=== PATIENT | female | born 1960 | race Caucasian/White ===

== ENCOUNTER 2016-09-28 15:50 | Inpatient (IN) | payer MEDICARE, OTHER ==
[2016-09-28] MEDS ORDERED: HYDROmorphone 1 MG/ML 1 ML SYRINGE IVP STA (16:22)
[2016-09-28] MEDS ORDERED: SODIUM CHLORIDE 0.9% 1,000 ML IV STA ×2 (16:22→17:25)
[2016-09-28] MEDS ORDERED: ONDANSETRON 4 MG/2 ML VIAL IVP STA (16:22)
--- NOTE | 2016-09-28 16:40 | ED ---
General Adult HPI - General Chief complaint: Dizziness Stated complaint: Chest Pain Time Seen by Provider: 09/28/16 16:00 Source: patient Mode of arrival: wheelchair Limitations: no limitations - History of Present Illness Initial comments: The patient is a 56-year-old female who presents to ED with a chief complaint of abdominal pain. Patient states that the pain is located in the epigastric area and right upper quadrant. Patient states the pain has been present over the course the past 3-4 days. She describes the pain as achy in nature. Patient notes that she's also been feeling more weak over the course of the past month. The patient states that she has had worsening dyspnea with exertion over this time. The patient states that she has an occasional fluttering sensation in her chest as well. She denies any overt chest pain. Patient does have an extensive medical history including several blood clots. Patient has an IVC filter in place. Patient is currently taking Coumadin. Patient has a history of stent placement in the left iliac with multiple revisions. Patient has a history of stent 4 placed within the heart. Patient denies any fevers or chills. She does state that it's been more difficult for her to eat. She states that she has nausea every time that she eats. She's had several episodes of vomiting as well. Patient denies any diarrhea. Patient denies any alcohol use. Patient was hospitalized last year with similar symptoms. Noted to have low potassium and magnesium at that point in time. - Related Data Home Medications Medication Instructions Recorded Confirmed Gabapentin 800 mg PO BID 12/14/13 09/28/16 Insulin Glargine [Lantus] 70 unit SQ QAM 12/14/13 09/28/16 Nitroglycerin Sl Tabs [Nitrostat] 0.4 mg SUBLINGUAL Q5M PRN 12/14/13 09/28/16 DULoxetine HCL [Cymbalta] 30 mg PO QAM 07/15/14 09/28/16 Metoprolol Tartrate [Lopressor] 12.5 mg PO DAILY 07/15/14 09/28/16 Furosemide 20 mg PO QAM 05/02/15 09/28/16 Hydrocodone/Acetaminophen 1 tab PO Q6H PRN 05/02/15 09/28/16 [Hydrocodon-Acetaminophn 10-325] Isosorbide Mononitrate ER [Imdur] 30 mg PO QAM 05/02/15 09/28/16 Ergocalciferol [Vitamin D2 50,000 unit PO [id number] 08/26/15 09/28/16 (DRISDOL)] Insulin Lispro [humaLOG Kwikpen] 18 unit SQ AC-TID 08/26/15 09/28/16 metFORMIN HCL 1,000 mg PO BID 08/26/15 09/28/16 Lisinopril [Zestril] 2.5 mg PO QAM 09/13/15 09/28/16 Aspirin EC [Ecotrin Low Dose] 81 mg PO DAILY 12/23/15 09/28/16 Rosuvastatin [Crestor] 10 mg PO HS 12/23/15 09/28/16 Warfarin [Coumadin] 2.5 mg PO TUFR 12/23/15 09/28/16 Warfarin [Coumadin] 7.5 mg PO SUMOWETHSA 12/23/15 09/28/16 Clopidogrel [Plavix] 75 mg PO DAILY 09/28/16 09/28/16 Potassium Chloride ER [K-Dur 20] 20 meq PO BID 09/28/16 09/28/16 traMADol HCL [Ultram] 100 mg PO Q8H PRN 09/28/16 09/28/16 Allergies Allergy/AdvReac Type Severity Reaction Status Date / Time No Known Allergies Allergy Verified 09/28/16 16:59 Review of Systems ROS Statement: Those systems with pertinent positive or pertinent negative responses have been documented in the HPI. ROS Other: All systems not noted in ROS Statement are negative. Constitutional: Reports: weakness. Denies: fever, chills Eyes: Denies: eye pain, eye discharge, vision change ENT: Denies: ear pain, throat pain, dental pain Respiratory: Denies: cough, dyspnea, wheezes Cardiovascular: Reports: palpitations, dyspnea on exertion. Denies: chest pain , syncope, paroxysmal nocturnal dyspnea Endocrine: Reports: fatigue Gastrointestinal: Reports: abdominal pain, nausea, vomiting. Denies: diarrhea, constipation, hematemesis, melena Genitourinary: Denies: urgency, dysuria, frequency, hematuria Musculoskeletal: Denies: back pain Skin: Denies: rash, lesions Neurological: Reports: weakness, paresthesias (throughout all extremities). Denies: headache Psychiatric: Denies: anxiety Past Medical History Past Medical History: Coronary Artery Disease (CAD), Chest Pain / Angina, COPD, Diabetes Mellitus, Deep Vein Thrombosis (DVT), GERD/Reflux, Hyperlipidemia, Hypertension, Myocardial Infarction (AR), Osteoarthritis (OA), Pulmonary Embolus (PE) Additional Past Medical History / Comment(s): Stomach pain.Mutiple DVT, mesentaric thrombosis x2,hx GENITAL WARTS, neuropathy,pad,chronic pain syndrome, ddd lumbar region w/radiculopathy, fell jun 2015 tore rt rotator cuff, pancreatitis,recent uti, non alcoholic fatty liver, poly neuropathy Last Myocardial Infarction Date:: 2010 History of Any Multi-Drug Resistant Organisms: None Reported Past Surgical History: Adenoidectomy, Section, Heart Catheterization, Heart Catheterization With Stent, Orthopedic Surgery, Tubal Ligation Additional Past Surgical History / Comment(s): 11 Stents in left leg, fistula left thigh, full mouth teeth extraction, TRAPEASE VENA CAVA FILTER, carpel tunnel, heart stents x3 rca and lad, tumor removal from uterus. Genital warts removed. Past Anesthesia/Blood Transfusion Reactions: No Reported Reaction Date of Last Stent Placement:: 2015 Past Psychological History: Depression Additional Psychological History / Comment(s): Depression r/t health issues. Smoking Status: Current every day smoker Past Alcohol Use History: None Reported Additional Past Alcohol Use History / Comment(s): STARTED SMOKING AT AGE 23. smoked 1/2-1 ppd, quit Apr 2016. Past Drug Use History: None Reported - Past Family History Mother Family Medical History: Cancer, Congestive Heart Failure (CHF), Diabetes Mellitus, Myocardial Infarction (AR) Father Family Medical History: Myocardial Infarction (AR) Sister(s) Family Medical History: Myocardial Infarction (AR) Son(s) Family Medical History: Deep Vein Thrombosis (DVT), Pulmonary Embolus General Exam Limitations: no limitations General appearance: alert, in no apparent distress Head exam: Present: atraumatic, normocephalic Eye exam: Present: normal appearance, PERRL, EOMI. Absent: scleral icterus, conjunctival injection Pupils: Present: normal accommodation ENT exam: Present: normal exam, mucous membranes dry Neck exam: Present: normal inspection Respiratory exam: Present: normal lung sounds bilaterally, chest wall tenderness (left upper chest). Absent: respiratory distress, wheezes, rales, rhonchi, stridor Cardiovascular Exam: Present: regular rate, normal rhythm. Absent: bradycardia , tachycardia GI/Abdominal exam: Present: soft, tenderness (tenderness in the epigastric region and RUQ). Absent: guarding, rebound Extremities exam: Present: normal inspection, full ROM Neurological exam: Present: alert, oriented X3 Psychiatric exam: Present: normal affect Skin exam: Present: warm, dry, intact Course Vital Signs 09/28/16 09/28/16 15:52 18:14 Temperature 97.8 F 98.4 F Pulse Rate 87 75 Respiratory 18 20 Rate Blood Pressure 125/78 119/70 O2 Sat by Pulse 99 96 Oximetry EKG Findings - EKG Comments: EKG Findings:: EKG demonstrates sinus R with a rate of 76. There are no concerning ST T changes the ID and QRS intervals are within normal limits. - EKG Results: EKG: interpreted by GRACE Medical Decision Making - Medical Decision Making Patient is a 56-year-old female who presents to the ED with a chief complaint of fatigue. Patient also complaining of abdominal pain. Pain is located in the epigastric region as well as the right upper quadrant. Patient cites nausea and vomiting associated with her pain. Patient denies any fevers or chills. Patient does have gallbladder. No history of cholecystitis. Patient has no swelling of her lower extremities. Patient does take Lasix on a regular basis. Consider possible electrolyte abnormalities. We'll check a TSH as well. Patient noting fluttering sensation in left upper chest that present for 3 days. We'll check troponin 1. Check BMP given the patient seems to be having worsening dyspnea with exertion. Patient does have history of blood clots with IVC filter. She is on Coumadin. We'll check PT/INR. Chest x-ray. Start patient on IV fluids. The patient with Dilaudid and Zofran for pain and nausea control. Check lactic acid given the patient has a history of mesenteric ischemia. 5:45 PM Patient noted to have elevated blood glucose. Will check Venous Blood Gas to ensure that patient is not in DKA. Patient noted to have elevated LFTs and Lipase. Concern for possible cholecystitis or gallstone pancreatitis. Bolus patient with IVF at 500cc/hr. Keep patient NPO. A/W Ultrasound. 6:27 PM Updated patient of findings. Ultrasound demonstrates no evidence of gallbladder wall thickening. Suspect that patient is suffering from gallstone pancreatitis. Patient notes that she did not take any of her insulin today. Will dose with Regular Insulin 10 units. 6:[address] Rosenberg, who accepts admission of patient. She requests that the patient be placed on Levaquin and Flagyl. She has requested that Dr. Maldonado be placed on consult from General Surgery. - Lab Data Result diagrams: 09/28/16 16:40 09/28/16 16:40 Lab Results 09/28/16 09/28/16 09/28/16 Range/Units 16:40 16:40 16:40 WBC 10.5 (3.8-10.6) k/uL RBC 5.26 (3.80-5.40) m/uL Hgb 15.2 (11.4-16.0) gm/dL Hct 45.3 (34.0-46.0) % MCV 86.0 (80.0-100.0) fL MCH 28.9 (25.0-35.0) pg MCHC 33.6 (31.0-37.0) g/dL RDW 13.9 (11.5-15.5) % Plt Count 179 (150-450) k/uL Neutrophils % 69 % Lymphocytes % 24 % Monocytes % 4 % Eosinophils % 1 % Basophils % 1 % Neutrophils # 7.2 (1.3-7.7) k/uL Lymphocytes # 2.6 (1.0-4.8) k/uL Monocytes # 0.4 (0-1.0) k/uL Eosinophils # 0.1 (0-0.7) k/uL Basophils # 0.1 (0-0.2) k/uL PT (9.0-12.0) sec INR (<1.1) Sodium 126 L (137-145) mmol/L Potassium 4.2 (3.5-5.1) mmol/L Chloride 87 L (98-107) mmol/L Carbon Dioxide 23 (22-30) mmol/L Anion Gap 16 mmol/L BUN 7 (7-17) mg/dL Creatinine 0.88 (0.52-1.04) mg/dL Est GFR (MDRD) Af Amer >60 (>60 ml/min/1.73 sqM) Est GFR (MDRD) Non-Af >60 (>60 ml/min/1.73 sqM) Glucose 609 H* (74-99) mg/dL Calcium 9.2 (8.4-10.2) mg/dL Magnesium 1.4 L (1.6-2.3) mg/dL Total Bilirubin 0.9 (0.2-1.3) mg/dL AST 51 H (14-36) U/L ALT 65 H (9-52) U/L Alkaline Phosphatase 69 (38-126) U/L Troponin I (0.000-0.034) ng/mL NT-Pro-B Natriuret Pep 145 pg/mL Total Protein 6.9 (6.3-8.2) g/dL Albumin 4.0 (3.5-5.0) g/dL Lipase 1117 H (23-300) U/L TSH 2.130 (0.465-4.680) mIU/L Urine Color Urine Appearance (Clear) Urine pH (5.0-8.0) Ur Specific Register (1.001-1.035) Urine Protein (Negative) Urine Glucose (UA) (Negative) Urine Ketones (Negative) Urine Blood (Negative) Urine Nitrate (Negative) Urine Bilirubin (Negative) Urine Urobilinogen (<2.0) mg/dL Ur Leukocyte Esterase (Negative) 09/28/16 09/28/16 09/28/16 Range/Units 16:40 16:40 17:30 WBC (3.8-10.6) k/uL RBC (3.80-5.40) m/uL Hgb (11.4-16.0) gm/dL Hct (34.0-46.0) % MCV (80.0-100.0) fL MCH (25.0-35.0) pg MCHC (31.0-37.0) g/dL RDW (11.5-15.5) % Plt Count (150-450) k/uL Neutrophils % % Lymphocytes % % Monocytes % % Eosinophils % % Basophils % % Neutrophils # (1.3-7.7) k/uL Lymphocytes # (1.0-4.8) k/uL Monocytes # (0-1.0) k/uL Eosinophils # (0-0.7) k/uL Basophils # (0-0.2) k/uL PT 42.0 H (9.0-12.0) sec INR 4.3 (<1.1) Sodium (137-145) mmol/L Potassium (3.5-5.1) mmol/L Chloride (98-107) mmol/L Carbon Dioxide (22-30) mmol/L Anion Gap mmol/L BUN (7-17) mg/dL Creatinine (0.52-1.04) mg/dL Est GFR (MDRD) Af Amer (>60 ml/min/1.73 sqM) Est GFR (MDRD) Non-Af (>60 ml/min/1.73 sqM) Glucose (74-99) mg/dL Calcium (8.4-10.2) mg/dL Magnesium (1.6-2.3) mg/dL Total Bilirubin (0.2-1.3) mg/dL AST (14-36) U/L ALT (9-52) U/L Alkaline Phosphatase (38-126) U/L Troponin I <0.012 (0.000-0.034) ng/mL NT-Pro-B Natriuret Pep pg/mL Total Protein (6.3-8.2) g/dL Albumin (3.5-5.0) g/dL Lipase (23-300) U/L TSH (0.465-4.680) mIU/L Urine Color Light Yellow Urine Appearance Clear (Clear) Urine pH 5.0 (5.0-8.0) Ur Specific Register 1.016 (1.001-1.035) Urine Protein Negative (Negative) Urine Glucose (UA) 4+ H (Negative) Urine Ketones Negative (Negative) Urine Blood Negative (Negative) Urine Nitrate Negative (Negative) Urine Bilirubin Negative (Negative) Urine Urobilinogen <2.0 (<2.0) mg/dL Ur Leukocyte Esterase Negative (Negative) Disposition Clinical Impression: Gallstone pancreatitis, Hypomagnesemia, Hyperglycemia Disposition: ADMITTED IP TO THIS [facility] Condition: Good Time of Disposition: 18:38 Decision to Admit Reason: Admit from EC Decision Date: 09/28/16 Decision Time: 18:38
[2016-09-28 16:58] LABS: Basophils # (A) 0.1 k/uL (0-0.2); Basophils % (A) 1 %; CH 29.7; CHCM 34.7; Eosinophils # (A) 0.1 k/uL (0-0.7); Eosinophils % (A) 1 %; HCT 45.3 % (34.0-46.0); HDW 2.85; HGB 15.2 gm/dL (11.4-16.0); Luc # (Auto) 0.11; Luc % (Auto) 1; Lymphocytes # (A) 2.6 k/uL (1.0-4.8); Lymphocytes % (A) 24 %; MCH 28.9 pg (25.0-35.0); MCHC 33.6 g/dL (31.0-37.0); Mean Platelet Volume 8.6; Monocytes # (A) 0.4 k/uL (0-1.0); Monocytes % (A) 4 %; Neutrophils # (A) 7.2 k/uL (1.3-7.7); Neutrophils % (A) 69 %; RBC 5.26 m/uL (3.80-5.40); RDW 13.9 % (11.5-15.5); WBC 10.5 k/uL (3.8-10.6); WBC (Perox) 10.13
[2016-09-28 17:04] LABS: INR 4.3 (<1.1)
--- NOTE | 2016-09-28 17:04 | XR ---
EXAMINATION TYPE: XR chest 2V DATE OF EXAM: 09/28/2016 5:00 PM COMPARISON: 12/23/2015 HISTORY: Short of breath and chest pain TECHNIQUE: Frontal and lateral views of the chest are obtained. FINDINGS: Heart is normal. Lungs are clear. There is no pleural effusion. There are no hilar masses. There are chest leads. Thoracic aorta is atheromatous. IMPRESSION: No active cardiopulmonary disease. No change.
[2016-09-28 17:07] LABS: ALT 65 U/L (9-52); AST 51 U/L (14-36); Alkaline Phosphatase 69 U/L (38-126); Anion Gap 16 mmol/L; Blood Urea Nitrogen 7 mg/dL (7-17); Calcium 9.2 mg/dL (8.4-10.2); Carbon Dioxide 23 mmol/L (22-30); Chloride 87 mmol/L (98-107); Magnesium 1.4 mg/dL (1.6-2.3); Non-African American GFR(MDRD) >60 (>60 ml/min/1.73 sqM); Potassium 4.2 mmol/L (3.5-5.1); Sodium 126 mmol/L (137-145); Total Bilirubin 0.9 mg/dL (0.2-1.3); Total Protein 6.9 g/dL (6.3-8.2)
[2016-09-28 17:12] LABS: Glucose 609 mg/dL (74-99)
[2016-09-28 17:58] LABS: Appearance,Urine Clear (Clear); Bilirubin,Urine Negative (Negative); Glucose,Urine (UA) 4+ (Negative); Ketones,Urine Negative (Negative); Leukocyte Esterase,Urine Negative (Negative); Nitrite,Urine Negative (Negative); Protein,Urine Negative (Negative); Specific Gravity,Urine 1.016 (1.001-1.035); UA Billing (MACRO vs. MICRO) CHEM; Urobilinogen,Urine <2.0 mg/dL (<2.0)
--- NOTE | 2016-09-28 18:10 | US ---
EXAMINATION TYPE: US gallbladder DATE OF EXAM: 09/28/2016 5:50 PM COMPARISON: US in PACS CLINICAL HISTORY: Pain. ABD Pain EXAM MEASUREMENTS: Liver Length: 19.3 cm Gallbladder Wall: 0.2 cm CBD: 0.4 cm Right Kidney: 11.3 x 4.3 x 4.0 cm TECHNOLOGIST IMPRESSION: Pancreas: wnl, tail obscured by overlying bowel gas Liver: Enlarged, heterogeneous Gallbladder: wnl Evidence for sonographic Gaines's sign: No CBD: wnl Right Kidney: wnl IMPRESSION: No gallstones or dilated ducts. No focal liver defect.
[2016-09-28] MEDS ORDERED: INSULIN REGULAR 100 UNIT/ML VIAL IV ONE (18:28)
[2016-09-28 18:31] LABS: VBG PH 7.38 (7.31-7.41)
[2016-09-28] MEDS ORDERED: LEVOFLOXACIN 750MG-D5W PMX 750 MG in DEXTROSE/WATER 1 150ML.BAG IVPB STA (18:34)
[2016-09-28] MEDS ORDERED: metroNIDAZOLE-NS PMX 500 MG in SALINE 1 100ML.BAG IVPB STA (18:34)
[2016-09-28] MEDS ORDERED: ONDANSETRON 4 MG/2 ML VIAL IVP PRN (18:39)
[2016-09-28] MEDS ORDERED: NALOXONE 0.4 MG/ML 1 ML VIAL IV PRN (18:39)
[2016-09-28 20:05] LABS: Glucose,Whole Blood 378 mg/dL (75-99)
[2016-09-28] MEDS: metFORMIN 500 MG TAB PO SCH (20:27)
[2016-09-28] MEDS: GABAPENTIN 400 MG CAP PO SCH (20:28)
[2016-09-28] MEDS: POTASSIUM CHLORIDE ER 20 MEQ TAB.ER PO SCH (20:28)
[2016-09-28] MEDS: INSULIN LISPRO (humaLOG) 300 UNIT/3 ML VIAL SQ SCH (20:28)
[2016-09-28] MEDS: HYDROmorphone 1 MG/ML 1 ML SYRINGE IV PRN (20:59)
[2016-09-28] MEDS: SODIUM CHLORIDE 0.9% 1,000 ML IV SCH (20:59)
[2016-09-28] MEDS ORDERED: ATORVASTATIN 20 MG TAB PO SCH (21:00)
[2016-09-28 22:24] LABS: Glucose,Whole Blood 288 mg/dL (75-99)
[2016-09-28 23:43] VITALS: BMI 31.1
[2016-09-29] MEDS: SODIUM CHLORIDE 0.9% 1,000 ML IV SCH ×4 (00:20→20:43)
[2016-09-29] MEDS: HYDROmorphone 1 MG/ML 1 ML SYRINGE IV PRN ×2 (04:28→14:52)
[2016-09-29 05:50] LABS: Basophils # (A) 0.1 k/uL (0-0.2); Basophils % (A) 1 %; CH 29.6; CHCM 35.2; Eosinophils # (A) 0.2 k/uL (0-0.7); Eosinophils % (A) 2 %; HCT 37.5 % (34.0-46.0); HDW 2.86; HGB 13.1 gm/dL (11.4-16.0); Luc # (Auto) 0.07; Luc % (Auto) 1; Lymphocytes # (A) 1.8 k/uL (1.0-4.8); Lymphocytes % (A) 24 %; MCH 29.5 pg (25.0-35.0); MCHC 34.9 g/dL (31.0-37.0); MCV 84.3 fL (80.0-100.0); Mean Platelet Volume 9.1; Monocytes # (A) 0.3 k/uL (0-1.0); Monocytes % (A) 4 %; Neutrophils # (A) 5.2 k/uL (1.3-7.7); Neutrophils % (A) 68 %; RBC 4.45 m/uL (3.80-5.40); RDW 13.9 % (11.5-15.5); WBC 7.6 k/uL (3.8-10.6); WBC (Perox) 7.83
[2016-09-29 06:02] LABS: INR 3.8 (<1.1); Prothrombin Time 37.3 sec (9.0-12.0)
[2016-09-29 06:28] LABS: ALT 58 U/L (9-52); AST 37 U/L (14-36); Alkaline Phosphatase 52 U/L (38-126); Anion Gap 8 mmol/L; Blood Urea Nitrogen 6 mg/dL (7-17); Calcium 8.4 mg/dL (8.4-10.2); Carbon Dioxide 26 mmol/L (22-30); Chloride 100 mmol/L (98-107); Glucose 282 mg/dL (74-99); Magnesium 1.3 mg/dL (1.6-2.3); Non-African American GFR(MDRD) >60 (>60 ml/min/1.73 sqM); Potassium 4.4 mmol/L (3.5-5.1); Sodium 134 mmol/L (137-145); Total Bilirubin 0.9 mg/dL (0.2-1.3); Total Protein 5.7 g/dL (6.3-8.2)
[2016-09-29 07:56] LABS: Glucose,Whole Blood 291 mg/dL (75-99)
[2016-09-29] MEDS: INSULIN LISPRO (humaLOG) 300 UNIT/3 ML VIAL SQ SCH ×7 (08:14→20:42)
[2016-09-29] MEDS: metFORMIN 500 MG TAB PO SCH ×2 (08:16→17:43)
[2016-09-29] MEDS ORDERED: CLOPIDOGREL 75 MG TAB PO SCH (09:00)
[2016-09-29] MEDS: POTASSIUM CHLORIDE ER 20 MEQ TAB.ER PO SCH ×2 (09:19→20:00)
[2016-09-29] MEDS: GABAPENTIN 400 MG CAP PO SCH ×2 (09:19→20:00)
[2016-09-29] MEDS: ASPIRIN 81 MG CHEW PO SCH (09:19)
[2016-09-29] MEDS: FUROSEMIDE 20 MG TAB PO SCH (09:20)
[2016-09-29] MEDS ORDERED: RX INFO: IV CONTRAST WAS GIVEN 1 EACH MISC MISCELLANE PRN (09:28)
--- NOTE | 2016-09-29 09:40 | P.GSCN ---
History of Present Illness Consult date: 09/29/16 Reason for Consult: Pancreatitis History of present illness: Patient hospitalized with complaints of upper abdominal pain. Pain radiates to the mid back. Slightly worse in the right upper quadrant and left. She is found have elevated pancreatic and liver enzymes. She is a history of diabetes and clotting disorder. She is on Coumadin. INR was elevated. She had an ultrasound which did not show any gallstones however. She has been having nausea and vomiting over the last week or so. Appetite is diminished. Denies any change in the color of her skin urine or stool. She describes some unintentional weight loss over the last year or so. Questionable history of pancreatitis previously. Was never told she had gallstones. She does have a history of mesenteric thrombosis reportedly. Review of Systems The patient denies any acute changes in his vision or hearing, no dysphagia or odynophagia, no chest pain or shortness of breath, no dysuria or hematuria, no headache, no runny nose, no rectal bleeding or melena Past Medical History Past Medical History: Coronary Artery Disease (CAD), Chest Pain / Angina, COPD, Diabetes Mellitus, Deep Vein Thrombosis (DVT), GERD/Reflux, Hyperlipidemia, Hypertension, Myocardial Infarction (OR), Osteoarthritis (OA), Pulmonary Embolus (PE) Additional Past Medical History / Comment(s): Stomach pain.Mutiple DVT, mesentaric thrombosis x2,hx GENITAL WARTS, neuropathy,pad,chronic pain syndrome, ddd lumbar region w/radiculopathy, fell jun 2015 tore rt rotator cuff, pancreatitis, uti, non alcoholic fatty liver, poly neuropathy Last Myocardial Infarction Date:: 2010 History of Any Multi-Drug Resistant Organisms: None Reported Past Surgical History: Adenoidectomy, Section, Heart Catheterization, Heart Catheterization With Stent, Orthopedic Surgery, Tubal Ligation Additional Past Surgical History / Comment(s): 11 Stents in left leg, fistula left thigh, full mouth teeth extraction, TRAPEASE VENA CAVA FILTER, carpel tunnel, heart stents x4 rca and lad, tumor removal from uterus. Genital warts removed. Past Anesthesia/Blood Transfusion Reactions: No Reported Reaction Date of Last Stent Placement:: May 2016 Past Psychological History: Depression Additional Psychological History / Comment(s): Depression r/t health issues. Smoking Status: Current every day smoker Past Alcohol Use History: None Reported Additional Past Alcohol Use History / Comment(s): STARTED SMOKING AT AGE 23. smoked 1/2-1 ppd Past Drug Use History: None Reported - Past Family History Mother Family Medical History: Cancer, Congestive Heart Failure (CHF), Diabetes Mellitus, Myocardial Infarction (OR) Father Family Medical History: Myocardial Infarction (OR) Sister(s) Family Medical History: Myocardial Infarction (OR) Son(s) Family Medical History: Deep Vein Thrombosis (DVT), Pulmonary Embolus Medications and Allergies Home Medications Medication Instructions Recorded Confirmed Type Gabapentin 800 mg PO BID 12/14/13 09/28/16 History Insulin Glargine [Lantus] 70 unit SQ QAM 12/14/13 09/28/16 History Nitroglycerin Sl Tabs [Nitrostat] 0.4 mg SUBLINGUAL Q5M PRN 12/14/13 09/28/16 History DULoxetine HCL [Cymbalta] 30 mg PO QAM 07/15/14 09/28/16 History Metoprolol Tartrate [Lopressor] 12.5 mg PO BID 07/15/14 09/29/16 History Furosemide 20 mg PO QAM 05/02/15 09/28/16 History Hydrocodone/Acetaminophen 1 tab PO Q6H PRN 05/02/15 09/28/16 History [Hydrocodon-Acetaminophn 10-325] Isosorbide Mononitrate ER [Imdur] 30 mg PO QAM 05/02/15 09/28/16 History Ergocalciferol [Vitamin D2 50,000 unit PO [id number] 08/26/15 09/28/16 History (MELANIE)] Insulin Lispro [humaLOG Kwikpen] 18 unit SQ AC-TID 08/26/15 09/28/16 History metFORMIN HCL 1,000 mg PO BID 08/26/15 09/28/16 History Lisinopril [Zestril] 2.5 mg PO QAM 09/13/15 09/28/16 History Aspirin EC [Ecotrin Low Dose] 81 mg PO DAILY 12/23/15 09/28/16 History Rosuvastatin [Crestor] 10 mg PO HS 12/23/15 09/28/16 History Warfarin [Coumadin] 2.5 mg PO TUFR 12/23/15 09/28/16 History Warfarin [Coumadin] 7.5 mg PO SUMOWETHSA 12/23/15 09/28/16 History Potassium Chloride ER [K-Dur 20] 20 meq PO BID 09/28/16 09/28/16 History traMADol HCL [Ultram] 100 mg PO Q8H PRN 09/28/16 09/28/16 History Allergies Allergy/AdvReac Type Severity Reaction Status Date / Time No Known Allergies Allergy Verified 09/28/16 16:59 Surgical - Exam Vital Signs Temp Pulse Resp BP Pulse Ox 97.8 F 87 18 125/78 99 09/28/16 15:52 09/28/16 15:52 09/28/16 15:52 09/28/16 15:52 09/28/16 15:52 Physical exam: General: [Well-developed, well-nourished] HEENT: Normocephalic, sclerae nonicteric Abdomen: Mild epigastric tenderness, no rebound or guarding Extremities: No edema Neuro: Alert and oriented Results - Labs 09/29/16 05:35 09/29/16 05:35 Abnormal Lab Results - Last 24 Hours (Table) 09/28/16 09/28/16 09/29/16 Range/Units 19:59 22:00 05:35 Plt Count 114 L (150-450) k/uL PT (9.0-12.0) sec Sodium (137-145) mmol/L BUN (7-17) mg/dL Glucose (74-99) mg/dL POC Glucose (mg/dL) 378 H 288 H (75-99) mg/dL Magnesium (1.6-2.3) mg/dL AST (14-36) U/L ALT (9-52) U/L Total Protein (6.3-8.2) g/dL Albumin (3.5-5.0) g/dL 09/29/16 09/29/16 09/29/16 Range/Units 05:35 05:35 07:52 Plt Count (150-450) k/uL PT 37.3 H (9.0-12.0) sec Sodium 134 L (137-145) mmol/L BUN 6 L (7-17) mg/dL Glucose 282 H (74-99) mg/dL POC Glucose (mg/dL) 291 H (75-99) mg/dL Magnesium 1.3 L (1.6-2.3) mg/dL AST 37 H (14-36) U/L ALT 58 H (9-52) U/L Total Protein 5.7 L (6.3-8.2) g/dL Albumin 3.0 L (3.5-5.0) g/dL Diabetes panel 09/29/16 Range/Units 05:35 Sodium 134 L (137-145) mmol/L Potassium 4.4 (3.5-5.1) mmol/L Chloride 100 (98-107) mmol/L Carbon Dioxide 26 (22-30) mmol/L BUN 6 L (7-17) mg/dL Creatinine 0.80 (0.52-1.04) mg/dL Glucose 282 H (74-99) mg/dL Calcium 8.4 (8.4-10.2) mg/dL AST 37 H (14-36) U/L ALT 58 H (9-52) U/L Alkaline Phosphatase 52 (38-126) U/L Total Protein 5.7 L (6.3-8.2) g/dL Albumin 3.0 L (3.5-5.0) g/dL Calcium panel 09/29/16 Range/Units 05:35 Calcium 8.4 (8.4-10.2) mg/dL Albumin 3.0 L (3.5-5.0) g/dL Pituitary panel 09/29/16 Range/Units 05:35 Sodium 134 L (137-145) mmol/L Potassium 4.4 (3.5-5.1) mmol/L Chloride 100 (98-107) mmol/L Carbon Dioxide 26 (22-30) mmol/L BUN 6 L (7-17) mg/dL Creatinine 0.80 (0.52-1.04) mg/dL Glucose 282 H (74-99) mg/dL Calcium 8.4 (8.4-10.2) mg/dL Adrenal panel 09/29/16 Range/Units 05:35 Sodium 134 L (137-145) mmol/L Potassium 4.4 (3.5-5.1) mmol/L Chloride 100 (98-107) mmol/L Carbon Dioxide 26 (22-30) mmol/L BUN 6 L (7-17) mg/dL Creatinine 0.80 (0.52-1.04) mg/dL Glucose 282 H (74-99) mg/dL Calcium 8.4 (8.4-10.2) mg/dL Total Bilirubin 0.9 (0.2-1.3) mg/dL AST 37 H (14-36) U/L ALT 58 H (9-52) U/L Alkaline Phosphatase 52 (38-126) U/L Total Protein 5.7 L (6.3-8.2) g/dL Albumin 3.0 L (3.5-5.0) g/dL Assessment and Plan (1) Pancreatitis Narrative/Plan: Patient admitted with pancreatitis. Etiology unclear at this time. We'll check CAT scan abdomen and pelvis to better evaluate the pancreatic bed biliary tree and the mesenteric vasculature. Status: Acute
[2016-09-29 10:25] LABS: Amylase 49 U/L (30-110)
[2016-09-29] MEDS: METOPROLOL TARTRATE 12.5 MG TAB PO SCH (10:28)
[2016-09-29] MEDS: LISINOPRIL 2.5 MG TAB PO SCH (10:28)
[2016-09-29] MEDS: ISOSORBIDE MONONITRATE ER 30 MG TAB.ER.24H PO SCH (10:28)
[2016-09-29] MEDS: INSULIN GLARGINE 100 UNIT/ML 10 ML VIAL SQ SCH (10:39)
[2016-09-29] MEDS: IOHEXOL 350 MG/ML 25 ML BOTTLE (ORAL USE) PO PRN ×2 (10:40→11:23)
[2016-09-29 12:15] LABS: Glucose,Whole Blood 258 mg/dL (75-99)
--- NOTE | 2016-09-29 14:16 | CT ---
EXAMINATION TYPE: CT abdomen pelvis w con DATE OF EXAM: 09/29/2016 11:48 AM COMPARISON: 09/08/2014 HISTORY: 56-year-old female with RUQ pain, pancreatitis, weight loss TECHNIQUE: Contiguous axial scanning of the abdomen and pelvis following administration of 100 ml Omn ipaque 300 IV contrast. Delayed images through the kidneys and coronal/sagittal reconstructions perf ormed. CT DLP: 1391.0 mGycm Automated exposure control for dose reduction was used. FINDINGS: Heart is normal size without pericardial effusion. Mild dependent atelectasis at the lung bases witho ut pleural effusion. Liver is upper limits of normal in size at 18.4 cm with low-attenuation suggesting fatty infiltration . Portal venous system is patent. No biliary ductal dilatation. Gallbladder, left adrenal gland, spleen, and pancreas appear within normal limits. Tiny 2 mm nonobstructive calculus lateral right kidney. Subcentimeter hypodensity posterior lower juan a e right kidney and lateral upper pole left kidney are unchanged suggestive of cysts. Symmetric excret ion of contrast by both kidneys. No dilated small bowel, free fluid, or free air. No mesenteric or retroperitoneal lymphadenopathy. Normal appendix. Oral contrast has progressed to the splenic flexure. There is scattered mild to mode rate stool. Mild circumferential wall thickening of the mid sigmoid colon, axial image 79 may relate to incomplet e distention. No pericolonic inflammatory change. Redemonstrated suprarenal IVC filter as well as an infrarenal IVC filter with IVC stent and long left and short right iliac vein stents as noted previously. Prominent varices are again noted along the a nterior lower abdominal wall and pelvis. Again, patency of these venous structures is not assessed on this exam. Mild to moderate atherosclerotic calcifications within the abdominal aorta and iliac arteries. Bladder is urine distended. Uterus and ovaries are visualized. No abnormal fluid collection in the pe lvis or pelvic lymphadenopathy. Bones: Degenerative changes of the hips and lower lumbar spine. No osseous destructive process. IMPRESSION: 1. MILD CIRCUMFERENTIAL WALL THICKENING OF THE MID SIGMOID COLON COULD RELATE TO UNDERDISTENTION OR N ONSPECIFIC COLITIS. CLINICALLY CORRELATE. 2. REDEMONSTRATED HEPATIC STEATOSIS. 3. NONOBSTRUCTIVE 2 MM RIGHT RENAL CALCULUS. 4. SUPRARENAL AND INFRARENAL IVC FILTERS WITH IVC AND ILIAC VEIN STENTS. VENOUS PATENCY IS NOT ASSESS ED ON THE CURRENT EXAM. SIMILAR PROMINENT ANTERIOR PELVIC AND LOWER ABDOMINAL WALL VARICES.
[2016-09-29] MEDS ORDERED: NITROGLYCERIN SL TABS 0.4 MG TAB SUBLINGUAL PRN (16:08)
[2016-09-29] MEDS ORDERED: traMADol 50 MG TAB PO PRN (16:08)
[2016-09-29] MEDS ORDERED: Magnesium Replacement Protocol 1 EACH MISC MISCELLANE PRN (16:09)
[2016-09-29] MEDS: MAGNESIUM SULFATE-D5W PMX 1 GM in DEXTROSE/WATER 1 100ML.BAG IVPB SCH ×3 (16:56→19:40)
[2016-09-29 16:58] LABS: Creatine Kinase MB 0.3 ng/mL (0.0-2.4)
[2016-09-29 17:27] LABS: Glucose,Whole Blood 117 mg/dL (75-99)
[2016-09-29] MEDS: HYDROcodone/APAP 10-325MG 1 EACH TAB PO PRN (20:03)
--- NOTE | 2016-09-29 20:42 | P.HPIM ---
History of Present Illness H&P Date: 09/29/16 Chief Complaint: Abdominal pain chest pain This Is a pleasant 56-year-old old lady patient of Dr. Balderas, she has underlying history of CAD, with cardiac stent in May 2016, hypertension and COPD diabetes mellitus type 2, previous multiple DVT and PE requiring chronic anticoagulation admitted to the emergency room secondary to abdominal pain with increasing right upper quadrant and generalized periumbilical pain, this associated by nausea chest discomfort radiating to the left arm. Patient's pain was persisted requiring ER emergency room evaluation for which she was found to have an elevated lipase level and elevated AST ALT. Alkaline phosphatase was normal ultrasound of the abdomen was performed Past Medical History Past Medical History: Coronary Artery Disease (CAD), Chest Pain / Angina, COPD, Diabetes Mellitus, Deep Vein Thrombosis (DVT), GERD/Reflux, Hyperlipidemia, Hypertension, Myocardial Infarction (NE), Osteoarthritis (OA), Pulmonary Embolus (PE) Additional Past Medical History / Comment(s): Stomach pain.Mutiple DVT, mesentaric thrombosis x2,hx GENITAL WARTS, neuropathy,pad,chronic pain syndrome, ddd lumbar region w/radiculopathy, fell jun 2015 tore rt rotator cuff, pancreatitis, uti, non alcoholic fatty liver, poly neuropathy Last Myocardial Infarction Date:: 2010 History of Any Multi-Drug Resistant Organisms: None Reported Past Surgical History: Adenoidectomy, Section, Heart Catheterization, Heart Catheterization With Stent, Orthopedic Surgery, Tubal Ligation Additional Past Surgical History / Comment(s): 11 Stents in left leg, fistula left thigh, full mouth teeth extraction, TRAPEASE VENA CAVA FILTER, carpel tunnel, heart stents x4 rca and lad, tumor removal from uterus. Genital warts removed. Past Anesthesia/Blood Transfusion Reactions: No Reported Reaction Date of Last Stent Placement:: May 2016 Past Psychological History: Depression Additional Psychological History / Comment(s): Depression r/t health issues. Smoking Status: Current every day smoker Past Alcohol Use History: None Reported Additional Past Alcohol Use History / Comment(s): STARTED SMOKING AT AGE 23. smoked 1/2-1 ppd Past Drug Use History: None Reported - Past Family History Mother Family Medical History: Cancer, Congestive Heart Failure (CHF), Diabetes Mellitus, Myocardial Infarction (NE) Father Family Medical History: Myocardial Infarction (NE) Sister(s) Family Medical History: Myocardial Infarction (NE) Son(s) Family Medical History: Deep Vein Thrombosis (DVT), Pulmonary Embolus Medications and Allergies Home Medications Medication Instructions Recorded Confirmed Type Gabapentin 800 mg PO BID 12/14/13 09/28/16 History Insulin Glargine [Lantus] 70 unit SQ QAM 12/14/13 09/28/16 History Nitroglycerin Sl Tabs [Nitrostat] 0.4 mg SUBLINGUAL Q5M PRN 12/14/13 09/28/16 History DULoxetine HCL [Cymbalta] 30 mg PO QAM 07/15/14 09/28/16 History Metoprolol Tartrate [Lopressor] 12.5 mg PO BID 07/15/14 09/29/16 History Furosemide 20 mg PO QAM 05/02/15 09/28/16 History Hydrocodone/Acetaminophen 1 tab PO Q6H PRN 05/02/15 09/28/16 History [Hydrocodon-Acetaminophn 10-325] Isosorbide Mononitrate ER [Imdur] 30 mg PO QAM 05/02/15 09/28/16 History Ergocalciferol [Vitamin D2 50,000 unit PO [id number] 08/26/15 09/28/16 History (DRISDOL)] Insulin Lispro [humaLOG Kwikpen] 18 unit SQ AC-TID 08/26/15 09/28/16 History metFORMIN HCL 1,000 mg PO BID 08/26/15 09/28/16 History Lisinopril [Zestril] 2.5 mg PO QAM 09/13/15 09/28/16 History Aspirin EC [Ecotrin Low Dose] 81 mg PO DAILY 12/23/15 09/28/16 History Rosuvastatin [Crestor] 10 mg PO HS 12/23/15 09/28/16 History Warfarin [Coumadin] 2.5 mg PO TUFR 12/23/15 09/28/16 History Warfarin [Coumadin] 7.5 mg PO SUMOWETHSA 12/23/15 09/28/16 History Potassium Chloride ER [K-Dur 20] 20 meq PO BID 09/28/16 09/28/16 History traMADol HCL [Ultram] 100 mg PO Q8H PRN 09/28/16 09/28/16 History Allergies Allergy/AdvReac Type Severity Reaction Status Date / Time No Known Allergies Allergy Verified 09/28/16 16:59 Physical Exam Vitals: Vital Signs Temp Pulse Resp BP BP Pulse Ox 09/29/16 16:00 19 09/29/16 15:00 98.4 F 69 19 103/62 97 09/29/16 09:45 110/64 09/29/16 08:00 20 09/29/16 07:00 97.4 F L 69 20 94/52 94/47 94 L 09/29/16 00:00 82 09/28/16 23:40 97.7 F 82 20 106/71 98 Intake and Output 09/29/16 09/29/16 09/29/16 06:59 14:59 22:59 Intake Total 0 Balance 0 Intake: Oral 0 Other: Voiding Method Toilet Toilet Toilet # Voids 1 3 Weight 90.265 kg Results CBC & Chem 7: 09/29/16 05:35 09/29/16 05:35 Labs: Abnormal Lab Results - Last 24 Hours (Table) 09/28/16 09/29/16 09/29/16 Range/Units 22:00 05:35 05:35 Plt Count 114 L (150-450) k/uL PT 37.3 H (9.0-12.0) sec Sodium (137-145) mmol/L BUN (7-17) mg/dL Glucose (74-99) mg/dL POC Glucose (mg/dL) 288 H (75-99) mg/dL Magnesium (1.6-2.3) mg/dL AST (14-36) U/L ALT (9-52) U/L Total Protein (6.3-8.2) g/dL Albumin (3.5-5.0) g/dL Lipase (23-300) U/L 09/29/16 09/29/16 09/29/16 Range/Units 05:35 05:35 07:52 Plt Count (150-450) k/uL PT (9.0-12.0) sec Sodium 134 L (137-145) mmol/L BUN 6 L (7-17) mg/dL Glucose 282 H (74-99) mg/dL POC Glucose (mg/dL) 291 H (75-99) mg/dL Magnesium 1.3 L (1.6-2.3) mg/dL AST 37 H (14-36) U/L ALT 58 H (9-52) U/L Total Protein 5.7 L (6.3-8.2) g/dL Albumin 3.0 L (3.5-5.0) g/dL Lipase 652 H (23-300) U/L 09/29/16 09/29/16 Range/Units 12:01 17:10 Plt Count (150-450) k/uL PT (9.0-12.0) sec Sodium (137-145) mmol/L BUN (7-17) mg/dL Glucose (74-99) mg/dL POC Glucose (mg/dL) 258 H 117 H (75-99) mg/dL Magnesium (1.6-2.3) mg/dL AST (14-36) U/L ALT (9-52) U/L Total Protein (6.3-8.2) g/dL Albumin (3.5-5.0) g/dL Lipase (23-300) U/L Thrombosis Risk Factor Assmnt - Choose All That Apply Any of the Below Risk Factors Present?: Yes Each Factor Represents 1 point: Abnormal pulmonary function (COPD), Age 41-60 years, Obesity (BMI >25), Varicose veins Other Risk Factors: Yes Each Risk Factor Represents 3 Points: Family history of DVT/PE, History of DVT/ PE Other congenital or acquired thrombophilia - If yes, enter type in comment: ( unk) Thrombosis Risk Factor Assessment Total Risk Factor Score: 10 Thrombosis Risk Factor Assessment Level: High Risk Assessment and Plan Plan: 1 severe abdominal pain epigastric and right upper quadrant Secondary to acute pancreatitis, gastritis . Patient lipase and amylase will be repeated tomorrow continue hydration and pain management and general surgery consultation with Dr. Avitia. Ultrasound of the gallbladder was performed showing a gallbladder wall of 0.2 cm, common bile duct within normal limits negative for Gaines's sign, no kidney stones noted no focal liver defect noted. Patient was seen by Dr. Avitia general surgery patient currently is nothing by mouth lipase is currently trending down clear liquid diet was started. Lipase was held in view of the elevated lipase CAT scan of the abdomen and pelvis was ordered by Dr. Maldonado showing liver that is upper limit of normal 18.4 cm with fatty infiltration, no biliary duct dilatation, bladder appears within normal limits, there is 2 mm nonobstructive calculus lateral kidneys and kidney cyst. There is also anterior and pelvic lower abdominal wall devices noted IVC filters and iliac stents noted there is also mild circumferential wall thickening of the mid sigmoid colon could be related to under distention or nonspecific colitis. Patient does not have any diarrhea at this point in note lower quadrant abdominal pain 2 chest pain with radiation of the left arm occurring on a resting position it doesn't sound ischemic in nature however she does have underlying history of CAD with cardiac stents, cardiology was requested with echocardiogram and cardiac troponins EKGs 3 diabetes mellitus type 2 with hyperglycemia: without any sign of DKA patient currently is on Lantus 70 units every morning which is maintained and patient's pre-meal insulin NovoLog is currently on hold while on clear liquid diet continue NovoLog coverage 4 advance ischemic cardiomyopathy and atherosclerotic heart disease: Patient seen cardiology on regular basis. Continue patient on current medication with metoprolol furosemide nitro isosorbide and the Crestor. 5 hypertension: Remain on metoprolol and isosorbide. 6 chronic DVT and PEs: Patient is on warfarin which is currently on hold PT/INR be done daily. There is no current evidence for hemorrhagic transformation we would restart Coumadin prior to discharge, Lovenox for DVT prophylaxis 7 COPD: A Chin is on albuterol ipratropium nebulizer up to 4 times a day. 8 hyperlipidemia: Patient remain on Crestor 20 mg daily. 9 severe gastritis: Patient will be on omeprazole 20 mg daily. 10 severe PAD: Patient seen Dr. Mancilla had an angioplasty of the left leg circulation is slightly but better no sign of infection or gangrene currently. 11 chronic neuropathy: Remain on gabapentin 800 mg twice a day. 12 DVT prophylaxis: Patient is on warfarin PT/INR be done daily. This would be bridged with Lovenox while Coumadin is on hold CODE STATUS: Full code. Expectation from this admission: Patient be in the hospital for more than 2 nights.
[2016-09-29 20:52] LABS: Glucose,Whole Blood 258 mg/dL (75-99)
[2016-09-29] MEDS: ENOXAPARIN 40 MG/0.4 ML SYRINGE SQ SCH (21:06)
[2016-09-29] MEDS: PANTOPRAZOLE 40 MG/10 ML VIAL IVP SCH (21:06)
[2016-09-29 22:38] LABS: Creatine Kinase MB 0.3 ng/mL (0.0-2.4)
[2016-09-30] MEDS: HYDROmorphone 1 MG/ML 1 ML SYRINGE IV PRN ×2 (03:22→22:18)
[2016-09-30 04:32] LABS: Basophils % (A) 1 %; CH 29.7; CHCM 34.7; Eosinophils # (A) 0.1 k/uL (0-0.7); Eosinophils % (A) 2 %; HCT 37.3 % (34.0-46.0); HDW 2.81; HGB 12.5 gm/dL (11.4-16.0); Luc # (Auto) 0.08; Luc % (Auto) 1; Lymphocytes # (A) 2.3 k/uL (1.0-4.8); Lymphocytes % (A) 40 %; MCH 28.8 pg (25.0-35.0); MCHC 33.5 g/dL (31.0-37.0); Mean Platelet Volume 8.3; Monocytes # (A) 0.2 k/uL (0-1.0); Monocytes % (A) 3 %; Neutrophils % (A) 52 %; RBC 4.34 m/uL (3.80-5.40); RDW 14.2 % (11.5-15.5); WBC 5.8 k/uL (3.8-10.6); WBC (Perox) 5.83
[2016-09-30 04:48] LABS: ALT 58 U/L (9-52); AST 67 U/L (14-36); Alkaline Phosphatase 47 U/L (38-126); Amylase <30 U/L (30-110); Anion Gap 5 mmol/L; Blood Urea Nitrogen 4 mg/dL (7-17); Calcium 8.4 mg/dL (8.4-10.2); Carbon Dioxide 27 mmol/L (22-30); Chloride 107 mmol/L (98-107); Cholesterol 103 mg/dL (<200); Glucose 137 mg/dL (74-99); HDL Cholesterol 27 mg/dL (40-60); Magnesium 2.2 mg/dL (1.6-2.3); Non-African American GFR(MDRD) >60 (>60 ml/min/1.73 sqM); Potassium 3.9 mmol/L (3.5-5.1); Sodium 139 mmol/L (137-145); Total Protein 5.5 g/dL (6.3-8.2); Triglycerides 302 mg/dL (<150)
[2016-09-30] MEDS: SODIUM CHLORIDE 0.9% 1,000 ML IV SCH ×3 (05:21→20:54)
[2016-09-30 07:22] LABS: Glucose,Whole Blood 147 mg/dL (75-99)
[2016-09-30] MEDS: INSULIN GLARGINE 100 UNIT/ML 10 ML VIAL SQ SCH (08:22)
[2016-09-30] MEDS: ENOXAPARIN 40 MG/0.4 ML SYRINGE SQ SCH (08:23)
[2016-09-30] MEDS: PANTOPRAZOLE 40 MG/10 ML VIAL IVP SCH (08:23)
[2016-09-30] MEDS: metFORMIN 500 MG TAB PO SCH ×2 (08:23→17:39)
[2016-09-30] MEDS: ISOSORBIDE MONONITRATE ER 30 MG TAB.ER.24H PO SCH (08:24)
[2016-09-30] MEDS: ASPIRIN 81 MG CHEW PO SCH (08:24)
[2016-09-30] MEDS: DULoxetine HCL 30 MG CAPSULE.DR PO SCH (08:24)
[2016-09-30] MEDS: GABAPENTIN 400 MG CAP PO SCH ×2 (08:24→22:12)
[2016-09-30] MEDS: FUROSEMIDE 20 MG TAB PO SCH (08:24)
[2016-09-30] MEDS: METOPROLOL TARTRATE 12.5 MG TAB PO SCH (08:24)
[2016-09-30] MEDS: LISINOPRIL 2.5 MG TAB PO SCH (08:24)
[2016-09-30] MEDS: POTASSIUM CHLORIDE ER 20 MEQ TAB.ER PO SCH ×2 (08:24→22:11)
[2016-09-30] MEDS: INSULIN LISPRO (humaLOG) 300 UNIT/3 ML VIAL SQ SCH ×5 (08:25→22:12)
--- NOTE | 2016-09-30 10:33 | P.PN ---
Subjective Principal diagnosis: Pancreatitis Patient doing well today. Pain is improved. Tolerating her clear liquid diet. Lipase down with 326. CT shows no definite abnormalities. Objective - Vital Signs Vital signs: Vital Signs Temp 99.1 F 09/30/16 07:00 Pulse 60 09/30/16 07:00 Resp 21 09/30/16 08:00 BP 112/67 09/30/16 07:00 Pulse Ox 97 09/30/16 07:00 Intake & Output 09/29/16 09/30/16 09/30/16 18:59 06:59 18:59 Intake Total 1040 Balance 1040 Intake: Oral 1040 Other: Voiding Method Toilet Toilet Toilet # Voids 3 1 - Exam Abdomen: Soft, nontender, nondistended - Labs CBC & Chem 7: 09/30/16 04:08 09/30/16 04:08 Labs: Abnormal Lab Results - Last 24 Hours (Table) 09/29/16 09/29/16 09/29/16 Range/Units 12:01 17:10 20:38 Plt Count (150-450) k/uL BUN (7-17) mg/dL Glucose (74-99) mg/dL POC Glucose (mg/dL) 258 H 117 H 258 H (75-99) mg/dL AST (14-36) U/L ALT (9-52) U/L Total Protein (6.3-8.2) g/dL Albumin (3.5-5.0) g/dL Triglycerides (<150) mg/dL HDL Cholesterol (40-60) mg/dL Amylase (30-110) U/L Lipase (23-300) U/L 09/30/16 09/30/16 09/30/16 Range/Units 04:08 04:08 07:14 Plt Count 122 L (150-450) k/uL BUN 4 L (7-17) mg/dL Glucose 137 H (74-99) mg/dL POC Glucose (mg/dL) 147 H (75-99) mg/dL AST 67 H (14-36) U/L ALT 58 H (9-52) U/L Total Protein 5.5 L (6.3-8.2) g/dL Albumin 2.9 L (3.5-5.0) g/dL Triglycerides 302 H (<150) mg/dL HDL Cholesterol 27 L (40-60) mg/dL Amylase <30 L (30-110) U/L Lipase 326 H (23-300) U/L Assessment and Plan (1) Pancreatitis Narrative/Plan: No biliary etiology for the patient's pancreatitis. Continue advancing diet slowly. Agree with holding Lipitor as this may have been the source of pancreatitis. Status: Acute
[2016-09-30] MEDS ORDERED: INSULIN LISPRO (humaLOG) 300 UNIT/3 ML VIAL SQ SCH (12:19)
[2016-09-30 12:27] LABS: Glucose,Whole Blood 273 mg/dL (75-99)
--- NOTE | 2016-09-30 13:51 | CONS ---
DATE OF CONSULTATION: Mr. Ybarra is a 56-year-old female who presented with nausea, abdominal discomfort and was diagnosed with pancreatitis. Cardiology consultation was requested because of her cardiac history and symptoms of chest discomfort. Patient has been followed on a regular basis by Dr. Bill, has underwent a prior percutaneous revascularizations and some in town and some out of town, most recently in May 2015, when she received stent to the LAD. She had a repeat cardiac catheterization in August 2015 revealed no evidence of progression of disease in her stented vessels. She has also history of PAD, prior percutaneous revascularizations, history of deep venous thrombosis and IVC placement. She has been complaining of nausea, abdominal pain and presented with findings consistent with pancreatitis. She has been complaining of some tingling in the arm and occasional fluttering in the chest since that time. She has mild chronic dyspnea on exertion. No peripheral edema. No clear syncope. She has some palpitation. She has no PND or orthopnea. Her coronary risk factors are remarkable for hypertension, hyperlipidemia, diabetes and chronic tobacco use. Her medications at home include: 1. Coumadin. 2. Metoprolol tartrate 12.5 mg twice a day. 3. Crestor 10 mg daily. 4. Lisinopril 2.5 mg daily. 5. Isosorbide mononitrate 30 mg daily. 6. Insulin. 7. Gabapentin. 8. Furosemide 20 mg daily. 9. Aspirin 81 mg a day. REVIEW OF SYSTEMS: RESPIRATORY SYSTEM: She had dyspnea on exertion. She has cough, chronic tobacco use. GI system: She had the nausea and the abdominal pain as noted. system: No dysuria or hematuria. Nervous system: No history of stroke or seizure. Past medical history is remarkable for DVT, pulmonary embolism and coronary artery disease. PHYSICAL EXAMINATION: She is a 56-year-old female, alert, oriented, in no apparent distress. Blood pressure 112/60 with a heart in the 60s. HEAD: Normocephalic. EYES: Sclerae anicteric. NECK: Good upstroke. No bruit. No jugular venous distention. LUNGS: Clear to auscultation. HEART: Regular rate rhythm. S1, S2, no S3, no rub. ABDOMEN: Soft, mild tenderness. Positive bowel sounds. No organomegaly. EXTREMITIES: No edema. Lab data on presentation her Lipase was 1117, down to 326 today. Her amylase is his less than 30. Her ALT on presentation was 65. It is down to 58 and her AST is a 67. Her total bilirubin is 1.0, BUN and creatinine 40 and 0.7, hemoglobin of 12.5. White blood count is 5.8. Her troponin on presentation less than 0.012 with NT-proBNP of 145. Her INR was 4.3. Her EKG revealed a sinus mechanism, normal axis and intervals, no acute changes. IMPRESSION: 1. Acute pancreatitis, improving could be related to her statin, no evidence of cholelithiasis. 2. History of coronary artery disease. 3. Chest pain appears to be atypical for ischemic heart disease. 4. Hypertension. 5. Hyperlipidemia. 6. Diabetes mellitus. 7. History of peripheral vascular disease. 8. History of deep venous thrombosis and a prior pulmonary embolism with an IVC filter. IMPRESSION: From the cardiac standpoint, I will continue on the present therapy. There is no evidence for active cardiac disease. Patient needs to be anticoagulated. We will follow her prothrombin time as an outpatient. She will follow up with Dr. Bill to see if any further cardiac work-up will be needed. Thank you for this consult. We will follow with you.
[2016-09-30] MEDS: HYDROcodone/APAP 10-325MG 1 EACH TAB PO PRN (14:54)
--- NOTE | 2016-09-30 15:36 | P.PN ---
Subjective Principal diagnosis: Acute pancreatitis This Is a pleasant 56-year-old old lady patient of Dr. Balderas, she has underlying history of CAD, with cardiac stent in May 2016, hypertension and COPD diabetes mellitus type 2, previous multiple DVT and PE requiring chronic anticoagulation admitted to the emergency room secondary to abdominal pain with increasing right upper quadrant and generalized periumbilical pain, this associated by nausea chest discomfort radiating to the left arm. Patient's pain was persisted requiring ER emergency room evaluation for which she was found to have an elevated lipase level and elevated AST ALT. Alkaline phosphatase was normal ultrasound of the abdomen was performed 09/30, her lipase has come down to 326, triglyceride is 302, ALT and AST slightly elevated, alkaline phosphatase normal, CAT scan of the abdomen and pelvis failed to reveal any gallbladder pathology or pancreatic abnormality including pancreatic hemorrhagic transformation, we'll going to restart Coumadin today and advance her diet slowly. Full liquids for dinner, low-fat diet low-carb in the morning. Objective - Vital Signs Vital signs: Vital Signs Temp 99.1 F 09/30/16 07:00 Pulse 60 09/30/16 07:00 Resp 21 09/30/16 08:00 BP 112/67 09/30/16 07:00 Pulse Ox 97 09/30/16 07:00 Intake & Output 09/29/16 09/30/16 09/30/16 18:59 06:59 18:59 Intake Total 1040 Balance 1040 Intake: Oral 1040 Other: Voiding Method Toilet Toilet Toilet # Voids 3 1 - Constitutional General appearance: Present: cooperative, no acute distress, obese - EENT Eyes: Present: anicteric sclerae, EOMI, PERRLA, dentition normal, normal appearance ENT: Present: hearing grossly normal, NA/AT, normal oropharynx - Neck Neck: Present: normal ROM. Absent: lymphadenopathy, other, rigidity, stridor, thyromegaly Thyroid: bilateral: normal size - Respiratory Respiratory: bilateral: CTA, negative: diminished, dullness, rales, rhonchi - Cardiovascular Rhythm: regular Heart sounds: normal: S1, S2 Abnormal Heart Sounds: Absent: systolic murmur, diastolic murmur, rub, S3 Gallop , S4 Gallop, click, other - Gastrointestinal General gastrointestinal: Present: normal bowel sounds, soft - Integumentary Integumentary: Present: normal, normal turgor - Neurologic Neurologic: Present: CNII-XII intact - Musculoskeletal Musculoskeletal: Present: gait normal, strength equal bilaterally - Psychiatric Psychiatric: Present: A&O x's 3, appropriate affect, intact judgment & insight - Labs CBC & Chem 7: 09/30/16 04:08 09/30/16 04:08 Labs: Abnormal Lab Results - Last 24 Hours (Table) 09/29/16 09/29/16 09/30/16 Range/Units 17:10 20:38 04:08 Plt Count 122 L (150-450) k/uL BUN (7-17) mg/dL Glucose (74-99) mg/dL POC Glucose (mg/dL) 117 H 258 H (75-99) mg/dL AST (14-36) U/L ALT (9-52) U/L Total Protein (6.3-8.2) g/dL Albumin (3.5-5.0) g/dL Triglycerides (<150) mg/dL HDL Cholesterol (40-60) mg/dL Amylase (30-110) U/L Lipase (23-300) U/L 09/30/16 09/30/16 09/30/16 Range/Units 04:08 07:14 12:11 Plt Count (150-450) k/uL BUN 4 L (7-17) mg/dL Glucose 137 H (74-99) mg/dL POC Glucose (mg/dL) 147 H 273 H (75-99) mg/dL AST 67 H (14-36) U/L ALT 58 H (9-52) U/L Total Protein 5.5 L (6.3-8.2) g/dL Albumin 2.9 L (3.5-5.0) g/dL Triglycerides 302 H (<150) mg/dL HDL Cholesterol 27 L (40-60) mg/dL Amylase <30 L (30-110) U/L Lipase 326 H (23-300) U/L Assessment and Plan Plan: 1 severe abdominal pain epigastric and right upper quadrant Secondary to acute pancreatitis, gastritis . Patient lipase and amylase will be repeated tomorrow continue hydration and pain management and general surgery consultation with Dr. Avitia. Ultrasound of the gallbladder was performed showing a gallbladder wall of 0.2 cm, common bile duct within normal limits negative for Gaines's sign, no kidney stones noted no focal liver defect noted. Patient was seen by Dr. Avitia general surgery patient currently is nothing by mouth lipase is currently trending down clear liquid diet was started. Lipitor was held in view of the elevated lipase. HIDA scan with CCK was held in view of the current pancreatitis this could be electively done should right upper quadrant symptoms recur in the future. This was discussed with Dr. Maldonado CAT scan of the abdomen and pelvis was ordered by Dr. Maldonado showing liver that is upper limit of normal 18.4 cm with fatty infiltration, no biliary duct dilatation, bladder appears within normal limits, there is 2 mm nonobstructive calculus lateral kidneys and kidney cyst. There is also anterior and pelvic lower abdominal wall devices noted IVC filters and iliac stents noted there is also mild circumferential wall thickening of the mid sigmoid colon could be related to under distention or nonspecific colitis. Patient does not have any diarrhea at this point in note lower quadrant abdominal pain 2 chest pain with radiation of the left arm occurring on a resting position it doesn't sound ischemic in nature however she does have underlying history of CAD with cardiac stents, cardiology was requested with echocardiogram and cardiac troponins EKGs 3 diabetes mellitus type 2 with hyperglycemia: without any sign of DKA patient currently is on Lantus 70 units every morning which is maintained and patient's pre-meal insulin NovoLog is currently on would be readjusted based on her requirements 75% of NovoLog from her usual 18 units 3 times a day 4 advance ischemic cardiomyopathy and atherosclerotic heart disease: Patient seen cardiology on regular basis. Continue patient on current medication with metoprolol furosemide nitro isosorbide and the Crestor. 5 hypertension: Remain on metoprolol and isosorbide. 6 chronic DVT and PEs: Patient is on warfarin which is currently on hold PT/INR be done daily. There is no current evidence for hemorrhagic transformation we would restart Coumadin prior to discharge, Lovenox for DVT prophylaxis 7 COPD: A Chin is on albuterol ipratropium nebulizer up to 4 times a day. 8 hyperlipidemia: Patient remain on Crestor 20 mg daily. 9 severe gastritis: Patient will be on omeprazole 20 mg daily. 10 severe PAD: Patient seen Dr. Mancilla had an angioplasty of the left leg circulation is slightly but better no sign of infection or gangrene currently. 11 chronic neuropathy: Remain on gabapentin 800 mg twice a day. 12 DVT prophylaxis: Patient is on warfarin PT/INR be done daily. This would be bridged with Lovenox while Coumadin is on hold CODE STATUS: Full code. Expectation from this admission: Patient be in the hospital for more than 2 nights.
[2016-09-30 17:23] LABS: Glucose,Whole Blood 214 mg/dL (75-99)
[2016-09-30 18:08] LABS: INR 1.8 (<1.1); Prothrombin Time 17.4 sec (9.0-12.0)
[2016-09-30] MEDS ORDERED: WARFARIN 7.5 MG TAB PO SCH (19:00)
[2016-09-30 22:21] LABS: Glucose,Whole Blood 125 mg/dL (75-99)
[2016-10-01] MEDS: SODIUM CHLORIDE 0.9% 1,000 ML IV SCH ×3 (00:39→13:07)
[2016-10-01] MEDS: HYDROcodone/APAP 10-325MG 1 EACH TAB PO PRN ×2 (03:34→11:50)
[2016-10-01 07:33] LABS: Glucose,Whole Blood 254 mg/dL (75-99)
[2016-10-01 07:49] VITALS: BP 129/67; PULSE 55; RESP 18; TEMP 97.1
[2016-10-01] MEDS: metFORMIN 500 MG TAB PO SCH (07:59)
[2016-10-01] MEDS: INSULIN GLARGINE 100 UNIT/ML 10 ML VIAL SQ SCH (08:05)
[2016-10-01] MEDS: INSULIN LISPRO (humaLOG) 300 UNIT/3 ML VIAL SQ SCH ×4 (08:06→13:08)
[2016-10-01] MEDS: PANTOPRAZOLE 40 MG/10 ML VIAL IVP SCH (08:07)
[2016-10-01] MEDS: ENOXAPARIN 40 MG/0.4 ML SYRINGE SQ SCH (08:07)
[2016-10-01] MEDS: DULoxetine HCL 30 MG CAPSULE.DR PO SCH (08:10)
[2016-10-01] MEDS: LISINOPRIL 2.5 MG TAB PO SCH (08:10)
[2016-10-01] MEDS: GABAPENTIN 400 MG CAP PO SCH (08:10)
[2016-10-01] MEDS: ASPIRIN 81 MG CHEW PO SCH (08:10)
[2016-10-01] MEDS: METOPROLOL TARTRATE 12.5 MG TAB PO SCH (08:10)
[2016-10-01] MEDS: ISOSORBIDE MONONITRATE ER 30 MG TAB.ER.24H PO SCH (08:10)
[2016-10-01] MEDS: POTASSIUM CHLORIDE ER 20 MEQ TAB.ER PO SCH (08:13)
[2016-10-01] MEDS: FUROSEMIDE 20 MG TAB PO SCH (08:28)
[2016-10-01 09:07] LABS: Basophils % (A) 0 %; CH 29.6; CHCM 33.6; Eosinophils # (A) 0.1 k/uL (0-0.7); Eosinophils % (A) 3 %; HCT 37.8 % (34.0-46.0); HDW 2.79; HGB 12.8 gm/dL (11.4-16.0); Luc # (Auto) 0.07; Luc % (Auto) 1; Lymphocytes # (A) 1.8 k/uL (1.0-4.8); Lymphocytes % (A) 34 %; MCH 29.9 pg (25.0-35.0); MCHC 33.8 g/dL (31.0-37.0); MCV 88.5 fL (80.0-100.0); Mean Platelet Volume 9.1; Monocytes # (A) 0.3 k/uL (0-1.0); Monocytes % (A) 6 %; Neutrophils # (A) 2.9 k/uL (1.3-7.7); Neutrophils % (A) 56 %; RBC 4.27 m/uL (3.80-5.40); RDW 14.4 % (11.5-15.5); WBC 5.1 k/uL (3.8-10.6); WBC (Perox) 5.38
[2016-10-01 09:18] LABS: INR 1.6 (<1.1); Prothrombin Time 15.6 sec (9.0-12.0)
[2016-10-01 09:29] LABS: ALT 61 U/L (9-52); AST 77 U/L (14-36); Alkaline Phosphatase 55 U/L (38-126); Amylase <30 U/L (30-110); Anion Gap 8 mmol/L; Blood Urea Nitrogen 4 mg/dL (7-17); Calcium 8.9 mg/dL (8.4-10.2); Carbon Dioxide 24 mmol/L (22-30); Chloride 105 mmol/L (98-107); Glucose 234 mg/dL (74-99); Non-African American GFR(MDRD) >60 (>60 ml/min/1.73 sqM); Potassium 4.8 mmol/L (3.5-5.1); Sodium 137 mmol/L (137-145); Total Bilirubin 0.9 mg/dL (0.2-1.3); Total Protein 5.8 g/dL (6.3-8.2)
--- NOTE | 2016-10-01 11:21 | ECHOF ---
Referral Reason:chest pain MEASUREMENTS -------- HEIGHT: 170.2 cm WEIGHT: 90.3 kg BP: 107/68 RVIDd: 2.9 cm (< 3.3) IVSd: 1.2 cm (0.6 - 1.1) LVIDd: 4.4 cm (3.9 - 5.3) LVPWd: 1.0 cm (0.6 - 1.1) IVSs: 1.9 cm LVIDs: 3.0 cm LVPWs: 2.1 cm LA Diam: 3.4 cm (2.7 - 3.8) LAESV Index (A-L): 24.22 ml/m Ao Diam: 3.5 cm (2.0 - 3.7) AV Cusp: 2.0 cm (1.5 - 2.6) LA Diam: 3.0 cm (2.7 - 3.8) MV EXCURSION: 13.189 mm (> 18.000) MV EF SLOPE: 60 mm/s (70 - 150) EPSS: 1.3 cm MV E Jesus: 0.49 m/s MV DecT: 295 ms MV A Jesus: 0.74 m/s MV E/A Ratio: 0.67 FINDINGS -------- Sinus rhythm. This was a technically good study. There is borderline concentric left ventricular hypertrophy. Overall left ventricular systolic function is low-normal with, an EF between 50 - 55 %. The right ventricle is normal in size. Normal LA size by volume 22+/-6 ml/m2. The right atrium is normal in size. The aortic valve is trileaflet and appears structurally normal. The mitral valve leaflets are mildly thickened. Mild mitral annular calcification present. There is trace mitral regurgitation. Trace tricuspid regurgitation present. Pulmonic valve appears structurally normal. The aortic root size is normal. Normal inferior vena cava with normal inspiratory collapse consistent with estimated right atrial pressure of 5 mmHg. Echo free space may represent effusion or a pericardial fat pad. CONCLUSIONS -------- 1. Sinus rhythm. 2. Mild mitral annular calcification present. 3. There is trace mitral regurgitation. 4. Trace tricuspid regurgitation present. 5. Pulmonic valve appears structurally normal. 6. The aortic root size is normal. 7. Echo free space may represent effusion or a pericardial fat pad. 8. This was a technically good study. 9. There is borderline concentric left ventricular hypertrophy. 10. Overall left ventricular systolic function is low-normal with, an EF between 50 - 55 %. 11. The right ventricle is normal in size. 12. Normal LA size by volume 22+/-6 ml/m2. 13. The right atrium is normal in size. 14. The aortic valve is trileaflet and appears structurally normal. 15. The mitral valve leaflets are mildly thickened. DIRECTOR BEHAVIORAL HEALTH: Inna Solomon RDCS
[2016-10-01 12:21] LABS: Glucose,Whole Blood 308 mg/dL (75-99)
--- NOTE | 2016-10-01 13:29 | P.PN ---
Subjective Principal diagnosis: Pancreatitis Patient doing well today. Denies pain. Lipase is now normalized. Tolerating diet. Objective - Vital Signs Vital signs: Vital Signs Temp 97.1 F L 10/01/16 07:00 Pulse 55 L 10/01/16 11:54 Resp 18 10/01/16 11:54 BP 129/67 10/01/16 07:00 Pulse Ox 99 10/01/16 07:00 Intake & Output 09/30/16 10/01/16 10/01/16 18:59 06:59 18:59 Intake Total 500 100 Balance 500 100 Weight 90.265 kg Intake: Oral 500 100 Other: Voiding Method Toilet Toilet Toilet # Voids 4 1 - Exam Abdomen: Soft, nontender, nondistended - Labs CBC & Chem 7: 10/01/16 08:11 10/01/16 08:11 Labs: Abnormal Lab Results - Last 24 Hours (Table) 09/30/16 09/30/16 09/30/16 Range/Units 17:21 17:25 22:10 Plt Count (150-450) k/uL PT 17.4 H (9.0-12.0) sec BUN (7-17) mg/dL Glucose (74-99) mg/dL POC Glucose (mg/dL) 214 H 125 H (75-99) mg/dL AST (14-36) U/L ALT (9-52) U/L Total Protein (6.3-8.2) g/dL Albumin (3.5-5.0) g/dL Amylase (30-110) U/L 10/01/16 10/01/16 10/01/16 Range/Units 07:04 08:11 08:11 Plt Count 112 L (150-450) k/uL PT (9.0-12.0) sec BUN 4 L (7-17) mg/dL Glucose 234 H (74-99) mg/dL POC Glucose (mg/dL) 254 H (75-99) mg/dL AST 77 H (14-36) U/L ALT 61 H (9-52) U/L Total Protein 5.8 L (6.3-8.2) g/dL Albumin 3.1 L (3.5-5.0) g/dL Amylase <30 L (30-110) U/L 10/01/16 10/01/16 Range/Units 08:11 12:19 Plt Count (150-450) k/uL PT 15.6 H (9.0-12.0) sec BUN (7-17) mg/dL Glucose (74-99) mg/dL POC Glucose (mg/dL) 308 H (75-99) mg/dL AST (14-36) U/L ALT (9-52) U/L Total Protein (6.3-8.2) g/dL Albumin (3.5-5.0) g/dL Amylase (30-110) U/L Assessment and Plan (1) Pancreatitis Narrative/Plan: Continue low-fat diet. Stable for discharge from my standpoint. Status: Acute
--- NOTE | 2016-10-01 20:58 | PN ---
This patient is admitted with abdominal pain and patient is being treated for acute pancreatitis. She is feeling better. Denies any nausea or vomiting. Patient is afebrile. Blood pressure is 129/67 mmHg. First and second heart sounds are normal. Lungs are clear to auscultation and percussion. Patient's echocardiogram was normal. Exact etiology of this patient's acute pancreatitis is unclear. I doubt it is secondary to any statin. Patient's liver enzymes as well as amylase and lipase are coming down. May consider doing M.R.C.P. to rule out any evidence of a retained stone.
[2016-10-02] MEDS ORDERED: PANTOPRAZOLE 40 MG TABLET PO SCH (07:30)
--- NOTE | 2016-10-02 14:50 | P.DS ---
Providers Date of admission: 09/28/16 18:44 Expected date of discharge: 10/01/16 Attending physician: Torrie Rosenberg Consults: 09/29/16 15:53 Consult Physician Routine Consulting Provider: Breanna Bacon Consult Reason/Comments: chest pain, cad Do you want consulting provider notified?: Yes Primary care physician: [facility] Course: This Is a pleasant 56-year-old old lady patient of Dr. Balderas, she has underlying history of CAD, with cardiac stent in May 2016, hypertension and COPD diabetes mellitus type 2, previous multiple DVT and PE requiring chronic anticoagulation admitted to the emergency room secondary to abdominal pain with increasing right upper quadrant and generalized periumbilical pain, this associated by nausea chest discomfort radiating to the left arm. Patient's pain was persisted requiring ER emergency room evaluation for which she was found to have an elevated lipase level and elevated AST ALT. Alkaline phosphatase was normal ultrasound of the abdomen was performed 09/30, her lipase has come down to 326, triglyceride is 302, ALT and AST slightly elevated, alkaline phosphatase normal, CAT scan of the abdomen and pelvis failed to reveal any gallbladder pathology or pancreatic abnormality including pancreatic hemorrhagic transformation, we'll going to restart Coumadin today and advance her diet slowly. Full liquids for dinner, low-fat diet low-carb in the morning. 10/01: Patient is scheduled for discharge home today. Humalog adjusted to 18 units before each meal. She is tolerating her diet without nausea or vomiting. Lipase is normal. She denies any abdominal pain. Patient will be discharged home today in stable condition. Discharge diagnoses: 1 severe abdominal pain epigastric and right upper quadrant Secondary to acute pancreatitis, gastritis 2 chest pain with radiation of the left arm occurring on a resting position it doesn't sound ischemic in nature 3 diabetes mellitus type 2 with hyperglycemia 4 advance ischemic cardiomyopathy and atherosclerotic heart disease 5 hypertension 6 chronic DVT and PEs 7 COPD 8 hyperlipidemia 9 severe gastritis 10 severe PAD 11 chronic neuropathy Impression and plan of care have been directed as dictated by the signing physician. Kerri Kevin nurse practitioner acting as scribe for signing physician. Patient Condition at Discharge: Good Plan - Discharge Summary New Discharge Prescriptions: Pantoprazole [Protonix] 40 mg PO MICHAEL-BRKFST #30 tablet. Discharge Medication List Gabapentin 800 mg PO BID 12/14/13 [History] Insulin Glargine [Lantus] 70 unit SQ QAM 12/14/13 [History] Nitroglycerin Sl Tabs [Nitrostat] 0.4 mg SUBLINGUAL Q5M PRN 12/14/13 [History] DULoxetine HCL [Cymbalta] 30 mg PO QAM 07/15/14 [History] Metoprolol Tartrate [Lopressor] 12.5 mg PO BID 07/15/14 [History] Furosemide 20 mg PO QAM 05/02/15 [History] Hydrocodone/Acetaminophen [Hydrocodon-Acetaminophn 10-325] 1 tab PO Q6H PRN [History] Isosorbide Mononitrate ER [Imdur] 30 mg PO QAM 05/02/15 [History] Ergocalciferol [Vitamin D2 (DRISDOL)] 50,000 unit PO [id number] 08/26/15 [History] Insulin Lispro [humaLOG Kwikpen] 18 unit SQ AC-TID 08/26/15 [History] metFORMIN HCL 1,000 mg PO BID 08/26/15 [History] Lisinopril [Zestril] 2.5 mg PO QAM 09/13/15 [History] Aspirin EC [Ecotrin Low Dose] 81 mg PO DAILY 12/23/15 [History] Warfarin [Coumadin] 2.5 mg PO TUFR 12/23/15 [History] Warfarin [Coumadin] 7.5 mg PO SUMOWETHSA 12/23/15 [History] Potassium Chloride ER [K-Dur 20] 20 meq PO BID 09/28/16 [History] traMADol HCL [Ultram] 100 mg PO Q8H PRN 09/28/16 [History] Pantoprazole [Protonix] 40 mg PO AC-BRKFST #30 tablet. 10/01/16 [Rx] Rosuvastatin [Crestor] 10 mg PO HS #0 10/01/16 [Rx] Follow up Appointment(s)/Referral(s): Ramirez Balderas MD [Primary Care Provider] - 10/08/16 1:30 pm (Yola DOMÍNGUEZ) Patient Instructions/Handouts: How to Stop Smoking (DC), Pancreatitis (DC), Type 2 Diabetes in Adults (DC), Basic Carbohydrate Counting (DC) Discharge Disposition: HOME SELF-CARE
[2016-10-02] MEDS ORDERED: WARFARIN 2.5 MG TAB PO SCH (18:00)
[2016-10-13] MEDS ORDERED: ERGOCALCIFEROL 50,000 UNIT CAP PO SCH (09:00)
== END 2016-10-01 15:30 | disposition home or self-care (01) | DRG 440 ==
LOC: EC 15:50 → 4MS4W 18:44
PROVIDERS: ADMIT Family Medicine; ATTEND Family Medicine
DX: K85.90 Acute pancreatitis without necrosis or infection, unspecified (principal); E11.40 Type 2 diabetes mellitus with diabetic neuropathy, unspecified; E11.51 Type 2 diabetes mellitus with diabetic peripheral angiopathy without gangrene; K29.00 Acute gastritis without bleeding; E11.65 Type 2 diabetes mellitus with hyperglycemia; K76.0 Fatty (change of) liver, not elsewhere classified; I10 Essential (primary) hypertension; E78.5 Hyperlipidemia, unspecified; E83.42 Hypomagnesemia; F17.200 Nicotine dependence, unspecified, uncomplicated; F32.9 Major depressive disorder, single episode, unspecified; G89.4 Chronic pain syndrome; I25.10 Atherosclerotic heart disease of native coronary artery without angina pectoris; I25.2 Old myocardial infarction; I25.5 Ischemic cardiomyopathy; J44.9 Chronic obstructive pulmonary disease, unspecified; K21.9 Gastro-esophageal reflux disease without esophagitis; N28.1 Cyst of kidney, acquired; M19.90 Unspecified osteoarthritis, unspecified site; M51.16 Intervertebral disc disorders with radiculopathy, lumbar region; R07.9 Chest pain, unspecified; E66.9 Obesity, unspecified; R06.00 Dyspnea, unspecified; Z68.31 Body mass index [BMI] 31.0-31.9, adult; Z79.01 Long term (current) use of anticoagulants; Z79.82 Long term (current) use of aspirin; Z79.02 Long term (current) use of antithrombotics/antiplatelets; Z79.4 Long term (current) use of insulin; Z79.899 Other long term (current) drug therapy; Z95.5 Presence of coronary angioplasty implant and graft; Z82.49 Family history of ischemic heart disease and other diseases of the circulatory system
CPT/HCPCS: 36415; 71020; 74177; 76705; 80053; 80061; 81003; 82150; 82550; 82553; 82803; 83605; 83690; 83735; 83880; 84443; 84484; 85025; 85610; 93005; 93306; 96361; 96365; 96375; 99285

== ENCOUNTER 2016-11-15 16:52 | Inpatient (IN) | payer MEDICARE, OTHER ==
[2016-11-15] MEDS ORDERED: SODIUM CHLORIDE 0.9% 1,000 ML IV STA (17:17)
[2016-11-15 17:55] LABS: Basophils # (A) 0.1 k/uL (0-0.2); Basophils % (A) 1 %; CH 29.7; CHCM 35.2; Eosinophils # (A) 0.2 k/uL (0-0.7); Eosinophils % (A) 1 %; HCT 45.9 % (34.0-46.0); HDW 3.44; Luc # (Auto) 0.16; Luc % (Auto) 1; Lymphocytes # (A) 2.8 k/uL (1.0-4.8); Lymphocytes % (A) 21 %; MCH 29.6 pg (25.0-35.0); MCHC 34.8 g/dL (31.0-37.0); MCV 84.9 fL (80.0-100.0); Mean Platelet Volume 7.9; Monocytes # (A) 0.6 k/uL (0-1.0); Monocytes % (A) 4 %; Neutrophils # (A) 9.9 k/uL (1.3-7.7); Neutrophils % (A) 72 %; Poikilocytosis Slight; RDW 14.2 % (11.5-15.5); WBC 13.7 k/uL (3.8-10.6); WBC (Perox) 13.64
[2016-11-15 18:08] LABS: INR 4.1 (<1.1); Partial Thromboplastin Time 40.6 sec (22.0-30.0); Prothrombin Time 40.3 sec (9.0-12.0)
--- NOTE | 2016-11-15 18:08 | CT ---
EXAMINATION TYPE: CT brain wo con DATE OF EXAM: 11/15/2016 6:01 PM COMPARISON: 08/28/2015 HISTORY: Patient complains of generalized weakness, syncopeal episode, and headache. CT DLP: 796 mGycm Automated exposure control for dose reduction was used. FINDINGS: The ventricles of normal size. There is no mass effect nor midline shift. There is no sign of intracr anial hemorrhage. There is a 1 cm hypodense area in the anterior cerebral falx. Calvarium is intact. 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 No acute abnorma lity.
[2016-11-15 18:09] LABS: ALT 41 U/L (9-52); AST 64 U/L (14-36); Alkaline Phosphatase 80 U/L (38-126); Anion Gap 16 mmol/L; Blood Urea Nitrogen 8 mg/dL (7-17); Calcium 10.2 mg/dL (8.4-10.2); Carbon Dioxide 30 mmol/L (22-30); Chloride 87 mmol/L (98-107); Glucose 367 mg/dL (74-99); Magnesium 1.5 mg/dL (1.6-2.3); Non-African American GFR(MDRD) >60 (>60 ml/min/1.73 sqM); Potassium 3.3 mmol/L (3.5-5.1); Sodium 133 mmol/L (137-145); Total Bilirubin 1.2 mg/dL (0.2-1.3); Total Protein 7.8 g/dL (6.3-8.2)
--- NOTE | 2016-11-15 18:09 | XR ---
EXAMINATION TYPE: XR chest 2V DATE OF EXAM: 11/15/2016 6:03 PM COMPARISON: 09/28/2016 HISTORY: Weakness and dizziness TECHNIQUE: Frontal and lateral views of the chest are obtained. FINDINGS: There is no heart failure nor confluent pneumonic infiltrate. Heart size is normal. There are chest leads. There is no sign of pleural effusion. Bony thorax is intact. IMPRESSION: No active cardiopulmonary disease. No change.
--- NOTE | 2016-11-15 18:13 | ED ---
Recheck HPI - General Chief Complaint: Recheck/Abnormal Lab/Rx Stated Complaint: Hyperglycemia Time Seen by Provider: 11/15/16 17:00 Source: patient, EMS, RN notes reviewed Mode of arrival: EMS Limitations: no limitations - History of Present Illness Initial Comments: This is a 56-year-old female who is brought in for evaluation for slurred speech some confusion. It was purely increased today. Additionally her blood sugar was 519 and later on recheck was 483. She complains of a left-sided headache she also states she feels weak and like she will fall if she stood up she complains of left-sided headache this severe no focal weakness is reported at this time. No recent fevers chills sweats no dysuria or polyuria. MD Complaint: other - Related Data Home Medications Medication Instructions Recorded Confirmed Gabapentin 800 mg PO BID 12/14/13 11/15/16 Insulin Glargine [Lantus] 70 unit SQ QAM 12/14/13 11/15/16 Nitroglycerin Sl Tabs [Nitrostat] 0.4 mg SUBLINGUAL Q5M PRN 12/14/13 11/15/16 DULoxetine HCL [Cymbalta] 30 mg PO QAM 07/15/14 11/15/16 Metoprolol Tartrate [Lopressor] 12.5 mg PO BID 07/15/14 11/15/16 Furosemide 20 mg PO QAM 05/02/15 11/15/16 Hydrocodone/Acetaminophen 1 tab PO Q6H PRN 05/02/15 11/15/16 [Hydrocodon-Acetaminophn 10-325] Isosorbide Mononitrate ER [Imdur] 30 mg PO QAM 05/02/15 11/15/16 Ergocalciferol [Vitamin D2 50,000 unit PO [id number] 08/26/15 11/15/16 (DRISDOL)] Insulin Lispro [humaLOG Kwikpen] See Protocol SQ AC-TID 08/26/15 11/15/16 metFORMIN HCL 1,000 mg PO BID 08/26/15 11/15/16 Lisinopril [Zestril] 2.5 mg PO QAM 09/13/15 11/15/16 Aspirin EC [Ecotrin Low Dose] 81 mg PO DAILY 12/23/15 11/15/16 Warfarin [Coumadin] 2.5 mg PO TUFR 12/23/15 11/15/16 Warfarin [Coumadin] 7.5 mg PO SUMOWETHSA 12/23/15 11/15/16 Potassium Chloride ER [K-Dur 20] 20 meq PO BID 09/28/16 11/15/16 traMADol HCL [Ultram] 50 mg PO Q8H PRN 09/28/16 11/15/16 Previous Rx's Medication Instructions Recorded Pantoprazole [Protonix] 40 mg PO AC-BRKFST #30 tablet. 10/01/16 Rosuvastatin [Crestor] 10 mg PO HS #0 10/01/16 Allergies Allergy/AdvReac Type Severity Reaction Status Date / Time No Known Allergies Allergy Verified 11/15/16 17:49 Review of Systems ROS Statement: Those systems with pertinent positive or pertinent negative responses have been documented in the HPI. ROS Other: All systems not noted in ROS Statement are negative. Past Medical History Past Medical History: Coronary Artery Disease (CAD), Chest Pain / Angina, COPD, Diabetes Mellitus, Deep Vein Thrombosis (DVT), GERD/Reflux, Hyperlipidemia, Hypertension, Myocardial Infarction (SD), Osteoarthritis (OA), Pulmonary Embolus (PE) Additional Past Medical History / Comment(s): Stomach pain.Mutiple DVT, mesentaric thrombosis x2,hx GENITAL WARTS, neuropathy,pad,chronic pain syndrome, ddd lumbar region w/radiculopathy, fell jun 2015 tore rt rotator cuff, pancreatitis, uti, non alcoholic fatty liver, poly neuropathy. Last Myocardial Infarction Date:: 2010 History of Any Multi-Drug Resistant Organisms: None Reported Past Surgical History: Adenoidectomy, Section, Heart Catheterization, Heart Catheterization With Stent, Orthopedic Surgery, Tubal Ligation Additional Past Surgical History / Comment(s): 11 Stents in left leg, fistula left thigh, full mouth teeth extraction, TRAPEASE VENA CAVA FILTER, carpel tunnel, heart stents x4 rca and lad, tumor removal from uterus. Genital warts removed. Past Anesthesia/Blood Transfusion Reactions: No Reported Reaction Date of Last Stent Placement:: May 2016 Past Psychological History: Depression Additional Psychological History / Comment(s): Depression r/t health issues. Smoking Status: Current every day smoker Past Alcohol Use History: None Reported Additional Past Alcohol Use History / Comment(s): STARTED SMOKING AT AGE 23. smoked 1/2-1 ppd Past Drug Use History: None Reported - Past Family History Mother Family Medical History: Cancer, Congestive Heart Failure (CHF), Diabetes Mellitus, Myocardial Infarction (SD) Father Family Medical History: Myocardial Infarction (SD) Sister(s) Family Medical History: Myocardial Infarction (SD) Son(s) Family Medical History: Deep Vein Thrombosis (DVT), Pulmonary Embolus General Exam - General Exam Comments Initial Comments: This is a well-developed well-nourished awake alert somewhat lethargic female Limitations: no limitations General appearance: alert, in no apparent distress Head exam: Present: atraumatic, normocephalic, normal inspection Eye exam: Present: normal appearance, PERRL, EOMI. Absent: scleral icterus, conjunctival injection, periorbital swelling ENT exam: Present: mucous membranes dry Neck exam: Present: normal inspection. Absent: tenderness, meningismus, lymphadenopathy Respiratory exam: Present: normal lung sounds bilaterally. Absent: respiratory distress, wheezes, rales, rhonchi, stridor Cardiovascular Exam: Present: regular rate, normal rhythm, normal heart sounds. Absent: systolic murmur, diastolic murmur, rubs, gallop, clicks GI/Abdominal exam: Present: soft, normal bowel sounds. Absent: distended, tenderness, guarding, rebound, rigid Extremities exam: Present: normal inspection, full ROM, normal capillary refill. Absent: tenderness, pedal edema, joint swelling, calf tenderness Back exam: Present: normal inspection Neurological exam: Present: alert, oriented X3, CN II-XII intact Psychiatric exam: Present: normal affect, normal mood Skin exam: Present: warm, dry, intact, normal color. Absent: rash Course Vital Signs 11/15/16 11/15/16 11/15/16 16:55 18:00 19:00 Temperature 98 F Pulse Rate 90 84 79 Respiratory 16 20 18 Rate Blood Pressure 153/84 140/86 96/56 O2 Sat by Pulse 98 99 96 Oximetry Medical Decision Making - Medical Decision Making I did discuss findings with the patient multiple family members also Dr. Rosenberg. Patient be admitted for evaluation of a TIA also hyperglycemia and loculate imbalance. - Lab Data Result diagrams: 11/15/16 17:10 11/15/16 17:10 Lab Results 11/15/16 11/15/16 11/15/16 Range/Units 17:10 17:10 17:10 WBC 13.7 H (3.8-10.6) k/uL RBC 5.40 (3.80-5.40) m/uL Hgb 16.0 D (11.4-16.0) gm/dL Hct 45.9 (34.0-46.0) % MCV 84.9 (80.0-100.0) fL MCH 29.6 (25.0-35.0) pg MCHC 34.8 (31.0-37.0) g/dL RDW 14.2 (11.5-15.5) % Plt Count 258 D (150-450) k/uL Neutrophils % 72 % Lymphocytes % 21 % Monocytes % 4 % Eosinophils % 1 % Basophils % 1 % Neutrophils # 9.9 H (1.3-7.7) k/uL Lymphocytes # 2.8 (1.0-4.8) k/uL Monocytes # 0.6 (0-1.0) k/uL Eosinophils # 0.2 (0-0.7) k/uL Basophils # 0.1 (0-0.2) k/uL Poikilocytosis Slight PT (9.0-12.0) sec INR (<1.1) APTT (22.0-30.0) sec Sodium 133 L (137-145) mmol/L Potassium 3.3 L (3.5-5.1) mmol/L Chloride 87 L (98-107) mmol/L Carbon Dioxide 30 (22-30) mmol/L Anion Gap 16 mmol/L BUN 8 (7-17) mg/dL Creatinine 0.74 (0.52-1.04) mg/dL Est GFR (MDRD) Af Amer >60 (>60 ml/min/1.73 sqM) Est GFR (MDRD) Non-Af >60 (>60 ml/min/1.73 sqM) Glucose 367 H (74-99) mg/dL POC Glucose (mg/dL) (75-99) mg/dL POC Glu Environmental [employer] Professor ID Estimated Ave Glu mg/dL mg/dL Hemoglobin A1c (4.2-6.1) % Calcium 10.2 (8.4-10.2) mg/dL Magnesium 1.5 L (1.6-2.3) mg/dL Total Bilirubin 1.2 (0.2-1.3) mg/dL AST 64 H (14-36) U/L ALT 41 (9-52) U/L Alkaline Phosphatase 80 (38-126) U/L Total Creatine Kinase 34 (30-135) U/L CK-MB (CK-2) 0.4 (0.0-2.4) ng/mL CK-MB (CK-2) Rel Index 1.2 Troponin I <0.012 (0.000-0.034) ng/mL Total Protein 7.8 (6.3-8.2) g/dL Albumin 4.3 (3.5-5.0) g/dL Acetone, Qual Negative (Negative) Influenza Type A RNA (Not Detectd) Influenza Type B (PCR) (Not Detectd) 11/15/16 11/15/16 11/15/16 Range/Units 17:10 17:10 17:10 WBC (3.8-10.6) k/uL RBC (3.80-5.40) m/uL Hgb (11.4-16.0) gm/dL Hct (34.0-46.0) % MCV (80.0-100.0) fL MCH (25.0-35.0) pg MCHC (31.0-37.0) g/dL RDW (11.5-15.5) % Plt Count (150-450) k/uL Neutrophils % % Lymphocytes % % Monocytes % % Eosinophils % % Basophils % % Neutrophils # (1.3-7.7) k/uL Lymphocytes # (1.0-4.8) k/uL Monocytes # (0-1.0) k/uL Eosinophils # (0-0.7) k/uL Basophils # (0-0.2) k/uL Poikilocytosis PT 40.3 H (9.0-12.0) sec INR 4.1 (<1.1) APTT 40.6 H (22.0-30.0) sec Sodium (137-145) mmol/L Potassium (3.5-5.1) mmol/L Chloride (98-107) mmol/L Carbon Dioxide (22-30) mmol/L Anion Gap mmol/L BUN (7-17) mg/dL Creatinine (0.52-1.04) mg/dL Est GFR (MDRD) Af Amer (>60 ml/min/1.73 sqM) Est GFR (MDRD) Non-Af (>60 ml/min/1.73 sqM) Glucose (74-99) mg/dL POC Glucose (mg/dL) (75-99) mg/dL POC Glu Environmental Conservation Professor ID Estimated Ave Glu mg/dL 283 mg/dL Hemoglobin A1c 11.5 H (4.2-6.1) % Calcium (8.4-10.2) mg/dL Magnesium (1.6-2.3) mg/dL Total Bilirubin (0.2-1.3) mg/dL AST (14-36) U/L ALT (9-52) U/L Alkaline Phosphatase (38-126) U/L Total Creatine Kinase (30-135) U/L CK-MB (CK-2) (0.0-2.4) ng/mL CK-MB (CK-2) Rel Index Troponin I (0.000-0.034) ng/mL Total Protein (6.3-8.2) g/dL Albumin (3.5-5.0) g/dL Acetone, Qual (Negative) Influenza Type A RNA Not Detected (Not Detectd) Influenza Type B (PCR) Not Detected (Not Detectd) 11/15/16 Range/Units 19:02 WBC (3.8-10.6) k/uL RBC (3.80-5.40) m/uL Hgb (11.4-16.0) gm/dL Hct (34.0-46.0) % MCV (80.0-100.0) fL MCH (25.0-35.0) pg MCHC (31.0-37.0) g/dL RDW (11.5-15.5) % Plt Count (150-450) k/uL Neutrophils % % Lymphocytes % % Monocytes % % Eosinophils % % Basophils % % Neutrophils # (1.3-7.7) k/uL Lymphocytes # (1.0-4.8) k/uL Monocytes # (0-1.0) k/uL Eosinophils # (0-0.7) k/uL Basophils # (0-0.2) k/uL Poikilocytosis PT (9.0-12.0) sec INR (<1.1) APTT (22.0-30.0) sec Sodium (137-145) mmol/L Potassium (3.5-5.1) mmol/L Chloride (98-107) mmol/L Carbon Dioxide (22-30) mmol/L Anion Gap mmol/L BUN (7-17) mg/dL Creatinine (0.52-1.04) mg/dL Est GFR (MDRD) Af Amer (>60 ml/min/1.73 sqM) Est GFR (MDRD) Non-Af (>60 ml/min/1.73 sqM) Glucose (74-99) mg/dL POC Glucose (mg/dL) 269 H (75-99) mg/dL POC Glu Environmental Conservation Professor ID Nan Wallace Estimated [address] Glu mg/dL mg/dL Hemoglobin A1c (4.2-6.1) % Calcium (8.4-10.2) mg/dL Magnesium (1.6-2.3) mg/dL Total Bilirubin (0.2-1.3) mg/dL AST (14-36) U/L ALT (9-52) U/L Alkaline Phosphatase (38-126) U/L Total Creatine Kinase (30-135) U/L CK-MB (CK-2) (0.0-2.4) ng/mL CK-MB (CK-2) Rel Index Troponin I (0.000-0.034) ng/mL Total Protein (6.3-8.2) g/dL Albumin (3.5-5.0) g/dL Acetone, Qual (Negative) Influenza Type A RNA (Not Detectd) Influenza Type B (PCR) (Not Detectd) - EKG Data -: EKG Interpreted by Me (Sinus rhythm a rate of 87 MN interval 144 QRS of 90 daily since QTC of 374/) EKG shows normal: sinus rhythm - Radiology Data Radiology results: report reviewed (Did review the imaging and reports no acute findings patient does demonstrate a lipoma which is been seen before previous CAT scans.), image reviewed Disposition Clinical Impression: TIA (transient ischemic attack), Hyperglycemia, Hypomagnesemia syndrome, Hypokalemia Disposition: ADMITTED IP TO THIS HOSP Condition: Stable
[2016-11-15 18:16] LABS: Creatine Kinase 34 U/L (30-135)
[2016-11-15 18:28] LABS: Creatine Kinase MB 0.4 ng/mL (0.0-2.4); Troponin I <0.012 ng/mL (0.000-0.034)
[2016-11-15 18:37] LABS: Hemoglobin A1C 11.5 % (4.2-6.1)
[2016-11-15] MEDS ORDERED: ACETAMINOPHEN TAB 325 MG TAB PO STA (18:52)
[2016-11-15] MEDS ORDERED: HYDROcodone/APAP 10-325MG 1 EACH TAB PO ONE (18:54)
[2016-11-15 19:05] LABS: Glucose,Whole Blood 269 mg/dL (75-99)
[2016-11-15] MEDS ORDERED: traMADol 50 MG TAB PO PRN (19:34)
[2016-11-15] MEDS ORDERED: NITROGLYCERIN SL TABS 0.4 MG TAB SUBLINGUAL PRN (19:34)
[2016-11-15 19:49] LABS: Glucose,Whole Blood 422 mg/dL (75-99)
[2016-11-15] MEDS ORDERED: POTASSIUM CHLORIDE ER 20 MEQ TAB.ER PO STA (20:06)
[2016-11-15 20:59] LABS: Glucose,Whole Blood 252 mg/dL (75-99)
[2016-11-15] MEDS ORDERED: POTASSIUM CHLORIDE ER 20 MEQ TAB.ER PO SCH (21:00)
[2016-11-15] MEDS ORDERED: POTASSIUM CHLORIDE 20 MEQ, LIDOCAINE 2% INJ 20 MG in SODIUM CHLORIDE 0.9% 100 ML IVPB SCH (21:00)
[2016-11-15] MEDS: MAGNESIUM SULFATE-D5W PMX 1 GM in DEXTROSE/WATER 1 100ML.BAG IVPB SCH (22:02)
[2016-11-15 22:13] VITALS: BMI 30.4
[2016-11-15] MEDS: INSULIN LISPRO (humaLOG) 300 UNIT/3 ML VIAL SQ SCH (22:45)
[2016-11-15] MEDS: GABAPENTIN 400 MG CAP PO SCH (22:45)
[2016-11-15] MEDS: ATORVASTATIN 20 MG TAB PO SCH (22:45)
[2016-11-15] MEDS: METOPROLOL TARTRATE 12.5 MG TAB PO SCH (22:46)
[2016-11-15] MEDS: metFORMIN 500 MG TAB PO SCH (22:46)
[2016-11-15 22:49] LABS: Appearance,Urine Cloudy (Clear); Bilirubin,Urine Negative (Negative); Glucose,Urine (UA) 4+ (Negative); Ketones,Urine Negative (Negative); Leukocyte Esterase,Urine Moderate (Negative); Mucus,Urine Rare /hpf; Nitrite,Urine Negative (Negative); PH, Urine 5.5 (5.0-8.0); Particle Count 6053; Protein,Urine Negative (Negative); RBC,Urine 10 /hpf (0-5); Specific Gravity,Urine 1.008 (1.001-1.035); Squamous Epithelial Cell,Urine 4 /hpf (0-4); UA Billing (MACRO vs. MICRO) MICRO; Urobilinogen,Urine <2.0 mg/dL (<2.0); WBC,Urine 4 /hpf (0-5)
[2016-11-16] MEDS ORDERED: HYDROcodone/APAP 10-325MG 1 EACH TAB ONE (00:30)
[2016-11-16] MEDS ORDERED: traMADol 50 MG TAB ONE (00:30)
[2016-11-16 06:28] LABS: Glucose,Whole Blood 164 mg/dL (75-99)
[2016-11-16 06:40] LABS: Basophils # (A) 0.1 k/uL (0-0.2); Basophils % (A) 1 %; CHCM 35.4; Eosinophils # (A) 0.2 k/uL (0-0.7); Eosinophils % (A) 2 %; HCT 39.3 % (34.0-46.0); HDW 3.43; HGB 13.6 gm/dL (11.4-16.0); Luc # (Auto) 0.13; Luc % (Auto) 1; Lymphocytes # (A) 3.1 k/uL (1.0-4.8); Lymphocytes % (A) 30 %; MCH 29.4 pg (25.0-35.0); MCHC 34.5 g/dL (31.0-37.0); MCV 85.3 fL (80.0-100.0); Mean Platelet Volume 7.5; Monocytes # (A) 0.4 k/uL (0-1.0); Monocytes % (A) 4 %; Neutrophils # (A) 6.3 k/uL (1.3-7.7); Neutrophils % (A) 62 %; Poikilocytosis Slight; RBC 4.61 m/uL (3.80-5.40); RDW 14.4 % (11.5-15.5); WBC 10.3 k/uL (3.8-10.6); WBC (Perox) 10.91
[2016-11-16] MEDS: MAGNESIUM SULFATE-D5W PMX 1 GM in DEXTROSE/WATER 1 100ML.BAG IVPB SCH (06:49)
[2016-11-16] MEDS: SODIUM CHLORIDE 0.9% 1,000 ML IV SCH ×3 (06:50→18:09)
[2016-11-16] MEDS: INSULIN LISPRO (humaLOG) 300 UNIT/3 ML VIAL SQ SCH ×4 (06:52→20:42)
[2016-11-16] MEDS: metFORMIN 500 MG TAB PO SCH (06:52)
[2016-11-16] MEDS: PANTOPRAZOLE 40 MG TABLET PO SCH (06:52)
[2016-11-16 07:23] LABS: Anion Gap 12 mmol/L; Blood Urea Nitrogen 8 mg/dL (7-17); Calcium 8.9 mg/dL (8.4-10.2); Carbon Dioxide 29 mmol/L (22-30); Chloride 95 mmol/L (98-107); Glucose 175 mg/dL (74-99); Magnesium 1.9 mg/dL (1.6-2.3); Non-African American GFR(MDRD) >60 (>60 ml/min/1.73 sqM); Potassium 3.2 mmol/L (3.5-5.1); Sodium 136 mmol/L (137-145)
[2016-11-16 08:37] LABS: INR 4.2 (<1.1); Prothrombin Time 40.9 sec (9.0-12.0)
[2016-11-16] MEDS: DULoxetine HCL 30 MG CAPSULE.DR PO SCH (08:53)
[2016-11-16] MEDS: ASPIRIN 81 MG CHEW PO SCH (08:59)
[2016-11-16] MEDS: FUROSEMIDE 20 MG TAB PO SCH (08:59)
[2016-11-16] MEDS: GABAPENTIN 400 MG CAP PO SCH ×2 (08:59→20:42)
[2016-11-16] MEDS: POTASSIUM CHLORIDE ER 20 MEQ TAB.ER PO SCH ×2 (09:01→20:42)
[2016-11-16] MEDS: LISINOPRIL 2.5 MG TAB PO SCH (09:02)
[2016-11-16] MEDS: ISOSORBIDE MONONITRATE ER 30 MG TAB.ER.24H PO SCH (09:02)
[2016-11-16] MEDS: METOPROLOL TARTRATE 12.5 MG TAB PO SCH ×2 (09:03→20:42)
[2016-11-16] MEDS ORDERED: POTASSIUM CHLORIDE ER 20 MEQ TAB.ER PO STA (09:06)
[2016-11-16] MEDS: HYDROcodone/APAP 10-325MG 1 EACH TAB PO PRN ×2 (09:26→20:41)
[2016-11-16] MEDS: INSULIN GLARGINE 100 UNIT/ML 10 ML VIAL SQ SCH (09:27)
[2016-11-16 12:13] LABS: Glucose,Whole Blood 166 mg/dL (75-99)
--- NOTE | 2016-11-16 14:37 | P.HPIM ---
History of Present Illness H&P Date: 11/16/16 Chief Complaint: Slurred speech blood sugar over 500 This a 56-year-old pleasant ladypatient of Dr. Balderas, she has underlying history of CAD, with cardiac stent in May 2016, hypertension and COPD diabetes mellitus type 2, previous multiple DVT and PE requiring chronic anticoagulation admitted to the emergency room secondary to slurred speech with occurred one week prior to admission, patient had a syncopal weakness for approximately one week and decided to show up in the emergency room secondary to impaired balance and gait patient was bouncing off the campbell grasping towards ambulate. Patient denies any aspiration she does have expressive aphasia, patient denies any recent foreign travel or trauma, no fever, patient denies any previous strokes in the past. 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 She was admitted with evaluation to neurology secondary to persistent left weakness with dysarthria suspicious of CVA with symptoms were present a week prior to admission Review of Systems Constitutional: Reports as per HPI, Denies anorexia, Denies chills, Denies chronic headaches, Denies chronic pain, Denies daytime sleepiness, Denies fatigue, Denies fever, Denies lethargy, Denies malaise, Denies night sweats, Denies poor appetite, Denies sweats, Denies weakness, Denies weight gain, Denies weight loss Ears, nose, mouth and throat: Reports as per HPI, Denies ant. neck pain, Denies bleeding gums, Denies dental pain, Denies dysphagia, Denies epistaxis, Denies headache, Denies hoarseness, Denies mouth pain, Denies nasal congestion, Denies nasal discharge, Denies neck fullness/pressure, Denies neck lump, Denies nose pain, Denies odynophagia, Denies post-nasal drip, Denies sinus pain, Denies sinus pressure, Denies swelling in mouth, Denies swelling in throat, Denies sore throat, Denies vertigo, Denies voice changes Cardiovascular: Reports as per HPI, Denies chest pain, Denies claudication, Denies decreased exercise tolerance, Denies dyspnea on exertion, Denies edema, Denies high blood pressure, Denies irregular heart beat, Denies leg edema, Denies lightheadedness, Denies orthopnea, Denies palpitations, Denies paroxysmal nocturnal dyspnea, Denies phlebitis, Denies rapid heart beat, Denies shortness of breath, Denies syncope Respiratory: Reports as per HPI, Denies congestion, Denies cough, Denies cough with sputum, Denies dyspnea, Denies excessive sputum, Denies hemoptysis, Denies home oxygen, Denies pain, Denies pain on inspiration, Denies pleurisy, Denies respiratory infections, Denies sleep apnea, Denies snoring, Denies wheezing Gastrointestinal: Reports as per HPI, Reports abdominal pain, Reports early satiety Genitourinary: Reports as per HPI, Denies abnormal vaginal bleeding, Denies decreased libido, Denies difficulty conceiving, Denies difficulty voiding, Denies dysmenorrhea, Denies dyspareunia, Denies dysuria, Denies flank pain, Denies genital sores, Denies hematuria, Denies hot flashes, Denies incomplete emptying, Denies kidney stones, Denies menorrhagia, Denies mixed incontinence, Denies nocturia, Denies pelvic pain, Denies post void dribbling, Denies , Denies prolapse symptoms, Denies stress incontinence, Denies urge incontinence , Denies urgency, Denies urinary frequency, Denies vaginal discharge, Denies vaginal dryness, Denies vaginal itching, Denies vaginal odor Menstruation: Reports as per HPI, Denies amenorrhea, Denies amenorrhea on BC, Denies currently menstrual, Denies cycle < 21 days, Denies cycle > 35 days, Denies cycle variable, Denies menses 1-7 days, Denies menses 8 or > days, Denies menses variable, Denies period heavy, Denies period light, Denies period normal, Denies period spotting, Denies post hysterectomy, Denies postmenopausal , Denies premenarcheal Musculoskeletal: Reports as per HPI, Denies arm numbness/tingling, Denies atrophy, Denies fractures, Denies frequent falls, Denies gait dysfunction, Denies hot joints, Denies leg numbness/tingling, Denies limitation of motion, Denies loss of height, Denies low back pain, Denies morning stiffness, Denies muscle cramps, Denies muscle weakness, Denies myalgias, Denies neck pain, Denies neck stiffness, Denies prior amputations, Denies redness of joints, Denies shooting arm pain, Denies shooting leg pain Integumentary: Reports as per HPI, Denies acne, Denies boils, Denies brittle nails, Denies change in hair/nails, Denies color changes, Denies darkening of skin, Denies depigmentation, Denies dryness, Denies foot/leg ulcers, Denies growths, Denies hirsutism, Denies lesions, Denies onychomycosis, Denies pruritus , Denies rash, Denies sores, Denies striae, Denies unusual bruising, Denies wounds Neurological: Reports as per HPI, Reports balance difficulties, Reports change in speech, Reports gait dysfunction, Reports lack of coordination, Denies aphasia, Denies ataxia, Denies burning pain, Denies change in mentation, Denies change in smell/taste, Denies confusion, Denies convulsions, Denies double vision, Denies head injury, Denies headaches, Denies hearing difficulties, Denies loss of vision, Denies memory loss, Denies migraines, Denies motor disturbance, Denies numbness, Denies paralysis, Denies paresthesias, Denies seizures, Denies sensory deficit, Denies spasticity, Denies syncope, Denies tic , Denies tingling, Denies transient paralysis, Denies tremors, Denies vertigo, Denies weakness, Denies visual changes Psychiatric: Reports as per HPI, Denies anhedonia, Denies anxiety, Denies anxiety attacks, Denies change in appetite, Denies change in libido, Denies change in sleep habits, Denies confusion, Denies depression, Denies difficulty concentrating, Denies disorientation, Denies hallucinations, Denies hopelessness , Denies hypersomnia, Denies insomnia, Denies irritability, Denies memory loss, Denies mood swings, Denies paranoia, Denies sadness/tearfulness, Denies sleep disturbances, Denies suicidal ideation Endocrine: Reports as per HPI, Reports polydipsia, Reports polyphagia, Reports polyuria, Denies cold intolerance, Denies deepening of the voice, Denies excessive sweating, Denies excessive thirst, Denies fatigue, Denies flushing, Denies heat intolerance, Denies high blood sugars, Denies increase in ring/shoe/ hat size, Denies low blood sugars, Denies nocturia, Denies palpitations, Denies proptosis, Denies recent glucocorticoid use, Denies thyroid mass, Denies weight change Hematologic/Lymphatic: Reports as per HPI, Denies easy bleeding, Denies easy bruising, Denies lymphadenopathy, Denies lymphedema, Denies thrombophilia Allergic/Immunologic: Reports as per HPI, Denies allergic rhinitis, Denies anaphylaxis, Denies angioedema, Denies gluten intolerance, Denies persistent infections, Denies seasonal allergies, Denies urticaria, Denies wheezing Past Medical History Past Medical History: Coronary Artery Disease (CAD), Chest Pain / Angina, COPD, Diabetes Mellitus, Deep Vein Thrombosis (DVT), GERD/Reflux, Hyperlipidemia, Hypertension, Myocardial Infarction (NV), Osteoarthritis (OA), Pulmonary Embolus (PE) Additional Past Medical History / Comment(s): Stomach pain.Mutiple DVT, mesentaric thrombosis x2,hx GENITAL WARTS, neuropathy,pad,chronic pain syndrome, ddd lumbar region w/radiculopathy, fell jun 2015 tore rt rotator cuff, pancreatitis, uti, non alcoholic fatty liver, poly neuropathy. Last Myocardial Infarction Date:: 2010 History of Any Multi-Drug Resistant Organisms: None Reported Past Surgical History: Adenoidectomy, Section, Heart Catheterization, Heart Catheterization With Stent, Orthopedic Surgery, Tubal Ligation Additional Past Surgical History / Comment(s): 11 Stents in left leg, fistula left thigh, full mouth teeth extraction, TRAPEASE VENA CAVA FILTER, carpel tunnel, heart stents x4 rca and lad, tumor removal from uterus. Genital warts removed. Past Anesthesia/Blood Transfusion Reactions: No Reported Reaction Date of Last Stent Placement:: May 2016 Past Psychological History: Depression Additional Psychological History / Comment(s): Depression r/t health issues. Smoking Status: Former smoker Past Alcohol Use History: None Reported Additional Past Alcohol Use History / Comment(s): STARTED SMOKING AT AGE 23. smoked 1/2-1 ppd Past Drug Use History: None Reported - Past Family History Mother Family Medical History: Cancer, Congestive Heart Failure (CHF), Diabetes Mellitus, Myocardial Infarction (NV) Father Family Medical History: Myocardial Infarction (NV) Sister(s) Family Medical History: Myocardial Infarction (NV) Son(s) Family Medical History: Deep Vein Thrombosis (DVT), Pulmonary Embolus Medications and Allergies Home Medications Medication Instructions Recorded Confirmed Type Gabapentin 800 mg PO BID 12/14/13 11/15/16 History Insulin Glargine [Lantus] 70 unit SQ QAM 12/14/13 11/15/16 History Nitroglycerin Sl Tabs [Nitrostat] 0.4 mg SUBLINGUAL Q5M PRN 12/14/13 11/15/16 History DULoxetine HCL [Cymbalta] 30 mg PO QAM 07/15/14 11/15/16 History Metoprolol Tartrate [Lopressor] 12.5 mg PO BID 07/15/14 11/15/16 History Furosemide 20 mg PO QAM 05/02/15 11/15/16 History Hydrocodone/Acetaminophen 1 tab PO Q6H PRN 05/02/15 11/15/16 History [Hydrocodon-Acetaminophn 10-325] Isosorbide Mononitrate ER [Imdur] 30 mg PO QAM 05/02/15 11/15/16 History Ergocalciferol [Vitamin D2 50,000 unit PO [id number] 08/26/15 11/15/16 History (MELANIE)] Insulin Lispro [humaLOG Kwikpen] See Protocol SQ AC-TID 08/26/15 11/15/16 History metFORMIN HCL 1,000 mg PO BID 08/26/15 11/15/16 History Lisinopril [Zestril] 2.5 mg PO QAM 09/13/15 11/15/16 History Aspirin EC [Ecotrin Low Dose] 81 mg PO DAILY 12/23/15 11/15/16 History Warfarin [Coumadin] 2.5 mg PO TUFR 12/23/15 11/15/16 History Warfarin [Coumadin] 7.5 mg PO SUMOWETHSA 12/23/15 11/15/16 History Potassium Chloride ER [K-Dur 20] 20 meq PO BID 09/28/16 11/15/16 History traMADol HCL [Ultram] 50 mg PO Q8H PRN 09/28/16 11/15/16 History Allergies Allergy/AdvReac Type Severity Reaction Status Date / Time No Known Allergies Allergy Verified 11/15/16 17:49 Physical Exam Vitals: Vital Signs Temp Pulse Pulse Pulse Resp BP BP 11/16/16 12:00 97.3 F L 73 18 126/79 11/16/16 09:16 11/16/16 08:00 97.5 F L 64 18 11/16/16 03:45 98.8 F 84 18 104/70 11/16/16 00:00 97.2 F L 73 18 96/50 11/15/16 20:40 96.9 F L 93 18 100/72 11/15/16 20:10 83 18 113/65 Pulse Ox 11/16/16 12:00 98 11/16/16 09:16 98 11/16/16 08:00 98 11/16/16 03:45 97 11/16/16 00:00 97 11/15/16 20:40 96 11/15/16 20:10 98 Intake and Output 11/15/16 11/16/16 11/16/16 22:59 06:59 14:59 Intake Total 200 Output Total 400 Balance -200 Intake: IV 200 Magnesium Sulfate-D5w Pmx 100 1 gm In Dextrose/Water 1 100ml.bag @ 100 mls/hr IVPB Q1H AGNES Rx#: [id number] Sodium Chloride 0.9% 1, 100 000 ml @ 100 mls/hr IV . Q10H AGNES Rx#:[id number] Output: Urine 400 Other: Voiding Method Toilet # Voids 2 Weight 88.2 kg 88.2 kg 88.2 kg Patient Weight 11/17/16 06:59 Weight 88.2 kg - Constitutional General appearance: cooperative, no acute distress - EENT Eyes: anicteric sclerae, PERRLA, dentition normal, normal appearance ENT: NA/AT, normal oropharynx - Neck Neck: no lymphadenopathy, normal ROM, no other, no rigidity, no stridor, no thyromegaly - Respiratory Respiratory: bilateral: CTA, negative: diminished, dullness, rales - Cardiovascular Rhythm: regular Heart sounds: normal: S1, S2 - Gastrointestinal General gastrointestinal: soft - Integumentary Integumentary: normal, normal turgor - Neurologic Neurologic: CNII-XII intact (Dysarthric), focal deficits - Musculoskeletal Musculoskeletal: left sided weakness - Psychiatric Psychiatric: A&O x's 3, appropriate affect, intact judgment & insight Results CBC & Chem 7: 11/16/16 05:49 11/16/16 05:49 Labs: Abnormal Lab Results - Last 24 Hours (Table) 11/15/16 11/15/16 11/16/16 Range/Units 20:58 22:22 05:49 PT (9.0-12.0) sec Sodium 136 L (137-145) mmol/L Potassium 3.2 L (3.5-5.1) mmol/L Chloride 95 L (98-107) mmol/L Glucose 175 H (74-99) mg/dL POC Glucose (mg/dL) 252 H (75-99) mg/dL Urine Appearance Cloudy H (Clear) Urine Glucose (UA) 4+ H (Negative) Ur Leukocyte Esterase Moderate H (Negative) Urine RBC 10 H (0-5) /hpf Urine Mucus Rare H (None) /hpf Urine Yeast (Budding) Rare H (None) /hpf 11/16/16 11/16/16 11/16/16 Range/Units 05:49 06:27 11:55 PT 40.9 H (9.0-12.0) sec Sodium (137-145) mmol/L Potassium (3.5-5.1) mmol/L Chloride (98-107) mmol/L Glucose (74-99) mg/dL POC Glucose (mg/dL) 164 H 166 H (75-99) mg/dL Urine Appearance (Clear) Urine Glucose (UA) (Negative) Ur Leukocyte Esterase (Negative) Urine RBC (0-5) /hpf Urine Mucus (None) /hpf Urine Yeast (Budding) (None) /hpf Laboratory Results WBC 10.3 k/uL (3.8-10.6) 11/16/16 05:49 RBC 4.61 m/uL (3.80-5.40) 11/16/16 05:49 Hgb 13.6 gm/dL (11.4-16.0) 11/16/16 05:49 Hct 39.3 % (34.0-46.0) 11/16/16 05:49 MCV 85.3 fL (80.0-100.0) 11/16/16 05:49 MCH 29.4 pg (25.0-35.0) 11/16/16 05:49 MCHC 34.5 g/dL (31.0-37.0) 11/16/16 05:49 RDW 14.4 % (11.5-15.5) 11/16/16 05:49 Plt Count 172 k/uL (150-450) 11/16/16 05:49 Neutrophils % 62 % 11/16/16 05:49 Lymphocytes % 30 % 11/16/16 05:49 Monocytes % 4 % 11/16/16 05:49 Eosinophils % 2 % 11/16/16 05:49 Basophils % 1 % 11/16/16 05:49 Neutrophils # 6.3 k/uL (1.3-7.7) 11/16/16 05:49 Lymphocytes # 3.1 k/uL (1.0-4.8) 11/16/16 05:49 Monocytes # 0.4 k/uL (0-1.0) 11/16/16 05:49 Eosinophils # 0.2 k/uL (0-0.7) 11/16/16 05:49 Basophils # 0.1 k/uL (0-0.2) 11/16/16 05:49 Poikilocytosis Slight 11/16/16 05:49 PT 40.9 sec (9.0-12.0) H 11/16/16 05:49 INR 4.2 (<1.1) 11/16/16 05:49 APTT 40.6 sec (22.0-30.0) H 11/15/16 17:10 Sodium 136 mmol/L (137-145) L 11/16/16 05:49 Potassium 3.2 mmol/L (3.5-5.1) L 11/16/16 05:49 Chloride 95 mmol/L (98-107) L 11/16/16 05:49 Carbon Dioxide 29 mmol/L (22-30) 11/16/16 05:49 Anion Gap 12 mmol/L 11/16/16 05:49 BUN 8 mg/dL (7-17) 11/16/16 05:49 Creatinine 0.74 mg/dL (0.52-1.04) 11/16/16 05:49 Est GFR (MDRD) Af Amer >60 (>60 ml/min/1.73 sqM) 11/16/16 05:49 Est GFR (MDRD) Non-Af >60 (>60 ml/min/1.73 sqM) 11/16/16 05:49 Glucose 175 mg/dL (74-99) H 11/16/16 05:49 POC Glucose (mg/dL) 166 mg/dL (75-99) H 11/16/16 11:55 POC Glu [employer] Professor Whitney Perez 11/16/16 11:[address] Glu mg/dL 283 mg/dL 11/15/16 17:10 Hemoglobin A1c 11.5 % (4.2-6.1) H 11/15/16 17:10 Calcium 8.9 mg/dL (8.4-10.2) 11/16/16 05:49 Magnesium 1.9 mg/dL (1.6-2.3) 11/16/16 05:49 Total Bilirubin 1.2 mg/dL (0.2-1.3) 11/15/16 17:10 AST 64 U/L (14-36) H 11/15/16 17:10 ALT 41 U/L (9-52) 11/15/16 17:10 Alkaline Phosphatase 80 U/L (38-126) 11/15/16 17:10 Total Creatine Kinase 34 U/L (30-135) 11/15/16 17:10 CK-MB (CK-2) 0.4 ng/mL (0.0-2.4) 11/15/16 17:10 CK-MB (CK-2) Rel Index 1.2 11/15/16 17:10 Troponin I <0.012 ng/mL (0.000-0.034) 11/15/16 17:10 Total Protein 7.8 g/dL (6.3-8.2) 11/15/16 17:10 Albumin 4.3 g/dL (3.5-5.0) 11/15/16 17:10 Lipase 139 U/L (23-300) 11/16/16 05:49 Urine Color Light Yellow 11/15/16 22:22 Urine Appearance Cloudy (Clear) H 11/15/16 22:22 Urine pH 5.5 (5.0-8.0) 11/15/16 22:22 Ur Specific [place] 1.008 (1.001-1.035) 11/15/16 22:22 Urine Protein Negative (Negative) 11/15/16 22:22 Urine Glucose (UA) 4+ (Negative) H 11/15/16 22:22 Urine Ketones Negative (Negative) 11/15/16 22:22 Urine Blood Negative (Negative) 11/15/16 22:22 Urine Nitrite Negative (Negative) 11/15/16 22:22 Urine Bilirubin Negative (Negative) 11/15/16 22:22 Urine Urobilinogen <2.0 mg/dL (<2.0) 11/15/16 22:22 Ur Leukocyte Esterase Moderate (Negative) H 11/15/16 22:22 Urine RBC 10 /hpf (0-5) H 11/15/16 22:22 Urine WBC 4 /hpf (0-5) 11/15/16 22:22 Ur Squamous Epith Cells 4 /hpf (0-4) 11/15/16 22:22 Urine Mucus Rare /hpf (None) H 11/15/16 22:22 Urine Yeast (Budding) Rare /hpf (None) H 11/15/16 22:22 Acetone, Qual Negative (Negative) 11/15/16 17:10 Influenza Type A RNA Not Detected (Not Detectd) 11/15/16 17:10 Influenza Type B (PCR) Not Detected (Not Detectd) 11/15/16 17:10 Thrombosis Risk Factor Assmnt - Choose All That Apply Any of the Below Risk Factors Present?: Yes Each Factor Represents 1 point: Age 41-60 years, Obesity (BMI >25) Other Risk Factors: Yes Each Risk Factor Represents 3 Points: History of DVT/PE Thrombosis Risk Factor Assessment Total Risk Factor Score: 5 Thrombosis Risk Factor Assessment Level: High Risk Assessment and Plan Plan: 1. 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 Patient will be seen by speech as well as physical therapy and occasional therapy 2. Slightly up at therapeutic INR patient is on chronic anticoagulation secondary to multiple DVTs and PEs in the past, Coumadin will be readjusted daily INRs 3 diabetes mellitus type 2 with hypoosmolar non-ketosis hyperglycemia: without any sign of DKA patient currently is on Lantus 70 units every morning which is maintained and patient's pre-meal insulin NovoLog patient has been very noncompliant with diet and was taking at least 3 cans of sugared soda per day hemoglobin A1c of 11 sugars were more appropriate controlled in the hospital while the patient has been abstaining from soda, 4. Recurrent abdominal pain suspect gastroparesis prior history of pancreatitis the past lipase obtained today was normal at 139, this was fully investigated in the past during her last admission in September 2016 patient needs compliance on her dietary requirements 5 advance ischemic cardiomyopathy and atherosclerotic heart disease: Patient seen cardiology on regular basis. Continue patient on current medication with metoprolol furosemide nitro isosorbide and the Crestor. 6 hypertension: Remain on metoprolol and isosorbide. Zestril 7 chronic DVT and PEs: Patient is on warfarin which is currently on hold PT/INR be done daily. There is no current evidence for hemorrhagic transformation we would restart Coumadin prior to discharge, Lovenox for DVT prophylaxis 7 COPD: is on albuterol ipratropium nebulizer up to 4 times a day. 8 hyperlipidemia: Patient remain on Crestor 20 mg daily. 9 severe gastritis: Patient will be on omeprazole 20 mg daily. 10 severe PAD: Patient seen Dr. Bill had an angioplasty of the left leg circulation is slightly but better no sign of infection or gangrene currently. 11 chronic neuropathy: Remain on gabapentin 800 mg twice a day. 12 DVT prophylaxis: Patient is on warfarin PT/INR be done daily. This would be bridged with Lovenox while Coumadin is on hold CODE STATUS: Full code. Expectation from this admission: Patient be in the hospital for more than 2 nights.
--- NOTE | 2016-11-16 17:01 | P.CNNES ---
History of Present Illness Consult date: 11/16/16 Requesting physician: Torrie Rosenberg Reason for Consult: TIA History of Present Illness: Patient is a pleasant 56-year-old female who is being evaluated today for 2016 per the request of Dr. Rosenberg for TIA. Patient has extensive history of coronary artery disease, with cardiac stents, hypertension, COPD, diabetes mellitus, and previous multiple DVTs and PEs requiring chronic anticoagulation. Patient was found to have slurred speech and fall at home. Patient was brought to [facility] emergency room for further evaluation. Labs on admission were to WBCs 13.7, RBCs 5.4, hemoglobin 16.0. Patient on Coumadin and INR is 4.1 on admission. Electrolyte imbalance with sodium 133, potassium 3.3, chloride 87, and carbon dioxide 30. Magnesium was low at 1.5. Patient also had blood glucose of 422 with hemoglobin A1c of 11.5. At the time of my evaluation, patient's sitting comfortably at the bedside and appears to be in no acute distress. Review of Systems REVIEW OF SYSTEMS: Otherwise unremarkable and noncontributory. Past Medical History Past Medical History: Coronary Artery Disease (CAD), Chest Pain / Angina, COPD, Diabetes Mellitus, Deep Vein Thrombosis (DVT), GERD/Reflux, Hyperlipidemia, Hypertension, Myocardial Infarction ([place]), Osteoarthritis (OA), Pulmonary Embolus (PE) Additional Past Medical History / Comment(s): Stomach pain.Mutiple DVT, mesentaric thrombosis x2,hx GENITAL WARTS, neuropathy,pad,chronic pain syndrome, ddd lumbar region w/radiculopathy, fell jun 2015 tore rt rotator cuff, pancreatitis, uti, non alcoholic fatty liver, poly neuropathy. Last Myocardial Infarction Date:: 2010 History of Any Multi-Drug Resistant Organisms: None Reported Past Surgical History: Adenoidectomy, Section, Heart Catheterization, Heart Catheterization With Stent, Orthopedic Surgery, Tubal Ligation Additional Past Surgical History / Comment(s): 11 Stents in left leg, fistula left thigh, full mouth teeth extraction, TRAPEASE VENA CAVA FILTER, carpel tunnel, heart stents x4 rca and lad, tumor removal from uterus. Genital warts removed. Past Anesthesia/Blood Transfusion Reactions: No Reported Reaction Date of Last Stent Placement:: May 2016 Past Psychological History: Depression Additional Psychological History / Comment(s): Depression r/t health issues. Smoking Status: Former smoker Past Alcohol Use History: None Reported Additional Past Alcohol Use History / Comment(s): STARTED SMOKING AT AGE 23. smoked 1/2-1 ppd Past Drug Use History: None Reported - Past Family History Mother Family Medical History: Cancer, Congestive Heart Failure (CHF), Diabetes Mellitus, Myocardial Infarction ([place]) Father Family Medical History: Myocardial Infarction ([place]) Sister(s) Family Medical History: Myocardial Infarction ([place]) Son(s) Family Medical History: Deep Vein Thrombosis (DVT), Pulmonary Embolus Medications and Allergies Home Medications Medication Instructions Recorded Confirmed Type Gabapentin 800 mg PO BID 12/14/13 11/15/16 History Insulin Glargine [Lantus] 70 unit SQ QAM 12/14/13 11/15/16 History Nitroglycerin Sl Tabs [Nitrostat] 0.4 mg SUBLINGUAL Q5M PRN 12/14/13 11/15/16 History DULoxetine HCL [Cymbalta] 30 mg PO QAM 07/15/14 11/15/16 History Metoprolol Tartrate [Lopressor] 12.5 mg PO BID 07/15/14 11/15/16 History Furosemide 20 mg PO QAM 05/02/15 11/15/16 History Hydrocodone/Acetaminophen 1 tab PO Q6H PRN 05/02/15 11/15/16 History [Hydrocodon-Acetaminophn 10-325] Isosorbide Mononitrate ER [Imdur] 30 mg PO QAM 05/02/15 11/15/16 History Ergocalciferol [Vitamin D2 50,000 unit PO [id number] 08/26/15 11/15/16 History (MELANIE)] Insulin Lispro [humaLOG Kwikpen] See Protocol SQ AC-TID 08/26/15 11/15/16 History metFORMIN HCL 1,000 mg PO BID 08/26/15 11/15/16 History Lisinopril [Zestril] 2.5 mg PO QAM 09/13/15 11/15/16 History Aspirin EC [Ecotrin Low Dose] 81 mg PO DAILY 12/23/15 11/15/16 History Warfarin [Coumadin] 2.5 mg PO TUFR 12/23/15 11/15/16 History Warfarin [Coumadin] 7.5 mg PO SUMOWETHSA 12/23/15 11/15/16 History Potassium Chloride ER [K-Dur 20] 20 meq PO BID 09/28/16 11/15/16 History traMADol HCL [Ultram] 50 mg PO Q8H PRN 09/28/16 11/15/16 History Allergies Allergy/AdvReac Type Severity Reaction Status Date / Time No Known Allergies Allergy Verified 11/15/16 17:49 Physical Examination - Vital Signs Vital Signs: Vital Signs Temp Pulse Pulse Pulse Resp BP BP 11/16/16 12:00 97.3 F L 73 18 126/79 11/16/16 09:16 11/16/16 08:00 97.5 F L 64 18 11/16/16 03:45 98.8 F 84 18 104/70 11/16/16 00:00 97.2 F L 73 18 96/50 11/15/16 20:40 96.9 F L 93 18 100/72 11/15/16 20:10 83 18 113/65 Pulse Ox 11/16/16 12:00 98 11/16/16 09:16 98 11/16/16 08:00 98 11/16/16 03:45 97 11/16/16 00:00 97 11/15/16 20:40 96 11/15/16 20:10 98 Intake and Output 11/16/16 11/16/16 11/16/16 06:59 14:59 22:59 Other: Voiding Method Toilet Toilet # Voids 2 Weight 88.2 kg 88.2 kg Patient Weight 11/17/16 06:59 Weight 88.2 kg PHYSICAL EXAM: GENERAL APPEARANCE: Patient is a well-developed, female who appears to be in no acute distress. HEENT: Normocephalic, atraumatic, no facial asymmetry is seen. Neck is supple with no masses felt. CARDIOVASCULAR: Regular rate and rhythm. ABDOMEN: Nontender, nondistended. EXTREMITIES: Show no edema or clubbing. NEUROLOGICAL EXAM: Patient is awake, alert, and oriented 3. Speech and language are normal. Strength is full in all 4 extremities. Sensory exam to light touch is normal in all 4 extremities. No facial asymmetry is seen on cranial nerve testing. No tremors or seizure-like activity noted. Results - Laboratory Findings CBC and BMP: 11/16/16 05:49 04/14/17 05:49 Abnormal Lab Findings: Abnormal Labs 11/15/16 11/15/16 11/16/16 20:58 22:22 05:49 PT Sodium 136 L Potassium 3.2 L Chloride 95 L Glucose 175 H POC Glucose (mg/dL) 252 H Urine Appearance Cloudy H Urine Glucose (UA) 4+ H Ur Leukocyte Esterase Moderate H Urine RBC 10 H Urine Mucus Rare H Urine Yeast (Budding) Rare H 11/16/16 11/16/16 11/16/16 05:49 06:27 11:55 PT 40.9 H Sodium Potassium Chloride Glucose POC Glucose (mg/dL) 164 H 166 H Urine Appearance Urine Glucose (UA) Ur Leukocyte Esterase Urine RBC Urine Mucus Urine Yeast (Budding) Assessment and Plan Plan: Impression: 1. TIA, with transient episode of slurred speech with left-sided hemiparesis 2. Coagulopathy, with supratherapeutic INR of 4.1. 3. History of coronary artery disease with history of stent placement 4. History of DVT, PE 5. Uncontrolled diabetes mellitus Recommendations: It does appear the patient had transient ischemic attack with transient episode of slurred speech and left-sided hemiparesis. CT of the brain showed no acute abnormality. 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 Patient's symptoms have since resolved. I do recommend continuing current anticoagulation. I recommend patient be counseled on further control of diabetes mellitus. I will order carotid Dopplers. I will order an EEG, fasting lipid panel, and serum homocystine level. Continue neurological checks. I recommend physical therapy, occupational therapy, and speech therapy to evaluate and treat. Being that symptoms have resolved, she most likely had a transient ischemic attack even with her supratherapeutic INR. I do not feel there is need for an MRI at this time. I will continue to follow with you. Further recommendations to follow. Thank you for allowing me to participate in the care of your patient. Feel free to call with any questions or concerns. I performed an examination of the patient and discussed the management with the MATTRESS SPRING ENCASER. I have reviewed the MATTRESS SPRING ENCASER notes and agree with the findings and plan of care.
[2016-11-16 17:22] LABS: Glucose,Whole Blood 138 mg/dL (75-99)
[2016-11-16 18:00] LABS: Cholesterol 102 mg/dL (<200); HDL Cholesterol 26 mg/dL (40-60); Triglycerides 367 mg/dL (<150)
[2016-11-16] MEDS ORDERED: WARFARIN 2.5 MG TAB PO SCH (18:00)
[2016-11-16 20:31] LABS: Glucose,Whole Blood 170 mg/dL (75-99)
[2016-11-16] MEDS: ATORVASTATIN 20 MG TAB PO SCH (20:42)
--- NOTE | 2016-11-16 21:56 | US ---
EXAMINATION TYPE: US carotid duplex BILAT DATE OF EXAM: 11/16/2016 8:47 PM COMPARISON: NONE CLINICAL HISTORY: TIA. Weakness, slurred speech EXAM MEASUREMENTS: RIGHT: Peak Systolic Velocity (PSV) cm/sec ----- Right CCA: 61.0 ----- Right ICA: 71.3 ----- Right ECA: 78.8 ICA/CCA ratio: 1.2 RIGHT: End Diastole cm/sec ----- Right CCA: 16.5 ----- Right ICA: 27.4 ----- Right ECA: 11.5 LEFT: Peak Systolic Velocity (PSV) cm/sec ----- Left CCA: 80.5 ----- Left ICA: 109.7 ----- Left ECA: 106.4 ICA/CCA ratio: 1.4 LEFT: End Diastole cm/sec ----- Left CCA: 23.7 ----- Left ICA: 33.8 ----- Left ECA: 16.0 VERTEBRALS (direction of flow): Right Vertebral: Antegrade Left Vertebral: Antegrade Mild plaque noted bilateral bifurcations. No increased velocities. No evidence of significant stenosi s. IMPRESSION: There is antegrade flow in the vertebral arteries. The images and measurements suggest 1 0-20% stenosis in both internal carotid arteries. Criteria for Assigning % of Stenosis / Diameter reduction (Estimation based on the indirect measurements of the internal carotid artery velocities (ICA PSV). 1. Normal (no stenosis)=ICA PSV < 125 cm/s: ratio < 2.0: ICA EDV<40 cm/s. 2. Less than 50% stenosis=ICA PSV < 125 cm/s: ratio < 2.0: ICA EDV<40 cm/s. 3. 50 to 69% stenosis=ICA PSV of 125 to 230 cm/s: ration 2.0 ? 4.0: ICA EDV 40-100 cm/s. 4. Greater than 70% stenosis to near occlusion= ICA PSV > 230 cm/s: ratio > 4.0: ICA EDV > 100 cm/s. 5. Near occlusion= ICA PSV velocities may be low or undetectable: variable ratio and ICA EDV. 6. Total occlusion=unable to detect flow.
[2016-11-17] MEDS: SODIUM CHLORIDE 0.9% 1,000 ML IV SCH (03:00)
[2016-11-17 03:01] LABS: Glucose,Whole Blood 211 mg/dL (75-99)
[2016-11-17] MEDS: HYDROcodone/APAP 10-325MG 1 EACH TAB PO PRN ×2 (03:28→09:29)
[2016-11-17 05:21] VITALS: TEMP 97.4
[2016-11-17 06:15] LABS: Glucose,Whole Blood 203 mg/dL (75-99)
[2016-11-17] MEDS: INSULIN LISPRO (humaLOG) 300 UNIT/3 ML VIAL SQ SCH ×2 (06:37→12:26)
[2016-11-17] MEDS: PANTOPRAZOLE 40 MG TABLET PO SCH (06:37)
[2016-11-17 06:46] LABS: CH 29.8; CHCM 33.8; HCT 37.1 % (34.0-46.0); HDW 3.23; HGB 12.2 gm/dL (11.4-16.0); MCH 29.2 pg (25.0-35.0); MCHC 32.9 g/dL (31.0-37.0); MCV 88.8 fL (80.0-100.0); Mean Platelet Volume 8.2; RBC 4.18 m/uL (3.80-5.40); RDW 14.8 % (11.5-15.5); WBC 6.1 k/uL (3.8-10.6)
[2016-11-17 06:49] LABS: INR 2.6 (<1.1); Prothrombin Time 25.1 sec (9.0-12.0)
[2016-11-17 07:00] LABS: ALT 44 U/L (9-52); AST 71 U/L (14-36); Alkaline Phosphatase 54 U/L (38-126); Anion Gap 9 mmol/L; Blood Urea Nitrogen 7 mg/dL (7-17); Calcium 8.8 mg/dL (8.4-10.2); Carbon Dioxide 28 mmol/L (22-30); Chloride 103 mmol/L (98-107); Glucose 205 mg/dL (74-99); Non-African American GFR(MDRD) >60 (>60 ml/min/1.73 sqM); Potassium 3.7 mmol/L (3.5-5.1); Sodium 140 mmol/L (137-145); Total Protein 5.7 g/dL (6.3-8.2)
[2016-11-17] MEDS: ASPIRIN 81 MG CHEW PO SCH (09:18)
[2016-11-17] MEDS: FUROSEMIDE 20 MG TAB PO SCH (09:18)
[2016-11-17] MEDS: POTASSIUM CHLORIDE ER 20 MEQ TAB.ER PO SCH (09:18)
[2016-11-17] MEDS: METOPROLOL TARTRATE 12.5 MG TAB PO SCH (09:18)
[2016-11-17] MEDS: LISINOPRIL 2.5 MG TAB PO SCH (09:18)
[2016-11-17] MEDS: GABAPENTIN 400 MG CAP PO SCH (09:18)
[2016-11-17 11:32] VITALS: RESP 16
[2016-11-17 11:44] VITALS: BP 120/81; PULSE 83
[2016-11-17] MEDS: DULoxetine HCL 30 MG CAPSULE.DR PO SCH (11:44)
[2016-11-17] MEDS: ISOSORBIDE MONONITRATE ER 30 MG TAB.ER.24H PO SCH (11:45)
[2016-11-17 11:50] LABS: Glucose,Whole Blood 294 mg/dL (75-99)
[2016-11-17] MEDS: INSULIN GLARGINE 100 UNIT/ML 10 ML VIAL SQ SCH (12:25)
--- NOTE | 2016-11-17 13:45 | XR ---
Left knee HISTORY: Trauma and pain 3 views of the left knee Comparison previous exam dated 08 September 2014 Bone mineralization, joint spaces and alignment are stable. Marginal spurring is present especially i n the medial compartment. Probable enthesophyte at the origin of the patellar tendon is stable. There is soft tissue swelling. Possible joint effusion. There are vascular calcifications suspected. Joint space loss and spurring present especially at the patellofemoral joint. IMPRESSION: No fracture or dislocation is evident.
--- NOTE | 2016-11-17 13:57 | P.PN ---
Subjective Principal diagnosis: Patient is a pleasant 56-year-old female who is being followed by the neurology service for TIA. Patient had episode of slurred speech and global weakness in the home setting. Patient was brought to [facility] for further evaluation. Symptoms have since resolved. At the time of my evaluation, patient is up at the bedside and appears to be in no acute distress. Objective - Vital Signs Vital signs: Vital Signs Temp 97.4 F L 11/17/16 04:00 Pulse 83 11/17/16 11:43 Resp 16 11/17/16 11:43 BP 120/81 11/17/16 11:43 Pulse Ox 97 11/17/16 11:43 Intake & Output 11/16/16 11/17/16 11/17/16 18:59 06:59 18:59 Intake Total 1000 800 540 Output Total 750 800 Balance 250 0 540 Weight 88.2 kg 89.3 kg Intake: IV 1000 800 Sodium Chloride 0.9% 1, 1000 800 000 ml @ 100 mls/hr IV . Q10H AGNES Rx#:[id number] Oral 540 Output: Urine 750 800 Other: Voiding Method Toilet Toilet # Voids 2 2 - Exam PHYSICAL EXAM: GENERAL APPEARANCE: Patient is a well-developed, female who appears to be in no acute distress. HEENT: Normocephalic, atraumatic, no facial asymmetry is seen. Neck is supple with no masses felt. CARDIOVASCULAR: Regular rate and rhythm. ABDOMEN: Nontender, nondistended. EXTREMITIES: Show no edema or clubbing. NEUROLOGICAL EXAM: Patient is awake, alert, and oriented 3. Speech and language are normal. Strength is full in all 4 extremities. No sensory deficit to light touch in all 4 extremities. No facial asymmetry is seen on cranial nerve testing. No tremors or seizure-like activity is noted. - Labs CBC & Chem 7: 11/17/16 06:06 11/17/16 06:06 Labs: Abnormal Lab Results - Last 24 Hours (Table) 11/16/16 11/16/16 11/16/16 Range/Units 05:49 16:50 20:30 Plt Count (150-450) k/uL PT (9.0-12.0) sec Glucose (74-99) mg/dL POC Glucose (mg/dL) 138 H 170 H (75-99) mg/dL AST (14-36) U/L Total Protein (6.3-8.2) g/dL Albumin (3.5-5.0) g/dL Triglycerides 367 H (<150) mg/dL HDL Cholesterol 26 L (40-60) mg/dL 11/17/16 11/17/16 11/17/16 Range/Units 03:00 06:06 06:06 Plt Count 133 L (150-450) k/uL PT 25.1 H (9.0-12.0) sec Glucose (74-99) mg/dL POC Glucose (mg/dL) 211 H (75-99) mg/dL AST (14-36) U/L Total Protein (6.3-8.2) g/dL Albumin (3.5-5.0) g/dL Triglycerides (<150) mg/dL HDL Cholesterol (40-60) mg/dL 11/17/16 11/17/16 11/17/16 Range/Units 06:06 06:14 11:46 Plt Count (150-450) k/uL PT (9.0-12.0) sec Glucose 205 H (74-99) mg/dL POC Glucose (mg/dL) 203 H 294 H (75-99) mg/dL AST 71 H (14-36) U/L Total Protein 5.7 L (6.3-8.2) g/dL Albumin 2.9 L (3.5-5.0) g/dL Triglycerides (<150) mg/dL HDL Cholesterol (40-60) mg/dL Assessment and Plan Plan: Impression: 1. TIA, with transient episode of slurred speech with left-sided hemiparesis 2. Coagulopathy, with supratherapeutic INR of 4.1. 3. History of coronary artery disease with history of stent placement 4. History of DVT, PE 5. Uncontrolled diabetes mellitus Recommendations: It does appear the patient had transient ischemic attack with transient episode of slurred speech and left-sided hemiparesis. CT of the brain showed no acute abnormality. 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 Patient's symptoms have since resolved. I do recommend continuing current anticoagulation. I recommend patient be counseled on further control of diabetes mellitus. Carotid Dopplers showed no significant stenosis. EEG was done and results are pending. Her fasting lipid panel was abnormal with high triglyceride to 367 and low HDL of 26. I do recommend correcting her lipid panel with medication and education on diet therapy. Her serum homocystine level is pending. Continue neurological checks. Being that symptoms have resolved, she most likely had a transient ischemic attack even with her supratherapeutic INR. I do not feel there is need for an MRI at this time. Patient is stable from neurology standpoint for discharge. I performed an examination of the patient and discussed the management with the CYLINDER LOADER. I have reviewed the CYLINDER LOADER notes and agree with the findings and plan of care.
[2016-11-17] MEDS ORDERED: WARFARIN 7.5 MG TAB PO SCH ×2 (18:00)
--- NOTE | 2016-11-20 08:18 | EEG ---
DATE OF SERVICE: 11/17/2016 REASON FOR TESTING: Transient ischemic attack and altered mental status. AGE: 56Y DESCRIPTION OF THE PROCEDURE: This EEG was performed using a 21-channel digital electroencephalograph, following the international 10 - 20 system. DESCRIPTION OF THE RECORDING: From the beginning of the tracing, and with the patient's eyes closed, the background rhythm was mostly consisting of 9 Hz alpha frequency in the posterior occipital leads. No obvious asymmetry is seen. Photic stimulation was performed with a minimal driving response seen. No pathological waves were elicited. Hyperventilation was not performed. The patient remains awake throughout the tracing. No epileptiform discharges were seen. Occasional movement and muscle artifacts are seen. Her EKG lead showed a regular rate and rhythm. INTERPRETATION: This awake EEG can be considered within normal limits. There was no asymmetry seen. No epileptiform discharges were noticed. The absence of epileptiform discharges does not rule out the diagnosis of epilepsy, therefore, clinical correlation is recommended.
[2016-11-20] MEDS ORDERED: WARFARIN 2.5 MG TAB PO SCH (18:00)
[2016-11-25] MEDS ORDERED: ERGOCALCIFEROL 50,000 UNIT CAP PO SCH (09:00)
--- NOTE | 2016-11-28 14:51 | P.DS ---
Providers Date of admission: 11/15/16 19:28 Expected date of discharge: 11/17/16 Attending physician: Torrie Rosenberg Primary care physician: Ramirez Balderas [facility] Hospital Course: This a 56-year-old pleasant ladypatient of Dr. Balderas, she has underlying history of CAD, with cardiac stent in May 2016, hypertension and COPD diabetes mellitus type 2, previous multiple DVT and PE requiring chronic anticoagulation admitted to the emergency room secondary to slurred speech with occurred one week prior to admission, patient had a syncopal weakness for approximately one week and decided to show up in the emergency room secondary to impaired balance and gait patient was bouncing off the campbell grasping towards ambulate. Patient denies any aspiration she does have expressive aphasia, patient denies any recent foreign travel or trauma, no fever, patient denies any previous strokes in the past. 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 She was admitted with evaluation to neurology secondary to persistent left weakness with dysarthria suspicious of CVA with symptoms were present a week prior to admission 11/17: Credit ultrasound showed no hemodynamically significant stenosis. EEG was within normal limits. Patient underwent a left knee x-ray that showed no fracture or dislocation. Patient was seen and followed by neurology for TIA with resolution of symptoms. Recommendations were to continue current anticoagulation. At the time of discharge, INR 2.6. Triglycerides 367, cholesterol 102, LDL 3, HDL 26. Homocysteine 16.71. Discharge diagnoses: 1. TIA 2. Slightly supratherapeutic INR patient is on chronic anticoagulation secondary to multiple DVTs and PEs in the past 3 diabetes mellitus type 2 with hypoosmolar non-ketosis hyperglycemia, hemoglobin A1c of 11 4. Recurrent abdominal pain suspect gastroparesis 5 advance ischemic cardiomyopathy and atherosclerotic heart disease 6 hypertension 7 chronic DVT and PEs 7 COPD without exacerbation 8 hyperlipidemia 9 severe gastritis 10 severe PAD 11 chronic neuropathy Impression and plan of care have been directed as dictated by the signing physician. Kerri Kevin nurse practitioner acting as scribe for signing physician. Patient Condition at Discharge: Good Plan - Discharge Summary Discharge Medication List Gabapentin 800 mg PO BID 12/14/13 [History] Insulin Glargine [Lantus] 70 unit SQ QAM 12/14/13 [History] Nitroglycerin Sl Tabs [Nitrostat] 0.4 mg SUBLINGUAL Q5M PRN 12/14/13 [History] DULoxetine HCL [Cymbalta] 30 mg PO QAM 07/15/14 [History] Metoprolol Tartrate [Lopressor] 12.5 mg PO BID 07/15/14 [History] Furosemide 20 mg PO QAM 05/02/15 [History] Hydrocodone/Acetaminophen [Hydrocodon-Acetaminophn 10-325] 1 tab PO Q6H PRN [History] Isosorbide Mononitrate ER [Imdur] 30 mg PO QAM 05/02/15 [History] Ergocalciferol [Vitamin D2 (DRISDOL)] 50,000 unit PO [id number] 08/26/15 [History] Insulin Lispro [humaLOG Kwikpen] See Protocol SQ AC-TID 08/26/15 [History] metFORMIN HCL 1,000 mg PO BID 08/26/15 [History] Lisinopril [Zestril] 2.5 mg PO QAM 09/13/15 [History] Aspirin EC [Ecotrin Low Dose] 81 mg PO DAILY 12/23/15 [History] Warfarin [Coumadin] 2.5 mg PO TUFR 12/23/15 [History] Warfarin [Coumadin] 7.5 mg PO SUMOWETHSA 12/23/15 [History] Potassium Chloride ER [K-Dur 20] 20 meq PO BID 09/28/16 [History] traMADol HCL [Ultram] 50 mg PO Q8H PRN 09/28/16 [History] Pantoprazole [Protonix] 40 mg PO [id number] #30 tablet. 10/01/16 [Rx] Rosuvastatin [Crestor] 10 mg PO HS #0 10/01/16 [Rx] Follow up Appointment(s)/Referral(s): Ramirez Balderas MD [Primary Care Provider] - 1-2 days [facility], [NON-STAFF] - Discharge Disposition: HOME WITH HOME HEALTH SERVICES
== END 2016-11-17 14:41 | disposition home health service (06) | DRG 69 ==
LOC: EC 16:52 → 6SEL 19:28 → UNDODISIN 11-16 10:49
PROVIDERS: ADMIT Family Medicine; ATTEND Family Medicine
DX: G45.9 Transient cerebral ischemic attack, unspecified (principal); E11.40 Type 2 diabetes mellitus with diabetic neuropathy, unspecified; E11.51 Type 2 diabetes mellitus with diabetic peripheral angiopathy without gangrene; E11.65 Type 2 diabetes mellitus with hyperglycemia; E83.42 Hypomagnesemia; M51.16 Intervertebral disc disorders with radiculopathy, lumbar region; G89.4 Chronic pain syndrome; I10 Essential (primary) hypertension; I25.10 Atherosclerotic heart disease of native coronary artery without angina pectoris; J44.9 Chronic obstructive pulmonary disease, unspecified; E78.5 Hyperlipidemia, unspecified; I25.2 Old myocardial infarction; K21.9 Gastro-esophageal reflux disease without esophagitis; M19.91 Primary osteoarthritis, unspecified site; F32.9 Major depressive disorder, single episode, unspecified; I25.5 Ischemic cardiomyopathy; K29.70 Gastritis, unspecified, without bleeding; E87.6 Hypokalemia; D17.9 Benign lipomatous neoplasm, unspecified; K76.0 Fatty (change of) liver, not elsewhere classified; R79.1 Abnormal coagulation profile; T45.515A Adverse effect of anticoagulants, initial encounter; Z91.11 Patient's noncompliance with dietary regimen; Z95.5 Presence of coronary angioplasty implant and graft; Z86.718 Personal history of other venous thrombosis and embolism; Z86.711 Personal history of pulmonary embolism; Z87.891 Personal history of nicotine dependence; Z79.01 Long term (current) use of anticoagulants; Z79.4 Long term (current) use of insulin; Z79.82 Long term (current) use of aspirin; Z79.899 Other long term (current) drug therapy; Z79.84 Long term (current) use of oral hypoglycemic drugs; W19.XXXA Unspecified fall, initial encounter; Y92.009 Unspecified place in unspecified non-institutional (private) residence as the place of occurrence of the external cause
CPT/HCPCS: 36415; 70450; 71020; 80048; 80053; 80061; 81001; 82009; 82550; 82553; 83036; 83090; 83690; 83735; 84484; 85025; 85027; 85610; 85730; 87502; 93005; 93880; 94760; 95819; 96360; 99285

== ENCOUNTER 2016-11-30 05:53 | Day surgery (SDC) | payer MEDICARE, OTHER ==
[2016-11-29 11:45] VITALS: BMI 31.3
[2016-11-30 06:21] VITALS: RESP 18
[2016-11-30] MEDS ORDERED: SODIUM CHLORIDE 0.9% 250 ML IV ONE (06:36)
[2016-11-30 06:52] LABS: Glucose,Whole Blood 205 mg/dL (75-99)
[2016-11-30 06:53] LABS: INR 1.8 (<1.1); Prothrombin Time 17.8 sec (9.0-12.0)
[2016-11-30] MEDS ORDERED: BENZOCAINE SPRAY 100 APPLIC/CAN MUCOUS MEM ONE ×4 (06:53→07:10)
[2016-11-30] MEDS ORDERED: fentaNYL (PF) 50 MCG/ML 2 ML AMP ONE (06:56)
[2016-11-30] MEDS ORDERED: MIDAZOLAM 2 MG/2 ML VIAL ONE (06:57)
[2016-11-30] MEDS: MIDAZOLAM 2 MG/2 ML VIAL IVP ONE ×2 (07:09→07:25)
[2016-11-30] MEDS: fentaNYL (PF) 50 MCG/ML 2 ML AMP IV ONE ×2 (07:09→07:24)
[2016-11-30] MEDS ORDERED: MIDAZOLAM 2 MG/2 ML VIAL IVP ONE (07:17)
[2016-11-30] MEDS ORDERED: INSULIN LISPRO (humaLOG) 300 UNIT/3 ML VIAL SQ SCH (07:30)
[2016-11-30 07:52] VITALS: TEMP 98
[2016-11-30 10:06] VITALS: BP 110/73; PULSE 62
--- NOTE | 2016-11-30 11:22 | ECHOT ---
DATE OF SERVICE: Performing physician: Deyvi Bill M.D. accounting system expert. PROCEDURE PERFORMED: Transesophageal echocardiogram. INDICATION: This is a pleasant 56-year-old female patient who suffered from a stroke recently. The transesophageal echocardiogram is to rule out any cardiac source of embolization including patent gandara ovale PFO. Sedation: Conscious sedation was performed using a total of 4 mg of Versed and 75 micrograms of fentanyl of fentanyl in divided doses. COMPLICATIONS: None. PROCEDURE DESCRIPTION: After obtaining an informed consent, explaining the procedure, benefits, risks, complications and alternatives, the patient was brought to the transesophageal echocardiogram suite. A pulse oximetry and heart rate monitors were attached to the patient prior to the procedure. The patient's throat was sprayed using lidocaine locally. Following that, the patient was turned into left lateral position. A bite guard was placed and the patient was then sedated with the above doses of Versed and fentanyl in divided doses. Following that, the transesophageal echocardiogram probe was advanced through the bite guard into the mid esophagus where 2-D echocardiogram images as well as color Doppler images of various cardiac structures were obtained. We evaluated the interatrial septum using 2-D echocardiogram, color Doppler, and contrast study. The procedure was completed. There were no complications. FINDINGS: The left ventricular dimension and systolic function appeared to be within normal limits with an ejection fraction of 55% and normal wall motion. The right ventricle is of normal size and function. The left atrium and right atrium are moderately dilated. The left atrial appendage appeared to be free from any thrombus. The interatrial septum appeared to be intact without any evidence of shunt. The aortic valve is trileaflet valve and seems to be thickened and calcified without stenosis or regurgitation. The mitral valve seems to be also mildly thickened with mild MR. Normal tricuspid valve and pulmonic valve were seen. CONCLUSION: 1. There is no cardiac source of embolization seen. 2. Normal left atrial appendage without any evidence of thrombus. 3. Intact intra-atrial septum without any evidence of shunt. 4. Overall normal intracardiac valves. 5. Normal left ventricular dimension and systolic function. 6. Moderate biatrial enlargement. 7. Normal aortic root dimension. 8. No evidence of pericardial effusion.
== END 2016-11-30 09:45 | disposition home or self-care (01) ==
LOC: CATHCVL 05:53
PROVIDERS: ATTEND Internal Medicine Interventional Cardiology
DX: Z86.73 Personal history of transient ischemic attack (TIA), and cerebral infarction without residual deficits (principal); I25.10 Atherosclerotic heart disease of native coronary artery without angina pectoris; I51.7 Cardiomegaly; F17.210 Nicotine dependence, cigarettes, uncomplicated; I10 Essential (primary) hypertension; E78.5 Hyperlipidemia, unspecified; I82.4Y9 Acute embolism and thrombosis of unspecified deep veins of unspecified proximal lower extremity; Z95.5 Presence of coronary angioplasty implant and graft; E11.9 Type 2 diabetes mellitus without complications; I73.9 Peripheral vascular disease, unspecified; I42.9 Cardiomyopathy, unspecified; Z82.49 Family history of ischemic heart disease and other diseases of the circulatory system; Z79.01 Long term (current) use of anticoagulants; Z79.84 Long term (current) use of oral hypoglycemic drugs; Z79.82 Long term (current) use of aspirin; Z79.4 Long term (current) use of insulin; Z79.891 Long term (current) use of opiate analgesic; Z79.899 Other long term (current) drug therapy
CPT/HCPCS: 93312; 93320; 93325; 85610; J2250; J3010

== ENCOUNTER 2017-01-18 16:23 | Emergency (ER) | payer MEDICARE, OTHER ==
[2017-01-18 16:29] VITALS: TEMP 99.1
[2017-01-18] MEDS ORDERED: SODIUM CHLORIDE 0.9% 1,000 ML IV STA ×2 (17:13→17:30)
[2017-01-18] MEDS ORDERED: MECLIZINE 12.5 MG TAB PO STA (17:14)
[2017-01-18] MEDS ORDERED: METOCLOPRAMIDE 5 MG/ML 2 ML VIAL IVP STA (17:14)
--- NOTE | 2017-01-18 17:18 | ED ---
General Adult HPI - General Chief complaint: Weakness Stated complaint: Weakness Time Seen by Provider: 01/18/17 16:59 Source: patient, RN notes reviewed Mode of arrival: wheelchair Limitations: no limitations - History of Present Illness Initial comments: Patient is a pleasant 56-year-old male presenting to the emergency department with lightheadedness and off balance. Symptoms have been present intermittently since beginning of the year. Symptoms worsened in November and patient was diagnosed with TIA. Patient states symptoms have worsened over the past 10 days. Patient is scheduled to see a neurologist however has not seen one yet. Patient states symptoms are positional and worse with upright position. Patient at times does have a spinning sensation. Patient more feels near syncopal and lightheaded. Symptoms improved with lying down. - Related Data Home Medications Medication Instructions Recorded Confirmed Gabapentin 800 mg PO BID 12/14/13 01/18/17 Nitroglycerin Sl Tabs [Nitrostat] 0.4 mg SUBLINGUAL Q5M PRN 12/14/13 01/18/17 DULoxetine HCL [Cymbalta] 30 mg PO QAM 07/15/14 01/18/17 Furosemide 20 mg PO QAM 05/02/15 01/18/17 Hydrocodone/Acetaminophen 1 tab PO Q6H PRN 05/02/15 01/18/17 [Hydrocodon-Acetaminophn 10-325] Ergocalciferol [Vitamin D2 50,000 unit PO [id number] 08/26/15 01/18/17 (DRISDOL)] Insulin Lispro [humaLOG Kwikpen] 18 unit SQ AC-TID 08/26/15 01/18/17 metFORMIN HCL 1,000 mg PO BID 08/26/15 01/18/17 Lisinopril [Zestril] 2.5 mg PO HS 09/13/15 01/18/17 Aspirin EC [Ecotrin Low Dose] 81 mg PO DAILY 12/23/15 01/18/17 Warfarin [Coumadin] 2.5 mg PO TUFR 12/23/15 01/18/17 Warfarin [Coumadin] 7.5 mg PO SUMOWETHSA 12/23/15 01/18/17 traMADol HCL [Ultram] 50 mg PO Q8H PRN 09/28/16 01/18/17 Insulin Glargine,Hum.rec.anlog 70 unit SQ DAILY@1200 01/18/17 01/18/17 [Lantus Solostar] Metoprolol Tartrate [Lopressor] 12.5 mg PO HS 01/18/17 01/18/17 Potassium Chloride ER [K-Dur 10] 10 meq PO BID 01/18/17 01/18/17 Previous Rx's Medication Instructions Recorded Rosuvastatin [Crestor] 10 mg PO HS #0 10/01/16 Allergies Allergy/AdvReac Type Severity Reaction Status Date / Time No Known Allergies Allergy Verified 01/18/17 16:29 Review of Systems ROS Statement: Those systems with pertinent positive or pertinent negative responses have been documented in the HPI. ROS Other: All systems not noted in ROS Statement are negative. Constitutional: Denies: fever Eyes: Denies: eye pain ENT: Denies: ear pain Respiratory: Denies: cough Cardiovascular: Denies: chest pain Endocrine: Reports: fatigue Gastrointestinal: Denies: abdominal pain Genitourinary: Denies: urgency Skin: Denies: rash Neurological: Reports: headache (Mild left-sided headache), vertigo. Denies: weakness Past Medical History Past Medical History: Coronary Artery Disease (CAD), Chest Pain / Angina, COPD, CVA/TIA, Diabetes Mellitus, Deep Vein Thrombosis (DVT), GERD/Reflux, Hyperlipidemia, Hypertension, Myocardial Infarction ([place]), Osteoarthritis (OA), Pulmonary Embolus ([place]) Additional Past Medical History / Comment(s): states "b/p and heart rate running low",CVA on 11-16-16-Increased fatigue,SOB with activity,Loss of appetitie,pain in stomach after eating.Mutiple DVT,mesentaric thrombosis x2,hx GENITAL WARTS, neuropathy,pad,chronic pain syndrome,ddd lumbar region w/ radiculopathy, fell jun 2015 tore rt rotator cuff, pancreatitis, uti, non alcoholic fatty liver, poly neuropathy. Last Myocardial Infarction Date:: 2010 History of Any Multi-Drug Resistant Organisms: None Reported Past Surgical History: Section, Heart Catheterization, Heart Catheterization With Stent, Orthopedic Surgery, Tonsillectomy, Tubal Ligation Additional Past Surgical History / Comment(s): 11 Stents in left leg, fistula left thigh, full mouth teeth extraction, TRAPEASE VENA CAVA FILTER, carpel tunnel, heart stents x4 rca and lad, tumor removal from uterus. Genital warts removed. Past Anesthesia/Blood Transfusion Reactions: No Reported Reaction Date of Last Stent Placement:: May 2016 Past Psychological History: Depression Smoking Status: Former smoker Past Alcohol Use History: None Reported Past Drug Use History: None Reported - Past Family History Mother Family Medical History: Cancer, Congestive Heart Failure (CHF), Diabetes Mellitus, Myocardial Infarction ([place]) Father Family Medical History: Myocardial Infarction ([place]) Sister(s) Family Medical History: Myocardial Infarction ([place]) Son(s) Family Medical History: Deep Vein Thrombosis (DVT), Pulmonary Embolus General Exam Limitations: no limitations General appearance: alert, in no apparent distress Head exam: Present: atraumatic Eye exam: Present: normal appearance, PERRL, EOMI. Absent: nystagmus ENT exam: Present: normal oropharynx Neck exam: Present: normal inspection Respiratory exam: Present: normal lung sounds bilaterally Cardiovascular Exam: Present: regular rate, normal rhythm GI/Abdominal exam: Present: soft. Absent: tenderness Extremities exam: Present: normal inspection Neurological exam: Present: alert, oriented X3, CN II-XII intact. 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 SC 174. QRS 88. QT 384. QTC 469. Normal axis. Normal QRS. Normal ST-T. Medical Decision Making - Medical Decision Making Patient reexamined and improved with fluid bolus. Case was discussed in detail with Dr. Short. He does recommend discharge since patient did have recent workup for this. Nursing staff advised to get patient up and evaluate prior to discharge. - Lab Data Result diagrams: 01/18/17 17:00 01/18/17 17:00 Lab Results 01/18/17 01/18/17 01/18/17 Range/Units 17:00 17:00 17:00 WBC 14.2 H (3.8-10.6) k/uL RBC 4.95 (3.80-5.40) m/uL Hgb 14.5 (11.4-16.0) gm/dL Hct 40.6 (34.0-46.0) % MCV 82.0 D (80.0-100.0) fL MCH 29.3 (25.0-35.0) pg MCHC 35.8 (31.0-37.0) g/dL RDW 13.6 (11.5-15.5) % Plt Count 220 (150-450) k/uL Neutrophils % 70 % Lymphocytes % 23 % Monocytes % 4 % Eosinophils % 1 % Basophils % 0 % Neutrophils # 9.9 H (1.3-7.7) k/uL Lymphocytes # 3.3 (1.0-4.8) k/uL Monocytes # 0.6 (0-1.0) k/uL Eosinophils # 0.2 (0-0.7) k/uL Basophils # 0.1 (0-0.2) k/uL PT (9.0-12.0) sec INR (<1.1) APTT (22.0-30.0) sec Sodium 135 L (137-145) mmol/L Potassium 2.9 L* (3.5-5.1) mmol/L Chloride 91 L (98-107) mmol/L Carbon Dioxide 28 (22-30) mmol/L Anion Gap 16 mmol/L BUN 11 (7-17) mg/dL Creatinine 1.03 (0.52-1.04) mg/dL Est GFR (MDRD) Af Amer >60 (>60 ml/min/1.73 sqM) Est GFR (MDRD) Non-Af 56 (>60 ml/min/1.73 sqM) Glucose 181 H (74-99) mg/dL POC Glucose (mg/dL) (75-99) mg/dL POC Glu Slasher Tender ID Calcium 9.2 (8.4-10.2) mg/dL Phosphorus 2.9 (2.5-4.5) mg/dL Magnesium 1.2 L (1.6-2.3) mg/dL Total Bilirubin 0.8 (0.2-1.3) mg/dL AST 42 H (14-36) U/L ALT 50 (9-52) U/L Alkaline Phosphatase 69 (38-126) U/L Total Creatine Kinase 34 (30-135) U/L CK-MB (CK-2) 0.4 (0.0-2.4) ng/mL CK-MB (CK-2) Rel Index 1.2 Troponin I <0.012 (0.000-0.034) ng/mL Total Protein 7.0 (6.3-8.2) g/dL Albumin 3.9 (3.5-5.0) g/dL TSH 1.370 (0.465-4.680) mIU/L 01/18/17 01/18/17 Range/Units 17:00 17:27 WBC (3.8-10.6) k/uL RBC (3.80-5.40) m/uL Hgb (11.4-16.0) gm/dL Hct (34.0-46.0) % MCV (80.0-100.0) fL MCH (25.0-35.0) pg MCHC (31.0-37.0) g/dL RDW (11.5-15.5) % Plt Count (150-450) k/uL Neutrophils % % Lymphocytes % % Monocytes % % Eosinophils % % Basophils % % Neutrophils # (1.3-7.7) k/uL Lymphocytes # (1.0-4.8) k/uL Monocytes # (0-1.0) k/uL Eosinophils # (0-0.7) k/uL Basophils # (0-0.2) k/uL PT 46.6 H (9.0-12.0) sec INR 4.7 (<1.1) APTT 37.4 H (22.0-30.0) sec Sodium (137-145) mmol/L Potassium (3.5-5.1) mmol/L Chloride (98-107) mmol/L Carbon Dioxide (22-30) mmol/L Anion Gap mmol/L BUN (7-17) mg/dL Creatinine (0.52-1.04) mg/dL Est GFR (MDRD) Af Amer (>60 ml/min/1.73 sqM) Est GFR (MDRD) Non-Af (>60 ml/min/1.73 sqM) Glucose (74-99) mg/dL POC Glucose (mg/dL) 161 H (75-99) mg/dL POC Glu Slasher Tender ID Danyell Shabazz Calcium (8.4-10.2) mg/dL Phosphorus (2.5-4.5) mg/dL Magnesium (1.6-2.3) mg/dL Total Bilirubin (0.2-1.3) mg/dL AST (14-36) U/L ALT (9-52) U/L Alkaline Phosphatase (38-126) U/L Total Creatine Kinase (30-135) U/L CK-MB (CK-2) (0.0-2.4) ng/mL CK-MB (CK-2) Rel Index Troponin I (0.000-0.034) ng/mL Total Protein (6.3-8.2) g/dL Albumin (3.5-5.0) g/dL TSH (0.465-4.680) mIU/L - Radiology Data Radiology results: report reviewed (Computed tomography scan of the brain shows no acute process.), image reviewed (Chest x-ray shows no acute process) Disposition Clinical Impression: Orthostatic hypotension Disposition: HOME SELF-CARE Condition: Stable Instructions: Hypotension (ED) Additional Instructions: Please follow-up Saturday with Dr. Balderas. Return for weakness or confusion, speech problems, increased dizziness, worsening symptoms or other concerns. Referrals: Ramirez Balderas MD [Primary Care Provider] - 1-2 days Time of Disposition: 19:07
[2017-01-18 17:26] VITALS: RESP 18
[2017-01-18 17:28] LABS: Glucose,Whole Blood 161 mg/dL (75-99)
[2017-01-18 17:36] LABS: Basophils # (A) 0.1 k/uL (0-0.2); Basophils % (A) 0 %; CH 29.9; CHCM 36.6; Eosinophils # (A) 0.2 k/uL (0-0.7); Eosinophils % (A) 1 %; HCT 40.6 % (34.0-46.0); HDW 3.25; HGB 14.5 gm/dL (11.4-16.0); Luc # (Auto) 0.16; Luc % (Auto) 1; Lymphocytes # (A) 3.3 k/uL (1.0-4.8); Lymphocytes % (A) 23 %; MCH 29.3 pg (25.0-35.0); MCHC 35.8 g/dL (31.0-37.0); Mean Platelet Volume 7.9; Monocytes # (A) 0.6 k/uL (0-1.0); Monocytes % (A) 4 %; Neutrophils # (A) 9.9 k/uL (1.3-7.7); Neutrophils % (A) 70 %; RBC 4.95 m/uL (3.80-5.40); RDW 13.6 % (11.5-15.5); WBC 14.2 k/uL (3.8-10.6); WBC (Perox) 13.65
[2017-01-18 17:40] LABS: INR 4.7 (<1.1); Partial Thromboplastin Time 37.4 sec (22.0-30.0); Prothrombin Time 46.6 sec (9.0-12.0)
[2017-01-18 17:48] LABS: ALT 50 U/L (9-52); AST 42 U/L (14-36); Alkaline Phosphatase 69 U/L (38-126); Anion Gap 16 mmol/L; Blood Urea Nitrogen 11 mg/dL (7-17); Calcium 9.2 mg/dL (8.4-10.2); Carbon Dioxide 28 mmol/L (22-30); Chloride 91 mmol/L (98-107); Glucose 181 mg/dL (74-99); Magnesium 1.2 mg/dL (1.6-2.3); Non-African American GFR(MDRD) 56 (>60 ml/min/1.73 sqM); Phosphorous 2.9 mg/dL (2.5-4.5); Sodium 135 mmol/L (137-145); Total Bilirubin 0.8 mg/dL (0.2-1.3)
[2017-01-18 17:53] LABS: Creatine Kinase 34 U/L (30-135); Potassium 2.9 mmol/L (3.5-5.1)
[2017-01-18] MEDS ORDERED: POTASSIUM CHLORIDE ER 20 MEQ TAB.ER PO STA (17:58)
[2017-01-18] MEDS ORDERED: POTASSIUM CHLORIDE 10 MEQ, LIDOCAINE 2% INJ 10 MG in SODIUM CHLORIDE 0.9% 100 ML IVPB ONE (18:00)
--- NOTE | 2017-01-18 18:04 | CT ---
EXAMINATION TYPE: CT brain wo con DATE OF EXAM: 01/18/2017 COMPARISON: 11/15/2016 INDICATION: Weakness, hx of stroke. Vertigo DLP: 1097 mGycm, Automated exposure control for dose reduction was used. CONTRAST: None CT of the brain is performed utilizing 3 mm thick sections through the posterior fossa and 3 mm thick sections through the remaining calvarium. Study is performed within 24 hours of arrival to the hosp ital. There is hypodensity within the midline anterior falx region which was present previously. Find ings can be compatible with lipoma. No abnormal hyperdensity is present to suggest an acute intracranial hemorrhage. No mass lesion is evident. No acute infarcts are evident. Ventricles and sulci are appropriate for the patient age. Paranasal sinuses and mastoid air cells within the [id number] are clear. IMPRESSIONS: 1. No acute intracranial process.
[2017-01-18 18:06] LABS: Creatine Kinase MB 0.4 ng/mL (0.0-2.4); Troponin I <0.012 ng/mL (0.000-0.034)
--- NOTE | 2017-01-18 18:18 | XR ---
EXAMINATION TYPE: XR chest 2V DATE OF EXAM: 01/18/2017 COMPARISON: 11/15/2016 INDICATION: Weakness recent CVA TECHNIQUE: Frontal and lateral views of the chest are obtained. FINDINGS: The heart size is normal. The pulmonary vasculature is normal. The lungs are clear. IMPRESSION: 1. No acute pulmonary process.
[2017-01-18 20:54] VITALS: BP 112/64; PULSE 78
== END 2017-01-18 21:06 | disposition home or self-care (01) ==
LOC: EC 16:23
DX: I95.1 Orthostatic hypotension (principal); R42 Dizziness and giddiness; I25.10 Atherosclerotic heart disease of native coronary artery without angina pectoris; J44.9 Chronic obstructive pulmonary disease, unspecified; K21.9 Gastro-esophageal reflux disease without esophagitis; E78.5 Hyperlipidemia, unspecified; I10 Essential (primary) hypertension; I25.2 Old myocardial infarction; M19.90 Unspecified osteoarthritis, unspecified site; F32.9 Major depressive disorder, single episode, unspecified; E11.40 Type 2 diabetes mellitus with diabetic neuropathy, unspecified; Z87.891 Personal history of nicotine dependence; Z79.4 Long term (current) use of insulin; Z79.01 Long term (current) use of anticoagulants; Z79.82 Long term (current) use of aspirin; Z79.899 Other long term (current) drug therapy; Z86.711 Personal history of pulmonary embolism; Z86.718 Personal history of other venous thrombosis and embolism; Z86.73 Personal history of transient ischemic attack (TIA), and cerebral infarction without residual deficits; Z95.5 Presence of coronary angioplasty implant and graft
CPT/HCPCS: 99285; 96374; 96361 ×4; 36415; 93005; 80053; 82550; 82553; 83735; 84100; 84443; 84484; 85025; 85610; 85730; 71020; 70450; J2001; J2765; J3480

== ENCOUNTER 2017-02-27 18:25 | Observation (INO) | payer MEDICARE, OTHER ==
[2017-02-27] MEDS ORDERED: SODIUM CHLORIDE 0.9% 1,000 ML IV STA (18:49)
[2017-02-27] MEDS ORDERED: SODIUM CHLORIDE 0.9% 500 ML IV STA (18:49)
[2017-02-27 19:07] LABS: Basophils # (A) 0.1 k/uL (0-0.2); Basophils % (A) 1 %; CH 29.7; CHCM 34.8; Eosinophils # (A) 0.2 k/uL (0-0.7); Eosinophils % (A) 2 %; HCT 44.7 % (34.0-46.0); HGB 15.3 gm/dL (11.4-16.0); Luc # (Auto) 0.13; Luc % (Auto) 1; Lymphocytes # (A) 2.9 k/uL (1.0-4.8); Lymphocytes % (A) 24 %; MCH 29.4 pg (25.0-35.0); MCHC 34.3 g/dL (31.0-37.0); MCV 85.7 fL (80.0-100.0); Mean Platelet Volume 8.1; Monocytes # (A) 0.4 k/uL (0-1.0); Monocytes % (A) 4 %; Neutrophils # (A) 8.1 k/uL (1.3-7.7); Neutrophils % (A) 69 %; RBC 5.21 m/uL (3.80-5.40); RDW 15.5 % (11.5-15.5); WBC 11.7 k/uL (3.8-10.6); WBC (Perox) 11.76
[2017-02-27 19:12] LABS: Partial Thromboplastin Time 42.4 sec (22.0-30.0)
[2017-02-27 19:16] LABS: ALT 63 U/L (9-52); AST 53 U/L (14-36); Alkaline Phosphatase 67 U/L (38-126); Anion Gap 14 mmol/L; Blood Urea Nitrogen 7 mg/dL (7-17); Calcium 10.7 mg/dL (8.4-10.2); Carbon Dioxide 25 mmol/L (22-30); Chloride 95 mmol/L (98-107); Glucose 242 mg/dL (74-99); Non-African American GFR(MDRD) >60 (>60 ml/min/1.73 sqM); Potassium 4.1 mmol/L (3.5-5.1); Sodium 134 mmol/L (137-145); Total Bilirubin 0.7 mg/dL (0.2-1.3); Total Protein 7.2 g/dL (6.3-8.2)
[2017-02-27 19:21] LABS: Creatine Kinase 31 U/L (30-135)
--- NOTE | 2017-02-27 19:25 | CT ---
EXAMINATION TYPE: CT brain wo con DATE OF EXAM: 02/27/2017 COMPARISON: 01/18/2017 HISTORY: Patient complains of syncopeal episode with fall today. CT DLP: 822.[address] of the brain was performed. The ventricles, basal cisterns and sulci overlying the cerebral convexities demonstrate mild enlargem ent. There is no evidence for intracranial hemorrhage or sulcal effacement. Anterior interhemispheric lip suha. This is unchanged from prior study and measures approximately 8 mm. There is decreased attenuation about the periventricular white matter and deep white matter of both c erebral hemispheres, compatible with chronic small vessel ischemia. Differential diagnosis does inclu de demyelination. No mass effects are seen.No midline shift. Osseous calvarium is intact. If symptoms persist consider MRI. IMPRESSION: 1. Age related atrophic and chronic small vessel ischemic change without acute intracranial process s een at this time.
--- NOTE | 2017-02-27 19:26 | XR ---
EXAMINATION TYPE: XR chest 2V DATE OF EXAM: 02/27/2017 COMPARISON: 01/18/2017 HISTORY: Shortness of breath TECHNIQUE: Frontal and lateral views of the chest are obtained. FINDINGS: Scattered senescent parenchymal changes noted. Hyperinflation compatible with COPD. No evidence for infiltrate. No evidence for atelectasis. Heart size is stable. Mediastinal structures are stable and grossly unremarkable. No evidence for hilar prominence. Degenerative changes dorsal spine. IMPRESSION: 1. No evidence for acute pulmonary disease.
[2017-02-27 19:29] LABS: INR 5.9 (<1.2)
[2017-02-27 19:34] LABS: Creatine Kinase MB 0.4 ng/mL (0.0-2.4); Troponin I <0.012 ng/mL (0.000-0.034)
--- NOTE | 2017-02-27 20:04 | ED ---
Syncope HPI - General Chief Complaint: Syncope Stated Complaint: syncope Time Seen by Provider: 02/27/17 18:30 Source: patient, EMS Mode of arrival: EMS Limitations: no limitations - History of Present Illness Initial Comments: 26 years old lady passed out today complaining about the headache and left- sided jaw pain nausea and vomiting and now she threw up today 3 times and also complaining about palpitations. She denies shortness of breath does no pleuritic pain does no head injury from the fall today denies any neck pain. Does complaining about headache and no neck pain has some palpitation no chest pain as such but she is a diabetic history of heart disease as well as DVTs in the past and no abdominal pain no frequency urgency dysuria no neuro deficits at this point - Related Data Home Medications Medication Instructions Recorded Confirmed Gabapentin 800 mg PO BID 12/14/13 02/27/17 Nitroglycerin Sl Tabs [Nitrostat] 0.4 mg SUBLINGUAL Q5M PRN 12/14/13 02/27/17 DULoxetine HCL [Cymbalta] 30 mg PO QAM 07/15/14 02/27/17 Furosemide 20 mg PO QAM 05/02/15 02/27/17 Hydrocodone/Acetaminophen 1 tab PO Q8H PRN 05/02/15 02/27/17 [Hydrocodon-Acetaminophn 10-325] Ergocalciferol [Vitamin D2 50,000 unit PO [id number] 08/26/15 02/27/17 (DRISDOL)] Insulin Lispro [humaLOG Kwikpen] 18 unit SQ AC-TID 08/26/15 02/27/17 metFORMIN HCL 1,000 mg PO BID 08/26/15 02/27/17 Lisinopril [Zestril] 2.5 mg PO DAILY 09/13/15 02/27/17 Aspirin EC [Ecotrin Low Dose] 81 mg PO DAILY 12/23/15 02/27/17 Warfarin [Coumadin] 2.5 mg PO TUFR 12/23/15 02/27/17 Warfarin [Coumadin] 7.5 mg PO SUMOWETHSA 12/23/15 02/27/17 traMADol HCL [Ultram] 50 mg PO Q8H PRN 09/28/16 02/27/17 Insulin Glargine,Hum.rec.anlog 70 unit SQ DAILY@1500 01/18/17 02/27/17 [Lantus Solostar] Potassium Chloride ER [K-Dur 10] 10 meq PO BID 01/18/17 02/27/17 Metoclopramide [Reglan] 10 mg PO ACHS PRN 02/27/17 02/27/17 Metoprolol Tartrate [Lopressor] 12.5 mg PO DAILY 02/27/17 02/27/17 Previous Rx's Medication Instructions Recorded Rosuvastatin [Crestor] 10 mg PO HS #0 10/01/16 Allergies Allergy/AdvReac Type Severity Reaction Status Date / Time No Known Allergies Allergy Verified 02/27/17 19:53 Review of Systems ROS Statement: Those systems with pertinent positive or pertinent negative responses have been documented in the HPI. ROS Other: All systems not noted in ROS Statement are negative. Past Medical History Past Medical History: Coronary Artery Disease (CAD), Chest Pain / Angina, COPD, CVA/TIA, Diabetes Mellitus, Deep Vein Thrombosis (DVT), GERD/Reflux, Hyperlipidemia, Hypertension, [place]ocardial Infarction ([place]), Osteoarthritis ([place]), Pulmonary Embolus ([place]) Additional Past Medical History / Comment(s): states "b/p and heart rate running low",CVA on 11-16-16-Increased fatigue,SOB with activity,Loss of appetitie,pain in stomach after eating.Mutiple DVT,mesentaric thrombosis x2,hx GENITAL WARTS, neuropathy,pad,chronic pain syndrome,ddd lumbar region w/ radiculopathy, fell jun 2015 tore rt rotator cuff, pancreatitis, uti, non alcoholic fatty liver, poly neuropathy. Last Myocardial Infarction Date:: 2010 History of Any Multi-Drug Resistant Organisms: None Reported Past Surgical History: Section, Heart Catheterization, Heart Catheterization With Stent, Orthopedic Surgery, Tonsillectomy, Tubal Ligation Additional Past Surgical History / Comment(s): 11 Stents in left leg, fistula left thigh, full mouth teeth extraction, TRAPEASE VENA CAVA FILTER, carpel tunnel, heart stents x4 rca and lad, tumor removal from uterus. Genital warts removed. Past Anesthesia/Blood Transfusion Reactions: No Reported Reaction Date of Last Stent Placement:: May 2016 Past Psychological History: Depression Smoking Status: Former smoker Past Alcohol Use History: None Reported Past Drug Use History: None Reported - Past Family History Mother Family Medical History: Cancer, Congestive Heart Failure (CHF), Diabetes Mellitus, [place]ocardial Infarction ([place]) Father Family Medical History: [place]ocardial Infarction ([place]) Sister(s) Family Medical History: Myocardial Infarction ([place]) Son(s) Family Medical History: Deep Vein Thrombosis (DVT), Pulmonary Embolus General Exam - General Exam Comments Initial Comments: General: The patient is awake and alert, in no distress, and does not appear acutely ill. Skin: Skin is warm and dry and no rashes or lesions are noted. Eye: Pupils are equal, round and reactive to light, extra-ocular movements are intact; there is normal conjunctiva bilaterally. Ears, nose, mouth and throat: There are moist mucous membranes and no oral lesions. Neck: The neck is supple, there is no tenderness or JVD. Cardiovascular: There is a regular rate and rhythm. No murmur, rub or gallop is appreciated. Respiratory: To auscultation bilateral, no wheezing no rhonchi no distress respiratory love noticed Gastrointestinal: Soft, non-distended, non-tender abdomen without masses or organomegaly noted. There is no rebound or guarding present. Bowel sounds are unremarkable. Rectal exam is negative for bright red blood or tarry point Back: There is no tenderness to palpation in the midline. There is no obvious deformity. Musculoskeletal: Normal ROM, no tenderness, There is no pedal edema. There is no calf tenderness or swelling. No cords were appreciated. Neurological: CN II-XII intact, Cranial nerves III through XII are intact. There are no obvious motor or sensory deficits. Coordination appears grossly intact. Speech is normal. Psychiatric: Cooperative, appropriate mood & affect, normal judgment. Limitations: no limitations Course Vital Signs 02/27/17 02/27/17 02/27/17 18:49 20:00 20:28 Temperature 97.4 F L Pulse Rate 79 72 Pulse Rate [ Sitting] Pulse Rate [ Standing] Pulse Rate [ 64 Supine] Respiratory 16 16 Rate Blood Pressure 114/70 96/64 Blood Pressure [Sitting] Blood Pressure [Standing] Blood Pressure 98/63 [Supine] O2 Sat by Pulse 98 97 Oximetry 02/27/17 02/27/17 20:32 21:08 Temperature Pulse Rate 64 Pulse Rate [ 70 Sitting] Pulse Rate [ 90 Standing] Pulse Rate [ 64 Supine] Respiratory 16 Rate Blood Pressure 95/54 Blood Pressure 102/74 [Sitting] Blood Pressure 95/54 [Standing] Blood Pressure 98/63 [Supine] O2 Sat by Pulse 97 Oximetry - Reevaluation(s) Reevaluation #1: 02/27/17 21:27 She was reassessed 3 times, INR is 5.9 and blood pressure still on the lower side considering history of diabetes considering considering his history of heart disease and get him for observation under Dr. Kulkarni's service cooperative cardiogram return tomorrow with the cardiology consult EKG Findings - EKG Comments: EKG Findings:: EKG is sinus rhythm with a ventricular rate of 72 GA interval is 150 QRS duration is 88 QT/QTc is 396/433 review of this EKG shows multiple supraventricular complexes apart from that do not see any ST elevation or ST depression Medical Decision Making - Lab Data Result diagrams: 02/27/17 18:30 02/27/17 18:30 Lab Results 02/27/17 02/27/17 02/27/17 Range/Units 18:30 18:30 18:30 WBC 11.7 H (3.8-10.6) k/uL RBC 5.21 (3.80-5.40) m/uL Hgb 15.3 (11.4-16.0) gm/dL Hct 44.7 (34.0-46.0) % MCV 85.7 (80.0-100.0) fL MCH 29.4 (25.0-35.0) pg MCHC 34.3 (31.0-37.0) g/dL RDW 15.5 (11.5-15.5) % Plt Count 232 (150-450) k/uL Neutrophils % 69 % Lymphocytes % 24 % Monocytes % 4 % Eosinophils % 2 % Basophils % 1 % Neutrophils # 8.1 H (1.3-7.7) k/uL Lymphocytes # 2.9 (1.0-4.8) k/uL Monocytes # 0.4 (0-1.0) k/uL Eosinophils # 0.2 (0-0.7) k/uL Basophils # 0.1 (0-0.2) k/uL PT (9.0-12.0) sec INR (<1.2) APTT (22.0-30.0) sec Sodium 134 L (137-145) mmol/L Potassium 4.1 (3.5-5.1) mmol/L Chloride 95 L (98-107) mmol/L Carbon Dioxide 25 (22-30) mmol/L Anion Gap 14 mmol/L BUN 7 (7-17) mg/dL Creatinine 0.81 (0.52-1.04) mg/dL Est GFR (MDRD) Af Amer >60 (>60 ml/min/1.73 sqM) Est GFR (MDRD) Non-Af >60 (>60 ml/min/1.73 sqM) Glucose 242 H (74-99) mg/dL Calcium 10.7 H (8.4-10.2) mg/dL Total Bilirubin 0.7 (0.2-1.3) mg/dL AST 53 H (14-36) U/L ALT 63 H (9-52) U/L Alkaline Phosphatase 67 (38-126) U/L Total Creatine Kinase 31 (30-135) U/L CK-MB (CK-2) 0.4 (0.0-2.4) ng/mL CK-MB (CK-2) Rel Index 1.3 Troponin I <0.012 (0.000-0.034) ng/mL Total Protein 7.2 (6.3-8.2) g/dL Albumin 4.2 (3.5-5.0) g/dL Stool Occult Blood (Negative) 02/27/17 02/27/17 Range/Units 18:30 20:20 WBC (3.8-10.6) k/uL RBC (3.80-5.40) m/uL Hgb (11.4-16.0) gm/dL Hct (34.0-46.0) % MCV (80.0-100.0) fL MCH (25.0-35.0) pg MCHC (31.0-37.0) g/dL RDW (11.5-15.5) % Plt Count (150-450) k/uL Neutrophils % % Lymphocytes % % Monocytes % % Eosinophils % % Basophils % % Neutrophils # (1.3-7.7) k/uL Lymphocytes # (1.0-4.8) k/uL Monocytes # (0-1.0) k/uL Eosinophils # (0-0.7) k/uL Basophils # (0-0.2) k/uL PT 60.0 H (9.0-12.0) sec INR 5.9 H* (<1.2) APTT 42.4 H (22.0-30.0) sec Sodium (137-145) mmol/L Potassium (3.5-5.1) mmol/L Chloride (98-107) mmol/L Carbon Dioxide (22-30) mmol/L Anion Gap mmol/L BUN (7-17) mg/dL Creatinine (0.52-1.04) mg/dL Est GFR (MDRD) Af Amer (>60 ml/min/1.73 sqM) Est GFR (MDRD) Non-Af (>60 ml/min/1.73 sqM) Glucose (74-99) mg/dL Calcium (8.4-10.2) mg/dL Total Bilirubin (0.2-1.3) mg/dL AST (14-36) U/L ALT (9-52) U/L Alkaline Phosphatase (38-126) U/L Total Creatine Kinase (30-135) U/L CK-MB (CK-2) (0.0-2.4) ng/mL CK-MB (CK-2) Rel Index Troponin I (0.000-0.034) ng/mL Total Protein (6.3-8.2) g/dL Albumin (3.5-5.0) g/dL Stool Occult Blood Negative (Negative) Disposition Clinical Impression: Syncope, Coumadin toxicity, Chest pain Clinical Impression: (Ruled Out): GI bleed Disposition: ADMITTED IP TO THIS [facility] Condition: Good Referrals: Ramirez Balderas MD [Primary Care Provider] - 1-2 days
[2017-02-27] MEDS ORDERED: NITROGLYCERIN SL TABS 0.4 MG TAB SUBLINGUAL PRN (21:28)
[2017-02-27] MEDS ORDERED: METOCLOPRAMIDE 10 MG TAB PO PRN (21:32)
--- NOTE | 2017-02-27 21:35 | XR ---
EXAMINATION TYPE: XR sacrum coccyx DATE OF EXAM: 02/27/2017 CLINICAL HISTORY: pain TECHNIQUE: Three views of the sacrum and coccyx are submitted. COMPARISON: None Sacral alae appear symmetric. Lateral projection demonstrates angulation of the S5 segment and I eben ot exclude fracture. Remainder of the sacrum and coccyx are intact. Degenerative changes L5-S1. Aorto iliac stent partially imaged. Sacroiliac joints are within normal limits. IMPRESSION: Lateral projection demonstrates angulation of the S5 segment and I cannot exclude fractur e.
[2017-02-27] MEDS: MORPHINE SULFATE 2 MG/ML SYRINGE IVP PRN (23:22)
[2017-02-27] MEDS: SODIUM CHLORIDE 0.9% 1,000 ML IV SCH (23:22)
[2017-02-28 01:56] LABS: Creatine Kinase 26 U/L (30-135)
[2017-02-28 02:07] LABS: Creatine Kinase MB 0.6 ng/mL (0.0-2.4); Troponin I <0.012 ng/mL (0.000-0.034)
[2017-02-28 06:54] LABS: Glucose,Whole Blood 146 mg/dL (75-99)
[2017-02-28 07:29] LABS: INR 4.4 (<1.2); Prothrombin Time 43.6 sec (9.0-12.0)
[2017-02-28 07:39] LABS: Cholesterol 110 mg/dL (<200); HDL Cholesterol 30 mg/dL (40-60)
[2017-02-28 07:55] LABS: Creatine Kinase 27 U/L (30-135)
[2017-02-28 08:08] LABS: Creatine Kinase MB 0.5 ng/mL (0.0-2.4); Troponin I <0.012 ng/mL (0.000-0.034)
[2017-02-28] MEDS: HYDROcodone/APAP 10-325MG 1 EACH TAB PO PRN ×2 (08:31→17:43)
[2017-02-28] MEDS ORDERED: NON-FORMULARY DRUG (Aspirin Ec 81 MG) PO SCH (09:00)
--- NOTE | 2017-02-28 09:01 | P.CRDCN ---
History of Present Illness Consult date: 02/28/17 History of present illness: This is a 56-year-old female with history of ischemic heart disease and previous stent placement being followed by Dr. Mancilla regularly. Patient had a last stent placement in May 2015 which was done to the LAD. Patient had a cardiac catheterization in 2016 because of chest pains and was not noted to have any significant progression of the disease. He patient had an admission in September of this year with abdominal pain and symptoms of pancreatitis. Subsequently patient was admitted with this symptom of TIA and slurred speech. Patient had a INGRID examination which was negative for any Cardec source of emboli. Yesterday patient was having abdominal discomfort and severe nausea and vomiting. Following that patient was standing in the kitchen trying to mow some dishes from cupboard to the [place] in the kitchen. Additionally, she felt as if going to pass out on Mrs. his head down. She turned to get to a chair, but apparently fell to the ground. When paramedics came and patient apparently was little incoherent. Patient also mentions having some tightness in the chest. Patient has been feeling well since admission here. Her nausea has cleared. Her cardiac enzymes are negative. Patient has a high INR, probably related to Coumadin. She doesn't appear to be in acute distress at this time. Most probably her symptoms are related to postural hypotension related to nausea and vomiting or vasovagal in nature. An echocardiogram was already done. We'll check her blood pressure for any postural changes. If she remains stable she could be discharged home. Outpatient monitoring could be considered . Review of Systems As per the chart Past Medical History Past Medical History: Coronary Artery Disease (CAD), Chest Pain / Angina, COPD, CVA/TIA, Diabetes Mellitus, Deep Vein Thrombosis (DVT), GERD/Reflux, Hyperlipidemia, Hypertension, Myocardial Infarction (NV), Osteoarthritis (OA), Pulmonary Embolus (PE) Additional Past Medical History / Comment(s): states "b/p and heart rate running low",CVA on 11-16-16-Increased fatigue,SOB with activity,Loss of appetitie,pain in stomach after eating.Mutiple DVT,mesentaric thrombosis x2,hx GENITAL WARTS, neuropathy,pad,chronic pain syndrome,ddd lumbar region w/ radiculopathy, fell jun 2015 tore rt rotator cuff, pancreatitis, uti, non alcoholic fatty liver, poly neuropathy. Last Myocardial Infarction Date:: 2010 History of Any Multi-Drug Resistant Organisms: None Reported Past Surgical History: Section, Heart Catheterization, Heart Catheterization With Stent, Orthopedic Surgery, Tonsillectomy, Tubal Ligation Additional Past Surgical History / Comment(s): 11 Stents in left leg, fistula left thigh, full mouth teeth extraction, TRAPEASE VENA CAVA FILTER, carpel tunnel, heart stents x4 rca and lad, tumor removal from uterus. Genital warts removed. Past Anesthesia/Blood Transfusion Reactions: No Reported Reaction Date of Last Stent Placement:: May 2016 Past Psychological History: Depression Additional Psychological History / Comment(s): Depression r/t health issues. Smoking Status: Current some day smoker Past Alcohol Use History: None Reported Additional Past Alcohol Use History / Comment(s): STARTED SMOKING AT AGE 23. smoked 1/2-1 ppd,no smoking since November Past Drug Use History: None Reported - Past Family History Mother Family Medical History: Cancer, Congestive Heart Failure (CHF), Diabetes Mellitus, Myocardial Infarction (NV) Additional Family Medical History / Comment(s): Ovarian CA Father Family Medical History: Myocardial Infarction (NV) Sister(s) Family Medical History: Myocardial Infarction (NV) Son(s) Family Medical History: Deep Vein Thrombosis (DVT), Pulmonary Embolus Medications and Allergies Home Medications Medication Instructions Recorded Confirmed Type Gabapentin 800 mg PO BID 12/14/13 02/27/17 History Nitroglycerin Sl Tabs [Nitrostat] 0.4 mg SUBLINGUAL Q5M PRN 12/14/13 02/27/17 History DULoxetine HCL [Cymbalta] 30 mg PO QAM 07/15/14 02/27/17 History Furosemide 20 mg PO QAM 05/02/15 02/27/17 History Hydrocodone/Acetaminophen 1 tab PO Q8H PRN 05/02/15 02/27/17 History [Hydrocodon-Acetaminophn 10-325] Ergocalciferol [Vitamin D2 50,000 unit PO [id number] 08/26/15 02/27/17 History (DRISDOL)] Insulin Lispro [humaLOG Kwikpen] 18 unit SQ AC-TID 08/26/15 02/27/17 History metFORMIN HCL 1,000 mg PO BID 08/26/15 02/27/17 History Lisinopril [Zestril] 2.5 mg PO DAILY 09/13/15 02/27/17 History Aspirin EC [Ecotrin Low Dose] 81 mg PO DAILY 12/23/15 02/27/17 History Warfarin [Coumadin] 2.5 mg PO TUFR 12/23/15 02/27/17 History Warfarin [Coumadin] 7.5 mg PO SUMOWETHSA 12/23/15 02/27/17 History traMADol HCL [Ultram] 50 mg PO Q8H PRN 09/28/16 02/27/17 History Insulin Glargine,Hum.rec.anlog 70 unit SQ DAILY@1500 01/18/17 02/27/17 History [Lantus Solostar] Potassium Chloride ER [K-Dur 10] 10 meq PO BID 01/18/17 02/27/17 History Metoclopramide [Reglan] 10 mg PO ACHS PRN 02/27/17 02/27/17 History Metoprolol Tartrate [Lopressor] 12.5 mg PO DAILY 02/27/17 02/27/17 History Allergies Allergy/AdvReac Type Severity Reaction Status Date / Time No Known Allergies Allergy Verified 02/27/17 22:53 Physical Exam Vitals: Vital Signs Temp Pulse Pulse Pulse Pulse Pulse Resp 02/28/17 07:57 98.6 F 62 18 02/28/17 04:00 97.9 F 70 18 02/28/17 03:50 18 02/28/17 00:00 98.1 F 64 18 02/27/17 23:39 20 02/27/17 21:55 60 20 02/27/17 21:08 64 16 02/27/17 20:32 70 90 64 02/27/17 20:28 64 02/27/17 20:00 72 16 02/27/17 18:49 97.4 F L 79 16 BP BP BP BP BP Pulse Ox 02/28/17 07:57 100/54 95 02/28/17 04:00 108/66 100 02/28/17 03:50 02/28/17 00:00 108/68 100 02/27/17 23:39 02/27/17 21:55 103/69 98 02/27/17 21:08 95/54 97 02/27/17 20:32 102/74 95/54 98/63 02/27/17 20:28 98/63 02/27/17 20:00 96/64 97 02/27/17 18:49 114/70 98 Intake and Output 02/27/17 02/28/17 02/28/17 22:59 06:59 14:59 Other: # Voids 1 Weight 89.8 kg 83 kg GENERAL EXAM: Patient is alert and oriented and doesn't appear to be in any acute distress HEENT: Normocephalic. Normal reaction of pupils, equal size, normal range of extraocular motion. No erythema or exudates in the throat. NECK: No masses, no nuchal rigidity. CHEST: No chest wall deformity. LUNGS: Equal air entry with no crackles or wheeze. HEART: S1 and S2 normal with no audible mumurs or gallops. Regular rhythm, femorals equal on both sides.. ABDOMEN: No hepatosplenomegaly, normal bowel sounds, no guarding or rigidity. SKIN: No rashes CENTRAL NERVOUS SYSTEM: No focal deficits. EXTREMITIES: No cyanosis, clubbing or edema. Results 02/27/17 18:30 02/27/17 18:30 Cardiac Enzymes 02/27/17 02/27/17 02/28/17 Range/Units 18:30 18:30 00:22 AST 53 H (14-36) U/L CK-MB (CK-2) 0.4 0.6 (0.0-2.4) ng/mL Troponin I <0.012 <0.012 (0.000-0.034) ng/mL 02/28/17 Range/Units 06:46 AST (14-36) U/L CK-MB (CK-2) 0.5 (0.0-2.4) ng/mL Troponin I <0.012 (0.000-0.034) ng/mL Coagulation 02/27/17 02/28/17 Range/Units 18:30 06:46 PT 60.0 H 43.6 H (9.0-12.0) sec APTT 42.4 H (22.0-30.0) sec Lipids 02/28/17 Range/Units 06:46 Triglycerides 258 H (<150) mg/dL Cholesterol 110 (<200) mg/dL HDL Cholesterol 30 L (40-60) mg/dL CBC 02/27/17 Range/Units 18:30 WBC 11.7 H (3.8-10.6) k/uL RBC 5.21 (3.80-5.40) m/uL Hgb 15.3 (11.4-16.0) gm/dL Hct 44.7 (34.0-46.0) % Plt Count 232 (150-450) k/uL Comprehensive Metabolic Panel 02/27/17 Range/Units 18:30 Sodium 134 L (137-145) mmol/L Potassium 4.1 (3.5-5.1) mmol/L Chloride 95 L (98-107) mmol/L Carbon Dioxide 25 (22-30) mmol/L BUN 7 (7-17) mg/dL Creatinine 0.81 (0.52-1.04) mg/dL Glucose 242 H (74-99) mg/dL Calcium 10.7 H (8.4-10.2) mg/dL AST 53 H (14-36) U/L ALT 63 H (9-52) U/L Alkaline Phosphatase 67 (38-126) U/L Total Protein 7.2 (6.3-8.2) g/dL Albumin 4.2 (3.5-5.0) g/dL Current Medications Generic Name Dose Route Start Last Admin Trade Name Freq PRN Reason Stop Dose Admin Hydrocodone Bitart/Acetaminophen 1 each 02/27/17 21:32 02/28/17 08:31 [place]ford 10 PO 1 each Q8H PRN Administration Pain Aspirin 325 mg 02/28/17 09:00 Aspirin PO DAILY [facility] Atorvastatin Calcium 20 mg 02/28/17 21:00 Lipitor PO HS [facility] Duloxetine HCl 30 mg 02/28/17 09:00 Cymbalta PO QAM [facility] Ergocalciferol 50,000 unit 03/13/17 12:00 Vitamin D2 PO [id number] AGNES Gabapentin 800 mg 02/28/17 09:00 Neurontin PO BID AGNES Sodium Chloride 1,000 mls @ 100 mls/hr 02/27/17 21:30 02/27/17 23:22 Saline 0.9% IV 100 mls/hr .Q10H AGNES Administration Insulin Glargine 70 unit 02/28/17 15:00 Lantus SQ DAILY@1500 [facility] Insulin Human Lispro 18 unit 02/28/17 07:30 Humalog SQ AC-TID AGNES Metformin HCl 1,000 mg 02/28/17 07:30 Glucophage PO BID-W/MEALS AGNES Metoclopramide HCl 10 mg 02/27/17 21:32 Reglan PO ACHS PRN Nausea Metoprolol Tartrate 12.5 mg 02/28/17 09:00 Lopressor PO DAILY AGNES Morphine Sulfate 2 mg 02/27/17 21:28 02/27/17 23:22 Morphine Sulfate (Inj) IVP 2 mg Q5M PRN Administration Chest Pain Nitroglycerin 0.4 mg 02/27/17 21:28 Nitrostat SUBLINGUAL Q5M PRN Chest Pain Potassium Chloride 10 meq 02/28/17 09:00 K-Dur 10 PO BID AGNES Intake and Output 02/27/17 02/28/17 02/28/17 22:59 06:59 14:59 Other: # Voids 1 Weight 89.8 kg 83 kg 02/27/17 18:30 02/27/17 18:30 EKG Interpretations (text) Normal sinus rhythm Assessment and Plan (1) Coumadin toxicity Status: Acute (2) HTN (hypertension) Status: Acute (3) History of DVT (deep vein thrombosis) Status: Acute (4) Hyperlipemia Status: Acute (5) Pancreatitis Status: Acute (6) TIA (transient ischemic attack) Status: Acute (7) Type 2 diabetes mellitus with right diabetic foot infection Status: Acute Plan: This patient is demented with a syncopal episodes. It appears to be vasovagal or postural hypotension related. Rule out cardiac arrhythmias. We'll check her blood pressure for any postural changes. Cardiac enzymes are negative. If the echo Cardigan was negative, patient could be discharged home. Follow-up with Dr. Mancilla as an outpatient. Outpatient cardiac monitoring may be considered
[2017-02-28] MEDS: SODIUM CHLORIDE 0.9% 1,000 ML IV SCH ×2 (10:38→20:50)
[2017-02-28] MEDS: metFORMIN 500 MG TAB PO SCH ×2 (10:38→17:43)
[2017-02-28] MEDS: INSULIN LISPRO (humaLOG) 300 UNIT/3 ML VIAL SQ SCH ×3 (10:38→17:40)
[2017-02-28] MEDS: GABAPENTIN 400 MG CAP PO SCH ×2 (10:39→20:58)
[2017-02-28] MEDS: ASPIRIN 325 MG TAB PO SCH (10:39)
[2017-02-28] MEDS: DULoxetine HCL 30 MG CAPSULE.DR PO SCH (10:39)
[2017-02-28] MEDS: POTASSIUM CHLORIDE ER 10 MEQ TAB.ER.PRT PO SCH ×2 (10:40→20:58)
[2017-02-28] MEDS: METOPROLOL TARTRATE 12.5 MG TAB PO SCH (10:40)
[2017-02-28 11:16] LABS: Hemoglobin A1C 12.6 % (4.2-6.1)
--- NOTE | 2017-02-28 11:32 | ECHOF ---
Referral Reason:Rule out wall motion abnormality MEASUREMENTS -------- HEIGHT: 170.2 cm WEIGHT: 73.5 kg BP: 108/66 RVIDd: 3.3 cm (< 3.3) IVSd: 1.1 cm (0.6 - 1.1) LVIDd: 4.5 cm (3.9 - 5.3) LVPWd: 0.9 cm (0.6 - 1.1) IVSs: 1.4 cm LVIDs: 3.2 cm LVPWs: 1.3 cm LA Diam: 3.0 cm (2.7 - 3.8) LAESV Index (A-L): 24.34 ml/m Ao Diam: 3.6 cm (2.0 - 3.7) AV Cusp: 2.4 cm (1.5 - 2.6) LA Diam: 3.7 cm (2.7 - 3.8) MV EXCURSION: 20.824 mm (> 18.000) MV EF SLOPE: 77 mm/s (70 - 150) EPSS: 0.7 cm MV E Jesus: 0.57 m/s MV DecT: 207 ms MV A Jesus: 0.68 m/s MV E/A Ratio: 0.84 FINDINGS -------- Sinus rhythm. This was a technically adequate study. LV size, wall thickness and systolic function are normal, with an EF greater than 55%. The right ventricle is normal in size. Normal LA size by volume 22+/-6 ml/m2. The right atrial size is normal. The aortic valve is trileaflet, and appears structurally normal. No aortic stenosis or regurgitation. Mild mitral regurgitation is present. Mild tricuspid regurgitation present. Right ventricular systolic pressure is normal at < 35 mmHg. There is no evidence of pulmonary hypertension. Trace/mild (physiologic) pulmonic regurgitation. The aortic root size is normal. There is no pericardial effusion. CONCLUSIONS -------- 1. LV size, wall thickness and systolic function are normal, with an EF greater than 55%. 2. Mild mitral regurgitation is present. 3. Right ventricular systolic pressure is normal at < 35 mmHg. 4. There is no evidence of pulmonary hypertension. 5. Trace/mild (physiologic) pulmonic regurgitation. 6. There is no pericardial effusion. MANIFOLD BUILDER: Ling Madrid RDCS
[2017-02-28 12:14] LABS: Glucose,Whole Blood 330 mg/dL (75-99)
[2017-02-28 13:27] VITALS: BMI 28.6
--- NOTE | 2017-02-28 14:30 | P.HPIM ---
History of Present Illness H&P Date: 02/28/17 Chief Complaint: lightheadedness this will serve both an H&P and discharge summary This a 56-year-old pleasant lady, patient of Dr. Balderas, she has underlying history of CAD, with cardiac stent in May 2016,24/05 ICA, followed by 2 other stents 1 in the LAD in 2011 the other one in the obtuse marginal branch in 2011 as well hypertension and COPD diabetes mellitus type 2, previous multiple DVT and PE requiring chronic anticoagulation followed by Dr. Bill, Needed to the hospital secondary to lightheadedness and syncope. Patient apparently was in the kitchen trying to carry dishes which she felt was very heavy, and thereafter felt lightheadedness and passed out momentarily. This is for a few seconds without any post ictal activity, patient was there after responded appropriately and without any post ictal episodes, this has been going on since November 2016, there is no hypoglycemic events at home, blood sugars are ranging between 227-388 pre-meals, her hemoglobin A1c is around 11,. .douching to the right thoracic area has a bruise, sacrum, this has been x- rayed which failed to reveal any fracture, patient declined any additional imaging on the thoracic bruise that she has,she and was hydrated when seen in the emergency room and was subsequently admitted to observation floor with consults to cardiology. INR was elevated on admission, initial brain CT failed to reveal any bleed, patient does not have any neurologic deficits or headache during her stay her last admission was in November 2016 secondary to TIA like episode,with slurred speech. 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 Review of Systems Constitutional: Reports as per HPI, Denies anorexia, Denies chills, Denies chronic headaches, Denies chronic pain, Denies daytime sleepiness, Denies fatigue, Denies fever, Denies lethargy, Denies malaise, Denies night sweats, Denies poor appetite, Denies sweats, Denies weakness, Denies weight gain, Denies weight loss Ears, nose, mouth and throat: Reports as per HPI, Denies ant. neck pain, Denies bleeding gums, Denies dental pain, Denies dysphagia, Denies epistaxis, Denies headache, Denies hoarseness, Denies mouth pain, Denies nasal congestion, Denies nasal discharge, Denies neck fullness/pressure, Denies neck lump, Denies nose pain, Denies odynophagia, Denies post-nasal drip, Denies sinus pain, Denies sinus pressure, Denies swelling in mouth, Denies swelling in throat, Denies sore throat, Denies vertigo, Denies voice changes Cardiovascular: Reports as per HPI, Denies chest pain, Denies claudication, Denies decreased exercise tolerance, Denies dyspnea on exertion, Denies edema, Denies high blood pressure, Denies irregular heart beat, Denies leg edema, Denies lightheadedness, Denies orthopnea, Denies palpitations, Denies paroxysmal nocturnal dyspnea, Denies phlebitis, Denies rapid heart beat, Denies shortness of breath, Denies syncope Respiratory: Reports as per HPI, Denies congestion, Denies cough, Denies cough with sputum, Denies dyspnea, Denies excessive sputum, Denies hemoptysis, Denies home oxygen, Denies pain, Denies pain on inspiration, Denies pleurisy, Denies respiratory infections, Denies sleep apnea, Denies snoring, Denies wheezing Gastrointestinal: Reports as per HPI, Denies abdominal pain, Denies belching, Denies bloating, Denies BRBPR, Denies change in bowel habits, Denies coffee ground emesis, Denies constipation, Denies diarrhea, Denies dyspepsia, Denies early satiety, Denies excessive gas, Denies heartburn, Denies hematemesis, Denies hematochezia, Denies indigestion, Denies jaundice, Denies lactose intolerance, Denies loss of appetite, Denies melena, Denies nausea, Denies vomiting Genitourinary: Reports as per HPI, Denies abnormal vaginal bleeding, Denies decreased libido, Denies difficulty conceiving, Denies difficulty voiding, Denies dysmenorrhea, Denies dyspareunia, Denies dysuria, Denies flank pain, Denies genital sores, Denies hematuria, Denies hot flashes, Denies incomplete emptying, Denies kidney stones, Denies menorrhagia, Denies mixed incontinence, Denies nocturia, Denies pelvic pain, Denies post void dribbling, Denies , Denies prolapse symptoms, Denies stress incontinence, Denies urge incontinence , Denies urgency, Denies urinary frequency, Denies vaginal discharge, Denies vaginal dryness, Denies vaginal itching, Denies vaginal odor Menstruation: Reports as per HPI, Denies amenorrhea, Denies amenorrhea on BC, Denies currently menstrual, Denies cycle < 21 days, Denies cycle > 35 days, Denies cycle variable, Denies menses 1-7 days, Denies menses 8 or > days, Denies menses variable, Denies period heavy, Denies period light, Denies period normal, Denies period spotting, Denies post hysterectomy, Denies postmenopausal , Denies premenarcheal Musculoskeletal: Reports as per HPI Integumentary: Reports as per HPI, Denies acne, Denies boils, Denies brittle nails, Denies change in hair/nails, Denies color changes, Denies darkening of skin, Denies depigmentation, Denies dryness, Denies foot/leg ulcers, Denies growths, Denies hirsutism, Denies lesions, Denies onychomycosis, Denies pruritus , Denies rash, Denies sores, Denies striae, Denies unusual bruising, Denies wounds Neurological: Reports as per HPI, Denies aphasia, Denies ataxia, Denies balance difficulties, Denies burning pain, Denies change in mentation, Denies change in smell/taste, Denies change in speech, Denies confusion, Denies convulsions, Denies double vision, Denies gait dysfunction, Denies head injury, Denies headaches, Denies hearing difficulties, Denies lack of coordination, Denies loss of vision, Denies memory loss, Denies migraines, Denies motor disturbance, Denies numbness, Denies paralysis, Denies paresthesias, Denies seizures, Denies sensory deficit, Denies spasticity, Denies tic, Denies tingling, Denies transient paralysis, Denies tremors, Denies vertigo, Denies weakness, Denies visual changes Psychiatric: Reports as per HPI, Denies anhedonia, Denies anxiety, Denies anxiety attacks, Denies change in appetite, Denies change in libido, Denies change in sleep habits, Denies confusion, Denies depression, Denies difficulty concentrating, Denies disorientation, Denies hallucinations, Denies hopelessness , Denies hypersomnia, Denies insomnia, Denies irritability, Denies memory loss, Denies mood swings, Denies paranoia, Denies sadness/tearfulness, Denies sleep disturbances, Denies suicidal ideation Endocrine: Reports as per HPI, Denies cold intolerance, Denies deepening of the voice, Denies excessive sweating, Denies excessive thirst, Denies fatigue, Denies flushing, Denies heat intolerance, Denies high blood sugars, Denies increase in ring/shoe/hat size, Denies low blood sugars, Denies nocturia, Denies palpitations, Denies polydipsia, Denies polyphagia, Denies polyuria, Denies proptosis, Denies recent glucocorticoid use, Denies thyroid mass, Denies weight change Hematologic/Lymphatic: Reports as per HPI, Denies easy bleeding, Denies easy bruising, Denies lymphadenopathy, Denies lymphedema, Denies thrombophilia Allergic/Immunologic: Reports as per HPI, Denies allergic rhinitis, Denies anaphylaxis, Denies angioedema, Denies gluten intolerance, Denies persistent infections, Denies seasonal allergies, Denies urticaria, Denies wheezing Past Medical History Past Medical History: Coronary Artery Disease (CAD), Chest Pain / Angina, COPD, CVA/TIA, Diabetes Mellitus, Deep Vein Thrombosis (DVT), GERD/Reflux, Hyperlipidemia, Hypertension, Myocardial Infarction (AR), Osteoarthritis (OA), Pulmonary Embolus (PE) Additional Past Medical History / Comment(s): states "b/p and heart rate running low",CVA on 11-16-16-Increased fatigue,SOB with activity,Loss of appetitie,pain in stomach after eating.Mutiple DVT,mesentaric thrombosis x2,hx GENITAL WARTS, neuropathy,pad,chronic pain syndrome,ddd lumbar region w/ radiculopathy, fell jun 2015 tore rt rotator cuff, pancreatitis, uti, non alcoholic fatty liver, poly neuropathy. Last Myocardial Infarction Date:: 2010 History of Any Multi-Drug Resistant Organisms: None Reported Past Surgical History: Section, Heart Catheterization, Heart Catheterization With Stent, Orthopedic Surgery, Tonsillectomy, Tubal Ligation Additional Past Surgical History / Comment(s): 11 Stents in left leg, fistula left thigh, full mouth teeth extraction, TRAPEASE VENA CAVA FILTER, carpel tunnel, heart stents x4 rca and lad, tumor removal from uterus. Genital warts removed. Past Anesthesia/Blood Transfusion Reactions: No Reported Reaction Date of Last Stent Placement:: May 2016 Past Psychological History: Depression Additional Psychological History / Comment(s): Depression r/t health issues. Smoking Status: Current some day smoker Past Alcohol Use History: None Reported Additional Past Alcohol Use History / Comment(s): STARTED SMOKING AT AGE 23. smoked 1/2-1 ppd,no smoking since November Past Drug Use History: None Reported - Past Family History Mother Family Medical History: Cancer, Congestive Heart Failure (CHF), Diabetes Mellitus, Myocardial Infarction (AR) Additional Family Medical History / Comment(s): Ovarian CA Father Family Medical History: Myocardial Infarction (AR) Sister(s) Family Medical History: Myocardial Infarction (AR) Son(s) Family Medical History: Deep Vein Thrombosis (DVT), Pulmonary Embolus Medications and Allergies Home Medications Medication Instructions Recorded Confirmed Type Gabapentin 800 mg PO BID 12/14/13 02/27/17 History Nitroglycerin Sl Tabs [Nitrostat] 0.4 mg SUBLINGUAL Q5M PRN 12/14/13 02/27/17 History DULoxetine HCL [Cymbalta] 30 mg PO QAM 07/15/14 02/27/17 History Hydrocodone/Acetaminophen 1 tab PO Q8H PRN 05/02/15 02/27/17 History [Hydrocodon-Acetaminophn 10-325] Ergocalciferol [Vitamin D2 50,000 unit PO [id number] 08/26/15 02/27/17 History (DRISDOL)] Insulin Lispro [humaLOG Kwikpen] 18 unit SQ AC-TID 08/26/15 02/27/17 History metFORMIN HCL 1,000 mg PO BID 08/26/15 02/27/17 History Aspirin EC [Ecotrin Low Dose] 81 mg PO DAILY 12/23/15 02/27/17 History Warfarin [Coumadin] 7.5 mg PO SUMOWETHSA 12/23/15 02/27/17 History traMADol HCL [Ultram] 50 mg PO Q8H PRN 09/28/16 02/27/17 History Insulin Glargine,Hum.rec.anlog 70 unit SQ DAILY@1500 01/18/17 02/27/17 History [Lantus Solostar] Metoclopramide [Reglan] 10 mg PO ACHS PRN 02/27/17 02/27/17 History Metoprolol Tartrate [Lopressor] 12.5 mg PO DAILY 02/27/17 02/27/17 History Allergies Allergy/AdvReac Type Severity Reaction Status Date / Time No Known Allergies Allergy Verified 02/27/17 22:53 Physical Exam Vitals: Vital Signs Temp Pulse Pulse Pulse Pulse Pulse Resp 02/28/17 12:00 97.5 F L 61 18 02/28/17 07:57 98.6 F 62 18 02/28/17 04:00 97.9 F 70 18 02/28/17 03:50 18 02/28/17 00:00 98.1 F 64 18 02/27/17 23:39 20 02/27/17 21:55 60 20 02/27/17 21:08 64 16 02/27/17 20:32 70 90 64 02/27/17 20:28 64 02/27/17 20:00 72 16 02/27/17 18:49 97.4 F L 79 16 BP BP BP BP BP Pulse Ox 02/28/17 12:00 109/64 100 02/28/17 07:57 100/54 95 02/28/17 04:00 108/66 100 02/28/17 03:50 02/28/17 00:00 108/68 100 02/27/17 23:39 02/27/17 21:55 103/69 98 02/27/17 21:08 95/54 97 02/27/17 20:32 102/74 95/54 98/63 02/27/17 20:28 98/63 02/27/17 20:00 96/64 97 02/27/17 18:49 114/70 98 Intake and Output 02/27/17 02/28/17 02/28/17 22:59 06:59 14:59 Other: # Voids 1 Weight 89.8 kg 83 kg - Constitutional General appearance: cooperative, no acute distress - EENT Eyes: anicteric sclerae, EOMI, PERRLA, dentition normal, normal appearance ENT: hearing grossly normal, NA/AT, normal oropharynx - Neck Neck: normal ROM - Respiratory Respiratory: bilateral: CTA, negative: diminished, dullness, rales, rhonchi, wheezing - Cardiovascular Rhythm: regular Heart sounds: normal: S1, S2 Abnormal Heart Sounds: no systolic murmur, no diastolic murmur, no rub, no S3 Gallop, no S4 Gallop, no click, no other - Gastrointestinal General gastrointestinal: normal bowel sounds, soft - Integumentary Integumentary: decreased turgor, normal - Neurologic Neurologic: CNII-XII intact, focal deficits (none) - Musculoskeletal Musculoskeletal: gait normal, strength equal bilaterally - Psychiatric Psychiatric: A&O x's 3, appropriate affect, intact judgment & insight Results CBC & Chem 7: 02/27/17 18:30 02/27/17 18:30 Labs: Abnormal Lab Results - Last 24 Hours (Table) 02/27/17 02/27/17 02/27/17 Range/Units 18:30 18:30 18:30 WBC 11.7 H (3.8-10.6) k/uL Neutrophils # 8.1 H (1.3-7.7) k/uL PT 60.0 H (9.0-12.0) sec INR 5.9 H* (<1.2) APTT 42.4 H (22.0-30.0) sec Sodium 134 L (137-145) mmol/L Chloride 95 L (98-107) mmol/L Glucose 242 H (74-99) mg/dL POC Glucose (mg/dL) (75-99) mg/dL Hemoglobin A1c (4.2-6.1) % Calcium 10.7 H (8.4-10.2) mg/dL AST 53 H (14-36) U/L ALT 63 H (9-52) U/L Total Creatine Kinase (30-135) U/L Triglycerides (<150) mg/dL HDL Cholesterol (40-60) mg/dL 02/28/17 02/28/17 02/28/17 Range/Units 00:22 06:46 06:46 WBC (3.8-10.6) k/uL Neutrophils # (1.3-7.7) k/uL PT (9.0-12.0) sec INR (<1.2) APTT (22.0-30.0) sec Sodium (137-145) mmol/L Chloride (98-107) mmol/L Glucose (74-99) mg/dL POC Glucose (mg/dL) (75-99) mg/dL Hemoglobin A1c (4.2-6.1) % Calcium (8.4-10.2) mg/dL AST (14-36) U/L ALT (9-52) U/L Total Creatine Kinase 26 L 27 L (30-135) U/L Triglycerides 258 H (<150) mg/dL HDL Cholesterol 30 L (40-60) mg/dL 02/28/17 02/28/17 02/28/17 Range/Units 06:46 06:46 06:52 WBC (3.8-10.6) k/uL Neutrophils # (1.3-7.7) k/uL PT 43.6 H (9.0-12.0) sec INR 4.4 H (<1.2) APTT (22.0-30.0) sec Sodium (137-145) mmol/L Chloride (98-107) mmol/L Glucose (74-99) mg/dL POC Glucose (mg/dL) 146 H (75-99) mg/dL Hemoglobin A1c 12.6 H (4.2-6.1) % Calcium (8.4-10.2) mg/dL AST (14-36) U/L ALT (9-52) U/L Total Creatine Kinase (30-135) U/L Triglycerides (<150) mg/dL HDL Cholesterol (40-60) mg/dL 02/28/17 Range/Units 12:11 WBC (3.8-10.6) k/uL Neutrophils # (1.3-7.7) k/uL PT (9.0-12.0) sec INR (<1.2) APTT (22.0-30.0) sec Sodium (137-145) mmol/L Chloride (98-107) mmol/L Glucose (74-99) mg/dL POC Glucose (mg/dL) 330 H (75-99) mg/dL Hemoglobin A1c (4.2-6.1) % Calcium (8.4-10.2) mg/dL AST (14-36) U/L ALT (9-52) U/L Total Creatine Kinase (30-135) U/L Triglycerides (<150) mg/dL HDL Cholesterol (40-60) mg/dL Laboratory Results WBC 11.7 k/uL (3.8-10.6) H 02/27/17 18:30 RBC 5.21 m/uL (3.80-5.40) 02/27/17 18:30 Hgb 15.3 gm/dL (11.4-16.0) 02/27/17 18:30 Hct 44.7 % (34.0-46.0) 02/27/17 18:30 MCV 85.7 fL (80.0-100.0) 02/27/17 18:30 MCH 29.4 pg (25.0-35.0) 02/27/17 18:30 MCHC 34.3 g/dL (31.0-37.0) 02/27/17 18:30 RDW 15.5 % (11.5-15.5) 02/27/17 18:30 Plt Count 232 k/uL (150-450) 02/27/17 18:30 Neutrophils % 69 % 02/27/17 18:30 Lymphocytes % 24 % 02/27/17 18:30 Monocytes % 4 % 02/27/17 18:30 Eosinophils % 2 % 02/27/17 18:30 Basophils % 1 % 02/27/17 18:30 Neutrophils # 8.1 k/uL (1.3-7.7) H 02/27/17 18:30 Lymphocytes # 2.9 k/uL (1.0-4.8) 02/27/17 18:30 Monocytes # 0.4 k/uL (0-1.0) 02/27/17 18:30 Eosinophils # 0.2 k/uL (0-0.7) 02/27/17 18:30 Basophils # 0.1 k/uL (0-0.2) 02/27/17 18:30 PT 43.6 sec (9.0-12.0) H 02/28/17 06:46 INR 4.4 (<1.2) H 02/28/17 06:46 APTT 42.4 sec (22.0-30.0) H 02/27/17 18:30 Sodium 134 mmol/L (137-145) L 02/27/17 18:30 Potassium 4.1 mmol/L (3.5-5.1) 02/27/17 18:30 Chloride 95 mmol/L (98-107) L 02/27/17 18:30 Carbon Dioxide 25 mmol/L (22-30) 02/27/17 18:30 Anion Gap 14 mmol/L 02/27/17 18:30 BUN 7 mg/dL (7-17) 02/27/17 18:30 Creatinine 0.81 mg/dL (0.52-1.04) 02/27/17 18:30 Est GFR (MDRD) Af Amer >60 (>60 ml/min/1.73 sqM) 02/27/17 18:30 Est GFR (MDRD) Non-Af >60 (>60 ml/min/1.73 sqM) 02/27/17 18:30 Glucose 242 mg/dL (74-99) H 02/27/17 18:30 POC Glucose (mg/dL) 330 mg/dL (75-99) H 02/28/17 12:11 POC Glu Cushion Sewer ID [place] 02/28/17 12:[address] Glu mg/dL 315 mg/dL 02/28/17 06:46 Hemoglobin A1c 12.6 % (4.2-6.1) H 02/28/17 06:46 Calcium 10.7 mg/dL (8.4-10.2) H 02/27/17 18:30 Total Bilirubin 0.7 mg/dL (0.2-1.3) 02/27/17 18:30 AST 53 U/L (14-36) H 02/27/17 18:30 ALT 63 U/L (9-52) H 02/27/17 18:30 Alkaline Phosphatase 67 U/L (38-126) 02/27/17 18:30 Total Creatine Kinase 27 U/L (30-135) L 02/28/17 06:46 CK-MB (CK-2) 0.5 ng/mL (0.0-2.4) 02/28/17 06:46 CK-MB (CK-2) Rel Index 1.9 02/28/17 06:46 Troponin I <0.012 ng/mL (0.000-0.034) 02/28/17 06:46 Total Protein 7.2 g/dL (6.3-8.2) 02/27/17 18:30 Albumin 4.2 g/dL (3.5-5.0) 02/27/17 18:30 Triglycerides 258 mg/dL (<150) H 02/28/17 06:46 Cholesterol 110 mg/dL (<200) 02/28/17 06:46 LDL Cholesterol, Calc 28 mg/dL (0-99) 02/28/17 06:46 HDL Cholesterol 30 mg/dL (40-60) L 02/28/17 06:46 Stool Occult Blood Negative (Negative) 02/27/17 20:20 Thrombosis Risk Factor Assmnt - Choose All That Apply Each Factor Represents 1 point: Age 41-60 years Each Risk Factor Represents 3 Points: Family history of DVT/PE, History of DVT/ PE Thrombosis Risk Factor Assessment Total Risk Factor Score: 7 Thrombosis Risk Factor Assessment Level: High Risk Assessment and Plan Plan: 1. lightheadedness, recurrent with near syncopal events, hypotension noted on initial evaluation requiring IV hydration, orthostasis was obtained, with marginally acceptable numbers, her Lasix was held and discontinued, consults were made with cardiology with an updated echocardiogram that was performed, lisinopril also was held during this admission and Coumadin was held during this admission 2. Contusion on the thoracic posterior region, with small hematoma measuring approximately 4 cm x 4 cm, patient declined any rib x-rays performed on this, his original x-rays failed to reveal any fractures, 3. Contusion sacrum, [id number] sshows lateral projection ambulation off S5 segment cannot exclude fracture, remainder of the sacrum and coccyx are intactcomputed tomography scan of the lumbar spine will be done with consultation to orthopedic if needed 4. supratherapeutic INR patient is on chronic anticoagulation secondary to multiple DVTs and PEs in the past, held coumadine Coumadin will be readjusted daily INRs 5diabetes mellitus type 2 with hypoosmolar non-ketosis hyperglycemia: without any sign of DKA patient currently is on Lantus 70 units every morning which is maintained and patient's pre-meal insulin NovoLog patient has been very noncompliant with diet and was taking at least 3 cans of sugared soda per day hemoglobin A1c of 11 sugars were more appropriate controlled in the hospital while the patient has been abstaining from soda, 6. Recurrent abdominal pain suspect gastroparesis prior history of pancreatitis the past lipase obtained today was normal at 139, this was fully investigated in the past during her last admission in September 2016 patient needs compliance on her dietary requirements 7 advance ischemic cardiomyopathy and atherosclerotic heart disease: Patient seen cardiology on regular basis. Continue patient on current medication with metoprolol furosemide nitro isosorbide and the Crestor. 8 hypertension: Remain on metoprolol and isosorbide. Zestril 9 chronic DVT and PEs: Patient is on warfarin which is currently on hold PT/INR be done daily. There is no current evidence for hemorrhagic transformation we would restart Coumadin prior to discharge, Lovenox for DVT prophylaxis 10COPD: is on albuterol ipratropium nebulizer up to 4 times a day. 11 hyperlipidemia: Patient remain on Crestor 20 mg daily. 12 severe gastritis: Patient will be on omeprazole 20 mg daily. 13 severe PAD: Patient seen Dr. Bill had an angioplasty of the left leg circulation is slightly but better no sign of infection or gangrene currently. 14 chronic neuropathy: Remain on gabapentin 800 mg twice a day. 15 DVT prophylaxis: Patient is on warfarin PT/INR be done daily. This would be bridged with Lovenox while Coumadin is on hold CODE STATUS: Full code. Expectation from this admission: Patient be in the hospital for more than 2 nights.
[2017-02-28] MEDS ORDERED: INSULIN GLARGINE 100 UNIT/ML 10 ML VIAL SQ SCH (15:00)
--- NOTE | 2017-02-28 15:34 | CT ---
EXAMINATION TYPE: CT sacrum wo con DATE OF EXAM: 02/28/2017 COMPARISON: NONE HISTORY: Fall yesterday. Bruising to tailbone region. CT DLP: 796.00 mGycm Automated exposure control for dose reduction was used. Unenhanced CT of the sacrum was performed in the axial coronal and sagittal planes with bone and soft tissue window settings submitted. FINDINGS: There is an angulated fracture involving the S5 segment with angulation slightly less than 90 degrees . No additional fractures are identified. No significant presacral hematoma. No underlying osseous le ro. The remainder of the sacrum is intact. Sacral alae are symmetric. Visualized iliac structures a nd acetabular structures are intact. No evidence for pelvic mass. Degenerative changes lower lumbar s pine. IMPRESSION: ANGULATED S5 FRACTURE.
[2017-02-28 17:13] LABS: Glucose,Whole Blood 143 mg/dL (75-99)
[2017-02-28 20:00] VITALS: RESP 16
[2017-02-28 20:49] LABS: Glucose,Whole Blood 88 mg/dL (75-99)
[2017-02-28] MEDS ORDERED: ATORVASTATIN 20 MG TAB PO SCH (21:00)
[2017-02-28] MEDS: MORPHINE SULFATE 2 MG/ML SYRINGE IVP PRN (23:35)
[2017-02-28] MEDS ORDERED: MELATONIN 3 MG TABLET PO ONE (23:45)
[2017-03-01 03:26] VITALS: TEMP 98.7
[2017-03-01] MEDS: SODIUM CHLORIDE 0.9% 1,000 ML IV SCH (04:37)
[2017-03-01 06:59] LABS: Glucose,Whole Blood 145 mg/dL (75-99)
[2017-03-01 07:54] VITALS: PULSE 57
[2017-03-01] MEDS: POTASSIUM CHLORIDE ER 10 MEQ TAB.ER.PRT PO SCH (08:47)
[2017-03-01] MEDS: ASPIRIN 325 MG TAB PO SCH (08:48)
[2017-03-01] MEDS: METOPROLOL TARTRATE 12.5 MG TAB PO SCH (08:48)
[2017-03-01] MEDS: metFORMIN 500 MG TAB PO SCH (08:48)
[2017-03-01] MEDS: GABAPENTIN 400 MG CAP PO SCH (08:48)
[2017-03-01] MEDS: DULoxetine HCL 30 MG CAPSULE.DR PO SCH (08:48)
[2017-03-01] MEDS: INSULIN LISPRO (humaLOG) 300 UNIT/3 ML VIAL SQ SCH ×2 (08:50→12:24)
--- NOTE | 2017-03-01 10:50 | P.PN ---
Subjective This a 56-year-old pleasant lady, patient of Dr. Balderas, she has underlying history of CAD, with cardiac stent in May 2016,24/05 ICA, followed by 2 other stents 1 in the LAD in 2011 the other one in the obtuse marginal branch in 2011 as well hypertension and COPD diabetes mellitus type 2, previous multiple DVT and PE requiring chronic anticoagulation followed by Dr. Bill, Needed to the hospital secondary to lightheadedness and syncope. Patient apparently was in the kitchen trying to carry dishes which she felt was very heavy, and thereafter felt lightheadedness and passed out momentarily. This is for a few seconds without any post ictal activity, patient was there after responded appropriately and without any post ictal episodes, this has been going on since November 2016, there is no hypoglycemic events at home, blood sugars are ranging between 227-388 pre-meals, her hemoglobin A1c is around 11,. .douching to the right thoracic area has a bruise, sacrum, this has been x- rayed which failed to reveal any fracture, patient declined any additional imaging on the thoracic bruise that she has,she and was hydrated when seen in the emergency room and was subsequently admitted to observation floor with consults to cardiology. INR was elevated on admission, initial brain CT failed to reveal any bleed, patient does not have any neurologic deficits or headache during her stay her last admission was in November 2016 secondary to TIA like episode,with slurred speech. 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 03/01: The patient was seen and evaluated today. Today the patient denies any dizziness or any further syncopal episodes. Cardiology was consulted, they feel her syncope may be related to vasovagal or postural hypotension related. Cardiac enzymes continue to be negative. Echocardiogram reveals ejection fraction 55%, mild mitral regurgitation, no evidence of pulmonary hypertension. CT of the sacrum did show an angulated S5 fracture. Objective - Vital Signs Vital signs: Vital Signs Temp 98.7 F 03/01/17 07:53 Pulse 57 L 03/01/17 07:53 Resp 16 03/01/17 07:53 BP 134/64 03/01/17 07:53 Pulse Ox 99 03/01/17 09:12 Intake & Output 02/28/17 03/01/17 03/01/17 18:59 06:59 18:59 Intake Total 620 Balance 620 Weight 83 kg Intake: Oral 620 Other: # Voids 1 - Exam - Constitutional General appearance: cooperative, no acute distress - EENT Eyes: anicteric sclerae, EOMI, PERRLA, dentition normal, normal appearance ENT: hearing grossly normal, NA/AT, normal oropharynx - Neck Neck: normal ROM - Respiratory Respiratory: bilateral: CTA, negative: diminished, dullness, rales, rhonchi, wheezing - Cardiovascular Rhythm: regular Heart sounds: normal: S1, S2 Abnormal Heart Sounds: no systolic murmur, no diastolic murmur, no rub, no S3 Gallop, no S4 Gallop, no click, no other - Gastrointestinal General gastrointestinal: normal bowel sounds, soft - Integumentary Integumentary: decreased turgor, normal - Neurologic Neurologic: CNII-XII intact, focal deficits (none) - Musculoskeletal Musculoskeletal: gait normal, strength equal bilaterally - Psychiatric Psychiatric: A&O x's 3, appropriate affect, intact judgment & insight - Labs CBC & Chem 7: 02/27/17 18:30 02/27/17 18:30 Labs: Abnormal Lab Results - Last 24 Hours (Table) 02/28/17 02/28/17 02/28/17 Range/Units 06:46 12:11 17:10 POC Glucose (mg/dL) 330 H 143 H (75-99) mg/dL Hemoglobin A1c 12.6 H (4.2-6.1) % 03/01/17 Range/Units 06:57 POC Glucose (mg/dL) 145 H (75-99) mg/dL Hemoglobin A1c (4.2-6.1) % Assessment and Plan Plan: 1. lightheadedness, recurrent with near syncopal events, hypotension noted on initial evaluation requiring IV hydration, orthostasis was obtained, with marginally acceptable numbers, her Lasix was held and discontinued, consults were made with cardiology with an updated echocardiogram that was performed, lisinopril also was held during this admission and Coumadin was held during this admission 2. Contusion on the thoracic posterior region, with small hematoma measuring approximately 4 cm x 4 cm, patient declined any rib x-rays performed on this, his original x-rays failed to reveal any fractures, 3. Contusion sacrum, x-rayL5-S1 shows lateral projection ambulation off S5 segment, CT of the sacrum showed angulated S5 fracture 4. supratherapeutic INR patient is on chronic anticoagulation secondary to multiple DVTs and PEs in the past, held coumadine Coumadin will be readjusted daily INRs 5. diabetes mellitus type 2 with hypoosmolar non-ketosis hyperglycemia: without any sign of DKA patient currently is on Lantus 70 units every morning which is maintained and patient's pre-meal insulin NovoLog patient has been very noncompliant with diet and was taking at least 3 cans of sugared soda per day hemoglobin A1c of 11 sugars were more appropriate controlled in the hospital while the patient has been abstaining from soda 6. Recurrent abdominal pain suspect gastroparesis prior history of pancreatitis the past lipase obtained today was normal at 139, this was fully investigated in the past during her last admission in September 2016 patient needs compliance on her dietary requirements 7. advance ischemic cardiomyopathy and atherosclerotic heart disease: Patient seen cardiology on regular basis. Continue patient on current medication with metoprolol furosemide nitro isosorbide and the Crestor. 8. hypertension: Remain on metoprolol and isosorbide. Zestril 9. chronic DVT and PEs: Patient is on warfarin which is currently on hold PT/ INR be done daily. There is no current evidence for hemorrhagic transformation we would restart Coumadin prior to discharge, Lovenox for DVT prophylaxis 10. COPD: is on albuterol ipratropium nebulizer up to 4 times a day. 11. hyperlipidemia: Patient remain on Crestor 20 mg daily. 12. severe gastritis: Patient will be on omeprazole 20 mg daily. 13. severe PAD: Patient seen Dr. Bill had an angioplasty of the left leg circulation is slightly but better no sign of infection or gangrene currently. 14. chronic neuropathy: Remain on gabapentin 800 mg twice a day. 15. DVT prophylaxis: Patient is on warfarin PT/INR be done daily. This would be bridged with Lovenox while Coumadin is on hold CODE STATUS: Full code. The above impression and plan of care have been discussed and directed by signing physician. Yola Cassidy nurse practitioner acting as scribe for signing physician.
[2017-03-01 12:30] LABS: Glucose,Whole Blood 146 mg/dL (75-99)
[2017-03-01] MEDS: HYDROcodone/APAP 10-325MG 1 EACH TAB PO PRN (12:37)
[2017-03-01 12:39] VITALS: BP 112/68
--- NOTE | 2017-03-01 17:03 | P.DS ---
Providers Date of admission: 02/27/17 21:28 Attending physician: Torrie Rosenberg Consults: 02/27/17 21:28 Consult Physician Urgent Consulting Provider: Alicia Epperson Consult Reason/Comments: Chest pain Do you want consulting provider notified?: Yes Primary care physician: Ramirez Balderas [facility] Course: This a 56-year-old pleasant lady, patient of Dr. Balderas, she has underlying history of CAD, with cardiac stent in May 2016,24/05 ICA, followed by 2 other stents 1 in the LAD in 2011 the other one in the obtuse marginal branch in 2011 as well hypertension and COPD diabetes mellitus type 2, previous multiple DVT and PE requiring chronic anticoagulation followed by Dr. Bill, Needed to the hospital secondary to lightheadedness and syncope. Patient apparently was in the kitchen trying to carry dishes which she felt was very heavy, and thereafter felt lightheadedness and passed out momentarily. This is for a few seconds without any post ictal activity, patient was there after responded appropriately and without any post ictal episodes, this has been going on since November 2016, there is no hypoglycemic events at home, blood sugars are ranging between 227-388 pre-meals, her hemoglobin A1c is around 11,. .douching to the right thoracic area has a bruise, sacrum, this has been x- rayed which failed to reveal any fracture, patient declined any additional imaging on the thoracic bruise that she has,she and was hydrated when seen in the emergency room and was subsequently admitted to observation floor with consults to cardiology. INR was elevated on admission, initial brain CT failed to reveal any bleed, patient does not have any neurologic deficits or headache during her stay her last admission was in November 2016 secondary to TIA like episode,with slurred speech. 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 03/01 her discharge was withheld secondary to findings on her initial lumbosacral x-ray, she had to undergo CAT scan of the sacrum was performed secondary to the angulated L S5 appearance, it showed S5 angulated fracture without any pelvic hematoma, , patient's pain is controlled at this time INR is 4, no lightheadedness to that no dizziness, blood pressures in the 130s, diuretics has been held Final diagnosis 1. lightheadedness, recurrent with near syncopal events, hypotension noted on initial evaluation requiring IV hydration, orthostasis was obtained, with marginally acceptable numbers, her Lasix was held and discontinued, consults were made with cardiology with an updated echocardiogram that was performed, lisinopril also was held during this admission and Coumadin was held during this admission improved with hydration diuretics has been discontinued 2. Contusion on the thoracic posterior region, with small hematoma 1 cm x 1 cm with a bruise measuring approximately 4 cm x 4 cm, patient declined any rib x- rays performed on this, his original x-rays failed to reveal any fractures, 3. Contusion sacrum, x-rayL5-S1 sshows lateral projection angulation of S5 segment consistent with acute angulated S5 fracture without any pelvic hematoma based on CAT scan cannot exclude fracture, remainder of the sacrum and coccyx are intactcomputed tomography scan of the lumbar spine will be done with no consultation needed orthopedic 4. supratherapeutic INR patient is on chronic anticoagulation secondary to multiple DVTs and PEs in the past, held coumadine Coumadin will be readjusted daily INRs 5diabetes mellitus type 2 with hypoosmolar non-ketosis hyperglycemia: without any sign of DKA patient currently is on Lantus 70 units every morning which is maintained and patient's pre-meal insulin NovoLog patient has been very noncompliant with diet and was taking at least 3 cans of sugared soda per day hemoglobin A1c of 11 sugars were more appropriate controlled in the hospital while the patient has been abstaining from soda, 6. Recurrent abdominal pain suspect gastroparesis prior history of pancreatitis the past lipase obtained today was normal at 139, this was fully investigated in the past during her last admission in September 2016 patient needs compliance on her dietary requirements 7 advance ischemic cardiomyopathy and atherosclerotic heart disease: Patient seen cardiology on regular basis. Continue patient on current medication with metoprolol furosemide nitro isosorbide and the Crestor. 8 hypertension: Remain on metoprolol and isosorbide. Zestril 9 chronic DVT and PEs: Patient is on warfarin which is currently on hold PT/INR be done daily. There is no current evidence for hemorrhagic transformation we would restart Coumadin prior to discharge, Lovenox for DVT prophylaxis 10COPD: is on albuterol ipratropium nebulizer up to 4 times a day. 11 hyperlipidemia: Patient remain on Crestor 20 mg daily. 12 severe gastritis: Patient will be on omeprazole 20 mg daily. 13 severe PAD: Patient seen Dr. Bill had an angioplasty of the left leg circulation is slightly but better no sign of infection or gangrene currently. 14 chronic neuropathy: Remain on gabapentin 800 mg twice a day. 15 DVT prophylaxis: Patient is on warfarin PT/INR be done daily. This would be bridged with Lovenox while Coumadin is on hold CODE STATUS: Full code. Discharge Medication List Gabapentin 800 mg PO BID 12/14/13 [History] Nitroglycerin Sl Tabs [Nitrostat] 0.4 mg SUBLINGUAL Q5M PRN 12/14/13 [History] DULoxetine HCL [Cymbalta] 30 mg PO QAM 07/15/14 [History] Hydrocodone/Acetaminophen [Hydrocodon-Acetaminophn 10-325] 1 tab PO Q8H PRN [History] Ergocalciferol [Vitamin D2 (DRISDOL)] 50,000 unit PO [id number] 08/26/15 [History] Insulin Lispro [humaLOG Kwikpen] 18 unit SQ AC-TID 08/26/15 [History] metFORMIN HCL 1,000 mg PO BID 08/26/15 [History] Aspirin EC [Ecotrin Low Dose] 81 mg PO DAILY 12/23/15 [History] Warfarin [Coumadin] 7.5 mg PO SUMOWETHSA 12/23/15 [History] traMADol HCL [Ultram] 50 mg PO Q8H PRN 09/28/16 [History] Rosuvastatin [Crestor] 10 mg PO HS #0 10/01/16 [Rx] Insulin Glargine,Hum.rec.anlog [Lantus Solostar] 70 unit SQ DAILY@1500 01/18/17 [History] Metoclopramide [Reglan] 10 mg PO ACHS PRN 02/27/17 [History] Metoprolol Tartrate [Lopressor] 12.5 mg PO DAILY 02/27/17 [History] Lisinopril [Zestril] 2.5 mg PO HS #0 02/28/17 [Rx] Warfarin [Coumadin] 2.5 mg PO TUFR #0 02/28/17 [Rx] Patient Condition at Discharge: Good Plan - Discharge Summary New Discharge Prescriptions: Continue Nitroglycerin Sl Tabs [Nitrostat] 0.4 mg SUBLINGUAL Q5M PRN PRN Reason: Chest Pain Gabapentin 800 mg PO BID DULoxetine HCL [Cymbalta] 30 mg PO QAM Hydrocodone/Acetaminophen [Hydrocodon-Acetaminophn 10-325] 1 tab PO Q8H PRN PRN Reason: Pain Ergocalciferol [Vitamin D2 (DRISDOL)] 50,000 unit PO [id number] metFORMIN HCL 1,000 mg PO BID Insulin Lispro [humaLOG Kwikpen] 18 unit SQ AC-TID Warfarin [Coumadin] 7.5 mg PO SUMOWETHSA Aspirin EC [Ecotrin Low Dose] 81 mg PO DAILY traMADol HCL [Ultram] 50 mg PO Q8H PRN PRN Reason: Pain Rosuvastatin [Crestor] 10 mg PO HS #0 Insulin Glargine,Hum.rec.anlog [Lantus Solostar] 70 unit SQ DAILY@1500 Metoprolol Tartrate [Lopressor] 12.5 mg PO DAILY Metoclopramide [Reglan] 10 mg PO ACHS PRN PRN Reason: Nausea Warfarin [Coumadin] 2.5 mg PO TUFR #0 Changed Lisinopril [Zestril] 2.5 mg PO HS #0 Discontinued Furosemide 20 mg PO QAM Potassium Chloride ER [K-Dur 10] 10 meq PO BID Discharge Medication List Gabapentin 800 mg PO BID 12/14/13 [History] Nitroglycerin Sl Tabs [Nitrostat] 0.4 mg SUBLINGUAL Q5M PRN 12/14/13 [History] DULoxetine HCL [Cymbalta] 30 mg PO QAM 07/15/14 [History] Hydrocodone/Acetaminophen [Hydrocodon-Acetaminophn 10-325] 1 tab PO Q8H PRN [History] Ergocalciferol [Vitamin D2 (DRISDOL)] 50,000 unit PO [id number] 08/26/15 [History] Insulin Lispro [humaLOG Kwikpen] 18 unit SQ AC-TID 08/26/15 [History] metFORMIN HCL 1,000 mg PO BID 08/26/15 [History] Aspirin EC [Ecotrin Low Dose] 81 mg PO DAILY 12/23/15 [History] Warfarin [Coumadin] 7.5 mg PO SUMOWETHSA 12/23/15 [History] traMADol HCL [Ultram] 50 mg PO Q8H PRN 09/28/16 [History] Rosuvastatin [Crestor] 10 mg PO HS #0 10/01/16 [Rx] Insulin Glargine,Hum.rec.anlog [Lantus Solostar] 70 unit SQ DAILY@1500 01/18/17 [History] Metoclopramide [Reglan] 10 mg PO ACHS PRN 02/27/17 [History] Metoprolol Tartrate [Lopressor] 12.5 mg PO DAILY 02/27/17 [History] Lisinopril [Zestril] 2.5 mg PO HS #0 02/28/17 [Rx] Warfarin [Coumadin] 2.5 mg PO TUFR #0 02/28/17 [Rx] Follow up Appointment(s)/Referral(s): Deyvi Bill MD [STAFF PHYSICIAN] - 1 Week Ramirez Balderas MD [Primary Care Provider] - 1-2 days Ambulatory/Diagnostic Orders: Basic Metabolic Panel [LAB.AMB] Location: Determined By Patient Complete Blood Count w/diff [LAB.AMB] Location: Determined By Patient Urinalysis [LAB.AMB] Location: Determined By Patient Patient Instructions/Handouts: Syncope (DC) Discharge Disposition: HOME SELF-CARE
[2017-03-13] MEDS ORDERED: ERGOCALCIFEROL 50,000 UNIT CAP PO SCH (12:00)
== END 2017-03-01 13:21 | disposition home or self-care (01) ==
LOC: EC 18:25 → 3OBS 21:28
PROVIDERS: ADMIT Family Medicine; ATTEND Family Medicine
DX: R42 Dizziness and giddiness (principal); R55 Syncope and collapse; I95.9 Hypotension, unspecified; S30.0XXA Contusion of lower back and pelvis, initial encounter; R79.1 Abnormal coagulation profile; Z86.718 Personal history of other venous thrombosis and embolism; E11.9 Type 2 diabetes mellitus without complications; R10.9 Unspecified abdominal pain; I25.5 Ischemic cardiomyopathy; J44.9 Chronic obstructive pulmonary disease, unspecified; K21.9 Gastro-esophageal reflux disease without esophagitis; I25.10 Atherosclerotic heart disease of native coronary artery without angina pectoris; G89.4 Chronic pain syndrome; I25.2 Old myocardial infarction; M51.36 Other intervertebral disc degeneration, lumbar region; F32.9 Major depressive disorder, single episode, unspecified; E11.42 Type 2 diabetes mellitus with diabetic polyneuropathy; G62.9 Polyneuropathy, unspecified; E11.65 Type 2 diabetes mellitus with hyperglycemia; E11.628 Type 2 diabetes mellitus with other skin complications; L08.9 Local infection of the skin and subcutaneous tissue, unspecified; E78.5 Hyperlipidemia, unspecified; I10 Essential (primary) hypertension; T45.515A Adverse effect of anticoagulants, initial encounter; I73.9 Peripheral vascular disease, unspecified; K29.70 Gastritis, unspecified, without bleeding; T45.511A Poisoning by anticoagulants, accidental (unintentional), initial encounter; Z79.899 Other long term (current) drug therapy; Z79.4 Long term (current) use of insulin; Z79.84 Long term (current) use of oral hypoglycemic drugs; Z79.82 Long term (current) use of aspirin; Z79.01 Long term (current) use of anticoagulants; Z86.73 Personal history of transient ischemic attack (TIA), and cerebral infarction without residual deficits; Z86.711 Personal history of pulmonary embolism; Z95.5 Presence of coronary angioplasty implant and graft; Z87.891 Personal history of nicotine dependence; Z91.11 Patient's noncompliance with dietary regimen; W19.XXXA Unspecified fall, initial encounter; Z80.41 Family history of malignant neoplasm of ovary; Z82.49 Family history of ischemic heart disease and other diseases of the circulatory system
CPT/HCPCS: 99285; 96361 ×6; 96374; 96376; 36415; 94760; 93005; 93306; 80061; 80053; 83036; 82550 ×2; 82553 ×2; 84484 ×2; 85025; 85610 ×2; 85730; 82272; 71020; 72220; 70450; 72192; G0378 ×3; J2270 ×2

== ENCOUNTER 2017-03-31 14:38 | Inpatient (IN) | payer MEDICARE, OTHER ==
--- NOTE | 2017-03-31 15:25 | ED ---
General Adult HPI - General Chief complaint: Recheck/Abnormal Lab/Rx Stated complaint: toe problems Source: patient, RN notes reviewed, old records reviewed Mode of arrival: ambulatory Limitations: no limitations - History of Present Illness Initial comments: If complaint and history of present illness is a 56-year-old female with long history of diabetic foot ulcers. The patient reports for the past 5 days been taking antibiotics that was provided by her infectious disease doctor after she had IV therapy for an infected abscess on her right great toe. She reports that the infection return this last week or so. She is now developing some redness and cellulitis on the dorsal surface of her right foot. The callus is breaking down it is foul-smelling. - Related Data Home Medications Medication Instructions Recorded Confirmed Gabapentin 800 mg PO BID 12/14/13 03/31/17 Nitroglycerin Sl Tabs [Nitrostat] 0.4 mg SUBLINGUAL Q5M PRN 12/14/13 03/31/17 DULoxetine HCL [Cymbalta] 30 mg PO QAM 07/15/14 03/31/17 Hydrocodone/Acetaminophen 1 tab PO Q8H PRN 05/02/15 03/31/17 [Hydrocodon-Acetaminophn 10-325] Ergocalciferol [Vitamin D2 50,000 unit PO [id number] 08/26/15 03/31/17 (DRISDOL)] Insulin Lispro [humaLOG Kwikpen] 14 - 18 unit SQ AC-TID 08/26/15 03/31/17 metFORMIN HCL 1,000 mg PO BID 08/26/15 03/31/17 Aspirin EC [Ecotrin Low Dose] 81 mg PO DAILY 12/23/15 03/31/17 Warfarin [Coumadin] 7.5 mg PO SUMOWETHSA 12/23/15 03/31/17 traMADol HCL [Ultram] 50 mg PO Q8H PRN 09/28/16 03/31/17 Insulin Glargine,Hum.rec.anlog 70 unit SQ DAILY@1500 01/18/17 03/31/17 [Lantus Solostar] Furosemide [Lasix] 20 mg PO Q48H 03/31/17 03/31/17 Pantoprazole Sodium [Protonix] 40 mg PO DAILY 03/31/17 03/31/17 Potassium Chloride [K-Tab ER] 10 meq PO BID 03/31/17 03/31/17 Previous Rx's Medication Instructions Recorded Rosuvastatin [Crestor] 10 mg PO HS #0 10/01/16 Warfarin [Coumadin] 2.5 mg PO TUFR #0 02/28/17 Allergies Allergy/AdvReac Type Severity Reaction Status Date / Time No Known Allergies Allergy Verified 03/31/17 15:18 Review of Systems ROS Statement: Those systems with pertinent positive or pertinent negative responses have been documented in the HPI. Review of systems. Patient denies any visual acuity changes but she does states she's been feeling somewhat chills. No chest pain shows breath GI/ problems this time. All systems are reviewed. Past medical problems significant for previous MT, COPD and still smokes occasionally. TIA, insulin-dependent diabetes mellitus, multiple DVTs and she is on Coumadin for emboli from her legs or lungs. GERD, hyperlipidemia, hypertension, osteoarthritis. The patient's surgeries include a , for cardiac stents, 11 stents in her left leg. Tonsillectomy 2 ligation. Family history noncontributory. No known ALLERGIES. As noted above she still smokes occasionally strongly encouraged to stop. ROS Other: All systems not noted in ROS Statement are negative. Past Medical History Past Medical History: Coronary Artery Disease (CAD), Chest Pain / Angina, COPD, CVA/TIA, Diabetes Mellitus, Deep Vein Thrombosis (DVT), GERD/Reflux, Hyperlipidemia, Hypertension, Myocardial Infarction ([place]), Osteoarthritis (OA), Pulmonary Embolus (PE) Additional Past Medical History / Comment(s): states "b/p and heart rate running low",CVA on 11-16-16-Increased fatigue,SOB with activity,Loss of appetitie,pain in stomach after eating.Mutiple DVT,mesentaric thrombosis x2,hx GENITAL WARTS, neuropathy,pad,chronic pain syndrome,ddd lumbar region w/ radiculopathy, fell jun 2015 tore rt rotator cuff, pancreatitis, uti, non alcoholic fatty liver, poly neuropathy. Last Myocardial Infarction Date:: 2010 History of Any Multi-Drug Resistant Organisms: None Reported Past Surgical History: Section, Heart Catheterization, Heart Catheterization With Stent, Orthopedic Surgery, Tonsillectomy, Tubal Ligation Additional Past Surgical History / Comment(s): 11 Stents in left leg, fistula left thigh, full mouth teeth extraction, TRAPEASE VENA CAVA FILTER, carpel tunnel, heart stents x4 rca and lad, tumor removal from uterus. Genital warts removed. Past Anesthesia/Blood Transfusion Reactions: No Reported Reaction Date of Last Stent Placement:: May 2016 Past Psychological History: Depression Smoking Status: Current some day smoker Past Alcohol Use History: None Reported Past Drug Use History: None Reported - Past Family History Mother Family Medical History: Cancer, Congestive Heart Failure (CHF), Diabetes Mellitus, Myocardial Infarction ([place]) Additional Family Medical History / Comment(s): Ovarian CA Father Family Medical History: Myocardial Infarction ([place]) Sister(s) Family Medical History: Myocardial Infarction ([place]) Son(s) Family Medical History: Deep Vein Thrombosis (DVT), Pulmonary Embolus General Exam - General Exam Comments Initial Comments: General: The patient is awake and alert, complains of pain to her right great toe. There is the same toe that was infected last year for which she received IV antibiotics. She also complains some chills. Temp 98.6 pulse 83 respiratory rate 18 pulse ox 98% room air blood pressure 140/72 Eye: Pupils are equal, round and reactive to light, extra-ocular movements are intact ; there is normal conjunctiva bilaterally. No signs of icterus. Ears, nose, mouth and throat: There are moist mucous membranes and no oral lesions. Neck: The neck is supple, there is no tenderness no anterior cervical lymphadenopathy. Cardiovascular: There is a regular rate and rhythm. No murmur, rub or gallop is appreciated. Respiratory: Lungs are clear to auscultation, respirations are non-labored, breath sounds are equal. No wheezes, stridor, rales, or rhonchi. Gastrointestinal: Soft, non-distended, non-tender abdomen without masses or organomegaly noted. There is no rebound or guarding present. No CVA tenderness. Bowel sounds are unremarkable. Back: There is no tenderness to palpation in the midline. There is no obvious deformity. No rashes noted. Musculoskeletal: Normal full range of motion of upper and lower extremities. Patient does have necrotic foul-smelling callus on the [place] of her right great toe. Culture taken of the area. She also has developing redness with warmth and tenderness over the dorsal surface of that same foot. Neurovascular status appears to be intact. Neurological: No focal or lateralizing findings Skin: Developing cellulitis dorsal surface right foot Limitations: no limitations Course Vital Signs 03/31/17 03/31/17 14:44 15:49 Temperature 98.6 F Pulse Rate 83 79 Respiratory 18 18 Rate Blood Pressure 148/72 127/65 O2 Sat by Pulse 98 94 L Oximetry Medical Decision Making - Medical Decision Making X-ray of the foot was done and will be reviewed by the radiologist. Soft tissue irregularity noted at the base of the right great toe. Bone appears to be intact. Labs show white count 12.8 hemoglobin 12.9 hematocrit of 36.9 Case is discussed with Dr. Balderas. He recommends vancomycin with consultation from Dr. Vu. - Lab Data Result diagrams: 03/31/17 15:36 03/31/17 15:36 Lab Results 03/31/17 03/31/17 Range/Units 15:36 15:36 WBC 12.8 H (3.8-10.6) k/uL RBC 4.28 (3.80-5.40) m/uL Hgb 12.9 (11.4-16.0) gm/dL Hct 36.9 (34.0-46.0) % MCV 86.3 (80.0-100.0) fL MCH 30.1 (25.0-35.0) pg MCHC 34.8 (31.0-37.0) g/dL RDW 14.8 (11.5-15.5) % Plt Count 228 (150-450) k/uL Neutrophils % 74 % Lymphocytes % 18 % Monocytes % 5 % Eosinophils % 2 % Basophils % 1 % Neutrophils # 9.4 H (1.3-7.7) k/uL Lymphocytes # 2.3 (1.0-4.8) k/uL Monocytes # 0.6 (0-1.0) k/uL Eosinophils # 0.3 (0-0.7) k/uL Basophils # 0.1 (0-0.2) k/uL Sodium 139 (137-145) mmol/L Potassium 4.1 (3.5-5.1) mmol/L Chloride 101 (98-107) mmol/L Carbon Dioxide 25 (22-30) mmol/L Anion Gap 13 mmol/L BUN 7 (7-17) mg/dL Creatinine 0.80 (0.52-1.04) mg/dL Est GFR (MDRD) Af Amer >60 (>60 ml/min/1.73 sqM) Est GFR (MDRD) Non-Af >60 (>60 ml/min/1.73 sqM) Glucose 225 H (74-99) mg/dL Calcium 9.6 (8.4-10.2) mg/dL Total Bilirubin 0.7 (0.2-1.3) mg/dL AST 29 (14-36) U/L ALT 37 (9-52) U/L Alkaline Phosphatase 71 (38-126) U/L Total Protein 6.9 (6.3-8.2) g/dL Albumin 3.9 (3.5-5.0) g/dL Disposition Clinical Impression: Right foot infection, Cellulitis of right foot due to methicillin-resistant Staphylococcus aureus Disposition: ADMITTED IP TO THIS HOSP Condition: Serious Referrals: Ramirez Balderas MD [Primary Care Provider] - 1-2 days
[2017-03-31] MEDS ORDERED: HYDROmorphone 1 MG/ML 1 ML SYRINGE IVP STA (15:37)
[2017-03-31] MEDS: SODIUM CHLORIDE 0.9% 1,000 ML IV SCH ×2 (15:44→17:44)
[2017-03-31 15:45] LABS: Basophils # (A) 0.1 k/uL (0-0.2); Basophils % (A) 1 %; CHCM 33.8; Eosinophils # (A) 0.3 k/uL (0-0.7); Eosinophils % (A) 2 %; HCT 36.9 % (34.0-46.0); HDW 3.04; HGB 12.9 gm/dL (11.4-16.0); Luc # (Auto) 0.13; Luc % (Auto) 1; Lymphocytes # (A) 2.3 k/uL (1.0-4.8); Lymphocytes % (A) 18 %; MCH 30.1 pg (25.0-35.0); MCHC 34.8 g/dL (31.0-37.0); MCV 86.3 fL (80.0-100.0); Mean Platelet Volume 8.5; Monocytes # (A) 0.6 k/uL (0-1.0); Monocytes % (A) 5 %; Neutrophils # (A) 9.4 k/uL (1.3-7.7); Neutrophils % (A) 74 %; RBC 4.28 m/uL (3.80-5.40); RDW 14.8 % (11.5-15.5); WBC 12.8 k/uL (3.8-10.6); WBC (Perox) 13.09
--- NOTE | 2017-03-31 15:53 | XR ---
EXAMINATION TYPE: XR foot complete RT DATE OF EXAM: 03/31/2017 CLINICAL HISTORY: Infection of the medial aspect of the right great toe. TECHNIQUE: Frontal, lateral, and oblique images of the right foot are obtained. COMPARISON: None FINDINGS: There is no acute fracture/dislocation evident in the right foot. Subcutaneous emphysema i s seen of the plantar and medial aspect of the right great toe at the interphalangeal joint. This jorge luis roximates the joint space. Although no discrete periosteal reaction or cortical erosions are evident at this time early osteomyelitis is not excluded. Diffuse soft tissue swelling is also seen circumfer entially of the great toe and generally of the foot. IMPRESSION: Subcutaneous emphysema at the plantar and medial aspect of the interphalangeal joint of t he first digit without discrete cortical erosion or periosteal reaction, however this approximates th e joint space and early osteomyelitis is not excluded.
[2017-03-31 15:55] LABS: ALT 37 U/L (9-52); AST 29 U/L (14-36); Alkaline Phosphatase 71 U/L (38-126); Anion Gap 13 mmol/L; Blood Urea Nitrogen 7 mg/dL (7-17); Calcium 9.6 mg/dL (8.4-10.2); Carbon Dioxide 25 mmol/L (22-30); Chloride 101 mmol/L (98-107); Glucose 225 mg/dL (74-99); Non-African American GFR(MDRD) >60 (>60 ml/min/1.73 sqM); Potassium 4.1 mmol/L (3.5-5.1); Sodium 139 mmol/L (137-145); Total Bilirubin 0.7 mg/dL (0.2-1.3); Total Protein 6.9 g/dL (6.3-8.2)
[2017-03-31] MEDS ORDERED: IV VANCOMYCIN PER PHARMACY 1 EACH MISC MISCELLANE PRN (15:57)
[2017-03-31] MEDS ORDERED: NALOXONE 0.4 MG/ML 1 ML VIAL IV PRN (16:00)
[2017-03-31] MEDS ORDERED: ACETAMINOPHEN TAB 325 MG TAB PO PRN (16:00)
[2017-03-31] MEDS ORDERED: VANCOMYCIN 1,500 MG in SODIUM CHLORIDE 0.9% 250 ML IVPB ONE (16:30)
[2017-03-31 16:44] LABS: INR 3.3 (<1.2); Prothrombin Time 31.8 sec (9.0-12.0)
[2017-03-31 17:24] LABS: Glucose,Whole Blood 169 mg/dL (75-99)
[2017-03-31] MEDS ORDERED: NON-FORMULARY DRUG (Insulin Lispro [Humalog Kwikpen] 0 UNIT) SQ SCH (17:30)
[2017-03-31] MEDS ORDERED: traMADol 50 MG TAB PO PRN (18:28)
[2017-03-31] MEDS: WARFARIN 7.5 MG TAB PO SCH (18:47)
[2017-03-31] MEDS: INSULIN LISPRO (humaLOG) 300 UNIT/3 ML VIAL SQ SCH ×2 (18:48→20:49)
[2017-03-31] MEDS: HYDROcodone/APAP 10-325MG 1 EACH TAB PO PRN (18:53)
[2017-03-31 20:15] LABS: Hemoglobin A1C 10.3 % (4.2-6.1)
[2017-03-31 20:34] VITALS: BMI 30.8
[2017-03-31 20:42] LABS: Glucose,Whole Blood 154 mg/dL (75-99)
[2017-03-31] MEDS: metFORMIN 500 MG TAB PO SCH (20:48)
[2017-03-31] MEDS: GABAPENTIN 400 MG CAP PO SCH (20:48)
[2017-03-31] MEDS: POTASSIUM CHLORIDE ER 10 MEQ TAB.ER.PRT PO SCH (20:48)
[2017-03-31] MEDS ORDERED: ATORVASTATIN 20 MG TAB PO SCH (21:00)
[2017-03-31] MEDS: HYDROmorphone 1 MG/ML 1 ML SYRINGE IV PRN (22:53)
[2017-03-31] MEDS: NICOTINE 14MG/24HR PATCH TRANSDERM SCH (23:00)
[2017-04-01] MEDS: VANCOMYCIN 1,500 MG in SODIUM CHLORIDE 0.9% 250 ML IVPB SCH ×2 (06:13→20:49)
[2017-04-01] MEDS: HYDROmorphone 1 MG/ML 1 ML SYRINGE IV PRN ×3 (06:17→18:04)
[2017-04-01 07:24] LABS: Glucose,Whole Blood 134 mg/dL (75-99)
[2017-04-01] MEDS: FUROSEMIDE 20 MG TAB PO SCH (08:16)
[2017-04-01] MEDS: INSULIN LISPRO (humaLOG) 300 UNIT/3 ML VIAL SQ SCH ×7 (08:16→21:09)
[2017-04-01] MEDS: PANTOPRAZOLE 40 MG TABLET PO SCH (08:16)
[2017-04-01] MEDS: POTASSIUM CHLORIDE ER 10 MEQ TAB.ER.PRT PO SCH ×2 (08:16→20:49)
[2017-04-01] MEDS: GABAPENTIN 400 MG CAP PO SCH ×2 (08:16→20:49)
[2017-04-01] MEDS: NICOTINE 14MG/24HR PATCH TRANSDERM SCH (08:16)
[2017-04-01] MEDS: DULoxetine HCL 30 MG CAPSULE.DR PO SCH (08:16)
[2017-04-01] MEDS: metFORMIN 500 MG TAB PO SCH ×2 (08:16→20:49)
[2017-04-01] MEDS: ASPIRIN 81 MG CHEW PO SCH (08:17)
[2017-04-01 09:04] LABS: INR 3.1 (<1.2); Prothrombin Time 30.4 sec (9.0-12.0)
[2017-04-01 09:21] LABS: Basophils % (A) 0 %; CH 29.2; CHCM 33.2; Eosinophils # (A) 0.3 k/uL (0-0.7); Eosinophils % (A) 3 %; HCT 34.6 % (34.0-46.0); HDW 3.03; HGB 11.7 gm/dL (11.4-16.0); Luc % (Auto) 1; Lymphocytes # (A) 2.7 k/uL (1.0-4.8); Lymphocytes % (A) 30 %; MCH 29.8 pg (25.0-35.0); MCHC 33.7 g/dL (31.0-37.0); MCV 88.4 fL (80.0-100.0); Mean Platelet Volume 7.1; Monocytes # (A) 0.4 k/uL (0-1.0); Monocytes % (A) 5 %; Neutrophils # (A) 5.4 k/uL (1.3-7.7); Neutrophils % (A) 61 %; RBC 3.91 m/uL (3.80-5.40); RDW 15.1 % (11.5-15.5); WBC 8.9 k/uL (3.8-10.6); WBC (Perox) 9.22
[2017-04-01 09:34] LABS: ALT 34 U/L (9-52); AST 27 U/L (14-36); Alkaline Phosphatase 59 U/L (38-126); Anion Gap 10 mmol/L; Blood Urea Nitrogen 8 mg/dL (7-17); Calcium 9.3 mg/dL (8.4-10.2); Carbon Dioxide 25 mmol/L (22-30); Chloride 103 mmol/L (98-107); Glucose 154 mg/dL (74-99); Non-African American GFR(MDRD) >60 (>60 ml/min/1.73 sqM); Potassium 4.4 mmol/L (3.5-5.1); Sodium 138 mmol/L (137-145); Total Bilirubin 0.4 mg/dL (0.2-1.3); Total Protein 5.7 g/dL (6.3-8.2)
[2017-04-01 11:12] LABS: Erythrocyte Sedimentation Rate 40 mm/hr (0-20)
[2017-04-01] MEDS: SODIUM CHLORIDE 0.9% 1,000 ML IV SCH ×2 (11:23)
[2017-04-01 11:43] LABS: Glucose,Whole Blood 116 mg/dL (75-99)
[2017-04-01] MEDS: ONDANSETRON 4 MG/2 ML VIAL IVP PRN (13:04)
[2017-04-01] MEDS: COLLAGENASE 250 UNIT/GM OINTMENT 30 GM TUBE TOPICAL SCH (14:24)
[2017-04-01] MEDS: INSULIN GLARGINE 100 UNIT/ML 10 ML VIAL SQ SCH (14:33)
[2017-04-01] MEDS: HYDROcodone/APAP 10-325MG 1 EACH TAB PO PRN (14:53)
--- NOTE | 2017-04-01 14:59 | P.GSCN ---
History of Present Illness History of present illness: 56-year-old diabetic female patient is known to me from the past she came to the emergency room right big toe infected callus plantar aspect he has been started on IV antibiotic she had a callus formation noted in the past which was healed by IV antibiotic under care of Dr. Vu patient had a culture done which are pending Past history patient had history of 4 chronic DVT in the past she had a multiple vascular intervention done for a venous occlusive disease in [place] examination neck is supple no bruit appreciated Chest clear auscultation abdomen soft Vascular examination femorals are palpable bilateral dorsal pedis is palpable patient has infected callus right foot plantar aspect Plan is we'll use Santyl cream for the wound IV antibiotic I will discuss with Dr. Vu we will treat with the [place] and IV antibiotic and if she needs a deep debridement we will do the I have discussed with her because of nature of wound seems to be pretty deep on the plantar aspect if this does not heal by is debridement she will need needing a toe amputation follow with you thank very much Past Medical History Past Medical History: Coronary Artery Disease (CAD), Chest Pain / Angina, COPD, CVA/TIA, Diabetes Mellitus, Deep Vein Thrombosis (DVT), GERD/Reflux, Hyperlipidemia, Hypertension, Myocardial Infarction ([place]), Osteoarthritis (OA), Pulmonary Embolus (PE) Additional Past Medical History / Comment(s): states "b/p and heart rate running low",CVA on 11-16-16-Increased fatigue,SOB with activity,Loss of appetitie,pain in stomach after eating.Mutiple DVT,mesentaric thrombosis x2,hx GENITAL WARTS, neuropathy,pad,chronic pain syndrome,ddd lumbar region w/ radiculopathy, fell jun 2015 tore rt rotator cuff, pancreatitis, uti, non alcoholic fatty liver, poly neuropathy. Last Myocardial Infarction Date:: 2010 History of Any Multi-Drug Resistant Organisms: None Reported Past Surgical History: Section, Heart Catheterization, Heart Catheterization With Stent, Orthopedic Surgery, Tonsillectomy, Tubal Ligation Additional Past Surgical History / Comment(s): 11 Stents in left leg, fistula left thigh, full mouth teeth extraction, TRAPEASE VENA CAVA FILTER, carpel tunnel, heart stents x4 rca and lad, tumor removal from uterus. Genital warts removed, INGRID. Past Anesthesia/Blood Transfusion Reactions: No Reported Reaction Date of Last Stent Placement:: May 2016 Past Psychological History: Depression Additional Psychological History / Comment(s): Depression r/t health issues. Smoking Status: Current some day smoker Past Alcohol Use History: None Reported Additional Past Alcohol Use History / Comment(s): STARTED SMOKING AT AGE 23. smoked 1/2-1 ppd, still smoking, level depends on what pt. is doing Past Drug Use History: None Reported - Past Family History Mother Family Medical History: Cancer, Congestive Heart Failure (CHF), Diabetes Mellitus, Myocardial Infarction ([place]) Additional Family Medical History / Comment(s): Ovarian CA. Mother at age 69. Father Family Medical History: Coronary Artery Disease (CAD), Myocardial Infarction ([place] ) Additional Family Medical History / Comment(s): Father at age 70. Sister(s) Family Medical History: Myocardial Infarction ([place]) Additional Family Medical History / Comment(s): Patient has one sister with myocardial infarction at age 55. Son(s) Family Medical History: Deep Vein Thrombosis (DVT), Pulmonary Embolus Additional Family Medical History / Comment(s): Patient has 2 sons and one has history of DVT and pulmonary embolism. Patient does not have any daughters. Patient does not have any brothers. Medications and Allergies Home Medications Medication Instructions Recorded Confirmed Type Gabapentin 800 mg PO BID 12/14/13 03/31/17 History Nitroglycerin Sl Tabs [Nitrostat] 0.4 mg SUBLINGUAL Q5M PRN 12/14/13 03/31/17 History DULoxetine HCL [Cymbalta] 30 mg PO QAM 07/15/14 03/31/17 History Hydrocodone/Acetaminophen 1 tab PO Q8H PRN 05/02/15 03/31/17 History [Hydrocodon-Acetaminophn 10-325] Ergocalciferol [Vitamin D2 50,000 unit PO [id number] 08/26/15 03/31/17 History (DRISDOL)] Insulin Lispro [humaLOG Kwikpen] 14 - 18 unit SQ AC-TID 08/26/15 03/31/17 History metFORMIN HCL 1,000 mg PO BID 08/26/15 03/31/17 History Aspirin EC [Ecotrin Low Dose] 81 mg PO DAILY 12/23/15 03/31/17 History Warfarin [Coumadin] 7.5 mg PO SUMOWETHSA 12/23/15 03/31/17 History traMADol HCL [Ultram] 50 mg PO Q8H PRN 09/28/16 03/31/17 History Insulin Glargine,Hum.rec.anlog 70 unit SQ DAILY@1500 01/18/17 03/31/17 History [Lantus Solostar] Furosemide [Lasix] 20 mg PO Q48H 03/31/17 03/31/17 History Pantoprazole Sodium [Protonix] 40 mg PO DAILY 03/31/17 03/31/17 History Potassium Chloride [K-Tab ER] 10 meq PO BID 03/31/17 03/31/17 History Allergies Allergy/AdvReac Type Severity Reaction Status Date / Time No Known Allergies Allergy Verified 03/31/17 15:18 Surgical - Exam Vital Signs Temp Pulse Resp BP Pulse Ox 98.6 F 83 18 148/72 98 03/31/17 14:44 03/31/17 14:44 03/31/17 14:44 03/31/17 14:44 03/31/17 14:44 Results - Labs 04/01/17 08:23 04/01/17 08:23 Abnormal Lab Results - Last 24 Hours (Table) 03/31/17 03/31/17 03/31/17 Range/Units 15:30 15:36 15:36 WBC 12.8 H (3.8-10.6) k/uL Neutrophils # 9.4 H (1.3-7.7) k/uL ESR (0-20) mm/hr PT 31.8 H (9.0-12.0) sec INR 3.3 H (<1.2) Glucose 225 H (74-99) mg/dL POC Glucose (mg/dL) (75-99) mg/dL Hemoglobin A1c (4.2-6.1) % Total Protein (6.3-8.2) g/dL Albumin (3.5-5.0) g/dL 03/31/17 03/31/17 03/31/17 Range/Units 15:36 17:20 20:41 WBC (3.8-10.6) k/uL Neutrophils # (1.3-7.7) k/uL ESR (0-20) mm/hr PT (9.0-12.0) sec INR (<1.2) Glucose (74-99) mg/dL POC Glucose (mg/dL) 169 H 154 H (75-99) mg/dL Hemoglobin A1c 10.3 H (4.2-6.1) % Total Protein (6.3-8.2) g/dL Albumin (3.5-5.0) g/dL 04/01/17 04/01/17 04/01/17 Range/Units 07:05 08:23 08:23 WBC (3.8-10.6) k/uL Neutrophils # (1.3-7.7) k/uL ESR 40 H (0-20) mm/hr PT 30.4 H (9.0-12.0) sec INR 3.1 H (<1.2) Glucose (74-99) mg/dL POC Glucose (mg/dL) 134 H (75-99) mg/dL Hemoglobin A1c (4.2-6.1) % Total Protein (6.3-8.2) g/dL Albumin (3.5-5.0) g/dL 04/01/17 04/01/17 Range/Units 08:23 11:40 WBC (3.8-10.6) k/uL Neutrophils # (1.3-7.7) k/uL ESR (0-20) mm/hr PT (9.0-12.0) sec INR (<1.2) Glucose 154 H (74-99) mg/dL POC Glucose (mg/dL) 116 H (75-99) mg/dL Hemoglobin A1c (4.2-6.1) % Total Protein 5.7 L (6.3-8.2) g/dL Albumin 3.2 L (3.5-5.0) g/dL Microbiology - Last 24 Hours (Table) 03/31/17 15:36 Gram Stain - Preliminary Foot - Right Wound Culture - Preliminary Diabetes panel 03/31/17 03/31/17 04/01/17 Range/Units 15:36 15:36 08:23 Sodium 139 138 (137-145) mmol/L Potassium 4.1 4.4 (3.5-5.1) mmol/L Chloride 101 103 (98-107) mmol/L Carbon Dioxide 25 25 (22-30) mmol/L BUN 7 8 (7-17) mg/dL Creatinine 0.80 0.82 (0.52-1.04) mg/dL Glucose 225 H 154 H (74-99) mg/dL Hemoglobin A1c 10.3 H (4.2-6.1) % Calcium 9.6 9.3 (8.4-10.2) mg/dL AST 29 27 (14-36) U/L ALT 37 34 (9-52) U/L Alkaline Phosphatase 71 59 (38-126) U/L Total Protein 6.9 5.7 L (6.3-8.2) g/dL Albumin 3.9 3.2 L (3.5-5.0) g/dL Calcium panel 03/31/17 04/01/17 Range/Units 15:36 08:23 Calcium 9.6 9.3 (8.4-10.2) mg/dL Albumin 3.9 3.2 L (3.5-5.0) g/dL Pituitary panel 03/31/17 04/01/17 Range/Units 15:36 08:23 Sodium 139 138 (137-145) mmol/L Potassium 4.1 4.4 (3.5-5.1) mmol/L Chloride 101 103 (98-107) mmol/L Carbon Dioxide 25 25 (22-30) mmol/L BUN 7 8 (7-17) mg/dL Creatinine 0.80 0.82 (0.52-1.04) mg/dL Glucose 225 H 154 H (74-99) mg/dL Calcium 9.6 9.3 (8.4-10.2) mg/dL Adrenal panel 03/31/17 04/01/17 Range/Units 15:36 08:23 Sodium 139 138 (137-145) mmol/L Potassium 4.1 4.4 (3.5-5.1) mmol/L Chloride 101 103 (98-107) mmol/L Carbon Dioxide 25 25 (22-30) mmol/L BUN 7 8 (7-17) mg/dL Creatinine 0.80 0.82 (0.52-1.04) mg/dL Glucose 225 H 154 H (74-99) mg/dL Calcium 9.6 9.3 (8.4-10.2) mg/dL Total Bilirubin 0.7 0.4 (0.2-1.3) mg/dL AST 29 27 (14-36) U/L ALT 37 34 (9-52) U/L Alkaline Phosphatase 71 59 (38-126) U/L Total Protein 6.9 5.7 L (6.3-8.2) g/dL Albumin 3.9 3.2 L (3.5-5.0) g/dL
--- NOTE | 2017-04-01 15:48 | P.HPIM ---
History of Present Illness H&P Date: 04/01/17 Chief Complaint: Diabetic foot ulcer This is a 56-year-old female patient of Dr. Balderas with history of CAD , with cardiac stent in May 2016,24/05 ICA, followed by 2 other stents 1 in the LAD in 2011 the other one in the obtuse marginal branch in 2011 as well hypertension and COPD diabetes mellitus type 2, previous multiple DVT and PE requiring chronic anticoagulation followed by Dr. Bill, patient was recently hospitalized at [facility] in 02/28/2017 after she developed to have a significant lightheadedness while she was walking in the kitchen suddenly passed out and she ended up having neuro workup that was negative including ultrasound of the carotid echocardiogram and EEG along with a computed tomography scan of the brain that showed benign meningioma probably, patient stated that she had another episode of syncope about November 2016 at that time, patient was feeling better after she was seen and cardiology and she was taken off her metoprolol and lisinopril and the patient developed to have a significant callus to the right big toe at the bottom of it and stated that about a year ago she was seen Dr. Vu from the wound care center when she was treated with IV antibiotic for 6 weeks, patient stated that she hasn't seen him since June and she has been doing fine up until recently when she developed to have a significant scab falling off the callus of the right toe and 48 hours developed to have a significant tenderness and swelling to the right big toe along with the darkness at the base of the callus patient ended up coming to the ER at [facility] since she was given an appointment to see Dr. Vu and the wound healing Center on 04/09/2017, patient was found to have significant gas under the skin with periosteal reaction suggestive of early osteomyelitis she was started on IV antibiotic in the forms of vancomycin and Zosyn infectious disease consultation and vascular surgery consultation was obtained. Review of Systems Constitutional: Reports chronic pain, Denies anorexia, Denies chronic headaches , Denies lethargy, Denies malaise, Denies weakness, Denies weight gain, Denies weight loss Eyes: denies blurred vision, denies bulging eye, denies decreased vision Ears: deny: decreased hearing, ear discharge Ears, nose, mouth and throat: Denies dysphagia, Denies neck lump, Denies swelling in throat, Denies sore throat Breasts: absent: change in shape Cardiovascular: Reports dyspnea on exertion, Reports high blood pressure, Reports shortness of breath, Denies chest pain, Denies claudication, Denies edema, Denies phlebitis, Denies rapid heart beat, Denies syncope Respiratory: Denies congestion, Denies cough, Denies cough with sputum, Denies home oxygen, Denies sleep apnea, Denies snoring, Denies wheezing Gastrointestinal: Denies abdominal pain, Denies bloating, Denies BRBPR, Denies change in bowel habits, Denies early satiety, Denies excessive gas, Denies loss of appetite, Denies melena, Denies nausea, Denies vomiting Genitourinary: Denies dysuria, Denies urgency Menstruation: Reports postmenopausal Musculoskeletal: Denies myalgias Musculoskeletal: right: foot pain, foot swelling, absent: ankle pain, ankle stiffness, ankle swelling, elbow pain, elbow stiffness, elbow swelling, foot stiffness, hand pain, hand stiffness, hand swelling, hip pain, hip stiffness, hip swelling, knee pain, knee stiffness, knee swelling, shoulder pain, shoulder stiffness, shoulder swelling, wrist pain, wrist stiffness, wrist swelling Integumentary: Reports sores (patient has significant ulcer to the right big toe at the base of the callus along with significant osteomyelitis of the right big toe.), Denies pruritus, Denies rash Neurological: Denies numbness, Denies weakness Psychiatric: Denies anxiety, Denies depression Endocrine: Denies fatigue, Denies weight change Past Medical History Past Medical History: Coronary Artery Disease (CAD), Chest Pain / Angina, COPD, CVA/TIA, Diabetes Mellitus, Deep Vein Thrombosis (DVT), GERD/Reflux, Hyperlipidemia, Hypertension, Myocardial Infarction (DE), Osteoarthritis (OA), Pulmonary Embolus (PE) Additional Past Medical History / Comment(s): states "b/p and heart rate running low",CVA on 11-16-16-Increased fatigue,SOB with activity,Loss of appetitie,pain in stomach after eating.Mutiple DVT,mesentaric thrombosis x2,hx GENITAL WARTS, neuropathy,pad,chronic pain syndrome,ddd lumbar region w/ radiculopathy, fell jun 2015 tore rt rotator cuff, pancreatitis, uti, non alcoholic fatty liver, poly neuropathy. Last Myocardial Infarction Date:: 2010 History of Any Multi-Drug Resistant Organisms: None Reported Past Surgical History: Section, Heart Catheterization, Heart Catheterization With Stent, Orthopedic Surgery, Tonsillectomy, Tubal Ligation Additional Past Surgical History / Comment(s): 11 Stents in left leg, fistula left thigh, full mouth teeth extraction, TRAPEASE VENA CAVA FILTER, carpel tunnel, heart stents x4 rca and lad, tumor removal from uterus. Genital warts removed, INGRID. Past Anesthesia/Blood Transfusion Reactions: No Reported Reaction Date of Last Stent Placement:: May 2016 Past Psychological History: Depression Additional Psychological History / Comment(s): Depression r/t health issues. Smoking Status: Current some day smoker Past Alcohol Use History: None Reported Additional Past Alcohol Use History / Comment(s): STARTED SMOKING AT AGE 23. smoked 1/2-1 ppd, still smoking, level depends on what pt. is doing Past Drug Use History: None Reported - Past Family History Mother Family Medical History: Cancer, Congestive Heart Failure (CHF), Diabetes Mellitus, Myocardial Infarction (DE) Additional Family Medical History / Comment(s): Ovarian CA. Mother at age 69. Father Family Medical History: Coronary Artery Disease (CAD), Myocardial Infarction (DE ) Additional Family Medical History / Comment(s): Father at age 70. Sister(s) Family Medical History: Myocardial Infarction (DE) Additional Family Medical History / Comment(s): Patient has one sister with myocardial infarction at age 55. Son(s) Family Medical History: Deep Vein Thrombosis (DVT), Pulmonary Embolus Additional Family Medical History / Comment(s): Patient has 2 sons and one has history of DVT and pulmonary embolism. Patient does not have any daughters. Patient does not have any brothers. Medications and Allergies Home Medications Medication Instructions Recorded Confirmed Type Gabapentin 800 mg PO BID 12/14/13 03/31/17 History Nitroglycerin Sl Tabs [Nitrostat] 0.4 mg SUBLINGUAL Q5M PRN 12/14/13 03/31/17 History DULoxetine HCL [Cymbalta] 30 mg PO QAM 07/15/14 03/31/17 History Hydrocodone/Acetaminophen 1 tab PO Q8H PRN 05/02/15 03/31/17 History [Hydrocodon-Acetaminophn 10-325] Ergocalciferol [Vitamin D2 50,000 unit PO [id number] 08/26/15 03/31/17 History (DRISDOL)] Insulin Lispro [humaLOG Kwikpen] 14 - 18 unit SQ AC-TID 08/26/15 03/31/17 History metFORMIN HCL 1,000 mg PO BID 08/26/15 03/31/17 History Aspirin EC [Ecotrin Low Dose] 81 mg PO DAILY 12/23/15 03/31/17 History Warfarin [Coumadin] 7.5 mg PO SUMOWETHSA 12/23/15 03/31/17 History traMADol HCL [Ultram] 50 mg PO Q8H PRN 09/28/16 03/31/17 History Insulin Glargine,Hum.rec.anlog 70 unit SQ DAILY@1500 01/18/17 03/31/17 History [Lantus Solostar] Furosemide [Lasix] 20 mg PO Q48H 03/31/17 03/31/17 History Pantoprazole Sodium [Protonix] 40 mg PO DAILY 03/31/17 03/31/17 History Potassium Chloride [K-Tab ER] 10 meq PO BID 03/31/17 03/31/17 History Allergies Allergy/AdvReac Type Severity Reaction Status Date / Time No Known Allergies Allergy Verified 03/31/17 15:18 Physical Exam Vitals: Vital Signs Temp Pulse Pulse Pulse Resp BP BP 04/01/17 07:00 98.3 F 70 16 113/70 03/31/17 23:00 98.4 F 70 14 106/50 03/31/17 17:30 18 03/31/17 16:51 97.6 F 81 18 128/84 03/31/17 15:49 79 18 127/65 03/31/17 14:44 98.6 F 83 18 148/72 Pulse Ox 04/01/17 07:00 94 L 03/31/17 23:00 98 03/31/17 17:30 03/31/17 16:51 96 03/31/17 15:49 94 L 03/31/17 14:44 98 Intake and Output 03/31/17 04/01/17 04/01/17 22:59 06:59 14:59 Other: Voiding Method Toilet Toilet # Voids 2 2 2 Weight 89.358 kg 89.358 kg Patient Weight 04/02/17 06:59 Weight 89.358 kg - Constitutional General appearance: average body habitus, mild distress - EENT Eyes: disc margins sharp, EOMI, PERRLA, no ptosis, no scleral icterus, normal appearance ENT: hearing grossly normal, NA/AT, normal oropharynx, no thrush, no tonsillar exudates, no tonsillar swelling Ears: bilateral: normal - Neck Neck: no lymphadenopathy, normal ROM, no rigidity, no stridor, no thyromegaly Carotids: bilateral: upstroke normal Thyroid: bilateral: normal size - Respiratory Respiratory: bilateral: diminished, negative: dullness, rales, rhonchi, wheezing , prolonged expiration - Cardiovascular Rhythm: regular Heart sounds: normal: S1, S2 Abnormal Heart Sounds: systolic murmur, no rub, no S3 Gallop, no S4 Gallop, no click - Gastrointestinal General gastrointestinal: normal bowel sounds, soft, no splenomegaly, no tenderness, no umbilical hernia, no ventral hernia - Integumentary Integumentary: ulcer (right big toe ulcer with significant soft tissue infection and possible osteomyelitis) - Neurologic Neurologic: CNII-XII intact - Musculoskeletal Musculoskeletal: strength equal bilaterally - Psychiatric Psychiatric: A&O x's 3, appropriate affect, intact judgment & insight Results CBC & Chem 7: 04/01/17 08:23 04/01/17 08:23 Labs: Abnormal Lab Results - Last 24 Hours (Table) 03/31/17 03/31/17 03/31/17 Range/Units 15:30 15:36 15:36 WBC 12.8 H (3.8-10.6) k/uL Neutrophils # 9.4 H (1.3-7.7) k/uL ESR (0-20) mm/hr PT 31.8 H (9.0-12.0) sec INR 3.3 H (<1.2) Glucose 225 H (74-99) mg/dL POC Glucose (mg/dL) (75-99) mg/dL Hemoglobin A1c (4.2-6.1) % Total Protein (6.3-8.2) g/dL Albumin (3.5-5.0) g/dL 03/31/17 03/31/17 03/31/17 Range/Units 15:36 17:20 20:41 WBC (3.8-10.6) k/uL Neutrophils # (1.3-7.7) k/uL ESR (0-20) mm/hr PT (9.0-12.0) sec INR (<1.2) Glucose (74-99) mg/dL POC Glucose (mg/dL) 169 H 154 H (75-99) mg/dL Hemoglobin A1c 10.3 H (4.2-6.1) % Total Protein (6.3-8.2) g/dL Albumin (3.5-5.0) g/dL 04/01/17 04/01/17 04/01/17 Range/Units 07:05 08:23 08:23 WBC (3.8-10.6) k/uL Neutrophils # (1.3-7.7) k/uL ESR 40 H (0-20) mm/hr PT 30.4 H (9.0-12.0) sec INR 3.1 H (<1.2) Glucose (74-99) mg/dL POC Glucose (mg/dL) 134 H (75-99) mg/dL Hemoglobin A1c (4.2-6.1) % Total Protein (6.3-8.2) g/dL Albumin (3.5-5.0) g/dL 04/01/17 04/01/17 Range/Units 08:23 11:40 WBC (3.8-10.6) k/uL Neutrophils # (1.3-7.7) k/uL ESR (0-20) mm/hr PT (9.0-12.0) sec INR (<1.2) Glucose 154 H (74-99) mg/dL POC Glucose (mg/dL) 116 H (75-99) mg/dL Hemoglobin A1c (4.2-6.1) % Total Protein 5.7 L (6.3-8.2) g/dL Albumin 3.2 L (3.5-5.0) g/dL Microbiology - Last 24 Hours (Table) 03/31/17 15:36 Gram Stain - Preliminary Foot - Right Wound Culture - Preliminary Thrombosis Risk Factor Assmnt - DVT/VTE Prophylaxis DVT/VTE Prophylaxis: Pharmacologic Prophylaxis ordered - Choose All That Apply Any of the Below Risk Factors Present?: Yes Each Factor Represents 1 point: Age 41-60 years, Obesity (BMI >25), Swollen legs (current) Each Risk Factor Represents 3 Points: History of DVT/PE Other congenital or acquired thrombophilia - If yes, enter type in comment: No Thrombosis Risk Factor Assessment Total Risk Factor Score: 6 Thrombosis Risk Factor Assessment Level: High Risk Assessment and Plan Plan: Assessment and plan: 1. Right great toe ulcer with significant cellulitis and early osteomyelitis. Vascular surgery consult infectious disease consult IV anabiotic vancomycin as well as Zosyn, blood culture, wound culture, aerobic and anaerobic, keep the leg elevated, apply Santyl to the bottom of the foot ever with a BD and wrap with Kerlix. Day. 2. Neurocardiogenic syncope. Patient was taken off lisinopril as well as metoprolol, monitor the patient very closely for syncopal episode. 3. Diabetes mellitus type 2. Continue patient on Lantus 70 units at bedtime along with a sliding scale insulin, continue became before each meal and at bedtime. 4. Coronary artery disease status post multiple PCI with ischemic cardiomyopathy . Patient seen cardiology on regular basis. Continue patient on Lipitor 20 mg orally once every day as well as nitroglycerin as needed along with aspirin 81 mg orally once every day. 5. Hypertension and hypertensive cardiovascular disease. Patient was recently taken off her beta nisa as well as lisinopril because of the orthostatic hypotension. 6. chronic DVT and PEs. Continue patient on Coumadin keep her INR. 2-3. 7. Chronic tobacco use and dependence with COPD. Stable at this point in time. Patient will be offered nicotine patch. She was advised about smoking cessation and increased risk of CAD, CVA, and malignancy along with foot amputation. 8. Hyperlipidemia. Continue patient on Lipitor 20 mg orally once every day. 9. Gastritis. Continue patient on Protonix 40 mg orally once every day. 10. Severe PAD under the care of Dr. Villarreal and Dr. Bill, patient underwent PTBA in the past by Dr. Villarreal at [facility]. 11. Diabetic polyneuropathy. Continue gabapentin 800 mg orally twice every day. 12. DVT prophylaxis. Continue Coumadin keep an INR between 2-3. 13. GI prophylaxis. Continue Protonix 40 mg orally once every day. 14. Admitted to inpatient. Estimate length of stay 2 midnights.
[2017-04-01] MEDS: PIPERACILLIN-TAZOBACTAM 3.375 GM in DEXTROSE/WATER 1 50ML.BAG IVPB SCH (15:52)
--- NOTE | 2017-04-01 16:08 | P.CONS ---
History of Present Illness - Reason for Consult Consult date: 04/01/17 Right toe infection - History of Present Illness This is a 56-year-old female patient well-known to ID service as she has been a patient in the wound healing center for diabetic foot ulceration on the right great toe and underwent treatment with IV antibiotics. She was discharged from the wound healing Center in June 2016. Patient states she developed this second callus to the right great toe and this fell off 1 week ago but she has had increasing redness swelling and pain to the area. She tried to set up an appointment with the wound healing center which is made for April 09. Yesterday she was getting out of the shower and area looked much worse with increased swelling going up into her foot. She also developed a blackened area in the medial and around the plantar and dorsal surface of the toe with a foul odor. She does have an appointment on April [address] Villarreal in [place] for an angiogram and he has performed her stents in the past. Dr. Noel is on consult as well. Review of Systems All systems: negative Constitutional: Denies chills, Denies fever Eyes: denies blurred vision, denies pain Ears, nose, mouth and throat: Denies headache, Denies sore throat Cardiovascular: Denies chest pain, Denies shortness of breath Respiratory: Denies cough Gastrointestinal: Denies abdominal pain, Denies diarrhea, Denies nausea, Denies vomiting Genitourinary: Denies dysuria, Denies hematuria Musculoskeletal: Denies myalgias Integumentary: Reports color changes, Reports darkening of skin, Reports wounds , Denies pruritus, Denies rash Neurological: Denies numbness, Denies weakness Psychiatric: Denies anxiety, Denies depression Endocrine: Denies fatigue, Denies weight change Past Medical History Past Medical History: Coronary Artery Disease (CAD), Chest Pain / Angina, COPD, CVA/TIA, Diabetes Mellitus, Deep Vein Thrombosis (DVT), GERD/Reflux, Hyperlipidemia, Hypertension, Myocardial Infarction (MS), Osteoarthritis (OA), Pulmonary Embolus (PE) Additional Past Medical History / Comment(s): states "b/p and heart rate running low",CVA on 11-16-16-Increased fatigue,SOB with activity,Loss of appetitie,pain in stomach after eating.Mutiple DVT,mesentaric thrombosis x2,hx GENITAL WARTS, neuropathy,pad,chronic pain syndrome,ddd lumbar region w/ radiculopathy, fell jun 2015 tore rt rotator cuff, pancreatitis, uti, non alcoholic fatty liver, poly neuropathy. Last Myocardial Infarction Date:: 2010 History of Any Multi-Drug Resistant Organisms: None Reported Past Surgical History: Section, Heart Catheterization, Heart Catheterization With Stent, Orthopedic Surgery, Tonsillectomy, Tubal Ligation Additional Past Surgical History / Comment(s): 11 Stents in left leg, fistula left thigh, full mouth teeth extraction, TRAPEASE VENA CAVA FILTER, carpel tunnel, heart stents x4 rca and lad, tumor removal from uterus. Genital warts removed, INGRID. Past Anesthesia/Blood Transfusion Reactions: No Reported Reaction Date of Last Stent Placement:: May 2016 Past Psychological History: Depression Additional Psychological History / Comment(s): Depression r/t health issues. Smoking Status: Current some day smoker Past Alcohol Use History: None Reported Additional Past Alcohol Use History / Comment(s): STARTED SMOKING AT AGE 23. smoked 1/2-1 ppd, still smoking, level depends on what pt. is doing Past Drug Use History: None Reported - Past Family History Mother Family Medical History: Cancer, Congestive Heart Failure (CHF), Diabetes Mellitus, Myocardial Infarction (MS) Additional Family Medical History / Comment(s): Ovarian CA. Mother at age 69. Father Family Medical History: Coronary Artery Disease (CAD), Myocardial Infarction (MS ) Additional Family Medical History / Comment(s): Father at age 70. Sister(s) Family Medical History: Myocardial Infarction (MS) Additional Family Medical History / Comment(s): Patient has one sister with myocardial infarction at age 55. Son(s) Family Medical History: Deep Vein Thrombosis (DVT), Pulmonary Embolus Additional Family Medical History / Comment(s): Patient has 2 sons and one has history of DVT and pulmonary embolism. Patient does not have any daughters. Patient does not have any brothers. Medications and Allergies Home Medications Medication Instructions Recorded Confirmed Type Gabapentin 800 mg PO BID 12/14/13 03/31/17 History Nitroglycerin Sl Tabs [Nitrostat] 0.4 mg SUBLINGUAL Q5M PRN 12/14/13 03/31/17 History DULoxetine HCL [Cymbalta] 30 mg PO QAM 07/15/14 03/31/17 History Hydrocodone/Acetaminophen 1 tab PO Q8H PRN 05/02/15 03/31/17 History [Hydrocodon-Acetaminophn 10-325] Ergocalciferol [Vitamin D2 50,000 unit PO [id number] 08/26/15 03/31/17 History (DRISDOL)] Insulin Lispro [humaLOG Kwikpen] 14 - 18 unit SQ AC-TID 08/26/15 03/31/17 History metFORMIN HCL 1,000 mg PO BID 08/26/15 03/31/17 History Aspirin EC [Ecotrin Low Dose] 81 mg PO DAILY 12/23/15 03/31/17 History Warfarin [Coumadin] 7.5 mg PO SUMOWETHSA 12/23/15 03/31/17 History traMADol HCL [Ultram] 50 mg PO Q8H PRN 09/28/16 03/31/17 History Insulin Glargine,Hum.rec.anlog 70 unit SQ DAILY@1500 01/18/17 03/31/17 History [Lantus Solostar] Furosemide [Lasix] 20 mg PO Q48H 03/31/17 03/31/17 History Pantoprazole Sodium [Protonix] 40 mg PO DAILY 03/31/17 03/31/17 History Potassium Chloride [K-Tab ER] 10 meq PO BID 03/31/17 03/31/17 History Allergies Allergy/AdvReac Type Severity Reaction Status Date / Time No Known Allergies Allergy Verified 03/31/17 15:18 Physical Exam Vitals: Vital Signs Temp Pulse Pulse Pulse Resp BP BP 04/01/17 15:00 98.7 F 83 16 107/65 04/01/17 07:00 98.3 F 70 16 113/70 03/31/17 23:00 98.4 F 70 14 106/50 03/31/17 17:30 18 03/31/17 16:51 97.6 F 81 18 128/84 Pulse Ox 04/01/17 15:00 97 04/01/17 07:00 94 L 03/31/17 23:00 98 03/31/17 17:30 03/31/17 16:51 96 Intake and Output 04/01/17 04/01/17 04/01/17 06:59 14:59 22:59 Intake Total 1800 Balance 1800 Intake: Oral 1800 Other: Voiding Method Toilet # Voids 2 3 Weight 89.358 kg Patient Weight 04/02/17 06:59 Weight 89.358 kg Gen: This is a 56-year-old female. She is sitting up in bed and appears to be in no acute distress. Patient did become tearful during evaluation with concern for losing her toe. HEENT: Head is atraumatic, normocephalic. Pupils equal, round. Sclerae is anicteric. Oral mucous membranes are moist. Dentures are in place. No thrush or lesions noted. NECK: Supple. No JVD. No lymphadenopathy. No thyromegaly. LUNGS: Clear to auscultation. No wheezes or rhonchi. No intercostal retractions. HEART: Regular rate and rhythm. No murmur. ABDOMEN: Soft. Bowel sounds are present. No masses. Epigastric, left upper and left lower quadrant tenderness. EXTREMITIES: Trace pedal edema left with brawny skin changes. Diabetic ulcer to the right great toe. Scant amount of drainage drainage. Black colored noted around the base of the toe. NEUROLOGICAL: Patient is awake, alert and oriented x3. Cranial nerves 2 through 12 are grossly intact. Results Results: Laboratory Results WBC 8.9 k/uL (3.8-10.6) 04/01/17 08:23 RBC 3.91 m/uL (3.80-5.40) 04/01/17 08:23 Hgb 11.7 gm/dL (11.4-16.0) 04/01/17 08:23 Hct 34.6 % (34.0-46.0) 04/01/17 08:23 MCV 88.4 fL (80.0-100.0) 04/01/17 08:23 MCH 29.8 pg (25.0-35.0) 04/01/17 08:23 MCHC 33.7 g/dL (31.0-37.0) 04/01/17 08:23 RDW 15.1 % (11.5-15.5) 04/01/17 08:23 Plt Count 229 k/uL (150-450) 04/01/17 08:23 Neutrophils % 61 % 04/01/17 08:23 Lymphocytes % 30 % 04/01/17 08:23 Monocytes % 5 % 04/01/17 08:23 Eosinophils % 3 % 04/01/17 08:23 Basophils % 0 % 04/01/17 08:23 Neutrophils # 5.4 k/uL (1.3-7.7) 04/01/17 08:23 Lymphocytes # 2.7 k/uL (1.0-4.8) 04/01/17 08:23 Monocytes # 0.4 k/uL (0-1.0) 04/01/17 08:23 Eosinophils # 0.3 k/uL (0-0.7) 04/01/17 08:23 Basophils # 0.0 k/uL (0-0.2) 04/01/17 08:23 ESR 40 mm/hr (0-20) H 04/01/17 08:23 PT 30.4 sec (9.0-12.0) H 04/01/17 08:23 INR 3.1 (<1.2) H 04/01/17 08:23 Sodium 138 mmol/L (137-145) 04/01/17 08:23 Potassium 4.4 mmol/L (3.5-5.1) 04/01/17 08:23 Chloride 103 mmol/L (98-107) 04/01/17 08:23 Carbon Dioxide 25 mmol/L (22-30) 04/01/17 08:23 Anion Gap 10 mmol/L 04/01/17 08:23 BUN 8 mg/dL (7-17) 04/01/17 08:23 Creatinine 0.82 mg/dL (0.52-1.04) 04/01/17 08:23 Est GFR (MDRD) Af Amer >60 (>60 ml/min/1.73 sqM) 04/01/17 08:23 Est GFR (MDRD) Non-Af >60 (>60 ml/min/1.73 sqM) 04/01/17 08:23 Glucose 154 mg/dL (74-99) H 04/01/17 08:23 POC Glucose (mg/dL) 116 mg/dL (75-99) H 04/01/17 11:40 POC Glu Commercial Representative ID Mariola Berger 04/01/17 11:[address] Glu mg/dL 249 mg/dL 03/31/17 15:36 Hemoglobin A1c 10.3 % (4.2-6.1) H 03/31/17 15:36 Calcium 9.3 mg/dL (8.4-10.2) 04/01/17 08:23 Total Bilirubin 0.4 mg/dL (0.2-1.3) 04/01/17 08:23 AST 27 U/L (14-36) 04/01/17 08:23 ALT 34 U/L (9-52) 04/01/17 08:23 Alkaline Phosphatase 59 U/L (38-126) 04/01/17 08:23 Total Protein 5.7 g/dL (6.3-8.2) L 04/01/17 08:23 Albumin 3.2 g/dL (3.5-5.0) L 04/01/17 08:23 CBC & Chem 7: 04/01/17 08:23 04/01/17 08:23 Labs: Abnormal Lab Results - Last 24 Hours (Table) 03/31/17 03/31/17 03/31/17 Range/Units 15:30 15:36 15:36 ESR (0-20) mm/hr PT 31.8 H (9.0-12.0) sec INR 3.3 H (<1.2) Glucose 225 H (74-99) mg/dL POC Glucose (mg/dL) (75-99) mg/dL Hemoglobin A1c 10.3 H (4.2-6.1) % Total Protein (6.3-8.2) g/dL Albumin (3.5-5.0) g/dL 03/31/17 03/31/17 04/01/17 Range/Units 17:20 20:41 07:05 ESR (0-20) mm/hr PT (9.0-12.0) sec INR (<1.2) Glucose (74-99) mg/dL POC Glucose (mg/dL) 169 H 154 H 134 H (75-99) mg/dL Hemoglobin A1c (4.2-6.1) % Total Protein (6.3-8.2) g/dL Albumin (3.5-5.0) g/dL 04/01/17 04/01/17 04/01/17 Range/Units 08:23 08:23 08:23 ESR 40 H (0-20) mm/hr PT 30.4 H (9.0-12.0) sec INR 3.1 H (<1.2) Glucose 154 H (74-99) mg/dL POC Glucose (mg/dL) (75-99) mg/dL Hemoglobin A1c (4.2-6.1) % Total Protein 5.7 L (6.3-8.2) g/dL Albumin 3.2 L (3.5-5.0) g/dL 04/01/17 Range/Units 11:40 ESR (0-20) mm/hr PT (9.0-12.0) sec INR (<1.2) Glucose (74-99) mg/dL POC Glucose (mg/dL) 116 H (75-99) mg/dL Hemoglobin A1c (4.2-6.1) % Total Protein (6.3-8.2) g/dL Albumin (3.5-5.0) g/dL Microbiology - Last 24 Hours (Table) 03/31/17 15:36 Gram Stain - Preliminary Foot - Right Wound Culture - Preliminary Assessment and Plan Plan: This is a 56-year-old female who presented to the hospital with a diabetic and peripheral vascular ulcer to the right great toe. She is currently on IV antibiotics in the form of vancomycin and Zosyn. She is followed by Dr. Noel from vascular surgery. Wound culture is in progress. Blood cultures status received. Further recommendations as patient progresses. The above dictated assessment and findings were discussed with Dr. Vu. The impression and plan of care have been directed as dictated. Kerri Kevin nurse practitioner acting as scribe for Dr. Vu.
[2017-04-01 16:58] LABS: Glucose,Whole Blood 109 mg/dL (75-99)
[2017-04-01] MEDS: WARFARIN 7.5 MG TAB PO SCH (18:00)
--- NOTE | 2017-04-01 20:43 | P.CON ---
Consult Note - . Consult date: 04/01/17 Assessment/Plan:: This is a 56-year-old female patient well-known to ID service as she has been a patient in the wound healing center for diabetic foot ulceration on the right great toe and underwent treatment with IV antibiotics. She was discharged from the wound healing Center in June 2016. Patient states she developed this second callus to the right great toe and this fell off 1 week ago but she has had increasing redness swelling and pain to the area. She tried to set up an appointment with the wound healing center which is made for April 09. Yesterday she was getting out of the shower and area looked much worse with increased swelling going up into her foot. She also developed a blackened area in the medial and around the plantar and dorsal surface of the toe with a foul odor. She does have an appointment on April [address] Villarreal in [place] for an angiogram and he has performed her stents in the past. She has severe venous disease to the left lower extremity and has had multiple interventions if [facility]. She has been seen locally also by Dr. Noel. Please see the consult note is dictated by nurse practitioner Kerri Tavarezlaura. Exam reveals evidence of the significant infection to the plantar surface of the right great toe with some foul odor. The patient has been seen by vascular surgery and there are plans for debridement of the toe, the patient does not want amputation at this point in time. The plan will be for a debridement, antibiotic therapy and wound care and if needed amputation will then be considered. She has tearful and depressed about how she feels overall. She has not felt well in a long time and the possibility of amputation has are extremely upset. With her history of staphylococcal infection in the past vancomycin is being utilized him with a diabetic foot infection Zosyn is being utilizable cultures are in process. Local wound care was started with Santyl as per the vascular surgeon. At this time elevation at rest. Optimizing of her blood sugars as required for improvement of her status. She has been working to try to improve her blood sugars as of late but still has an A1c of 10.3 which markedly increases her risk for infections. She is aware of her need to improve her blood sugars is been trying to work with that as of late. However glucose control for the last few days may not be enough to salvage the toe. Will need ongoing aggressive outpatient glucose control, and will need network architect manager evaluation for shoes and inserts. I agree with evaluation, assessment and plan as dictated by nurse practitioner Mrs. Kerri Kevin.
[2017-04-01 21:07] LABS: Glucose,Whole Blood 60 mg/dL (75-99)
[2017-04-01 21:36] LABS: Glucose,Whole Blood 84 mg/dL (75-99)
[2017-04-02] MEDS: HYDROmorphone 1 MG/ML 1 ML SYRINGE IV PRN ×3 (00:57→16:00)
[2017-04-02] MEDS: VANCOMYCIN 1,500 MG in SODIUM CHLORIDE 0.9% 250 ML IVPB SCH ×2 (06:33→20:48)
[2017-04-02 07:35] LABS: Glucose,Whole Blood 112 mg/dL (75-99)
[2017-04-02] MEDS: INSULIN LISPRO (humaLOG) 300 UNIT/3 ML VIAL SQ SCH ×7 (08:26→21:06)
[2017-04-02 08:48] LABS: INR 1.9 (<1.2); Prothrombin Time 18.6 sec (9.0-12.0)
[2017-04-02 08:50] LABS: Anion Gap 8 mmol/L; Blood Urea Nitrogen 10 mg/dL (7-17); Calcium 9.6 mg/dL (8.4-10.2); Carbon Dioxide 27 mmol/L (22-30); Chloride 105 mmol/L (98-107); Glucose 116 mg/dL (74-99); Non-African American GFR(MDRD) >60 (>60 ml/min/1.73 sqM); Potassium 4.9 mmol/L (3.5-5.1); Sodium 140 mmol/L (137-145)
[2017-04-02] MEDS: PANTOPRAZOLE 40 MG TABLET PO SCH (09:01)
[2017-04-02] MEDS: SODIUM CHLORIDE 0.9% 1,000 ML IV SCH ×2 (09:01→09:02)
[2017-04-02] MEDS: ASPIRIN 81 MG CHEW PO SCH (09:02)
[2017-04-02] MEDS: PIPERACILLIN-TAZOBACTAM 3.375 GM in DEXTROSE/WATER 1 50ML.BAG IVPB SCH ×3 (09:02→16:38)
[2017-04-02] MEDS: DULoxetine HCL 30 MG CAPSULE.DR PO SCH (09:03)
[2017-04-02] MEDS: GABAPENTIN 400 MG CAP PO SCH ×2 (09:03→20:37)
[2017-04-02] MEDS: COLLAGENASE 250 UNIT/GM OINTMENT 30 GM TUBE TOPICAL SCH (09:03)
[2017-04-02] MEDS: metFORMIN 500 MG TAB PO SCH ×2 (09:04→23:51)
[2017-04-02] MEDS: POTASSIUM CHLORIDE ER 10 MEQ TAB.ER.PRT PO SCH ×2 (09:04→20:37)
[2017-04-02] MEDS: NICOTINE 14MG/24HR PATCH TRANSDERM SCH (09:10)
--- NOTE | 2017-04-02 11:26 | P.PN ---
Subjective This is a 56-year-old female patient of Dr. Balderas with history of CAD , with cardiac stent in May 2016,24/05 ICA, followed by 2 other stents 1 in the LAD in 2011 the other one in the obtuse marginal branch in 2011 as well hypertension and COPD diabetes mellitus type 2, previous multiple DVT and PE requiring chronic anticoagulation followed by Dr. Bill, patient was recently hospitalized at [facility] in 02/28/2017 after she developed to have a significant lightheadedness while she was walking in the kitchen suddenly passed out and she ended up having neuro workup that was negative including ultrasound of the carotid echocardiogram and EEG along with a computed tomography scan of the brain that showed benign meningioma probably, patient stated that she had another episode of syncope about November 2016 at that time, patient was feeling better after she was seen and cardiology and she was taken off her metoprolol and lisinopril and the patient developed to have a significant callus to the right big toe at the bottom of it and stated that about a year ago she was seen Dr. Vu from the wound care center when she was treated with IV antibiotic for 6 weeks, patient stated that she hasn't seen him since June and she has been doing fine up until recently when she developed to have a significant scab falling off the callus of the right toe and 48 hours developed to have a significant tenderness and swelling to the right big toe along with the darkness at the base of the callus patient ended up coming to the ER at [facility] since she was given an appointment to see Dr. Vu and the wound healing Center on 04/09/2017, patient was found to have significant gas under the skin with periosteal reaction suggestive of early osteomyelitis she was started on IV antibiotic in the forms of vancomycin and Zosyn infectious disease consultation and vascular surgery consultation was obtained. 04/02: Patient is followed by Dr. Noel and Dr. Vu. Her hemoglobin A1c is 10.3. Here, patient has had a low reading of 60 but otherwise blood sugars are running 84-116. Dr. Noel is planning for debridement today. INR is 1.9. She remains off Coumadin. She is on IV Zosyn and vancomycin. Blood culture showing no growth at 24 hours. Wound culture is in progress. Objective - Vital Signs Vital signs: Vital Signs Temp 98.8 F 04/02/17 07:00 Pulse 71 08/29/17 07:00 Resp 16 04/02/17 07:00 BP 99/51 04/02/17 07:00 Pulse Ox 93 L 04/02/17 07:00 Intake & Output 04/01/17 04/02/17 04/02/17 18:59 06:59 18:59 Intake Total 2400 Balance 2400 Weight 89.358 kg Intake: Oral 2400 Other: # Voids 1 2 - Exam General appearance: average body habitus, mild distress - EENT Eyes: disc margins sharp, EOMI, PERRLA, no ptosis, no scleral icterus, normal appearance ENT: hearing grossly normal, NA/AT, normal oropharynx, no thrush, no tonsillar exudates, no tonsillar swelling Ears: bilateral: normal - Neck Neck: no lymphadenopathy, normal ROM, no rigidity, no stridor, no thyromegaly Carotids: bilateral: upstroke normal Thyroid: bilateral: normal size - Respiratory Respiratory: bilateral: diminished, negative: dullness, rales, rhonchi, wheezing , prolonged expiration - Cardiovascular Rhythm: regular Heart sounds: normal: S1, S2 Abnormal Heart Sounds: systolic murmur, no rub, no S3 Gallop, no S4 Gallop, no click - Gastrointestinal General gastrointestinal: normal bowel sounds, soft, no splenomegaly, no tenderness, no umbilical hernia, no ventral hernia - Integumentary Integumentary: ulcer (right big toe ulcer with significant soft tissue infection and possible osteomyelitis) - Neurologic Neurologic: CNII-XII intact - Musculoskeletal Musculoskeletal: strength equal bilaterally - Psychiatric Psychiatric: A&O x's 3, appropriate affect, intact judgment & insight - Labs CBC & Chem 7: 04/01/17 08:23 04/02/17 08:12 Labs: Abnormal Lab Results - Last 24 Hours (Table) 04/01/17 04/01/17 04/01/17 Range/Units 11:40 16:54 21:06 PT (9.0-12.0) sec INR (<1.2) Glucose (74-99) mg/dL POC Glucose (mg/dL) 116 H 109 H 60 L (75-99) mg/dL 04/02/17 04/02/17 04/02/17 Range/Units 07:31 08:12 08:12 PT 18.6 H (9.0-12.0) sec INR 1.9 H (<1.2) Glucose 116 H (74-99) mg/dL POC Glucose (mg/dL) 112 H (75-99) mg/dL Microbiology - Last 24 Hours (Table) 03/31/17 15:36 Blood Culture - Preliminary Blood No Growth after 24 hours Assessment and Plan Plan: 1. Right great toe diabetic and peripheral artery disease ulcer with significant cellulitis and early osteomyelitis. Vascular surgery consult infectious disease consult IV vancomycin as well as Zosyn, blood culture, wound culture, aerobic and anaerobic, keep the leg elevated, apply Santyl to the bottom of the foot and wrap with Kerlix. Dr. Noel is planning for debridement and patient may require amputation. 2. Neurocardiogenic syncope. Patient was taken off lisinopril as well as metoprolol, monitor the patient very closely for syncopal episode. 3. Diabetes mellitus type 2. Continue patient on Lantus 70 units at bedtime along with a sliding scale insulin, continue became before each meal and at bedtime. 4. Coronary artery disease status post multiple PCI with ischemic cardiomyopathy . Patient seen cardiology on regular basis. Continue patient on Lipitor 20 mg orally once every day as well as nitroglycerin as needed along with aspirin 81 mg orally once every day. 5. Hypertension and hypertensive cardiovascular disease. Patient was recently taken off her beta nisa as well as lisinopril because of the orthostatic hypotension. 6. chronic DVT and PEs. Continue patient on Coumadin keep her INR. 2-3. 7. Chronic tobacco use and dependence with COPD. Stable at this point in time. Patient will be offered nicotine patch. She was advised about smoking cessation and increased risk of CAD, CVA, and malignancy along with foot amputation. 8. Hyperlipidemia. Continue patient on Lipitor 20 mg orally once every day. 9. Gastritis. Continue patient on Protonix 40 mg orally once every day. 10. Severe PAD under the care of Dr. Villarreal and Dr. Bill, patient underwent PTBA in the past by Dr. Villarreal at the [facility]. 11. Diabetic polyneuropathy. Continue gabapentin 800 mg orally twice every day. 12. DVT prophylaxis. Continue Coumadin keep an INR between 2-3. 13. GI prophylaxis. Continue Protonix 40 mg orally once every day. Discharge plan: Return home Impression and plan of care have been directed as dictated by the signing physician. Kerri Kevin nurse practitioner acting as scribe for signing physician.
[2017-04-02 12:01] LABS: Glucose,Whole Blood 150 mg/dL (75-99)
[2017-04-02] MEDS ORDERED: LIDOCAINE 1% INJ 10MG/ML (20 ML MDV) SQ ONE (12:48)
[2017-04-02 15:42] LABS: Glucose,Whole Blood 139 mg/dL (75-99)
[2017-04-02] MEDS: HYDROcodone/APAP 10-325MG 1 EACH TAB PO PRN ×2 (16:00→23:49)
[2017-04-02] MEDS: INSULIN GLARGINE 100 UNIT/ML 10 ML VIAL SQ SCH (16:35)
[2017-04-02] MEDS ORDERED: VANCOMYCIN TROUGH DUE 1 EACH MISC MISCELLANE ONE (17:00)
[2017-04-02 17:38] LABS: Glucose,Whole Blood 138 mg/dL (75-99)
[2017-04-02] MEDS ORDERED: WARFARIN 2.5 MG TAB PO SCH (18:00)
[2017-04-02 20:56] LABS: Glucose,Whole Blood 71 mg/dL (75-99)
[2017-04-02 21:37] LABS: Glucose,Whole Blood 83 mg/dL (75-99)
--- NOTE | 2017-04-02 21:53 | P.PN ---
Subjective Principal diagnosis: Diabetic foot infection This is a 56-year-old female patient well-known to ID service as she has been a patient in the wound healing center for diabetic foot ulceration on the right great toe and underwent treatment with IV antibiotics. She was discharged from the wound healing Center in June 2016. Patient states she developed this second callus to the right great toe and this fell off 1 week ago but she has had increasing redness swelling and pain to the area. She tried to set up an appointment with the wound healing center which is made for April 09. Yesterday she was getting out of the shower and area looked much worse with increased swelling going up into her foot. She also developed a blackened area in the medial and around the plantar and dorsal surface of the toe with a foul odor. Antibiotic therapy was initiated. She's been seen by Dr. Noel from vascular surgery. A bedside debridement has occurred today. She is feeling somewhat better. But does have her chronic malaise and fatigue. Objective - Vital Signs Vital signs: Vital Signs Temp 98.1 F 04/02/17 15:54 Pulse 67 04/02/17 15:54 Resp 16 04/02/17 18:54 BP 99/54 04/02/17 15:54 Pulse Ox 93 L 04/02/17 07:00 Intake & Output 04/02/17 04/02/17 04/03/17 06:59 18:59 06:59 Other: Voiding Method Toilet # Voids 2 4 - Exam Gen: This is a 56-year-old female. Less anxious today. Did well with the bedside debridement HEENT: Head is atraumatic, normocephalic. Pupils equal, round. Sclerae is anicteric. Oral mucous membranes are moist. Dentures are in place. No thrush or lesions noted. NECK: Supple. No JVD. No lymphadenopathy. No thyromegaly. LUNGS: Clear to auscultation. No wheezes or rhonchi. No intercostal retractions. HEART: Regular rate and rhythm. No murmur. ABDOMEN: Soft. Bowel sounds are present. No masses. Epigastric, left upper and left lower quadrant tenderness. EXTREMITIES: Trace pedal edema left with brawny skin changes. Diabetic ulcer to the right great toe. Is now status post debridement. Some granulation tissue and be seen at the base. NEUROLOGICAL: Patient is awake, alert and oriented x3. - Labs CBC & Chem 7: 04/01/17 08:23 04/02/17 08:12 Labs: Abnormal Lab Results - Last 24 Hours (Table) 04/02/17 04/02/17 04/02/17 Range/Units 07:31 08:12 08:12 PT 18.6 H (9.0-12.0) sec INR 1.9 H (<1.2) Glucose 116 H (74-99) mg/dL POC Glucose (mg/dL) 112 H (75-99) mg/dL 04/02/17 04/02/17 04/02/17 Range/Units 11:52 15:41 16:58 PT (9.0-12.0) sec INR (<1.2) Glucose (74-99) mg/dL POC Glucose (mg/dL) 150 H 139 H 138 H (75-99) mg/dL 04/02/17 Range/Units 20:51 PT (9.0-12.0) sec INR (<1.2) Glucose (74-99) mg/dL POC Glucose (mg/dL) 71 L (75-99) mg/dL Microbiology - Last 24 Hours (Table) 03/31/17 15:36 Blood Culture - Preliminary Blood No Growth after 48 hours 03/31/17 15:36 Gram Stain - Final Foot - Right Wound Culture - Final Laboratory Results WBC 8.9 k/uL (3.8-10.6) 04/01/17 08:23 RBC 3.91 m/uL (3.80-5.40) 04/01/17 08:23 Hgb 11.7 gm/dL (11.4-16.0) 04/01/17 08:23 Hct 34.6 % (34.0-46.0) 04/01/17 08:23 MCV 88.4 fL (80.0-100.0) 04/01/17 08:23 MCH 29.8 pg (25.0-35.0) 04/01/17 08:23 MCHC 33.7 g/dL (31.0-37.0) 04/01/17 08:23 RDW 15.1 % (11.5-15.5) 04/01/17 08:23 Plt Count 229 k/uL (150-450) 04/01/17 08:23 Neutrophils % 61 % 04/01/17 08:23 Lymphocytes % 30 % 04/01/17 08:23 Monocytes % 5 % 04/01/17 08:23 Eosinophils % 3 % 04/01/17 08:23 Basophils % 0 % 04/01/17 08:23 Neutrophils # 5.4 k/uL (1.3-7.7) 04/01/17 08:23 Lymphocytes # 2.7 k/uL (1.0-4.8) 04/01/17 08:23 Monocytes # 0.4 k/uL (0-1.0) 04/01/17 08:23 Eosinophils # 0.3 k/uL (0-0.7) 04/01/17 08:23 Basophils # 0.0 k/uL (0-0.2) 04/01/17 08:23 ESR 40 mm/hr (0-20) H 04/01/17 08:23 PT 18.6 sec (9.0-12.0) H 04/02/17 08:12 INR 1.9 (<1.2) H 04/02/17 08:12 Sodium 140 mmol/L (137-145) 04/02/17 08:12 Potassium 4.9 mmol/L (3.5-5.1) 04/02/17 08:12 Chloride 105 mmol/L (98-107) 04/02/17 08:12 Carbon Dioxide 27 mmol/L (22-30) 04/02/17 08:12 Anion Gap 8 mmol/L 04/02/17 08:12 BUN 10 mg/dL (7-17) 04/02/17 08:12 Creatinine 0.94 mg/dL (0.52-1.04) 04/02/17 08:12 Est GFR (MDRD) Af Amer >60 (>60 ml/min/1.73 sqM) 04/02/17 08:12 Est GFR (MDRD) Non-Af >60 (>60 ml/min/1.73 sqM) 04/02/17 08:12 Glucose 116 mg/dL (74-99) H 04/02/17 08:12 POC Glucose (mg/dL) 83 mg/dL (75-99) 04/02/17 21:32 POC Glu Field Handyman GABRIEL Nan Fox 04/02/17 21:[address] Glu mg/dL 249 mg/dL 03/31/17 15:36 Hemoglobin A1c 10.3 % (4.2-6.1) H 03/31/17 15:36 Calcium 9.6 mg/dL (8.4-10.2) 04/02/17 08:12 Total Bilirubin 0.4 mg/dL (0.2-1.3) 04/01/17 08:23 AST 27 U/L (14-36) 04/01/17 08:23 ALT 34 U/L (9-52) 04/01/17 08:23 Alkaline Phosphatase 59 U/L (38-126) 04/01/17 08:23 Total Protein 5.7 g/dL (6.3-8.2) L 04/01/17 08:23 Albumin 3.2 g/dL (3.5-5.0) L 04/01/17 08:23 Vancomycin Trough 25.1 ug/mL 04/02/17 16:50 Microbiology 03/31/17 15:36 Blood Blood Culture - Preliminary No Growth after 48 hours 03/31/17 15:36 Foot - Right Gram Stain - Final 03/31/17 15:36 Foot - Right Wound Culture - Final Assessment and Plan (1) Diabetic ulcer of right foot associated with type 2 diabetes mellitus Narrative/Plan: The patient has been seen by vascular surgery and there are plans for debridement of the toe, the patient does not want amputation at this point in time. The plan will be for a debridement, antibiotic therapy and wound care and if needed amputation will then be considered. She has tearful and depressed about how she feels overall. She has not felt well in a long time and the possibility of amputation has are extremely upset. With her history of staphylococcal infection in the past vancomycin is being utilized him with a diabetic foot infection Zosyn is being utilizable cultures are in process. Local wound care was started with Iesha as per the vascular surgeon. At this time elevation at rest. Optimizing of her blood sugars as required for improvement of her status. She has been working to try to improve her blood sugars as of late but still has an A1c of 10.3 which markedly increases her risk for infections. She is aware of her need to improve her blood sugars is been trying to work with that as of late. However glucose control for the last few days may not be enough to salvage the toe. Will need ongoing aggressive outpatient glucose control, and will need athletic equipment custodian evaluation for shoes and inserts. Toe has been debrided today. We'll obtain a bone scan to evaluate for the possibility of a deeper infection. Deeper infection is found we'll plan outpatient intravenous antibiotic therapy with goal of total salvage in follow- up in the wound healing Center. Status: Acute
[2017-04-02] MEDS: VANCOMYCIN 1,750 MG in SODIUM CHLORIDE 0.9% 250 ML IVPB SCH (23:49)
[2017-04-03 00:04] LABS: Glucose,Whole Blood 133 mg/dL (75-99)
[2017-04-03] MEDS: PIPERACILLIN-TAZOBACTAM 3.375 GM in DEXTROSE/WATER 1 50ML.BAG IVPB SCH ×4 (02:24→23:25)
[2017-04-03] MEDS: HYDROmorphone 1 MG/ML 1 ML SYRINGE IV PRN ×3 (03:43→19:31)
[2017-04-03] MEDS: SODIUM CHLORIDE 0.9% 1,000 ML IV SCH ×3 (03:47→23:24)
[2017-04-03 07:37] LABS: Glucose,Whole Blood 169 mg/dL (75-99)
[2017-04-03 08:21] LABS: INR 1.4 (<1.2); Prothrombin Time 13.9 sec (9.0-12.0)
[2017-04-03] MEDS: PANTOPRAZOLE 40 MG TABLET PO SCH (08:33)
[2017-04-03] MEDS: INSULIN LISPRO (humaLOG) 300 UNIT/3 ML VIAL SQ SCH ×7 (08:33→20:55)
[2017-04-03] MEDS: ASPIRIN 81 MG CHEW PO SCH (08:34)
[2017-04-03] MEDS: COLLAGENASE 250 UNIT/GM OINTMENT 30 GM TUBE TOPICAL SCH (08:34)
[2017-04-03] MEDS: DULoxetine HCL 30 MG CAPSULE.DR PO SCH (08:34)
[2017-04-03] MEDS: FUROSEMIDE 20 MG TAB PO SCH (08:34)
[2017-04-03] MEDS: metFORMIN 500 MG TAB PO SCH ×2 (08:35→20:56)
[2017-04-03] MEDS: GABAPENTIN 400 MG CAP PO SCH ×2 (08:35→20:34)
[2017-04-03] MEDS: NICOTINE 14MG/24HR PATCH TRANSDERM SCH (08:36)
[2017-04-03] MEDS: POTASSIUM CHLORIDE ER 10 MEQ TAB.ER.PRT PO SCH ×2 (08:36→20:35)
[2017-04-03] MEDS: HYDROcodone/APAP 10-325MG 1 EACH TAB PO PRN ×2 (08:40→16:14)
[2017-04-03 08:41] LABS: Anion Gap 9 mmol/L; Blood Urea Nitrogen 12 mg/dL (7-17); Calcium 9.7 mg/dL (8.4-10.2); Carbon Dioxide 26 mmol/L (22-30); Chloride 104 mmol/L (98-107); Glucose 148 mg/dL (74-99); Non-African American GFR(MDRD) 52 (>60 ml/min/1.73 sqM); Potassium 5.2 mmol/L (3.5-5.1); Sodium 139 mmol/L (137-145)
--- NOTE | 2017-04-03 11:59 | NM ---
EXAMINATION TYPE: NM bone 3 phase DATE OF EXAM: 04/03/2017 COMPARISON: Radiograph dated 03/31/2017 HISTORY: Right great toe infection FINDINGS: Triple phase bone scintigraphy was performed following the injection of29.5 mCi Tc 99m MDP. Immediat e images and 3 hours post injection images acquired. There is asymmetric flow during the angiographi c phase to the right foot. Abnormal asymmetric radiotracer accumulation is seen on blood pool and del ayed images within the right foot localized to the metatarsals and first great toe but most pronounce d within the first great toe. IMPRESSION: Findings most compatible with osteomyelitis of the first great toe and hyperemic response to the visualized right lower extremity.
--- NOTE | 2017-04-03 12:49 | OP ---
OPERATIVE REPORT Date of Surgery: PREOP DIAGNOSIS: Infected callus right foot big toe plantar aspect measurement is 1 x 1-1/2 cm. PROCEDURE: Excision of the callus down to subcutaneous tissue. PROCEDURE IN DETAIL: The patient was seen in the room and the right foot was prepped and draped in a sterile manner. 1% lidocaine were infiltrated at the right big toe and using knife incision was made on the top of the infected callus where it was deepened through skin, fat and subcutaneous tissue. The infected callus was excised with a knife and then we did this and there was some debridement of subcutaneous tissue. Some bleeding was noted which was controlled and we took some tissue and sent for the deep culture. The wound was irrigated with saline and Santyl cream applied to the wound pressure dressing was applied. The patient tolerated the procedure well. MMODL / IJN: [id number] /
--- NOTE | 2017-04-03 13:17 | P.PN ---
Subjective This is a 56-year-old female patient of Dr. Balderas with history of CAD , with cardiac stent in May 2016,24/05 ICA, followed by 2 other stents 1 in the LAD in 2011 the other one in the obtuse marginal branch in 2011 as well hypertension and COPD diabetes mellitus type 2, previous multiple DVT and PE requiring chronic anticoagulation followed by Dr. Bill, patient was recently hospitalized at [facility] in 02/28/2017 after she developed to have a significant lightheadedness while she was walking in the kitchen suddenly passed out and she ended up having neuro workup that was negative including ultrasound of the carotid echocardiogram and EEG along with a computed tomography scan of the brain that showed benign meningioma probably, patient stated that she had another episode of syncope about November 2016 at that time, patient was feeling better after she was seen and cardiology and she was taken off her metoprolol and lisinopril and the patient developed to have a significant callus to the right big toe at the bottom of it and stated that about a year ago she was seen Dr. Vu from the wound care center when she was treated with IV antibiotic for 6 weeks, patient stated that she hasn't seen him since June and she has been doing fine up until recently when she developed to have a significant scab falling off the callus of the right toe and 48 hours developed to have a significant tenderness and swelling to the right big toe along with the darkness at the base of the callus patient ended up coming to the ER at [facility] since she was given an appointment to see Dr. Vu and the wound healing Center on 04/09/2017, patient was found to have significant gas under the skin with periosteal reaction suggestive of early osteomyelitis she was started on IV antibiotic in the forms of vancomycin and Zosyn infectious disease consultation and vascular surgery consultation was obtained. 04/02: Patient is followed by Dr. Noel and Dr. Vu. Her hemoglobin A1c is 10.3. Here, patient has had a low reading of 60 but otherwise blood sugars are running 84-116. Dr. Noel is planning for debridement today. INR is 1.9. She remains off Coumadin. She is on IV Zosyn and vancomycin. Blood culture showing no growth at 24 hours. Wound culture is in progress. 04/03: Patient underwent a bedside debridement yesterday with Dr. Bert. She still complains of small amount of edema in the right foot. Dr. Vu has ordered a bone scan which is in process. He is waiting results to determine if patient will need IV antibiotics. Coumadin will remain on hold until determination is made with her PICC line will be necessary.. NOTE: Patient does NOT have history of MRSA Objective - Vital Signs Vital signs: Vital Signs Temp 98.4 F 04/03/17 07:00 Pulse 70 04/03/17 07:00 Resp 16 04/03/17 07:00 BP 119/56 04/03/17 07:00 Pulse Ox 98 04/03/17 07:00 Intake & Output 04/02/17 04/03/17 04/03/17 18:59 06:59 18:59 Weight 89.358 kg Other: Voiding Method Toilet Toilet # Voids 4 2 - Exam General appearance: average body habitus, mild distress - EENT Eyes: disc margins sharp, EOMI, PERRLA, no ptosis, no scleral icterus, normal appearance ENT: hearing grossly normal, NA/AT, normal oropharynx, no thrush, no tonsillar exudates, no tonsillar swelling Ears: bilateral: normal - Neck Neck: no lymphadenopathy, normal ROM, no rigidity, no stridor, no thyromegaly Carotids: bilateral: upstroke normal Thyroid: bilateral: normal size - Respiratory Respiratory: bilateral: diminished, negative: dullness, rales, rhonchi, wheezing , prolonged expiration - Cardiovascular Rhythm: regular Heart sounds: normal: S1, S2 Abnormal Heart Sounds: systolic murmur, no rub, no S3 Gallop, no S4 Gallop, no click - Gastrointestinal General gastrointestinal: normal bowel sounds, soft, no splenomegaly, no tenderness, no umbilical hernia, no ventral hernia - Integumentary Integumentary: ulcer (right big toe ulcer with significant soft tissue infection and possible osteomyelitis) - Neurologic Neurologic: CNII-XII intact - Musculoskeletal Musculoskeletal: strength equal bilaterally - Psychiatric Psychiatric: A&O x's 3, appropriate affect, intact judgment & insight - Labs CBC & Chem 7: 04/01/17 08:23 04/03/17 07:21 Labs: Abnormal Lab Results - Last 24 Hours (Table) 04/02/17 04/02/17 04/02/17 Range/Units 15:41 16:58 20:51 PT (9.0-12.0) sec INR (<1.2) Potassium (3.5-5.1) mmol/L Creatinine (0.52-1.04) mg/dL Glucose (74-99) mg/dL POC Glucose (mg/dL) 139 H 138 H 71 L (75-99) mg/dL 04/02/17 04/03/17 04/03/17 Range/Units 23:50 07:21 07:21 PT 13.9 H (9.0-12.0) sec INR 1.4 H (<1.2) Potassium 5.2 H (3.5-5.1) mmol/L Creatinine 1.10 H (0.52-1.04) mg/dL Glucose 148 H (74-99) mg/dL POC Glucose (mg/dL) 133 H (75-99) mg/dL 04/03/17 Range/Units 07:28 PT (9.0-12.0) sec INR (<1.2) Potassium (3.5-5.1) mmol/L Creatinine (0.52-1.04) mg/dL Glucose (74-99) mg/dL POC Glucose (mg/dL) 169 H (75-99) mg/dL Microbiology - Last 24 Hours (Table) 04/02/17 16:26 Gram Stain - Preliminary Toe - Right First Tissue Culture - Preliminary 03/31/17 15:36 Blood Culture - Preliminary Blood No Growth after 48 hours 03/31/17 15:36 Gram Stain - Final Foot - Right Wound Culture - Final Assessment and Plan Plan: 1. Right great toe diabetic and peripheral artery disease ulcer with significant cellulitis and early osteomyelitis. Vascular surgery consult infectious disease consult IV vancomycin as well as Zosyn, blood culture, wound culture, aerobic and anaerobic, keep the leg elevated, apply Santyl to the bottom of the foot and wrap with Kerlix. Status post bedside debridement with Dr. Noel. Bone scan. 2. Neurocardiogenic syncope. Patient was taken off lisinopril as well as metoprolol, monitor the patient very closely for syncopal episode. 3. Diabetes mellitus type 2. Continue patient on Lantus 70 units at bedtime along with a sliding scale insulin, continue became before each meal and at bedtime. 4. Coronary artery disease status post multiple PCI with ischemic cardiomyopathy . Patient seen cardiology on regular basis. Continue patient on Lipitor 20 mg orally once every day as well as nitroglycerin as needed along with aspirin 81 mg orally once every day. 5. Hypertension and hypertensive cardiovascular disease. Patient was recently taken off her beta nisa as well as lisinopril because of the orthostatic hypotension. 6. chronic DVT and PEs. Continue patient on Coumadin keep her INR. 2-3. 7. Chronic tobacco use and dependence with COPD. Stable at this point in time. Patient will be offered nicotine patch. She was advised about smoking cessation and increased risk of CAD, CVA, and malignancy along with foot amputation. 8. Hyperlipidemia. Continue patient on Lipitor 20 mg orally once every day. 9. Gastritis. Continue patient on Protonix 40 mg orally once every day. 10. Severe PAD under the care of Dr. Villarreal and Dr. Bill, patient underwent PTBA in the past by Dr. Villarreal at the [facility]. 11. Diabetic polyneuropathy. Continue gabapentin 800 mg orally twice every day. 12. DVT prophylaxis. Continue Coumadin keep an INR between 2-3. 13. GI prophylaxis. Continue Protonix 40 mg orally once every day. Discharge plan: Return home Impression and plan of care have been directed as dictated by the signing physician. Kerri Kevin nurse practitioner acting as scribe for signing physician.
[2017-04-03 14:07] LABS: Glucose,Whole Blood 144 mg/dL (75-99)
[2017-04-03] MEDS: WARFARIN 7.5 MG TAB PO SCH (16:03)
[2017-04-03] MEDS: INSULIN GLARGINE 100 UNIT/ML 10 ML VIAL SQ SCH (16:12)
[2017-04-03 16:13] LABS: Glucose,Whole Blood 192 mg/dL (75-99)
[2017-04-03 18:14] LABS: Glucose,Whole Blood 168 mg/dL (75-99)
[2017-04-03] MEDS: VANCOMYCIN 1,750 MG in SODIUM CHLORIDE 0.9% 250 ML IVPB SCH (20:34)
[2017-04-03 21:08] LABS: Glucose,Whole Blood 121 mg/dL (75-99)
--- NOTE | 2017-04-03 23:21 | P.PN ---
Subjective Principal diagnosis: Diabetic foot infection This is a 56-year-old female patient well-known to ID service as she has been a patient in the wound healing center for diabetic foot ulceration on the right great toe and underwent treatment with IV antibiotics. She was discharged from the wound healing Center in June 2016. Patient states she developed this second callus to the right great toe and this fell off 1 week ago but she has had increasing redness swelling and pain to the area. She tried to set up an appointment with the wound healing center which is made for April 09. Yesterday she was getting out of the shower and area looked much worse with increased swelling going up into her foot. She also developed a blackened area in the medial and around the plantar and dorsal surface of the toe with a foul odor. Antibiotic therapy was initiated. She's been seen by Dr. Noel from vascular surgery. A bedside debridement has occurred . She is feeling somewhat better. But does have her chronic malaise and fatigue. Objective - Vital Signs Vital signs: Vital Signs Temp 97.7 F 04/03/17 15:00 Pulse 66 04/03/17 15:00 Resp 16 04/03/17 15:00 BP 121/69 04/03/17 15:00 Pulse Ox 97 04/03/17 15:00 Intake & Output 04/03/17 04/03/17 04/04/17 06:59 18:59 06:59 Weight 89.358 kg 89.358 kg Other: Voiding Method Toilet Toilet Toilet # Voids 2 3 # Bowel Movements 3 - Exam Gen: This is a 56-year-old female. Less anxious today. Did well with the bedside debridement HEENT: Head is atraumatic, normocephalic. Pupils equal, round. Sclerae is anicteric. Oral mucous membranes are moist. Dentures are in place. No thrush or lesions noted. NECK: Supple. No JVD. No lymphadenopathy. No thyromegaly. LUNGS: Clear to auscultation. No wheezes or rhonchi. No intercostal retractions. HEART: Regular rate and rhythm. No murmur. ABDOMEN: Soft. Bowel sounds are present. No masses. Epigastric, left upper and left lower quadrant tenderness. EXTREMITIES: Trace pedal edema left with brawny skin changes. Diabetic ulcer to the right great toe. Is now status post debridement. Some granulation tissue and be seen at the base. NEUROLOGICAL: Patient is awake, alert and oriented x3. - Labs CBC & Chem 7: 04/01/17 08:23 04/03/17 07:21 Labs: Abnormal Lab Results - Last 24 Hours (Table) 04/02/17 04/03/17 04/03/17 Range/Units 23:50 07:21 07:21 PT 13.9 H (9.0-12.0) sec INR 1.4 H (<1.2) Potassium 5.2 H (3.5-5.1) mmol/L Creatinine 1.10 H (0.52-1.04) mg/dL Glucose 148 H (74-99) mg/dL POC Glucose (mg/dL) 133 H (75-99) mg/dL 04/03/17 04/03/17 04/03/17 Range/Units 07:28 12:04 16:11 PT (9.0-12.0) sec INR (<1.2) Potassium (3.5-5.1) mmol/L Creatinine (0.52-1.04) mg/dL Glucose (74-99) mg/dL POC Glucose (mg/dL) 169 H 144 H 192 H (75-99) mg/dL 04/03/17 04/03/17 Range/Units 18:12 20:54 PT (9.0-12.0) sec INR (<1.2) Potassium (3.5-5.1) mmol/L Creatinine (0.52-1.04) mg/dL Glucose (74-99) mg/dL POC Glucose (mg/dL) 168 H 121 H (75-99) mg/dL Microbiology - Last 24 Hours (Table) 03/31/17 15:36 Blood Culture - Preliminary Blood No Growth after 72 hours 04/02/17 16:26 Gram Stain - Preliminary Toe - Right First Tissue Culture - Preliminary Laboratory Results WBC 8.9 k/uL (3.8-10.6) 04/01/17 08:23 RBC 3.91 m/uL (3.80-5.40) 04/01/17 08:23 Hgb 11.7 gm/dL (11.4-16.0) 04/01/17 08:23 Hct 34.6 % (34.0-46.0) 04/01/17 08:23 MCV 88.4 fL (80.0-100.0) 04/01/17 08:23 MCH 29.8 pg (25.0-35.0) 04/01/17 08:23 MCHC 33.7 g/dL (31.0-37.0) 04/01/17 08:23 RDW 15.1 % (11.5-15.5) 04/01/17 08:23 Plt Count 229 k/uL (150-450) 04/01/17 08:23 Neutrophils % 61 % 04/01/17 08:23 Lymphocytes % 30 % 04/01/17 08:23 Monocytes % 5 % 04/01/17 08:23 Eosinophils % 3 % 04/01/17 08:23 Basophils % 0 % 04/01/17 08:23 Neutrophils # 5.4 k/uL (1.3-7.7) 04/01/17 08:23 Lymphocytes # 2.7 k/uL (1.0-4.8) 04/01/17 08:23 Monocytes # 0.4 k/uL (0-1.0) 04/01/17 08:23 Eosinophils # 0.3 k/uL (0-0.7) 04/01/17 08:23 Basophils # 0.0 k/uL (0-0.2) 04/01/17 08:23 ESR 40 mm/hr (0-20) H 04/01/17 08:23 PT 13.9 sec (9.0-12.0) H 04/03/17 07:21 INR 1.4 (<1.2) H 04/03/17 07:21 Sodium 139 mmol/L (137-145) 04/03/17 07:21 Potassium 5.2 mmol/L (3.5-5.1) H 04/03/17 07:21 Chloride 104 mmol/L (98-107) 04/03/17 07:21 Carbon Dioxide 26 mmol/L (22-30) 04/03/17 07:21 Anion Gap 9 mmol/L 04/03/17 07:21 BUN 12 mg/dL (7-17) 04/03/17 07:21 Creatinine 1.10 mg/dL (0.52-1.04) H 04/03/17 07:21 Est GFR (MDRD) Af Amer >60 (>60 ml/min/1.73 sqM) 04/03/17 07:21 Est GFR (MDRD) Non-Af 52 (>60 ml/min/1.73 sqM) 04/03/17 07:21 Glucose 148 mg/dL (74-99) H 04/03/17 07:21 POC Glucose (mg/dL) 121 mg/dL (75-99) H 04/03/17 20:54 POC Glu Online Marketer ID Leah Ko 04/03/17 20:[address] Glu mg/dL 249 mg/dL 03/31/17 15:36 Hemoglobin A1c 10.3 % (4.2-6.1) H 03/31/17 15:36 Calcium 9.7 mg/dL (8.4-10.2) 04/03/17 07:21 Total Bilirubin 0.4 mg/dL (0.2-1.3) 04/01/17 08:23 AST 27 U/L (14-36) 04/01/17 08:23 ALT 34 U/L (9-52) 04/01/17 08:23 Alkaline Phosphatase 59 U/L (38-126) 04/01/17 08:23 Total Protein 5.7 g/dL (6.3-8.2) L 04/01/17 08:23 Albumin 3.2 g/dL (3.5-5.0) L 04/01/17 08:23 Vancomycin Trough 25.1 ug/mL 04/02/17 16:50 Microbiology 03/31/17 15:36 Blood Blood Culture - Preliminary No Growth after 72 hours 04/02/17 16:26 Toe - Right First Gram Stain - Preliminary 04/02/17 16:26 Toe - Right First Tissue Culture - Preliminary 03/31/17 15:36 Foot - Right Gram Stain - Final 03/31/17 15:36 Foot - Right Wound Culture - Final Bone scan with osteomyelitis Assessment and Plan (1) Diabetic ulcer of right foot associated with type 2 diabetes mellitus Narrative/Plan: The patient has been seen by vascular surgery and there are plans for debridement of the toe, the patient does not want amputation at this point in time. The plan will be for a debridement, antibiotic therapy and wound care and if needed amputation will then be considered. She has tearful and depressed about how she feels overall. She has not felt well in a long time and the possibility of amputation has are extremely upset. With her history of staphylococcal infection in the past vancomycin is being utilized him with a diabetic foot infection Zosyn is being utilizable cultures are in process. Local wound care was started with Iesha as per the vascular surgeon. At this time elevation at rest. Optimizing of her blood sugars as required for improvement of her status. She has been working to try to improve her blood sugars as of late but still has an A1c of 10.3 which markedly increases her risk for infections. She is aware of her need to improve her blood sugars is been trying to work with that as of late. However glucose control for the last few days may not be enough to salvage the toe. Will need ongoing aggressive outpatient glucose control, and will need keyliner evaluation for shoes and inserts. Toe has been debrided . a bone scan has been performed reveals evidence of the bony infection to the great toe. Vascular PICC line will be placed and will plan on ertapenem for diabetic foot infection. Deeper infection is found we'll plan outpatient intravenous antibiotic therapy with goal of total salvage in follow-up in the wound healing Center. Status: Acute
[2017-04-04] MEDS: SODIUM CHLORIDE 0.9% 1,000 ML IV SCH (00:04)
[2017-04-04] MEDS: HYDROcodone/APAP 10-325MG 1 EACH TAB PO PRN ×3 (01:26→15:06)
[2017-04-04] MEDS: HYDROmorphone 1 MG/ML 1 ML SYRINGE IV PRN ×2 (04:25→10:30)
[2017-04-04] MEDS: ONDANSETRON 4 MG/2 ML VIAL IVP PRN (04:34)
[2017-04-04 07:43] LABS: Glucose,Whole Blood 105 mg/dL (75-99)
[2017-04-04] MEDS: metFORMIN 500 MG TAB PO SCH (08:07)
[2017-04-04] MEDS: PANTOPRAZOLE 40 MG TABLET PO SCH (08:07)
[2017-04-04] MEDS: POTASSIUM CHLORIDE ER 10 MEQ TAB.ER.PRT PO SCH (08:07)
[2017-04-04] MEDS: DULoxetine HCL 30 MG CAPSULE.DR PO SCH (08:07)
[2017-04-04] MEDS: GABAPENTIN 400 MG CAP PO SCH (08:07)
[2017-04-04] MEDS: NICOTINE 14MG/24HR PATCH TRANSDERM SCH (08:07)
[2017-04-04] MEDS: ASPIRIN 81 MG CHEW PO SCH (08:07)
[2017-04-04] MEDS: INSULIN LISPRO (humaLOG) 300 UNIT/3 ML VIAL SQ SCH ×4 (08:08→13:25)
[2017-04-04] MEDS: VANCOMYCIN 1,750 MG in SODIUM CHLORIDE 0.9% 250 ML IVPB SCH (08:11)
[2017-04-04 08:19] LABS: CH 29.7; CHCM 33.4; HCT 37.2 % (34.0-46.0); HDW 3.02; HGB 12.1 gm/dL (11.4-16.0); MCH 29.3 pg (25.0-35.0); MCHC 32.7 g/dL (31.0-37.0); MCV 89.5 fL (80.0-100.0); Mean Platelet Volume 7.6; RBC 4.15 m/uL (3.80-5.40); RDW 15.4 % (11.5-15.5); WBC 8.1 k/uL (3.8-10.6)
[2017-04-04 08:22] VITALS: RESP 16
[2017-04-04 08:23] LABS: INR 1.2 (<1.2); Prothrombin Time 11.7 sec (9.0-12.0)
[2017-04-04] MEDS ORDERED: LIDOCAINE 2% INJ 20 MG/ML SQ ONE (08:41)
[2017-04-04 08:45] LABS: Anion Gap 10 mmol/L; Blood Urea Nitrogen 13 mg/dL (7-17); Carbon Dioxide 29 mmol/L (22-30); Chloride 102 mmol/L (98-107); Glucose 87 mg/dL (74-99); Non-African American GFR(MDRD) 55 (>60 ml/min/1.73 sqM); Potassium 4.9 mmol/L (3.5-5.1); Sodium 141 mmol/L (137-145)
--- NOTE | 2017-04-04 09:00 | IR ---
PICC LINE PLACEMENT: HISTORY: Infection requiring long-term antibiotic therapy PROCEDURE: Ultrasound and fluoroscopic guidance of PICC line placement. COMPLICATIONS: None ANESTHESIA: 1. 1% Lidocaine locally. FINDINGS/TECHNIQUE: The procedure was explained to the patient. The risks, complications, benefits and alternatives were discussed and any questions were answered. Informed consent was obtained. The patient was placed supine on the fluoroscopic table and prepped and draped in the usual sterile fash ion. Utilizing a 21 gauge needle and sonographic and fluoroscopic guidance, access in the left ceph alic vein was achieved and there is placement of a 0.018 guidewire. The vein is patent. A 4-F sheat h was placed over the guidewire. The guidewire and dilator were removed and a 4-F. PICC line was hanna bala through the sheath with the tip at the level of the SVC. The sheath was removed, the catheter wa s flushed and sutured into position. The patient was stable throughout the procedure and remained st able upon discharge from the Department of Radiology. The vein puncture was patent under ultrasound. A wall scale image was obtained to document patency of the vein punctured. All elements of the maximal barrier technique were utilized. FLUOROSCOPY TIME: 0.2 minutes. One image submitted. IMPRESSION: Successful PICC line placement under ultrasound and fluoroscopic guidance.
[2017-04-04] MEDS ORDERED: ERTAPENEM 1 GM in SODIUM CHLORIDE 0.9% 50 ML IVPB SCH (09:45)
[2017-04-04] MEDS: PIPERACILLIN-TAZOBACTAM 3.375 GM in DEXTROSE/WATER 1 50ML.BAG IVPB SCH (09:56)
[2017-04-04] MEDS: COLLAGENASE 250 UNIT/GM OINTMENT 30 GM TUBE TOPICAL SCH (11:47)
[2017-04-04 12:19] LABS: Glucose,Whole Blood 143 mg/dL (75-99)
--- NOTE | 2017-04-04 14:15 | P.DS ---
Providers Date of admission: 03/31/17 16:00 Expected date of discharge: 04/04/17 Attending physician: Ramirez Balderas Consults: 03/31/17 16:01 Consult Physician Urgent Consulting Provider: Ramirez Vu Consult Reason/Comments: Infection right foot Do you want consulting provider notified?: Yes 03/31/17 19:46 Consult Physician Urgent Consulting Provider: Efraín Noel Consult Reason/Comments: right foot diabetic ulcer Do you want consulting provider notified?: Yes Primary care physician: Ramirez Andrey [facility] Course: This is a 56-year-old female patient of Dr. Balderas with history of CAD , with cardiac stent in May 2016,24/05 ICA, followed by 2 other stents 1 in the LAD in 2011 the other one in the obtuse marginal branch in 2011 as well hypertension and COPD diabetes mellitus type 2, previous multiple DVT and PE requiring chronic anticoagulation followed by Dr. Bill, patient was recently hospitalized at [facility] in 02/28/2017 after she developed to have a significant lightheadedness while she was walking in the kitchen suddenly passed out and she ended up having neuro workup that was negative including ultrasound of the carotid echocardiogram and EEG along with a computed tomography scan of the brain that showed benign meningioma probably, patient stated that she had another episode of syncope about November 2016 at that time, patient was feeling better after she was seen and cardiology and she was taken off her metoprolol and lisinopril and the patient developed to have a significant callus to the right big toe at the bottom of it and stated that about a year ago she was seen Dr. Vu from the wound care center when she was treated with IV antibiotic for 6 weeks, patient stated that she hasn't seen him since June and she has been doing fine up until recently when she developed to have a significant scab falling off the callus of the right toe and 48 hours developed to have a significant tenderness and swelling to the right big toe along with the darkness at the base of the callus patient ended up coming to the ER at [facility] since she was given an appointment to see Dr. Vu and the wound healing Center on 04/09/2017, patient was found to have significant gas under the skin with periosteal reaction suggestive of early osteomyelitis she was started on IV antibiotic in the forms of vancomycin and Zosyn infectious disease consultation and vascular surgery consultation was obtained. 04/02: Patient is followed by Dr. Noel and Dr. Vu. Her hemoglobin A1c is 10.3. Here, patient has had a low reading of 60 but otherwise blood sugars are running 84-116. Dr. Noel is planning for debridement today. INR is 1.9. She remains off Coumadin. She is on IV Zosyn and vancomycin. Blood culture showing no growth at 24 hours. Wound culture is in progress. 04/03: Patient underwent a bedside debridement yesterday with Dr. Noel. She still complains of small amount of edema in the right foot. Dr. Vu has ordered a bone scan which is in process. He is waiting results to determine if patient will need IV antibiotics. Coumadin will remain on hold until determination is made with her PICC line will be necessary.. 04/04: INR today is 1.2. Patient underwent PICC line placement today. She will be resumed back on Coumadin. Dr. Vu recommends Ertapenem for 6 week course. Antibiotics transitioned to Ertapenem prior to discharge. Patient will be discharged home today in stable condition if all arrangements are completed. NOTE: Patient does NOT have history of MRSA Discharge diagnoses: 1. Right great toe diabetic and peripheral artery disease ulcer with significant cellulitis and osteomyelitis status post bedside debridement. 2. Neurocardiogenic syncope. 3. Diabetes mellitus type 2. 4. Coronary artery disease status post multiple PCI with ischemic cardiomyopathy. 5. Hypertension and hypertensive cardiovascular disease. 6. chronic DVT and PEs. 7. Chronic tobacco use and dependence with COPD. Stable at this point in time. 8. Hyperlipidemia. 9. Gastritis. 10. Severe PAD under the care of Dr. Villarreal and Dr. Bill, patient underwent PTBA in the past by Dr. Villarreal at the [facility]. 11. Diabetic polyneuropathy. Discharge plan: Return home, [facility], IV antibiotics with [facility] Impression and plan of care have been directed as dictated by the signing physician. Kerri Kevin nurse practitioner acting as scribe for signing physician. Patient Condition at Discharge: Good Plan - Discharge Summary New Discharge Prescriptions: New Ertapenem [INVanz] 1 gm IVPB Q24H #42 bag HYDROcodone/APAP 10-325MG [[place] 10-325] 1 each PO Q4HR PRN #100 tab PRN Reason: MODERATE Pain Nicotine 14Mg/24Hr Patch [Habitrol] 1 patch TRANSDERM DAILY #30 patch Continue Nitroglycerin Sl Tabs [Nitrostat] 0.4 mg SUBLINGUAL Q5M PRN PRN Reason: Chest Pain Gabapentin 800 mg PO BID DULoxetine HCL [Cymbalta] 30 mg PO QAM Ergocalciferol [Vitamin D2 (DRISDOL)] 50,000 unit PO [id number] metFORMIN HCL 1,000 mg PO BID Insulin Lispro [humaLOG Kwikpen] 14 - 18 unit SQ AC-TID Warfarin [Coumadin] 7.5 mg PO SUMOWETHSA Aspirin EC [Ecotrin Low Dose] 81 mg PO DAILY Rosuvastatin [Crestor] 10 mg PO HS #0 Insulin Glargine,Hum.rec.anlog [Lantus Solostar] 70 unit SQ DAILY@1500 Warfarin [Coumadin] 2.5 mg PO TUFR #0 Potassium Chloride [K-Tab ER] 10 meq PO BID Furosemide [Lasix] 20 mg PO Q48H Pantoprazole Sodium [Protonix] 40 mg PO DAILY Discontinued Hydrocodone/Acetaminophen [Hydrocodon-Acetaminophn 10-325] 1 tab PO Q8H PRN PRN Reason: Pain traMADol HCL [Ultram] 50 mg PO Q8H PRN PRN Reason: Pain Discharge Medication List Gabapentin 800 mg PO BID 12/14/13 [History] Nitroglycerin Sl Tabs [Nitrostat] 0.4 mg SUBLINGUAL Q5M PRN 12/14/13 [History] DULoxetine HCL [Cymbalta] 30 mg PO QAM 07/15/14 [History] Ergocalciferol [Vitamin D2 (DRISDOL)] 50,000 unit PO [id number] 08/26/15 [History] Insulin Lispro [humaLOG Kwikpen] 14 - 18 unit SQ AC-TID 08/26/15 [History] metFORMIN HCL 1,000 mg PO BID 08/26/15 [History] Aspirin EC [Ecotrin Low Dose] 81 mg PO DAILY 12/23/15 [History] Warfarin [Coumadin] 7.5 mg PO SUMOWETHSA 12/23/15 [History] Rosuvastatin [Crestor] 10 mg PO HS #0 10/01/16 [Rx] Insulin Glargine,Hum.rec.anlog [Lantus Solostar] 70 unit SQ DAILY@1500 01/18/17 [History] Warfarin [Coumadin] 2.5 mg PO TUFR #0 02/28/17 [Rx] Furosemide [Lasix] 20 mg PO Q48H 03/31/17 [History] Pantoprazole Sodium [Protonix] 40 mg PO DAILY 03/31/17 [History] Potassium Chloride [K-Tab ER] 10 meq PO BID 03/31/17 [History] Ertapenem [INVanz] 1 gm IVPB Q24H #42 bag 04/03/17 [Rx] HYDROcodone/APAP 10-325MG [[place] 10-325] 1 each PO Q4HR PRN #100 tab 04/04/17 [ Rx] Nicotine 14Mg/24Hr Patch [Habitrol] 1 patch TRANSDERM DAILY #30 patch 04/04/17 [ Rx] Follow up Appointment(s)/Referral(s): Ramirez Vu MD [STAFF PHYSICIAN] - 04/12/17 10:30 am (or Dr Noel in the Wound Center) Ramirez Balderas MD [Primary Care Provider] - 1 Week (office closed for lunch.) [facility], [NON-STAFF] - 1 Week Ambulatory/Diagnostic Orders: Basic Metabolic Panel [LAB.AMB] Location: Determined By Patient Complete Blood Count w/diff [LAB.AMB] Location: Determined By Patient Miscellaneous Lab Order [LAB.AMB] Location: Determined By Patient Patient Instructions/Handouts: Wound Infection (DC) Activity/Diet/Wound Care/Special Instructions: [facility] Infusion for antibiotics: [phone]. Discharge Disposition: HOME WITH HOME HEALTH SERVICES
[2017-04-04] MEDS: INSULIN GLARGINE 100 UNIT/ML 10 ML VIAL SQ SCH (15:03)
[2017-04-04 17:41] VITALS: BP 127/66; PULSE 60; TEMP 96.9
--- NOTE | 2017-04-04 18:55 | P.PN ---
Subjective Principal diagnosis: Diabetic foot infection This is a 56-year-old female patient well-known to ID service as she has been a patient in the wound healing center for diabetic foot ulceration on the right great toe and underwent treatment with IV antibiotics. She was discharged from the wound healing Center in June 2016. Patient states she developed this second callus to the right great toe and this fell off 1 week ago but she has had increasing redness swelling and pain to the area. She tried to set up an appointment with the wound healing center which is made for April 09. Yesterday she was getting out of the shower and area looked much worse with increased swelling going up into her foot. She also developed a blackened area in the medial and around the plantar and dorsal surface of the toe with a foul odor. Antibiotic therapy was initiated. She's been seen by Dr. Noel from vascular surgery. A bedside debridement has occurred . She is feeling somewhat better. But does have her chronic malaise and fatigue. Objective - Vital Signs Vital signs: Vital Signs Temp 96.9 F L 04/04/17 15:00 Pulse 60 04/04/17 15:00 Resp 16 04/04/17 15:00 BP 127/66 04/04/17 15:00 Pulse Ox 95 04/04/17 15:00 Intake & Output 04/03/17 04/04/17 04/04/17 18:59 06:59 18:59 Intake Total 600 Balance 600 Weight 89.358 kg Intake: Oral 600 Other: Voiding Method Toilet Toilet # Voids 3 1 2 # Bowel Movements 3 - Exam Gen: This is a 56-year-old female. Less anxious today. Did well with the bedside debridement HEENT: Head is atraumatic, normocephalic. Pupils equal, round. Sclerae is anicteric. Oral mucous membranes are moist. Dentures are in place. No thrush or lesions noted. NECK: Supple. No JVD. No lymphadenopathy. No thyromegaly. LUNGS: Clear to auscultation. No wheezes or rhonchi. No intercostal retractions. HEART: Regular rate and rhythm. No murmur. ABDOMEN: Soft. Bowel sounds are present. No masses. Epigastric, left upper and left lower quadrant tenderness. EXTREMITIES: Trace pedal edema left with brawny skin changes. Diabetic ulcer to the right great toe. Is now status post debridement. Some granulation tissue and be seen at the base. NEUROLOGICAL: Patient is awake, alert and oriented x3. - Labs CBC & Chem 7: 04/04/17 07:24 04/04/17 07:24 Labs: Abnormal Lab Results - Last 24 Hours (Table) 04/03/17 04/04/17 04/04/17 Range/Units 20:54 07:07 07:24 INR 1.2 H (<1.2) POC Glucose (mg/dL) 121 H 105 H (75-99) mg/dL 04/04/17 Range/Units 12:17 INR (<1.2) POC Glucose (mg/dL) 143 H (75-99) mg/dL Microbiology - Last 24 Hours (Table) 03/31/17 15:36 Blood Culture - Preliminary Blood No Growth after 96 hours Laboratory Results WBC 8.1 k/uL (3.8-10.6) 04/04/17 07:24 RBC 4.15 m/uL (3.80-5.40) 04/04/17 07:24 Hgb 12.1 gm/dL (11.4-16.0) 04/04/17 07:24 Hct 37.2 % (34.0-46.0) 04/04/17 07:24 MCV 89.5 fL (80.0-100.0) 04/04/17 07:24 MCH 29.3 pg (25.0-35.0) 04/04/17 07:24 MCHC 32.7 g/dL (31.0-37.0) 04/04/17 07:24 RDW 15.4 % (11.5-15.5) 04/04/17 07:24 Plt Count 243 k/uL (150-450) 04/04/17 07:24 Neutrophils % 61 % 04/01/17 08:23 Lymphocytes % 30 % 04/01/17 08:23 Monocytes % 5 % 04/01/17 08:23 Eosinophils % 3 % 04/01/17 08:23 Basophils % 0 % 04/01/17 08:23 Neutrophils # 5.4 k/uL (1.3-7.7) 04/01/17 08:23 Lymphocytes # 2.7 k/uL (1.0-4.8) 04/01/17 08:23 Monocytes # 0.4 k/uL (0-1.0) 04/01/17 08:23 Eosinophils # 0.3 k/uL (0-0.7) 04/01/17 08:23 Basophils # 0.0 k/uL (0-0.2) 04/01/17 08:23 ESR 40 mm/hr (0-20) H 04/01/17 08:23 PT 11.7 sec (9.0-12.0) 04/04/17 07:24 INR 1.2 (<1.2) H 04/04/17 07:24 Sodium 141 mmol/L (137-145) 04/04/17 07:24 Potassium 4.9 mmol/L (3.5-5.1) 04/04/17 07:24 Chloride 102 mmol/L (98-107) 04/04/17 07:24 Carbon Dioxide 29 mmol/L (22-30) 04/04/17 07:24 Anion Gap 10 mmol/L 04/04/17 07:24 BUN 13 mg/dL (7-17) 04/04/17 07:24 Creatinine 1.04 mg/dL (0.52-1.04) 04/04/17 07:24 Est GFR (MDRD) Af Amer >60 (>60 ml/min/1.73 sqM) 04/04/17 07:24 Est GFR (MDRD) Non-Af 55 (>60 ml/min/1.73 sqM) 04/04/17 07:24 Glucose 87 mg/dL (74-99) 04/04/17 07:24 POC Glucose (mg/dL) 143 mg/dL (75-99) H 04/04/17 12:17 POC Glu Mill Platform Supervisor GABRIEL Ale Zee 04/04/17 12:[address] Glu mg/dL 249 mg/dL 03/31/17 15:36 Hemoglobin A1c 10.3 % (4.2-6.1) H 03/31/17 15:36 Calcium 10.0 mg/dL (8.4-10.2) 04/04/17 07:24 Total Bilirubin 0.4 mg/dL (0.2-1.3) 04/01/17 08:23 AST 27 U/L (14-36) 04/01/17 08:23 ALT 34 U/L (9-52) 04/01/17 08:23 Alkaline Phosphatase 59 U/L (38-126) 04/01/17 08:23 Total Protein 5.7 g/dL (6.3-8.2) L 04/01/17 08:23 Albumin 3.2 g/dL (3.5-5.0) L 04/01/17 08:23 Vancomycin Trough 25.1 ug/mL 04/02/17 16:50 Assessment and Plan (1) Diabetic ulcer of right foot associated with type 2 diabetes mellitus Narrative/Plan: The patient has been seen by vascular surgery and there are plans for debridement of the toe, the patient does not want amputation at this point in time. The plan will be for a debridement, antibiotic therapy and wound care and if needed amputation will then be considered. She has tearful and depressed about how she feels overall. She has not felt well in a long time and the possibility of amputation has are extremely upset. With her history of staphylococcal infection in the past vancomycin is being utilized him with a diabetic foot infection Zosyn is being utilizable cultures are in process. Local wound care was started with Iesha as per the vascular surgeon. At this time elevation at rest. Optimizing of her blood sugars as required for improvement of her status. She has been working to try to improve her blood sugars as of late but still has an A1c of 10.3 which markedly increases her risk for infections. She is aware of her need to improve her blood sugars is been trying to work with that as of late. However glucose control for the last few days may not be enough to salvage the toe. Will need ongoing aggressive outpatient glucose control, and will need blood bank business manager evaluation for shoes and inserts. Toe has been debrided , bone scan has been performed reveals evidence of the bony infection to the great toe. PICC line will be placed and will plan on ertapenem for diabetic foot infection. Deeper infection is found we'll plan outpatient intravenous antibiotic therapy with goal of total salvage in follow-up in the wound healing Center. Status: Acute
[2017-04-14] MEDS ORDERED: ERGOCALCIFEROL 50,000 UNIT CAP PO SCH (09:00)
== END 2017-04-04 16:04 | disposition home or self-care (01) | DRG 264 ==
LOC: EC 14:38 → 4MS4W 16:00
PROVIDERS: ADMIT Internal Medicine Geriatric Medicine; ATTEND Internal Medicine Geriatric Medicine
PROC: 0JBQ0ZZ Excision of Right Foot Subcutaneous Tissue and Fascia, Open Approach (ICD-10-PCS; principal; 2017-04-03)
PROC: B518ZZA Fluoroscopy of Superior Vena Cava, Guidance (ICD-10-PCS; 2017-04-04)
PROC: 02HV33Z Insertion of Infusion Device into Superior Vena Cava, Percutaneous Approach (ICD-10-PCS; 2017-04-04 08:31)
PROC: B548ZZA Ultrasonography of Superior Vena Cava, Guidance (ICD-10-PCS; 2017-04-04 08:31)
DX: E11.51 Type 2 diabetes mellitus with diabetic peripheral angiopathy without gangrene (principal); E11.42 Type 2 diabetes mellitus with diabetic polyneuropathy; I11.9 Hypertensive heart disease without heart failure; M86.8X7 Other osteomyelitis, ankle and foot; L03.115 Cellulitis of right lower limb; E11.69 Type 2 diabetes mellitus with other specified complication; E11.621 Type 2 diabetes mellitus with foot ulcer; L97.511 Non-pressure chronic ulcer of other part of right foot limited to breakdown of skin; B95.62 Methicillin resistant Staphylococcus aureus infection as the cause of diseases classified elsewhere; I25.5 Ischemic cardiomyopathy; I95.1 Orthostatic hypotension; K21.9 Gastro-esophageal reflux disease without esophagitis; I25.10 Atherosclerotic heart disease of native coronary artery without angina pectoris; K29.70 Gastritis, unspecified, without bleeding; J44.9 Chronic obstructive pulmonary disease, unspecified; G89.4 Chronic pain syndrome; E78.5 Hyperlipidemia, unspecified; I25.2 Old myocardial infarction; M19.91 Primary osteoarthritis, unspecified site; F17.200 Nicotine dependence, unspecified, uncomplicated; M51.16 Intervertebral disc disorders with radiculopathy, lumbar region; K76.0 Fatty (change of) liver, not elsewhere classified; F32.9 Major depressive disorder, single episode, unspecified; Z79.4 Long term (current) use of insulin; Z79.84 Long term (current) use of oral hypoglycemic drugs; Z79.01 Long term (current) use of anticoagulants; Z79.82 Long term (current) use of aspirin; Z79.899 Other long term (current) drug therapy; Z95.5 Presence of coronary angioplasty implant and graft; Z86.718 Personal history of other venous thrombosis and embolism; Z86.711 Personal history of pulmonary embolism; Z86.73 Personal history of transient ischemic attack (TIA), and cerebral infarction without residual deficits; Z95.828 Presence of other vascular implants and grafts; Z83.3 Family history of diabetes mellitus
CPT/HCPCS: 36415; 36569; 76937; 77001; 78315; 80048; 80053; 80202; 83036; 85025; 85027; 85610; 85652; 87040; 87070; 87205; 96361; 96374; 99285

== ENCOUNTER 2017-05-06 19:00 | Emergency (ER) | payer MEDICARE, OTHER ==
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
[2017-05-06] MEDS ORDERED: HYDROmorphone 1 MG/ML 1 ML SYRINGE IM STA (20:54)
[2017-05-06] MEDS ORDERED: ONDANSETRON 4 MG/2 ML VIAL IVP STA (20:54)
[2017-05-06] MEDS ORDERED: ORPHENADRINE 30 MG/ML 2 ML VIAL IVP STA (20:54)
[2017-05-06] MEDS ORDERED: HYDROmorphone 1 MG/ML 1 ML SYRINGE IVP STA (20:54)
[2017-05-06] MEDS ORDERED: oxyCODONE-APAP 5-325MG 1 EACH TAB PO STA (21:27)
--- NOTE | 2017-05-06 21:32 | XR ---
PROCEDURE: XR Hip RT and AP Pelvis DATE AND TIME: 05/06/2017 8:11 PM REFERRING PHYSICIAN: Hamlet Armstrong CLINICAL INDICATION: PHH, Pain TECHNIQUE: 3 views COMPARISON: None FINDINGS: There is no fracture or malalignment. The soft tissues are unremarkable. IMPRESSION: NO ACUTE PROCESS.
--- NOTE | 2017-05-06 21:33 | XR ---
PROCEDURE: XR knee complete RT DATE AND TIME: 05/06/2017 8:15 PM REFERRING PHYSICIAN: Hamlet Armstrong CLINICAL INDICATION: PHH, Pain TECHNIQUE: Department protocol. COMPARISON: None FINDINGS: There is no fracture or malalignment. The soft tissues are unremarkable. IMPRESSION: NO ACUTE PROCESS.
[2017-05-06 21:36] VITALS: BP 100/61; PULSE 84; RESP 18; TEMP 98.3
== END 2017-05-06 21:43 | disposition home or self-care (01) ==
LOC: EC 19:00
DX: S80.01XA Contusion of right knee, initial encounter (principal); M25.551 Pain in right hip; I10 Essential (primary) hypertension; E11.9 Type 2 diabetes mellitus without complications; K21.9 Gastro-esophageal reflux disease without esophagitis; G62.9 Polyneuropathy, unspecified; M19.90 Unspecified osteoarthritis, unspecified site; F32.9 Major depressive disorder, single episode, unspecified; I25.2 Old myocardial infarction; F17.200 Nicotine dependence, unspecified, uncomplicated; Z79.01 Long term (current) use of anticoagulants; Z79.4 Long term (current) use of insulin; Z79.82 Long term (current) use of aspirin; Z79.899 Other long term (current) drug therapy; Z86.73 Personal history of transient ischemic attack (TIA), and cerebral infarction without residual deficits; Z86.718 Personal history of other venous thrombosis and embolism; Z86.711 Personal history of pulmonary embolism; W19.XXXA Unspecified fall, initial encounter; Y93.55 Activity, bike riding
CPT/HCPCS: 99283 ×2; 96374 ×2; 96375 ×3; 73502; 73562; J2360; J2405; J1170

== ENCOUNTER 2017-10-21 17:38 | Inpatient (IN) | payer MEDICARE, OTHER ==
[2017-10-21 18:50] LABS: Basophils # (A) 0.1 k/uL (0-0.2); Basophils % (A) 1 %; Eosinophils # (A) 0.2 k/uL (0-0.7); Eosinophils % (A) 2 %; HCT 41.3 % (34.0-46.0); HGB 14.1 gm/dL (11.4-16.0); Lymphocytes % (A) 23 %; MCHC 34.2 g/dL (31.0-37.0); MCV 81.9 fL (80.0-100.0); Mean Platelet Volume 7.8; Monocytes # (A) 0.5 k/uL (0-1.0); Monocytes % (A) 4 %; Neutrophils # (A) 8.9 k/uL (1.3-7.7); Neutrophils % (A) 69 %; Platelet Count 256 k/uL (150-450); Poikilocytosis Slight; RBC 5.04 m/uL (3.80-5.40); WBC 12.8 k/uL (3.8-10.6)
[2017-10-21] MEDS ORDERED: SODIUM CHLORIDE 0.9% 1,000 ML IV STA ×2 (19:11→20:27)
[2017-10-21 19:12] LABS: Albumin 4.1 g/dL (3.5-5.0); Calcium 10.2 mg/dL (8.4-10.2); Creatine Kinase 39 U/L (30-135); Potassium 3.7 mmol/L (3.5-5.1); Total Bilirubin 0.8 mg/dL (0.2-1.3); Total Protein 7.2 g/dL (6.3-8.2)
[2017-10-21 19:14] LABS: INR 3.6 (<1.2); Partial Thromboplastin Time 34.2 sec (22.0-30.0); Prothrombin Time 32.4 sec (9.0-12.0)
[2017-10-21] MEDS ORDERED: INSULIN REGULAR 100 UNIT/ML VIAL IV STA (19:18)
[2017-10-21] MEDS ORDERED: RX INFO: IV CONTRAST WAS GIVEN 1 EACH MISC MISCELLANE PRN (19:23)
[2017-10-21 19:24] LABS: Creatine Kinase MB 0.4 ng/mL (0.0-2.4); Troponin I <0.012 ng/mL (0.000-0.034)
--- NOTE | 2017-10-21 19:24 | ED ---
General Adult HPI - General Chief complaint: Weakness Stated complaint: Cold & Flu Time Seen by Provider: 10/21/17 18:32 Source: patient, RN notes reviewed Mode of arrival: ambulatory Limitations: no limitations - History of Present Illness Initial comments: 57-year-old comfortably appearing female presents to the emergency department for chief complaint of weakness. Patient states she has felt weak for the past 3-4 weeks. She states that when she walks she feels like she needs to sit down shortly afterwards. Patient denies having fallen or lost consciousness. Patient states she also has abdominal pain and abdominal fullness for the past few weeks. She states she has been having small stools and may be constipated. She denies nausea vomiting or diarrhea. Patient states she has also had a cough for the past week but has not felt feverish. She states the cough is productive. Patient states she is a smoker and has COPD. Patient denies any symptoms of congestion or sore throat. Patient also admits to burning and discomfort with urination. Patient denies chest pain or palpitations. Patient was admitted in August for sepsis due to a ulcer on the right foot. Patient states she still has that ulcer and it was debrided today by wound care. It is currently wrapped. - Related Data Home Medications Medication Instructions Recorded Confirmed Gabapentin 800 mg PO BID 12/14/13 10/21/17 DULoxetine HCL [Cymbalta] 30 mg PO QAM 07/15/14 10/21/17 Ergocalciferol [Vitamin D2 50,000 unit PO [id number] 08/26/15 10/21/17 (DRISDOL)] Insulin Lispro [humaLOG Kwikpen] 15 unit SQ AC-TID 08/26/15 10/21/17 metFORMIN HCL 1,000 mg PO BID 08/26/15 10/21/17 Warfarin [Coumadin] 5 mg PO SUMOWETHSA 12/23/15 10/21/17 Insulin Glargine,Hum.rec.anlog 70 unit SQ DAILY 01/18/17 10/21/17 [Lantus Solostar] Potassium Chloride [K-Tab ER] 10 meq PO BID 03/31/17 10/21/17 HYDROcodone/APAP 10-325MG [[place] 1 tab PO QID PRN 08/07/17 10/21/17 10-325] Aspirin 81 mg PO QAM 10/21/17 10/21/17 Furosemide [Lasix] 10 mg PO Q48H 10/21/17 10/21/17 Medi-Honey Gel 1 applic TOPICAL DAILY PRN 10/21/17 10/21/17 Previous Rx's Medication Instructions Recorded Rosuvastatin [Crestor] 10 mg PO HS #0 10/01/16 Warfarin [Coumadin] 2.5 mg PO TUFR #0 02/28/17 Allergies Allergy/AdvReac Type Severity Reaction Status Date / Time vancomycin Allergy Rash/Hives Verified 10/21/17 18:25 Review of Systems ROS Statement: Those systems with pertinent positive or pertinent negative responses have been documented in the HPI. ROS Other: All systems not noted in ROS Statement are negative. Past Medical History Past Medical History: Coronary Artery Disease (CAD), Chest Pain / Angina, COPD, CVA/TIA, Diabetes Mellitus, Deep Vein Thrombosis (DVT), GERD/Reflux, Hyperlipidemia, Hypertension, Myocardial Infarction (RI), Osteoarthritis (OA), Pulmonary Embolus (PE) Additional Past Medical History / Comment(s): states "b/p and heart rate running low",CVA on 11-16-16-Increased fatigue,SOB with activity,Loss of appetitie,pain in stomach after eating.Mutiple DVT,mesentaric thrombosis x2,hx GENITAL WARTS, neuropathy,pad,chronic pain syndrome,ddd lumbar region w/ radiculopathy, fell jun 2015 tore rt rotator cuff, pancreatitis, uti, non alcoholic fatty liver, poly neuropathy. Last Myocardial Infarction Date:: 2010 History of Any Multi-Drug Resistant Organisms: None Reported Past Surgical History: Section, Heart Catheterization, Heart Catheterization With Stent, Orthopedic Surgery, Tonsillectomy, Tubal Ligation Additional Past Surgical History / Comment(s): 11 Stents in left leg, fistula left thigh, full mouth teeth extraction, TRAPEASE VENA CAVA FILTER, carpel tunnel, heart stents x4 rca and lad, tumor removal from uterus. Genital warts removed, INGRID. Past Anesthesia/Blood Transfusion Reactions: No Reported Reaction Date of Last Stent Placement:: May 2016 Past Psychological History: Depression Smoking Status: Current every day smoker Past Alcohol Use History: None Reported Past Drug Use History: None Reported - Past Family History Mother Family Medical History: Cancer, Congestive Heart Failure (CHF), Diabetes Mellitus, Myocardial Infarction (RI) Additional Family Medical History / Comment(s): Ovarian CA. Mother at age 69. Father Family Medical History: Coronary Artery Disease (CAD), Myocardial Infarction (RI ) Additional Family Medical History / Comment(s): Father at age 70. Sister(s) Family Medical History: Myocardial Infarction (RI) Additional Family Medical History / Comment(s): Patient has one sister with myocardial infarction at age 55. Son(s) Family Medical History: Deep Vein Thrombosis (DVT), Pulmonary Embolus Additional Family Medical History / Comment(s): Patient has 2 sons and one has history of DVT and pulmonary embolism. Patient does not have any daughters. Patient does not have any brothers. General Exam Limitations: no limitations General appearance: alert, in no apparent distress Head exam: Present: atraumatic, normocephalic, normal inspection Eye exam: Present: normal appearance, PERRL, EOMI. Absent: scleral icterus, conjunctival injection, periorbital swelling ENT exam: Present: normal exam, mucous membranes moist, TM's normal bilaterally Neck exam: Present: normal inspection. Absent: tenderness, meningismus, lymphadenopathy Respiratory exam: Present: normal lung sounds bilaterally. Absent: respiratory distress, wheezes, rales, rhonchi, stridor Cardiovascular Exam: Present: regular rate, normal rhythm, normal heart sounds. Absent: systolic murmur, diastolic murmur, rubs, gallop, clicks GI/Abdominal exam: Present: soft, tenderness (Tenderness to the midepigastric area and left upper and lower quadrants.), normal bowel sounds. Absent: distended, guarding, rebound, rigid Extremities exam: Present: other (Venous stasis and stasis dermatitis noted in the left leg. Patient's foot is wrapped in gauze and she states it was debrided earlier today by wound care as she has an ulcer on the first digit.) Back exam: Present: normal inspection Neurological exam: Present: alert, oriented X3, CN II-XII intact Psychiatric exam: Present: normal affect, normal mood Course Vital Signs 10/21/17 10/21/17 10/21/17 17:51 20:41 21:33 Temperature 98.0 F 98.9 F Pulse Rate 102 H 103 H 106 H Respiratory 20 18 16 Rate Blood Pressure 107/70 116/74 91/65 O2 Sat by Pulse 98 96 97 Oximetry 10/21/17 23:00 Temperature 98.3 F Pulse Rate 82 Respiratory 18 Rate Blood Pressure 124/72 O2 Sat by Pulse 97 Oximetry Medical Decision Making - Medical Decision Making 57-year-old female presents to the emergency department for a chief complaint of weakness 3-4 weeks. Patient states she feels like she needs to sit down if she is walking. Patient also states she's had a cough for about a week. She is a smoker and has COPD. The cough is productive. He shouldn't denies fevers at home. Patient also states she is having abdominal pain for about 4 weeks. She states she has been only having small hard stools. Patient was admitted in August for sepsis to an ulcer on the right foot. She saw wound care today for and that was debrided. CBC showed a mildly elevated white count of 12.8 and a neutrophil count of 8.9. Lactic acid was 8.5. This was reordered and it was 6.7. Patient's blood glucose was 571. Acetone negative. Patient was administered 8 units of regular insulin. Patient's blood glucose was noted at 229 about 2 hours later. Chest x-ray was ordered due to patient having a cough for over a week. CT abdomen with contrast was ordered due to patient complaining of abdominal pain for 3-[address] with contrast shows mildly distended stomach other viscera otherwise unremarkable. An unchanged 2 cm right adrenal nodule and unchanged vascular stents are also noted. Chest x- ray shows no acute process. The lungs are clear and cardiac silhouette is not enlarged. Patient was admitted in August of this year for sepsis due to an ulcer on the foot. Patient was given a gram of Rocephin in the emergency department. She was given 2 L of fluid. Lactic was redrawn and was found to be 3.8. Patient will be admitted due to lactic acidosis and weakness, possible sepsis. She'll be given a gram of Rocephin daily. - Lab Data Result diagrams: 10/21/17 18:35 10/21/17 18:35 Lab Results 10/21/17 10/21/17 10/21/17 Range/Units 18:35 18:35 18:35 WBC 12.8 H (3.8-10.6) k/uL RBC 5.04 (3.80-5.40) m/uL Hgb 14.1 (11.4-16.0) gm/dL Hct 41.3 (34.0-46.0) % MCV 81.9 (80.0-100.0) fL MCH 28.0 (25.0-35.0) pg MCHC 34.2 (31.0-37.0) g/dL RDW 15.0 (11.5-15.5) % Plt Count 256 (150-450) k/uL Neutrophils % 69 % Lymphocytes % 23 % Monocytes % 4 % Eosinophils % 2 % Basophils % 1 % Neutrophils # 8.9 H (1.3-7.7) k/uL Lymphocytes # 3.0 (1.0-4.8) k/uL Monocytes # 0.5 (0-1.0) k/uL Eosinophils # 0.2 (0-0.7) k/uL Basophils # 0.1 (0-0.2) k/uL Poikilocytosis Slight PT (9.0-12.0) sec INR (<1.2) APTT (22.0-30.0) sec D-Dimer (<0.60) mg/L FEU Sodium 130 L (137-145) mmol/L Potassium 3.7 (3.5-5.1) mmol/L Chloride 86 L (98-107) mmol/L Carbon Dioxide 24 (22-30) mmol/L Anion Gap 20 mmol/L BUN 13 (7-17) mg/dL Creatinine 1.20 H (0.52-1.04) mg/dL Est GFR (CKD-EPI)AfAm 59 (>60 ml/min/1.73 sqM) Est GFR (CKD-EPI)NonAf 51 (>60 ml/min/1.73 sqM) Glucose 571 H* (74-99) mg/dL POC Glucose (mg/dL) (75-99) mg/dL POC Glu Manager Of Distribution ID Lactic Ac Sepsis Rflx Plasma Lactic Acid [place] (0.7-2.0) mmol/L Calcium 10.2 (8.4-10.2) mg/dL Phosphorus (2.5-4.5) mg/dL Magnesium (1.6-2.3) mg/dL Total Bilirubin 0.8 (0.2-1.3) mg/dL AST 50 H (14-36) U/L ALT 36 (9-52) U/L Alkaline Phosphatase 72 (38-126) U/L Total Creatine Kinase 39 (30-135) U/L CK-MB (CK-2) 0.4 (0.0-2.4) ng/mL CK-MB (CK-2) Rel Index 1.0 Troponin I <0.012 (0.000-0.034) ng/mL Total Protein 7.2 (6.3-8.2) g/dL Albumin 4.1 (3.5-5.0) g/dL Lipase (23-300) U/L Acetone, Qual (Negative) 10/21/17 10/21/17 10/21/17 Range/Units 18:35 18:35 18:35 WBC (3.8-10.6) k/uL RBC (3.80-5.40) m/uL Hgb (11.4-16.0) gm/dL Hct (34.0-46.0) % MCV (80.0-100.0) fL MCH (25.0-35.0) pg MCHC (31.0-37.0) g/dL RDW (11.5-15.5) % Plt Count (150-450) k/uL Neutrophils % % Lymphocytes % % Monocytes % % Eosinophils % % Basophils % % Neutrophils # (1.3-7.7) k/uL Lymphocytes # (1.0-4.8) k/uL Monocytes # (0-1.0) k/uL Eosinophils # (0-0.7) k/uL Basophils # (0-0.2) k/uL Poikilocytosis PT 32.4 H (9.0-12.0) sec INR 3.6 H (<1.2) APTT 34.2 H (22.0-30.0) sec D-Dimer 0.30 (<0.60) mg/L FEU Sodium (137-145) mmol/L Potassium (3.5-5.1) mmol/L Chloride (98-107) mmol/L Carbon Dioxide (22-30) mmol/L Anion Gap mmol/L BUN (7-17) mg/dL Creatinine (0.52-1.04) mg/dL Est GFR (CKD-EPI)AfAm (>60 ml/min/1.73 sqM) Est GFR (CKD-EPI)NonAf (>60 ml/min/1.73 sqM) Glucose (74-99) mg/dL POC Glucose (mg/dL) (75-99) mg/dL POC Glu Manager Of Distribution ID Lactic Ac Sepsis Rflx Plasma Lactic Acid [place] 8.5 H* (0.7-2.0) mmol/L Calcium (8.4-10.2) mg/dL Phosphorus (2.5-4.5) mg/dL Magnesium (1.6-2.3) mg/dL Total Bilirubin (0.2-1.3) mg/dL AST (14-36) U/L ALT (9-52) U/L Alkaline Phosphatase (38-126) U/L Total Creatine Kinase (30-135) U/L CK-MB (CK-2) (0.0-2.4) ng/mL CK-MB (CK-2) Rel Index Troponin I (0.000-0.034) ng/mL Total Protein (6.3-8.2) g/dL Albumin (3.5-5.0) g/dL Lipase (23-300) U/L Acetone, Qual (Negative) 10/21/17 10/21/17 10/21/17 Range/Units 18:35 18:35 18:35 WBC (3.8-10.6) k/uL RBC (3.80-5.40) m/uL Hgb (11.4-16.0) gm/dL Hct (34.0-46.0) % MCV (80.0-100.0) fL MCH (25.0-35.0) pg MCHC (31.0-37.0) g/dL RDW (11.5-15.5) % Plt Count (150-450) k/uL Neutrophils % % Lymphocytes % % Monocytes % % Eosinophils % % Basophils % % Neutrophils # (1.3-7.7) k/uL Lymphocytes # (1.0-4.8) k/uL Monocytes # (0-1.0) k/uL Eosinophils # (0-0.7) k/uL Basophils # (0-0.2) k/uL Poikilocytosis PT (9.0-12.0) sec INR (<1.2) APTT (22.0-30.0) sec D-Dimer (<0.60) mg/L FEU Sodium (137-145) mmol/L Potassium (3.5-5.1) mmol/L Chloride (98-107) mmol/L Carbon Dioxide (22-30) mmol/L Anion Gap mmol/L BUN (7-17) mg/dL Creatinine (0.52-1.04) mg/dL Est GFR (CKD-EPI)AfAm (>60 ml/min/1.73 sqM) Est GFR (CKD-EPI)NonAf (>60 ml/min/1.73 sqM) Glucose (74-99) mg/dL POC Glucose (mg/dL) (75-99) mg/dL POC Glu Manager Of Distribution ID Lactic Ac Sepsis Rflx Plasma Lactic Acid [place] (0.7-2.0) mmol/L Calcium (8.4-10.2) mg/dL Phosphorus 4.4 (2.5-4.5) mg/dL Magnesium 1.7 (1.6-2.3) mg/dL Total Bilirubin (0.2-1.3) mg/dL AST (14-36) U/L ALT (9-52) U/L Alkaline Phosphatase (38-126) U/L Total Creatine Kinase (30-135) U/L CK-MB (CK-2) (0.0-2.4) ng/mL CK-MB (CK-2) Rel Index Troponin I (0.000-0.034) ng/mL Total Protein (6.3-8.2) g/dL Albumin (3.5-5.0) g/dL Lipase 693 H (23-300) U/L Acetone, Qual Negative (Negative) 10/21/17 10/21/17 10/21/17 Range/Units 19:08 19:13 19:32 WBC (3.8-10.6) k/uL RBC (3.80-5.40) m/uL Hgb (11.4-16.0) gm/dL Hct (34.0-46.0) % MCV (80.0-100.0) fL MCH (25.0-35.0) pg MCHC (31.0-37.0) g/dL RDW (11.5-15.5) % Plt Count (150-450) k/uL Neutrophils % % Lymphocytes % % Monocytes % % Eosinophils % % Basophils % % Neutrophils # (1.3-7.7) k/uL Lymphocytes # (1.0-4.8) k/uL Monocytes # (0-1.0) k/uL Eosinophils # (0-0.7) k/uL Basophils # (0-0.2) k/uL Poikilocytosis PT (9.0-12.0) sec INR (<1.2) APTT (22.0-30.0) sec D-Dimer (<0.60) mg/L FEU Sodium (137-145) mmol/L Potassium (3.5-5.1) mmol/L Chloride (98-107) mmol/L Carbon Dioxide (22-30) mmol/L Anion Gap mmol/L BUN (7-17) mg/dL Creatinine (0.52-1.04) mg/dL Est GFR (CKD-EPI)AfAm (>60 ml/min/1.73 sqM) Est GFR (CKD-EPI)NonAf (>60 ml/min/1.73 sqM) Glucose (74-99) mg/dL POC Glucose (mg/dL) 477 H (75-99) mg/dL POC Glu Manager Of Distribution ID [place], Nina Lactic Ac Sepsis Rflx Y Plasma Lactic Acid M[place] 6.7 H* (0.7-2.0) mmol/L Calcium (8.4-10.2) mg/dL Phosphorus (2.5-4.5) mg/dL Magnesium (1.6-2.3) mg/dL Total Bilirubin (0.2-1.3) mg/dL AST (14-36) U/L ALT (9-52) U/L Alkaline Phosphatase (38-126) U/L Total Creatine Kinase (30-135) U/L CK-MB (CK-2) (0.0-2.4) ng/mL CK-MB (CK-2) Rel Index Troponin I (0.000-0.034) ng/mL Total Protein (6.3-8.2) g/dL Albumin (3.5-5.0) g/dL Lipase (23-300) U/L Acetone, Qual (Negative) 03/10/21/17 10/21/17 Range/Units 19:46 21:40 21:42 WBC (3.8-10.6) k/uL RBC (3.80-5.40) m/uL Hgb (11.4-16.0) gm/dL Hct (34.0-46.0) % MCV (80.0-100.0) fL MCH (25.0-35.0) pg MCHC (31.0-37.0) g/dL RDW (11.5-15.5) % Plt Count (150-450) k/uL Neutrophils % % Lymphocytes % % Monocytes % % Eosinophils % % Basophils % % Neutrophils # (1.3-7.7) k/uL Lymphocytes # (1.0-4.8) k/uL Monocytes # (0-1.0) k/uL Eosinophils # (0-0.7) k/uL Basophils # (0-0.2) k/uL Poikilocytosis PT (9.0-12.0) sec INR (<1.2) APTT (22.0-30.0) sec D-Dimer (<0.60) mg/L FEU Sodium (137-145) mmol/L Potassium (3.5-5.1) mmol/L Chloride (98-107) mmol/L Carbon Dioxide (22-30) mmol/L Anion Gap mmol/L BUN (7-17) mg/dL Creatinine (0.52-1.04) mg/dL Est GFR (CKD-EPI)AfAm (>60 ml/min/1.73 sqM) Est GFR (CKD-EPI)NonAf (>60 ml/min/1.73 sqM) Glucose (74-99) mg/dL POC Glucose (mg/dL) 229 H (75-99) mg/dL POC Glu Manager Of Distribution ID [place], Shari Lactic Ac Sepsis Rflx Y Plasma Lactic Acid [place] 3.8 H* (0.7-2.0) mmol/L Calcium (8.4-10.2) mg/dL Phosphorus (2.5-4.5) mg/dL Magnesium (1.6-2.3) mg/dL Total Bilirubin (0.2-1.3) mg/dL AST (14-36) U/L ALT (9-52) U/L Alkaline Phosphatase (38-126) U/L Total Creatine Kinase (30-135) U/L CK-MB (CK-2) (0.0-2.4) ng/mL CK-MB (CK-2) Rel Index Troponin I (0.000-0.034) ng/mL Total Protein (6.3-8.2) g/dL Albumin (3.5-5.0) g/dL Lipase (23-300) U/L Acetone, Qual (Negative) Disposition Clinical Impression: Lactic acidosis, Weakness Disposition: ADMITTED IP TO THIS HOSP Condition: Good Time of Disposition: 20:47
[2017-10-21 19:59] LABS: Glucose,Whole Blood 477 mg/dL (75-99)
[2017-10-21] MEDS ORDERED: cefTRIAXone IN SWFI 1,000 MG/10 ML SYRINGE IVP STA (20:31)
[2017-10-21] MEDS ORDERED: ONDANSETRON 4 MG/2 ML VIAL IVP PRN (20:48)
[2017-10-21] MEDS ORDERED: ACETAMINOPHEN TAB 325 MG TAB PO PRN (20:48)
[2017-10-21] MEDS ORDERED: NALOXONE 0.4 MG/ML 1 ML VIAL IV PRN (20:48)
[2017-10-21 21:00] LABS: Magnesium 1.7 mg/dL (1.6-2.3); Phosphorus 4.4 mg/dL (2.5-4.5)
--- NOTE | 2017-10-21 21:34 | XR ---
EXAMINATION: XR chest 2V DATE AND TIME: 10/21/2017 9:17 PM ORDERING PROVIDER: Rico Gutierrez CLINICAL INDICATION: Weakness TECHNIQUE: PA and lateral COMPARISON: 08/07/2017 DESCRIPTION: The lungs are clear. The pleural spaces are negative. The cardiac silhouette is not enlarged, and the mediastinal and pleural silhouettes are unremarkable. The skeletal structures are intact without focal findings. The soft tissues are unremarkable. IMPRESSION: NO ACUTE PROCESS.
--- NOTE | 2017-10-21 22:00 | CT ---
EXAMINATION TYPE: CT abdomen pelvis w con DATE OF EXAM: 10/21/2017 COMPARISON: 09/29/2016 CT HISTORY: Weakness and nausea and vomiting. CT DLP: 1269.10 mGycm. Automated exposure control for dose reduction was used. TECHNIQUE: Helical acquisition of images was performed from the lung bases through the pelvis. CONTRAST: Performed without Oral Contrast and with IV Contrast, patient injected with 80 mL of [place] que 320. FINDINGS: LUNG BASES: The visualized lung bases and pleural spaces are unremarkable. Coronary calcifications ar e noted. LIVER/GB: No significant abnormality is appreciated. PANCREAS: No significant abnormality is seen. SPLEEN: No significant abnormality is seen. ADRENALS: Unchanged 2.2 cm right adrenal nodule. Left adrenal unremarkable. KIDNEYS: No significant abnormality is seen. PERITONEAL CAVITY: No pneumoperitoneum. No peritoneal fluid. ABDOMINAL ADENOPATHY: None visualized REPRODUCTIVE ORGANS: No significant abnormality is seen URINARY BLADDER: No significant abnormality is seen. PELVIC ADENOPATHY: None visualized. OSSEOUS STRUCTURES: No significant abnormality is seen. BOWEL: Stomach is mildly distended, but the duodenum is collapsed. The small bowel and large bowel i s unremarkable. The appendix is well seen. No significant abnormality is seen. VASCULATURE: Stable appearance; the multiple stents and filters previously seen are redemonstrated, i n addition to collateral vessels in the subcutaneous anterior lower abdominal compartment. IMPRESSION: 1. NONSPECIFIC MILDLY DISTENDED STOMACH; HOLLOW VISCERA IS OTHERWISE UNREMARKABLE. 2. Unchanged 2.2 cm right adrenal nodule. 3. Unchanged vascular stents and vertebral filters.
[2017-10-21 22:01] LABS: Glucose,Whole Blood 229 mg/dL (75-99)
[2017-10-22] MEDS: HYDROcodone/APAP 10-325MG 1 EACH TAB PO SCH ×3 (00:19→08:38)
[2017-10-22] MEDS ORDERED: SODIUM CHLORIDE 0.9% 500 ML IV ONE (00:34)
[2017-10-22] MEDS: INSULIN ASPART 100 UNIT/ML 1 ML 10 ML VIAL SQ SCH ×2 (01:18→06:34)
[2017-10-22] MEDS: SODIUM CHLORIDE 0.9% 1,000 ML IV SCH ×2 (01:18→08:36)
[2017-10-22 01:20] LABS: Glucose,Whole Blood 253 mg/dL (75-99)
[2017-10-22 01:40] VITALS: BMI 31.3
[2017-10-22 04:56] LABS: Appearance,Urine Clear (Clear); Bilirubin,Urine Negative (Negative); Blood,Urine Negative (Negative); Color,Urine Light Yellow; Glucose,Urine (UA) 4+ (Negative); Ketones,Urine Negative (Negative); Leukocyte Esterase,Urine Negative (Negative); Nitrite,Urine Negative (Negative); Protein,Urine Negative (Negative); Specific Gravity,Urine 1.014 (1.001-1.035); Urobilinogen,Urine <2.0 mg/dL (<2.0)
[2017-10-22 06:20] LABS: Glucose,Whole Blood 217 mg/dL (75-99)
[2017-10-22 06:35] LABS: INR 3.7 (<1.2); Prothrombin Time 33.5 sec (9.0-12.0)
[2017-10-22 08:30] LABS: Basophils # (A) 0.1 k/uL (0-0.2); Basophils % (A) 1 %; Eosinophils # (A) 0.3 k/uL (0-0.7); Eosinophils % (A) 3 %; HCT 34.4 % (34.0-46.0); HGB 11.9 gm/dL (11.4-16.0); Lymphocytes # (A) 2.6 k/uL (1.0-4.8); Lymphocytes % (A) 30 %; MCH 28.3 pg (25.0-35.0); MCHC 34.6 g/dL (31.0-37.0); MCV 81.7 fL (80.0-100.0); Monocytes # (A) 0.4 k/uL (0-1.0); Monocytes % (A) 4 %; Neutrophils # (A) 5.3 k/uL (1.3-7.7); Neutrophils % (A) 60 %; Platelet Count 175 k/uL (150-450); RBC 4.22 m/uL (3.80-5.40); RDW 15.1 % (11.5-15.5); WBC 8.7 k/uL (3.8-10.6)
[2017-10-22 09:21] VITALS: BP 108/68; PULSE 69; RESP 18; TEMP 97
[2017-10-22] MEDS ORDERED: MEDI HONEY TOPICAL PRN (09:34)
[2017-10-22] MEDS ORDERED: HYDROcodone/APAP 10-325MG 1 EACH TAB PO PRN (09:34)
[2017-10-22] MEDS ORDERED: LINAGLIPTIN 5 MG TABLET PO SCH (09:45)
[2017-10-22] MEDS ORDERED: DULoxetine HCL 30 MG CAPSULE.DR PO SCH (09:45)
[2017-10-22] MEDS ORDERED: metFORMIN 500 MG TAB PO SCH (09:45)
[2017-10-22] MEDS ORDERED: ASPIRIN 81 MG PO SCH (09:45)
[2017-10-22] MEDS ORDERED: GABAPENTIN 400 MG CAP PO SCH (09:45)
[2017-10-22] MEDS ORDERED: INSULIN DETEMIR 100 UNIT/ML 10 ML VIAL SQ SCH (09:45)
[2017-10-22 09:58] LABS: Calcium 8.9 mg/dL (8.4-10.2); Potassium 3.6 mmol/L (3.5-5.1); Total Bilirubin 0.5 mg/dL (0.2-1.3); Total Protein 5.7 g/dL (6.3-8.2)
[2017-10-22 11:37] LABS: Amylase 42 U/L (30-110); Lipase 392 U/L (23-300)
[2017-10-22] MEDS ORDERED: PIPERACILLIN-TAZOBACTAM 3.375 GM in DEXTROSE/WATER 1 50ML.BAG IVPB SCH (12:00)
[2017-10-22] MEDS ORDERED: INSULIN ASPART 100 UNIT/ML 1 ML 10 ML VIAL SQ SCH (12:30)
[2017-10-22 15:17] LABS: Hemoglobin A1C 10.9 % (4.0-6.0)
--- NOTE | 2017-10-22 15:28 | P.HPIM ---
History of Present Illness H&P Date: 10/22/17 (This document was of both his H&P and discharge summary) This is a 56-year-old female patient of Dr. Balderas with history of CAD , with cardiac stent in May 2016,24/05 ICA, followed by 2 other stents 1 in the LAD in 2011 the other one in the obtuse marginal branch in 2011 as well hypertension and COPD diabetes mellitus type 2, previous multiple DVT and PE requiring chronic anticoagulation followed by Dr. Bill, patient was recently hospitalized at [facility] in 02/28/2017 after she developed to have a significant lightheadedness , neuro workup that was negative including ultrasound of the carotid echocardiogram and EEG along with a computed tomography scan of the brain that showed benign meningioma, seen in March 2017 for early osteomyelitis came back in August 2017 for right great toe ulcer with significant cellulitis and questionable ostiomyelitis present in this time with the increased general weakness for the past 3-4 weeks including nausea vomiting, decreased appetite, increased numbness and burning sensation in the lower extremity worsening in the night, pain in the wrist and the fingers. Patient's son at bedside stated that patient misses her diabetic medication whenever she feels sick. She was having some cough and dyspnea for the past 1 week and was inconsistently taking her diabetic medication. Patient' s blood pressure was 107/70 and admission, afebrile pulse 102, lactic acidosis on admission 8.5, repeat 6.7, acetone were negative. Blood glucose 571 status post 8 units of regular insulin. Patient received 2 L of IV fluid with improvement of lactic acid to 1.8. On evaluation patient did not have any signs of acute infection. She caught wound debridement of her great toe earlier to admission the same day with no sign of cellulitis or concern of infection. Patient is admitted for management of hyperglycemia, concern for sepsis. Repeat labs this morning suggest improvement of glucose to 250. No leukocytosis seen. On examination no sign of infection seen. Patient callus was removed earlier in the wound clinic by was sent with no drainage concerning for any infection. Patient counseled on diabetes control. Initiated on Reglan and Januvia. Patient explained the side effect of Reglan including tics , Parkinson-like symptoms and and instructed to discontinue medication if the symptoms arises. Patient will follow-up with the gang supervisor pipe lines as outpatient. Last HbA1c was 9.1 in August 2017 Review of Systems Constitutional: Denies chills, Denies fever, endorses lethargic, poor appetite Eyes: denies decreased vision, denies diplopia, denies discharge, denies pain Ears: deny: decreased hearing Ears, nose, mouth and throat: Denies dental pain, Denies headache, Denies nasal discharge, Denies nose pain Cardiovascular: Denies chest pain, Denies decreased exercise tolerance, Denies edema, Denies high blood pressure, Denies irregular heart beat, Denies palpitations, Denies paroxysmal nocturnal dyspnea, Denies rapid heart beat, Denies shortness of breath Respiratory: Denies congestion, Denies cough, Denies cough with sputum, Denies dyspnea, Denies home oxygen, Denies wheezing Gastrointestinal: Denies abdominal pain, Denies change in bowel habits, Denies coffee ground emesis, endorses early satiety, Denies excessive gas, Denies heartburn, Denies hematemesis, Denies hematochezia, endorses loss of appetite, endorses nausea, endorses vomiting Genitourinary: Denies dysuria, Denies flank pain, Denies kidney stones, Denies menorrhagia, Denies urgency, Denies urinary frequency Musculoskeletal: Denies gait dysfunction, Denies limitation of motion, Denies morning stiffness, Denies muscle cramps Integumentary: Denies rash, endorses callus formation on right lower extremity Denies brittle nails, Denies change in hair/nails, Denies darkening of skin Neurological: Denies balance difficulties, Denies change in speech, Denies double vision, Denies gait dysfunction, Denies loss of vision, Denies motor disturbance, endorses paresthesias and burning sensation bilateral lower extremity Psychiatric: Denies anxiety, Denies depression Endocrine: Denies excessive sweating, Denies excessive thirst, Denies high blood sugars, Denies palpitations Hematologic/Lymphatic: Denies easy bruising, Denies lymphadenopathy Past Medical History Past Medical History: Coronary Artery Disease (CAD), Chest Pain / Angina, COPD, CVA/TIA, Diabetes Mellitus, Deep Vein Thrombosis (DVT), GERD/Reflux, Hyperlipidemia, Hypertension, Myocardial Infarction ([place]), Osteoarthritis (OA), Pulmonary Embolus (PE) Additional Past Medical History / Comment(s): states "b/p and heart rate running low", CVA on [birth year]19[birth year]-Increased fatigue,SOB with activity,Loss of appetitie,pain in stomach after eating.Mutiple DVT,mesentaric thrombosis x2,hx GENITAL WARTS, neuropathy,pad,chronic pain syndrome,ddd lumbar region w/ radiculopathy, fell jun 2015 tore rt rotator cuff, pancreatitis, uti, non alcoholic fatty liver, poly neuropathy. Last Myocardial Infarction Date:: 2010 History of Any Multi-Drug Resistant Organisms: None Reported Past Surgical History: Section, Heart Catheterization, Heart Catheterization With Stent, Orthopedic Surgery, Tonsillectomy, Tubal Ligation Additional Past Surgical History / Comment(s): 11 Stents in left leg, fistula left thigh, full mouth teeth extraction, TRAPEASE VENA CAVA FILTER, carpel tunnel, heart stents x4 rca and lad, tumor removal from uterus. Genital warts removed, INGRID. Past Anesthesia/Blood Transfusion Reactions: No Reported Reaction Date of Last Stent Placement:: May 2016 Past Psychological History: Depression Additional Psychological History / Comment(s): Depression r/t health issues. Smoking Status: Current every day smoker Past Alcohol Use History: None Reported Additional Past Alcohol Use History / Comment(s): STARTED SMOKING AT AGE 23. smokes 1/2 ppd, still smoking, level depends on what pt is doing - pt states she is trying to quit, smoking cessation information given. Past Drug Use History: None Reported - Past Family History Mother Family Medical History: Cancer, Congestive Heart Failure (CHF), Diabetes Mellitus, Myocardial Infarction ([place]) Additional Family Medical History / Comment(s): Ovarian CA. Mother at age 69. Father Family Medical History: Coronary Artery Disease (CAD), Myocardial Infarction ([place] ) Additional Family Medical History / Comment(s): Father at age 70. Sister(s) Family Medical History: Myocardial Infarction ([place]) Additional Family Medical History / Comment(s): Patient has one sister with myocardial infarction at age 55. Son(s) Family Medical History: Deep Vein Thrombosis (DVT), Pulmonary Embolus Additional Family Medical History / Comment(s): Patient has 2 sons and one has history of DVT and pulmonary embolism. Patient does not have any daughters. Patient does not have any brothers. Medications and Allergies Home Medications Medication Instructions Recorded Confirmed Type Gabapentin 800 mg PO BID 12/14/13 10/21/17 History DULoxetine HCL [Cymbalta] 30 mg PO QAM 07/15/14 10/21/17 History Ergocalciferol [Vitamin D2 50,000 unit PO N85CDNT 08/26/15 10/21/17 History (DRISDOL)] Insulin Lispro [humaLOG Kwikpen] 15 unit SQ AC-TID 08/26/15 10/21/17 History metFORMIN HCL 1,000 mg PO BID 08/26/15 10/21/17 History Warfarin [Coumadin] 5 mg PO SUMOWETHSA 12/23/15 10/21/17 History Rosuvastatin [Crestor] 10 mg PO HS #0 10/01/16 10/21/17 Rx Insulin Glargine,Hum.rec.anlog 70 unit SQ DAILY 01/18/17 10/21/17 History [Lantus Solostar] Warfarin [Coumadin] 2.5 mg PO TUFR #0 02/28/17 10/21/17 Rx Potassium Chloride [K-Tab ER] 10 meq PO BID 03/31/17 10/21/17 History HYDROcodone/APAP 10-325MG [[place] 1 tab PO QID PRN 08/07/17 10/21/17 History 10-325] Aspirin 81 mg PO QAM 10/21/17 10/21/17 History Furosemide [Lasix] 10 mg PO Q48H 10/21/17 10/21/17 History Medi-Honey Gel 1 applic TOPICAL DAILY PRN 10/21/17 10/21/17 History Metoclopramide [Reglan] 10 mg PO TID #90 tab 10/22/17 Rx sitaGLIPtin PHOSPHATE [Januvia] 50 mg PO DAILY #30 tab 10/22/17 Rx Allergies Allergy/AdvReac Type Severity Reaction Status Date / Time vancomycin Allergy Rash/Hives Verified 10/21/17 18:25 Physical Exam Vitals: Vital Signs Temp Pulse Pulse Resp BP BP Pulse Ox 10/22/17 08:30 97.0 F L 69 18 108/68 93 L 10/22/17 04:00 97.2 F L 67 16 106/59 95 10/22/17 03:07 90 16 10/22/17 00:47 98.2 F 90 16 125/80 96 10/21/17 23:00 98.3 F 82 18 124/72 97 10/21/17 21:33 106 H 16 91/65 97 10/21/17 20:41 98.9 F 103 H 18 116/74 96 10/21/17 17:51 98.0 F 102 H 20 107/70 98 Intake and Output 10/22/17 10/22/17 10/22/17 06:59 14:59 22:59 Other: Voiding Method Toilet Toilet # Voids 2 Weight 90.7 kg - Constitutional General appearance: cooperative, no acute distress, obese - EENT Eyes: anicteric sclerae, PERRLA, normal appearance ENT: hearing grossly normal - Neck Neck: no lymphadenopathy, normal ROM, no other, no rigidity, no stridor, no thyromegaly - Respiratory Respiratory: bilateral: CTA, negative: diminished, dullness, rales, rhonchi - Cardiovascular Rhythm: regular Heart sounds: normal: S1, S2 Abnormal Heart Sounds: no systolic murmur, no diastolic murmur, no rub, no S3 Gallop, no S4 Gallop, no click, no other - Gastrointestinal General gastrointestinal: normal bowel sounds, soft - Integumentary Integumentary: Right great toe with healing ulcer, no drainage or inflammation or sign of cellulitis seen - Neurologic Neurologic: CNII-XII intact bilateral lower extremity numbness and decreased sensation - Musculoskeletal Musculoskeletal: gait normal, strength equal bilaterally - Psychiatric Psychiatric: A&O x's 3, appropriate affect Results CBC & Chem 7: 10/22/17 05:49 10/22/17 05:49 Labs: Abnormal Lab Results - Last 24 Hours (Table) 10/21/17 10/21/17 10/21/17 Range/Units 18:35 18:35 18:35 WBC 12.8 H (3.8-10.6) k/uL Neutrophils # 8.9 H (1.3-7.7) k/uL PT (9.0-12.0) sec INR (<1.2) APTT (22.0-30.0) sec Sodium 130 L (137-145) mmol/L Chloride 86 L (98-107) mmol/L Creatinine 1.20 H (0.52-1.04) mg/dL Glucose 571 H* (74-99) mg/dL POC Glucose (mg/dL) (75-99) mg/dL Plasma Lactic Acid Mynor 8.5 H* (0.7-2.0) mmol/L AST 50 H (14-36) U/L Total Protein (6.3-8.2) g/dL Albumin (3.5-5.0) g/dL Lipase (23-300) U/L Urine Glucose (UA) (Negative) 10/21/17 10/21/17 10/21/17 Range/Units 18:35 18:35 19:13 WBC (3.8-10.6) k/uL Neutrophils # (1.3-7.7) k/uL PT 32.4 H (9.0-12.0) sec INR 3.6 H (<1.2) APTT 34.2 H (22.0-30.0) sec Sodium (137-145) mmol/L Chloride (98-107) mmol/L Creatinine (0.52-1.04) mg/dL Glucose (74-99) mg/dL POC Glucose (mg/dL) (75-99) mg/dL Plasma Lactic Acid Mynor 6.7 H* (0.7-2.0) mmol/L AST (14-36) U/L Total Protein (6.3-8.2) g/dL Albumin (3.5-5.0) g/dL Lipase 693 H (23-300) U/L Urine Glucose (UA) (Negative) 10/21/17 10/21/17 10/21/17 Range/Units 19:32 21:40 21:42 WBC (3.8-10.6) k/uL Neutrophils # (1.3-7.7) k/uL PT (9.0-12.0) sec INR (<1.2) APTT (22.0-30.0) sec Sodium (137-145) mmol/L Chloride (98-107) mmol/L Creatinine (0.52-1.04) mg/dL Glucose (74-99) mg/dL POC Glucose (mg/dL) 477 H 229 H (75-99) mg/dL Plasma Lactic Acid Mynor 3.8 H* (0.7-2.0) mmol/L AST (14-36) U/L Total Protein (6.3-8.2) g/dL Albumin (3.5-5.0) g/dL Lipase (23-300) U/L Urine Glucose (UA) (Negative) 10/22/17 10/22/17 10/22/17 Range/Units 01:19 04:45 05:49 WBC (3.8-10.6) k/uL Neutrophils # (1.3-7.7) k/uL PT 33.5 H (9.0-12.0) sec INR 3.7 H (<1.2) APTT (22.0-30.0) sec Sodium (137-145) mmol/L Chloride (98-107) mmol/L Creatinine (0.52-1.04) mg/dL Glucose (74-99) mg/dL POC Glucose (mg/dL) 253 H (75-99) mg/dL Plasma Lactic Acid Mynor (0.7-2.0) mmol/L AST (14-36) U/L Total Protein (6.3-8.2) g/dL Albumin (3.5-5.0) g/dL Lipase (23-300) U/L Urine Glucose (UA) 4+ H (Negative) 10/22/17 10/22/17 10/22/17 Range/Units 05:49 05:49 06:18 WBC (3.8-10.6) k/uL Neutrophils # (1.3-7.7) k/uL PT (9.0-12.0) sec INR (<1.2) APTT (22.0-30.0) sec Sodium (137-145) mmol/L Chloride 97 L (98-107) mmol/L Creatinine (0.52-1.04) mg/dL Glucose 232 H (74-99) mg/dL POC Glucose (mg/dL) 217 H (75-99) mg/dL Plasma Lactic Acid Mynor (0.7-2.0) mmol/L AST (14-36) U/L Total Protein 5.7 L (6.3-8.2) g/dL Albumin 3.0 L (3.5-5.0) g/dL Lipase 392 H (23-300) U/L Urine Glucose (UA) (Negative) Thrombosis Risk Factor Assmnt - DVT/VTE Prophylaxis DVT/VTE Prophylaxis: Pharmacologic Prophylaxis ordered - Choose All That Apply Any of the Below Risk Factors Present?: Yes Each Factor Represents 1 point: Age 41-60 years, Medical pt on bed rest, Obesity (BMI >25) Other Risk Factors: Yes Each Risk Factor Represents 3 Points: Family history of DVT/PE, History of DVT/ PE Other congenital or acquired thrombophilia - If yes, enter type in comment: No Thrombosis Risk Factor Assessment Total Risk Factor Score: 9 Thrombosis Risk Factor Assessment Level: High Risk Assessment and Plan Plan: 1. Lactic acidosis likely secondary to hypovolemia, sepsis ruled out. No foci of infection Right great toe ulcer with no significant cellulitis - continue wound care with Dr. Song 2. Hyperglycemia secondary to noncompliance with complications from Diabetes mellitus type 2. Continue patient on Lantus 70 units at bedtime along with a sliding scale insulin, continue became before each meal and at bedtime. Januvia initiated. Last HbA1c 9.1 in August 2017. Patient given referral for gang supervisor pipe lines. Reglan initiated as patient's nausea and vomiting appears to be related to gastroparesis 3. Neurocardiogenic syncope. Patient was taken off lisinopril as well as metoprolol, monitor the patient very closely for syncopal episode. 4. Coronary artery disease status post multiple PCI with ischemic cardiomyopathy . Patient seen cardiology on regular basis. Continue patient on Lipitor 20 mg orally once every day as well as nitroglycerin as needed along with aspirin 81 mg orally once every day. 5. Hypertension and hypertensive cardiovascular disease. Patient was recently taken off her beta nisa as well as lisinopril because of the orthostatic hypotension. 6. chronic DVT and PEs. Continue patient on Coumadin keep her INR. 2-3. INR is supratherapeutic. Patient instructed to hold Coumadin tonight and get repeat INR in 2-3 days 7. Chronic tobacco use and dependence with COPD. Patient advised about smoking cessation and increased risk of CAD, CVA, and malignancy along with foot amputation. 8. Hyperlipidemia. Continue patient on Lipitor 20 mg orally once every day. 9. Gastritis. Continue patient on Protonix 40 mg orally once every day. 10. Severe PAD under the care of Dr. Villarreal and Dr. Bill, patient underwent PTBA in the past by Dr. Villarreal at the [facility]. 11. Diabetic polyneuropathy. Continue gabapentin 800 mg orally twice every day.
[2017-10-22] MEDS ORDERED: ATORVASTATIN 20 MG TAB PO SCH (21:00)
[2017-10-22] MEDS ORDERED: cefTRIAXone IN SWFI 1,000 MG/10 ML SYRINGE IVP SCH (21:00)
== END 2017-10-22 11:32 | disposition home or self-care (01) | DRG 641 ==
LOC: EC 17:38 → 6SEL 22:48
PROVIDERS: ADMIT Internal Medicine Geriatric Medicine; ATTEND Internal Medicine Geriatric Medicine
DX: E87.2 Acidosis (principal); E86.1 Hypovolemia; E11.42 Type 2 diabetes mellitus with diabetic polyneuropathy; E11.51 Type 2 diabetes mellitus with diabetic peripheral angiopathy without gangrene; E27.8 Other specified disorders of adrenal gland; E11.65 Type 2 diabetes mellitus with hyperglycemia; E78.5 Hyperlipidemia, unspecified; F17.200 Nicotine dependence, unspecified, uncomplicated; F32.9 Major depressive disorder, single episode, unspecified; G89.4 Chronic pain syndrome; I11.9 Hypertensive heart disease without heart failure; I25.10 Atherosclerotic heart disease of native coronary artery without angina pectoris; I25.2 Old myocardial infarction; I25.5 Ischemic cardiomyopathy; J44.9 Chronic obstructive pulmonary disease, unspecified; K21.9 Gastro-esophageal reflux disease without esophagitis; K29.70 Gastritis, unspecified, without bleeding; K76.0 Fatty (change of) liver, not elsewhere classified; R79.1 Abnormal coagulation profile; M19.90 Unspecified osteoarthritis, unspecified site; M51.16 Intervertebral disc disorders with radiculopathy, lumbar region; Z79.01 Long term (current) use of anticoagulants; Z79.4 Long term (current) use of insulin; Z79.82 Long term (current) use of aspirin; Z79.899 Other long term (current) drug therapy; Z88.1 Allergy status to other antibiotic agents; Z95.5 Presence of coronary angioplasty implant and graft; Z91.19 Patient's noncompliance with other medical treatment and regimen; Z86.73 Personal history of transient ischemic attack (TIA), and cerebral infarction without residual deficits; Z86.718 Personal history of other venous thrombosis and embolism; Z86.711 Personal history of pulmonary embolism; Z82.49 Family history of ischemic heart disease and other diseases of the circulatory system
CPT/HCPCS: 36415; 71046; 74177; 80053; 81003; 82009; 82150; 82550; 82553; 83036; 83605; 83690; 83735; 84100; 84484; 85025; 85379; 85610; 85730; 93005; 96361; 96374; 99285

== ENCOUNTER → 2017-11-27 | Outpatient (CLI) | payer MEDICARE, OTHER | END | disposition home or self-care (01) | LOC: LABWHC1 16:57 | PROVIDERS: ATTEND Psychiatry & Neurology Vascular Neurology | DX: R41.9 Unspecified symptoms and signs involving cognitive functions and awareness (principal) | CPT/HCPCS: 36415; 83090; 83921 ==

== ENCOUNTER 2017-12-26 16:58 | Inpatient (IN) | payer MEDICARE, OTHER ==
[2017-12-26] MEDS ORDERED: ACETAMINOPHEN TAB 500 MG TAB PO STA (17:26)
[2017-12-26] MEDS ORDERED: cefTRIAXone IN SWFI 1,000 MG/10 ML SYRINGE IVP STA (17:26)
[2017-12-26] MEDS: SODIUM CHLORIDE 0.9% 500 ML IV SCH ×4 (17:38→23:26)
[2017-12-26 17:43] LABS: Basophils % (A) 0 %; Eosinophils # (A) 0.1 k/uL (0-0.7); Eosinophils % (A) 1 %; HCT 34.7 % (34.0-46.0); Lymphocytes % (A) 8 %; MCH 28.3 pg (25.0-35.0); MCHC 34.6 g/dL (31.0-37.0); MCV 81.7 fL (80.0-100.0); Monocytes # (A) 0.5 k/uL (0-1.0); Monocytes % (A) 4 %; Neutrophils # (A) 11.5 k/uL (1.3-7.7); Neutrophils % (A) 87 %; Platelet Count 204 k/uL (150-450); RBC 4.25 m/uL (3.80-5.40); RDW 15.1 % (11.5-15.5); WBC 13.2 k/uL (3.8-10.6)
[2017-12-26 17:45] LABS: Albumin 3.5 g/dL (3.5-5.0); Calcium 8.7 mg/dL (8.4-10.2); Potassium 3.5 mmol/L (3.5-5.1); Total Bilirubin 0.7 mg/dL (0.2-1.3); Total Protein 6.1 g/dL (6.3-8.2)
[2017-12-26 17:48] LABS: INR 1.8 (<1.2); Partial Thromboplastin Time 26.5 sec (22.0-30.0); Prothrombin Time 16.8 sec (9.0-12.0)
--- NOTE | 2017-12-26 18:05 | CT ---
EXAMINATION TYPE: CT brain wo con DATE OF EXAM: 12/26/2017 COMPARISON: 02/27/2017 HISTORY: Patient unable to verbalize reason for scan. Pain. CT DLP: 889.1 mGycm Automated exposure control for dose reduction was used. FINDINGS: Ventricles and sulci appear normal. There is no mass effect nor midline shift. There is no sign of in tracranial hemorrhage. The calvarium is intact. There is noted a lipoma of the anterior cerebral falx . This measures 1 cm. IMPRESSION: NEGATIVE CT SCAN OF THE BRAIN. NO CHANGE COMPARED TO OLD EXAM.
--- NOTE | 2017-12-26 18:22 | XR ---
EXAMINATION TYPE: XR chest 2V DATE OF EXAM: 12/26/2017 COMPARISON: 10/21/2017 HISTORY: Fever TECHNIQUE: Frontal and lateral views of the chest are obtained. FINDINGS: Heart is normal. Thoracic aorta is atheromatous. Lungs are clear. There is no heart failur e. There are chest leads. IMPRESSION: No active cardiopulmonary disease. No change.
[2017-12-26 19:15] LABS: Appearance,Urine Clear (Clear); Bilirubin,Urine Negative (Negative); Blood,Urine Negative (Negative); Color,Urine Light Yellow; Glucose,Urine (UA) 1+ (Negative); Ketones,Urine Negative (Negative); Leukocyte Esterase,Urine Negative (Negative); Nitrite,Urine Negative (Negative); PH, Urine 5.5 (5.0-8.0); Protein,Urine Negative (Negative); Specific Gravity,Urine 1.007 (1.001-1.035); Urobilinogen,Urine <2.0 mg/dL (<2.0)
[2017-12-26] MEDS ORDERED: SODIUM CHLORIDE 0.9% 1,000 ML IV ONE (19:23)
[2017-12-26 19:24] LABS: Amphetamine Screen,Urine Not Detected (NotDetected); Barbiturate Screen,Urine Not Detected (NotDetected); Benzodiazepines Screen,Urine Not Detected (NotDetected); Cocaine Screen,Urine Not Detected (NotDetected); Methadone Screen, Urine Not Detected (NotDetected); Opiate Screen,Urine Detected (NotDetected); Oxycodone Screen, Urine Not Detected (NotDetected); Phencyclidine Screen,Urine Not Detected (NotDetected); Tricyclic Antidepressant,Urine Not Detected (NotDetected); Urn Cannabinoid Scrn Not Detected (NotDetected)
[2017-12-26] MEDS ORDERED: RX INFO: IV CONTRAST WAS GIVEN 1 EACH MISC MISCELLANE PRN (19:30)
--- NOTE | 2017-12-26 19:30 | ED ---
Syncope HPI - General Chief Complaint: Syncope Stated Complaint: syncope Time Seen by Provider: 12/26/17 17:05 Source: patient, EMS Mode of arrival: EMS Limitations: no limitations - History of Present Illness Initial Comments: 57 years O female comes in with a high fever and chills, shakes, confusion, fever to 4.4 pulse rate 106 and barely stay awake she has a history of for peripheral vascular disease has been seeing Dr. Cervantes and has a history of right groin fold off-and-on for last few weeks. She denies any headaches no neck stiffness no chest pain no shortness of breath mild cough area and she has a chronic wound left lower quadrant pain going on now for quite some [place] she has been investigated she had a scope stunned she had a biopsies done but to this area in the left lower quadrant continues to hurt her. Denies any symptoms of TIA or CVA - Related Data Home Medications Medication Instructions Recorded Confirmed Gabapentin 800 mg PO TID 12/14/13 12/26/17 DULoxetine HCL [Cymbalta] 30 mg PO QAM 07/15/14 12/26/17 Ergocalciferol [Vitamin D2 50,000 unit PO Q14D 08/26/15 12/26/17 (DRISDOL)] Insulin Lispro [humaLOG Kwikpen] 15 unit SQ AC-TID 08/26/15 12/26/17 metFORMIN HCL 1,000 mg PO BID 08/26/15 12/26/17 Insulin Glargine,Hum.rec.anlog 35 unit SQ HS 01/18/17 12/26/17 [Lantus Solostar] Potassium Chloride [K-Tab ER] 10 meq PO BID 03/31/17 12/26/17 HYDROcodone/APAP 10-325MG [[place] 1 tab PO QID PRN 08/07/17 12/26/17 10-325] Aspirin 81 mg PO QAM 10/21/17 12/26/17 Medi-Honey Gel 1 applic TOPICAL DAILY PRN 10/21/17 12/26/17 Moxifloxacin HCl 400 mg PO BID 11/18/17 12/26/17 B12/Levomefolate Calcium/B-6 1 tab PO DAILY 12/02/17 12/26/17 [Foltx Tablet] Furosemide [Lasix] 20 mg PO Q48H 12/26/17 12/26/17 Omeprazole [PriLOSEC] 40 mg PO DAILY 12/26/17 12/26/17 Warfarin Sodium [Coumadin] 5 mg PO SUMOWETHSA 12/26/17 12/26/17 Previous Rx's Medication Instructions Recorded Rosuvastatin [Crestor] 10 mg PO HS #0 10/01/16 Warfarin [Coumadin] 2.5 mg PO TUFR #0 02/28/17 Metoclopramide [Reglan] 10 mg PO TID #90 tab 10/22/17 sitaGLIPtin PHOSPHATE [Januvia] 50 mg PO DAILY #30 tab 10/22/17 Allergies Allergy/AdvReac Type Severity Reaction Status Date / Time vancomycin Allergy Rash/Hives Verified 12/26/17 17:20 Review of Systems ROS Statement: Those systems with pertinent positive or pertinent negative responses have been documented in the HPI. ROS Other: All systems not noted in ROS Statement are negative. Past Medical History Past Medical History: Coronary Artery Disease (CAD), Chest Pain / Angina, COPD, CVA/TIA, Diabetes Mellitus, Deep Vein Thrombosis (DVT), GERD/Reflux, Hyperlipidemia, Hypertension, Myocardial Infarction ([place]), Osteoarthritis (OA), Pulmonary Embolus ([place]) Additional Past Medical History / Comment(s): states "b/p and heart rate running low", CVA on 11-16-16-Increased fatigue,SOB with activity,Loss of appetitie,pain in stomach after eating.Mutiple DVT,mesentaric thrombosis x2,hx GENITAL WARTS, neuropathy,pad,chronic pain syndrome,ddd lumbar region w/ radiculopathy, fell jun 2015 tore rt rotator cuff, pancreatitis, uti, non alcoholic fatty liver, poly neuropathy. Last Myocardial Infarction Date:: 2010 History of Any Multi-Drug Resistant Organisms: None Reported Past Surgical History: Section, Heart Catheterization, Heart Catheterization With Stent, Orthopedic Surgery, Tonsillectomy, Tubal Ligation Additional Past Surgical History / Comment(s): 11 Stents in left leg, fistula left thigh, full mouth teeth extraction, TRAPEASE VENA CAVA FILTER, carpel tunnel, heart stents x4 rca and lad, tumor removal from uterus. Genital warts removed, INGRID. Past Anesthesia/Blood Transfusion Reactions: No Reported Reaction Date of Last Stent Placement:: May 2016 Past Psychological History: Depression, Panic Disorder Smoking Status: Current every day smoker Past Alcohol Use History: None Reported Past Drug Use History: None Reported - Past Family History Mother Family Medical History: Cancer, Congestive Heart Failure (CHF), Diabetes Mellitus, Myocardial Infarction ([place]) Additional Family Medical History / Comment(s): Ovarian CA. Mother at age 69. Father Family Medical History: Coronary Artery Disease (CAD), Myocardial Infarction ([place] ) Additional Family Medical History / Comment(s): Father at age 70. Sister(s) Family Medical History: Myocardial Infarction ([place]) Additional Family Medical History / Comment(s): Patient has one sister with myocardial infarction at age 55. Son(s) Family Medical History: Deep Vein Thrombosis (DVT), Pulmonary Embolus Additional Family Medical History / Comment(s): Patient has 2 sons and one has history of DVT and pulmonary embolism. Patient does not have any daughters. Patient does not have any brothers. General Exam - General Exam Comments Initial Comments: General: The patient is awake and alert, in no distress, and does not appear acutely ill. FALL ASLEEP WHILE TALKING TO me when she wakes up GCS is 15 Skin: Skin is warm and dry and no rashes or lesions are noted. Eye: Pupils are equal, round and reactive to light, extra-ocular movements are intact; there is normal conjunctiva bilaterally. Ears, nose, mouth and throat: There are moist mucous membranes and no oral lesions. Neck: The neck is supple, there is no tenderness or JVD. Cardiovascular: There is a regular rate and rhythm. No murmur, rub or gallop is appreciated. Respiratory: To auscultation bilateral, no wheezing no rhonchi no distress respiratory love noticed Gastrointestinal: She is tender in left lower quadrant area, though it's chronic positive bowel sounds no guarding no rebounds. Back: There is no tenderness to palpation in the midline. There is no obvious deformity. Musculoskeletal: Normal ROM, no tenderness, There is no pedal edema. There is no calf tenderness or swelling. No cords were appreciated. Neurological: CN II-XII intact, Cranial nerves III through XII are intact. There are no obvious motor or sensory deficits. Coordination appears grossly intact. Speech is normal. Psychiatric: Cooperative, appropriate mood & affect, normal judgment. Limitations: no limitations Course Vital Signs 12/26/17 12/26/17 12/26/17 17:06 18:04 18:43 Temperature 104.4 F H 102.5 F H Pulse Rate 106 H 104 H Respiratory 19 18 Rate Blood Pressure 113/73 101/68 O2 Sat by Pulse 96 97 Oximetry 12/26/17 12/26/17 19:06 19:27 Temperature 101.4 F H Pulse Rate 94 Respiratory 18 Rate Blood Pressure 104/56 O2 Sat by Pulse 98 Oximetry EKG Findings - EKG Comments: EKG Findings:: EKG is sinus tachycardia ventricular rate is 1 or 3 FL interval is 140 QRS duration is 86 QT/QTc is 26/427 review of this EKG does not reveal any ST elevation or ST depression Medical Decision Making - Lab Data Result diagrams: 12/26/17 17:13 12/26/17 17:13 Lab Results 12/26/17 12/26/17 12/26/17 Range/Units 17:13 17:13 17:13 WBC 13.2 H (3.8-10.6) k/uL RBC 4.25 (3.80-5.40) m/uL Hgb 12.0 (11.4-16.0) gm/dL Hct 34.7 (34.0-46.0) % MCV 81.7 (80.0-100.0) fL MCH 28.3 (25.0-35.0) pg MCHC 34.6 (31.0-37.0) g/dL RDW 15.1 (11.5-15.5) % Plt Count 204 (150-450) k/uL Neutrophils % 87 % Lymphocytes % 8 % Monocytes % 4 % Eosinophils % 1 % Basophils % 0 % Neutrophils # 11.5 H (1.3-7.7) k/uL Lymphocytes # 1.0 (1.0-4.8) k/uL Monocytes # 0.5 (0-1.0) k/uL Eosinophils # 0.1 (0-0.7) k/uL Basophils # 0.0 (0-0.2) k/uL PT (9.0-12.0) sec INR (<1.2) APTT (22.0-30.0) sec Sodium 134 L (137-145) mmol/L Potassium 3.5 (3.5-5.1) mmol/L Chloride 91 L (98-107) mmol/L Carbon Dioxide 30 (22-30) mmol/L Anion Gap 13 mmol/L BUN 15 (7-17) mg/dL Creatinine 0.93 (0.52-1.04) mg/dL Est GFR (CKD-EPI)AfAm 80 (>60 ml/min/1.73 sqM) Est GFR (CKD-EPI)NonAf 69 (>60 ml/min/1.73 sqM) Glucose 147 H (74-99) mg/dL Plasma Lactic Acid Mynor 2.6 H* (0.7-2.0) mmol/L Calcium 8.7 (8.4-10.2) mg/dL Total Bilirubin 0.7 (0.2-1.3) mg/dL AST 20 (14-36) U/L ALT 30 (9-52) U/L Alkaline Phosphatase 60 (38-126) U/L Troponin I (0.000-0.034) ng/mL Total Protein 6.1 L (6.3-8.2) g/dL Albumin 3.5 (3.5-5.0) g/dL Urine Opiates Screen (NotDetected) Ur Oxycodone Screen (NotDetected) Urine Methadone Screen (NotDetected) Ur Propoxyphene Screen (NotDetected) Ur Barbiturates Screen (NotDetected) U Tricyclic Antidepress (NotDetected) Ur Phencyclidine Scrn (NotDetected) Ur Amphetamines Screen (NotDetected) U Methamphetamines Scrn (NotDetected) U Benzodiazepines Scrn (NotDetected) Urine Cocaine Screen (NotDetected) U Marijuana (THC) Screen (NotDetected) 12/26/17 12/26/17 12/26/17 Range/Units 17:13 17:13 19:06 WBC (3.8-10.6) k/uL RBC (3.80-5.40) m/uL Hgb (11.4-16.0) gm/dL Hct (34.0-46.0) % MCV (80.0-100.0) fL MCH (25.0-35.0) pg MCHC (31.0-37.0) g/dL RDW (11.5-15.5) % Plt Count (150-450) k/uL Neutrophils % % Lymphocytes % % Monocytes % % Eosinophils % % Basophils % % Neutrophils # (1.3-7.7) k/uL Lymphocytes # (1.0-4.8) k/uL Monocytes # (0-1.0) k/uL Eosinophils # (0-0.7) k/uL Basophils # (0-0.2) k/uL PT 16.8 H (9.0-12.0) sec INR 1.8 H (<1.2) APTT 26.5 (22.0-30.0) sec Sodium (137-145) mmol/L Potassium (3.5-5.1) mmol/L Chloride (98-107) mmol/L Carbon Dioxide (22-30) mmol/L Anion Gap mmol/L BUN (7-17) mg/dL Creatinine (0.52-1.04) mg/dL Est GFR (CKD-EPI)AfAm (>60 ml/min/1.73 sqM) Est GFR (CKD-EPI)NonAf (>60 ml/min/1.73 sqM) Glucose (74-99) mg/dL Plasma Lactic Acid Mynor (0.7-2.0) mmol/L Calcium (8.4-10.2) mg/dL Total Bilirubin (0.2-1.3) mg/dL AST (14-36) U/L ALT (9-52) U/L Alkaline Phosphatase (38-126) U/L Troponin I <0.012 (0.000-0.034) ng/mL Total Protein (6.3-8.2) g/dL Albumin (3.5-5.0) g/dL Urine Opiates Screen Detected H (NotDetected) Ur Oxycodone Screen Not Detected (NotDetected) Urine Methadone Screen Not Detected (NotDetected) Ur Propoxyphene Screen Not Detected (NotDetected) Ur Barbiturates Screen Not Detected (NotDetected) U Tricyclic Antidepress Not Detected (NotDetected) Ur Phencyclidine Scrn Not Detected (NotDetected) Ur Amphetamines Screen Not Detected (NotDetected) U Methamphetamines Scrn Not Detected (NotDetected) U Benzodiazepines Scrn Not Detected (NotDetected) Urine Cocaine Screen Not Detected (NotDetected) U Marijuana (THC) Screen Not Detected (NotDetected) Critical Care Time Total Critical Care Time: 45 Critical Care Time: He came in with a fever of 1 4.4 pulse rate of 106 and was with a confusion, his serum multiorgan system affect consistent with the sepsis she was giving out broad-spectrum antibiotics and fluid resuscitation that helped her feel better quite don't have any source at this point chest x-ray is normal head CT is normal troponin is normal INR is 1.8 white count is 13.2 lactate is 2.6 initially I did give her Rocephin 2 g IV wound culture was done from the wound in the right groin area but considering sepsis. Apparently Zosyn and Levaquin. She be admitted to Dr. Addison's service and the Dr. Vu be consulted. After 2 L of fluids and antibiotics she is quite improved, she has a good color mentation has improved Disposition Clinical Impression: Change in mental status, Sepsis, High fever Disposition: ADMITTED IP TO THIS [facility] Condition: Good Referrals: Ramirez Balderas MD [Primary Care Provider] - 1-2 days
[2017-12-26] MEDS ORDERED: LEVOFLOXACIN 500MG-D5W PMX 500 MG in DEXTROSE/WATER 1 100ML.BAG IVPB STA (19:42)
[2017-12-26] MEDS ORDERED: NALOXONE 0.4 MG/ML 1 ML VIAL IV PRN (19:43)
[2017-12-26] MEDS ORDERED: SODIUM CHLORIDE 0.9% 2,000 ML IV ONE (19:50)
--- NOTE | 2017-12-26 20:16 | CT ---
EXAMINATION TYPE: CT abdomen pelvis w con DATE OF EXAM: 12/26/2017 COMPARISON: 10/21/2017 HISTORY: LLQ abd pain and fever. CT DLP: 1471.4 mGycm Automated exposure control for dose reduction was used. TECHNIQUE: Helical acquisition of images was performed from the lung bases through the pelvis. CONTRAST: Performed without Oral Contrast and with IV Contrast, patient injected with 100ml mL of Isovue M300. FINDINGS: There is subsegmental atelectasis at the posterior lung bases. There is no pleural effusion. Heart si ze is normal. There is no pericardial effusion. There is inferior vena cava filter noted. Liver spleen pancreas gallbladder appear normal. Bile ducts are not dilated. There is a 2 cm right low-density adrenal mass. The kidneys show satisfactory contr ast opacification. There is a 1 cm cortical cyst on the lower pole right kidney. There is 1 cm cortic al cyst on the lateral left kidney. There is no hydronephrosis. Ureters are not dilated. There is no retroperitoneal adenopathy. There is no ascites. There is apparent stent in the left iliac vein. I see no intestinal wall thickening. There are no dilated loops. There is no evidence of a bowel obst ruction. Bladder distends smoothly. There is no pelvic mass. The appendix appears normal. I see no fatimah ny destructive process. There are multiple varicose veins in the suprapubic region anteriorly that probably relate to collate ral venous flow due to obstruction of the left iliac vein stent.: IMPRESSION: RENAL CYSTS.. LOW-DENSITY RIGHT ADRENAL MASS IS UNCHANGED COMPARED TO LAST EXAM AND SUGGESTIVE OF MAYANK IGN ETIOLOGY. RIGHT KIDNEY RENAL COLLECTING SYSTEM IS INCREASED SLIGHTLY COMPARED TO OLD EXAM BUT NO STONES SEEN. I DO NOT THINK THERE IS A RENAL OBSTRUCTION. THERE IS NEW BILATERAL MILD SUBSEGMENTAL ATELECTASIS AT THE LUNG BASES. DILATED SUBCUTANEOUS VEINS ANTERIORLY IN THE LOWER ABDOMEN PROBABLY DUE TO COLLATERAL FLOW FROM OCCLU DED LEFT ILIAC VEIN STENT. THE VEINS APPEAR INCREASED IN SIZE COMPARED TO THE LAST CT SCAN OF 10/22/19 18.
[2017-12-26] MEDS ORDERED: INSULIN DETEMIR 100 UNIT/ML 10 ML VIAL SQ SCH (21:00)
[2017-12-26 21:31] LABS: Glucose,Whole Blood 132 mg/dL (75-99)
[2017-12-26] MEDS: ATORVASTATIN 20 MG TAB PO SCH (21:32)
[2017-12-26] MEDS: metFORMIN 500 MG TAB PO SCH (21:32)
[2017-12-26] MEDS: GABAPENTIN 400 MG CAP PO SCH (21:33)
[2017-12-26] MEDS: POTASSIUM CHLORIDE ER 10 MEQ TAB.ER.PRT PO SCH (21:33)
[2017-12-26] MEDS: METOCLOPRAMIDE 10 MG TAB PO SCH (21:33)
[2017-12-26] MEDS: WARFARIN 5 MG TAB PO SCH (21:34)
[2017-12-26] MEDS: SODIUM CHLORIDE 0.9% 1,000 ML IV SCH (21:35)
[2017-12-26] MEDS: HYDROcodone/APAP 10-325MG 1 EACH TAB PO PRN (21:49)
[2017-12-26] MEDS: ACETAMINOPHEN TAB 325 MG TAB PO PRN (23:00)
[2017-12-26] MEDS: PIPERACILLIN-TAZOBACTAM 3.375 GM in DEXTROSE/WATER 1 50ML.BAG IVPB SCH (23:53)
[2017-12-27] MEDS: ACETAMINOPHEN TAB 325 MG TAB PO PRN ×3 (04:56→20:47)
[2017-12-27] MEDS: SODIUM CHLORIDE 0.9% 1,000 ML IV SCH ×2 (04:57→16:04)
[2017-12-27 06:10] LABS: Glucose,Whole Blood 109 mg/dL (75-99)
[2017-12-27] MEDS ORDERED: INSULIN DETEMIR 100 UNIT/ML 10 ML VIAL SQ SCH (06:39)
[2017-12-27] MEDS: PANTOPRAZOLE 40 MG TABLET PO SCH (06:45)
[2017-12-27] MEDS: LINAGLIPTIN 5 MG TABLET PO SCH (07:37)
[2017-12-27] MEDS: LEVOFLOXACIN 500MG-D5W PMX 500 MG in DEXTROSE/WATER 1 100ML.BAG IVPB SCH (07:37)
[2017-12-27] MEDS: GABAPENTIN 400 MG CAP PO SCH ×3 (07:37→21:19)
[2017-12-27] MEDS: FUROSEMIDE 20 MG TAB PO SCH (07:38)
[2017-12-27] MEDS: DULoxetine HCL 30 MG CAPSULE.DR PO SCH (07:38)
[2017-12-27] MEDS: CYANOCOBALAMIN-FA-PYRIDOXINE 1 EACH TAB PO SCH (07:38)
[2017-12-27] MEDS: ASPIRIN 81 MG PO SCH (07:38)
[2017-12-27] MEDS: METOCLOPRAMIDE 10 MG TAB PO SCH ×3 (07:39→20:47)
[2017-12-27] MEDS: POTASSIUM CHLORIDE ER 10 MEQ TAB.ER.PRT PO SCH ×2 (07:39→20:47)
[2017-12-27] MEDS: metFORMIN 500 MG TAB PO SCH ×2 (07:39→20:47)
[2017-12-27] MEDS: PIPERACILLIN-TAZOBACTAM 3.375 GM in DEXTROSE/WATER 1 50ML.BAG IVPB SCH ×2 (08:59→16:01)
[2017-12-27 10:35] VITALS: BMI 28.8
--- NOTE | 2017-12-27 10:55 | US ---
EXAMINATION TYPE: US groin RT DATE OF EXAM: 12/27/2017 COMPARISON: NONE CLINICAL HISTORY: abscess, hx pseudoaneurysm. No recent heart catheterization. No recent groin surgeries. Patient states she has a large mass in her groin and it "popped". There is a cluster of lymph nodes noted, larges measuring 1.5cm. No fluid collection or mass identified. There is a report of a prior pseudoaneurysm which is not evident at this time. IMPRESSION: 1. Multiple lymph nodes present within the right groin region. 2. No vascular anomaly evident.
--- NOTE | 2017-12-27 11:08 | P.HPIM ---
History of Present Illness H&P Date: 12/27/17 This is a 57-year-old female patient of Dr. Balderas with history of CAD , with cardiac stent in May 2016,24/05 ICA, followed by 2 other stents 1 in the LAD in 2011 the other one in the obtuse marginal branch in 2011 as well hypertension and COPD diabetes mellitus type 2, previous multiple DVT and PE requiring chronic anticoagulation followed by Dr. Bill, patient was recently hospitalized at [facility] in 02/28/2017 after she developed to have a significant lightheadedness , neuro workup that was negative including ultrasound of the carotid echocardiogram and EEG along with a computed tomography scan of the brain that showed benign meningioma, seen in March 2017 for early osteomyelitis came back in August 2017 for right great toe ulcer with significant cellulitis and questionable ostiomyelitis present. Has been following Dr. Noel and the wound healing Center and her last appointment was on December 23 and she underwent debridement at that time. Local wound care is medih[facility] and she was to return in 3 weeks. Patient states that she had sudden onset of symptoms yesterday. She was out working in the yard and was feeling fine but all of a sudden started feeling shaky and feeling bad in general she had some confusions and chills and was very drowsy and having difficulty staying awake. Patient does have an abscess to her right groin which she states has been very large and draining on its own. Patient presented to [facility] emergency center with a temperature of 104.4, heart rate 106,, blood sugar was 147. Initial lactic acid 2.6 and repeat was 1.6. Urinalysis was clear nitrate and leukoesterase negative. INR is 1.8. Troponin 0.012. Urine drug screen was positive for opiates. CAT scan of the brain was negative. Chest x-ray showed no acute cardio pulmonary disease. CT of the abdomen and pelvis with contrast revealed renal cyst. Low-density right adrenal mass is unchanged and suggestive benign etiology. Right kidney renal collecting system is increased slightly compared to old exam. No stones do not believe there is a renal obstruction. New bilateral mild subsegmental atelectasis at the lung bases. Dilated subcutaneous veins anteriorly in the lower abdomen probably due to collateral lateral flow from occluded left iliac vein stent the veins appear increased in size compared to last CT of March 19. The right groin abscess was apparently drained in the emergency center as it was described as being quite large at that time and is now about 2 x 2 cm. Patient was given Levaquin and ceftriaxone and 2 L of IV fluid and admitted to the selective care unit where there is a consult in place with Dr. Vu for sepsis. Urine blood and wound cultures have been obtained. Review of Systems All systems: negative Constitutional: Reports fatigue, Reports lethargy, Reports malaise, Reports poor appetite, Reports weakness, Denies chills, Denies fever Eyes: denies blurred vision, denies pain Ears, nose, mouth and throat: Denies headache, Denies sore throat Cardiovascular: Denies chest pain, Denies decreased exercise tolerance, Denies dyspnea on exertion, Denies edema, Denies leg edema, Denies shortness of breath , Denies syncope Respiratory: Denies cough, Denies cough with sputum, Denies dyspnea, Denies excessive sputum, Denies hemoptysis, Denies home oxygen, Denies wheezing Gastrointestinal: Denies abdominal pain, Denies diarrhea, Denies loss of appetite, Denies nausea, Denies vomiting Genitourinary: Denies dysuria, Denies hematuria, Denies urinary frequency Musculoskeletal: Denies myalgias Integumentary: Reports wounds, Denies pruritus, Denies rash Neurological: Reports confusion, Denies numbness, Denies weakness Psychiatric: Denies anxiety, Denies depression Endocrine: Denies fatigue, Denies weight change Past Medical History Past Medical History: Coronary Artery Disease (CAD), Cancer, Chest Pain / Angina , COPD, CVA/TIA, Diabetes Mellitus, Deep Vein Thrombosis (DVT), GERD/Reflux, Hyperlipidemia, Hypertension, Myocardial Infarction (TN), Osteoarthritis (OA), Pulmonary Embolus (PE) Additional Past Medical History / Comment(s): states "b/p and heart rate running low", CVA on 11-16-16-Increased fatigue,SOB with activity,Loss of appetitie,pain in stomach after eating.Mutiple DVT,mesentaric thrombosis x2,hx GENITAL WARTS, neuropathy,pad,chronic pain syndrome,ddd lumbar region w/ radiculopathy, fell jun 2015 tore rt rotator cuff, pancreatitis, uti, non alcoholic fatty liver, skin cancer removed from neck.poly neuropathy wound rt great toe -goes to the [facility] on mondays. t toe Last Myocardial Infarction Date:: 2010 History of Any Multi-Drug Resistant Organisms: None Reported Past Surgical History: Section, Heart Catheterization, Heart Catheterization With Stent, Orthopedic Surgery, Tonsillectomy, Tubal Ligation Additional Past Surgical History / Comment(s): 11 Stents in left leg, fistula left thigh, full mouth teeth extraction, TRAPEASE VENA CAVA FILTER, carpel tunnel, heart stents x4 rca and lad, tumor removal from uterus. Genital warts removed, INGRID.skin cancer removed from neck Past Anesthesia/Blood Transfusion Reactions: No Reported Reaction Date of Last Stent Placement:: May 2016 Smoking Status: Current every day smoker Additional Past Alcohol Use History / Comment(s): Patient started smoking at age 23. She currently smokes half a pack per day and is still an active smoker. - Past Family History Mother Family Medical History: Cancer, Congestive Heart Failure (CHF), Diabetes Mellitus, Myocardial Infarction (TN) Additional Family Medical History / Comment(s): Ovarian CA. Mother at age 69. Father Family Medical History: Coronary Artery Disease (CAD), Myocardial Infarction (TN ) Additional Family Medical History / Comment(s): Father at age 70. Sister(s) Family Medical History: Myocardial Infarction (TN) Additional Family Medical History / Comment(s): Patient has one sister with myocardial infarction at age 55. Son(s) Family Medical History: Deep Vein Thrombosis (DVT), Pulmonary Embolus Additional Family Medical History / Comment(s): Patient has 2 sons and one has history of DVT and pulmonary embolism. Patient does not have any daughters. Patient does not have any brothers. Medications and Allergies Home Medications Medication Instructions Recorded Confirmed Type Gabapentin 800 mg PO BID 12/14/13 12/26/17 History DULoxetine HCL [Cymbalta] 30 mg PO QAM 07/15/14 12/26/17 History Ergocalciferol [Vitamin D2 50,000 unit PO Q14D 08/26/15 12/26/17 History (ISDOL)] Insulin Lispro [humaLOG Kwikpen] 15 unit SQ AC-TID 08/26/15 12/26/17 History metFORMIN HCL 1,000 mg PO BID 08/26/15 12/26/17 History Rosuvastatin [Crestor] 10 mg PO HS #0 10/01/16 12/26/17 Rx Insulin Glargine,Hum.rec.anlog 40 unit SQ HS 01/18/17 12/26/17 History [Lantus Solostar] Warfarin [Coumadin] 2.5 mg PO TUFR #0 02/28/17 12/26/17 Rx Potassium Chloride [K-Tab ER] 10 meq PO BID 03/31/17 12/26/17 History HYDROcodone/APAP 10-325MG [[place] 1 tab PO QID PRN 08/07/17 12/26/17 History 10-325] Aspirin 81 mg PO QAM 10/21/17 12/26/17 History Metoclopramide [Reglan] 10 mg PO TID #90 tab 10/22/17 12/26/17 Rx sitaGLIPtin PHOSPHATE [Januvia] 50 mg PO DAILY #30 tab 10/22/17 12/26/17 Rx Moxifloxacin HCl 400 mg PO BID 11/18/17 12/26/17 History B12/Levomefolate Calcium/B-6 1 tab PO DAILY 12/02/17 12/26/17 History [Foltx Tablet] Furosemide [Lasix] 10 mg PO Q48H 12/26/17 12/26/17 History Warfarin Sodium [Coumadin] 5 mg PO SUMOWETHSA 12/26/17 12/26/17 History Allergies Allergy/AdvReac Type Severity Reaction Status Date / Time vancomycin Allergy Rash/Hives Verified 12/26/17 17:20 Physical Exam Vitals: Vital Signs Temp Pulse Pulse Resp BP BP Pulse Ox 12/27/17 07:44 90 17 12/27/17 07:35 101 F H 90 17 99/55 96 12/27/17 04:00 102.8 F H 87 17 123/59 95 12/27/17 00:00 101.1 F H 82 16 99/56 95 12/26/17 20:50 98.2 F 81 18 129/61 94 L 12/26/17 20:02 100.0 F H 77 18 101/60 99 12/26/17 19:27 101.4 F H 12/26/17 19:06 94 18 104/56 98 12/26/17 18:43 102.5 F H 12/26/17 18:04 104 H 18 101/68 97 12/26/17 17:06 104.4 F H 106 H 19 113/73 96 Intake and Output 12/26/17 12/27/17 12/27/17 22:59 06:59 14:59 Intake Total 600 120 Balance 600 120 Intake: IV 600 Sodium Chloride 0.9% 1, 600 000 ml @ 100 mls/hr IV . Q10H [facility] Rx#:[id number] Oral 120 Other: Voiding Method Bedpan Bedpan # Voids 1 1 Weight 90.718 kg 83.5 kg General appearance: cooperative, no acute distress, obese - EENT Eyes: anicteric sclerae, PERRLA, normal appearance ENT: hearing grossly normal - Neck Neck: no lymphadenopathy, normal ROM, no other, no rigidity, no stridor, no thyromegaly - Respiratory Respiratory: bilateral: CTA, negative: diminished, dullness, rales, rhonchi - Cardiovascular Rhythm: regular Heart sounds: normal: S1, S2 Abnormal Heart Sounds: no systolic murmur, no diastolic murmur, no rub, no S3 Gallop, no S4 Gallop, no click, no other - Gastrointestinal General gastrointestinal: normal bowel sounds, soft - Integumentary Integumentary: Right great toe with healing ulcer, no significant drainage or erythema. There is a small abscess in the right groin. - Neurologic Neurologic: CNII-XII intact bilateral lower extremity numbness and decreased sensation - Musculoskeletal Musculoskeletal: gait normal, strength equal bilaterally - Psychiatric Psychiatric: A&O x's 3, appropriate affect Results CBC & Chem 7: 12/26/17 17:13 12/26/17 17:13 Labs: Abnormal Lab Results - Last 24 Hours (Table) 12/26/17 12/26/17 12/26/17 Range/Units 17:13 17:13 17:13 WBC 13.2 H (3.8-10.6) k/uL Neutrophils # 11.5 H (1.3-7.7) k/uL PT (9.0-12.0) sec INR (<1.2) Sodium 134 L (137-145) mmol/L Chloride 91 L (98-107) mmol/L Glucose 147 H (74-99) mg/dL POC Glucose (mg/dL) (75-99) mg/dL Plasma Lactic Acid Mynor 2.6 H* (0.7-2.0) mmol/L Total Protein 6.1 L (6.3-8.2) g/dL Urine Glucose (UA) (Negative) Urine Opiates Screen (NotDetected) 12/26/17 12/26/17 12/26/17 Range/Units 17:13 19:06 19:06 WBC (3.8-10.6) k/uL Neutrophils # (1.3-7.7) k/uL PT 16.8 H (9.0-12.0) sec INR 1.8 H (<1.2) Sodium (137-145) mmol/L Chloride (98-107) mmol/L Glucose (74-99) mg/dL POC Glucose (mg/dL) (75-99) mg/dL Plasma Lactic Acid Mynor (0.7-2.0) mmol/L Total Protein (6.3-8.2) g/dL Urine Glucose (UA) 1+ H (Negative) Urine Opiates Screen Detected H (NotDetected) 12/26/17 12/27/17 Range/Units 21:26 06:08 WBC (3.8-10.6) k/uL Neutrophils # (1.3-7.7) k/uL PT (9.0-12.0) sec INR (<1.2) Sodium (137-145) mmol/L Chloride (98-107) mmol/L Glucose (74-99) mg/dL POC Glucose (mg/dL) 132 H 109 H (75-99) mg/dL Plasma Lactic Acid Mynor (0.7-2.0) mmol/L Total Protein (6.3-8.2) g/dL Urine Glucose (UA) (Negative) Urine Opiates Screen (NotDetected) Microbiology - Last 24 Hours (Table) 12/26/17 19:20 Gram Stain - Preliminary Groin Wound Culture - Preliminary 12/26/17 19:06 Urine Culture - Preliminary Urine,Voided Thrombosis Risk Factor Assmnt - DVT/VTE Prophylaxis DVT/VTE Prophylaxis: Pharmacologic Prophylaxis ordered Assessment and Plan Plan: 1. Sepsis with lactic acidosis, metabolic encephalopathy of unclear etiology but most likely due to right groin abscess. Patient is currently on Levaquin and Zosyn. Consult with Dr. Vu. Wound culture, blood culture and urine culture are obtained. Patient is status post 2 L of IV fluid. Ultrasound of the right groin ordered 2. Diabetes mellitus type 2 with recent hemoglobin A1c of 10.9. Continue Levemir 40 units at bedtime, NovoLog 15 units with meals and scale before meals and at bedtime, try gentle for Januvia. Hemoglobin A1c rechecked. 3. Coronary artery disease status post multiple PCI with ischemic cardiomyopathy . Patient seen cardiology on regular basis. Continue patient on Crestor, aspirin 81 mg daily. orally once every day as well as nitroglycerin as needed along with aspirin 81 mg orally once every day. 4. Hypertension and hypertensive cardiovascular disease. Continue Lasix 10 mg every 48 hours. Patient has been recently taken off beta nisa due to hypotension. 5. Chronic DVT and PEs. Continue patient on Coumadin keep her INR. 2-3. INR is subtherapeutic. 6. Chronic tobacco use and dependence with COPD. smoking cessation. Nicotine patch 7. Hyperlipidemia. Continue patient on Lipitor 20 mg orally once every day. 8. Gastritis. Continue patient on Protonix 40 mg orally once every day. 9. Severe PAD under the care of Dr. Villarreal and Dr. Bill, patient underwent PTBA in the past by Dr. Villarreal at the [facility]. 10. Chronic diabetic ulcer to the right great toe. Patient follows in the wound healing Center under the care of Dr. Noel. 11. Diabetic polyneuropathy. Continue gabapentin 800 mg orally twice every day. 12. DVT prophylaxis. Coumadin 13. GI prophylaxis. Pepcid. 14. Recurrent depression. Continue Cymbalta 30 mg daily Patient will be admitted to the hospital for a minimum of 2 night stay Impression and plan of care have been directed as dictated by the signing physician. Kerri Kevin nurse practitioner acting as scribe for signing physician.
--- NOTE | 2017-12-27 11:19 | P.CONS ---
History of Present Illness - Reason for Consult Consult date: 12/27/17 Sepsis - History of Present Illness This is a 56-year-old female patient well-known to ID service as she has been a patient in the wound healing center for diabetic foot ulceration on the right great toe and underwent treatment with IV antibiotics and has been on and off for several years. She also has a vascular doctor in [place], Dr. Villarreal.Has been following Dr. Noel and the wound healing Center and her last appointment was on December 23 and she underwent debridement at that time. Local wound care is medihoney and she was to return in 3 weeks. Patient states that she had sudden onset of symptoms yesterday. She was out working in the yard and was feeling fine but all of a sudden started feeling shaky and feeling bad in general she had some confusions and chills and was very drowsy and having difficulty staying awake. Patient does have an abscess to her right groin which she states has been very large and draining on its own. Patient presented to [facility] emergency center with a temperature of 104.4, heart rate 106,, blood sugar was 147. Initial lactic acid 2.6 and repeat was 1.6. Urinalysis was clear nitrate and leukoesterase negative. INR is 1.8. Troponin 0.012. Urine drug screen was positive for opiates. CAT scan of the brain was negative. Chest x-ray showed no acute cardio pulmonary disease. CT of the abdomen and pelvis with contrast revealed renal cyst. Low-density right adrenal mass is unchanged and suggestive benign etiology. Right kidney renal collecting system is increased slightly compared to old exam. No stones do not believe there is a renal obstruction. New bilateral mild subsegmental atelectasis at the lung bases. Dilated subcutaneous veins anteriorly in the lower abdomen probably due to collateral lateral flow from occluded left iliac vein stent the veins appear increased in size compared to last CT of October 21. The right groin abscess was apparently drained in the emergency center as it was described as being quite large at that time and is now about 2 x 2 cm. Patient was given Levaquin and ceftriaxone and 2 L of IV fluid and admitted to the selective care unit. Patient is currently on IV antibiotics the form of Levaquin and Zosyn.. Urine, blood and wound cultures have been obtained. Review of Systems All systems: negative Constitutional: Reports chills, Reports fatigue, Reports fever, Reports lethargy , Reports malaise, Reports poor appetite, Reports weakness Eyes: denies blurred vision, denies pain Ears, nose, mouth and throat: Denies headache, Denies sore throat Cardiovascular: Denies chest pain, Denies decreased exercise tolerance, Denies dyspnea on exertion, Denies edema, Denies leg edema, Denies shortness of breath Respiratory: Denies cough, Denies cough with sputum, Denies dyspnea, Denies excessive sputum, Denies hemoptysis, Denies home oxygen, Denies wheezing Gastrointestinal: Denies abdominal pain, Denies diarrhea, Denies nausea, Denies vomiting Genitourinary: Denies dysuria, Denies hematuria, Denies urgency, Denies urinary frequency Musculoskeletal: Denies myalgias Integumentary: Reports wounds, Denies pruritus, Denies rash Neurological: Reports confusion, Denies numbness, Denies weakness Psychiatric: Denies anxiety, Denies depression Endocrine: Denies fatigue, Denies weight change Past Medical History Past Medical History: Coronary Artery Disease (CAD), Cancer, Chest Pain / Angina , COPD, CVA/TIA, Diabetes Mellitus, Deep Vein Thrombosis (DVT), GERD/Reflux, Hyperlipidemia, Hypertension, Myocardial Infarction (CT), Osteoarthritis (OA), Pulmonary Embolus (PE) Additional Past Medical History / Comment(s): states "b/p and heart rate running low", CVA on 11-16-16-Increased fatigue,SOB with activity,Loss of appetitie,pain in stomach after eating.Mutiple DVT,mesentaric thrombosis x2,hx GENITAL WARTS, neuropathy,pad,chronic pain syndrome,ddd lumbar region w/ radiculopathy, fell jun 2015 tore rt rotator cuff, pancreatitis, uti, non alcoholic fatty liver, skin cancer removed from neck.poly neuropathy wound rt great toe -goes to the [facility] on mondays. t toe Last Myocardial Infarction Date:: 2010 History of Any Multi-Drug Resistant Organisms: None Reported Past Surgical History: Section, Heart Catheterization, Heart Catheterization With Stent, Orthopedic Surgery, Tonsillectomy, Tubal Ligation Additional Past Surgical History / Comment(s): 11 Stents in left leg, fistula left thigh, full mouth teeth extraction, TRAPEASE VENA CAVA FILTER, carpel tunnel, heart stents x4 rca and lad, tumor removal from uterus. Genital warts removed, INGRID.skin cancer removed from neck Past Anesthesia/Blood Transfusion Reactions: No Reported Reaction Date of Last Stent Placement:: May 2016 Smoking Status: Current every day smoker Additional Past Alcohol Use History / Comment(s): Patient started smoking at age 23. She currently smokes half a pack per day and is still an active smoker. - Past Family History Mother Family Medical History: Cancer, Congestive Heart Failure (CHF), Diabetes Mellitus, Myocardial Infarction (CT) Additional Family Medical History / Comment(s): Ovarian CA. Mother at age 69. Father Family Medical History: Coronary Artery Disease (CAD), Myocardial Infarction (CT ) Additional Family Medical History / Comment(s): Father at age 70. Sister(s) Family Medical History: Myocardial Infarction (CT) Additional Family Medical History / Comment(s): Patient has one sister with myocardial infarction at age 55. Son(s) Family Medical History: Deep Vein Thrombosis (DVT), Pulmonary Embolus Additional Family Medical History / Comment(s): Patient has 2 sons and one has history of DVT and pulmonary embolism. Patient does not have any daughters. Patient does not have any brothers. Medications and Allergies Home Medications Medication Instructions Recorded Confirmed Type Gabapentin 800 mg PO BID 12/14/13 12/26/17 History DULoxetine HCL [Cymbalta] 30 mg PO QAM 07/15/14 12/26/17 History Ergocalciferol [Vitamin D2 50,000 unit PO Q14D 08/26/15 12/26/17 History (DRISDOL)] Insulin Lispro [humaLOG Kwikpen] 15 unit SQ AC-TID 08/26/15 12/26/17 History metFORMIN HCL 1,000 mg PO BID 08/26/15 12/26/17 History Rosuvastatin [Crestor] 10 mg PO HS #0 10/01/16 12/26/17 Rx Insulin Glargine,Hum.rec.anlog 40 unit SQ HS 01/18/17 12/26/17 History [Lantus Solostar] Warfarin [Coumadin] 2.5 mg PO TUFR #0 02/28/17 12/26/17 Rx Potassium Chloride [K-Tab ER] 10 meq PO BID 03/31/17 12/26/17 History HYDROcodone/APAP 10-325MG [Hollister 1 tab PO QID PRN 08/07/17 12/26/17 History 10-325] Aspirin 81 mg PO QAM 10/21/17 12/26/17 History Metoclopramide [Reglan] 10 mg PO TID #90 tab 10/22/17 12/26/17 Rx sitaGLIPtin PHOSPHATE [Januvia] 50 mg PO DAILY #30 tab 10/22/17 12/26/17 Rx Moxifloxacin HCl 400 mg PO BID 11/18/17 12/26/17 History B12/Levomefolate Calcium/B-6 1 tab PO DAILY 12/02/17 12/26/17 History [Foltx Tablet] Furosemide [Lasix] 10 mg PO Q48H 12/26/17 12/26/17 History Warfarin Sodium [Coumadin] 5 mg PO SUMOWETHSA 12/26/17 12/26/17 History Allergies Allergy/AdvReac Type Severity Reaction Status Date / Time vancomycin Allergy Rash/Hives Verified 12/26/17 17:20 Physical Exam Vitals: Vital Signs Temp Pulse Pulse Resp BP BP Pulse Ox 12/27/17 07:44 90 17 12/27/17 07:35 101 F H 90 17 99/55 96 12/27/17 04:00 102.8 F H 87 17 123/59 95 12/27/17 00:00 101.1 F H 82 16 99/56 95 12/26/17 20:50 98.2 F 81 18 129/61 94 L 12/26/17 20:02 100.0 F H 77 18 101/60 99 12/26/17 19:27 101.4 F H 12/26/17 19:06 94 18 104/56 98 12/26/17 18:43 102.5 F H 12/26/17 18:04 104 H 18 101/68 97 12/26/17 17:06 104.4 F H 106 H 19 113/73 96 Intake and Output 12/26/17 12/27/17 12/27/17 22:59 06:59 14:59 Intake Total 600 120 Balance 600 120 Intake: IV 600 Sodium Chloride 0.9% 1, 600 000 ml @ 100 mls/hr IV . Q10H AGNES Rx#:[id number] Oral 120 Other: Voiding Method Bedpan Bedpan # Voids 1 1 Weight 90.718 kg 83.5 kg Gen: This is a 57-year-old female patient sitting up in bed appears to be comfortable and in no acute distress. HEENT: Head is atraumatic, normocephalic. Pupils equal, round. Sclerae is anicteric. NECK: Supple. No JVD. No lymphadenopathy. No thyromegaly. LUNGS: Clear to auscultation. No wheezes or rhonchi. No intercostal retractions. HEART: Regular rate and rhythm. No murmur. ABDOMEN: Soft. Bowel sounds are present. No masses. No tenderness. EXTREMITIES: No pedal edema. No calf tenderness. Right groin mass updated. There is a chronic diabetic ulcer to the right great toe plantar surface with minimal drainage. No significant erythema. NEUROLOGICAL: Patient is awake, alert and oriented x3. Cranial nerves 2 through 12 are grossly intact. Results Results: Laboratory Results WBC 13.2 k/uL (3.8-10.6) H 12/26/17 17:13 RBC 4.25 m/uL (3.80-5.40) 12/26/17 17:13 Hgb 12.0 gm/dL (11.4-16.0) 12/26/17 17:13 Hct 34.7 % (34.0-46.0) 12/26/17 17:13 MCV 81.7 fL (80.0-100.0) 12/26/17 17:13 MCH 28.3 pg (25.0-35.0) 12/26/17 17:13 MCHC 34.6 g/dL (31.0-37.0) 12/26/17 17:13 RDW 15.1 % (11.5-15.5) 12/26/17 17:13 Plt Count 204 k/uL (150-450) 12/26/17 17:13 Neutrophils % 87 % 12/26/17 17:13 Lymphocytes % 8 % 12/26/17 17:13 Monocytes % 4 % 12/26/17 17:13 Eosinophils % 1 % 12/26/17 17:13 Basophils % 0 % 12/26/17 17:13 Neutrophils # 11.5 k/uL (1.3-7.7) H 12/26/17 17:13 Lymphocytes # 1.0 k/uL (1.0-4.8) 12/26/17 17:13 Monocytes # 0.5 k/uL (0-1.0) 12/26/17 17:13 Eosinophils # 0.1 k/uL (0-0.7) 12/26/17 17:13 Basophils # 0.0 k/uL (0-0.2) 12/26/17 17:13 PT 16.8 sec (9.0-12.0) H 12/26/17 17:13 INR 1.8 (<1.2) H 12/26/17 17:13 APTT 26.5 sec (22.0-30.0) 12/26/17 17:13 Sodium 134 mmol/L (137-145) L 12/26/17 17:13 Potassium 3.5 mmol/L (3.5-5.1) 12/26/17 17:13 Chloride 91 mmol/L (98-107) L 12/26/17 17:13 Carbon Dioxide 30 mmol/L (22-30) 12/26/17 17:13 Anion Gap 13 mmol/L 12/26/17 17:13 BUN 15 mg/dL (7-17) 12/26/17 17:13 Creatinine 0.93 mg/dL (0.52-1.04) 12/26/17 17:13 Est GFR (CKD-EPI)AfAm 80 (>60 ml/min/1.73 sqM) 12/26/17 17:13 Est GFR (CKD-EPI)NonAf 69 (>60 ml/min/1.73 sqM) 12/26/17 17:13 Glucose 147 mg/dL (74-99) H 12/26/17 17:13 POC Glucose (mg/dL) 109 mg/dL (75-99) H 12/27/17 06:08 POC Glu Human Resources Generalist GABRIEL Sudhir Potter 12/27/17 06:08 Lactic Ac Sepsis Rflx Y 12/26/17 18:02 Plasma Lactic Acid Mynor 1.6 mmol/L (0.7-2.0) 12/26/17 21:12 Calcium 8.7 mg/dL (8.4-10.2) 12/26/17 17:13 Total Bilirubin 0.7 mg/dL (0.2-1.3) 12/26/17 17:13 AST 20 U/L (14-36) 12/26/17 17:13 ALT 30 U/L (9-52) 12/26/17 17:13 Alkaline Phosphatase 60 U/L (38-126) 12/26/17 17:13 Troponin I <0.012 ng/mL (0.000-0.034) 12/26/17 17:13 Total Protein 6.1 g/dL (6.3-8.2) L 12/26/17 17:13 Albumin 3.5 g/dL (3.5-5.0) 12/26/17 17:13 Urine Color Light Yellow 12/26/17 19:06 Urine Appearance Clear (Clear) 12/26/17 19:06 Urine pH 5.5 (5.0-8.0) 12/26/17 19:06 Ur Specific Wendell 1.007 (1.001-1.035) 12/26/17 19:06 Urine Protein Negative (Negative) 12/26/17 19:06 Urine Glucose (UA) 1+ (Negative) H 12/26/17 19:06 Urine Ketones Negative (Negative) 12/26/17 19:06 Urine Blood Negative (Negative) 12/26/17 19:06 Urine Nitrite Negative (Negative) 12/26/17 19:06 Urine Bilirubin Negative (Negative) 12/26/17 19:06 Urine Urobilinogen <2.0 mg/dL (<2.0) 12/26/17 19:06 Ur Leukocyte Esterase Negative (Negative) 12/26/17 19:06 Urine Opiates Screen Detected (NotDetected) H 12/26/17 19:06 Ur Oxycodone Screen Not Detected (NotDetected) 12/26/17 19:06 Urine Methadone Screen Not Detected (NotDetected) 12/26/17 19:06 Ur Propoxyphene Screen Not Detected (NotDetected) 12/26/17 19:06 Ur Barbiturates Screen Not Detected (NotDetected) 12/26/17 19:06 U Tricyclic Antidepress Not Detected (NotDetected) 12/26/17 19:06 Ur Phencyclidine Scrn Not Detected (NotDetected) 12/26/17 19:06 Ur Amphetamines Screen Not Detected (NotDetected) 12/26/17 19:06 U Methamphetamines Scrn Not Detected (NotDetected) 12/26/17 19:06 U Benzodiazepines Scrn Not Detected (NotDetected) 12/26/17 19:06 Urine Cocaine Screen Not Detected (NotDetected) 12/26/17 19:06 U Marijuana (THC) Screen Not Detected (NotDetected) 12/26/17 19:06 CBC & Chem 7: 12/26/17 17:13 12/26/17 17:13 Labs: Abnormal Lab Results - Last 24 Hours (Table) 12/26/17 12/26/17 12/26/17 Range/Units 17:13 17:13 17:13 WBC 13.2 H (3.8-10.6) k/uL Neutrophils # 11.5 H (1.3-7.7) k/uL PT (9.0-12.0) sec INR (<1.2) Sodium 134 L (137-145) mmol/L Chloride 91 L (98-107) mmol/L Glucose 147 H (74-99) mg/dL POC Glucose (mg/dL) (75-99) mg/dL Plasma Lactic Acid Mynor 2.6 H* (0.7-2.0) mmol/L Total Protein 6.1 L (6.3-8.2) g/dL Urine Glucose (UA) (Negative) Urine Opiates Screen (NotDetected) 12/26/17 12/26/17 12/26/17 Range/Units 17:13 19:06 19:06 WBC (3.8-10.6) k/uL Neutrophils # (1.3-7.7) k/uL PT 16.8 H (9.0-12.0) sec INR 1.8 H (<1.2) Sodium (137-145) mmol/L Chloride (98-107) mmol/L Glucose (74-99) mg/dL POC Glucose (mg/dL) (75-99) mg/dL Plasma Lactic Acid Mynor (0.7-2.0) mmol/L Total Protein (6.3-8.2) g/dL Urine Glucose (UA) 1+ H (Negative) Urine Opiates Screen Detected H (NotDetected) 12/26/17 12/27/17 Range/Units 21:26 06:08 WBC (3.8-10.6) k/uL Neutrophils # (1.3-7.7) k/uL PT (9.0-12.0) sec INR (<1.2) Sodium (137-145) mmol/L Chloride (98-107) mmol/L Glucose (74-99) mg/dL POC Glucose (mg/dL) 132 H 109 H (75-99) mg/dL Plasma Lactic Acid Mynor (0.7-2.0) mmol/L Total Protein (6.3-8.2) g/dL Urine Glucose (UA) (Negative) Urine Opiates Screen (NotDetected) Microbiology - Last 24 Hours (Table) 12/26/17 19:20 Gram Stain - Preliminary Groin Wound Culture - Preliminary 12/26/17 19:06 Urine Culture - Preliminary Urine,Voided Assessment and Plan Plan: This is a 57-year-old female patient who presented to the hospital with signs of sepsis with lactic acidosis, metabolic encephalopathy most likely secondary to right groin abscess. Ultrasound has been ordered. Patient is currently on Levaquin and Zosyn. Local wound care will be addressed. He also has chronic diabetic ulcer to the right great toe. Local wound care will be addressed for this. Urine, blood, wound cultures in progress. Continue supportive care. Further recommendations as patient progresses. The above dictated assessment and findings were discussed with Dr. Vu. The impression and plan of care have been directed as dictated. Kerri Kevin nurse practitioner acting as scribe for Dr. Vu.
[2017-12-27] MEDS: NICOTINE 14MG/24HR PATCH TRANSDERM SCH (11:28)
[2017-12-27 11:50] LABS: Glucose,Whole Blood 102 mg/dL (75-99)
[2017-12-27] MEDS: IPRATROPIUM-ALBUTEROL 3 ML NEB INHALATION SCH ×3 (12:00→19:51)
[2017-12-27] MEDS: INSULIN ASPART 100 UNIT/ML 1 ML 10 ML VIAL SQ SCH ×5 (12:05→21:18)
--- NOTE | 2017-12-27 14:24 | P.CON ---
Consult Note - . Consult date: 12/27/17 Assessment/Plan:: This is a 56-year-old female patient well-known to ID service as she has been a patient in the wound healing center for diabetic foot ulceration on the right great toe and underwent treatment with IV antibiotics and has been on and off for several years. She also has a vascular doctor in [place], Dr. Villarreal.Has been following Dr. Noel and the wound healing Center and her last appointment was on December 23 and she underwent debridement at that time. Local wound care is medihoney and she was to return in 3 weeks. Patient states that she had sudden onset of symptoms yesterday. She was out working in the yard and was feeling fine but all of a sudden started feeling shaky and feeling bad in general she had some confusions and chills and was very drowsy and having difficulty staying awake. Patient does have an abscess to her right groin which she states has been very large and draining on its own. Patient presented to [facility] emergency center with a temperature of 104.4, heart rate 106,, blood sugar was 147. Initial lactic acid 2.6 and repeat was 1.6. Urinalysis was clear nitrate and leukoesterase negative. INR is 1.8. Troponin 0.012. Urine drug screen was positive for opiates. CAT scan of the brain was negative. Chest x-ray showed no acute cardio pulmonary disease. CT of the abdomen and pelvis with contrast revealed renal cyst. Low-density right adrenal mass is unchanged and suggestive benign etiology. Right kidney renal collecting system is increased slightly compared to old exam. No stones do not believe there is a renal obstruction. New bilateral mild subsegmental atelectasis at the lung bases. Dilated subcutaneous veins anteriorly in the lower abdomen probably due to collateral lateral flow from occluded left iliac vein stent the veins appear increased in size compared to last CT of October 21. The right groin abscess was apparently drained in the emergency center as it was described as being quite large at that time and is now about 2 x 2 cm. Patient was given Levaquin and ceftriaxone and 2 L of IV fluid and admitted to the selective care unit. Patient is currently on IV antibiotics the form of Levaquin and Zosyn.. Urine, blood and wound cultures have been obtained. Please see the consult note is dictated by nurse practitioner Mrs. Kerri Kevin. Is related as patient is a pleasant woman but has difficulties with medical compliance. She has been following the wound center for her right great toe diabetic foot ulcer. She continues to have an elevated hemoglobin A1c and utilize tobacco. She relates about a week ago she developed a significant abscess to her right groin and it was associated with fevers and chills and increasing amounts of pain eventually the abscess burst and she had spontaneous drainage. Since that time she was given a bit better until the onset of a high- grade fevers chills and rigors that brought her to hospital. Since receiving antibiotics she's feeling somewhat better. The plan for now is to follow her cultures. Ultrasound has been obtained. If Assyrian abscesses still presents would consult surgery for incision and drainage of that to facilitate her healing. Cultures will direct the course of antibiotic therapy at discharge for now receiving. Local wound care with silver alginate has been requested. I agree with evaluation, assessment and plan as dictated by nurse practitioner Kerrilaura Kevin.
[2017-12-27] MEDS: HYDROcodone/APAP 10-325MG 1 EACH TAB PO PRN (16:09)
[2017-12-27 16:31] LABS: Glucose,Whole Blood 194 mg/dL (75-99)
[2017-12-27] MEDS ORDERED: WARFARIN 2.5 MG TAB PO SCH (18:00)
[2017-12-27] MEDS: ATORVASTATIN 20 MG TAB PO SCH (20:47)
[2017-12-27 21:03] LABS: Glucose,Whole Blood 376 mg/dL (75-99)
[2017-12-27] MEDS: INSULIN DETEMIR 100 UNIT/ML 10 ML VIAL SQ SCH (21:18)
[2017-12-28] MEDS: PIPERACILLIN-TAZOBACTAM 3.375 GM in DEXTROSE/WATER 1 50ML.BAG IVPB SCH ×4 (00:21→23:07)
[2017-12-28] MEDS: HYDROcodone/APAP 10-325MG 1 EACH TAB PO PRN ×3 (04:37→23:11)
[2017-12-28] MEDS: SODIUM CHLORIDE 0.9% 1,000 ML IV SCH ×3 (04:39→20:34)
[2017-12-28 06:14] LABS: Glucose,Whole Blood 101 mg/dL (75-99)
[2017-12-28] MEDS: INSULIN ASPART 100 UNIT/ML 1 ML 10 ML VIAL SQ SCH ×7 (06:19→21:38)
[2017-12-28 06:43] LABS: HCT 32.2 % (34.0-46.0); HGB 10.6 gm/dL (11.4-16.0); MCH 27.5 pg (25.0-35.0); MCHC 32.9 g/dL (31.0-37.0); MCV 83.5 fL (80.0-100.0); Mean Platelet Volume 7.8; Platelet Count 152 k/uL (150-450); RBC 3.86 m/uL (3.80-5.40); RDW 15.4 % (11.5-15.5); WBC 7.5 k/uL (3.8-10.6)
[2017-12-28] MEDS: PANTOPRAZOLE 40 MG TABLET PO SCH (06:50)
[2017-12-28 06:56] LABS: Albumin 2.7 g/dL (3.5-5.0); Calcium 8.1 mg/dL (8.4-10.2); Potassium 3.5 mmol/L (3.5-5.1); Total Bilirubin 0.5 mg/dL (0.2-1.3); Total Protein 5.2 g/dL (6.3-8.2)
[2017-12-28] MEDS: LEVOFLOXACIN 500MG-D5W PMX 500 MG in DEXTROSE/WATER 1 100ML.BAG IVPB SCH (08:30)
[2017-12-28] MEDS: GABAPENTIN 400 MG CAP PO SCH ×3 (08:31→20:34)
[2017-12-28] MEDS: CYANOCOBALAMIN-FA-PYRIDOXINE 1 EACH TAB PO SCH (08:31)
[2017-12-28] MEDS: ASPIRIN 81 MG PO SCH (08:31)
[2017-12-28] MEDS: DULoxetine HCL 30 MG CAPSULE.DR PO SCH (08:31)
[2017-12-28] MEDS: metFORMIN 500 MG TAB PO SCH ×2 (08:32→20:34)
[2017-12-28] MEDS: POTASSIUM CHLORIDE ER 10 MEQ TAB.ER.PRT PO SCH ×2 (08:32→20:34)
[2017-12-28] MEDS: METOCLOPRAMIDE 10 MG TAB PO SCH ×3 (08:32→20:34)
[2017-12-28] MEDS: LINAGLIPTIN 5 MG TABLET PO SCH (08:32)
[2017-12-28] MEDS: NICOTINE 14MG/24HR PATCH TRANSDERM SCH (08:32)
[2017-12-28 08:33] LABS: INR 1.9 (<1.2); Prothrombin Time 17.6 sec (9.0-12.0)
[2017-12-28] MEDS: IPRATROPIUM-ALBUTEROL 3 ML NEB INHALATION SCH ×4 (08:53→20:20)
[2017-12-28] MEDS ORDERED: Potassium Replacement Protocol 1 EACH MISC MISCELLANE PRN (09:31)
--- NOTE | 2017-12-28 11:36 | P.PN ---
Subjective Progress Note Date: 12/28/17 Principal diagnosis: Sepsis, right groin abscess, right big toe diabetic foot, type 2 diabetes not controlled, advance CAD, COPD, chronic DVT and PE, PAD, hypertension This is a 57-year-old female patient of Dr. Balderas with history of CAD , with cardiac stent in May 2016,24/05 ICA, followed by 2 other stents 1 in the LAD in 2011 the other one in the obtuse marginal branch in 2011 as well hypertension and COPD diabetes mellitus type 2, previous multiple DVT and PE requiring chronic anticoagulation followed by Dr. Bill, patient was recently hospitalized at [facility] in 02/28/2017 after she developed to have a significant lightheadedness , neuro workup that was negative including ultrasound of the carotid echocardiogram and EEG along with a computed tomography scan of the brain that showed benign meningioma, seen in March 2017 for early osteomyelitis came back in August 2017 for right great toe ulcer with significant cellulitis and questionable ostiomyelitis present. Has been following Dr. Noel and the wound healing Center and her last appointment was on December 23 and she underwent debridement at that time. Local wound care is medihoney and she was to return in 3 weeks. Patient states that she had sudden onset of symptoms yesterday. She was out working in the yard and was feeling fine but all of a sudden started feeling shaky and feeling bad in general she had some confusions and chills and was very drowsy and having difficulty staying awake. Patient does have an abscess to her right groin which she states has been very large and draining on its own. Patient presented to [facility] emergency center with a temperature of 104.4, heart rate 106,, blood sugar was 147. Initial lactic acid 2.6 and repeat was 1.6. Urinalysis was clear nitrate and leukoesterase negative. INR is 1.8. Troponin 0.012. Urine drug screen was positive for opiates. CAT scan of the brain was negative. Chest x-ray showed no acute cardio pulmonary disease. CT of the abdomen and pelvis with contrast revealed renal cyst. Low-density right adrenal mass is unchanged and suggestive benign etiology. Right kidney renal collecting system is increased slightly compared to old exam. No stones do not believe there is a renal obstruction. New bilateral mild subsegmental atelectasis at the lung bases. Dilated subcutaneous veins anteriorly in the lower abdomen probably due to collateral lateral flow from occluded left iliac vein stent the veins appear increased in size compared to last CT of October 21. The right groin abscess was apparently drained in the emergency center as it was described as being quite large at that time and is now about 2 x 2 cm. Patient was given Levaquin and ceftriaxone and 2 L of IV fluid and admitted to the selective care unit where there is a consult in place with Dr. Vu for sepsis. Urine blood and wound cultures have been obtained. She is much better today not up tended not having any further fever or chills right groin abscess has been better lactic acid has improved still well hydrated awaiting for the final blood culture still awaiting to change her antibiotic depend on the culture result next 24 hours. Objective - Vital Signs Vital signs: Vital Signs Temp 97.9 F 12/28/17 08:30 Pulse 88 12/28/17 09:05 Resp 16 12/28/17 08:30 BP 112/64 12/28/17 08:30 Pulse Ox 95 12/28/17 08:54 Intake & Output 12/27/17 12/28/17 12/28/17 18:59 06:59 18:59 Intake Total 480 1900 240 Output Total 2 1 Balance 478 1899 240 Weight 83.5 kg 93.6 kg Intake: IV 1600 Sodium Chloride 0.9% 1, 1600 000 ml @ 100 mls/hr IV . Q10H [facility] Rx#:[id number] Oral 480 300 240 Output: Stool 2 1 Other: Voiding Method Bedpan Toilet # Voids 2 - Constitutional General appearance: Present: cooperative, disheveled, obese. Absent: average body habitus, mild distress, morbidly obese, no acute distress, severe distress , thin - EENT Eyes: Present: normal appearance. Absent: abnormal pupil, anicteric sclerae, disc margins sharp, edentulous, EOMI, PERRLA, fundus normal, photophobia, dentition normal, poor dentition, ptosis, scleral icterus ENT: Present: pharyngeal erythema. Absent: hard of hearing, hearing grossly normal, NA/AT, normal oropharynx, other, thrush, tonsillar exudates, tonsillar swelling Ears: bilateral: normal - Neck Neck: Present: normal ROM. Absent: lymphadenopathy, other, rigidity, stridor, thyromegaly Carotids: bilateral: upstroke normal, upstroke delayed Thyroid: bilateral: normal size - Respiratory Respiratory: bilateral: diminished, dullness, rales, rhonchi - Cardiovascular Rhythm: regular Heart sounds: normal: S1, S2 Abnormal Heart Sounds: Present: systolic murmur, S3 Gallop - Gastrointestinal Gastrointestinal Comment(s): Right groin area still have small abscess to time 2 cm with open area in the middle still having drainage. General gastrointestinal: Present: distended, soft Localized gastrointestinal: tender: RLQ - Integumentary Integumentary Comment(s): Right big toe had an ulcerated area been treated for long time still have an open area Integumentary: Present: cellulitis, normal turgor, pale, rash. Absent: calor, cyanotic, decreased turgor, flushed, jaundiced, normal, ulcer - Neurologic Neurologic: Present: CNII-XII intact - Musculoskeletal Musculoskeletal: Present: gait normal, generalized weakness, strength equal bilaterally - Psychiatric Psychiatric: Present: A&O x's 3, appropriate affect - Labs CBC & Chem 7: 12/28/17 05:47 12/28/17 05:47 Labs: Abnormal Lab Results - Last 24 Hours (Table) 12/26/17 12/27/17 12/27/17 Range/Units 17:13 11:36 16:23 Hgb (11.4-16.0) gm/dL Hct (34.0-46.0) % PT (9.0-12.0) sec INR (<1.2) POC Glucose (mg/dL) 102 H 194 H (75-99) mg/dL Hemoglobin A1c 10.0 H (4.0-6.0) % Calcium (8.4-10.2) mg/dL Magnesium (1.6-2.3) mg/dL AST (14-36) U/L Total Protein (6.3-8.2) g/dL Albumin (3.5-5.0) g/dL 12/27/17 12/28/17 12/28/17 Range/Units 21:02 05:47 05:47 Hgb 10.6 L (11.4-16.0) gm/dL Hct 32.2 L (34.0-46.0) % PT (9.0-12.0) sec INR (<1.2) POC Glucose (mg/dL) 376 H (75-99) mg/dL Hemoglobin A1c (4.0-6.0) % Calcium 8.1 L (8.4-10.2) mg/dL Magnesium (1.6-2.3) mg/dL AST 63 H (14-36) U/L Total Protein 5.2 L (6.3-8.2) g/dL Albumin 2.7 L (3.5-5.0) g/dL 12/28/17 12/28/17 12/28/17 Range/Units 05:47 06:12 08:13 Hgb (11.4-16.0) gm/dL Hct (34.0-46.0) % PT 17.6 H (9.0-12.0) sec INR 1.9 H (<1.2) POC Glucose (mg/dL) 101 H (75-99) mg/dL Hemoglobin A1c (4.0-6.0) % Calcium (8.4-10.2) mg/dL Magnesium 1.2 L (1.6-2.3) mg/dL AST (14-36) U/L Total Protein (6.3-8.2) g/dL Albumin (3.5-5.0) g/dL Microbiology - Last 24 Hours (Table) 12/26/17 19:06 Urine Culture - Final Urine,Voided 12/26/17 17:13 Blood Culture - Preliminary Blood No Growth after 24 hours 12/26/17 19:20 Gram Stain - Preliminary Groin Wound Culture - Preliminary Assessment and Plan Plan: 1. Sepsis with lactic acidosis, metabolic encephalopathy, secondary to infection has been much better after starting antibiotic and hydration patient has improved. Source of infection still the right groin and possible diabetic foot with ulcerated area in the right big toe. 2. Diabetes mellitus type 2 with recent hemoglobin A1c of 10.9. Continue Levemir 40 units at bedtime, NovoLog 15 units with meals and scale before meals and at bedtime, try gentle for Januvia. Patient still noncompliant her blood sugar quite bit high with A1c 10.9 she is seen by endocrinology.. 3. Coronary artery disease status post multiple PCI with ischemic cardiomyopathy . Patient seen cardiology on regular basis. Continue patient on Crestor, aspirin 81 mg daily. orally once every day as well as nitroglycerin as needed along with aspirin 81 mg orally once every day. 4. Hypertension and hypertensive cardiovascular disease. Continue Lasix 10 mg every 48 hours. Patient has been recently taken off beta nisa due to hypotension. 5. Chronic DVT and PEs. Continue patient on Coumadin keep her INR. 2-3. INR is subtherapeutic. 6. Chronic tobacco use and dependence with COPD. smoking cessation. Nicotine patch 7. Hyperlipidemia. Continue patient on Lipitor 20 mg orally once every day. 8. Gastritis. Continue patient on Protonix 40 mg orally once every day. 9. Severe PAD under the care of Dr. Villarreal and Dr. Bill, patient underwent PTBA in the past by Dr. Villarreal at the [facility]. 10. Chronic diabetic ulcer to the right great toe. Patient follows in the wound healing Center under the care of Dr. Noel. 11. Diabetic polyneuropathy. Continue gabapentin 800 mg orally twice every day. 12. DVT prophylaxis. Coumadin 13. GI prophylaxis. Pepcid. 14. Recurrent depression. Continue Cymbalta 30 mg daily Discharge planning: If patient is doing better tomorrow she might be able to go home.
[2017-12-28 11:43] LABS: Glucose,Whole Blood 141 mg/dL (75-99)
[2017-12-28] MEDS: POTASSIUM CHLORIDE ER 20 MEQ TAB.ER PO SCH (12:32)
[2017-12-28] MEDS ORDERED: Magnesium Replacement Protocol 1 EACH MISC MISCELLANE PRN (12:59)
[2017-12-28] MEDS: MAGNESIUM SULFATE-D5W PMX 1 GM in DEXTROSE/WATER 1 100ML.BAG IVPB SCH ×3 (14:35→16:50)
[2017-12-28] MEDS: WARFARIN 5 MG TAB PO SCH (16:51)
[2017-12-28 16:57] LABS: Glucose,Whole Blood 151 mg/dL (75-99)
[2017-12-28] MEDS: ATORVASTATIN 20 MG TAB PO SCH (20:33)
[2017-12-28 21:11] LABS: Glucose,Whole Blood 241 mg/dL (75-99)
[2017-12-28] MEDS: INSULIN DETEMIR 100 UNIT/ML 10 ML VIAL SQ SCH (21:38)
[2017-12-29] MEDS: HYDROcodone/APAP 10-325MG 1 EACH TAB PO PRN ×2 (05:29→17:06)
[2017-12-29 05:50] LABS: Basophils % (A) 0 %; Eosinophils # (A) 0.2 k/uL (0-0.7); Eosinophils % (A) 4 %; HCT 34.2 % (34.0-46.0); HGB 11.1 gm/dL (11.4-16.0); Hypochromasia Slight; Lymphocytes # (A) 1.3 k/uL (1.0-4.8); Lymphocytes % (A) 26 %; MCH 27.7 pg (25.0-35.0); MCHC 32.5 g/dL (31.0-37.0); MCV 85.3 fL (80.0-100.0); Mean Platelet Volume 8.7; Monocytes # (A) 0.2 k/uL (0-1.0); Monocytes % (A) 5 %; Neutrophils # (A) 3.2 k/uL (1.3-7.7); Neutrophils % (A) 63 %; Platelet Count 131 k/uL (150-450); RBC 4.01 m/uL (3.80-5.40); RDW 15.4 % (11.5-15.5); WBC 5.1 k/uL (3.8-10.6)
[2017-12-29 06:00] LABS: INR 1.9 (<1.2); Prothrombin Time 17.3 sec (9.0-12.0)
[2017-12-29 06:05] LABS: Calcium 8.8 mg/dL (8.4-10.2); Magnesium 1.9 mg/dL (1.6-2.3); Total Bilirubin 0.3 mg/dL (0.2-1.3); Total Protein 5.4 g/dL (6.3-8.2)
[2017-12-29 06:08] LABS: Glucose,Whole Blood 142 mg/dL (75-99)
[2017-12-29] MEDS: PANTOPRAZOLE 40 MG TABLET PO SCH (06:59)
[2017-12-29] MEDS: INSULIN ASPART 100 UNIT/ML 1 ML 10 ML VIAL SQ SCH ×7 (07:01→21:04)
[2017-12-29] MEDS: IPRATROPIUM-ALBUTEROL 3 ML NEB INHALATION SCH ×4 (07:23→19:34)
[2017-12-29] MEDS: PIPERACILLIN-TAZOBACTAM 3.375 GM in DEXTROSE/WATER 1 50ML.BAG IVPB SCH ×3 (09:33→23:35)
[2017-12-29] MEDS: ASPIRIN 81 MG PO SCH (09:33)
[2017-12-29] MEDS: FUROSEMIDE 20 MG TAB PO SCH (09:34)
[2017-12-29] MEDS: DULoxetine HCL 30 MG CAPSULE.DR PO SCH (09:34)
[2017-12-29] MEDS: GABAPENTIN 400 MG CAP PO SCH ×3 (09:34→21:06)
[2017-12-29] MEDS: CYANOCOBALAMIN-FA-PYRIDOXINE 1 EACH TAB PO SCH (09:34)
[2017-12-29] MEDS: NICOTINE 14MG/24HR PATCH TRANSDERM SCH (09:34)
[2017-12-29] MEDS: METOCLOPRAMIDE 10 MG TAB PO SCH ×3 (09:34→23:35)
[2017-12-29] MEDS: LINAGLIPTIN 5 MG TABLET PO SCH (09:35)
[2017-12-29] MEDS: SODIUM CHLORIDE 0.9% 1,000 ML IV SCH ×3 (09:35→23:34)
[2017-12-29] MEDS: metFORMIN 500 MG TAB PO SCH ×2 (09:35→20:54)
[2017-12-29] MEDS: POTASSIUM CHLORIDE ER 10 MEQ TAB.ER.PRT PO SCH ×2 (09:35→20:54)
--- NOTE | 2017-12-29 09:55 | P.PN ---
Subjective Progress Note Date: 12/29/17 Principal diagnosis: Sepsis, right groin abscess, right big toe diabetic foot, type 2 diabetes not controlled, advance CAD, COPD, chronic DVT and PE, PAD, hypertension. This is a 57-year-old female patient of Dr. Balderas with history of CAD , with cardiac stent in May 2016,24/05 ICA, followed by 2 other stents 1 in the LAD in 2011 the other one in the obtuse marginal branch in 2011 as well hypertension and COPD diabetes mellitus type 2, previous multiple DVT and PE requiring chronic anticoagulation followed by Dr. Bill, patient was recently hospitalized at [facility] in 02/28/2017 after she developed to have a significant lightheadedness , neuro workup that was negative including ultrasound of the carotid echocardiogram and EEG along with a computed tomography scan of the brain that showed benign meningioma, seen in March 2017 for early osteomyelitis came back in August 2017 for right great toe ulcer with significant cellulitis and questionable ostiomyelitis present. Has been following Dr. Noel and the wound healing Center and her last appointment was on December 23 and she underwent debridement at that time. Local wound care is medihoney and she was to return in 3 weeks. Patient states that she had sudden onset of symptoms yesterday. She was out working in the yard and was feeling fine but all of a sudden started feeling shaky and feeling bad in general she had some confusions and chills and was very drowsy and having difficulty staying awake. Patient does have an abscess to her right groin which she states has been very large and draining on its own. Patient presented to [facility] emergency center with a temperature of 104.4, heart rate 106,, blood sugar was 147. Initial lactic acid 2.6 and repeat was 1.6. Urinalysis was clear nitrate and leukoesterase negative. INR is 1.8. Troponin 0.012. Urine drug screen was positive for opiates. CAT scan of the brain was negative. Chest x-ray showed no acute cardio pulmonary disease. CT of the abdomen and pelvis with contrast revealed renal cyst. Low-density right adrenal mass is unchanged and suggestive benign etiology. Right kidney renal collecting system is increased slightly compared to old exam. No stones do not believe there is a renal obstruction. New bilateral mild subsegmental atelectasis at the lung bases. Dilated subcutaneous veins anteriorly in the lower abdomen probably due to collateral lateral flow from occluded left iliac vein stent the veins appear increased in size compared to last CT of October 21. The right groin abscess was apparently drained in the emergency center as it was described as being quite large at that time and is now about 2 x 2 cm. Patient was given Levaquin and ceftriaxone and 2 L of IV fluid and admitted to the selective care unit where there is a consult in place with Dr. Vu for sepsis. Urine blood and wound cultures have been obtained. She is much better today not up tended not having any further fever or chills right groin abscess has been better lactic acid has improved still well hydrated awaiting for the final blood culture still awaiting to change her antibiotic depend on the culture result next 24 hours. 12/29: Patient abscess in the right groin area not draining any more but still had to time 2 cm abscess we will consult general surgery for I and D [place] continue on current IV antibiotics, culture from the wound area came back positive for strep agalactia group B been well treated with antibiotics. Objective - Vital Signs Vital signs: Vital Signs Temp 97.5 F L 12/29/17 09:30 Pulse 72 12/29/17 09:30 Resp 16 12/29/17 09:30 BP 115/72 12/29/17 09:30 Pulse Ox 94 L 12/29/17 09:30 Intake & Output 12/28/17 12/29/17 12/29/17 18:59 06:59 18:59 Intake Total 1850 850 360 Balance 1850 850 360 Weight 94.3 kg Intake: IV 800 800 Sodium Chloride 0.9% 1, 800 800 000 ml @ 100 mls/hr IV . Q10H [facility] Rx#:[id number] Intake, IV Titration 450 50 Amount Levofloxacin 500Mg-D5w 100 Pmx 500 mg In Dextrose/ Water 1 100ml.bag @ 100 mls/hr IVPB Q24HR [facility] Rx# :[id number] Magnesium Sulfate-D5w Pmx 300 1 gm In Dextrose/Water 1 100ml.bag @ 100 mls/hr IVPB Q1H [facility] Rx#: [id number] Piperacillin-Tazobactam 3 50 50 .375 gm In Dextrose/Water 1 50ml.bag @ 12.5 mls/hr IVPB Q8HR [facility] Rx#: [id number] Oral 600 360 Other: Voiding Method Toilet Toilet # Voids 2 - Constitutional General appearance: Present: cooperative, disheveled, no acute distress, obese. Absent: average body habitus, mild distress, morbidly obese, severe distress, thin - EENT Eyes: Present: normal appearance. Absent: abnormal pupil, anicteric sclerae, disc margins sharp, edentulous, EOMI, PERRLA, fundus normal, photophobia, dentition normal, poor dentition, ptosis, scleral icterus ENT: Present: normal oropharynx. Absent: hard of hearing, hearing grossly normal, NA/AT, other, pharyngeal erythema, thrush, tonsillar exudates, tonsillar swelling Ears: bilateral: normal - Neck Neck: Present: normal ROM. Absent: lymphadenopathy, other, rigidity, stridor, thyromegaly Carotids: bilateral: upstroke normal Thyroid: bilateral: normal size - Respiratory Respiratory: bilateral: diminished, dullness, rales - Cardiovascular Rhythm: irregularly irregular Heart sounds: normal: S1, S2 Abnormal Heart Sounds: Present: systolic murmur, S3 Gallop - Gastrointestinal General gastrointestinal: Present: distended, normal bowel sounds, soft. Absent : absent bowel sounds, decreased bowel sounds, hepatomegaly, hyperactive bowel sounds, organomegaly, rigid, scaphoid, splenomegaly, tenderness, umbilical hernia, ventral hernia - Integumentary Integumentary Comment(s): Leg still have significant swelling with the right big toe still have an infection right groin area has an abscess measured 23 cm remain. Integumentary: Present: cellulitis, cyanotic, decreased turgor, pale, ulcer - Neurologic Neurologic: Present: CNII-XII intact - Musculoskeletal Musculoskeletal: Present: gait normal, generalized weakness, strength equal bilaterally - Psychiatric Psychiatric: Present: A&O x's 3, appropriate affect. Absent: intact judgment & insight - Labs CBC & Chem 7: 12/29/17 05:34 12/29/17 05:34 Labs: Abnormal Lab Results - Last 24 Hours (Table) 12/28/17 12/28/17 12/28/17 Range/Units 05:47 11:20 16:52 Hgb (11.4-16.0) gm/dL Plt Count (150-450) k/uL PT (9.0-12.0) sec INR (<1.2) Glucose (74-99) mg/dL POC Glucose (mg/dL) 141 H 151 H (75-99) mg/dL Magnesium 1.2 L (1.6-2.3) mg/dL AST (14-36) U/L Total Protein (6.3-8.2) g/dL Albumin (3.5-5.0) g/dL 12/28/17 12/29/17 12/29/17 Range/Units 21:08 05:34 05:34 Hgb 11.1 L (11.4-16.0) gm/dL Plt Count 131 L (150-450) k/uL PT (9.0-12.0) sec INR (<1.2) Glucose 119 H (74-99) mg/dL POC Glucose (mg/dL) 241 H (75-99) mg/dL Magnesium (1.6-2.3) mg/dL AST 57 H (14-36) U/L Total Protein 5.4 L (6.3-8.2) g/dL Albumin 3.0 L (3.5-5.0) g/dL 12/29/17 12/29/17 Range/Units 05:34 06:07 Hgb (11.4-16.0) gm/dL Plt Count (150-450) k/uL PT 17.3 H (9.0-12.0) sec INR 1.9 H (<1.2) Glucose (74-99) mg/dL POC Glucose (mg/dL) 142 H (75-99) mg/dL Magnesium (1.6-2.3) mg/dL AST (14-36) U/L Total Protein (6.3-8.2) g/dL Albumin (3.5-5.0) g/dL Microbiology - Last 24 Hours (Table) 12/26/17 19:20 Gram Stain - Final Groin Wound Culture - Final Strep agalactiae - (group b) 12/26/17 17:13 Blood Culture - Preliminary Blood No Growth after 48 hours Assessment and Plan Plan: 1. Sepsis with lactic acidosis, metabolic encephalopathy, secondary to infection has been much better after starting antibiotic and hydration patient has improved. Source of infection still the right groin and possible diabetic foot with ulcerated area in the right big toe. The right groin still have abscess 23 cm will be drained today. 2. Diabetes mellitus type 2 with recent hemoglobin A1c of 10.9. Continue Levemir 40 units at bedtime, NovoLog 15 units with meals and scale before meals and at bedtime, try gentle for Januvia. Patient still noncompliant her blood sugar quite bit high with A1c 10.9 she is seen by endocrinology.. 3. Coronary artery disease status post multiple PCI with ischemic cardiomyopathy . Patient seen cardiology on regular basis. Continue patient on Crestor, aspirin 81 mg daily. orally once every day as well as nitroglycerin as needed along with aspirin 81 mg orally once every day. 4. Hypertension and hypertensive cardiovascular disease. Continue Lasix 10 mg every 48 hours. Patient has been recently taken off beta nisa due to hypotension. 5. Chronic DVT and PEs. Continue patient on Coumadin keep her INR. 2-3. INR is subtherapeutic. 6. Chronic tobacco use and dependence with COPD. smoking cessation. Nicotine patch 7. Hyperlipidemia. Continue patient on Lipitor 20 mg orally once every day. 8. Gastritis. Continue patient on Protonix 40 mg orally once every day. 9. Severe PAD under the care of Dr. Villarreal and Dr. Bill, patient underwent PTBA in the past by Dr. Villarreal at the [facility]. 10. Chronic diabetic ulcer to the right great toe. Patient follows in the wound healing Center under the care of Dr. Noel. Continue topical care and will be going back to the wound clinic earlier this week 11. Diabetic polyneuropathy. Continue gabapentin 800 mg orally twice every day. 12. DVT prophylaxis. Coumadin 13. GI prophylaxis. Pepcid. 14. Recurrent depression. Continue Cymbalta 30 mg daily Discharge planning: If I @ D was well today with finalize antibiotic and send patient home tomorrow.
[2017-12-29 11:59] LABS: Glucose,Whole Blood 124 mg/dL (75-99)
[2017-12-29] MEDS ORDERED: LIDOCAINE 2% INJ 20 MG/ML (20 ML MDV) ONE (13:15)
--- NOTE | 2017-12-29 13:21 | P.GSCN ---
History of Present Illness Consult date: 12/29/17 History of present illness: This is a 57-year-old female who was admitted to the hospital with sepsis and treated with antibiotics and IV fluids. She has a complex past medical history as detailed in chart. She has been having this chronic right groin cellulitis and abscess. She states it has drained before it was yellow drainage.She currently states she has been experiancing some tenderness in the groin. She has not noted any drainage today. Past Medical History Past Medical History: Coronary Artery Disease (CAD), Cancer, Chest Pain / Angina , COPD, CVA/TIA, Diabetes Mellitus, Deep Vein Thrombosis (DVT), GERD/Reflux, Hyperlipidemia, Hypertension, Myocardial Infarction (SD), Osteoarthritis (OA), Pulmonary Embolus (PE) Additional Past Medical History / Comment(s): states "b/p and heart rate running low", CVA on 11-16-16-Increased fatigue,SOB with activity,Loss of appetitie,pain in stomach after eating.Mutiple DVT,mesentaric thrombosis x2,hx GENITAL WARTS, neuropathy,pad,chronic pain syndrome,ddd lumbar region w/ radiculopathy, fell jun 2015 tore rt rotator cuff, pancreatitis, uti, non alcoholic fatty liver, skin cancer removed from neck.poly neuropathy wound rt great toe -goes to the [facility] on mondays. t toe Last Myocardial Infarction Date:: 2010 History of Any Multi-Drug Resistant Organisms: None Reported Past Surgical History: Section, Heart Catheterization, Heart Catheterization With Stent, Orthopedic Surgery, Tonsillectomy, Tubal Ligation Additional Past Surgical History / Comment(s): 11 Stents in left leg, fistula left thigh, full mouth teeth extraction, TRAPEASE VENA CAVA FILTER, carpel tunnel, heart stents x4 rca and lad, tumor removal from uterus. Genital warts removed, INGRID.skin cancer removed from neck Past Anesthesia/Blood Transfusion Reactions: No Reported Reaction Date of Last Stent Placement:: May 2016 Smoking Status: Current every day smoker Additional Past Alcohol Use History / Comment(s): Patient started smoking at age 23. She currently smokes half a pack per day and is still an active smoker. - Past Family History Mother Family Medical History: Cancer, Congestive Heart Failure (CHF), Diabetes Mellitus, Myocardial Infarction (SD) Additional Family Medical History / Comment(s): Ovarian CA. Mother at age 69. Father Family Medical History: Coronary Artery Disease (CAD), Myocardial Infarction (SD ) Additional Family Medical History / Comment(s): Father at age 70. Sister(s) Family Medical History: Myocardial Infarction (SD) Additional Family Medical History / Comment(s): Patient has one sister with myocardial infarction at age 55. Son(s) Family Medical History: Deep Vein Thrombosis (DVT), Pulmonary Embolus Additional Family Medical History / Comment(s): Patient has 2 sons and one has history of DVT and pulmonary embolism. Patient does not have any daughters. Patient does not have any brothers. Medications and Allergies Home Medications Medication Instructions Recorded Confirmed Type Gabapentin 800 mg PO BID 12/14/13 12/26/17 History DULoxetine HCL [Cymbalta] 30 mg PO QAM 07/15/14 12/26/17 History Ergocalciferol [Vitamin D2 50,000 unit PO Q14D 08/26/15 12/26/17 History (DRISDOL)] Insulin Lispro [humaLOG Kwikpen] 15 unit SQ AC-TID 08/26/15 12/26/17 History metFORMIN HCL 1,000 mg PO BID 08/26/15 12/26/17 History Rosuvastatin [Crestor] 10 mg PO HS #0 10/01/16 12/26/17 Rx Insulin Glargine,Hum.rec.anlog 40 unit SQ HS 01/18/17 12/26/17 History [Lantus Solostar] Warfarin [Coumadin] 2.5 mg PO TUFR #0 02/28/17 12/26/17 Rx Potassium Chloride [K-Tab ER] 10 meq PO BID 03/31/17 12/26/17 History HYDROcodone/APAP 10-325MG [[place] 1 tab PO QID PRN 08/07/17 12/26/17 History 10-325] Aspirin 81 mg PO QAM 10/21/17 12/26/17 History Metoclopramide [Reglan] 10 mg PO TID #90 tab 10/22/17 12/26/17 Rx sitaGLIPtin PHOSPHATE [Januvia] 50 mg PO DAILY #30 tab 10/22/17 12/26/17 Rx Moxifloxacin HCl 400 mg PO BID 11/18/17 12/26/17 History B12/Levomefolate Calcium/B-6 1 tab PO DAILY 12/02/17 12/26/17 History [Foltx Tablet] Furosemide [Lasix] 10 mg PO Q48H 12/26/17 12/26/17 History Warfarin Sodium [Coumadin] 5 mg PO SUMOWETHSA 12/26/17 12/26/17 History Allergies Allergy/AdvReac Type Severity Reaction Status Date / Time vancomycin Allergy Rash/Hives Verified 12/26/17 17:20 Surgical - Exam Osteopathic Statement: *. No significant issues noted on an osteopathic structural exam other than those noted in the History and Physical/Consult. Vital Signs Temp Pulse Resp BP Pulse Ox 104.4 F H 106 H 19 113/73 96 12/26/17 17:06 12/26/17 17:06 12/26/17 17:06 12/26/17 17:06 12/26/17 17:06 - General well developed, well nourished, no distress - Eyes PERRL - ENT normal pinna, normal nares - Neck trachea midline - Respiratory normal expansion, normal respiratory effort - Abdomen Abdomen: soft, non tender - Integumentary Induration and erythema right groin. Small area of fluctuance. - Neurologic normal coordination, normal sensation - Psychiatric oriented to time, oriented to person, oriented to place Results - Labs 12/29/17 05:34 12/29/17 05:34 Abnormal Lab Results - Last 24 Hours (Table) 12/28/17 12/28/17 12/29/17 Range/Units 16:52 21:08 05:34 Hgb 11.1 L (11.4-16.0) gm/dL Plt Count 131 L (150-450) k/uL PT (9.0-12.0) sec INR (<1.2) Glucose (74-99) mg/dL POC Glucose (mg/dL) 151 H 241 H (75-99) mg/dL AST (14-36) U/L Total Protein (6.3-8.2) g/dL Albumin (3.5-5.0) g/dL 12/29/17 12/29/17 12/29/17 Range/Units 05:34 05:34 06:07 Hgb (11.4-16.0) gm/dL Plt Count (150-450) k/uL PT 17.3 H (9.0-12.0) sec INR 1.9 H (<1.2) Glucose 119 H (74-99) mg/dL POC Glucose (mg/dL) 142 H (75-99) mg/dL AST 57 H (14-36) U/L Total Protein 5.4 L (6.3-8.2) g/dL Albumin 3.0 L (3.5-5.0) g/dL 12/29/17 Range/Units 11:48 Hgb (11.4-16.0) gm/dL Plt Count (150-450) k/uL PT (9.0-12.0) sec INR (<1.2) Glucose (74-99) mg/dL POC Glucose (mg/dL) 124 H (75-99) mg/dL AST (14-36) U/L Total Protein (6.3-8.2) g/dL Albumin (3.5-5.0) g/dL Microbiology - Last 24 Hours (Table) 12/26/17 19:20 Gram Stain - Final Groin Wound Culture - Final Strep agalactiae - (group b) 12/26/17 17:13 Blood Culture - Preliminary Blood No Growth after 48 hours Diabetes panel 12/29/17 Range/Units 05:34 Sodium 143 (137-145) mmol/L Potassium 4.0 (3.5-5.1) mmol/L Chloride 104 (98-107) mmol/L Carbon Dioxide 25 (22-30) mmol/L BUN 9 (7-17) mg/dL Creatinine 1.00 (0.52-1.04) mg/dL Glucose 119 H (74-99) mg/dL Calcium 8.8 (8.4-10.2) mg/dL AST 57 H (14-36) U/L ALT 46 (9-52) U/L Alkaline Phosphatase 54 (38-126) U/L Total Protein 5.4 L (6.3-8.2) g/dL Albumin 3.0 L (3.5-5.0) g/dL Calcium panel 12/29/17 Range/Units 05:34 Calcium 8.8 (8.4-10.2) mg/dL Albumin 3.0 L (3.5-5.0) g/dL Pituitary panel 12/29/17 Range/Units 05:34 Sodium 143 (137-145) mmol/L Potassium 4.0 (3.5-5.1) mmol/L Chloride 104 (98-107) mmol/L Carbon Dioxide 25 (22-30) mmol/L BUN 9 (7-17) mg/dL Creatinine 1.00 (0.52-1.04) mg/dL Glucose 119 H (74-99) mg/dL Calcium 8.8 (8.4-10.2) mg/dL Adrenal panel 12/29/17 Range/Units 05:34 Sodium 143 (137-145) mmol/L Potassium 4.0 (3.5-5.1) mmol/L Chloride 104 (98-107) mmol/L Carbon Dioxide 25 (22-30) mmol/L BUN 9 (7-17) mg/dL Creatinine 1.00 (0.52-1.04) mg/dL Glucose 119 H (74-99) mg/dL Calcium 8.8 (8.4-10.2) mg/dL Total Bilirubin 0.3 (0.2-1.3) mg/dL AST 57 H (14-36) U/L ALT 46 (9-52) U/L Alkaline Phosphatase 54 (38-126) U/L Total Protein 5.4 L (6.3-8.2) g/dL Albumin 3.0 L (3.5-5.0) g/dL Assessment and Plan Assessment: Right groin abscess Plan: Incision and drainage of right groin abscess
--- NOTE | 2017-12-29 13:39 | P.PCN ---
Date of Procedure: 12/29/17 Preoperative Diagnosis: Right groin abscess Postoperative Diagnosis: Same Procedure(s) Performed: Incision and drainage right groin abscess 4 x 3 cm Anesthesia: local Surgeon: Zaid Maddox Estimated Blood Loss (ml): 5 Condition: stable Disposition: floor Description of Procedure: Patient remained supine position. Timeout was performed correct patient correct procedure correct site was verified. Area was prepped and draped in usual sterile fashion local anesthetic was used to anesthetize skin and subcutaneous tissues around the right groin over the area of fluctuance. Follow -up blade scalpel was used to make a 2 cm incision directly over the fluctuance small amount of purulent drainage was noted hemostat was used to break up all loculations gauze was used to pack. Patient artery procedure well no apparent complications
[2017-12-29] MEDS: LEVOFLOXACIN 500MG-D5W PMX 500 MG in DEXTROSE/WATER 1 100ML.BAG IVPB SCH (13:55)
[2017-12-29 15:47] LABS: Glucose,Whole Blood 65 mg/dL (75-99)
[2017-12-29 15:47] LABS: Glucose,Whole Blood 38 mg/dL (75-99)
[2017-12-29 16:03] LABS: Glucose,Whole Blood 68 mg/dL (75-99)
[2017-12-29 16:44] LABS: Glucose,Whole Blood 86 mg/dL (75-99)
[2017-12-29 16:44] LABS: Glucose,Whole Blood 115 mg/dL (75-99)
[2017-12-29] MEDS: WARFARIN 5 MG TAB PO SCH (17:07)
[2017-12-29] MEDS: ATORVASTATIN 20 MG TAB PO SCH (20:54)
[2017-12-29] MEDS: INSULIN DETEMIR 100 UNIT/ML 10 ML VIAL SQ SCH (20:55)
[2017-12-29 20:57] LABS: Glucose,Whole Blood 163 mg/dL (75-99)
[2017-12-30 05:57] LABS: Basophils % (A) 0 %; Eosinophils # (A) 0.4 k/uL (0-0.7); Eosinophils % (A) 6 %; HGB 12.1 gm/dL (11.4-16.0); Hypochromasia Slight; Lymphocytes # (A) 1.8 k/uL (1.0-4.8); Lymphocytes % (A) 29 %; MCH 27.9 pg (25.0-35.0); MCHC 32.7 g/dL (31.0-37.0); MCV 85.3 fL (80.0-100.0); Mean Platelet Volume 8.5; Monocytes # (A) 0.2 k/uL (0-1.0); Monocytes % (A) 4 %; Neutrophils # (A) 3.7 k/uL (1.3-7.7); Neutrophils % (A) 60 %; Platelet Count 181 k/uL (150-450); RBC 4.33 m/uL (3.80-5.40); RDW 15.4 % (11.5-15.5); WBC 6.2 k/uL (3.8-10.6)
[2017-12-30 05:58] LABS: Glucose,Whole Blood 143 mg/dL (75-99)
[2017-12-30 06:18] LABS: Albumin 3.3 g/dL (3.5-5.0); Calcium 9.5 mg/dL (8.4-10.2); Potassium 4.7 mmol/L (3.5-5.1); Total Bilirubin 0.4 mg/dL (0.2-1.3); Total Protein 6.1 g/dL (6.3-8.2)
[2017-12-30] MEDS: PANTOPRAZOLE 40 MG TABLET PO SCH (06:47)
[2017-12-30] MEDS: INSULIN ASPART 100 UNIT/ML 1 ML 10 ML VIAL SQ SCH ×2 (06:51)
[2017-12-30] MEDS: IPRATROPIUM-ALBUTEROL 3 ML NEB INHALATION SCH ×2 (07:42→10:49)
[2017-12-30] MEDS: METOCLOPRAMIDE 10 MG TAB PO SCH (08:10)
[2017-12-30] MEDS: ASPIRIN 81 MG PO SCH (08:10)
[2017-12-30] MEDS: NICOTINE 14MG/24HR PATCH TRANSDERM SCH (08:10)
[2017-12-30] MEDS: LEVOFLOXACIN 500MG-D5W PMX 500 MG in DEXTROSE/WATER 1 100ML.BAG IVPB SCH (08:10)
[2017-12-30] MEDS: POTASSIUM CHLORIDE ER 10 MEQ TAB.ER.PRT PO SCH (08:11)
[2017-12-30] MEDS: CYANOCOBALAMIN-FA-PYRIDOXINE 1 EACH TAB PO SCH (08:11)
[2017-12-30] MEDS: DULoxetine HCL 30 MG CAPSULE.DR PO SCH (08:11)
[2017-12-30] MEDS: LINAGLIPTIN 5 MG TABLET PO SCH (08:11)
[2017-12-30] MEDS: metFORMIN 500 MG TAB PO SCH (08:11)
[2017-12-30] MEDS: GABAPENTIN 400 MG CAP PO SCH (08:11)
[2017-12-30 09:42] VITALS: BP 115/67; PULSE 83; RESP 16; TEMP 97.5
[2017-12-30 10:41] LABS: INR 2.5 (<1.2); Prothrombin Time 22.3 sec (9.0-12.0)
--- NOTE | 2017-12-30 10:43 | P.DS ---
Providers Date of admission: 12/26/17 19:43 Attending physician: Ramirez Balderas Consults: 12/26/17 19:43 Consult Physician Stat Consulting Provider: Ramirez Vu Reason/Comments: Sepsis Do you want consulting provider notified?: Yes 12/29/17 08:28 Consult Physician Routine Consulting Provider: Zaid Maddox Consult Reason/Comments: R groin Abscess need I@D Do you want consulting provider notified?: Yes Primary care physician: Ramirez [facility] Course: Principal diagnosis: Sepsis, right groin abscess, right big toe diabetic foot, type 2 diabetes not controlled, advance CAD, COPD, chronic DVT and PE, PAD, hypertension. This is a 57-year-old female patient of Dr. Balderas with history of CAD , with cardiac stent in May 2016,24/05 ICA, followed by 2 other stents 1 in the LAD in 2011 the other one in the obtuse marginal branch in 2011 as well hypertension and COPD diabetes mellitus type 2, previous multiple DVT and PE requiring chronic anticoagulation followed by Dr. Bill, patient was recently hospitalized at [facility] in 02/28/2017 after she developed to have a significant lightheadedness , neuro workup that was negative including ultrasound of the carotid echocardiogram and EEG along with a computed tomography scan of the brain that showed benign meningioma, seen in March 2017 for early osteomyelitis came back in August 2017 for right great toe ulcer with significant cellulitis and questionable ostiomyelitis present. Has been following Dr. Noel and the wound healing Center and her last appointment was on December 23 and she underwent debridement at that time. Local wound care is medihoney and she was to return in 3 weeks. Patient states that she had sudden onset of symptoms yesterday. She was out working in the yard and was feeling fine but all of a sudden started feeling shaky and feeling bad in general she had some confusions and chills and was very drowsy and having difficulty staying awake. Patient does have an abscess to her right groin which she states has been very large and draining on its own. Patient presented to [facility] emergency center with a temperature of 104.4, heart rate 106,, blood sugar was 147. Initial lactic acid 2.6 and repeat was 1.6. Urinalysis was clear nitrate and leukoesterase negative. INR is 1.8. Troponin 0.012. Urine drug screen was positive for opiates. CAT scan of the brain was negative. Chest x-ray showed no acute cardio pulmonary disease. CT of the abdomen and pelvis with contrast revealed renal cyst. Low-density right adrenal mass is unchanged and suggestive benign etiology. Right kidney renal collecting system is increased slightly compared to old exam. No stones do not believe there is a renal obstruction. New bilateral mild subsegmental atelectasis at the lung bases. Dilated subcutaneous veins anteriorly in the lower abdomen probably due to collateral lateral flow from occluded left iliac vein stent the veins appear increased in size compared to last CT of October 21. The right groin abscess was apparently drained in the emergency center as it was described as being quite large at that time and is now about 2 x 2 cm. Patient was given Levaquin and ceftriaxone and 2 L of IV fluid and admitted to the selective care unit where there is a consult in place with Dr. Vu for sepsis. Urine blood and wound cultures have been obtained. She is much better today not up tended not having any further fever or chills right groin abscess has been better lactic acid has improved still well hydrated awaiting for the final blood culture still awaiting to change her antibiotic depend on the culture result next 24 hours. 12/29: Patient abscess in the right groin area not draining any more but still had to time 2 cm abscess we will consult general surgery for I and D El continue on current IV antibiotics, culture from the wound area came back positive for strep agalactia group B been well treated with antibiotics. 12/30: Patient abscess was drained with Dr. maddox and has been responding to current antibiotic well so far patient will be switched to doxycycline her infection was clear as a staph, continue topical care and continue wound care on the right big toe patient will be able to go home today to follow as an outpatient in the office and back to the wound clinic. Her mental status is completely back to normal mobility has been much better and pain is well controlled on her home meds. Assessment and Plan Plan: 1. Sepsis with lactic acidosis, metabolic encephalopathy, secondary to infection has been much better after starting antibiotic and hydration patient has improved. Source of infection still the right groin and possible diabetic foot with ulcerated area in the right big toe. The right groin still have abscess 23 cm will be drained on 12/29, still been treated for staph infection will continue patient on doxycycline for total of 10 days.. 2. Diabetes mellitus type 2 with recent hemoglobin A1c of 10.9. Continue Levemir 40 units at bedtime, NovoLog 15 units with meals and scale before meals and at bedtime, try gentle for Januvia. Patient still noncompliant her blood sugar quite bit high with A1c 10.9 she is seen by endocrinology.. 3. Coronary artery disease status post multiple PCI with ischemic cardiomyopathy . Patient seen cardiology on regular basis. Continue patient on Crestor, aspirin 81 mg daily. orally once every day as well as nitroglycerin as needed along with aspirin 81 mg orally once every day. 4. Hypertension and hypertensive cardiovascular disease. Continue Lasix 10 mg every 48 hours. Patient has been recently taken off beta nisa due to hypotension. 5. Chronic DVT and PEs. Continue patient on Coumadin keep her INR. 2-3. INR is subtherapeutic. 6. Chronic tobacco use and dependence with COPD. smoking cessation. Nicotine patch 7. Hyperlipidemia. Continue patient on Lipitor 20 mg orally once every day. 8. Gastritis. Continue patient on Protonix 40 mg orally once every day. 9. Severe PAD under the care of Dr. Villarreal and Dr. Bill, patient underwent PTBA in the past by Dr. Villarreal at the [facility]. 10. Chronic diabetic ulcer to the right great toe. Patient follows in the wound healing Center under the care of Dr. Noel. Continue topical care and will be going back to the wound clinic earlier this week 11. Diabetic polyneuropathy. Continue gabapentin 800 mg orally twice every day. Patient is very stable to be discharged home topical care in the drained abscess and continue wound care for her toe Dr. Noel. Patient Condition at Discharge: Good Plan - Discharge Summary Discharge Rx Participant: No New Discharge Prescriptions: New Doxycycline Hyclate 100 mg PO BID #30 tab Nicotine 14Mg/24Hr Patch [Habitrol] 1 patch TRANSDERM DAILY #30 patch Continue Gabapentin 800 mg PO BID DULoxetine HCL [Cymbalta] 30 mg PO QAM Ergocalciferol [Vitamin D2 (DRISDOL)] 50,000 unit PO Q14D metFORMIN HCL 1,000 mg PO BID Insulin Lispro [humaLOG Kwikpen] 15 unit SQ AC-TID Rosuvastatin [Crestor] 10 mg PO HS #0 Insulin Glargine,Hum.rec.anlog [Lantus Solostar] 40 unit SQ HS Warfarin [Coumadin] 2.5 mg PO TUFR #0 Potassium Chloride [K-Tab ER] 10 meq PO BID HYDROcodone/APAP 10-325MG [[place] 10-325] 1 tab PO QID PRN PRN Reason: Pain Aspirin 81 mg PO QAM Metoclopramide [Reglan] 10 mg PO TID #90 tab sitaGLIPtin PHOSPHATE [Januvia] 50 mg PO DAILY #30 tab B12/Levomefolate Calcium/B-6 [Foltx Tablet] 1 tab PO DAILY Warfarin Sodium [Coumadin] 5 mg PO SUMOWETHSA Furosemide [Lasix] 10 mg PO Q48H Discontinued Moxifloxacin HCl 400 mg PO BID Discharge Medication List Gabapentin 800 mg PO BID 12/14/13 [History] DULoxetine HCL [Cymbalta] 30 mg PO QAM 07/15/14 [History] Ergocalciferol [Vitamin D2 (DRISDOL)] 50,000 unit PO Q14D 08/26/15 [History] Insulin Lispro [humaLOG Kwikpen] 15 unit SQ AC-TID 08/26/15 [History] metFORMIN HCL 1,000 mg PO BID 08/26/15 [History] Rosuvastatin [Crestor] 10 mg PO HS #0 10/01/16 [Rx] Insulin Glargine,Hum.rec.anlog [Lantus Solostar] 40 unit SQ HS 01/18/17 [History ] Warfarin [Coumadin] 2.5 mg PO TUFR #0 02/28/17 [Rx] Potassium Chloride [K-Tab ER] 10 meq PO BID 03/31/17 [History] HYDROcodone/APAP 10-325MG [[place] 10-325] 1 tab PO QID PRN 08/07/17 [History] Aspirin 81 mg PO QAM 10/21/17 [History] Metoclopramide [Reglan] 10 mg PO TID #90 tab 10/22/17 [Rx] sitaGLIPtin PHOSPHATE [Januvia] 50 mg PO DAILY #30 tab 10/22/17 [Rx] B12/Levomefolate Calcium/B-6 [Foltx Tablet] 1 tab PO DAILY 12/02/17 [History] Furosemide [Lasix] 10 mg PO Q48H 12/26/17 [History] Warfarin Sodium [Coumadin] 5 mg PO SUMOWETHSA 12/26/17 [History] Doxycycline Hyclate 100 mg PO BID #30 tab 12/30/17 [Rx] Nicotine 14Mg/24Hr Patch [Habitrol] 1 patch TRANSDERM DAILY #30 patch 12/30/17 [ Rx] Follow up Appointment(s)/Referral(s): Ramirez Balderas MD [Primary Care Provider] - 1-2 days (I am unable to make an appointment at this time. Please call to make a follow up appointment.) Efraín Noel MD [STAFF PHYSICIAN] - 1 Week (I am unable to make an appointment at this time. Please call to make a follow up appointment.) Patient Instructions/Handouts: Sepsis (GEN), Group B Strep (DC)
[2017-12-30] MEDS: PIPERACILLIN-TAZOBACTAM 3.375 GM in DEXTROSE/WATER 1 50ML.BAG IVPB SCH (10:44)
[2018-01-05] MEDS ORDERED: ERGOCALCIFEROL 50,000 UNIT CAP PO SCH (09:00)
== END 2017-12-30 12:02 | disposition home or self-care (01) | DRG 871 ==
LOC: EC 16:58 → 6SEL 19:43
PROVIDERS: ADMIT Internal Medicine Geriatric Medicine; ATTEND Internal Medicine Geriatric Medicine
PROC: 0J9C0ZX Drainage of Pelvic Region Subcutaneous Tissue and Fascia, Open Approach, Diagnostic (ICD-10-PCS; principal; 2017-12-29)
DX: A41.9 Sepsis, unspecified organism (principal); G93.41 Metabolic encephalopathy; L02.214 Cutaneous abscess of groin; J98.11 Atelectasis; F33.9 Major depressive disorder, recurrent, unspecified; E87.2 Acidosis; L03.314 Cellulitis of groin; E11.42 Type 2 diabetes mellitus with diabetic polyneuropathy; E11.51 Type 2 diabetes mellitus with diabetic peripheral angiopathy without gangrene; E11.621 Type 2 diabetes mellitus with foot ulcer; I95.9 Hypotension, unspecified; L97.519 Non-pressure chronic ulcer of other part of right foot with unspecified severity; N28.1 Cyst of kidney, acquired; I11.9 Hypertensive heart disease without heart failure; K76.0 Fatty (change of) liver, not elsewhere classified; B95.8 Unspecified staphylococcus as the cause of diseases classified elsewhere; B95.1 Streptococcus, group B, as the cause of diseases classified elsewhere; E27.9 Disorder of adrenal gland, unspecified; I25.5 Ischemic cardiomyopathy; E78.5 Hyperlipidemia, unspecified; K29.70 Gastritis, unspecified, without bleeding; I25.10 Atherosclerotic heart disease of native coronary artery without angina pectoris; G89.4 Chronic pain syndrome; M51.16 Intervertebral disc disorders with radiculopathy, lumbar region; J44.9 Chronic obstructive pulmonary disease, unspecified; D32.9 Benign neoplasm of meninges, unspecified; K21.9 Gastro-esophageal reflux disease without esophagitis; I25.2 Old myocardial infarction; M19.91 Primary osteoarthritis, unspecified site; F17.210 Nicotine dependence, cigarettes, uncomplicated; Z91.19 Patient's noncompliance with other medical treatment and regimen; Z71.6 Tobacco abuse counseling; Z79.82 Long term (current) use of aspirin; Z79.4 Long term (current) use of insulin; Z79.2 Long term (current) use of antibiotics; Z79.01 Long term (current) use of anticoagulants; Z79.899 Other long term (current) drug therapy; Z86.73 Personal history of transient ischemic attack (TIA), and cerebral infarction without residual deficits; Z86.718 Personal history of other venous thrombosis and embolism; Z86.711 Personal history of pulmonary embolism; Z87.42 Personal history of other diseases of the female genital tract; Z87.440 Personal history of urinary (tract) infections; Z95.5 Presence of coronary angioplasty implant and graft; Z95.828 Presence of other vascular implants and grafts; Z85.828 Personal history of other malignant neoplasm of skin; Z98.51 Tubal ligation status; Z88.1 Allergy status to other antibiotic agents; Z82.49 Family history of ischemic heart disease and other diseases of the circulatory system; Z80.41 Family history of malignant neoplasm of ovary; Z83.3 Family history of diabetes mellitus
CPT/HCPCS: 36415; 70450; 71046; 74177; 80053; 80306; 81003; 83036; 83605; 83735; 84484; 85025; 85027; 85610; 85730; 87040; 87070; 87086; 87205; 93005; 94640; 94760; 96361; 96365; 96375; 99291

== ENCOUNTER 2018-08-27 17:31 | Observation (INO) | payer MEDICARE, OTHER ==
[2018-08-27 18:33] LABS: Anisocytosis Slight; Basophils % (A) 0 %; Eosinophils # (A) 0.3 k/uL (0-0.7); Eosinophils % (A) 3 %; HCT 41.9 % (34.0-46.0); HGB 14.1 gm/dL (11.4-16.0); Lymphocytes # (A) 1.8 k/uL (1.0-4.8); Lymphocytes % (A) 19 %; MCH 29.1 pg (25.0-35.0); MCHC 33.7 g/dL (31.0-37.0); MCV 86.2 fL (80.0-100.0); Mean Platelet Volume 7.7; Monocytes # (A) 0.3 k/uL (0-1.0); Monocytes % (A) 4 %; Neutrophils # (A) 6.8 k/uL (1.3-7.7); Neutrophils % (A) 74 %; Platelet Count 169 k/uL (150-450); RBC 4.86 m/uL (3.80-5.40); RDW 16.1 % (11.5-15.5); WBC 9.3 k/uL (3.8-10.6)
--- NOTE | 2018-08-27 18:34 | ED ---
General Adult HPI - General Chief complaint: Chest Pain Stated complaint: CHEST PAIN, HEARTBURN, RADIATING LEFT BREAST Time Seen by Provider: 08/27/18 18:09 Source: patient, family, RN notes reviewed Mode of arrival: wheelchair Limitations: no limitations - History of Present Illness Initial comments: Patient is a pleasant 58-year-old female presenting to the emergency Department with complaints of chest discomfort. Onset of symptoms was 3-4 days ago. Patient has burning in the left side of her chest. Discomfort is somewhat positional. Patient does have some associated shortness of breath. No nausea vomiting. No diaphoresis. Patient is also had abdominal distention increasing over the past 3-4 days. Patient states it feels full. Patient has had some decrease amount of bowel movements however still having some bowel movements. - Related Data Home Medications Medication Instructions Recorded Confirmed Gabapentin 800 mg PO BID 12/14/13 08/27/18 DULoxetine HCL [Cymbalta] 30 mg PO DAILY 07/15/14 08/27/18 Ergocalciferol [Vitamin D2 50,000 unit PO Q14D 08/26/15 08/27/18 (DRISDOL)] Insulin Lispro [humaLOG Kwikpen] See Protocol SQ AC-TID 08/26/15 08/27/18 metFORMIN HCL 1,000 mg PO BID 08/26/15 08/27/18 Insulin Glargine,Hum.rec.anlog 70 unit SQ HS 01/18/17 08/27/18 [Lantus Solostar] Potassium Chloride [K-Tab ER] 10 meq PO BID 03/31/17 08/27/18 HYDROcodone/APAP 10-325MG [[place] 1 tab PO QID PRN 08/07/17 08/27/18 10-325] Aspirin 81 mg PO DAILY 10/21/17 08/27/18 Furosemide [Lasix] 10 mg PO Q48H 12/26/17 08/27/18 Warfarin Sodium [Coumadin] 5 mg PO HS 12/26/17 08/27/18 Cyanocobalamin [Vitamin B-12] 500 mcg PO DAILY 08/27/18 08/27/18 Warfarin [Coumadin] 2.5 mg PO FR 08/27/18 08/27/18 Previous Rx's Medication Instructions Recorded Rosuvastatin [Crestor] 10 mg PO HS #0 10/01/16 Allergies Allergy/AdvReac Type Severity Reaction Status Date / Time vancomycin Allergy Rash/Hives/and Verified 08/27/18 18:13 vomiting diarrhea Review of Systems ROS Statement: Those systems with pertinent positive or pertinent negative responses have been documented in the HPI. ROS Other: All systems not noted in ROS Statement are negative. Constitutional: Denies: fever Eyes: Denies: eye pain ENT: Denies: ear pain Respiratory: Denies: cough Cardiovascular: Reports: as per HPI, chest pain Endocrine: Denies: fatigue Gastrointestinal: Reports: as per HPI, abdominal pain. Denies: vomiting Genitourinary: Denies: dysuria Musculoskeletal: Denies: back pain Skin: Denies: rash Neurological: Denies: weakness Past Medical History Past Medical History: Coronary Artery Disease (CAD), Cancer, Chest Pain / Angina , COPD, CVA/TIA, Diabetes Mellitus, Deep Vein Thrombosis (DVT), GERD/Reflux, Hyperlipidemia, Hypertension, Myocardial Infarction (ME), Osteoarthritis (OA), Pulmonary Embolus (PE) Additional Past Medical History / Comment(s): states "b/p and heart rate running low", CVA on 11-16-16-Increased fatigue,SOB with activity,Loss of appetitie,pain in stomach after eating.Mutiple DVT,mesentaric thrombosis x2,hx GENITAL WARTS, neuropathy,pad,chronic pain syndrome,ddd lumbar region w/ radiculopathy, fell jun 2015 tore rt rotator cuff, pancreatitis, uti, non alcoholic fatty liver, skin cancer removed from neck.poly neuropathy wound rt great toe -goes to the [facility] on mondays. t toe Last Myocardial Infarction Date:: 2010 History of Any Multi-Drug Resistant Organisms: None Reported Past Surgical History: Section, Heart Catheterization, Heart Catheterization With Stent, Orthopedic Surgery, Tonsillectomy, Tubal Ligation Additional Past Surgical History / Comment(s): 11 Stents in left leg, fistula left thigh, full mouth teeth extraction, TRAPEASE VENA CAVA FILTER, carpel tunnel, heart stents x4 rca and lad, tumor removal from uterus. Genital warts removed, INGRID.skin cancer removed from neck Past Anesthesia/Blood Transfusion Reactions: No Reported Reaction Date of Last Stent Placement:: May 2016 Past Psychological History: Depression, Panic Disorder Smoking Status: Current every day smoker Past Alcohol Use History: None Reported Past Drug Use History: None Reported - Past Family History Mother Family Medical History: Cancer, Congestive Heart Failure (CHF), Diabetes Mellitus, Myocardial Infarction (ME) Additional Family Medical History / Comment(s): Ovarian CA. Mother at age 69. Father Family Medical History: Coronary Artery Disease (CAD), Myocardial Infarction (ME ) Additional Family Medical History / Comment(s): Father at age 70. Sister(s) Family Medical History: Myocardial Infarction (ME) Additional Family Medical History / Comment(s): Patient has one sister with myocardial infarction at age 55. Son(s) Family Medical History: Deep Vein Thrombosis (DVT), Pulmonary Embolus Additional Family Medical History / Comment(s): Patient has 2 sons and one has history of DVT and pulmonary embolism. Patient does not have any daughters. Patient does not have any brothers. General Exam Limitations: no limitations General appearance: alert, in no apparent distress Head exam: Present: atraumatic Eye exam: Present: normal appearance, PERRL ENT exam: Present: normal oropharynx Neck exam: Present: normal inspection Respiratory exam: Present: normal lung sounds bilaterally. Absent: chest wall tenderness Cardiovascular Exam: Present: regular rate, normal rhythm Expanded Peripheral pulses: 2+: Radial (R), Radial (L), Dorsalis Pedis (R), Dorsalis Pedis (L) GI/Abdominal exam: Present: soft, tenderness (Mild to moderate diffuse tenderness, more so left lower quadrant), normal bowel sounds. Absent: distended, guarding, rebound, rigid, pulsatile mass Extremities exam: Present: normal inspection Neurological exam: Present: alert Psychiatric exam: Present: normal affect, normal mood Skin exam: Present: normal color Course Vital Signs 08/27/18 08/27/18 08/27/18 17:34 18:40 19:00 Temperature 98.2 F Pulse Rate 90 89 73 Respiratory 18 20 19 Rate Blood Pressure 139/85 115/79 O2 Sat by Pulse 100 95 Oximetry 08/27/18 19:30 Temperature Pulse Rate 75 Respiratory 18 Rate Blood Pressure 102/60 O2 Sat by Pulse 95 Oximetry EKG Findings - EKG Comments: EKG Findings:: Normal sinus rhythm 80. PA 148. QRS 84. QT 362. QTC 417. Left axis. Normal QRS. No acute ST change. Medical Decision Making - Medical Decision Making Patient reevaluated and states chest discomfort has improved. Patient is still having some abdominal discomfort. Case was discussed in detail with Dr. Marx, who will admit covering for Dr. Balderas. Computed tomography scan of the abdomen has been ordered. - Lab Data Result diagrams: 08/27/18 17:55 08/27/18 17:55 Lab Results 08/27/18 08/27/18 08/27/18 Range/Units 17:55 17:55 17:55 WBC 9.3 (3.8-10.6) k/uL RBC 4.86 (3.80-5.40) m/uL Hgb 14.1 (11.4-16.0) gm/dL Hct 41.9 (34.0-46.0) % MCV 86.2 (80.0-100.0) fL MCH 29.1 (25.0-35.0) pg MCHC 33.7 (31.0-37.0) g/dL RDW 16.1 H (11.5-15.5) % Plt Count 169 (150-450) k/uL Neutrophils % 74 % Lymphocytes % 19 % Monocytes % 4 % Eosinophils % 3 % Basophils % 0 % Neutrophils # 6.8 (1.3-7.7) k/uL Lymphocytes # 1.8 (1.0-4.8) k/uL Monocytes # 0.3 (0-1.0) k/uL Eosinophils # 0.3 (0-0.7) k/uL Basophils # 0.0 (0-0.2) k/uL Anisocytosis Slight PT (9.0-12.0) sec INR (<1.2) APTT (22.0-30.0) sec D-Dimer (<0.60) mg/L FEU Sodium 137 (137-145) mmol/L Potassium 5.0 (3.5-5.1) mmol/L Chloride 100 (98-107) mmol/L Carbon Dioxide 25 (22-30) mmol/L Anion Gap 12 mmol/L BUN 16 (7-17) mg/dL Creatinine 0.91 (0.52-1.04) mg/dL Est GFR (CKD-EPI)AfAm 81 (>60 ml/min/1.73 sqM) Est GFR (CKD-EPI)NonAf 70 (>60 ml/min/1.73 sqM) Glucose 397 H (74-99) mg/dL Calcium 9.5 (8.4-10.2) mg/dL Magnesium 1.2 L (1.6-2.3) mg/dL Total Bilirubin 0.9 (0.2-1.3) mg/dL AST 41 H (14-36) U/L ALT 33 (9-52) U/L Alkaline Phosphatase 51 (38-126) U/L Total Creatine Kinase 46 (30-135) U/L CK-MB (CK-2) 0.6 (0.0-2.4) ng/mL CK-MB (CK-2) Rel Index 1.3 Troponin I <0.012 (0.000-0.034) ng/mL Total Protein 6.6 (6.3-8.2) g/dL Albumin 3.6 (3.5-5.0) g/dL Amylase (30-110) U/L Lipase (23-300) U/L 08/27/18 08/27/18 08/27/18 Range/Units 17:55 17:55 17:55 WBC (3.8-10.6) k/uL RBC (3.80-5.40) m/uL Hgb (11.4-16.0) gm/dL Hct (34.0-46.0) % MCV (80.0-100.0) fL MCH (25.0-35.0) pg MCHC (31.0-37.0) g/dL RDW (11.5-15.5) % Plt Count (150-450) k/uL Neutrophils % % Lymphocytes % % Monocytes % % Eosinophils % % Basophils % % Neutrophils # (1.3-7.7) k/uL Lymphocytes # (1.0-4.8) k/uL Monocytes # (0-1.0) k/uL Eosinophils # (0-0.7) k/uL Basophils # (0-0.2) k/uL Anisocytosis PT 21.0 H (9.0-12.0) sec INR 2.1 H (<1.2) APTT 31.8 H (22.0-30.0) sec D-Dimer <0.17 (<0.60) mg/L FEU Sodium (137-145) mmol/L Potassium (3.5-5.1) mmol/L Chloride (98-107) mmol/L Carbon Dioxide (22-30) mmol/L Anion Gap mmol/L BUN (7-17) mg/dL Creatinine (0.52-1.04) mg/dL Est GFR (CKD-EPI)AfAm (>60 ml/min/1.73 sqM) Est GFR (CKD-EPI)NonAf (>60 ml/min/1.73 sqM) Glucose (74-99) mg/dL Calcium (8.4-10.2) mg/dL Magnesium (1.6-2.3) mg/dL Total Bilirubin (0.2-1.3) mg/dL AST (14-36) U/L ALT (9-52) U/L Alkaline Phosphatase (38-126) U/L Total Creatine Kinase (30-135) U/L CK-MB (CK-2) (0.0-2.4) ng/mL CK-MB (CK-2) Rel Index Troponin I (0.000-0.034) ng/mL Total Protein (6.3-8.2) g/dL Albumin (3.5-5.0) g/dL Amylase 53 (30-110) U/L Lipase 176 (23-300) U/L Disposition Clinical Impression: Chest pain, Abdominal pain Disposition: ADMITTED IP TO THIS HOSP Is patient prescribed a controlled substance at d/c from ED?: No Referrals: Ramirez Balderas MD [Primary Care Provider] - 1-2 days Decision Time: 21:07
[2018-08-27 18:38] LABS: Albumin 3.6 g/dL (3.5-5.0); Calcium 9.5 mg/dL (8.4-10.2); Magnesium 1.2 mg/dL (1.6-2.3); Total Bilirubin 0.9 mg/dL (0.2-1.3); Total Protein 6.6 g/dL (6.3-8.2)
[2018-08-27 18:40] LABS: Creatine Kinase 46 U/L (30-135); INR 2.1 (<1.2)
[2018-08-27 18:41] LABS: Partial Thromboplastin Time 31.8 sec (22.0-30.0)
[2018-08-27] MEDS ORDERED: NITROGLYCERIN SL TABS 0.4 MG TAB SUBLINGUAL STA ×3 (18:46)
[2018-08-27] MEDS ORDERED: ASPIRIN 81 MG PO STA (18:46)
[2018-08-27 18:53] LABS: Creatine Kinase MB 0.6 ng/mL (0.0-2.4); Troponin I <0.012 ng/mL (0.000-0.034)
--- NOTE | 2018-08-27 19:05 | XR ---
EXAMINATION: XR chest 2V DATE AND TIME: 08/27/2018 6:35 PM CLINICAL INDICATION: PHH; Chest Pain TECHNIQUE: Departmental protocol COMPARISON: 12/26/2017 FINDINGS: The lungs are clear. The pleural spaces are negative. The cardiac silhouette is not enlarged. The remainder of the mediastinal silhouette is unremarkable. The skeletal structures and soft tissues are negative for acute findings. IMPRESSION: NO ACUTE PROCESS.
[2018-08-27] MEDS: MAGNESIUM SULFATE-D5W PMX 1 GM in DEXTROSE/WATER 1 100ML.BAG IVPB SCH ×2 (19:09→20:16)
[2018-08-27 19:10] LABS: Amylase 53 U/L (30-110); Lipase 176 U/L (23-300)
--- NOTE | 2018-08-27 19:38 | XR ---
EXAMINATION TYPE: XR KUB 2 views DATE OF EXAM: 08/27/2018 COMPARISON: NONE HISTORY: Abdominal pain and distention TECHNIQUE: 2 upright views of FINDINGS: The visualized lung bases and pleural spaces are negative. There is no pneumoperitoneum or pneumatosis. There is no bowel obstruction. No acute skeletal or soft tissue findings. Caval filter and abdominal pelvic vascular stents noted. IMPRESSION: No acute radiographic process.
[2018-08-27] MEDS ORDERED: NITROGLYCERIN SL TABS 0.4 MG TAB SUBLINGUAL PRN (21:08)
--- NOTE | 2018-08-27 21:50 | CT ---
EXAMINATION TYPE: CT abdomen pelvis w con DATE OF EXAM: 08/27/2018 COMPARISON: 12/27/1979 HISTORY: Abdominal pain. CT DLP: 1298.8 mGycm Automated exposure control for dose reduction was used. TECHNIQUE: Helical acquisition of images was performed from the lung bases through the pelvis. CONTRAST: Performed without Oral Contrast and with IV Contrast, patient injected with 100ml mL of Iso frieda 300. FINDINGS: LUNG BASES: No acute process, but coronary calcifications are noted. LIVER/GB: No significant abnormality is appreciated. PANCREAS: No significant abnormality is seen. SPLEEN: No significant abnormality is seen. ADRENALS: Previously seen right adrenal nodule is unchanged KIDNEYS: No significant abnormality is seen. FREE AIR: No free air is visualized. No peritoneal fluid. RETROPERITONEAL ADENOPATHY: None visualized REPRODUCTIVE ORGANS: No significant abnormality is seen URINARY BLADDER: No significant abnormality is seen. PELVIC ADENOPATHY: None visualized. OSSEOUS STRUCTURES: No significant abnormality is seen. BOWEL: No significant abnormality is seen. IMPRESSION: NO ACUTE PROCESS.
[2018-08-27 22:04] LABS: Glucose,Whole Blood 213 mg/dL (75-99)
[2018-08-27] MEDS ORDERED: INSULIN DETEMIR (LEVEMIR) 100 UNIT/ML SYR SQ SCH (23:30)
[2018-08-27 23:34] LABS: Creatine Kinase MB 0.4 ng/mL (0.0-2.4); Troponin I <0.012 ng/mL (0.000-0.034)
[2018-08-27] MEDS ORDERED: ATORVASTATIN 20 MG TAB PO SCH (23:38)
[2018-08-27 23:39] LABS: Creatine Kinase 40 U/L (30-135)
[2018-08-27] MEDS ORDERED: WARFARIN 5 MG TAB PO SCH ×2 (23:39→23:45)
[2018-08-27] MEDS ORDERED: MELATONIN 5 MG TABLET PO STA (23:47)
[2018-08-28] MEDS: DULoxetine HCL 30 MG CAPSULE.DR PO SCH ×2 (00:05→12:01)
[2018-08-28] MEDS: GABAPENTIN 400 MG CAP PO SCH ×2 (00:05→12:02)
[2018-08-28] MEDS: HYDROcodone/APAP 10-325MG 1 EACH TAB PO PRN ×2 (00:06→08:21)
[2018-08-28] MEDS: POTASSIUM CHLORIDE ER 10 MEQ TAB.ER.PRT PO SCH ×2 (00:06→12:03)
[2018-08-28] MEDS: INSULIN ASPART (NovoLOG) 100 UNIT/ML VIAL SQ SCH ×3 (00:07→11:59)
[2018-08-28] MEDS: NITROGLYCERIN OINT 1 INCH/GM PACKET TOPICAL SCH ×2 (00:14→03:28)
[2018-08-28 06:33] LABS: Cholesterol 124 mg/dL (<200); HDL Cholesterol 36 mg/dL (40-60); LDL Cholesterol,Calculated 31 mg/dL (0-99); Triglycerides 285 mg/dL (<150)
[2018-08-28 06:39] LABS: Creatine Kinase 36 U/L (30-135)
[2018-08-28 06:51] LABS: Creatine Kinase MB 0.4 ng/mL (0.0-2.4); Troponin I <0.012 ng/mL (0.000-0.034)
[2018-08-28 07:54] LABS: Glucose,Whole Blood 203 mg/dL (75-99)
[2018-08-28 08:05] LABS: INR 1.9 (<1.2); Prothrombin Time 18.6 sec (9.0-12.0)
[2018-08-28] MEDS ORDERED: DOBUTamine DRIP for NUC MED 500 MG in DEXTROSE/WATER 1 250ML.BAG IV ONE (08:52)
[2018-08-28] MEDS ORDERED: POTASSIUM CHLORIDE ER 10 MEQ TAB.ER.PRT PO SCH (09:00)
[2018-08-28] MEDS ORDERED: CYANOCOBALAMIN 500 MCG TAB PO SCH (09:00)
[2018-08-28] MEDS ORDERED: ASPIRIN 81 MG PO SCH (09:00)
[2018-08-28] MEDS ORDERED: FUROSEMIDE 20 MG TAB PO SCH (09:00)
[2018-08-28] MEDS ORDERED: DULoxetine HCL 30 MG CAPSULE.DR PO SCH (09:00)
[2018-08-28] MEDS ORDERED: ASPIRIN 325 MG TAB PO SCH (09:00)
[2018-08-28] MEDS ORDERED: CAFFEINE CITRATE 60 MG/3 ML VIAL IV PRN (09:06)
[2018-08-28] MEDS ORDERED: REGADENOSON 0.4 MG/5 ML SYRINGE IV ONE (09:06)
--- NOTE | 2018-08-28 09:35 | ECHOF ---
Referral Reason: MEASUREMENTS -------- HEIGHT: 170.2 cm WEIGHT: 93.0 kg BP: 109/70 RVIDd: 3.1 cm (< 3.3) IVSd: 1.2 cm (0.6 - 1.1) LVIDd: 3.9 cm (3.9 - 5.3) LVPWd: 1.0 cm (0.6 - 1.1) IVSs: 1.7 cm LVIDs: 2.3 cm LVPWs: 1.6 cm LAESV Index (A-L): 21.90 ml/m Ao Diam: 3.1 cm (2.0 - 3.7) AV Cusp: 1.6 cm (1.5 - 2.6) LA Diam: 2.8 cm (2.7 - 3.8) MV EXCURSION: 16.659 mm (> 18.000) MV EF SLOPE: 66 mm/s (70 - 150) EPSS: 1.3 cm MV E Jesus: 0.69 m/s MV DecT: 206 ms MV A Jesus: 0.79 m/s MV E/A Ratio: 0.87 RAP: 5.00 mmHg RVSP: 10.17 mmHg FINDINGS -------- Sinus rhythm. This was a technically good study. The left ventricular size is normal. There is borderline concentric left ventricular hypertrophy. Overall left ventricular systolic function is mildly impaired with, an EF between 45 - 50 %. Apica l inferior LV wall motion is hypokinetic. The right ventricle is normal in size and function. Normal LA size by volume 22+/-6 ml/m2. The right atrium is normal in size. The aortic valve is trileaflet, and appears structurally normal. No aortic stenosis or regurgitation. There is trace mitral regurgitation. Trace tricuspid regurgitation present. The right ventricular systolic pressure, as measured by Dopp ler, is 10.17mmHg. Pulmonic valve appears structurally normal. The aortic root size is normal. Normal inferior vena cava with normal inspiratory collapse consistent with estimated right atrial pre ssure of 5 mmHg. The pericardium is normal. CONCLUSIONS -------- 1. Sinus rhythm. 2. This was a technically good study. 3. The left ventricular size is normal. 4. There is borderline concentric left ventricular hypertrophy. 5. Overall left ventricular systolic function is mildly impaired with, an EF between 45 - 50 %. 6. Apical inferior LV wall motion is hypokinetic. 7. The right ventricle is normal in size and function. 8. Normal LA size by volume 22+/-6 ml/m2. 9. The right atrium is normal in size. 10. The aortic valve is trileaflet, and appears structurally normal. No aortic stenosis or regurgitat ion. 11. There is trace mitral regurgitation. 12. Trace tricuspid regurgitation present. 13. The right ventricular systolic pressure, as measured by Doppler, is 10.17mmHg. 14. Pulmonic valve appears structurally normal. 15. The aortic root size is normal. 16. Normal inferior vena cava with normal inspiratory collapse consistent with estimated right atrial pressure of 5 mmHg. 17. The pericardium is normal. WASTE MACHINE OPERATOR: Joanna Rogel RDCS
[2018-08-28] MEDS ORDERED: PANTOPRAZOLE 40 MG TABLET PO STA (09:50)
--- NOTE | 2018-08-28 09:57 | P.CRDCN ---
History of Present Illness History of present illness: This is Dr. Oconnor dictating a consult on this patient The patient was interviewed and examined by me IMPRESSION / ASSESSMENT: Patient presented with chest discomfort and heartburn-like symptoms with known coronary artery disease and known severe peripheral vascular disease PLAN: Lexiscan Cardiolite stress test and if this is normal she may go home from a cardiac standpoint and follow with her primary care physician and bill clerk HPI Recurrent chest discomfort, recurrent heartburn and upper abdominal discomfort ROS: No fever chills or rigors, no cough, phlegm or expectoration, no nausea, vomiting or diarrhea, no hematuria, dysuria, no musculoskeletal complaints, no strokes or seizures, no skin lesions. EXAMINATION: Blood pressure 100/64 mmHg Pulse rate in the 60s Afebrile Breath sounds are clear no rhonchi no crackles Heart sounds 1 normal no murmurs or gallop or rub Breath sounds are clear Extent is warm no edema REVIEW OF LABS, ECG & MEDICAL DATA 2-D echo reveals mildly reduced LV systolic function Twelve-lead ECG shows sinus rhythm with normal ST segments Follow-up ECG does not show any new ST segment abnormalities LDL 31 on statins triglycerides 295 INR 1.9 Cardiac enzymes are normal Past Medical History Past Medical History: Coronary Artery Disease (CAD), Cancer, Chest Pain / Angina , COPD, CVA/TIA, Diabetes Mellitus, Deep Vein Thrombosis (DVT), GERD/Reflux, Hyperlipidemia, Hypertension, Myocardial Infarction (ME), Osteoarthritis (OA), Pulmonary Embolus (PE) Additional Past Medical History / Comment(s): states "b/p and heart rate running low", CVA on 11-16-16-Increased fatigue,SOB with activity,Loss of appetitie,pain in stomach after eating.Mutiple DVT,mesentaric thrombosis x2,hx GENITAL WARTS, neuropathy,pad,chronic pain syndrome,ddd lumbar region w/ radiculopathy, fell jun 2015 tore rt rotator cuff, pancreatitis, uti, non alcoholic fatty liver, skin cancer removed from neck.poly neuropathy wound rt great toe -goes to the [facility] on mondays. t toe Last Myocardial Infarction Date:: 2010 History of Any Multi-Drug Resistant Organisms: None Reported Past Surgical History: Section, Heart Catheterization, Heart Catheterization With Stent, Orthopedic Surgery, Tonsillectomy, Tubal Ligation Additional Past Surgical History / Comment(s): 11 Stents in left leg, fistula left thigh, full mouth teeth extraction, TRAPEASE VENA CAVA FILTER, carpel tunnel, heart stents x4 rca and lad, tumor removal from uterus. Genital warts removed, INGRID.skin cancer removed from neck Past Anesthesia/Blood Transfusion Reactions: No Reported Reaction Date of Last Stent Placement:: May 2016 Past Psychological History: Depression, Panic Disorder Additional Psychological History / Comment(s): Depression r/t health issues. Smoking Status: Current every day smoker Past Alcohol Use History: None Reported Past Drug Use History: None Reported - Past Family History Mother Family Medical History: Cancer, Congestive Heart Failure (CHF), Diabetes Mellitus, Myocardial Infarction (ME) Additional Family Medical History / Comment(s): Ovarian CA. Mother at age 69. Father Family Medical History: Coronary Artery Disease (CAD), Myocardial Infarction (ME ) Additional Family Medical History / Comment(s): Father at age 70. Sister(s) Family Medical History: Myocardial Infarction (ME) Additional Family Medical History / Comment(s): Patient has one sister with myocardial infarction at age 55. Son(s) Family Medical History: Deep Vein Thrombosis (DVT), Pulmonary Embolus Additional Family Medical History / Comment(s): Patient has 2 sons and one has history of DVT and pulmonary embolism. Patient does not have any daughters. Patient does not have any brothers. Medications and Allergies Home Medications Medication Instructions Recorded Confirmed Type Gabapentin 800 mg PO BID 12/14/13 08/27/18 History DULoxetine HCL [Cymbalta] 30 mg PO DAILY 07/15/14 08/27/18 History Ergocalciferol [Vitamin D2 50,000 unit PO Q14D 08/26/15 08/27/18 History (MELANIE)] Insulin Lispro [humaLOG Kwikpen] See Protocol SQ AC-TID 08/26/15 08/27/18 History Rosuvastatin [Crestor] 10 mg PO HS #0 10/01/16 08/27/18 Rx Insulin Glargine,Hum.rec.anlog 70 unit SQ HS 01/18/17 08/27/18 History [Lantus Solostar] Potassium Chloride [K-Tab ER] 10 meq PO BID 03/31/17 08/27/18 History HYDROcodone/APAP 10-325MG [[place] 1 tab PO QID PRN 08/07/17 08/27/18 History 10-325] Aspirin 81 mg PO DAILY 10/21/17 08/27/18 History Furosemide [Lasix] 10 mg PO Q48H 12/26/17 08/27/18 History Warfarin Sodium [Coumadin] 5 mg PO HS 12/26/17 08/27/18 History Cyanocobalamin [Vitamin B-12] 1,000 mcg PO DAILY 08/27/18 08/27/18 History Warfarin [Coumadin] 2.5 mg PO FR 08/27/18 08/27/18 History Pantoprazole [Protonix] 40 mg PO AC-BRKFST #30 tablet. 08/28/18 Rx metFORMIN HCL 1,000 mg PO BID #0 08/28/18 08/27/18 Rx Allergies Allergy/AdvReac Type Severity Reaction Status Date / Time vancomycin Allergy Rash/Hives/and Verified 08/27/18 21:42 vomiting diarrhea Physical Exam Vitals: Vital Signs Temp Pulse Pulse Pulse Resp BP BP 08/28/18 09:08 100/64 08/28/18 09:04 113/74 08/28/18 09:00 119/75 08/28/18 08:13 98.0 F 61 12 123/74 08/28/18 04:00 98.0 F 64 15 109/70 08/28/18 03:25 15 08/27/18 22:22 15 08/27/18 21:56 98.2 F 67 15 125/76 08/27/18 21:33 98.8 F 73 18 121/68 08/27/18 19:30 75 18 102/60 08/27/18 19:00 73 19 115/79 08/27/18 18:40 89 20 08/27/18 17:34 98.2 F 90 18 139/85 Pulse Ox 08/28/18 09:08 08/28/18 09:04 08/28/18 09:00 08/28/18 08:13 95 08/28/18 04:00 97 08/28/18 03:25 08/27/18 22:22 08/27/18 21:56 97 08/27/18 21:33 98 08/27/18 19:30 95 08/27/18 19:00 95 08/27/18 18:40 08/27/18 17:34 100 Intake and Output 08/27/18 08/28/18 08/28/18 22:59 06:59 14:59 Other: Voiding Method Toilet Toilet # Voids 1 Weight 92.986 kg Results 08/27/18 17:55 08/27/18 17:55 Cardiac Enzymes 08/27/18 08/27/18 08/27/18 Range/Units 17:55 17:55 22:45 AST 41 H (14-36) U/L CK-MB (CK-2) 0.6 0.4 (0.0-2.4) ng/mL Troponin I <0.012 <0.012 (0.000-0.034) ng/mL 08/28/18 Range/Units 05:56 AST (14-36) U/L CK-MB (CK-2) 0.4 (0.0-2.4) ng/mL Troponin I <0.012 (0.000-0.034) ng/mL Coagulation 08/27/18 08/28/18 Range/Units 17:55 05:25 PT 21.0 H 18.6 H (9.0-12.0) sec APTT 31.8 H (22.0-30.0) sec Lipids 08/28/18 Range/Units 05:56 Triglycerides 285 H (<150) mg/dL Cholesterol 124 (<200) mg/dL HDL Cholesterol 36 L (40-60) mg/dL CBC 08/27/18 Range/Units 17:55 WBC 9.3 (3.8-10.6) k/uL RBC 4.86 (3.80-5.40) m/uL Hgb 14.1 (11.4-16.0) gm/dL Hct 41.9 (34.0-46.0) % Plt Count 169 (150-450) k/uL Comprehensive Metabolic Panel 08/27/18 Range/Units 17:55 Sodium 137 (137-145) mmol/L Potassium 5.0 (3.5-5.1) mmol/L Chloride 100 (98-107) mmol/L Carbon Dioxide 25 (22-30) mmol/L BUN 16 (7-17) mg/dL Creatinine 0.91 (0.52-1.04) mg/dL Glucose 397 H (74-99) mg/dL Calcium 9.5 (8.4-10.2) mg/dL AST 41 H (14-36) U/L ALT 33 (9-52) U/L Alkaline Phosphatase 51 (38-126) U/L Total Protein 6.6 (6.3-8.2) g/dL Albumin 3.6 (3.5-5.0) g/dL Current Medications Generic Name Dose Route Start Last Admin Trade Name Freq PRN Reason Stop Dose Admin Hydrocodone Bitart/Acetaminophen 1 each 08/27/18 22:32 08/28/18 08:21 [place] 10 PO 1 each QID PRN Administration Pain Aspirin 81 mg 08/28/18 09:00 Aspirin PO DAILY [facility] Atorvastatin Calcium 20 mg 08/27/18 23:38 08/28/18 00:06 Lipitor PO 20 mg HS [facility] Administration Caffeine Citrate 60 mg 08/28/18 09:06 Cafcit Inj IV 08/28/18 23:00 ONCE PRN Patient Response Cyanocobalamin 1,000 mcg 08/28/18 09:00 Vitamin B-12 PO DAILY [facility] Duloxetine HCl 30 mg 08/27/18 23:45 08/28/18 00:05 Cymbalta PO 30 mg DAILY [facility] Administration Furosemide 10 mg 08/28/18 09:00 Lasix PO Q48H [facility] Gabapentin 800 mg 08/27/18 23:30 08/28/18 00:05 Neurontin PO 800 mg BID [facility] Administration Dobutamine HCl/Dextrose 500 mg 250 mls @ 27.89 mls/hr 08/28/18 08:52 / IV Solution IV 08/28/18 17:49 .[id number] ONE Protocol 10 MCG/KG/MIN Insulin Aspart 0 unit 08/27/18 23:42 08/28/18 00:07 Novolog SQ 3 unit ACHS [facility] Administration Protocol Insulin Detemir 70 unit 08/27/18 23:30 08/27/18 23:45 Levemir SQ Not Given HS [facility] Nitroglycerin 1 inch 08/28/18 00:00 08/28/18 03:28 Nitro-Bid Oint TOPICAL Not Given Q6HR [facility] Nitroglycerin 0.4 mg 08/27/18 21:08 Nitrostat SUBLINGUAL Q5M PRN Chest Pain Pantoprazole Sodium 40 mg 08/29/18 07:30 Protonix PO AC-BRKFST [facility] Potassium Chloride 10 meq 08/27/18 23:45 08/28/18 00:06 K-Dur 10 PO 10 meq BID [facility] Administration Sodium Chloride 10 ml 08/28/18 09:00 Saline Flush IV BID [facility] Warfarin Sodium 2.5 mg 08/29/18 18:00 Coumadin PO Fr@1800 [facility] Warfarin Sodium 5 mg 08/30/18 18:00 Coumadin PO Sa@1800 [facility] Warfarin Sodium 5 mg 08/31/18 18:00 Coumadin PO [place]@1800 [facility] Warfarin Sodium 5 mg 08/27/18 23:39 08/28/18 00:06 Coumadin PO 5 mg [id number]@1800 [facility] Administration Intake and Output 08/27/18 08/28/18 08/28/18 22:59 06:59 14:59 Other: Voiding Method Toilet Toilet # Voids 1 Weight 92.986 kg 08/27/18 17:55 08/27/18 17:55
--- NOTE | 2018-08-28 10:55 | P.STRESS ---
- Stress Test Note Stress Test Results/Findings: Exam Performed: NM stress lexiscan cardiolite Exam Date: 08/28/18 Reason for Exam: CHEST PAIN Height: 5 ft 7 in Weight: 92.986 kg Protocol: LEXISCAN Stage: NA Duration of Exercise: NA Resting Heart Rate: 62 Resting Blood Pressure: 131/77 Maximum Achieved Heart Rate: 96 Maximum Achieved Blood Pressure: 131/77 85% PMHR: NA 100% PMHR: NA METS: NA Technologist Comment: Stress Test Results/Findings: Baseline heart rate 62 beats a minute Baseline blood pressure 131/77 mmHg Twelve-lead ECG shows normal sinus rhythm and normal cardiac intervals Patient received Lexiscan infusion per protocol There was no ECG is for ischemia no arrhythmias are noted number heart rate and blood pressure response Nuclear portion will be reported separately
--- NOTE | 2018-08-28 11:11 | P.HPIM ---
History of Present Illness H&P Date: 08/28/18 Chief Complaint: chest pain HISTORY AND PHYSICAL AND DISCHARGE SUMMARY: This is a 58-year-old female patient of Dr. Balderas and Dr. Bill with history of CAD with multiple cardiac stent placement initially in 2009 to the RCA followed by 2 other stents 1 in the LAD in 2011 and 1 in the obtuse marginal branch#2, most recently cardiac stent in May 2016 to the RCA, circumflex peripheral artery disease with previous stenting done as well has amputation of the right great toe secondary to osteomyelitis, hypertension, COPD , diabetes mellitus type 2, previous multiple DVT and PE requiring chronic anticoagulation on Coumadin. Patient states that for the past 3-4 days she has had a burning in her chest like heartburn but off to the left side as well as pressure in his been taking Tums without no significant improvement. She's also complaining of tight and gripping with itchy feeling to her previous C- section surgical site. She denies having any dysuria, no diarrhea, no blood or tarry stools, no emesis. She had an EGD done at [facility] last year. Patient continues to smoke at 10 cigarettes per day for 25 years. Patient presented to [facility] emergency center with normal temperature, blood pressure 139/85, pulse ox 100%. White count is 9.3, hemoglobin 14.1, creatinine 0.91 electrolytes within normal limits, blood sugar 397. INR 2.1, d-dimer less than 0.17. Amylase and lipase within normal limits. Total bilirubin 0.9, AST 41, ALT 33 and alkaline phosphatase 51, troponin was negative. CAT scan of the abdomen and pelvis was done that was negative. Chest x-ray negative. Patient was placed on the observation unit and cardiology consult requested. Repeat troponins of been negative on 2 draws. Triglycerides 285, cholesterol 124, LDL 31, HDL 36. Echocardiogram reveals EF of 45-50% with borderline concentric left hypertrophy, trace mitral regurgitation, trace tricuspid regurgitation. Dobutamine stress test was negative for reversible ischemia. Patient discharged home in stable condition. Patient was started on Protonix. No other medication changes made. Review of Systems All systems: negative Constitutional: Denies chills, Denies fatigue, Denies fever, Denies lethargy, Denies malaise, Denies night sweats, Denies poor appetite, Denies weakness, Denies weight loss Eyes: denies blurred vision, denies pain Ears, nose, mouth and throat: Denies headache, Denies hoarseness, Denies sore throat, Denies vertigo Cardiovascular: Reports chest pain, Denies dyspnea on exertion, Denies edema, Denies leg edema, Denies lightheadedness, Denies shortness of breath, Denies syncope Respiratory: Denies cough, Denies cough with sputum, Denies dyspnea, Denies excessive sputum, Denies hemoptysis, Denies home oxygen, Denies wheezing Gastrointestinal: Reports heartburn, Denies abdominal pain, Denies diarrhea, Denies loss of appetite, Denies melena, Denies nausea, Denies vomiting Genitourinary: Denies dysuria, Denies hematuria, Denies urgency Musculoskeletal: Denies frequent falls, Denies gait dysfunction, Denies muscle weakness, Denies myalgias Integumentary: Denies pruritus, Denies rash, Denies wounds Neurological: Denies aphasia, Denies change in mentation, Denies change in speech, Denies convulsions, Denies gait dysfunction, Denies numbness, Denies seizures, Denies weakness Psychiatric: Denies anxiety, Denies depression Endocrine: Denies fatigue, Denies weight change Past Medical History Past Medical History: Coronary Artery Disease (CAD), Cancer, Chest Pain / Angina , COPD, CVA/TIA, Diabetes Mellitus, Deep Vein Thrombosis (DVT), GERD/Reflux, Hyperlipidemia, Hypertension, Myocardial Infarction (CA), Osteoarthritis (OA), Pulmonary Embolus (PE) Additional Past Medical History / Comment(s): states "b/p and heart rate running low", CVA on 11-16-16-Increased fatigue,SOB with activity,Loss of appetitie,pain in stomach after eating.Mutiple DVT,mesentaric thrombosis x2,hx GENITAL WARTS, neuropathy,pad,chronic pain syndrome,ddd lumbar region w/ radiculopathy, fell jun 2015 tore rt rotator cuff, pancreatitis, uti, non alcoholic fatty liver, skin cancer removed from neck.poly neuropathy wound rt great toe -goes to [facility] mond[facility]. t toe Last Myocardial Infarction Date:: 2010 History of Any Multi-Drug Resistant Organisms: None Reported Past Surgical History: Section, Heart Catheterization, Heart Catheterization With Stent, Orthopedic Surgery, Tonsillectomy, Tubal Ligation Additional Past Surgical History / Comment(s): 11 Stents in left leg, fistula left thigh, full mouth teeth extraction, TRAPEASE VENA CAVA FILTER, carpel tunnel, heart stents x4 rca and lad, tumor removal from uterus. Genital warts removed, INGRID.skin cancer removed from neck Past Anesthesia/Blood Transfusion Reactions: No Reported Reaction Date of Last Stent Placement:: May 2016 Past Psychological History: Depression, Panic Disorder Additional Psychological History / Comment(s): Depression r/t health issues. Smoking Status: Current every day smoker Past Alcohol Use History: None Reported Additional Past Alcohol Use History / Comment(s): Patient is a smoker of 10 cigarettes per day for 25 years. She denies any illicit drug use or alcohol use. Past Drug Use History: None Reported - Past Family History Mother Family Medical History: Cancer, Congestive Heart Failure (CHF), Diabetes Mellitus, Myocardial Infarction (CA) Additional Family Medical History / Comment(s): Ovarian CA. Mother at age 69. Father Family Medical History: Coronary Artery Disease (CAD), Myocardial Infarction (CA ) Additional Family Medical History / Comment(s): Father at age 70. Sister(s) Family Medical History: Myocardial Infarction (CA) Additional Family Medical History / Comment(s): Patient has one sister with myocardial infarction at age 55. Son(s) Family Medical History: Deep Vein Thrombosis (DVT), Pulmonary Embolus Additional Family Medical History / Comment(s): Patient has 2 sons and one has history of DVT and pulmonary embolism. Patient does not have any daughters. Patient does not have any brothers. Medications and Allergies Home Medications Medication Instructions Recorded Confirmed Type RX: Gabapentin 800 mg PO BID 12/14/13 08/27/18 History RX: DULoxetine HCL [Cymbalta] 30 mg PO DAILY 07/15/14 08/27/18 History RX: Ergocalciferol [Vitamin D2 50,000 unit PO Q14D 08/26/15 08/27/18 History (DRISDOL)] RX: Insulin Lispro [humaLOG See Protocol SQ AC-TID 08/26/15 08/27/18 History Kwikpen] RX: Rosuvastatin [Crestor] 10 mg PO HS #0 10/01/16 08/27/18 Rx RX: Insulin Glargine,Hum.rec.anlog 70 unit SQ HS 01/18/17 08/27/18 History [Lantus Solostar] RX: Potassium Chloride [K-Tab ER] 10 meq PO BID 03/31/17 08/27/18 History RX: HYDROcodone/APAP 10-325MG 1 tab PO QID PRN 08/07/17 08/27/18 History [Badger 10-325] RX: Aspirin 81 mg PO DAILY 10/21/17 08/27/18 History RX: Furosemide [Lasix] 10 mg PO Q48H 12/26/17 08/27/18 History RX: Warfarin Sodium [Coumadin] 5 mg PO HS 12/26/17 08/27/18 History RX: Cyanocobalamin [Vitamin B-12] 1,000 mcg PO DAILY 08/27/18 08/27/18 History RX: Warfarin [Coumadin] 2.5 mg PO FR 08/27/18 08/27/18 History RX: Pantoprazole [Protonix] 40 mg PO MICHAEL-JASONFSMaritza #30 tablet. 08/28/18 Rx RX: metFORMIN HCL 1,000 mg PO BID #0 08/28/18 08/27/18 Rx Allergies Allergy/AdvReac Type Severity Reaction Status Date / Time vancomycin Allergy Rash/Hives/and Verified 08/27/18 21:42 vomiting diarrhea Physical Exam Vitals: Vital Signs Temp Pulse Pulse Pulse Resp BP BP 08/28/18 09:08 100/64 08/28/18 09:04 113/74 08/28/18 09:00 119/75 08/28/18 08:13 98.0 F 61 12 123/74 08/28/18 04:00 98.0 F 64 15 109/70 08/28/18 03:25 15 08/27/18 22:22 15 08/27/18 21:56 98.2 F 67 15 125/76 08/27/18 21:33 98.8 F 73 18 121/68 08/27/18 19:30 75 18 102/60 08/27/18 19:00 73 19 115/79 08/27/18 18:40 89 20 08/27/18 17:34 98.2 F 90 18 139/85 Pulse Ox 08/28/18 09:08 08/28/18 09:04 08/28/18 09:00 08/28/18 08:13 95 08/28/18 04:00 97 08/28/18 03:25 08/27/18 22:22 08/27/18 21:56 97 08/27/18 21:33 98 08/27/18 19:30 95 08/27/18 19:00 95 08/27/18 18:40 08/27/18 17:34 100 Intake and Output 08/27/18 08/28/18 08/28/18 22:59 06:59 14:59 Other: Voiding Method Toilet Toilet # Voids 1 Weight 92.986 kg Gen: This is a 58-year-old female. She is resting in bed and appears to be comfortable and in no acute distress. HEENT: Head is atraumatic, normocephalic. Pupils equal, round. Sclerae is anicteric. NECK: Supple. No JVD. No lymphadenopathy. No thyromegaly. LUNGS: Clear to auscultation. No wheezes or rhonchi. No intercostal retractions. HEART: Regular rate and rhythm. No murmur. ABDOMEN: Soft. Bowel sounds are present. No masses. Positive epigastric tenderness. Patient has vertical scars to the abdomen but no significant abnormality, EXTREMITIES: No pedal edema. No calf tenderness. NEUROLOGICAL: Patient is awake, alert and oriented x3. Cranial nerves 2 through 12 are grossly intact. Results CBC & Chem 7: 08/27/18 17:55 08/27/18 17:55 Labs: Abnormal Lab Results - Last 24 Hours (Table) 08/27/18 08/27/18 08/27/18 Range/Units 17:55 17:55 17:55 RDW 16.1 H (11.5-15.5) % PT 21.0 H (9.0-12.0) sec INR 2.1 H (<1.2) APTT 31.8 H (22.0-30.0) sec Glucose 397 H (74-99) mg/dL POC Glucose (mg/dL) (75-99) mg/dL Magnesium 1.2 L (1.6-2.3) mg/dL AST 41 H (14-36) U/L Triglycerides (<150) mg/dL HDL Cholesterol (40-60) mg/dL 08/27/18 08/28/18 08/28/18 Range/Units 22:02 05:25 05:56 RDW (11.5-15.5) % PT 18.6 H (9.0-12.0) sec INR 1.9 H (<1.2) APTT (22.0-30.0) sec Glucose (74-99) mg/dL POC Glucose (mg/dL) 213 H (75-99) mg/dL Magnesium (1.6-2.3) mg/dL AST (14-36) U/L Triglycerides 285 H (<150) mg/dL HDL Cholesterol 36 L (40-60) mg/dL 08/28/18 Range/Units 07:53 RDW (11.5-15.5) % PT (9.0-12.0) sec INR (<1.2) APTT (22.0-30.0) sec Glucose (74-99) mg/dL POC Glucose (mg/dL) 203 H (75-99) mg/dL Magnesium (1.6-2.3) mg/dL AST (14-36) U/L Triglycerides (<150) mg/dL HDL Cholesterol (40-60) mg/dL Thrombosis Risk Factor Assmnt - Choose All That Apply Any of the Below Risk Factors Present?: Yes Each Factor Represents 1 point: Abnormal pulmonary function (COPD), Age 41-60 years, Obesity (BMI >25) Other Risk Factors: Yes Each Risk Factor Represents 3 Points: History of DVT/PE Other congenital or acquired thrombophilia - If yes, enter type in comment: No Thrombosis Risk Factor Assessment Total Risk Factor Score: 6 Thrombosis Risk Factor Assessment Level: High Risk Assessment and Plan Plan: 1. Chest pain with epigastric tenderness most likely secondary to gastritis. Patient will be started on Protonix. 2. Diabetes mellitus type 2, uncontrolled with hyperglycemia. Patient to follow-up with Dr. Klaudia Schmid. 3. Coronary artery disease status post multiple PCI with ischemic cardiomyopathy. 4. Hypertension and hypertensive cardiovascular disease. 5. Chronic DVT and PEs. 6. Chronic tobacco use and dependence with COPD. smoking cessation. 7. Hyperlipidemia. 8. Diabetic polyneuropathy. 9. Severe PAD. 10. Recurrent depression. Patient placed on the observation unit. Discharge plan: Return home Impression and plan of care have been directed as dictated by the signing physician. Kerri Kevin nurse practitioner acting as scribe for signing physician.
[2018-08-28 11:49] LABS: Glucose,Whole Blood 163 mg/dL (75-99)
[2018-08-28 11:57] VITALS: BP 122/75; PULSE 63; RESP 16; TEMP 97.8
--- NOTE | 2018-08-28 12:26 | NM ---
EXAMINATION TYPE: NM stress lexiscan cardiolite DATE OF EXAM: 08/28/2018 COMPARISON: NONE HISTORY: Chest pain TECHNIQUE: After the intravenous administration of 10.11 mCi Tc 99m Sestamibi - Cardiolite resting S PECT images acquired 45 minutes post injection. The patient received 0.4mg Lexiscan, 26.7 mCi Tc 99m Sestamibi - Stress images obtained [address] injection FINDINGS: There is diminished radiotracer accumulation within the inferior wall near the cardiac apex. Appears larger on the resting images. Small prior infarct be considered. No stress-induced ischemic changes. Polar maps appear to reflect these findings. Ejection fraction of 49% is slightly low. Normal greater than 50%. Wall motion appears normal. IMPRESSION: 1. Suggestion of small prior infarct inferior wall near cardiac apex. 2. Low ejection fraction of 49%. Normal greater than 50%. 3. No stress-induced ischemic change
[2018-08-28 14:03] LABS: Hemoglobin A1C 10.8 % (4.0-6.0)
[2018-08-28] MEDS ORDERED: WARFARIN 5 MG TAB PO SCH (18:00)
[2018-08-28] MEDS ORDERED: ATORVASTATIN 20 MG TAB PO SCH (21:00)
[2018-08-29] MEDS ORDERED: PANTOPRAZOLE 40 MG TABLET PO SCH (07:30)
[2018-08-29] MEDS ORDERED: WARFARIN 2.5 MG TAB PO SCH (18:00)
[2018-08-30] MEDS ORDERED: WARFARIN 5 MG TAB PO SCH (18:00)
[2018-08-31] MEDS ORDERED: WARFARIN 5 MG TAB PO SCH (18:00)
--- NOTE | 2018-09-01 14:27 | CDI ---
Outpatient Documentation Clarification Form Date: 09-01-18 CDS/Oyster Shucker Name: LILIAN MARIEE Phone: If you have question, contact Christelle Morales Lamp Cleaner at [phone] M-F 8:30 am to 6pm. Patient Name: IRIS CARBAJAL Admit Date: 08-27-18 Discharge Date: 08-28-18 ATTENTION: The Clinical Documentation Specialists (CDI) and [facility] Coding Staff appreciate your assistance in clarifying documentation. Please respond to the clarification below the line at the bottom and electronically sign. The CDI & [facility] Coding staff will review the response and follow-up if needed. Please note: Queries are made part of the Legal Health Record. If you have any questions, please contact the author of this message via ITS or call the Lamp Cleaner. Dr. WARD, PT HAS LOW MAGNESIUM PER LAB VALUES AND WAS GIVEN IVPB MAGNESIUM. IF APPLICABLE , PLEASE ADD DX BELOW THE LINE SPECIFYING THE PATIENT'S CONDITION. FOR EXAMPLE: -HYPOMAGNESEMIA -UNSPECIFIED - YOUR DIAGNOSIS THANK YOU FOR YOUR TIME, KIERRA KENNY __Hypomagnesemia MTDD
--- NOTE | 2018-09-05 10:58 | CDI ---
Outpatient Documentation Clarification Form Date: CDS/Video Machines Mechanic Name: Phone: If any questions, call Christelle Morales Paper Products Machine Operator at [phone] Patient Name: Account Number: Admit Date: Discharge Date: ATTENTION: The [facility] Coding Staff appreciate your assistance in clarifying documentation. Please respond to the clarification below the line at the bottom and electronically sign. The [facility] Coding staff will review the response and follow-up if needed. Please note: Queries are made part of the Legal Health Record. If you have any questions, please contact the Paper Products Machine Operator. Dear Thank you for your kind consideration. DONN
== END 2018-08-28 14:28 | disposition home or self-care (01) ==
LOC: EC 17:31 → 1SOBS 21:08
PROVIDERS: ADMIT Internal Medicine; ATTEND Internal Medicine
DX: R07.89 Other chest pain (principal); R10.13 Epigastric pain; K29.70 Gastritis, unspecified, without bleeding; R14.0 Abdominal distension (gaseous); I25.10 Atherosclerotic heart disease of native coronary artery without angina pectoris; J44.9 Chronic obstructive pulmonary disease, unspecified; K21.9 Gastro-esophageal reflux disease without esophagitis; E78.5 Hyperlipidemia, unspecified; I25.2 Old myocardial infarction; G89.4 Chronic pain syndrome; M19.90 Unspecified osteoarthritis, unspecified site; E11.42 Type 2 diabetes mellitus with diabetic polyneuropathy; F41.0 Panic disorder [episodic paroxysmal anxiety]; F17.210 Nicotine dependence, cigarettes, uncomplicated; M51.36 Other intervertebral disc degeneration, lumbar region; E11.65 Type 2 diabetes mellitus with hyperglycemia; E11.51 Type 2 diabetes mellitus with diabetic peripheral angiopathy without gangrene; I25.5 Ischemic cardiomyopathy; F33.9 Major depressive disorder, recurrent, unspecified; I11.9 Hypertensive heart disease without heart failure; E83.42 Hypomagnesemia; K76.0 Fatty (change of) liver, not elsewhere classified; Z79.899 Other long term (current) drug therapy; Z79.84 Long term (current) use of oral hypoglycemic drugs; Z79.82 Long term (current) use of aspirin; Z79.01 Long term (current) use of anticoagulants; Z79.4 Long term (current) use of insulin; Z88.1 Allergy status to other antibiotic agents; Z86.73 Personal history of transient ischemic attack (TIA), and cerebral infarction without residual deficits; Z86.718 Personal history of other venous thrombosis and embolism; Z86.711 Personal history of pulmonary embolism; Z87.440 Personal history of urinary (tract) infections; Z85.828 Personal history of other malignant neoplasm of skin; Z95.5 Presence of coronary angioplasty implant and graft; Z95.828 Presence of other vascular implants and grafts; Z80.41 Family history of malignant neoplasm of ovary; Z89.411 Acquired absence of right great toe; E66.9 Obesity, unspecified; Z68.32 Body mass index [BMI] 32.0-32.9, adult
CPT/HCPCS: 93005 ×2; 96365; 96366; 99285; 36415; 93017; 93306; 85379; 80061; 80053; 82150; 82550 ×2; 82553 ×2; 83690; 83735 ×2; 84484 ×2; 85025; 85610 ×2; 85730; 83036; 71046; 74018; 74177; 78452; G0378 ×2; A9500; J1250; J3475; J2785; Q9967

== ENCOUNTER 2018-11-12 06:20 | Day surgery (SDC) | payer MEDICARE, OTHER ==
[2018-11-11 09:02] VITALS: BMI 32.4
[~2018-11-12 06:20] MED LIST: DEXAMETHASONE SOD PHOSPHATE 10 MG/ML 1 ML VIAL IV ONE; HEPARIN SODIUM,PORCINE 5,000 UNIT/ML 1 ML VIAL SQ ONE; LACTATED RINGERS 1,000 ML IV SCH; LIDOCAINE 1% 20 ML VIAL (10MG/ML) FOR IV START INTRADERMA PRN; SCOPOLAMINE 1.5MG/72HR PATCH TRANSDERM ONE; ceFAZolin IN SWFI 2 GM/20 ML SYRINGE IVP ONE
[2018-11-12 06:53] LABS: Glucose,Whole Blood 188 mg/dL (75-99)
[2018-11-12] MEDS: ONDANSETRON 4 MG/2 ML VIAL IVP ONE ×2 (06:56→09:00)
[2018-11-12] MEDS ORDERED: MIDAZOLAM 2 MG/2 ML VIAL IV ONE (07:02)
[2018-11-12] MEDS ORDERED: ROCURONIUM BROMIDE 10 MG/ML 10 ML VIAL IV ONE (07:30)
[2018-11-12] MEDS ORDERED: fentaNYL (PF) 50 MCG/ML 2 ML AMP ONE (07:30)
[2018-11-12] MEDS ORDERED: PROPOFOL 10 MG/ML 20 ML VIAL IV ONE (07:30)
[2018-11-12] MEDS ORDERED: NEOSTIGMINE 1 MG/ML 10 ML VIAL ONE (07:30)
[2018-11-12] MEDS ORDERED: HYDROmorphone (PF) 1 MG/ML ONE (07:30)
[2018-11-12] MEDS ORDERED: MIDAZOLAM 2 MG/2 ML VIAL ONE (07:30)
[2018-11-12] MEDS ORDERED: GLYCOPYRROLATE 0.2 MG/ML 2 ML VIAL ONE (07:30)
[2018-11-12] MEDS ORDERED: LIDOCAINE 1% INJ 10MG/ML (20 ML MDV) ONE (07:30)
[2018-11-12] MEDS ORDERED: KETOROLAC 30 MG/ML 1 ML VIAL ONE (07:30)
[2018-11-12] MEDS ORDERED: SUCCINYLCHOLINE CHLORIDE 100 MG/5 ML SYR IV ONE (07:30)
[2018-11-12] MEDS ORDERED: BUPIVACAIN-EPI 0.5%-1:200,000 30 ML VIAL SQ ONE (07:57)
[2018-11-12] MEDS ORDERED: LACTATED RINGERS 1,000 ML IV ONE (08:11)
[2018-11-12 08:34] VITALS: TEMP 97.1
--- NOTE | 2018-11-12 08:35 | P.OP ---
Date of Procedure: 11/12/18 Preoperative Diagnosis: Cholecystitis Cholelithiasis Postoperative Diagnosis: Cholecystitis Cholelithiasis Liver cirrhosis Procedure(s) Performed: Laparoscopic ostectomy Laparoscopic liver biopsy Anesthesia: MACHELLE Surgeon: Ricki Ortega Estimated Blood Loss (ml): 5 Pathology: other (Gallbladder, liver biopsy) Condition: stable Disposition: PACU Description of Procedure: HaThe patient was placed on the operating table. The patient received a general endotracheal tube anesthesia. The patients abdomen was prepped and draped in the usual sterile fashion. Through an infraumbilical stab incision, the fascia of the anterior abdominal wall was grasped with a pair of Kochers and then the Veress needle was placed in the peritoneal cavity. Position of the Veress needle was confirmed with positive drop test. The abdomen was then insufflated. After adequate insufflation, the 10 mm trocar was placed in the peritoneal cavity. Following this the laparoscope was placed in the peritoneal cavity. The patient was placed in the head-up, right side up position and then a 5 mm trocar was placed in the right lateral and right subcostal position under direct visualization. A 8 mm trocar was placed in the epigastric position. The gallbladder was grasped in the fundus and infundibulum. The liver appeared to be cirrhotic. A biopsy of the liver was performed using the biopsy forcep. Randloph cautery hemostasis. The specimens of pathology. Traction on the gallbladder was placed in the lateral and the cephalad positions. The triangle of Calot was visualized.. The cystic duct was bluntly dissected until the union of the cystic duct and common bile duct was seen. The cystic duct was then divided and sealed with the Harmonic scissors. A PDS Endoloop was then placed throughout the cystic duct stump. The cystic artery divided and sealed with the Harmonic scissors. The gallbladder was then removed from the liver bed using Harmonic scissors. The gallbladder was then extracted through the epigastric port site. Operative field was checked for any bleeding spots and Harmonic scissors was used to coagulate the liver bed. The abdomen was irrigated. The trocars were removed. The skin was closed using interrupted 3-0 Vicryl suture. Dermabond dressing were applied. The patient tolerated the procedure well.
--- NOTE | 2018-11-12 08:37 | P.GSHP ---
History of Present Illness H&P Date: 11/12/18 Chief Complaint: Right upper quadrant pain This a 58-year-old female who's had complaints of right quadrant pain. Patient scheduled for laparoscopic cholestatic for chronic cholecystitis/cholelithiasis. Past Medical History Past Medical History: Coronary Artery Disease (CAD), Cancer, Chest Pain / Angina, COPD, CVA/TIA, Diabetes Mellitus, Deep Vein Thrombosis (DVT), GERD/Reflux, Hyperlipidemia, Hypertension, Myocardial Infarction (CO), Osteoarthritis (OA), Pulmonary Embolus (PE) Additional Past Medical History / Comment(s): states "b/p and heart rate running low", CVA on 11-16-16-Increased fatigue,SOB with activity,Loss of appetitie,pain in stomach after eating.Mutiple DVT,mesentaric thrombosis x2,hx GENITAL WARTS, neuropathy,pad,chronic pain syndrome,ddd lumbar region w/radiculopathy, fell jun 2015 tore rt rotator cuff, pancreatitis, uti, non alcoholic fatty liver, skin cancer removed from neck.poly neuropathy Last Myocardial Infarction Date:: 2010 History of Any Multi-Drug Resistant Organisms: None Reported Past Surgical History: Section, Heart Catheterization, Heart Catheterization With Stent, Orthopedic Surgery, Tonsillectomy, Tubal Ligation Additional Past Surgical History / Comment(s): 11 Stents in left leg, fistula left thigh, full mouth teeth extraction, TRAPEASE VENA CAVA FILTER, carpel tunnel, heart stents x4 rca and lad, tumor removal from uterus. Genital warts removed, INGRID.skin cancer removed from neck, rt great toe amputated, colonoscopy Past Anesthesia/Blood Transfusion Reactions: No Reported Reaction Date of Last Stent Placement:: May 2016 Smoking Status: Current every day smoker - Past Family History Mother Family Medical History: Cancer, Congestive Heart Failure (CHF), Diabetes Mellitus, Myocardial Infarction (CO) Additional Family Medical History / Comment(s): Ovarian CA. Mother at age 69. Father Family Medical History: Coronary Artery Disease (CAD), Myocardial Infarction (CO) Additional Family Medical History / Comment(s): Father at age 70. Sister(s) Family Medical History: Myocardial Infarction ([place]) Additional Family Medical History / Comment(s): Patient has one sister with myocardial infarction at age 55. Son(s) Family Medical History: Deep Vein Thrombosis (DVT), Pulmonary Embolus Additional Family Medical History / Comment(s): Patient has 2 sons and one has history of DVT and pulmonary embolism. Medications and Allergies Home Medications Medication Instructions Recorded Confirmed Type Gabapentin 800 mg PO TID 12/14/13 11/12/18 History DULoxetine HCL [Cymbalta] 30 mg PO DAILY 07/15/14 11/12/18 History Ergocalciferol [Vitamin D2 50,000 unit PO Q14D 08/26/15 11/12/18 History (MELANIE)] Insulin Lispro [humaLOG Kwikpen] See Protocol SQ AC-TID 08/26/15 11/12/18 History Rosuvastatin [Crestor] 10 mg PO HS #0 10/01/16 11/12/18 Rx Insulin Glargine,Hum.rec.anlog 70 unit SQ HS 01/18/17 11/12/18 History [Lantus Solostar] Potassium Chloride [K-Tab ER] 10 meq PO BID 03/31/17 11/12/18 History Aspirin 81 mg PO DAILY 10/21/17 11/12/18 History Furosemide [Lasix] 20 mg PO Q48H 12/26/17 11/12/18 History Pantoprazole [Protonix] 40 mg PO AC-BRKFST #30 tablet. 08/28/18 11/12/18 Rx metFORMIN HCL 1,000 mg PO BID #0 08/28/18 11/12/18 Rx Nitroglycerin Sl Tabs [Nitrostat] 0.4 mg SUBLINGUAL Q5M PRN 10/21/18 11/12/18 History hydrOXYzine HCL [Atarax] 10 mg PO HS 10/21/18 11/12/18 History Apixaban [Eliquis] 5 mg PO BID #60 tab 10/23/18 11/12/18 Rx Sennosides-Docusate Sodium 2 tab PO BID #120 tablet 10/23/18 11/12/18 Rx [Senokot-S] Docusate [Colace] 100 mg PO BID #20 capsule 11/12/18 Rx HYDROcodone/APAP 7.5-325MG [Conifer 1 tab PO Q6HR PRN 3 Days #10 tab 11/12/18 Rx 7.5-325] Allergies Allergy/AdvReac Type Severity Reaction Status Date / Time vancomycin Allergy Rash/Hives/and Verified 11/12/18 06:39 vomiting diarrhea Surgical - Exam Vital Signs Temp Pulse Resp BP Pulse Ox 97.9 F 80 16 120/73 100 11/12/18 06:42 11/12/18 06:42 11/12/18 06:42 11/12/18 06:42 11/12/18 06:42 - General well developed, well nourished, no distress - Eyes PERRL - ENT normal pinna - Neck no masses - Respiratory normal expansion - Cardiovascular Rhythm: regular - Abdomen Abdomen: soft Results - Labs Abnormal Lab Results - Last 24 Hours (Table) 11/12/18 Range/Units 06:52 POC Glucose (mg/dL) 188 H (75-99) mg/dL Assessment and Plan Assessment: Chronically cholecystitis. We'll perform laparoscopic cholecystectomy.
[2018-11-12] MEDS: HYDROmorphone 0.5 MG/0.5 ML SYRINGE IVP PRN ×2 (08:40→08:47)
[2018-11-12] MEDS ORDERED: diphenhydrAMINE 50 MG/ML 1 ML VIAL IVP ONE (08:43)
[2018-11-12 09:23] VITALS: RESP 16
[2018-11-12 10:30] VITALS: BP 129/64; PULSE 66
== END 2018-11-12 10:56 | disposition home or self-care (01) ==
LOC: OR 06:20
PROVIDERS: ATTEND Surgery
DX: K80.10 Calculus of gallbladder with chronic cholecystitis without obstruction (principal); K74.60 Unspecified cirrhosis of liver; K76.0 Fatty (change of) liver, not elsewhere classified; I25.119 Atherosclerotic heart disease of native coronary artery with unspecified angina pectoris; I10 Essential (primary) hypertension; E11.42 Type 2 diabetes mellitus with diabetic polyneuropathy; E78.5 Hyperlipidemia, unspecified; J44.9 Chronic obstructive pulmonary disease, unspecified; I25.2 Old myocardial infarction; F17.210 Nicotine dependence, cigarettes, uncomplicated; K21.9 Gastro-esophageal reflux disease without esophagitis; I73.9 Peripheral vascular disease, unspecified; F32.9 Major depressive disorder, single episode, unspecified; M19.90 Unspecified osteoarthritis, unspecified site; G89.4 Chronic pain syndrome; M51.16 Intervertebral disc disorders with radiculopathy, lumbar region; Z86.73 Personal history of transient ischemic attack (TIA), and cerebral infarction without residual deficits; Z86.718 Personal history of other venous thrombosis and embolism; Z86.711 Personal history of pulmonary embolism; Z95.5 Presence of coronary angioplasty implant and graft; Z85.828 Personal history of other malignant neoplasm of skin; Z95.820 Peripheral vascular angioplasty status with implants and grafts; Z79.01 Long term (current) use of anticoagulants; Z79.82 Long term (current) use of aspirin; Z79.4 Long term (current) use of insulin; Z79.899 Other long term (current) drug therapy; Z88.1 Allergy status to other antibiotic agents; Z89.411 Acquired absence of right great toe
CPT/HCPCS: 88304; 88307; 47562; 47379; J2250; J1200; J1644; J1100; J2710; J2405; J2001; J3010; J1885; J1170 ×2; J0330; J2704; J0690

== ENCOUNTER 2018-11-26 14:33 | Emergency (ER) | payer MEDICARE, OTHER ==
[2018-11-26 14:46] VITALS: TEMP 98.4
[2018-11-26] MEDS ORDERED: methylPREDNISolone SOD SUCCI 125 MG/2 ML VIAL IM ONE (15:34)
[2018-11-26] MEDS ORDERED: KETOROLAC 30 MG/ML 1 ML VIAL IM STA (15:34)
--- NOTE | 2018-11-26 15:37 | ED ---
General Adult HPI - General Chief complaint: Neck Pain/Injury Stated complaint: Neck shoulder arm pain Time Seen by Provider: 11/26/18 15:00 Source: patient, RN notes reviewed Mode of arrival: ambulatory Limitations: no limitations - History of Present Illness Initial comments: 58-year-old female with a past medical history of chronic back and leg pain presents to the emergency department for a chief complaint of neck pain. Patient states that 3 days ago she was turning her head when she suddenly felt a crunch in her cervical spine. She states that since that time she has had pain with movement of the neck. She states she has had radiating pain that starts in her neck and shoots down her left shoulder to her left arm. Patient states this is worse with movement of the arm. States that her hand starts to feel tingly.Patient has no other complaints at this time including shortness of breath, chest pain, abdominal pain, nausea or vomiting, headache, or visual changes. - Related Data Home Medications Medication Instructions Recorded Confirmed Gabapentin 800 mg PO TID 12/14/13 11/26/18 DULoxetine HCL [Cymbalta] 30 mg PO DAILY 07/15/14 11/26/18 Ergocalciferol [Vitamin D2 50,000 unit PO Q14D 08/26/15 11/26/18 (DRISDOL)] Insulin Lispro [humaLOG Kwikpen] See Protocol SQ AC-TID 08/26/15 11/26/18 Insulin Glargine,Hum.rec.anlog 70 unit SQ HS 01/18/17 11/26/18 [Lantus Solostar] Potassium Chloride [K-Tab ER] 10 meq PO BID 03/31/17 11/26/18 Aspirin 81 mg PO DAILY 10/21/17 11/26/18 Furosemide [Lasix] 20 mg PO Q48H 12/26/17 11/26/18 Nitroglycerin Sl Tabs [Nitrostat] 0.4 mg SUBLINGUAL Q5M PRN 10/21/18 11/26/18 hydrOXYzine HCL [Atarax] 10 mg PO HS 10/21/18 11/26/18 Hydrocodone/Acetaminophen [[place] 1 tab PO QID PRN 11/26/18 11/26/18 10-325] Previous Rx's Medication Instructions Recorded Rosuvastatin [Crestor] 10 mg PO HS #0 10/01/16 Pantoprazole [Protonix] 40 mg PO BRYANKFSMaritza #30 tablet. 08/28/18 metFORMIN HCL 1,000 mg PO BID #0 08/28/18 Apixaban [Eliquis] 5 mg PO BID #60 tab 10/23/18 Sennosides-Docusate Sodium 2 tab PO BID #120 tablet 10/23/18 [Senokot-S] Cyclobenzaprine [Flexeril] 10 mg PO TID #14 tab 11/26/18 predniSONE 20 mg PO DAILY #5 tab 11/26/18 Allergies Allergy/AdvReac Type Severity Reaction Status Date / Time vancomycin Allergy Rash/Hives/and Verified 11/26/18 15:06 vomiting diarrhea Review of Systems ROS Statement: Those systems with pertinent positive or pertinent negative responses have been documented in the HPI. ROS Other: All systems not noted in ROS Statement are negative. Past Medical History Past Medical History: Coronary Artery Disease (CAD), Cancer, Chest Pain / Angina, COPD, CVA/TIA, Diabetes Mellitus, Deep Vein Thrombosis (DVT), GERD/Reflux, Hyperlipidemia, Hypertension, Myocardial Infarction ([place]), Osteoarthritis (OA), Pulmonary Embolus ([place]) Additional Past Medical History / Comment(s): states "b/p and heart rate running low", CVA on 11-16-16-Increased fatigue,SOB with activity,Loss of appetitie,pain in stomach after eating.Mutiple DVT,mesentaric thrombosis x2,hx GENITAL WARTS, neuropathy,pad,chronic pain syndrome,ddd lumbar region w/radiculopathy, fell jun 2015 tore rt rotator cuff, pancreatitis, uti, non alcoholic fatty liver, skin cancer removed from neck.poly neuropathy Last Myocardial Infarction Date:: 2010 History of Any Multi-Drug Resistant Organisms: None Reported Past Surgical History: Section, Cholecystectomy, Heart Catheterization, Heart Catheterization With Stent, Orthopedic Surgery, Tonsillectomy, Tubal Ligation Additional Past Surgical History / Comment(s): 11 Stents in left leg, fistula left thigh, full mouth teeth extraction, TRAPEASE VENA CAVA FILTER, carpel tunnel, heart stents x4 rca and lad, tumor removal from uterus. Genital warts removed, INGRID.skin cancer removed from neck, rt great toe amputated, colonoscopy Past Anesthesia/Blood Transfusion Reactions: No Reported Reaction Date of Last Stent Placement:: May 2016 Past Psychological History: Depression, Panic Disorder Smoking Status: Current every day smoker Past Alcohol Use History: Occasional Past Drug Use History: None Reported - Past Family History Mother Family Medical History: Cancer, Congestive Heart Failure (CHF), Diabetes Mellitus, Myocardial Infarction ([place]) Additional Family Medical History / Comment(s): Ovarian CA. Mother at age 69. Father Family Medical History: Coronary Artery Disease (CAD), Myocardial Infarction ([place]) Additional Family Medical History / Comment(s): Father at age 70. Sister(s) Family Medical History: Myocardial Infarction ([place]) Additional Family Medical History / Comment(s): Patient has one sister with myocardial infarction at age 55. Son(s) Family Medical History: Deep Vein Thrombosis (DVT), Pulmonary Embolus Additional Family Medical History / Comment(s): Patient has 2 sons and one has history of DVT and pulmonary embolism. General Exam Limitations: no limitations General appearance: alert, in no apparent distress Head exam: Present: atraumatic, normocephalic, normal inspection Eye exam: Present: normal appearance, PERRL, EOMI. Absent: scleral icterus, conjunctival injection, periorbital swelling ENT exam: Present: normal exam, mucous membranes moist Neck exam: Present: normal inspection, tenderness (Tenderness noted of the cervical spine), full ROM. Absent: meningismus, lymphadenopathy Respiratory exam: Present: normal lung sounds bilaterally. Absent: respiratory distress, wheezes, rales, rhonchi, stridor Cardiovascular Exam: Present: regular rate, normal rhythm, normal heart sounds. Absent: systolic murmur, diastolic murmur, rubs, gallop, clicks GI/Abdominal exam: Present: soft, normal bowel sounds. Absent: distended, tenderness, guarding, rebound, rigid Extremities exam: Present: normal capillary refill (Capillary refill less than 2 seconds, radial pulse 2+ in the left upper extremity), other (Sensation intact in the left upper extremity). Absent: full ROM (patient has 90 flexion and abduction of the left arm which at that point causes shooting pain into her left hand.) Neurological exam: Present: alert, oriented X3, CN II-XII intact Psychiatric exam: Present: normal affect, normal mood Course Vital Signs 11/26/18 11/26/18 14:42 16:25 Temperature 98.4 F Pulse Rate 89 88 Respiratory 18 16 Rate Blood Pressure 105/74 122/80 O2 Sat by Pulse 97 95 Oximetry Medical Decision Making - Medical Decision Making 58-year-old female presents to the emergency department for a history of neck pain. This started 3 days ago when she turned her head and felt a crunch in her cervical spine. States that she has had radiating pain from the neck down to her arm since that time. States it is worse with movement. On exam flexion and abduction of the left shoulder exacerbates pain. Patient does have some pain with rotation to the right of the cervical spine. Neurovascular status intact in the left upper extremity. Strength 5 out of 5 in the left upper extremity and equal to the right. No loss of sensation. Cervical spine x-ray shows no acute fracture or malalignment. There is a slight reversal of the usual cervical lordosis that may relate to muscle spasm. This is his in with patient is symptoms. Patient likely extremity cervical radiculopathy. Patient given Toradol and site Medrol, feeling much better. Will follow up with orthopedics. Will return here if she has any worsening symptoms. Disposition Clinical Impression: Cervical radiculopathy Disposition: HOME SELF-CARE Instructions (If sedation given, give patient instructions): Cervical Radiculopathy (ED) Additional Instructions: Please take steroid a muscle relaxer as directed. Do not drive or operate machinery while taking muscle relaxer. Follow-up with orthopedics or primary care in 1-2 days. Return here to the emergency department if you have any worsening symptoms. Prescriptions: Cyclobenzaprine [Flexeril] 10 mg PO TID #14 tab predniSONE 20 mg PO DAILY #5 tab Is patient prescribed a controlled substance at d/c from ED?: No Referrals: Ramirez Balderas MD [Primary Care Provider] - 1-2 days Rafael Johnston DO [Doctor of Osteopathic Medicine] - 1-2 days Saúl Matt DO [Doctor of Osteopathic Medicine] - 1-2 days Time of Disposition: 16:43
--- NOTE | 2018-11-26 16:03 | XR ---
EXAMINATION TYPE: XR cervical spine comp DATE OF EXAM: 11/26/2018 TECHNIQUE: Frontal, lateral, oblique, swimmers, and open mouth view of the cervical spine are obtaine d. HISTORY: Neck pain COMPARISON: 09/08/2014 FINDINGS: There is straightening of usual cervical lordosis and slight reversal from C3 through C7. I ntervertebral disc space narrowing and anterior osteophytes are seen at C6-C7. No prevertebral soft t issue swelling. Incidentally noted left carotid atherosclerosis. The cervical spine is visualized in its entirety from C1 thru the top of T1 level, it is satisfactory in alignment without evidence of ac eklutna fracture or dislocation. The pre-vertebral soft tissue appears within normal limits. The C1-C2 articulation is within normal limits on the open mouth view. The oblique images demonstrate mild domingo ral foraminal narrowing at C6-C7 on the right and left. IMPRESSION: No acute fracture or malalignment is seen in the cervical spine. Slight reversal usual c ervical lordosis may relate to muscular sprain or spasm. Bilateral mild neural foraminal narrowing is seen at C6-C7 from uncovertebral hypertrophy and facet arthropathy.
[2018-11-26 16:26] VITALS: BP 122/80; PULSE 88; RESP 16
== END 2018-11-26 17:01 | disposition home or self-care (01) ==
LOC: EC 14:33
DX: M54.12 Radiculopathy, cervical region (principal); E11.40 Type 2 diabetes mellitus with diabetic neuropathy, unspecified; I10 Essential (primary) hypertension; I25.2 Old myocardial infarction; M19.90 Unspecified osteoarthritis, unspecified site; F32.9 Major depressive disorder, single episode, unspecified; F41.0 Panic disorder [episodic paroxysmal anxiety]; F17.200 Nicotine dependence, unspecified, uncomplicated; Z86.73 Personal history of transient ischemic attack (TIA), and cerebral infarction without residual deficits; Z85.828 Personal history of other malignant neoplasm of skin; Z95.818 Presence of other cardiac implants and grafts; Z95.5 Presence of coronary angioplasty implant and graft; Z79.4 Long term (current) use of insulin; Z79.82 Long term (current) use of aspirin; Z79.891 Long term (current) use of opiate analgesic; Z79.899 Other long term (current) drug therapy; Z88.1 Allergy status to other antibiotic agents
CPT/HCPCS: 99283; 96372 ×2; 72050; J2930; J1885

== ENCOUNTER 2018-12-16 09:50 | Emergency (ER) | payer MEDICARE, OTHER ==
[2018-12-16] MEDS ORDERED: MORPHINE SULFATE 4 MG/ML SYRINGE IV STA (10:15)
[2018-12-16] MEDS ORDERED: ONDANSETRON 4 MG/2 ML VIAL IVP STA (10:15)
[2018-12-16] MEDS ORDERED: SODIUM CHLORIDE 0.9% 1,000 ML IV STA ×2 (10:15)
--- NOTE | 2018-12-16 10:21 | ED ---
General Adult HPI - General Chief complaint: Abdominal Pain Stated complaint: Stomach pain/weakness Time Seen by Provider: 12/16/18 10:06 Source: patient, RN notes reviewed Mode of arrival: ambulatory Limitations: no limitations - History of Present Illness Initial comments: Patient's a 58-year-old female presented to the emergency room today with chief complaint abdominal pain with nausea vomiting over the last 2 weeks. Patient does admit that she's been having increased weakness. States appetites been decreased. She does admit that when she eats feels that she has to use the bathroom or she vomits. Patient does admit panel left side of the abdomen. States it's a constant pain at times getting a sharp pain. Patient denies any recent fever, chills, shortness of breath, chest pain, back pain, numbness or tingling, headaches or visual changes, or any other complaints. - Related Data Home Medications Medication Instructions Recorded Confirmed Gabapentin 800 mg PO BID 12/14/13 12/16/18 DULoxetine HCL [Cymbalta] 30 mg PO DAILY 07/15/14 12/16/18 Ergocalciferol [Vitamin D2 50,000 unit PO Q14D 08/26/15 12/16/18 (DRISDOL)] Insulin Lispro [humaLOG Kwikpen] See Protocol SQ AC-TID 08/26/15 12/16/18 Insulin Glargine,Hum.rec.anlog 70 unit SQ HS 01/18/17 12/16/18 [Lantus Solostar] Potassium Chloride [K-Tab ER] 10 meq PO BID 03/31/17 12/16/18 Aspirin 81 mg PO DAILY 10/21/17 12/16/18 Furosemide [Lasix] 20 mg PO Q48H 12/26/17 12/16/18 Nitroglycerin Sl Tabs [Nitrostat] 0.4 mg SUBLINGUAL Q5M PRN 10/21/18 12/16/18 Hydrocodone/Acetaminophen [[place] 1 tab PO QID PRN 11/26/18 12/16/18 10-325] Cyanocobalamin [Vitamin B-12] 500 mcg PO DAILY 12/16/18 12/16/18 Previous Rx's Medication Instructions Recorded Rosuvastatin [Crestor] 10 mg PO HS #0 10/01/16 Pantoprazole [Protonix] 40 mg PO AC-BRKFST #30 tablet. 08/28/18 metFORMIN HCL 1,000 mg PO BID #0 08/28/18 Apixaban [Eliquis] 5 mg PO BID #60 tab 10/23/18 Dicyclomine [Bentyl] 20 mg PO QID #20 tablet 12/16/18 Omeprazole 20 mg PO DAILY #20 capsule. 12/16/18 Ondansetron Odt [Zofran ODT] 4 mg PO Q8HR PRN #20 tab 12/16/18 Allergies Allergy/AdvReac Type Severity Reaction Status Date / Time vancomycin Allergy Rash/Hives/and Verified 12/16/18 10:18 vomiting diarrhea Review of Systems ROS Statement: Those systems with pertinent positive or pertinent negative responses have been documented in the HPI. ROS Other: All systems not noted in ROS Statement are negative. Past Medical History Past Medical History: Coronary Artery Disease (CAD), Cancer, Chest Pain / Angina, COPD, CVA/TIA, Diabetes Mellitus, Deep Vein Thrombosis (DVT), GERD/Reflux, Hyperlipidemia, Hypertension, Myocardial Infarction ([place]), Osteoarthritis ([place]), Pulmonary Embolus ([place]) Additional Past Medical History / Comment(s): states "b/p and heart rate running low", CVA on 11-16-16-Increased fatigue,SOB with activity,Loss of appetitie,pain in stomach after eating.Mutiple DVT,mesentaric thrombosis x2,hx GENITAL WARTS, neuropathy,pad,chronic pain syndrome,ddd lumbar region w/radiculopathy, fell jun 2015 tore rt rotator cuff, pancreatitis, uti, non alcoholic fatty liver, skin cancer removed from neck.poly neuropathy Last Myocardial Infarction Date:: 2010 History of Any Multi-Drug Resistant Organisms: None Reported Past Surgical History: Section, Cholecystectomy, Heart Catheterization, Heart Catheterization With Stent, Orthopedic Surgery, Tonsillectomy, Tubal Ligation Additional Past Surgical History / Comment(s): 11 Stents in left leg, fistula left thigh, full mouth teeth extraction, TRAPEASE VENA CAVA FILTER, carpel tunnel, heart stents x4 rca and lad, tumor removal from uterus. Genital warts removed, INGRID.skin cancer removed from neck, rt great toe amputated, colonoscopy Past Anesthesia/Blood Transfusion Reactions: No Reported Reaction Date of Last Stent Placement:: May 2016 Past Psychological History: Depression, Panic Disorder Smoking Status: Current every day smoker Past Alcohol Use History: Occasional Past Drug Use History: None Reported - Past Family History Mother Family Medical History: Cancer, Congestive Heart Failure (CHF), Diabetes Mellitus, Myocardial Infarction ([place]) Additional Family Medical History / Comment(s): Ovarian CA. Mother at age 69. Father Family Medical History: Coronary Artery Disease (CAD), Myocardial Infarction ([place]) Additional Family Medical History / Comment(s): Father at age 70. Sister(s) Family Medical History: Myocardial Infarction ([place]) Additional Family Medical History / Comment(s): Patient has one sister with myocardial infarction at age 55. Son(s) Family Medical History: Deep Vein Thrombosis (DVT), Pulmonary Embolus Additional Family Medical History / Comment(s): Patient has 2 sons and one has history of DVT and pulmonary embolism. General Exam - General Exam Comments Initial Comments: General: The patient is awake and alert, in no distress, and does not appear acutely ill. Eye: There is normal conjunctiva bilaterally. No signs of icterus. Ears, nose, mouth and throat: There are moist mucous membranes and no oral lesions. Neck: The neck is supple, there is no tenderness or JVD. Cardiovascular: There is a regular rate and rhythm. No murmur, rub or gallop is appreciated. Respiratory: Lungs are clear to auscultation, respirations are non-labored, breath sounds are equal. No wheezes, stridor, rales, or rhonchi. Gastrointestinal: Admits soft on palpation. Patient does have tenderness in the left upper and lower quadrants. No rebound, guarding or CVA tenderness. Musculoskeletal: Normal ROM, no tenderness. Strength 5/5. Sensation intact. Neurological: A&O x 3. CN II-XII intact, There are no obvious motor or sensory deficits. Coordination appears grossly intact. Speech is normal. Skin: Skin is warm and dry and no rashes or lesions are noted. Psychiatric: Cooperative, appropriate mood & affect, normal judgment. Limitations: no limitations Course Vital Signs 12/16/18 12/16/18 09:52 12:29 Temperature 97.9 F Pulse Rate 89 73 Respiratory 20 18 Rate Blood Pressure 121/86 112/76 O2 Sat by Pulse 99 98 Oximetry Medical Decision Making - Medical Decision Making CT the abdomen pelvis reviewed and does show scattered prominent fluid-filled small bowel symptoms are present and possible regional enteritis. No other acute inflammatory processes identified in the abdomen or pelvis. There is hepatic steatosis soft tissue nodularity of the subcutaneous fat suggesting subcutaneous injections, and stable 2.2 cm right adrenal nodule. 3. IVC filter as well as IVC/left iliac vein stent. Was stable toes complications at the lower aspect of the iliac vein stent with extensive subcutaneous collaterals along the anterior aspect of the pelvis. The patient's labs been reviewed. No elevated white count. Urinalysis does have some white cells but there are epithelial cells. Culture pending. Patient glucose mildly elevated at 286. Patient does take insulin at home. Patient will be given prescription for Zofran, Bentyl, Prilosec here in the emergency room to use for her symptoms. She is advised following up with her GI doctor she sees Dr. Julian in the past. Advised to return here to the emergency room for any other concerns. - Lab Data Result diagrams: 12/16/18 10:46 12/16/18 10:46 Lab Results 12/16/18 12/16/18 12/16/18 Range/Units 10:46 10:46 12:30 WBC 9.8 (3.8-10.6) k/uL RBC 5.13 (3.80-5.40) m/uL Hgb 14.3 (11.4-16.0) gm/dL Hct 43.7 (34.0-46.0) % MCV 85.2 (80.0-100.0) fL MCH 27.9 (25.0-35.0) pg MCHC 32.8 (31.0-37.0) g/dL RDW 15.0 (11.5-15.5) % Plt Count 166 (150-450) k/uL Neutrophils % 78 % Lymphocytes % 16 % Monocytes % 4 % Eosinophils % 2 % Basophils % 1 % Neutrophils # 7.6 (1.3-7.7) k/uL Lymphocytes # 1.5 (1.0-4.8) k/uL Monocytes # 0.3 (0-1.0) k/uL Eosinophils # 0.2 (0-0.7) k/uL Basophils # 0.1 (0-0.2) k/uL Sodium 135 L (137-145) mmol/L Potassium 4.2 (3.5-5.1) mmol/L Chloride 96 L (98-107) mmol/L Carbon Dioxide 26 (22-30) mmol/L Anion Gap 13 mmol/L BUN 10 (7-17) mg/dL Creatinine 1.03 (0.52-1.04) mg/dL Est GFR (CKD-EPI)AfAm 70 (>60 ml/min/1.73 sqM) Est GFR (CKD-EPI)NonAf 61 (>60 ml/min/1.73 sqM) Glucose 286 H (74-99) mg/dL Calcium 9.3 (8.4-10.2) mg/dL Total Bilirubin 1.1 (0.2-1.3) mg/dL AST 48 H (14-36) U/L ALT 48 (9-52) U/L Alkaline Phosphatase 80 (38-126) U/L Total Protein 6.6 (6.3-8.2) g/dL Albumin 3.7 (3.5-5.0) g/dL Amylase 37 (30-110) U/L Lipase 108 (23-300) U/L Urine Color Colorless Urine Appearance Cloudy H (Clear) Urine pH 5.0 (5.0-8.0) Ur Specific [place] 1.011 (1.001-1.035) Urine Protein Negative (Negative) Urine Glucose (UA) 1+ H (Negative) Urine Ketones Negative (Negative) Urine Blood Negative (Negative) Urine Nitrite Negative (Negative) Urine Bilirubin Negative (Negative) Urine Urobilinogen <2.0 (<2.0) mg/dL Ur Leukocyte Esterase Small H (Negative) Urine RBC 1 (0-5) /hpf Urine WBC 10 H (0-5) /hpf Ur Squamous Epith Cells 13 H (0-4) /hpf Urine Bacteria Occasional H (None) /hpf Hyaline Casts 4 H (0-2) /lpf Urine Mucus Rare H (None) /hpf Disposition Clinical Impression: Enteritis Disposition: HOME SELF-CARE Condition: Good Instructions (If sedation given, give patient instructions): Abdominal Pain (ED) Additional Instructions: Please follow-up the GI/family doctor over the next 2 days. Return here to emergency room if any symptoms increase or worsen or for concerns for Prescriptions: Dicyclomine [Bentyl] 20 mg PO QID #20 tablet Omeprazole 20 mg PO DAILY #20 capsule. Ondansetron Odt [Zofran ODT] 4 mg PO Q8HR PRN #20 tab PRN Reason: Nausea Is patient prescribed a controlled substance at d/c from ED?: No Referrals: Ramirez Balderas MD [Primary Care Provider] - 1-2 days Carlitos Velez MD [STAFF PHYSICIAN] - 1-2 days Time of Disposition: 13:11
[2018-12-16 11:08] LABS: Basophils # (A) 0.1 k/uL (0-0.2); Basophils % (A) 1 %; Eosinophils # (A) 0.2 k/uL (0-0.7); Eosinophils % (A) 2 %; HCT 43.7 % (34.0-46.0); HGB 14.3 gm/dL (11.4-16.0); Lymphocytes # (A) 1.5 k/uL (1.0-4.8); Lymphocytes % (A) 16 %; MCH 27.9 pg (25.0-35.0); MCHC 32.8 g/dL (31.0-37.0); MCV 85.2 fL (80.0-100.0); Mean Platelet Volume 8.2; Monocytes # (A) 0.3 k/uL (0-1.0); Monocytes % (A) 4 %; Neutrophils # (A) 7.6 k/uL (1.3-7.7); Neutrophils % (A) 78 %; Platelet Count 166 k/uL (150-450); RBC 5.13 m/uL (3.80-5.40); WBC 9.8 k/uL (3.8-10.6)
[2018-12-16 11:26] LABS: Albumin 3.7 g/dL (3.5-5.0); Calcium 9.3 mg/dL (8.4-10.2); Potassium 4.2 mmol/L (3.5-5.1); Total Bilirubin 1.1 mg/dL (0.2-1.3); Total Protein 6.6 g/dL (6.3-8.2)
[2018-12-16 12:32] VITALS: RESP 18
--- NOTE | 2018-12-16 12:48 | CT ---
EXAMINATION TYPE: CT abdomen pelvis w con DATE OF EXAM: 12/16/2018 COMPARISON: 10/21/2018 HISTORY: 58-year-old female with left sided abdominal pain and swelling with nausea and vomiting. TECHNIQUE: Contiguous axial scanning of the abdomen and pelvis following administration of 100 ml Iso frieda 300 IV contrast. Delayed images through the kidneys and coronal/sagittal reconstructions perform ed. CT DLP: 1123.7 mGycm Automated exposure control for dose reduction was used. FINDINGS: Heart normal size without pericardial effusion. Coronary vessel calcifications are present. Mild depe ndent atelectasis without pleural effusion. Liver mildly enlarged to 18.1 cm with diminished attenuation. No biliary ductal dilatation. Portal ve nous system is patent. Cholecystectomy clips. Focal nodular densities measuring up to 1.7 cm within the anterior subcutaneous adipose layer of the supraumbilical region suggests subcutaneous injections. Stable 2.2 cm right adrenal nodule allowing for some differences in measurement technique. A few scattered subcentimeter hypodensities in both kidneys too small for accurate CT characterizatio n, suggestive of cysts. Symmetric uptake and excretion of contrast from both kidneys. Spleen and pancreas appear within normal limits. Moderate atherosclerotic calcifications within the abdominal aorta and iliac arteries. An IVC filter is present as well as encasing IVC stents. Unchanged calcifications within the distal a spect of the left iliac stent. No dilated small bowel, free fluid, or free air. Scattered fluid-filled small bowel loops in the midabdomen. No significant stool burden. Normal appendix. No pericolonic inflammatory change. Prominent distention of the urinary bladder up to 13.0 cm. Prominent anterior pelvic collateral vessels within the subcutaneous tissues. Uterus and ovaries are visualized. No abnormal fluid collection in the pelvis or pelvic lymphadenopathy. Bones: Degenerative disc disease L5-S1 and hypertrophic facet arthropathy lower lumbar spine. IMPRESSION: 1. SOME SCATTERED PROMINENT FLUID-FILLED SMALL BOWEL LOOPS IN THE MIDABDOMEN COULD REPRESENT A REGION AL ENTERITIS. OTHERWISE, NO ACUTE INFLAMMATORY PROCESS IDENTIFIED IN THE ABDOMEN OR PELVIS TO EXPLAIN THE PATIENT'S SYMPTOMS. 2. HEPATIC STEATOSIS, SOME SOFT TISSUE NODULARITY IN THE SUBCUTANEOUS FAT SUGGESTING SUBCUTANEOUS INJ ECTIONS, AND STABLE 2.2 CM RIGHT ADRENAL NODULE. 3. IVC FILTER WELL IVC/LEFT ILIAC VEIN STENTS. STABLE CALCIFICATIONS AT THE LOWER ASPECT OF THE ILIAC VEIN STENT WITH EXTENSIVE SUBCUTANEOUS COLLATERALS ALONG THE ANTERIOR ASPECT OF THE PELVIS.
[2018-12-16 12:52] LABS: Appearance,Urine Cloudy (Clear); Bacteria,Urine Occasional /hpf; Bilirubin,Urine Negative (Negative); Blood,Urine Negative (Negative); Color,Urine Colorless; Glucose,Urine (UA) 1+ (Negative); Hyaline Casts,Urine 4 /lpf (0-2); Ketones,Urine Negative (Negative); Leukocyte Esterase,Urine Small (Negative); Mucus,Urine Rare /hpf; Nitrite,Urine Negative (Negative); Protein,Urine Negative (Negative); RBC,Urine 1 /hpf (0-5); Specific Gravity,Urine 1.011 (1.001-1.035); Squamous Epithelial Cell,Urine 13 /hpf (0-4); Urobilinogen,Urine <2.0 mg/dL (<2.0); WBC,Urine 10 /hpf (0-5)
[2018-12-16 13:47] VITALS: BP 111/71; PULSE 81; TEMP 98.8
== END 2018-12-16 13:47 | disposition home or self-care (01) ==
LOC: EC 09:50
DX: K52.9 Noninfective gastroenteritis and colitis, unspecified (principal); K76.0 Fatty (change of) liver, not elsewhere classified; E27.9 Disorder of adrenal gland, unspecified; I25.119 Atherosclerotic heart disease of native coronary artery with unspecified angina pectoris; E11.40 Type 2 diabetes mellitus with diabetic neuropathy, unspecified; I10 Essential (primary) hypertension; I25.2 Old myocardial infarction; F32.9 Major depressive disorder, single episode, unspecified; F41.0 Panic disorder [episodic paroxysmal anxiety]; F17.200 Nicotine dependence, unspecified, uncomplicated; Z79.4 Long term (current) use of insulin; Z79.82 Long term (current) use of aspirin; Z79.899 Other long term (current) drug therapy; Z88.1 Allergy status to other antibiotic agents; Z95.5 Presence of coronary angioplasty implant and graft; Z89.411 Acquired absence of right great toe; Z85.828 Personal history of other malignant neoplasm of skin; Z86.711 Personal history of pulmonary embolism; Z86.718 Personal history of other venous thrombosis and embolism; Z86.73 Personal history of transient ischemic attack (TIA), and cerebral infarction without residual deficits
CPT/HCPCS: 99284; 96374; 96375; 96361 ×3; 36415; 80053; 82150; 83690; 85025; 81001; 74177; J2270; J2405; Q9967

== ENCOUNTER 2018-12-26 08:05 | Day surgery (SDC) | payer MEDICARE, OTHER ==
[2018-12-25 11:53] VITALS: BMI 31.6
[~2018-12-26 08:05] MED LIST changes: -DEXAMETHASONE SOD PHOSPHATE 10 MG/ML 1 ML VIAL IV ONE; -HEPARIN SODIUM,PORCINE 5,000 UNIT/ML 1 ML VIAL SQ ONE; -LIDOCAINE 1% 20 ML VIAL (10MG/ML) FOR IV START INTRADERMA PRN; -SCOPOLAMINE 1.5MG/72HR PATCH TRANSDERM ONE; -ceFAZolin IN SWFI 2 GM/20 ML SYRINGE IVP ONE
[2018-12-26 08:29] VITALS: TEMP 97
[2018-12-26] MEDS ORDERED: PROPOFOL 10 MG/ML 20 ML VIAL IV ONE (08:40)
[2018-12-26] MEDS ORDERED: LIDOCAINE 1% 20 ML VIAL (10MG/ML) FOR IV START INTRADERMA ONE (08:41)
--- NOTE | 2018-12-26 08:47 | P.GSHP ---
History of Present Illness H&P Date: 12/26/18 Chief Complaint: GERD, history of colon polyps This a 58-year-old female who presents today for EGD and colonoscopy. Patient points of GERD. She is also a previous history of colon polyps. Past Medical History Past Medical History: Coronary Artery Disease (CAD), Cancer, Chest Pain / Angina, COPD, CVA/TIA, Diabetes Mellitus, Deep Vein Thrombosis (DVT), GERD/Reflux, Hyperlipidemia, Hypertension, Myocardial Infarction (DC), Osteoart hritis (OA), Pulmonary Embolus (PE) Additional Past Medical History / Comment(s): SKIN CA. 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 C/O pain in stomach. Mutiple DVT,mesentaric thrombosis x2, hx GENITAL WARTS, neuropathy, pad, chronic pain syndrome, ddd lumbar region w/radiculopathy, fell 06/2015 tore rt rotator cuff, pancreatitis, uti, non alcoholic fatty liver, poly neuropathy Last Myocardial Infarction Date:: 2010 History of Any Multi-Drug Resistant Organisms: None Reported Past Surgical History: Section, Cholecystectomy, Heart Catheterization, Heart Catheterization With Stent, Orthopedic Surgery, Tonsillectomy, Tubal Ligation Additional Past Surgical History / Comment(s): 11 Stents in left leg, fistula left thigh, full mouth teeth extraction, TRAPEASE VENA CAVA FILTER, carpel tunnel, heart stents x4 rca and lad, tumor removal from uterus. Genital warts removed, INGRID. Skin cancer removed from neck, rt great toe amputated, colonoscopy Past Anesthesia/Blood Transfusion Reactions: No Reported Reaction Date of Last Stent Placement:: May 2016 Smoking Status: Current every day smoker - Past Family History Mother Family Medical History: Cancer, Congestive Heart Failure (CHF), Diabetes Mellitus, Myocardial Infarction (DC) Additional Family Medical History / Comment(s): Ovarian CA. Mother at age 69. Father Family Medical History: Coronary Artery Disease (CAD), Myocardial Infarction (DC) Additional Family Medical History / Comment(s): Father at age 70. Sister(s) Family Medical History: Myocardial Infarction (DC) Additional Family Medical History / Comment(s): Patient has one sister with my ocardial infarction at age 55. Son(s) Family Medical History: Deep Vein Thrombosis (DVT), Pulmonary Embolus Additional Family Medical History / Comment(s): Patient has 2 sons and one has history of DVT and pulmonary embolism. Medications and Allergies Home Medications Medication Instructions Recorded Confirmed Type Gabapentin 800 mg PO TID 12/14/13 12/26/18 History Ergocalciferol [Vitamin D2 50,000 unit PO Q14D 08/26/15 12/26/18 History (DRISDOL)] Insulin Lispro [humaLOG Kwikpen] See Protocol SQ AC-TID 08/26/15 12/26/18 History Rosuvastatin [Crestor] 10 mg PO HS #0 10/01/16 12/26/18 Rx Insulin Glargine,Hum.rec.anlog 70 unit SQ AC-LUNCH 01/18/17 12/26/18 History [Lantus Solostar] Potassium Chloride [K-Tab ER] 10 meq PO BID 03/31/17 12/25/18 History Aspirin 81 mg PO DAILY 10/21/17 12/26/18 History Furosemide [Lasix] 20 mg PO Q48H 12/26/17 12/26/18 History metFORMIN HCL 1,000 mg PO BID #0 08/28/18 12/26/18 Rx Nitroglycerin Sl Tabs [Nitrostat] 0.4 mg SUBLINGUAL Q5M PRN 10/21/18 12/26/18 History Apixaban [Eliquis] 5 mg PO BID #60 tab 10/23/18 12/26/18 Rx Hydrocodone/Acetaminophen [[place] 1 tab PO QID PRN 11/26/18 12/26/18 History 10-325] Pantoprazole [Protonix] 40 mg PO AC-BRKFST PRN 12/25/18 12/26/18 History Sennosides [Senokot] 8.6 mg PO BID PRN 12/25/18 12/25/18 History Allergies Allergy/AdvReac Type Severity Reaction Status Date / Time vancomycin Allergy Rash/Hives/and Verified 12/26/18 08:24 vomiting diarrhea Surgical - Exam Vital Signs Temp Pulse Resp BP Pulse Ox 97.0 F L 85 16 138/85 99 12/26/18 08:20 12/26/18 08:20 12/26/18 08:20 12/26/18 08:20 12/26/18 08:20 - General well developed, well nourished, no distress - Eyes PERRL - ENT normal pinna - Neck no masses - Respiratory normal expansion - Cardiovascular Rhythm: regular - Abdomen Abdomen: soft, non tender Assessment and Plan Assessment: GERD, history of colonic polyps. We'll perform EGD and colonoscopy.
[2018-12-26 08:48] LABS: Glucose,Whole Blood 217 mg/dL (75-99)
--- NOTE | 2018-12-26 09:06 | P.OP ---
Date of Procedure: 12/26/18 Preoperative Diagnosis: GERD History of colon polyps Postoperative Diagnosis: Antral gastritis Small sliding hiatal hernia Minimal esophagitis Normal colon Procedure(s) Performed: On anoscopy EGD Anesthesia: MAC Surgeon: Ricki Ortega Pathology: other (Antrum, esophagus) Condition: stable Disposition: PACU Description of Procedure: The patient's placed on the endoscopy table in the lateral position. She received IV sedation. The gastroscope placed oropharynx passed in the esophagus and into the stomach. Scope then placed through the pylorus. The first and second portion of duodenum appeared normal. Scope was then brought back the antrum and this was mildly inflamed. A biopsies performed. The scope was then retroflexed and there was a small sliding hiatal hernia. The GE junction was at 38 cm. The distal esophagus appeared mildly inflamed a biopsies performed. The proximal esophagus appeared normal. Scope was withdrawn for patient. . Digital rectal examination was performed which revealed no abnormalities. . Flexible colonoscope was then placed in the patient's anus and passed throughout the entire colon. The ileocecal valve was visualized. The cecum, ascending, transverse, descending and sigmoid colon were normal. The rectum was normal as well. There were no masses, polyps or diverticula noted in the entire colon.
[2018-12-26 09:58] VITALS: BP 137/83; PULSE 69; RESP 17
== END 2018-12-26 09:57 | disposition home or self-care (01) ==
LOC: ORWHC2ENDO 08:05
PROVIDERS: ATTEND Surgery
DX: Z12.11 Encounter for screening for malignant neoplasm of colon (principal); K29.50 Unspecified chronic gastritis without bleeding; K21.0 Gastro-esophageal reflux disease with esophagitis; K44.9 Diaphragmatic hernia without obstruction or gangrene; Z86.010 Personal history of colon polyps; I25.10 Atherosclerotic heart disease of native coronary artery without angina pectoris; J44.9 Chronic obstructive pulmonary disease, unspecified; K76.0 Fatty (change of) liver, not elsewhere classified; E11.42 Type 2 diabetes mellitus with diabetic polyneuropathy; E78.5 Hyperlipidemia, unspecified; I10 Essential (primary) hypertension; M19.90 Unspecified osteoarthritis, unspecified site; I73.9 Peripheral vascular disease, unspecified; G89.4 Chronic pain syndrome; M51.16 Intervertebral disc disorders with radiculopathy, lumbar region; K08.109 Complete loss of teeth, unspecified cause, unspecified class; K85.90 Acute pancreatitis without necrosis or infection, unspecified; I25.2 Old myocardial infarction; F17.200 Nicotine dependence, unspecified, uncomplicated; Z79.01 Long term (current) use of anticoagulants; Z79.82 Long term (current) use of aspirin; Z79.4 Long term (current) use of insulin; Z79.899 Other long term (current) drug therapy; Z79.891 Long term (current) use of opiate analgesic; Z88.1 Allergy status to other antibiotic agents; Z95.5 Presence of coronary angioplasty implant and graft; Z95.820 Peripheral vascular angioplasty status with implants and grafts; Z90.49 Acquired absence of other specified parts of digestive tract; Z89.411 Acquired absence of right great toe; Z86.718 Personal history of other venous thrombosis and embolism; Z86.711 Personal history of pulmonary embolism; Z86.73 Personal history of transient ischemic attack (TIA), and cerebral infarction without residual deficits; Z85.828 Personal history of other malignant neoplasm of skin; Z87.440 Personal history of urinary (tract) infections; Z91.81 History of falling; Z98.51 Tubal ligation status
CPT/HCPCS: 88305; 43239; J2704; G0105

== ENCOUNTER 2019-01-14 19:06 | Inpatient (IN) | payer MEDICARE, OTHER ==
[2019-01-14] MEDS ORDERED: SODIUM CHLORIDE 0.9% 500 ML 500 ML IV STA (19:33)
--- NOTE | 2019-01-14 19:41 | ED ---
General Adult HPI - General Chief complaint: GI Bleed Stated complaint: Blood in stool,Rt side flank pain Time Seen by Provider: 01/14/19 19:10 Source: family, RN notes reviewed Mode of arrival: ambulatory Limitations: no limitations - History of Present Illness Initial comments: This a 58-year-old female presents emergency Department complaining of rectal bleeding. Patient states in November she had her gallbladder out and in December she had a colonoscopy and endoscopy. Patient states the last 7 days she has had bright red per rectum every time she goes on to the toilet. Patient does not have any chest pain palpitations difficulty breathing first breath per patient denies any headache patient denies numbness weakness. Patient denies any recent fevers or chills. Patient denies abdominal pain. Patient states she does have a history of hemorrhoids. But she hasn't had those in a while. Patient is on eliquis for DVTs and pulmonary embolisms. - Related Data Home Medications Medication Instructions Recorded Confirmed Gabapentin 800 mg PO TID 12/14/13 01/14/19 Ergocalciferol [Vitamin D2 50,000 unit PO Q14D 08/26/15 01/14/19 (DRISDOL)] Insulin Lispro [humaLOG Kwikpen] See Protocol SQ AC-TID 08/26/15 01/14/19 Insulin Glargine,Hum.rec.anlog 70 unit SQ AC-LUNCH 01/18/17 01/14/19 [Lantus Solostar] Potassium Chloride [K-Tab ER] 10 meq PO BID 03/31/17 01/14/19 Aspirin 81 mg PO DAILY 10/21/17 01/14/19 Furosemide [Lasix] 20 mg PO Q48H 12/26/17 01/14/19 Nitroglycerin Sl Tabs [Nitrostat] 0.4 mg SUBLINGUAL Q5M PRN 10/21/18 01/14/19 Pantoprazole [Protonix] 40 mg PO AC-BRKFST PRN 12/25/18 01/14/19 Sennosides [Senokot] 17.2 mg PO BID PRN 12/25/18 01/14/19 DULoxetine HCL [Cymbalta] 30 mg PO DAILY 01/14/19 01/14/19 Ketorolac 0.5% Ophth Soln [Acular] 1 drops LEFT EYE TID 01/14/19 01/14/19 Omeprazole [PriLOSEC] 20 mg PO DAILY 01/14/19 01/14/19 hydrOXYzine HCL 10 mg PO HS PRN 01/14/19 01/14/19 Previous Rx's Medication Instructions Recorded Rosuvastatin [Crestor] 10 mg PO HS #0 10/01/16 metFORMIN HCL 1,000 mg PO BID #0 08/28/18 Apixaban [Eliquis] 5 mg PO BID #60 tab 10/23/18 Allergies Allergy/AdvReac Type Severity Reaction Status Date / Time vancomycin Allergy Rash/Hives/and Verified 01/14/19 19:56 vomiting diarrhea Review of Systems ROS Statement: Those systems with pertinent positive or pertinent negative responses have been documented in the HPI. ROS Other: All systems not noted in ROS Statement are negative. Past Medical History Past Medical History: Coronary Artery Disease (CAD), Cancer, Chest Pain / Angina, COPD, CVA/TIA, Diabetes Mellitus, Deep Vein Thrombosis (DVT), GERD/Reflux, Hyperlipidemia, Hypertension, Myocardial Infarction (AL), Osteoarthritis (OA), Pulmonary Embolus (PE) Additional Past Medical History / Comment(s): SKIN CA. 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 C/O pain in stomach. Mutiple DVT,mesentaric thrombosis x2, hx GENITAL WARTS, neuropathy, pad, chronic pain syndrome, ddd lumbar region w/radiculopathy, fell 06/2015 tore rt rotator cuff, pancreatitis, uti, non alcoholic fatty liver, poly neuropathy Last Myocardial Infarction Date:: 2010 History of Any Multi-Drug Resistant Organisms: None Reported Past Surgical History: Section, Cholecystectomy, Heart Catheterization, Heart Catheterization With Stent, Orthopedic Surgery, Tonsillectomy, Tubal L igation Additional Past Surgical History / Comment(s): 11 Stents in left leg, fistula left thigh, full mouth teeth extraction, TRAPEASE VENA CAVA FILTER, carpel tunnel, heart stents x4 rca and lad, tumor removal from uterus. Genital warts removed, INGRID. Skin cancer removed from neck, rt great toe amputated, colonoscopy Past Anesthesia/Blood Transfusion Reactions: No Reported Reaction Date of Last Stent Placement:: May 2016 Past Psychological History: Depression, Panic Disorder Smoking Status: Current every day smoker Past Alcohol Use History: None Reported Past Drug Use History: None Reported - Past Family History Mother Family Medical History: Cancer, Congestive Heart Failure (CHF), Diabetes Mellitus, Myocardial Infarction (AL) Additional Family Medical History / Comment(s): Ovarian CA. Mother at age 69. Father Family Medical History: Coronary Artery Disease (CAD), Myocardial Infarction (AL ) Additional Family Medical History / Comment(s): Father at age 70. Sister(s) Family Medical History: Myocardial Infarction (AL) Additional Family Medical History / Comment(s): Patient has one sister with myocardial infarction at age 55. Son(s) Family Medical History: Deep Vein Thrombosis (DVT), Pulmonary Embolus Additional Family Medical History / Comment(s): Patient has 2 sons and one has history of DVT and pulmonary embolism. General Exam - General Exam Comments Initial Comments: GENERAL: Patient is well-developed and well-nourished. Patient is nontoxic and well- hydrated and is in no acute distress. ENT: Neck is soft and supple. No significant lymphadenopathy is noted. Oropharynx is clear. Moist mucous membranes. Neck has full range of motion without eliciting any pain. EYES: The sclera were anicteric and conjunctiva were pink and moist. Extraocular movements were intact and pupils were equal round and reactive to light. Eyelids were unremarkable. PULMONARY: Unlabored respirations. Good breath sounds bilaterally. No audible rales rhonchi or wheezing was noted. CARDIOVASCULAR: There is a regular rate and rhythm without any murmurs gallops or rubs. ABDOMEN: Soft and nontender with normal bowel sounds. RECTAL: There were no obvious areas of bleeding in the rectal exam I sent a Hemoccult off for analysis. SKIN: Skin is clear with no lesions or rashes and otherwise unremarkable. NEUROLOGIC: Patient is alert and oriented x3. Cranial nerves II through XII are grossly intact. Motor and sensory are also intact. Normal speech, volume and content. Symmetrical smile. MUSCULOSKELETAL: Normal extremities with adequate strength and full range of motion. 1+ edema bilaterally patient has bilateral DP pulses. LYMPHATICS: No significant lymphadenopathy is noted PSYCHIATRIC: Normal psychiatric evaluation. Limitations: no limitations Course Vital Signs 01/14/19 19:13 Temperature 98.6 F Pulse Rate 82 Respiratory 16 Rate Blood Pressure 115/75 O2 Sat by Pulse 100 Oximetry Medical Decision Making - Lab Data Result diagrams: 01/14/19 19:33 01/14/19 19:33 Lab Results 01/14/19 01/14/19 01/14/19 Range/Units 19:33 19:33 19:33 WBC 11.2 H (3.8-10.6) k/uL RBC 4.51 (3.80-5.40) m/uL Hgb 12.6 (11.4-16.0) gm/dL Hct 39.0 (34.0-46.0) % MCV 86.4 (80.0-100.0) fL MCH 27.9 (25.0-35.0) pg MCHC 32.3 (31.0-37.0) g/dL RDW 15.9 H (11.5-15.5) % Plt Count 191 (150-450) k/uL Neutrophils % 72 % Lymphocytes % 21 % Monocytes % 4 % Eosinophils % 3 % Basophils % 1 % Neutrophils # 8.1 H (1.3-7.7) k/uL Lymphocytes # 2.4 (1.0-4.8) k/uL Monocytes # 0.4 (0-1.0) k/uL Eosinophils # 0.3 (0-0.7) k/uL Basophils # 0.1 (0-0.2) k/uL Hypochromasia Slight Sodium 135 L (137-145) mmol/L Potassium 4.4 (3.5-5.1) mmol/L Chloride 100 (98-107) mmol/L Carbon Dioxide 25 (22-30) mmol/L Anion Gap 10 mmol/L BUN 9 (7-17) mg/dL Creatinine 0.84 (0.52-1.04) mg/dL Est GFR (CKD-EPI)AfAm 89 (>60 ml/min/1.73 sqM) Est GFR (CKD-EPI)NonAf 77 (>60 ml/min/1.73 sqM) Glucose 378 H (74-99) mg/dL Calcium 9.8 (8.4-10.2) mg/dL Magnesium 1.2 L (1.6-2.3) mg/dL Total Bilirubin 0.7 (0.2-1.3) mg/dL AST 31 (14-36) U/L ALT 27 (9-52) U/L Alkaline Phosphatase 70 (38-126) U/L Troponin I (0.000-0.034) ng/mL Total Protein 7.0 (6.3-8.2) g/dL Albumin 4.0 (3.5-5.0) g/dL Stool Occult Blood Positive H (Negative) 01/14/19 Range/Units 19:33 WBC (3.8-10.6) k/uL RBC (3.80-5.40) m/uL Hgb (11.4-16.0) gm/dL Hct (34.0-46.0) % MCV (80.0-100.0) fL MCH (25.0-35.0) pg MCHC (31.0-37.0) g/dL RDW (11.5-15.5) % Plt Count (150-450) k/uL Neutrophils % % Lymphocytes % % Monocytes % % Eosinophils % % Basophils % % Neutrophils # (1.3-7.7) k/uL Lymphocytes # (1.0-4.8) k/uL Monocytes # (0-1.0) k/uL Eosinophils # (0-0.7) k/uL Basophils # (0-0.2) k/uL Hypochromasia Sodium (137-145) mmol/L Potassium (3.5-5.1) mmol/L Chloride (98-107) mmol/L Carbon Dioxide (22-30) mmol/L Anion Gap mmol/L BUN (7-17) mg/dL Creatinine (0.52-1.04) mg/dL Est GFR (CKD-EPI)AfAm (>60 ml/min/1.73 sqM) Est GFR (CKD-EPI)NonAf (>60 ml/min/1.73 sqM) Glucose (74-99) mg/dL Calcium (8.4-10.2) mg/dL Magnesium (1.6-2.3) mg/dL Total Bilirubin (0.2-1.3) mg/dL AST (14-36) U/L ALT (9-52) U/L Alkaline Phosphatase (38-126) U/L Troponin I <0.012 (0.000-0.034) ng/mL Total Protein (6.3-8.2) g/dL Albumin (3.5-5.0) g/dL Stool Occult Blood (Negative) Disposition Clinical Impression: GI bleed Disposition: ADMITTED IP TO THIS HOSP Referrals: Ramirez Balderas MD [Primary Care Provider] - 1-2 days Time of Disposition: 20:28
[2019-01-14 19:50] LABS: Basophils # (A) 0.1 k/uL (0-0.2); Basophils % (A) 1 %; Eosinophils # (A) 0.3 k/uL (0-0.7); Eosinophils % (A) 3 %; HGB 12.6 gm/dL (11.4-16.0); Hypochromasia Slight; Lymphocytes # (A) 2.4 k/uL (1.0-4.8); Lymphocytes % (A) 21 %; MCH 27.9 pg (25.0-35.0); MCHC 32.3 g/dL (31.0-37.0); MCV 86.4 fL (80.0-100.0); Monocytes # (A) 0.4 k/uL (0-1.0); Monocytes % (A) 4 %; Neutrophils # (A) 8.1 k/uL (1.3-7.7); Neutrophils % (A) 72 %; Platelet Count 191 k/uL (150-450); RBC 4.51 m/uL (3.80-5.40); RDW 15.9 % (11.5-15.5); WBC 11.2 k/uL (3.8-10.6)
[2019-01-14 20:00] LABS: Calcium 9.8 mg/dL (8.4-10.2); INR 1.3 (<1.2); Magnesium 1.2 mg/dL (1.6-2.3); Partial Thromboplastin Time 28.9 sec (22.0-30.0); Potassium 4.4 mmol/L (3.5-5.1); Total Bilirubin 0.7 mg/dL (0.2-1.3)
[2019-01-14] MEDS ORDERED: SODIUM CHLORIDE 0.9% 1,000 ML IV ONE (20:28)
[2019-01-14] MEDS ORDERED: MAGNESIUM SULFATE-D5W PMX 1 GM in DEXTROSE/WATER 1 100ML.BAG IVPB ONE (20:44)
[2019-01-14] MEDS ORDERED: PANTOPRAZOLE 40 MG TABLET PO PRN (23:12)
[2019-01-14] MEDS ORDERED: NITROGLYCERIN SL TABS 0.4 MG TAB SUBLINGUAL PRN (23:12)
[2019-01-14] MEDS ORDERED: FUROSEMIDE 20 MG TAB PO SCH (23:15)
[2019-01-15] MEDS ORDERED: hydrOXYzine HCL 10 MG TAB PO PRN (01:00)
[2019-01-15 04:11] LABS: Basophils % (A) 0 %; Eosinophils # (A) 0.2 k/uL (0-0.7); Eosinophils % (A) 3 %; HCT 33.6 % (34.0-46.0); HGB 11.1 gm/dL (11.4-16.0); Lymphocytes # (A) 1.8 k/uL (1.0-4.8); Lymphocytes % (A) 23 %; MCH 28.2 pg (25.0-35.0); MCHC 32.9 g/dL (31.0-37.0); MCV 85.6 fL (80.0-100.0); Mean Platelet Volume 10.1; Monocytes # (A) 0.3 k/uL (0-1.0); Monocytes % (A) 4 %; Neutrophils # (A) 5.4 k/uL (1.3-7.7); Neutrophils % (A) 69 %; Platelet Count 127 k/uL (150-450); RBC 3.93 m/uL (3.80-5.40); WBC 7.8 k/uL (3.8-10.6)
[2019-01-15 07:08] LABS: Glucose,Whole Blood 185 mg/dL (75-99)
[2019-01-15] MEDS: metFORMIN 500 MG TAB PO SCH ×2 (08:09→22:09)
[2019-01-15] MEDS: POTASSIUM CHLORIDE ER 10 MEQ TAB.ER.PRT PO SCH ×2 (08:10→22:10)
[2019-01-15] MEDS: INSULIN ASPART (NovoLOG) 100 UNIT/ML VIAL SQ SCH ×3 (08:10→17:15)
[2019-01-15] MEDS: DULoxetine HCL 30 MG CAPSULE.DR PO SCH (08:10)
[2019-01-15] MEDS: PANTOPRAZOLE 40 MG TABLET PO SCH (08:10)
[2019-01-15] MEDS: GABAPENTIN 400 MG CAP PO SCH ×3 (08:10→22:11)
[2019-01-15] MEDS: KETOROLAC 0.5% OPHTH DROPS 5 ML BTL LEFT EYE SCH ×3 (08:21→22:09)
[2019-01-15 12:13] LABS: Glucose,Whole Blood 176 mg/dL (75-99)
[2019-01-15] MEDS: HYDROcodone/APAP 10-325MG 1 EACH TAB PO PRN ×2 (13:27→22:11)
[2019-01-15] MEDS: IOPAMIDOL-300 CONTRAST 30 ML VIAL (ORAL USE) PO PRN ×2 (14:25→15:19)
--- NOTE | 2019-01-15 15:14 | P.HPIM ---
History of Present Illness H&P Date: 01/15/19 Chief Complaint: Rectal bleeding This is a 58-year-old female patient of Dr. Balderas and Dr. Bill with history of CAD with multiple cardiac stent placement initially in 2009 to the RCA followed by 2 other stents 1 in the LAD in 2011 and 1 in the obtuse marginal branch#2, most recently cardiac stent in May 2016 to the RCA, circumflex peripheral artery disease with previous stenting done as well has amputation of the right great toe secondary to osteomyelitis, hypertension, COPD, diabetes mellitus type 2, previous multiple DVT and PE requiring chronic anticoagulation on eliquis. Patient was last hospitalized in October of this year for abdominal pain along with acute rectal bleeding. At that time she was switched from Coumadin to eliquis. It was recommended that she undergo endoscopy but patient declined. November 12, patient underwent a laparoscopic cholecystectomy and liver biopsy on November [address] Ortega. Biopsy of the gallbladder revealed chronic cholecystitis with cholelithiasis. Liver biopsy revealed nodular hepatic tissue with bridging fibrosis and large droplet fatty changes. This could represent cryptogenic cirrhosis or related to the area of biopsy. No malignancy was found. November 26 patient presented to the [facility] emergency center for neck and back pain and cervical spine x-ray showed no fracture or mal alignment. Slight reversal of the usual cervical lordosis May relate to muscle strain or spasm. Bilateral mild neural foraminal narrowing at C6/C7 from uncovertebral hypertrophy and facet arthropathy. Patient was discharged home on Flexeril and prednisone for 5 days. December 16, she then presented to the emergency room for abdominal pain nausea and vomiting for [address] weeks. CAT scan of the abdomen and pelvis with contrast revealed some scattered prominent fluid-filled small bowel loops in the mid abdomen could represent regional enteritis but otherwise no acute inflammatory process. Hepatic steatosis, soft tissue nodularity in the subcutaneous fat suggests subcutaneous injections IVC filter, left iliac vein stents. Patient was discharged home on Bentyl omeprazole and Zofran. December 26 patient underwent EGD and colonoscopy with Dr. Ortega. EGD revealed antral gastritis, small sliding hiatal hernia, minimal esophagitis. Colonoscopy was normal. Biopsies revealed mild gastritis, mild esophagitis, no H. pylori. Yesterday, patient presented to [facility] emergency center due to rectal bleeding this been going on for 7 days, bright red every time she goes on the toilet. Patient states that she is having brown stools are looser than normal but not diarrhea. The blood is bright red and she has small blood clots. Since last evening she has had 3-4 bowel movements but no blood. Her normal hemoglobin is noted to be 12-13. Patient also complains of right upper quadrant pain. No chest pain, palpitations, shortness of breath. No fever or chills. No abdominal pain. Hemoglobin 12.6, white count 11.2, platelet count 191. Blood sugar 378. Vital signs are stable, afebrile. Troponin was negative. Patient was admitted to the [facility] on hold, consult with GI. Patient has been made nothing by mouth until seen by GI. Review of Systems Constitutional: Reports weight gain, Denies anorexia, Denies chills, Denies fatigue, Denies fever, Denies lethargy, Denies weight loss Ears, nose, mouth and throat: Denies dysphagia, Denies nasal congestion, Denies nasal discharge, Denies vertigo Cardiovascular: Denies chest pain, Denies decreased exercise tolerance, Denies dyspnea on exertion, Denies edema, Denies lightheadedness, Denies palpitations, Denies syncope Respiratory: Denies cough, Denies cough with sputum, Denies dyspnea, Denies excessive sputum, Denies hemoptysis, Denies home oxygen, Denies respiratory infections Gastrointestinal: Reports as per HPI, Reports abdominal pain (Right upper quadr ant), Reports early satiety, Denies bloating, Denies loss of appetite, Denies nausea, Denies vomiting Genitourinary: Denies dysuria, Denies urgency, Denies urinary frequency Musculoskeletal: Denies frequent falls, Denies gait dysfunction, Denies muscle weakness, Denies myalgias Integumentary: Denies pruritus, Denies rash, Denies wounds Neurological: Denies aphasia, Denies change in mentation, Denies change in speech, Denies numbness, Denies seizures, Denies weakness Past Medical History Past Medical History: Coronary Artery Disease (CAD), Cancer, Chest Pain / Angina, COPD, CVA/TIA, Diabetes Mellitus, Deep Vein Thrombosis (DVT), GERD/Reflux, Hyperlipidemia, Hypertension, Myocardial Infarction ([place]), Osteoarthritis (OA), Pulmonary Embolus (PE) Additional Past Medical History / Comment(s): SKIN CA. 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 C/O pain in stomach. Mutiple DVT,mesentaric thrombosis x2, hx GENITAL WARTS, neuropathy, pad, chronic pain syndrome, ddd lumbar region w/radiculopathy, fell 06/2015 tore rt rotator cuff, pancreatitis, uti, non alcoholic fatty liver, poly neuropathy Last Myocardial Infarction Date:: 2010 History of Any Multi-Drug Resistant Organisms: None Reported Past Surgical History: Section, Cholecystectomy, Heart Catheterization, Heart Catheterization With Stent, Orthopedic Surgery, Tonsillectomy, Tubal Ligation Additional Past Surgical History / Comment(s): 11 Stents in left leg, fistula left thigh, full mouth teeth extraction, TRAPEASE VENA CAVA FILTER, carpel tunnel, heart stents x4 rca and lad, tumor removal from uterus. Genital warts removed, INGRID. Skin cancer removed from neck, rt great toe amputated, colonoscopy cva 2017 no deficits Past Anesthesia/Blood Transfusion Reactions: No Reported Reaction Date of Last Stent Placement:: May 2016 Past Psychological History: Depression, Panic Disorder Additional Psychological History / Comment(s): Depression r/t health issues. Smoking Status: Current every day smoker Past Alcohol Use History: None Reported Additional Past Alcohol Use History / Comment(s): SMOKING 1PPD since 1993.- trying to quit. Past Drug Use History: None Reported - Past Family History Mother Family Medical History: Cancer, Congestive Heart Failure (CHF), Diabetes Mellitus, Myocardial Infarction ([place]) Additional Family Medical History / Comment(s): Ovarian CA. Mother at age 69. Father Family Medical History: Coronary Artery Disease (CAD), Myocardial Infarction ([place]) Additional Family Medical History / Comment(s): Father at age 70. Sister(s) Family Medical History: Myocardial Infarction ([place]) Additional Family Medical History / Comment(s): Patient has one sister with m yocardial infarction at age 55. Son(s) Family Medical History: Deep Vein Thrombosis (DVT), Pulmonary Embolus Additional Family Medical History / Comment(s): Patient has 2 sons and one has history of DVT and pulmonary embolism. Medications and Allergies Home Medications Medication Instructions Recorded Confirmed Type Gabapentin 800 mg PO TID 12/14/13 01/14/19 History Ergocalciferol [Vitamin D2 50,000 unit PO Q14D 08/26/15 01/14/19 History (DRISDOL)] Insulin Lispro [humaLOG Kwikpen] See Protocol SQ AC-TID 08/26/15 01/14/19 History Rosuvastatin [Crestor] 10 mg PO HS #0 10/01/16 01/14/19 Rx Insulin Glargine,Hum.rec.anlog 70 unit SQ HS 01/18/17 01/14/19 History [Lantus Solostar] Potassium Chloride [K-Tab ER] 10 meq PO BID 03/31/17 01/14/19 History Aspirin 81 mg PO DAILY 10/21/17 01/14/19 History Furosemide [Lasix] 20 mg PO Q48H 12/26/17 01/14/19 History metFORMIN HCL 1,000 mg PO BID #0 08/28/18 01/14/19 Rx Nitroglycerin Sl Tabs [Nitrostat] 0.4 mg SUBLINGUAL Q5M PRN 10/21/18 01/14/19 History Apixaban [Eliquis] 5 mg PO BID #60 tab 10/23/18 01/14/19 Rx Pantoprazole [Protonix] 40 mg PO AC-BRKFST PRN 12/25/18 01/14/19 History Sennosides [Senokot] 17.2 mg PO BID PRN 12/25/18 01/14/19 History DULoxetine HCL [Cymbalta] 30 mg PO DAILY 01/14/19 01/14/19 History Ketorolac 0.5% Ophth Soln [Acular] 1 drops LEFT EYE TID 01/14/19 01/14/19 History Omeprazole [PriLOSEC] 20 mg PO DAILY 01/14/19 01/14/19 History hydrOXYzine HCL 10 mg PO HS PRN 01/14/19 01/14/19 History Allergies Allergy/AdvReac Type Severity Reaction Status Date / Time vancomycin Allergy Rash/Hives/and Verified 01/14/19 19:56 vomiting diarrhea Physical Exam Vitals: Vital Signs Temp Pulse Pulse Resp BP BP Pulse Ox 01/15/19 08:00 18 01/15/19 05:58 98.1 F 68 18 126/76 98 01/14/19 21:58 97.9 F 70 18 126/75 98 01/14/19 21:04 98.2 F 89 16 104/80 96 01/14/19 19:13 98.6 F 82 16 115/75 100 Intake and Output 01/14/19 01/15/19 01/15/19 22:59 06:59 14:59 Intake Total 1699 Balance 1699 Intake: Intake, IV Titration 1699 Amount Magnesium Sulfate-D5w Pmx 100 1 gm In Dextrose/Water 1 100ml.bag @ 100 mls/hr IVPB ONCE ONE Rx#: [id number] Sodium Chloride 0.9% 1, 600 000 ml @ 75 mls/hr IV . [id number] ONE Rx#:[id number] Sodium Chloride 0.9% 500 999 ml 500 ml @ 999 mls/hr IV .Q31M STA Rx#:[id number] Other: Voiding Method Toilet # Voids 1 1 Weight 93.894 kg Gen: This is a 58-year-old female. She is resting in bed and appears to be comfortable and in no acute distress. HEENT: Head is atraumatic, normocephalic. Pupils equal, round. Sclerae is anicteric. NECK: Supple. No JVD. No lymphadenopathy. No thyromegaly. LUNGS: Clear to auscultation. No wheezes or rhonchi. No intercostal retractions. HEART: Regular rate and rhythm. No murmur. ABDOMEN: Soft. Bowel sounds are present. No masses. Mild right upper quadrant abdominal tenderness. EXTREMITIES: No pedal edema. No calf tenderness. NEUROLOGICAL: Patient is awake, alert and oriented x3. Cranial nerves 2 through 12 are grossly intact. Results CBC & Chem 7: 01/15/19 03:52 01/14/19 19:33 Labs: Abnormal Lab Results - Last 24 Hours (Table) 01/14/19 01/14/19 01/14/19 Range/Units 19:33 19:33 19:33 WBC 11.2 H (3.8-10.6) k/uL Hgb (11.4-16.0) gm/dL Hct (34.0-46.0) % RDW 15.9 H (11.5-15.5) % Plt Count (150-450) k/uL Neutrophils # 8.1 H (1.3-7.7) k/uL PT (9.0-12.0) sec INR (<1.2) Sodium 135 L (137-145) mmol/L Glucose 378 H (74-99) mg/dL POC Glucose (mg/dL) (75-99) mg/dL Magnesium 1.2 L (1.6-2.3) mg/dL Stool Occult Blood Positive H (Negative) 01/14/19 01/15/19 01/15/19 Range/Units 19:33 03:52 07:06 WBC (3.8-10.6) k/uL Hgb 11.1 L (11.4-16.0) gm/dL Hct 33.6 L (34.0-46.0) % RDW (11.5-15.5) % Plt Count 127 L (150-450) k/uL Neutrophils # (1.3-7.7) k/uL PT 13.0 H (9.0-12.0) sec INR 1.3 H (<1.2) Sodium (137-145) mmol/L Glucose (74-99) mg/dL POC Glucose (mg/dL) 185 H (75-99) mg/dL Magnesium (1.6-2.3) mg/dL Stool Occult Blood (Negative) Thrombosis Risk Factor Assmnt - DVT/VTE Prophylaxis DVT/VTE Prophylaxis: Mechanical Prophylaxis ordered - Choose All That Apply Any of the Below Risk Factors Present?: Yes Each Factor Represents 1 point: Acute OR, Age 41-60 years, Obesity (BMI >25), Swollen legs (current) Other Risk Factors: Yes Each Risk Factor Represents 3 Points: History of DVT/PE Other congenital or acquired thrombophilia - If yes, enter type in comment: No Thrombosis Risk Factor Assessment Total Risk Factor Score: 7 Thrombosis Risk Factor Assessment Level: High Risk Assessment and Plan Plan: 1. Acute rectal bleeding. Consult with GI. Aspirin and eliquis on hold. Patient is currently nothing by mouth until seen by GI. Continue Protonix 40 mg daily. Eliquis will be resumed if okay with GI as patient has not had bleeding since last evening. We'll plan to keep aspirin on hold for 2 weeks. 2. Diabetes mellitus type 2, uncontrolled with hyperglycemia. Continue Levemir 70 units at bedtime, metformin 1000 mg twice daily, NovoLog scale before meals and at bedtime. 3. Coronary artery disease status post multiple PCI with ischemic cardiomyopathy. Continue Lasix 20 mg every 48 hours. Hold aspirin and eliquis. 4. Hypertension and hypertensive cardiovascular disease. Continue Lasix. 5. Chronic DVT and PEs. Hold. 6. Chronic tobacco use and dependence with COPD. smoking cessation. 7. Hyperlipidemia. Hold Crestor 10 mg at bedtime. 8. Diabetic polyneuropathy. Continue gabapentin 800 mg 3 times daily 9. Severe PAD. 10. Recurrent depression. Continue Cymbalta 30 mg daily. 11. GI prophylaxis. Protonix. 12. DVT prophylaxis. AMANDEEP mullins and SCDs. Patient admitted to the hospital for a minimum of 2 night stay. Discharge plan: Return home on Saturday pending GI recommendations. Impression and plan of care have been directed as dictated by the signing physician. Kerri Kevin nurse practitioner acting as scribe for signing physician.
--- NOTE | 2019-01-15 15:17 | P.CONS ---
History of Present Illness - Reason for Consult Consult date: 01/15/19 Rectal bleeding Requesting physician: Torrie Rosenberg - Chief Complaint Rectal bleeding - History of Present Illness 58-year-old female with a history of recent cholecystectomy, DVT PE maintained on ELIQUIS and aspirin presented with painless rectal bleeding that concerned he r. Patient recently underwent EGD colonoscopy 3 weeks ago with general surgery with evidence of gastritis. Colonoscopy was within normal limits. Patient had a few episodes of bright red blood per rectum. Denies constipation. No fever or chills. INR 1.3. BUN 9. Creatinine 0.8. Admission hemoglobin 12.6 presently 11.1. Previous hemoglobin on last 6 months between 11 and 13 range. Denies hematemesis or melena. CT abdomen pending. Review of Systems Constitutional: Denies fever, chills, sweats, weight gain, or loss. HEENT: Negative for migraines, blurred vision or loss, earaches, drainage, tinnitus, oral mucosal lesions, dysphagia, or odynophagia. CARDIAC: Negative for chest pain, arrhythmias, or palpitation. RESPIRATORY: Negative for shortness of breath, hemoptysis, cough, or sputum production. GI: See HPI for pertinent findings. : Negative for hematuria, urgency, frequency, polyuria, or dysuria. GYNc: Denies possibility of . Negative vaginal discharge. MUSCULOSKELETAL: Negative for muscle aches, swelling, arthritis, and arthral gias. NEUROLOGIC: Negative for stroke or TIA. ENDOCRINE: Negative for thyroid problems. SKIN: Negative for rash or itching. PSYCHIATRIC: Negative history for depression and anxiety Past Medical History Past Medical History: Coronary Artery Disease (CAD), Cancer, Chest Pain / Angina, COPD, CVA/TIA, Diabetes Mellitus, Deep Vein Thrombosis (DVT), GERD/Reflux, Hyperlipidemia, Hypertension, Myocardial Infarction ([place]), Osteoarthritis (OA), Pulmonary Embolus (PE) Additional Past Medical History / Comment(s): SKIN CA. 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 C/O pain in stomach. Mutiple DVT,mesentaric thrombosis x2, hx GENITAL WARTS, neuropathy, pad, chronic pain syndrome, ddd lumbar region w/radiculopathy, fell 06/2015 tore rt rotator cuff, pancreatitis, uti, non alcoholic fatty liver, poly neuropathy Last Myocardial Infarction Date:: 2010 History of Any Multi-Drug Resistant Organisms: None Reported Past Surgical History: Section, Cholecystectomy, Heart Catheterization, Heart Catheterization With Stent, Orthopedic Surgery, Tonsillectomy, Tubal Ligation Additional Past Surgical History / Comment(s): 11 Stents in left leg, fistula left thigh, full mouth teeth extraction, TRAPEASE VENA CAVA FILTER, carpel tunnel, heart stents x4 rca and lad, tumor removal from uterus. Genital warts removed, INGRID. Skin cancer removed from neck, rt great toe amputated, colonoscopy cva 2017 no deficits Past Anesthesia/Blood Transfusion Reactions: No Reported Reaction Date of Last Stent Placement:: May 2016 Past Psychological History: Depression, Panic Disorder Additional Psychological History / Comment(s): Depression r/t health issues. Smoking Status: Current every day smoker Past Alcohol Use History: None Reported Additional Past Alcohol Use History / Comment(s): SMOKING 1PPD since 1993.- trying to quit. Past Drug Use History: None Reported - Past Family History Mother Family Medical History: Cancer, Congestive Heart Failure (CHF), Diabetes Mellitus, Myocardial Infarction ([place]) Additional Family Medical History / Comment(s): Ovarian CA. Mother at age 69. Father Family Medical History: Coronary Artery Disease (CAD), Myocardial Infarction ([place]) Additional Family Medical History / Comment(s): Father at age 70. Sister(s) Family Medical History: Myocardial Infarction ([place]) Additional Family Medical History / Comment(s): Patient has one sister with myocardial infarction at age 55. Son(s) Family Medical History: Deep Vein Thrombosis (DVT), Pulmonary Embolus Additional Family Medical History / Comment(s): Patient has 2 sons and one has history of DVT and pulmonary embolism. Medications and Allergies Home Medications Medication Instructions Recorded Confirmed Type Gabapentin 800 mg PO TID 12/14/13 01/14/19 History Ergocalciferol [Vitamin D2 50,000 unit PO Q14D 08/26/15 01/14/19 History (DRISDOL)] Insulin Lispro [humaLOG Kwikpen] See Protocol SQ AC-TID 08/26/15 01/14/19 History Rosuvastatin [Crestor] 10 mg PO HS #0 10/01/16 01/14/19 Rx Insulin Glargine,Hum.rec.anlog 70 unit SQ HS 01/18/17 01/14/19 History [Lantus Solostar] Potassium Chloride [K-Tab ER] 10 meq PO BID 03/31/17 01/14/19 History Aspirin 81 mg PO DAILY 10/21/17 01/14/19 History Furosemide [Lasix] 20 mg PO Q48H 12/26/17 01/14/19 History metFORMIN HCL 1,000 mg PO BID #0 08/28/18 01/14/19 Rx Nitroglycerin Sl Tabs [Nitrostat] 0.4 mg SUBLINGUAL Q5M PRN 10/21/18 01/14/19 History Apixaban [Eliquis] 5 mg PO BID #60 tab 10/23/18 01/14/19 Rx Pantoprazole [Protonix] 40 mg PO AC-BRKFST PRN 12/25/18 01/14/19 History Sennosides [Senokot] 17.2 mg PO BID PRN 12/25/18 01/14/19 History DULoxetine HCL [Cymbalta] 30 mg PO DAILY 01/14/19 01/14/19 History Ketorolac 0.5% Ophth Soln [Acular] 1 drops LEFT EYE TID 01/14/19 01/14/19 History Omeprazole [PriLOSEC] 20 mg PO DAILY 01/14/19 01/14/19 History hydrOXYzine HCL 10 mg PO HS PRN 01/14/19 01/14/19 History Allergies Allergy/AdvReac Type Severity Reaction Status Date / Time vancomycin Allergy Rash/Hives/and Verified 01/14/19 19:56 vomiting diarrhea Physical Exam Vitals: Vital Signs Temp Pulse Pulse Resp BP BP Pulse Ox 01/15/19 13:38 97.6 F 60 18 134/79 97 01/15/19 08:00 18 01/15/19 05:58 98.1 F 68 18 126/76 98 01/14/19 21:58 97.9 F 70 18 126/75 98 01/14/19 21:04 98.2 F 89 16 104/80 96 01/14/19 19:13 98.6 F 82 16 115/75 100 Intake and Output 01/15/19 01/15/19 01/15/19 06:59 14:59 22:59 Intake Total 1699 Balance 1699 Intake: Intake, IV Titration 1699 Amount Magnesium Sulfate-D5w Pmx 100 1 gm In Dextrose/Water 1 100ml.bag @ 100 mls/hr IVPB ONCE ONE Rx#: [id number] Sodium Chloride 0.9% 1, 600 000 ml @ 75 mls/hr IV . [id number] ONE Rx#:[id number] Sodium Chloride 0.9% 500 999 ml 500 ml @ 999 mls/hr IV .Q31M STA Rx#:[id number] Other: Voiding Method Toilet # Voids 1 3 # Bowel Movements 0 General appearance: The patient is alert, oriented, in no acute distress. HET: Head is normocephalic and atraumatic. Pupils are equal and reactive. Oropharynx is clear without lesions. Neck: Supple without lymphadenopathy. Trachea midline. Heart: S1 S2. Regular rate and rhythm. Lungs: No crackles or wheezes are heard. Abdomen: Soft, nontender, nondistended with bowel sounds. No peritoneal signs. No palpable organomegaly or masses. Extremities: Normal skin color and turgor. No cyanosis, rash, ulceration, clubbing, or edema. Radial and pedal pulses are 2/4 bilaterally. Neurological: No focal deficits. Strength and sensation are grossly intact. Results CBC & Chem 7: 01/15/19 03:52 01/14/19 19:33 Labs: Abnormal Lab Results - Last 24 Hours (Table) 01/14/19 01/14/19 01/14/19 Range/Units 19:33 19:33 19:33 WBC 11.2 H (3.8-10.6) k/uL Hgb (11.4-16.0) gm/dL Hct (34.0-46.0) % RDW 15.9 H (11.5-15.5) % Plt Count (150-450) k/uL Neutrophils # 8.1 H (1.3-7.7) k/uL PT (9.0-12.0) sec INR (<1.2) Sodium 135 L (137-145) mmol/L Glucose 378 H (74-99) mg/dL POC Glucose (mg/dL) (75-99) mg/dL Magnesium 1.2 L (1.6-2.3) mg/dL Stool Occult Blood Positive H (Negative) 01/14/19 01/15/19 01/15/19 Range/Units 19:33 03:52 07:06 WBC (3.8-10.6) k/uL Hgb 11.1 L (11.4-16.0) gm/dL Hct 33.6 L (34.0-46.0) % RDW (11.5-15.5) % Plt Count 127 L (150-450) k/uL Neutrophils # (1.3-7.7) k/uL PT 13.0 H (9.0-12.0) sec INR 1.3 H (<1.2) Sodium (137-145) mmol/L Glucose (74-99) mg/dL POC Glucose (mg/dL) 185 H (75-99) mg/dL Magnesium (1.6-2.3) mg/dL Stool Occult Blood (Negative) 01/15/19 Range/Units 12:12 WBC (3.8-10.6) k/uL Hgb (11.4-16.0) gm/dL Hct (34.0-46.0) % RDW (11.5-15.5) % Plt Count (150-450) k/uL Neutrophils # (1.3-7.7) k/uL PT (9.0-12.0) sec INR (<1.2) Sodium (137-145) mmol/L Glucose (74-99) mg/dL POC Glucose (mg/dL) 176 H (75-99) mg/dL Magnesium (1.6-2.3) mg/dL Stool Occult Blood (Negative) CT scan - abdomen: pending Assessment and Plan Assessment: Impression: 1. Painless rectal bleeding status post recent unremarkable EGD colonoscopy. Patient receiving anticoagulation and aspirin therapy for history of DVT PE. Rectal bleeding possibly perirectal in nature possible focal area of in flammatory possible ischemic colitis exacerbated by antiplatelet medications. Hemoglobin stable 11.1. Plan: 1. CT abdomen ordered we'll review. Continue with light diet CBC monitoring. Thank you for this kind referral and the opportunity to participate in the care of your patient. This consultation was discussed with Dr. Jhaveri. The impression and plan of care have been directed as dictated.
[2019-01-15 17:14] LABS: Glucose,Whole Blood 139 mg/dL (75-99)
--- NOTE | 2019-01-15 17:21 | CT ---
EXAMINATION TYPE: CT abdomen pelvis w con DATE OF EXAM: 01/15/2019 COMPARISON: 12/16/2018 HISTORY: RUQ abdominal pain and rectal bleeding. CT DLP: 1770 mGycm Automated exposure control for dose reduction was used. TECHNIQUE: Helical acquisition of images was performed from the lung bases through the pelvis. CONTRAST: Performed with Oral Contrast and with IV Contrast, patient injected with 100ml mL of Isovue 300. FINDINGS: There is mild subsegmental atelectasis at the lung bases. Heart size is normal. There is no pericardi al effusion. Liver shows no focal defect. Bile ducts are not dilated. There is cholecystectomy. Splee n appears normal. There is no evidence of pancreatic mass. Stomach appears normal. There is 2.5 cm low-density right adrenal mass. Kidneys show satisfactory contrast opacification. The re is no hydronephrosis. There is 1 cm cortical cyst lower pole right kidney. Ureters are not dilated . Bladder distends smoothly. There is no free fluid in the pelvis. Uterus is anteverted. There is no inguinal hernia. There are multiple varicose vessels in the suprapubic region. There is inferior vena cava filter. There is stent in the left iliac vein and in the upper right iliac vein. There is exten sive vascular calcification in the abdominal aorta and its branches. Left iliac vein is probably thro mbosed. There is no ascites. There is no free air. There are spondylotic changes in the lumbar spine. I see no bony destructive process. There is no com pression fracture. Bony pelvis is intact. IMPRESSION: THERE ARE COLLATERAL VENOUS DRAINAGE OF THE LEFT FEMORAL VEIN INTO THE RIGHT FEMORAL VEIN. THERE IS S TENT IN THE LEFT ILIAC VEIN and APPARENT THROMBOSIS. NO SIGN OF ACUTE ABDOMEN AND PELVIS. NO SIGNIFIC ANT CHANGE COMPARED TO OLD EXAM. STABLE LOW-DENSITY RIGHT ADRENAL MASS CONSISTENT WITH BENIGN DISEASE .
[2019-01-15] MEDS ORDERED: ATORVASTATIN 20 MG TAB PO SCH (21:00)
[2019-01-15] MEDS ORDERED: INSULIN DETEMIR (LEVEMIR) 100 UNIT/ML SYR SQ SCH (21:00)
[2019-01-15 21:37] LABS: Glucose,Whole Blood 154 mg/dL (75-99)
[2019-01-15] MEDS: APIXABAN 5 MG TAB PO SCH (22:16)
[2019-01-15 23:07] VITALS: TEMP 97.4
[2019-01-16 07:03] LABS: Glucose,Whole Blood 59 mg/dL (75-99)
[2019-01-16] MEDS: INSULIN ASPART (NovoLOG) 100 UNIT/ML VIAL SQ SCH ×2 (07:04→11:44)
[2019-01-16 07:16] LABS: Glucose,Whole Blood 55 mg/dL (75-99)
[2019-01-16 07:21] VITALS: BP 122/69; PULSE 60; RESP 20
[2019-01-16 07:36] LABS: Glucose,Whole Blood 111 mg/dL (75-99)
[2019-01-16] MEDS: DULoxetine HCL 30 MG CAPSULE.DR PO SCH (08:40)
[2019-01-16] MEDS: POTASSIUM CHLORIDE ER 10 MEQ TAB.ER.PRT PO SCH (08:40)
[2019-01-16] MEDS: PANTOPRAZOLE 40 MG TABLET PO SCH (08:41)
[2019-01-16] MEDS: APIXABAN 5 MG TAB PO SCH (08:41)
[2019-01-16] MEDS: metFORMIN 500 MG TAB PO SCH (08:42)
[2019-01-16] MEDS: KETOROLAC 0.5% OPHTH DROPS 5 ML BTL LEFT EYE SCH (08:42)
[2019-01-16] MEDS: GABAPENTIN 400 MG CAP PO SCH (08:45)
[2019-01-16] MEDS: HYDROcodone/APAP 10-325MG 1 EACH TAB PO PRN (08:45)
[2019-01-16 11:34] LABS: Glucose,Whole Blood 116 mg/dL (75-99)
[2019-01-16 11:40] LABS: HCT 35.7 % (34.0-46.0); HGB 11.4 gm/dL (11.4-16.0); Hypochromasia Slight; MCH 28.2 pg (25.0-35.0); Mean Platelet Volume 9.4; Platelet Count 140 k/uL (150-450); RBC 4.06 m/uL (3.80-5.40); RDW 15.2 % (11.5-15.5)
--- NOTE | 2019-01-16 13:56 | P.DS ---
Providers Date of admission: 01/15/19 13:30 Expected date of discharge: 01/16/19 Attending physician: Torrie Rosenberg Consults: 01/14/19 20:28 Consult Physician Urgent Consulting Provider: Natasha Cruz Consult Reason/Comments: GI bleed Do you want consulting provider notified?: Yes Primary care physician: [facility] Course: This is a 58-year-old female patient of Dr. Balderas and Dr. Bill with history of CAD with multiple cardiac stent placement initially in 2009 to the RCA followed by 2 other stents 1 in the LAD in 2011 and 1 in the obtuse marginal branch#2, most recently cardiac stent in May 2016 to the RCA, circumflex peripheral artery disease with previous stenting done as well has amputation of the right great toe secondary to osteomyelitis, hypertension, COPD, diabetes mellitus type 2, previous multiple DVT and PE requiring chronic anticoagulation on eliquis. Patient was last hospitalized in October of this year for abdominal pain along with acute rectal bleeding. At that time she was switched from Coumadin to eliquis. It was recommended that she undergo endoscopy but patient declined. November 12, patient underwent a laparoscopic cholecystectomy and liver biopsy on November [address] Ortega. Biopsy of the gallbladder revealed chronic cholecystitis with cholelithiasis. Liver biopsy revealed nodular hepatic tissue with bridging fibrosis and large droplet fatty changes. This could represent cryptogenic cirrhosis or related to the area of biopsy. No malignancy was found. November 26 patient presented to the [facility] emergency center for neck and back pain and cervical spine x-ray showed no fracture or malalignment. Slight reversal of the usual cervical lordosis May relate to muscle strain or spasm. Bilateral mild neural foraminal narrowing at C6/C7 from uncovertebral hypertrophy and facet arthropathy. Patient was discharged home on Flexeril and prednisone for 5 days. December 16, she then presented to the emergency room for abdominal pain nausea and vomiting for [address] weeks[address] CAT scan of the abdomen and pelvis with contrast revealed some scattered prominent fluid-filled small bowel loops in the mid abdomen could represent regional enteritis but otherwise no acute inflammatory process. Hepatic steatosis, soft tissue nodularity in the subcutaneous fat suggests subcutaneous injections IVC filter, left iliac vein stents. Patient was discharged home on Bentyl omeprazole and Zofran. December 26 patient underwent EGD and colonoscopy with Dr. Ortega. EGD revealed antral gastritis, small sliding hiatal hernia, minimal esophagitis. Colonoscopy was normal. Biopsies revealed mild gastritis, mild esophagitis, no H. pylori. Yesterday, patient presented to [facility] emergency center due to rectal bleeding this been going on for 7 days, bright red every time she goes on the toilet. Patient states that she is having brown stools are looser than normal but not diarrhea. The blood is bright red and she has small blood clots. Since last evening she has had 3-4 bowel movements but no blood. Her normal hemoglobin is noted to be 12-13. Patient also complains of right upper quadrant pain. No chest pain, palpitations, shortness of breath. No fever or chills. No abdominal pain. Hemoglobin 12.6, white count 11.2, platelet count 191. Blood sugar 378. Vital signs are stable, afebrile. Troponin was negative. Patient was admitted to the [facility] floor, eliquis on hold, consult with GI. Patient has been made nothing by mouth until seen by GI. 01/16: Patient has been evaluated by GI. CAT scan of the abdomen and pelvis reveals collateral venous drainage of the left femoral vein into the right femoral vein. Stent in the left iliac vein and apparent thrombosis. No sign of acute abdomen and pelvis. No significant change compared to old exam. Stable low density right adrenal mass consistent with benign disease. Patient was started on a clear liquid dinner last night. Repeat CBC reveals hemoglobin of 11.4. Capillary blood glucose this morning before breakfast was 59 back up to 111 - 116 at lunchtime. Patient states that she had a good bowel movement this morning with no signs of blood. Patient is complaining of trace pedal edema and she has been instructed to increase frequency of her Lasix and potassium to daily for 1 week. The patient will be discharged home today in stable condition. She has been resumed on eliquis and aspirin will be on hold for 2 weeks. Discharge diagnoses: 1. Acute rectal bleeding possibly related to hemorrhoids. 2. Diabetes mellitus type 2, uncontrolled with hyperglycemia. 3. Coronary artery disease status post multiple PCI with ischemic cardiomyopathy. 4. Hypertension and hypertensive cardiovascular disease. 5. Chronic DVT and PEs. 6. Chronic tobacco use and dependence with COPD. 7. Hyperlipidemia. 8. Diabetic polyneuropathy. 9. Severe PAD. 10. Recurrent depression. Discharge plan: home Impression and plan of care have been directed as dictated by the signing physician. Kerri Kevin nurse practitioner acting as scribe for signing physician. Patient Condition at Discharge: Good Plan - Discharge Summary New Discharge Prescriptions: Continue Gabapentin 800 mg PO TID Ergocalciferol [Vitamin D2 (DRISDOL)] 50,000 unit PO Q14D Insulin Lispro [humaLOG Kwikpen] See Protocol SQ AC-TID Rosuvastatin [Crestor] 10 mg PO HS #0 Insulin Glargine,Hum.rec.anlog [Lantus Solostar] 70 unit SQ HS Potassium Chloride [K-Tab ER] 10 meq PO BID Furosemide [Lasix] 20 mg PO Q48H metFORMIN HCL 1,000 mg PO BID #0 Nitroglycerin Sl Tabs [Nitrostat] 0.4 mg SUBLINGUAL Q5M PRN PRN Reason: Chest Pain Apixaban [Eliquis] 5 mg PO BID #60 tab Pantoprazole [Protonix] 40 mg PO AC-BRKFST PRN PRN Reason: GERD Sennosides [Senokot] 17.2 mg PO BID PRN PRN Reason: Constipation Omeprazole [PriLOSEC] 20 mg PO DAILY hydrOXYzine HCL 10 mg PO HS PRN PRN Reason: Itching Ketorolac 0.5% Ophth Soln [Acular 0.5%] 1 drops LEFT EYE TID DULoxetine HCL [Cymbalta] 30 mg PO DAILY Discontinued Aspirin 81 mg PO DAILY Discharge Medication List Gabapentin 800 mg PO TID 12/14/13 [History] Ergocalciferol [Vitamin D2 (DRISDOL)] 50,000 unit PO Q14D 08/26/15 [History] Insulin Lispro [humaLOG Kwikpen] See Protocol SQ AC-TID 08/26/15 [History] Rosuvastatin [Crestor] 10 mg PO HS #0 10/01/16 [Rx] Insulin Glargine,Hum.rec.anlog [Lantus Solostar] 70 unit SQ HS 01/18/17 [History] Potassium Chloride [K-Tab ER] 10 meq PO BID 03/31/17 [History] Furosemide [Lasix] 20 mg PO Q48H 12/26/17 [History] metFORMIN HCL 1,000 mg PO BID #0 08/28/18 [Rx] Nitroglycerin Sl Tabs [Nitrostat] 0.4 mg SUBLINGUAL Q5M PRN 10/21/18 [History] Apixaban [Eliquis] 5 mg PO BID #60 tab 10/23/18 [Rx] Pantoprazole [Protonix] 40 mg PO AC-BRKFST PRN 12/25/18 [History] Sennosides [Senokot] 17.2 mg PO BID PRN 12/25/18 [History] DULoxetine HCL [Cymbalta] 30 mg PO DAILY 01/14/19 [History] Ketorolac 0.5% Ophth Soln [Acular 0.5%] 1 drops LEFT EYE TID 01/14/19 [History] Omeprazole [PriLOSEC] 20 mg PO DAILY 01/14/19 [History] hydrOXYzine HCL 10 mg PO HS PRN 01/14/19 [History] Follow up Appointment(s)/Referral(s): Ramirez Balderas MD [Primary Care Provider] - 01/23/19 9:00 am Ramiro Jhaveri MD [STAFF PHYSICIAN] - 01/27/19 3:30 pm Patient Instructions/Handouts: Gastrointestinal Bleeding (DC) Activity/Diet/Wound Care/Special Instructions: Hold aspirin 81 mg for 2 weeks. Lasix daily (vs every 48 hours) x 1 week and take extra potassium during that week. Discharge Disposition: HOME SELF-CARE
--- NOTE | 2019-01-16 14:46 | P.PN ---
Subjective Progress Note Date: 01/16/19 Principal diagnosis: Rectal bleeding 58-year-old female admitted with bright red blood per rectum after undergoing unremarkable EGD colonoscopy 3 weeks ago. No recurrence of rectal bleeding. Computed tomography scan reported no acute abdominal process. Hemoglobin stable 11.4. Discharge today. Objective - Vital Signs Vital signs: Vital Signs Temp 97.4 F L 01/16/19 06:00 Pulse 60 01/16/19 06:00 Resp 20 01/16/19 06:00 BP 122/69 01/16/19 06:00 Pulse Ox 97 01/16/19 06:00 Intake & Output 01/15/19 01/16/19 01/16/19 18:59 06:59 18:59 Intake Total 840 Balance 840 Intake: Intake, IV Titration 600 Amount Sodium Chloride 0.9% 1, 600 000 ml @ 75 mls/hr IV . [id number] ONE Rx#:[id number] Oral 240 Other: Voiding Method Toilet # Voids 3 1 # Bowel Movements 0 - Exam General appearance: The patient is alert, oriented, in no acute distress. HET: Head is normocephalic and atraumatic. Pupils are equal and reactive. Oropharynx is clear without lesions. Neck: Supple without lymphadenopathy. Trachea midline. Heart: S1 S2. Regular rate and rhythm. Lungs: No crackles or wheezes are heard. Abdomen: Soft, nontender, nondistended with bowel sounds. No peritoneal signs. No palpable organomegaly or masses. Extremities: Normal skin color and turgor. No cyanosis, rash, ulceration, clubbing, or edema. Radial and pedal pulses are 2/4 bilaterally. Neurological: No focal deficits. Strength and sensation are grossly intact. - Labs CBC & Chem 7: 01/16/19 11:21 01/14/19 19:33 Labs: Abnormal Lab Results - Last 24 Hours (Table) 01/15/19 01/15/19 01/16/19 Range/Units 17:11 21:06 06:59 Plt Count (150-450) k/uL POC Glucose (mg/dL) 139 H 154 H 59 L (75-99) mg/dL 01/16/19 01/16/19 01/16/19 Range/Units 07:15 07:34 11:21 Plt Count 140 L (150-450) k/uL POC Glucose (mg/dL) 55 L 111 H (75-99) mg/dL 01/16/19 Range/Units 11:32 Plt Count (150-450) k/uL POC Glucose (mg/dL) 116 H (75-99) mg/dL Assessment and Plan Assessment: Impression: 1. Painless rectal bleeding status post recent unremarkable EGD colonoscopy. Patient receiving anticoagulation and aspirin therapy for history of DVT PE. Rectal bleeding possibly perirectal in nature possible focal area of inflammatory possible ischemic colitis exacerbated by antiplatelet medications, rectal bleeding has resolved. Hemoglobin stable 11.4. Plan: 1. Patient has been discharged. Follow with PCP as advised. Assessment and plan a care discussed with Dr. Jhaveri
== END 2019-01-16 13:57 | disposition home or self-care (01) | DRG 394 ==
LOC: EC 19:06 → 4MS4W 20:29 → OBSVTOIN 01-15 13:30
PROVIDERS: ADMIT Family Medicine; ATTEND Family Medicine
DX: K64.9 Unspecified hemorrhoids (principal); F33.9 Major depressive disorder, recurrent, unspecified; E11.42 Type 2 diabetes mellitus with diabetic polyneuropathy; E11.51 Type 2 diabetes mellitus with diabetic peripheral angiopathy without gangrene; E11.65 Type 2 diabetes mellitus with hyperglycemia; E27.9 Disorder of adrenal gland, unspecified; E78.5 Hyperlipidemia, unspecified; Z71.6 Tobacco abuse counseling; F17.210 Nicotine dependence, cigarettes, uncomplicated; F41.0 Panic disorder [episodic paroxysmal anxiety]; G89.4 Chronic pain syndrome; I11.9 Hypertensive heart disease without heart failure; I25.10 Atherosclerotic heart disease of native coronary artery without angina pectoris; I25.2 Old myocardial infarction; I25.5 Ischemic cardiomyopathy; Z86.711 Personal history of pulmonary embolism; Z86.718 Personal history of other venous thrombosis and embolism; Z79.01 Long term (current) use of anticoagulants; J44.9 Chronic obstructive pulmonary disease, unspecified; K21.0 Gastro-esophageal reflux disease with esophagitis; K44.9 Diaphragmatic hernia without obstruction or gangrene; K76.0 Fatty (change of) liver, not elsewhere classified; Z90.49 Acquired absence of other specified parts of digestive tract; M46.90 Unspecified inflammatory spondylopathy, site unspecified; M48.02 Spinal stenosis, cervical region; Z79.4 Long term (current) use of insulin; Z79.82 Long term (current) use of aspirin; Z79.899 Other long term (current) drug therapy; Z80.41 Family history of malignant neoplasm of ovary; Z82.49 Family history of ischemic heart disease and other diseases of the circulatory system; Z83.3 Family history of diabetes mellitus; Z85.828 Personal history of other malignant neoplasm of skin; Z86.73 Personal history of transient ischemic attack (TIA), and cerebral infarction without residual deficits; Z95.5 Presence of coronary angioplasty implant and graft
CPT/HCPCS: 36415; 74177; 80053; 82272; 83735; 84484; 85025; 85027; 85610; 85730; 86850; 86900; 86901; 99285

== ENCOUNTER → 2019-02-27 | Outpatient (CLI) | payer MEDICARE, OTHER ==
--- NOTE | 2019-02-27 11:11 | US ---
EXAMINATION TYPE: US abdomen complete DATE OF EXAM: 02/27/2019 COMPARISON: NONE CLINICAL HISTORY: Acute pancreatitis w/o infection K85.90. abd pain EXAM MEASUREMENTS: Liver Length: 17.3 cm Gallbladder Wall: Surgically absent CBD: 0.4 cm Spleen: 12.6 cm Right Kidney: 9.8 x 3.8 x 4.7 cm Left Kidney: 10.0 x 4.5 x 5.4 cm *bowel gas and habitus limits exam Pancreas: Partially obscured by bowel gas and limited patient body habitus. No discrete peripancreat ic fluid collection. Liver: There is increased echogenicity of the hepatic parenchyma with diminished visualization of th e portal triads most commonly relating to hepatic steatosis and limiting evaluation for underlying he patic masses. Gallbladder: Surgically absent Evidence for sonographic Gaines's sign: no CBD: wnl Spleen: wnl Right Kidney: wnl Left Kidney: wnl Upper IVC: wnl Abd Aorta: wnl The intrahepatic portion of the IVC and proximal abdominal aorta are within normal limits. There is no evidence of cholelithiasis. Common bile duct is unremarkable. Pancreas is suboptimally visualized . The spleen is unremarkable. Kidneys are symmetric and free of hydronephrosis. No renal lesions ar e seen. IMPRESSION: 1. Limited evaluation of the pancreas in this patient with known pancreatitis. No discrete peripancre atic fluid collections are seen. 2. Sonographic findings most commonly related to hepatic steatosis. Correlate with liver function lupis ts.
== END | disposition home or self-care (01) ==
LOC: RADUSWWP 10:07
PROVIDERS: ATTEND Internal Medicine Geriatric Medicine
DX: K85.90 Acute pancreatitis without necrosis or infection, unspecified (principal)
CPT/HCPCS: 76700

== ENCOUNTER 2019-09-07 11:22 | Inpatient (IN) | payer MEDICARE, OTHER ==
[2019-09-07] MEDS ORDERED: SODIUM CHLORIDE 0.9% 1,000 ML IV ONE (12:24)
--- NOTE | 2019-09-07 12:24 | ED ---
Fall HPI <Osei Bunch - Last Filed: 09/07/19 14:22> - General Source: patient, RN notes reviewed, old records reviewed Mode of arrival: ambulatory <Nan Buck - Last Filed: 09/07/19 14:51> - General Chief Complaint: Fall Stated Complaint: fall/leg pain Time Seen by Provider: 09/07/19 12:07 - History of Present Illness Initial Comments: Patient is a 51-year-old female who presents emergency department today for evaluation for left leg. Knee and ankle pain. Patient reports that she was was having headache and feeling just generally shaky and tired fatigue. Patient reports that over the past 2 months she feels that she's been off balance lot. Patient reports that yesterday she was standing in her kitchen, felt l ightheaded, felt to the ground, hitting her head on the edge of the fridge. She reports that she is on blood thinners for extensive history of blood clots in the past. She is maintained on eliquis. (Nan Buck) - Related Data Home Medications Medication Instructions Recorded Confirmed Gabapentin 800 mg PO TID 12/14/13 01/14/19 Ergocalciferol [Vitamin D2 50,000 unit PO Q14D 08/26/15 01/14/19 (DRISDOL)] Insulin Lispro [humaLOG Kwikpen] See Protocol SQ AC-TID 08/26/15 01/14/19 Insulin Glargine,Hum.rec.anlog 70 unit SQ HS 01/18/17 01/14/19 [Lantus Solostar] Potassium Chloride [K-Tab ER] 10 meq PO BID 03/31/17 01/14/19 Furosemide [Lasix] 20 mg PO Q48H 12/26/17 01/14/19 Nitroglycerin Sl Tabs [Nitrostat] 0.4 mg SUBLINGUAL Q5M PRN 10/21/18 01/14/19 Pantoprazole [Protonix] 40 mg PO AC-BRKFST PRN 12/25/18 01/14/19 Sennosides [Senokot] 17.2 mg PO BID PRN 12/25/18 01/14/19 DULoxetine HCL [Cymbalta] 30 mg PO DAILY 06/12/19 06/12/19 Ketorolac 0.5% Ophth Soln [Acular 1 drops LEFT EYE TID 01/14/19 01/14/19 0.5%] Omeprazole [PriLOSEC] 20 mg PO DAILY 01/14/19 01/14/19 hydrOXYzine HCL 10 mg PO HS PRN 01/14/19 01/14/19 Previous Rx's Medication Instructions Recorded Rosuvastatin [Crestor] 10 mg PO HS #0 10/01/16 metFORMIN HCL 1,000 mg PO BID #0 08/28/18 Apixaban [Eliquis] 5 mg PO BID #60 tab 10/23/18 Allergies Allergy/AdvReac Type Severity Reaction Status Date / Time vancomycin Allergy Rash/Hives/and Verified 01/14/19 19:56 vomiting diarrhea Review of Systems ROS Other: All systems not noted in ROS Statement are negative. <Osei Bunch - Last Filed: 09/07/19 14:22> ROS Other: All systems not noted in ROS Statement are negative. <Nan Buck - Last Filed: 09/07/19 14:51> ROS Statement: Those systems with pertinent positive or pertinent negative responses have been documented in the HPI. Past Medical History Past Medical History: Coronary Artery Disease (CAD), Cancer, Chest Pain / Angina, COPD, CVA/TIA, Diabetes Mellitus, Deep Vein Thrombosis (DVT), GERD/Reflux, Hyperlipidemia, Hypertension, Myocardial Infarction (DE), Osteoarthritis (OA), Pulmonary Embolus (PE) Additional Past Medical History / Comment(s): SKIN CA. 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 C/O pain in stomach. Mutiple DVT,mesentaric thrombosis x2, hx GENITAL WARTS, neuropathy, pad, chronic pain syndrome, ddd lumbar region w/radiculopathy, fell 06/2015 tore rt rotator cuff, pancreatitis, uti, non alcoholic fatty liver, poly neuropathy Last Myocardial Infarction Date:: 2010 History of Any Multi-Drug Resistant Organisms: None Reported Past Surgical History: Section, Cholecystectomy, Heart Catheterization, Heart Catheterization With Stent, Orthopedic Surgery, Tonsillectomy, Tubal Ligation Additional Past Surgical History / Comment(s): 11 Stents in left leg, fistula left thigh, full mouth teeth extraction, TRAPEASE VENA CAVA FILTER, carpel tunne l, heart stents x4 rca and lad, tumor removal from uterus. Genital warts removed, INGRID. Skin cancer removed from neck, rt great toe amputated, colonoscopy cva 2017 no deficits Past Anesthesia/Blood Transfusion Reactions: No Reported Reaction Date of Last Stent Placement:: May 2016 Past Psychological History: Depression, Panic Disorder Smoking Status: Current every day smoker Past Alcohol Use History: None Reported Past Drug Use History: None Reported - Past Family History Mother Family Medical History: Cancer, Congestive Heart Failure (CHF), Diabetes Mellitus, Myocardial Infarction (DE) Additional Family Medical History / Comment(s): Ovarian CA. Mother at age 69. Father Family Medical History: Coronary Artery Disease (CAD), Myocardial Infarction (DE) Additional Family Medical History / Comment(s): Father at age 70. Sister(s) Family Medical History: Myocardial Infarction (DE) Additional Family Medical History / Comment(s): Patient has one sister with myocardial infarction at age 55. Son(s) Family Medical History: Deep Vein Thrombosis (DVT), Pulmonary Embolus Additional Family Medical History / Comment(s): Patient has 2 sons and one has history of DVT and pulmonary embolism. <Nan Buck - Last Filed: 09/07/19 14:51> General Exam Limitations: no limitations General appearance: alert, in no apparent distress Head exam: Present: atraumatic, normocephalic, normal inspection Eye exam: Present: normal appearance, PERRL, EOMI. Absent: scleral icterus, conjunctival injection, periorbital swelling ENT exam: Present: normal exam, mucous membranes moist Neck exam: Present: normal inspection. Absent: tenderness, meningismus, lymphadenopathy Respiratory exam: Present: normal lung sounds bilaterally. Absent: respiratory distress, wheezes, rales, rhonchi, stridor Cardiovascular Exam: Present: regular rate, normal rhythm, normal heart sounds. Absent: systolic murmur, diastolic murmur, rubs, gallop, clicks GI/Abdominal exam: Present: soft, normal bowel sounds. Absent: distended, tenderness, guarding, rebound, rigid Extremities exam: Present: normal inspection, full ROM, normal capillary refill. Absent: tenderness, pedal edema, joint swelling, calf tenderness Back exam: Present: normal inspection Neurological exam: Present: alert, oriented X3, CN II-XII intact Psychiatric exam: Present: normal affect, normal mood Skin exam: Present: warm <Nan Buck - Last Filed: 09/07/19 14:51> - General Exam Comments Initial Comments: 59 year old female, no distress. (HeberNan) Course <Osei Bunch - Last Filed: 09/07/19 14:22> Vital Signs 09/07/19 09/07/19 11:23 13:59 Temperature 98.6 F 97.9 F Pulse Rate 90 75 Respiratory 17 18 Rate Blood Pressure 119/79 135/77 O2 Sat by Pulse 100 97 Oximetry - Reevaluation(s) Reevaluation #1: 09/07/19 14:22 PA supervision: I proceeded [id number] evaluation the patient and her son was present patient is present with complaints of a fall yesterday she states she had a sudden feeling of weakness and fell she does not believe she lost consciousness at all but that she was in the floor for almost 30 minutes before she could work her way up. She still complains of weakness some dizziness she currently is awake alert she complains of knee pain from a fall x-rays are negative for acute findings she does have tenderness over the knees. She will be admitted with consultation by neurology I did discuss the case with Dr. Tejeda. (Julio COsei) Medical Decision Making - Lab Data Result diagrams: 09/07/19 12:22 09/07/19 12:22 <Osei Bunch - Last Filed: 09/07/19 14:22> - Lab Data Result diagrams: 09/07/19 12:22 09/07/19 12:22 - Radiology Data Radiology results: report reviewed <Nan Buck - Last Filed: 09/07/19 14:51> - Medical Decision Making 39-year-old female presents today for concern for few months of dizziness, feeling off balance. She states that last night she fell, hitting her head. She is on eliquis. Patient denies chest pain. Patient's main complaint is left knee and leg pain. She does have some swelling to the left knee. She does have range of motion noted. Pain and tenderness worse on the medial aspect of the knee. Patient had a CT of her brain and C-spine. So abnormal findings with the sudden cortical lesion, recommended concern for thrombosed cortical vein. Also some low-lying cerebral tonsils, and empty sella turcica, concern for possible increased intracranial pressure. Patient labwork was reviewed and within normal. EKG shows no acute changes. Patient does have multiple comorbidities, diabetes peripheral neuropathy, history of multiple blood clots. She is maintained on Kwame. I discussed the case with Dr. Bunch who also examined the Patient. We reviewed all the findings, concern for patient's persistent dizziness and abnormal CT findings we will add admit the Patient to Dr. Dr. Tejeda with consults to neurology. (Nan Buck) - Lab Data Lab Results 09/07/19 09/07/19 09/07/19 Range/Units 12:22 12:22 12:22 WBC 12.1 H (3.8-10.6) k/uL RBC 5.56 H (3.80-5.40) m/uL Hgb 16.4 H (11.4-16.0) gm/dL Hct 50.0 H (34.0-46.0) % MCV 89.9 (80.0-100.0) fL MCH 29.6 (25.0-35.0) pg MCHC 32.9 (31.0-37.0) g/dL RDW 14.0 (11.5-15.5) % Plt Count 224 (150-450) k/uL Neutrophils % 78 % Lymphocytes % 13 % Monocytes % 5 % Eosinophils % 1 % Basophils % 2 % Neutrophils # 9.4 H (1.3-7.7) k/uL Lymphocytes # 1.6 (1.0-4.8) k/uL Monocytes # 0.6 (0-1.0) k/uL Eosinophils # 0.2 (0-0.7) k/uL Basophils # 0.3 H (0-0.2) k/uL PT 9.8 (9.0-12.0) sec INR 0.9 (<1.2) APTT 22.8 (22.0-30.0) sec Sodium 132 L (137-145) mmol/L Potassium 4.1 (3.5-5.1) mmol/L Chloride 94 L (98-107) mmol/L Carbon Dioxide 26 (22-30) mmol/L Anion Gap 12 mmol/L BUN 13 (7-17) mg/dL Creatinine 0.89 (0.52-1.04) mg/dL Est GFR (CKD-EPI)AfAm 83 (>60 ml/min/1.73 sqM) Est GFR (CKD-EPI)NonAf 72 (>60 ml/min/1.73 sqM) Glucose 346 H (74-99) mg/dL Calcium 9.6 (8.4-10.2) mg/dL Total Bilirubin 1.1 (0.2-1.3) mg/dL AST 37 H (14-36) U/L ALT 38 H (4-34) U/L Alkaline Phosphatase 130 H (38-126) U/L Troponin I (0.000-0.034) ng/mL Total Protein 7.3 (6.3-8.2) g/dL Albumin 4.1 (3.5-5.0) g/dL 09/07/19 Range/Units 12:22 WBC (3.8-10.6) k/uL RBC (3.80-5.40) m/uL Hgb (11.4-16.0) gm/dL Hct (34.0-46.0) % MCV (80.0-100.0) fL MCH (25.0-35.0) pg MCHC (31.0-37.0) g/dL RDW (11.5-15.5) % Plt Count (150-450) k/uL Neutrophils % % Lymphocytes % % Monocytes % % Eosinophils % % Basophils % % Neutrophils # (1.3-7.7) k/uL Lymphocytes # (1.0-4.8) k/uL Monocytes # (0-1.0) k/uL Eosinophils # (0-0.7) k/uL Basophils # (0-0.2) k/uL PT (9.0-12.0) sec INR (<1.2) APTT (22.0-30.0) sec Sodium (137-145) mmol/L Potassium (3.5-5.1) mmol/L Chloride (98-107) mmol/L Carbon Dioxide (22-30) mmol/L Anion Gap mmol/L BUN (7-17) mg/dL Creatinine (0.52-1.04) mg/dL Est GFR (CKD-EPI)AfAm (>60 ml/min/1.73 sqM) Est GFR (CKD-EPI)NonAf (>60 ml/min/1.73 sqM) Glucose (74-99) mg/dL Calcium (8.4-10.2) mg/dL Total Bilirubin (0.2-1.3) mg/dL AST (14-36) U/L ALT (4-34) U/L Alkaline Phosphatase (38-126) U/L Troponin I <0.012 (0.000-0.034) ng/mL Total Protein (6.3-8.2) g/dL Albumin (3.5-5.0) g/dL 09/07/19 13:29 EKG shows normal sinus rhythm, mild voltage criteria for LVH may be normal variant. Borderline ECG. Ventricular rate of [address] interval is 146 ms. QRS duration is 88 ms. QT QTc is 362/440 ms. (Nan Buck) - Radiology Data No acute intracranial hemorrhage or mass effect. Left-sided cortical lesion is somewhat dense appearance along the peripheral margin of the superior left pa rietal lobe felt to prior exam. Recommended postcontrast exam thrombosed cortical vein. Cerebellar tonsils are slightly low-lying in position. No tonsillar breaking finding stable from prior exam. There is also partially empty sella to her scalp. These findings occasionally seen with increased intracranial pressure. Correlate with ocular exam to exclude papilledema. Cyst active minimal nonspecific white matter changes most likely a basis of remote vascular ischemia. Chest x-ray is negative for any acute cardiopulmonary process. The x-ray shows no fracture dislocation. Moderate tricompartmental arthrosis. X-ray shows no acute fracture dislocation left ankle. No acute fracture dislocation and pelvis or either hip. (Nan Buck) Disposition <Osei Bunch - Last Filed: 09/07/19 14:22> Is patient prescribed a controlled substance at d/c from ED?: No Time of Disposition: 14:50 <Nan Buck - Last Filed: 09/07/19 14:51> Clinical Impression: Fall, Knee effusion, Balance disorder, Abnormal CT of brain Disposition: ADMITTED IP TO THIS HOSP Condition: Stable Referrals: Ramirez Balderas MD [Primary Care Provider] - 1-2 days
[2019-09-07 12:49] LABS: Basophils # (A) 0.3 k/uL (0-0.2); Basophils % (A) 2 %; Eosinophils # (A) 0.2 k/uL (0-0.7); Eosinophils % (A) 1 %; HGB 16.4 gm/dL (11.4-16.0); Lymphocytes # (A) 1.6 k/uL (1.0-4.8); Lymphocytes % (A) 13 %; MCH 29.6 pg (25.0-35.0); MCHC 32.9 g/dL (31.0-37.0); MCV 89.9 fL (80.0-100.0); Mean Platelet Volume 8.6; Monocytes # (A) 0.6 k/uL (0-1.0); Monocytes % (A) 5 %; Neutrophils # (A) 9.4 k/uL (1.3-7.7); Neutrophils % (A) 78 %; Platelet Count 224 k/uL (150-450); RBC 5.56 m/uL (3.80-5.40); WBC 12.1 k/uL (3.8-10.6)
--- NOTE | 2019-09-07 13:03 | CT ---
EXAMINATION TYPE: CT brain wo con DATE OF EXAM: 09/07/2019 COMPARISON: 12/26/2017 HISTORY: Weakness, dizziness and fatigue for 2-[address] DLP: 1076.4 mGycm Automated exposure control for dose reduction was used. FINDINGS: Ventricular system is compatible with the patient's age group. There may be faint periventricular are as of low attenuation which are nonspecific but likely in the basis of remote microvascular ischemia. Fat attenuation along the anterior interhemispheric fissure is stable may represent lipoma, dermoid. No midline shift or mass effect cerebellar tonsils low-lying at the level the foramen magnum but stab le. Partially empty sella turcica noted. IMPRESSION: 1. No acute intracranial hemorrhage or mass effect. 2. Left sided cortical lesion is somewhat dense appearance along the peripheral margin of the superio r left parietal lobe relative to prior exam. Recommend post contrast exam thrombosed cortical vein. 3. Cerebellar tonsils are slightly low-lying in position at the level the foramen magnum. No tonsilla r beaking. Findings stable from prior exam. There also is a partially empty sella turcica. These find ings can occasionally be seen with increased intracranial pressure. Correlate with ocular exam to exc lude papilledema. 4. Suspect a minimal nonspecific white matter changes. Most likely on the basis of remote microvascul ar ischemia.
[2019-09-07 13:13] LABS: INR 0.9 (<1.2); Partial Thromboplastin Time 22.8 sec (22.0-30.0); Prothrombin Time 9.8 sec (9.0-12.0)
--- NOTE | 2019-09-07 13:14 | XR ---
EXAMINATION TYPE: XR chest 2V DATE OF EXAM: 09/07/2019 COMPARISON: 08/27/2018 HISTORY: Syncopal episode 24 hours ago TECHNIQUE: Frontal and lateral views of the chest are obtained. FINDINGS: There is no focal air space opacity, pleural effusion, or pneumothorax seen. The cardiac silhouette size is within normal limits. The osseous structures are intact. Minimal multilevel dege nerative change of the thoracic spine. Inferior vena cava filter is seen on the lateral view. IMPRESSION: No acute cardiopulmonary process.
[2019-09-07 13:16] LABS: Albumin 4.1 g/dL (3.5-5.0); Calcium 9.6 mg/dL (8.4-10.2); Potassium 4.1 mmol/L (3.5-5.1); Total Bilirubin 1.1 mg/dL (0.2-1.3); Total Protein 7.3 g/dL (6.3-8.2)
--- NOTE | 2019-09-07 13:16 | XR ---
EXAMINATION TYPE: XR knee complete LT DATE OF EXAM: 09/07/2019 CLINICAL HISTORY: Left knee pain after fall approximately 24 hours ago TECHNIQUE: Three views of the left knee are obtained. COMPARISON: 11/17/2016 FINDINGS: There is diffuse osseous demineralization. There is no acute fracture/dislocation evident in left knee. The tri-compartment joint spaces appear aligned with protuberant tricompartmental oste ophytes and patellofemoral compartment joint space narrowing. The overlying soft tissue appears unre markable. Calcifications are seen along the vastus medialis, likely from prior injury. These appear l inear. Few calcifications are also seen within the subcutaneous tissues medial to the proximal tibia, which could be vascular. There is a small suprapatellar joint effusion. IMPRESSION: 1. No acute fracture or dislocation in the left knee. 2. Moderate tricompartmental arthrosis.
--- NOTE | 2019-09-07 13:17 | XR ---
EXAMINATION TYPE: XR ankle complete LT DATE OF EXAM: 09/07/2019 CLINICAL HISTORY: Left ankle pain after fall TECHNIQUE: Frontal, lateral and oblique images of the left ankle are obtained. COMPARISON: None. FINDINGS: There is no acute fracture/dislocation evident in the left ankle. The ankle mortise appea rs within normal limits. The overlying soft tissue appears unremarkable. Subcutaneous calcifications are incidentally noted of the calf. Very small Achilles and plantar heel spurs are seen. IMPRESSION: There is no acute fracture or dislocation in the left ankle.
--- NOTE | 2019-09-07 13:22 | XR ---
EXAMINATION TYPE: XR Hip Bilateral and AP pelvis DATE OF EXAM: 09/07/2019 COMPARISON: NONE HISTORY: Bilateral hip pain after fall TECHNIQUE: A single AP view of the pelvis is obtained. Two views of both hips were obtained. FINDINGS: There is no acute fracture/dislocation evident in the pelvis. The hip and sacroiliac join ts appear symmetric and aligned with mild femoral acetabular arthropathy. Extensive degenerative garcia ge of the lumbosacral junction is seen. The overlying soft tissue appears unremarkable. Aortoiliac s tent graft is present with extent into the left common and external iliac arteries and proximal femor al artery. Two views of both hips show no acute fracture or dislocation. No focal lytic or sclerotic lesion see n in either proximal femur. The overlying soft tissue is unremarkable. IMPRESSION: There is no acute fracture or dislocation in the pelvis or either hip.
[2019-09-07] MEDS ORDERED: HYDROmorphone 1 MG/ML 1 ML SYRINGE IVP STA (13:54)
[2019-09-07] MEDS ORDERED: ONDANSETRON 4 MG/2 ML VIAL IVP PRN (14:52)
[2019-09-07] MEDS ORDERED: KETOROLAC 30 MG/ML 1 ML VIAL IVP PRN (14:52)
[2019-09-07] MEDS ORDERED: NALOXONE 0.4 MG/ML 1 ML VIAL IV PRN (14:52)
[2019-09-07] MEDS ORDERED: SENNOSIDES 8.6 MG TAB PO PRN (17:54)
[2019-09-07] MEDS ORDERED: NITROGLYCERIN SL TABS 0.4 MG TAB SUBLINGUAL PRN (17:54)
[2019-09-07] MEDS: MORPHINE SULFATE 4 MG/ML SYRINGE IV PRN (18:29)
[2019-09-07] MEDS: SODIUM CHLORIDE 0.9% 1,000 ML IV SCH (19:07)
[2019-09-07 20:21] LABS: Glucose,Whole Blood 324 mg/dL (75-99)
[2019-09-07] MEDS: ATORVASTATIN 20 MG TAB PO SCH (20:47)
[2019-09-07] MEDS: GABAPENTIN 400 MG CAP PO SCH (20:47)
[2019-09-07] MEDS: DULoxetine HCL 60 MG CAPSULE.DR PO SCH (20:47)
[2019-09-07] MEDS: INSULIN ASPART (NovoLOG) 100 UNIT/ML VIAL SQ SCH (20:47)
[2019-09-07] MEDS: POTASSIUM CHLORIDE ER 10 MEQ TAB.ER.PRT PO SCH (20:47)
[2019-09-07] MEDS: APIXABAN 5 MG TAB PO SCH (20:47)
[2019-09-08] MEDS: MORPHINE SULFATE 4 MG/ML SYRINGE IV PRN ×4 (00:30→20:22)
[2019-09-08 07:01] LABS: Glucose,Whole Blood 255 mg/dL (75-99)
[2019-09-08] MEDS: INSULIN ASPART (NovoLOG) 100 UNIT/ML VIAL SQ SCH ×4 (07:51→20:21)
[2019-09-08] MEDS: POTASSIUM CHLORIDE ER 10 MEQ TAB.ER.PRT PO SCH ×2 (08:26→20:21)
[2019-09-08] MEDS: DULoxetine HCL 60 MG CAPSULE.DR PO SCH ×2 (08:26→20:21)
[2019-09-08] MEDS: ASPIRIN 81 MG PO SCH (08:26)
[2019-09-08] MEDS: GABAPENTIN 400 MG CAP PO SCH ×3 (08:26→20:21)
[2019-09-08] MEDS: APIXABAN 5 MG TAB PO SCH ×2 (08:26→20:21)
[2019-09-08] MEDS: FUROSEMIDE 20 MG TAB PO SCH (08:26)
[2019-09-08] MEDS ORDERED: PANTOPRAZOLE 40 MG/10 ML VIAL IV SCH (09:00)
--- NOTE | 2019-09-08 11:02 | US ---
EXAMINATION TYPE: US venous doppler duplex LE LT DATE OF EXAM: 09/08/2019 9:35 AM COMPARISON: NONE CLINICAL HISTORY: 59-year-old female edema, trauma. SIDE PERFORMED: Left TECHNIQUE: The lower extremity deep venous system is examined utilizing real time linear array sonog jai with graded compression, doppler sonography and color-flow sonography. FINDINGS: VESSELS IMAGED: External Iliac Vein (EIV) Common Femoral Vein Deep Femoral Vein Greater Saphenous Vein * Femoral Vein Popliteal Vein Small Saphenous Vein * Proximal Calf Veins (* superficial vessels) Left Leg: Negative for DVT IMPRESSION: No evidence for DVT within the left lower extremity imaged from the groin to the upper calf.
[2019-09-08 11:40] LABS: Glucose,Whole Blood 307 mg/dL (75-99)
--- NOTE | 2019-09-08 12:46 | P.HPIM ---
History of Present Illness H&P Date: 09/08/19 Chief Complaint: Left leg pain, lightheaded This is a 59-year-old female patient of Dr. Balderas and Dr. Bill with history of CAD with multiple cardiac stents in mid RCA, mid LAD 2, obtuse marginal branch and followed by Dr. Bill closely, normal stress test in August 2018, peripheral artery disease with previous stenting done as well has amputation of the right great toe secondary to osteomyelitis, CVA with no residual deficits, hypertension, COPD, diabetes mellitus type 2, previous multiple DVT and PE requiring chronic anticoagulation on eliquis, history of GI bleed secondary to antral gastritis, esophagitis. Patient gives history of having headache and feeling shaky and fatigued. She complains of feeling off balance for the past 2 months. On Saturday, patient was in her kitchen felt lightheaded and fell to the ground and hit her head on the edge of the refrigerator. She denies having any chest pain. Patient complains of left knee and leg pain with mild swelling to the left knee. Patient states that she was on the floor for about 30 minutes. She gradually moved herself over to the dining room table chair. Her son brought her into the hospital. Patient complains of throbbing pain to the left knee with decreased range of motion and pain to the back side of the knee. She denies any weakness. She complains of a tingling sensation over her face. She complains of headache on the left side with history of migraine headaches which seem to have resolved. She denies any vision loss. She also relates that about one month ago she went to the door to answer it and she knew she was going to pass out and up on the floor. She states she has had follow-up with Dr. Bill and other routine imaging has been normal. Yesterday, patient presented to [facility] emergency center for evaluation. Vital signs were stable, afebrile, pulse ox 100%. Hemoglobin 16.4, WBC 12.1, creatinine 0.89, sodium 132, potassium 4.1, chloride 94, CO2 26, blood sugar 346. Total bilirubin 1.1, AST 37, ALT 38, alkaline phosphatase 130, INR 0.9, troponin negative. EKG was a normal sinus rhythm. CAT scan of the brain showed no acute intracranial hemorrhage or mass effect. Left-sided cortical lesion is somewhat dense appearance along the peripheral margin of the superior left parietal lobe. Recommend contrast exam. Cerebellar tonsils are slightly low-lying. Findings stable from last exam. Findings can occasionally be seen with increased intracranial pressure. Suspect nonspecific white matter changes. Most likely in the bases of remote microvascular ischemia. X-ray of the bilateral hips and pelvis showed no acute fracture or dislocation. Left knee x- ray showed no acute fracture dislocation. Left ankle x-ray showed no acute f racture or dislocation. Chest x-ray shows no acute cardiopulmonary process. Patient was admitted to the [facility] floor and consult requested with neurology and orthopedics. Review of Systems Constitutional: Reports weakness, Denies chills, Denies fever, Denies poor appetite, Denies weight loss Eyes: denies blurred vision, denies pain Ears, nose, mouth and throat: Denies headache, Denies nasal congestion, Denies nasal discharge, Denies sore throat, Denies vertigo Cardiovascular: Reports lightheadedness, Reports syncope, Denies chest pain, Denies dyspnea on exertion, Denies palpitations, Denies shortness of breath Respiratory: Denies cough, Denies cough with sputum, Denies dyspnea, Denies excessive sputum, Denies hemoptysis, Denies home oxygen, Denies respiratory infections, Denies wheezing Gastrointestinal: Denies abdominal pain, Denies diarrhea, Denies loss of appetite, Denies nausea, Denies vomiting Genitourinary: Denies dysuria, Denies hematuria, Denies urgency, Denies urinary frequency Musculoskeletal: Reports muscle weakness, Denies myalgias Musculoskeletal: left: knee pain, knee stiffness, knee swelling Integumentary: Reports wounds Neurological: Denies numbness, Denies weakness Psychiatric: Denies anxiety, Denies depression Past Medical History Past Medical History: Coronary Artery Disease (CAD), Cancer, Chest Pain / Angina, COPD, CVA/TIA, Diabetes Mellitus, Deep Vein Thrombosis (DVT), GERD/Reflux, Hyperlipidemia, Hypertension, Myocardial Infarction (NH), Osteoarthritis (OA), Pulmonary Embolus (PE) Additional Past Medical History / Comment(s): SKIN CA. 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 C/O pain in stomach. Mutiple DVT,mesentaric thrombosis x2, hx GENITAL WARTS, neuropathy, pad, chronic pain syndrome, ddd lumbar region w/radiculopathy, fell 06/2015 tore rt rotator cuff, pancreatitis, uti, non alcoholic fatty liver, poly neuropathy Last Myocardial Infarction Date:: 2010 History of Any Multi-Drug Resistant Organisms: None Reported Past Surgical History: Section, Cholecystectomy, Heart Catheterization, Heart Catheterization With Stent, Orthopedic Surgery, Tonsillectomy, Tubal Ligation Additional Past Surgical History / Comment(s): 11 Stents in left leg, fistula left thigh, full mouth teeth extraction, TRAPEASE VENA CAVA FILTER, carpel tunnel, heart stents x4 rca and lad, tumor removal from uterus. Genital warts removed, INGRID. Skin cancer removed from neck, rt great toe amputated, colonoscopy cva 2017 no deficits Past Anesthesia/Blood Transfusion Reactions: No Reported Reaction Date of Last Stent Placement:: May 2016 Past Psychological History: Depression, Panic Disorder Additional Psychological History / Comment(s): Depression r/t health issues. Smoking Status: Current every day smoker Past Alcohol Use History: None Reported Additional Past Alcohol Use History / Comment(s): SMOKING 1PPD since 1993.- trying to quit. Past Drug Use History: None Reported - Past Family History Mother Family Medical History: Cancer, Congestive Heart Failure (CHF), Diabetes Mellitus, Myocardial Infarction (NH) Additional Family Medical History / Comment(s): Ovarian CA. Mother at age 69. Father Family Medical History: Coronary Artery Disease (CAD), Myocardial Infarction (NH) Additional Family Medical History / Comment(s): Father at age 70. Sister(s) Family Medical History: Myocardial Infarction (NH) Additional Family Medical History / Comment(s): Patient has one sister with myocardial infarction at age 55. Son(s) Family Medical History: Deep Vein Thrombosis (DVT), Pulmonary Embolus Additional Family Medical History / Comment(s): Patient has 2 sons and one has history of DVT and pulmonary embolism. Medications and Allergies Home Medications Medication Instructions Recorded Confirmed Type Gabapentin 800 mg PO TID 12/14/13 09/07/19 History Ergocalciferol [Vitamin D2 50,000 unit PO Q14D 08/26/15 09/07/19 History (DRISDOL)] Insulin Lispro [humaLOG Kwikpen] See Protocol SQ AC-TID 08/26/15 09/07/19 History Rosuvastatin [Crestor] 10 mg PO HS #0 10/01/16 09/07/19 Rx Insulin Glargine,Hum.rec.anlog 70 unit SQ HS 01/18/17 09/07/19 History [Lantus Solostar] Potassium Chloride [K-Tab ER] 10 meq PO BID 03/31/17 09/07/19 History Furosemide [Lasix] 20 mg PO Q48H 12/26/17 09/07/19 History Nitroglycerin Sl Tabs [Nitrostat] 0.4 mg SUBLINGUAL Q5M PRN 10/21/18 09/07/19 History Apixaban [Eliquis] 5 mg PO BID #60 tab 10/23/18 09/07/19 Rx Sennosides [Senokot] 17.2 mg PO BID PRN 12/25/18 09/07/19 History Aspirin [[place] Aspirin EC] 81 mg PO DAILY 09/07/19 09/07/19 History DULoxetine HCL [Cymbalta] 60 mg PO BID 09/07/19 09/07/19 History Allergies Allergy/AdvReac Type Severity Reaction Status Date / Time vancomycin Allergy Rash/Hives/and Verified 09/07/19 15:08 vomiting diarrhea Physical Exam Vitals: Vital Signs Temp Pulse Pulse Resp BP BP Pulse Ox 09/08/19 07:00 98.2 F 78 16 129/80 95 09/08/19 02:17 97.8 F 76 18 102/68 93 L 09/07/19 19:55 97.7 F 81 17 111/67 93 L 09/07/19 16:57 16 09/07/19 16:28 16 09/07/19 16:15 97.5 F L 75 18 131/87 100 09/07/19 13:59 97.9 F 75 18 135/77 97 09/07/19 11:23 98.6 F 90 17 119/79 100 Intake and Output 09/07/19 09/08/19 09/08/19 22:59 06:59 14:59 Intake Total 236 Balance 236 Intake: Oral 236 Other: Voiding Method Toilet # Voids 1 2 Weight 91.308 kg Gen: This is a 59-year-old female. She is resting in bed and appears to be comfortable and in no acute distress. HEENT: Head is atraumatic, normocephalic. Pupils equal, round. Sclerae is anicteric. NECK: Supple. No JVD. No lymphadenopathy. No thyromegaly. LUNGS: Clear to auscultation. No wheezes or rhonchi. No intercostal retractions. HEART: Regular rate and rhythm. No murmur. ABDOMEN: Soft. Bowel sounds are present. No masses. No abdominal tenderness. EXTREMITIES: No pedal edema. No calf tenderness. Edema fluid to the left knee with ecchymosis. Dorsalis pedis +1 bilaterally. Decreased range of motion to the left knee. NEUROLOGICAL: Patient is awake, alert and oriented x3. Cranial nerves 2 through 12 are grossly intact. Results CBC & Chem 7: 09/07/19 12:22 09/07/19 12:22 Labs: Abnormal Lab Results - Last 24 Hours (Table) 09/07/19 09/07/19 09/07/19 Range/Units 12:22 12:22 20:19 WBC 12.1 H (3.8-10.6) k/uL RBC 5.56 H (3.80-5.40) m/uL Hgb 16.4 H (11.4-16.0) gm/dL Hct 50.0 H (34.0-46.0) % Neutrophils # 9.4 H (1.3-7.7) k/uL Basophils # 0.3 H (0-0.2) k/uL Sodium 132 L (137-145) mmol/L Chloride 94 L (98-107) mmol/L Glucose 346 H (74-99) mg/dL POC Glucose (mg/dL) 324 H (75-99) mg/dL AST 37 H (14-36) U/L ALT 38 H (4-34) U/L Alkaline Phosphatase 130 H (38-126) U/L 09/08/19 Range/Units 07:00 WBC (3.8-10.6) k/uL RBC (3.80-5.40) m/uL Hgb (11.4-16.0) gm/dL Hct (34.0-46.0) % Neutrophils # (1.3-7.7) k/uL Basophils # (0-0.2) k/uL Sodium (137-145) mmol/L Chloride (98-107) mmol/L Glucose (74-99) mg/dL POC Glucose (mg/dL) 255 H (75-99) mg/dL AST (14-36) U/L ALT (4-34) U/L Alkaline Phosphatase (38-126) U/L Thrombosis Risk Factor Assmnt - DVT/VTE Prophylaxis DVT/VTE Prophylaxis: Pharmacologic Prophylaxis ordered - Choose All That Apply Any of the Below Risk Factors Present?: Yes Each Factor Represents 1 point: Age 41-60 years, Obesity (BMI >25) Other Risk Factors: Yes Thrombosis Risk Factor Assessment Total Risk Factor Score: 2 Thrombosis Risk Factor Assessment Level: Low Risk Assessment and Plan Plan: 1. Dizziness, falls and possible syncope, headache. Cardiac monitoring added. CAT scan of the brain revealed a left-sided cortical lesion and recommended con trast study for thrombosed cortical vein. Consult with neurology. 2. Left knee pain with ecchymosis and fluid. X-ray negative for fracture or dislocation. Consult with orthopedics. Brent wrap and ice pack, physical therapy 3. Diabetes mellitus type 2, uncontrolled with hyperglycemia. Hemoglobin A1c. Continue Levemir 70 units at bedtime, NovoLog scale before meals and at bedtime. 4. Coronary artery disease status post multiple PCI with ischemic cardiomyopathy. Continue Lasix 20 mg every 48 hours, aspirin 81 mg daily. 4. Hypertension and hypertensive cardiovascular disease. Continue Lasix. 5. Chronic DVT and PEs. Continue eliquis. 6. Chronic tobacco use and dependence with COPD. smoking cessation. 7. Hyperlipidemia. Continue Crestor 10 mg at bedtime. 8. Diabetic polyneuropathy. Continue gabapentin 800 mg 3 times daily 9. Severe PAD. Continue aspirin, eliquis, Lipitor or statin 10. Recurrent depression. Continue Cymbalta 30 mg daily. 11. GI prophylaxis. Protonix. 12. DVT prophylaxis. Eliquis Patient admitted to the hospital for a minimum of 2 night stay. Discharge plan: Return home. Impression and plan of care have been directed as dictated by the signing physician. Kerri Kevin nurse practitioner acting as scribe for signing physician.
--- NOTE | 2019-09-08 12:51 | P.CNOR ---
History of Present Illness - [facility] Consult date: 09/08/19 Consult reason: joint pain History of present illness: Patient is a 59-year-old female who presented to [facility] yesterday after sustaining a fall at her house. Apparently the patient's been having issues with lightheadedness and fatigue. She states that she was walking in her kitchen when she turned and fell to the ground hitting her head on the refrigerator. Patient states that after the fall she had notable pain involving the left lower extremity. Upon arrival to the hospital, imaging and lab tests were done. Images demonstrated no acute fractures or dislocations involving the left lower extremity. She was admitted under internal medicine for further workup, our orthopedic team and neurology were both consulted. Patient was evaluated at bedside, her son was present. She is resting comfortably. She notes most of the discomfort in her left knee. She denies any right lower extremity discomfort, bilateral upper extremity discomfort. She denies any new onset cervical, thoracic or lumbar pain. Patient is a significant history involving blood clots of both the lower legs, abdomen and lungs. She's had multiple surgeries regarding the history of blood clots. Patient is also an insulin-dependent diabetic with significant diabetic neuropathy, mainly affecting the bilateral feet. She's had a history of a previous right great toe amputation. Patient does currently smoke, she admits to smoking over 20 years. Patient denies any previous orthopedic surgery involving the left lower extremity. Review of Systems Constitutional: Reports as per HPI Past Medical History Past Medical History: Coronary Artery Disease (CAD), Cancer, Chest Pain / Angina, COPD, CVA/TIA, Diabetes Mellitus, Deep Vein Thrombosis (DVT), GERD/Reflux, Hyperlipidemia, Hypertension, Myocardial Infarction (GA), Osteoarthritis (OA), Pulmonary Embolus (PE) Additional Past Medical History / Comment(s): SKIN CA. 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 C/O pain in stomach. Mutiple DVT,mesentaric thrombosis x2, hx GENITAL WARTS, neuropathy, pad, chronic pain syndrome, ddd lumbar region w/radiculopathy, fell 06/2015 tore rt rotator cuff, pancreatitis, uti, non alcoholic fatty liver, poly neuropathy Last Myocardial Infarction Date:: 2010 History of Any Multi-Drug Resistant Organisms: None Reported Past Surgical History: Section, Cholecystectomy, Heart Catheterization, Heart Catheterization With Stent, Orthopedic Surgery, Tonsillectomy, Tubal Ligation Additional Past Surgical History / Comment(s): 11 Stents in left leg, fistula left thigh, full mouth teeth extraction, TRAPEASE VENA CAVA FILTER, carpel tunnel, heart stents x4 rca and lad, tumor removal from uterus. Genital warts removed, INGRID. Skin cancer removed from neck, rt great toe amputated, colonoscopy cva 2017 no deficits Past Anesthesia/Blood Transfusion Reactions: No Reported Reaction Date of Last Stent Placement:: May 2016 Past Psychological History: Depression, Panic Disorder Additional Psychological History / Comment(s): Depression r/t health issues. Smoking Status: Current every day smoker Past Alcohol Use History: None Reported Additional Past Alcohol Use History / Comment(s): SMOKING 1PPD since 1993.- trying to quit. Past Drug Use History: None Reported - Past Family History Mother Family Medical History: Cancer, Congestive Heart Failure (CHF), Diabetes Mellitus, Myocardial Infarction (GA) Additional Family Medical History / Comment(s): Ovarian CA. Mother at age 69. Father Family Medical History: Coronary Artery Disease (CAD), Myocardial Infarction (GA) Additional Family Medical History / Comment(s): Father at age 70. Sister(s) Family Medical History: Myocardial Infarction (GA) Additional Family Medical History / Comment(s): Patient has one sister with myocardial infarction at age 55. Son(s) Family Medical History: Deep Vein Thrombosis (DVT), Pulmonary Embolus Additional Family Medical History / Comment(s): Patient has 2 sons and one has history of DVT and pulmonary embolism. Medications and Allergies Home Medications Medication Instructions Recorded Confirmed Type Gabapentin 800 mg PO TID 12/14/13 09/07/19 History Ergocalciferol [Vitamin D2 50,000 unit PO Q14D 08/26/15 09/07/19 History (DRISDOL)] Insulin Lispro [humaLOG Kwikpen] See Protocol SQ AC-TID 08/26/15 09/07/19 History Rosuvastatin [Crestor] 10 mg PO HS #0 10/01/16 09/07/19 Rx Insulin Glargine,Hum.rec.anlog 70 unit SQ HS 01/18/17 09/07/19 History [Lantus Solostar] Potassium Chloride [K-Tab ER] 10 meq PO BID 03/31/17 09/07/19 History Furosemide [Lasix] 20 mg PO Q48H 12/26/17 09/07/19 History Nitroglycerin Sl Tabs [Nitrostat] 0.4 mg SUBLINGUAL Q5M PRN 10/21/18 09/07/19 History Apixaban [Eliquis] 5 mg PO BID #60 tab 10/23/18 09/07/19 Rx Sennosides [Senokot] 17.2 mg PO BID PRN 12/25/18 09/07/19 History Aspirin [[place]te Aspirin EC] 81 mg PO DAILY 09/07/19 09/07/19 History DULoxetine HCL [Cymbalta] 60 mg PO BID 09/07/19 09/07/19 History Allergies Allergy/AdvReac Type Severity Reaction Status Date / Time vancomycin Allergy Rash/Hives/and Verified 09/07/19 15:08 vomiting diarrhea Physical Examination Left lower extremity: Chronic skin discoloration noted of the left lower extremity, mainly involving the foot and ankle There are no obvious open lesions or sores present Mild effusion present over the left knee, she's tenderness with palpation along the medial and lateral joint line. Range of motion is intact both actively and passively involving the knee Passive motion of the hip reproduces no significant discomfort Plantar flexion, dorsiflexion, EHL, FHL are intact Obvious sensory defects noted on the plantar aspect of the foot Dorsal pedis pulses 2+ Anterior posterior compartments of the left lower extremity are soft, calf is soft, no tenderness with palpation Results - Labs Labs: Abnormal Lab Results - Last 24 Hours (Table) 09/07/19 09/07/19 09/07/19 Range/Units 12:22 12:22 20:19 WBC 12.1 H (3.8-10.6) k/uL RBC 5.56 H (3.80-5.40) m/uL Hgb 16.4 H (11.4-16.0) gm/dL Hct 50.0 H (34.0-46.0) % Neutrophils # 9.4 H (1.3-7.7) k/uL Basophils # 0.3 H (0-0.2) k/uL Sodium 132 L (137-145) mmol/L Chloride 94 L (98-107) mmol/L Glucose 346 H (74-99) mg/dL POC Glucose (mg/dL) 324 H (75-99) mg/dL AST 37 H (14-36) U/L ALT 38 H (4-34) U/L Alkaline Phosphatase 130 H (38-126) U/L 09/08/19 09/08/19 Range/Units 07:00 11:39 WBC (3.8-10.6) k/uL RBC (3.80-5.40) m/uL Hgb (11.4-16.0) gm/dL Hct (34.0-46.0) % Neutrophils # (1.3-7.7) k/uL Basophils # (0-0.2) k/uL Sodium (137-145) mmol/L Chloride (98-107) mmol/L Glucose (74-99) mg/dL POC Glucose (mg/dL) 255 H 307 H (75-99) mg/dL AST (14-36) U/L ALT (4-34) U/L Alkaline Phosphatase (38-126) U/L H & H 09/07/19 Range/Units 12:22 Hgb 16.4 H (11.4-16.0) gm/dL Hct 50.0 H (34.0-46.0) % Coagulation 09/07/19 Range/Units 12:22 INR 0.9 (<1.2) Result Diagrams: 09/07/19 12:22 09/07/19 12:22 - Diagnostic results Hip x-ray: report reviewed, image reviewed Knee x-ray: report reviewed, image reviewed Ankle/Foot x-ray: report reviewed, image reviewed Assessment and Plan Plan: Imaging: Multiple x-rays were reviewed including reports, left ankle, left knee and left hip and pelvis. Images demonstrated no acute fractures or dislocations. Obvious arthritic changes noted of the left knee involving all 3 compartments. Assessment: 1. Left knee pain 2. Mild left knee effusion 3. Left knee tricompartmental osteoarthritis exacerbation 4. Status post fall 5. Multiple medical comorbidities Plan: I was able to discuss the case, including both physical exam findings and imaging studies with my attending Dr. Coffman. No orthopedic surgical int ervention recommended at this time. With regards to the effusion and arthritis, recommend icing and elevating. Recommend weight-bear as tolerated with a walker Recommend PT evaluation Other medical specialty recommendations We'll be available for any further questions regarding this patient Time with Patient: Less than 30
[2019-09-08] MEDS: SODIUM CHLORIDE 0.9% 1,000 ML IV SCH (16:29)
[2019-09-08 16:35] LABS: Glucose,Whole Blood 285 mg/dL (75-99)
[2019-09-08 20:09] LABS: Glucose,Whole Blood 303 mg/dL (75-99)
[2019-09-08 20:18] LABS: Hemoglobin A1C 13.3 % (4.0-6.0)
[2019-09-08] MEDS: ATORVASTATIN 20 MG TAB PO SCH (20:21)
[2019-09-08] MEDS: INSULIN DETEMIR (LEVEMIR) 100 UNIT/ML SYR SQ SCH (20:21)
[2019-09-09] MEDS: MORPHINE SULFATE 4 MG/ML SYRINGE IV PRN ×4 (00:37→22:31)
[2019-09-09 06:58] LABS: Glucose,Whole Blood 116 mg/dL (75-99)
[2019-09-09 07:54] LABS: HCT 43.9 % (34.0-46.0); HGB 14.1 gm/dL (11.4-16.0); MCH 28.9 pg (25.0-35.0); MCHC 32.1 g/dL (31.0-37.0); MCV 90.1 fL (80.0-100.0); Mean Platelet Volume 8.2; Platelet Count 195 k/uL (150-450); RBC 4.88 m/uL (3.80-5.40); WBC 9.1 k/uL (3.8-10.6)
[2019-09-09 08:01] LABS: Albumin 3.5 g/dL (3.5-5.0); Calcium 9.6 mg/dL (8.4-10.2); Potassium 3.9 mmol/L (3.5-5.1); Total Bilirubin 1.1 mg/dL (0.2-1.3); Total Protein 6.6 g/dL (6.3-8.2)
[2019-09-09] MEDS: INSULIN ASPART (NovoLOG) 100 UNIT/ML VIAL SQ SCH ×4 (08:28→21:29)
[2019-09-09] MEDS: ASPIRIN 81 MG PO SCH (08:28)
[2019-09-09] MEDS: PANTOPRAZOLE 40 MG TABLET PO SCH (08:28)
[2019-09-09] MEDS: DULoxetine HCL 60 MG CAPSULE.DR PO SCH ×2 (08:29→21:29)
[2019-09-09] MEDS: APIXABAN 5 MG TAB PO SCH ×2 (08:29→21:29)
[2019-09-09] MEDS: GABAPENTIN 400 MG CAP PO SCH ×3 (08:29→21:29)
[2019-09-09] MEDS: POTASSIUM CHLORIDE ER 10 MEQ TAB.ER.PRT PO SCH ×2 (08:29→21:29)
--- NOTE | 2019-09-09 08:41 | P.CNNES ---
History of Present Illness Consult date: 09/08/19 Reason for Consult: Dizziness, falls, confusion History of Present Illness: HISTORY OF PRESENT ILLNESS: Thank you for allowing me to evaluate Ms. Courtney Ybarra. Ms. Ybarra is a 59 year-old woman with PMhx of CAD, chest pain, COPD, stroke in 2017, skin cancer, DM, DVT/PE/mesenteri thrombosis, GERD, HLD, HTN, SD, osteoarthritis, pancreatitis, non-alcoholic fatty liver, peripheral neuropathy, depression, panic disorder, presented to [facility] for L leg pain. Patient reports that for the last 2 months, she's been feeling off balance and also having some headache and fatigue. Patient was standing in her kitchen, felt lightheaded, fell to the ground and hit her head against the fridge. Patient denies losing consciousness. Patient states that she's been feeling "out of it" for the last 6 months and became very tearful. Patient reporting having some headache, 4-5/10 pain, on the R side of her head that would be associated with vision change in her R eye. Patient having difficulty describing. Patient denies having any stressors. Denies SI or HI. She has been having increased fatigue for the last month. Patient kept getting tearful, saying, "I don't know what's going on." denies any recent sickness, fever, chest pain, SOB, diarrhea, one-sided weakness. Endorses some numbness of her L arm. PAST MEDICAL HISTORY: CAD, chest pain, COPD, stroke in 2017, skin cancer, DM, DVT/PE/mesenteri thrombosis, GERD, HLD, HTN, SD, osteoarthritis, pancreatitis, non-alcoholic fatty liver, peripheral neuropathy, depression, panic disorder PAST SURGICAL HISTORY: , cholecystectomy, heart cath with stent, tonsillectomy, tubal ligation, 11 stents in L leg, IVC filter, carpel tunnel surgery, tumor removal from uterus HOME MEDICATIONS: gabapentin, vitamin D, insulin, rosuvastatin, KCl, lasix, apixaban, sennosides, ASA, duloxetine ALLERGIES: Vancomycin SOCIAL HISTORY: Current everyday smoker FAMILY HISTORY: Mother with ovarian cancer, CHF, DM, SD. Father with CAD, SD. Sister with SD. Son with DVT/PE REVIEW OF SYSTEMS: The 14 systems are reviewed and no additional points are identified compared to the review of systems documented history and physical PHYSICAL EXAMINATION: VITAL SIGNS: T 98.2 HR 78 RR 16 BP 129/80 O2 sat 95% on RA GEN.: NAD, pleasant and cooperative but tearful at times HEENT: NCAT, sclera without icterus NECK: Supple SKIN AND EXTREMITIES: Warm to touch, no edema NEURO: MENTAL STATUS: Patient alert and oriented to self, place, time. Able to name the current president. Speech fluent, able to name and repeat, following all commands readily. No right and left disorientation, neglect. CRANIAL NERVES II THROUGH XII: II: Pupils are equal and reactive to light symmetrically. No afferent pupillary defect. Visual sebastian are intact. III, IV, : No ptosis. Extraocular movements full. No nystagmus. V: Facial sensation "numbness-like" from L V1-3. VII. No clear facial asymmetry. VIII: Hearing intact to finger rub bilaterally. IX, X: Symmetric palate elevation. XI: Shoulder shrug intact. XII: Tongue midline without fasciculation or atrophy. MOTOR: Normal bulk/tone. No pronator drift or tremor. Strength is 5/5 in RUE/RLE/LLE. 4+/5 in LUE. SENSORY: Decreased to light touch and numbness in LUE. Otherwise, intact in all 3 extremities. Romberg is positive REFLEXES: 2+ throughout. Toes are downgoing. COORDINATION: Finger to nose intact. No dysmetria. GAIT: Narrow-based and stable. Able to toe/heel/tandem walk DIAGNOSTIC TESTING: LABORATORY: WBC 12.1 HGb 16.4 Platelet 224 Na 132 K 4.1 Cl 94 CO2 26 BUN 13 Cr 0.89 glucose 346 AST 37 ALT 38 Alkphos 130 Troponin <0.012 IMAGING: CT Head w/o contrast 09/07/2019: No acute intraranial hemorrhage or mass effect L-sided cortical lesion is somewhat dense apperance along the peripheral margin of the superior L parietal lobe relative to prior exam. Recommend post contrast exam thrombosed cortical vein Cerebellar tonsils are slightly low-lying in position at the level of the foramen magnum. There also is a partially empty sella turcica, which can be seen with increased intracranial pressure Minimal nonspecific white matter changes. ASSESSMENT: 59 year-old woman with PMhx of CAD, chest pain, COPD, stroke in 2017, skin cancer, DM, DVT/PE/mesenteri thrombosis, GERD, HLD, HTN, SD, osteoarthritis, pancreatitis, non-alcoholic fatty liver, peripheral neuropathy, depression, panic disorder, presented to [facility] L leg pain. Exam remarkable for L facial and LUE numbness and mild LUE weakness. Patient very tearful throughout the evaluation. Patient with multiple risk factors for stroke. Will obtain MRI brain w/o contrast, and if positive, will pursue further stroke work- up and management. Patient has been on anticoagulation since 1994 for DVT/PE RECOMMENDATIONS: 1. MRI brain w/o contrast 2. Continue with Eliquis 3. Consider psychiatry consult 4. Neurology will continue to follow. Past Medical History Past Medical History: Coronary Artery Disease (CAD), Cancer, Chest Pain / Angina, COPD, CVA/TIA, Diabetes Mellitus, Deep Vein Thrombosis (DVT), GERD/Reflux, Hyperlipidemia, Hypertension, Myocardial Infarction (SD), Osteoarthritis (OA), Pulmonary Embolus (PE) Additional Past Medical History / Comment(s): SKIN CA. 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 C/O pain in stomach. Mutiple DVT,mesentaric thrombosis x2, hx GENITAL WARTS, neuropathy, pad, chronic pain syndrome, ddd lumbar region w/radiculopathy, fell 06/2015 tore rt rotator cuff, pancreatitis, uti, non alcoholic fatty liver, poly neuropathy Last Myocardial Infarction Date:: 2010 History of Any Multi-Drug Resistant Organisms: None Reported Past Surgical History: Section, Cholecystectomy, Heart Catheterization, Heart Catheterization With Stent, Orthopedic Surgery, Tonsillectomy, Tubal Ligation Additional Past Surgical History / Comment(s): 11 Stents in left leg, fistula left thigh, full mouth teeth extraction, TRAPEASE VENA CAVA FILTER, carpel tunnel, heart stents x4 rca and lad, tumor removal from uterus. Genital warts removed, INGRID. Skin cancer removed from neck, rt great toe amputated, colonoscopy cva 2017 no deficits Past Anesthesia/Blood Transfusion Reactions: No Reported Reaction Date of Last Stent Placement:: May 2016 Past Psychological History: Depression, Panic Disorder Additional Psychological History / Comment(s): Depression r/t health issues. Smoking Status: Current every day smoker Past Alcohol Use History: None Reported Additional Past Alcohol Use History / Comment(s): SMOKING 1PPD since 1993.- trying to quit. Past Drug Use History: None Reported - Past Family History Mother Family Medical History: Cancer, Congestive Heart Failure (CHF), Diabetes Mellitus, Myocardial Infarction (SD) Additional Family Medical History / Comment(s): Ovarian CA. Mother at age 69. Father Family Medical History: Coronary Artery Disease (CAD), Myocardial Infarction (SD) Additional Family Medical History / Comment(s): Father at age 70. Sister(s) Family Medical History: Myocardial Infarction (SD) Additional Family Medical History / Comment(s): Patient has one sister with myocardial infarction at age 55. Son(s) Family Medical History: Deep Vein Thrombosis (DVT), Pulmonary Embolus Additional Family Medical History / Comment(s): Patient has 2 sons and one has history of DVT and pulmonary embolism. Medications and Allergies Home Medications Medication Instructions Recorded Confirmed Type Gabapentin 800 mg PO TID 12/14/13 09/07/19 History Ergocalciferol [Vitamin D2 50,000 unit PO Q14D 08/26/15 09/07/19 History (MELANIE)] Insulin Lispro [humaLOG Kwikpen] See Protocol SQ AC-TID 08/26/15 09/07/19 History Rosuvastatin [Crestor] 10 mg PO HS #0 10/01/16 09/07/19 Rx Insulin Glargine,Hum.rec.anlog 70 unit SQ HS 01/18/17 09/07/19 History [Lantus Solostar] Potassium Chloride [K-Tab ER] 10 meq PO BID 03/31/17 09/07/19 History Furosemide [Lasix] 20 mg PO Q48H 12/26/17 09/07/19 History Nitroglycerin Sl Tabs [Nitrostat] 0.4 mg SUBLINGUAL Q5M PRN 10/21/18 09/07/19 History Apixaban [Eliquis] 5 mg PO BID #60 tab 10/23/18 09/07/19 Rx Sennosides [Senokot] 17.2 mg PO BID PRN 12/25/18 09/07/19 History Aspirin [Pax Aspirin EC] 81 mg PO DAILY 09/07/19 09/07/19 History DULoxetine HCL [Cymbalta] 60 mg PO BID 09/07/19 09/07/19 History Allergies Allergy/AdvReac Type Severity Reaction Status Date / Time vancomycin Allergy Rash/Hives/and Verified 09/07/19 15:08 vomiting diarrhea Physical Examination - Vital Signs Vital Signs: Vital Signs Temp Pulse Pulse Resp BP BP Pulse Ox 09/08/19 07:00 98.2 F 78 16 129/80 95 09/08/19 02:17 97.8 F 76 18 102/68 93 L 09/07/19 19:55 97.7 F 81 17 111/67 93 L 09/07/19 16:57 16 09/07/19 16:28 16 09/07/19 16:15 97.5 F L 75 18 131/87 100 09/07/19 13:59 97.9 F 75 18 135/77 97 Intake and Output 09/07/19 09/08/19 09/08/19 22:59 06:59 14:59 Intake Total 236 Balance 236 Intake: Oral 236 Other: Voiding Method Toilet # Voids 1 2 Weight 91.308 kg Results - Laboratory Findings CBC and BMP: 09/09/19 06:59 09/09/19 06:59 Abnormal Lab Findings: Abnormal Labs 09/07/19 09/07/19 09/07/19 12:22 12:22 20:19 WBC 12.1 H RBC 5.56 H Hgb 16.4 H Hct 50.0 H Neutrophils # 9.4 H Basophils # 0.3 H Sodium 132 L Chloride 94 L Glucose 346 H POC Glucose (mg/dL) 324 H AST 37 H ALT 38 H Alkaline Phosphatase 130 H 09/08/19 09/08/19 07:00 11:39 WBC RBC Hgb Hct Neutrophils # Basophils # Sodium Chloride Glucose POC Glucose (mg/dL) 255 H 307 H AST ALT Alkaline Phosphatase
[2019-09-09 11:49] LABS: Glucose,Whole Blood 300 mg/dL (75-99)
[2019-09-09 14:07] LABS: Glucose,Whole Blood 278 mg/dL (75-99)
[2019-09-09 14:47] VITALS: BMI 31.5
[2019-09-09 16:48] LABS: Glucose,Whole Blood 284 mg/dL (75-99)
[2019-09-09] MEDS: SODIUM CHLORIDE 0.9% 1,000 ML IV SCH (17:07)
[2019-09-09 20:39] LABS: Glucose,Whole Blood 299 mg/dL (75-99)
[2019-09-09] MEDS: ATORVASTATIN 20 MG TAB PO SCH (21:29)
[2019-09-09] MEDS: INSULIN DETEMIR (LEVEMIR) 100 UNIT/ML SYR SQ SCH (21:30)
[2019-09-10 01:16] VITALS: RESP 16
[2019-09-10 06:49] LABS: Glucose,Whole Blood 277 mg/dL (75-99)
[2019-09-10] MEDS: PANTOPRAZOLE 40 MG TABLET PO SCH (07:31)
[2019-09-10] MEDS: FUROSEMIDE 20 MG TAB PO SCH (07:31)
[2019-09-10] MEDS: POTASSIUM CHLORIDE ER 10 MEQ TAB.ER.PRT PO SCH (07:31)
[2019-09-10] MEDS: APIXABAN 5 MG TAB PO SCH (07:31)
[2019-09-10] MEDS: GABAPENTIN 400 MG CAP PO SCH (07:31)
[2019-09-10] MEDS: DULoxetine HCL 60 MG CAPSULE.DR PO SCH (07:31)
[2019-09-10] MEDS: INSULIN ASPART (NovoLOG) 100 UNIT/ML VIAL SQ SCH ×2 (07:31→12:00)
[2019-09-10] MEDS: ASPIRIN 81 MG PO SCH (07:31)
[2019-09-10 09:38] VITALS: BP 131/82; PULSE 72; TEMP 97.5
[2019-09-10 11:35] LABS: Glucose,Whole Blood 331 mg/dL (75-99)
--- NOTE | 2019-09-10 14:22 | P.PN ---
Subjective Progress Note Date: 09/09/19 This is a 59-year-old female patient of Dr. Balderas and Dr. Bill with history of CAD with multiple cardiac stents in mid RCA, mid LAD 2, obtuse marginal branch and followed by Dr. Bill closely, normal stress test in August 2018, peripheral artery disease with previous stenting done as well has a mputation of the right great toe secondary to osteomyelitis, CVA with no residual deficits, hypertension, COPD, diabetes mellitus type 2, previous multiple DVT and PE requiring chronic anticoagulation on eliquis, history of GI bleed secondary to antral gastritis, esophagitis. Patient gives history of having headache and feeling shaky and fatigued. She complains of feeling off balance for the past 2 months. On Saturday, patient was in her kitchen felt lightheaded and fell to the ground and hit her head on the edge of the refrigerator. She denies having any chest pain. Patient complains of left knee and leg pain with mild swelling to the left knee. Patient states that she was on the floor for about 30 minutes. She gradually moved herself over to the dining room table chair. Her son brought her into the hospital. Patient complains of throbbing pain to the left knee with decreased range of motion and pain to the back side of the knee. She denies any weakness. She complains of a tingling sensation over her face. She complains of headache on the left side with history of migraine headaches which seem to have resolved. She denies any vision loss. She also relates that about one month ago she went to the door to answer it and she knew she was going to pass out and up on the floor. She states she has had follow-up with Dr. Bill and other routine imaging has been normal. Yesterday, patient presented to [facility] emergency center for evaluation. Vital signs were stable, afebrile, pulse ox 100%. Hemoglobin 16.4, WBC 12.1, creatinine 0.89, sodium 132, potassium 4.1, chloride 94, CO2 26, blood sugar 346. Total bilirubin 1.1, AST 37, ALT 38, alkaline phosphatase 130, INR 0.9, troponin negative. EKG was a normal sinus rhythm. CAT scan of the brain s howed no acute intracranial hemorrhage or mass effect. Left-sided cortical lesion is somewhat dense appearance along the peripheral margin of the superior left parietal lobe. Recommend contrast exam. Cerebellar tonsils are slightly low-lying. Findings stable from last exam. Findings can occasionally be seen with increased intracranial pressure. Suspect nonspecific white matter changes. Most likely in the bases of remote microvascular ischemia. X-ray of the bilateral hips and pelvis showed no acute fracture or dislocation. Left knee x- ray showed no acute fracture dislocation. Left ankle x-ray showed no acute fracture or dislocation. Chest x-ray shows no acute cardiopulmonary process. Patient was admitted to the [facility] floor and consult requested with neurology and orthopedics. 09/09: Ultrasound of the left lower extremity was negative for DVT. Orthopedics has evaluated with plans for ice and elevation. Patient has been seen by Dr. Rascon with recommendations for brain MRI but patient states she is unable to undergo MRI are facility. Arrangements will be made to have this done as an outpatient. Recommendations to continue eliquis and a psych referral per Dr. Rascon. Patient complains of feeling tired and she didn't sleep well last night. Patient had an episode of left eye blurriness but no neurological deficits were noted. CBC within normal limits, blood sugar between 116 and 303, AST 65, ALT 61. Patient has been afebrile, heart rate 74, blood pressure 131/84, pulse ox 98% on room air. Patient was prepared for discharge home in the afternoon but then developed episode of feeling fatigued, dizzy was afraid she may pass out when she goes home. Patient's discharge was held and she will be monitored overnight. Review of Systems Constitutional: Reports weakness, Denies chills, Denies fever, Denies poor appetite, Denies weight loss Eyes: denies blurred vision, denies pain Ears, nose, mouth and throat: Denies headache, Denies nasal congestion, Denies nasal discharge, Denies sore throat, reports vertigo Cardiovascular: Reports lightheadedness, Reports syncope, Denies chest pain, Denies dyspnea on exertion, Denies palpitations, Denies shortness of breath Respiratory: Denies cough, Denies cough with sputum, Denies dyspnea, Denies excessive sputum, Denies hemoptysis, Denies home oxygen, Denies respiratory infections, Denies wheezing Gastrointestinal: Denies abdominal pain, Denies diarrhea, Denies loss of appetite, Denies nausea, Denies vomiting Genitourinary: Denies dysuria, Denies hematuria, Denies urgency, Denies urinary frequency Musculoskeletal: Reports muscle weakness, Denies myalgias Musculoskeletal: left: knee pain, knee stiffness, knee swelling Integumentary: Reports wounds Neurological: Denies numbness, Denies weakness Psychiatric: Denies anxiety, Denies depression Objective - Vital Signs Vital signs: Vital Signs Temp 98 F 09/09/19 07:00 Pulse 74 09/09/19 07:00 Resp 16 09/09/19 07:00 BP 131/84 09/09/19 07:00 Pulse Ox 98 09/09/19 07:00 Intake & Output 09/08/19 09/09/19 09/09/19 18:59 06:59 18:59 Intake Total 948 296 Balance 948 296 Intake: Intake, IV Titration 120 Amount Sodium Chloride 0.9% 1, 120 000 ml @ 20 mls/hr IV . Q24H [facility] Rx#:[id number] Oral 828 296 Other: Voiding Method Toilet # Voids 2 2 - Exam Gen: This is a 59-year-old female. She is resting in bed. HEENT: Head is atraumatic, normocephalic. Pupils equal, round. Sclerae is anicteric. NECK: Supple. No JVD. No lymphadenopathy. No thyromegaly. LUNGS: Clear to auscultation. No wheezes or rhonchi. No intercostal retractions. HEART: Regular rate and rhythm. No murmur. ABDOMEN: Soft. Bowel sounds are present. No masses. No abdominal tenderness. EXTREMITIES: No pedal edema. No calf tenderness. Edema fluid to the left knee with ecchymosis. Dorsalis pedis +1 bilaterally. Decreased range of motion to the left knee. NEUROLOGICAL: Patient is awake, alert and oriented x3. Cranial nerves 2 through 12 are grossly intact. - Labs CBC & Chem 7: 09/09/19 06:59 09/09/19 06:59 Labs: Abnormal Lab Results - Last 24 Hours (Table) 09/07/19 09/08/19 09/08/19 Range/Units 12:22 11:39 16:34 Carbon Dioxide (22-30) mmol/L Glucose (74-99) mg/dL POC Glucose (mg/dL) 307 H 285 H (75-99) mg/dL Hemoglobin A1c 13.3 H (4.0-6.0) % AST (14-36) U/L ALT (4-34) U/L 09/08/19 09/09/19 09/09/19 Range/Units 20:06 06:57 06:59 Carbon Dioxide 34 H (22-30) mmol/L Glucose 118 H (74-99) mg/dL POC Glucose (mg/dL) 303 H 116 H (75-99) mg/dL Hemoglobin A1c (4.0-6.0) % AST 65 H (14-36) U/L ALT 61 H (4-34) U/L Assessment and Plan Plan: 1. Dizziness, falls and possible syncope, headache. Cardiac monitoring added. CAT scan of the brain revealed a left-sided cortical lesion and recommended contrast study for thrombosed cortical vein. Consult with neurology appreciated. 2. Left knee pain with ecchymosis and fluid. X-ray negative for fracture or dislocation. Consult with orthopedics appreciated. Brent wrap and ice pack, physical therapy 3. Diabetes mellitus type 2, uncontrolled with hyperglycemia. Hemoglobin A1c. Continue Levemir 70 units at bedtime, NovoLog scale before meals and at bedtime. 4. Coronary artery disease status post multiple PCI with ischemic cardiomyopathy. Continue Lasix 20 mg every 48 hours, aspirin 81 mg daily. 4. Hypertension and hypertensive cardiovascular disease. Continue Lasix. 5. Chronic DVT and PEs. Continue eliquis. 6. Chronic tobacco use and dependence with COPD. smoking cessation. 7. Hyperlipidemia. Continue Crestor 10 mg at bedtime. 8. Diabetic polyneuropathy. Continue gabapentin 800 mg 3 times daily 9. Severe PAD. Continue aspirin, eliquis, Lipitor or statin 10. Recurrent depression. Continue Cymbalta 30 mg daily. 11. GI prophylaxis. Protonix. 12. DVT prophylaxis. Eliquis Discharge plan: Return home . Impression and plan of care have been directed as dictated by the signing physician. Kerri Kevin nurse practitioner acting as scribe for signing physician.
--- NOTE | 2019-09-10 14:26 | P.DS ---
Providers Date of admission: 09/07/19 14:37 Expected date of discharge: 09/10/19 Attending physician: Tramaine Tejeda Consults: 09/07/19 14:52 Consult Physician Stat Consulting Provider: Alva Rascon Consult Reason/Comments: dizziness, falls, confusion Do you want consulting provider notified?: Yes 09/08/19 09:46 Consult Physician Routine Consulting Provider: Saúl Matt Consult Reason/Comments: left knee trauma Do you want consulting provider notified?: Yes Primary care physician: [facility] Course: This is a 59-year-old female patient of Dr. Balderas and Dr. Bill with history of CAD with multiple cardiac stents in mid RCA, mid LAD 2, obtuse marginal branch and followed by Dr. Bill closely, normal stress test in August 2018, peripheral artery disease with previous stenting done as well has amputation of the right great toe secondary to osteomyelitis, CVA with no residual deficits, hypertension, COPD, diabetes mellitus type 2, previous multiple DVT and PE requiring chronic anticoagulation on eliquis, history of GI bleed secondary to antral gastritis, esophagitis. Patient gives history of having headache and feeling shaky and fatigued. She complains of feeling off balance for the past 2 months. On Saturday, patient was in her kitchen felt lightheaded and fell to the ground and hit her head on the edge of the refrigerator. She denies having any chest pain. Patient complains of left knee and leg pain with mild swelling to the left knee. Patient states that she was on the floor for about 30 minutes. She gradually moved herself over to the dining room table chair. Her son brought her into the hospital. Patient complains of throbbing pain to the left knee with decreased range of motion and pain to the back side of the knee. She denies any weakness. She complains of a tingling sensation over her face. She complains of headache on the left side with history of migraine headaches which seem to have resolved. She denies any vision loss. She also relates that about one month ago she went to the door to answer it and she knew she was going to pass out and up on the floor. She states she has had follow-up with Dr. Bill and other routine imaging has been normal. Yesterday, patient presented to [facility] emergency center for evaluation. Vital signs were stable, afebrile, pulse ox 100%. Hemoglobin 16.4, WBC 12.1, creatinine 0.89, sodium 132, potassium 4.1, chloride 94, CO2 26, blood sugar 346. Total bilirubin 1.1, AST 37, ALT 38, alkaline phosphatase 130, INR 0.9, troponin negative. EKG was a normal sinus rhythm. CAT scan of the brain showed no acute intracranial hemorrhage or mass effect. Left-sided cortical lesion is somewhat dense appearance along the peripheral margin of the superior left parietal lobe. Recommend contrast exam. Cerebellar tonsils are slightly low-lying. Findings stable from last exam. Findings can occasionally be seen with increased intracranial pressure. Suspect nonspecific white matter changes. Most likely in the bases of remote microvascular ischemia. X-ray of the bilateral hips and pelvis showed no acute fracture or dislocation. Left knee x- ray showed no acute fracture dislocation. Left ankle x-ray showed no acute fracture or dislocation. Chest x-ray shows no acute cardiopulmonary process. Patient was admitted to the [facility] floor and consult requested with neurology and orthopedics. 09/09: Ultrasound of the left lower extremity was negative for DVT. Orthopedics has evaluated with plans for ice and elevation. Patient has been seen by Dr. Rascon with recommendations for brain MRI but patient states she is unable to undergo MRI are facility. Arrangements will be made to have this done as an outpatient. Recommendations to continue eliquis and a psych referral per Dr. Rascon. Patient complains of feeling tired and she didn't sleep well last night. Patient had an episode of left eye blurriness but no neurological deficits were noted. CBC within normal limits, blood sugar between 116 and 303, AST 65, ALT 61. Patient has been afebrile, heart rate 74, blood pressure 131/84, pulse ox 98% on room air. Patient was prepared for discharge home in the afternoon but then developed episode of feeling fatigued, dizzy was afraid she may pass out when she goes home. Patient's discharge was held and she will be monitored overnight. 09/10: The patient's been afebrile, heart rate 72, blood pressure 131/82, pulse ox 96% on room air. The patient will be provided order for MRI of the brain to be done as an outpatient. Patient will be discharged home today in stable condition. Discharge diagnoses: 1. Dizziness, falls and possible syncope, headache, left facial and upper extremity numbness of unclear etiology. 2. Left knee pain with ecchymosis and fluid. 3. Diabetes mellitus type 2, uncontrolled with hyperglycemia. 4. Coronary artery disease status post multiple PCI with ischemic cardiomyopathy. 4. Hypertension and hypertensive cardiovascular disease. 5. Chronic DVT and PEs. 6. Chronic tobacco use and dependence with COPD. 7. Hyperlipidemia. 8. Diabetic polyneuropathy. 9. Severe PAD. 10. Recurrent depression. Discharge plan: Return home Impression and plan of care have been directed as dictated by the signing physician. Kerri Kevin nurse practitioner acting as scribe for signing physician. Patient Condition at Discharge: Good Plan - Discharge Summary Discharge Rx Participant: Yes New Discharge Prescriptions: Continue Gabapentin 800 mg PO TID Ergocalciferol [Vitamin D2 (DRISDOL)] 50,000 unit PO Q14D Insulin Lispro [humaLOG Kwikpen] See Protocol SQ AC-TID Rosuvastatin [Crestor] 10 mg PO HS #0 Insulin Glargine,Hum.rec.anlog [Lantus Solostar] 70 unit SQ HS Potassium Chloride [K-Tab ER] 10 meq PO BID Furosemide [Lasix] 20 mg PO Q48H Nitroglycerin Sl Tabs [Nitrostat] 0.4 mg SUBLINGUAL Q5M PRN PRN Reason: Chest Pain Apixaban [Eliquis] 5 mg PO BID #60 tab Sennosides [Senokot] 17.2 mg PO BID PRN PRN Reason: Constipation Aspirin [[place] Aspirin EC] 81 mg PO DAILY DULoxetine HCL [Cymbalta] 60 mg PO BID Discharge Medication List Gabapentin 800 mg PO TID 12/14/13 [History] Ergocalciferol [Vitamin D2 (DRISDOL)] 50,000 unit PO Q14D 08/26/15 [History] Insulin Lispro [humaLOG Kwikpen] See Protocol SQ AC-TID 08/26/15 [History] Rosuvastatin [Crestor] 10 mg PO HS #0 10/01/16 [Rx] Insulin Glargine,Hum.rec.anlog [Lantus Solostar] 70 unit SQ HS 01/18/17 [History] Potassium Chloride [K-Tab ER] 10 meq PO BID 03/31/17 [History] Furosemide [Lasix] 20 mg PO Q48H 12/26/17 [History] Nitroglycerin Sl Tabs [Nitrostat] 0.4 mg SUBLINGUAL Q5M PRN 10/21/18 [History] Apixaban [Eliquis] 5 mg PO BID #60 tab 10/23/18 [Rx] Sennosides [Senokot] 17.2 mg PO BID PRN 12/25/18 [History] Aspirin [[place] Aspirin EC] 81 mg PO DAILY 09/07/19 [History] DULoxetine HCL [Cymbalta] 60 mg PO BID 09/07/19 [History] Follow up Appointment(s)/Referral(s): Mckenzie Ballard MD [STAFF PHYSICIAN] - 3 Weeks (patient to make appointment) Ramirez Balderas MD [Primary Care Provider] - 1 Week (office will call with appointment time) Turner Coffman MD [STAFF PHYSICIAN] - As Needed Discharge Disposition: HOME SELF-CARE
[2019-09-20] MEDS ORDERED: ERGOCALCIFEROL 50,000 UNIT CAP PO SCH (09:00)
== END 2019-09-10 12:50 | disposition home or self-care (01) | DRG 312 ==
LOC: EC 11:22 → 4SSUR 14:37 → OBSVTOIN 09-10 08:08
PROVIDERS: ADMIT Internal Medicine; ATTEND Internal Medicine
DX: R55 Syncope and collapse (principal); F33.9 Major depressive disorder, recurrent, unspecified; K76.0 Fatty (change of) liver, not elsewhere classified; I11.9 Hypertensive heart disease without heart failure; E11.42 Type 2 diabetes mellitus with diabetic polyneuropathy; E11.51 Type 2 diabetes mellitus with diabetic peripheral angiopathy without gangrene; M25.572 Pain in left ankle and joints of left foot; J44.9 Chronic obstructive pulmonary disease, unspecified; I25.10 Atherosclerotic heart disease of native coronary artery without angina pectoris; E78.5 Hyperlipidemia, unspecified; E11.65 Type 2 diabetes mellitus with hyperglycemia; M19.90 Unspecified osteoarthritis, unspecified site; K21.9 Gastro-esophageal reflux disease without esophagitis; G89.4 Chronic pain syndrome; M17.12 Unilateral primary osteoarthritis, left knee; G43.909 Migraine, unspecified, not intractable, without status migrainosus; E66.9 Obesity, unspecified; I25.5 Ischemic cardiomyopathy; M51.16 Intervertebral disc disorders with radiculopathy, lumbar region; F41.0 Panic disorder [episodic paroxysmal anxiety]; F17.210 Nicotine dependence, cigarettes, uncomplicated; M25.462 Effusion, left knee; R20.0 Anesthesia of skin; G93.2 Benign intracranial hypertension; H53.8 Other visual disturbances; W18.30XA Fall on same level, unspecified, initial encounter; Y92.010 Kitchen of single-family (private) house as the place of occurrence of the external cause; I25.2 Old myocardial infarction; Z68.31 Body mass index [BMI] 31.0-31.9, adult; Z71.6 Tobacco abuse counseling; Z71.3 Dietary counseling and surveillance; Z89.411 Acquired absence of right great toe; Z79.82 Long term (current) use of aspirin; Z79.01 Long term (current) use of anticoagulants; Z79.899 Other long term (current) drug therapy; Z79.4 Long term (current) use of insulin; Z85.828 Personal history of other malignant neoplasm of skin; Z87.440 Personal history of urinary (tract) infections; Z90.49 Acquired absence of other specified parts of digestive tract; Z95.5 Presence of coronary angioplasty implant and graft; Z98.890 Other specified postprocedural states; Z98.51 Tubal ligation status; Z95.828 Presence of other vascular implants and grafts; Z91.81 History of falling; Z86.718 Personal history of other venous thrombosis and embolism; Z87.19 Personal history of other diseases of the digestive system; Z86.73 Personal history of transient ischemic attack (TIA), and cerebral infarction without residual deficits; Z86.711 Personal history of pulmonary embolism; Z88.1 Allergy status to other antibiotic agents; Z82.49 Family history of ischemic heart disease and other diseases of the circulatory system; Z83.3 Family history of diabetes mellitus; Z80.41 Family history of malignant neoplasm of ovary; Z83.2 Family history of diseases of the blood and blood-forming organs and certain disorders involving the immune mechanism
CPT/HCPCS: 36415; 70450; 71046; 73521; 80053; 83036; 84484; 85025; 85027; 85610; 85730; 93005; 96361; 96374; 99285

== ENCOUNTER 2019-09-28 19:21 | Emergency (ER) | payer MEDICARE, OTHER ==
[2019-09-28] MEDS ORDERED: ASPIRIN 81 MG PO STA (19:46)
[2019-09-28] MEDS ORDERED: ONDANSETRON 4 MG/2 ML VIAL IVP STA (19:49)
--- NOTE | 2019-09-28 19:49 | ED ---
Chest Pain HPI - General Chief Complaint: Chest Pain Stated Complaint: Weakness,Chest Pain Time Seen by Provider: 09/28/19 19:36 Source: patient, family Mode of arrival: wheelchair Limitations: no limitations - History of Present Illness Initial Comments: Patient is a 59-year-old female with complex medical history presenting to emergency Department with a chief complaint of chest pain and weakness. States about 3 days ago she developed some pain in the right side of the neck to travel to the right shoulder and the midsternal region. States it feels like a burning sensation on the right side of the chest. Does report increased dyspnea on exertion during this time. States she has been feeling weak after she has been discharged home about 18 days ago from the hospital. States she is also having some epigastric abdominal pain along with diarrhea for the last several months. States since yesterday she is also developed nausea with multiple episodes of nonbilious, nonbloody vomiting. Denies any dizziness or headaches. Denies any back pain. Denies taking medications alleviate his symptoms. - Related Data Home Medications Medication Instructions Recorded Confirmed Gabapentin 800 mg PO TID 12/14/13 09/07/19 Ergocalciferol [Vitamin D2 50,000 unit PO Q14D 08/26/15 09/07/19 (DRISDOL)] Insulin Lispro [humaLOG Kwikpen] See Protocol SQ AC-TID 08/26/15 09/07/19 Insulin Glargine,Hum.rec.anlog 70 unit SQ HS 01/18/17 09/07/19 [Lantus Solostar] Potassium Chloride [K-Tab ER] 10 meq PO BID 03/31/17 09/07/19 Furosemide [Lasix] 20 mg PO Q48H 12/26/17 09/07/19 Nitroglycerin Sl Tabs [Nitrostat] 0.4 mg SUBLINGUAL Q5M PRN 10/21/18 09/07/19 Sennosides [Senokot] 17.2 mg PO BID PRN 12/25/18 09/07/19 Aspirin [[place] Aspirin EC] 81 mg PO DAILY 09/07/19 09/07/19 DULoxetine HCL [Cymbalta] 60 mg PO BID 09/07/19 09/07/19 Previous Rx's Medication Instructions Recorded Rosuvastatin [Crestor] 10 mg PO HS #0 10/01/16 Apixaban [Eliquis] 5 mg PO BID #60 tab 10/23/18 Allergies Allergy/AdvReac Type Severity Reaction Status Date / Time vancomycin Allergy Rash/Hives/and Verified 09/28/19 19:33 vomiting diarrhea Review of Systems ROS Statement: Those systems with pertinent positive or pertinent negative responses have been documented in the HPI. ROS Other: All systems not noted in ROS Statement are negative. EKG Findings - EKG Comments: EKG Findings:: No ST changes or T-wave inversions. Ventricular rate 85, AR 164, QRS 92, QTc 452. Past Medical History Past Medical History: Coronary Artery Disease (CAD), Cancer, Chest Pain / Angina, COPD, CVA/TIA, Diabetes Mellitus, Deep Vein Thrombosis (DVT), GERD/Reflux, Hyperlipidemia, Hypertension, Myocardial Infarction ([place]), Osteoarthritis (OA), Pulmonary Embolus (PE) Additional Past Medical History / Comment(s): SKIN CA. 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 C/O pain in stomach. Mutiple DVT,mesentaric thrombosis x2, hx GENITAL WARTS, neuropathy, pad, chronic pain syndrome, ddd lumbar region w/radiculopathy, fell 06/2015 tore rt rotator cuff, pancreatitis, uti, non alcoholic fatty liver, poly neuropathy Last Myocardial Infarction Date:: 2010 History of Any Multi-Drug Resistant Organisms: None Reported Past Surgical History: Section, Cholecystectomy, Heart Catheterization, Heart Catheterization With Stent, Orthopedic Surgery, Tonsillectomy, Tubal Ligation Additional Past Surgical History / Comment(s): 11 Stents in left leg, fistula left thigh, full mouth teeth extraction, TRAPEASE VENA CAVA FILTER, carpel tunnel, heart stents x4 rca and lad, tumor removal from uterus. Genital warts removed, INGRID. Skin cancer removed from neck, rt great toe amputated, colonoscopy cva 2017 no deficits Past Anesthesia/Blood Transfusion Reactions: No Reported Reaction Date of Last Stent Placement:: May 2016 Past Psychological History: Depression, Panic Disorder Smoking Status: Current every day smoker Past Alcohol Use History: None Reported Past Drug Use History: None Reported - Past Family History Mother Family Medical History: Cancer, Congestive Heart Failure (CHF), Diabetes Mellitus, Myocardial Infarction ([place]) Additional Family Medical History / Comment(s): Ovarian CA. Mother at age 69. Father Family Medical History: Coronary Artery Disease (CAD), Myocardial Infarction ([place]) Additional Family Medical History / Comment(s): Father at age 70. Sister(s) Family Medical History: Myocardial Infarction ([place]) Additional Family Medical History / Comment(s): Patient has one sister with myocardial infarction at age 55. Son(s) Family Medical History: Deep Vein Thrombosis (DVT), Pulmonary Embolus Additional Family Medical History / Comment(s): Patient has 2 sons and one has history of DVT and pulmonary embolism. General Exam Limitations: no limitations General appearance: alert, in no apparent distress, obese Head exam: Present: atraumatic, normocephalic, normal inspection Eye exam: Present: normal appearance Pupils: Present: normal accommodation ENT exam: Present: normal exam, normal oropharynx, mucous membranes dry Neck exam: Present: normal inspection, full ROM Respiratory exam: Present: normal lung sounds bilaterally. Absent: respiratory distress, wheezes, rales Cardiovascular Exam: Present: regular rate, normal rhythm, normal heart sounds GI/Abdominal exam: Present: soft, tenderness (Epigastric abdominal tenderness). Absent: distended, guarding, rebound, rigid Extremities exam: Present: normal inspection, full ROM Back exam: Present: normal inspection, full ROM Neurological exam: Present: alert, oriented X3 Psychiatric exam: Present: normal affect, normal mood Skin exam: Present: warm, dry, intact, normal color Course Vital Signs 09/28/19 09/28/19 19:30 22:50 Temperature 98.8 F Pulse Rate 99 72 Respiratory 20 18 Rate Blood Pressure 107/78 136/84 O2 Sat by Pulse 100 96 Oximetry Chest Pain MDM - Differential Diagnosis Chest Wall Syndrome - [facility] Patient is a 51-year-old female with complex medical history presenting to emergency Department with a chief complaint of chest pain. Atypical chest pain over the last 2 days with atypical features. On exam the pain is reproducible in the right side of chest along with the neck and right shoulder. Chest x-ray is unremarkable. I suspect this is musculoskeletal pain. EKG shows normal sinus rhythm and no ST changes or T-wave inversions. She is also complaining of abdominal pain over the last 6 months. Seems to have postprandial abdominal pain. Does not have a gallbladder. Did have a few episodes of vomiting and diarrhea. Patient was given antiemetics and fluids in the ED. Patient did have elevated leukocytosis. She was given 6 units of regular insulin. CBC does show elevated white blood cells and hypochloremia which I suspect is secondary to the vomiting. Denies troponins are negative. Repeat troponins are also negative. Patient was given aspirin, IV fluids to alleviate some of the fluid loss. Patient was also given antiemetics. Patient does take [place] at home and did request one here. On reevaluation patient reports improvement in symptoms and is ready go home. Return parameters were thoroughly discussed with patient was understanding and agreeable. Case discussed with physician. Disposition Clinical Impression: Atypical chest pain, Abdominal pain, Nausea & vomiting, Hyperglycemia Disposition: HOME SELF-CARE Condition: Stable Instructions (If sedation given, give patient instructions): Abdominal Pain (ED) Additional Instructions: Follow-up with primary care. Return to emergency department if symptoms worsen. Is patient prescribed a controlled substance at d/c from ED?: No Referrals: Tramaine Tejeda MD [Primary Care Provider] - 1-2 days Time of Disposition: 00:01
--- NOTE | 2019-09-28 20:07 | XR ---
EXAMINATION TYPE: XR chest 2V DATE OF EXAM: 09/28/2019 COMPARISON: September 07, 2019 HISTORY: Syncope TECHNIQUE: FINDINGS: Heart and mediastinum are normal. Lungs are clear. Diaphragm is normal. Bony thorax appears normal. IMPRESSION: Normal chest. No change.
[2019-09-28 20:31] LABS: Basophils % (A) 0 %; Eosinophils # (A) 0.5 k/uL (0-0.7); Eosinophils % (A) 4 %; HCT 50.8 % (34.0-46.0); HGB 16.8 gm/dL (11.4-16.0); Lymphocytes % (A) 15 %; MCH 29.2 pg (25.0-35.0); MCHC 33.1 g/dL (31.0-37.0); MCV 88.2 fL (80.0-100.0); Mean Platelet Volume 8.3; Monocytes # (A) 0.5 k/uL (0-1.0); Monocytes % (A) 4 %; Neutrophils # (A) 10.5 k/uL (1.3-7.7); Neutrophils % (A) 77 %; Platelet Count 234 k/uL (150-450); RBC 5.75 m/uL (3.80-5.40); RDW 13.9 % (11.5-15.5); WBC 13.7 k/uL (3.8-10.6)
[2019-09-28 20:35] LABS: Albumin 4.5 g/dL (3.5-5.0); Calcium 10.1 mg/dL (8.4-10.2); Magnesium 1.6 mg/dL (1.6-2.3); Potassium 3.5 mmol/L (3.5-5.1); Total Bilirubin 1.3 mg/dL (0.2-1.3); Total Protein 7.9 g/dL (6.3-8.2)
[2019-09-28 20:36] LABS: INR 1.1 (<1.2); Partial Thromboplastin Time 22.4 sec (22.0-30.0); Prothrombin Time 10.9 sec (9.0-12.0)
[2019-09-28 20:41] LABS: Appearance,Urine Cloudy (Clear); Bacteria,Urine Many /hpf; Bilirubin,Urine Negative (Negative); Blood,Urine Negative (Negative); Color,Urine Yellow; Glucose,Urine (UA) 4+ (Negative); Hyaline Casts,Urine 3 /lpf (0-2); Ketones,Urine Negative (Negative); Leukocyte Esterase,Urine Negative (Negative); Mucus,Urine Occasional /hpf; Nitrite,Urine Negative (Negative); PH, Urine 5.5 (5.0-8.0); Protein,Urine Trace (Negative); RBC,Urine 2 /hpf (0-5); Specific Gravity,Urine 1.019 (1.001-1.035); Squamous Epithelial Cell,Urine 8 /hpf (0-4); WBC,Urine 5 /hpf (0-5)
[2019-09-28] MEDS ORDERED: HYDROcodone/APAP 10-325MG 1 EACH TAB PO ONE (21:16)
[2019-09-28] MEDS ORDERED: SODIUM CHLORIDE 0.9% 1,000 ML IV STA (21:16)
[2019-09-28] MEDS ORDERED: INSULIN REGULAR 100 UNIT/ML VIAL IV ONE (22:16)
[2019-09-29 00:14] LABS: Glucose,Whole Blood 254 mg/dL (75-99)
[2019-09-29 00:39] VITALS: BP 142/86; PULSE 75; RESP 17; TEMP 98.4
== END 2019-09-29 00:39 | disposition home or self-care (01) ==
LOC: EC 19:21
DX: E11.65 Type 2 diabetes mellitus with hyperglycemia (principal); R07.89 Other chest pain; M54.2 Cervicalgia; D72.829 Elevated white blood cell count, unspecified; E87.8 Other disorders of electrolyte and fluid balance, not elsewhere classified; E86.9 Volume depletion, unspecified; M25.511 Pain in right shoulder; R10.9 Unspecified abdominal pain; R19.7 Diarrhea, unspecified; I25.119 Atherosclerotic heart disease of native coronary artery with unspecified angina pectoris; I10 Essential (primary) hypertension; I25.2 Old myocardial infarction; M19.90 Unspecified osteoarthritis, unspecified site; G62.9 Polyneuropathy, unspecified; F32.9 Major depressive disorder, single episode, unspecified; F41.0 Panic disorder [episodic paroxysmal anxiety]; F17.200 Nicotine dependence, unspecified, uncomplicated; Z88.1 Allergy status to other antibiotic agents; Z79.4 Long term (current) use of insulin; Z79.82 Long term (current) use of aspirin; Z79.899 Other long term (current) drug therapy; Z86.73 Personal history of transient ischemic attack (TIA), and cerebral infarction without residual deficits; Z85.828 Personal history of other malignant neoplasm of skin; Z95.5 Presence of coronary angioplasty implant and graft; Z90.49 Acquired absence of other specified parts of digestive tract; Z98.890 Other specified postprocedural states; Z82.49 Family history of ischemic heart disease and other diseases of the circulatory system; Z83.3 Family history of diabetes mellitus
CPT/HCPCS: 36415 ×2; 93005; 80053; 82150; 83690; 83735; 84484; 85025; 85610; 85730; 81001; 71046; 99285; 96374; 96361 ×2; J2405

== ENCOUNTER 2019-10-15 06:41 | Day surgery (SDC) | payer MEDICARE, OTHER ==
[2019-10-13 14:03] VITALS: BMI 29.7
[~2019-10-15 06:41] MED LIST changes: +LIDOCAINE 1% (10MG/ML) FOR IV START INTRADERMA PRN
[2019-10-15 07:21] VITALS: TEMP 97.8
[2019-10-15 07:25] LABS: Glucose,Whole Blood 201 mg/dL (75-99)
[2019-10-15] MEDS ORDERED: PROPOFOL 10 MG/ML 20 ML VIAL IV ONE (07:48)
[2019-10-15] MEDS ORDERED: LIDOCAINE 1% INJ 10MG/ML (20 ML MDV) ONE (07:48)
--- NOTE | 2019-10-15 07:53 | P.GSHP ---
History of Present Illness H&P Date: 10/15/19 Chief Complaint: GERD, constipation This is a 51-year-old female segment of GERD. Patient is today for EGD and colonoscopy. Past Medical History Past Medical History: Coronary Artery Disease (CAD), Cancer, Chest Pain / Angina, COPD, CVA/TIA, Diabetes Mellitus, Deep Vein Thrombosis (DVT), GERD/Reflux, Hyperlipidemia, Hypertension, Myocardial Infarction ([place]), Osteoarthritis (OA), Pulmonary Embolus (PE) Additional Past Medical History / Comment(s): SKIN CA. 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 Last Myocardial Infarction Date:: 2010 History of Any Multi-Drug Resistant Organisms: None Reported Past Surgical History: Section, Cholecystectomy, Heart Catheterization, Heart Catheterization With Stent, Orthopedic Surgery, Tonsillectomy, Tubal Ligation Additional Past Surgical History / Comment(s): 11 Stents in left leg, fistula left thigh, full mouth teeth extraction, TRAPEASE VENA CAVA FILTER, carpel tunnel, heart stents x4 rca and lad, tumor removal from uterus. Genital warts removed, INGRID. Skin cancer removed from neck, rt great toe amputated, colonoscopy Past Anesthesia/Blood Transfusion Reactions: No Reported Reaction, Motion Sickness Date of Last Stent Placement:: May 2016 Past Psychological History: Anxiety, Depression Additional Psychological History / Comment(s): Depression r/t health issues. Smoking Status: Current every day smoker Past Alcohol Use History: None Reported Additional Past Alcohol Use History / Comment(s): SMOKING 1PPD since 1993. Past Drug Use History: None Reported - Past Family History Mother Family Medical History: Cancer, Congestive Heart Failure (CHF), Diabetes Mellitus, Myocardial Infarction ([place]) Additional Family Medical History / Comment(s): UTERINE CANCER Father Family Medical History: Coronary Artery Disease (CAD), Myocardial Infarction ([place]) Additional Family Medical History / Comment(s): Father at age 70. Sister(s) Family Medical History: Myocardial Infarction ([place]) Additional Family Medical History / Comment(s): Patient has one sister with myocardial infarction at age 55. Son(s) Family Medical History: Deep Vein Thrombosis (DVT), Pulmonary Embolus Additional Family Medical History / Comment(s): Patient has 2 sons and one has history of DVT and pulmonary embolism. Medications and Allergies Home Medications Medication Instructions Recorded Confirmed Type Gabapentin 800 mg PO TID 12/14/13 10/13/19 History Ergocalciferol [Vitamin D2 50,000 unit PO Q14D 08/26/15 10/13/19 History (DRISDOL)] Insulin Lispro [humaLOG Kwikpen] See Protocol SQ AC-TID PRN 08/26/15 10/13/19 H istory Rosuvastatin [Crestor] 10 mg PO HS #0 10/01/16 10/13/19 Rx Insulin Glargine,Hum.rec.anlog 50 unit SQ PC-LUNCH 01/18/17 10/13/19 History [Lantus Solostar] Potassium Chloride [K-Tab ER] 10 meq PO BID 03/31/17 10/13/19 History Furosemide [Lasix] 20 mg PO Q48H 12/26/17 10/13/19 History Nitroglycerin Sl Tabs [Nitrostat] 0.4 mg SUBLINGUAL Q5M PRN 10/21/18 10/13/19 History Apixaban [Eliquis] 5 mg PO BID #60 tab 10/23/18 10/13/19 Rx Aspirin [[place] Aspirin EC] 81 mg PO DAILY 09/07/19 10/13/19 History DULoxetine HCL [Cymbalta] 60 mg PO BID 09/07/19 10/13/19 History HYDROcodone/APAP 10-325MG [[place] 1 tab PO Q8HR PRN 10/13/19 10/13/19 History 10-325] Inhaler (Unknown Name) 1 puff INHALATION DIRECTED PRN 10/13/19 History Omeprazole (Unknown Dose) 1 tab PO DAILY PRN 10/13/19 History Semaglutide [Ozempic] 0.5 mg SQ WEEKLY 10/13/19 10/13/19 History Updraft Tx (Unknown Namer) 1 dose INHALATION DIRECTED PRN 10/13/19 History Varenicline [Chantix Starter Pack] 0.5 mg PO DIRECTED 10/13/19 10/13/19 History Zoloft (Unknown Dose) 1 tab PO DIRECTED PRN 10/13/19 History Allergies Allergy/AdvReac Type Severity Reaction Status Date / Time vancomycin Allergy Rash/Hives/and Verified 10/13/19 13:45 vomiting diarrhea Surgical - Exam Vital Signs Temp Pulse Resp BP Pulse Ox 97.8 F 92 16 124/81 97 10/15/19 07:15 10/15/19 07:15 10/15/19 07:15 10/15/19 07:15 10/15/19 07:15 - General well developed, well nourished, no distress - Eyes PERRL - ENT normal pinna - Neck no masses - Respiratory normal expansion - Cardiovascular Rhythm: regular - Abdomen Abdomen: soft, non tender Results - Labs Abnormal Lab Results - Last 24 Hours (Table) 10/15/19 Range/Units 07:16 POC Glucose (mg/dL) 201 H (75-99) mg/dL Assessment and Plan Assessment: GERD, gas patient. We'll perform EGD and colonoscopy.
--- NOTE | 2019-10-15 08:14 | P.OP ---
Date of Procedure: 10/15/19 Preoperative Diagnosis: GERD Constipation Postoperative Diagnosis: Antral gastritis Gastric ulcer near distal body of stomach Small hiatal hernia Esophagitis External hemorrhoids Transverse colon polyp Procedure(s) Performed: EGD Colonoscopy Anesthesia: MAC Surgeon: Ricki Ortega Pathology: other (Gastric ulcer, esophagitis, antral ulcer, transverse colon polyp) Condition: stable Disposition: PACU Description of Procedure: The patient's placed on the endoscopy table in the lateral position. She received IV sedation. The gastroscope placed oropharynx passed in the esophagus and stomach. Scope was placed through the pylorus. The first and second portion duodenum appeared normal. Scope was then brought back the antrum this. Mildly inflamed. A biopsies performed. Scope was withdrawn and in the distal portion of the stomach there was a gastric ulcer seen this is biopsied. Scope was unretroflexed and remainder stomach appeared normal. There was a small hiatal hernia. The GE junction was at 38 cm. The distal esophagus appeared minimally inflamed a biopsies performed. The proximal esophagus appeared normal. Scope was withdrawn from the patient.
[2019-10-15 08:19] VITALS: PULSE 88
[2019-10-15 08:35] VITALS: BP 123/70; RESP 14
[2019-10-15 08:47] LABS: Glucose,Whole Blood 211 mg/dL (75-99)
== END 2019-10-15 09:19 | disposition home or self-care (01) ==
LOC: ORWHC2ENDO 06:41
PROVIDERS: ATTEND Surgery
DX: K21.0 Gastro-esophageal reflux disease with esophagitis (principal); K29.50 Unspecified chronic gastritis without bleeding; K25.9 Gastric ulcer, unspecified as acute or chronic, without hemorrhage or perforation; K59.00 Constipation, unspecified; K44.9 Diaphragmatic hernia without obstruction or gangrene; K64.4 Residual hemorrhoidal skin tags; D12.3 Benign neoplasm of transverse colon; I25.10 Atherosclerotic heart disease of native coronary artery without angina pectoris; J44.9 Chronic obstructive pulmonary disease, unspecified; E11.42 Type 2 diabetes mellitus with diabetic polyneuropathy; E78.5 Hyperlipidemia, unspecified; I10 Essential (primary) hypertension; I25.2 Old myocardial infarction; M19.90 Unspecified osteoarthritis, unspecified site; I69.352 Hemiplegia and hemiparesis following cerebral infarction affecting left dominant side; I73.9 Peripheral vascular disease, unspecified; G89.4 Chronic pain syndrome; M51.16 Intervertebral disc disorders with radiculopathy, lumbar region; K76.0 Fatty (change of) liver, not elsewhere classified; K08.109 Complete loss of teeth, unspecified cause, unspecified class; F41.9 Anxiety disorder, unspecified; F32.9 Major depressive disorder, single episode, unspecified; F17.210 Nicotine dependence, cigarettes, uncomplicated; Z85.828 Personal history of other malignant neoplasm of skin; Z86.718 Personal history of other venous thrombosis and embolism; Z86.711 Personal history of pulmonary embolism; Z87.42 Personal history of other diseases of the female genital tract; Z87.828 Personal history of other (healed) physical injury and trauma; Z87.19 Personal history of other diseases of the digestive system; Z91.81 History of falling; Z98.890 Other specified postprocedural states; Z90.49 Acquired absence of other specified parts of digestive tract; Z95.5 Presence of coronary angioplasty implant and graft; Z90.89 Acquired absence of other organs; Z98.51 Tubal ligation status; Z95.820 Peripheral vascular angioplasty status with implants and grafts; Z95.828 Presence of other vascular implants and grafts; Z89.411 Acquired absence of right great toe; Z87.898 Personal history of other specified conditions; Z79.899 Other long term (current) drug therapy; Z79.4 Long term (current) use of insulin; Z79.01 Long term (current) use of anticoagulants; Z79.82 Long term (current) use of aspirin; Z79.891 Long term (current) use of opiate analgesic; Z88.1 Allergy status to other antibiotic agents; Z80.49 Family history of malignant neoplasm of other genital organs; Z82.49 Family history of ischemic heart disease and other diseases of the circulatory system; Z83.3 Family history of diabetes mellitus
CPT/HCPCS: 88305; 45380; 43239; J2001; J2704

== ENCOUNTER 2020-01-14 07:49 | Day surgery (SDC) | payer MEDICARE, OTHER ==
[~2020-01-14 07:49] MED LIST changes: -LIDOCAINE 1% (10MG/ML) FOR IV START INTRADERMA PRN
[2020-01-14] MEDS ORDERED: LIDOCAINE 1% (10MG/ML) FOR IV START INTRADERMA ONE (08:16)
[2020-01-14 08:21] LABS: Glucose,Whole Blood 383 mg/dL (75-99)
[2020-01-14] MEDS ORDERED: INSULIN ASPART (NovoLOG) 100 UNIT/ML VIAL SQ ONE ×2 (08:25→08:58)
[2020-01-14 08:29] VITALS: RESP 16; TEMP 97.5
[2020-01-14] MEDS ORDERED: LIDOCAINE 1% INJ 10MG/ML (20 ML MDV) ONE (08:30)
[2020-01-14] MEDS ORDERED: PROPOFOL 10 MG/ML 20 ML VIAL IV ONE (08:30)
--- NOTE | 2020-01-14 08:36 | P.GSHP ---
History of Present Illness H&P Date: 01/14/20 Chief Complaint: History of peptic ulcer disease This a 51-year-old female who has a known history of peptic ulcer disease. Patient rents today for EGD. Past Medical History Past Medical History: Coronary Artery Disease (CAD), Cancer, Chest Pain / Angina, COPD, CVA/TIA, Diabetes Mellitus, Deep Vein Thrombosis (DVT), GERD/Reflux, Hyperlipidemia, Hypertension, Myocardial Infarction ([place]), Osteoarthritis (OA), Pulmonary Embolus (PE) Additional Past Medical History / Comment(s): SKIN CA. 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, NEUROPATHY LEGS & FEET, USING WALKER, .Mutiple DVT,mesentaric thrombosis x2 & PE, PAD, chronic pain syndrome, ddd lumbar region w/radiculopathy, HISTORY OF FALL 01/07/20 , tore rt rotator cuff, pancreatitis, fatty liver., Last Myocardial Infarction Date:: 2010 History of Any Multi-Drug Resistant Organisms: None Reported Past Surgical History: Section, Cholecystectomy, Heart Catheterization, Heart Catheterization With Stent, Orthopedic Surgery, Tonsillectomy, Tubal Ligation Additional Past Surgical History / Comment(s): 11 Stents in left leg, fistula left thigh, full mouth teeth extraction, TRAPEASE VENA CAVA FILTER, carpel tunnel, heart stents x4 rca and lad, tumor removal from uterus. Genital warts removed, INGRID. Skin cancer removed from neck, rt great toe amputated, colonoscopy Past Anesthesia/Blood Transfusion Reactions: No Reported Reaction, Motion Sickness Date of Last Stent Placement:: May 2016 Smoking Status: Current every day smoker - Past Family History Mother Family Medical History: Cancer, Congestive Heart Failure (CHF), Diabetes Mellitus, Myocardial Infarction ([place]) Additional Family Medical History / Comment(s): UTERINE CANCER Father Family Medical History: Coronary Artery Disease (CAD), Myocardial Infarction ([place]) Additional Family Medical History / Comment(s): Father at age 70. Sister(s) Family Medical History: Myocardial Infarction ([place]) Additional Family Medical History / Comment(s): Patient has one sister with myocardial infarction at age 55. Son(s) Family Medical History: Deep Vein Thrombosis (DVT), Pulmonary Embolus Additional Family Medical History / Comment(s): Patient has 2 sons and one has history of DVT and pulmonary embolism. Medications and Allergies Home Medications Medication Instructions Recorded Confirmed Type Gabapentin 800 mg PO TID 12/14/13 01/14/20 History Ergocalciferol [Vitamin D2 50,000 unit PO Q14D 08/26/15 01/14/20 History (DRISDOL)] Insulin Lispro [humaLOG Kwikpen] See Protocol SQ AC-TID PRN 08/26/15 01/14/20 Hi story Rosuvastatin [Crestor] 10 mg PO HS #0 10/01/16 01/14/20 Rx Insulin Glargine,Hum.rec.anlog 50 unit SQ 1800 01/18/17 01/14/20 History [Lantus Solostar] Potassium Chloride [K-Tab ER] 10 meq PO BID 03/31/17 01/14/20 History Furosemide [Lasix] 20 mg PO Q48H 12/26/17 01/14/20 History Nitroglycerin Sl Tabs [Nitrostat] 0.4 mg SUBLINGUAL Q5M PRN 10/21/18 01/14/20 History Apixaban [Eliquis] 5 mg PO BID #60 tab 10/23/18 01/14/20 Rx Aspirin [[place] Aspirin EC] 81 mg PO DAILY 09/07/19 01/14/20 History DULoxetine HCL [Cymbalta] 60 mg PO BID 09/07/19 01/14/20 History HYDROcodone/APAP 10-325MG [[place] 1 tab PO Q8HR PRN 10/13/19 01/14/20 History 10-325] Inhaler (Unknown Name) 1 puff INHALATION DIRECTED PRN 10/13/19 01/14/20 History Semaglutide [Ozempic] 0.5 mg SQ SA 10/13/19 01/14/20 History Updraft Tx (Unknown Namer) 1 dose INHALATION DIRECTED PRN 10/13/19 01/14/20 History Zoloft (Unknown Dose) 1 tab PO DAILY PRN 10/13/19 01/14/20 History Omeprazole [PriLOSEC] 40 mg PO DAILY #90 cap 10/15/19 01/14/20 Rx Allergies Allergy/AdvReac Type Severity Reaction Status Date / Time vancomycin Allergy Rash/Hives/and Verified 01/14/20 08:02 vomiting diarrhea Surgical - Exam Vital Signs Temp Pulse Resp BP Pulse Ox 97.5 F L 91 16 144/81 99 06/11/20 08:17 01/14/20 08:17 01/14/20 08:17 01/14/20 08:17 01/14/20 08:17 - General well developed, well nourished, no distress - Eyes PERRL - ENT normal pinna - Neck no masses - Respiratory normal expansion - Cardiovascular Rhythm: regular - Abdomen Abdomen: soft, non tender Results - Labs Abnormal Lab Results - Last 24 Hours (Table) 01/14/20 Range/Units 08:14 POC Glucose (mg/dL) 383 H (75-99) mg/dL Assessment and Plan Assessment: Peptic ulcer disease. We'll perform EGD.
--- NOTE | 2020-01-14 08:41 | P.OP ---
Date of Procedure: 01/14/20 Preoperative Diagnosis: Peptic ulcer disease Postoperative Diagnosis: Antral gastritis Procedure(s) Performed: EGD Anesthesia: MAC Surgeon: Ricki Ortega Pathology: other (Antrum) Condition: stable Disposition: PACU Description of Procedure: The patient's placed on the endoscopy table in the lateral position. She received IV sedation. The gastric was placed oropharynx and passed in the esophagus and into the stomach. Scope was then placed through the pylorus. The first and second portion of the duodenum appeared normal. Scope was then brought back the antrum this. Mildly inflamed. A biopsies performed. There is no evidence of any recurrent antral ulceration. The scope was unretroflexed and remainder of the stomach appeared normal. The GE junction was at 40 cm the distal esophagus appeared normal. The proximal esophagus appeared normal. Scope withdrawn for patient.
[2020-01-14 08:54] LABS: Glucose,Whole Blood 405 mg/dL (75-99)
[2020-01-14 09:00] VITALS: BP 105/70; PULSE 74
[2020-01-14 09:16] LABS: Glucose,Whole Blood 390 mg/dL (75-99)
== END 2020-01-14 09:38 | disposition home or self-care (01) ==
LOC: ORWHC2ENDO 07:49
PROVIDERS: ATTEND Surgery
DX: K29.50 Unspecified chronic gastritis without bleeding (principal); Z87.11 Personal history of peptic ulcer disease; I25.10 Atherosclerotic heart disease of native coronary artery without angina pectoris; J44.9 Chronic obstructive pulmonary disease, unspecified; K21.9 Gastro-esophageal reflux disease without esophagitis; E78.5 Hyperlipidemia, unspecified; I10 Essential (primary) hypertension; I25.2 Old myocardial infarction; M19.90 Unspecified osteoarthritis, unspecified site; I69.354 Hemiplegia and hemiparesis following cerebral infarction affecting left non-dominant side; E11.42 Type 2 diabetes mellitus with diabetic polyneuropathy; I73.9 Peripheral vascular disease, unspecified; G89.4 Chronic pain syndrome; M51.16 Intervertebral disc disorders with radiculopathy, lumbar region; K76.0 Fatty (change of) liver, not elsewhere classified; F17.200 Nicotine dependence, unspecified, uncomplicated; Z85.828 Personal history of other malignant neoplasm of skin; Z86.718 Personal history of other venous thrombosis and embolism; Z86.711 Personal history of pulmonary embolism; Z91.81 History of falling; Z87.39 Personal history of other diseases of the musculoskeletal system and connective tissue; Z87.19 Personal history of other diseases of the digestive system; Z98.890 Other specified postprocedural states; Z90.49 Acquired absence of other specified parts of digestive tract; Z95.5 Presence of coronary angioplasty implant and graft; Z90.89 Acquired absence of other organs; Z98.51 Tubal ligation status; Z95.820 Peripheral vascular angioplasty status with implants and grafts; Z86.69 Personal history of other diseases of the nervous system and sense organs; Z86.19 Personal history of other infectious and parasitic diseases; Z89.411 Acquired absence of right great toe; Z87.898 Personal history of other specified conditions; Z79.899 Other long term (current) drug therapy; Z79.4 Long term (current) use of insulin; Z79.01 Long term (current) use of anticoagulants; Z79.82 Long term (current) use of aspirin; Z79.891 Long term (current) use of opiate analgesic; Z88.1 Allergy status to other antibiotic agents; Z97.2 Presence of dental prosthetic device (complete) (partial); Z80.49 Family history of malignant neoplasm of other genital organs; Z82.49 Family history of ischemic heart disease and other diseases of the circulatory system; Z83.3 Family history of diabetes mellitus
CPT/HCPCS: 88305; 43239; J2001; J2704

== ENCOUNTER 2020-08-29 11:33 | Observation (INO) | payer MEDICARE, OTHER ==
[2020-08-29] MEDS ORDERED: MORPHINE SULFATE 2 MG/ML SYRINGE IVP ONE (12:19)
[2020-08-29] MEDS ORDERED: SODIUM CHLORIDE 0.9% 1,000 ML IV STA ×2 (12:19→14:22)
[2020-08-29] MEDS ORDERED: ONDANSETRON 4 MG/2 ML VIAL IVP STA (12:19)
--- NOTE | 2020-08-29 13:25 | XR ---
EXAMINATION TYPE: XR chest 2V DATE OF EXAM: 08/29/2020 COMPARISON: 09/28/2019 HISTORY: 60-year-old female with dyspnea, chest pain, shortness of breath TECHNIQUE: AP and lateral views FINDINGS: The cardiomediastinal silhouette, aorta, and pulmonary vasculature are within normal limits. Lungs an d pleural spaces are clear. IMPRESSION: No acute cardiopulmonary process.
--- NOTE | 2020-08-29 13:33 | XR ---
EXAMINATION TYPE: XR knee complete 3 views LT, XR foot complete 3 views LT, XR tibia fibula LT 2 view s DATE OF EXAM: 08/29/2020 COMPARISON: None HISTORY: 60-year-old female with fall and pain FINDINGS: Knee: Tricompartmental degenerative spurring. Extensor mechanism is intact. No significant knee joint effus ion. No acute fracture, subluxation, or dislocation seen. Vascular calcifications. Tibia/fibula: Vascular calcifications within the soft tissues of the mid to distal leg. There may be some mild ante rior pretibial soft tissue swelling proximally. Osteopenia. No acute fracture. Foot: Osteopenia. Os peroneum noted. Bipartite tibial sesamoid. Mild marginal spurring present. The joint. Tiny posterior and plantar heel spurs. No acute fracture, subluxation, or dislocation seen. IMPRESSION: 1. Knee: Tricompartmental osteoporosis. No acute osseous abnormality seen. 2. Tibia/fibula and foot: Osteopenia without acute osseous abnormality seen. There may be some mild p retibial soft tissue swelling proximally in the leg.
[2020-08-29 13:39] LABS: Basophils # (A) 0.2 k/uL (0-0.2); Basophils % (A) 1 %; Eosinophils # (A) 0.3 k/uL (0-0.7); Eosinophils % (A) 2 %; HCT 46.9 % (34.0-46.0); HGB 15.8 gm/dL (11.4-16.0); Lymphocytes # (A) 2.3 k/uL (1.0-4.8); Lymphocytes % (A) 14 %; MCH 29.2 pg (25.0-35.0); MCHC 33.7 g/dL (31.0-37.0); MCV 86.7 fL (80.0-100.0); Mean Platelet Volume 7.8; Monocytes # (A) 0.8 k/uL (0-1.0); Monocytes % (A) 5 %; Neutrophils # (A) 13.5 k/uL (1.3-7.7); Neutrophils % (A) 78 %; Platelet Count 227 k/uL (150-450); RBC 5.41 m/uL (3.80-5.40); RDW 14.4 % (11.5-15.5); WBC 17.2 k/uL (3.8-10.6)
--- NOTE | 2020-08-29 13:50 | ED ---
SOB HPI - General Chief Complaint: Shortness of Breath Stated Complaint: chest pain, SOB Time Seen by Provider: 08/29/20 12:10 Source: patient Mode of arrival: wheelchair Limitations: no limitations - History of Present Illness Initial Comments: Patient is a 60-year-old female, with history of heart disease, diabetes, PEs, presenting to the emergency department with multiple complaints. She states she has been feeling short of breath over the past 3-4 days, extreme fatigue. Patient states also for the past 2 days she's been feeling a lot of pressure on her chest. She is also complaining of increase in her chronic neck pain. She does see a specialist for this. She states the next step is surgery and she does not want this at this time. She denies any headaches, no fevers. She denies any abdominal pain, no nausea or vomiting. She denies any diarrhea. No dysuria. She does complaining of some left knee and left lower leg pain after she fell about one week ago. She did not hit her head during this fall. She states she was able to walk on it but states his been hurting more and more. She has no further complaints at this time. Upon arrival to the ER, her vital signs are stable. - Related Data Home Medications Medication Instructions Recorded Confirmed Gabapentin 800 mg PO BID 12/14/13 08/29/20 Ergocalciferol [Vitamin D2 50,000 unit PO Q14D 08/26/15 08/29/20 (DRISDOL)] Insulin Lispro [humaLOG Kwikpen] See Protocol SQ AC-TID 08/26/15 08/29/20 Insulin Glargine,Hum.rec.anlog 60 unit SQ HS 01/18/17 08/29/20 [Lantus Solostar] Potassium Chloride [K-Tab ER] 10 meq PO AC-BID 03/31/17 08/29/20 Furosemide [Lasix] 20 mg PO Q48H 12/26/17 08/29/20 Aspirin [[place] Aspirin EC] 81 mg PO DAILY 09/07/19 08/29/20 HYDROcodone/APAP 10-325MG [[place] 1 tab PO Q6H PRN 10/13/19 08/29/20 10-325] Albuterol Inhaler [Ventolin Hfa 2 puff INHALATION RT-Q6H PRN 08/29/20 08/29/20 Inhaler] DULoxetine HCL [Cymbalta] 30 mg PO DAILY 08/29/20 08/29/20 Meclizine [Antivert] 12.5 mg PO DAILY 08/29/20 08/29/20 Ondansetron [Zofran ODT] 4 mg PO DAILY PRN 08/29/20 08/29/20 Semaglutide [Rybelsus] 7 mg PO DAILY 08/29/20 08/29/20 Previous Rx's Medication Instructions Recorded Rosuvastatin [Crestor] 10 mg PO HS #0 10/01/16 Apixaban [Eliquis] 5 mg PO BID #60 tab 10/23/18 Allergies Allergy/AdvReac Type Severity Reaction Status Date / Time vancomycin Allergy Rash/Hives/and Verified 08/29/20 14:04 vomiting diarrhea/Swelling Review of Systems ROS Statement: Those systems with pertinent positive or pertinent negative responses have been documented in the HPI. ROS Other: All systems not noted in ROS Statement are negative. Past Medical History Past Medical History: Coronary Artery Disease (CAD), Cancer, Chest Pain / Angina, COPD, CVA/TIA, Diabetes Mellitus, Deep Vein Thrombosis (DVT), GERD/Reflux, Hyperlipidemia, Hypertension, Myocardial Infarction (CO), Osteoarthritis (OA), Pulmonary Embolus (PE) Additional Past Medical History / Comment(s): SKIN CA. 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, NEUROPATHY LEGS & FEET, USING WALKER, .Mutiple DVT,mesentaric th rombosis x2 & PE, PAD, chronic pain syndrome, ddd lumbar region w/radiculopathy, HISTORY OF FALL 01/07/20 , tore rt rotator cuff, pancreatitis, fatty liver., Last Myocardial Infarction Date:: 2010 History of Any Multi-Drug Resistant Organisms: None Reported Past Surgical History: Section, Cholecystectomy, Heart Catheterization, Heart Catheterization With Stent, Orthopedic Surgery, Tonsillectomy, Tubal Ligation Additional Past Surgical History / Comment(s): 11 Stents in left leg, fistula left thigh, full mouth teeth extraction, TRAPEASE VENA CAVA FILTER, carpel tunnel, heart stents x4 rca and lad, tumor removal from uterus. Genital warts removed, INGRID. Skin cancer removed from neck, rt great toe amputated, colonoscopy Past Anesthesia/Blood Transfusion Reactions: No Reported Reaction, Motion Sickness Date of Last Stent Placement:: May 2016 Past Psychological History: Anxiety, Depression Smoking Status: Current every day smoker Past Alcohol Use History: None Reported Past Drug Use History: None Reported - Past Family History Mother Family Medical History: Cancer, Congestive Heart Failure (CHF), Diabetes Mellitus, Myocardial Infarction (CO) Additional Family Medical History / Comment(s): UTERINE CANCER Father Family Medical History: Coronary Artery Disease (CAD), Myocardial Infarction (CO) Additional Family Medical History / Comment(s): Father at age 70. Sister(s) Family Medical History: Myocardial Infarction (CO) Additional Family Medical History / Comment(s): Patient has one sister with myocardial infarction at age 55. Son(s) Family Medical History: Deep Vein Thrombosis (DVT), Pulmonary Embolus Additional Family Medical History / Comment(s): Patient has 2 sons and one has history of DVT and pulmonary embolism. General Exam - General Exam Comments Initial Comments: GENERAL: Patient is well-developed and well-nourished. Patient is nontoxic and in no acute distress. HEAD: Atraumatic, normocephalic. There are no hematomas. EYES: Pupils equal round and reactive to light, extraocular movements intact, sclera anicteric, conjunctiva are normal. Eyelids were unremarkable. ENT: TMs normal, nares patent, oropharynx clear without exudates. Moist mucous membranes. NECK: Normal range of motion, supple without lymphadenopathy or JVD. LUNGS: Unlabored respirations. Breath sounds clear to auscultation bilaterally and equal. No wheezes rales or rhonchi. HEART: Regular rate and rhythm without murmurs, rubs or gallops. ABDOMEN: Soft, nontender, normoactive bowel sounds. No guarding, no rebound. No masses appreciated. : Deferred MUSCULOSKELETAL: She has some mild pain with palpation of the anterior portion of the left knee, there is some bruising present, very mild swelling. She is neurovascularly intact lower extremities bilaterally. Rest of extremities with adequate strength and normal range of motion, no pitting or edema. No clubbing or cyanosis. NEUROLOGICAL: Patient is alert and oriented x 3. Motor and sensory are also intact. Cranial nerves II through XII grossly intact. Symmetrical smile. Normal speech, normal gait. PSYCH: Normal mood, normal affect. SKIN: Warm, Dry, normal turgor, no rashes or lesions noted, No signs of cellulitis. Limitations: no limitations Course Vital Signs 08/29/20 08/29/20 08/29/20 11:45 11:56 12:00 Temperature 98.7 F Pulse Rate 105 H Respiratory 18 Rate Blood Pressure 120/81 O2 Sat by Pulse 100 98 98 Oximetry 08/29/20 08/29/20 08/29/20 12:30 12:36 13:00 Temperature Pulse Rate 96 94 Respiratory 28 H 18 27 H Rate Blood Pressure 135/95 135/95 O2 Sat by Pulse 98 99 Oximetry 08/29/20 08/29/20 08/29/20 13:26 13:30 14:00 Temperature Pulse Rate 95 89 82 Respiratory 16 20 21 Rate Blood Pressure 135/97 135/95 135/95 O2 Sat by Pulse 98 100 98 Oximetry 08/29/20 08/29/20 08/29/20 14:30 15:00 15:30 Temperature Pulse Rate 81 73 77 Respiratory 21 18 12 Rate Blood Pressure 135/95 123/74 123/74 O2 Sat by Pulse 98 97 94 L Oximetry 08/29/20 16:00 Temperature Pulse Rate 96 Respiratory 16 Rate Blood Pressure 123/74 O2 Sat by Pulse Oximetry Medical Decision Making - Medical Decision Making Patient is a 60-year-old female here with multiple complaints but mostly for shortness of breath over the past 3 days as well as chest pressure that started today. Her vital signs are stable upon arrival, no fevers. She does have some tenderness with palpation of the left knee and left lower leg after a fall one week ago. X-rays of her left lower extremity are negative for any acute fractures dislocations, this is most likely just a contusion. Her EKG and chest x-ray showed no acute abnormality. Labs reveal a leukocytosis 17.2, dimer did come back slightly elevated at 0.63, CT a of the chest revealed no evidence for PEs. Labs show stable kidney function, glucose is slightly up at 239, lactic acid elevated at 3.4, troponin is negative, CRP is 18. Urine shows no evidence of infection, rapid covid is not detected. Patient received 2 L of fluids, Zofran and pain control. She's been resting comfortable in ER. I discussed this case with Dr. Tejeda who is okay with admitting a patient for cardiac rule out, serial troponins as well as leukocytosis. There is no active infection identified at this time. We will not start antibiotics as of this time. Dr. Tejeda is in agreement with this. Case discussed with Dr. Daniels. - Lab Data Result diagrams: 08/29/20 13:26 08/29/20 13:26 Lab Results 08/29/20 08/29/20 08/29/20 Range/Units 13:26 13:26 13:26 WBC 17.2 H (3.8-10.6) k/uL RBC 5.41 H (3.80-5.40) m/uL Hgb 15.8 (11.4-16.0) gm/dL Hct 46.9 H (34.0-46.0) % MCV 86.7 (80.0-100.0) fL MCH 29.2 (25.0-35.0) pg MCHC 33.7 (31.0-37.0) g/dL RDW 14.4 (11.5-15.5) % Plt Count 227 (150-450) k/uL MPV 7.8 Neutrophils % 78 % Lymphocytes % 14 % Monocytes % 5 % Eosinophils % 2 % Basophils % 1 % Neutrophils # 13.5 H (1.3-7.7) k/uL Lymphocytes # 2.3 (1.0-4.8) k/uL Monocytes # 0.8 (0-1.0) k/uL Eosinophils # 0.3 (0-0.7) k/uL Basophils # 0.2 (0-0.2) k/uL PT 10.5 (9.0-12.0) sec INR 1.0 (<1.2) APTT 22.5 (22.0-30.0) sec D-Dimer 0.63 H (<0.60) mg/L FEU Sodium (137-145) mmol/L Potassium (3.5-5.1) mmol/L Chloride (98-107) mmol/L Carbon Dioxide (22-30) mmol/L Anion Gap mmol/L BUN (7-17) mg/dL Creatinine (0.52-1.04) mg/dL Est GFR (CKD-EPI)AfAm (>60 ml/min/1.73 sqM) Est GFR (CKD-EPI)NonAf (>60 ml/min/1.73 sqM) Glucose (74-99) mg/dL Lactic Ac Sepsis Rflx Plasma Lactic Acid Mynor (0.7-2.0) mmol/L Calcium (8.4-10.2) mg/dL Total Bilirubin (0.2-1.3) mg/dL AST (14-36) U/L ALT (4-34) U/L Alkaline Phosphatase (38-126) U/L Troponin I (0.000-0.034) ng/mL C-Reactive Protein 18.9 H (<10.0) mg/L Total Protein (6.3-8.2) g/dL Albumin (3.5-5.0) g/dL Urine Color Urine Appearance (Clear) Urine pH (5.0-8.0) Ur Specific [place] (1.001-1.035) Urine Protein (Negative) Urine Glucose (UA) (Negative) Urine Ketones (Negative) Urine Blood (Negative) Urine Nitrite (Negative) Urine Bilirubin (Negative) Urine Urobilinogen (<2.0) mg/dL Ur Leukocyte Esterase (Negative) Coronavirus (PCR) (Not Detectd) 08/29/20 08/29/20 08/29/20 Range/Units 13:26 13:26 13:26 WBC (3.8-10.6) k/uL RBC (3.80-5.40) m/uL Hgb (11.4-16.0) gm/dL Hct (34.0-46.0) % MCV (80.0-100.0) fL MCH (25.0-35.0) pg MCHC (31.0-37.0) g/dL RDW (11.5-15.5) % Plt Count (150-450) k/uL MPV Neutrophils % % Lymphocytes % % Monocytes % % Eosinophils % % Basophils % % Neutrophils # (1.3-7.7) k/uL Lymphocytes # (1.0-4.8) k/uL Monocytes # (0-1.0) k/uL Eosinophils # (0-0.7) k/uL Basophils # (0-0.2) k/uL PT (9.0-12.0) sec INR (<1.2) APTT (22.0-30.0) sec D-Dimer (<0.60) mg/L FEU Sodium 134 L (137-145) mmol/L Potassium 3.4 L (3.5-5.1) mmol/L Chloride 94 L (98-107) mmol/L Carbon Dioxide 30 (22-30) mmol/L Anion Gap 10 mmol/L BUN 6 L (7-17) mg/dL Creatinine 0.92 (0.52-1.04) mg/dL Est GFR (CKD-EPI)AfAm 79 (>60 ml/min/1.73 sqM) Est GFR (CKD-EPI)NonAf 69 (>60 ml/min/1.73 sqM) Glucose 239 H (74-99) mg/dL Lactic Ac Sepsis Rflx Plasma Lactic Acid Mynor 3.4 H* (0.7-2.0) mmol/L Calcium 9.2 (8.4-10.2) mg/dL Total Bilirubin 1.2 (0.2-1.3) mg/dL AST 33 (14-36) U/L ALT 28 (4-34) U/L Alkaline Phosphatase 100 (38-126) U/L Troponin I <0.012 (0.000-0.034) ng/mL C-Reactive Protein (<10.0) mg/L Total Protein 7.4 (6.3-8.2) g/dL Albumin 3.6 (3.5-5.0) g/dL Urine Color Urine Appearance (Clear) Urine pH (5.0-8.0) Ur Specific [place] (1.001-1.035) Urine Protein (Negative) Urine Glucose (UA) (Negative) Urine Ketones (Negative) Urine Blood (Negative) Urine Nitrite (Negative) Urine Bilirubin (Negative) Urine Urobilinogen (<2.0) mg/dL Ur Leukocyte Esterase (Negative) Coronavirus (PCR) (Not Detectd) 08/29/20 08/29/20 08/29/20 Range/Units 14:07 15:00 16:08 WBC (3.8-10.6) k/uL RBC (3.80-5.40) m/uL Hgb (11.4-16.0) gm/dL Hct (34.0-46.0) % MCV (80.0-100.0) fL MCH (25.0-35.0) pg MCHC (31.0-37.0) g/dL RDW (11.5-15.5) % Plt Count (150-450) k/uL MPV Neutrophils % % Lymphocytes % % Monocytes % % Eosinophils % % Basophils % % Neutrophils # (1.3-7.7) k/uL Lymphocytes # (1.0-4.8) k/uL Monocytes # (0-1.0) k/uL Eosinophils # (0-0.7) k/uL Basophils # (0-0.2) k/uL PT (9.0-12.0) sec INR (<1.2) APTT (22.0-30.0) sec D-Dimer (<0.60) mg/L FEU Sodium (137-145) mmol/L Potassium (3.5-5.1) mmol/L Chloride (98-107) mmol/L Carbon Dioxide (22-30) mmol/L Anion Gap mmol/L BUN (7-17) mg/dL Creatinine (0.52-1.04) mg/dL Est GFR (CKD-EPI)AfAm (>60 ml/min/1.73 sqM) Est GFR (CKD-EPI)NonAf (>60 ml/min/1.73 sqM) Glucose (74-99) mg/dL Lactic Ac Sepsis Rflx Y Plasma Lactic Acid [place] (0.7-2.0) mmol/L Calcium (8.4-10.2) mg/dL Total Bilirubin (0.2-1.3) mg/dL AST (14-36) U/L ALT (4-34) U/L Alkaline Phosphatase (38-126) U/L Troponin I (0.000-0.034) ng/mL C-Reactive Protein (<10.0) mg/L Total Protein (6.3-8.2) g/dL Albumin (3.5-5.0) g/dL Urine Color Light Yellow Urine Appearance Clear (Clear) Urine pH 5.0 (5.0-8.0) Ur Specific [place] 1.004 (1.001-1.035) Urine Protein Negative (Negative) Urine Glucose (UA) 1+ H (Negative) Urine Ketones Negative (Negative) Urine Blood Negative (Negative) Urine Nitrite Negative (Negative) Urine Bilirubin Negative (Negative) Urine Urobilinogen <2.0 (<2.0) mg/dL Ur Leukocyte Esterase Negative (Negative) Coronavirus (PCR) Not Detected (Not Detectd) - EKG Data EKG Comments: Normal sinus rhythm, normal ECG, no signs of acute process. Cj rate 99, [place] interval 154, QT 352. Similar to previous on 09/28/2019. Disposition Clinical Impression: Chest pain, Dehydration, Dyspnea, Leukocytosis Disposition: ADMITTED IP TO THIS HOSP Condition: Stable Decision Date: 08/29/20 Decision Time: 16:37
[2020-08-29 14:04] LABS: D-Dimer 0.63 mg/L FEU (<0.60); Prothrombin Time 10.5 sec (9.0-12.0)
[2020-08-29 14:05] LABS: Partial Thromboplastin Time 22.5 sec (22.0-30.0)
[2020-08-29 14:09] LABS: Albumin 3.6 g/dL (3.5-5.0); Calcium 9.2 mg/dL (8.4-10.2); Potassium 3.4 mmol/L (3.5-5.1); Total Bilirubin 1.2 mg/dL (0.2-1.3); Total Protein 7.4 g/dL (6.3-8.2)
[2020-08-29 16:21] LABS: Appearance,Urine Clear (Clear); Bilirubin,Urine Negative (Negative); Blood,Urine Negative (Negative); Color,Urine Light Yellow; Glucose,Urine (UA) 1+ (Negative); Ketones,Urine Negative (Negative); Leukocyte Esterase,Urine Negative (Negative); Nitrite,Urine Negative (Negative); Protein,Urine Negative (Negative); Specific Gravity,Urine 1.004 (1.001-1.035); Urobilinogen,Urine <2.0 mg/dL (<2.0)
--- NOTE | 2020-08-29 16:26 | CT ---
EXAMINATION TYPE: CT chest angio for PE DATE OF EXAM: 08/29/2020 COMPARISON: None HISTORY: Elevated d-dimer. Chest pain. CT DLP: 476.3 mGycm CONTRAST: CT chest with contrast and 3D reconstruction with MIP imaging is performed with IV Contrast, patient injected with 100 mL of Isovue 370. Contrast-enhanced CT of the chest was performed through the course of the pulmonary arteries with carlos eduardo g and mediastinal window settings submitted. 3D reconstruction with MIP imaging was also performed. PULMONARY ARTERIES: The pulmonary arteries and their major tributaries are patent. I do not see selam dence for sizable filling defect to suggest pulmonary embolic process. LUNGS: The lungs are clear and free of infiltrate. No evidence for atelectasis. No pulmonary nodule or mass is detected. No pleural effusion. MEDIASTINUM: Thoracic aorta is of normal caliber,however, evaluation is limited given timing of the contrast bolus. If there is concern for thoracic aortic pathology consider INGRID. Correlate clinicall y . The heart is not enlarged. No evidence for mediastinal mass. No mediastinal lymph nodes greater than 1cm. HILAR STRUCTURES: No evidence for mass. No hilar lymph nodes greater than 1 cm. UPPER ABDOMEN: No significant abnormality is seen. IMPRESSION: 1. No evidence for Pulmonary embolism at this time.
[2020-08-29] MEDS ORDERED: NITROGLYCERIN SL TABS 0.4 MG TAB SUBLINGUAL PRN (16:38)
[2020-08-29] MEDS ORDERED: ACETAMINOPHEN TAB 325 MG TAB PO PRN (18:27)
[2020-08-29] MEDS: HYDROcodone/APAP 10-325MG 1 EACH TAB PO PRN ×2 (18:54→23:55)
[2020-08-29 22:49] LABS: Glucose,Whole Blood 276 mg/dL (75-99)
[2020-08-30 00:47] VITALS: RESP 16
[2020-08-30] MEDS ORDERED: ALBUTEROL HFA INHALER INHALATION PRN (01:18)
[2020-08-30] MEDS ORDERED: FUROSEMIDE 20 MG TAB PO SCH (01:30)
--- NOTE | 2020-08-30 01:47 | P.HPIM ---
History of Present Illness H&P Date: 08/29/20 Chief Complaint: chest pain This is a 60-year-old female patient of [facility] and Dr. Bill with history of CAD with multiple cardiac stents in mid RCA, mid LAD 2, obtuse marginal branch and followed by Dr. Bill closely, normal stress test in August 2018, peripheral artery disease with previous stenting done as well has amputation of the right great toe secondary to osteomyelitis, CVA with no residual deficits, hypertension, COPD, diabetes mellitus type 2, previous multiple DVT and PE requiring chronic anticoagulation on eliquis, history of GI bleed secondary to antral gastritis, esophagitis, patient fall few days ago while she was getting into her house and landed on her right knee, she stated that she has been feeling light headed and weak , tried to hung on to her X-Uisband but when he let go she fell down without obvious injuries, she has also been getting severe pain in her neck due to severe spondylosis and have tried epidural injections X 4 the last one was in 07/12/[address]Hussein Pryor and she was referred to Brian Tejeda at [facility] and was supposed to go see him but she did not make it t her appointment, patient was brought into the ER by her son today with increased chest heaviness associated with increased shortness of breath, was seen in the ER and she underwent a battery of testing reflecting her multiple complaints, had right knee X-Ray and foot X-ray that showed evidence of osteoarthritis without any fracture, CXR was negative 12-Lead EKG showed normal sinus rhythm without acute ST, T waves changes, CTA of the chest was negative for PE, patient was found to have leukocytosis without evidence of infection and she was admitted to the hospital for evaluation and treatment. Review of Systems Constitutional: Reports chronic pain, Reports fatigue, Reports weakness, Reports weight gain Eyes: denies blurred vision, denies bulging eye, denies decreased vision Ears, nose, mouth and throat: Reports vertigo, Denies dysphagia, Denies neck lump, Denies sore throat Cardiovascular: Reports chest pain, Reports decreased exercise tolerance, Reports dyspnea on exertion, Reports lightheadedness, Reports shortness of breath, Denies leg edema, Denies orthopnea, Denies phlebitis, Denies rapid heart beat, Denies syncope Respiratory: Denies congestion, Denies home oxygen, Denies sleep apnea, Denies snoring, Denies wheezing Gastrointestinal: Reports bloating, Denies abdominal pain, Denies BRBPR, Denies heartburn, Denies hematemesis, Denies loss of appetite, Denies melena, Denies nausea, Denies vomiting Genitourinary: Reports nocturia, Denies dysuria Menstruation: Reports postmenopausal Musculoskeletal: Reports frequent falls, Reports gait dysfunction, Reports low back pain, Reports neck pain, Reports neck stiffness, Reports shooting arm pain Musculoskeletal: left: foot pain, foot stiffness, hand pain, hand stiffness, hand swelling, knee pain, knee stiffness, knee swelling, bilateral: ankle pain, ankle stiffness, absent: as per HPI, elbow pain, elbow stiffness, elbow swelling, foot swelling, hip pain, hip stiffness, hip swelling, shoulder pain, shoulder stiffness, shoulder swelling, wrist pain, wrist stiffness, wrist swelling Integumentary: Denies pruritus, Denies rash Neurological: Reports gait dysfunction, Reports numbness, Reports paresthesias, Reports sensory deficit, Reports vertigo, Reports weakness Psychiatric: Reports anxiety, Reports depression, Reports insomnia, Reports sadness/tearfulness, Reports sleep disturbances, Denies suicidal ideation Endocrine: Denies fatigue, Denies weight change Past Medical History Past Medical History: Coronary Artery Disease (CAD), Cancer, Chest Pain / Karla na, COPD, CVA/TIA, Diabetes Mellitus, Deep Vein Thrombosis (DVT), GERD/Reflux, Hyperlipidemia, Hypertension, Myocardial Infarction ([place]), Osteoarthritis (OA), Pulmonary Embolus (PE) Additional Past Medical History / Comment(s): SKIN CA. 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, NEUROPATHY LEGS & FEET, USING WALKER, .Mutiple DVT,mesentaric thrombosis x2 & PE, PAD, chronic pain syndrome, ddd lumbar region w/radiculopathy, HISTORY OF FALL 01/07/20 , tore rt rotator cuff, pancreatitis, fatty liver., Last Myocardial Infarction Date:: 2010 History of Any Multi-Drug Resistant Organisms: None Reported Past Surgical History: Section, Cholecystectomy, Heart Catheterization, Heart Catheterization With Stent, Orthopedic Surgery, Tonsillectomy, Tubal Ligation Additional Past Surgical History / Comment(s): 11 Stents in left leg, fistula left thigh, full mouth teeth extraction, TRAPEASE VENA CAVA FILTER, carpel tunnel, heart stents x4 rca and lad, tumor removal from uterus. Genital warts removed, INGRID. Skin cancer removed from neck, rt great toe amputated, colonoscopy Past Anesthesia/Blood Transfusion Reactions: No Reported Reaction, Motion Sick ness Date of Last Stent Placement:: May 2016 Past Psychological History: Anxiety, Depression Additional Psychological History / Comment(s): Depression r/t health issues. Smoking Status: Current some day smoker Past Alcohol Use History: None Reported Additional Past Alcohol Use History / Comment(s): STARTED SMOKING IN 1993 SMOKES 1/2 PPD Past Drug Use History: None Reported - Past Family History Mother Family Medical History: Cancer, Congestive Heart Failure (CHF), Diabetes Mellitus, Myocardial Infarction ([place]) Additional Family Medical History / Comment(s): UTERINE CANCER Father Family Medical History: Coronary Artery Disease (CAD), Myocardial Infarction ([place]) Additional Family Medical History / Comment(s): Father at age 70. Sister(s) Family Medical History: Myocardial Infarction ([place]) Additional Family Medical History / Comment(s): Patient has one sister with myocardial infarction at age 55. Son(s) Family Medical History: Deep Vein Thrombosis (DVT), Pulmonary Embolus Additional Family Medical History / Comment(s): Patient has 2 sons and one has history of DVT and pulmonary embolism. Medications and Allergies Home Medications Medication Instructions Recorded Confirmed Type Gabapentin 800 mg PO BID 12/14/13 08/29/20 History Ergocalciferol [Vitamin D2 50,000 unit PO Q14D 08/26/15 08/29/20 History (DRISDOL)] Insulin Lispro [humaLOG Kwikpen] See Protocol SQ AC-TID 08/26/15 08/29/20 History Rosuvastatin [Crestor] 10 mg PO HS #0 10/01/16 08/29/20 Rx Insulin Glargine,Hum.rec.anlog 60 unit SQ HS 01/18/17 08/29/20 History [Lantus Solostar] Potassium Chloride [K-Tab ER] 10 meq PO AC-BID 03/31/17 08/29/20 History Furosemide [Lasix] 20 mg PO Q48H 12/26/17 08/29/20 History Apixaban [Eliquis] 5 mg PO BID #60 tab 10/23/18 08/29/20 Rx Aspirin [[place] Aspirin EC] 81 mg PO DAILY 09/07/19 08/29/20 History HYDROcodone/APAP 10-325MG [Carmichaels 1 tab PO Q6H PRN 10/13/19 08/29/20 History 10-325] Albuterol Inhaler [Ventolin Hfa 2 puff INHALATION RT-Q6H PRN 08/29/20 08/29/20 History Inhaler] DULoxetine HCL [Cymbalta] 30 mg PO DAILY 08/29/20 08/29/20 History Meclizine [Antivert] 12.5 mg PO DAILY 08/29/20 08/29/20 History Ondansetron [Zofran ODT] 4 mg PO DAILY PRN 08/29/20 08/29/20 History Semaglutide [Rybelsus] 7 mg PO DAILY 08/29/20 08/29/20 History Allergies Allergy/AdvReac Type Severity Reaction Status Date / Time vancomycin Allergy Rash/Hives/and Verified 08/29/20 14:04 vomiting diarrhea/Swelling Physical Exam Vitals: Vital Signs Temp Pulse Pulse Resp BP BP Pulse Ox 08/30/20 00:45 98.6 F 76 16 112/75 95 08/29/20 20:00 68 17 08/29/20 19:54 98.4 F 68 17 113/71 08/29/20 19:20 98.7 F 88 18 102/69 98 08/29/20 19:00 98.4 F 68 18 113/71 96 08/29/20 18:20 88 18 102/69 98 08/29/20 16:00 96 16 123/74 08/29/20 15:30 77 12 123/74 94 L 08/29/20 15:00 73 18 123/74 97 08/29/20 14:30 81 21 135/95 98 08/29/20 14:00 82 21 135/95 98 08/29/20 13:30 89 20 135/95 100 08/29/20 13:26 95 16 135/97 98 08/29/20 13:00 94 27 H 135/95 99 08/29/20 12:36 18 08/29/20 12:30 96 28 H 135/95 98 08/29/20 12:00 98 08/29/20 11:56 98 08/29/20 11:45 98.7 F 105 H 18 120/81 100 Intake and Output 08/29/20 08/29/2008/30/21 14:59 22:59 06:59 Other: Weight 96.615 kg 96.615 kg Gen: This is a 60-year-old female. She is resting in bed and appears to be comfortable and in no acute distress. HEENT: Head is atraumatic, normocephalic. Pupils equal, round.reactive to light and accommodations extra ocular muscle movements were intact Sclerae is anicteric., mucous membranes of the mouth are somewhat dry. NECK: Supple. No JVD. No lymphadenopathy. No thyromegaly. LUNGS: Clear to auscultation. No wheezes or rhonchi. No intercostal retract ions. 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 ABDOMEN: Soft. Bowel sounds are present. No masses. No abdominal tenderness, no rebound or guarding, no hepatosplenomegaly. EXTREMITIES: No pedal edema. No calf tenderness. Edema fluid to the left knee with minimal bruising. Dorsalis pedis +1 bilaterally. Decreased range of motion to the left knee, right big toe amputation. NEUROLOGICAL: Patient is awake, alert and oriented x3. Cranial nerves II-XII are grossly intact, muscle power 3/5 in left upper extremity, 4/5 in the right upper extremity, 4/5 in bilateral lower extremities, deep tendon reflexes were depressed bilaterally, there is neuropathic changes in both feet. Results CBC & Chem 7: 08/29/20 13:26 08/29/20 13:26 Labs: Abnormal Lab Results - Last 24 Hours (Table) 08/29/20 08/29/20 08/29/20 Range/Units 13:26 13:26 13:26 WBC 17.2 H (3.8-10.6) k/uL RBC 5.41 H (3.80-5.40) m/uL Hct 46.9 H (34.0-46.0) % Neutrophils # 13.5 H (1.3-7.7) k/uL D-Dimer 0.63 H (<0.60) mg/L FEU Sodium (137-145) mmol/L Potassium (3.5-5.1) mmol/L Chloride (98-107) mmol/L BUN (7-17) mg/dL Glucose (74-99) mg/dL POC Glucose (mg/dL) (75-99) mg/dL Plasma Lactic Acid Mynor (0.7-2.0) mmol/L C-Reactive Protein 18.9 H (<10.0) mg/L Urine Glucose (UA) (Negative) 08/29/20 08/29/20 08/29/20 Range/Units 13:26 13:26 16:08 WBC (3.8-10.6) k/uL RBC (3.80-5.40) m/uL Hct (34.0-46.0) % Neutrophils # (1.3-7.7) k/uL D-Dimer (<0.60) mg/L FEU Sodium 134 L (137-145) mmol/L Potassium 3.4 L (3.5-5.1) mmol/L Chloride 94 L (98-107) mmol/L BUN 6 L (7-17) mg/dL Glucose 239 H (74-99) mg/dL POC Glucose (mg/dL) (75-99) mg/dL Plasma Lactic Acid Mynor 3.4 H* (0.7-2.0) mmol/L C-Reactive Protein (<10.0) mg/L Urine Glucose (UA) 1+ H (Negative) 08/29/20 08/29/20 Range/Units 16:59 22:48 WBC (3.8-10.6) k/uL RBC (3.80-5.40) m/uL Hct (34.0-46.0) % Neutrophils # (1.3-7.7) k/uL D-Dimer (<0.60) mg/L FEU Sodium (137-145) mmol/L Potassium (3.5-5.1) mmol/L Chloride (98-107) mmol/L BUN (7-17) mg/dL Glucose (74-99) mg/dL POC Glucose (mg/dL) 276 H (75-99) mg/dL Plasma Lactic Acid Mynor 2.8 H* (0.7-2.0) mmol/L C-Reactive Protein (<10.0) mg/L Urine Glucose (UA) (Negative) Thrombosis Risk Factor Assmnt - DVT/VTE Prophylaxis DVT/VTE Prophylaxis: Pharmacologic Prophylaxis ordered - Choose All That Apply Any of the Below Risk Factors Present?: Yes Each Factor Represents 1 point: Obesity (BMI >25), Varicose veins Other Risk Factors: Yes Each Risk Factor Represents 3 Points: History of DVT/PE Other congenital or acquired thrombophilia - If yes, enter type in comment: No Thrombosis Risk Factor Assessment Total Risk Factor Score: 5 Thrombosis Risk Factor Assessment Level: High Risk Assessment and Plan Assessment: Assessment and plan: 1. Chest pain in patient with prior history of CAD post PCI. we will continue with ASA 325 mg orally daily, Crestor or Lipitor 40 mg orally daily, she was taken off her RISHI and Beta blockers due to hypotension and falls, we will chek cadiac enzymes, telemetry and cardiology consult, last stress test in 2019. 2. Left knee pain with minimal bruising X-ray negative for fracture or dislocation. we will contiue with middleton control and apply ice packs. 3. Diabetes mellitus type 2, uncontrolled with hyperglycemia. Hemoglobin A1c. Continue Levemir 70 units at bedtime, NovoLog scale before meals and at bedtime. 4. Coronary artery disease status post multiple PCI with ischemic cardiomyopathy. Continue Lasix 20 mg every 48 hours, aspirin 81 mg daily and Lipitor 40 mg orally daily. 4. Hypertension and hypertensive cardiovascular disease. Continue Lasix.was taken off BB and RISHI-I due to hypotension and increased falling. 5. Chronic DVT and PEs. Continue eliquis 5 mg orally bid for life. 6. Chronic tobacco use and dependence with COPD. smoking cessation and counseling. 7. Hyperlipidemia. Continue Lipitor 40 mg po daily. 8. Diabetic polyneuropathy. Continue gabapentin 800 mg 3 times daily . 9. Severe PAD. Continue aspirin 81 mg orally daily and Lipitor 40 mg orally daily with increased walking exercise, has been under the care of . 10. Recurrent depression. Continue Cymbalta 30 mg daily. 11. GI prophylaxis. we will continue with Protonix 40 mg orally daily, 12. DVT prophylaxis. we will continue with Eliquis 5 mg orally bid. 13. Patient admitted to the hospital for a minimum of 2 night stay. 14. Full code. 15. Discharge plan: Return home.
[2020-08-30 03:07] LABS: Cholesterol 134 mg/dL (<200); HDL Cholesterol 32 mg/dL (40-60); LDL Cholesterol,Calculated 60 mg/dL (0-99); Triglycerides 210 mg/dL (<150)
[2020-08-30 05:22] LABS: Basophils # (A) 0.1 k/uL (0-0.2); Basophils % (A) 1 %; Eosinophils # (A) 0.3 k/uL (0-0.7); Eosinophils % (A) 3 %; HCT 40.2 % (34.0-46.0); Lymphocytes # (A) 2.1 k/uL (1.0-4.8); Lymphocytes % (A) 22 %; MCH 28.6 pg (25.0-35.0); MCHC 32.3 g/dL (31.0-37.0); MCV 88.8 fL (80.0-100.0); Mean Platelet Volume 7.8; Monocytes # (A) 0.4 k/uL (0-1.0); Monocytes % (A) 4 %; Neutrophils % (A) 70 %; Platelet Count 163 k/uL (150-450); RBC 4.53 m/uL (3.80-5.40); RDW 14.6 % (11.5-15.5); WBC 9.9 k/uL (3.8-10.6)
[2020-08-30 07:06] LABS: Glucose,Whole Blood 290 mg/dL (75-99)
[2020-08-30] MEDS ORDERED: C PO SCH (07:30)
[2020-08-30] MEDS ORDERED: CAFFEINE CITRATE 60 MG/3 ML VIAL IV PRN (08:24)
[2020-08-30] MEDS ORDERED: REGADENOSON 0.4 MG/5 ML SYRINGE IV PRN (08:24)
[2020-08-30] MEDS ORDERED: AMINOPHYLLINE 500 MG/20 ML VIAL IV PRN (08:24)
[2020-08-30] MEDS: INSULIN ASPART (NovoLOG) 100 UNIT/ML VIAL SQ SCH ×2 (08:41→12:57)
[2020-08-30] MEDS ORDERED: ASPIRIN 81 MG PO SCH (09:00)
[2020-08-30] MEDS ORDERED: GABAPENTIN 400 MG CAP PO SCH (09:00)
[2020-08-30] MEDS ORDERED: DULoxetine HCL 30 MG CAPSULE.DR PO SCH (09:00)
[2020-08-30] MEDS ORDERED: ASPIRIN 325 MG TAB PO SCH (09:00)
[2020-08-30] MEDS ORDERED: Semaglutide [Rybelsus] 7 MG Tablet PO SCH (09:00)
[2020-08-30] MEDS ORDERED: APIXABAN 5 MG TAB PO SCH (09:00)
[2020-08-30 10:17] LABS: African American GFR (CKD) 71.4 (60.0-200.0); Albumin 3.1 g/dL (3.80-4.90); Albumin/Globulin Ratio 1.63 (1.60-3.17); Anion Gap 13.2 mmol/L (4.00-12.00); Calcium 8.2 mg/dL (8.7-10.3); Carbon Dioxide 28.8 mmol/L (21.6-31.8); Globulin 1.9 g/dL (1.6-3.3); Magnesium 1.2 mg/dL (1.5-2.4); Non-African American GFR(CKD) 61.6 (60.0-200.0); Potassium 3.7 mmol/L (3.5-5.5); Total Bilirubin 0.9 mg/dL (0.3-1.2)
--- NOTE | 2020-08-30 10:27 | P.CRDCN ---
History of Present Illness Consult date: 08/30/20 History of present illness: CHIEF COMPLAINT: Chest pain HISTORY OF PRESENT ILLNESS: This is a 60-year-old female with a past medical history significant for coronary artery disease with previous PCI, COPD, DVT, hyperlipidemia, hypertension, and nicotine dependence. Patient follows in the office with Dr. Blil. We have been asked to see the patient in consultation for chest pain. Patient states that she fell on Saturday in her back deck. She states the following day she began having shortness of breath and chest heavines s. She reports feeling very fatigued and weak. She states that she slept for majority of the day on Saturday which is unlike her. She denied any radiation of the pain. Denied nausea or vomiting. Denied dizziness or lightheadedness. Patient continues to report mild chest heaviness this morning. She has a constant nonproductive cough at the time of examination. Patient states that she was diagnosed with bronchitis about a month ago. She is also a smoker and reports smoking half a pack per day. Patient states her blood pressure has been running on the low side and Dr. Tejeda discontinued some of her blood pressure medications (patient's beta nisa and RISHI inhibitor were discontinued per Dr. Hawk dictation). DIAGNOSTICS: EKG reveals sinus rhythm with no signs of acute ischemia Chest xray for acute process Laboratory data: WBC 9.9. Hemoglobin 13.0. Platelet count 163. Sodium 134. Potassium 3.7. BUN 8. Creatinine 1.0. Lactic acid 1.7. Troponin negative 3. Current home cardiac medications include Crestor 10 mg daily, Lasix 20 mg every 48 hours, aspirin 81 mg daily, and Eliquis 5 mg twice a day Lexiscan completed in August 2018 was negative for reversible ischemia Echocardiogram completed in 2018 revealed ejection fraction 45-50% REVIEW OF SYSTEMS: At the time of my exam: CONSTITUTIONAL: Denies fever or chills. HEENT: Denies blurred vision, vision changes, or eye pain. Denies hemoptysis CARDIOVASCULAR: Reports mild chest pressure. Denies orthopnea, PND or palpitations RESPIRATORY: No shortness of breath. GASTROINTESTINAL: Denies abdominal pain. Denies nausea or vomiting. HEMATOLOGIC: Denies bleeding disorders. GENITOURINARY: Denies any blood in urine. SKIN: Denies pruitis. Denies rash. PHYSICAL EXAM: VITAL SIGNS: Reviewed. GENERAL: Well-developed in no acute distress. HEENT: Head is normocephalic. Pupils are equal, round. Sclerae anicteric. Mucous membranes of the mouth are moist. Neck supple. No JVD or thyromegaly LUNGS: Respirations even and unlabored. Lungs diminished bilaterally. Frequent nonproductive hacking cough noted. HEART: Regular rate and rhythm. S1 and S2 heard. ABDOMEN: Soft. Nondistended. Nontender. EXTREMITIES: Normal range of motion. No clubbing or cyanosis. Peripheral pulses intact. No lower extremity edema NEUROLOGIC: Awake and alert. Oriented x 3. ASSESSMENT: Chest pain Coronary artery disease with previous stent placement 4, last in 2014 Hypertension, recently taken off RISHI inhibitor and beta nisa secondary to hyp otension, per PCP Hyperlipidemia History of DVT/PE, on anticoagulation with Eliquis COPD Nicotine dependence, patient smokes half pack per day PLAN: Resume home cardiac medications Obtain 2-D echo to assess cardiac structure and function Obtain Lexiscan stress test to assess for reversible ischemia Further recommendations pending patient's course Nurse practitioner note has been reviewed by physician. Signing provider agrees with the documented findings, assessment, and plan of care. Past Medical History Past Medical History: Coronary Artery Disease (CAD), Cancer, Chest Pain / Angina, COPD, CVA/TIA, Diabetes Mellitus, Deep Vein Thrombosis (DVT), GERD/Reflux, Hyperlipidemia, Hypertension, Myocardial Infarction (CT), Osteoarthritis (OA), Pulmonary Embolus (PE) Additional Past Medical History / Comment(s): SKIN CA. 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, NEUROPATHY LEGS & FEET, USING WALKER, .Mutiple DVT,mesentaric thrombosis x2 & PE, PAD, chronic pain syndrome, ddd lumbar region w/radiculopathy, HISTORY OF FALL 01/07/20 , tore rt rotator cuff, pancreatitis, fatty liver., Last Myocardial Infarction Date:: 2010 History of Any Multi-Drug Resistant Organisms: None Reported Past Surgical History: Section, Cholecystectomy, Heart Catheterization, Heart Catheterization With Stent, Orthopedic Surgery, Tonsillectomy, Tubal Ligation Additional Past Surgical History / Comment(s): 11 Stents in left leg, fistula left thigh, full mouth teeth extraction, TRAPEASE VENA CAVA FILTER, carpel tunnel, heart stents x4 rca and lad, tumor removal from uterus. Genital warts removed, INGRID. Skin cancer removed from neck, rt great toe amputated, colonoscopy Past Anesthesia/Blood Transfusion Reactions: No Reported Reaction, Motion Sickness Date of Last Stent Placement:: May 2016 Past Psychological History: Anxiety, Depression Additional Psychological History / Comment(s): Depression r/t health issues. Smoking Status: Current some day smoker Past Alcohol Use History: None Reported Additional Past Alcohol Use History / Comment(s): STARTED SMOKING IN 1993 SMOKES 1/2 PPD Past Drug Use History: None Reported - Past Family History Mother Family Medical History: Cancer, Congestive Heart Failure (CHF), Diabetes Mellitus, Myocardial Infarction (CT) Additional Family Medical History / Comment(s): UTERINE CANCER Father Family Medical History: Coronary Artery Disease (CAD), Myocardial Infarction (CT) Additional Family Medical History / Comment(s): Father at age 70. Sister(s) Family Medical History: Myocardial Infarction (CT) Additional Family Medical History / Comment(s): Patient has one sister with myocardial infarction at age 55. Son(s) Family Medical History: Deep Vein Thrombosis (DVT), Pulmonary Embolus Additional Family Medical History / Comment(s): Patient has 2 sons and one has history of DVT and pulmonary embolism. Medications and Allergies Home Medications Medication Instructions Recorded Confirmed Type Gabapentin 800 mg PO BID 12/14/13 08/29/20 History Ergocalciferol [Vitamin D2 50,000 unit PO Q14D 08/26/15 08/29/20 History (DRISDOL)] Insulin Lispro [humaLOG Kwikpen] See Protocol SQ AC-TID 08/26/15 08/29/20 History Rosuvastatin [Crestor] 10 mg PO HS #0 10/01/16 08/29/20 Rx Insulin Glargine,Hum.rec.anlog 60 unit SQ HS 01/18/17 08/29/20 History [Lantus Solostar] Potassium Chloride [K-Tab ER] 10 meq PO AC-BID 03/31/17 08/29/20 History Furosemide [Lasix] 20 mg PO Q48H 12/26/17 08/29/20 History Apixaban [Eliquis] 5 mg PO BID #60 tab 10/23/18 08/29/20 Rx Aspirin [[employer] Aspirin EC] 81 mg PO DAILY 09/07/19 08/29/20 History HYDROcodone/APAP 10-325MG [[place] 1 tab PO Q6H PRN 10/13/19 08/29/20 History 10-325] Albuterol Inhaler [Ventolin Hfa 2 puff INHALATION RT-Q6H PRN 08/29/20 08/29/20 History Inhaler] DULoxetine HCL [Cymbalta] 30 mg PO DAILY 08/29/20 08/29/20 History Meclizine [Antivert] 12.5 mg PO DAILY 08/29/20 08/29/20 History Ondansetron [Zofran ODT] 4 mg PO DAILY PRN 08/29/20 08/29/20 History Semaglutide [Rybelsus] 7 mg PO DAILY 08/29/20 08/29/20 History Allergies Allergy/AdvReac Type Severity Reaction Status Date / Time vancomycin Allergy Rash/Hives/and Verified 08/29/20 14:04 vomiting diarrhea/Swelling Physical Exam Vitals: Vital Signs Temp Pulse Pulse Resp BP BP Pulse Ox 08/30/20 07:51 97.7 F 68 16 110/67 93 L 08/30/20 00:45 98.6 F 76 16 112/75 95 08/29/20 20:00 68 17 08/29/20 19:54 98.4 F 68 17 113/71 08/29/20 19:20 98.7 F 88 18 102/69 98 08/29/20 19:00 98.4 F 68 18 113/71 96 08/29/20 18:20 88 18 102/69 98 08/29/20 16:00 96 16 123/74 08/29/20 15:30 77 12 123/74 94 L 08/29/20 15:00 73 18 123/74 97 08/29/20 14:30 81 21 135/95 98 08/29/20 14:00 82 21 135/95 98 08/29/20 13:30 89 20 135/95 100 08/29/20 13:26 95 16 135/97 98 08/29/20 13:00 94 27 H 135/95 99 08/29/20 12:36 18 08/29/20 12:30 96 28 H 135/95 98 08/29/20 12:00 98 08/29/20 11:56 98 08/29/20 11:45 98.7 F 105 H 18 120/81 100 Intake and Output 08/29/20 08/30/20 08/30/20 22:59 06:59 14:59 Intake Total 300 Balance 300 Intake: Oral 300 Other: # Voids 3 Weight 96.615 kg Results 08/30/20 04:43 08/30/20 04:43 Cardiac Enzymes 08/29/20 08/29/20 08/29/20 Range/Units 13:26 13:26 16:59 AST 33 (14-36) U/L Troponin I <0.012 <0.012 (0.000-0.034) ng/mL 08/29/20 Range/Units 19:36 AST (14-36) U/L Troponin I <0.012 (0.000-0.034) ng/mL Coagulation 08/29/20 Range/Units 13:26 PT 10.5 (9.0-12.0) sec APTT 22.5 (22.0-30.0) sec Lipids 08/29/20 Range/Units 13:26 Triglycerides 210 H (<150) mg/dL Cholesterol 134 (<200) mg/dL HDL Cholesterol 32 L (40-60) mg/dL CBC 08/29/20 08/30/20 Range/Units 13:26 04:43 WBC 17.2 H 9.9 (3.8-10.6) k/uL RBC 5.41 H 4.53 (3.80-5.40) m/uL Hgb 15.8 13.0 (11.4-16.0) gm/dL Hct 46.9 H 40.2 (34.0-46.0) % Plt Count 227 163 (150-450) k/uL Comprehensive Metabolic Panel 08/29/20 Range/Units 13:26 Sodium 134 L (137-145) mmol/L Potassium 3.4 L (3.5-5.1) mmol/L Chloride 94 L (98-107) mmol/L Carbon Dioxide 30 (22-30) mmol/L BUN 6 L (7-17) mg/dL Creatinine 0.92 (0.52-1.04) mg/dL Glucose 239 H (74-99) mg/dL Calcium 9.2 (8.4-10.2) mg/dL AST 33 (14-36) U/L ALT 28 (4-34) U/L Alkaline Phosphatase 100 (38-126) U/L Total Protein 7.4 (6.3-8.2) g/dL Albumin 3.6 (3.5-5.0) g/dL Current Medications Generic Name Dose Route Start Last Admin Trade Name Freq PRN Reason Stop Dose Admin Acetaminophen 650 mg 08/29/20 18:27 Acetaminophen Tab 325 Mg Tab PO Q4HR PRN Fever and/ or Pain Hydrocodone Bitart/Acetaminophen 1 each 08/29/20 18:28 08/29/20 23:55 Hydrocodone/Apap 10-325mg 1 Each Tab PO 1 each Q6H PRN Administration Pain Albuterol Sulfate 2 puff 08/30/20 01:18 Albuterol Hfa Inhaler INHALATION RT-Q6H PRN Shortness Of Breath Aminophylline 100 mg 08/30/20 08:24 Aminophylline 500 Mg/20 Ml Vial IV 08/30/20 12:24 ONCE PRN Patient Response Apixaban 5 mg 08/30/20 09:00 08/30/20 08:38 Apixaban 5 Mg Tab PO 5 mg BID AGNES Administration Aspirin 81 mg 08/30/20 09:00 08/30/20 08:37 Aspirin 81 Mg PO 81 mg DAILY AGNES Administration Atorvastatin Calcium 20 mg 08/30/20 21:00 Atorvastatin 20 Mg Tab PO HS AGNES Caffeine Citrate 60 mg 08/30/20 08:24 Caffeine Citrate 60 Mg/3 Ml Vial IV 08/30/20 12:24 ONCE PRN Patient Response Duloxetine HCl 30 mg 08/30/20 09:00 08/30/20 08:37 Duloxetine Hcl 30 Mg Capsule.Dr PO 30 mg DAILY AGNES Administration Ergocalciferol 1,250 mcg 09/11/20 09:00 Ergocalciferol 1,250 Mcg (50,000 Iu) Capsule PO Q14D AGNES Furosemide 20 mg 08/30/20 01:30 08/30/20 03:13 Furosemide 20 Mg Tab PO 20 mg Q48H AGNES Administration Gabapentin 800 mg 08/30/20 09:00 08/30/20 08:37 Gabapentin 400 Mg Cap PO 800 mg BID AGNES Administration Insulin Aspart 0 unit 08/30/20 07:30 08/30/20 08:41 Insulin Aspart (Novolog) 100 Unit/Ml Vial SQ Not Given ACHS [facility] Protocol Insulin Detemir 70 unit 08/30/20 21:00 Insulin Detemir (Levemir) 100 Unit/Ml Syr SQ HS AGNES Nitroglycerin 0.4 mg 08/29/20 16:38 Nitroglycerin Sl Tabs 0.4 Mg Tab SUBLINGUAL Q5M PRN Chest Pain Semaglutide [ 7 mg 08/30/20 09:00 08/30/20 08:40 Rybelsus] 7 Mg PO Not Given Tablet DAILY AGNES Potassium Chloride 10 meq 08/30/20 07:30 08/30/20 08:37 C PO 10 meq AC-BID AGNES Administration Regadenoson 0.4 mg 08/30/20 08:24 Regadenoson 0.4 Mg/5 Ml Syringe IV 08/30/20 12:24 ONCE PRN Per Protocol Intake and Output 08/29/20 08/30/20 08/30/20 22:59 06:59 14:59 Intake Total 300 Balance 300 Intake: Oral 300 Other: # Voids 3 Weight 96.615 kg 08/30/20 04:43 08/29/20 13:26
--- NOTE | 2020-08-30 11:25 | NM ---
EXAMINATION TYPE: NM stress lexiscan cardiolite DATE OF EXAM: 08/30/2020 COMPARISON: NONE HISTORY: Precordial chest pain and abnormal EKG. TECHNIQUE: After the intravenous administration of 10.6 mCi Tc 99m Sestamibi - Cardiolite resting SP ECT images acquired 45 minutes post injection. The patient received 0.4mg Lexiscan, 26.9 mCi Tc 99m Sestamibi - Stress images obtained [address] injection FINDINGS: Review of stress and rest SPECT images demonstrates no distinct perfusion abnormality. Gated analysi s shows normal wall motion with an estimated left ventricular ejection fraction of 52 %. IMPRESSION: No scintigraphic evidence for reversible ischemia.
--- NOTE | 2020-08-30 11:55 | ECHOF ---
Referral Reason:LV function, chest pain MEASUREMENTS -------- HEIGHT: 170.2 cm WEIGHT: 96.6 kg BP: IVSd: 1.5 cm (0.6 - 1.1) LVIDd: 3.7 cm (3.9 - 5.3) LVPWd: 1.9 cm (0.6 - 1.1) IVSs: 1.7 cm LVIDs: 3.9 cm LVPWs: 1.4 cm LA Diam: 4.1 cm (2.7 - 3.8) Ao Diam: 3.3 cm (2.0 - 3.7) AV Cusp: 1.9 cm (1.5 - 2.6) MV EXCURSION: 14.230 mm (> 18.000) MV EF SLOPE: 58 mm/s (70 - 150) EPSS: 0.9 cm MV E Jesus: 0.40 m/s MV DecT: 302 ms MV A Jesus: 0.76 m/s MV E/A Ratio: 0.53 RAP: 5.00 mmHg RVSP: 11.16 mmHg FINDINGS -------- Sinus rhythm. This was a techncally difficult study with suboptimal views, , Definity utilized for enhancement of i mages. The left ventricular size is normal. There is moderate concentric left ventricular hypertrophy. O verall left ventricular systolic function is low-normal with, an EF between 50 - 55 %. The right ventricle is normal in size. The left atrium is mildly dilated. The right atrial size is normal. xx ml of Lumason was utilized for enhancement of images. The aortic valve is trileaflet, and appears structurally normal. No aortic stenosis or regurgitation. The mitral valve is normal. Mild mitral regurgitation is present. The tricuspid valve appears structurally normal. Mild tricuspid regurgitation present. Right vent ricular systolic pressure is normal at < 35 mmHg. The pulmonic valve was not well visualized. There is no pulmonic regurgitation present. The aortic root size is normal. Echo free space indicative of a pericardial fat pad. CONCLUSIONS -------- 1. This was a techncally difficult study with suboptimal views, , Definity utilized for enhancement o f images. 2. There is moderate concentric left ventricular hypertrophy. 3. Overall left ventricular systolic function is low-normal with, an EF between 50 - 55 %. 4. The left atrium is mildly dilated. 5. xx ml of Lumason was utilized for enhancement of images. 6. The aortic valve is trileaflet, and appears structurally normal. No aortic stenosis or regurgitati on. 7. Mild mitral regurgitation is present. 8. Mild tricuspid regurgitation present. PROCUREMENT CLERK: Ling Madrid RDCS
[2020-08-30 11:56] LABS: Glucose,Whole Blood 275 mg/dL (75-99)
[2020-08-30] MEDS: HYDROcodone/APAP 10-325MG 1 EACH TAB PO PRN (13:04)
--- NOTE | 2020-08-30 13:20 | P.DS ---
Providers Date of admission: 08/29/20 16:31 Expected date of discharge: 08/30/20 Attending physician: Tramaine Tejeda Consults: 08/29/20 16:38 Consult Physician Urgent Consulting Provider: [facility] Consult Reason/Comments: chest pain, dyspnea Do you want consulting provider notified?: Yes Primary care physician: Tramaine Tejeda Hospital Course: This is a 60-year-old female patient of [facility] and Dr. Bill with history of CAD with multiple cardiac stents in mid RCA, mid LAD 2, obtuse marginal branch and followed by Dr. Bill closely, normal stress test in August 2018, peripheral artery disease with previous stenting done as well has amputation of the right great toe secondary to osteomyelitis, CVA with no residual deficits, hypertension, COPD, diabetes mellitus type 2, previous multiple DVT and PE requiring chronic anticoagulation on eliquis, history of GI bleed secondary to antral gastritis, esophagitis, patient fall few days ago while she was getting i nto her house and landed on her right knee, she stated that she has been feeling light headed and weak , tried to hung on to her X-Uisband but when he let go she fell down without obvious injuries, she has also been getting severe pain in her neck due to severe spondylosis and have tried epidural injections X 4 the last one was in 07/12/[address]Hussein Pryor and she was referred to Brian Tejeda at [facility] and was supposed to go see him but she did not make it t her appointment, patient was brought into the ER by her son today with increased chest heaviness associated with increased shortness of breath, was seen in the ER and she underwent a battery of testing reflecting her multiple complaints, had right knee X-Ray and foot X-ray that showed evidence of osteoarthritis without any fracture, CXR was negative 12-Lead EKG showed normal sinus rhythm without acute ST, T waves changes, CTA of the chest was negative for PE, patient was found to have leukocytosis without evidence of infection and she was admitted to the hospital for evaluation and treatment. 08/30: Patient has been seen by cardiology. Troponins have been negative on 3 draws. Repeat CBC is unremarkable with a normal WBC of 9.9. Sodium 134, potassium 3.7, chloride 92, CO2 28, BUN 8 and creatinine 1. Blood sugars are in the high 200s. Triglycerides 210, cholesterol 134, LDL 60, HDL 32. She has been afebrile, heart rate 68, blood pressure 110/67, pulse ox 93-95% on room air. Echocardiogram reveals EF of 50-55%, mild mitral regurgitation, tricuspid regurgitation. Patient underwent Lexiscan Cardiolite which was negative for reversible ischemia. Patient will be discharged home today in stable condition. Discharge diagnoses: 1. Chest pain in patient with prior history of CAD post PCI. 2. Left knee pain with minimal bruising X-ray negative for fracture or dislocation. 3. Diabetes mellitus type 2, uncontrolled with hyperglycemia. 4. Coronary artery disease status post multiple PCI with ischemic cardiomyopathy. 4. Hypertension and hypertensive cardiovascular disease. 5. Chronic DVT and PEs. 6. Chronic tobacco use and dependence with COPD. 7. Hyperlipidemia. 8. Diabetic polyneuropathy. 9. Severe PAD. 10. Recurrent depression. Discharge plan: Return home. Impression and plan of care have been directed as dictated by the signing physician. Kerri Kevin nurse practitioner acting as scribe for signing physician. Patient Condition at Discharge: Good Plan - Discharge Summary Discharge Rx Participant: Yes New Discharge Prescriptions: Continue Gabapentin 800 mg PO BID Ergocalciferol [Vitamin D2 (DRISDOL)] 50,000 unit PO Q14D Insulin Lispro [humaLOG Kwikpen] See Protocol SQ AC-TID Rosuvastatin [Crestor] 10 mg PO HS #0 Insulin Glargine,Hum.rec.anlog [Lantus Solostar] 60 unit SQ HS Potassium Chloride [K-Tab ER] 10 meq PO AC-BID Furosemide [Lasix] 20 mg PO Q48H Apixaban [Eliquis] 5 mg PO BID #60 tab Aspirin [[employer] Aspirin EC] 81 mg PO DAILY HYDROcodone/APAP 10-325MG [[place] 10-325] 1 tab PO Q6H PRN PRN Reason: Pain Albuterol Inhaler [Ventolin Hfa Inhaler] 2 puff INHALATION RT-Q6H PRN PRN Reason: Shortness Of Breath DULoxetine HCL [Cymbalta] 30 mg PO DAILY Meclizine [Antivert] 12.5 mg PO DAILY Semaglutide [Rybelsus] 7 mg PO DAILY Ondansetron [Zofran ODT] 4 mg PO DAILY PRN PRN Reason: Nausea Discharge Medication List Gabapentin 800 mg PO BID 12/14/13 [History] Ergocalciferol [Vitamin D2 (DRISDOL)] 50,000 unit PO Q14D 08/26/15 [History] Insulin Lispro [humaLOG Kwikpen] See Protocol SQ AC-TID 08/26/15 [History] Rosuvastatin [Crestor] 10 mg PO HS #0 10/01/16 [Rx] Insulin Glargine,Hum.rec.anlog [Lantus Solostar] 60 unit SQ HS 01/18/17 [History] Potassium Chloride [K-Tab ER] 10 meq PO AC-BID 03/31/17 [History] Furosemide [Lasix] 20 mg PO Q48H 12/26/17 [History] Apixaban [Eliquis] 5 mg PO BID #60 tab 10/23/18 [Rx] Aspirin [[employer] Aspirin EC] 81 mg PO DAILY 09/07/19 [History] HYDROcodone/APAP 10-325MG [[place] 10-325] 1 tab PO Q6H PRN 10/13/19 [History] Albuterol Inhaler [Ventolin Hfa Inhaler] 2 puff INHALATION RT-Q6H PRN 08/29/20 [History] DULoxetine HCL [Cymbalta] 30 mg PO DAILY 08/29/20 [History] Meclizine [Antivert] 12.5 mg PO DAILY 08/29/20 [History] Ondansetron [Zofran ODT] 4 mg PO DAILY PRN 08/29/20 [History] Semaglutide [Rybelsus] 7 mg PO DAILY 08/29/20 [History] Follow up Appointment(s)/Referral(s): Tramaine Tejeda MD [Primary Care Provider] - 1 Week Deyvi Bill MD [STAFF PHYSICIAN] - 1 Week Patient Instructions/Handouts: Chest Pain (DC) Discharge Disposition: HOME SELF-CARE
[2020-08-30 13:45] VITALS: BP 115/69; PULSE 79; TEMP 98.1
--- NOTE | 2020-08-30 15:32 | EST ---
EXERCISE STRESS AGE: 60 SEX: Female HT: 5'7" WT: 213 lbs. PROTOCOL: Lexiscan Cardiolite STAGE: N/A DURATION OF EXERCISE: N/A HEART RATE REST: 72 BLOOD PRESSURE REST: 139/78 MAXIMUM HEART RATE ACHIEVED: 88 MAXIMUM BLOOD PRESSURE: 139/78 85% MPHR: 137 100% MPHR: 161 METS: N/A INDICATIONS: Chest pain CLINICAL INFORMATION: Baseline rhythm is a sinus mechanism, rate of 72, normal axis and intervals, normal electrocardiogram. Baseline blood pressure 139/78 mmHg. Patient received an injection of Lexiscan. Electrocardiograph monitoring revealed no evidence of diagnostic ischemic ST deviation. Cardiolite was injected per protocol. CONCLUSION: 1. Nondiagnostic electrocardiograph stress testing. 2. Nuclear images will be reported separately. MMODL / IJN: [id number] /
[2020-08-30] MEDS ORDERED: ATORVASTATIN 20 MG TAB PO SCH (21:00)
[2020-08-30] MEDS ORDERED: INSULIN DETEMIR (LEVEMIR) 100 UNIT/ML SYR SQ SCH (21:00)
[2020-09-11] MEDS ORDERED: ERGOCALCIFEROL 1,250 MCG (50,000 IU) CAPSULE PO SCH (09:00)
== END 2020-08-30 15:20 | disposition home or self-care (01) ==
LOC: EC 11:33 → 6NMEDSUR 16:31
PROVIDERS: ADMIT Internal Medicine; ATTEND Internal Medicine
DX: R07.89 Other chest pain (principal); R06.00 Dyspnea, unspecified; R06.02 Shortness of breath; D72.829 Elevated white blood cell count, unspecified; S80.02XA Contusion of left knee, initial encounter; E86.0 Dehydration; I25.10 Atherosclerotic heart disease of native coronary artery without angina pectoris; I11.9 Hypertensive heart disease without heart failure; J44.9 Chronic obstructive pulmonary disease, unspecified; F17.210 Nicotine dependence, cigarettes, uncomplicated; E78.5 Hyperlipidemia, unspecified; E11.42 Type 2 diabetes mellitus with diabetic polyneuropathy; I73.9 Peripheral vascular disease, unspecified; F33.9 Major depressive disorder, recurrent, unspecified; K21.9 Gastro-esophageal reflux disease without esophagitis; I25.2 Old myocardial infarction; M19.90 Unspecified osteoarthritis, unspecified site; Z20.828 Contact with and (suspected) exposure to other viral communicable diseases; Z86.718 Personal history of other venous thrombosis and embolism; Z86.711 Personal history of pulmonary embolism; G89.4 Chronic pain syndrome; M51.16 Intervertebral disc disorders with radiculopathy, lumbar region; K76.0 Fatty (change of) liver, not elsewhere classified; K08.109 Complete loss of teeth, unspecified cause, unspecified class; F41.9 Anxiety disorder, unspecified; M47.892 Other spondylosis, cervical region; M17.12 Unilateral primary osteoarthritis, left knee; M19.072 Primary osteoarthritis, left ankle and foot; I83.90 Asymptomatic varicose veins of unspecified lower extremity; E66.9 Obesity, unspecified; E11.65 Type 2 diabetes mellitus with hyperglycemia; I25.5 Ischemic cardiomyopathy; Z86.73 Personal history of transient ischemic attack (TIA), and cerebral infarction without residual deficits; Z91.81 History of falling; Z79.899 Other long term (current) drug therapy; Z79.4 Long term (current) use of insulin; Z79.82 Long term (current) use of aspirin; Z79.891 Long term (current) use of opiate analgesic; Z79.01 Long term (current) use of anticoagulants; Z88.1 Allergy status to other antibiotic agents; Z85.828 Personal history of other malignant neoplasm of skin; Z87.39 Personal history of other diseases of the musculoskeletal system and connective tissue; Z87.19 Personal history of other diseases of the digestive system; Z98.890 Other specified postprocedural states; Z90.49 Acquired absence of other specified parts of digestive tract; Z95.5 Presence of coronary angioplasty implant and graft; Z90.89 Acquired absence of other organs; Z98.51 Tubal ligation status; Z95.820 Peripheral vascular angioplasty status with implants and grafts; Z95.828 Presence of other vascular implants and grafts; Z89.411 Acquired absence of right great toe; Z87.898 Personal history of other specified conditions; Z68.33 Body mass index [BMI] 33.0-33.9, adult; Z71.6 Tobacco abuse counseling; Z87.09 Personal history of other diseases of the respiratory system; Z80.49 Family history of malignant neoplasm of other genital organs; Z82.49 Family history of ischemic heart disease and other diseases of the circulatory system; Z83.3 Family history of diabetes mellitus; W19.XXXA Unspecified fall, initial encounter; Y92.018 Other place in single-family (private) house as the place of occurrence of the external cause
CPT/HCPCS: 96361; 96374; 96375; 99285; 36415; 93005 ×2; 93017; 85379; 80061; 80053 ×2; 83605; 83735; 84484; 85025 ×2; 85610; 85730; 86140; 81003; 87635; 73590; 73562; 73630; 71046; 71275; 78452; G0378 ×2; C8929; A9500; J2405; J2270; J2785; Q9950; Q9967; 93306

== ENCOUNTER 2020-11-03 15:24 | Inpatient (IN) | payer MEDICARE, OTHER ==
[2020-11-03] MEDS ORDERED: SODIUM CHLORIDE 0.9% 1,000 ML IV STA (17:06)
[2020-11-03] MEDS ORDERED: MORPHINE SULFATE 4 MG/ML SYRINGE IV STA (17:06)
[2020-11-03] MEDS ORDERED: ONDANSETRON 4 MG/2 ML VIAL IVP STA (17:06)
[2020-11-03] MEDS ORDERED: FAMOTIDINE 20 MG/2 ML VIAL IV STA (17:09)
--- NOTE | 2020-11-03 17:10 | ED ---
General Adult HPI - General Source: patient, RN notes reviewed Mode of arrival: ambulatory Limitations: no limitations <Garrett Choe - Last Filed: 11/03/20 21:12> <Ale Silverio - Last Filed: 11/11/20 20:05> - General Chief complaint: Nausea/Vomiting/Diarrhea Stated complaint: NVD, Abd Pain Time Seen by Provider: 11/03/20 16:52 - History of Present Illness Initial comments: 60-year-old female with a comp dictated past medical history presents to the emergency room for a chief complaint of abdominal pain. Patient reports she has had left upper quadrant abdominal pain on and off for at least 6 months now. However today the pain is worse than normal which prompted her to come in. Patient also reports several episodes of vomiting daily as well as diarrhea for the past 5 or so days. States she usually gets this when she has episodes of abdominal pain. Patient states she did have an endoscopy and colonoscopy about a year ago he was told she had an ulcer. Repeat endoscopy did reveal that the ulcer had resolved. Patient denies fevers. She did have cervical spine surgery 2 weeks ago for a fusion. Patient has no other complaints at this time including shortness of breath, chest pain, headache, or visual changes. (Garrett Choe) - Related Data Home Medications Medication Instructions Recorded Confirmed Gabapentin 800 mg PO BID 12/14/13 11/03/20 Ergocalciferol [Vitamin D2 50,000 unit PO Q14D 08/26/15 11/03/20 (DRISDOL)] Insulin Lispro [humaLOG Kwikpen] See Protocol SQ AC-TID 08/26/15 11/03/20 Aspirin [Asotin Aspirin EC] 81 mg PO DAILY 09/07/19 11/03/20 HYDROcodone/APAP 10-325MG [Mims 1 tab PO Q4H PRN 10/13/19 11/03/20 10-325] DULoxetine HCL [Cymbalta] 30 mg PO DAILY 08/29/20 11/03/20 Meclizine [Antivert] 12.5 mg PO DAILY 08/29/20 11/03/20 Ondansetron [Zofran ODT] 4 mg PO DAILY PRN 08/29/20 11/03/20 Semaglutide [Rybelsus] 7 mg PO DAILY 08/29/20 11/03/20 tiZANidine HCL 2 mg PO Q8H PRN 11/03/20 11/03/20 Previous Rx's Medication Instructions Recorded Rosuvastatin [Crestor] 10 mg PO HS #0 10/01/16 Apixaban [Eliquis] 5 mg PO BID #60 tab 10/23/18 Albuterol Inhaler [Ventolin Hfa 2 puff INHALATION RT-QID PRN #1 11/09/20 Inhaler] inhaler Insulin Detemir (Levemir) [Levemir] 66 unit SQ HS syr 11/09/20 Pantoprazole Sodium [Protonix] 40 mg PO AC-BID #60 tablet. 11/09/20 Allergies Allergy/AdvReac Type Severity Reaction Status Date / Time vancomycin Allergy Rash/Hives/and Verified 11/03/20 18:21 vomiting diarrhea/Swelling Review of Systems ROS Other: All systems not noted in ROS Statement are negative. <Garrett Choe - Last Filed: 11/03/20 21:12> ROS Other: All systems not noted in ROS Statement are negative. <Ale Silverio - Last Filed: 11/11/20 20:05> ROS Statement: Those systems with pertinent positive or pertinent negative responses have been documented in the HPI. Past Medical History Past Medical History: Coronary Artery Disease (CAD), Cancer, Chest Pain / Angina, COPD, CVA/TIA, Diabetes Mellitus, Deep Vein Thrombosis (DVT), GERD/Reflux, Hyperlipidemia, Hypertension, Myocardial Infarction ([place]), Osteoarthritis (OA), Pulmonary Embolus (PE) Additional Past Medical History / Comment(s): SKIN CA. 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, NEUROPATHY LEGS & FEET, USING WALKER, .Mutiple DVT,mesentaric thrombosis x2 & PE, PAD, chronic pain syndrome, ddd lumbar region w/radiculopathy, HISTORY OF FALL 01/07/20 , tore rt rotator cuff, pancreatitis, fatty liver., Last Myocardial Infarction Date:: 2010 History of Any Multi-Drug Resistant Organisms: None Reported Past Surgical History: Section, Cholecystectomy, Heart Catheterization, Heart Catheterization With Stent, Orthopedic Surgery, Tonsillectomy, Tubal Ligation Additional Past Surgical History / Comment(s): 11 Stents in left leg, fistula left thigh, full mouth teeth extraction, TRAPEASE VENA CAVA FILTER, carpel tunnel, heart stents x4 rca and lad, tumor removal from uterus. Genital warts removed, INGRID. Skin cancer removed from neck, rt great toe amputated, colonoscopy Past Anesthesia/Blood Transfusion Reactions: No Reported Reaction, Motion Sickness Date of Last Stent Placement:: May 2016 Past Psychological History: Anxiety, Depression Smoking Status: Current some day smoker Past Alcohol Use History: None Reported Past Drug Use History: None Reported - Past Family History Mother Family Medical History: Cancer, Congestive Heart Failure (CHF), Diabetes Mellitus, Myocardial Infarction ([place]) Additional Family Medical History / Comment(s): UTERINE CANCER Father Family Medical History: Coronary Artery Disease (CAD), Myocardial Infarction ([place]) Additional Family Medical History / Comment(s): Father at age 70. Sister(s) Family Medical History: Myocardial Infarction ([place]) Additional Family Medical History / Comment(s): Patient has one sister with myocardial infarction at age 55. Son(s) Family Medical History: Deep Vein Thrombosis (DVT), Pulmonary Embolus Additional Family Medical History / Comment(s): Patient has 2 sons and one has history of DVT and pulmonary embolism. <Garrett Choe P - Last Filed: 11/03/20 21:12> General Exam Limitations: no limitations General appearance: alert, in no apparent distress Head exam: Present: atraumatic, normocephalic, normal inspection Eye exam: Present: normal appearance, PERRL, EOMI. Absent: scleral icterus, conjunctival injection, periorbital swelling ENT exam: Present: normal exam, mucous membranes moist Neck exam: Present: normal inspection. Absent: tenderness, meningismus, lymphadenopathy Respiratory exam: Present: normal lung sounds bilaterally. Absent: respiratory distress, wheezes, rales, rhonchi, stridor Cardiovascular Exam: Present: regular rate, normal rhythm, normal heart sounds. Absent: systolic murmur, diastolic murmur, rubs, gallop, clicks GI/Abdominal exam: Present: soft, tenderness (LUQ tenderness), normal bowel sounds. Absent: distended, guarding, rebound, rigid Neurological exam: Present: alert <Garrett Choe P - Last Filed: 11/03/20 21:12> Course Vital Signs 11/03/20 11/03/20 11/03/20 15:39 18:39 21:42 Temperature 96.7 F L 99.3 F Pulse Rate 103 H 85 90 Respiratory 20 16 17 Rate Blood Pressure 104/73 135/87 124/67 O2 Sat by Pulse 99 100 98 Oximetry 11/04/20 01:35 Temperature Pulse Rate 78 Respiratory 18 Rate Blood Pressure 133/80 O2 Sat by Pulse 98 Oximetry EKG Findings - EKG Comments: EKG Findings:: Sinus rhythm, ventricular rate 81, HI interval 160, QTC 497 <Garrett Choe - Last Filed: 11/03/20 21:12> Medical Decision Making - Lab Data Result diagrams: 11/03/20 17:00 11/03/20 17:00 <Garrett Choe - Last Filed: 11/03/20 21:12> - Lab Data Result diagrams: 11/07/20 06:02 11/07/20 06:02 <Ale Silverio - Last Filed: 11/11/20 20:05> - Medical Decision Making Vitals are stable. Patient is well-appearing. CBC shows mild leukocytosis. Patient is dehydrated with hemoconcentration. CMP does reveal hypokalemia. Patient also has hypomagnesemia. No EKG changes. Patient likely experiencing hypokalemia as she has been having nausea vomiting diarrhea and has a history of hypokalemia, has not been able to keep her potassium pills down. Patient was started on 40 by mouth potassium as well as 20 IV potassium. I did speak with Dr. Tejeda who requested I added another 40 IV and 40 by mouth. Patient is also having upper abdominal pain. CT shows no acute process. There is an incidental right hepatic lobe hypodensity. I did attempt 3 to get a urine however patient did not urinate enough the first time, could not urinate the second time, and then missed the hat the third time. This will be ordered for the next time patient urinates. Suspect upper abdominal pain could be related to gastritis. (Garrett Choe) I was available for consultation in the emergency department. The history and physical exam were done by the midlevel provider. I was consulted for this patients care. I reviewed the case with the midlevel provider and based on their presentation of the patient, I agree with the assessment, medical decision making and plan of care as documented. Chart was dictated using [employer] dictation software. Attempts were made to correct any dictation errors however some typographical errors may persist. Patient was seen during a national state of emergency due to the Covid-19 pandemic. (Ale Silverio) - Lab Data Lab Results 11/03/20 11/03/20 11/03/20 Range/Units 17:00 17:00 17:00 WBC 14.6 H (3.8-10.6) k/uL RBC 5.58 H (3.80-5.40) m/uL Hgb 16.4 H D (11.4-16.0) gm/dL Hct 47.3 H (34.0-46.0) % MCV 84.7 (80.0-100.0) fL MCH 29.4 (25.0-35.0) pg MCHC 34.7 (31.0-37.0) g/dL RDW 15.2 (11.5-15.5) % Plt Count 304 (150-450) k/uL MPV 7.7 Neutrophils % 75 % Lymphocytes % 16 % Monocytes % 6 % Eosinophils % 3 % Basophils % 1 % Neutrophils # 11.0 H (1.3-7.7) k/uL Lymphocytes # 2.3 (1.0-4.8) k/uL Monocytes # 0.8 (0-1.0) k/uL Eosinophils # 0.4 (0-0.7) k/uL Basophils # 0.1 (0-0.2) k/uL Poikilocytosis Slight Sodium 136 L (137-145) mmol/L Potassium 2.8 L (3.5-5.1) mmol/L Chloride 89 L (98-107) mmol/L Carbon Dioxide 33 H (22-30) mmol/L Anion Gap 14 mmol/L BUN 5 L (7-17) mg/dL Creatinine 1.02 (0.52-1.04) mg/dL Est GFR (CKD-EPI)AfAm 70 (>60 ml/min/1.73 sqM) Est GFR (CKD-EPI)NonAf 61 (>60 ml/min/1.73 sqM) Glucose 180 H (74-99) mg/dL POC Glucose (mg/dL) (75-99) mg/dL POC Glu Compound Coating Machine Offbearer ID Calcium 9.6 (8.4-10.2) mg/dL Magnesium (1.6-2.3) mg/dL Total Bilirubin 1.5 H (0.2-1.3) mg/dL AST 41 H (14-36) U/L ALT 35 H (4-34) U/L Alkaline Phosphatase 96 (38-126) U/L Total Protein 7.8 (6.3-8.2) g/dL Albumin 4.4 (3.5-5.0) g/dL Amylase 32 (30-110) U/L Lipase 111 (23-300) U/L Urine Color Urine Appearance (Clear) Urine pH (5.0-8.0) Ur Specific [place] (1.001-1.035) Urine Protein (Negative) Urine Glucose (UA) (Negative) Urine Ketones (Negative) Urine Blood (Negative) Urine Nitrite (Negative) Urine Bilirubin (Negative) Urine Urobilinogen (<2.0) mg/dL Ur Leukocyte Esterase (Negative) Coronavirus (PCR) Not Detected (Not Detectd) 11/03/20 11/03/20 11/04/20 Range/Units 17:00 21:41 06:14 WBC 9.5 (3.8-10.6) k/uL RBC 4.43 (3.80-5.40) m/uL Hgb 12.9 D (11.4-16.0) gm/dL Hct 38.2 (34.0-46.0) % MCV 86.3 (80.0-100.0) fL MCH 29.2 (25.0-35.0) pg MCHC 33.8 (31.0-37.0) g/dL RDW 15.3 (11.5-15.5) % Plt Count 201 (150-450) k/uL MPV 8.1 Neutrophils % 68 % Lymphocytes % 23 % Monocytes % 5 % Eosinophils % 3 % Basophils % 0 % Neutrophils # 6.5 (1.3-7.7) k/uL Lymphocytes # 2.2 (1.0-4.8) k/uL Monocytes # 0.5 (0-1.0) k/uL Eosinophils # 0.3 (0-0.7) k/uL Basophils # 0.0 (0-0.2) k/uL Poikilocytosis Slight Sodium (137-145) mmol/L Potassium (3.5-5.1) mmol/L Chloride (98-107) mmol/L Carbon Dioxide (22-30) mmol/L Anion Gap mmol/L BUN (7-17) mg/dL Creatinine (0.52-1.04) mg/dL Est GFR (CKD-EPI)AfAm (>60 ml/min/1.73 sqM) Est GFR (CKD-EPI)NonAf (>60 ml/min/1.73 sqM) Glucose (74-99) mg/dL POC Glucose (mg/dL) (75-99) mg/dL POC Glu Compound Coating Machine Offbearer ID Calcium (8.4-10.2) mg/dL Magnesium 1.5 L (1.6-2.3) mg/dL Total Bilirubin (0.2-1.3) mg/dL AST (14-36) U/L ALT (4-34) U/L Alkaline Phosphatase (38-126) U/L Total Protein (6.3-8.2) g/dL Albumin (3.5-5.0) g/dL Amylase (30-110) U/L Lipase (23-300) U/L Urine Color Yellow Urine Appearance Clear (Clear) Urine pH 6.0 (5.0-8.0) Ur Specific [place] 1.047 H (1.001-1.035) Urine Protein Trace H (Negative) Urine Glucose (UA) Trace H (Negative) Urine Ketones Negative (Negative) Urine Blood Negative (Negative) Urine Nitrite Negative (Negative) Urine Bilirubin Negative (Negative) Urine Urobilinogen <2.0 (<2.0) mg/dL Ur Leukocyte Esterase Negative (Negative) Coronavirus (PCR) (Not Detectd) 11/04/20 11/04/20 11/04/20 Range/Units 06:14 07:56 12:23 WBC (3.8-10.6) k/uL RBC (3.80-5.40) m/uL Hgb (11.4-16.0) gm/dL Hct (34.0-46.0) % MCV (80.0-100.0) fL MCH (25.0-35.0) pg MCHC (31.0-37.0) g/dL RDW (11.5-15.5) % Plt Count (150-450) k/uL MPV Neutrophils % % Lymphocytes % % Monocytes % % Eosinophils % % Basophils % % Neutrophils # (1.3-7.7) k/uL Lymphocytes # (1.0-4.8) k/uL Monocytes # (0-1.0) k/uL Eosinophils # (0-0.7) k/uL Basophils # (0-0.2) k/uL Poikilocytosis Sodium 133 L (137-145) mmol/L Potassium 3.1 L (3.5-5.1) mmol/L Chloride 92 L (98-107) mmol/L Carbon Dioxide 37 H (22-30) mmol/L Anion Gap 4 mmol/L BUN 5 L (7-17) mg/dL Creatinine 0.94 (0.52-1.04) mg/dL Est GFR (CKD-EPI)AfAm 77 (>60 ml/min/1.73 sqM) Est GFR (CKD-EPI)NonAf 67 (>60 ml/min/1.73 sqM) Glucose 214 H (74-99) mg/dL POC Glucose (mg/dL) 211 H 247 H (75-99) mg/dL POC Glu Compound Coating Machine Offbearer ID Chana Amos, Chana Calcium 8.2 L (8.4-10.2) mg/dL Magnesium 1.7 (1.6-2.3) mg/dL Total Bilirubin 1.3 (0.2-1.3) mg/dL AST 30 (14-36) U/L ALT 25 (4-34) U/L Alkaline Phosphatase 75 (38-126) U/L Total Protein 5.7 L (6.3-8.2) g/dL Albumin 3.0 L (3.5-5.0) g/dL Amylase (30-110) U/L Lipase (23-300) U/L Urine Color Urine Appearance (Clear) Urine pH (5.0-8.0) Ur Specific [place] (1.001-1.035) Urine Protein (Negative) Urine Glucose (UA) (Negative) Urine Ketones (Negative) Urine Blood (Negative) Urine Nitrite (Negative) Urine Bilirubin (Negative) Urine Urobilinogen (<2.0) mg/dL Ur Leukocyte Esterase (Negative) Coronavirus (PCR) (Not Detectd) Disposition Is patient prescribed a controlled substance at d/c from ED?: No Time of Disposition: 21:14 <Garrett Choe - Last Filed: 11/03/20 21:12> <Ale Silverio - Last Filed: 11/11/20 20:05> Clinical Impression: Abdominal pain, Nausea vomiting and diarrhea, Hypokalemia, Hypomagnesemia, History of cholecystectomy Disposition: ADMITTED IP TO THIS HOSP Condition: Good
[2020-11-03 17:16] LABS: Basophils # (A) 0.1 k/uL (0-0.2); Basophils % (A) 1 %; Eosinophils # (A) 0.4 k/uL (0-0.7); Eosinophils % (A) 3 %; HCT 47.3 % (34.0-46.0); Lymphocytes # (A) 2.3 k/uL (1.0-4.8); Lymphocytes % (A) 16 %; MCH 29.4 pg (25.0-35.0); MCHC 34.7 g/dL (31.0-37.0); MCV 84.7 fL (80.0-100.0); Mean Platelet Volume 7.7; Monocytes # (A) 0.8 k/uL (0-1.0); Monocytes % (A) 6 %; Neutrophils % (A) 75 %; Platelet Count 304 k/uL (150-450); Poikilocytosis Slight; RBC 5.58 m/uL (3.80-5.40); RDW 15.2 % (11.5-15.5); WBC 14.6 k/uL (3.8-10.6)
[2020-11-03 17:21] LABS: HGB 16.4 gm/dL (11.4-16.0)
[2020-11-03 17:26] LABS: Albumin 4.4 g/dL (3.5-5.0); Calcium 9.6 mg/dL (8.4-10.2); Potassium 2.8 mmol/L (3.5-5.1); Total Bilirubin 1.5 mg/dL (0.2-1.3); Total Protein 7.8 g/dL (6.3-8.2)
[2020-11-03] MEDS ORDERED: Potassium Replacement Protocol 1 EACH MISC MISCELLANE PRN (18:04)
[2020-11-03] MEDS ORDERED: POTASSIUM CHLORIDE ER 20 MEQ TAB.ER PO STA ×2 (18:07→21:02)
[2020-11-03] MEDS: POTASSIUM CHLORIDE 10 MEQ in WATER FOR INJECTION 1 100ML.BAG IVPB SCH ×2 (18:28→20:00)
[2020-11-03] MEDS ORDERED: POTASSIUM CHLORIDE 10 MEQ in WATER FOR INJECTION 1 100ML.BAG IVPB SCH (19:00)
[2020-11-03] MEDS ORDERED: POTASSIUM CHLORIDE ER 20 MEQ TAB.ER PO SCH (19:00)
--- NOTE | 2020-11-03 19:28 | CT ---
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 TECHNIQUE: Helical acquisition of images was performed from the lung bases through the pelvis. CONTRAST: Performed without Oral Contrast and with IV Contrast, patient injected with 80 mL of Isovue 300. FINDINGS: LUNG BASES: No acute findings. Coronary calcifications noted. LIVER/GB: There is an incidental finding, a 2 cm hypodensity in segment 7, not seen on the prior CT. Would suggest follow-up nonemergent MRI characterization. PANCREAS: No significant abnormality is seen. SPLEEN: No significant abnormality is seen. ADRENALS: The previously seen 2 cm right adrenal hypodense nodule is unchanged, likely benign adrenal adenoma. KIDNEYS: No significant abnormality is seen. PERITONEAL CAVITY: No peritoneal fluid or pneumoperitoneum. RETROPERITONEAL ADENOPATHY: None visualized REPRODUCTIVE ORGANS: No significant abnormality is seen URINARY BLADDER: No significant abnormality is seen. PELVIC ADENOPATHY: None visualized. OSSEOUS STRUCTURES: No significant abnormality is seen. BOWEL: No significant abnormality is seen. VASCULATURE: No acute findings. IVC filter redemonstrated. IMPRESSION: 1. NO ACUTE CT PROCESS. 2. INCIDENTAL 2 CM LOWER RIGHT HEPATIC LOBE HYPODENSITY, ABOVE.
[2020-11-03] MEDS ORDERED: MAGNESIUM SULFATE-D5W PMX 1 GM in DEXTROSE/WATER 1 100ML.BAG IVPB STA ×2 (20:22→21:03)
[2020-11-03] MEDS ORDERED: POTASSIUM CHLORIDE 10 MEQ in WATER FOR INJECTION 1 100ML.BAG IVPB STA (21:02)
[2020-11-03] MEDS ORDERED: NALOXONE 0.4 MG/ML 1 ML VIAL IV PRN (21:15)
[2020-11-03] MEDS: SODIUM CHLORIDE 0.9% 1,000 ML IV SCH (21:35)
[2020-11-03] MEDS: MORPHINE SULFATE 4 MG/ML SYRINGE IV PRN (21:38)
[2020-11-03 22:46] LABS: Appearance,Urine Clear (Clear); Bilirubin,Urine Negative (Negative); Blood,Urine Negative (Negative); Color,Urine Yellow; Glucose,Urine (UA) Trace (Negative); Ketones,Urine Negative (Negative); Leukocyte Esterase,Urine Negative (Negative); Nitrite,Urine Negative (Negative); Protein,Urine Trace (Negative); Urobilinogen,Urine <2.0 mg/dL (<2.0)
[2020-11-03 22:47] LABS: Specific Gravity,Urine 1.047 (1.001-1.035)
[2020-11-04] MEDS: POTASSIUM CHLORIDE 10 MEQ in WATER FOR INJECTION 1 100ML.BAG IVPB SCH ×4 (00:37→04:05)
[2020-11-04] MEDS: MORPHINE SULFATE 4 MG/ML SYRINGE IV PRN ×5 (01:34→21:08)
[2020-11-04 07:10] LABS: Basophils % (A) 0 %; Eosinophils # (A) 0.3 k/uL (0-0.7); Eosinophils % (A) 3 %; HCT 38.2 % (34.0-46.0); Lymphocytes # (A) 2.2 k/uL (1.0-4.8); Lymphocytes % (A) 23 %; MCH 29.2 pg (25.0-35.0); MCHC 33.8 g/dL (31.0-37.0); MCV 86.3 fL (80.0-100.0); Mean Platelet Volume 8.1; Monocytes # (A) 0.5 k/uL (0-1.0); Monocytes % (A) 5 %; Neutrophils # (A) 6.5 k/uL (1.3-7.7); Neutrophils % (A) 68 %; Platelet Count 201 k/uL (150-450); Poikilocytosis Slight; RBC 4.43 m/uL (3.80-5.40); RDW 15.3 % (11.5-15.5); WBC 9.5 k/uL (3.8-10.6)
[2020-11-04 07:33] LABS: Calcium 8.2 mg/dL (8.4-10.2); Magnesium 1.7 mg/dL (1.6-2.3); Potassium 3.1 mmol/L (3.5-5.1); Total Bilirubin 1.3 mg/dL (0.2-1.3); Total Protein 5.7 g/dL (6.3-8.2)
[2020-11-04 07:40] LABS: HGB 12.9 gm/dL (11.4-16.0)
[2020-11-04] MEDS ORDERED: Magnesium Replacement Protocol 1 EACH MISC MISCELLANE PRN (07:41)
[2020-11-04] MEDS ORDERED: tiZANidine 4 MG TAB PO PRN (07:44)
[2020-11-04] MEDS ORDERED: ONDANSETRON ODT 4 MG TAB PO PRN (07:44)
[2020-11-04] MEDS: PANTOPRAZOLE 40 MG/10 ML VIAL IV SCH (07:45)
[2020-11-04] MEDS: ONDANSETRON 4 MG/2 ML VIAL IVP PRN ×2 (07:53→16:35)
[2020-11-04 07:59] LABS: Glucose,Whole Blood 211 mg/dL (75-99)
[2020-11-04] MEDS: MAGNESIUM SULFATE-D5W PMX 1 GM in DEXTROSE/WATER 1 100ML.BAG IVPB SCH ×2 (08:41→09:56)
[2020-11-04] MEDS: APIXABAN 5 MG TAB PO SCH ×2 (08:43→21:03)
[2020-11-04] MEDS: POTASSIUM CHLORIDE ER 20 MEQ TAB.ER PO SCH ×2 (08:43→09:57)
[2020-11-04] MEDS: ASPIRIN 81 MG PO SCH (08:43)
[2020-11-04] MEDS: GABAPENTIN 400 MG CAP PO SCH ×2 (08:43→21:03)
[2020-11-04] MEDS: Semaglutide [Rybelsus] PO SCH (08:44)
[2020-11-04] MEDS: DULoxetine HCL 30 MG CAPSULE.DR PO SCH (08:44)
[2020-11-04] MEDS: MECLIZINE 12.5 MG TAB PO SCH (08:44)
[2020-11-04] MEDS: SODIUM CHLORIDE 0.9% 1,000 ML IV SCH ×2 (09:59→17:11)
--- NOTE | 2020-11-04 12:20 | P.HPIM ---
History of Present Illness H&P Date: 11/04/20 HISTORY OF PRESENT ILLNESS This is a 60-year-old female patient of [facility] and Dr. Bill with history of CAD with multiple cardiac stents in mid RCA, mid LAD, obtuse marginal branch and followed by Dr. Bill closely, normal stress test in August 2018, peripheral artery disease with previous stenting done as well has amputation of the right great toe secondary to osteomyelitis, CVA with no residual deficits, hypertension, COPD, diabetes mellitus type 2, previous multiple DVT and PE requiring chronic anticoagulation on eliquis, history of GI bleed secondary to antral gastritis, esophagitis. 2 weeks ago, patient underwent anterior approach cervical disc fusion, patient was discharged home 2 days following surgery and apparently she also had low potassium on the hospital. Patient complains of vomiting for the past week as well as diarrhea. She has no appetite and not been able to eat any food. She has a hard c-collar in place which is to be maintained and her follow-up appointment is on December 07. She complains of left upper quadrant sharp type pain. Patient presented to [facility] emergency center for evaluation. Patient was afebrile, heart rate 103, blood pressure 105/73, pulse ox 99% on room air. WBC 14.6, hemoglobin 16.4. Platelet count 304. Sodium 136, potassium 2.8, chloride 89, CO2 33, BUN 5 and creatinine 1.02. Blood sugar was 180. Magnesium 1.5. Total bilirubin 1.5, AST 41, ALT 35, alkaline phosphatase 96. Lipase 111. EKG revealed a sinus rhythm without acute ST changes.CAT scan of the abdomen and pelvis with contrast revealed no acute process. Incidental 2 cm lower right hepatic lobe hypodensity. Patient is status post potassium and magnesium replacement. Repeat blood work reveals sodium 133, potassium 3.1, chloride 92, CO2 37, BUN 5 and creatinine 0.94. Blood sugar 214. Magnesium 1.7. REVIEW OF SYSTEMS Constitutional: No fever, no chills, no night sweats. No weight change. No weakness, fatigue or lethargy. No daytime sleepiness. EENT: No headache. No dizziness. Reports difficulty swallowing. No nasal drainage or congestion. No epistaxis. No sore throat. Lungs: No shortness of breath, cough, no sputum production. No wheezing. Cardiovascular: No chest pain, no lower extremity edema. No palpitations. No paroxysmal nocturnal dyspnea. No orthopnea. No lightheadedness or dizziness. No syncopal episodes. Abdominal: Reports abdominal pain. Reports nausea, reports vomiting. Reports diarrhea. No constipation. No bloody or tarry stools. Reports loss of appetite. Genitourinary: No dysuria, increased frequency, urgency. No urinary retention. Musculoskeletal: No myalgias. No muscle weakness, no gait dysfunction, no frequent falls. No back pain. No neck pain. Integumentary: No wounds, no lesions. No rash or pruritus. No unusual bruising. No change in hair or nails. Neurologic: No aphasia. No facial droop. No change in mentation. No head injury. No headache. No paralysis. No paresthesia. Psychiatric: No depression. No anxiety. No mood swings. Endocrine: No abnormal blood sugars. No weight change. No excessive sweating or thirst. No cold intolerance. SURGICAL HISTORY Cholecystectomy, tonsillectomy, tubal ligation, , 11 stents in the left leg, full teeth extraction, trapeze vena cava filter, carpal tunnel release, coronary artery stents 4 to the RCA and LAD, tumor removed from the uterus, T EE, skin cancer from the neck, right great toe amputation, colonoscopy and EGD, I&D right groin abscess, anterior approach cervical disc fusion. SOCIAL HISTORY Patient is a smoker of about half a pack per day since 1993 and quit prior to her cervical surgery. No alcohol use, illicit drug use. Patient lives at home with her . FAMILY HISTORY Mother has history of uterine cancer, diabetes, myocardial infarction, heart failure. Father at age 70 from myocardial infarction. Patient has one sister and she had a myocardial infarction at age 55. Patient has 2 sons and one has history of DVT and pulmonary embolism.. PHYSICAL EXAMINATION Gen: This is a 60-year-old female. She is resting in bed and appears to be comfortable and in no acute distress. HEENT: Head is atraumatic, normocephalic. Pupils equal, round. Sclerae is anicteric. Mucous members of the mouth are somewhat dry. Heart cervical collar in place. NECK: Supple. No JVD. No lymphadenopathy. No thyromegaly. LUNGS: Clear to auscultation. No wheezes or rhonchi. No intercostal retractions. 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 ABDOMEN: Soft. Bowel sounds are present. No masses. Left upper quadrant tenderness. EXTREMITIES: No pedal edema. No calf tenderness. Dorsalis pedis +1 bilaterally. NEUROLOGICAL: Patient is awake, alert and oriented x3. Cranial nerves 2 through 12 are grossly intact. Muscle power 3/5 in the left upper extremity, 4/5 in the right upper extremity, 4/5 in the bilateral lower extremities. DTRs are depressed bilaterally. Neuropathic changes in both feet. ASSESSMENT AND PLAN 1. Abdominal pain and nausea and vomiting, diarrhea secondary to gastroenteritis. Continue IV fluids 100 mL per hour. Collect stool specimen for C. difficile toxin. 2. Electrolyte abnormalities with hypokalemia, hypomagnesemia. Continue replacements. Repeat blood work this afternoon and again in the morning. 3. Diabetes mellitus type 2, uncontrolled with hyperglycemia. Continue Levemir 70 units at bedtime, NovoLog scale before meals and at bedtime. 4. Coronary artery disease status post multiple PCI with ischemic cardiomyopathy. Hold Lasix 20 mg every 48 hours for now, continue aspirin 81 mg daily and Lipitor 40 mg orally daily. 4. Hypertension and hypertensive cardiovascular disease. Hold Lasix. Patient w as taken off BB and RISHI-I due to hypotension and increased falling. 5. Chronic DVT and PEs. Continue Eliquis 5 mg orally bid for life. 6. Chronic tobacco use and dependence with COPD. Smoking cessation and counseling. 7. Hyperlipidemia. Continue Lipitor 40 mg po daily. 8. Diabetic polyneuropathy. Continue gabapentin 800 mg 3 times daily . 9. Severe PAD. Continue aspirin 81 mg orally daily and Lipitor 40 mg orally daily with increased walking exercise, has been under the care of . 10. Recurrent depression. Continue Cymbalta 30 mg daily. 11. GI prophylaxis. we will continue with Protonix 40 mg IV daily, 12. DVT prophylaxis. we will continue with Eliquis 5 mg orally bid. Patient will be admitted to the hospital for a minimum of 2 night stay. DISCHARGE PLAN Home on Saturday. Impression and plan of care have been directed as dictated by the signing physician. Kerri Kevin nurse practitioner acting as scribe for signing physician. Past Medical History Past Medical History: Coronary Artery Disease (CAD), Cancer, Chest Pain / Angina, COPD, CVA/TIA, Diabetes Mellitus, Deep Vein Thrombosis (DVT), GERD/Reflux, Hyperlipidemia, Hypertension, Myocardial Infarction ([place]), Osteoarthritis (OA), Pulmonary Embolus (PE) Additional Past Medical History / Comment(s): SKIN CA. 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, NEUROPATHY LEGS & FEET, USING WALKER, .Mutiple DVT,mesentaric thrombosis x2 & PE, PAD, chronic pain syndrome, ddd lumbar region w/radiculop athy, HISTORY OF FALL 01/07/20 , tore rt rotator cuff, pancreatitis, fatty liver., Last Myocardial Infarction Date:: 2010 History of Any Multi-Drug Resistant Organisms: None Reported Past Surgical History: Section, Cholecystectomy, Heart Catheterization, Heart Catheterization With Stent, Orthopedic Surgery, Tonsillectomy, Tubal Ligation Additional Past Surgical History / Comment(s): 11 Stents in left leg, fistula left thigh, full mouth teeth extraction, TRAPEASE VENA CAVA FILTER, carpel tunnel, heart stents x4 rca and lad, tumor removal from uterus. Genital warts removed, INGRID. Skin cancer removed from neck, rt great toe amputated, colonoscopy Past Anesthesia/Blood Transfusion Reactions: No Reported Reaction, Motion Sickness Date of Last Stent Placement:: May 2016 Past Psychological History: Anxiety, Depression Additional Psychological History / Comment(s): Depression r/t health issues. Smoking Status: Current some day smoker Past Alcohol Use History: None Reported Additional Past Alcohol Use History / Comment(s): STARTED SMOKING IN 1993 SMOKES 1/2 PPD Past Drug Use History: None Reported - Past Family History Mother Family Medical History: Cancer, Congestive Heart Failure (CHF), Diabetes Mellitus, Myocardial Infarction ([place]) Additional Family Medical History / Comment(s): UTERINE CANCER Father Family Medical History: Coronary Artery Disease (CAD), Myocardial Infarction ([place]) Additional Family Medical History / Comment(s): Father at age 70. Sister(s) Family Medical History: Myocardial Infarction ([place]) Additional Family Medical History / Comment(s): Patient has one sister with myocardial infarction at age 55. Son(s) Family Medical History: Deep Vein Thrombosis (DVT), Pulmonary Embolus Additional Family Medical History / Comment(s): Patient has 2 sons and one has history of DVT and pulmonary embolism. Medications and Allergies Home Medications Medication Instructions Recorded Confirmed Type Gabapentin 800 mg PO BID 12/14/13 11/03/20 History Ergocalciferol [Vitamin D2 50,000 unit PO Q14D 08/26/15 11/03/20 History (DRISDOL)] Insulin Lispro [humaLOG Kwikpen] See Protocol SQ AC-TID 08/26/15 11/03/20 History Rosuvastatin [Crestor] 10 mg PO HS #0 10/01/16 11/03/20 Rx Insulin Glargine,Hum.rec.anlog 70 unit SQ HS 01/18/17 11/03/20 History [Lantus Solostar] Furosemide [Lasix] 20 mg PO Q48H 12/26/17 11/03/20 History Apixaban [Eliquis] 5 mg PO BID #60 tab 10/23/18 11/03/20 Rx Aspirin [Christian Aspirin EC] 81 mg PO DAILY 09/07/19 11/03/20 History HYDROcodone/APAP 10-325MG [Graham 1 tab PO Q4H PRN 10/13/19 11/03/20 History 10-325] Albuterol Inhaler [Ventolin Hfa 2 puff INHALATION RT-QID PRN 08/29/20 11/03/20 History Inhaler] DULoxetine HCL [Cymbalta] 30 mg PO DAILY 08/29/20 11/03/20 History Meclizine [Antivert] 12.5 mg PO DAILY 08/29/20 11/03/20 History Ondansetron [Zofran ODT] 4 mg PO DAILY PRN 08/29/20 11/03/20 History Semaglutide [Rybelsus] 7 mg PO DAILY 08/29/20 11/03/20 History Omeprazole 20 mg PO DAILY 11/03/20 11/03/20 History tiZANidine HCL 2 mg PO Q8H PRN 11/03/20 11/03/20 History Allergies Allergy/AdvReac Type Severity Reaction Status Date / Time vancomycin Allergy Rash/Hives/and Verified 11/03/20 18:21 vomiting diarrhea/Swelling Physical Exam Vitals: Vital Signs Temp Pulse Pulse Resp BP BP Pulse Ox 11/04/20 02:00 98.9 F 77 16 129/77 98 11/04/20 01:35 78 18 133/80 98 11/03/20 21:42 90 17 124/67 98 11/03/20 18:39 99.3 F 85 16 135/87 100 11/03/20 15:39 96.7 F L 103 H 20 104/73 99 Intake and Output 11/03/20 11/04/20 11/04/20 22:59 06:59 14:59 Intake Total 1060 Balance 1060 Intake: Intake, IV Titration 700 Amount Potassium Chloride 10 meq 300 In Water For Injection 1 100ml.bag @ 100 mls/hr IVPB Q1HR AGNES Rx#: [id number] Sodium Chloride 0.9% 1, 400 000 ml @ 100 mls/hr IV . Q10H AGNES Rx#:[id number] Oral 360 Other: # Voids 1 Weight 97.522 kg 97.522 kg Results CBC & Chem 7: 11/04/20 06:14 11/04/20 06:14 Labs: Abnormal Lab Results - Last 24 Hours (Table) 11/03/20 11/03/20 11/03/20 Range/Units 17:00 17:00 17:00 WBC 14.6 H (3.8-10.6) k/uL RBC 5.58 H (3.80-5.40) m/uL Hgb 16.4 H D (11.4-16.0) gm/dL Hct 47.3 H (34.0-46.0) % Neutrophils # 11.0 H (1.3-7.7) k/uL Sodium 136 L (137-145) mmol/L Potassium 2.8 L (3.5-5.1) mmol/L Chloride 89 L (98-107) mmol/L Carbon Dioxide 33 H (22-30) mmol/L BUN 5 L (7-17) mg/dL Glucose 180 H (74-99) mg/dL Magnesium 1.5 L (1.6-2.3) mg/dL Total Bilirubin 1.5 H (0.2-1.3) mg/dL AST 41 H (14-36) U/L ALT 35 H (4-34) U/L Ur Specific Stanton (1.001-1.035) Urine Protein (Negative) Urine Glucose (UA) (Negative) 11/03/20 Range/Units 21:41 WBC (3.8-10.6) k/uL RBC (3.80-5.40) m/uL Hgb (11.4-16.0) gm/dL Hct (34.0-46.0) % Neutrophils # (1.3-7.7) k/uL Sodium (137-145) mmol/L Potassium (3.5-5.1) mmol/L Chloride (98-107) mmol/L Carbon Dioxide (22-30) mmol/L BUN (7-17) mg/dL Glucose (74-99) mg/dL Magnesium (1.6-2.3) mg/dL Total Bilirubin (0.2-1.3) mg/dL AST (14-36) U/L ALT (4-34) U/L Ur Specific Stanton 1.047 H (1.001-1.035) Urine Protein Trace H (Negative) Urine Glucose (UA) Trace H (Negative) Thrombosis Risk Factor Assmnt - Choose All That Apply Any of the Below Risk Factors Present?: Yes Each Factor Represents 1 point: Abnormal pulmonary function (COPD), Obesity (BMI >25) Each Risk Factor Represents 3 Points: History of DVT/PE Other congenital or acquired thrombophilia - If yes, enter type in comment: No Thrombosis Risk Factor Assessment Total Risk Factor Score: 5 Thrombosis Risk Factor Assessment Level: High Risk
[2020-11-04 12:25] LABS: Glucose,Whole Blood 247 mg/dL (75-99)
[2020-11-04] MEDS: INSULIN ASPART (NovoLOG) 100 UNIT/ML VIAL SQ SCH ×3 (12:35→21:04)
[2020-11-04 16:59] LABS: Magnesium 2.3 mg/dL (1.6-2.3); Potassium 3.7 mmol/L (3.5-5.1)
[2020-11-04] MEDS ORDERED: POTASSIUM CHLORIDE ER 20 MEQ TAB.ER PO STA (17:23)
[2020-11-04 18:03] LABS: Glucose,Whole Blood 220 mg/dL (75-99)
[2020-11-04 20:37] LABS: Glucose,Whole Blood 238 mg/dL (75-99)
[2020-11-04] MEDS: ATORVASTATIN 20 MG TAB PO SCH (21:03)
[2020-11-04] MEDS: INSULIN DETEMIR (LEVEMIR) 100 UNIT/ML SYR SQ SCH (21:04)
[2020-11-04] MEDS: HYDROcodone/APAP 10-325MG 1 EACH TAB PO PRN (22:17)
[2020-11-05] MEDS: MORPHINE SULFATE 4 MG/ML SYRINGE IV PRN ×3 (03:36→21:56)
[2020-11-05] MEDS: SODIUM CHLORIDE 0.9% 1,000 ML IV SCH ×3 (04:30→22:07)
[2020-11-05 07:16] LABS: Glucose,Whole Blood 106 mg/dL (75-99)
[2020-11-05] MEDS: INSULIN ASPART (NovoLOG) 100 UNIT/ML VIAL SQ SCH ×4 (08:58→21:39)
[2020-11-05] MEDS: HYDROcodone/APAP 10-325MG 1 EACH TAB PO PRN ×2 (09:03→19:25)
[2020-11-05] MEDS: ALBUTEROL HFA INHALER INHALATION PRN ×3 (09:08→19:24)
[2020-11-05 09:35] LABS: African American GFR (CKD) 81.1 (60.0-200.0); Anion Gap 4.8 mmol/L (4.00-12.00); BUN/Creat Ratio 5.56 Ratio (12.00-20.00); Calcium 9.2 mg/dL (8.7-10.3); Carbon Dioxide 33.2 mmol/L (21.6-31.8); Potassium 4.3 mmol/L (3.5-5.5)
[2020-11-05] MEDS: APIXABAN 5 MG TAB PO SCH ×2 (09:49→21:39)
[2020-11-05] MEDS: ASPIRIN 81 MG PO SCH (09:49)
[2020-11-05] MEDS: DULoxetine HCL 30 MG CAPSULE.DR PO SCH (09:49)
[2020-11-05] MEDS: GABAPENTIN 400 MG CAP PO SCH ×2 (09:50→21:39)
[2020-11-05] MEDS: MECLIZINE 12.5 MG TAB PO SCH (09:50)
--- NOTE | 2020-11-05 10:08 | P.PN ---
Subjective Progress Note Date: 11/05/20 This is a 60-year-old female patient of [facility] and Dr. Bill with history of CAD with multiple cardiac stents in mid RCA, mid LAD, obtuse marginal branch and followed by Dr. Bill closely, normal stress test in August 2018, peripheral artery disease with previous stenting done as well has amputation of the right great toe secondary to osteomyelitis, CVA with no residual deficits, hypertension, COPD, diabetes mellitus type 2, previous multiple DVT and PE requiring chronic anticoagulation on eliquis, history of GI bleed secondary to antral gastritis, esophagitis. 2 weeks ago, patient underwent anterior approach cervical disc fusion, patient was discharged home 2 days following surgery and apparently she also had low potassium on the hospital. Patient complains of vomiting for the past week as well as diarrhea. She has no appetite and not been able to eat any food. She has a hard c-collar in place which is to be maintained and her follow-up appointment is on December 07. She complains of left upper quadrant sharp type pain. Patient presented to [facility] emergency center for evaluation. Patient was afebrile, heart rate 103, blood pressure 105/73, pulse ox 99% on room air. WBC 14.6, hemoglobin 16.4. Platelet count 304. Sodium 136, potassium 2.8, chloride 89, CO2 33, BUN 5 and creatinine 1.02. Blood sugar was 180. Magnesium 1.5. Total bilirubin 1.5, AST 41, ALT 35, alkaline phosphatase 96. Lipase 111. EKG revealed a sinus rhythm without acute ST change s.CAT scan of the abdomen and pelvis with contrast revealed no acute process. Incidental 2 cm lower right hepatic lobe hypodensity. Patient is status post potassium and magnesium replacement. Repeat blood work reveals sodium 133, potassium 3.1, chloride 92, CO2 37, BUN 5 and creatinine 0.94. Blood sugar 214. Magnesium 1.7 11/05: Patient sitting up in bed in no apparent distress, she continues to be generally weak, she continues to be off balance, she is eating less, she has no chest pain or shortness breath, she has no abdominal pain, no further nausea or vomiting no diarrhea, she will be continued on IV fluids for another 24 hours, then she will be discharged home in the next 24 hours. REVIEW OF SYSTEMS Constitutional: No fever, no chills, no night sweats. No weight change. No weakness, fatigue or lethargy. No daytime sleepiness. EENT: No headache. No dizziness. Reports difficulty swallowing. No nasal drainage or congestion. No epistaxis. No sore throat. Lungs: No shortness of breath, cough, no sputum production. No wheezing. Cardiovascular: No chest pain, no lower extremity edema. No palpitations. No paroxysmal nocturnal dyspnea. No orthopnea. No lightheadedness or dizziness. No syncopal episodes. Abdominal: Reports abdominal pain. Reports nausea, reports vomiting. Reports diarrhea. No constipation. No bloody or tarry stools. Reports loss of appetite. Genitourinary: No dysuria, increased frequency, urgency. No urinary retention. Musculoskeletal: No myalgias. No muscle weakness, no gait dysfunction, no frequent falls. No back pain. No neck pain. Integumentary: No wounds, no lesions. No rash or pruritus. No unusual br uising. No change in hair or nails. Neurologic: No aphasia. No facial droop. No change in mentation. No head injury. No headache. No paralysis. No paresthesia. Psychiatric: No depression. No anxiety. No mood swings. Endocrine: No abnormal blood sugars. No weight change. No excessive sweating or thirst. No cold intolerance. PHYSICAL EXAMINATION Gen: This is a 60-year-old female. She is resting in bed and appears to be comfortable and in no acute distress. HEENT: Head is atraumatic, normocephalic. Pupils equal, round. Sclerae is anicteric. Mucous members of the mouth are somewhat dry. Heart cervical collar in place. NECK: Supple. No JVD. No lymphadenopathy. No thyromegaly. LUNGS: Clear to auscultation. No wheezes or rhonchi. No intercostal ret ractions. 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 ABDOMEN: Soft. Bowel sounds are present. No masses. Left upper quadrant tenderness. EXTREMITIES: No pedal edema. No calf tenderness. Dorsalis pedis +1 bilaterally. NEUROLOGICAL: Patient is awake, alert and oriented x3. Cranial nerves 2 through 12 are grossly intact. Muscle power 3/5 in the left upper extremity, 4/5 in the right upper extremity, 4/5 in the bilateral lower extremities. DTRs are depressed bilaterally. Neuropathic changes in both feet. ASSESSMENT AND PLAN 1. Abdominal pain and nausea and vomiting, diarrhea secondary to gastroenterit is. Continue IV fluids 100 mL per hour. Collect stool specimen for C. difficile toxin. 2. Electrolyte abnormalities with hypokalemia, hypomagnesemia. Continue replacements. Repeat blood work this afternoon and again in the morning. 3. Diabetes mellitus type 2, uncontrolled with hyperglycemia. Continue Levemir 70 units at bedtime, NovoLog scale before meals and at bedtime. 4. Coronary artery disease status post multiple PCI with ischemic cardiomyopathy. Hold Lasix 20 mg every 48 hours for now, continue aspirin 81 mg daily and Lipitor 40 mg orally daily. 4. Hypertension and hypertensive cardiovascular disease. Hold Lasix. Patient was taken off BB and RISHI-I due to hypotension and increased falling. 5. Chronic DVT and PEs. Continue Eliquis 5 mg orally bid for life. 6. Chronic tobacco use and dependence with COPD. Smoking cessation and counseling. 7. Hyperlipidemia. Continue Lipitor 40 mg po daily. 8. Diabetic polyneuropathy. Continue gabapentin 800 mg 3 times daily . 9. Severe PAD. Continue aspirin 81 mg orally daily and Lipitor 40 mg orally daily with increased walking exercise, has been under the care of . 10. Recurrent depression. Continue Cymbalta 30 mg daily. 11. GI prophylaxis. we will continue with Protonix 40 mg IV daily, 12. DVT prophylaxis. we will continue with Eliquis 5 mg orally bid. 13. Home tomorrow morning. Objective - Vital Signs Vital signs: Vital Signs Temp 98.2 F 11/05/20 05:36 Pulse 81 11/05/20 05:36 Resp 17 11/05/20 05:36 BP 109/69 11/05/20 05:36 Pulse Ox 98 11/05/20 05:36 Intake & Output 11/04/20 11/05/20 11/05/20 18:59 06:59 18:59 Intake Total 2670 Balance 2670 Intake: Intake, IV Titration 1200 Amount Magnesium Sulfate-D5w Pmx 200 1 gm In Dextrose/Water 1 100ml.bag @ 100 mls/hr IVPB Q1H AGNES Rx#: [id number] Sodium Chloride 0.9% 1, 1000 000 ml @ 100 mls/hr IV . Q10H AGNES Rx#:[id number] Oral 1470 Other: Voiding Method Toilet Toilet Toilet # Voids 3 2 - Labs CBC & Chem 7: 11/04/20 06:14 11/05/20 05:40 Labs: Abnormal Lab Results - Last 24 Hours (Table) 11/04/20 11/04/20 11/04/20 Range/Units 12:23 17:51 20:35 Carbon Dioxide (21.6-31.8) mmol/L BUN (9.0-27.0) mg/dL BUN/Creatinine Ratio (12.00-20.00) Ratio Glucose (70-110) mg/dL POC Glucose (mg/dL) 247 H 220 H 238 H (75-99) mg/dL 11/05/20 11/05/20 Range/Units 05:40 07:14 Carbon Dioxide 33.2 H (21.6-31.8) mmol/L BUN 5.0 L (9.0-27.0) mg/dL BUN/Creatinine Ratio 5.56 L (12.00-20.00) Ratio Glucose 126 H (70-110) mg/dL POC Glucose (mg/dL) 106 H (75-99) mg/dL
[2020-11-05] MEDS: Semaglutide [Rybelsus] PO SCH (10:13)
[2020-11-05] MEDS: PANTOPRAZOLE 40 MG/10 ML VIAL IV SCH (10:15)
[2020-11-05 13:00] LABS: Glucose,Whole Blood 160 mg/dL (75-99)
[2020-11-05 17:23] LABS: Glucose,Whole Blood 165 mg/dL (75-99)
[2020-11-05 20:18] LABS: Glucose,Whole Blood 202 mg/dL (75-99)
[2020-11-05] MEDS: ATORVASTATIN 20 MG TAB PO SCH (21:39)
[2020-11-05] MEDS: INSULIN DETEMIR (LEVEMIR) 100 UNIT/ML SYR SQ SCH (21:40)
[2020-11-06 07:17] LABS: Glucose,Whole Blood 111 mg/dL (75-99)
[2020-11-06] MEDS: MORPHINE SULFATE 4 MG/ML SYRINGE IV PRN (07:32)
[2020-11-06] MEDS: DULoxetine HCL 30 MG CAPSULE.DR PO SCH (07:34)
[2020-11-06] MEDS: ASPIRIN 81 MG PO SCH (07:34)
[2020-11-06] MEDS: PANTOPRAZOLE 40 MG/10 ML VIAL IV SCH (07:34)
[2020-11-06] MEDS: APIXABAN 5 MG TAB PO SCH ×2 (07:34→21:43)
[2020-11-06] MEDS: GABAPENTIN 400 MG CAP PO SCH ×2 (07:34→21:43)
[2020-11-06] MEDS: MECLIZINE 12.5 MG TAB PO SCH (07:34)
[2020-11-06] MEDS: INSULIN ASPART (NovoLOG) 100 UNIT/ML VIAL SQ SCH ×4 (07:35→21:43)
[2020-11-06] MEDS: Semaglutide [Rybelsus] PO SCH (07:35)
[2020-11-06] MEDS: ALBUTEROL HFA INHALER INHALATION PRN ×3 (08:11→16:13)
[2020-11-06 09:14] LABS: Basophils # (A) 0.03 X 10*3/uL (0.00-0.10); Basophils % (A) 0.4 %; Eosinophils % (A) 4.4 %; HCT 36.4 % (37.2-46.3); HGB 11.3 g/dL (12.0-15.0); Lymphocytes # (A) 1.47 X 10*3/uL (0.90-5.00); Lymphocytes % (A) 21.8 %; MCH 28.4 pg (27.0-32.0); MCV 91.5 fL (80.0-97.0); Mean Platelet Volume 11.6 fL (9.5-12.2); Monocytes # (A) 0.41 X 10*3/uL (0.20-1.00); Monocytes % (A) 6.1 %; Neutrophils # (A) 4.51 X 10*3/uL (1.80-7.70); Neutrophils % (A) 66.9 %; Platelet Count 153 X 10*3/uL (140-440); RBC 3.98 X 10*6/uL (4.10-5.20); RDW 15.2 % (11.5-14.5); WBC 6.75 X 10*3/uL (4.50-10.00)
--- NOTE | 2020-11-06 10:13 | P.PN ---
Subjective Progress Note Date: 11/06/20 This is a 60-year-old female patient of [facility] and Dr. Bill with history of CAD with multiple cardiac stents in mid RCA, mid LAD, obtuse marginal branch and followed by Dr. Bill closely, normal stress test in August 2018, peripheral artery disease with previous stenting done as well has amputation of the right great toe secondary to osteomyelitis, CVA with no residual deficits, hypertension, COPD, diabetes mellitus type 2, previous multiple DVT and PE requiring chronic anticoagulation on eliquis, history of GI bleed secondary to antral gastritis, esophagitis. 2 weeks ago, patient underwent anterior approach cervical disc fusion, patient was discharged home 2 days following surgery and apparently she also had low potassium on the hospital. Patient complains of vomiting for the past week as well as diarrhea. She has no appetite and not been able to eat any food. She has a hard c-collar in place which is to be maintained and her follow-up appointment is on December 07. She complains of left upper quadrant sharp type pain. Patient presented to [facility] emergency center for evaluation. Patient was afebrile, heart rate 103, blood pressure 105/73, pulse ox 99% on room air. WBC 14.6, hemoglobin 16.4. Platelet count 304. Sodium 136, potassium 2.8, chloride 89, CO2 33, BUN 5 and creatinine 1.02. Blood sugar was 180. Magnesium 1.5. Total bilirubin 1.5, AST 41, ALT 35, alkaline phosphatase 96. Lipase 111. EKG revealed a sinus rhythm without acute ST change s.CAT scan of the abdomen and pelvis with contrast revealed no acute process. Incidental 2 cm lower right hepatic lobe hypodensity. Patient is status post potassium and magnesium replacement. Repeat blood work reveals sodium 133, potassium 3.1, chloride 92, CO2 37, BUN 5 and creatinine 0.94. Blood sugar 214. Magnesium 1.7 /3: Patient sitting up in bed in no apparent distress, she continues to be generally weak, she continues to be off balance, she is eating less, she has no chest pain or shortness breath, she has no abdominal pain, no further nausea or vomiting no diarrhea, she will be continued on IV fluids for another 24 hours, then she will be discharged home in the next 24 hours. 4: Patient is laying down in bed she is feeling a bit weak today she denies any chest pain or shortness breath, she has a bit trouble with swallowing, she continues to wear her hard collar after her ACDF, she has no abdominal pain, nausea, vomiting, we'll discontinue IV fluid continue to advance her diet, continue to follow-up with physical therapy, likely home tomorrow morning. REVIEW OF SYSTEMS Constitutional: No fever, no chills, no night sweats. No weight change. No weakness, fatigue or lethargy. No daytime sleepiness. EENT: No headache. No dizziness. Reports difficulty swallowing. No nasal drainage or congestion. No epistaxis. No sore throat. Lungs: No shortness of breath, cough, no sputum production. No wheezing. Cardiovascular: No chest pain, no lower extremity edema. No palpitations. No paroxysmal nocturnal dyspnea. No orthopnea. No lightheadedness or dizziness. No syncopal episodes. Abdominal: Reports abdominal pain. Reports nausea, reports vomiting. Reports diarrhea. No constipation. No bloody or tarry stools. Reports loss of appetite. Genitourinary: No dysuria, increased frequency, urgency. No urinary retention. Musculoskeletal: No myalgias. No muscle weakness, no gait dysfunction, no frequent falls. No back pain. No neck pain. Integumentary: No wounds, no lesions. No rash or pruritus. No unusual bruising. No change in hair or nails. Neurologic: No aphasia. No facial droop. No change in mentation. No head injury. No headache. No paralysis. No paresthesia. Psychiatric: No depression. No anxiety. No mood swings. Endocrine: No abnormal blood sugars. No weight change. No excessive sweating or thirst. No cold intolerance. PHYSICAL EXAMINATION Gen: This is a 60-year-old female. She is resting in bed and appears to be comfortable and in no acute distress. HEENT: Head is atraumatic, normocephalic. Pupils equal, round. Sclerae is anicteric. Mucous members of the mouth are somewhat dry. Heart cervical collar in place. NECK: Supple. No JVD. No lymphadenopathy. No thyromegaly. LUNGS: Clear to auscultation. No wheezes or rhonchi. No intercostal retractions. 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 ABDOMEN: Soft. Bowel sounds are present. No masses. Left upper quadrant tenderness. EXTREMITIES: No pedal edema. No calf tenderness. Dorsalis pedis +1 bilaterally. NEUROLOGICAL: Patient is awake, alert and oriented x3. Cranial nerves 2 through 12 are grossly intact. Muscle power 3/5 in the left upper extremity, 4/5 in the right upper extremity, 4/5 in the bilateral lower extremities. DTRs are depressed bilaterally. Neuropathic changes in both feet. ASSESSMENT AND PLAN 1. Abdominal pain and nausea and vomiting, diarrhea secondary to gastroenteritis. Resolved, discontinue IV fluid. 2. Electrolyte abnormalities with hypokalemia, hypomagnesemia. resolved. 3. Diabetes mellitus type 2, uncontrolled with hyperglycemia. Continue Levemir 70 units at bedtime, NovoLog scale before meals and at bedtime. 4. Coronary artery disease status post multiple PCI with ischemic cardiomyopathy. Hold Lasix 20 mg every 48 hours for now, continue aspirin 81 mg daily and Lipitor 40 mg orally daily. 4. Hypertension and hypertensive cardiovascular disease. Hold Lasix. Patient was taken off BB and RISHI-I due to hypotension and increased falling. 5. Chronic DVT and PEs. Continue Eliquis 5 mg orally bid for life. 6. Chronic tobacco use and dependence with COPD. Smoking cessation and counseling. 7. Hyperlipidemia. Continue Lipitor 40 mg po daily. 8. Diabetic polyneuropathy. Continue gabapentin 800 mg 3 times daily . 9. Severe PAD. Continue aspirin 81 mg orally daily and Lipitor 40 mg orally daily with increased walking exercise, has been under the care of . 10. Recurrent depression. Continue Cymbalta 30 mg daily. 11. GI prophylaxis. we will continue with Protonix 40 mg IV daily, 12. DVT prophylaxis. we will continue with Eliquis 5 mg orally bid. 13. Home tomorrow morning. Objective - Vital Signs Vital signs: Vital Signs Temp 97.9 F 11/06/20 05:00 Pulse 75 11/06/20 05:00 Resp 20 11/06/20 05:00 BP 119/71 11/06/20 05:00 Pulse Ox 93 L 11/06/20 05:00 Intake & Output 11/05/20 11/06/20 11/06/20 18:59 06:59 18:59 Intake Total 1400 1100 Balance 1400 1100 Intake: Intake, IV Titration 800 900 Amount Sodium Chloride 0.9% 1, 800 900 000 ml @ 100 mls/hr IV . Q10H [facility] Rx#:[id number] Oral 600 200 Other: Voiding Method Toilet Toilet Toilet # Voids 2 1 - Labs CBC & Chem 7: 11/06/20 05:28 11/05/20 05:40 Labs: Abnormal Lab Results - Last 24 Hours (Table) 11/05/20 11/05/20 11/05/20 Range/Units 12:57 17:22 20:05 RBC (4.10-5.20) X 10*6/uL Hgb (12.0-15.0) g/dL Hct (37.2-46.3) % MCHC (32.0-37.0) g/dL RDW (11.5-14.5) % POC Glucose (mg/dL) 160 H 165 H 202 H (75-99) mg/dL 11/06/20 11/06/20 Range/Units 05:28 07:16 RBC 3.98 L (4.10-5.20) X 10*6/uL Hgb 11.3 L (12.0-15.0) g/dL Hct 36.4 L (37.2-46.3) % MCHC 31.0 L (32.0-37.0) g/dL RDW 15.2 H (11.5-14.5) % POC Glucose (mg/dL) 111 H (75-99) mg/dL
[2020-11-06 10:23] LABS: ALT 25 U/L (8-44); AST 24 U/L (13-35); African American GFR (CKD) 81.1 (60.0-200.0); Albumin/Globulin Ratio 1.72 (1.60-3.17); Alkaline Phosphatase 71 U/L (41-126); Blood Urea Nitrogen <5.0 mg/dL (9.0-27.0); Calcium 9.2 mg/dL (8.7-10.3); Carbon Dioxide 35.1 mmol/L (21.6-31.8); Chloride 103 mmol/L (96-109); Globulin 1.8 g/dL (1.6-3.3); Glucose 151 mg/dL (70-110); Potassium 4.3 mmol/L (3.5-5.5); Sodium 140 mmol/L (135-145); Total Bilirubin 0.9 mg/dL (0.2-1.2); Total Protein 4.9 g/dL (6.2-8.2)
[2020-11-06 11:11] LABS: Glucose,Whole Blood 131 mg/dL (75-99)
[2020-11-06] MEDS: HYDROcodone/APAP 10-325MG 1 EACH TAB PO PRN ×2 (15:18→21:46)
[2020-11-06] MEDS: SODIUM CHLORIDE 0.9% 1,000 ML IV SCH (16:40)
[2020-11-06 17:00] LABS: Glucose,Whole Blood 203 mg/dL (75-99)
[2020-11-06 21:42] LABS: Glucose,Whole Blood 229 mg/dL (75-99)
[2020-11-06] MEDS: INSULIN DETEMIR (LEVEMIR) 100 UNIT/ML SYR SQ SCH (21:43)
[2020-11-06] MEDS: ATORVASTATIN 20 MG TAB PO SCH (21:43)
[2020-11-07] MEDS: HYDROcodone/APAP 10-325MG 1 EACH TAB PO PRN ×4 (01:03→21:51)
[2020-11-07 07:11] LABS: Glucose,Whole Blood 93 mg/dL (75-99)
[2020-11-07] MEDS: ALBUTEROL HFA INHALER INHALATION PRN ×4 (07:22→21:26)
[2020-11-07] MEDS: MECLIZINE 12.5 MG TAB PO SCH (08:14)
[2020-11-07] MEDS: GABAPENTIN 400 MG CAP PO SCH ×2 (08:14→21:42)
[2020-11-07] MEDS: ASPIRIN 81 MG PO SCH (08:14)
[2020-11-07] MEDS: Semaglutide [Rybelsus] PO SCH (08:14)
[2020-11-07] MEDS: DULoxetine HCL 30 MG CAPSULE.DR PO SCH (08:14)
[2020-11-07] MEDS: APIXABAN 5 MG TAB PO SCH ×2 (08:14→21:42)
[2020-11-07] MEDS: PANTOPRAZOLE 40 MG/10 ML VIAL IV SCH (08:14)
[2020-11-07] MEDS: INSULIN ASPART (NovoLOG) 100 UNIT/ML VIAL SQ SCH ×4 (08:18→21:48)
[2020-11-07 08:51] LABS: Basophils # (A) 0.02 X 10*3/uL (0.00-0.10); Basophils % (A) 0.4 %; Eosinophils # (A) 0.31 X 10*3/uL (0.04-0.35); Eosinophils % (A) 5.4 %; HCT 37.4 % (37.2-46.3); HGB 11.8 g/dL (12.0-15.0); Lymphocytes # (A) 1.53 X 10*3/uL (0.90-5.00); Lymphocytes % (A) 26.9 %; MCH 28.4 pg (27.0-32.0); MCHC 31.6 g/dL (32.0-37.0); MCV 90.1 fL (80.0-97.0); Mean Platelet Volume 11.1 fL (9.5-12.2); Monocytes # (A) 0.36 X 10*3/uL (0.20-1.00); Monocytes % (A) 6.3 %; Neutrophils # (A) 3.45 X 10*3/uL (1.80-7.70); Neutrophils % (A) 60.6 %; Platelet Count 172 X 10*3/uL (140-440); RBC 4.15 X 10*6/uL (4.10-5.20); RDW 15.5 % (11.5-14.5); WBC 5.69 X 10*3/uL (4.50-10.00)
[2020-11-07 11:34] LABS: Glucose,Whole Blood 157 mg/dL (75-99)
[2020-11-07 12:04] LABS: ALT 20 U/L (8-44); AST 21 U/L (13-35); African American GFR (CKD) 93.5 (60.0-200.0); Albumin/Globulin Ratio 1.68 (1.60-3.17); Alkaline Phosphatase 75 U/L (41-126); Blood Urea Nitrogen <5.0 mg/dL (9.0-27.0); Calcium 9.4 mg/dL (8.7-10.3); Carbon Dioxide 32.9 mmol/L (21.6-31.8); Chloride 104 mmol/L (96-109); Globulin 1.9 g/dL (1.6-3.3); Glucose 123 mg/dL (70-110); Non-African American GFR(CKD) 80.7 (60.0-200.0); Potassium 3.9 mmol/L (3.5-5.5); Sodium 142 mmol/L (135-145); Total Bilirubin 0.9 mg/dL (0.3-1.2); Total Protein 5.1 g/dL (6.2-8.2)
[2020-11-07 17:31] LABS: Glucose,Whole Blood 150 mg/dL (75-99)
[2020-11-07] MEDS: MORPHINE SULFATE 4 MG/ML SYRINGE IV PRN (20:13)
[2020-11-07 20:14] LABS: Glucose,Whole Blood 199 mg/dL (75-99)
[2020-11-07] MEDS: INSULIN DETEMIR (LEVEMIR) 100 UNIT/ML SYR SQ SCH (21:42)
[2020-11-07] MEDS: ATORVASTATIN 20 MG TAB PO SCH (21:42)
[2020-11-08 07:12] LABS: Glucose,Whole Blood 106 mg/dL (75-99)
[2020-11-08] MEDS: INSULIN ASPART (NovoLOG) 100 UNIT/ML VIAL SQ SCH ×4 (07:22→20:47)
[2020-11-08] MEDS: GABAPENTIN 400 MG CAP PO SCH ×2 (08:34→19:37)
[2020-11-08] MEDS: PANTOPRAZOLE 40 MG/10 ML VIAL IV SCH (08:34)
[2020-11-08] MEDS: DULoxetine HCL 30 MG CAPSULE.DR PO SCH (08:34)
[2020-11-08] MEDS: ASPIRIN 81 MG PO SCH (08:34)
[2020-11-08] MEDS: MECLIZINE 12.5 MG TAB PO SCH (08:34)
[2020-11-08] MEDS: APIXABAN 5 MG TAB PO SCH ×2 (08:34→19:37)
[2020-11-08] MEDS: ALBUTEROL HFA INHALER INHALATION PRN ×3 (08:59→20:22)
[2020-11-08] MEDS: Semaglutide [Rybelsus] PO SCH (09:01)
[2020-11-08] MEDS: MORPHINE SULFATE 4 MG/ML SYRINGE IV PRN ×4 (09:01→23:16)
[2020-11-08 11:32] LABS: Glucose,Whole Blood 123 mg/dL (75-99)
--- NOTE | 2020-11-08 13:03 | P.PN ---
Subjective Progress Note Date: 11/07/20 This is a 60-year-old female patient of [facility] and Dr. Bill with history of CAD with multiple cardiac stents in mid RCA, mid LAD, obtuse marginal branch and followed by Dr. Bill closely, normal stress test in August 2018, peripheral artery disease with previous stenting done as well has amputation of the right great toe secondary to osteomyelitis, CVA with no residual deficits, hypertension, COPD, diabetes mellitus type 2, previous multiple DVT and PE requiring chronic anticoagulation on eliquis, history of GI bleed secondary to antral gastritis, esophagitis. 2 weeks ago, patient underwent anterior approach cervical disc fusion, patient was discharged home 2 days following surgery and apparently she also had low potassium on the hospital. Patient complains of vomiting for the past week as well as diarrhea. She has no appetite and not been able to eat any food. She has a hard c-collar in place which is to be maintained and her follow-up appointment is on December 07. She complains of left upper quadrant sharp type pain. Patient presented to [facility] emergency center for evaluation. Patient was afebrile, heart rate 103, blood pressure 105/73, pulse ox 99% on room air. WBC 14.6, hemoglobin 16.4. Platelet count 304. Sodium 136, potassium 2.8, chloride 89, CO2 33, BUN 5 and creatinine 1.02. Blood sugar was 180. Magnesium 1.5. Total bilirubin 1.5, AST 41, ALT 35, alkaline phosphatase 96. Lipase 111. EKG revealed a sinus rhythm without acute ST change s.CAT scan of the abdomen and pelvis with contrast revealed no acute process. Incidental 2 cm lower right hepatic lobe hypodensity. Patient is status post potassium and magnesium replacement. Repeat blood work reveals sodium 133, potassium 3.1, chloride 92, CO2 37, BUN 5 and creatinine 0.94. Blood sugar 214. Magnesium 1.7 /3: Patient sitting up in bed in no apparent distress, she continues to be generally weak, she continues to be off balance, she is eating less, she has no chest pain or shortness breath, she has no abdominal pain, no further nausea or vomiting no diarrhea, she will be continued on IV fluids for another 24 hours, then she will be discharged home in the next 24 hours. 4: Patient is laying down in bed she is feeling a bit weak today she denies any chest pain or shortness breath, she has a bit trouble with swallowing, she continues to wear her hard collar after her ACDF, she has no abdominal pain, nausea, vomiting, we'll discontinue IV fluid continue to advance her diet, continue to follow-up with physical therapy, likely home tomorrow morning. 11/07: Patient has been afebrile, heart rate 70, blood pressure 144/78, pulse ox 94% on room air. Blood sugars are running between 93 and 229. Patient is complaining of feeling shaky, having epigastric pain and she vomited x1 today. She feels a little shaky. Symptoms maybe related to normal blood sugars. Levemir will be decreased to 66 units at hs. PT to see patient today. Patient may require subacute rehab but she would prefer to go home. Consult added for Dr. Ortega as patient is complaining of epigastric pain, nausea and occasional vomiting. Lipase ordered. Plan to hold discharge until tomorrow. REVIEW OF SYSTEMS Constitutional: No fever, no chills, no night sweats. No weight change. No weakness, fatigue or lethargy. No daytime sleepiness. EENT: No headache. No dizziness. Reports difficulty swallowing. No nasal drainage or congestion. No epistaxis. No sore throat. Lungs: No shortness of breath, cough, no sputum production. No wheezing. Cardiovascular: No chest pain, no lower extremity edema. No palpitations. No paroxysmal nocturnal dyspnea. No orthopnea. No lightheadedness or dizziness. No syncopal episodes. Abdominal: Reports epigastric abdominal pain. Reports nausea, reports occasional vomiting. Reports diarrhea. No constipation. No bloody or tarry stools. Reports loss of appetite. Genitourinary: No dysuria, increased frequency, urgency. No urinary retention. Musculoskeletal: No myalgias. No muscle weakness, no gait dysfunction, no freq uent falls. No back pain. No neck pain. Integumentary: No wounds, no lesions. No rash or pruritus. No unusual bruising. No change in hair or nails. Neurologic: No aphasia. No facial droop. No change in mentation. No head injury. No headache. No paralysis. No paresthesia. Psychiatric: No depression. No anxiety. No mood swings. Endocrine: No abnormal blood sugars. No weight change. No excessive sweating or thirst. No cold intolerance. PHYSICAL EXAMINATION Gen: This is a 60-year-old female. She is resting in bed and appears to be comfortable and in no acute distress. HEENT: Head is atraumatic, normocephalic. Pupils equal, round. Sclerae is anicte nikkie. Mucous members of the mouth are somewhat dry. Heart cervical collar in place. NECK: Supple. No JVD. No lymphadenopathy. No thyromegaly. LUNGS: Clear to auscultation. No wheezes or rhonchi. No intercostal retractions. 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 ABDOMEN: Soft. Bowel sounds are present. No masses. Left upper quadrant tenderness. EXTREMITIES: No pedal edema. No calf tenderness. Dorsalis pedis +1 bilaterally. NEUROLOGICAL: Patient is awake, alert and oriented x3. Cranial nerves 2 through 12 are grossly intact. Muscle power 3/5 in the left upper extremity, 4/5 in the right upper extremity, 4/5 in the bilateral lower extremities. DTRs are depressed bilaterally. Neuropathic changes in both feet. ASSESSMENT AND PLAN 1. Abdominal pain and nausea and vomiting, diarrhea secondary to gastroenteritis. Resolved, discontinue IV fluid. 2. Electrolyte abnormalities with hypokalemia, hypomagnesemia. resolved. 3. Diabetes mellitus type 2, uncontrolled with hyperglycemia. Continue Levemir decreased to 66 units at bedtime, NovoLog scale before meals and at bedtime. 4. Coronary artery disease status post multiple PCI with ischemic cardiomyopathy. Hold Lasix 20 mg every 48 hours for now, continue aspirin 81 mg daily and Lipitor 40 mg orally daily. 4. Hypertension and hypertensive cardiovascular disease. Hold Lasix. Patient was taken off BB and RISHI-I due to hypotension and increased falling. 5. Chronic DVT and PEs. Continue Eliquis 5 mg orally bid for life. 6. Chronic tobacco use and dependence with COPD. Smoking cessation and coun seling. 7. Hyperlipidemia. Continue Lipitor 40 mg po daily. 8. Diabetic polyneuropathy. Continue gabapentin 800 mg 3 times daily . 9. Severe PAD. Continue aspirin 81 mg orally daily and Lipitor 40 mg orally daily with increased walking exercise, has been under the care of . 10. Recurrent depression. Continue Cymbalta 30 mg daily. 11. GI prophylaxis. we will continue with Protonix 40 mg IV daily, 12. DVT prophylaxis. we will continue with Eliquis 5 mg orally bid. 13. Epigastric pain, nausea and vomiting. Consult with Dr. Ortega. Lipase level. Home tomorrow morning. Impression and plan of care have been directed as dictated by the signing physician. Kerri Kevin nurse practitioner acting as scribe for signing physician. Objective - Vital Signs Vital signs: Vital Signs Temp 97.6 F 11/07/20 11:21 Pulse 76 11/07/20 11:21 Resp 18 11/07/20 11:21 BP 148/72 11/07/20 11:21 Pulse Ox 95 11/07/20 11:21 Intake & Output 11/06/20 11/07/20 11/07/20 18:59 06:59 18:59 Intake Total 100 Balance 100 Intake: Oral 100 Other: Voiding Method Toilet Toilet Toilet # Voids 1 1 - Labs CBC & Chem 7: 11/07/20 06:02 11/07/20 06:02 Labs: Abnormal Lab Results - Last 24 Hours (Table) 11/06/20 11/06/20 11/07/20 Range/Units 16:59 21:38 06:02 Hgb 11.8 L (12.0-15.0) g/dL MCHC 31.6 L (32.0-37.0) g/dL RDW 15.5 H (11.5-14.5) % Carbon Dioxide (21.6-31.8) mmol/L BUN (9.0-27.0) mg/dL Glucose (70-110) mg/dL POC Glucose (mg/dL) 203 H 229 H (75-99) mg/dL Total Protein (6.2-8.2) g/dL Albumin (3.80-4.90) g/dL 11/07/20 11/07/20 Range/Units 06:02 11:23 Hgb (12.0-15.0) g/dL MCHC (32.0-37.0) g/dL RDW (11.5-14.5) % Carbon Dioxide 32.9 H (21.6-31.8) mmol/L BUN <5.0 L (9.0-27.0) mg/dL Glucose 123 H (70-110) mg/dL POC Glucose (mg/dL) 157 H (75-99) mg/dL Total Protein 5.1 L (6.2-8.2) g/dL Albumin 3.20 L (3.80-4.90) g/dL
--- NOTE | 2020-11-08 13:06 | P.PN ---
Subjective Progress Note Date: 11/08/20 This is a 60-year-old female patient of [facility] and Dr. Bill with history of CAD with multiple cardiac stents in mid RCA, mid LAD, obtuse marginal branch and followed by Dr. Bill closely, normal stress test in August 2018, peripheral artery disease with previous stenting done as well has amputation of the right great toe secondary to osteomyelitis, CVA with no residual deficits, hypertension, COPD, diabetes mellitus type 2, previous multiple DVT and PE requiring chronic anticoagulation on eliquis, history of GI bleed secondary to antral gastritis, esophagitis. 2 weeks ago, patient underwent anterior approach cervical disc fusion, patient was discharged home 2 days following surgery and apparently she also had low potassium on the hospital. Patient complains of vomiting for the past week as well as diarrhea. She has no appetite and not been able to eat any food. She has a hard c-collar in place which is to be maintained and her follow-up appointment is on December 07. She complains of left upper quadrant sharp type pain. Patient presented to [facility] emergency center for evaluation. Patient was afebrile, heart rate 103, blood pressure 105/73, pulse ox 99% on room air. WBC 14.6, hemoglobin 16.4. Platelet count 304. Sodium 136, potassium 2.8, chloride 89, CO2 33, BUN 5 and creatinine 1.02. Blood sugar was 180. Magnesium 1.5. Total bilirubin 1.5, AST 41, ALT 35, alkaline phosphatase 96. Lipase 111. EKG revealed a sinus rhythm without acute ST change s.CAT scan of the abdomen and pelvis with contrast revealed no acute process. Incidental 2 cm lower right hepatic lobe hypodensity. Patient is status post potassium and magnesium replacement. Repeat blood work reveals sodium 133, potassium 3.1, chloride 92, CO2 37, BUN 5 and creatinine 0.94. Blood sugar 214. Magnesium 1.7 /3: Patient sitting up in bed in no apparent distress, she continues to be generally weak, she continues to be off balance, she is eating less, she has no chest pain or shortness breath, she has no abdominal pain, no further nausea or vomiting no diarrhea, she will be continued on IV fluids for another 24 hours, then she will be discharged home in the next 24 hours. 4: Patient is laying down in bed she is feeling a bit weak today she denies any chest pain or shortness breath, she has a bit trouble with swallowing, she continues to wear her hard collar after her ACDF, she has no abdominal pain, nausea, vomiting, we'll discontinue IV fluid continue to advance her diet, continue to follow-up with physical therapy, likely home tomorrow morning. 11/07: Patient has been afebrile, heart rate 70, blood pressure 144/78, pulse ox 94% on room air. Blood sugars are running between 93 and 229. Patient is complaining of feeling shaky, having epigastric pain and she vomited x1 today. She feels a little shaky. Symptoms maybe related to normal blood sugars. Levemir will be decreased to 66 units at hs. PT to see patient today. Patient may require subacute rehab but she would prefer to go home. Consult added for Dr. Ortega as patient is complaining of epigastric pain, nausea and occasional vomiting. Lipase ordered. Plan to hold discharge until tomorrow. 11/08: Patient states that she has been seen by Dr. Ortega. No plan for intervention at this time and we will plan for follow-up in the outpatient setting. Patient again states that she does not feel she can go home today. She has been evaluated by physical therapy with recommendations for home with [facility] care. She has been afebrile, heart rate 77, blood pressure 126/77, pulse ox 93% on room air. Lipase 60. Blood work from yesterday revealed hemoglobin 11.8 otherwise CBC unremarkable. BUN less than 5 and creatinine 0.8. CO2 32. Liver function tests normal. Blood sugars are running between 106 and 199. Plan to monitor patient overnight and discharged home tomorrow. REVIEW OF SYSTEMS Constitutional: No fever, no chills, no night sweats. No weight change. No we akness, fatigue or lethargy. No daytime sleepiness. EENT: No headache. No dizziness. Reports difficulty swallowing. No nasal drainage or congestion. No epistaxis. No sore throat. Lungs: No shortness of breath, cough, no sputum production. No wheezing. Cardiovascular: No chest pain, no lower extremity edema. No palpitations. No paroxysmal nocturnal dyspnea. No orthopnea. No lightheadedness or dizziness. No syncopal episodes. Abdominal: Reports epigastric abdominal pain. Reports nausea, reports occasional vomiting. Reports diarrhea. No constipation. No bloody or tarry stools. Reports loss of appetite. Genitourinary: No dysuria, increased frequency, urgency. No urinary retention. Musculoskeletal: No myalgias. No muscle weakness, no gait dysfunction, no frequent falls. No back pain. No neck pain. Integumentary: No wounds, no lesions. No rash or pruritus. No unusual bru ising. No change in hair or nails. Neurologic: No aphasia. No facial droop. No change in mentation. No head injury. No headache. No paralysis. No paresthesia. Psychiatric: No depression. No anxiety. No mood swings. Endocrine: No abnormal blood sugars. No weight change. No excessive sweating or thirst. No cold intolerance. PHYSICAL EXAMINATION Gen: This is a 60-year-old female. She is resting in bed and appears to be comfortable and in no acute distress. HEENT: Head is atraumatic, normocephalic. Pupils equal, round. Sclerae is anicteric. Mucous members of the mouth are somewhat dry. Heart cervical collar in place. NECK: Supple. No JVD. No lymphadenopathy. No thyromegaly. LUNGS: Clear to auscultation. No wheezes or rhonchi. No intercostal retr actions. 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 ABDOMEN: Soft. Bowel sounds are present. No masses. Left upper quadrant tenderness. EXTREMITIES: No pedal edema. No calf tenderness. Dorsalis pedis +1 bilaterally. NEUROLOGICAL: Patient is awake, alert and oriented x3. Cranial nerves 2 through 12 are grossly intact. Muscle power 3/5 in the left upper extremity, 4/5 in the right upper extremity, 4/5 in the bilateral lower extremities. DTRs are depressed bilaterally. Neuropathic changes in both feet. ASSESSMENT AND PLAN 1. Abdominal pain and nausea and vomiting, diarrhea secondary to gastroenteriti s. Resolved, discontinue IV fluid. 2. Electrolyte abnormalities with hypokalemia, hypomagnesemia. resolved. 3. Diabetes mellitus type 2, uncontrolled with hyperglycemia. Continue Levemir decreased to 66 units at bedtime, NovoLog scale before meals and at bedtime. 4. Coronary artery disease status post multiple PCI with ischemic cardiomyopathy. Hold Lasix 20 mg every 48 hours for now, continue aspirin 81 mg daily and Lipitor 40 mg orally daily. 4. Hypertension and hypertensive cardiovascular disease. Hold Lasix. Patient was taken off BB and RISHI-I due to hypotension and increased falling. 5. Chronic DVT and PEs. Continue Eliquis 5 mg orally bid for life. 6. Chronic tobacco use and dependence with COPD. Smoking cessation and counseling. 7. Hyperlipidemia. Continue Lipitor 40 mg po daily. 8. Diabetic polyneuropathy. Continue gabapentin 800 mg 3 times daily . 9. Severe PAD. Continue aspirin 81 mg orally daily and Lipitor 40 mg orally d aily with increased walking exercise, has been under the care of . 10. Recurrent depression. Continue Cymbalta 30 mg daily. 11. GI prophylaxis. we will continue with Protonix 40 mg IV daily, 12. DVT prophylaxis. we will continue with Eliquis 5 mg orally bid. 13. Epigastric pain, nausea and vomiting. Consult with Dr. Ortega. Home tomorrow morning. Impression and plan of care have been directed as dictated by the signing physician. Kerri Kevin nurse practitioner acting as scribe for signing physician. Objective - Vital Signs Vital signs: Vital Signs Temp 97.9 F 11/08/20 11:55 Pulse 77 11/08/20 11:55 Resp 17 11/08/20 11:55 BP 126/77 11/08/20 11:55 Pulse Ox 93 L 11/08/20 11:55 Intake & Output 11/07/20 11/08/20 11/08/20 18:59 06:59 18:59 Other: Voiding Method Toilet Toilet # Voids 1 1 - Labs CBC & Chem 7: 11/07/20 06:02 11/07/20 06:02 Labs: Abnormal Lab Results - Last 24 Hours (Table) 11/07/20 11/07/20 11/08/20 Range/Units 17:29 20:13 07:11 POC Glucose (mg/dL) 150 H 199 H 106 H (75-99) mg/dL 11/08/20 Range/Units 11:30 POC Glucose (mg/dL) 123 H (75-99) mg/dL
--- NOTE | 2020-11-08 13:21 | P.GSCN ---
History of Present Illness Consult date: 11/08/20 History of present illness: CHIEF COMPLAINT: Nausea vomiting and diarrhea HISTORY OF PRESENT ILLNESS: This is a 60-year-old female with a known past medical history of gastric ulcer, small hiatal hernia, esophagitis, coronary disease with cardiac stent, peripheral arterial disease with stents, CVA, COPD, diabetes mellitus, DVT and PE anticoagulated with Eliquis. She also has had recent cervical spine surgery about 2 weeks ago. Patient presented to the hospital with complaints of left-sided mid abdomen abdominal pain with nausea and vomiting. She also had been having diarrhea. She does report that her stool had been dark and maybe black. She denies any NSAID use. She was initially treated as a gastroenteritis. Surgical consult was placed regarding the epigastric abdominal pain with nausea and vomiting. Patient's last EGD was in January 2020 which had revealed antral gastritis. Patient's last episode of vomiting was on Saturday and last episode of diarrhea was Saturday. She had a computed tomography scan abdomen and pelvis which showed no acute changes. There was a 2 cm right hepatic lobe hypodensity. Patient denies any fever, chills or sweats. Denies any difficulty urinating. Patient seen and examined with Dr. reyes. PAST MEDICAL HISTORY: See list. PAST SURGICAL HISTORY: See list. MEDICATIONS: See list. ALLERGIES: See list. SOCIAL HISTORY: No illicit drug use. REVIEW OF SYSTEMS: CONSTITUTIONAL: Denies fever or chills. HEENT: Denies blurred vision, vision changes, or eye pain. Denies hemoptysis CARDIOVASCULAR: Denies chest pain or pressure. RESPIRATORY: No shortness of breath. GASTROINTESTINAL: See HPI for pertinent findings HEMATOLOGIC: Denies bleeding disorders. GENITOURINARY: Denies any blood in urine or increased urinary frequency. SKIN: Denies pruitis. Denies rash. PHYSICAL EXAM: VITAL SIGNS: Reviewed GENERAL: Well-developed in no acute distress. HEENT: No sclera icterus. Extraocular movements grossly intact. Moist buccal mucosa. Head is atraumatic, normocephalic. No nasal drainage. ABDOMEN: Soft. Nondistended. Mild epigastric tenderness and left mid abdomen tenderness NEUROLOGIC: Alert and oriented. Cranial nerves II through XII grossly intact. LABORATORY DATA: WBC 5.69 hemoglobin 11.8 creatinine less than 5.0 LFTs normal Lipase 60 Covid not detected IMAGING: computed tomography scan abdomen and pelvis which showed no acute changes. There was a 2 cm right hepatic lobe hypodensity. ASSESSMENT: 1. Epigastric abdominal pain 2. Nausea, vomiting and diarrhea 3. Prior history of peptic ulcer disease 4. History of antral gastritis 5. Recent cervical spine surgery PLAN: -We'll plan for EGD outpatient after patient has healed from her neck surgery -Continue supportive care -Continue Protonix Thank you for this consultation Physician Operations Representative note has been reviewed by physician. Signing provider agrees with the documented findings, assessment, and plan of care. Past Medical History Past Medical History: Coronary Artery Disease (CAD), Cancer, Chest Pain / Angina, COPD, CVA/TIA, Diabetes Mellitus, Deep Vein Thrombosis (DVT), GERD/Reflux, Hyperlipidemia, Hypertension, Myocardial Infarction (LA), Osteoarthritis (OA), Pulmonary Embolus (PE) Additional Past Medical History / Comment(s): SKIN CA. 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, NEUROPATHY LEGS & FEET, USING WALKER, .Mutiple DVT,mesentaric thrombo sis x2 & PE, PAD, chronic pain syndrome, ddd lumbar region w/radiculopathy, HISTORY OF FALL 01/07/20 , tore rt rotator cuff, pancreatitis, fatty liver., Last Myocardial Infarction Date:: 2010 History of Any Multi-Drug Resistant Organisms: None Reported Past Surgical History: Section, Cholecystectomy, Heart Catheterization, Heart Catheterization With Stent, Orthopedic Surgery, Tonsillectomy, Tubal Ligation Additional Past Surgical History / Comment(s): 11 Stents in left leg, fistula le ft thigh, full mouth teeth extraction, TRAPEASE VENA CAVA FILTER, carpel tunnel, heart stents x4 rca and lad, tumor removal from uterus. Genital warts removed, INGRID. Skin cancer removed from neck, rt great toe amputated, colonoscopy Past Anesthesia/Blood Transfusion Reactions: No Reported Reaction, Motion Sickness Date of Last Stent Placement:: May 2016 Past Psychological History: Anxiety, Depression Additional Psychological History / Comment(s): Depression r/t health issues. Smoking Status: Current some day smoker Past Alcohol Use History: None Reported Additional Past Alcohol Use History / Comment(s): STARTED SMOKING IN 1993 SMOKES 1/2 PPD Past Drug Use History: None Reported - Past Family History Mother Family Medical History: Cancer, Congestive Heart Failure (CHF), Diabetes Mellitus, Myocardial Infarction (LA) Additional Family Medical History / Comment(s): UTERINE CANCER Father Family Medical History: Coronary Artery Disease (CAD), Myocardial Infarction (LA) Additional Family Medical History / Comment(s): Father at age 70. Sister(s) Family Medical History: Myocardial Infarction ([place]) Additional Family Medical History / Comment(s): Patient has one sister with myocardial infarction at age 55. Son(s) Family Medical History: Deep Vein Thrombosis (DVT), Pulmonary Embolus Additional Family Medical History / Comment(s): Patient has 2 sons and one has history of DVT and pulmonary embolism. Medications and Allergies Home Medications Medication Instructions Recorded Confirmed Type Gabapentin 800 mg PO BID 12/14/13 11/03/20 History Ergocalciferol [Vitamin D2 50,000 unit PO Q14D 08/26/15 11/03/20 History (MELANIE)] Insulin Lispro [humaLOG Kwikpen] See Protocol SQ AC-TID 08/26/15 11/03/20 History Rosuvastatin [Crestor] 10 mg PO HS #0 10/01/16 11/03/20 Rx Insulin Glargine,Hum.rec.anlog 70 unit SQ HS 01/18/17 11/03/20 History [Lantus Solostar] Apixaban [Eliquis] 5 mg PO BID #60 tab 10/23/18 11/03/20 Rx Aspirin [[place] Aspirin EC] 81 mg PO DAILY 09/07/19 11/03/20 History HYDROcodone/APAP 10-325MG [[place] 1 tab PO Q4H PRN 10/13/19 11/03/20 History 10-325] Albuterol Inhaler [Ventolin Hfa 2 puff INHALATION RT-QID PRN 08/29/20 11/03/20 History Inhaler] DULoxetine HCL [Cymbalta] 30 mg PO DAILY 08/29/20 11/03/20 History Meclizine [Antivert] 12.5 mg PO DAILY 08/29/20 11/03/20 History Ondansetron [Zofran ODT] 4 mg PO DAILY PRN 08/29/20 11/03/20 History Semaglutide [Rybelsus] 7 mg PO DAILY 08/29/20 11/03/20 History Omeprazole 20 mg PO DAILY 11/03/20 11/03/20 History tiZANidine HCL 2 mg PO Q8H PRN 11/03/20 11/03/20 History Allergies Allergy/AdvReac Type Severity Reaction Status Date / Time vancomycin Allergy Rash/Hives/and Verified 11/03/20 18:21 vomiting diarrhea/Swelling Surgical - Exam Vital Signs Temp Pulse Resp BP Pulse Ox 96.7 F L 103 H 20 104/73 99 11/03/20 15:39 11/03/20 15:39 11/03/20 15:39 11/03/20 15:39 11/03/20 15:39 Results - Labs 11/07/20 06:02 11/07/20 06:02 Abnormal Lab Results - Last 24 Hours (Table) 11/07/20 11/07/20 11/08/20 Range/Units 17:29 20:13 07:11 POC Glucose (mg/dL) 150 H 199 H 106 H (75-99) mg/dL 11/08/20 Range/Units 11:30 POC Glucose (mg/dL) 123 H (75-99) mg/dL
[2020-11-08 17:07] LABS: Glucose,Whole Blood 175 mg/dL (75-99)
[2020-11-08] MEDS: ATORVASTATIN 20 MG TAB PO SCH (19:37)
[2020-11-08 20:02] VITALS: RESP 16
[2020-11-08 20:34] LABS: Glucose,Whole Blood 162 mg/dL (75-99)
[2020-11-08] MEDS: INSULIN DETEMIR (LEVEMIR) 100 UNIT/ML SYR SQ SCH (20:46)
[2020-11-09] MEDS: MORPHINE SULFATE 4 MG/ML SYRINGE IV PRN (04:36)
[2020-11-09 05:32] VITALS: BP 124/74; TEMP 98.7
[2020-11-09 07:06] LABS: Glucose,Whole Blood 87 mg/dL (75-99)
--- NOTE | 2020-11-09 07:34 | P.DS ---
Providers Date of admission: 11/04/20 12:34 Expected date of discharge: 11/09/20 Attending physician: Tramaine Tejeda Primary care physician: Tramaine Tejeda [facility] Course: This is a 60-year-old female patient of [facility] and Dr. Bill with history of CAD with multiple cardiac stents in mid RCA, mid LAD, obtuse marginal branch and followed by Dr. Bill closely, normal stress test in August 2018, peripheral artery disease with previous stenting done as well has amputation of the right great toe secondary to osteomyelitis, CVA with no residual deficits, hypertension, COPD, diabetes mellitus type 2, previous multiple DVT and PE requiring chronic anticoagulation on eliquis, history of GI bleed secondary to antral gastritis, esophagitis. 2 weeks ago, patient underwent anterior approach cervical disc fusion, patient was discharged home 2 days following surgery and apparently she also had low potassium on the hospital. Patient complains of vomiting for the past week as well as diarrhea. She has no appetite and not been able to eat any food. She has a hard c-collar in place which is to be maintained and her follow-up appointment is on December 07. She complains of left upper quadrant sharp type pain. Patient presented to [facility] emergency center for evaluation. Patient was afebrile, heart rate 103, blood pressure 105/73, pulse ox 99% on room air. WBC 14.6, hemoglobin 16.4. Platelet count 304. Sodium 1 36, potassium 2.8, chloride 89, CO2 33, BUN 5 and creatinine 1.02. Blood sugar was 180. Magnesium 1.5. Total bilirubin 1.5, AST 41, ALT 35, alkaline phosphatase 96. Lipase 111. EKG revealed a sinus rhythm without acute ST changes.CAT scan of the abdomen and pelvis with contrast revealed no acute process. Incidental 2 cm lower right hepatic lobe hypodensity. Patient is status post potassium and magnesium replacement. Repeat blood work reveals sodium 133, potassium 3.1, chloride 92, CO2 37, BUN 5 and creatinine 0.94. Blood sugar 214. Magnesium 1.7 11/05: Patient sitting up in bed in no apparent distress, she continues to be generally weak, she continues to be off balance, she is eating less, she has no chest pain or shortness breath, she has no abdominal pain, no further nausea or vomiting no diarrhea, she will be continued on IV fluids for another 24 hours, then she will be discharged home in the next 24 hours. 11/06: Patient is laying down in bed she is feeling a bit weak today she denies any chest pain or shortness breath, she has a bit trouble with swallowing, she continues to wear her hard collar after her ACDF, she has no abdominal pain, nausea, vomiting, we'll discontinue IV fluid continue to advance her diet, continue to follow-up with physical therapy, likely home tomorrow morning. 11/07: Patient has been afebrile, heart rate 70, blood pressure 144/78, pulse ox 94% on room air. Blood sugars are running between 93 and 229. Patient is complaining of feeling shaky, having epigastric pain and she vomited x1 today. She feels a little shaky. Symptoms maybe related to normal blood sugars. Levemir will be decreased to 66 units at hs. PT to see patient today. Patient may require subacute rehab but she would prefer to go home. Consult added for Dr. Ortega as patient is complaining of epigastric pain, nausea and occasional vomiting. Lipase ordered. Plan to hold discharge until tomorrow. 11/08: Patient states that she has been seen by Dr. Ortega. No plan for intervention at this time and we will plan for follow-up in the outpatient setting. Patient again states that she does not feel she can go home today. She has been evaluated by physical therapy with recommendations for home with home care. She has been afebrile, heart rate 77, blood pressure 126/77, pulse ox 93% on room air. Lipase 60. Blood work from yesterday revealed hemoglobin 11.8 otherwise CBC unremarkable. BUN less than 5 and creatinine 0.8. CO2 32. Liver function tests normal. Blood sugars are running between 106 and 199. Plan to monitor patient overnight and discharged home tomorrow. 11/09: She has been seen by general surgery with plan for outpatient EGD what she has healed from her neck surgery. She states she did have emesis yesterday afternoon and continues to have epigastric discomfort. Plan to continue Protonix for home. Patient has been afebrile, heart rate 76, blood pressure 124/74, pulse ox 95% on room air. Blood sugars are running between 87 and 175. Patient will be continued on lower dose of Lantus at home. Patient be discharged home today after seen Dr. Ortega in stable condition. ASSESSMENT AND PLAN 1. Abdominal pain and nausea and vomiting, diarrhea secondary to gastroenteritis. 2. Electrolyte abnormalities with hypokalemia, hypomagnesemia. 3. Diabetes mellitus type 2, uncontrolled with hyperglycemia. 4. Coronary artery disease status post multiple PCI with ischemic cardiomyopathy. 5. Hypertension and hypertensive cardiovascular disease. 6. Chronic DVT and PEs. 7. Chronic tobacco use and dependence with COPD. 8. Hyperlipidemia. 9. Diabetic polyneuropathy. 10. Severe PAD. 11. Recurrent depression. DISCHARGE PLAN Home Impression and plan of care have been directed as dictated by the signing physician. Kerri Kevin nurse practitioner acting as scribe for signing physician. Patient Condition at Discharge: Good Plan - Discharge Summary New Discharge Prescriptions: New Pantoprazole Sodium [Protonix] 40 mg PO AC-BID #60 tablet. Insulin Detemir (Levemir) [Levemir] 66 unit SQ HS syr Continue Gabapentin 800 mg PO BID Ergocalciferol [Vitamin D2 (DRISDOL)] 50,000 unit PO Q14D Insulin Lispro [humaLOG Kwikpen] See Protocol SQ AC-TID Rosuvastatin [Crestor] 10 mg PO HS #0 Apixaban [Eliquis] 5 mg PO BID #60 tab Aspirin [[place] Aspirin EC] 81 mg PO DAILY HYDROcodone/APAP 10-325MG [[place] 10-325] 1 tab PO Q4H PRN PRN Reason: Pain DULoxetine HCL [Cymbalta] 30 mg PO DAILY Meclizine [Antivert] 12.5 mg PO DAILY Semaglutide [Rybelsus] 7 mg PO DAILY Ondansetron [Zofran ODT] 4 mg PO DAILY PRN PRN Reason: Nausea tiZANidine HCL 2 mg PO Q8H PRN PRN Reason: Muscle Pain Albuterol Inhaler [Ventolin Hfa Inhaler] 2 puff INHALATION RT-QID PRN #1 inhaler PRN Reason: Shortness Of Breath Discontinued Insulin Glargine,Hum.rec.anlog [Lantus Solostar] 70 unit SQ HS Furosemide [Lasix] 20 mg PO Q48H Omeprazole 20 mg PO DAILY Discharge Medication List Gabapentin 800 mg PO BID 12/14/13 [History] Ergocalciferol [Vitamin D2 (DRISDOL)] 50,000 unit PO Q14D 08/26/15 [History] Insulin Lispro [humaLOG Kwikpen] See Protocol SQ AC-TID 08/26/15 [History] Rosuvastatin [Crestor] 10 mg PO HS #0 10/01/16 [Rx] Apixaban [Eliquis] 5 mg PO BID #60 tab 10/23/18 [Rx] Aspirin [[place] Aspirin EC] 81 mg PO DAILY 09/07/19 [History] HYDROcodone/APAP 10-325MG [[place] 10-325] 1 tab PO Q4H PRN 10/13/19 [History] DULoxetine HCL [Cymbalta] 30 mg PO DAILY 08/29/20 [History] Meclizine [Antivert] 12.5 mg PO DAILY 08/29/20 [History] Ondansetron [Zofran ODT] 4 mg PO DAILY PRN 08/29/20 [History] Semaglutide [Rybelsus] 7 mg PO DAILY 08/29/20 [History] tiZANidine HCL 2 mg PO Q8H PRN 11/03/20 [History] Albuterol Inhaler [Ventolin Hfa Inhaler] 2 puff INHALATION RT-QID PRN #1 inhaler 11/09/20 [Rx] Insulin Detemir (Levemir) [Levemir] 66 unit SQ HS syr 11/09/20 [Rx] Pantoprazole Sodium [Protonix] 40 mg PO AC-BID #60 tablet. 11/09/20 [Rx] Follow up Appointment(s)/Referral(s): [facility] [NON-STAFF] - (*Please contact [facility] to ask about getting a shower chair. ) Tramaine Tejeda MD [Primary Care Provider] - 11/15/20 11:15 am [facility], [NON-STAFF] - (This is [facility]'s phone number as patient requested. Home Care is not set up for patient per her request. If home care is wanted, contact Dr. Tejeda's office to set it up. ) [facility] [NON-STAFF] - (*Please contact [facility] to ask about getting a shower chair. ) Ricki Ortega MD [STAFF PHYSICIAN] - 11/17/20 1:45 pm Patient Instructions/Handouts: Hypokalemia (DC), Hypomagnesemia (DC) Discharge Disposition: HOME WITH HOME HEALTH SERVICES
[2020-11-09] MEDS: INSULIN ASPART (NovoLOG) 100 UNIT/ML VIAL SQ SCH (07:51)
[2020-11-09] MEDS: HYDROcodone/APAP 10-325MG 1 EACH TAB PO PRN ×2 (07:55→11:56)
[2020-11-09] MEDS: PANTOPRAZOLE 40 MG/10 ML VIAL IV SCH (07:55)
[2020-11-09] MEDS: Semaglutide [Rybelsus] PO SCH (07:56)
[2020-11-09] MEDS: ASPIRIN 81 MG PO SCH (07:56)
[2020-11-09] MEDS: GABAPENTIN 400 MG CAP PO SCH (07:56)
[2020-11-09] MEDS: DULoxetine HCL 30 MG CAPSULE.DR PO SCH (07:56)
[2020-11-09] MEDS: MECLIZINE 12.5 MG TAB PO SCH (07:56)
[2020-11-09] MEDS: APIXABAN 5 MG TAB PO SCH (07:56)
[2020-11-09] MEDS: ALBUTEROL HFA INHALER INHALATION PRN (08:24)
[2020-11-09 10:51] VITALS: PULSE 74
== END 2020-11-09 12:05 | disposition home or self-care (01) | DRG 392 ==
LOC: EC 15:24 → 6NMEDSUR 11-04 00:22 → 5NMEDONC 11-04 01:28 → OBSVTOIN 11-04 12:34
PROVIDERS: ADMIT Internal Medicine; ATTEND Internal Medicine
DX: K52.9 Noninfective gastroenteritis and colitis, unspecified (principal); I69.354 Hemiplegia and hemiparesis following cerebral infarction affecting left non-dominant side; F33.9 Major depressive disorder, recurrent, unspecified; E11.51 Type 2 diabetes mellitus with diabetic peripheral angiopathy without gangrene; E11.42 Type 2 diabetes mellitus with diabetic polyneuropathy; I95.9 Hypotension, unspecified; E11.65 Type 2 diabetes mellitus with hyperglycemia; J44.9 Chronic obstructive pulmonary disease, unspecified; Z79.4 Long term (current) use of insulin; Z89.411 Acquired absence of right great toe; Z20.822 Contact with and (suspected) exposure to COVID-19; I11.9 Hypertensive heart disease without heart failure; K76.0 Fatty (change of) liver, not elsewhere classified; K44.9 Diaphragmatic hernia without obstruction or gangrene; M19.90 Unspecified osteoarthritis, unspecified site; E86.0 Dehydration; E87.6 Hypokalemia; E83.42 Hypomagnesemia; I25.10 Atherosclerotic heart disease of native coronary artery without angina pectoris; K21.9 Gastro-esophageal reflux disease without esophagitis; G89.4 Chronic pain syndrome; M51.16 Intervertebral disc disorders with radiculopathy, lumbar region; I25.5 Ischemic cardiomyopathy; E78.5 Hyperlipidemia, unspecified; F41.9 Anxiety disorder, unspecified; I25.2 Old myocardial infarction; F17.211 Nicotine dependence, cigarettes, in remission; Z79.01 Long term (current) use of anticoagulants; Z79.82 Long term (current) use of aspirin; Z79.899 Other long term (current) drug therapy; Z98.1 Arthrodesis status; Z86.718 Personal history of other venous thrombosis and embolism; Z86.711 Personal history of pulmonary embolism; Z85.828 Personal history of other malignant neoplasm of skin; Z91.81 History of falling; Z87.39 Personal history of other diseases of the musculoskeletal system and connective tissue; Z87.19 Personal history of other diseases of the digestive system; Z90.49 Acquired absence of other specified parts of digestive tract; Z86.19 Personal history of other infectious and parasitic diseases; Z95.5 Presence of coronary angioplasty implant and graft; Z90.89 Acquired absence of other organs; Z98.51 Tubal ligation status; Z98.818 Other dental procedure status; Z87.2 Personal history of diseases of the skin and subcutaneous tissue; Z95.828 Presence of other vascular implants and grafts; Z95.820 Peripheral vascular angioplasty status with implants and grafts; Z87.11 Personal history of peptic ulcer disease; Z98.891 History of uterine scar from previous surgery; Z98.890 Other specified postprocedural states; Z88.1 Allergy status to other antibiotic agents; Z83.3 Family history of diabetes mellitus; Z82.49 Family history of ischemic heart disease and other diseases of the circulatory system; Z80.49 Family history of malignant neoplasm of other genital organs; Z83.2 Family history of diseases of the blood and blood-forming organs and certain disorders involving the immune mechanism
CPT/HCPCS: 36415; 74177; 80048; 80053; 81003; 82150; 83690; 83735; 84132; 85025; 87635; 93005; 94640; 96361; 96365; 96375; 99285

== ENCOUNTER 2021-01-17 18:24 | Emergency (ER) | payer MEDICARE, OTHER ==
[2021-01-17 18:38] VITALS: RESP 18
[2021-01-17] MEDS ORDERED: ONDANSETRON 4 MG/2 ML VIAL IVP STA (19:34)
[2021-01-17] MEDS ORDERED: SODIUM CHLORIDE 0.9% 1,000 ML IV STA (19:34)
[2021-01-17] MEDS ORDERED: MORPHINE SULFATE 4 MG/ML SYRINGE IV STA (19:34)
--- NOTE | 2021-01-17 19:37 | ED ---
General Adult HPI - General Chief complaint: Extremity Injury, Lower Stated complaint: Fall/ankle injury Time Seen by Provider: 01/17/21 19:19 Source: patient Mode of arrival: wheelchair Limitations: no limitations - History of Present Illness Initial comments: Dictation was produced using [employer] dictation software. please excuse any grammatical, word or spelling errors. Chief Complaint: 60-year-old female multiple comorbidities presents to the emergency department for dizziness, acute on chronic abdominal pain, vomiting and left ankle pain. History of Present Illness: 60-year-old female with last several days she's been having worsening lightheadedness. Exacerbating when she stands. Patient also having acute on chronic abdominal pain. States that she's been having some diarrhea nonbilious nonbloody emesis. States that her pain is to the epigastric area and radiates across to the left abdomen in and goes down. States that she has intractable vomiting and unable to tolerate anything orally. Denies any recent travel. No concerns for food poisoning. No obvious sick contacts. She reports that she fell recently from feeling so lightheaded that she injured her left ankle and her left knee. She also has some tightness in the Area. She takes and coagulation medications for treatment of thrombosis. The ROS documented in this emergency department record has been reviewed and confirmed by me. Those systems with pertinent positive or negative responses have been documented in the HPI. All other systems are other negative and/or noncontributory. PHYSICAL EXAM: General Impression: Alert and oriented x3, not in acute distress HEENT: Normocephalic atraumatic, extra-ocular movements intact, pupils equal and reactive to light bilaterally, mucous membranes moist. Cardiovascular: Heart regular rate and rhythm Chest: Able to complete full sentences, no retractions, no tachypnea Abdomen: abdomen soft, diffuse abdominal tenderness to palpation, non-distended, no organomegaly Musculoskeletal: Pulses present and equal in all extremities, no peripheral edema Motor: no focal deficits noted Neurological: CN II-XII grossly intact, no focal motor or sensory deficits noted Skin: Intact with no visualized rashes Psych: Normal affect and mood ED course: 60-year-old female presents with multiple complaints. Her complaints include ankle pain, knee pain, popliteal pain, calf swelling, lightheadedness, abdominal pain. Vital signs upon arrival shows heart rate of 114, rest of vital signs within acceptable limits. Laboratory evaluation obtained. Mild leukocytosis of 14.2, metabolic panel within acceptable limits. Rotavirus is negative. X-ray: X-ray unremarkable. Abdominal x-rays obstructed. Venous Doppler study is negative for acute DVT. Patient on antiplatelet coagulation medications. There is evidence of chronic DVT in the left lower extremity. Patient revived bedside finally settled medical condition. Patient discharge with tractions follow up with primary care doctor. EKG interpretation: Ventricular rate 79, normal sinus rhythm,. Interval 160, QRS 86, QTC 465. No IA prolongation, no QTC prolongation, no ST or T-wave changes noted. EKG compared to 11/03/2020 showing no changes. Overall, this EKG is unremarkable - Related Data Home Medications Medication Instructions Recorded Confirmed Gabapentin 800 mg PO BID 12/14/13 11/03/20 Ergocalciferol [Vitamin D2 50,000 unit PO Q14D 08/26/15 11/03/20 (DRISDOL)] Insulin Lispro [humaLOG Kwikpen] See Protocol SQ AC-TID 08/26/15 11/03/20 Aspirin [[place] Aspirin EC] 81 mg PO DAILY 09/07/19 11/03/20 HYDROcodone/APAP 10-325MG [[place] 1 tab PO Q4H PRN 10/13/19 11/03/20 10-325] DULoxetine HCL [Cymbalta] 30 mg PO DAILY 08/29/20 11/03/20 Meclizine [Antivert] 12.5 mg PO DAILY 08/29/20 11/03/20 Ondansetron [Zofran ODT] 4 mg PO DAILY PRN 08/29/20 11/03/20 Semaglutide [Rybelsus] 7 mg PO DAILY 08/29/20 11/03/20 tiZANidine HCL 2 mg PO Q8H PRN 11/03/20 11/03/20 Previous Rx's Medication Instructions Recorded Rosuvastatin [Crestor] 10 mg PO HS #0 10/01/16 Apixaban [Eliquis] 5 mg PO BID #60 tab 10/23/18 Albuterol Inhaler [Ventolin Hfa 2 puff INHALATION RT-QID PRN #1 11/09/20 Inhaler] inhaler Insulin Detemir (Levemir) [Levemir] 66 unit SQ HS syr 11/09/20 Pantoprazole Sodium [Protonix] 40 mg PO AC-BID #60 tablet. 11/09/20 Ondansetron Odt [Zofran Odt] 4 mg PO Q8HR PRN #12 tab 01/17/21 Allergies Allergy/AdvReac Type Severity Reaction Status Date / Time vancomycin Allergy Rash/Hives/and Verified 01/17/21 18:38 vomiting diarrhea/Swelling Review of Systems ROS Statement: Those systems with pertinent positive or pertinent negative responses have been documented in the HPI. ROS Other: All systems not noted in ROS Statement are negative. Past Medical History Past Medical History: Coronary Artery Disease (CAD), Cancer, Chest Pain / Angina, COPD, CVA/TIA, Diabetes Mellitus, Deep Vein Thrombosis (DVT), GERD/Reflux, Hyperlipidemia, Hypertension, Myocardial Infarction ([place]), Osteoarthritis (OA), Pulmonary Embolus (PE) Additional Past Medical History / Comment(s): SKIN CA. 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, NEUROPATHY LEGS & FEET, USING WALKER, .Mutiple DVT,mesentaric thrombosis x2 & PE, PAD, chronic pain syndrome, ddd lumbar region w/radiculopathy, HISTORY OF FALL 01/07/20 , tore rt rotator cuff, pancreatitis, fatty liver., Last Myocardial Infarction Date:: 2010 History of Any Multi-Drug Resistant Organisms: None Reported Past Surgical History: Section, Cholecystectomy, Heart Catheterization, Heart Catheterization With Stent, Orthopedic Surgery, Tonsillectomy, Tubal Ligation Additional Past Surgical History / Comment(s): 11 Stents in left leg, fistula left thigh, full mouth teeth extraction, TRAPEASE VENA CAVA FILTER, carpel tunnel, heart stents x4 rca and lad, tumor removal from uterus. Genital warts removed, INGRID. Skin cancer removed from neck, rt great toe amputated, colonoscopy Past Anesthesia/Blood Transfusion Reactions: No Reported Reaction, Motion Sickness Date of Last Stent Placement:: May 2016 Past Psychological History: Anxiety, Depression Smoking Status: Current every day smoker Past Alcohol Use History: None Reported Past Drug Use History: None Reported - Past Family History Mother Family Medical History: Cancer, Congestive Heart Failure (CHF), Diabetes Mellitus, Myocardial Infarction ([place]) Additional Family Medical History / Comment(s): UTERINE CANCER Father Family Medical History: Coronary Artery Disease (CAD), Myocardial Infarction ([place]) Additional Family Medical History / Comment(s): Father at age 70. Sister(s) Family Medical History: Myocardial Infarction ([place]) Additional Family Medical History / Comment(s): Patient has one sister with myocardial infarction at age 55. Son(s) Family Medical History: Deep Vein Thrombosis (DVT), Pulmonary Embolus Additional Family Medical History / Comment(s): Patient has 2 sons and one has history of DVT and pulmonary embolism. General Exam Limitations: no limitations Course Vital Signs 01/17/21 01/17/21 01/17/21 18:35 21:01 23:28 Temperature 98.8 F 98.1 F Pulse Rate 114 H 84 85 Respiratory 18 18 18 Rate Blood Pressure 110/78 125/89 106/72 O2 Sat by Pulse 98 97 Oximetry Medical Decision Making - Lab Data Result diagrams: 01/17/21 20:21 01/17/21 20:21 Lab Results 01/17/21 01/17/21 01/17/21 Range/Units 20:21 20:21 21:07 WBC 14.2 H (3.8-10.6) k/uL RBC 5.21 (3.80-5.40) m/uL Hgb 14.5 (11.4-16.0) gm/dL Hct 44.4 (34.0-46.0) % MCV 85.2 (80.0-100.0) fL MCH 27.8 (25.0-35.0) pg MCHC 32.6 (31.0-37.0) g/dL RDW 15.4 (11.5-15.5) % Plt Count 231 (150-450) k/uL MPV 7.9 Neutrophils % 74 % Lymphocytes % 17 % Monocytes % 5 % Eosinophils % 2 % Basophils % 0 % Neutrophils # 10.5 H (1.3-7.7) k/uL Lymphocytes # 2.5 (1.0-4.8) k/uL Monocytes # 0.8 (0-1.0) k/uL Eosinophils # 0.3 (0-0.7) k/uL Basophils # 0.1 (0-0.2) k/uL Sodium 132 L (137-145) mmol/L Potassium 3.8 (3.5-5.1) mmol/L Chloride 91 L (98-107) mmol/L Carbon Dioxide 33 H (22-30) mmol/L Anion Gap 8 mmol/L BUN 10 (7-17) mg/dL Creatinine 1.22 H (0.52-1.04) mg/dL Est GFR (CKD-EPI)AfAm 56 (>60 ml/min/1.73 sqM) Est GFR (CKD-EPI)NonAf 49 (>60 ml/min/1.73 sqM) Glucose 309 H (74-99) mg/dL Calcium 9.2 (8.4-10.2) mg/dL Total Bilirubin 1.1 (0.2-1.3) mg/dL AST 35 (14-36) U/L ALT 14 (4-34) U/L Alkaline Phosphatase 79 (38-126) U/L Total Protein 6.6 (6.3-8.2) g/dL Albumin 3.4 L (3.5-5.0) g/dL Lipase 115 (23-300) U/L Coronavirus (PCR) Not Detected (Not Detectd) Disposition Clinical Impression: Gastroenteritis Disposition: HOME SELF-CARE Condition: Fair Instructions (If sedation given, give patient instructions): Acute Nausea and Vomiting (ED) Additional Instructions: Follow-up outpatient with your established GI doctor Prescriptions: Ondansetron Odt [Zofran Odt] 4 mg PO Q8HR PRN #12 tab PRN Reason: Nausea Is patient prescribed a controlled substance at d/c from ED?: No Referrals: Tramaine Tejeda MD [STAFF PHYSICIAN] - 1-2 days
[2021-01-17 20:25] LABS: Basophils # (A) 0.1 k/uL (0-0.2); Basophils % (A) 0 %; Eosinophils # (A) 0.3 k/uL (0-0.7); Eosinophils % (A) 2 %; HCT 44.4 % (34.0-46.0); HGB 14.5 gm/dL (11.4-16.0); Lymphocytes # (A) 2.5 k/uL (1.0-4.8); Lymphocytes % (A) 17 %; MCH 27.8 pg (25.0-35.0); MCHC 32.6 g/dL (31.0-37.0); MCV 85.2 fL (80.0-100.0); Mean Platelet Volume 7.9; Monocytes # (A) 0.8 k/uL (0-1.0); Monocytes % (A) 5 %; Neutrophils # (A) 10.5 k/uL (1.3-7.7); Neutrophils % (A) 74 %; Platelet Count 231 k/uL (150-450); RBC 5.21 m/uL (3.80-5.40); RDW 15.4 % (11.5-15.5); WBC 14.2 k/uL (3.8-10.6)
[2021-01-17 20:42] LABS: Albumin 3.4 g/dL (3.5-5.0); Calcium 9.2 mg/dL (8.4-10.2); Potassium 3.8 mmol/L (3.5-5.1); Total Bilirubin 1.1 mg/dL (0.2-1.3); Total Protein 6.6 g/dL (6.3-8.2)
--- NOTE | 2021-01-17 20:49 | XR ---
EXAMINATION TYPE: XR knee 4V LT DATE OF EXAM: 01/17/2021 CLINICAL HISTORY: Pain after falling injury 3 days ago. TECHNIQUE: Three views of the left knee are obtained. Fourth sunrise view acquired. COMPARISON: Left knee x-ray August 29, 2020. FINDINGS: There is no acute fracture/dislocation evident in left knee. [id number] joint space narrowing medial and lateral tibiofemoral compartments. Moderate to severe narrowing patellofemoral c ompartment current study more prominent from prior. Mild tricompartment spurring. Prominent spur or b jaspal projection anterior-inferior patella at proximal patellar attachment redemonstrated. Posterior va scular calcification. Suspect small suprapatellar joint effusion. Mild diffuse subcutaneous edema. IMPRESSION: There is no acute fracture or dislocation in the left knee.
--- NOTE | 2021-01-17 20:50 | XR ---
EXAMINATION TYPE: XR ankle complete LT DATE OF EXAM: 01/17/2021 CLINICAL HISTORY: Pain after falling injury 3 days ago. TECHNIQUE: Frontal, lateral and oblique images of the left ankle are obtained. COMPARISON: Left leg x-ray August 29, 2020 FINDINGS: There is no acute fracture/dislocation evident in the left ankle. The ankle mortise appea rs within normal limits. Focal mild to moderate soft tissue swelling over the lateral malleolus. Ther e are soft tissue densities possible phleboliths redemonstrated. IMPRESSION: There is no acute fracture or dislocation in the left ankle.
--- NOTE | 2021-01-17 20:53 | XR ---
EXAMINATION TYPE: XR abdomen 1V DATE OF EXAM: 01/17/2021 8:44 PM CLINICAL HISTORY: Abdominal pain and vomiting. TECHNIQUE: 2 supine KUB images of the abdomen are obtained. COMPARISON: CT abdomen and pelvis November 04, 2019. FINDINGS: Gas seen in nondistended stomach. Scattered gas in nondistended small and large bowel loops . Metallic stent graft in the IVC at site of IVC filter redemonstrated. There is more superior umbrel la IVC filter redemonstrated. Additional long segment stent in the left iliac vein into groin redemon strated. Facet arthropathy lower lumbar levels. Lung bases not included. IMPRESSION: Overall nonobstructive bowel gas pattern redemonstrated.
[2021-01-17] MEDS ORDERED: ONDANSETRON 4 MG ODT STARTER PACK 2 TAB BTL PO STA (22:55)
--- NOTE | 2021-01-17 23:13 | US ---
EXAMINATION TYPE: US venous doppler duplex LE LT DATE OF EXAM: 01/17/2021 10:54 PM COMPARISON: US CLINICAL HISTORY: popliteal pain. Pain. Hx DVT, PE per patient. Patient has iqra filter in plac e. Patient on Eliquis. Patient has stents in left leg and fistula in left thigh. SIDE PERFORMED: Left TECHNIQUE: The lower extremity deep venous system is examined utilizing real time linear array sonog jai with graded compression, doppler sonography and color-flow sonography. VESSELS IMAGED: Common Femoral Vein Deep Femoral Vein Greater Saphenous Vein * Femoral Vein Popliteal Vein Small Saphenous Vein * Proximal Calf Veins (* superficial vessels) Left Leg: Limited exam; difficulty imaging veins within the left groin. Compressions began at Femor al vein and deep femoral vein level due to difficulty visualizing CFV in transverse compression views . Patient has hx of fistula in left groin. Limited evaluation due to abnormal appearance of vessels within the left groin. Femoral vein prox, mid, and distal appear to compress incompletely suggestive of possible chronic, no n-occlusive thrombus. Internal echoes seen within the left popliteal vein. Popliteal vein does not completely compress. Co iman defect seen. IMPRESSION: There is evidence for chronic deep vein thrombosis. No evidence of acute deep vein throm bosis.
[2021-01-17 23:33] VITALS: BP 106/72; PULSE 85; TEMP 98.1
== END 2021-01-17 23:28 | disposition home or self-care (01) ==
LOC: EC 18:24
DX: K52.9 Noninfective gastroenteritis and colitis, unspecified (principal); R42 Dizziness and giddiness; M25.572 Pain in left ankle and joints of left foot; M25.562 Pain in left knee; I25.2 Old myocardial infarction; M79.89 Other specified soft tissue disorders; J44.9 Chronic obstructive pulmonary disease, unspecified; I10 Essential (primary) hypertension; M19.90 Unspecified osteoarthritis, unspecified site; E11.9 Type 2 diabetes mellitus without complications; F17.200 Nicotine dependence, unspecified, uncomplicated; I25.10 Atherosclerotic heart disease of native coronary artery without angina pectoris; Z79.4 Long term (current) use of insulin; Z88.1 Allergy status to other antibiotic agents; Z20.822 Contact with and (suspected) exposure to COVID-19; Z86.718 Personal history of other venous thrombosis and embolism; Z86.73 Personal history of transient ischemic attack (TIA), and cerebral infarction without residual deficits; Z86.711 Personal history of pulmonary embolism; Z95.5 Presence of coronary angioplasty implant and graft
CPT/HCPCS: 99285; 96374; 96375; 36415; 93005; 80053; 83690; 85025; 87635; 73564; 73610; 74018; 93971; 96361; J2270; J2405

== ENCOUNTER 2021-03-14 01:12 | Inpatient (IN) | payer MEDICARE, OTHER ==
[2021-03-14] MEDS ORDERED: MORPHINE SULFATE 4 MG/ML SYRINGE IV STA (01:39)
[2021-03-14] MEDS ORDERED: SODIUM CHLORIDE 0.9% 1,000 ML IV STA ×2 (01:39→02:58)
--- NOTE | 2021-03-14 01:40 | ED ---
Fall HPI - General Chief Complaint: Fall Stated Complaint: Fall Time Seen by Provider: 03/14/21 01:17 Source: patient, EMS, RN notes reviewed, old records reviewed Mode of arrival: EMS - History of Present Illness Initial Comments: This is a 60-year-old female to the ER for evaluation patient presents today for evaluation of fall. Patient has history of multiple recent falls. She believes that this is related to neuropathy. She has been talking with her primary care about this issue there is been no significant solution found at this point. 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: yes, by family Place Fall Occurred: home Loss of Consciousness: none Prolonged Down Time?: no Symptoms Prior to Fall: none Location: chest Location - Extremities: Left: Shoulder Severity: severe Severity scale (1-10): 7 Quality: sharp, stabbing Context: tripped/slipped, history of frequent falls Associated Symptoms: denies - Related Data Home Medications Medication Instructions Recorded Confirmed Gabapentin 800 mg PO BID 12/14/13 11/03/20 Ergocalciferol [Vitamin D2 50,000 unit PO Q14D 08/26/15 11/03/20 (DRISDOL)] Insulin Lispro [humaLOG Kwikpen] See Protocol SQ AC-TID 08/26/15 11/03/20 Aspirin [[place] Aspirin EC] 81 mg PO DAILY 09/07/19 11/03/20 HYDROcodone/APAP 10-325MG [[place] 1 tab PO Q4H PRN 10/13/19 11/03/20 10-325] DULoxetine HCL [Cymbalta] 30 mg PO DAILY 08/29/20 11/03/20 Meclizine [Antivert] 12.5 mg PO DAILY 08/29/20 11/03/20 Ondansetron [Zofran ODT] 4 mg PO DAILY PRN 08/29/20 11/03/20 Semaglutide [Rybelsus] 7 mg PO DAILY 08/29/20 11/03/20 tiZANidine HCL 2 mg PO Q8H PRN 11/03/20 11/03/20 Previous Rx's Medication Instructions Recorded Rosuvastatin [Crestor] 10 mg PO HS #0 10/01/16 Apixaban [Eliquis] 5 mg PO BID #60 tab 10/23/18 Albuterol Inhaler [Ventolin Hfa 2 puff INHALATION RT-QID PRN #1 11/09/20 Inhaler] inhaler Insulin Detemir (Levemir) [Levemir] 66 unit SQ HS syr 11/09/20 Pantoprazole Sodium [Protonix] 40 mg PO AC-BID #60 tablet. 11/09/20 Ondansetron Odt [Zofran Odt] 4 mg PO Q8HR PRN #12 tab 01/17/21 Allergies Allergy/AdvReac Type Severity Reaction Status Date / Time vancomycin Allergy Rash/Hives/and Verified 01/17/21 18:38 vomiting diarrhea/Swelling Review of Systems ROS Statement: Those systems with pertinent positive or pertinent negative responses have been documented in the HPI. ROS Other: All systems not noted in ROS Statement are negative. Past Medical History Past Medical History: Coronary Artery Disease (CAD), Cancer, Chest Pain / Angina, COPD, CVA/TIA, Diabetes Mellitus, Deep Vein Thrombosis (DVT), GERD/Reflux, Hyperlipidemia, Hypertension, Myocardial Infarction ([place]), Osteoarthritis (OA), Pulmonary Embolus (PE) Additional Past Medical History / Comment(s): SKIN CA. 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, PAD, chronic pain syndrome, ddd lumbar region w/radiculopathy, HISTORY OF FALL 01/07/20 , tore rt rotator cuff, pancreatitis, fatty liver., Last Myocardial Infarction Date:: 2010 History of Any Multi-Drug Resistant Organisms: None Reported Past Surgical History: Section, Cholecystectomy, Heart Catheterization, Heart Catheterization With Stent, Orthopedic Surgery, Tonsillectomy, Tubal Ligation Additional Past Surgical History / Comment(s): 11 Stents in left leg, fistula left thigh, full mouth teeth extraction, TRAPEASE VENA CAVA FILTER, carpel tunnel, heart stents x4 rca and lad, tumor removal from uterus. Genital warts removed, INGRID. Skin cancer removed from neck, rt great toe amputated, colonoscopy Past Anesthesia/Blood Transfusion Reactions: No Reported Reaction, Motion Sickness Date of Last Stent Placement:: May 2016 Past Psychological History: Anxiety, Depression Smoking Status: Current some day smoker Past Alcohol Use History: None Reported Past Drug Use History: None Reported - Past Family History Mother Family Medical History: Cancer, Congestive Heart Failure (CHF), Diabetes Mellitus, Myocardial Infarction ([place]) Additional Family Medical History / Comment(s): UTERINE CANCER Father Family Medical History: Coronary Artery Disease (CAD), Myocardial Infarction ([place]) Additional Family Medical History / Comment(s): Father at age 70. Sister(s) Family Medical History: Myocardial Infarction ([place]) Additional Family Medical History / Comment(s): Patient has one sister with myocardial infarction at age 55. Son(s) Family Medical History: Deep Vein Thrombosis (DVT), Pulmonary Embolus Additional Family Medical History / Comment(s): Patient has 2 sons and one has history of DVT and pulmonary embolism. General Exam Limitations: no limitations General appearance: alert, in no apparent distress Head exam: Present: atraumatic, normocephalic, normal inspection Eye exam: Present: normal appearance, PERRL, EOMI. Absent: scleral icterus, co njunctival injection, periorbital swelling ENT exam: Present: normal exam, mucous membranes moist Neck exam: Present: normal inspection. Absent: tenderness, meningismus, lymphadenopathy Respiratory exam: Present: normal lung sounds bilaterally. Absent: respiratory distress, wheezes, rales, rhonchi, stridor Cardiovascular Exam: Present: regular rate, normal rhythm, normal heart sounds. Absent: systolic murmur, diastolic murmur, rubs, gallop, clicks GI/Abdominal exam: Present: soft, normal bowel sounds. Absent: distended, tenderness, guarding, rebound, rigid Extremities exam: Present: normal inspection, full ROM, normal capillary refill. Absent: tenderness, pedal edema, joint swelling, calf tenderness Back exam: Present: normal inspection Neurological exam: Present: alert, oriented X3, CN II-XII intact Psychiatric exam: Present: normal affect, normal mood Skin exam: Present: warm, dry, intact, normal color. Absent: rash Course Vital Signs 03/14/21 01:13 Temperature 97.9 F Pulse Rate 105 H Respiratory 18 Rate Blood Pressure 139/90 O2 Sat by Pulse 97 Oximetry - Reevaluation(s) Reevaluation #1: 03/14/21 03:00 Medical record is reviewed Reevaluation #2: 03/14/21 03:00 Patient's pain is improved Reevaluation #3: 03/14/21 03:00 Patient informed results and questions answered - Consultations Consultation #1: Spoke with orthopedics will take the admission Procedures - Orthopedic Splinting/Casting Injury #1 Side: left Upper Extremity Injury Location: shoulder Upper Extremity Immobilizer: sling/shoulder immobilizer Medical Decision Making - Medical Decision Making 60 female status post fall. Fall from standing with left humerus fracture. Patient will be admitted with severe current left humerus pain. - Lab Data Result diagrams: 03/14/21 01:43 03/14/21 01:43 Lab Results 03/14/21 03/14/21 03/14/21 Range/Units 01:43 01:43 01:43 WBC 15.9 H (3.8-10.6) k/uL RBC 5.49 H (3.80-5.40) m/uL Hgb 16.3 H (11.4-16.0) gm/dL Hct 49.0 H (34.0-46.0) % MCV 89.3 (80.0-100.0) fL MCH 29.6 (25.0-35.0) pg MCHC 33.2 (31.0-37.0) g/dL RDW 15.6 H (11.5-15.5) % Plt Count 295 (150-450) k/uL MPV 8.4 Neutrophils % 84 % Lymphocytes % 9 % Monocytes % 5 % Eosinophils % 1 % Basophils % 1 % Neutrophils # 13.4 H (1.3-7.7) k/uL Lymphocytes # 1.4 (1.0-4.8) k/uL Monocytes # 0.8 (0-1.0) k/uL Eosinophils # 0.2 (0-0.7) k/uL Basophils # 0.1 (0-0.2) k/uL PT 12.3 H (9.0-12.0) sec INR 1.2 H (<1.2) APTT 25.0 (22.0-30.0) sec Sodium 133 L (137-145) mmol/L Potassium 3.8 (3.5-5.1) mmol/L Chloride 94 L (98-107) mmol/L Carbon Dioxide 28 (22-30) mmol/L Anion Gap 11 mmol/L BUN 8 (7-17) mg/dL Creatinine 1.07 H (0.52-1.04) mg/dL Est GFR (CKD-EPI)AfAm 66 (>60 ml/min/1.73 sqM) Est GFR (CKD-EPI)NonAf 57 (>60 ml/min/1.73 sqM) Glucose 301 H (74-99) mg/dL Plasma Lactic Acid [place] (0.7-2.0) mmol/L Calcium 9.4 (8.4-10.2) mg/dL Phosphorus 3.6 (2.5-4.5) mg/dL Magnesium 1.3 L (1.6-2.3) mg/dL Total Bilirubin 1.1 (0.2-1.3) mg/dL AST 51 H (14-36) U/L ALT 25 (4-34) U/L Alkaline Phosphatase 111 (38-126) U/L Troponin I (0.000-0.034) ng/mL Total Protein 6.4 (6.3-8.2) g/dL Albumin 3.4 L (3.5-5.0) g/dL 03/14/21 03/14/21 Range/Units 01:43 01:43 WBC (3.8-10.6) k/uL RBC (3.80-5.40) m/uL Hgb (11.4-16.0) gm/dL Hct (34.0-46.0) % MCV (80.0-100.0) fL MCH (25.0-35.0) pg MCHC (31.0-37.0) g/dL RDW (11.5-15.5) % Plt Count (150-450) k/uL MPV Neutrophils % % Lymphocytes % % Monocytes % % Eosinophils % % Basophils % % Neutrophils # (1.3-7.7) k/uL Lymphocytes # (1.0-4.8) k/uL Monocytes # (0-1.0) k/uL Eosinophils # (0-0.7) k/uL Basophils # (0-0.2) k/uL PT (9.0-12.0) sec INR (<1.2) APTT (22.0-30.0) sec Sodium (137-145) mmol/L Potassium (3.5-5.1) mmol/L Chloride (98-107) mmol/L Carbon Dioxide (22-30) mmol/L Anion Gap mmol/L BUN (7-17) mg/dL Creatinine (0.52-1.04) mg/dL Est GFR (CKD-EPI)AfAm (>60 ml/min/1.73 sqM) Est GFR (CKD-EPI)NonAf (>60 ml/min/1.73 sqM) Glucose (74-99) mg/dL Plasma Lactic Acid [place] 3.4 H* (0.7-2.0) mmol/L Calcium (8.4-10.2) mg/dL Phosphorus (2.5-4.5) mg/dL Magnesium (1.6-2.3) mg/dL Total Bilirubin (0.2-1.3) mg/dL AST (14-36) U/L ALT (4-34) U/L Alkaline Phosphatase (38-126) U/L Troponin I <0.012 (0.000-0.034) ng/mL Total Protein (6.3-8.2) g/dL Albumin (3.5-5.0) g/dL - EKG Data -: EKG Interpreted by Me (EKG sinus a 93 VT 150 QRS 92 QTC 487) - Radiology Data Radiology results: report reviewed (CT brain C-spine chest and left humerus and pelvis shoulder left humerus fracture), image reviewed Disposition Clinical Impression: Fall, Left humeral fracture, Weakness Disposition: ADMITTED IP TO THIS [facility] Condition: Fair Is patient prescribed a controlled substance at d/c from ED?: No Referrals: Tramaine Tejeda MD [Primary Care Provider] - 1-2 days
[2021-03-14 02:11] LABS: Basophils # (A) 0.1 k/uL (0-0.2); Basophils % (A) 1 %; Eosinophils # (A) 0.2 k/uL (0-0.7); Eosinophils % (A) 1 %; HGB 16.3 gm/dL (11.4-16.0); Lymphocytes # (A) 1.4 k/uL (1.0-4.8); Lymphocytes % (A) 9 %; MCH 29.6 pg (25.0-35.0); MCHC 33.2 g/dL (31.0-37.0); MCV 89.3 fL (80.0-100.0); Mean Platelet Volume 8.4; Monocytes # (A) 0.8 k/uL (0-1.0); Monocytes % (A) 5 %; Neutrophils # (A) 13.4 k/uL (1.3-7.7); Neutrophils % (A) 84 %; Platelet Count 295 k/uL (150-450); RBC 5.49 m/uL (3.80-5.40); RDW 15.6 % (11.5-15.5); WBC 15.9 k/uL (3.8-10.6)
[2021-03-14 02:20] LABS: INR 1.2 (<1.2); Prothrombin Time 12.3 sec (9.0-12.0)
[2021-03-14 02:24] LABS: Albumin 3.4 g/dL (3.5-5.0); Calcium 9.4 mg/dL (8.4-10.2); Magnesium 1.3 mg/dL (1.6-2.3); Phosphorus 3.6 mg/dL (2.5-4.5); Potassium 3.8 mmol/L (3.5-5.1); Total Bilirubin 1.1 mg/dL (0.2-1.3); Total Protein 6.4 g/dL (6.3-8.2)
--- NOTE | 2021-03-14 02:31 | XR ---
EXAMINATION TYPE: XR chest 1V DATE OF EXAM: 03/14/2021 COMPARISON: 2520 HISTORY: Fall. Chest pain TECHNIQUE: Single view FINDINGS: Heart and mediastinum are normal. Lungs are clear. Diaphragm is normal. Bony thorax is inta ct. There are chest leads. IMPRESSION: Normal chest. No change.
--- NOTE | 2021-03-14 02:38 | XR ---
EXAMINATION TYPE: XR shoulder complete LT DATE OF EXAM: 03/14/2021 COMPARISON: NONE HISTORY: Fall. Pain. TECHNIQUE: 2 views FINDINGS: Limited views were obtained at show a fracture of the left humeral neck. There appears to b e rotation and impaction. The lateral view is not helpful. This could be an acute fracture. IMPRESSION: There is humeral neck fracture of uncertain age. Limited exam.
--- NOTE | 2021-03-14 02:40 | XR ---
EXAMINATION TYPE: XR pelvis AP view DATE OF EXAM: 03/14/2021 COMPARISON: 09/07/2019 HISTORY: Fall. Pain. TECHNIQUE: Single view FINDINGS: Pelvic ring is intact. Proximal femurs and hip joints are intact. There is a stent apparent ly in the left iliac vein and inferior vena cava. Sacroiliac joints are intact. IMPRESSION: No acute abnormality of the pelvis. No fracture seen. No change compared to old exam.
--- NOTE | 2021-03-14 02:47 | CT ---
EXAMINATION TYPE: CT brain cspine wo con DATE OF EXAM: 03/14/2021 COMPARISON: CT brain 09/07/2019 HISTORY: fall CT DLP: 1226.4 mGycm Automated exposure control for dose reduction was used. Ventricles have normal size. There is no mass effect nor midline shift. There is no sign of intracran ial hemorrhage. Calvarium is intact. Skull base is intact. There is anterior fusion surgery in the lower cervical spine from C5 to C7. The posterior elements ar e intact. There is no compression fracture. Prevertebral soft tissues are intact. Facet joints are in tact. There is no evidence of a fracture. IMPRESSION: Previous anterior fusion surgery. No fracture seen. Negative CT scan of the brain. No acute intracranial abnormality. No change compared to old exam.
[2021-03-14] MEDS ORDERED: HYDROmorphone 1 MG/ML 1 ML SYRINGE IVP STA (02:48)
[2021-03-14] MEDS ORDERED: NALOXONE 0.4 MG/ML 1 ML VIAL IV PRN (02:58)
[2021-03-14] MEDS ORDERED: ONDANSETRON 4 MG/2 ML VIAL IVP PRN (02:58)
[2021-03-14] MEDS ORDERED: SODIUM CHLORIDE 0.9% 500 ML 500 ML IV STA (02:58)
[2021-03-14] MEDS: MAGNESIUM SULFATE-D5W PMX 1 GM in DEXTROSE/WATER 1 100ML.BAG IVPB SCH ×2 (03:33→04:38)
[2021-03-14] MEDS: HYDROmorphone 1 MG/ML 1 ML SYRINGE IVP PRN ×2 (07:54→17:35)
[2021-03-14] MEDS ORDERED: MECLIZINE 12.5 MG TAB PO PRN (08:13)
[2021-03-14] MEDS ORDERED: ALBUTEROL HFA INHALER INHALATION PRN (08:13)
[2021-03-14] MEDS ORDERED: ONDANSETRON ODT 4 MG TAB PO PRN (08:13)
[2021-03-14] MEDS ORDERED: FUROSEMIDE 20 MG TAB PO SCH (09:00)
[2021-03-14] MEDS: HYDROcodone/APAP 10-325MG 1 EACH TAB PO SCH ×4 (09:25→22:13)
[2021-03-14] MEDS: POTASSIUM CHLORIDE ER 10 MEQ TAB.ER.PRT PO SCH ×2 (09:26→22:13)
[2021-03-14] MEDS: GABAPENTIN 400 MG CAP PO SCH ×2 (09:26→22:14)
[2021-03-14] MEDS: MIDODRINE 5 MG TAB PO SCH ×2 (09:26→22:14)
[2021-03-14] MEDS: DULoxetine HCL 60 MG CAPSULE.DR PO SCH (09:26)
[2021-03-14] MEDS: PANTOPRAZOLE 40 MG TABLET PO SCH (09:26)
[2021-03-14] MEDS: NON FORMULARY DRUG (Dapagliflozin Propanediol [Farxiga] 10 MG Tablet) PO SCH (11:11)
--- NOTE | 2021-03-14 12:00 | P.CONS ---
History of Present Illness - Reason for Consult Consult date: 03/14/21 Medical management Requesting physician: Turner Coffman - History of Present Illness HISTORY OF PRESENT ILLNESS This is a 60-year-old female patient of Dr. Tejeda and Dr. Bill with history of CAD with multiple cardiac stents in mid RCA, mid LAD, obtuse marginal branch and followed by Dr. Bill closely, peripheral artery disease with previous stenting done as well has amputation of the right great toe secondary to osteomyelitis, CVA with no residual deficits, hypertension, COPD, diabetes mellitus type 2, previous multiple DVT and PE requiring chronic anticoagulation on eliquis, history of GI bleed secondary to antral gastritis, esophagitis vitamin D deficiency, orthostatic hypotension on midodrine. Patient had a fall about 11:15 last evening. Patient states that she was getting up to go into the bathroom. She landed on her left arm. Her was unable to get her up and EMS was called. Patient has not been eating very much. She was recently sta rted on Rybelsus and 7 mg twice daily and this was increased approximately one to 2 weeks ago to 14 mg. A1c 02/14/2021 was 9.6. Patient has had decreased appetite and taking Zofran. She states that she had EMG done last week at [facility] due to ongoing problems with balance and neuropathy. Patient was brought into [facility] emergency center for evaluation. Patient was afebrile, heart rate 105, blood pressure 139/90 and pulse ox 97% on room air. WBC 15.9, hemoglobin 16.3, platelet count 295. INR 1.6. Sodium 133, potassium 3.8, chloride 94, CO2 28, BUN 8 and creatinine 1.07. Blood sugar 301. Lactic acid initially 3.4 and repeat 1.7. Magnesium 1.3, total bilirubin 1.1, AST 51, ALT 25, alkaline phosphatase 111. Phosphorus 3.6. Albumin 3.4. Troponin negative. Left shoulder x-ray showed humeral neck fracture appears to be rotated and impacted. Chest x-ray is normal. CT of the brain was negative. No acute intracranial abnormality. CT of the cervical spine showed previous anterior fusion surgery. No fracture seen. Patient is status post 2.5 L of IV fluid, magnesium replacement, morphine and Dilaudid, admitted to the orthopedic service and we've been asked to follow the patient for medical management. Eliquis and aspirin placed on hold in case surgical intervention is necessary. REVIEW OF SYSTEMS Constitutional: No fever, no chills, no night sweats. No weight change. No weakness, fatigue or lethargy. No daytime sleepiness. EENT: No headache. No dizziness. Reports difficulty swallowing. No nasal drainage or congestion. No epistaxis. No sore throat. Lungs: No shortness of breath, cough, no sputum production. No wheezing. Cardiovascular: No chest pain, no lower extremity edema. No palpitations. No paroxysmal nocturnal dyspnea. No orthopnea. No lightheadedness or dizziness. No syncopal episodes. Abdominal: Reports abdominal pain. Reports nausea, reports vomiting. Reports diarrhea. No constipation. No bloody or tarry stools. Reports loss of appetite. Genitourinary: No dysuria, increased frequency, urgency. No urinary retention. Musculoskeletal: No myalgias. No muscle weakness, reports balance dysfunction, reports gait dysfunction, reports frequent falls. No back pain. No neck pain. Integumentary: No wounds, no lesions. No rash or pruritus. No unusual bruising. No change in hair or nails. Neurologic: No aphasia. No facial droop. No change in mentation. No head injury. No headache. No paralysis. No paresthesia. Psychiatric: No depression. No anxiety. No mood swings. Endocrine: No abnormal blood sugars. No weight change. No excessive sweating or thirst. No cold intolerance. MEDICAL HISTORY Coronary artery disease with multiple cardiac stents in the RCA, mid LAD, obtuse marginal branch Peripheral artery disease with previous stenting Right great toe osteomyelitis status post amputation CVA with no residual deficits Hypertension Hyperlipidemia COPD Diabetes mellitus type 2 Multiple DVT and PE on chronic anticoagulation History of GI bleed secondary to antral gastritis and esophagitis Vitamin D deficiency Orthostatic hypotension SURGICAL HISTORY Cholecystectomy Tonsillectomy Tubal ligation 11 stents in the left leg Full teeth extraction Trapeze vena cava filter Carpal tunnel release Coronary artery stents 4 to the RCA, LAD, obtuse marginal Tumor removed from the uterus will INGRID Skin cancer removal from the neck Right great toe amputation Colonoscopy and EGD I&D right groin abscess Anterior approach cervical disc fusion. SOCIAL HISTORY Patient is a smoker of about half a pack per day since 1993 and quit prior to her cervical surgery. No alcohol use, illicit drug use. Patient lives at home with her . FAMILY HISTORY Mother has history of uterine cancer, diabetes, myocardial infarction, heart failure. Father at age 70 from myocardial infarction. Patient has one sister and she had a myocardial infarction at age 55. Patient has 2 sons and one has history of DVT and pulmonary embolism. PHYSICAL EXAMINATION Gen: This is a 60-year-old female. She is resting in bed and appears to be comfortable and in no acute distress. HEENT: Head is atraumatic, normocephalic. Pupils equal, round. Sclerae is anicteric. Mucous members of the mouth are somewhat dry. Heart cervical collar in place. NECK: Supple. No JVD. No lymphadenopathy. No thyromegaly. LUNGS: Clear to auscultation. No wheezes or rhonchi. No intercostal retractions. 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 ABDOMEN: Soft. Bowel sounds are present. No masses. Left upper quadrant tenderness. EXTREMITIES: No pedal edema. No calf tenderness. Dorsalis pedis +1 bilaterally. Left-sided arm sling in place. NEUROLOGICAL: Patient is awake, alert and oriented x3. Cranial nerves 2 through 12 are grossly intact. Muscle power 3/5 in the left upper extremity, 4/5 in the right upper extremity, 4/5 in the bilateral lower extremities. DTRs are depressed bilaterally. Neuropathic changes in both feet. ASSESSMENT AND PLAN 1. Left humerus fracture secondary to fall. Patient has been admitted to orthopedics. Continue pain management with [place] or Dilaudid, left arm sling in place. Eliquis and aspirin placed on hold in case surgical intervention is necessary. 2. Generalized weakness and balance dysfunction with workup in place outpatient and status post cervical disc fusion. 3. Diabetes mellitus type 2, uncontrolled with hyperglycemia. Continue Lantus 60 units at bedtime, Farxiga 10 mg daily, Rybelsus 14 mg twice daily, NovoLog scale before meals and at bedtime. 4. Coronary artery disease status post multiple PCI with ischemic cardiomyopathy. Continue Lasix 20 mg every 48 hours, and Lipitor 40 mg orally daily. 4. Hypertension and hypertensive cardiovascular disease. Continue Lasix. History of hypotension 5. Chronic DVT and PEs. Continue Eliquis 5 mg orally bid for life--on hold. 6. Orthostatic hypotension. Continue midodrine 5 mg twice daily. 7. Hyperlipidemia. Continue Lipitor 20 mg po daily. 8. Diabetic polyneuropathy. Continue gabapentin 800 mg 2 times daily . 9. Severe PAD. Continue Lipitor 20 mg orally daily, hold aspirin 81 mg daily. 10. Recurrent depression. Continue Cymbalta 60 mg daily. 11. GI prophylaxis. we will continue with Protonix 40 mg IV daily, 12. DVT prophylaxis. Hold Eliquis 5 mg orally bid. Thank you kindly for this consultation. We will be happy to follow along with you. DISCHARGE PLAN Home Impression and plan of care have been directed as dictated by the signing physician. Kerri Kevin nurse practitioner acting as scribe for signing physician. Past Medical History Past Medical History: Coronary Artery Disease (CAD), Cancer, Chest Pain / Angina, COPD, CVA/TIA, Diabetes Mellitus, Deep Vein Thrombosis (DVT), GERD/Reflux, Hyperlipidemia, Hypertension, Myocardial Infarction ([place]), Osteoarthritis (OA), Pulmonary Embolus (PE) Additional Past Medical History / Comment(s): SKIN CA. 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, NEUROPATHY LEGS & FEET, USING WALKER, .Mutiple DVT,mesentaric thrombosis x2 & PE, PAD, chronic pain syndrome, ddd lumbar region w/radiculopathy, HISTORY OF FALL 01/07/20 , tore rt rotator cuff, pancreatitis, fatty liver., Last Myocardial Infarction Date:: 2010 History of Any Multi-Drug Resistant Organisms: None Reported Past Surgical History: Section, Cholecystectomy, Heart Catheterization, Heart Catheterization With Stent, Orthopedic Surgery, Tonsillectomy, Tubal Ligation Additional Past Surgical History / Comment(s): 11 Stents in left leg, fistula left thigh, full mouth teeth extraction, TRAPEASE VENA CAVA FILTER, carpel tunnel, heart stents x4 rca and lad, tumor removal from uterus. Genital warts removed, INGRID. Skin cancer removed from neck, rt great toe amputated, colonoscopy Past Anesthesia/Blood Transfusion Reactions: No Reported Reaction, Motion Sickness Date of Last Stent Placement:: May 2016 Past Psychological History: Anxiety, Depression Smoking Status: Current some day smoker Past Alcohol Use History: None Reported Past Drug Use History: None Reported - Past Family History Mother Family Medical History: Cancer, Congestive Heart Failure (CHF), Diabetes Mellit us, Myocardial Infarction ([place]) Additional Family Medical History / Comment(s): UTERINE CANCER Father Family Medical History: Coronary Artery Disease (CAD), Myocardial Infarction ([place]) Additional Family Medical History / Comment(s): Father at age 70. Sister(s) Family Medical History: Myocardial Infarction ([place]) Additional Family Medical History / Comment(s): Patient has one sister with myocardial infarction at age 55. Son(s) Family Medical History: Deep Vein Thrombosis (DVT), Pulmonary Embolus Additional Family Medical History / Comment(s): Patient has 2 sons and one has history of DVT and pulmonary embolism. Medications and Allergies Home Medications Medication Instructions Recorded Confirmed Type Gabapentin 800 mg PO BID 12/14/13 03/14/21 History Ergocalciferol [Vitamin D2 50,000 unit PO Q14D 08/26/15 03/14/21 History (MELANIE)] Insulin Lispro [humaLOG Kwikpen] 12 unit SQ ACHS 08/26/15 03/14/21 History Rosuvastatin [Crestor] 10 mg PO HS #0 10/01/16 03/14/21 Rx Apixaban [Eliquis] 5 mg PO BID #60 tab 10/23/18 03/14/21 Rx Aspirin [Curtis Aspirin EC] 81 mg PO DAILY 09/07/19 03/14/21 History HYDROcodone/APAP 10-325MG [[place] 1 tab PO QID 10/13/19 03/14/21 History 10-325] Meclizine [Antivert] 12.5 mg PO DAILY PRN 08/29/20 03/14/21 History Albuterol Inhaler [Ventolin Hfa 2 puff INHALATION RT-QID PRN #1 11/09/20 03/14/21 Rx Inhaler] inhaler Ondansetron Odt [Zofran Odt] 4 mg PO Q8HR PRN #12 tab 01/17/21 03/14/21 Rx DULoxetine HCL [Cymbalta] 60 mg PO DAILY 03/14/21 03/14/21 History Dapagliflozin Propanediol [Farxiga] 10 mg PO DAILY 03/14/21 03/14/21 History Furosemide [Lasix] 20 mg PO Q48H 03/14/21 03/14/21 History Insulin Glargine [Lantus] 60 unit SQ HS 03/14/21 03/14/21 History Midodrine [ProAmatine] 5 mg PO BID 03/14/21 03/14/21 History Omeprazole [PriLOSEC] 20 mg PO DAILY 03/14/21 03/14/21 History Potassium Chloride [Klor-Con 10] 10 meq PO BID 03/14/21 03/14/21 History Semaglutide [Rybelsus] 14 mg PO AC-BID 03/14/21 03/14/21 History icosapent ethyL [Icosapent Ethyl] 2 gram PO BID-W/MEALS 03/14/21 03/14/21 History Allergies Allergy/AdvReac Type Severity Reaction Status Date / Time vancomycin Allergy Rash/Hives/and Verified 03/14/21 07:38 vomiting diarrhea/Swelling Physical Exam Vitals: Vital Signs Temp Pulse Resp BP Pulse Ox 03/14/21 05:00 98.0 F 81 16 114/77 97 03/14/21 03:02 84 16 136/81 98 03/14/21 01:13 97.9 F 105 H 18 139/90 97 Intake and Output 03/13/21 03/14/21 03/14/21 22:59 06:59 14:59 Other: Weight 88.904 kg Results CBC & Chem 7: 03/14/21 01:43 03/14/21 01:43 Labs: Abnormal Lab Results - Last 24 Hours (Table) 03/14/21 03/14/21 03/14/21 Range/Units 01:43 01:43 01:43 WBC 15.9 H (3.8-10.6) k/uL RBC 5.49 H (3.80-5.40) m/uL Hgb 16.3 H (11.4-16.0) gm/dL Hct 49.0 H (34.0-46.0) % RDW 15.6 H (11.5-15.5) % Neutrophils # 13.4 H (1.3-7.7) k/uL PT 12.3 H (9.0-12.0) sec INR 1.2 H (<1.2) Sodium 133 L (137-145) mmol/L Chloride 94 L (98-107) mmol/L Creatinine 1.07 H (0.52-1.04) mg/dL Glucose 301 H (74-99) mg/dL Plasma Lactic Acid Mynor (0.7-2.0) mmol/L Magnesium 1.3 L (1.6-2.3) mg/dL AST 51 H (14-36) U/L Albumin 3.4 L (3.5-5.0) g/dL 03/14/21 Range/Units 01:43 WBC (3.8-10.6) k/uL RBC (3.80-5.40) m/uL Hgb (11.4-16.0) gm/dL Hct (34.0-46.0) % RDW (11.5-15.5) % Neutrophils # (1.3-7.7) k/uL PT (9.0-12.0) sec INR (<1.2) Sodium (137-145) mmol/L Chloride (98-107) mmol/L Creatinine (0.52-1.04) mg/dL Glucose (74-99) mg/dL Plasma Lactic Acid Mynor 3.4 H* (0.7-2.0) mmol/L Magnesium (1.6-2.3) mg/dL AST (14-36) U/L Albumin (3.5-5.0) g/dL
[2021-03-14 12:43] LABS: Glucose,Whole Blood 203 mg/dL (75-99)
[2021-03-14] MEDS: INSULIN ASPART (NovoLOG) 100 UNIT/ML VIAL SQ SCH ×6 (12:47→22:15)
--- NOTE | 2021-03-14 14:00 | P.HPOR ---
History of Present Illness H&P Date: 03/14/21 Chief Complaint: Left humerus fracture Patient is a 60-year-old female who presented to [facility] early this morning after a fall at home. Patient apparently was trying to get to the bathroom when she lost her balance after becoming dizzy and fell directly on her left shoulder. She does not think she had during the fall, she denies any loss consciousness. Her was unable to get her off the floor, so she was transferred to [facility] for further evaluation. Upon arrival to the hospital, multiple lab tests and imaging test were done. Computed tomography scan of the head/neck reveal no acute processes. Pelvis x- ray revealed no acute processes. X-rays of the left shoulder demonstrated a displaced left proximal humerus fracture involving the humeral neck. I was contacted by the emergency room staff regarding the patient due to pain control and difficulty with ambulation, patient was admitted to [facility] under our orthopedic service, internal medicine was consulted. Patient was evaluated today in the emergency room, her was present at bedside. She is resting comfortably. She is aphasic arm sling at this time involving the left upper extremity. Also the pain is noted around the shoulder area. She denies any pain of the right upper extremity, bilateral lower extremities. She does have history of a recent anterior cervical fusion that was done at a [facility] and was filled in December 2020, she notes no acute changes in her pain involving her neck. She denies any numbness or tingling currently in the bilateral lower extremity is. She denies any numbness or tingling in the bilateral upper extremities currently. She has no loss of bowel or bladder function at this time. She denies any perineal or general numbness. Patient is a very detailed vascular history, this including peripheral vascular disease history of previous DVTs, history of multiple stents placed in both lower extremities along with cardiac stents. Patient admits to frequent falls, she contributes this to the amount of dizziness and unsteadiness that she has. This is been going on for quite some time. She normally utilizes either a walker or cane for ambulation. Review of Systems Constitutional: Reports as per HPI Past Medical History Past Medical History: Coronary Artery Disease (CAD), Cancer, Chest Pain / Angina, COPD, CVA/TIA, Diabetes Mellitus, Deep Vein Thrombosis (DVT), GERD/Reflux, Hyperlipidemia, Hypertension, Myocardial Infarction (GA), Osteoarthritis (OA), Pulmonary Embolus (PE) Additional Past Medical History / Comment(s): SKIN CA. 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, NEUROPATHY LEGS & FEET, USING WALKER, .Mutiple DVT,mesentaric thrombosis x2 & PE, PAD, chronic pain syndrome, ddd lumbar region w/radiculopathy, HISTORY OF FALL 01/07/20 , tore rt rotator cuff, pancreatitis, fatty liver., Last Myocardial Infarction Date:: 2010 History of Any Multi-Drug Resistant Organisms: None Reported Past Surgical History: Section, Cholecystectomy, Heart Catheterization, Heart Catheterization With Stent, Orthopedic Surgery, Tonsillectomy, Tubal Ligation Additional Past Surgical History / Comment(s): 11 Stents in left leg, fistula left thigh, full mouth teeth extraction, TRAPEASE VENA CAVA FILTER, carpel tunnel, heart stents x4 rca and lad, tumor removal from uterus. Genital warts removed, INGRID. Skin cancer removed from neck, rt great toe amputated, colonoscopy Past Anesthesia/Blood Transfusion Reactions: No Reported Reaction, Motion Sickness Date of Last Stent Placement:: May 2016 Past Psychological History: Anxiety, Depression Smoking Status: Current some day smoker Past Alcohol Use History: None Reported Past Drug Use History: None Reported - Past Family History Mother Family Medical History: Cancer, Congestive Heart Failure (CHF), Diabetes Mellitus, Myocardial Infarction (GA) Additional Family Medical History / Comment(s): UTERINE CANCER Father Family Medical History: Coronary Artery Disease (CAD), Myocardial Infarction (GA) Additional Family Medical History / Comment(s): Father at age 70. Sister(s) Family Medical History: Myocardial Infarction (GA) Additional Family Medical History / Comment(s): Patient has one sister with myocardial infarction at age 55. Son(s) Family Medical History: Deep Vein Thrombosis (DVT), Pulmonary Embolus Additional Family Medical History / Comment(s): Patient has 2 sons and one has history of DVT and pulmonary embolism. Medications and Allergies Home Medications Medication Instructions Recorded Confirmed Type Gabapentin 800 mg PO BID 12/14/13 03/14/21 History Ergocalciferol [Vitamin D2 50,000 unit PO Q14D 08/26/15 03/14/21 History (MELANIE)] Insulin Lispro [humaLOG Kwikpen] 12 unit SQ ACHS 08/26/15 03/14/21 History Rosuvastatin [Crestor] 10 mg PO HS #0 10/01/16 03/14/21 Rx Apixaban [Eliquis] 5 mg PO BID #60 tab 10/23/18 03/14/21 Rx Aspirin [M[place]ws Aspirin EC] 81 mg PO DAILY 09/07/19 03/14/21 History HYDROcodone/APAP 10-325MG [[place] 1 tab PO QID 10/13/19 03/14/21 History 10-325] Meclizine [Antivert] 12.5 mg PO DAILY PRN 08/29/20 03/14/21 History Albuterol Inhaler [Ventolin Hfa 2 puff INHALATION RT-QID PRN #1 11/09/20 03/14/21 Rx Inhaler] inhaler Ondansetron Odt [Zofran Odt] 4 mg PO Q8HR PRN #12 tab 01/17/21 03/14/21 Rx DULoxetine HCL [Cymbalta] 60 mg PO DAILY 03/14/21 03/14/21 History Dapagliflozin Propanediol [Farxiga] 10 mg PO DAILY 03/14/21 03/14/21 History Furosemide [Lasix] 20 mg PO Q48H 03/14/21 03/14/21 History Insulin Glargine [Lantus] 60 unit SQ HS 03/14/21 03/14/21 History Midodrine [ProAmatine] 5 mg PO BID 03/14/21 03/14/21 History Omeprazole [PriLOSEC] 20 mg PO DAILY 03/14/21 03/14/21 History Potassium Chloride [Klor-Con 10] 10 meq PO BID 03/14/21 03/14/21 History Semaglutide [Rybelsus] 14 mg PO AC-BID 03/14/21 03/14/21 History icosapent ethyL [Icosapent Ethyl] 2 gram PO BID-W/MEALS 03/14/21 03/14/21 History Allergies Allergy/AdvReac Type Severity Reaction Status Date / Time vancomycin Allergy Rash/Hives/and Verified 03/14/21 07:38 vomiting diarrhea/Swelling Physical Examination Gen: AOx3, NAD VSS stable at this time Integument: No obvious skin changes are present at the left shoulder, this can include open lesions Well-healed incision over the anterior aspect of the right-sided neck No obvious skin changes appreciated at the posterior aspect of cervical, thoracic or lumbar spine There is a small skin abrasion noted on the medial and lateral aspect of the left ankle Palpation: Patient is nontender with palpation along the midline, paraspinal regions of the cervical, thoracic or lumbar spine She has generalized tenderness surrounding the left shoulder with palpation No point tenderness is appreciated on exam of the right upper extremity or bilateral lower extremities ROM: Range of motion was difficult to assess in the left upper extremity due to pain and use of arm sling Range of motion in all major muscle groups of the right upper extremity along with bilateral lower extremities are intact Sensory Exam: Senory exam to light touch is intact C5-T1 Senosry exam to light touch is intact L2-S1 Motor: 5 out of 5 strength is appreciated in the bilateral lower extremities with hip flexion, knee extension, knee flexion, plantar flexion, dorsiflexion, EHL, FHL 4/5 strength is appreciated in right upper extremity with regards to shoulder abduction, forward elevation, elbow flexion, elbow extension, wrist extension, wrist flexion, finger intrinsics Strength was not assessed left upper extremity Results - Labs Labs: Abnormal Lab Results - Last 24 Hours (Table) 03/14/21 03/14/21 03/14/21 Range/Units 01:43 01:43 01:43 WBC 15.9 H (3.8-10.6) k/uL RBC 5.49 H (3.80-5.40) m/uL Hgb 16.3 H (11.4-16.0) gm/dL Hct 49.0 H (34.0-46.0) % RDW 15.6 H (11.5-15.5) % Neutrophils # 13.4 H (1.3-7.7) k/uL PT 12.3 H (9.0-12.0) sec INR 1.2 H (<1.2) Sodium 133 L (137-145) mmol/L Chloride 94 L (98-107) mmol/L Creatinine 1.07 H (0.52-1.04) mg/dL Glucose 301 H (74-99) mg/dL POC Glucose (mg/dL) (75-99) mg/dL Plasma Lactic Acid Mynor (0.7-2.0) mmol/L Magnesium 1.3 L (1.6-2.3) mg/dL AST 51 H (14-36) U/L Albumin 3.4 L (3.5-5.0) g/dL 03/14/21 03/14/21 Range/Units 01:43 12:39 WBC (3.8-10.6) k/uL RBC (3.80-5.40) m/uL Hgb (11.4-16.0) gm/dL Hct (34.0-46.0) % RDW (11.5-15.5) % Neutrophils # (1.3-7.7) k/uL PT (9.0-12.0) sec INR (<1.2) Sodium (137-145) mmol/L Chloride (98-107) mmol/L Creatinine (0.52-1.04) mg/dL Glucose (74-99) mg/dL POC Glucose (mg/dL) 203 H (75-99) mg/dL Plasma Lactic Acid Mynor 3.4 H* (0.7-2.0) mmol/L Magnesium (1.6-2.3) mg/dL AST (14-36) U/L Albumin (3.5-5.0) g/dL H & H 03/14/21 Range/Units 01:43 Hgb 16.3 H (11.4-16.0) gm/dL Hct 49.0 H (34.0-46.0) % Coagulation 03/14/21 Range/Units 01:43 INR 1.2 H (<1.2) Result Diagrams: 03/14/21 01:43 03/14/21 01:43 - Diagnostic results Shoulder x-ray: report reviewed, image reviewed (Images demonstrated a displaced fracture involving the humeral neck, the glenohumeral joint remains intact) Hip x-ray: report reviewed, image reviewed (Reported images were reviewed of the AP pelvis, there is no acute fractures or dislocations present) CT scan - cervical: report reviewed, image reviewed CT scan - cervical myelogram: image reviewed (Images demonstrate stable hardware of vertebrae of C5-C7. No acute fractures or dislocations are appreciated) Assessment and Plan Assessment: Displaced left humeral neck fracture Status post fall from standing History of recent anterior cervical fusion, December 2020, stable appearing hardware Multiple medical comorbidities Plan: I was able to discuss the case, including the physical exam findings and imaging studies my attending Dr. Coffman. No emergent orthopedic surgical intervention recommended at this time Patient is a very high-risk candidate for surgery taking any consideration her vascular disease, including both peripherally and involving her cardiac history. We are recommending conservative measures at this time, this included use of an arm sling. I did provide the patient today with a better fitting arm sling. We discussed the possibility meeting discharged home, due to her acute pain and need for further assistance at home, I would like to keep her in the hospital at least one night. Patient would benefit from the use of a bedside commode and a shower chair, this will be arranged with case management Our plan is to follow up with the patient the outpatient setting for x-ray evaluation in the next week and to discuss further treatment GI and DVT prophylaxis, patient can resume her normal anticoagulation at this time Nonweightbearing left upper extremity Recommend icing of the left shoulder often, utilizing arm sling at all times Other medical receptionist medical assistant recommendations Discharge planning: Consisted discharged home on 03/15/2021 Time with Patient: Less than 30
[2021-03-14 16:14] LABS: Appearance,Urine Clear (Clear); Bilirubin,Urine Negative (Negative); Blood,Urine Negative (Negative); Color,Urine Yellow; Glucose,Urine (UA) 4+ (Negative); Ketones,Urine Negative (Negative); Leukocyte Esterase,Urine Negative (Negative); Nitrite,Urine Negative (Negative); Protein,Urine Negative (Negative); Specific Gravity,Urine 1.013 (1.001-1.035); Urobilinogen,Urine <2.0 mg/dL (<2.0)
[2021-03-14 17:42] LABS: Glucose,Whole Blood 138 mg/dL (75-99)
[2021-03-14] MEDS: NON FORMULARY DRUG (Icosapent Ethyl [Icosapent Ethyl] 1 GM Capsule) PO SCH (20:04)
[2021-03-14] MEDS: NON FORMULARY DRUG (Semaglutide [Rybelsus] 14 MG Tablet) PO SCH (20:10)
[2021-03-14 20:53] LABS: Glucose,Whole Blood 165 mg/dL (75-99)
[2021-03-14] MEDS: INSULIN DETEMIR (LEVEMIR) 100 UNIT/ML SYR SQ SCH (22:14)
[2021-03-14] MEDS: ATORVASTATIN 20 MG TAB PO SCH (22:14)
[2021-03-15] MEDS: HYDROmorphone 1 MG/ML 1 ML SYRINGE IVP PRN ×4 (00:46→17:15)
[2021-03-15 07:09] LABS: Glucose,Whole Blood 75 mg/dL (75-99)
--- NOTE | 2021-03-15 08:33 | P.PN ---
Subjective Progress Note Date: 03/15/21 Principal diagnosis: Left proximal humerus fracture Patient was evaluated today visit, she was resting in a hospital bed. She notes that the pain is very severe and the left shoulder. I was contacted by the nurse this morning regarding education use. She continues to utilize the sling with minimal relief. She currently denies any headaches, lightheadedness, chest pain, shortness of breath, nausea vomiting, fever or chills. She denies any paresthesias of the upper extremities or lower extremities. Objective - Vital Signs Vital signs: Vital Signs Temp 98.3 F 03/15/21 07:00 Pulse 86 03/15/21 07:00 Resp 16 03/15/21 07:00 BP 92/61 03/15/21 07:00 Pulse Ox 92 L 03/15/21 07:00 Intake & Output 03/14/21 03/15/21 03/15/21 18:59 06:59 18:59 Output Total 1000 Balance -1000 Weight 102 kg Output: Urine 1000 Other: # Voids 0 - Exam Gen: AOx3, NAD VSS stable at this time Integument: No obvious skin changes are present at the left shoulder, this can include open lesions Well-healed incision over the anterior aspect of the right-sided neck No obvious skin changes appreciated at the posterior aspect of cervical, thoracic or lumbar spine There is a small skin abrasion noted on the medial and lateral aspect of the left ankle Palpation: Patient is nontender with palpation along the midline, paraspinal regions of the cervical, thoracic or lumbar spine She has generalized tenderness surrounding the left shoulder with palpation No point tenderness is appreciated on exam of the right upper extremity or bilat eral lower extremities ROM: Range of motion was difficult to assess in the left upper extremity due to pain and use of arm sling Range of motion in all major muscle groups of the right upper extremity along with bilateral lower extremities are intact Sensory Exam: Senory exam to light touch is intact C5-T1 Senosry exam to light touch is intact L2-S1 Motor: 5 out of 5 strength is appreciated in the bilateral lower extremities with hip flexion, knee extension, knee flexion, plantar flexion, dorsiflexion, EHL, FHL 4/5 strength is appreciated in right upper extremity with regards to shoulder a bduction, forward elevation, elbow flexion, elbow extension, wrist extension, wrist flexion, finger intrinsics Strength was not assessed left upper extremity - Labs CBC & Chem 7: 03/14/21 01:43 03/14/21 01:43 Labs: Abnormal Lab Results - Last 24 Hours (Table) 03/14/21 03/14/21 03/14/21 Range/Units 01:43 12:39 17:40 POC Glucose (mg/dL) 203 H 138 H (75-99) mg/dL Urine Glucose (UA) 4+ H (Negative) 03/14/21 Range/Units 20:51 POC Glucose (mg/dL) 165 H (75-99) mg/dL Urine Glucose (UA) (Negative) Assessment and Plan Assessment: Displaced left humeral neck fracture Status post fall from standing History of recent anterior cervical fusion, October 2020, stable appearing hardware Multiple medical comorbidities Plan: I was able to discuss the case further with my attending Dr. Coffman in both the patient regarding possible surgical fixation. Due to the patient's symptoms, I feel that she is having a difficult time progressing with conservative measures especially with attempts being discharged home. We did discuss surgical options today, patient would like to proceed with surgical intervention. Patient has a high risk due to her peripheral arterial disease and cardiac disease. Cardiology will be consult further recommendations and clearance Computed tomography scan of the left shoulder will be ordered for further evaluation of bony prominences and surgical planning Nonweightbearing left upper extremity Recommend icing of the left shoulder often, utilizing arm sling at all times Other medical office technologist recommendations Surgical planning pending, hopeful surgery on either 03/16/2020 03/17/2021, further recommendations to follow Time with Patient: Less than 30
[2021-03-15] MEDS: PANTOPRAZOLE 40 MG TABLET PO SCH (09:18)
[2021-03-15] MEDS: POTASSIUM CHLORIDE ER 10 MEQ TAB.ER.PRT PO SCH ×2 (09:18→20:51)
[2021-03-15] MEDS: HYDROcodone/APAP 10-325MG 1 EACH TAB PO SCH ×4 (09:19→23:12)
[2021-03-15] MEDS: DULoxetine HCL 60 MG CAPSULE.DR PO SCH (09:19)
[2021-03-15] MEDS: GABAPENTIN 400 MG CAP PO SCH ×2 (09:19→20:51)
[2021-03-15] MEDS: MIDODRINE 5 MG TAB PO SCH ×2 (09:25→20:51)
[2021-03-15] MEDS: NON FORMULARY DRUG (Icosapent Ethyl [Icosapent Ethyl] 1 GM Capsule) PO SCH ×2 (09:29→18:35)
[2021-03-15] MEDS: INSULIN ASPART (NovoLOG) 100 UNIT/ML VIAL SQ SCH ×8 (09:29→20:51)
[2021-03-15] MEDS: NON FORMULARY DRUG (Semaglutide [Rybelsus] 14 MG Tablet) PO SCH ×2 (09:30→18:35)
[2021-03-15] MEDS: NON FORMULARY DRUG (Dapagliflozin Propanediol [Farxiga] 10 MG Tablet) PO SCH (09:31)
[2021-03-15 09:34] LABS: Basophils # (A) 0.06 X 10*3/uL (0.00-0.10); Basophils % (A) 0.5 %; Eosinophils # (A) 0.22 X 10*3/uL (0.04-0.35); Eosinophils % (A) 1.8 %; HCT 39.5 % (37.2-46.3); HGB 12.6 g/dL (12.0-15.0); Lymphocytes % (A) 19.6 %; MCH 28.6 pg (27.0-32.0); MCHC 31.9 g/dL (32.0-37.0); MCV 89.8 fL (80.0-97.0); Mean Platelet Volume 11.9 fL (9.5-12.2); Monocytes % (A) 6.5 %; Neutrophils # (A) 8.71 X 10*3/uL (1.80-7.70); Platelet Count 194 X 10*3/uL (140-440); RDW 15.9 % (11.5-14.5); WBC 12.26 X 10*3/uL (4.50-10.00)
--- NOTE | 2021-03-15 09:53 | CT ---
EXAMINATION TYPE: CT shoulder LT wo con DATE OF EXAM: 03/15/2021 COMPARISON: Plain film 03/14/2021 HISTORY: Fall, humerus fx CT DLP: 376.8 mGycm Automated exposure control for dose reduction was used. Helical imaging through the left shoulder. Th ree-dimensional reconstructions performed on an alternate workstation. FINDINGS: Comminuted displaced and impacted left humeral head fracture is present, no evident dislocation. Pain at apposition of the proximal humeral metaphysis is noted. There is soft tissue swelling present. In terstitial changes are present within the lungs. Atheromatous change present within the aorta. There are coronary artery calcifications. Postop changes are noted to the cervical spine. IMPRESSION: FINDINGS CORRELATE WITH PLAIN FILM. FRACTURE OF THE PROXIMAL LEFT HUMERUS DESCRIBED. Coronary sixto ry disease and additional findings above.
[2021-03-15 10:43] LABS: African American GFR (CKD) 63.6 (60.0-200.0); Albumin 3.2 g/dL (3.80-4.90); Albumin/Globulin Ratio 1.33 (1.60-3.17); Anion Gap 8.8 mmol/L (4.00-12.00); BUN/Creat Ratio 9.09 Ratio (12.00-20.00); Calcium 9.1 mg/dL (8.7-10.3); Carbon Dioxide 33.2 mmol/L (21.6-31.8); Globulin 2.4 g/dL (1.6-3.3); Magnesium 1.6 mg/dL (1.5-2.4); Non-African American GFR(CKD) 54.9 (60.0-200.0); Phosphorus 3.6 mg/dL (2.4-5.1); Potassium 3.3 mmol/L (3.5-5.5); Total Bilirubin 1.1 mg/dL (0.3-1.2); Total Protein 5.6 g/dL (6.2-8.2)
[2021-03-15 11:45] LABS: Glucose,Whole Blood 102 mg/dL (75-99)
--- NOTE | 2021-03-15 12:00 | P.PN ---
Subjective Progress Note Date: 03/15/21 HISTORY OF PRESENT ILLNESS This is a 60-year-old female patient of Dr. Tejeda and Dr. Bill with history of CAD with multiple cardiac stents in mid RCA, mid LAD, obtuse marginal branch and followed by Dr. Bill closely, peripheral artery disease with previous stenting done as well has amputation of the right great toe secondary to osteomyelitis, CVA with no residual deficits, hypertension, COPD, diabetes mellitus type 2, previous multiple DVT and PE requiring chronic anticoagulation on eliquis, history of GI bleed secondary to antral gastritis, esophagitis vitamin D deficiency, orthostatic hypotension on midodrine. Patient had a fall about 11:15 last evening. Patient states that she was getting up to go into the bathroom. She landed on her left arm. Her was unable to get her up and EMS was called. Patient has not been eating very much. She was recently started on Rybelsus and 7 mg twice daily and this was increased approximately one to 2 weeks ago to 14 mg. A1c 02/14/2021 was 9.6. Patient has had decreased appetite and taking Zofran. She states that she had EMG done last week at [facility] due to ongoing problems with balance and neuropathy. Patient was brought into [facility] emergency center for evaluation. Patient was afebrile, heart rate 105, blood pressure 139/90 and pulse ox 97% on room air. WBC 15.9, hemoglobin 16.3, platelet count 295. INR 1.6. Sodium 133, potassium 3.8, chloride 94, CO2 28, BUN 8 and creatinine 1.07. Blood sugar 301. Lactic acid initially 3.4 and repeat 1.7. Magnesium 1.3, total bilirubin 1.1, AST 51, ALT 25, alkaline phosphatase 111. Phosphorus 3.6. Albumin 3.4. Troponin negative. Left shoulder x-ray showed humeral neck fracture appears to be rotated and impacted. Chest x-ray is normal. CT of the brain was negative. No acute intracranial abnormality. CT of the cervical spine showed previous anterior fusion surgery. No fracture seen. Patient is status post 2.5 L of IV fluid, magnesium replacement, morphine and Dilaudid, admitted to the orthopedic service and we've been asked to follow the patient for medical management. Eliquis and aspirin placed on hold in case surgical intervention is necessary. 03/15: Patient complains of significant pain to the left arm. She states she was vomiting last evening. She denies passing gas or having a bowel movement. She denies fever. She has been seen by orthopedics this morning and plan is for cardiology consult for clearance for surgery scheduled on for open reduction internal fixation of the left proximal humerus fracture. Patient has been afebrile, heart rate 86, blood pressure 92/61, pulse ox 92% on room air. Sugars are running between 75 and 165. REVIEW OF SYSTEMS Constitutional: No fever, no chills, no night sweats. No weight change. No weakness, fatigue or lethargy. No daytime sleepiness. EENT: No headache. No dizziness. Reports difficulty swallowing. No nasal drainage or congestion. No epistaxis. No sore throat. Lungs: No shortness of breath, cough, no sputum production. No wheezing. Cardiovascular: No chest pain, no lower extremity edema. No palpitations. No paroxysmal nocturnal dyspnea. No orthopnea. No lightheadedness or dizziness. No syncopal episodes. Abdominal: Reports abdominal pain. Reports nausea, reports vomiting. Reports diarrhea. No constipation. No bloody or tarry stools. Reports loss of appetite. Genitourinary: No dysuria, increased frequency, urgency. No urinary retention. Musculoskeletal: No myalgias. No muscle weakness, reports balance dysfunction, reports gait dysfunction, reports frequent falls. No back pain. No neck pain. Pain left shoulder Integumentary: No wounds, no lesions. No rash or pruritus. No unusual bruising. No change in hair or nails. Neurologic: No aphasia. No facial droop. No change in mentation. No head injury. No headache. No paralysis. No paresthesia. Psychiatric: No depression. No anxiety. No mood swings. Endocrine: Mildly abnormal blood sugars. No weight change. No excessive sweating or thirst. No cold intolerance. PHYSICAL EXAMINATION Gen: This is a 60-year-old female. She is resting in bed and appears to be comfortable and in no acute distress. HEENT: Head is atraumatic, normocephalic. Pupils equal, round. Sclerae is a nicteric. Mucous members of the mouth are somewhat dry. Heart cervical collar in place. NECK: Supple. No JVD. No lymphadenopathy. No thyromegaly. LUNGS: Clear to auscultation. No wheezes or rhonchi. No intercostal retractions. 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 ABDOMEN: Soft. Bowel sounds are present. No masses. Left upper quadrant tenderness. EXTREMITIES: No pedal edema. No calf tenderness. Dorsalis pedis +1 bilateral ly. Left-sided arm sling in place. NEUROLOGICAL: Patient is awake, alert and oriented x3. Cranial nerves 2 through 12 are grossly intact. Muscle power 3/5 in the left upper extremity, 4/5 in the right upper extremity, 4/5 in the bilateral lower extremities. DTRs are depressed bilaterally. Neuropathic changes in both feet. ASSESSMENT AND PLAN 1. Left humerus fracture secondary to fall. Patient has been admitted to orthopedics. Continue pain management with [place] or Dilaudid, left arm sling in place. Eliquis and aspirin placed on hold in case surgical intervention is necessary. 2. Generalized weakness and balance dysfunction with workup in place outpatient and status post cervical disc fusion. 3. Diabetes mellitus type 2, uncontrolled with hyperglycemia. Continue Lantus 60 units at bedtime, Farxiga 10 mg daily, Rybelsus 14 mg twice daily, NovoLog scale before meals and at bedtime. 4. Coronary artery disease status post multiple PCI with ischemic cardiomyopathy. Continue Lasix 20 mg every 48 hours, and Lipitor 40 mg orally daily. 4. Hypertension and hypertensive cardiovascular disease. Continue Lasix. History of hypotension 5. Chronic DVT and PEs. Continue Eliquis 5 mg orally bid for life--on hold. 6. Orthostatic hypotension. Continue midodrine 5 mg twice daily. 7. Hyperlipidemia. Continue Lipitor 20 mg po daily. 8. Diabetic polyneuropathy. Continue gabapentin 800 mg 2 times daily . 9. Severe PAD. Continue Lipitor 20 mg orally daily, hold aspirin 81 mg daily. 10. Recurrent depression. Continue Cymbalta 60 mg daily. 11. GI prophylaxis. we will continue with Protonix 40 mg IV daily, 12. DVT prophylaxis. Hold Eliquis 5 mg orally bid. DISCHARGE PLAN Home on Saturday Impression and plan of care have been directed as dictated by the signing physician. Kerri Kevin nurse practitioner acting as scribe for signing physician. Objective - Vital Signs Vital signs: Vital Signs Temp 98.3 F 03/15/21 07:00 Pulse 86 08/11/21 07:00 Resp 16 03/15/21 07:00 BP 92/61 03/15/21 07:00 Pulse Ox 92 L 03/15/21 07:00 Intake & Output 03/14/21 03/15/21 03/15/21 18:59 06:59 18:59 Output Total 1000 Balance -1000 Weight 102 kg Output: Urine 1000 Other: # Voids 0 - Labs CBC & Chem 7: 03/15/21 04:31 03/15/21 04:31 Labs: Abnormal Lab Results - Last 24 Hours (Table) 03/14/21 03/14/21 03/14/21 Range/Units 01:43 12:39 17:40 POC Glucose (mg/dL) 203 H 138 H (75-99) mg/dL Urine Glucose (UA) 4+ H (Negative) 03/14/21 Range/Units 20:51 POC Glucose (mg/dL) 165 H (75-99) mg/dL Urine Glucose (UA) (Negative)
[2021-03-15 12:18] LABS: Prothrombin Time 10.4 sec (9.0-12.0)
--- NOTE | 2021-03-15 13:09 | P.CRDCN ---
History of Present Illness History of present illness: HISTORY OF PRESENTING ILLNESS This is a 60-year-old female with a past medical history significant for coronary artery disease with previous PCI in the mid RCA and mid LAD in 2014, COPD, DVT, hyperlipidemia, hypertension,type 2 diabetes, peripheral vascular disease, and nicotine dependence. Recent anterior cervical fusion that was done at a [facility] and was filled in December 2020. Patient follows in the office with Dr. Bill. We have been asked to see the patient in consultation for cardiac clearance for surgery. Patient presents emergency department status post fall at home. Patient apparently was trying to get to the bathroom she became dizzy and lightheaded and fell directly on her left shoulder. She denies any loss consciousness. She states she has been having episodes of dizziness, lightheadedness and then falling afterwards, this has been going on for years. Sometimes she states she loses consciousness and does not remember what happens. She denies room spinning. She states it happens when she stands up, and starts walking, she will feel lightheaded and needs to sit back down. She also states she has neuropathy and her legs are weak and this contributes to her falls when she feels her legs give out. She states she has been started on midodrine due to her low blood pressure, but she doesnt believe this is helping her symptoms. She denies any chest pain, shortness of breath, palpitations. She states she has had a heart monitor in the past, about over a year ago, and there were no acute findings/arrhythmia. Her was unable to get her off the floor, so she was transferred to [facility] for further evaluation. Computed tomography scan of the head/neck reveal no acute processes. Pelvis x-ray revealed no acute processes. X-rays of the left shoulder demonstrated a displaced left proximal humerus fracture involving the humeral neck. Orthopedics was consulted. Plan for possible open reduction and internal fixation left proximal humerus fracture with Ortho tomororow 03/16. DIAGNOSTICS EKG reveals sinus rhythm, heart rate 93, no significant STT wave abnormalities Most recent cardiac catheterization 08/26/2015- patent stents in the mid RCA, patent stent in the mid LAD. Left ventricular systolic function is mildly impaired with an EF around 40-45%. Most recent stress test 1Lexiscan- no evidence for reversible ischemia Most recent echocardiogram 08/30/2020 revealed ejection fraction 50-55%, moderate concentric LVH, left atrial is mildly dilated, mild mitral regurgitation Chest xray no acute cardiopulmonary process. Laboratory reviewed, WBC 12.2, hemoglobin 12.6, platelets 194, sodium 136, potassium 3.3, Current cardiac medications include rosuvastatin 10 mg nightly, potassium chloride 10 mg twice a day, aspirin 1 mg daily, midodrine 5 mg twice a day, Lasix 20 mg Q48 hours, Eliquis 5 mg twice a day. Patient is also on meclizine 12.5 mg daily when necessary. REVIEW OF SYSTEMS At the time of my exam: CONSTITUTIONAL: Denies fever or chills. +syncope CARDIOVASCULAR: Denies chest pain, shortness of breath, orthopnea, PND or palpitations. RESPIRATORY: Denies cough. GASTROINTESTINAL: Denies abdominal pain, diarrhea, constipation, nausea or vomiting. MUSCULOSKELETAL: Denies myalgias. NEUROLOGIC: +dizziness. +lightheadedness. Denies numbness, tingling, headacbe or weakness. ENDOCRINE: Denies fatigue, weight change, polydipsia or polyurina. GENITOURINARY: Denies burning, hematuria or urgency with micturation. HEMATOLOGIC: Denies history of anemia or bleeding. PHYSICAL EXAMINATION Blood pressure 92/61 heart rate 86 afebrile and maintaining oxygen saturation on room air CONSTITUTIONAL: No apparent distress. HEENT: Head is normocephalic. Pupils are equal, round. Sclerae anicteric. Mucous membranes of the mouth are moist. No JVD. No carotid bruit. CHEST EXAMINATION: Lungs are clear to auscultation. No chest wall tenderness is noted on palpation or with deep breathing. HEART EXAMINATION: Regular rate and rhythm. S1, S2 heard. No murmurs, gallops or rub. ABDOMEN: Soft, nontender. Positive bowel sounds. EXTREMITIES: 2+ peripheral pulses, no lower extremity edema and no calf tenderne ss. NEUROLOGIC EXAMINATION: Patient is awake, alert and oriented x3. ASSESSMENT Displaced left humeral neck fracture Fall at home Dizziness History of lightheadedness, dizziness and falls at home Coronary artery disease with previous PCI in the mid RCA and mid LAD in 2014 COPD History of DVT s/p IVC filter currently on eliquis Hyperlipidemia History of Hypertension August 2020 patient recently taken off ACEI and beta nisa secondary to hypotension Type 2 diabetes Peripheral vascular disease Nicotine dependence Recent anterior cervical fusion that was done at a [facility] and was filled in December 2020 PLAN -Patient with recent normal Lexiscan stress test and echocardiogram in 2020. -From a cardiology perspective, no absolute contraindications at this time to undergo surgery at this time. Patient may proceed with surgery with no additional cardiac testing or procedures. Patient is hemodynamically stable. -Continue home cardiac medications -Will monitor on cardiac telemetry Nurse Practitioner note has been reviewed, I agree with a documented findings and plan of care. Patient was seen and examined. Past Medical History Past Medical History: Coronary Artery Disease (CAD), Cancer, Chest Pain / Angina, COPD, CVA/TIA, Diabetes Mellitus, Deep Vein Thrombosis (DVT), GERD/Reflux, Hyperlipidemia, Hypertension, Myocardial Infarction (NH), Osteoarthritis (OA), Pulmonary Embolus (PE) Additional Past Medical History / Comment(s): SKIN CA. 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, NEUROPATHY LEGS & FEET, USING WALKER, .Mutiple DVT,mesentaric thrombosis x2 & PE, PAD, chronic pain syndrome, ddd lumbar region w/radiculopathy, HISTORY OF FALL 01/07/20 , tore rt rotator cuff, pancreatitis, fatty liver., Last Myocardial Infarction Date:: 2010 History of Any Multi-Drug Resistant Organisms: None Reported Past Surgical History: Section, Cholecystectomy, Heart Catheterization, Heart Catheterization With Stent, Orthopedic Surgery, Tonsillectomy, Tubal Ligation Additional Past Surgical History / Comment(s): 11 Stents in left leg, fistula left thigh, full mouth teeth extraction, TRAPEASE VENA CAVA FILTER, carpel tunnel, heart stents x4 rca and lad, tumor removal from uterus. Genital warts r emoved, INGRID. Skin cancer removed from neck, rt great toe amputated, colonoscopy Past Anesthesia/Blood Transfusion Reactions: No Reported Reaction, Motion Sickness Date of Last Stent Placement:: May 2016 Past Psychological History: Anxiety, Depression Additional Psychological History / Comment(s): Depression r/t health issues. Smoking Status: Current some day smoker Past Alcohol Use History: None Reported Additional Past Alcohol Use History / Comment(s): STARTED SMOKING IN 1993 SMOKES 1/2 PPD Past Drug Use History: None Reported - Past Family History Mother Family Medical History: Cancer, Congestive Heart Failure (CHF), Diabetes Ana itus, Myocardial Infarction (NH) Additional Family Medical History / Comment(s): UTERINE CANCER Father Family Medical History: Coronary Artery Disease (CAD), Myocardial Infarction (NH) Additional Family Medical History / Comment(s): Father at age 70. Sister(s) Family Medical History: Myocardial Infarction (NH) Additional Family Medical History / Comment(s): Patient has one sister with myocardial infarction at age 55. Son(s) Family Medical History: Deep Vein Thrombosis (DVT), Pulmonary Embolus Additional Family Medical History / Comment(s): Patient has 2 sons and one has history of DVT and pulmonary embolism. Medications and Allergies Home Medications Medication Instructions Recorded Confirmed Type Gabapentin 800 mg PO BID 12/14/13 03/14/21 History Ergocalciferol [Vitamin D2 50,000 unit PO Q14D 08/26/15 03/14/21 History (DRISDOL)] Insulin Lispro [humaLOG Kwikpen] 12 unit SQ ACHS 08/26/15 03/14/21 History Rosuvastatin [Crestor] 10 mg PO HS #0 10/01/16 03/14/21 Rx Apixaban [Eliquis] 5 mg PO BID #60 tab 10/23/18 03/14/21 Rx Aspirin [[place] Aspirin EC] 81 mg PO DAILY 09/07/19 03/14/21 History HYDROcodone/APAP 10-325MG [[place] 1 tab PO QID 10/13/19 03/14/21 History 10-325] Meclizine [Antivert] 12.5 mg PO DAILY PRN 08/29/20 03/14/21 History Albuterol Inhaler [Ventolin Hfa 2 puff INHALATION RT-QID PRN #1 11/09/20 03/14/21 Rx Inhaler] inhaler Ondansetron Odt [Zofran Odt] 4 mg PO Q8HR PRN #12 tab 01/17/21 03/14/21 Rx DULoxetine HCL [Cymbalta] 60 mg PO DAILY 03/14/21 03/14/21 History Dapagliflozin Propanediol [Farxiga] 10 mg PO DAILY 03/14/21 03/14/21 History Furosemide [Lasix] 20 mg PO Q48H 03/14/21 03/14/21 History Insulin Glargine [Lantus] 60 unit SQ HS 03/14/21 03/14/21 History Midodrine [ProAmatine] 5 mg PO BID 03/14/21 03/14/21 History Omeprazole [PriLOSEC] 20 mg PO DAILY 03/14/21 03/14/21 History Potassium Chloride [Klor-Con 10] 10 meq PO BID 03/14/21 03/14/21 History Semaglutide [Rybelsus] 14 mg PO AC-BID 03/14/21 03/14/21 History icosapent ethyL [Icosapent Ethyl] 2 gram PO BID-W/MEALS 03/14/21 03/14/21 History Allergies Allergy/AdvReac Type Severity Reaction Status Date / Time vancomycin Allergy Rash/Hives/and Verified 03/14/21 07:38 vomiting diarrhea/Swelling Physical Exam Vitals: Vital Signs Temp Pulse Pulse Pulse Resp BP BP 03/15/21 07:00 98.3 F 86 16 92/61 03/15/21 01:13 98.5 F 78 16 107/69 03/14/21 19:26 98.8 F 78 18 101/66 03/14/21 16:34 98.4 F 79 17 134/78 03/14/21 15:00 97.4 F L 70 18 138/81 03/14/21 13:34 98.5 F 81 16 130/82 Pulse Ox 03/15/21 07:00 92 L 03/15/21 01:13 91 L 03/14/21 19:26 94 L 03/14/21 16:34 94 L 03/14/21 15:00 96 03/14/21 13:34 94 L Intake and Output 03/14/21 03/15/21 03/15/21 22:59 06:59 14:59 Output Total 1000 Balance -1000 Output: Urine 1000 Other: # Voids 0 Weight 102 kg Results 03/15/21 04:31 03/15/21 04:31 CBC 03/15/21 Range/Units 04:31 WBC 12.26 H (4.50-10.00) X 10*3/uL RBC 4.40 (4.10-5.20) X 10*6/uL Hgb 12.6 (12.0-15.0) g/dL Hct 39.5 (37.2-46.3) % Plt Count 194 (140-440) X 10*3/uL Current Medications Generic Name Dose Route Start Last Admin Trade Name Freq PRN Reason Stop Dose Admin Hydrocodone Bitart/Acetaminophen 1 each 03/14/21 09:00 03/15/21 09:19 Hydrocodone/Apap 10-325mg 1 Each Tab PO 1 each QID AGNES Administration Albuterol Sulfate 2 puff 03/14/21 08:13 Albuterol Hfa Inhaler INHALATION RT-QID PRN Shortness Of Breath Atorvastatin Calcium 20 mg 03/14/21 21:00 03/14/21 22:14 Atorvastatin 20 Mg Tab PO 20 mg HS AGNES Administration Duloxetine HCl 60 mg 03/14/21 09:00 03/15/21 09:19 Duloxetine Hcl 60 Mg Capsule.Dr PO 60 mg DAILY AGNES Administration Enoxaparin Sodium 40 mg 03/15/21 09:00 Enoxaparin 40 Mg/0.4 Ml Syringe SQ DAILY AGNES Furosemide 20 mg 03/14/21 09:00 03/14/21 09:26 Furosemide 20 Mg Tab PO 20 mg Q48H AGNES Administration Gabapentin 800 mg 03/14/21 09:00 03/15/21 09:19 Gabapentin 400 Mg Cap PO 800 mg BID AGNES Administration Hydromorphone HCl 1 mg 03/14/21 02:48 03/15/21 05:14 Hydromorphone 1 Mg/Ml 1 Ml Syringe IVP 1 mg Q4HR PRN Administration Pain Lactated Ringer's 1,000 mls @ 20 mls/hr 03/15/21 10:00 Lactated Ringers IV .Q24H AGNES Insulin Aspart 12 unit 03/14/21 12:30 03/15/21 09:29 Insulin Aspart (Novolog) 100 Unit/Ml Vial SQ 12 unit ACHS AGNES Administration Insulin Aspart 0 unit 03/14/21 12:30 03/15/21 09:29 Insulin Aspart (Novolog) 100 Unit/Ml Vial SQ Not Given [facility] Protocol Insulin Detemir 60 unit 03/14/21 21:00 03/14/21 22:14 Insulin Detemir (Levemir) 100 Unit/Ml Syr SQ 60 unit HS AGNES Administration Meclizine HCl 12.5 mg 03/14/21 08:13 Meclizine 12.5 Mg Tab PO DAILY PRN Vertigo Midodrine 5 mg 03/14/21 09:00 03/15/21 09:25 Midodrine 5 Mg Tab PO 5 mg BID AGNES Administration Naloxone HCl 0.2 mg 03/14/21 02:58 Naloxone 0.4 Mg/Ml 1 Ml Vial IV Q2M PRN Opioid Reversal Non-Formulary Medication 10 mg 03/14/21 09:00 03/15/21 09:31 Dapagliflozin Propanediol [Farxiga] PO Not Given DAILY AGNES Non-Formulary Medication 2 gram 03/14/21 17:30 03/15/21 09:29 Icosapent Ethyl [Icosapent Ethyl] PO Not Given BID-W/MEALS AGNES Non-Formulary Medication 14 mg 03/14/21 17:30 03/15/21 09:30 Semaglutide [Rybelsus] PO Not Given AC-BID AGNES Ondansetron HCl 4 mg 03/14/21 02:58 Ondansetron 4 Mg/2 Ml Vial IVP Q8HR PRN Nausea And Vomiting Ondansetron HCl 4 mg 03/14/21 08:13 Ondansetron Odt 4 Mg Tab PO Q8HR PRN Nausea Pantoprazole Sodium 40 mg 03/14/21 09:00 03/15/21 09:18 Pantoprazole 40 Mg Tablet PO 40 mg DAILY@0730 AGNES Administration Potassium Chloride 10 meq 03/14/21 09:00 03/15/21 09:18 Potassium Chloride Er 10 Meq Tab.Er.Prt PO 10 meq BID AGNES Administration Intake and Output 03/14/21 03/15/21 03/15/21 22:59 06:59 14:59 Output Total 1000 Balance -1000 Output: Urine 1000 Other: # Voids 0 Weight 102 kg 03/15/21 04:31 03/14/21 01:43
[2021-03-15] MEDS: LACTATED RINGERS 1,000 ML IV SCH (13:12)
[2021-03-15] MEDS: ENOXAPARIN 40 MG/0.4 ML SYRINGE SQ SCH (13:13)
[2021-03-15 17:43] LABS: Glucose,Whole Blood 108 mg/dL (75-99)
[2021-03-15 20:02] LABS: Glucose,Whole Blood 121 mg/dL (75-99)
[2021-03-15] MEDS: ATORVASTATIN 20 MG TAB PO SCH (20:51)
[2021-03-15] MEDS: INSULIN DETEMIR (LEVEMIR) 100 UNIT/ML SYR SQ SCH (20:54)
[2021-03-16] MEDS: HYDROmorphone 1 MG/ML 1 ML SYRINGE IVP PRN ×2 (03:15→07:46)
[2021-03-16 07:58] LABS: Glucose,Whole Blood 182 mg/dL (75-99)
[2021-03-16 08:58] LABS: HCT 40.2 % (34.0-46.0); MCH 29.9 pg (25.0-35.0); MCHC 33.1 g/dL (31.0-37.0); MCV 90.3 fL (80.0-100.0); Mean Platelet Volume 9.1; Platelet Count 201 k/uL (150-450); RBC 4.45 m/uL (3.80-5.40); RDW 15.9 % (11.5-15.5); WBC 11.2 k/uL (3.8-10.6)
[2021-03-16 09:05] LABS: HGB 13.3 gm/dL (11.4-16.0)
[2021-03-16 09:16] LABS: ALT 27 U/L (4-34); AST 40 U/L (14-36); African American GFR (CKD) >90 (>60 ml/min/1.73 sqM); Albumin/Globulin Ratio 1.6; Alkaline Phosphatase 97 U/L (38-126); Anion Gap 10 mmol/L; Blood Urea Nitrogen 20 mg/dL (7-17); Calcium 9.3 mg/dL (8.4-10.2); Carbon Dioxide 22 mmol/L (22-30); Chloride 107 mmol/L (98-107); Globulin 2.5 g/dL; Glucose 110 mg/dL (74-99); Non-African American GFR(CKD) >90 (>60 ml/min/1.73 sqM); Potassium 3.5 mmol/L (3.5-5.1); Sodium 139 mmol/L (137-145); Total Bilirubin 0.6 mg/dL (0.2-1.3); Total Protein 6.5 g/dL (6.3-8.2)
[2021-03-16] MEDS: DULoxetine HCL 60 MG CAPSULE.DR PO SCH (09:24)
[2021-03-16] MEDS: PANTOPRAZOLE 40 MG TABLET PO SCH (09:24)
[2021-03-16] MEDS: GABAPENTIN 400 MG CAP PO SCH ×2 (09:25→21:51)
[2021-03-16] MEDS: POTASSIUM CHLORIDE ER 10 MEQ TAB.ER.PRT PO SCH ×2 (09:25→21:51)
[2021-03-16] MEDS: MIDODRINE 5 MG TAB PO SCH ×2 (09:25→21:27)
[2021-03-16] MEDS: HYDROcodone/APAP 10-325MG 1 EACH TAB PO SCH ×3 (09:26→21:51)
[2021-03-16] MEDS: NON FORMULARY DRUG (Icosapent Ethyl [Icosapent Ethyl] 1 GM Capsule) PO SCH ×2 (09:40→21:26)
[2021-03-16] MEDS: INSULIN ASPART (NovoLOG) 100 UNIT/ML VIAL SQ SCH ×7 (09:40→21:51)
[2021-03-16] MEDS: NON FORMULARY DRUG (Semaglutide [Rybelsus] 14 MG Tablet) PO SCH ×2 (09:41→21:27)
[2021-03-16] MEDS: NON FORMULARY DRUG (Dapagliflozin Propanediol [Farxiga] 10 MG Tablet) PO SCH (09:42)
[2021-03-16] MEDS: ENOXAPARIN 40 MG/0.4 ML SYRINGE SQ SCH (09:47)
[2021-03-16] MEDS ORDERED: LACTATED RINGERS 500 ML IV SCH (10:15)
--- NOTE | 2021-03-16 10:48 | P.PN ---
Subjective Progress Note Date: 03/16/21 HISTORY OF PRESENT ILLNESS: This is a 60-year-old female with a past medical history significant for coronary artery disease with previous PCI in the mid RCA and mid LAD in 2014, [place] PD, DVT, hyperlipidemia, hypertension,type 2 diabetes, peripheral vascular disease, and nicotine dependence. Recent anterior cervical fusion that was done at a [facility] and was filled in December 2020. Patient follows in the office with Dr. Bill. We have been asked to see the patient in consultation for cardiac clearance for surgery. Patient presents emergency department status post fall at home. Patient apparently was trying to get to the bathroom she became dizzy and lightheaded and fell directly on her left shoulder. She denies any loss consciousness. She states she has been having episodes of dizziness, lightheadedness and then falling afterwards, this has been going on for years. Sometimes she states she loses consciousness and does not remember what happens. She denies room spinning. She states it happens when she stands up, and starts walking, she will feel lightheaded and needs to sit back down. She also states she has neuropathy and her legs are weak and this contributes to her falls when she feels her legs give out. She states she has been started on midodrine due to her low blood pressure, but she doesnt believe this is helping her symptoms. She denies any chest pain, shortness of breath, palpitations. She states she has had a heart monitor in the past, about over a year ago, and there were no acute findings/arrhythmia. Her was unable to get her off the floor, so she was transferred to [facility] for further evaluation. Computed tomography scan of the head/neck reveal no acute processes. Pelvis x-ray revealed no acute processes. X-rays of the left shoulder demonstrated a displaced left proximal humerus fracture involving the humeral neck. Orthopedics was consulted. Plan for possible open reduction and internal fixation left proximal humerus fracture with Ortho tomororow 03/16. DIAGNOSTICS EKG reveals sinus rhythm, heart rate 93, no significant STT wave abnormalities Most recent cardiac catheterization 08/26/2015- patent stents in the mid RCA, patent stent in the mid LAD. Left ventricular systolic function is mildly impaired with an EF around 40-45%. Most recent stress test 1Lexiscan- no evidence for reversible ischemia Most recent echocardiogram 08/30/2020 revealed ejection fraction 50-55%, moderate concentric LVH, left atrial is mildly dilated, mild mitral regurgitation Chest xray no acute cardiopulmonary process. Laboratory reviewed, WBC 12.2, hemoglobin 12.6, platelets 194, sodium 136, potassium 3.3, Current cardiac medications include rosuvastatin 10 mg nightly, potassium chloride 10 mg twice a day, aspirin 1 mg daily, midodrine 5 mg twice a day, Lasix 20 mg Q48 hours, Eliquis 5 mg twice a day. Patient is also on meclizine 12.5 mg daily when necessary. Addendum entered and electronically signed by Alexis Yen DO 03/15/21 21:16: Patient with recurrent falls which appear related to standing and becoming lightheaded almost every time she stands. She states her legs will become weak and shaky. She also had chronic pain in her calfs and thighs (may be related to her neuropathy), however much worse with minimal activity such as walking around a grocery store. Do not suspect any arrhythmiogenic etiology and appears more perfusion related. There is a consideration of possible PAD causing her lower extremity weakness as she does have bilateral poor posterior tibial and dorsalis pedis pulses, with history of CAD, PAD, tobacco abuse. Most recent arterial ultrasound lower extremities from October 2015 and may consider repeating outpt. We will check orthostatic vitals. Continue with IV fluids given lactic acidosis and borderline blood pressure. Hold Lasix. May also consider workup of adrenal insufficiency as cause of abdominal pain and lightheadedness, obtain a.m. cortisol level. Continue with Midodrine. 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 AV fistula can cause high output failure or issues with hypotension however appears that the AV fistula has been thrombosed for some time. Patient also has significant decreased oral intake secondary to feeling nauseous and bloated and food coming up if she eats too much. She states then she will usually become nauseous, typically after showering however can happen at any time and then emesis. Discussed possibility of gastroparesis and does not believe she has had a gastric emptying study previously and no prior diagnosis. Reviewed workup from [facility] [place] [facility] with no mention of gastric emptying study or gastroparesis however would strongly consider given her history of uncontrolled diabetes, symptoms and neuropathy. This may be performed on an outpatient basis, may consider Reglan. Symptoms are not classic for chronic mesenteric ischemia with prior CAT scan rev iewed and no obvious stenosis around the mesenteric arteries and this appears less likely. Patient with multiple medical problems, multiple comorbidities, coronary artery disease and significant debility. Patient denies any current angina-type symptoms. Patient is high risk however had recent echocardiogram and stress test in August 2020 without significant abnormalities and tolerated recent c ervical surgery. Patient is high risk for proposed surgery however appears reasonable candidate and benefits appear to outweigh the risks. Discussed with patient and patient understanding. Patient cleared from cardiology standpoint for proposed surgery. 03/16/2021 Patient examined this morning. She is sitting up in the chair. Sling to left arm present. Patient denies chest pain or pressure. Denies shortness of breath. She is scheduled for surgery today with orthopedics. Blood pressure this morning supine 105/70. Blood pressure sitting 76/61. Cortisol level 16. PHYSICAL EXAM: VITAL SIGNS: Reviewed. GENERAL: Well-developed in no acute distress. NECK: Supple. No JVD or thyromegaly LUNGS: Respirations even and unlabored. Lungs essentially clear to auscultation bilaterally. HEART: Regular rate and rhythm. S1 and S2 heard. EXTREMITIES: Normal range of motion. No clubbing or cyanosis. Peripheral pulses intact. No lower extremity edema ASSESSMENT: Displaced left humeral neck fracture Orthostatic hypotension Fall at home Dizziness History of lightheadedness, dizziness and falls at home Coronary artery disease with previous PCI in the mid RCA and mid LAD in 2014 COPD History of DVT s/p IVC filter currently on eliquis Hyperlipidemia History of Hypertension August 2020 patient recently taken off ACEI and beta nisa secondary to hypotension Type 2 diabetes Peripheral vascular disease Nicotine dependence Recent anterior cervical fusion that was done at a [facility] PLAN: AMANDEEP hose to bilateral lower extremities Discontinue Lasix Increase Midodrine to 10mg IVF fluids at 80cc/hr following a 500cc fluid bolus Continue to monitor blood pressure. Will consider adding Florinef Patient scheduled for surgery today with orthopedics Further recommendations pending patient course Nurse practitioner note has been reviewed by physician. Signing provider agrees with the documented findings, assessment, and plan of care. Objective - Vital Signs Vital signs: Vital Signs Temp 97.9 F 03/16/21 08:00 Pulse 82 03/16/21 09:31 Resp 16 03/16/21 08:00 BP 79/61 03/16/21 09:36 Pulse Ox 98 03/16/21 08:00 Intake & Output 03/15/21 03/16/21 03/16/21 18:59 06:59 18:59 Weight 111 kg Other: Voiding Method Bedside Commode # Voids 1 1 - Labs CBC & Chem 7: 03/16/21 08:21 03/16/21 08:17 Labs: Abnormal Lab Results - Last 24 Hours (Table) 03/15/21 03/15/21 03/15/21 Range/Units 04:31 11:43 17:40 WBC (3.8-10.6) k/uL RDW (11.5-15.5) % Potassium 3.3 L (3.5-5.5) mmol/L Chloride 94 L (96-109) mmol/L Carbon Dioxide 33.2 H (21.6-31.8) mmol/L BUN (7-17) mg/dL Est GFR (CKD-EPI)NonAf 54.9 L (60.0-200.0) BUN/Creatinine Ratio 9.09 L (12.00-20.00) Ratio Glucose (74-99) mg/dL POC Glucose (mg/dL) 102 H 108 H (75-99) mg/dL AST 47 H (13-35) U/L Total Protein 5.6 L (6.2-8.2) g/dL Albumin 3.20 L (3.80-4.90) g/dL Albumin/Globulin Ratio 1.33 L (1.60-3.17) g/dL 03/15/21 03/16/21 03/16/21 Range/Units 20:00 07:56 08:17 WBC (3.8-10.6) k/uL RDW (11.5-15.5) % Potassium (3.5-5.5) mmol/L Chloride (96-109) mmol/L Carbon Dioxide (21.6-31.8) mmol/L BUN 20 H (7-17) mg/dL Est GFR (CKD-EPI)NonAf (60.0-200.0) BUN/Creatinine Ratio (12.00-20.00) Ratio Glucose 110 H (74-99) mg/dL POC Glucose (mg/dL) 121 H 182 H (75-99) mg/dL AST 40 H (13-35) U/L Total Protein (6.2-8.2) g/dL Albumin (3.80-4.90) g/dL Albumin/Globulin Ratio (1.60-3.17) g/dL 03/16/21 Range/Units 08:21 WBC 11.2 H (3.8-10.6) k/uL RDW 15.9 H (11.5-15.5) % Potassium (3.5-5.5) mmol/L Chloride (96-109) mmol/L Carbon Dioxide (21.6-31.8) mmol/L BUN (7-17) mg/dL Est GFR (CKD-EPI)NonAf (60.0-200.0) BUN/Creatinine Ratio (12.00-20.00) Ratio Glucose (74-99) mg/dL POC Glucose (mg/dL) (75-99) mg/dL AST (13-35) U/L Total Protein (6.2-8.2) g/dL Albumin (3.80-4.90) g/dL Albumin/Globulin Ratio (1.60-3.17) g/dL
[2021-03-16 11:40] LABS: Glucose,Whole Blood 205 mg/dL (75-99)
--- NOTE | 2021-03-16 12:08 | P.PN ---
Subjective Progress Note Date: 03/16/21 HISTORY OF PRESENT ILLNESS This is a 60-year-old female patient of Dr. Tejeda and Dr. Bill with history of CAD with multiple cardiac stents in mid RCA, mid LAD, obtuse marginal branch and followed by Dr. Bill closely, peripheral artery disease with previous stenting done as well has amputation of the right great toe secondary to osteomyelitis, CVA with no residual deficits, hypertension, COPD, diabetes mellitus type 2, previous multiple DVT and PE requiring chronic anticoagulation on eliquis, history of GI bleed secondary to antral gastritis, esophagitis vitamin D deficiency, orthostatic hypotension on midodrine. Patient had a fall about 11:15 last evening. Patient states that she was getting up to go into the bathroom. She landed on her left arm. Her was unable to get her up and EMS was called. Patient has not been eating very much. She was recently started on Rybelsus and 7 mg twice daily and this was increased approximately one to 2 weeks ago to 14 mg. A1c 02/14/2021 was 9.6. Patient has had decreased appetite and taking Zofran. She states that she had EMG done last week at [facility] due to ongoing problems with balance and neuropathy. Patient was brought into [facility] emergency center for evaluation. Patient was afebrile, heart rate 105, blood pressure 139/90 and pulse ox 97% on room air. WBC 15.9, hemoglobin 16.3, platelet count 295. INR 1.6. Sodium 133, potassium 3.8, chloride 94, CO2 28, BUN 8 and creatinine 1.07. Blood sugar 301. Lactic acid initially 3.4 and repeat 1.7. Magnesium 1.3, total bilirubin 1.1, AST 51, ALT 25, alkaline phosphatase 111. Phosphorus 3.6. Albumin 3.4. Troponin negative. Left shoulder x-ray showed humeral neck fracture appears to be rotated and impacted. Chest x-ray is normal. CT of the brain was negative. No acute intracranial abnormality. CT of the cervical spine showed previous anterior fusion surgery. No fracture seen. Patient is status post 2.5 L of IV fluid, magnesium replacement, morphine and Dilaudid, admitted to the orthopedic service and we've been asked to follow the patient for medical management. Eliquis and aspirin placed on hold in case surgical intervention is necessary. 03/15: Patient complains of significant pain to the left arm. She states she was vomiting last evening. She denies passing gas or having a bowel movement. She denies fever. She has been seen by orthopedics this morning and plan is for cardiology consult for clearance for surgery scheduled on for open reduction internal fixation of the left proximal humerus fracture. Patient has been afebrile, heart rate 86, blood pressure 92/61, pulse ox 92% on room air. Sugars are running between 75 and 165. 03/16: Patient denies any chest pain or shortness of breath. She still is having nausea on and off and feels tired. Patient has been seen by cardiology and cleared for surgery, midodrine increased to 10 mg and Lasix discontinued. Patient started on IV fluids and 500 mL fluid bolus. She remains afebrile, heart rate 100, blood pressure 104/71, pulse ox 98% on room air. Orthostatic vital signs were positive. WBC 11.2, hemoglobin 13.3, platelet count 201. Electrolytes are normal. BUN 20 and creatinine 0.72. Blood sugars running bet ween 110 and 205. AST 40 otherwise liver function tests are normal. Cortisol level XVI. REVIEW OF SYSTEMS Constitutional: No fever, no chills, no night sweats. No weight change. No weakness, reports fatigue or lethargy. No daytime sleepiness. EENT: No headache. No dizziness. Reports difficulty swallowing. No nasal drainage or congestion. No epistaxis. No sore throat. Lungs: No shortness of breath, cough, no sputum production. No wheezing. Cardiovascular: No chest pain, no lower extremity edema. No palpitations. No paroxysmal nocturnal dyspnea. No orthopnea. No lightheadedness or dizziness. No syncopal episodes. Abdominal: Reports abdominal pain. Reports nausea, denies vomiting. Denies diarrhea. No constipation. No bloody or tarry stools. Reports loss of appetite. Genitourinary: No dysuria, increased frequency, urgency. No urinary retention. Musculoskeletal: No myalgias. No muscle weakness, reports balance dysfunction, reports gait dysfunction, reports frequent falls. No back pain. No neck pain. Pain left shoulder Integumentary: No wounds, no lesions. No rash or pruritus. No unusual bruising. No change in hair or nails. Neurologic: No aphasia. No facial droop. No change in mentation. No head injury. No headache. No paralysis. No paresthesia. Psychiatric: No depression. No anxiety. No mood swings. Endocrine: Mildly abnormal blood sugars. No weight change. No excessive sweating or thirst. No cold intolerance. PHYSICAL EXAMINATION Gen: This is a 60-year-old female. She is resting in bed and appears to be comfortable and in no acute distress. HEENT: Head is atraumatic, normocephalic. Pupils equal, round. Sclerae is anicteric. Mucous members of the mouth are somewhat dry. NECK: Supple. No JVD. No lymphadenopathy. No thyromegaly. LUNGS: Clear to auscultation. No wheezes or rhonchi. No intercostal retractions. 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 ABDOMEN: Soft. Bowel sounds are present. No masses. Left upper quadrant tenderness. EXTREMITIES: No pedal edema. No calf tenderness. Dorsalis pedis +1 bi laterally. Left-sided arm sling in place. NEUROLOGICAL: Patient is awake, alert and oriented x3. Cranial nerves 2 through 12 are grossly intact. Neuropathic changes in both feet. ASSESSMENT AND PLAN 1. Left humerus fracture secondary to fall. Patient is scheduled for ORIF of the left proximal humerus fracture today Patient has been admitted to orthopedics. Continue pain management with [place] or Dilaudid, left arm sling in place. Eliquis and aspirin placed on hold 2. Generalized weakness and balance dysfunction with workup in place outpatient and status post cervical disc fusion. 3. Diabetes mellitus type 2, uncontrolled with hyperglycemia. Continue Lantus 60 units at bedtime, Farxiga 10 mg daily, Rybelsus 14 mg twice daily, NovoLog scale before meals and at bedtime. 4. Coronary artery disease status post multiple PCI with ischemic cardiomyopathy. Discontinue Lasix, continue Lipitor 40 mg orally daily. 4. Hypertension and hypertensive cardiovascular disease. Hold Lasix. History of hypotension 5. Chronic DVT and PEs. Continue Eliquis 5 mg orally bid for life--on hold. 6. Orthostatic hypotension. Continue midodrine increased to 10 mg twice daily. 7. Hyperlipidemia. Continue Lipitor 20 mg po daily. 8. Diabetic polyneuropathy. Continue gabapentin 800 mg 2 times daily . 9. Severe PAD. Continue Lipitor 20 mg orally daily, hold aspirin 81 mg daily. 10. Recurrent depression. Continue Cymbalta 60 mg daily. 11. GI prophylaxis. we will continue with Protonix 40 mg IV daily, 12. DVT prophylaxis. Hold Eliquis 5 mg orally bid. DISCHARGE PLAN Home on Saturday, possible need for rehab Impression and plan of care have been directed as dictated by the signing physic ian. Kerri Kevin nurse practitioner acting as scribe for signing physician. Objective - Vital Signs Vital signs: Vital Signs Temp 98.4 F 03/16/21 02:00 Pulse 79 03/16/21 02:00 Resp 16 03/16/21 02:00 BP 104/66 03/16/21 02:00 Pulse Ox 94 L 03/16/21 02:00 Intake & Output 03/15/21 03/16/21 03/16/21 18:59 06:59 18:59 Weight 111 kg Other: Voiding Method Bedside Commode # Voids 1 1 - Labs CBC & Chem 7: 03/16/21 08:21 03/16/21 08:17 Labs: Abnormal Lab Results - Last 24 Hours (Table) 03/15/21 03/15/21 03/15/21 Range/Units 04:31 04:31 11:43 WBC 12.26 H (4.50-10.00) X 10*3/uL MCHC 31.9 L (32.0-37.0) g/dL RDW 15.9 H (11.5-14.5) % Immature Gran # 0.07 H (0.00-0.04) X 10*3/uL Neutrophils # 8.71 H (1.80-7.70) X 10*3/uL Potassium 3.3 L (3.5-5.5) mmol/L Chloride 94 L (96-109) mmol/L Carbon Dioxide 33.2 H (21.6-31.8) mmol/L Est GFR (CKD-EPI)NonAf 54.9 L (60.0-200.0) BUN/Creatinine Ratio 9.09 L (12.00-20.00) Ratio POC Glucose (mg/dL) 102 H (75-99) mg/dL AST 47 H (13-35) U/L Total Protein 5.6 L (6.2-8.2) g/dL Albumin 3.20 L (3.80-4.90) g/dL Albumin/Globulin Ratio 1.33 L (1.60-3.17) g/dL 03/15/21 03/15/21 03/16/21 Range/Units 17:40 20:00 07:56 WBC (4.50-10.00) X 10*3/uL MCHC (32.0-37.0) g/dL RDW (11.5-14.5) % Immature Gran # (0.00-0.04) X 10*3/uL Neutrophils # (1.80-7.70) X 10*3/uL Potassium (3.5-5.5) mmol/L Chloride (96-109) mmol/L Carbon Dioxide (21.6-31.8) mmol/L Est GFR (CKD-EPI)NonAf (60.0-200.0) BUN/Creatinine Ratio (12.00-20.00) Ratio POC Glucose (mg/dL) 108 H 121 H 182 H (75-99) mg/dL AST (13-35) U/L Total Protein (6.2-8.2) g/dL Albumin (3.80-4.90) g/dL Albumin/Globulin Ratio (1.60-3.17) g/dL
[2021-03-16] MEDS: LACTATED RINGERS 1,000 ML IV SCH (13:10)
[2021-03-16 13:37] LABS: Glucose,Whole Blood 212 mg/dL (75-99)
[2021-03-16] MEDS ORDERED: ONDANSETRON 4 MG/2 ML VIAL IVP ONE ×2 (13:43→17:51)
[2021-03-16] MEDS ORDERED: DEXAMETHASONE SOD PHOSPHATE 4 MG/ML 1 ML VIAL IVP ONE (13:43)
[2021-03-16] MEDS ORDERED: INSULIN ASPART (NovoLOG) 100 UNIT/ML VIAL SQ ONE (13:44)
[2021-03-16] MEDS ORDERED: SODIUM CHLORIDE 0.9% 100 ML BAG ONE (15:06)
[2021-03-16] MEDS ORDERED: PROPOFOL 10 MG/ML 20 ML VIAL IV ONE (15:06)
[2021-03-16] MEDS ORDERED: NEOSTIGMINE 1 MG/ML 10 ML VIAL ONE (15:06)
[2021-03-16] MEDS ORDERED: MIDAZOLAM 2 MG/2 ML VIAL ONE (15:06)
[2021-03-16] MEDS ORDERED: LIDOCAINE 1% INJ 10MG/ML (20 ML MDV) ONE (15:06)
[2021-03-16] MEDS ORDERED: fentaNYL (PF) 50 MCG/ML 2 ML AMP ONE (15:06)
[2021-03-16] MEDS ORDERED: GLYCOPYRROLATE 0.2 MG/ML 2 ML VIAL ONE (15:06)
[2021-03-16] MEDS ORDERED: SUCCINYLCHOLINE CHLORIDE 100 MG/5 ML SYR IV ONE (15:06)
[2021-03-16] MEDS ORDERED: ceFAZolin 1,000 MG VIAL ONE (15:06)
[2021-03-16] MEDS ORDERED: ROCURONIUM 10 MG/ML (5 ML VIAL) IV ONE (15:06)
[2021-03-16] MEDS ORDERED: HYDROmorphone (PF) 1 MG/ML ONE (15:06)
--- NOTE | 2021-03-16 17:20 | P.OP ---
Date of Procedure: 03/16/21 Preoperative Diagnosis: Displaced left proximal humerus fracture3 part Postoperative Diagnosis: Same Procedure(s) Performed: Left shoulder hemiarthroplastycemented Implants: Depuy Global size 8 long cemented Global fracture stem with -5 metaphyseal segment, 44 x 18 mm standard humeral head. Anesthesia: MACHELLE Surgeon: Turner Coffman [employer] Sorter #1: Romeo Perez Estimated Blood Loss (ml): 150 Pathology: other (Humeral head) Condition: stable Disposition: PACU Indications for Procedure: The patient's a 60-year-old female presents after a recent fall with a closed 3 part displaced proximal humerus fracture. A discussion the risks and benefits of operative intervention was made with patient and her family. She opted to proceed with surgery. Operative options were discussed including open reduction and internal fixation versus hemiarthroplasty. With the degree of initial displacement and metaphyseal involvement, it was elected to proceed with hemiarthroplasty. Specific risks of surgery to include infection, neurovascular injury, development of blood clots, instability, possible development of nonunion the tuberosities and need for subsequent procedures was discussed. Informed consent was obtained. Operative Findings: As below Description of Procedure: The patient was brought to the operating room, and after induction of general anesthesia was placed in a beachchair position. Bony prominences were appropriately padded. The left upper extremity was prepped and draped in normal fashion. A deltopectoral incision was then made just lateral to the coracoid process extending approximately 10 cm. Skin was incised sharply. Subcutaneous tissues were divided bluntly. Electrocautery was used for hemostasis. The deltopectoral interval was identified and the cephalic vein was gently retracted laterally with the deltoid. Subdeltoid adhesions were bluntly dissected. A self-retaining retractor was placed. The upper one third of the pectoralis leticia r was released to help facilitate exposure. The conjoined tendon was gently retracted medially. The biceps was identified and the interval was opened. The biceps was tenotomized and allowed to retract distally. The greater tuberosity fragment was identified. A sagittal saw was used to mobilize the lesser tuberosity. This was tagged with #2 Ethibond suture. The greater tuberosity was tagged a similar fashion. These were then mobilized. The glenoid was inspected. The biceps was released from the superior glenoid. Attention was then paid towards preparing the proximal humerus. The canal was reamed by hand up to a size 8. There is good distal chatter. Upon noninvolvement stem. A reduction clamp was placed and the proximal humerus in 30 of retroversion. A trial size 8 long humeral stem along with a -5 metaphyseal segment was then attached to the clamp. The shoulder was gently reduced with a 44 x 18 standard trial head. I felt I had good taoism of soft tissue tension and overall alignment. This was then gently dislocated. The trial components were then removed. The canal was prepared and the cement was pressurized by hand. Excess cement was removed. The stem was inserted and the clamp was used to hold it in the same alignment. After the cement had sufficiently hardened, the clamp was then removed. Trial reduction was again obtained with a 44 x 18 standard trial head. Again I felt that adequate taoism of soft tissue tension and overall alignment. She'll was gently dislocated. The final head was gently impacted. Pulsatile lavage was utilized. The shoulder was reduced. The greater and lesser tuberosities were reattached to themselves with #2 Ethibond suture into the shaft with the previously placed #2 Ethibond suture. The rotator interval was closed with #2 Ethibond suture. The subcutaneous tissues reapproximated interrupted 2-0 Vicryl sutures. Skin was reapproximated with 3-0 subcuticular Prolene suture. Steri-Strips were applied along with a sling. The patient was then awoken from general anesthesia and transferred to recovery room in good condition. Blood loss was estimated at 150 mL. No complications were incurred. Sponge and needle counts were correct in the case. Reji HUTTON assisted during the major components the case to include positioning, exposure, implantation, and closure.
[2021-03-16] MEDS ORDERED: IV FLUID CONTINUATION 1,000 ML IV ONE (17:21)
--- NOTE | 2021-03-16 17:39 | XR ---
Result: Clinical History: Postoperative shoulder. Comparison: 03/14/2021. Technique: AP view of the left shoulder. Findings: There is interval left shoulder hemiarthroplasty for treatment of prior humeral neck fracture. Prosth esis is well seated. Alignment is anatomic. No new fracture. Impression: Status post left shoulder hemiarthroplasty.
[2021-03-16] MEDS ORDERED: HYDROmorphone 0.5 MG/0.5 ML SYRINGE IVP ONE (17:46)
[2021-03-16 18:17] LABS: Glucose,Whole Blood 195 mg/dL (75-99)
[2021-03-16 21:19] LABS: Glucose,Whole Blood 223 mg/dL (75-99)
[2021-03-16] MEDS: ATORVASTATIN 20 MG TAB PO SCH (21:50)
[2021-03-16] MEDS: INSULIN DETEMIR (LEVEMIR) 100 UNIT/ML SYR SQ SCH (21:52)
[2021-03-17] MEDS: HYDROmorphone 1 MG/ML 1 ML SYRINGE IVP PRN ×2 (06:00→11:22)
[2021-03-17 06:58] LABS: ALT 29 U/L (4-34); AST 50 U/L (14-36); African American GFR (CKD) >90 (>60 ml/min/1.73 sqM); Albumin 2.7 g/dL (3.5-5.0); Alkaline Phosphatase 81 U/L (38-126); Anion Gap 10 mmol/L; Blood Urea Nitrogen 11 mg/dL (7-17); Calcium 9.1 mg/dL (8.4-10.2); Carbon Dioxide 26 mmol/L (22-30); Chloride 98 mmol/L (98-107); Globulin 2.8 g/dL; Glucose 188 mg/dL (74-99); Non-African American GFR(CKD) 80 (>60 ml/min/1.73 sqM); Potassium 4.3 mmol/L (3.5-5.1); Sodium 134 mmol/L (137-145); Total Bilirubin 0.8 mg/dL (0.2-1.3); Total Protein 5.5 g/dL (6.3-8.2)
[2021-03-17] MEDS: LACTATED RINGERS 1,000 ML IV SCH ×4 (07:03→12:00)
[2021-03-17 07:22] LABS: Glucose,Whole Blood 202 mg/dL (75-99)
[2021-03-17] MEDS: INSULIN ASPART (NovoLOG) 100 UNIT/ML VIAL SQ SCH ×8 (07:27→21:08)
[2021-03-17] MEDS: PANTOPRAZOLE 40 MG TABLET PO SCH (08:34)
[2021-03-17] MEDS: APIXABAN 5 MG TAB PO SCH ×2 (08:34→21:07)
[2021-03-17] MEDS: POTASSIUM CHLORIDE ER 10 MEQ TAB.ER.PRT PO SCH ×2 (08:34→21:09)
[2021-03-17] MEDS: DULoxetine HCL 60 MG CAPSULE.DR PO SCH (08:34)
[2021-03-17] MEDS: MIDODRINE 5 MG TAB PO SCH ×3 (08:34→17:15)
[2021-03-17] MEDS: GABAPENTIN 400 MG CAP PO SCH ×2 (08:34→21:07)
[2021-03-17] MEDS: HYDROcodone/APAP 10-325MG 1 EACH TAB PO SCH ×4 (08:34→21:08)
[2021-03-17] MEDS: NON FORMULARY DRUG (Icosapent Ethyl [Icosapent Ethyl] 1 GM Capsule) PO SCH ×2 (08:36→17:14)
[2021-03-17] MEDS: NON FORMULARY DRUG (Semaglutide [Rybelsus] 14 MG Tablet) PO SCH ×2 (08:36→17:17)
[2021-03-17] MEDS: NON FORMULARY DRUG (Dapagliflozin Propanediol [Farxiga] 10 MG Tablet) PO SCH (08:36)
[2021-03-17 09:50] LABS: HGB 11.2 g/dL (12.0-15.0); MCH 28.9 pg (27.0-32.0); MCV 90.2 fL (80.0-97.0); Mean Platelet Volume 11.6 fL (9.5-12.2); Platelet Count 237 X 10*3/uL (140-440); RBC 3.88 X 10*6/uL (4.10-5.20); RDW 15.7 % (11.5-14.5); WBC 18.14 X 10*3/uL (4.50-10.00)
--- NOTE | 2021-03-17 11:43 | P.PN ---
Subjective Progress Note Date: 03/17/21 HISTORY OF PRESENT ILLNESS This is a 60-year-old female patient of Dr. Tejeda and Dr. Bill with history of CAD with multiple cardiac stents in mid RCA, mid LAD, obtuse marginal branch and followed by Dr. Bill closely, peripheral artery disease with previous stenting done as well has amputation of the right great toe secondary to osteomyelitis, CVA with no residual deficits, hypertension, COPD, diabetes mellitus type 2, previous multiple DVT and PE requiring chronic anticoagulation on eliquis, history of GI bleed secondary to antral gastritis, esophagitis vitamin D deficiency, orthostatic hypotension on midodrine. Patient had a fall about 11:15 last evening. Patient states that she was getting up to go into the bathroom. She landed on her left arm. Her was unable to get her up and EMS was called. Patient has not been eating very much. She was recently started on Rybelsus and 7 mg twice daily and this was increased approximately one to 2 weeks ago to 14 mg. A1c 02/14/2021 was 9.6. Patient has had decreased appetite and taking Zofran. She states that she had EMG done last week at [facility] due to ongoing problems with balance and neuropathy. Patient was brought into [facility] emergency center for evaluation. Patient was afebrile, heart rate 105, blood pressure 139/90 and pulse ox 97% on room air. WBC 15.9, hemoglobin 16.3, platelet count 295. INR 1.6. Sodium 133, potassium 3.8, chloride 94, CO2 28, BUN 8 and creatinine 1.07. Blood sugar 301. Lactic acid initially 3.4 and repeat 1.7. Magnesium 1.3, total bilirubin 1.1, AST 51, ALT 25, alkaline phosphatase 111. Phosphorus 3.6. Albumin 3.4. Troponin negative. Left shoulder x-ray showed humeral neck fracture appears to be rotated and impacted. Chest x-ray is normal. CT of the brain was negative. No acute intracranial abnormality. CT of the cervical spine showed previous anterior fusion surgery. No fracture seen. Patient is status post 2.5 L of IV fluid, magnesium replacement, morphine and Dilaudid, admitted to the orthopedic service and we've been asked to follow the patient for medical management. Eliquis and aspirin placed on hold in case surgical intervention is necessary. 03/15: Patient complains of significant pain to the left arm. She states she was vomiting last evening. She denies passing gas or having a bowel movement. She denies fever. She has been seen by orthopedics this morning and plan is for cardiology consult for clearance for surgery scheduled on for open reduction internal fixation of the left proximal humerus fracture. Patient has been afebrile, heart rate 86, blood pressure 92/61, pulse ox 92% on room air. Sugars are running between 75 and 165. 03/16: Patient denies any chest pain or shortness of breath. She still is having nausea on and off and feels tired. Patient has been seen by cardiology and cleared for surgery, midodrine increased to 10 mg and Lasix discontinued. Patient started on IV fluids and 500 mL fluid bolus. She remains afebrile, heart rate 100, blood pressure 104/71, pulse ox 98% on room air. Orthostatic vital signs were positive. WBC 11.2, hemoglobin 13.3, platelet count 201. Electrolytes are normal. BUN 20 and creatinine 0.72. Blood sugars running bet ween 110 and 205. AST 40 otherwise liver function tests are normal. Cortisol level XVI. 03/17: Yesterday, patient underwent left shoulder hemiarthroplasty for displaced left proximal humerus fracture. The patient continues to have pain in the area and difficulty getting comfortable. She is still not eating very much. Patient has been afebrile, heart rate 86, blood pressure 121/71, pulse ox 93% on room air. Blood work today reveals WBC 18.1, hemoglobin 11.2, platelet count 237. Sodium 134, potassium 5.3, chloride 98, CO2 26, BUN 11 creatinine 0.8. Blood sugars are running between 188 and 223. AST 50, ALT 29, alkaline phosphatase 81. Patient has been seen by PT and OT with recommendations for subacute rehab and patient has chosen . Most likely patient will be here until Saturday to get pain control. Ice will be added to apply to the left shoulder, incentive spirometry added, patient is wearing AMANDEEP hose and on chronic eliquis. REVIEW OF SYSTEMS Constitutional: No fever, no chills, no night sweats. No weight change. No weakness, reports fatigue or lethargy. No daytime sleepiness. EENT: No headache. No dizziness. Reports difficulty swallowing. No nasal drainage or congestion. No epistaxis. No sore throat. Lungs: No shortness of breath, cough, no sputum production. No wheezing. Cardiovascular: No chest pain, no lower extremity edema. No palpitations. No paroxysmal nocturnal dyspnea. No orthopnea. No lightheadedness or dizziness. No syncopal episodes. Abdominal: Denies abdominal pain. Reports nausea, denies vomiting. Denies diarrhea. No constipation. No bloody or tarry stools. Reports loss of appetite. Genitourinary: No dysuria, increased frequency, urgency. No urinary retention. Musculoskeletal: No myalgias. No muscle weakness, reports balance dysfunction, reports gait dysfunction, reports frequent falls. No back pain. No neck pain. Pain left shoulder Integumentary: No wounds, no lesions. No rash or pruritus. No unusual bruising. No change in hair or nails. Neurologic: No aphasia. No facial droop. No change in mentation. No head injury. No headache. No paralysis. No paresthesia. Psychiatric: No depression. No anxiety. No mood swings. Endocrine: Mildly abnormal blood sugars. No weight change. PHYSICAL EXAMINATION Gen: This is a 60-year-old female. She is resting in bed and appears to be comfortable and in no acute distress. HEENT: Head is atraumatic, normocephalic. Pupils equal, round. Sclerae is anicteric. Mucous members of the mouth are somewhat dry. NECK: Supple. No JVD. No lymphadenopathy. No thyromegaly. LUNGS: Clear to auscultation. No wheezes or rhonchi. No intercostal retractions. 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 ABDOMEN: Soft. Bowel sounds are present. No masses. Left upper quadrant tenderness. EXTREMITIES: No pedal edema. No calf tenderness. Dorsalis pedis +1 bilaterally. Left-sided arm sling in place. Dressing to the left shoulder. NEUROLOGICAL: Patient is awake, alert and oriented x3. Cranial nerves 2 through 12 are grossly intact. Neuropathic changes in both feet. ASSESSMENT AND PLAN 1. Left humerus fracture secondary to fall status post left shoulder hemiarthroplasty. Continue pain management with [place] or Dilaudid, left arm sling in place. Eliquis and aspirin resumed 2. Generalized weakness and balance dysfunction with workup outpatient and status post cervical disc fusion. 3. Diabetes mellitus type 2, uncontrolled with hyperglycemia. Continue Lantus 60 units at bedtime, Farxiga 10 mg daily, Rybelsus 14 mg twice daily, NovoLog scheduled 12 units before meals and at bedtime and scale before meals and at bedtime. 4. Coronary artery disease status post multiple PCI with ischemic cardiomyopathy. Discontinue Lasix, continue Lipitor 40 mg orally daily. 4. Hypertension and hypertensive cardiovascular disease. Hold Lasix. History of hypotension 5. Chronic DVT and PEs. Continue Eliquis 5 mg orally bid for life. 6. Orthostatic hypotension. Continue midodrine increased to 10 mg twice daily. 7. Hyperlipidemia. Continue Lipitor 20 mg po daily. 8. Diabetic polyneuropathy. Continue gabapentin 800 mg 2 times daily . 9. Severe PAD. Continue Lipitor 20 mg orally daily, hold aspirin 81 mg daily. 10. Recurrent depression. Continue Cymbalta 60 mg daily. 11. GI prophylaxis. we will continue with Protonix 40 mg IV daily, 12. DVT prophylaxis. Eliquis 5 mg orally bid. DISCHARGE PLAN [facility] on Saturday Impression and plan of care have been directed as dictated by the signing physician. Kerri Kevin nurse practitioner acting as scribe for signing physician. Objective - Vital Signs Vital signs: Vital Signs Temp 98.4 F 03/17/21 02:00 Pulse 86 03/17/21 02:00 Resp 13 03/17/21 02:00 BP 122/68 03/17/21 02:00 Pulse Ox 98 03/17/21 02:00 Intake & Output 03/16/21 03/17/21 03/17/21 18:59 06:59 18:59 Intake Total 1400 Output Total 150 800 Balance 1250 -800 Intake: IV 1400 Output: Urine 800 Straight 800 Estimated Blood Loss 150 Other: Voiding Method Bedside Commode # Voids 2 # Bowel Movements 1 - Labs CBC & Chem 7: 03/17/21 05:50 03/17/21 05:50 Labs: Abnormal Lab Results - Last 24 Hours (Table) 03/16/21 03/16/21 03/16/21 Range/Units 08:17 08:21 11:38 WBC 11.2 H (3.8-10.6) k/uL RDW 15.9 H (11.5-15.5) % Sodium (137-145) mmol/L BUN 20 H (7-17) mg/dL Glucose 110 H (74-99) mg/dL POC Glucose (mg/dL) 205 H (75-99) mg/dL AST 40 H (14-36) U/L Total Protein (6.3-8.2) g/dL Albumin (3.5-5.0) g/dL 03/16/21 03/16/21 03/16/21 Range/Units 13:36 18:15 21:06 WBC (3.8-10.6) k/uL RDW (11.5-15.5) % Sodium (137-145) mmol/L BUN (7-17) mg/dL Glucose (74-99) mg/dL POC Glucose (mg/dL) 212 H 195 H 223 H (75-99) mg/dL AST (14-36) U/L Total Protein (6.3-8.2) g/dL Albumin (3.5-5.0) g/dL 03/17/21 03/17/21 Range/Units 05:50 07:21 WBC (3.8-10.6) k/uL RDW (11.5-15.5) % Sodium 134 L (137-145) mmol/L BUN (7-17) mg/dL Glucose 188 H (74-99) mg/dL POC Glucose (mg/dL) 202 H (75-99) mg/dL AST 50 H (14-36) U/L Total Protein 5.5 L (6.3-8.2) g/dL Albumin 2.7 L (3.5-5.0) g/dL
[2021-03-17 12:16] LABS: Glucose,Whole Blood 123 mg/dL (75-99)
[2021-03-17] MEDS ORDERED: SODIUM CHLORIDE 0.9% 1,000 ML IV ONE (12:30)
[2021-03-17] MEDS: FLUDROCORTISONE 0.1 MG TAB PO SCH (13:24)
--- NOTE | 2021-03-17 13:39 | P.PN ---
Subjective Progress Note Date: 03/17/21 HISTORY OF PRESENT ILLNESS: This is a 60-year-old female with a past medical history significant for coronary artery disease with previous PCI in the mid RCA and mid LAD in 2014, [place] PD, DVT, hyperlipidemia, hypertension,type 2 diabetes, peripheral vascular disease, and nicotine dependence. Recent anterior cervical fusion that was done at a [facility] and was filled in December 2020. Patient follows in the office with Dr. Bill. We have been asked to see the patient in consultation for cardiac clearance for surgery. Patient presents emergency department status post fall at home. Patient apparently was trying to get to the bathroom she became dizzy and lightheaded and fell directly on her left shoulder. She denies any loss consciousness. She states she has been having episodes of dizziness, lightheadedness and then falling afterwards, this has been going on for years. Sometimes she states she loses consciousness and does not remember what happens. She denies room spinning. She states it happens when she stands up, and starts walking, she will feel lightheaded and needs to sit back down. She also states she has neuropathy and her legs are weak and this contributes to her falls when she feels her legs give out. She states she has been started on midodrine due to her low blood pressure, but she doesnt believe this is helping her symptoms. She denies any chest pain, shortness of breath, palpitations. She states she has had a heart monitor in the past, about over a year ago, and there were no acute findings/arrhythmia. Her was unable to get her off the floor, so she was transferred to [facility] for further evaluation. Computed tomography scan of the head/neck reveal no acute processes. Pelvis x-ray revealed no acute processes. X-rays of the left shoulder demonstrated a displaced left proximal humerus fracture involving the humeral neck. Orthopedics was consulted. Plan for possible open reduction and internal fixation left proximal humerus fracture with Ortho tomororow 03/16. DIAGNOSTICS EKG reveals sinus rhythm, heart rate 93, no significant STT wave abnormalities Most recent cardiac catheterization 08/26/2015- patent stents in the mid RCA, patent stent in the mid LAD. Left ventricular systolic function is mildly impaired with an EF around 40-45%. Most recent stress test 1Lexiscan- no evidence for reversible ischemia Most recent echocardiogram 08/30/2020 revealed ejection fraction 50-55%, moderate concentric LVH, left atrial is mildly dilated, mild mitral regurgitation Chest xray no acute cardiopulmonary process. Laboratory reviewed, WBC 12.2, hemoglobin 12.6, platelets 194, sodium 136, potassium 3.3, Current cardiac medications include rosuvastatin 10 mg nightly, potassium chloride 10 mg twice a day, aspirin 1 mg daily, midodrine 5 mg twice a day, Lasix 20 mg Q48 hours, Eliquis 5 mg twice a day. Patient is also on meclizine 12.5 mg daily when necessary. Addendum entered and electronically signed by Alexis Yen DO 03/15/21 21:16: Patient with recurrent falls which appear related to standing and becoming lightheaded almost every time she stands. She states her legs will become weak and shaky. She also had chronic pain in her calfs and thighs (may be related to her neuropathy), however much worse with minimal activity such as walking around a grocery store. Do not suspect any arrhythmiogenic etiology and appears more perfusion related. There is a consideration of possible PAD causing her lower extremity weakness as she does have bilateral poor posterior tibial and dorsalis pedis pulses, with history of CAD, PAD, tobacco abuse. Most recent arterial ultrasound lower extremities from October 2015 and may consider repeating outpt. We will check orthostatic vitals. Continue with IV fluids given lactic acidosis and borderline blood pressure. Hold Lasix. May also consider workup of adrenal insufficiency as cause of abdominal pain and lightheadedness, obtain a.m. cortisol level. Continue with Midodrine. 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 AV fistula can cause high output failure or issues with hypotension however appears that the AV fistula has been thrombosed for some time. Patient also has significant decreased oral intake secondary to feeling nauseous and bloated and food coming up if she eats too much. She states then she will usually become nauseous, typically after showering however can happen at any time and then emesis. Discussed possibility of gastroparesis and does not believe she has had a gastric emptying study previously and no prior diagnosis. Reviewed workup from [facility], [place] and [facility] with no mention of gastric emptying study or gastroparesis however would strongly consider given her history of uncontrolled diabetes, symptoms and neuropathy. This may be performed on an outpatient basis, may consider Reglan. Symptoms are not classic for chronic mesenteric ischemia with prior CAT scan rev iewed and no obvious stenosis around the mesenteric arteries and this appears less likely. Patient with multiple medical problems, multiple comorbidities, coronary artery disease and significant debility. Patient denies any current angina-type symptoms. Patient is high risk however had recent echocardiogram and stress test in August 2020 without significant abnormalities and tolerated recent c ervical surgery. Patient is high risk for proposed surgery however appears reasonable candidate and benefits appear to outweigh the risks. Discussed with patient and patient understanding. Patient cleared from cardiology standpoint for proposed surgery. 03/16/2021 Patient examined this morning. She is sitting up in the chair. Sling to left arm present. Patient denies chest pain or pressure. Denies shortness of breath. She is scheduled for surgery today with orthopedics. Blood pressure this morning supine 105/70. Blood pressure sitting 76/61. Cortisol level 16. 03/17/2021 Patient is s/p left shoulder hemiarthoplasty with Dr. Coffman. POD #1. Patient examined at the bedside. Blood pressure supine 124/71. Blood pressure sitting 105/68. Blood pressure standing 83/46. The patient continues to report lightheadedness. PHYSICAL EXAM: VITAL SIGNS: Reviewed. GENERAL: Well-developed in no acute distress. NECK: Supple. No JVD or thyromegaly LUNGS: Respirations even and unlabored. Lungs essentially clear to auscultation bilaterally. HEART: Regular rate and rhythm. S1 and S2 heard. EXTREMITIES: Normal range of motion. No clubbing or cyanosis. Peripheral pulses intact. Trace bilateral lower extremity edema ASSESSMENT: Displaced left humeral neck fracture Orthostatic hypotension Fall at home Dizziness History of lightheadedness, dizziness and falls at home Coronary artery disease with previous PCI in the mid RCA and mid LAD in 2014 COPD History of DVT s/p IVC filter currently on eliquis Hyperlipidemia History of Hypertension August 2020 patient recently taken off ACEI and beta nisa secondary to hypotension Type 2 diabetes Peripheral vascular disease Nicotine dependence Recent anterior cervical fusion that was done at a [facility] PLAN: AMANDEEP hose to bilateral lower extremities Continue to hold Lasix Increase Midodrine to 10mg 3 times a day Continue IVF fluids at 80cc/hr Given additional 1 L normal saline bolus now Add Florinef 0.1 mg daily Repeat orthostatics daily Further recommendations pending patient course Nurse practitioner note has been reviewed by physician. Signing provider agrees with the documented findings, assessment, and plan of care. Objective - Vital Signs Vital signs: Vital Signs Temp 98.4 F 03/17/21 08:45 Pulse 86 03/17/21 08:45 Resp 18 03/17/21 08:45 BP 121/71 03/17/21 08:45 Pulse Ox 93 L 03/17/21 08:45 Intake & Output 03/16/21 03/17/21 03/17/21 18:59 06:59 18:59 Intake Total 1400 Output Total 150 800 Balance 1250 -800 Intake: IV 1400 Output: Urine 800 Straight 800 Estimated Blood Loss 150 Other: Voiding Method Bedside Commode # Voids 2 # Bowel Movements 1 - Labs CBC & Chem 7: 03/17/21 05:50 03/17/21 05:50 Labs: Abnormal Lab Results - Last 24 Hours (Table) 03/16/21 03/16/21 03/16/21 Range/Units 11:38 13:36 18:15 WBC (4.50-10.00) X 10*3/uL RBC (4.10-5.20) X 10*6/uL Hgb (12.0-15.0) g/dL Hct (37.2-46.3) % RDW (11.5-14.5) % Sodium (137-145) mmol/L Glucose (74-99) mg/dL POC Glucose (mg/dL) 205 H 212 H 195 H (75-99) mg/dL AST (14-36) U/L Total Protein (6.3-8.2) g/dL Albumin (3.5-5.0) g/dL 03/16/21 03/17/21 03/17/21 Range/Units 21:06 05:50 05:50 WBC 18.14 H (4.50-10.00) X 10*3/uL RBC 3.88 L (4.10-5.20) X 10*6/uL Hgb 11.2 L (12.0-15.0) g/dL Hct 35.0 L (37.2-46.3) % RDW 15.7 H (11.5-14.5) % Sodium 134 L (137-145) mmol/L Glucose 188 H (74-99) mg/dL POC Glucose (mg/dL) 223 H (75-99) mg/dL AST 50 H (14-36) U/L Total Protein 5.5 L (6.3-8.2) g/dL Albumin 2.7 L (3.5-5.0) g/dL 03/17/21 Range/Units 07:21 WBC (4.50-10.00) X 10*3/uL RBC (4.10-5.20) X 10*6/uL Hgb (12.0-15.0) g/dL Hct (37.2-46.3) % RDW (11.5-14.5) % Sodium (137-145) mmol/L Glucose (74-99) mg/dL POC Glucose (mg/dL) 202 H (75-99) mg/dL AST (14-36) U/L Total Protein (6.3-8.2) g/dL Albumin (3.5-5.0) g/dL
--- NOTE | 2021-03-17 14:06 | P.PN ---
Subjective Progress Note Date: 03/17/21 Principal diagnosis: Left proximal humerus fracture patient was evaluated today at bedside, she is resting in her hospital chair. She has multiple family members present. She is having quite a bit of pain in the left shoulder, she notes slight improvement since surgery. She is utilizing the arm sling at this time. She currently denies any headaches, lightheadedness, chest pain or shortness of breath. Objective - Vital Signs Vital signs: Vital Signs Temp 98.4 F 03/17/21 08:45 Pulse 126 H 03/17/21 12:01 Resp 18 03/17/21 08:45 BP 83/46 03/17/21 12:01 Pulse Ox 93 L 03/17/21 12:01 Intake & Output 03/16/21 03/17/21 03/17/21 18:59 06:59 18:59 Intake Total 1400 Output Total 150 800 Balance 1250 -800 Intake: IV 1400 Output: Urine 800 Straight 800 Estimated Blood Loss 150 Other: Voiding Method Bedside Commode # Voids 2 # Bowel Movements 1 - Exam Gen: AOx3, NAD VSS stable at this time Integument: Incision is clean, dry and intact, Steri-Strips are in good position. The postop bandage was changed. There is obvious ecchymosis present in the lower arm surrounding the elbow and upper forearm Palpation: Obvious tenderness with palpation surrounding the shoulder, she is nontender throughout the elbow, forearm, hand and wrist Sensory Exam: Senory exam to light touch is intact C5-T1 Motion: Patient is able to wiggle all fingers without difficulty, extension and flexion are intact at the wrist and elbow. Shoulder range of motion was not assessed Vascular: Radial and ulnar pulses are 2+ - Labs CBC & Chem 7: 03/17/21 05:50 03/17/21 05:50 Labs: Abnormal Lab Results - Last 24 Hours (Table) 03/16/21 03/16/21 03/17/21 Range/Units 18:15 21:06 05:50 WBC 18.14 H (4.50-10.00) X 10*3/uL RBC 3.88 L (4.10-5.20) X 10*6/uL Hgb 11.2 L (12.0-15.0) g/dL Hct 35.0 L (37.2-46.3) % RDW 15.7 H (11.5-14.5) % Sodium (137-145) mmol/L Glucose (74-99) mg/dL POC Glucose (mg/dL) 195 H 223 H (75-99) mg/dL AST (14-36) U/L Total Protein (6.3-8.2) g/dL Albumin (3.5-5.0) g/dL 03/17/21 03/17/21 03/17/21 Range/Units 05:50 07:21 12:15 WBC (4.50-10.00) X 10*3/uL RBC (4.10-5.20) X 10*6/uL Hgb (12.0-15.0) g/dL Hct (37.2-46.3) % RDW (11.5-14.5) % Sodium 134 L (137-145) mmol/L Glucose 188 H (74-99) mg/dL POC Glucose (mg/dL) 202 H 123 H (75-99) mg/dL AST 50 H (14-36) U/L Total Protein 5.5 L (6.3-8.2) g/dL Albumin 2.7 L (3.5-5.0) g/dL Assessment and Plan Assessment: Status post left shoulder hemiarthroplasty Status post fall from standing History of recent anterior cervical fusion, October 2020, stable appearing hardware Multiple medical comorbidities Plan: Pain control, continue use of oral medication, IV pain medication for breakthrough pain GI and DVT prophylaxis, her oral anticoagulation has been resumed Utilize arm sling at this time, andwristelbow exercises are fine, avoid any lifting with the left upper extremity Ice the shoulder often for symptomatic relief Other medical specialty recommendations Discharge planning: Patient will benefit from stay at subacute rehab. Patient was dealing with a lot of lightheadedness/dizziness/frequent falls prior to her admission. She will be very limited with ADLs due to her left upper extremity. I do not want any physical therapy of the left shoulder at this time. We have stay would be mainly for assistance of ADLs and to work on gait ambulation with limited use of the left upper extremity Time with Patient: Less than 30
[2021-03-17 17:03] LABS: Glucose,Whole Blood 178 mg/dL (75-99)
[2021-03-17 20:14] LABS: Glucose,Whole Blood 145 mg/dL (75-99)
[2021-03-17] MEDS: ATORVASTATIN 20 MG TAB PO SCH (21:07)
[2021-03-17] MEDS: INSULIN DETEMIR (LEVEMIR) 100 UNIT/ML SYR SQ SCH (21:16)
[2021-03-18] MEDS: HYDROmorphone 1 MG/ML 1 ML SYRINGE IVP PRN ×2 (00:03→07:53)
[2021-03-18] MEDS: LACTATED RINGERS 1,000 ML IV SCH ×3 (02:25→10:58)
[2021-03-18 07:22] LABS: Glucose,Whole Blood 77 mg/dL (75-99)
[2021-03-18] MEDS: INSULIN ASPART (NovoLOG) 100 UNIT/ML VIAL SQ SCH ×5 (09:12→21:33)
[2021-03-18] MEDS: NON FORMULARY DRUG (Icosapent Ethyl [Icosapent Ethyl] 1 GM Capsule) PO SCH ×2 (09:12→16:51)
[2021-03-18] MEDS: NON FORMULARY DRUG (Dapagliflozin Propanediol [Farxiga] 10 MG Tablet) PO SCH (09:13)
[2021-03-18] MEDS: APIXABAN 5 MG TAB PO SCH ×2 (09:23→21:31)
[2021-03-18] MEDS: DULoxetine HCL 60 MG CAPSULE.DR PO SCH (09:23)
[2021-03-18] MEDS: FLUDROCORTISONE 0.1 MG TAB PO SCH (09:23)
[2021-03-18] MEDS: POTASSIUM CHLORIDE ER 10 MEQ TAB.ER.PRT PO SCH ×2 (09:23→21:32)
[2021-03-18] MEDS: MIDODRINE 5 MG TAB PO SCH ×3 (09:23→16:52)
[2021-03-18] MEDS: HYDROcodone/APAP 10-325MG 1 EACH TAB PO SCH ×4 (09:24→21:33)
[2021-03-18] MEDS: GABAPENTIN 400 MG CAP PO SCH ×2 (09:24→21:32)
[2021-03-18] MEDS: PANTOPRAZOLE 40 MG TABLET PO SCH (09:24)
[2021-03-18] MEDS: ASPIRIN 81 MG PO SCH (09:24)
[2021-03-18] MEDS: NON FORMULARY DRUG (Semaglutide [Rybelsus] 14 MG Tablet) PO SCH (09:47)
--- NOTE | 2021-03-18 09:53 | P.PN ---
Subjective Progress Note Date: 03/18/21 Principal diagnosis: Left proximal humerus fracture Patient was evaluated today at bedside, she is resting in her hospital bed. She is utilizing the arm sling at this time. Patient does seem slightly sedated today exam, she has a hard time keeping her eyes open. She currently denies any headaches, lightheadedness, chest pain or shortness of breath. Objective - Vital Signs Vital signs: Vital Signs Temp 97.9 F 03/18/21 08:00 Pulse 81 03/18/21 08:00 Resp 17 03/18/21 08:00 BP 112/67 03/18/21 08:00 Pulse Ox 97 03/18/21 08:00 Intake & Output 03/17/21 03/18/21 03/18/21 18:59 06:59 18:59 Intake Total 240 Balance 240 Intake: Intake, IV Titration 240 Amount Lactated Ringers 1,000 ml 240 @ 20 mls/hr IV .Q24H AGNES Rx#:[id number] Other: Voiding Method Bedside Commode # Voids 4 3 1 - Exam Gen: AOx3, NAD VSS stable at this time Integument: Incision is clean, dry and intact, Steri-Strips are in good position. There is obvious ecchymosis present in the lower arm surrounding the elbow and upper forearm Palpation: Obvious tenderness with palpation surrounding the shoulder, she is nontender throughout the elbow, forearm, hand and wrist Sensory Exam: Senory exam to light touch is intact C5-T1 Motion: Patient is able to wiggle all fingers without difficulty, extension and flexion are intact at the wrist and elbow. Shoulder range of motion was not assessed Vascular: Radial and ulnar pulses are 2+ - Labs CBC & Chem 7: 03/17/21 05:50 03/17/21 05:50 Labs: Abnormal Lab Results - Last 24 Hours (Table) 03/17/21 03/17/21 03/17/21 Range/Units 12:15 17:02 20:12 POC Glucose (mg/dL) 123 H 178 H 145 H (75-99) mg/dL Assessment and Plan Assessment: Status post left shoulder hemiarthroplasty Status post fall from standing History of recent anterior cervical fusion, October 2020, stable appearing hardware Multiple medical comorbidities Plan: Pain control, will decrease IV pain medication. Please try to utilize oral medications versus IV GI and DVT prophylaxis, her oral anticoagulation has been resumed Utilize arm sling at this time, andwristelbow exercises are fine, avoid any lifting with the left upper extremity Ice the shoulder often for symptomatic relief Other medical specialty recommendations Discharge planning: Patient will benefit from stay at subacute rehab. Patient was dealing with a lot of lightheadedness/dizziness/frequent falls prior to her admission. She will be very limited with ADLs due to her left upper extremity. I do not want any physical therapy of the left shoulder at this time. We have stay would be mainly for assistance of ADLs and to work on gait ambulation with limited use of the left upper extremity Time with Patient: Less than 30
--- NOTE | 2021-03-18 10:04 | P.PN ---
Subjective Progress Note Date: 03/18/21 Progress Note Date: 03/18/21 HISTORY OF PRESENT ILLNESS This is a 60-year-old female patient of Dr. Tejeda and Dr. Bill with history of CAD with multiple cardiac stents in mid RCA, mid LAD, obtuse marginal branch and followed by Dr. Bill closely, peripheral artery disease with previous stenting done as well has amputation of the right great toe secondary to osteomyelitis, CVA with no residual deficits, hypertension, COPD, diabetes mellitus type 2, previous multiple DVT and PE requiring chronic anticoagulation on eliquis, history of GI bleed secondary to antral gastritis, esophagitis vitamin D deficiency, orthostatic hypotension on midodrine. Patient had a fall about 11:15 last evening. Patient states that she was getting up to go into the bathroom. She landed on her left arm. Her was unable to get her up and EMS was called. Patient has not been eating very much. She was recently started on Rybelsus and 7 mg twice daily and this was increased approximately one to 2 weeks ago to 14 mg. A1c 02/14/2021 was 9.6. Patient has had decreased appetite and taking Zofran. She states that she had EMG done last week at [facility] due to ongoing problems with balance and neuropathy. Patient was brought into [facility] emergency center for evaluation. Patient was afebrile, heart rate 105, blood pressure 139/90 and pulse ox 97% on room air. WBC 15.9, hemoglobin 16.3, platelet count 295. INR 1.6. Sodium 133, potassium 3.8, chloride 94, CO2 28, BUN 8 and creatinine 1.07. Blood sugar 301. Lactic acid initially 3.4 and repeat 1.7. Magnesium 1.3, total bilirubin 1.1, AST 51, ALT 25, alkaline phosphatase 111. Phosphorus 3.6. Albumin 3.4. Troponin negative. Left shoulder x-ray showed humeral neck fracture appears to be rotated and impacted. Chest x-ray is normal. CT of the brain was negative. No acute intracranial abnormality. CT of the cervical spine showed previous anterior fusion surgery. No fracture seen. Patient is status post 2.5 L of IV fluid, magnesium replacement, morphine and Dilaudid, admitted to the orthopedic service and we've been asked to follow the patient for medical management. Eliquis and aspirin placed on hold in case surgical intervention is necessary. 03/15: Patient complains of significant pain to the left arm. She states she was vomiting last evening. She denies passing gas or having a bowel movement. She denies fever. She has been seen by orthopedics this morning and plan is for cardiology consult for clearance for surgery scheduled on for open reduction internal fixation of the left proximal humerus fracture. Patient has been afebrile, heart rate 86, blood pressure 92/61, pulse ox 92% on room air. Sugars are running between 75 and 165. 03/16: Patient denies any chest pain or shortness of breath. She still is having nausea on and off and feels tired. Patient has been seen by cardiology and cleared for surgery, midodrine increased to 10 mg and Lasix discontinued. Patient started on IV fluids and 500 mL fluid bolus. She remains afebrile, heart rate 100, blood pressure 104/71, pulse ox 98% on room air. Orthostatic vital signs were positive. WBC 11.2, hemoglobin 13.3, platelet count 201. Electrolytes are normal. BUN 20 and creatinine 0.72. Blood sugars running between 110 and 205. AST 40 otherwise liver function tests are normal. Cortisol level XVI. 03/17: Yesterday, patient underwent left shoulder hemiarthroplasty for displaced left proximal humerus fracture. The patient continues to have pain in the area and difficulty getting comfortable. She is still not eating very much. Patient has been afebrile, heart rate 86, blood pressure 121/71, pulse ox 93% on room air. Blood work today reveals WBC 18.1, hemoglobin 11.2, platelet count 237. Sodium 134, potassium 5.3, chloride 98, CO2 26, BUN 11 creatinine 0.8. Blood sugars are running between 188 and 223. AST 50, ALT 29, alkaline phosphatase 81. Patient has been seen by PT and OT with recommendations for subacute rehab and patient has chosen [facility]. Most likely patient will be here until Saturday to get pain control. Ice will be added to apply to the left shoulder, incentive spirometry added, patient is wearing AMANDEEP hose and on chronic eliquis. 03/18: Patient sitting up in the recliner she is doing a lot better today her blood glucose level morning was 71, she is eating better, her pain is well controlled we will continue with current treatment plan, discontinue NovoLog 12 units before each meal and continue statin scale insulin as the patient blood sugars continue to be low patient has not been getting her Rybelsus which should be once a day in the morning. REVIEW OF SYSTEMS Constitutional: No fever, no chills, no night sweats. No weight change. No weakness, reports fatigue or lethargy. No daytime sleepiness. EENT: No headache. No dizziness. Reports difficulty swallowing. No nasal drainage or congestion. No epistaxis. No sore throat. Lungs: No shortness of breath, cough, no sputum production. No wheezing. Cardiovascular: No chest pain, no lower extremity edema. No palpitations. No paroxysmal nocturnal dyspnea. No orthopnea. No lightheadedness or dizziness. No syncopal episodes. Abdominal: Denies abdominal pain. Reports nausea, denies vomiting. Denies diarrhea. No constipation. No bloody or tarry stools. Reports loss of appetite. Genitourinary: No dysuria, increased frequency, urgency. No urinary retention. Musculoskeletal: No myalgias. No muscle weakness, reports balance dysfunction, reports gait dysfunction, reports frequent falls. No back pain. No neck pain. Pain left shoulder Integumentary: No wounds, no lesions. No rash or pruritus. No unusual bruisi ng. No change in hair or nails. Neurologic: No aphasia. No facial droop. No change in mentation. No head injury. No headache. No paralysis. positive for paresthesia Psychiatric: positive for depression Endocrine: Mildly abnormal blood sugars. No weight change. PHYSICAL EXAMINATION Gen: This is a 60-year-old female. She is resting in bed and appears to be comfortable and in no acute distress. HEENT: Head is atraumatic, normocephalic. Pupils equal, round. Sclerae is anicteric. Mucous members of the mouth are somewhat dry. NECK: Supple. No JVD. No lymphadenopathy. No thyromegaly. LUNGS: Clear to auscultation. No wheezes or rhonchi. No intercostal r etractions. 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 ABDOMEN: Soft. Bowel sounds are present. No masses. Left upper quadrant tenderness. EXTREMITIES: No pedal edema. No calf tenderness. Dorsalis pedis +1 bilaterally. Left-sided arm sling in place. Dressing to the left shoulder, NEUROLOGICAL: Patient is awake, alert and oriented x3. Cranial nerves 2 through 12 are grossly intact, muscle power 4/5 in upper and lower extremities bilaterally Neuropathic changes in both feet, left big toe amputation ASSESSMENT AND PLAN 1. Left humerus fracture secondary to fall status post left shoulder hemiarthroplasty. Continue pain management with [place] or Dilaudid, left arm sling in place. Eliquis and aspirin resumed 2. Generalized weakness and balance dysfunction with workup outpatient and status post cervical disc fusion. 3. Diabetes mellitus type 2, uncontrolled with hyperglycemia. Continue Lantus 60 units at bedtime, Farxiga 10 mg daily, Rybelsus 14 mg twice daily, NovoLog scheduled 12 units before meals and at bedtime and scale before meals and at bedtime. 4. Coronary artery disease status post multiple PCI with ischemic cardiomyopathy. Discontinue Lasix, continue Lipitor 40 mg orally daily. 4. Hypertension and hypertensive cardiovascular disease. Hold Lasix. History of hypotension 5. Chronic DVT and PEs. Continue Eliquis 5 mg orally bid for life. 6. Orthostatic hypotension. Continue midodrine increased to 10 mg twice daily. 7. Hyperlipidemia. Continue Lipitor 20 mg po daily. 8. Diabetic polyneuropathy. Continue gabapentin 800 mg 2 times daily . 9. Severe PAD. Continue Lipitor 20 mg orally daily, hold aspirin 81 mg daily. 10. Recurrent depression. Continue Cymbalta 60 mg daily. 11. GI prophylaxis. we will continue with Protonix 40 mg IV daily, 12. DVT prophylaxis. Eliquis 5 mg orally bid. DISCHARGE PLAN Saturday Objective - Vital Signs Vital signs: Vital Signs Temp 97.9 F 03/18/21 08:00 Pulse 81 03/18/21 08:00 Resp 17 03/18/21 08:00 BP 112/67 03/18/21 08:00 Pulse Ox 97 03/18/21 08:00 Intake & Output 03/17/21 03/18/21 03/18/21 18:59 06:59 18:59 Intake Total 240 Balance 240 Intake: Intake, IV Titration 240 Amount Lactated Ringers 1,000 ml 240 @ 20 mls/hr IV .Q24H [facility] Rx#:[id number] Other: # Voids 4 3 1 - Labs CBC & Chem 7: 03/17/21 05:50 03/17/21 05:50 Labs: Abnormal Lab Results - Last 24 Hours (Table) 03/17/21 03/17/21 03/17/21 Range/Units 05:50 12:15 17:02 WBC 18.14 H (4.50-10.00) X 10*3/uL RBC 3.88 L (4.10-5.20) X 10*6/uL Hgb 11.2 L (12.0-15.0) g/dL Hct 35.0 L (37.2-46.3) % RDW 15.7 H (11.5-14.5) % POC Glucose (mg/dL) 123 H 178 H (75-99) mg/dL 03/17/21 Range/Units 20:12 WBC (4.50-10.00) X 10*3/uL RBC (4.10-5.20) X 10*6/uL Hgb (12.0-15.0) g/dL Hct (37.2-46.3) % RDW (11.5-14.5) % POC Glucose (mg/dL) 145 H (75-99) mg/dL
[2021-03-18 10:58] LABS: Glucose,Whole Blood 129 mg/dL (75-99)
[2021-03-18] MEDS: HYDROmorphone 0.5 MG/0.5 ML SYRINGE IVP PRN ×2 (14:34→19:26)
[2021-03-18 16:38] LABS: Glucose,Whole Blood 224 mg/dL (75-99)
[2021-03-18 20:21] LABS: Glucose,Whole Blood 119 mg/dL (75-99)
[2021-03-18] MEDS ORDERED: INSULIN DETEMIR (LEVEMIR) 100 UNIT/ML SYR SQ ONE (20:53)
[2021-03-18] MEDS: ATORVASTATIN 20 MG TAB PO SCH (21:31)
--- NOTE | 2021-03-18 22:45 | P.PN ---
Subjective HISTORY OF PRESENT ILLNESS: This is a 60-year-old female with a past medical history significant for coronary artery disease with previous PCI in the mid RCA and mid LAD in 2015, COPD, DVT, hyperlipidemia, hypertension,type 2 diabetes, peripheral vascular disease, and nicotine dependence. Recent anterior cervical fusion that was done at a [facility] and was filled in December 2020. Patient follows in the office with Dr. Bill. We have been asked to see the patient in consultation for cardiac clearance for surgery. Patient presents emergency department status post fall at home. Patient apparently was trying to get to the bathroom she became dizzy and lightheaded and fell directly on her left shoulder. She denies any loss consciousness. She states she has been having episodes of dizziness, lightheadedness and then falling afterwards, this has been going on for years. Sometimes she states she loses consciousness and does not remember what happens. She denies room spinning. She states it happens when she stands up, and starts walking, she will feel lightheaded and needs to sit back down. She also states she has neuropathy and her legs are weak and this contributes to her falls when she feels her legs give out. She states she has been started on midodrine due to her low blood pressure, but she doesnt believe this is helping her symptoms. She denies any chest pain, shortness of breath, palpitations. She states she has had a heart monitor in the past, about over a year ago, and there were no acute findings/arrhythmia. Her was unable to get her off the floor, so she was transferred to [facility] for further evaluation. Computed tomography scan of the head/neck reveal no acute processes. Pelvis x-ray revealed no acute processes. X-rays of the left shoulder demonstrated a displaced left proximal humerus fracture involving the humeral neck. Orthopedics was consulted. Plan for possible open reduction and internal fixation left proximal humerus fracture with Ortho tomororow 03/16. DIAGNOSTICS EKG reveals sinus rhythm, heart rate 93, no significant STT wave abnormalities Most recent cardiac catheterization 08/26/2015- patent stents in the mid RCA, patent stent in the mid LAD. Left ventricular systolic function is mildly impaired with an EF around 40-45%. Most recent stress test 08/30/2020exiscan- no evidence for reversible ischemia Most recent echocardiogram 08/30/2020 revealed ejection fraction 50-55%, moderate concentric LVH, left atrial is mildly dilated, mild mitral regurg itation Chest xray no acute cardiopulmonary process. Laboratory reviewed, WBC 12.2, hemoglobin 12.6, platelets 194, sodium 136, potassium 3.3, Current cardiac medications include rosuvastatin 10 mg nightly, potassium chloride 10 mg twice a day, aspirin 1 mg daily, midodrine 5 mg twice a day, Lasix 20 mg Q48 hours, Eliquis 5 mg twice a day. Patient is also on meclizine 12.5 mg daily when necessary. Addendum entered and electronically signed by Alexis Yen DO 03/15/21 21:16: Patient with recurrent falls which appear related to standing and becoming lightheaded almost every time she stands. She states her legs will become weak and shaky. She also had chronic pain in her calfs and thighs (may be related to her neuropathy), however much worse with minimal activity such as walking around a grocery store. Do not suspect any arrhythmiogenic etiology and appears more perfusion related. There is a consideration of possible PAD causing her lower extremity weakness as she does have bilateral poor posterior tibial and dorsalis pedis pulses, with history of CAD, PAD, tobacco abuse. Most recent arterial ultrasound lower extremities from October 2015 and may consider repeating outpt. We will check orthostatic vitals. Continue with IV fluids given lactic acidosis and borderline blood pressure. Hold Lasix. May also consider workup of adrenal insufficiency as cause of abdominal pain and lightheadedness, obtain a.m. cortisol level. Continue with Midodrine. 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 AV fistula can cause high output failure or issues with hypotension however appears that the AV fistula has been thrombosed for some time. Patient also has significant decreased oral intake secondary to feeling nauseous and bloated and food coming up if she eats too much. She states then she will usually become nauseous, typically after showering however can happen at any time and then emesis. Discussed possibility of gastroparesis and does not believe she has had a gastric emptying study previously and no prior diagnosis. Reviewed workup from [facility], [place] and [facility] with no mention of gastric emptying study or gastroparesis however would strongly consider given her history of uncontrolled diabetes, symptoms and neuropathy. This may be performed on an outpatient basis, may consider Reglan. Symptoms are not classic for chronic mesenteric ischemia with prior CAT scan reviewed and no obvious stenosis around the mesenteric arteries and this appears less likely. Patient with multiple medical problems, multiple comorbidities, coronary artery disease and significant debility. Patient denies any current angina-type symptoms. Patient is high risk however had recent echocardiogram and stress test in August 2020 without significant abnormalities and tolerated recent cervical surgery. Patient is high risk for proposed surgery however appears reasonable candidate and benefits appear to outweigh the risks. Discussed with patient and patient understanding. Patient cleared from cardiology standpoint for proposed surgery. 03/16/2021 Patient examined this morning. She is sitting up in the chair. Sling to left arm present. Patient denies chest pain or pressure. Denies shortness of breath. She is scheduled for surgery today with orthopedics. Blood pressure this morning supine 105/70. Blood pressure sitting 76/61. Cortisol level 16. 03/17/2021 Patient is s/p left shoulder hemiarthoplasty with Dr. Coffman. POD #1. Patient examined at the bedside. Blood pressure supine 124/71. Blood pressure sitting 105/68. Blood pressure standing 83/46. The patient continues to report lightheadedness. 03/18 Patient seen and examined. Patient states she was working with physical therapy and somewhat more steady on her feet when standing. Florinef was added yesterday. Blood pressures predominantly in the low 100s. She denies any chest pain or pressure. She is concerned about would like higher pain medications however has been fairly somnolent with pain meds in the past. PHYSICAL EXAM: VITAL SIGNS: Reviewed. GENERAL: Well-developed in no acute distress. NECK: Supple. No JVD or thyromegaly LUNGS: Respirations even and unlabored. Lungs essentially clear to auscultation bilaterally. HEART: Regular rate and rhythm. S1 and S2 heard. EXTREMITIES: Normal range of motion. No clubbing or cyanosis. Peripheral pulses intact. Trace bilateral lower extremity edema ASSESSMENT: Displaced left humeral neck fracture Orthostatic hypotension Fall at home Dizziness History of lightheadedness, dizziness and falls at home Coronary artery disease with previous PCI in the mid RCA and mid LAD in 2014 COPD History of DVT s/p IVC filter currently on eliquis Hyperlipidemia History of Hypertension August 2020 patient recently taken off ACEI and beta nisa secondary to hypotension Type 2 diabetes Peripheral vascular disease Nicotine dependence Recent anterior cervical fusion that was done at a [facility] PLAN: Continue Midodrine to 10mg 3 times a day Continue Florinef 0.1 mg daily Repeat orthostatics tomorrow We will attempt to wrap patient's lower extremities with Brent wrap as her venous insufficiency likely play some role in her orthostatic hypotension. Objective - Vital Signs Vital signs: Vital Signs Temp 98.0 F 03/18/21 19:33 Pulse 64 03/18/21 19:33 Resp 17 03/18/21 19:33 BP 108/69 03/18/21 19:33 Pulse Ox 98 03/18/21 19:33 Intake & Output 03/18/21 03/18/21 03/19/21 06:59 18:59 06:59 Intake Total 240 Balance 240 Intake: Intake, IV Titration 240 Amount Lactated Ringers 1,000 ml 240 @ 20 mls/hr IV .Q24H [facility] Rx#:[id number] Other: Voiding Method Bedside Commode # Voids 3 4 - Labs CBC & Chem 7: 03/17/21 05:50 03/17/21 05:50 Labs: Abnormal Lab Results - Last 24 Hours (Table) 03/18/21 03/18/21 03/18/21 Range/Units 10:56 16:36 20:19 POC Glucose (mg/dL) 129 H 224 H 119 H (75-99) mg/dL
[2021-03-19] MEDS: HYDROmorphone 0.5 MG/0.5 ML SYRINGE IVP PRN ×2 (00:04→06:10)
[2021-03-19] MEDS: LACTATED RINGERS 1,000 ML IV SCH ×3 (02:18→12:24)
[2021-03-19 07:06] LABS: Glucose,Whole Blood 115 mg/dL (75-99)
[2021-03-19] MEDS: INSULIN ASPART (NovoLOG) 100 UNIT/ML VIAL SQ SCH ×4 (07:22→21:22)
[2021-03-19] MEDS: NON FORMULARY DRUG (Icosapent Ethyl [Icosapent Ethyl] 1 GM Capsule) PO SCH ×2 (07:22→16:04)
[2021-03-19] MEDS: SEMAGLUTIDE 14 MG PO SCH (07:53)
[2021-03-19] MEDS: NON FORMULARY DRUG (Dapagliflozin Propanediol [Farxiga] 10 MG Tablet) PO SCH (07:53)
[2021-03-19] MEDS: METOCLOPRAMIDE 10 MG TAB PO SCH ×3 (07:56→17:17)
[2021-03-19] MEDS: GABAPENTIN 400 MG CAP PO SCH ×2 (07:56→21:21)
[2021-03-19] MEDS: ASPIRIN 81 MG PO SCH (07:56)
[2021-03-19] MEDS: DULoxetine HCL 60 MG CAPSULE.DR PO SCH (07:57)
[2021-03-19] MEDS: MIDODRINE 5 MG TAB PO SCH ×3 (07:57→17:17)
[2021-03-19] MEDS: PANTOPRAZOLE 40 MG TABLET PO SCH (07:57)
[2021-03-19] MEDS: HYDROcodone/APAP 10-325MG 1 EACH TAB PO SCH ×4 (07:57→21:19)
[2021-03-19] MEDS: POTASSIUM CHLORIDE ER 10 MEQ TAB.ER.PRT PO SCH ×2 (07:57→21:21)
[2021-03-19] MEDS: APIXABAN 5 MG TAB PO SCH ×2 (07:57→21:21)
[2021-03-19] MEDS: FLUDROCORTISONE 0.1 MG TAB PO SCH (08:03)
--- NOTE | 2021-03-19 10:42 | P.PN ---
Subjective Progress Note Date: 03/19/21 Principal diagnosis: Left proximal humerus fracture Patient was evaluated today at bedside, she is resting in her hospital chair. She is utilizing the arm sling at this time. Patient states that she did get up and ambulate in the matson with a single arm walker. She has noticed a little increase in pain after decreasing the IV pain medication. We did discuss this today, she needs to be off the IV pain medication for being discharged. She currently denies any headaches, lightheadedness, chest pain or shortness of breath. Objective - Vital Signs Vital signs: Vital Signs Temp 97.0 F L 03/19/21 08:00 Pulse 68 03/19/21 08:00 Resp 18 03/19/21 08:00 BP 111/65 03/19/21 08:00 Pulse Ox 100 03/19/21 08:00 Intake & Output 03/18/21 03/19/21 03/19/21 18:59 06:59 18:59 Weight 92.1 kg Other: Voiding Method Bedside Commode Toilet # Voids 4 3 - Exam Gen: AOx3, NAD VSS stable at this time Integument: Incision is clean, dry and intact, Steri-Strips are in good position. There is obvious ecchymosis present in the lower arm surrounding the elbow and upper forearm Palpation: Obvious tenderness with palpation surrounding the shoulder, she is nontender throughout the elbow, forearm, hand and wrist Sensory Exam: Senory exam to light touch is intact C5-T1 Motion: Patient is able to wiggle all fingers without difficulty, extension and flexion are intact at the wrist and elbow. Shoulder range of motion was not assessed Vascular: Radial and ulnar pulses are 2+ - Labs CBC & Chem 7: 03/17/21 05:50 03/17/21 05:50 Labs: Abnormal Lab Results - Last 24 Hours (Table) 03/18/21 03/18/21 03/18/21 Range/Units 10:56 16:36 20:19 POC Glucose (mg/dL) 129 H 224 H 119 H (75-99) mg/dL 03/19/21 Range/Units 07:05 POC Glucose (mg/dL) 115 H (75-99) mg/dL Assessment and Plan Assessment: Status post left shoulder hemiarthroplasty Status post fall from standing History of recent anterior cervical fusion, October 2020, stable appearing hardware Multiple medical comorbidities Plan: Pain control, continue with current medication GI and DVT prophylaxis, her oral anticoagulation has been resumed Utilize arm sling at this time, andwristelbow exercises are fine, avoid any lifting with the left upper extremity Ice the shoulder often for symptomatic relief Other medical specialty recommendations Discharge planning: Patient is adamant on not going to rehab. She is hoping with an extra day or 2 that she will continue to improve her mobility go home. I did discuss with her the possibility of nursing/PT at home, she is aware that it is not 24-hour care. I would prefer for the patient to go home as long as she feels she is able to do what is needed for her ADLs, we will continue to assess. We will discuss case management possibilities for medical equipment for home on 03/20/2021 Time with Patient: Less than 30
[2021-03-19 11:32] LABS: Anisocytosis Slight; Basophils % (A) 0 %; Eosinophils # (A) 0.3 k/uL (0-0.7); Eosinophils % (A) 3 %; HCT 34.4 % (34.0-46.0); HGB 11.1 gm/dL (11.4-16.0); Hypochromasia Slight; Lymphocytes # (A) 1.8 k/uL (1.0-4.8); Lymphocytes % (A) 19 %; MCH 29.5 pg (25.0-35.0); MCHC 32.3 g/dL (31.0-37.0); MCV 91.4 fL (80.0-100.0); Mean Platelet Volume 7.5; Monocytes # (A) 0.5 k/uL (0-1.0); Monocytes % (A) 5 %; Neutrophils % (A) 72 %; Platelet Count 246 k/uL (150-450); RBC 3.77 m/uL (3.80-5.40); RDW 16.3 % (11.5-15.5); WBC 9.7 k/uL (3.8-10.6)
[2021-03-19 11:35] LABS: Glucose,Whole Blood 140 mg/dL (75-99)
--- NOTE | 2021-03-19 11:41 | P.PN ---
Subjective Progress Note Date: 03/19/21 Progress Note Date: 03/19/21 HISTORY OF PRESENT ILLNESS This is a 60-year-old female patient of Dr. Tejeda and Dr. Bill with history of CAD with multiple cardiac stents in mid RCA, mid LAD, obtuse marginal branch and followed by Dr. Bill closely, peripheral artery disease with previous stenting done as well has amputation of the right great toe secondary to osteomyelitis, CVA with no residual deficits, hypertension, COPD, diabetes mellitus type 2, previous multiple DVT and PE requiring chronic anticoagulation on eliquis, history of GI bleed secondary to antral gastritis, esophagitis vitamin D deficiency, orthostatic hypotension on midodrine. Patient had a fall about 11:15 last evening. Patient states that she was getting up to go into the bathroom. She landed on her left arm. Her was unable to get her up and EMS was called. Patient has not been eating very much. She was recently started on Rybelsus and 7 mg twice daily and this was increased approximately one to 2 weeks ago to 14 mg. A1c 02/14/2021 was 9.6. Patient has had decreased appetite and taking Zofran. She states that she had EMG done last week at [facility] due to ongoing problems with balance and neuropathy. Patient was brought into [facility] emergency center for evaluation. Patient was afebrile, heart rate 105, blood pressure 139/90 and pulse ox 97% on room air. WBC 15.9, hemoglobin 16.3, platelet count 295. INR 1.6. Sodium 133, potassium 3.8, chloride 94, CO2 28, BUN 8 and creatinine 1.07. Blood sugar 301. Lactic acid initially 3.4 and repeat 1.7. Magnesium 1.3, total bilirubin 1.1, AST 51, ALT 25, alkaline phosphatase 111. Phosphorus 3.6. Albumin 3.4. Troponin negative. Left shoulder x-ray showed humeral neck fracture appears to be rotated and impacted. Chest x-ray is normal. CT of the brain was negative. No acute intracranial abnormality. CT of the cervical spine showed previous anterior fusion surgery. No fracture seen. Patient is status post 2.5 L of IV fluid, magnesium replacement, morphine and Dilaudid, admitted to the orthopedic service and we've been asked to follow the patient for medical management. Eliquis and aspirin placed on hold in case surgical intervention is necessary. 03/15: Patient complains of significant pain to the left arm. She states she was vomiting last evening. She denies passing gas or having a bowel movement. She denies fever. She has been seen by orthopedics this morning and plan is for cardiology consult for clearance for surgery scheduled on for open reduction internal fixation of the left proximal humerus fracture. Patient has been afebrile, heart rate 86, blood pressure 92/61, pulse ox 92% on room air. Sugars are running between 75 and 165. 03/16: Patient denies any chest pain or shortness of breath. She still is having nausea on and off and feels tired. Patient has been seen by cardiology and cleared for surgery, midodrine increased to 10 mg and Lasix discontinued. Patient started on IV fluids and 500 mL fluid bolus. She remains afebrile, heart rate 100, blood pressure 104/71, pulse ox 98% on room air. Orthostatic vital signs were positive. WBC 11.2, hemoglobin 13.3, platelet count 201. Electrolytes are normal. BUN 20 and creatinine 0.72. Blood sugars running between 110 and 205. AST 40 otherwise liver function tests are normal. Cortisol level XVI. 03/17: Yesterday, patient underwent left shoulder hemiarthroplasty for displaced left proximal humerus fracture. The patient continues to have pain in the area and difficulty getting comfortable. She is still not eating very much. Patient has been afebrile, heart rate 86, blood pressure 121/71, pulse ox 93% on room air. Blood work today reveals WBC 18.1, hemoglobin 11.2, platelet count 237. Sodium 134, potassium 5.3, chloride 98, CO2 26, BUN 11 creatinine 0.8. Blood sugars are running between 188 and 223. AST 50, ALT 29, alkaline phosphatase 81. Patient has been seen by PT and OT with recommendations for subacute rehab and patient has chosen [facility]. Most likely patient will be here until Saturday to get pain control. Ice will be added to apply to the left shoulder, incentive spirometry added, patient is wearing AMANDEEP hose and on chronic eliquis. 03/18: Patient sitting up in the recliner she is doing a lot better today her blood glucose level morning was 71, she is eating better, her pain is well controlled we will continue with current treatment plan, discontinue NovoLog 12 units before each meal and continue statin scale insulin as the patient blood sugars continue to be low patient has not been getting her Rybelsus which should be once a day in the morning. 03/19: Patient sitting up in her recliner, she doing much better, she has not had a bowel movement in quite some time, she denies any chest pain or shortness breath, her pain is well controlled, start the patient on lactulose 20 g orally twice every day, she did receive prune juice earlier today with results, physical therapy evaluation for possible subacute rehabilitation tomorrow morning. REVIEW OF SYSTEMS Constitutional: No fever, no chills, no night sweats. No weight change. No weakness, reports fatigue or lethargy. No daytime sleepiness. EENT: No headache. No dizziness. Reports difficulty swallowing. No nasal drainage or congestion. No epistaxis. No sore throat. Lungs: No shortness of breath, cough, no sputum production. No wheezing. Cardiovascular: No chest pain, no lower extremity edema. No palpitations. No paroxysmal nocturnal dyspnea. No orthopnea. No lightheadedness or dizziness. No syncopal episodes. Abdominal: Denies abdominal pain. Reports nausea, denies vomiting. Denies diarrhea. No constipation. No bloody or tarry stools. Reports loss of appetite. Genitourinary: No dysuria, increased frequency, urgency. No urinary retention. Musculoskeletal: No myalgias. No muscle weakness, reports balance dysfunction, reports gait dysfunction, reports frequent falls. No back pain. No neck pain. Pain left shoulder Integumentary: No wounds, no lesions. No rash or pruritus. No unusual bruising. No change in hair or nails. Neurologic: No aphasia. No facial droop. No change in mentation. No head injury. No headache. No paralysis. positive for paresthesia Psychiatric: positive for depression Endocrine: Mildly abnormal blood sugars. No weight change. PHYSICAL EXAMINATION Gen: This is a 60-year-old female. She is resting in bed and appears to be comfortable and in no acute distress. HEENT: Head is atraumatic, normocephalic. Pupils equal, round. Sclerae is anicteric. Mucous members of the mouth are somewhat dry. NECK: Supple. No JVD. No lymphadenopathy. No thyromegaly. LUNGS: Clear to auscultation. No wheezes or rhonchi. No intercostal retract ions. 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 ABDOMEN: Soft. Bowel sounds are present. No masses. Left upper quadrant tenderness. EXTREMITIES: No pedal edema. No calf tenderness. Dorsalis pedis +1 bilaterally. Left-sided arm sling in place. Dressing to the left shoulder, NEUROLOGICAL: Patient is awake, alert and oriented x3. Cranial nerves 2 through 12 are grossly intact, muscle power 4/5 in upper and lower extremities bilat erally Neuropathic changes in both feet, left big toe amputation ASSESSMENT AND PLAN 1. Left humerus fracture secondary to fall status post left shoulder hemiarthroplasty. Continue pain management with [place] or Dilaudid, left arm sling in place. Eliquis and aspirin resumed 2. Generalized weakness and balance dysfunction with workup outpatient and status post cervical disc fusion. 3. Diabetes mellitus type 2, uncontrolled with hyperglycemia. Continue Lantus 60 units at bedtime, Farxiga 10 mg daily, Rybelsus 14 mg twice daily, NovoLog scheduled 12 units before meals and at bedtime and scale before meals and at bedtime. 4. Coronary artery disease status post multiple PCI with ischemic cardiomyopathy. Discontinue Lasix, continue Lipitor 40 mg orally daily. 4. Hypertension and hypertensive cardiovascular disease. Hold Lasix. History of hypotension 5. Chronic DVT and PEs. Continue Eliquis 5 mg orally bid for life. 6. Orthostatic hypotension. Continue midodrine increased to 10 mg da 3 times a day . 7. Hyperlipidemia. Continue Lipitor 20 mg po daily. 8. Diabetic polyneuropathy. Continue gabapentin 800 mg 2 times daily . 9. Severe PAD. Continue Lipitor 20 mg orally daily, hold aspirin 81 mg daily. 10. Recurrent depression. Continue Cymbalta 60 mg daily. 11. GI prophylaxis. we will continue with Protonix 40 mg IV daily, 12. DVT prophylaxis. Eliquis 5 mg orally bid. 13. Constipation. Continue patient on Coumadin versus as well as lactulose 20 g orally twice every day. DISCHARGE PLAN [facility] on Saturday Objective - Vital Signs Vital signs: Vital Signs Temp 97.0 F L 03/19/21 08:00 Pulse 74 03/19/21 10:45 Resp 18 03/19/21 08:00 BP 132/82 03/19/21 10:45 Pulse Ox 100 03/19/21 08:00 Intake & Output 03/18/21 03/19/21 03/19/21 18:59 06:59 18:59 Weight 92.1 kg Other: Voiding Method Bedside Commode Toilet # Voids 4 3 - Labs CBC & Chem 7: 03/19/21 10:35 03/17/21 05:50 Labs: Abnormal Lab Results - Last 24 Hours (Table) 03/18/21 03/18/21 03/19/21 Range/Units 16:36 20:19 07:05 RBC (3.80-5.40) m/uL Hgb (11.4-16.0) gm/dL RDW (11.5-15.5) % POC Glucose (mg/dL) 224 H 119 H 115 H (75-99) mg/dL 03/19/21 03/19/21 Range/Units 10:35 11:34 RBC 3.77 L (3.80-5.40) m/uL Hgb 11.1 L (11.4-16.0) gm/dL RDW 16.3 H (11.5-15.5) % POC Glucose (mg/dL) 140 H (75-99) mg/dL
[2021-03-19] MEDS: LACTULOSE 20 GM/30 ML CUP PO SCH ×2 (12:23→21:23)
--- NOTE | 2021-03-19 15:03 | P.PN ---
Subjective HISTORY OF PRESENT ILLNESS: This is a 60-year-old female with a past medical history significant for coronary artery disease with previous PCI in the mid RCA and mid LAD in 2015, COPD, DVT, hyperlipidemia, hypertension,type 2 diabetes, peripheral vascular disease, and nicotine dependence. Recent anterior cervical fusion that was done at a [facility] and was filled in December 2020. Patient follows in the office with Dr. Bill. We have been asked to see the patient in consultation for cardiac clearance for surgery. Patient presents emergency department status post fall at home. Patient apparently was trying to get to the bathroom she became dizzy and lightheaded and fell directly on her left shoulder. She denies any loss consciousness. She states she has been having episodes of dizziness, lightheadedness and then falling afterwards, this has been going on for years. Sometimes she states she loses consciousness and does not remember what happens. She denies room spinning. She states it happens when she stands up, and starts walking, she will feel lightheaded and needs to sit back down. She also states she has neuropathy and her legs are weak and this contributes to her falls when she feels her legs give out. She states she has been started on midodrine due to her low blood pressure, but she doesnt believe this is helping her symptoms. She denies any chest pain, shortness of breath, palpitations. She states she has had a heart monitor in the past, about over a year ago, and there were no acute findings/arrhythmia. Her was unable to get her off the floor, so she was transferred to [facility] for further evaluation. Computed tomography scan of the head/neck reveal no acute processes. Pelvis x-ray revealed no acute processes. X-rays of the left shoulder demonstrated a displaced left proximal humerus fracture involving the humeral neck. Orthopedics was consulted. Plan for possible open reduction and internal fixation left proximal humerus fracture with Ortho tomororow 03/16. DIAGNOSTICS EKG reveals sinus rhythm, heart rate 93, no significant STT wave abnormalities Most recent cardiac catheterization 08/26/2015- patent stents in the mid RCA, patent stent in the mid LAD. Left ventricular systolic function is mildly impaired with an EF around 40-45%. Most recent stress test 08/30/2020exiscan- no evidence for reversible ischemia Most recent echocardiogram 08/30/2020 revealed ejection fraction 50-55%, moderate concentric LVH, left atrial is mildly dilated, mild mitral regurg itation Chest xray no acute cardiopulmonary process. Laboratory reviewed, WBC 12.2, hemoglobin 12.6, platelets 194, sodium 136, potassium 3.3, Current cardiac medications include rosuvastatin 10 mg nightly, potassium chloride 10 mg twice a day, aspirin 1 mg daily, midodrine 5 mg twice a day, Lasix 20 mg Q48 hours, Eliquis 5 mg twice a day. Patient is also on meclizine 12.5 mg daily when necessary. Addendum entered and electronically signed by Alexis Yen DO 03/15/21 21:16: Patient with recurrent falls which appear related to standing and becoming lightheaded almost every time she stands. She states her legs will become weak and shaky. She also had chronic pain in her calfs and thighs (may be related to her neuropathy), however much worse with minimal activity such as walking around a grocery store. Do not suspect any arrhythmiogenic etiology and appears more perfusion related. There is a consideration of possible PAD causing her lower extremity weakness as she does have bilateral poor posterior tibial and dorsalis pedis pulses, with history of CAD, PAD, tobacco abuse. Most recent arterial ultrasound lower extremities from October 2015 and may consider repeating outpt. We will check orthostatic vitals. Continue with IV fluids given lactic acidosis and borderline blood pressure. Hold Lasix. May also consider workup of adrenal insufficiency as cause of abdominal pain and lightheadedness, obtain a.m. cortisol level. Continue with Midodrine. 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 AV fistula can cause high output failure or issues with hypotension however appears that the AV fistula has been thrombosed for some time. Patient also has significant decreased oral intake secondary to feeling nauseous and bloated and food coming up if she eats too much. She states then she will usually become nauseous, typically after showering however can happen at any time and then emesis. Discussed possibility of gastroparesis and does not believe she has had a gastric emptying study previously and no prior diagnosis. Reviewed workup from [facility], [place] and [facility] with no mention of gastric emptying study or gastroparesis however would strongly consider given her history of uncontrolled diabetes, symptoms and neuropathy. This may be performed on an outpatient basis, may consider Reglan. Symptoms are not classic for chronic mesenteric ischemia with prior CAT scan reviewed and no obvious stenosis around the mesenteric arteries and this appears less likely. Patient with multiple medical problems, multiple comorbidities, coronary artery disease and significant debility. Patient denies any current angina-type symptoms. Patient is high risk however had recent echocardiogram and stress test in August 2020 without significant abnormalities and tolerated recent cervical surgery. Patient is high risk for proposed surgery however appears reasonable candidate and benefits appear to outweigh the risks. Discussed with patient and patient understanding. Patient cleared from cardiology standpoint for proposed surgery. 03/16/2021 Patient examined this morning. She is sitting up in the chair. Sling to left arm present. Patient denies chest pain or pressure. Denies shortness of breath. She is scheduled for surgery today with orthopedics. Blood pressure this morning supine 105/70. Blood pressure sitting 76/61. Cortisol level 16. 03/17/2021 Patient is s/p left shoulder hemiarthoplasty with Dr. Coffman. POD #1. Patient examined at the bedside. Blood pressure supine 124/71. Blood pressure sitting 105/68. Blood pressure standing 83/46. The patient continues to report lightheadedness. 03/18 Patient seen and examined. Patient states she was working with physical therapy and somewhat more steady on her feet when standing. Florinef was added yesterday. Blood pressures predominantly in the low 100s. She denies any chest pain or pressure. She is concerned about would like higher pain medications however has been fairly somnolent with pain meds in the past. 03/19 Patient seen and examined. Patient still with significant orthostatic vital signs with drop in systolic started in the 70s. She does feel somewhat better standing and not as lightheaded however. She has been on the Midrin 10 mg 3 times a day as well as the Florinef. She denies any chest pain or pressure. She does have Brent wraps on her lower extremities. PHYSICAL EXAM: VITAL SIGNS: Reviewed. GENERAL: Well-developed in no acute distress. NECK: Supple. No JVD or thyromegaly LUNGS: Respirations even and unlabored. Lungs essentially clear to auscultation bilaterally. HEART: Regular rate and rhythm. S1 and S2 heard. EXTREMITIES: Normal range of motion. No clubbing or cyanosis. Peripheral pulses intact. Trace bilateral lower extremity edema ASSESSMENT: Displaced left humeral neck fracture Orthostatic hypotension Fall at home Dizziness History of lightheadedness, dizziness and falls at home Coronary artery disease with previous PCI in the mid RCA and mid LAD in 2014 COPD History of DVT s/p IVC filter currently on eliquis Hyperlipidemia History of Hypertension August 2020 patient recently taken off ACEI and beta nisa secondary to hypotension Type 2 diabetes Peripheral vascular disease Nicotine dependence Recent anterior cervical fusion that was done at a [facility] PLAN: Continue Midodrine to 10mg 3 times a day Continue Florinef 0.1 mg daily Discussed importance of slowly going from a lying to seated to standing position. Continue with compression stockings, Brent wraps of her lower extremities Continue aspirin and Eliquis. Hold antihypertensive medications. Objective - Vital Signs Vital signs: Vital Signs Temp 98.1 F 03/19/21 14:00 Pulse 76 03/19/21 14:00 Resp 16 03/19/21 14:00 BP 119/72 03/19/21 14:00 Pulse Ox 96 03/19/21 14:00 Intake & Output 03/18/21 03/19/21 03/19/21 18:59 06:59 18:59 Weight 92.1 kg Other: Voiding Method Bedside Commode Toilet # Voids 4 3 - Labs CBC & Chem 7: 03/19/21 10:35 03/17/21 05:50 Labs: Abnormal Lab Results - Last 24 Hours (Table) 03/18/21 03/18/21 03/19/21 Range/Units 16:36 20:19 07:05 RBC (3.80-5.40) m/uL Hgb (11.4-16.0) gm/dL RDW (11.5-15.5) % POC Glucose (mg/dL) 224 H 119 H 115 H (75-99) mg/dL 03/19/21 03/19/21 Range/Units 10:35 11:34 RBC 3.77 L (3.80-5.40) m/uL Hgb 11.1 L (11.4-16.0) gm/dL RDW 16.3 H (11.5-15.5) % POC Glucose (mg/dL) 140 H (75-99) mg/dL
[2021-03-19 17:03] LABS: Glucose,Whole Blood 153 mg/dL (75-99)
[2021-03-19 20:44] LABS: Glucose,Whole Blood 164 mg/dL (75-99)
[2021-03-19] MEDS ORDERED: INSULIN DETEMIR (LEVEMIR) 100 UNIT/ML SYR SQ SCH (21:00)
[2021-03-19] MEDS: ATORVASTATIN 20 MG TAB PO SCH (21:21)
[2021-03-20] MEDS: HYDROmorphone 0.5 MG/0.5 ML SYRINGE IVP PRN ×2 (00:59→03:59)
[2021-03-20] MEDS: LACTATED RINGERS 1,000 ML IV SCH ×3 (05:06→14:30)
[2021-03-20 07:22] LABS: Glucose,Whole Blood 146 mg/dL (75-99)
[2021-03-20] MEDS: NON FORMULARY DRUG (Icosapent Ethyl [Icosapent Ethyl] 1 GM Capsule) PO SCH (07:36)
[2021-03-20] MEDS: ASPIRIN 81 MG PO SCH (07:45)
[2021-03-20] MEDS: MIDODRINE 5 MG TAB PO SCH ×2 (07:45→12:54)
[2021-03-20] MEDS: DULoxetine HCL 60 MG CAPSULE.DR PO SCH (07:45)
[2021-03-20] MEDS: APIXABAN 5 MG TAB PO SCH (07:45)
[2021-03-20] MEDS: HYDROcodone/APAP 10-325MG 1 EACH TAB PO SCH ×2 (07:45→12:54)
[2021-03-20] MEDS: PANTOPRAZOLE 40 MG TABLET PO SCH (07:46)
[2021-03-20] MEDS: POTASSIUM CHLORIDE ER 10 MEQ TAB.ER.PRT PO SCH (07:46)
[2021-03-20] MEDS: INSULIN ASPART (NovoLOG) 100 UNIT/ML VIAL SQ SCH ×2 (07:46→12:43)
[2021-03-20] MEDS: METOCLOPRAMIDE 10 MG TAB PO SCH ×2 (07:46→12:54)
[2021-03-20] MEDS: GABAPENTIN 400 MG CAP PO SCH (07:46)
[2021-03-20] MEDS: FLUDROCORTISONE 0.1 MG TAB PO SCH (07:47)
[2021-03-20] MEDS: SEMAGLUTIDE 14 MG PO SCH (07:47)
[2021-03-20] MEDS: NON FORMULARY DRUG (Dapagliflozin Propanediol [Farxiga] 10 MG Tablet) PO SCH (07:47)
--- NOTE | 2021-03-20 08:05 | P.PN ---
Subjective Progress Note Date: 03/20/21 Progress Note Date: 03/20/21 HISTORY OF PRESENT ILLNESS This is a 60-year-old female patient of Dr. Tejeda and Dr. Bill with history of CAD with multiple cardiac stents in mid RCA, mid LAD, obtuse marginal branch and followed by Dr. Bill closely, peripheral artery disease with previous stenting done as well has amputation of the right great toe secondary to osteomyelitis, CVA with no residual deficits, hypertension, COPD, diabetes mellitus type 2, previous multiple DVT and PE requiring chronic anticoagulation on eliquis, history of GI bleed secondary to antral gastritis, esophagitis vitamin D deficiency, orthostatic hypotension on midodrine. Patient had a fall about 11:15 last evening. Patient states that she was getting up to go into the bathroom. She landed on her left arm. Her was unable to get her up and EMS was called. Patient has not been eating very much. She was recently started on Rybelsus and 7 mg twice daily and this was increased approximately one to 2 weeks ago to 14 mg. A1c 02/14/2021 was 9.6. Patient has had decreased appetite and taking Zofran. She states that she had EMG done last week at [facility] due to ongoing problems with balance and neuropathy. Patient was brought into [facility] emergency center for evaluation. Patient was afebrile, heart rate 105, blood pressure 139/90 and pulse ox 97% on room air. WBC 15.9, hemoglobin 16.3, platelet count 295. INR 1.6. Sodium 133, potassium 3.8, chloride 94, CO2 28, BUN 8 and creatinine 1.07. Blood sugar 301. Lactic acid initially 3.4 and repeat 1.7. Magnesium 1.3, total bilirubin 1.1, AST 51, ALT 25, alkaline phosphatase 111. Phosphorus 3.6. Albumin 3.4. Troponin negative. Left shoulder x-ray showed humeral neck fracture appears to be rotated and impacted. Chest x-ray is normal. CT of the brain was negative. No acute intracranial abnormality. CT of the cervical spine showed previous anterior fusion surgery. No fracture seen. Patient is status post 2.5 L of IV fluid, magnesium replacement, morphine and Dilaudid, admitted to the orthopedic service and we've been asked to follow the patient for medical management. Eliquis and aspirin placed on hold in case surgical intervention is necessary. 03/15: Patient complains of significant pain to the left arm. She states she was vomiting last evening. She denies passing gas or having a bowel movement. She denies fever. She has been seen by orthopedics this morning and plan is for cardiology consult for clearance for surgery scheduled on for open reduction internal fixation of the left proximal humerus fracture. Patient has been afebrile, heart rate 86, blood pressure 92/61, pulse ox 92% on room air. Sugars are running between 75 and 165. 03/16: Patient denies any chest pain or shortness of breath. She still is having nausea on and off and feels tired. Patient has been seen by cardiology and cleared for surgery, midodrine increased to 10 mg and Lasix discontinued. Patient started on IV fluids and 500 mL fluid bolus. She remains afebrile, heart rate 100, blood pressure 104/71, pulse ox 98% on room air. Orthostatic vital signs were positive. WBC 11.2, hemoglobin 13.3, platelet count 201. Electrolytes are normal. BUN 20 and creatinine 0.72. Blood sugars running between 110 and 205. AST 40 otherwise liver function tests are normal. Cortisol level XVI. 03/17: Yesterday, patient underwent left shoulder hemiarthroplasty for displaced left proximal humerus fracture. The patient continues to have pain in the area and difficulty getting comfortable. She is still not eating very much. Patient has been afebrile, heart rate 86, blood pressure 121/71, pulse ox 93% on room air. Blood work today reveals WBC 18.1, hemoglobin 11.2, platelet count 237. Sodium 134, potassium 5.3, chloride 98, CO2 26, BUN 11 creatinine 0.8. Blood sugars are running between 188 and 223. AST 50, ALT 29, alkaline phosphatase 81. Patient has been seen by PT and OT with recommendations for subacute rehab and patient has chosen [facility]. Most likely patient will be here until Saturday to get pain control. Ice will be added to apply to the left shoulder, incentive spirometry added, patient is wearing AMANDEEP hose and on chronic eliquis. 03/18: Patient sitting up in the recliner she is doing a lot better today her blood glucose level morning was 71, she is eating better, her pain is well controlled we will continue with current treatment plan, discontinue NovoLog 12 units before each meal and continue statin scale insulin as the patient blood sugars continue to be low patient has not been getting her Rybelsus which should be once a day in the morning. 03/19: Patient sitting up in her recliner, she doing much better, she has not had a bowel movement in quite some time, she denies any chest pain or shortness breath, her pain is well controlled, start the patient on lactulose 20 g orally twice every day, she did receive prune juice earlier today with results, physical therapy evaluation for possible subacute rehabilitation tomorrow morning. 03/20: Patient sitting up in a recliner just feeling a lot better today, ashley tranues to have some pain in the left shoulder about 8 out of 10 intensity for which she is receiving Morley every 4 hours around the clock, we'll discontinue IV Dilaudid, we will try to transfer the patient to [facility] if okay with orthopedic surgery. REVIEW OF SYSTEMS Constitutional: No fever, no chills, no night sweats. No weight change. No weakness, reports fatigue or lethargy. No daytime sleepiness. EENT: No headache. No dizziness. Reports difficulty swallowing. No nasal drainage or congestion. No epistaxis. No sore throat. Lungs: No shortness of breath, cough, no sputum production. No wheezing. Cardiovascular: No chest pain, no lower extremity edema. No palpitations. No paroxysmal nocturnal dyspnea. No orthopnea. No lightheadedness or dizziness. No syncopal episodes. Abdominal: Denies abdominal pain. Reports nausea, denies vomiting. Denies diarrhea. No constipation. No bloody or tarry stools. Reports loss of appetite. Genitourinary: No dysuria, increased frequency, urgency. No urinary retention. Musculoskeletal: No myalgias. No muscle weakness, reports balance dysfunction, reports gait dysfunction, reports frequent falls. No back pain. No neck pain. Pain left shoulder Integumentary: No wounds, no lesions. No rash or pruritus. No unusual bruising. No change in hair or nails. Neurologic: No aphasia. No facial droop. No change in mentation. No head injury. No headache. No paralysis. positive for paresthesia Psychiatric: positive for depression Endocrine: Mildly abnormal blood sugars. No weight change. PHYSICAL EXAMINATION Gen: This is a 60-year-old female. She is resting in bed and appears to be comfortable and in no acute distress. HEENT: Head is atraumatic, normocephalic. Pupils equal, round. Sclerae is anicteric. Mucous members of the mouth are somewhat dry. NECK: Supple. No JVD. No lymphadenopathy. No thyromegaly. LUNGS: Clear to auscultation. No wheezes or rhonchi. No intercostal retractions. 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 ABDOMEN: Soft. Bowel sounds are present. No masses. Left upper quadrant tenderness. EXTREMITIES: No pedal edema. No calf tenderness. Dorsalis pedis +1 bilater ally. Left-sided arm sling in place. Dressing to the left shoulder, NEUROLOGICAL: Patient is awake, alert and oriented x3. Cranial nerves 2 through 12 are grossly intact, muscle power 4/5 in upper and lower extremities bilaterally Neuropathic changes in both feet, left big toe amputation ASSESSMENT AND PLAN 1. Left humerus fracture secondary to fall status post left shoulder hemiarthroplasty. Continue pain management with Morley or Dilaudid, left arm sling in place. Eliquis and aspirin resumed 2. Generalized weakness and balance dysfunction with workup outpatient and status post cervical disc fusion. 3. Diabetes mellitus type 2, uncontrolled with hyperglycemia. Continue Lantus 60 units at bedtime, Farxiga 10 mg daily, Rybelsus 14 mg twice daily, NovoLog scheduled 12 units before meals and at bedtime and scale before meals and at bedtime. 4. Coronary artery disease status post multiple PCI with ischemic cardiomyopathy. Discontinue Lasix, continue Lipitor 40 mg orally daily. 4. Hypertension and hypertensive cardiovascular disease. Hold Lasix. History of hypotension 5. Chronic DVT and PEs. Continue Eliquis 5 mg orally bid for life. 6. Orthostatic hypotension. Continue midodrine increased to 10 mg da 3 times a day . 7. Hyperlipidemia. Continue Lipitor 20 mg po daily. 8. Diabetic polyneuropathy. Continue gabapentin 800 mg 2 times daily . 9. Severe PAD. Continue Lipitor 20 mg orally daily, hold aspirin 81 mg daily. 10. Recurrent depression. Continue Cymbalta 60 mg daily. 11. GI prophylaxis. we will continue with Protonix 40 mg IV daily, 12. DVT prophylaxis. Eliquis 5 mg orally bid. 13. Constipation. Continue patient on Coumadin versus as well as lactulose 20 g orally twice every day. 14. Medically stable to transfer to [facility] DISCHARGE PLAN [facility] on Saturday Objective - Vital Signs Vital signs: Vital Signs Temp 98.3 F 03/20/21 00:56 Pulse 84 03/20/21 00:56 Resp 16 03/20/21 00:56 BP 114/72 03/20/21 00:56 Pulse Ox 99 03/20/21 00:56 Intake & Output 03/19/21 03/20/21 03/20/21 18:59 06:59 18:59 Weight 91.9 kg Other: Voiding Method Toilet # Voids 4 1 # Bowel Movements 1 - Labs CBC & Chem 7: 03/19/21 10:35 03/17/21 05:50 Labs: Abnormal Lab Results - Last 24 Hours (Table) 03/19/21 03/19/21 03/19/21 Range/Units 10:35 11:34 15:34 RBC 3.77 L (3.80-5.40) m/uL Hgb 11.1 L (11.4-16.0) gm/dL RDW 16.3 H (11.5-15.5) % POC Glucose (mg/dL) 140 H (75-99) mg/dL Troponin I 0.090 H* (0.000-0.034) ng/mL 03/19/21 03/19/21 03/19/21 Range/Units 17:02 19:09 20:41 RBC (3.80-5.40) m/uL Hgb (11.4-16.0) gm/dL RDW (11.5-15.5) % POC Glucose (mg/dL) 153 H 164 H (75-99) mg/dL Troponin I 0.092 H* (0.000-0.034) ng/mL 03/19/21 03/20/21 Range/Units 22:26 07:20 RBC (3.80-5.40) m/uL Hgb (11.4-16.0) gm/dL RDW (11.5-15.5) % POC Glucose (mg/dL) 146 H (75-99) mg/dL Troponin I 0.085 H* (0.000-0.034) ng/mL
[2021-03-20 08:07] VITALS: RESP 19
[2021-03-20 08:58] LABS: Basophils # (A) 0.04 X 10*3/uL (0.00-0.10); Basophils % (A) 0.4 %; Eosinophils # (A) 0.35 X 10*3/uL (0.04-0.35); Eosinophils % (A) 3.5 %; HCT 33.4 % (37.2-46.3); HGB 10.3 g/dL (12.0-15.0); Lymphocytes # (A) 1.92 X 10*3/uL (0.90-5.00); Lymphocytes % (A) 19.4 %; MCH 28.9 pg (27.0-32.0); MCHC 30.8 g/dL (32.0-37.0); MCV 93.8 fL (80.0-97.0); Monocytes # (A) 0.64 X 10*3/uL (0.20-1.00); Monocytes % (A) 6.5 %; Neutrophils # (A) 6.89 X 10*3/uL (1.80-7.70); Neutrophils % (A) 69.6 %; Platelet Count 213 X 10*3/uL (140-440); RBC 3.56 X 10*6/uL (4.10-5.20); RDW 16.1 % (11.5-14.5)
[2021-03-20 09:43] LABS: African American GFR (CKD) 93.5 (60.0-200.0); Albumin/Globulin Ratio 1.43 (1.60-3.17); Anion Gap 9.1 mmol/L (4.00-12.00); BUN/Creat Ratio 8.75 Ratio (12.00-20.00); Calcium 8.2 mg/dL (8.7-10.3); Carbon Dioxide 25.9 mmol/L (21.6-31.8); Globulin 2.1 g/dL (1.6-3.3); Non-African American GFR(CKD) 80.7 (60.0-200.0); Potassium 3.9 mmol/L (3.5-5.5); Total Bilirubin 0.7 mg/dL (0.3-1.2); Total Protein 5.1 g/dL (6.2-8.2)
--- NOTE | 2021-03-20 11:10 | P.PN ---
Subjective Progress Note Date: 03/20/21 HISTORY OF PRESENT ILLNESS: This is a 60-year-old female with a past medical history significant for coronary artery disease with previous PCI in the mid RCA and mid LAD in 2014, [place] PD, DVT, hyperlipidemia, hypertension,type 2 diabetes, peripheral vascular disease, and nicotine dependence. Recent anterior cervical fusion that was done at a [facility] and was filled in December 2020. Patient follows in the office with Dr. Bill. We have been asked to see the patient in consultation for cardiac clearance for surgery. Patient presents emergency department status post fall at home. Patient apparently was trying to get to the bathroom she became dizzy and lightheaded and fell directly on her left shoulder. She denies any loss consciousness. She states she has been having episodes of dizziness, lightheadedness and then falling afterwards, this has been going on for years. Sometimes she states she loses consciousness and does not remember what happens. She denies room spinning. She states it happens when she stands up, and starts walking, she will feel lightheaded and needs to sit back down. She also states she has neuropathy and her legs are weak and this contributes to her falls when she feels her legs give out. She states she has been started on midodrine due to her low blood pressure, but she doesnt believe this is helping her symptoms. She denies any chest pain, shortness of breath, palpitations. She states she has had a heart monitor in the past, about over a year ago, and there were no acute findings/arrhythmia. Her was unable to get her off the floor, so she was transferred to [facility] for further evaluation. Computed tomography scan of the head/neck reveal no acute processes. Pelvis x-ray revealed no acute processes. X-rays of the left shoulder demonstrated a displaced left proximal humerus fracture involving the humeral neck. Orthopedics was consulted. Plan for possible open reduction and internal fixation left proximal humerus fracture with Ortho tomororow 03/16. DIAGNOSTICS EKG reveals sinus rhythm, heart rate 93, no significant STT wave abnormalities Most recent cardiac catheterization 08/26/2015- patent stents in the mid RCA, patent stent in the mid LAD. Left ventricular systolic function is mildly impaired with an EF around 40-45%. Most recent stress test 1Lexiscan- no evidence for reversible ischemia Most recent echocardiogram 08/30/2020 revealed ejection fraction 50-55%, moderate concentric LVH, left atrial is mildly dilated, mild mitral regurgitation Chest xray no acute cardiopulmonary process. Laboratory reviewed, WBC 12.2, hemoglobin 12.6, platelets 194, sodium 136, potassium 3.3, Current cardiac medications include rosuvastatin 10 mg nightly, potassium chloride 10 mg twice a day, aspirin 1 mg daily, midodrine 5 mg twice a day, Lasix 20 mg Q48 hours, Eliquis 5 mg twice a day. Patient is also on meclizine 12.5 mg daily when necessary. Addendum entered and electronically signed by Alexis Yen DO 03/15/21 21:16: Patient with recurrent falls which appear related to standing and becoming lightheaded almost every time she stands. She states her legs will become weak and shaky. She also had chronic pain in her calfs and thighs (may be related to her neuropathy), however much worse with minimal activity such as walking around a grocery store. Do not suspect any arrhythmiogenic etiology and appears more perfusion related. There is a consideration of possible PAD causing her lower extremity weakness as she does have bilateral poor posterior tibial and dorsalis pedis pulses, with history of CAD, PAD, tobacco abuse. Most recent arterial ultrasound lower extremities from October 2015 and may consider repeating outpt. We will check orthostatic vitals. Continue with IV fluids given lactic acidosis and borderline blood pressure. Hold Lasix. May also consider workup of adrenal insufficiency as cause of abdominal pain and lightheadedness, obtain a.m. cortisol level. Continue with Midodrine. 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 AV fistula can cause high output failure or issues with hypotension however appears that the AV fistula has been thrombosed for some time. Patient also has significant decreased oral intake secondary to feeling nauseous and bloated and food coming up if she eats too much. She states then she will usually become nauseous, typically after showering however can happen at any time and then emesis. Discussed possibility of gastroparesis and does not believe she has had a gastric emptying study previously and no prior diagnosis. Reviewed workup from [facility], [place] and [facility] with no mention of gastric emptying study or gastroparesis however would strongly consider given her history of uncontrolled diabetes, symptoms and neuropathy. This may be performed on an outpatient basis, may consider Reglan. Symptoms are not classic for chronic mesenteric ischemia with prior CAT scan rev iewed and no obvious stenosis around the mesenteric arteries and this appears less likely. Patient with multiple medical problems, multiple comorbidities, coronary artery disease and significant debility. Patient denies any current angina-type symptoms. Patient is high risk however had recent echocardiogram and stress test in August 2020 without significant abnormalities and tolerated recent c ervical surgery. Patient is high risk for proposed surgery however appears reasonable candidate and benefits appear to outweigh the risks. Discussed with patient and patient understanding. Patient cleared from cardiology standpoint for proposed surgery. 03/16/2021 Patient examined this morning. She is sitting up in the chair. Sling to left arm present. Patient denies chest pain or pressure. Denies shortness of breath. She is scheduled for surgery today with orthopedics. Blood pressure this morning supine 105/70. Blood pressure sitting 76/61. Cortisol level 16. 03/17/2021 Patient is s/p left shoulder hemiarthoplasty with Dr. Coffman. POD #1. Patient examined at the bedside. Blood pressure supine 124/71. Blood pressure sitting 105/68. Blood pressure standing 83/46. The patient continues to report lightheadedness. 03/20/2021 Patient examined this morning. She is sitting up in the chair. Denies chest pain or pressure. Denies shortness of breath. Blood pressure this morning 109/70. Patient is on room air with oxygen saturations greater then 92%. Heart rate in the 80s. Patient has discharge orders today to go to [facility]. PHYSICAL EXAM: VITAL SIGNS: Reviewed. GENERAL: Well-developed in no acute distress. NECK: Supple. No JVD or thyromegaly LUNGS: Respirations even and unlabored. Lungs essentially clear to auscultation bilaterally. HEART: Regular rate and rhythm. S1 and S2 heard. EXTREMITIES: Normal range of motion. No clubbing or cyanosis. Peripheral pulses intact. Trace bilateral lower extremity edema ASSESSMENT: Displaced left humeral neck fracture Orthostatic hypotension Fall at home Dizziness History of lightheadedness, dizziness and falls at home Coronary artery disease with previous PCI in the mid RCA and mid LAD in 2014 COPD History of DVT s/p IVC filter currently on eliquis Hyperlipidemia History of Hypertension August 2020 patient recently taken off ACEI and beta nisa secondary to hypotension Type 2 diabetes Peripheral vascular disease Nicotine dependence Recent anterior cervical fusion that was done at a [facility] PLAN: Continue current cardiac medications Patient stable for DC to [facility]CF from a cardiac standpoint We will sign off. Please reconsult if needed. Nurse practitioner note has been reviewed by physician. Signing provider agrees with the documented findings, assessment, and plan of care. Objective - Vital Signs Vital signs: Vital Signs Temp 98 F 03/20/21 08:00 Pulse 75 03/20/21 08:00 Resp 19 03/20/21 08:00 BP 109/70 03/20/21 08:00 Pulse Ox 97 03/20/21 08:00 Intake & Output 03/19/21 03/20/21 03/20/21 18:59 06:59 18:59 Weight 91.9 kg Other: Voiding Method Toilet # Voids 4 1 # Bowel Movements 1 - Labs CBC & Chem 7: 03/20/21 04:22 03/20/21 04:22 Labs: Abnormal Lab Results - Last 24 Hours (Table) 03/19/21 03/19/21 03/19/21 Range/Units 10:35 11:34 15:34 RBC 3.77 L (3.80-5.40) m/uL Hgb 11.1 L (11.4-16.0) gm/dL Hct (37.2-46.3) % MCHC (32.0-37.0) g/dL RDW 16.3 H (11.5-15.5) % Immature Gran # (0.00-0.04) X 10*3/uL BUN (9.0-27.0) mg/dL BUN/Creatinine Ratio (12.00-20.00) Ratio Glucose (70-110) mg/dL POC Glucose (mg/dL) 140 H (75-99) mg/dL Calcium (8.7-10.3) mg/dL AST (13-35) U/L Troponin I 0.090 H* (0.000-0.034) ng/mL Total Protein (6.2-8.2) g/dL Albumin (3.80-4.90) g/dL Albumin/Globulin Ratio (1.60-3.17) g/dL 03/19/21 03/19/21 03/19/21 Range/Units 17:02 19:09 20:41 RBC (3.80-5.40) m/uL Hgb (11.4-16.0) gm/dL Hct (37.2-46.3) % MCHC (32.0-37.0) g/dL RDW (11.5-15.5) % Immature Gran # (0.00-0.04) X 10*3/uL BUN (9.0-27.0) mg/dL BUN/Creatinine Ratio (12.00-20.00) Ratio Glucose (70-110) mg/dL POC Glucose (mg/dL) 153 H 164 H (75-99) mg/dL Calcium (8.7-10.3) mg/dL AST (13-35) U/L Troponin I 0.092 H* (0.000-0.034) ng/mL Total Protein (6.2-8.2) g/dL Albumin (3.80-4.90) g/dL Albumin/Globulin Ratio (1.60-3.17) g/dL 03/19/21 03/20/21 03/20/21 Range/Units 22:26 04:22 04:22 RBC 3.56 L (3.80-5.40) m/uL Hgb 10.3 L (11.4-16.0) gm/dL Hct 33.4 L (37.2-46.3) % MCHC 30.8 L (32.0-37.0) g/dL RDW 16.1 H (11.5-15.5) % Immature Gran # 0.06 H (0.00-0.04) X 10*3/uL BUN 7.0 L (9.0-27.0) mg/dL BUN/Creatinine Ratio 8.75 L (12.00-20.00) Ratio Glucose 129 H (70-110) mg/dL POC Glucose (mg/dL) (75-99) mg/dL Calcium 8.2 L (8.7-10.3) mg/dL AST 57 H (13-35) U/L Troponin I 0.085 H* (0.000-0.034) ng/mL Total Protein 5.1 L (6.2-8.2) g/dL Albumin 3.00 L (3.80-4.90) g/dL Albumin/Globulin Ratio 1.43 L (1.60-3.17) g/dL 03/20/21 Range/Units 07:20 RBC (3.80-5.40) m/uL Hgb (11.4-16.0) gm/dL Hct (37.2-46.3) % MCHC (32.0-37.0) g/dL RDW (11.5-15.5) % Immature Gran # (0.00-0.04) X 10*3/uL BUN (9.0-27.0) mg/dL BUN/Creatinine Ratio (12.00-20.00) Ratio Glucose (70-110) mg/dL POC Glucose (mg/dL) 146 H (75-99) mg/dL Calcium (8.7-10.3) mg/dL AST (13-35) U/L Troponin I (0.000-0.034) ng/mL Total Protein (6.2-8.2) g/dL Albumin (3.80-4.90) g/dL Albumin/Globulin Ratio (1.60-3.17) g/dL
[2021-03-20 11:22] LABS: Glucose,Whole Blood 188 mg/dL (75-99)
--- NOTE | 2021-03-20 12:33 | P.PN ---
Subjective Progress Note Date: 03/20/21 Principal diagnosis: Left proximal humerus fracture Patient was evaluated today at bedside, she is resting in her hospital chair. She is utilizing the arm sling at this time. She currently denies any headaches, lightheadedness, chest pain or shortness of breath. Objective - Vital Signs Vital signs: Vital Signs Temp 98 F 03/20/21 08:00 Pulse 75 03/20/21 08:00 Resp 19 03/20/21 08:00 BP 109/70 03/20/21 08:00 Pulse Ox 97 03/20/21 08:00 Intake & Output 03/19/21 03/20/21 03/20/21 18:59 06:59 18:59 Weight 91.9 kg Other: Voiding Method Toilet # Voids 4 1 # Bowel Movements 1 - Exam Gen: AOx3, NAD VSS stable at this time Integument: Incision is clean, dry and intact, Steri-Strips are in good position. There is obvious ecchymosis present in the lower arm surrounding the elbow and upper forearm Palpation: Obvious tenderness with palpation surrounding the shoulder, she is nontender throughout the elbow, forearm, hand and wrist Sensory Exam: Senory exam to light touch is intact C5-T1 Motion: Patient is able to wiggle all fingers without difficulty, extension and flexion are intact at the wrist and elbow. Shoulder range of motion was not assessed Vascular: Radial and ulnar pulses are 2+ - Labs CBC & Chem 7: 03/20/21 04:22 03/20/21 04:22 Labs: Abnormal Lab Results - Last 24 Hours (Table) 03/19/21 03/19/21 03/19/21 Range/Units 15:34 17:02 19:09 RBC (4.10-5.20) X 10*6/uL Hgb (12.0-15.0) g/dL Hct (37.2-46.3) % MCHC (32.0-37.0) g/dL RDW (11.5-14.5) % Immature Gran # (0.00-0.04) X 10*3/uL BUN (9.0-27.0) mg/dL BUN/Creatinine Ratio (12.00-20.00) Ratio Glucose (70-110) mg/dL POC Glucose (mg/dL) 153 H (75-99) mg/dL Calcium (8.7-10.3) mg/dL AST (13-35) U/L Troponin I 0.090 H* 0.092 H* (0.000-0.034) ng/mL Total Protein (6.2-8.2) g/dL Albumin (3.80-4.90) g/dL Albumin/Globulin Ratio (1.60-3.17) g/dL 03/19/21 03/19/21 03/20/21 Range/Units 20:41 22:26 04:22 RBC 3.56 L (4.10-5.20) X 10*6/uL Hgb 10.3 L (12.0-15.0) g/dL Hct 33.4 L (37.2-46.3) % MCHC 30.8 L (32.0-37.0) g/dL RDW 16.1 H (11.5-14.5) % Immature Gran # 0.06 H (0.00-0.04) X 10*3/uL BUN (9.0-27.0) mg/dL BUN/Creatinine Ratio (12.00-20.00) Ratio Glucose (70-110) mg/dL POC Glucose (mg/dL) 164 H (75-99) mg/dL Calcium (8.7-10.3) mg/dL AST (13-35) U/L Troponin I 0.085 H* (0.000-0.034) ng/mL Total Protein (6.2-8.2) g/dL Albumin (3.80-4.90) g/dL Albumin/Globulin Ratio (1.60-3.17) g/dL 03/20/21 03/20/21 03/20/21 Range/Units 04:22 07:20 11:20 RBC (4.10-5.20) X 10*6/uL Hgb (12.0-15.0) g/dL Hct (37.2-46.3) % MCHC (32.0-37.0) g/dL RDW (11.5-14.5) % Immature Gran # (0.00-0.04) X 10*3/uL BUN 7.0 L (9.0-27.0) mg/dL BUN/Creatinine Ratio 8.75 L (12.00-20.00) Ratio Glucose 129 H (70-110) mg/dL POC Glucose (mg/dL) 146 H 188 H (75-99) mg/dL Calcium 8.2 L (8.7-10.3) mg/dL AST 57 H (13-35) U/L Troponin I (0.000-0.034) ng/mL Total Protein 5.1 L (6.2-8.2) g/dL Albumin 3.00 L (3.80-4.90) g/dL Albumin/Globulin Ratio 1.43 L (1.60-3.17) g/dL Assessment and Plan Assessment: Status post left shoulder hemiarthroplasty Status post fall from standing History of recent anterior cervical fusion, October 2020, stable appearing hardware Multiple medical comorbidities Plan: Pain control, plan for discharge on oral medication GI and DVT prophylaxis, her oral anticoagulation has been resumed Utilize arm sling at this time, andwristelbow exercises are fine, avoid any lifting with the left upper extremity Ice the shoulder often for symptomatic relief Other medical specialty recommendations Discharge planning: Plan for discharge to rehab today Time with Patient: Less than 30
--- NOTE | 2021-03-20 12:40 | P.DS ---
Providers Date of admission: 03/14/21 13:16 Expected date of discharge: 03/20/21 Attending physician: Turner Coffman Consults: 03/14/21 02:59 Consult Physician Routine Consulting Provider: Tramaine Tejeda Consult Reason/Comments: known Do you want consulting provider notified?: Yes Primary care physician: Tramaine Tejeda Hospital Course: Date of admission: 03/14/2021 Date of discharge: 03/20/2021 Admission diagnosis: Displaced and comminuted proximal left humerus fracture Discharge diagnosis: Status post left shoulder hemiarthroplasty Attending physician: Dr. Coffman Surgical procedures: Left shoulder hemiarthroplasties Brief history: Patient is a 60-year-old female who presented to [facility] on 03/14/2021 after sustaining a fall at home. It was determined she had a displaced three-part proximal left humerus fracture. Initial conservative measures were attempted, the patient's pain symptoms continue to worsen. We discussed surgical options, more specifically a left shoulder hemiarthroplasty. Risk and benefits of the procedure were discussed with patient, she wanted to proceed with surgery. She underwent surgery on 03/16/[address] Coffman. Hospital course: Details of patient's surgery can be found in operative report. Patient tolerated the procedure well and was subsequently transported to orthopedic floor. Patient's orthopeidc and medical care was provided daily. Patient had daily laboratory tests performed for evaluation of overall blood counts. Patient had daily physical therapy to include strengthening range of motion as well as education with walker ambulation. Patient was treated with Eliquis and aspirin for their postoperative DVT prophylaxis during their inpatient stay. Patient was noted to have a relatively uneventful postoperative course. Patient reported satisfactory pain control with oral pain medications by postoperative day 2. Patient showed satisfactory progress with physical therapy. Patient moved steadily through the program and had no difficulty meeting the goals by postoperative day 3. Given patient's otherwise satisfactory course and having met physical therapy goals, plan is to discharge patient rehab on postoperative day 3. Discharge condition/disposition: Patient will be discharged to rehab in stable condition. Discharge medications: please see medication list Discharge instructions: 1. Wound care and infection precautions, keep incision dry and covered while showering, no lotions, creams, moisturizers. No soaking, tubs, pools, hottubs. Do not scrub over the incision. 2. Utilize arm sling in the left shoulder 3. Ice and elevate when necessary. Do not exceed 20 minutes per hour with ice pack. 4. Utilize compression sleeve until seen at first follow up appointment. 7. Pain meds and anticoagulants per prescription. 8. Pain medication has potential to cause constipation. Increase oral fluid and fiber intake. Contact primary care provider if you have not had a bowel movement within 48 hours after discharge 9. No anti-inflammatory medication until discussed at first post operative visit, this including Motrin, Aleve, Mobic, Diclofenac 10. Follow up in office at 2 weeks postop with Reji Perez PA-C/Renan Tyson 11. Follow up with your primary care doctor 7-10 days after discharge. 12. Contact [facility] with any questions, . Procedures: Left shoulder hemiarthroplasty Patient Condition at Discharge: Fair Plan - Discharge Summary Discharge Rx Participant: No New Discharge Prescriptions: New Insulin Detemir (Levemir) [Levemir] 48 unit SQ HS syr HYDROcodone/APAP 10-325MG [Ridge 10-325] 1 each PO QID #12 tab Fludrocortisone [Florinef] 0.1 mg PO DAILY tab Gabapentin [Neurontin] 800 mg PO BID #60 cap INSULIN ASPART (NovoLOG) [NovoLOG (formulary)] 0 unit SQ ACHS vial Continue Gabapentin 800 mg PO BID Ergocalciferol [Vitamin D2 (DRISDOL)] 50,000 unit PO Q14D Rosuvastatin [Crestor] 10 mg PO HS #0 Apixaban [Eliquis] 5 mg PO BID #60 tab Aspirin [Bazine Aspirin EC] 81 mg PO DAILY HYDROcodone/APAP 10-325MG [Ridge 10-325] 1 tab PO QID Potassium Chloride [Klor-Con 10] 10 meq PO BID Midodrine [ProAmatine] 5 mg PO BID icosapent ethyL [Icosapent Ethyl] 2 gram PO BID-W/MEALS Furosemide [Lasix] 20 mg PO Q48H Semaglutide [Rybelsus] 14 mg PO AC-BID Albuterol Inhaler [Ventolin Hfa Inhaler] 2 puff INHALATION RT-QID PRN #1 inhaler PRN Reason: Shortness Of Breath Ondansetron Odt [Zofran ODT] 4 mg PO Q8HR PRN #12 tab PRN Reason: Nausea Omeprazole [PriLOSEC] 20 mg PO DAILY Dapagliflozin Propanediol [Farxiga] 10 mg PO DAILY DULoxetine HCL [Cymbalta] 60 mg PO DAILY Discontinued Insulin Lispro [humaLOG Kwikpen] 12 unit SQ ACHS Meclizine [Antivert] 12.5 mg PO DAILY PRN PRN Reason: Vertigo Insulin Glargine [Lantus] 60 unit SQ HS Discharge Medication List Gabapentin 800 mg PO BID 12/14/13 [History] Ergocalciferol [Vitamin D2 (DRISDOL)] 50,000 unit PO Q14D 08/26/15 [History] Rosuvastatin [Crestor] 10 mg PO HS #0 10/01/16 [Rx] Apixaban [Eliquis] 5 mg PO BID #60 tab 10/23/18 [Rx] Aspirin [Bazine Aspirin EC] 81 mg PO DAILY 09/07/19 [History] HYDROcodone/APAP 10-325MG [Ridge 10-325] 1 tab PO QID 10/13/19 [History] Albuterol Inhaler [Ventolin Hfa Inhaler] 2 puff INHALATION RT-QID PRN #1 inhaler 11/09/20 [Rx] Ondansetron Odt [Zofran ODT] 4 mg PO Q8HR PRN #12 tab 01/17/21 [Rx] DULoxetine HCL [Cymbalta] 60 mg PO DAILY 03/14/21 [History] Dapagliflozin Propanediol [Farxiga] 10 mg PO DAILY 03/14/21 [History] Furosemide [Lasix] 20 mg PO Q48H 03/14/21 [History] Midodrine [ProAmatine] 5 mg PO BID 03/14/21 [History] Omeprazole [PriLOSEC] 20 mg PO DAILY 03/14/21 [History] Potassium Chloride [Klor-Con 10] 10 meq PO BID 03/14/21 [History] Semaglutide [Rybelsus] 14 mg PO AC-BID 03/14/21 [History] icosapent ethyL [Icosapent Ethyl] 2 gram PO BID-W/MEALS 03/14/21 [History] Fludrocortisone [Florinef] 0.1 mg PO DAILY tab 03/20/21 [Rx] Gabapentin [Neurontin] 800 mg PO BID #60 cap 03/20/21 [Rx] HYDROcodone/APAP 10-325MG [Ridge 10-325] 1 each PO QID #12 tab 03/20/21 [Rx] INSULIN ASPART (NovoLOG) [NovoLOG (formulary)] 0 unit SQ ACHS vial 03/20/21 [Rx] Insulin Detemir (Levemir) [Levemir] 48 unit SQ HS syr 03/20/21 [Rx] Follow up Appointment(s)/Referral(s): Tramaine Tejeda MD [Primary Care Provider] - 1-2 days Deyvi Bill MD [STAFF PHYSICIAN] - 2 Weeks [facility], [NON-STAFF] - As Needed Renan Llamas PAC [PHYSICIAN PAN HELPER] - 2 Weeks Patient Instructions/Handouts: Midodrine (By mouth), Hypotension (GEN) Activity/Diet/Wound Care/Special Instructions: Orthopedic discharge instructions: 1. Resume home medications 2. Pain medication needed 3. Utilize arm sling a left shoulder 4. Ice and elevate shoulder often 5. Hand/wrist and elbow exercises daily 6. Avoid any excess use and therapy of the left shoulder itself 7. Plan for [facility]up at [facility] 2 weeks Discharge Disposition: TRANSFER TO SNF/ECF
[2021-03-20 13:18] VITALS: BP 127/83; PULSE 70; TEMP 98.4
== END 2021-03-20 16:20 | disposition home health service (06) | DRG 483 ==
LOC: EC 01:12 → 6NMEDSUR 02:58 → OBSVTOIN 13:16 → 6NMEDSUR 16:18 → 4SSUR 03-16 16:10
PROVIDERS: ADMIT Orthopaedic Surgery; ATTEND Orthopaedic Surgery
PROC: 0RRK0J6 Replacement of Left Shoulder Joint with Synthetic Substitute, Humeral Surface, Open Approach (ICD-10-PCS; principal; 2021-03-16 13:30)
DX: S42.232A 3-part fracture of surgical neck of left humerus, initial encounter for closed fracture (principal); E87.2 Acidosis; F33.9 Major depressive disorder, recurrent, unspecified; E27.40 Unspecified adrenocortical insufficiency; R47.01 Aphasia; E11.42 Type 2 diabetes mellitus with diabetic polyneuropathy; E11.51 Type 2 diabetes mellitus with diabetic peripheral angiopathy without gangrene; E11.43 Type 2 diabetes mellitus with diabetic autonomic (poly)neuropathy; E11.65 Type 2 diabetes mellitus with hyperglycemia; J44.9 Chronic obstructive pulmonary disease, unspecified; Z79.4 Long term (current) use of insulin; Z89.411 Acquired absence of right great toe; I11.9 Hypertensive heart disease without heart failure; K76.0 Fatty (change of) liver, not elsewhere classified; K31.84 Gastroparesis; E78.5 Hyperlipidemia, unspecified; R29.6 Repeated falls; F41.9 Anxiety disorder, unspecified; G89.4 Chronic pain syndrome; I25.5 Ischemic cardiomyopathy; I95.1 Orthostatic hypotension; K59.00 Constipation, unspecified; E55.9 Vitamin D deficiency, unspecified; Q96.9 Turner's syndrome, unspecified; I25.10 Atherosclerotic heart disease of native coronary artery without angina pectoris; M19.90 Unspecified osteoarthritis, unspecified site; M51.16 Intervertebral disc disorders with radiculopathy, lumbar region; I25.2 Old myocardial infarction; K21.9 Gastro-esophageal reflux disease without esophagitis; F17.210 Nicotine dependence, cigarettes, uncomplicated; Z71.6 Tobacco abuse counseling; Z79.01 Long term (current) use of anticoagulants; Z79.82 Long term (current) use of aspirin; Z79.899 Other long term (current) drug therapy; Z86.73 Personal history of transient ischemic attack (TIA), and cerebral infarction without residual deficits; Z85.828 Personal history of other malignant neoplasm of skin; Z86.718 Personal history of other venous thrombosis and embolism; Z86.711 Personal history of pulmonary embolism; Z95.828 Presence of other vascular implants and grafts; Z95.5 Presence of coronary angioplasty implant and graft; Z98.1 Arthrodesis status; Z91.81 History of falling; Z86.19 Personal history of other infectious and parasitic diseases; Z90.49 Acquired absence of other specified parts of digestive tract; Z87.19 Personal history of other diseases of the digestive system; Z98.891 History of uterine scar from previous surgery; Z90.89 Acquired absence of other organs; Z98.51 Tubal ligation status; Z87.39 Personal history of other diseases of the musculoskeletal system and connective tissue; Z98.818 Other dental procedure status; Z98.890 Other specified postprocedural states; Y92.009 Unspecified place in unspecified non-institutional (private) residence as the place of occurrence of the external cause; W01.0XXA Fall on same level from slipping, tripping and stumbling without subsequent striking against object, initial encounter; Z88.1 Allergy status to other antibiotic agents; Z83.3 Family history of diabetes mellitus; Z80.9 Family history of malignant neoplasm, unspecified; Z83.2 Family history of diseases of the blood and blood-forming organs and certain disorders involving the immune mechanism
CPT/HCPCS: 36415; 70450; 71045; 72125; 72170; 80053; 81003; 82533; 83605; 83735; 84100; 84484; 85025; 85027; 85610; 85730; 88305; 88311; 93005; 96361; 96365; 96366; 96375; 99285

== ENCOUNTER 2021-05-08 16:14 | Inpatient (IN) | payer MEDICARE, OTHER ==
--- NOTE | 2021-05-08 18:26 | ED ---
General Adult HPI - General Stated complaint: vomiting, weakness, chest pain Source: patient, RN notes reviewed Mode of arrival: ambulatory Limitations: no limitations - History of Present Illness Initial comments: This a 61-year-old female presents emergency Department chief complaint of generalized weakness. Patient states that she seen 5 weeks ago for a fall she sustained and fractured her left humerus. Patient states that she's been having lightheadedness and dizziness. She states at that time she was placed on some new medications for her blood pressure. States her blood pressures been going lower states that she just generalized weak, decreased oral intake she doesn't feel well. Patient does have prior cardiac disease. Patient denies any recent fevers or chills. Patient has no current shortness of breath. - Related Data Home Medications Medication Instructions Recorded Confirmed Ergocalciferol [Vitamin D2 50,000 unit PO Q14D 08/26/15 05/08/21 (DRISDOL)] Aspirin [[place] Aspirin EC] 81 mg PO DAILY 09/07/19 05/08/21 HYDROcodone/APAP 10-325MG [[place] 1 tab PO QID 10/13/19 05/08/21 10-325] DULoxetine HCL [Cymbalta] 60 mg PO DAILY 03/14/21 05/08/21 Dapagliflozin Propanediol [Farxiga] 10 mg PO DAILY 03/14/21 05/08/21 Furosemide [Lasix] 20 mg PO Q48H 03/14/21 05/08/21 Omeprazole [PriLOSEC] 20 mg PO DAILY 03/14/21 05/08/21 Potassium Chloride [Klor-Con 10 ER] 10 meq PO BID 03/14/21 05/08/21 Semaglutide [Rybelsus] 14 mg PO AC-BID 03/14/21 05/08/21 Insulin Glargine,Hum.rec.anlog 66 unit SQ HS 05/08/21 05/08/21 [Lantus Solostar Pen] Insulin Lispro [humaLOG Kwikpen] See Protocol SQ ACHS 05/08/21 05/08/21 Midodrine HCl [ProAmatine] 10 mg PO TID 05/08/21 05/08/21 Previous Rx's Medication Instructions Recorded Rosuvastatin [Crestor] 10 mg PO HS #0 10/01/16 Apixaban [Eliquis] 5 mg PO BID #60 tab 10/23/18 Albuterol Inhaler [Ventolin Hfa 2 puff INHALATION RT-QID PRN #1 11/09/20 Inhaler] inhaler Ondansetron Odt [Zofran ODT] 4 mg PO Q8HR PRN #12 tab 01/17/21 Gabapentin [Neurontin] 800 mg PO BID #60 cap 03/20/21 Allergies Allergy/AdvReac Type Severity Reaction Status Date / Time vancomycin Allergy Rash/Hives/and Verified 05/08/21 23:48 vomiting diarrhea/Swelling Review of Systems ROS Statement: Those systems with pertinent positive or pertinent negative responses have been documented in the HPI. ROS Other: All systems not noted in ROS Statement are negative. Past Medical History Past Medical History: Coronary Artery Disease (CAD), Cancer, Chest Pain / Angina, COPD, CVA/TIA, Diabetes Mellitus, Deep Vein Thrombosis (DVT), GERD/Reflux, Hyperlipidemia, Hypertension, Myocardial Infarction ([place]), Os teoarthritis (OA), Pulmonary Embolus (PE) Additional Past Medical History / Comment(s): SKIN CA. 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, NEUROPATHY LEGS & FEET, USING WALKER, .Mutiple DVT,mesentaric thrombosis x2 & PE, PAD, chronic pain syndrome, ddd lumbar region w/radiculopathy, HISTORY OF FALL 01/07/20 , tore rt rotator cuff, pancreatitis, fatty liver., Last Myocardial Infarction Date:: 2010 History of Any Multi-Drug Resistant Organisms: None Reported Past Surgical History: Section, Cholecystectomy, Heart Catheterization, Heart Catheterization With Stent, Orthopedic Surgery, Tonsillectomy, Tubal Ligation Additional Past Surgical History / Comment(s): 11 Stents in left leg, fistula left thigh, full mouth teeth extraction, TRAPEASE VENA CAVA FILTER, carpel t unnel, heart stents x4 rca and lad, tumor removal from uterus. Genital warts removed, INGRID. Skin cancer removed from neck, rt great toe amputated, colonoscopy Past Anesthesia/Blood Transfusion Reactions: No Reported Reaction, Motion Sickness Date of Last Stent Placement:: May 2016 Past Psychological History: Anxiety, Depression Additional Psychological History / Comment(s): Depression r/t health issues. Smoking Status: Current some day smoker Past Alcohol Use History: None Reported Additional Past Alcohol Use History / Comment(s): STARTED SMOKING IN 1993 SMOKES 1/2 PPD Past Drug Use History: None Reported - Past Family History Mother Family Medical History: Cancer, Congestive Heart Failure (CHF), Diabetes Mellitus, Myocardial Infarction ([place]) Additional Family Medical History / Comment(s): UTERINE CANCER Father Family Medical History: Coronary Artery Disease (CAD), Myocardial Infarction ([place]) Additional Family Medical History / Comment(s): Father at age 70. Sister(s) Family Medical History: Myocardial Infarction ([place]) Additional Family Medical History / Comment(s): Patient has one sister with myocardial infarction at age 55. Son(s) Family Medical History: Deep Vein Thrombosis (DVT), Pulmonary Embolus Additional Family Medical History / Comment(s): Patient has 2 sons and one has history of DVT and pulmonary embolism. Course Vital Signs 05/08/21 05/08/21 05/08/21 18:22 21:23 23:55 Temperature 98.4 F 98.0 F Pulse Rate 103 H 80 76 Respiratory 18 18 18 Rate Blood Pressure 97/65 130/83 123/79 O2 Sat by Pulse 98 98 98 Oximetry Medical Decision Making - Medical Decision Making This a 7-year-old female presented for near syncope, dizziness, blood pressure. Patient's pains have 20,000 white count, lactic acidosis urine after 2 L of fluid she is found to have hypomagnesemia. Patient is very unsteady when he relating will be admitted for further evaluation. - Lab Data Result diagrams: 05/08/21 18:28 05/08/21 18:28 Lab Results 05/08/21 05/08/21 05/08/21 Range/Units 18:28 18:28 18:28 WBC 19.0 H (3.8-10.6) k/uL RBC 6.27 H (3.80-5.40) m/uL Hgb 17.2 H D (11.4-16.0) gm/dL Hct 52.9 H (34.0-46.0) % MCV 84.4 D (80.0-100.0) fL MCH 27.5 (25.0-35.0) pg MCHC 32.6 (31.0-37.0) g/dL RDW 15.6 H (11.5-15.5) % Plt Count 297 (150-450) k/uL MPV 8.3 Neutrophils % 85 % Lymphocytes % 11 % Monocytes % 2 % Eosinophils % 1 % Basophils % 0 % Neutrophils # 16.2 H (1.3-7.7) k/uL Lymphocytes # 2.1 (1.0-4.8) k/uL Monocytes # 0.4 (0-1.0) k/uL Eosinophils # 0.2 (0-0.7) k/uL Basophils # 0.1 (0-0.2) k/uL Poikilocytosis Slight PT 11.5 (9.0-12.0) sec INR 1.1 (<1.2) APTT 25.9 (22.0-30.0) sec Sodium 134 L (137-145) mmol/L Potassium 3.2 L (3.5-5.1) mmol/L Chloride 92 L (98-107) mmol/L Carbon Dioxide 29 (22-30) mmol/L Anion Gap 13 mmol/L BUN 10 (7-17) mg/dL Creatinine 1.19 H (0.52-1.04) mg/dL Est GFR (CKD-EPI)AfAm 57 (>60 ml/min/1.73 sqM) Est GFR (CKD-EPI)NonAf 50 (>60 ml/min/1.73 sqM) Glucose 255 H (74-99) mg/dL Lactic Ac Sepsis Rflx Plasma Lactic Acid Mynor (0.7-2.0) mmol/L Calcium 9.6 (8.4-10.2) mg/dL Magnesium 1.4 L (1.6-2.3) mg/dL Total Bilirubin 1.7 H (0.2-1.3) mg/dL AST 41 H (14-36) U/L ALT 20 (4-34) U/L Alkaline Phosphatase 118 (38-126) U/L Troponin I (0.000-0.034) ng/mL Total Protein 7.3 (6.3-8.2) g/dL Albumin 3.7 (3.5-5.0) g/dL Urine Color Urine Appearance (Clear) Urine pH (5.0-8.0) Ur Specific Upson (1.001-1.035) Urine Protein (Negative) Urine Glucose (UA) (Negative) Urine Ketones (Negative) Urine Blood (Negative) Urine Nitrite (Negative) Urine Bilirubin (Negative) Urine Urobilinogen (<2.0) mg/dL Ur Leukocyte Esterase (Negative) Urine RBC (0-5) /hpf Urine WBC (0-5) /hpf Ur Squamous Epith Cells (0-4) /hpf Amorphous Sediment (None) /hpf Urine Bacteria (None) /hpf Hyaline Casts (0-2) /lpf Urine Mucus (None) /hpf 05/08/21 05/08/21 05/08/21 Range/Units 18:28 18:28 19:18 WBC (3.8-10.6) k/uL RBC (3.80-5.40) m/uL Hgb (11.4-16.0) gm/dL Hct (34.0-46.0) % MCV (80.0-100.0) fL MCH (25.0-35.0) pg MCHC (31.0-37.0) g/dL RDW (11.5-15.5) % Plt Count (150-450) k/uL MPV Neutrophils % % Lymphocytes % % Monocytes % % Eosinophils % % Basophils % % Neutrophils # (1.3-7.7) k/uL Lymphocytes # (1.0-4.8) k/uL Monocytes # (0-1.0) k/uL Eosinophils # (0-0.7) k/uL Basophils # (0-0.2) k/uL Poikilocytosis PT (9.0-12.0) sec INR (<1.2) APTT (22.0-30.0) sec Sodium (137-145) mmol/L Potassium (3.5-5.1) mmol/L Chloride (98-107) mmol/L Carbon Dioxide (22-30) mmol/L Anion Gap mmol/L BUN (7-17) mg/dL Creatinine (0.52-1.04) mg/dL Est GFR (CKD-EPI)AfAm (>60 ml/min/1.73 sqM) Est GFR (CKD-EPI)NonAf (>60 ml/min/1.73 sqM) Glucose (74-99) mg/dL Lactic Ac Sepsis Rflx Y Plasma Lactic Acid Mynor 2.5 H* (0.7-2.0) mmol/L Calcium (8.4-10.2) mg/dL Magnesium (1.6-2.3) mg/dL Total Bilirubin (0.2-1.3) mg/dL AST (14-36) U/L ALT (4-34) U/L Alkaline Phosphatase (38-126) U/L Troponin I <0.012 (0.000-0.034) ng/mL Total Protein (6.3-8.2) g/dL Albumin (3.5-5.0) g/dL Urine Color Urine Appearance (Clear) Urine pH (5.0-8.0) Ur Specific Upson (1.001-1.035) Urine Protein (Negative) Urine Glucose (UA) (Negative) Urine Ketones (Negative) Urine Blood (Negative) Urine Nitrite (Negative) Urine Bilirubin (Negative) Urine Urobilinogen (<2.0) mg/dL Ur Leukocyte Esterase (Negative) Urine RBC (0-5) /hpf Urine WBC (0-5) /hpf Ur Squamous Epith Cells (0-4) /hpf Amorphous Sediment (None) /hpf Urine Bacteria (None) /hpf Hyaline Casts (0-2) /lpf Urine Mucus (None) /hpf 05/08/21 05/08/21 Range/Units 22:14 22:29 WBC (3.8-10.6) k/uL RBC (3.80-5.40) m/uL Hgb (11.4-16.0) gm/dL Hct (34.0-46.0) % MCV (80.0-100.0) fL MCH (25.0-35.0) pg MCHC (31.0-37.0) g/dL RDW (11.5-15.5) % Plt Count (150-450) k/uL MPV Neutrophils % % Lymphocytes % % Monocytes % % Eosinophils % % Basophils % % Neutrophils # (1.3-7.7) k/uL Lymphocytes # (1.0-4.8) k/uL Monocytes # (0-1.0) k/uL Eosinophils # (0-0.7) k/uL Basophils # (0-0.2) k/uL Poikilocytosis PT (9.0-12.0) sec INR (<1.2) APTT (22.0-30.0) sec Sodium (137-145) mmol/L Potassium (3.5-5.1) mmol/L Chloride (98-107) mmol/L Carbon Dioxide (22-30) mmol/L Anion Gap mmol/L BUN (7-17) mg/dL Creatinine (0.52-1.04) mg/dL Est GFR (CKD-EPI)AfAm (>60 ml/min/1.73 sqM) Est GFR (CKD-EPI)NonAf (>60 ml/min/1.73 sqM) Glucose (74-99) mg/dL Lactic Ac Sepsis Rflx Plasma Lactic Acid Mynor 2.4 H* (0.7-2.0) mmol/L Calcium (8.4-10.2) mg/dL Magnesium (1.6-2.3) mg/dL Total Bilirubin (0.2-1.3) mg/dL AST (14-36) U/L ALT (4-34) U/L Alkaline Phosphatase (38-126) U/L Troponin I (0.000-0.034) ng/mL Total Protein (6.3-8.2) g/dL Albumin (3.5-5.0) g/dL Urine Color Light Yellow Urine Appearance Cloudy H (Clear) Urine pH 5.0 (5.0-8.0) Ur Specific Upson 1.005 (1.001-1.035) Urine Protein Negative (Negative) Urine Glucose (UA) 4+ H (Negative) Urine Ketones Negative (Negative) Urine Blood Negative (Negative) Urine Nitrite Negative (Negative) Urine Bilirubin Negative (Negative) Urine Urobilinogen <2.0 (<2.0) mg/dL Ur Leukocyte Esterase Negative (Negative) Urine RBC 1 (0-5) /hpf Urine WBC 3 (0-5) /hpf Ur Squamous Epith Cells 1 (0-4) /hpf Amorphous Sediment Occasional H (None) /hpf Urine Bacteria Rare H (None) /hpf Hyaline Casts 21 H (0-2) /lpf Urine Mucus Rare H (None) /hpf Disposition Clinical Impression: Hypotension, Hypomagnesemia, Lightheadedness, Hypokalemia Disposition: ADMITTED IP TO THIS [facility] Condition: Fair Referrals: Tramaine Tejeda MD [Primary Care Provider] - 1-2 days
[2021-05-08 18:43] LABS: Basophils # (A) 0.1 k/uL (0-0.2); Basophils % (A) 0 %; Eosinophils # (A) 0.2 k/uL (0-0.7); Eosinophils % (A) 1 %; HCT 52.9 % (34.0-46.0); Lymphocytes # (A) 2.1 k/uL (1.0-4.8); Lymphocytes % (A) 11 %; MCH 27.5 pg (25.0-35.0); MCHC 32.6 g/dL (31.0-37.0); Mean Platelet Volume 8.3; Monocytes # (A) 0.4 k/uL (0-1.0); Monocytes % (A) 2 %; Neutrophils # (A) 16.2 k/uL (1.3-7.7); Neutrophils % (A) 85 %; Platelet Count 297 k/uL (150-450); Poikilocytosis Slight; RBC 6.27 m/uL (3.80-5.40); RDW 15.6 % (11.5-15.5)
[2021-05-08 18:47] LABS: HGB 17.2 gm/dL (11.4-16.0); MCV 84.4 fL (80.0-100.0)
[2021-05-08 18:51] LABS: INR 1.1 (<1.2); Partial Thromboplastin Time 25.9 sec (22.0-30.0); Prothrombin Time 11.5 sec (9.0-12.0)
[2021-05-08 18:53] LABS: Albumin 3.7 g/dL (3.5-5.0); Calcium 9.6 mg/dL (8.4-10.2); Magnesium 1.4 mg/dL (1.6-2.3); Potassium 3.2 mmol/L (3.5-5.1); Total Bilirubin 1.7 mg/dL (0.2-1.3); Total Protein 7.3 g/dL (6.3-8.2)
--- NOTE | 2021-05-08 19:56 | XR ---
EXAMINATION TYPE: XR chest 2V DATE OF EXAM: 05/08/2021 COMPARISON: NONE HISTORY: Weakness TECHNIQUE: Frontal and lateral views of the chest are obtained. FINDINGS: There is no focal air space opacity, pleural effusion, or pneumothorax seen. The cardiac silhouette size is within normal limits. The osseous structures are intact. Partially visualized ACDF and left shoulder total arthroplasty. IVC filter. IMPRESSION: No acute cardiopulmonary process.
[2021-05-08] MEDS ORDERED: SODIUM CHLORIDE 0.9% 2,000 ML IV ONE (20:21)
[2021-05-08] MEDS ORDERED: HYDROcodone/APAP 10-325MG 1 EACH TAB PO ONE (22:45)
[2021-05-08 23:43] LABS: Amorphous Sediment,Urine Occasional /hpf; Appearance,Urine Cloudy (Clear); Bacteria,Urine Rare /hpf; Bilirubin,Urine Negative (Negative); Blood,Urine Negative (Negative); Color,Urine Light Yellow; Glucose,Urine (UA) 4+ (Negative); Hyaline Casts,Urine 21 /lpf (0-2); Ketones,Urine Negative (Negative); Leukocyte Esterase,Urine Negative (Negative); Mucus,Urine Rare /hpf; Nitrite,Urine Negative (Negative); Protein,Urine Negative (Negative); RBC,Urine 1 /hpf (0-5); Specific Gravity,Urine 1.005 (1.001-1.035); Squamous Epithelial Cell,Urine 1 /hpf (0-4); Urobilinogen,Urine <2.0 mg/dL (<2.0); WBC,Urine 3 /hpf (0-5)
[2021-05-09] MEDS ORDERED: MAGNESIUM OXIDE 400 MG TAB PO STA (00:21)
[2021-05-09] MEDS ORDERED: POTASSIUM CHLORIDE ER 20 MEQ TAB.ER PO STA (00:22)
[2021-05-09] MEDS ORDERED: ACETAMINOPHEN TAB 325 MG TAB PO PRN (00:26)
[2021-05-09] MEDS ORDERED: NALOXONE 0.4 MG/ML 1 ML VIAL IV PRN (00:26)
[2021-05-09] MEDS ORDERED: ONDANSETRON ODT 4 MG TAB PO PRN (00:27)
[2021-05-09] MEDS: SODIUM CHLORIDE 0.9% 1,000 ML IV SCH ×2 (02:18→18:13)
[2021-05-09] MEDS ORDERED: INSULIN LISPRO 100 UNIT/ML SQ SCH (07:30)
[2021-05-09] MEDS ORDERED: IOPAMIDOL CONTRAST (ORAL USE) VIAL PO PRN (08:14)
[2021-05-09] MEDS: INSULIN ASPART (NovoLOG) 100 UNIT/ML VIAL SQ SCH ×4 (09:51→20:41)
[2021-05-09 10:10] LABS: Glucose,Whole Blood 103 mg/dL (75-99)
--- NOTE | 2021-05-09 10:35 | CT ---
EXAMINATION TYPE: CT abdomen pelvis w con DATE OF EXAM: 05/09/2021 COMPARISON: 11/03/2020 INDICATION: abd pain and vomiting, left tenderness DLP: 1427.2 mGycm, Automated exposure control for dose reduction was used. CONTRAST: 80 mL of Isovue 300. Study performed with Oral Contrast TECHNIQUE: Axial images were obtained from above the diaphragm to the pubic rami in the axial plane a t 5 mm thick sections. Reconstructed images are reviewed on the computer in the coronal plane. FINDINGS: Limited CT sections are obtained the lung bases. The lung bases are clear. CT ABDOMEN: Liver: There is some mild fatty infiltration of the liver. Prior hepatic lesion is not as well-visual ized on the current exam. Spleen: Normal Pancreas: Normal Adrenal glands: The adrenal glands are normal. Gallbladder: Not identified. Kidneys: No masses are evident. No hydronephrosis is present. Tiny cortical renal cyst is within th e inferior pole right kidney. Couple of additional cortical renal cysts are present bilaterally mid a nd upper poles. Delayed images were obtained through the kidneys, which remain unremarkable. Aorta: Vascular calcification is within the aorta. Inferior vena cava: Filter is within the inferior vena cava. This is above the level of the renal art eries. A second stent is lower below the level renal arteries which may be within the graft. CT PELVIS: Loops of bowel within the abdomen and pelvis are normal. Contrast predominantly within the stomach a nd proximal small bowel. There are loops of bowel which are incompletely distended or lack oral con trast limiting their evaluation. Appendix: Normal as visualized. Urinary bladder: Normal. Genitourinary structures: Uterus appears normal. Adnexal regions appear unremarkable. Osseous structures: No suspicious lytic or sclerotic lesions. IMPRESSIONS: 1. No suspicious abnormality to account for abdominal pain and vomiting. 2. Mild fatty infiltration liver. 3. Small cortical renal cysts.
[2021-05-09] MEDS: NON FORMULARY DRUG (Dapagliflozin Propanediol [Farxiga] 10 MG Tablet) PO SCH (11:17)
[2021-05-09] MEDS: NON FORMULARY DRUG (Semaglutide [Rybelsus] 14 MG Tablet) PO SCH ×2 (11:17→18:06)
[2021-05-09] MEDS: GABAPENTIN 400 MG CAP PO SCH ×2 (11:29→20:41)
[2021-05-09] MEDS: PANTOPRAZOLE 40 MG TABLET PO SCH (11:30)
[2021-05-09] MEDS: MIDODRINE 5 MG TAB PO SCH ×3 (11:30→22:30)
[2021-05-09] MEDS: HYDROcodone/APAP 10-325MG 1 EACH TAB PO SCH ×4 (11:30→21:31)
[2021-05-09] MEDS: POTASSIUM CHLORIDE ER 10 MEQ TAB.ER.PRT PO SCH ×2 (11:30→20:41)
[2021-05-09] MEDS: DULoxetine HCL 60 MG CAPSULE.DR PO SCH (11:31)
[2021-05-09] MEDS: APIXABAN 5 MG TAB PO SCH ×2 (11:31→20:41)
[2021-05-09] MEDS: ASPIRIN 81 MG PO SCH (11:31)
[2021-05-09] MEDS ORDERED: ONDANSETRON 4 MG/2 ML VIAL IVP PRN (14:08)
--- NOTE | 2021-05-09 14:20 | P.HPIM ---
History of Present Illness H&P Date: 05/09/21 HISTORY OF PRESENT ILLNESS This is a 61-year-old female patient of Dr. Tejeda and Dr. Bill with history of CAD with multiple cardiac stents in mid RCA, mid LAD, obtuse marginal branch and followed by Dr. Bill closely, peripheral artery disease with previous stenting done as well has amputation of the right great toe secondary to osteomyelitis, CVA with no residual deficits, hypertension, COPD, diabetes mellitus type 2, previous multiple DVT and PE requiring chronic anticoagulation on eliquis, history of GI bleed secondary to antral gastritis, esophagitis vitam in D deficiency, autonomic hypotension on midodrine, recent left humerus fracture. Patient complains of weakness and feeling like she is going to faint which is been going on started last week. She states she has been taking the midodrine which has been increased to 10 mg 3 times daily but she continues to have symptoms. She denies having any fever or chills. Neck pain is improved since surgical procedure. She denies any nuchal rigidity. Arm sling in place on the left. Patient not currently wearing AMANDEEP hose as had been instructed. Patient also complains of vomiting 4 and also vomited this morning. She has some left-sided abdominal tenderness. Patient was brought into [facility] emergency center for evaluation. Patient was afebrile, heart rate 103, blood pressure 97/65, pulse ox 90% on room air. WBC 19.0. Hemoglobin 17.2, platelet count 297. Sodium 134, potassium 3.2, chloride 92, CO2 29, BUN 10 and creatinine 1.19. Blood sugar 255. Lactic acid 2.5 with repeat of 2.4 and 1.9. Magnesium 1.4. Total bilirubin 1.7, AST 41, ALT 20, alkaline phosphatase 118. Troponin was negative. Urinalysis showed rare bacteria, 4+ glucose. [place] virus PCR not detected. Chest x-ray showed no acute cardiopulmonary process. CAT scan of the abdomen and pelvis with contrast revealed no suspicious abnormality to account for abdominal pain and vomiting. Mild fatty infiltration in the liver. Small cortical renal cysts. Patient is seen today in the emergency center waiting for a MedSurg bed, blood culture obtained. She is status post 2 L of IV fluid, magnesium and potassium replacement. Repeat blood work ordered for tomorrow. REVIEW OF SYSTEMS Constitutional: No fever, no chills, no night sweats. No weight change. No weakness, fatigue or lethargy. No daytime sleepiness. EENT: No headache. No dizziness. Reports difficulty swallowing. No nasal drainage or congestion. No epistaxis. No sore throat. Lungs: No shortness of breath, cough, no sputum production. No wheezing. Cardiovascular: No chest pain, no lower extremity edema. No palpitations. No paroxysmal nocturnal dyspnea. No orthopnea. No lightheadedness or dizziness. No syncopal episodes. Abdominal: Reports abdominal pain. Reports nausea, reports vomiting. Reports diarrhea. No constipation. No bloody or tarry stools. Reports loss of appetite. Genitourinary: No dysuria, increased frequency, urgency. No urinary retention. Musculoskeletal: No myalgias. No muscle weakness, reports balance dysfunction, reports gait dysfunction, reports frequent falls. No back pain. No neck pain. Integumentary: No wounds, no lesions. No rash or pruritus. No unusual bruising. No change in hair or nails. Neurologic: No aphasia. No facial droop. No change in mentation. No head injury. No headache. No paralysis. No paresthesia. Psychiatric: No depression. No anxiety. No mood swings. Endocrine: No abnormal blood sugars. No weight change. No excessive sweating or thirst. No cold intolerance. MEDICAL HISTORY Coronary artery disease with multiple cardiac stents in the RCA, mid LAD, obtuse marginal branch Peripheral artery disease with previous stenting Right great toe osteomyelitis status post amputation CVA with no residual deficits Hypertension Hyperlipidemia COPD Diabetes mellitus type 2 Multiple DVT and PE on chronic anticoagulation History of GI bleed secondary to antral gastritis and esophagitis Vitamin D deficiency Orthostatic hypotension SURGICAL HISTORY Cholecystectomy Tonsillectomy Tubal ligation 11 stents in the left leg Full teeth extraction Trapeze vena cava filter Carpal tunnel release Coronary artery stents 4 to the RCA, LAD, obtuse marginal Tumor removed from the uterus will INGRID Skin cancer removal from the neck Right great toe amputation Colonoscopy and EGD I&D right groin abscess Anterior approach cervical disc fusion. SOCIAL HISTORY Patient is a smoker of about half a pack per day since 1993 and quit prior to her cervical surgery. No alcohol use, illicit drug use. Patient lives at home with her . FAMILY HISTORY Mother has history of uterine cancer, diabetes, myocardial infarction, heart failure. Father at age 70 from myocardial infarction. Patient has one sister and she had a myocardial infarction at age 55. Patient has 2 sons and one has history of DVT and pulmonary embolism. PHYSICAL EXAMINATION Gen: This is a 61-year-old female. She is resting in bed and appears to be comfortable and in no acute distress. HEENT: Head is atraumatic, normocephalic. Pupils equal, round. Sclerae is anicteric. Mucous members of the mouth are somewhat dry. Heart cervical collar in place. NECK: Supple. No JVD. No lymphadenopathy. No thyromegaly. LUNGS: Clear to auscultation. No wheezes or rhonchi. No intercostal retractions. 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 ABDOMEN: Soft. Bowel sounds are present. No masses. Left upper quadrant tenderness. EXTREMITIES: No pedal edema. No calf tenderness. Dorsalis pedis +1 bilaterally. Left-sided arm sling in place. NEUROLOGICAL: Patient is awake, alert and oriented x3. Cranial nerves 2 through 12 are grossly intact. Muscle power 3/5 in the left upper extremity, 4/5 in the right upper extremity, 4/5 in the bilateral lower extremities. DTRs are depressed bilaterally. Neuropathic changes in both feet. ASSESSMENT AND PLAN 1. Vomiting, left-sided abdominal pain, generalized weakness and hypotension. CAT scan of the abdomen and pelvis was negative. Continue IV fluids 0.9 normal saline at 75 mL per hour, start Zofran 4 mg IV push every 6 hours. 2. Electrolyte abnormalities with hypokalemia and hypomagnesemia, status post replacement. Recheck electrolytes in the morning. 3. Leukocytosis and lactic acidosis of unclear etiology, no sign of infection. 4. Left humerus fracture secondary to fall status post left shoulder hemiarthroplasty on 03/16/2021 . Continue pain management with [place], left arm sling in place. 5. Generalized weakness and balance dysfunction with workup in place outpatient and status post cervical disc fusion. 6. Diabetes mellitus type 2, uncontrolled with hyperglycemia. Continue Lantus 66 units at bedtime, Farxiga 10 mg daily, Rybelsus 14 mg twice daily, NovoLog scale before meals and at bedtime. 7. Coronary artery disease status post multiple PCI with ischemic cardiomyopathy. Hold Lasix, continue Lipitor 40 mg orally daily, . 8. Hypertension and hypertensive cardiovascular disease. Hold Lasix. History of hypotension 9. Chronic DVT and PEs. Continue Eliquis 5 mg orally bid for life. 10. Autonomichypotension. Continue midodrine 10 mg 3x daily. 11. Hyperlipidemia. Continue Lipitor 20 mg po daily. 12. Diabetic polyneuropathy. Continue gabapentin 800 mg 2 times daily . 13. Severe PAD. Continue Lipitor 20 mg orally daily, aspirin 81 mg daily. 14. Recurrent depression. Continue Cymbalta 60 mg daily. 15. GI prophylaxis. we will continue with Protonix 40 mg IV daily, 12. DVT prophylaxis. Eliquis 5 mg orally bid. Patient will be admitted to the hospital for a minimum of 2 nights stay DISCHARGE PLAN Home Impression and plan of care have been directed as dictated by the signing physician. Kerri Kevin nurse practitioner acting as scribe for signing physician. Past Medical History Past Medical History: Coronary Artery Disease (CAD), Cancer, Chest Pain / Angina, COPD, CVA/TIA, Diabetes Mellitus, Deep Vein Thrombosis (DVT), GERD/Reflux, Hyperlipidemia, Hypertension, Myocardial Infarction (AR), Osteoarth ritis (OA), Pulmonary Embolus (PE) Additional Past Medical History / Comment(s): SKIN CA. 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, NEUROPATHY LEGS & FEET, USING WALKER, .Mutiple DVT,mesentaric thrombosis x2 & PE, PAD, chronic pain syndrome, ddd lumbar region w/radiculopathy, HISTORY OF FALL 01/07/20 , tore rt rotator cuff, pancreatitis, fatty liver., Last Myocardial Infarction Date:: 2010 History of Any Multi-Drug Resistant Organisms: None Reported Past Surgical History: Section, Cholecystectomy, Heart Catheterization, Heart Catheterization With Stent, Orthopedic Surgery, Tonsillectomy, Tubal Ligation Additional Past Surgical History / Comment(s): 11 Stents in left leg, fistula left thigh, full mouth teeth extraction, TRAPEASE VENA CAVA FILTER, carpel tunnel, heart stents x4 rca and lad, tumor removal from uterus. Genital warts removed, INGRID. Skin cancer removed from neck, rt great toe amputated, colonoscopy Past Anesthesia/Blood Transfusion Reactions: No Reported Reaction, Motion Sickness Date of Last Stent Placement:: May 2016 Past Psychological History: Anxiety, Depression Additional Psychological History / Comment(s): Depression r/t health issues. Smoking Status: Current some day smoker Past Alcohol Use History: None Reported Additional Past Alcohol Use History / Comment(s): STARTED SMOKING IN 1993 SMOKES 1/2 PPD Past Drug Use History: None Reported - Past Family History Mother Family Medical History: Cancer, Congestive Heart Failure (CHF), Diabetes Mellitus, Myocardial Infarction (AR) Additional Family Medical History / Comment(s): UTERINE CANCER Father Family Medical History: Coronary Artery Disease (CAD), Myocardial Infarction (AR) Additional Family Medical History / Comment(s): Father at age 70. Sister(s) Family Medical History: Myocardial Infarction (AR) Additional Family Medical History / Comment(s): Patient has one sister with myocardial infarction at age 55. Son(s) Family Medical History: Deep Vein Thrombosis (DVT), Pulmonary Embolus Additional Family Medical History / Comment(s): Patient has 2 sons and one has history of DVT and pulmonary embolism. Medications and Allergies Home Medications Medication Instructions Recorded Confirmed Type Ergocalciferol [Vitamin D2 50,000 unit PO Q14D 08/26/15 05/08/21 History (MELANIE)] Rosuvastatin [Crestor] 10 mg PO HS #0 10/01/16 05/08/21 Rx Apixaban [Eliquis] 5 mg PO BID #60 tab 10/23/18 05/08/21 Rx Aspirin [[place] Aspirin EC] 81 mg PO DAILY 09/07/19 05/08/21 History HYDROcodone/APAP 10-325MG [[place] 1 tab PO QID 10/13/19 05/08/21 History 10-325] Albuterol Inhaler [Ventolin Hfa 2 puff INHALATION RT-QID PRN #1 11/09/20 05/08/21 Rx Inhaler] inhaler Ondansetron Odt [Zofran ODT] 4 mg PO Q8HR PRN #12 tab 01/17/21 05/08/21 Rx DULoxetine HCL [Cymbalta] 60 mg PO DAILY 03/14/21 05/08/21 History Dapagliflozin Propanediol [Farxiga] 10 mg PO DAILY 03/14/21 05/08/21 History Furosemide [Lasix] 20 mg PO Q48H 03/14/21 05/08/21 History Omeprazole [PriLOSEC] 20 mg PO DAILY 03/14/21 05/08/21 History Potassium Chloride [Klor-Con 10 ER] 10 meq PO BID 03/14/21 05/08/21 History Semaglutide [Rybelsus] 14 mg PO AC-BID 03/14/21 05/08/21 History Gabapentin [Neurontin] 800 mg PO BID #60 cap 03/20/21 05/08/21 Rx Insulin Glargine,Hum.rec.anlog 66 unit SQ HS 05/08/21 05/08/21 History [Lantus Solostar Pen] Insulin Lispro [humaLOG Kwikpen] See Protocol SQ ACHS 05/08/21 05/08/21 History Midodrine HCl [ProAmatine] 10 mg PO TID 05/08/21 05/08/21 History Allergies Allergy/AdvReac Type Severity Reaction Status Date / Time vancomycin Allergy Rash/Hives/and Verified 05/08/21 23:48 vomiting diarrhea/Swelling Physical Exam Vitals: Vital Signs Temp Pulse Resp BP Pulse Ox 05/09/21 07:04 66 14 93/55 96 05/08/21 23:55 76 18 123/79 98 05/08/21 21:23 98.0 F 80 18 130/83 98 05/08/21 18:22 98.4 F 103 H 18 97/65 98 Intake and Output 05/08/21 05/09/21 05/09/21 22:59 06:59 14:59 Other: Weight 86.183 kg Results CBC & Chem 7: 05/08/21 18:28 05/08/21 18:28 Labs: Abnormal Lab Results - Last 24 Hours (Table) 05/08/21 05/08/21 05/08/21 Range/Units 18:28 18:28 18:28 WBC 19.0 H (3.8-10.6) k/uL RBC 6.27 H (3.80-5.40) m/uL Hgb 17.2 H D (11.4-16.0) gm/dL Hct 52.9 H (34.0-46.0) % RDW 15.6 H (11.5-15.5) % Neutrophils # 16.2 H (1.3-7.7) k/uL Sodium 134 L (137-145) mmol/L Potassium 3.2 L (3.5-5.1) mmol/L Chloride 92 L (98-107) mmol/L Creatinine 1.19 H (0.52-1.04) mg/dL Glucose 255 H (74-99) mg/dL Plasma Lactic Acid [place] 2.5 H* (0.7-2.0) mmol/L Magnesium 1.4 L (1.6-2.3) mg/dL Total Bilirubin 1.7 H (0.2-1.3) mg/dL AST 41 H (14-36) U/L Urine Appearance (Clear) Urine Glucose (UA) (Negative) Amorphous Sediment (None) /hpf Urine Bacteria (None) /hpf Hyaline Casts (0-2) /lpf Urine Mucus (None) /hpf 05/08/21 05/08/21 Range/Units 22:14 22:29 WBC (3.8-10.6) k/uL RBC (3.80-5.40) m/uL Hgb (11.4-16.0) gm/dL Hct (34.0-46.0) % RDW (11.5-15.5) % Neutrophils # (1.3-7.7) k/uL Sodium (137-145) mmol/L Potassium (3.5-5.1) mmol/L Chloride (98-107) mmol/L Creatinine (0.52-1.04) mg/dL Glucose (74-99) mg/dL Plasma Lactic Acid [place] 2.4 H* (0.7-2.0) mmol/L Magnesium (1.6-2.3) mg/dL Total Bilirubin (0.2-1.3) mg/dL AST (14-36) U/L Urine Appearance Cloudy H (Clear) Urine Glucose (UA) 4+ H (Negative) Amorphous Sediment Occasional H (None) /hpf Urine Bacteria Rare H (None) /hpf Hyaline Casts 21 H (0-2) /lpf Urine Mucus Rare H (None) /hpf
[2021-05-09 16:37] LABS: Magnesium 1.3 mg/dL (1.6-2.3); Potassium 3.2 mmol/L (3.5-5.1)
[2021-05-09 17:18] LABS: Glucose,Whole Blood 172 mg/dL (75-99)
[2021-05-09 20:32] LABS: Glucose,Whole Blood 160 mg/dL (75-99)
[2021-05-09] MEDS: ATORVASTATIN 20 MG TAB PO SCH (20:41)
[2021-05-09] MEDS ORDERED: INSULIN DETEMIR (LEVEMIR) 100 UNIT/ML SYR SQ SCH (21:00)
[2021-05-10 06:21] LABS: HCT 43.5 % (34.0-46.0); MCH 27.3 pg (25.0-35.0); MCHC 31.5 g/dL (31.0-37.0); MCV 86.7 fL (80.0-100.0); Mean Platelet Volume 7.9; Platelet Count 179 k/uL (150-450); RBC 5.01 m/uL (3.80-5.40); RDW 15.7 % (11.5-15.5); WBC 8.8 k/uL (3.8-10.6)
[2021-05-10 06:25] LABS: HGB 13.7 gm/dL (11.4-16.0)
[2021-05-10 06:46] LABS: ALT 17 U/L (4-34); AST 43 U/L (14-36); African American GFR (CKD) 87 (>60 ml/min/1.73 sqM); Albumin 2.7 g/dL (3.5-5.0); Albumin/Globulin Ratio 0.9; Alkaline Phosphatase 75 U/L (38-126); Anion Gap 9 mmol/L; Blood Urea Nitrogen 8 mg/dL (7-17); Calcium 8.5 mg/dL (8.4-10.2); Carbon Dioxide 25 mmol/L (22-30); Chloride 101 mmol/L (98-107); Globulin 2.9 g/dL; Non-African American GFR(CKD) 76 (>60 ml/min/1.73 sqM); Sodium 135 mmol/L (137-145); Total Bilirubin 0.6 mg/dL (0.2-1.3); Total Protein 5.6 g/dL (6.3-8.2)
[2021-05-10 06:51] LABS: Glucose 45 mg/dL (74-99)
[2021-05-10 07:12] LABS: Glucose,Whole Blood 70 mg/dL (75-99)
[2021-05-10 07:32] LABS: Glucose,Whole Blood 68 mg/dL (75-99)
[2021-05-10 08:03] LABS: Glucose,Whole Blood 91 mg/dL (75-99)
[2021-05-10] MEDS: INSULIN ASPART (NovoLOG) 100 UNIT/ML VIAL SQ SCH ×4 (08:05→20:50)
[2021-05-10] MEDS: NON FORMULARY DRUG (Dapagliflozin Propanediol [Farxiga] 10 MG Tablet) PO SCH (08:06)
[2021-05-10] MEDS: NON FORMULARY DRUG (Semaglutide [Rybelsus] 14 MG Tablet) PO SCH ×2 (08:06→17:02)
[2021-05-10] MEDS: ASPIRIN 81 MG PO SCH (08:32)
[2021-05-10] MEDS: MIDODRINE 5 MG TAB PO SCH ×3 (08:32→21:51)
[2021-05-10] MEDS: APIXABAN 5 MG TAB PO SCH ×2 (08:32→20:55)
[2021-05-10] MEDS: DULoxetine HCL 60 MG CAPSULE.DR PO SCH (08:33)
[2021-05-10] MEDS: PANTOPRAZOLE 40 MG TABLET PO SCH (08:33)
[2021-05-10] MEDS: GABAPENTIN 400 MG CAP PO SCH ×2 (08:33→20:55)
[2021-05-10] MEDS: HYDROcodone/APAP 10-325MG 1 EACH TAB PO SCH ×4 (08:33→21:51)
[2021-05-10] MEDS: POTASSIUM CHLORIDE ER 10 MEQ TAB.ER.PRT PO SCH ×2 (08:33→20:54)
[2021-05-10 12:37] LABS: Glucose,Whole Blood 89 mg/dL (75-99)
[2021-05-10] MEDS: POTASSIUM CHLORIDE 10 MEQ in WATER FOR INJECTION 1 100ML.BAG IVPB SCH ×4 (13:57→19:50)
[2021-05-10] MEDS: POTASSIUM CHLORIDE ER 20 MEQ TAB.ER PO SCH ×2 (13:57→15:51)
[2021-05-10] MEDS: SODIUM CHLORIDE 0.9% 1,000 ML IV SCH (13:58)
--- NOTE | 2021-05-10 15:10 | P.PN ---
Subjective Progress Note Date: 05/10/21 HISTORY OF PRESENT ILLNESS This is a 61-year-old female patient of Dr. Tejeda and Dr. Bill with history of CAD with multiple cardiac stents in mid RCA, mid LAD, obtuse marginal branch and followed by Dr. Bill closely, peripheral artery disease with previous stenting done as well has amputation of the right great toe secondary to osteomyelitis, CVA with no residual deficits, hypertension, COPD, diabetes mellitus type 2, previous multiple DVT and PE requiring chronic anticoagulation on eliquis, history of GI bleed secondary to antral gastritis, esophagitis vitamin D deficiency, autonomic hypotension on midodrine, recent left humerus fracture. Patient complains of weakness and feeling like she is going to faint which is been going on started last week. She states she has been taking the midodrine which has been increased to 10 mg 3 times daily but she continues to have symptoms. She denies having any fever or chills. Neck pain is improved since surgical procedure. She denies any nuchal rigidity. Arm sling in place on the left. Patient not currently wearing AMANDEEP hose as had been instructed. Patient also complains of vomiting 4 and also vomited this morning. She has some left-sided abdominal tenderness. Patient was brought into [facility] emergency center for evaluation. Patient was afebrile, heart rate 103, blood pressure 97/65, pulse ox 90% on room air. WBC 19.0. Hemoglobin 17.2, platelet count 297. Sodium 134, potassium 3.2, chloride 92, CO2 29, BUN 10 and creatinine 1.19. Blood sugar 255. Lactic acid 2.5 with repeat of 2.4 and 1.9. Magnesium 1.4. Total bilirubin 1.7, AST 41, ALT 20, alkaline phosphatase 118. Troponin was negative. Urinalysis showed rare bacteria, 4+ glucose. [place] virus PCR not detected. Chest x-ray showed no acute cardiopulmonary process. CAT scan of the abdomen and pelvis with contrast revealed no suspicious abnormality to account for abdominal pain and vomiting. Mild fatty infiltration in the liver. Small cortical renal cysts. Patient is seen today in the emergency center waiting for a MedSurg bed, blood culture obtained. She is status post 2 L of IV fluid, magnesium and potassium replacement. Repeat blood work ordered for tomorrow. 05/10: Patient states that she is not eating very much but she does not have abdominal pain today. She has not had a bowel movement. She states when she gets up off the toilet is only time she has some problems. Dizziness seems to be improved. She does have a follow-up appointment at [place] on 05/26. Magnesium and potassium are being replaced. We will plan to discontinue IV fluids and monitor overnight, recheck electrolytes and replace as necessary. Potassium was 3.0, magnesium 1.3. Blood sugar this morning was 45 and nighttime insulin decreased to 40 units. REVIEW OF SYSTEMS Constitutional: No fever, no chills, no night sweats. No weight change. No weakness, fatigue or lethargy. No daytime sleepiness. EENT: No headache. No dizziness. Reports difficulty swallowing. No nasal drainage or congestion. No epistaxis. No sore throat. Lungs: No shortness of breath, cough, no sputum production. No wheezing. Cardiovascular: No chest pain, no lower extremity edema. No palpitations. No paroxysmal nocturnal dyspnea. No orthopnea. No lightheadedness or dizziness. No syncopal episodes. Abdominal: Denies abdominal pain. Denies nausea, denies vomiting. Reports diarrhea. No constipation. No bloody or tarry stools. Reports loss of appetite. Genitourinary: No dysuria, increased frequency, urgency. No urinary retention. Musculoskeletal: No myalgias. No muscle weakness, reports balance dysfunction, reports gait dysfunction, reports frequent falls. No back pain. No neck pain. Integumentary: No wounds, no lesions. No rash or pruritus. No unusual bruising. No change in hair or nails. Neurologic: No aphasia. No facial droop. No change in mentation. No head injury. No headache. No paralysis. No paresthesia. Psychiatric: No depression. No anxiety. No mood swings. Endocrine: Noted abnormal blood sugars. No weight change. No excessive sweating or thirst. No cold intolerance. PHYSICAL EXAMINATION Gen: This is a 61-year-old female. She is resting in bed and appears to be comfortable and in no acute distress. HEENT: Head is atraumatic, normocephalic. Pupils equal, round. Sclerae is anicteric. Mucous members of the mouth are somewhat dry. Heart cervical collar in place. NECK: Supple. No JVD. No lymphadenopathy. No thyromegaly. LUNGS: Clear to auscultation. No wheezes or rhonchi. No intercostal retractions. 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 ABDOMEN: Soft. Bowel sounds are present. No masses. No abdominal tenderness. EXTREMITIES: No pedal edema. No calf tenderness. Dorsalis pedis +1 bilaterally. Left-sided arm sling in place. NEUROLOGICAL: Patient is awake, alert and oriented x3. Cranial nerves 2 through 12 are grossly intact. Muscle power 3/5 in the left upper extremity, 4/5 in the right upper extremity, 4/5 in the bilateral lower extremities. DTRs are depressed bilaterally. Neuropathic changes in both feet. ASSESSMENT AND PLAN 1. Vomiting, left-sided abdominal pain, generalized weakness and hypotension. CAT scan of the abdomen and pelvis was negative. Discontinue IV fluids, continue Zofran 4 mg IV push every 6 hours. 2. Electrolyte abnormalities with hypokalemia and hypomagnesemia, status post replacement. Recheck electrolytes in the morning. 3. Leukocytosis and lactic acidosis of unclear etiology, no sign of infection. 4. Left humerus fracture secondary to fall status post left shoulder hemiarthroplasty on 03/16/2021 . Continue pain management with [place], left arm sling in place. 5. Generalized weakness and balance dysfunction with workup in place outpatient and status post cervical disc fusion. 6. Diabetes mellitus type 2, uncontrolled with hypoglycemia. Continue Lantus decreased to 40 units at bedtime, Farxiga 10 mg daily, Rybelsus 14 mg twice daily, NovoLog scale before meals and at bedtime. 7. Coronary artery disease status post multiple PCI with ischemic c ardiomyopathy. Hold Lasix, continue Lipitor 40 mg orally daily, . 8. Hypertension and hypertensive cardiovascular disease. Hold Lasix. History of hypotension 9. Chronic DVT and PEs. Continue Eliquis 5 mg orally bid for life. 10. Autonomichypotension. Continue midodrine 10 mg 3x daily. 11. Hyperlipidemia. Continue Lipitor 20 mg po daily. 12. Diabetic polyneuropathy. Continue gabapentin 800 mg 2 times daily . 13. Severe PAD. Continue Lipitor 20 mg orally daily, aspirin 81 mg daily. 14. Recurrent depression. Continue Cymbalta 60 mg daily. 15. GI prophylaxis. we will continue with Protonix 40 mg IV daily, 12. DVT prophylaxis. Eliquis 5 mg orally bid. DISCHARGE PLAN Home Impression and plan of care have been directed as dictated by the signing physician. Kerri Kevin nurse practitioner acting as scribe for signing physician. Objective - Vital Signs Vital signs: Vital Signs Temp 98.5 F 05/10/21 12:37 Pulse 60 05/10/21 12:37 Resp 18 05/10/21 12:37 BP 125/72 05/10/21 12:37 Pulse Ox 96 05/10/21 12:37 Intake & Output 05/09/21 05/10/21 05/10/21 18:59 06:59 18:59 Intake Total 360 Balance 360 Weight 86.183 kg Intake: Oral 360 Other: Voiding Method Toilet Toilet # Voids 3 - Labs CBC & Chem 7: 05/10/21 05:45 05/10/21 05:45 Labs: Abnormal Lab Results - Last 24 Hours (Table) 05/09/21 05/09/21 05/09/21 Range/Units 15:44 17:17 20:30 RDW (11.5-15.5) % Sodium (137-145) mmol/L Potassium 3.2 L (3.5-5.1) mmol/L Glucose (74-99) mg/dL POC Glucose (mg/dL) 172 H 160 H (75-99) mg/dL Magnesium 1.3 L (1.6-2.3) mg/dL AST (14-36) U/L Total Protein (6.3-8.2) g/dL Albumin (3.5-5.0) g/dL 05/10/21 05/10/21 05/10/21 Range/Units 05:45 05:45 07:10 RDW 15.7 H (11.5-15.5) % Sodium 135 L (137-145) mmol/L Potassium 3.0 L (3.5-5.1) mmol/L Glucose 45 L* (74-99) mg/dL POC Glucose (mg/dL) 70 L (75-99) mg/dL Magnesium (1.6-2.3) mg/dL AST 43 H (14-36) U/L Total Protein 5.6 L (6.3-8.2) g/dL Albumin 2.7 L (3.5-5.0) g/dL 05/10/21 Range/Units 07:29 RDW (11.5-15.5) % Sodium (137-145) mmol/L Potassium (3.5-5.1) mmol/L Glucose (74-99) mg/dL POC Glucose (mg/dL) 68 L (75-99) mg/dL Magnesium (1.6-2.3) mg/dL AST (14-36) U/L Total Protein (6.3-8.2) g/dL Albumin (3.5-5.0) g/dL Microbiology - Last 24 Hours (Table) 05/09/21 02:15 Blood Culture - Preliminary Blood No Growth after 24 hours 05/09/21 02:21 Blood Culture - Preliminary Blood No Growth after 24 hours
[2021-05-10 17:55] LABS: Glucose,Whole Blood 66 mg/dL (75-99)
[2021-05-10 18:24] LABS: Glucose,Whole Blood 66 mg/dL (75-99)
[2021-05-10 18:52] LABS: Glucose,Whole Blood 84 mg/dL (75-99)
[2021-05-10 20:29] LABS: Glucose,Whole Blood 109 mg/dL (75-99)
[2021-05-10] MEDS: ATORVASTATIN 20 MG TAB PO SCH (20:54)
[2021-05-10] MEDS: MAGNESIUM SULFATE-D5W PMX 1 GM in DEXTROSE/WATER 1 100ML.BAG IVPB SCH ×2 (20:55→21:52)
[2021-05-10] MEDS ORDERED: INSULIN DETEMIR (LEVEMIR) 100 UNIT/ML SYR SQ SCH (21:00)
[2021-05-11 04:21] LABS: HCT 40.2 % (34.0-46.0); HGB 12.6 gm/dL (11.4-16.0); Hypochromasia Slight; MCH 27.7 pg (25.0-35.0); MCHC 31.5 g/dL (31.0-37.0); MCV 88.1 fL (80.0-100.0); Mean Platelet Volume 8.1; Platelet Count 173 k/uL (150-450); RBC 4.56 m/uL (3.80-5.40); RDW 15.5 % (11.5-15.5)
[2021-05-11 04:50] LABS: ALT 19 U/L (4-34); AST 53 U/L (14-36); African American GFR (CKD) >90 (>60 ml/min/1.73 sqM); Albumin 2.3 g/dL (3.5-5.0); Albumin/Globulin Ratio 0.9; Alkaline Phosphatase 70 U/L (38-126); Anion Gap 1 mmol/L; Blood Urea Nitrogen 7 mg/dL (7-17); Calcium 8.8 mg/dL (8.4-10.2); Carbon Dioxide 31 mmol/L (22-30); Chloride 107 mmol/L (98-107); Globulin 2.6 g/dL; Glucose 74 mg/dL (74-99); Non-African American GFR(CKD) >90 (>60 ml/min/1.73 sqM); Potassium 5.2 mmol/L (3.5-5.1); Sodium 139 mmol/L (137-145); Total Bilirubin 0.4 mg/dL (0.2-1.3); Total Protein 4.9 g/dL (6.3-8.2)
[2021-05-11 07:16] LABS: Glucose,Whole Blood 88 mg/dL (75-99)
[2021-05-11] MEDS: INSULIN ASPART (NovoLOG) 100 UNIT/ML VIAL SQ SCH ×2 (07:22→12:12)
[2021-05-11] MEDS: NON FORMULARY DRUG (Semaglutide [Rybelsus] 14 MG Tablet) PO SCH (07:25)
[2021-05-11] MEDS: NON FORMULARY DRUG (Dapagliflozin Propanediol [Farxiga] 10 MG Tablet) PO SCH (07:25)
[2021-05-11] MEDS: DULoxetine HCL 60 MG CAPSULE.DR PO SCH (08:11)
[2021-05-11] MEDS: PANTOPRAZOLE 40 MG TABLET PO SCH (08:11)
[2021-05-11] MEDS: POTASSIUM CHLORIDE ER 10 MEQ TAB.ER.PRT PO SCH (08:11)
[2021-05-11] MEDS: ASPIRIN 81 MG PO SCH (08:11)
[2021-05-11] MEDS: GABAPENTIN 400 MG CAP PO SCH (08:11)
[2021-05-11] MEDS: APIXABAN 5 MG TAB PO SCH (08:11)
[2021-05-11] MEDS: HYDROcodone/APAP 10-325MG 1 EACH TAB PO SCH ×2 (08:11→12:43)
[2021-05-11] MEDS: MIDODRINE 5 MG TAB PO SCH (08:11)
--- NOTE | 2021-05-11 08:34 | P.DS ---
Providers Date of admission: 05/09/21 01:36 Expected date of discharge: 05/11/21 Attending physician: Tramaine Tejeda Primary care physician: Tramaine Tejeda [facility] Course: HISTORY OF PRESENT ILLNESS This is a 61-year-old female patient of Dr. Tejeda and Dr. Bill with history of CAD with multiple cardiac stents in mid RCA, mid LAD, obtuse marginal branch and followed by Dr. Bill closely, peripheral artery disease with previous stenting done as well has amputation of the right great toe secondary to osteomyelitis, CVA with no residual deficits, hypertension, COPD, diabetes mellitus type 2, previous multiple DVT and PE requiring chronic anticoagulation on eliquis, history of GI bleed secondary to antral gastritis, esophagitis vitamin D deficiency, autonomic hypotension on midodrine, recent left humerus f racture. Patient complains of weakness and feeling like she is going to faint which is been going on started last week. She states she has been taking the midodrine which has been increased to 10 mg 3 times daily but she continues to have symptoms. She denies having any fever or chills. Neck pain is improved since surgical procedure. She denies any nuchal rigidity. Arm sling in place on the left. Patient not currently wearing AMANDEEP hose as had been instructed. Patient also complains of vomiting 4 and also vomited this morning. She has some left-sided abdominal tenderness. Patient was brought into [facility] emergency center for evaluation. Patient was afebrile, heart rate 103, blood pressure 97/65, pulse ox 90% on room air. WBC 19.0. Hemoglobin 17.2, platelet count 297. Sodium 134, potassium 3.2, chloride 92, CO2 29, BUN 10 and creatinine 1.19. Blood sugar 255. Lactic acid 2.5 with repeat of 2.4 and 1.9. Magnesium 1.4. Total bilirubin 1.7, AST 41, ALT 20, alkaline phosphatase 118. Troponin was negative. Urinalysis showed rare bacteria, 4+ glucose. Medina virus PCR not detected. Chest x-ray showed no acute cardiopulmonary process. CAT scan of the abdomen and pelvis with contrast revealed no suspicious abnormality to account for abdominal pain and vomiting. Mild fatty infiltration in the liver. Small cortical renal cysts. Patient is seen today in the emergency center waiting for a Medr bed, blood culture obtained. She is status post 2 L of IV fluid, magnesium and potassium replacement. Repeat blood work ordered for tomorrow. 05/10: Patient states that she is not eating very much but she does not have abdominal pain today. She has not had a bowel movement. She states when she gets up off the toilet is only time she has some problems. Dizziness seems to be improved. She does have a follow-up appointment at [place] on 05/26. Magnesium and potassium are being replaced. We will plan to discontinue IV fluids and monitor overnight, recheck electrolytes and replace as necessary. Potassium was 3.0, magnesium 1.3. Blood sugar this morning was 45 and nighttime insulin decreased to 40 units. 05/11: The patient is able to tolerate diet. No vomiting, no diarrhea. She states she had a small bowel movement yesterday. Potassium today is at 5.2. Magnesium 2.1. Blood sugars this morning 74 - 109 and she did not receive L evemir last evening. Levemir will be decreased to 24 units at bedtime. In general, patient is feeling improved and will be discharged home in stable condition. ASSESSMENT AND PLAN 1. Vomiting, left-sided abdominal pain, generalized weakness and hypotension. 2. Electrolyte abnormalities with hypokalemia and hypomagnesemia, status post replacement. 3. Leukocytosis and lactic acidosis secondary to vomiting, no sign of infection. 4. Left humerus fracture secondary to fall status post left shoulder hemiarthroplasty on 03/16/2021. 5. Generalized weakness and balance dysfunction with workup in place outpatient and status post cervical disc fusion. 6. Diabetes mellitus type 2, uncontrolled with hypoglycemia. 7. Coronary artery disease status post multiple PCI with ischemic cardiomyopathy. 8. Hypertension and hypertensive cardiovascular disease. 9. Chronic DVT and PEs. 10. Autonomichypotension. 11. Hyperlipidemia. 12. Diabetic polyneuropathy. 13. Severe PAD. 14. Recurrent depression. DISCHARGE PLAN Home Impression and plan of care have been directed as dictated by the signing physician. Kerri Kevin nurse practitioner acting as scribe for signing physician. Patient Condition at Discharge: Good Plan - Discharge Summary New Discharge Prescriptions: Continue Ergocalciferol [Vitamin D2 (DRISDOL)] 50,000 unit PO Q14D Rosuvastatin [Crestor] 10 mg PO HS #0 Apixaban [Eliquis] 5 mg PO BID #60 tab Aspirin [Pickett Aspirin EC] 81 mg PO DAILY HYDROcodone/APAP 10-325MG [Eden 10-325] 1 tab PO QID Potassium Chloride [Klor-Con 10 ER] 10 meq PO BID Semaglutide [Rybelsus] 14 mg PO AC-BID Midodrine HCl [ProAmatine] 10 mg PO TID Insulin Lispro [humaLOG Kwikpen] See Protocol SQ ACHS Albuterol Inhaler [Ventolin Hfa Inhaler] 2 puff INHALATION RT-QID PRN #1 inhaler PRN Reason: Shortness Of Breath Ondansetron Odt [Zofran ODT] 4 mg PO Q8HR PRN #12 tab PRN Reason: Nausea Omeprazole [PriLOSEC] 20 mg PO DAILY Dapagliflozin Propanediol [Farxiga] 10 mg PO DAILY DULoxetine HCL [Cymbalta] 60 mg PO DAILY Gabapentin [Neurontin] 800 mg PO BID #60 cap Changed Insulin Glargine,Hum.rec.anlog [Lantus Solostar Pen] 24 unit SQ HS #0 Discontinued Furosemide [Lasix] 20 mg PO Q48H Discharge Medication List Ergocalciferol [Vitamin D2 (DRISDOL)] 50,000 unit PO Q14D 08/26/15 [History] Rosuvastatin [Crestor] 10 mg PO HS #0 10/01/16 [Rx] Apixaban [Eliquis] 5 mg PO BID #60 tab 10/23/18 [Rx] Aspirin [Pickett Aspirin EC] 81 mg PO DAILY 09/07/19 [History] HYDROcodone/APAP 10-325MG [Eden 10-325] 1 tab PO QID 10/13/19 [History] Albuterol Inhaler [Ventolin Hfa Inhaler] 2 puff INHALATION RT-QID PRN #1 inhaler 11/09/20 [Rx] Ondansetron Odt [Zofran ODT] 4 mg PO Q8HR PRN #12 tab 01/17/21 [Rx] DULoxetine HCL [Cymbalta] 60 mg PO DAILY 03/14/21 [History] Dapagliflozin Propanediol [Farxiga] 10 mg PO DAILY 03/14/21 [History] Omeprazole [PriLOSEC] 20 mg PO DAILY 03/14/21 [History] Potassium Chloride [Klor-Con 10 ER] 10 meq PO BID 03/14/21 [History] Semaglutide [Rybelsus] 14 mg PO AC-BID 03/14/21 [History] Gabapentin [Neurontin] 800 mg PO BID #60 cap 03/20/21 [Rx] Insulin Lispro [humaLOG Kwikpen] See Protocol SQ ACHS 05/08/21 [History] Midodrine HCl [ProAmatine] 10 mg PO TID 05/08/21 [History] Insulin Glargine,Hum.rec.anlog [Lantus Solostar Pen] 24 unit SQ HS #0 05/11/21 [Rx] Follow up Appointment(s)/Referral(s): Tramaine Tejeda MD [Primary Care Provider] - 05/18/21 2:45 pm Patient Instructions/Handouts: Hypokalemia (DC), Hypotension (DC), Hypomagnesemia (DC), Lightheadedness (ED) Discharge Disposition: HOME SELF-CARE
[2021-05-11 12:26] LABS: Glucose,Whole Blood 212 mg/dL (75-99)
[2021-05-11 12:49] VITALS: BP 136/79; PULSE 67; RESP 18; TEMP 98.7
[2021-05-14] MEDS ORDERED: ERGOCALCIFEROL 1,250 MCG (50,000 IU) CAPSULE PO SCH (09:00)
== END 2021-05-11 15:46 | disposition home or self-care (01) | DRG 312 ==
LOC: EC 16:14 → 5NMEDONC 05-09 01:36
PROVIDERS: ADMIT Internal Medicine; ATTEND Internal Medicine
DX: I95.1 Orthostatic hypotension (principal); E87.2 Acidosis; F33.9 Major depressive disorder, recurrent, unspecified; Z20.822 Contact with and (suspected) exposure to COVID-19; M51.16 Intervertebral disc disorders with radiculopathy, lumbar region; E55.9 Vitamin D deficiency, unspecified; G62.9 Polyneuropathy, unspecified; K21.9 Gastro-esophageal reflux disease without esophagitis; D72.829 Elevated white blood cell count, unspecified; E11.42 Type 2 diabetes mellitus with diabetic polyneuropathy; E11.51 Type 2 diabetes mellitus with diabetic peripheral angiopathy without gangrene; E11.649 Type 2 diabetes mellitus with hypoglycemia without coma; E11.65 Type 2 diabetes mellitus with hyperglycemia; E78.5 Hyperlipidemia, unspecified; E83.42 Hypomagnesemia; F41.9 Anxiety disorder, unspecified; F17.200 Nicotine dependence, unspecified, uncomplicated; E87.6 Hypokalemia; G89.4 Chronic pain syndrome; I25.10 Atherosclerotic heart disease of native coronary artery without angina pectoris; I25.2 Old myocardial infarction; I25.5 Ischemic cardiomyopathy; J44.9 Chronic obstructive pulmonary disease, unspecified; K76.0 Fatty (change of) liver, not elsewhere classified; N28.1 Cyst of kidney, acquired; I11.9 Hypertensive heart disease without heart failure; M19.90 Unspecified osteoarthritis, unspecified site; M54.2 Cervicalgia; Z95.5 Presence of coronary angioplasty implant and graft; Z86.73 Personal history of transient ischemic attack (TIA), and cerebral infarction without residual deficits; Z86.711 Personal history of pulmonary embolism; Z85.828 Personal history of other malignant neoplasm of skin; Z83.3 Family history of diabetes mellitus; Z82.49 Family history of ischemic heart disease and other diseases of the circulatory system; Z80.49 Family history of malignant neoplasm of other genital organs; Z79.899 Other long term (current) drug therapy; Z79.84 Long term (current) use of oral hypoglycemic drugs; Z79.82 Long term (current) use of aspirin; Z79.4 Long term (current) use of insulin; Z79.01 Long term (current) use of anticoagulants
CPT/HCPCS: 36415; 71046; 74177; 80053; 81001; 83605; 83735; 84132; 84484; 85025; 85027; 85610; 85730; 87040; 87635; 93005; 96360; 96361; 99285

== ENCOUNTER 2022-11-05 12:11 | Emergency (ER) | payer MEDICARE, OTHER ==
[2022-11-05 12:27] VITALS: TEMP 98.4
[2022-11-05] MEDS ORDERED: SODIUM CHLORIDE 0.9% 500 ML 500 ML IV STA (13:24)
[2022-11-05] MEDS ORDERED: HYDROmorphone 0.5 MG/0.5 ML SYRINGE IVP STA (13:31)
--- NOTE | 2022-11-05 13:31 | ED ---
General Adult HPI - General Chief complaint: Upper Respiratory Infection Stated complaint: sob, cough Time Seen by Provider: 11/05/22 13:10 Source: patient, RN notes reviewed, old records reviewed Mode of arrival: ambulatory Limitations: no limitations - History of Present Illness Initial comments: This is a 62-year-old female who presents emergency department stating that she has had a cough that has gotten progressively worse over a month. Patient denies any fever chills. Patient states she is somewhat short of breath. Patient states she continues to smoke. Patient denies any chest pain. Patient denies any lightheadedness or dizziness. Patient states she's been having some abdominal pain and she believes increasing size of her abdomen over the last month as well. Patient denies any back pain patient denies any dysuria hematuria urinary frequency. Patient has a swollen to the legs or calf tenderness. Patient states she has no albuterol for her nebulizer. Patient states she hasn't had any for a while - Related Data Home Medications Medication Instructions Recorded Confirmed Ergocalciferol [Vitamin D2 50,000 unit PO Q30D 08/26/15 09/06/22 (DRISDOL)] HYDROcodone/APAP 10-325MG [[place]em 1 tab PO QID PRN 10/13/19 09/06/22 10-325] Dapagliflozin Propanediol [Farxiga] 10 mg PO DAILY 03/14/21 09/06/22 Omeprazole [PriLOSEC] 20 mg PO DAILY 03/14/21 09/06/22 Docusate [Colace] 100 mg PO DAILY 11/14/21 09/06/22 Cyclobenzaprine [Flexeril] 5 mg PO HS PRN 09/06/22 09/06/22 DULoxetine HCL [Cymbalta] 60 mg PO DAILY 09/06/22 09/06/22 Nicotine 21Mg/24Hr Patch [Habitrol] 1 patch TRANSDERM DAILY PRN 09/06/22 09/06/22 Ondansetron [Zofran] 4 mg PO Q8HR PRN 09/06/22 09/06/22 Previous Rx's Medication Instructions Recorded Rosuvastatin [Crestor] 10 mg PO HS #0 10/01/16 Apixaban [Eliquis] 5 mg PO BID #60 tab 10/23/18 Albuterol Inhaler [Ventolin Hfa 2 puff INHALATION RT-QID PRN #1 11/09/20 Inhaler] inhaler Insulin Lispro [humaLOG Kwikpen] See Protocol SQ ACHS #0 11/17/21 Gabapentin [Neurontin] 100 mg PO TID 3 Days #9 cap 09/09/22 Insulin Detemir (Levemir) [Levemir] 20 unit SQ BID 30 Days #1 each 09/09/22 Albuterol Inhaler [Ventolin Hfa 1 - 2 puff INHALATION Q6HR PRN #2 11/05/22 Inhaler] each Ipratropium-Albuterol Nebulize 3 ml INHALATION QID #90 ml 11/05/22 [Duoneb 0.5 mg-3 mg/3 ml Soln] predniSONE [Deltasone] 40 mg PO DAILY #8 tab 11/05/22 Allergies Allergy/AdvReac Type Severity Reaction Status Date / Time vancomycin Allergy Rash/Hives/and Verified 11/05/22 12:27 vomiting diarrhea/Swelling Review of Systems ROS Statement: Those systems with pertinent positive or pertinent negative responses have been documented in the HPI. ROS Other: All systems not noted in ROS Statement are negative. Past Medical History Past Medical History: Coronary Artery Disease (CAD), Cancer, Chest Pain / Angina, COPD, CVA/TIA, Diabetes Mellitus, Deep Vein Thrombosis (DVT), GERD/Reflux, Hyperlipidemia, Hypertension, Myocardial Infarction (NM), Osteoarthritis (OA), Pulmonary Embolus (PE) Additional Past Medical History / Comment(s): SKIN CA. 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, PAD, chronic pain syndrome, ddd lumbar region w/radiculopathy, HISTORY OF FALL 01/07/20 , tore rt rotator cuff, pancreatitis, fatty liver, left wrist sprain from hitting the wall when walking to the bathroom/wearing brace currently Last Myocardial Infarction Date:: 2010 History of Any Multi-Drug Resistant Organisms: None Reported Past Surgical History: Section, Cholecystectomy, Heart Catheterization, Heart Catheterization With Stent, Orthopedic Surgery, Tonsillectomy, Tubal Ligation Additional Past Surgical History / Comment(s): 11 Stents in left leg, fistula left thigh, full mouth teeth extraction, TRAPEASE VENA CAVA FILTER, carpel tunnel, heart stents x4 rca and lad, tumor removal from uterus. Genital warts removed, INGRID. Skin cancer removed from neck, rt great toe amputated, colonoscopy, rt rotator, left shoulder replacement, cervial fusion Past Anesthesia/Blood Transfusion Reactions: No Reported Reaction Date of Last Stent Placement:: May 2016 Past Psychological History: Anxiety, Depression Smoking Status: Current every day smoker Past Alcohol Use History: None Reported Past Drug Use History: None Reported - Past Family History Mother Family Medical History: Cancer, Congestive Heart Failure (CHF), Diabetes Mellitus, Myocardial Infarction (NM) Additional Family Medical History / Comment(s): UTERINE CANCER Father Family Medical History: Coronary Artery Disease (CAD), Myocardial Infarction (NM) Additional Family Medical History / Comment(s): Father at age 70. Sister(s) Family Medical History: Myocardial Infarction (NM) Additional Family Medical History / Comment(s): Patient has one sister with myoc ardial infarction at age 55. Son(s) Family Medical History: Deep Vein Thrombosis (DVT), Pulmonary Embolus Additional Family Medical History / Comment(s): Patient has 2 sons and one has history of DVT and pulmonary embolism. General Exam - General Exam Comments Initial Comments: GENERAL: Patient is well-developed and well-nourished. Patient is nontoxic and well- hydrated and is in mild distress. ENT: Neck is soft and supple. No significant lymphadenopathy is noted. Oropharynx is clear. Moist mucous membranes. Neck has full range of motion without eliciting any pain. EYES: The sclera were anicteric and conjunctiva were pink and moist. Extraocular movements were intact and pupils were equal round and reactive to light. Eyelids were unremarkable. PULMONARY: Patient has expiratory wheezing. CARDIOVASCULAR: There is a regular rate and rhythm without any murmurs gallops or rubs. ABDOMEN: Mild diffuse tenderness SKIN: Skin is clear with no lesions or rashes and otherwise unremarkable. NEUROLOGIC: Patient is alert and oriented x3. Cranial nerves II through XII are grossly intact. Motor and sensory are also intact. Normal speech, volume and content. Symmetrical smile. MUSCULOSKELETAL: Normal extremities with adequate strength and full range of motion. No lower extremity swelling or edema. No calf tenderness. LYMPHATICS: No significant lymphadenopathy is noted PSYCHIATRIC: Normal psychiatric evaluation. Limitations: no limitations Course Vital Signs 04/03/23 12:24 Temperature 98.4 F Pulse Rate 95 Respiratory 22 Rate Blood Pressure 117/63 O2 Sat by Pulse 99 Oximetry Medical Decision Making - Medical Decision Making EKG was interpreted by myself EKG shows sinus rhythm at 87 bpm IL interval 200 QRS 190 QT intervals 363 QTC is 407. Patient's EKG shows no ST segment elevation or depression. Was pt. sent in by a medical professional or institution (, PA, CLAIMS ANALYST, urgent care, hospital, or prison...) When possible be specific @ -No Did you speak to anyone other than the patient for history (EMS, parent, family, police, friend...)? What history was obtained from this source @ -No Did you review nursing and triage notes (agree or disagree)? Why? @ -I reviewed and agree with nursing and triage notes Were old charts reviewed (outside hosp., previous admission, EMS record, old EKG, old radiological studies, urgent care reports/EKG's, prison records)? Report findings @ -I reviewed prior laboratory results and prior x-ray results. Differential Diagnosis (chest pain, altered mental status, abdominal pain women, abdominal pain men, vaginal bleeding, weakness, fever, dyspnea, syncope, headache, dizziness, GI bleed, back pain, seizure, CVA, palpatations, mental health, musculoskeletal)? @ -Differential Dyspnea: Coronary syndrome, arrhythmia, tamponade, asthma, COPD, pulmonary embolism, pneumonia, pneumothorax, pulmonary effusion, anaphylaxis, diabetic ketoacidosis, flailed chest, pulmonary contusion, diaphragmatic rupture, anemia, neuromuscular, this is not meant to be an all-inclusive list. EKG interpreted by me (3pts min.). @ -As above X-rays interpreted by me (1pt min.). @ -Chest x-ray was interpreted by myself I saw no acute abnormalities CT interpreted by me (1pt min.). @ -None done U/S interpreted by me (1pt. min.). @ -None done What testing was considered but not performed or refused? (CT, X-rays, U/S, labs)? Why? @ -None What meds were considered but not given or refused? Why? @ -None Did you discuss the management of the patient with other professionals (professionals i.e. , PA, CLAIMS ANALYST, lab, RT, psych nurse, social service technician, filament cutter, teacher, credit officer, case management assistant)? Give summary @ -No Was smoking cessation discussed for >3mins.? @ -Yes Was critical care preformed (if so, how long)? @ -No Were there social determinants of health that impacted care today? How? (Homelessness, low income, unemployed, alcoholism, drug addiction, transportation, low edu. Level, literacy, decrease access to med. care, skilled nursing, rehab)? @ -No Was there de-escalation of care discussed even if they declined (Discuss DNR or withdrawal of care, Hospice)? DNR status @ -No What co-morbidities impacted this encounter? (DM, HTN, Smoking, COPD, CAD, Cancer, CVA, ARF, Chemo, Hep., AIDS, mental health diagnosis, sleep apnea, morbid obesity)? @ -None Was patient admitted / discharged? Hospital course, mention meds given and route, prescriptions, significant lab abnormalities, going to OR and other pertinent info. @ -Patient was given a breathing treatment and he listened to her friend that she is clear and she felt considerably better. Patient's abdomen was still only very slightly tender. Essentially her lab work was normal chest x-ray was normal d-dimer was normal troponin was normal. I spoke with her about sending her home with some albuterol because she states she ran out of hers and steroids she was happy with this and he wanted to follow-up with her primary medical care doctor for her abdominal discomfort for the last month. Undiagnosed new problem with uncertain prognosis? @ -No Drug Therapy requiring intensive monitoring for toxicity (Heparin, Nitro, Insulin, Cardizem)? @ -No Were any procedures done? @ -No Diagnosis/symptom? @ -Bronchospasms Acute, or Chronic, or Acute on Chronic? @ -Acute Uncomplicated (without systemic symptoms) or Complicated (systemic symptoms)? @ -Complicated Side effects of treatment? @ -No Exacerbation, Progression, or Severe Exacerbation? @ -No Poses a threat to life or bodily function? How? (Chest pain, USA, NM, pneumonia, PE, COPD, DKA, ARF, appy, cholecystitis, CVA, Diverticulitis, Homicidal, Suicidal, threat to staff... and all critical care pts) @ -No - Lab Data Result diagrams: 11/05/22 13:37 11/05/22 13:37 Lab Results 11/05/22 11/05/22 11/05/22 Range/Units 13:04 13:04 13:37 WBC 10.4 (3.8-10.6) k/uL RBC 4.87 (3.80-5.40) m/uL Hgb 11.4 (11.4-16.0) gm/dL Hct 35.7 (34.0-46.0) % MCV 73.4 L (80.0-100.0) fL MCH 23.5 L (25.0-35.0) pg MCHC 32.0 (31.0-37.0) g/dL RDW 19.3 H (11.5-15.5) % Plt Count 234 (150-450) k/uL MPV 7.6 Neutrophils % 76 % Lymphocytes % 17 % Monocytes % 4 % Eosinophils % 2 % Basophils % 0 % Neutrophils # 7.9 H (1.3-7.7) k/uL Lymphocytes # 1.8 (1.0-4.8) k/uL Monocytes # 0.4 (0-1.0) k/uL Eosinophils # 0.2 (0-0.7) k/uL Basophils # 0.0 (0-0.2) k/uL Hypochromasia Slight Anisocytosis Slight Microcytosis Moderate PT (9.0-12.0) sec INR (<1.2) APTT (22.0-30.0) sec D-Dimer (<0.60) mg/L FEU Sodium (137-145) mmol/L Potassium (3.5-5.1) mmol/L Chloride (98-107) mmol/L Carbon Dioxide (22-30) mmol/L Anion Gap mmol/L BUN (7-17) mg/dL Creatinine (0.52-1.04) mg/dL Est GFR (CKD-EPI)AfAm (>60 ml/min/1.73 sqM) Est GFR (CKD-EPI)NonAf (>60 ml/min/1.73 sqM) Glucose (74-99) mg/dL Plasma Lactic Acid Mynor (0.7-2.0) mmol/L Calcium (8.4-10.2) mg/dL Magnesium (1.6-2.3) mg/dL Total Bilirubin (0.2-1.3) mg/dL AST (14-36) U/L ALT (4-34) U/L Alkaline Phosphatase (38-126) U/L Troponin I (0.000-0.034) ng/mL Total Protein (6.3-8.2) g/dL Albumin (3.5-5.0) g/dL Lipase (23-300) U/L Coronavirus (PCR) Not Detected (Not Detectd) Influenza Type A RNA Not Detected (Not Detectd) Influenza Type B (PCR) Not Detected (Not Detectd) 11/05/22 11/05/22 11/05/22 Range/Units 13:37 13:37 13:37 WBC (3.8-10.6) k/uL RBC (3.80-5.40) m/uL Hgb (11.4-16.0) gm/dL Hct (34.0-46.0) % MCV (80.0-100.0) fL MCH (25.0-35.0) pg MCHC (31.0-37.0) g/dL RDW (11.5-15.5) % Plt Count (150-450) k/uL MPV Neutrophils % % Lymphocytes % % Monocytes % % Eosinophils % % Basophils % % Neutrophils # (1.3-7.7) k/uL Lymphocytes # (1.0-4.8) k/uL Monocytes # (0-1.0) k/uL Eosinophils # (0-0.7) k/uL Basophils # (0-0.2) k/uL Hypochromasia Anisocytosis Microcytosis PT 10.1 (9.0-12.0) sec INR 0.9 (<1.2) APTT 21.2 L (22.0-30.0) sec D-Dimer 0.52 (<0.60) mg/L FEU Sodium 135 L (137-145) mmol/L Potassium 4.8 (3.5-5.1) mmol/L Chloride 99 (98-107) mmol/L Carbon Dioxide 32 H (22-30) mmol/L Anion Gap 4 mmol/L BUN 19 H (7-17) mg/dL Creatinine 0.84 (0.52-1.04) mg/dL Est GFR (CKD-EPI)AfAm 87 (>60 ml/min/1.73 sqM) Est GFR (CKD-EPI)NonAf 75 (>60 ml/min/1.73 sqM) Glucose 131 H (74-99) mg/dL Plasma Lactic Acid Mynor 1.5 (0.7-2.0) mmol/L Calcium 10.0 (8.4-10.2) mg/dL Magnesium 1.8 (1.6-2.3) mg/dL Total Bilirubin 0.6 (0.2-1.3) mg/dL AST 76 H (14-36) U/L ALT 90 H (4-34) U/L Alkaline Phosphatase 103 (38-126) U/L Troponin I (0.000-0.034) ng/mL Total Protein 6.7 (6.3-8.2) g/dL Albumin 3.5 (3.5-5.0) g/dL Lipase 54 (23-300) U/L Coronavirus (PCR) (Not Detectd) Influenza Type A RNA (Not Detectd) Influenza Type B (PCR) (Not Detectd) 11/05/22 Range/Units 13:37 WBC (3.8-10.6) k/uL RBC (3.80-5.40) m/uL Hgb (11.4-16.0) gm/dL Hct (34.0-46.0) % MCV (80.0-100.0) fL MCH (25.0-35.0) pg MCHC (31.0-37.0) g/dL RDW (11.5-15.5) % Plt Count (150-450) k/uL MPV Neutrophils % % Lymphocytes % % Monocytes % % Eosinophils % % Basophils % % Neutrophils # (1.3-7.7) k/uL Lymphocytes # (1.0-4.8) k/uL Monocytes # (0-1.0) k/uL Eosinophils # (0-0.7) k/uL Basophils # (0-0.2) k/uL Hypochromasia Anisocytosis Microcytosis PT (9.0-12.0) sec INR (<1.2) APTT (22.0-30.0) sec D-Dimer (<0.60) mg/L FEU Sodium (137-145) mmol/L Potassium (3.5-5.1) mmol/L Chloride (98-107) mmol/L Carbon Dioxide (22-30) mmol/L Anion Gap mmol/L BUN (7-17) mg/dL Creatinine (0.52-1.04) mg/dL Est GFR (CKD-EPI)AfAm (>60 ml/min/1.73 sqM) Est GFR (CKD-EPI)NonAf (>60 ml/min/1.73 sqM) Glucose (74-99) mg/dL Plasma Lactic Acid Mynor (0.7-2.0) mmol/L Calcium (8.4-10.2) mg/dL Magnesium (1.6-2.3) mg/dL Total Bilirubin (0.2-1.3) mg/dL AST (14-36) U/L ALT (4-34) U/L Alkaline Phosphatase (38-126) U/L Troponin I <0.012 (0.000-0.034) ng/mL Total Protein (6.3-8.2) g/dL Albumin (3.5-5.0) g/dL Lipase (23-300) U/L Coronavirus (PCR) (Not Detectd) Influenza Type A RNA (Not Detectd) Influenza Type B (PCR) (Not Detectd) Disposition Clinical Impression: Acute bronchospasm Disposition: HOME SELF-CARE Condition: Good Instructions (If sedation given, give patient instructions): Bronchospasm (ED) Prescriptions: predniSONE [Deltasone] 40 mg PO DAILY #8 tab Ipratropium-Albuterol Nebulize [Duoneb 0.5 mg-3 mg/3 ml Soln] 3 ml INHALATION QID #90 ml Albuterol Inhaler [Ventolin Hfa Inhaler] 1 - 2 puff INHALATION Q6HR PRN #2 each PRN Reason: Difficulty breathing Is patient prescribed a controlled substance at d/c from ED?: No Referrals: Delta Medel MD [Primary Care Provider] - 1-2 days Time of Disposition: 15:18
[2022-11-05 14:04] LABS: Anisocytosis Slight; Basophils % (A) 0 %; Eosinophils # (A) 0.2 k/uL (0-0.7); Eosinophils % (A) 2 %; HCT 35.7 % (34.0-46.0); HGB 11.4 gm/dL (11.4-16.0); Hypochromasia Slight; Lymphocytes # (A) 1.8 k/uL (1.0-4.8); Lymphocytes % (A) 17 %; MCH 23.5 pg (25.0-35.0); MCV 73.4 fL (80.0-100.0); Mean Platelet Volume 7.6; Microcytosis Moderate; Monocytes # (A) 0.4 k/uL (0-1.0); Monocytes % (A) 4 %; Neutrophils # (A) 7.9 k/uL (1.3-7.7); Neutrophils % (A) 76 %; Platelet Count 234 k/uL (150-450); RBC 4.87 m/uL (3.80-5.40); RDW 19.3 % (11.5-15.5); WBC 10.4 k/uL (3.8-10.6)
[2022-11-05 14:13] LABS: Albumin 3.5 g/dL (3.5-5.0); Magnesium 1.8 mg/dL (1.6-2.3); Potassium 4.8 mmol/L (3.5-5.1); Total Bilirubin 0.6 mg/dL (0.2-1.3); Total Protein 6.7 g/dL (6.3-8.2)
--- NOTE | 2022-11-05 14:21 | XR ---
EXAMINATION TYPE: XR chest 2V DATE OF EXAM: 11/05/2022 COMPARISON: 05/06/2023 INDICATION: Cough, difficulty in breathing TECHNIQUE: Frontal and lateral views of the chest are obtained. FINDINGS: The heart size is normal. The pulmonary vasculature is normal. The lungs are clear. Left shoulder prosthesis is evident. IMPRESSION: 1. No acute pulmonary process.
[2022-11-05 14:44] LABS: INR 0.9 (<1.2); Prothrombin Time 10.1 sec (9.0-12.0)
[2022-11-05 14:55] LABS: Partial Thromboplastin Time 21.2 sec (22.0-30.0)
[2022-11-05 15:53] VITALS: BP 137/87; PULSE 80; RESP 18
== END 2022-11-05 15:52 | disposition home or self-care (01) ==
LOC: EC 12:11
DX: J98.01 Acute bronchospasm (principal); I10 Essential (primary) hypertension; I25.10 Atherosclerotic heart disease of native coronary artery without angina pectoris; I25.2 Old myocardial infarction; J44.9 Chronic obstructive pulmonary disease, unspecified; K21.9 Gastro-esophageal reflux disease without esophagitis; E11.9 Type 2 diabetes mellitus without complications; E78.5 Hyperlipidemia, unspecified; F32.A Depression, unspecified; F41.9 Anxiety disorder, unspecified; F17.200 Nicotine dependence, unspecified, uncomplicated; M19.90 Unspecified osteoarthritis, unspecified site; Z79.01 Long term (current) use of anticoagulants; Z79.4 Long term (current) use of insulin; Z79.52 Long term (current) use of systemic steroids; Z79.84 Long term (current) use of oral hypoglycemic drugs; Z79.899 Other long term (current) drug therapy; Z90.49 Acquired absence of other specified parts of digestive tract; Z20.822 Contact with and (suspected) exposure to COVID-19
CPT/HCPCS: 36415; 93005; 85379; 80053; 83605; 83690; 83735; 84484; 85025; 85610; 85730; 87502; 87635; 71046; 99284; 96374; 96361; J1170

== ENCOUNTER 2023-05-28 15:44 | Inpatient (IN) | payer MEDICARE, OTHER ==
[2023-05-28 17:24] LABS: Anisocytosis Slight; Basophils % (A) 0 %; Eosinophils # (A) 0.5 k/uL (0-0.7); Eosinophils % (A) 4 %; HCT 38.4 % (34.0-46.0); HGB 12.1 gm/dL (11.4-16.0); Hypochromasia Moderate; Lymphocytes # (A) 1.7 k/uL (1.0-4.8); Lymphocytes % (A) 13 %; MCH 26.6 pg (25.0-35.0); MCHC 31.4 g/dL (31.0-37.0); MCV 84.8 fL (80.0-100.0); Mean Platelet Volume 8.3; Monocytes # (A) 0.6 k/uL (0-1.0); Monocytes % (A) 4 %; Neutrophils # (A) 10.5 k/uL (1.3-7.7); Neutrophils % (A) 79 %; Poikilocytosis Slight; RBC 4.53 m/uL (3.80-5.40); RDW 17.6 % (11.5-15.5); WBC 13.4 k/uL (3.8-10.6)
[2023-05-28 17:31] LABS: INR 1.1 (<1.2); Prothrombin Time 11.5 sec (10.0-12.5)
[2023-05-28 17:33] LABS: ALT 17 U/L (4-34); AST 28 U/L (14-36); African American GFR (CKD) 86 (>60 ml/min/1.73 sqM); Albumin 2.9 g/dL (3.5-5.0); Alkaline Phosphatase 160 U/L (38-126); Anion Gap 14 mmol/L; Blood Urea Nitrogen 5 mg/dL (7-17); Calcium 7.6 mg/dL (8.4-10.2); Carbon Dioxide 31 mmol/L (22-30); Chloride 89 mmol/L (98-107); Glucose 134 mg/dL (74-99); Non-African American GFR(CKD) 75 (>60 ml/min/1.73 sqM); Potassium 2.8 mmol/L (3.5-5.1); Sodium 134 mmol/L (137-145); Total Bilirubin 0.7 mg/dL (0.2-1.3); Total Protein 6.6 g/dL (6.3-8.2)
[2023-05-28 17:33] LABS: Platelet Count 339 k/uL (150-450)
[2023-05-28] MEDS ORDERED: HYDROmorphone 1 MG/ML 1 ML SYRINGE IVP STA (17:34)
--- NOTE | 2023-05-28 17:37 | ED ---
General Adult HPI - General Chief complaint: Recheck/Abnormal Lab/Rx Stated complaint: foot infection Time Seen by Provider: 05/28/23 16:35 Source: patient, family, EMS, RN notes reviewed Mode of arrival: EMS Limitations: no limitations - History of Present Illness Initial comments: Patient is a pleasant 63-year-old female presenting to the emergency department with concern for infection. Patient was in the hospital recently with concern for gangrene of the toes. Patient did have a skin graft placed on her right lower leg. Patient did have hematoma of the abdomen and heart stent. Patient did have open wound of the right lower abdomen and this was followed by wound VAC. Wound VAC was removed and purulent drainage has been noted. - Related Data Home Medications Medication Instructions Recorded Confirmed Docusate [Colace] 100 mg PO DAILY 11/14/21 05/20/23 Cyclobenzaprine [Flexeril] 5 mg PO HS PRN 09/06/22 05/20/23 DULoxetine HCL [Cymbalta] 60 mg PO DAILY 09/06/22 05/20/23 Ferrous Sulfate [Feosol] 325 mg PO BID 01/08/23 05/20/23 Rosuvastatin [Crestor] 20 mg PO DAILY 01/08/23 05/20/23 Ergocalciferol (Vitamin D2) 1,250 mcg PO GUERRERO 04/01/23 05/20/23 [Drisdol (50,000 Iu)] Melatonin 3 mg PO HS 04/01/23 05/20/23 Nitroglycerin Sl Tabs [Nitrostat] 0.4 mg SL Q5M PRN 04/01/23 05/20/23 Omeprazole [PriLOSEC] 20 mg PO DAILY 04/01/23 05/20/23 Potassium Chloride ER [K-Dur 10] 10 meq PO BID 04/22/23 05/20/23 INSULIN LISPRO (HumaLOG) [humaLOG] 10 units SQ AC-TID 05/10/23 05/20/23 INSULIN LISPRO (HumaLOG) [humaLOG] See Protocol SQ AC-TID 05/10/23 05/20/23 Insulin Glargine,Hum.rec.anlog 34 units SQ HS 05/10/23 05/20/23 [Lantus Solostar Pen] Apixaban [Eliquis] 5 mg PO BID 05/20/23 05/20/23 Clopidogrel [Plavix] 75 mg PO DAILY 05/20/23 05/20/23 Dapagliflozin Propanediol [Farxiga] 10 mg PO DAILY 05/20/23 05/20/23 traMADol HCL 50 mg PO DAILY 05/20/23 05/20/23 Previous Rx's Medication Instructions Recorded Metoprolol Tartrate [Lopressor] 25 mg PO BID #60 tab 04/15/23 lisinopriL [Zestril] 5 mg PO DAILY #30 tab 04/15/23 Gabapentin [Neurontin] 400 mg PO TID #9 cap 05/02/23 HYDROcodone/APAP 7.5-325MG [[place] 1 tab PO QID PRN #12 tab 05/02/23 7.5-325] Collagenase [Santyl Ointment] 1 applic TOPICAL DAILY each 05/18/23 Allergies Allergy/AdvReac Type Severity Reaction Status Date / Time vancomycin Allergy Rash/Hives/and Verified 05/28/23 15:55 vomiting diarrhea/Swelling Review of Systems ROS Statement: Those systems with pertinent positive or pertinent negative responses have been documented in the HPI. ROS Other: All systems not noted in ROS Statement are negative. Constitutional: Reports: fever Eyes: Denies: eye pain ENT: Denies: ear pain Respiratory: Denies: cough, dyspnea Cardiovascular: Denies: chest pain Endocrine: Reports: fatigue Gastrointestinal: Denies: abdominal pain Skin: Reports: as per HPI Past Medical History Past Medical History: Diabetes Mellitus, Deep Vein Thrombosis (DVT) Additional Past Medical History / Comment(s): SKIN CA. 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, NEUROPATHY LEGS & FEET, USING WALKER, .Mutiple DVT,mesentaric thrombosis x2 & PE, PAD, chronic pain syndrome, ddd lumbar region w/radiculopathy, HISTORY OF FALL 01/07/20 , tore rt rotator cuff, pancreatitis, fatty liver, Last Myocardial Infarction Date:: 2010 History of Any Multi-Drug Resistant Organisms: None Reported Past Surgical History: Section, Cholecystectomy, Heart Catheterization, Heart Catheterization With Stent, Orthopedic Surgery, Tonsillectomy, Tubal Ligation Additional Past Surgical History / Comment(s): 11 Stents in left leg, fistula left thigh, full mouth teeth extraction, TRAPEASE VENA CAVA FILTER, carpel tunnel, heart stents x4 rca and lad, tumor removal from uterus. Genital warts removed, INGRID. Skin cancer removed from neck, rt great toe amputated, colonoscopy, rt rotator, left shoulder replacement, cervial fusion Past Anesthesia/Blood Transfusion Reactions: No Reported Reaction Date of Last Stent Placement:: May 2016 Past Psychological History: Anxiety, Depression Smoking Status: Light tobacco smoker Past Alcohol Use History: None Reported Past Drug Use History: None Reported - Past Family History Mother Family Medical History: Cancer, Congestive Heart Failure (CHF), Diabetes Mellitus, Myocardial Infarction ([place]) Additional Family Medical History / Comment(s): UTERINE CANCER Father Family Medical History: Coronary Artery Disease (CAD), Myocardial Infarction ([place]) Additional Family Medical History / Comment(s): Father at age 70. Sister(s) Family Medical History: Myocardial Infarction ([place]) Additional Family Medical History / Comment(s): Patient has one sister with myocardial infarction at age 55. Son(s) Family Medical History: Deep Vein Thrombosis (DVT), Pulmonary Embolus Additional Family Medical History / Comment(s): Patient has 2 sons and one has history of DVT and pulmonary embolism. General Exam Limitations: no limitations General appearance: alert, in no apparent distress Head exam: Present: normocephalic Eye exam: Present: normal appearance Neck exam: Present: normal inspection Respiratory exam: Present: normal lung sounds bilaterally Cardiovascular Exam: Present: regular rate, normal rhythm GI/Abdominal exam: Present: soft. Absent: tenderness Extremities exam: Present: other (Dry gangrene right remaining toes. Distally.) Neurological exam: Present: alert Psychiatric exam: Present: normal affect, normal mood Skin exam: Present: other (Dry gangrene right distal toes. Right posterior lower leg wound approximately 4 x 15 cm with previous graft with purulent drainage and surrounding erythema. Right lower abdominal wound with opening and per the drainage) Course Vital Signs 05/28/23 05/28/23 05/28/23 15:51 17:50 18:20 Temperature 101.1 F H 100.6 F H Pulse Rate 81 89 89 Respiratory 18 18 18 Rate Blood Pressure 104/65 101/65 O2 Sat by Pulse 98 98 99 Oximetry Procedures - Sepsis Sepsis Focused Exam #1 Time Sepsis Criteria Met: 17:50 Sepsis Focused Exam Date: 05/28/23 Sepsis Focused Exam Time: 18:23 Sepsis Focused Exam Complete: Yes Vital Signs & RN Notes Reviewed: Yes Capillary Refill: < 2 Seconds: Fingers, Toes Peripheral Pulses: Normal: Radial (R), Radial (L) Skin Color: Normal for Patient Respiratory Exam: normal lung sounds Cardiovascular Exam: regular rate, normal rhythm Medical Decision Making - Medical Decision Making There is concern for septic shock diagnosed at 1750. Blood culture and lactic acid and IV antibiotics have all been ordered. Fluid bolus has been ordered. Fluid bolus has been ordered based off ideal body weight of 61.2 kg for a 5 foot 7 female which is 18 36 mL. 2000 mL ordered. Was pt. sent in by a medical professional or institution (, PA, SYSTEMS REQUIREMENTS PLANNER, urgent care, hospital, or alf...) When possible be specific @ -No Did you speak to anyone other than the patient for history (EMS, parent, family, police, friend...)? What history was obtained from this source @ -Family is present and helps provide history including patient's recent skin graft Did you review nursing and triage notes (agree or disagree)? Why? @ -I reviewed and agree with nursing and triage notes Were old charts reviewed (outside hosp., previous admission, EMS record, old EKG, old radiological studies, urgent care reports/EKG's, alf records)? Report findings @ -No old charts were reviewed Differential Diagnosis (chest pain, altered mental status, abdominal pain women, abdominal pain men, vaginal bleeding, weakness, fever, dyspnea, syncope, headache, dizziness, GI bleed, back pain, seizure, CVA, palpatations, mental health, musculoskeletal)? @ -Differential Fever: Pneumonia, viral URI, endocarditis, myocarditis, pericarditis, otitis, sinusitis, peritonsillar Abscess, retropharyngeal Abscess, epiglottitis, peritonitis, appendicitis, Maribell cystitis, diverticulitis, hepatitis, colitis, UTI, PID, TOA, pyelonephritis, prostatitis, epididymitis, meningitis, encephalitis, pulmonary embolism, CVA, thyroid storm, pancreatitis, adrenal crisis, cavernous sinus thrombosis, this is not meant to be an all-inclusive list. EKG interpreted by me (3pts min.). @ -As above X-rays interpreted by me (1pt min.). @ -None done CT interpreted by me (1pt min.). @ -None done U/S interpreted by me (1pt. min.). @ -None done What testing was considered but not performed or refused? (CT, X-rays, U/S, labs)? Why? @ -None What meds were considered but not given or refused? Why? @ -None Did you discuss the management of the patient with other professionals (professionals i.e. , PA, SYSTEMS REQUIREMENTS PLANNER, lab, RT, psych nurse, manager social media, animal biologist, teacher, public safety officer, case investigator)? Give summary @ -Case was discussed with Dr. Tejeda who is familiar with this patient and will admit with consult for infectious disease as well as vascular. He does recommend cefepime until seen by an infectious disease. Was smoking cessation discussed for >3mins.? @ -No Was critical care preformed (if so, how long)? @ -3 months. There is a Were there social determinants of health that impacted care today? How? (Homelessness, low income, unemployed, alcoholism, drug addiction, transportation, low edu. Level, literacy, decrease access to med. care, intermediate, rehab)? @ -No Was there de-escalation of care discussed even if they declined (Discuss DNR or withdrawal of care, Hospice)? DNR status @ -No What co-morbidities impacted this encounter? (DM, HTN, Smoking, COPD, CAD, Cancer, CVA, ARF, Chemo, Hep., AIDS, mental health diagnosis, sleep apnea, morbid obesity)? @History of diabetes and vascular insufficiency. History of previous wounds Was patient admitted / discharged? Hospital course, mention meds given and route, prescriptions, significant lab abnormalities, going to OR and other pertinent info. @ -Patient reevaluated. Patient and family updated. Patient will be admitted with IV antibiotics. Patient does meet criteria for septic shock. Admission orders written. Consult placed. Undiagnosed new problem with uncertain prognosis? @ -No Drug Therapy requiring intensive monitoring for toxicity (Heparin, Nitro, Insulin, Cardizem)? @ -No Were any procedures done? @ -No Diagnosis/symptom? @ -Septic shock, infected leg ulcer Acute, or Chronic, or Acute on Chronic? @ -Acute, acute on chronic Uncomplicated (without systemic symptoms) or Complicated (systemic symptoms)? @ -default Side effects of treatment? @ -No Exacerbation, Progression, or Severe Exacerbation? @ -No Poses a threat to life or bodily function? How? (Chest pain, [place], [place], pneumonia, PE, COPD, DKA, ARF, appy, cholecystitis, CVA, Diverticulitis, Homicidal, Suicidal, threat to staff... and all critical care pts) @ -To loss of limb from gangrene and infection. Potential life threatening septic shock. - Lab Data Result diagrams: 05/28/23 15:58 05/28/23 15:57 Lab Results 05/28/23 05/28/23 05/28/23 Range/Units 15:57 15:57 15:58 WBC 13.4 H (3.8-10.6) k/uL RBC 4.53 (3.80-5.40) m/uL Hgb 12.1 (11.4-16.0) gm/dL Hct 38.4 (34.0-46.0) % MCV 84.8 (80.0-100.0) fL MCH 26.6 (25.0-35.0) pg MCHC 31.4 (31.0-37.0) g/dL RDW 17.6 H (11.5-15.5) % Plt Count 339 D (150-450) k/uL MPV 8.3 Neutrophils % 79 % Lymphocytes % 13 % Monocytes % 4 % Eosinophils % 4 % Basophils % 0 % Neutrophils # 10.5 H (1.3-7.7) k/uL Lymphocytes # 1.7 (1.0-4.8) k/uL Monocytes # 0.6 (0-1.0) k/uL Eosinophils # 0.5 (0-0.7) k/uL Basophils # 0.0 (0-0.2) k/uL Hypochromasia Moderate Poikilocytosis Slight Anisocytosis Slight PT 11.5 (10.0-12.5) sec INR 1.1 (<1.2) Sodium 134 L (137-145) mmol/L Potassium 2.8 L (3.5-5.1) mmol/L Chloride 89 L (98-107) mmol/L Carbon Dioxide 31 H (22-30) mmol/L Anion Gap 14 mmol/L BUN 5 L (7-17) mg/dL Creatinine 0.84 (0.52-1.04) mg/dL Est GFR (CKD-EPI)AfAm 86 (>60 ml/min/1.73 sqM) Est GFR (CKD-EPI)NonAf 75 (>60 ml/min/1.73 sqM) Glucose 134 H (74-99) mg/dL Plasma Lactic Acid Mynor (0.7-2.0) mmol/L Calcium 7.6 L (8.4-10.2) mg/dL Total Bilirubin 0.7 (0.2-1.3) mg/dL AST 28 (14-36) U/L ALT 17 (4-34) U/L Alkaline Phosphatase 160 H (38-126) U/L Total Protein 6.6 (6.3-8.2) g/dL Albumin 2.9 L (3.5-5.0) g/dL 05/28/23 Range/Units 15:58 WBC (3.8-10.6) k/uL RBC (3.80-5.40) m/uL Hgb (11.4-16.0) gm/dL Hct (34.0-46.0) % MCV (80.0-100.0) fL MCH (25.0-35.0) pg MCHC (31.0-37.0) g/dL RDW (11.5-15.5) % Plt Count (150-450) k/uL MPV Neutrophils % % Lymphocytes % % Monocytes % % Eosinophils % % Basophils % % Neutrophils # (1.3-7.7) k/uL Lymphocytes # (1.0-4.8) k/uL Monocytes # (0-1.0) k/uL Eosinophils # (0-0.7) k/uL Basophils # (0-0.2) k/uL Hypochromasia Poikilocytosis Anisocytosis PT (10.0-12.5) sec INR (<1.2) Sodium (137-145) mmol/L Potassium (3.5-5.1) mmol/L Chloride (98-107) mmol/L Carbon Dioxide (22-30) mmol/L Anion Gap mmol/L BUN (7-17) mg/dL Creatinine (0.52-1.04) mg/dL Est GFR (CKD-EPI)AfAm (>60 ml/min/1.73 sqM) Est GFR (CKD-EPI)NonAf (>60 ml/min/1.73 sqM) Glucose (74-99) mg/dL Plasma Lactic Acid Mynor 4.6 H* (0.7-2.0) mmol/L Calcium (8.4-10.2) mg/dL Total Bilirubin (0.2-1.3) mg/dL AST (14-36) U/L ALT (4-34) U/L Alkaline Phosphatase (38-126) U/L Total Protein (6.3-8.2) g/dL Albumin (3.5-5.0) g/dL Critical Care Time Critical Care Time: Yes Total Critical Care Time: 33 Disposition Clinical Impression: Septic shock, Leg wound, right, Cellulitis of right leg Disposition: ADMITTED IP TO THIS [facility] Condition: Serious Is patient prescribed a controlled substance at d/c from ED?: No Time of Disposition: 17:53
[2023-05-28] MEDS ORDERED: POTASSIUM CHLORIDE ER 20 MEQ TAB.ER PO STA (17:38)
[2023-05-28] MEDS ORDERED: ACETAMINOPHEN TAB 500 MG TAB PO STA (17:43)
[2023-05-28] MEDS ORDERED: CEFEPIME 2 GM in SODIUM CHLORIDE 0.9% 100 ML IVPB STA (17:45)
[2023-05-28] MEDS ORDERED: CLINDAMYCIN 600 MG/50 ML-D5W 600 MG in DEXTROSE/WATER 1 50ML.BAG IVPB ONE (17:45)
[2023-05-28] MEDS ORDERED: SODIUM CHLORIDE 0.9% 1,000 ML IV STA ×2 (17:46)
[2023-05-28] MEDS ORDERED: NALOXONE 0.4 MG/ML 1 ML VIAL IV PRN (17:56)
[2023-05-28] MEDS: SODIUM CHLORIDE 0.9% 1,000 ML IV SCH (18:35)
--- NOTE | 2023-05-28 18:54 | XR ---
EXAMINATION TYPE: XR chest 2V DATE OF EXAM: 05/28/2023 6:32 PM CLINICAL INDICATION:Female, 63 years old with history of fever; [facility] COMPARISON: Chest radiographs from 04/10/2023. TECHNIQUE: XR chest 2V Frontal and lateral views of the chest. FINDINGS: Lungs/Pleura: There is no evidence of pleural effusion, focal consolidation, or pneumothorax. Pulmonary vascularity: Unremarkable. Heart/mediastinum: Cardiomediastinal silhouette is unremarkable. Musculoskeletal: No acute osseous pathology. There is fixation hardware in the lower cervical spine. Left shoulder arthroplasty, hardware appears intact. Other findings: None IMPRESSION: Low lung volumes with a generalized hazy appearance which could represent atelectasis. No focal conso lidation. Not significantly changed from prior exam.
--- NOTE | 2023-05-28 18:57 | XR ---
EXAMINATION TYPE: XR tibia fibula RT DATE OF EXAM: 05/28/2023 6:34 PM CLINICAL INDICATION:Female, 63 years old with history of fever; [facility] COMPARISON: 05/06/2017 TECHNIQUE: XR tibia fibula RT; tibia/fibula was examined in AP and lateral projections. FINDINGS: Soft tissue swelling with some subcutaneous gas in the leg distally posteriorly. There is f ew surgical clips present. No evidence of fracture or osseous erosion. IMPRESSION: There is subcutaneous lucencies posterior distal right leg. Correlate clinically. Soft tissue swellin g is present. Findings could be compatible with cellulitis.
[2023-05-28] MEDS ORDERED: NITROGLYCERIN SL TABS 0.4 MG TAB SUBLINGUAL PRN (19:14)
[2023-05-28 20:52] LABS: Glucose,Whole Blood 127 mg/dL (70-110)
[2023-05-28] MEDS ORDERED: INSULIN DETEMIR (LEVEMIR) 100 UNIT/ML SYR SQ SCH (21:00)
[2023-05-28] MEDS: HYDROmorphone 1 MG/ML 1 ML SYRINGE IVP PRN (21:16)
[2023-05-28] MEDS: MELATONIN 3 MG TABLET PO SCH ×2 (22:26→22:27)
[2023-05-28] MEDS: GABAPENTIN 400 MG CAP PO SCH (22:26)
[2023-05-28] MEDS: FERROUS SULFATE 325 MG TAB PO SCH (22:27)
[2023-05-28] MEDS: POTASSIUM CHLORIDE ER 10 MEQ TAB.ER.PRT PO SCH (22:27)
[2023-05-28] MEDS: APIXABAN 5 MG TAB PO SCH (22:27)
[2023-05-28] MEDS: METOPROLOL TARTRATE 25 MG TAB PO SCH (22:27)
[2023-05-28] MEDS: HYDROcodone/APAP 7.5-325MG 1 EACH TAB PO PRN (22:30)
[2023-05-29] MEDS ORDERED: CLINDAMYCIN 600 MG in DEXTROSE 5% IN WATER 50 ML IVPB SCH ×2
[2023-05-29] MEDS: SODIUM CHLORIDE 0.9% 1,000 ML IV SCH ×3 (00:51→16:43)
[2023-05-29] MEDS: HYDROmorphone 1 MG/ML 1 ML SYRINGE IVP PRN ×5 (00:57→21:01)
[2023-05-29] MEDS: CEFEPIME 2 GM in SODIUM CHLORIDE 0.9% 100 ML IVPB SCH ×2 (06:00→17:22)
[2023-05-29 06:39] LABS: Glucose,Whole Blood 85 mg/dL (70-110)
[2023-05-29] MEDS: INSULIN ASPART (NovoLOG) 100 UNIT/ML VIAL SQ SCH ×3 (06:42→17:21)
[2023-05-29] MEDS ORDERED: ATORVASTATIN 40 MG TAB PO SCH (09:00)
[2023-05-29] MEDS: APIXABAN 5 MG TAB PO SCH (09:40)
[2023-05-29] MEDS: PANTOPRAZOLE 40 MG TABLET PO SCH (09:40)
[2023-05-29] MEDS: POTASSIUM CHLORIDE ER 10 MEQ TAB.ER.PRT PO SCH ×2 (09:40→21:00)
[2023-05-29] MEDS: CLOPIDOGREL 75 MG TAB PO SCH (09:40)
[2023-05-29] MEDS: METOPROLOL TARTRATE 25 MG TAB PO SCH ×2 (09:40→21:00)
[2023-05-29] MEDS: DULoxetine HCL 60 MG CAPSULE.DR PO SCH (09:40)
[2023-05-29] MEDS: DOCUSATE 100 MG CAP PO SCH (09:40)
[2023-05-29] MEDS: FERROUS SULFATE 325 MG TAB PO SCH ×2 (09:40→21:00)
[2023-05-29] MEDS: lisinopriL 5 MG TAB PO SCH (09:40)
[2023-05-29] MEDS: GABAPENTIN 400 MG CAP PO SCH ×3 (09:41→21:00)
[2023-05-29 11:22] LABS: Anisocytosis Slight; Basophils % (A) 0 %; Eosinophils # (A) 0.4 k/uL (0-0.7); Eosinophils % (A) 4 %; HCT 33.8 % (34.0-46.0); HGB 10.6 gm/dL (11.4-16.0); Hypochromasia Marked; Lymphocytes % (A) 9 %; MCH 27.4 pg (25.0-35.0); MCHC 31.3 g/dL (31.0-37.0); MCV 87.4 fL (80.0-100.0); Mean Platelet Volume 8.1; Monocytes # (A) 0.5 k/uL (0-1.0); Monocytes % (A) 4 %; Neutrophils # (A) 9.6 k/uL (1.3-7.7); Neutrophils % (A) 83 %; Platelet Count 269 k/uL (150-450); Poikilocytosis Slight; RBC 3.87 m/uL (3.80-5.40); RDW 17.7 % (11.5-15.5); WBC 11.6 k/uL (3.8-10.6)
[2023-05-29 11:35] LABS: Glucose,Whole Blood 129 mg/dL (70-110)
[2023-05-29 11:44] LABS: ALT 12 U/L (4-34); AST 24 U/L (14-36); African American GFR (CKD) >90 (>60 ml/min/1.73 sqM); Albumin 2.3 g/dL (3.5-5.0); Alkaline Phosphatase 131 U/L (38-126); Anion Gap 9 mmol/L; Blood Urea Nitrogen 6 mg/dL (7-17); Calcium 7.2 mg/dL (8.4-10.2); Carbon Dioxide 28 mmol/L (22-30); Chloride 101 mmol/L (98-107); Glucose 104 mg/dL (74-99); Non-African American GFR(CKD) >90 (>60 ml/min/1.73 sqM); Potassium 3.2 mmol/L (3.5-5.1); Sodium 138 mmol/L (137-145); Total Bilirubin 0.4 mg/dL (0.2-1.3); Total Protein 5.4 g/dL (6.3-8.2)
--- NOTE | 2023-05-29 13:19 | P.GSCN ---
History of Present Illness Consult date: 05/29/23 Reason for Consult: Leg and groin wound infection Requesting physician: Evert Hodges History of present illness: This is a pleasant 63-year-old female with a past medical history including coronary artery disease status post stenting, diabetes mellitus, DVT, skin cancer, CVA, neuropathy, degenerative disc disease, peripheral arterial disease with femoral occlusion status post fem-tib bypass graft with CryoVein, right common thromboendarterectomy done during 2322, right groin hematoma status post hematoma evacuation done 04/30/2023, and right Achilles wound status post debridement with skin graft applied. Patient was sent in by her home care nurse for concerns for infection of the right lower extremity. Patient had wound VAC removal of the right groin and debridement of the right lower extremity with skin graft 05/20/2023. She has a follow-up appointment with Dr. Rios tomorrow. She has not had any wound care to the right lower extremity and just using 4 x 4 gauze to the right groin. She is no longer on IV antibiotics and had her PICC line removed last week. She states her home care nurse was aware yesterday patient was running a fever she states around 100.6. Home care nurse took a look at her right lower extremity Achilles wound and this was the first time dressing had been changed since debridement on 05/20/2023. She states she's had a yellow drainage from the right groin. Patient states no fever, or body aches at this time. Denies any shortness of breath, chest pain, abdominal pain, nausea or vomiting. Review of Systems A 14 point review systems was completed all pertinent positives and negatives as stated in the HPI. Past Medical History Past Medical History: Coronary Artery Disease (CAD), Diabetes Mellitus, Deep Vein Thrombosis (DVT), Vascular Disorder Additional Past Medical History / Comment(s): SKIN CA. 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, NEUROPATHY LEGS & FEET, USING WALKER, .Mutiple DVT,mesentaric thrombosis x2 & PE, PAD, chronic pain syndrome, ddd lumbar region w/radiculopathy, HISTORY OF FALL 01/07/20 , tore rt rotator cuff, pancreatitis, fatty liver, Last Myocardial Infarction Date:: 2010 History of Any Multi-Drug Resistant Organisms: None Reported Past Surgical History: Section, Cholecystectomy, Heart Catheterization, Heart Catheterization With Stent, Orthopedic Surgery, Tonsillectomy, Tubal Ligation Additional Past Surgical History / Comment(s): 11 Stents in left leg, fistula left thigh, full mouth teeth extraction, TRAPEASE VENA CAVA FILTER, carpel tunnel, heart stents x4 rca and lad, tumor removal from uterus. Genital warts removed, INGRID. Skin cancer removed from neck, rt great toe amputated, colonoscopy, rt rotator, left shoulder replacement, cervial fusion, rt calf debridement, rt calf skin graft (May 2023) Past Anesthesia/Blood Transfusion Reactions: No Reported Reaction Date of Last Stent Placement:: Mar 2023 Past Psychological History: Anxiety, Depression Additional Psychological History / Comment(s): Depression r/t health issues. Smoking Status: Current every day smoker Past Alcohol Use History: None Reported Additional Past Alcohol Use History / Comment(s): STARTED SMOKING IN 1988 SMOKES 1/2 PPD Past Drug Use History: None Reported - Past Family History Mother Family Medical History: Cancer, Congestive Heart Failure (CHF), Diabetes Me llitus, Myocardial Infarction (ID) Additional Family Medical History / Comment(s): UTERINE CANCER Father Family Medical History: Coronary Artery Disease (CAD), Myocardial Infarction (ID) Additional Family Medical History / Comment(s): Father at age 70. Sister(s) Family Medical History: Myocardial Infarction (ID) Additional Family Medical History / Comment(s): Patient has one sister with myocardial infarction at age 55. Son(s) Family Medical History: Deep Vein Thrombosis (DVT), Pulmonary Embolus Additional Family Medical History / Comment(s): Patient has 2 sons and one has history of DVT and pulmonary embolism. Medications and Allergies Home Medications Medication Instructions Recorded Confirmed Type Docusate [Colace] 100 mg PO DAILY 11/14/21 05/28/23 History Cyclobenzaprine [Flexeril] 5 mg PO HS PRN 09/06/22 05/28/23 History DULoxetine HCL [Cymbalta] 60 mg PO DAILY 09/06/22 05/28/23 History Ferrous Sulfate [Feosol] 325 mg PO BID 01/08/23 05/28/23 History Rosuvastatin [Crestor] 20 mg PO DAILY 01/08/23 05/28/23 History Ergocalciferol (Vitamin D2) 1,250 mcg PO GUERRERO 04/01/23 05/28/23 History [Drisdol (50,000 Iu)] Melatonin 3 mg PO HS 04/01/23 05/28/23 History Nitroglycerin Sl Tabs [Nitrostat] 0.4 mg SL Q5M PRN 04/01/23 05/28/23 History Omeprazole [PriLOSEC] 20 mg PO DAILY 04/01/23 05/28/23 History Metoprolol Tartrate [Lopressor] 25 mg PO BID #60 tab 04/15/23 05/28/23 Rx lisinopriL [Zestril] 5 mg PO DAILY #30 tab 04/15/23 05/28/23 Rx Potassium Chloride ER [K-Dur 10] 10 meq PO BID 04/22/23 05/28/23 History Gabapentin [Neurontin] 400 mg PO TID #9 cap 05/02/23 05/28/23 Rx HYDROcodone/APAP 7.5-325MG [[place] 1 tab PO QID PRN #12 tab 05/02/23 05/28/23 Rx 7.5-325] INSULIN LISPRO (HumaLOG) [humaLOG] 10 units SQ AC-TID 05/10/23 05/28/23 History INSULIN LISPRO (HumaLOG) [humaLOG] See Protocol SQ AC-TID 05/10/23 05/28/23 History Insulin Glargine,Hum.rec.anlog 34 units SQ HS 05/10/23 05/28/23 History [Lantus Solostar Pen] Collagenase [Santyl Ointment] 1 applic TOPICAL DAILY each 05/18/23 05/28/23 Rx Apixaban [Eliquis] 5 mg PO BID 05/20/23 05/28/23 History Clopidogrel [Plavix] 75 mg PO DAILY 05/20/23 05/28/23 History Dapagliflozin Propanediol [Farxiga] 10 mg PO DAILY 05/20/23 05/28/23 History traMADol HCL 50 mg PO DAILY 05/20/23 05/28/23 History Allergies Allergy/AdvReac Type Severity Reaction Status Date / Time vancomycin Allergy Rash/Hives/and Verified 05/28/23 19:04 vomiting diarrhea/Swelling Surgical - Exam Vital Signs Temp Pulse Resp BP Pulse Ox 101.1 F H 81 18 104/65 98 05/28/23 15:51 05/28/23 15:51 05/28/23 15:51 05/28/23 15:51 05/28/23 15:51 General appearance: The patient is alert, oriented, appears in no acute distress. HET: Head is normocephalic and atraumatic. Pupils are equal and reactive. Neck: Supple. Heart: Regular. Lungs: Equal expansion, normal respiratory effort. Abdomen: Soft, nontender, nondistended. Extremities: Right groin wound approximately 6 cm x 2 cm, yellow drainage. Right lower extremity warm to the touch with good capillary refill, second, third, and fourth toe with dry gangrene to distal tip. Wound with skin graft to posterior aspect of right lower extremity along the Achilles with tendon exposure, eschar with surrounding erythema, thick foul smelling drainage. Nonpalpable bypass graft, popliteal and PT Doppler signal present. Neurological: No focal deficits. Strength and sensation are grossly intact. Results - Labs 05/29/23 10:24 05/29/23 10:24 Abnormal Lab Results - Last 24 Hours (Table) 05/28/23 05/28/23 05/28/23 Range/Units 15:57 15:58 15:58 WBC 13.4 H (3.8-10.6) k/uL RDW 17.6 H (11.5-15.5) % Neutrophils # 10.5 H (1.3-7.7) k/uL Sodium 134 L (137-145) mmol/L Potassium 2.8 L (3.5-5.1) mmol/L Chloride 89 L (98-107) mmol/L Carbon Dioxide 31 H (22-30) mmol/L BUN 5 L (7-17) mg/dL Glucose 134 H (74-99) mg/dL POC Glucose (mg/dL) (70-110) mg/dL Plasma Lactic Acid Mynor 4.6 H* (0.7-2.0) mmol/L Calcium 7.6 L (8.4-10.2) mg/dL Alkaline Phosphatase 160 H (38-126) U/L Albumin 2.9 L (3.5-5.0) g/dL 05/28/23 Range/Units 20:51 WBC (3.8-10.6) k/uL RDW (11.5-15.5) % Neutrophils # (1.3-7.7) k/uL Sodium (137-145) mmol/L Potassium (3.5-5.1) mmol/L Chloride (98-107) mmol/L Carbon Dioxide (22-30) mmol/L BUN (7-17) mg/dL Glucose (74-99) mg/dL POC Glucose (mg/dL) 127 H (70-110) mg/dL Plasma Lactic Acid Mynor (0.7-2.0) mmol/L Calcium (8.4-10.2) mg/dL Alkaline Phosphatase (38-126) U/L Albumin (3.5-5.0) g/dL Diabetes panel 05/28/23 Range/Units 15:57 Sodium 134 L (137-145) mmol/L Potassium 2.8 L (3.5-5.1) mmol/L Chloride 89 L (98-107) mmol/L Carbon Dioxide 31 H (22-30) mmol/L BUN 5 L (7-17) mg/dL Creatinine 0.84 (0.52-1.04) mg/dL Glucose 134 H (74-99) mg/dL Calcium 7.6 L (8.4-10.2) mg/dL AST 28 (14-36) U/L ALT 17 (4-34) U/L Alkaline Phosphatase 160 H (38-126) U/L Total Protein 6.6 (6.3-8.2) g/dL Albumin 2.9 L (3.5-5.0) g/dL Calcium panel 05/28/23 Range/Units 15:57 Calcium 7.6 L (8.4-10.2) mg/dL Albumin 2.9 L (3.5-5.0) g/dL Pituitary panel 05/28/23 Range/Units 15:57 Sodium 134 L (137-145) mmol/L Potassium 2.8 L (3.5-5.1) mmol/L Chloride 89 L (98-107) mmol/L Carbon Dioxide 31 H (22-30) mmol/L BUN 5 L (7-17) mg/dL Creatinine 0.84 (0.52-1.04) mg/dL Glucose 134 H (74-99) mg/dL Calcium 7.6 L (8.4-10.2) mg/dL Adrenal panel 05/28/23 Range/Units 15:57 Sodium 134 L (137-145) mmol/L Potassium 2.8 L (3.5-5.1) mmol/L Chloride 89 L (98-107) mmol/L Carbon Dioxide 31 H (22-30) mmol/L BUN 5 L (7-17) mg/dL Creatinine 0.84 (0.52-1.04) mg/dL Glucose 134 H (74-99) mg/dL Calcium 7.6 L (8.4-10.2) mg/dL Total Bilirubin 0.7 (0.2-1.3) mg/dL AST 28 (14-36) U/L ALT 17 (4-34) U/L Alkaline Phosphatase 160 H (38-126) U/L Total Protein 6.6 (6.3-8.2) g/dL Albumin 2.9 L (3.5-5.0) g/dL - Imaging Comments: Right tibia-fibula x-ray report subcutaneous lucencies posterior distal right leg. Correlate clinically. Soft tissue swelling is present. Findings could be compatible with cellulitis. Assessment and Plan Assessment: 1. Right lower extremity infected wound 2. Right groin wound status post hematoma evacuation 3. Hypokalemia 4. 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 Occluded right fem-tib bypass 6. History of left external iliac artery occlusion 7. Coronary artery disease status post stenting mid RCA 04/04/2023 8. History of DVTs 9. Diabetes mellitus 10. History CVA Plan: 1. Nothing by mouth after midnight 2. Hold Eliquis 3. Repeat electrolytes tomorrow 4. Type and screen ordered 5. Patient scheduled for right lower extremity debridement with deep tissue cultures 6. Continue antibiotics per recommendations from infectious disease 7. Consult wound care for right groin wound Thank you for this consultation, we will continue to follow The impression and plan of care has been dictated as directed. I performed a history and examination of this patient, discussed the same with the dictator. I agree with the dictator's note ,documented as a scribe. Any ad ditional findings or plans will be noted.
[2023-05-29] MEDS: ACETAMINOPHEN TAB 325 MG TAB PO PRN (14:31)
--- NOTE | 2023-05-29 16:24 | P.HPIM ---
History of Present Illness H&P Date: 05/28/23 Chief Complaint: Infected right achilles skin graft with sepsis HISTORY OF PRESENT ILLNESS This is a 63-year-old female patient of mine with history of CAD with multiple cardiac stents in mid RCA, mid LAD, obtuse marginal branch and followed by Dr. Bill closely, peripheral artery disease with previous stenting done as well has amputation of the right great toe secondary to osteomyelitis, CVA with no residual deficits, hypertension, COPD, diabetes mellitus type 2, previous multiple DVT and PE requiring chronic anticoagulation on eliquis, history of GI bleed secondary to antral gastritis, esophagitis, vitamin D deficiency, autonomic hypotension on midodrine, history of left humerus fracture. resume with patient April 02 through April 15 at which time she presented to the hospital due to right second and fifth toe ischemic change. A CT angiogram showed evidence of occlusion of the right superficial femoral artery and 2 occl uded segments 1 in the mid thigh about 3 cm and another into the right popliteal artery at 13 cm length, occlusion of the right iliac artery into the common femoral artery. Patient was seen in consultation by vascular surgery. Arterial ultrasound showed lower extremity abnormal on the right with HERMINIA suggests severe atherosclerotic disease. Critical stenosis not excluded. Plan for open bypass surgery with vascular surgery was made but a cardiology consult was requested. Patient was seen by Dr. Bill and had chest pain complaint and Due to critical in-stent restenosis and subsequently underwent cardiac catheterization which revealed critical in-stent restenosis of the RCA and Dr. Bill present performed stenting of the RCA. There was also intermediate disease in the first obtuse marginal branch of the left circumflex, intermediate disease involving the LAD and mildly elevated left sided filling pressures. Access was obtained from the right groin. Unfortunately following removal of the sheath, patient developed a significant hematoma to the right groin into the right pelvic area measuring up to 11.9 cm requiring ICU management, transfusion of packed RBCs and vasopressors for brief period along with IV fluid resuscitation. Patient was stabilized and discharged to home with home care but she returned with worsening wounds, hypotension with blood pressure of 84/57, leukocytosis of 26. She was seen by multiple consultants including wound care, infectious disease, vascular surgery. Patient underwent right common femoral to tibial vein bypass with debridement of a right exposed Achilles tendon heel, second third and fourth toes of the right foot and drainage of right inguinal hematoma with wound VAC with subsequent hematoma evacuation on 04/30. Patient was stabilized and discharged to [facility] for subacute rehab. She returned to the emergency department about few weeks back and she was diagnosed with acute pancreatitis and she was taken off of her [facility] she was discharged home because she refused to go back to [facility] and she recently underwent a skin grat to the right achilles lower leg area that was done by Umair Tejeda was Saturday before yesterday and carin was discharged home in a stable condition with a follow up last Saturday and then last and had the home care nurse coming for dressing changes and she was found to have black eschar on the back of her leg with purulent material coming out of her leg and right gron with a split wound where the LITO was and she appeared to have sepsis , she was started on IV Cefepime after obtaining blood cultures and wound cultures and she was admitted to the Hospital with vacular surgery consult along with ID consult REVIEW OF SYSTEMS Constitutional: positive for fever, No chills, no night sweats. Reports weight loss. Reports weakness, Reports fatigue no lethargy. NO daytime sleepiness. HEENT: No headache. No dizziness. Reports difficulty swallowing. No nasal drainage or congestion. No epistaxis. No sore throat. Lungs: No shortness of breath, cough, no sputum production. No wheezing. Cardiovascular: No chest pain, no lower extremity edema. No palpitations. No paroxysmal nocturnal dyspnea. No orthopnea. No lightheadedness or dizziness. No syncopal episodes. Abdominal: Reports abdominal pain. Reports nausea, no vomiting. no diarrhea. No constipation. No bloody or tarry stools. Reports loss of appetite. Genitourinary: No dysuria, increased frequency, urgency. No urinary retention. Musculoskeletal: No myalgias. positive for muscle weakness, reports balance issues, reports gait dysfunction, reports frequent falls. No back pain. No neck pain. Integumentary: Left achilles with a black eschar and purulent drainaige and right groin with open wound, Right 2nd, 3rd and 5th toes and right big toe amputation Neurologic: No aphasia. No facial droop. No change in mentation. No head injury. No headache. No paralysis. No paresthesia. Psychiatric: Reports depression. Reports anxiety. No mood swings. Endocrine: abnormal blood sugars. positive for weight change. No excessive sweating or thirst. No cold intolerance. MEDICAL HISTORY Coronary artery disease with multiple cardiac stents in the RCA, mid LAD, obtuse marginal branch Peripheral artery disease with previous stenting Right great toe osteomyelitis status post amputation CVA with no residual deficits Hypertension Hyperlipidemia COPD Diabetes mellitus type 2 Multiple DVT and PE on chronic anticoagulation History of GI bleed secondary to antral gastritis and esophagitis Vitamin D deficiency Orthostatic hypotension SURGICAL HISTORY Cholecystectomy Tonsillectomy Tubal ligation 11 stents in the left leg Full teeth extraction Trapeze vena cava filter Carpal tunnel release Coronary artery stents 4 to the RCA, LAD, obtuse marginal Tumor removed from the uterus will INGRID Skin cancer removal from the neck Right great toe amputation Colonoscopy and EGD I&D right groin abscess Anterior approach cervical disc fusion. SOCIAL HISTORY Patient is a smoker of about half a pack per day since 1993 and quit prior to her cervical surgery. No alcohol use, illicit drug use. Patient lives at home with her . FAMILY HISTORY Mother has history of uterine cancer, diabetes, myocardial infarction, heart failure. Father at age 70 from myocardial infarction. Patient has one sister and she had a myocardial infarction at age 55. Patient has 2 sons and one has history of DVT and pulmonary embolism. PHYSICAL EXAMINATION Gen: This is a 63-year-old female. She is resting on ER bed and ap pears to be in no acute distress. HEENT: Head is atraumatic, normocephalic. Pupils equal, round. Sclerae is anicteric. Mucous members of the mouth are somewhat dry. NECK: Supple. No JVD. No lymphadenopathy. No thyromegaly. LUNGS: Clear to auscultation. No wheezes or rhonchi. No intercostal retr actions. 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 ABDOMEN: Soft. Bowel sounds are present. No masses. no tenderness. Large hematoma to right pelvis soft, surrounding and dependent ecchymosis. EXTREMITIES: No pedal edema. Right big toe amputation, right 2nd, 3rd, and 5th toe amputaions, right achilles with balck eschar and non viable skin graft. NEUROLOGICAL: Patient is awake, alert and oriented x3. Cranial nerves 2 through 12 are grossly intact. Muscle power 4/5 in the left upper extremity, 4/5 in the right upper extremity, 3/5 in the bilateral lower extremities. DTRs are depressed bilaterally. Neuropathic changes in both feet. ASSESSMENT AND PLAN 1. Right leg infected/failed graft with sepsis. blood cultures, wound cultures and we will start Cefepime 3 gr IVPB Q 8 hours, ID consult, we will continue with IVF and we will repeat Lactic acid in 6 hours.we will consult vascular surgery 2. Recent right common femoral to tibial vein bypass with debridement of the right exposed Achilles tendon heel second third and fifth toes of the right foot, also drainage of the right inguinal hematoma post removal of the LITO drain with a split wound in the right groin, we will continue with current treatment as in [place] #1 consult vascular surgery 3. Coronary artery disease with recent stent of the RCA due to recent in-stent restenosis. Patient has had previous multiple cardiac stents to the RCA and mid LAD, obtuse marginal branch. Continue patient on Plavix 75 mg daily, Lopressor 25 mg twice daily, Crestor 20 mg daily. 4. Diabetes mellitus type 2 uncontrolled with hyperglycemia. Continue NovoLog scale before meals and at bedtime. Patient will be started back on Lantus 34 units at bedtime.and we will continue with Novolog 10 units AC meals TID 5. Hyperlipidemia. Continue Atorvastatin 40 mg po daily 6. Chronic DVT and PEs. Continue patient on eliquis 5 mg twice daily. 7. Chronic anemia with recent acute blood loss anemia secondary to hematoma in the right groin/pelvis. Continue patient on ferrous sulfate 325 mg twice daily. 8. Hypertension and hypertensive cardiovascular disease, Continue lisinopril 5 mg daily, Lopressor 25 mg twice daily. 9. Gastroesophageal reflux disease and GI prophylaxis. Continue Pantoprazole 40 mg daily. 10. Diabetic neuropathy. w will continue wit Gabapentin 400 mg po tid. 11. Generalized anxiety disorder, recurrent depression. Continue Cymbalta 60 mg daily. 12. Patient diagnosed with EPI at [facility]. 13. Admits to inpatient . estimate length of stay 2 midnights. 14. Full code. Past Medical History Past Medical History: Diabetes Mellitus, Deep Vein Thrombosis (DVT) Additional Past Medical History / Comment(s): SKIN CA. 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, PAD, chronic pain syndrome, ddd lumbar region w/radiculopathy, HISTORY OF FALL 6/4/20 , tore rt rotator cuff, pancreatitis, fatty liver, Last Myocardial Infarction Date:: 2010 History of Any Multi-Drug Resistant Organisms: None Reported Past Surgical History: Section, Cholecystectomy, Heart Catheterization, Heart Catheterization With Stent, Orthopedic Surgery, Tonsillectomy, Tubal Ligation Additional Past Surgical History / Comment(s): 11 Stents in left leg, fistula left thigh, full mouth teeth extraction, TRAPEASE VENA CAVA FILTER, carpel tunnel, heart stents x4 rca and lad, tumor removal from uterus. Genital warts removed, INGRID. Skin cancer removed from neck, rt great toe amputated, colonoscopy, rt rotator, left shoulder replacement, cervial fusion Past Anesthesia/Blood Transfusion Reactions: No Reported Reaction Date of Last Stent Placement:: May 2016 Past Psychological History: Anxiety, Depression Smoking Status: Light tobacco smoker Past Alcohol Use History: None Reported Past Drug Use History: None Reported - Past Family History Mother Family Medical History: Cancer, Congestive Heart Failure (CHF), Diabetes Mellitus, Myocardial Infarction ([place]) Additional Family Medical History / Comment(s): UTERINE CANCER Father Family Medical History: Coronary Artery Disease (CAD), Myocardial Infarction ([place]) Additional Family Medical History / Comment(s): Father at age 70. Sister(s) Family Medical History: Myocardial Infarction ([place]) Additional Family Medical History / Comment(s): Patient has one sister with m yocardial infarction at age 55. Son(s) Family Medical History: Deep Vein Thrombosis (DVT), Pulmonary Embolus Additional Family Medical History / Comment(s): Patient has 2 sons and one has history of DVT and pulmonary embolism. Medications and Allergies Home Medications Medication Instructions Recorded Confirmed Type Docusate [Colace] 100 mg PO DAILY 11/14/21 05/28/23 History Cyclobenzaprine [Flexeril] 5 mg PO HS PRN 09/06/22 05/28/23 History DULoxetine HCL [Cymbalta] 60 mg PO DAILY 09/06/22 05/28/23 History Ferrous Sulfate [Feosol] 325 mg PO BID 01/08/23 05/28/23 History Rosuvastatin [Crestor] 20 mg PO DAILY 01/08/23 05/28/23 History Ergocalciferol (Vitamin D2) 1,250 mcg PO GUERRERO 04/01/23 05/28/23 History [Drisdol (50,000 Iu)] Melatonin 3 mg PO HS 04/01/23 05/28/23 History Nitroglycerin Sl Tabs [Nitrostat] 0.4 mg SL Q5M PRN 04/01/23 05/28/23 History Omeprazole [PriLOSEC] 20 mg PO DAILY 04/01/23 05/28/23 History Metoprolol Tartrate [Lopressor] 25 mg PO BID #60 tab 04/15/23 05/28/23 Rx lisinopriL [Zestril] 5 mg PO DAILY #30 tab 04/15/23 05/28/23 Rx Potassium Chloride ER [K-Dur 10] 10 meq PO BID 04/22/23 05/28/23 History Gabapentin [Neurontin] 400 mg PO TID #9 cap 05/02/23 05/28/23 Rx HYDROcodone/APAP 7.5-325MG [[place] 1 tab PO QID PRN #12 tab 05/02/23 05/28/23 Rx 7.5-325] INSULIN LISPRO (HumaLOG) [humaLOG] 10 units SQ AC-TID 05/10/23 05/28/23 History INSULIN LISPRO (HumaLOG) [humaLOG] See Protocol SQ AC-TID 05/10/23 05/28/23 History Insulin Glargine,Hum.rec.anlog 34 units SQ HS 05/10/23 05/28/23 History [Lantus Solostar Pen] Collagenase [Santyl Ointment] 1 applic TOPICAL DAILY each 05/18/23 05/28/23 Rx Apixaban [Eliquis] 5 mg PO BID 05/20/23 05/28/23 History Clopidogrel [Plavix] 75 mg PO DAILY 05/20/23 05/28/23 History Dapagliflozin Propanediol [Farxiga] 10 mg PO DAILY 05/20/23 05/28/23 History traMADol HCL 50 mg PO DAILY 05/20/23 05/28/23 History Allergies Allergy/AdvReac Type Severity Reaction Status Date / Time vancomycin Allergy Rash/Hives/and Verified 05/28/23 19:04 vomiting diarrhea/Swelling Physical Exam Vitals: Vital Signs Temp Pulse Resp BP Pulse Ox 05/28/23 18:20 100.6 F H 89 18 99 05/28/23 17:50 89 18 101/65 98 05/28/23 15:51 101.1 F H 81 18 104/65 98 Intake and Output 05/28/23 05/28/23 05/28/23 06:59 14:59 22:59 Other: Weight 93.44 kg Results CBC & Chem 7: 05/29/23 10:24 05/29/23 10:24 Labs: Abnormal Lab Results - Last 24 Hours (Table) 05/28/23 05/28/23 05/28/23 Range/Units 15:57 15:58 15:58 WBC 13.4 H (3.8-10.6) k/uL RDW 17.6 H (11.5-15.5) % Neutrophils # 10.5 H (1.3-7.7) k/uL Sodium 134 L (137-145) mmol/L Potassium 2.8 L (3.5-5.1) mmol/L Chloride 89 L (98-107) mmol/L Carbon Dioxide 31 H (22-30) mmol/L BUN 5 L (7-17) mg/dL Glucose 134 H (74-99) mg/dL Plasma Lactic Acid Mynor 4.6 H* (0.7-2.0) mmol/L Calcium 7.6 L (8.4-10.2) mg/dL Alkaline Phosphatase 160 H (38-126) U/L Albumin 2.9 L (3.5-5.0) g/dL
[2023-05-29 16:41] LABS: Glucose,Whole Blood 223 mg/dL (70-110)
[2023-05-29] MEDS: HYDROcodone/APAP 7.5-325MG 1 EACH TAB PO PRN ×2 (17:28→23:59)
[2023-05-29 20:21] LABS: Glucose,Whole Blood 264 mg/dL (70-110)
[2023-05-29] MEDS: MELATONIN 3 MG TABLET PO SCH (21:00)
[2023-05-29] MEDS: INSULIN DETEMIR (LEVEMIR) 100 UNIT/ML SYR SQ SCH (21:01)
--- NOTE | 2023-05-29 21:44 | P.CONS ---
History of Present Illness - Reason for Consult Consult date: 05/29/23 Groin and leg wound, sepsis Requesting physician: Evert oHdges - Chief Complaint Worsening pain and to the right lower extremity x few days - History of Present Illness Patient is a 63-year-old female with a past medical history significant for diabetes mellitus peripheral arterial disease coronary disease patient did have PAD and bypass graft with CryoVein right common thromboendarterectomy and right groin hematoma evacuation as well as right Achilles wound debridement and skin graft application patient has been sent to the ER by the home care nurse concerning for infection of the right lower extremity patient mention has been running fever for the last day and 2 patient has been complaining of pain to the right lower extremity wound area describing it to be sharp intense and almost out of 10 without any radiation and did have foul-smelling drainage from her wound with a similar the patient presented to hospital on arrival to the ER patient did have a fever of 101 F patient was not tachycardic or hypotensive did have white count 13.4 with a left shift creatinine 0.84 liver enzymes are normal wound culture has been obtained which are currently pending patient was started on cefepime received a dose of clindamycin infectious disease was consulted for further management of antibiotic therapy Review of Systems Positive point and negatives has been mentioned in the HPI, complete review of systems was performed and all other systems are negative Past Medical History Past Medical History: Coronary Artery Disease (CAD), Diabetes Mellitus, Deep Vein Thrombosis (DVT), Vascular Disorder Additional Past Medical History / Comment(s): SKIN CA. 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, NEUROPATHY LEGS & FEET, USING WALKER, .Mutiple DVT,mesentaric thrombosis x2 & PE, PAD, chronic pain syndrome, ddd lumbar region w/radiculopathy, HISTORY OF FALL 01/07/20 , tore rt rotator cuff, pancreatitis, fatty liver, Last Myocardial Infarction Date:: 2010 History of Any Multi-Drug Resistant Organisms: None Reported Past Surgical History: Section, Cholecystectomy, Heart Catheterization, Heart Catheterization With Stent, Orthopedic Surgery, Tonsillectomy, Tubal Ligation Additional Past Surgical History / Comment(s): 11 Stents in left leg, fistula left thigh, full mouth teeth extraction, TRAPEASE VENA CAVA FILTER, carpel tunnel, heart stents x4 rca and lad, tumor removal from uterus. Genital warts removed, INGRID. Skin cancer removed from neck, rt great toe amputated, colonoscopy, rt rotator, left shoulder replacement, cervial fusion, rt calf debridement, rt calf skin graft (May 2023) Past Anesthesia/Blood Transfusion Reactions: No Reported Reaction Date of Last Stent Placement:: Mar 2023 Past Psychological History: Anxiety, Depression Additional Psychological History / Comment(s): Depression r/t health issues. Smoking Status: Current every day smoker Past Alcohol Use History: None Reported Additional Past Alcohol Use History / Comment(s): STARTED SMOKING IN 1988 SMOKES 1/2 PPD Past Drug Use History: None Reported - Past Family History Mother Family Medical History: Cancer, Congestive Heart Failure (CHF), Diabetes Mellitus, Myocardial Infarction ([place]) Additional Family Medical History / Comment(s): UTERINE CANCER Father Family Medical History: Coronary Artery Disease (CAD), Myocardial Infarction ([place]) Additional Family Medical History / Comment(s): Father at age 70. Sister(s) Family Medical History: Myocardial Infarction ([place]) Additional Family Medical History / Comment(s): Patient has one sister with myocardial infarction at age 55. Son(s) Family Medical History: Deep Vein Thrombosis (DVT), Pulmonary Embolus Additional Family Medical History / Comment(s): Patient has 2 sons and one has history of DVT and pulmonary embolism. Medications and Allergies Home Medications Medication Instructions Recorded Confirmed Type Docusate [Colace] 100 mg PO DAILY 11/14/21 05/28/23 History Rosuvastatin [Crestor] 20 mg PO DAILY 01/08/23 05/28/23 History Ergocalciferol (Vitamin D2) 1,250 mcg PO GUERRERO 04/01/23 05/28/23 History [Drisdol (50,000 Iu)] Melatonin 3 mg PO HS 04/01/23 05/28/23 History Nitroglycerin Sl Tabs [Nitrostat] 0.4 mg SL Q5M PRN 04/01/23 05/28/23 History Omeprazole [PriLOSEC] 20 mg PO DAILY 04/01/23 05/28/23 History Metoprolol Tartrate [Lopressor] 25 mg PO BID #60 tab 04/15/23 05/28/23 Rx Potassium Chloride ER [K-Dur 10] 10 meq PO BID 04/22/23 05/28/23 History Gabapentin [Neurontin] 400 mg PO TID #9 cap 05/02/23 05/28/23 Rx Collagenase [Santyl Ointment] 1 applic TOPICAL DAILY each 05/18/23 05/28/23 Rx Apixaban [Eliquis] 5 mg PO BID 05/20/23 05/28/23 History Clopidogrel [Plavix] 75 mg PO DAILY 05/20/23 05/28/23 History Dapagliflozin Propanediol [Farxiga] 10 mg PO DAILY 05/20/23 05/28/23 History Ferrous Sulfate [Feosol] 325 mg PO BID #60 tab 06/10/23 Rx HYDROcodone/APAP 7.5-325MG [[place] 1 each PO Q4-6H PRN 3 Days #18 tab 06/12/23 Rx 7.5-325] ALPRAZolam [Xanax] 0.25 mg PO BID PRN tab 06/14/23 Rx DULoxetine HCL [Cymbalta] 60 mg PO BID cap 06/14/23 Rx INSULIN ASPART (NovoLOG) [NovoLOG 0 unit SQ ACHS each 06/14/23 Rx (formulary)] Insulin Glargine,Hum.rec.anlog 15 units SQ HS #0 06/14/23 05/28/23 Rx [Lantus Solostar Pen] Ipratropium-Albuterol Nebulize 3 ml INHALATION RT-Q6H PRN each 06/14/23 Rx [Duoneb 0.5 mg-3 mg/3 ml Soln] lisinopriL [Zestril] 10 mg PO DAILY tab 06/14/23 Rx Allergies Allergy/AdvReac Type Severity Reaction Status Date / Time vancomycin Allergy Rash/Hives/and Verified 06/07/23 09:44 vomiting diarrhea/Swelling Physical Exam Vitals: Vital Signs Temp Pulse Pulse Resp BP BP Pulse Ox 05/29/23 08:00 98.6 F 77 16 149/85 94 L 05/29/23 04:00 98.8 F 71 14 140/81 96 05/29/23 02:00 72 20 05/29/23 00:30 98.6 F 72 20 139/83 97 05/28/23 20:30 99 F 81 18 119/65 98 05/28/23 20:24 98.2 F 80 18 100/50 96 05/28/23 18:20 100.6 F H 89 18 99 05/28/23 17:50 89 18 101/65 98 05/28/23 15:51 101.1 F H 81 18 104/65 98 Intake and Output 05/28/23 05/29/23 05/29/23 22:59 06:59 14:59 Intake Total 480 Output Total 900 900 Balance -900 -420 Intake: Oral 480 Output: Urine 900 900 Other: Voiding Method External Catheter External Catheter External Catheter Weight 93.44 kg GENERAL DESCRIPTION: Middle-age female lying in bed, no distress. No tachypnea or accessory muscle of respiration use. HEENT: Shows Pallor , no scleral icterus. Oral mucous membrane is dry. No pha ryngeal erythema or thrush NECK: Trachea central, no thyromegaly. LUNGS: Unlabored breathing. Clear to auscultation anteriorly. No wheeze or crackle. HEART: S1, S2, regular rate and rhythm. No loud murmur ABDOMEN: Soft, no tenderness , guarding or rigidity, no organomegaly EXTREMITIES: Wound with skin graft to posterior aspect of right lower extremity along the Achilles with tendon exposure, eschar with surrounding erythema, thick foul smelling drainage SKIN: No rash, no masses palpable. NEUROLOGICAL: The patient is awake, alert, oriented x3, mood and affect normal. Results CBC & Chem 7: 06/10/23 08:07 06/11/23 07:54 Labs: Abnormal Lab Results - Last 24 Hours (Table) 05/28/23 05/28/23 05/28/23 Range/Units 15:57 15:58 15:58 WBC 13.4 H (3.8-10.6) k/uL RDW 17.6 H (11.5-15.5) % Neutrophils # 10.5 H (1.3-7.7) k/uL Sodium 134 L (137-145) mmol/L Potassium 2.8 L (3.5-5.1) mmol/L Chloride 89 L (98-107) mmol/L Carbon Dioxide 31 H (22-30) mmol/L BUN 5 L (7-17) mg/dL Glucose 134 H (74-99) mg/dL POC Glucose (mg/dL) (70-110) mg/dL Plasma Lactic Acid Mynor 4.6 H* (0.7-2.0) mmol/L Calcium 7.6 L (8.4-10.2) mg/dL Alkaline Phosphatase 160 H (38-126) U/L Albumin 2.9 L (3.5-5.0) g/dL 05/28/23 Range/Units 20:51 WBC (3.8-10.6) k/uL RDW (11.5-15.5) % Neutrophils # (1.3-7.7) k/uL Sodium (137-145) mmol/L Potassium (3.5-5.1) mmol/L Chloride (98-107) mmol/L Carbon Dioxide (22-30) mmol/L BUN (7-17) mg/dL Glucose (74-99) mg/dL POC Glucose (mg/dL) 127 H (70-110) mg/dL Plasma Lactic Acid Mynor (0.7-2.0) mmol/L Calcium (8.4-10.2) mg/dL Alkaline Phosphatase (38-126) U/L Albumin (3.5-5.0) g/dL Assessment and Plan (1) Cellulitis of right leg Current Visit: Yes Status: Acute Code(s): L03.115 - CELLULITIS OF RIGHT LOWER LIMB SNOMED Code(s): 34665691475574887 (2) Leg wound, right Current Visit: Yes Status: Acute Code(s): S81.801A - UNSPECIFIED OPEN WOUND, RIGHT LOWER LEG, INITIAL ENCOUNTER SNOMED Code(s): 120628146 (3) Sepsis Current Visit: No Status: Acute Code(s): A41.9 - SEPSIS, UNSPECIFIED ORGANISM SNOMED Code(s): 96839672 Plan: 1patient presented to hospital with sepsis in this patient with a fever elevated white count source likely her right lower extremity infected wound and second cellulitis likely from gram-positive skin jesus however the patient recently has grown Pseudomonas from the area could be related to the same pathogen. 2patient did have a vancomycin allergy through limit the number of antibiotics safe to use. 3we will continue the patient on cefepime 2 should be adjusted every 8 hours. 4we will start patient on daptomycin 4 mg/kg every 24 hours Await surgical debridement and deep culture. We will follow on clinical condition and cultures to further adjust medication if needed Thank you for this consultation we will follow the patient along with you Dictation was produced using [employer] [facility] dictation software. please excuse any grammatical, word or spelling errors. Time with Patient: Greater than 30
[2023-05-30] MEDS: CEFEPIME 2 GM in SODIUM CHLORIDE 0.9% 100 ML IVPB SCH ×3 (00:57→19:32)
[2023-05-30 06:37] LABS: Glucose,Whole Blood 93 mg/dL (70-110)
[2023-05-30] MEDS: SODIUM CHLORIDE 0.9% 1,000 ML IV SCH ×2 (06:39→21:10)
[2023-05-30] MEDS: INSULIN ASPART (NovoLOG) 100 UNIT/ML VIAL SQ SCH ×2 (06:40→17:41)
[2023-05-30] MEDS: HYDROmorphone 1 MG/ML 1 ML SYRINGE IVP PRN ×5 (06:42→23:38)
[2023-05-30 07:49] LABS: Anisocytosis Slight; HCT 31.3 % (34.0-46.0); HGB 9.8 gm/dL (11.4-16.0); Hypochromasia Marked; MCH 26.9 pg (25.0-35.0); MCHC 31.3 g/dL (31.0-37.0); MCV 86.2 fL (80.0-100.0); Platelet Count 234 k/uL (150-450); Poikilocytosis Slight; RBC 3.64 m/uL (3.80-5.40); RDW 17.6 % (11.5-15.5); WBC 10.3 k/uL (3.8-10.6)
[2023-05-30 08:27] LABS: ALT 12 U/L (4-34); AST 21 U/L (14-36); African American GFR (CKD) >90 (>60 ml/min/1.73 sqM); Albumin 2.2 g/dL (3.5-5.0); Alkaline Phosphatase 128 U/L (38-126); Anion Gap 8 mmol/L; Blood Urea Nitrogen 7 mg/dL (7-17); Calcium 7.1 mg/dL (8.4-10.2); Carbon Dioxide 26 mmol/L (22-30); Chloride 103 mmol/L (98-107); Glucose 78 mg/dL (74-99); Non-African American GFR(CKD) >90 (>60 ml/min/1.73 sqM); Potassium 3.2 mmol/L (3.5-5.1); Sodium 137 mmol/L (137-145); Total Bilirubin 0.4 mg/dL (0.2-1.3); Total Protein 5.2 g/dL (6.3-8.2)
[2023-05-30] MEDS: lisinopriL 5 MG TAB PO SCH (08:54)
[2023-05-30] MEDS: PANTOPRAZOLE 40 MG TABLET PO SCH (08:54)
[2023-05-30] MEDS: METOPROLOL TARTRATE 25 MG TAB PO SCH ×2 (08:54→21:17)
[2023-05-30] MEDS: GABAPENTIN 400 MG CAP PO SCH ×3 (08:55→21:16)
[2023-05-30] MEDS: DOCUSATE 100 MG CAP PO SCH (08:55)
[2023-05-30] MEDS: HYDROcodone/APAP 7.5-325MG 1 EACH TAB PO PRN ×2 (08:55→21:16)
[2023-05-30] MEDS: FERROUS SULFATE 325 MG TAB PO SCH ×2 (08:55→21:16)
[2023-05-30] MEDS: POTASSIUM CHLORIDE ER 10 MEQ TAB.ER.PRT PO SCH ×2 (08:55→21:16)
[2023-05-30] MEDS: DULoxetine HCL 60 MG CAPSULE.DR PO SCH (08:55)
--- NOTE | 2023-05-30 10:05 | P.CONS ---
History of Present Illness - Reason for Consult Consult date: 05/30/23 wound care - History of Present Illness This is a pleasant 63-year-old female with a past medical history including coronary artery disease status post stenting, diabetes mellitus, DVT, skin cancer, CVA, neuropathy, degenerative disc disease, peripheral arterial disease with femoral occlusion status post fem-tib bypass graft with CryoVein, right common thromboendarterectomy, right groin hematoma status post hematoma evac uation done 04/30/2023, and right Achilles wound status post debridement with skin graft applied. Patient is being seen for the nonhealing ulceration to the right groin. She is undergoing a procedure later today with possible amputation of the right lower extremity. The right great ulceration has 2 ulcerations with significant amount of slough and nonviable tissue present the larger of the ulce rations has undermining and tunneling noted. Minimal granulation noted throughout the wound VAC. Review Of Systems: Constitutional: No fever, no chills, no night sweats. No weight change. No weakness, fatigue or lethargy. No daytime sleepiness. Integumentary:reports wounds, no lesions. No rash or pruritus. No unusual bruising. No change in hair or nails. Physical exam: General Appearance: Alert, cooperative, no distress, appears stated age. Skin: See HPI all other Skin color, texture, tugor normal, no rashes or lesions. Neurologic: Alert oriented x3 Assessment: 1. Nonhealing ulceration right groin with muscle involvement without necrosis 2. Nonhealing ulceration with necrosis of muscle right lower extremity 3. Diabetes a skin ulcer 4. Arteriosclerosis with ulceration right lower extremity Plan: 1.Right groin: Apply santyl, saline moisten gauze, dry gauze and secure with tape. Change daily. She is scheduled in the wound care center on June 06 at 1245 Thank you for the consultation any questions contact the wound care center DNP note has been reviewed and discussed with Dr. Gan and the impression and plan of care has been directed as dictated. Past Medical History Past Medical History: Coronary Artery Disease (CAD), Diabetes Mellitus, Deep Vein Thrombosis (DVT), Vascular Disorder Additional Past Medical History / Comment(s): SKIN CA. 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, NEUROPATHY LEGS & FEET, USING WALKER, .Mutiple DVT,mesentaric thrombosis x2 & PE, PAD, chronic pain syndrome, ddd lumbar region w/radiculopathy, HISTORY OF FALL 01/07/20 , tore rt rotator cuff, pancreatitis, fatty liver, Last Myocardial Infarction Date:: 2010 History of Any Multi-Drug Resistant Organisms: None Reported Past Surgical History: Section, Cholecystectomy, Heart Catheterization, Heart Catheterization With Stent, Orthopedic Surgery, Tonsillectomy, Tubal Ligation Additional Past Surgical History / Comment(s): 11 Stents in left leg, fistula left thigh, full mouth teeth extraction, TRAPEASE VENA CAVA FILTER, carpel tunnel, heart stents x4 rca and lad, tumor removal from uterus. Genital warts removed, INGRID. Skin cancer removed from neck, rt great toe amputated, colonoscopy, rt rotator, left shoulder replacement, cervial fusion, rt calf debridement, rt calf skin graft (May 2023) Past Anesthesia/Blood Transfusion Reactions: No Reported Reaction Date of Last Stent Placement:: Mar 2023 Past Psychological History: Anxiety, Depression Additional Psychological History / Comment(s): Depression r/t health issues. Smoking Status: Current every day smoker Past Alcohol Use History: None Reported Additional Past Alcohol Use History / Comment(s): STARTED SMOKING IN 1988 SMOKES 1/2 PPD Past Drug Use History: None Reported - Past Family History Mother Family Medical History: Cancer, Congestive Heart Failure (CHF), Diabetes Mellitus, Myocardial Infarction (CT) Additional Family Medical History / Comment(s): UTERINE CANCER Father Family Medical History: Coronary Artery Disease (CAD), Myocardial Infarction (CT) Additional Family Medical History / Comment(s): Father at age 70. Sister(s) Family Medical History: Myocardial Infarction (CT) Additional Family Medical History / Comment(s): Patient has one sister with myocardial infarction at age 55. Son(s) Family Medical History: Deep Vein Thrombosis (DVT), Pulmonary Embolus Additional Family Medical History / Comment(s): Patient has 2 sons and one has history of DVT and pulmonary embolism. Medications and Allergies Home Medications Medication Instructions Recorded Confirmed Type Docusate [Colace] 100 mg PO DAILY 11/14/21 05/28/23 History Cyclobenzaprine [Flexeril] 5 mg PO HS PRN 09/06/22 05/28/23 History DULoxetine HCL [Cymbalta] 60 mg PO DAILY 09/06/22 05/28/23 History Ferrous Sulfate [Feosol] 325 mg PO BID 01/08/23 05/28/23 History Rosuvastatin [Crestor] 20 mg PO DAILY 01/08/23 05/28/23 History Ergocalciferol (Vitamin D2) 1,250 mcg PO GUERRERO 04/01/23 05/28/23 History [Drisdol (50,000 Iu)] Melatonin 3 mg PO HS 04/01/23 05/28/23 History Nitroglycerin Sl Tabs [Nitrostat] 0.4 mg SL Q5M PRN 04/01/23 05/28/23 History Omeprazole [PriLOSEC] 20 mg PO DAILY 04/01/23 05/28/23 History Metoprolol Tartrate [Lopressor] 25 mg PO BID #60 tab 04/15/23 05/28/23 Rx lisinopriL [Zestril] 5 mg PO DAILY #30 tab 04/15/23 05/28/23 Rx Potassium Chloride ER [K-Dur 10] 10 meq PO BID 04/22/23 05/28/23 History Gabapentin [Neurontin] 400 mg PO TID #9 cap 05/02/23 05/28/23 Rx HYDROcodone/APAP 7.5-325MG [[place] 1 tab PO QID PRN #12 tab 05/02/23 05/28/23 Rx 7.5-325] INSULIN LISPRO (HumaLOG) [humaLOG] 10 units SQ AC-TID 05/10/23 05/28/23 History INSULIN LISPRO (HumaLOG) [humaLOG] See Protocol SQ AC-TID 05/10/23 05/28/23 History Insulin Glargine,Hum.rec.anlog 34 units SQ HS 05/10/23 05/28/23 History [Lantus Solostar Pen] Collagenase [Santyl Ointment] 1 applic TOPICAL DAILY each 05/18/23 05/28/23 Rx Apixaban [Eliquis] 5 mg PO BID 05/20/23 05/28/23 History Clopidogrel [Plavix] 75 mg PO DAILY 05/20/23 05/28/23 History Dapagliflozin Propanediol [Farxiga] 10 mg PO DAILY 05/20/23 05/28/23 History traMADol HCL 50 mg PO DAILY 05/20/23 05/28/23 History Allergies Allergy/AdvReac Type Severity Reaction Status Date / Time vancomycin Allergy Rash/Hives/and Verified 05/28/23 19:04 vomiting diarrhea/Swelling Physical Exam Vitals: Vital Signs Temp Pulse Resp BP Pulse Ox 05/30/23 04:00 75 18 140/75 95 05/30/23 02:00 82 18 05/30/23 00:00 98.8 F 82 18 132/50 96 05/29/23 20:00 99 F 79 16 153/76 96 05/29/23 15:51 82 16 157/76 95 05/29/23 14:32 100.2 F H 05/29/23 14:00 82 16 05/29/23 12:00 98.4 F 73 18 160/84 96 Intake and Output 05/29/23 05/30/23 05/30/23 22:59 06:59 14:59 Intake Total 480 Output Total 800 Balance 480 -800 Intake: Oral 480 Output: Urine 800 Other: Voiding Method External Catheter External Catheter Results CBC & Chem 7: 05/30/23 07:11 05/30/23 07:11 Labs: Abnormal Lab Results - Last 24 Hours (Table) 05/29/23 05/29/23 05/29/23 Range/Units 10:24 10:24 11:30 WBC 11.6 H (3.8-10.6) k/uL RBC (3.80-5.40) m/uL Hgb 10.6 L (11.4-16.0) gm/dL Hct 33.8 L (34.0-46.0) % RDW 17.7 H (11.5-15.5) % Neutrophils # 9.6 H (1.3-7.7) k/uL Potassium 3.2 L (3.5-5.1) mmol/L BUN 6 L (7-17) mg/dL Glucose 104 H (74-99) mg/dL POC Glucose (mg/dL) 129 H (70-110) mg/dL Calcium 7.2 L (8.4-10.2) mg/dL Alkaline Phosphatase 131 H (38-126) U/L Total Protein 5.4 L (6.3-8.2) g/dL Albumin 2.3 L (3.5-5.0) g/dL 05/29/23 05/29/23 05/30/23 Range/Units 16:39 20:20 07:11 WBC (3.8-10.6) k/uL RBC 3.64 L (3.80-5.40) m/uL Hgb 9.8 L (11.4-16.0) gm/dL Hct 31.3 L (34.0-46.0) % RDW 17.6 H (11.5-15.5) % Neutrophils # (1.3-7.7) k/uL Potassium (3.5-5.1) mmol/L BUN (7-17) mg/dL Glucose (74-99) mg/dL POC Glucose (mg/dL) 223 H 264 H (70-110) mg/dL Calcium (8.4-10.2) mg/dL Alkaline Phosphatase (38-126) U/L Total Protein (6.3-8.2) g/dL Albumin (3.5-5.0) g/dL 05/30/23 Range/Units 07:11 WBC (3.8-10.6) k/uL RBC (3.80-5.40) m/uL Hgb (11.4-16.0) gm/dL Hct (34.0-46.0) % RDW (11.5-15.5) % Neutrophils # (1.3-7.7) k/uL Potassium 3.2 L (3.5-5.1) mmol/L BUN (7-17) mg/dL Glucose (74-99) mg/dL POC Glucose (mg/dL) (70-110) mg/dL Calcium 7.1 L (8.4-10.2) mg/dL Alkaline Phosphatase 128 H (38-126) U/L Total Protein 5.2 L (6.3-8.2) g/dL Albumin 2.2 L (3.5-5.0) g/dL Microbiology - Last 24 Hours (Table) 05/28/23 16:15 Blood Culture - Preliminary Blood 05/28/23 16:30 Blood Culture - Preliminary Blood 05/28/23 18:06 Gram Stain - Preliminary Abdomen 05/28/23 18:06 Gram Stain - Preliminary Leg - Right Assessment and Plan (1) 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 Current Visit: Yes Status: Acute Code(s): L97.113 - NON-PRS CHRONIC ULCER OF RIGHT THIGH W NECROSIS OF MUSCLE SNOMED Code(s): 74697621361448195 (2) Atherosclerosis of [place] artery of right lower extremity with ulceration Current Visit: No Status: Acute Code(s): I70.239 - ATHSCL [place] ARTERIES OF RIGHT LEG W ULCER OF UNSP SITE SNOMED Code(s): 4231189697 (3) Type 2 diabetes mellitus with other skin ulcer Current Visit: No Status: Acute Code(s): E11.622 - TYPE 2 DIABETES MELLITUS WITH OTHER SKIN ULCER; L98.499 - NON-PRESSURE CHRONIC ULCER OF SKIN OF SITES W UNSP SEVERITY SNOMED Code(s): 531670374
[2023-05-30 11:20] LABS: Glucose,Whole Blood 91 mg/dL (70-110)
[2023-05-30] MEDS ORDERED: Potassium Replacement Protocol 1 EACH MISC MISCELLANE PRN (11:24)
[2023-05-30] MEDS: POTASSIUM CHLORIDE 10 MEQ in WATER FOR INJECTION 1 100ML.BAG IVPB SCH ×4 (11:41→21:19)
--- NOTE | 2023-05-30 15:04 | P.PN ---
Subjective Progress Note Date: 05/30/23 Principal diagnosis: Right leg wound infection Patient is a 63-year-old female with a past medical history significant for diabetes mellitus peripheral arterial disease coronary disease patient did have PAD and bypass graft with CryoVein right common thromboendarterectomy and right groin hematoma evacuation as well as right Achilles wound debridement and skin graft application patient has been sent to the ER by the home care nurse concerning for infection of the right lower extremity, On today's evaluation that is 05/30/2023, the patient fever pattern has improved , the patient is breathing comfortably on room air, the patient denies any chest pain or cough, patient denies abdominal pain, and denies any nausea/vomiting or diarrhea , denies any worsening pain to the right lower extremity Patient white count of 10.3, creatinine 0.6 and cultures are pending Objective - Vital Signs Vital signs: Vital Signs Temp 98.7 F 05/30/23 08:00 Pulse 84 05/30/23 08:00 Resp 18 05/30/23 08:00 BP 156/72 05/30/23 08:00 Pulse Ox 95 05/30/23 08:00 FiO2 Intake & Output 05/29/23 05/30/23 05/30/23 18:59 06:59 18:59 Intake Total 1440 Output Total 1600 800 Balance -160 -800 Intake: Oral 1440 Output: Urine 1600 800 Other: Voiding Method External Catheter External Catheter External Catheter - Exam GENERAL DESCRIPTION: Middle-aged female lying in bed in no distress RESPIRATORY SYSTEM: Unlabored breathing , clear to auscultation anteriorly HEART: S1 S2 regular rate and rhythm , ABDOMEN: Soft , no tenderness EXTREMITIES: Right leg wound is currently dressed - Labs CBC & Chem 7: 05/30/23 07:11 05/30/23 07:11 Labs: Abnormal Lab Results - Last 24 Hours (Table) 05/29/23 05/29/23 05/30/23 Range/Units 16:39 20:20 07:11 RBC 3.64 L (3.80-5.40) m/uL Hgb 9.8 L (11.4-16.0) gm/dL Hct 31.3 L (34.0-46.0) % RDW 17.6 H (11.5-15.5) % Potassium (3.5-5.1) mmol/L POC Glucose (mg/dL) 223 H 264 H (70-110) mg/dL Calcium (8.4-10.2) mg/dL Alkaline Phosphatase (38-126) U/L Total Protein (6.3-8.2) g/dL Albumin (3.5-5.0) g/dL 05/30/23 Range/Units 07:11 RBC (3.80-5.40) m/uL Hgb (11.4-16.0) gm/dL Hct (34.0-46.0) % RDW (11.5-15.5) % Potassium 3.2 L (3.5-5.1) mmol/L POC Glucose (mg/dL) (70-110) mg/dL Calcium 7.1 L (8.4-10.2) mg/dL Alkaline Phosphatase 128 H (38-126) U/L Total Protein 5.2 L (6.3-8.2) g/dL Albumin 2.2 L (3.5-5.0) g/dL Microbiology - Last 24 Hours (Table) 05/28/23 18:06 Gram Stain - Preliminary Abdomen Wound Culture - Preliminary Gram Neg Bacilli 05/28/23 18:06 Gram Stain - Preliminary Leg - Right Wound Culture - Preliminary Gram Neg Bacilli 05/28/23 16:15 Blood Culture - Preliminary Blood 05/28/23 16:30 Blood Culture - Preliminary Blood Assessment and Plan (1) Cellulitis of right leg Current Visit: Yes Status: Acute Code(s): L03.115 - CELLULITIS OF RIGHT LOWER LIMB SNOMED Code(s): 48386105558452288 (2) Leg wound, right Current Visit: Yes Status: Acute Code(s): S81.801A - UNSPECIFIED OPEN WOUND, RIGHT LOWER LEG, INITIAL ENCOUNTER SNOMED Code(s): 042561281 Plan: 1patient presented to hospital with sepsis in this patient with a fever elevated white count source likely her right lower extremity infected wound and second cellulitis likely from gram-positive skin jesus however the patient recently has grown Pseudomonas from the area could be related to the same pathogen. 2patient did have a vancomycin allergy that will limit the number of antibiotics safe to use. 3patient to continue with cefepime 2 grams 8 hours and daptomycin 4 mg/kg every 24 hours. 4- Await surgical debridement and deep culture scheduled for this afternoon. We will follow on clinical condition and cultures to further adjust medication if needed Thank you for this consultation we will follow the patient along with you Dictation was produced using [employer] dictation software. please excuse any grammatical, word or spelling errors.
[2023-05-30 16:03] LABS: Glucose,Whole Blood 65 mg/dL (70-110)
[2023-05-30] MEDS ORDERED: LACTATED RINGERS 1,000 ML IV ONE (16:09)
[2023-05-30] MEDS ORDERED: ONDANSETRON 4 MG/2 ML VIAL ONE (16:11)
[2023-05-30] MEDS ORDERED: ONDANSETRON 4 MG/2 ML VIAL IVP ONE ×2 (16:18→22:53)
[2023-05-30] MEDS ORDERED: DEXTROSE 50% SYRINGE 50 ML IVP ONE (16:18)
[2023-05-30 16:31] LABS: Glucose,Whole Blood 115 mg/dL (70-110)
[2023-05-30] MEDS ORDERED: KETAMINE HCL IN 0.9 % NACL 50 MG/5 ML SYRINGE ONE (16:47)
[2023-05-30] MEDS ORDERED: fentaNYL (PF) 50 MCG/ML 2 ML AMP ONE (16:47)
[2023-05-30] MEDS ORDERED: MIDAZOLAM 2 MG/2 ML VIAL ONE (16:47)
[2023-05-30] MEDS ORDERED: PROPOFOL 10 MG/ML 20 ML VIAL IV ONE (16:47)
[2023-05-30 17:41] LABS: Glucose,Whole Blood 110 mg/dL (70-110)
[2023-05-30] MEDS: COLLAGENASE 250 UNIT/GM OINTMENT 30 GM TUBE TOPICAL SCH (17:43)
--- NOTE | 2023-05-30 17:56 | P.OP ---
Date of Procedure: 05/30/23 Description of Procedure: Preoperative diagnosis: Infected right lower extremity wound Postoperative diagnosis: Same Procedure: Sharp excisional debridement right lower extremity wound measuring 23 x 9 x 2.5 cm to muscle with undermining at the 12 o'clock position of 8.7 cm Surgeon: Padmaja Mendoza D.O. EBL: 10 mL IV fluids: See records Urine output: Not measured Drains: None Complications: None immediately apparent Condition: Stable to recovery Operative indication and findings: Patient is a 63-year-old female with severe left lower extremity wounds at a become infected. She presents for aggressive debridement. Procedure in detail: Patient is a the operative suite and placed in lateral decubitus position. Right lower extremity prepped and draped in usual sterile fashion. A timeout was performed and all parties were in agreement. Using a scalpel, the areas of eschar and necrotic tissue were debrided sharply. Using scissors, the devitalized muscle and infected tissue was debrided. It was noted that at the cephalad position there was a significant tunnel therefore was extended along level through the devitalized tissue. It was extended to the level of healthy-appearing skin however there still remained a large appearing portion of tunneling. At that conclusion, the majority of the devitalized tissue was removed. The muscles themselves however appeared to be non- cris. The fibrinous and exudative tissue was all removed. The area was copiously irrigated and saline moistened wet-to-dry dressings are placed. The patient was allowed awaken from anesthesia and transferred to recovery in stable condition having tolerated the procedure well. Due to the extent of the wound, the port tissue quality and lack of adequate flap potential I do believe the patient will need a above-knee amputation. Timing to be determined pending discussion with cardiology regarding holding her medications. Discussed with family that if we are unable to hold antiplatelet medication, surgery would have to be done under general anesthesia I she would not be able to undergo regional block. We will discuss this with patient along with other options including potential palliative care however, there is not something that she would like to undergo per family at this time.
[2023-05-30] MEDS ORDERED: HYDROmorphone 0.5 MG/0.5 ML SYRINGE IVP ONE (18:01)
[2023-05-30 20:51] LABS: Glucose,Whole Blood 206 mg/dL (70-110)
[2023-05-30] MEDS: CLOPIDOGREL 75 MG TAB PO SCH (21:16)
[2023-05-30] MEDS: INSULIN DETEMIR (LEVEMIR) 100 UNIT/ML SYR SQ SCH (21:16)
[2023-05-30] MEDS: CYCLOBENZAPRINE 5 MG TAB PO PRN (21:17)
[2023-05-30] MEDS: MELATONIN 3 MG TABLET PO SCH (21:17)
[2023-05-30] MEDS ORDERED: HYDROmorphone 0.5 MG/0.5 ML SYRINGE IVP PRN (22:53)
[2023-05-30] MEDS ORDERED: DEXAMETHASONE SOD PHOSPHATE 4 MG/ML 1 ML VIAL IV ONE (22:53)
[2023-05-30] MEDS: LACTATED RINGERS 1,000 ML IV SCH (23:14)
[2023-05-31] MEDS: CEFEPIME 2 GM in SODIUM CHLORIDE 0.9% 100 ML IVPB SCH ×4 (00:17→23:25)
[2023-05-31] MEDS: HYDROmorphone 1 MG/ML 1 ML SYRINGE IVP PRN ×2 (05:41→09:12)
[2023-05-31 05:47] LABS: Glucose,Whole Blood 124 mg/dL (70-110)
[2023-05-31] MEDS: HYDROcodone/APAP 7.5-325MG 1 EACH TAB PO PRN ×4 (06:50→23:25)
[2023-05-31] MEDS: INSULIN ASPART (NovoLOG) 100 UNIT/ML VIAL SQ SCH ×2 (06:50→12:13)
--- NOTE | 2023-05-31 07:45 | P.PN ---
Subjective Progress Note Date: 05/29/23 HISTORY OF PRESENT ILLNESS This is a 63-year-old female patient of mine with history of CAD with multiple cardiac stents in mid RCA, mid LAD, obtuse marginal branch and followed by Dr. Bill closely, peripheral artery disease with previous stenting done as well has amputation of the right great toe secondary to osteomyelitis, CVA with no residual deficits, hypertension, COPD, diabetes mellitus type 2, previous multiple DVT and PE requiring chronic anticoagulation on eliquis, history of GI bleed secondary to antral gastritis, esophagitis, vitamin D deficiency, autono margot hypotension on midodrine, history of left humerus fracture. resume with patient April 02 through April 15 at which time she presented to the hospital due to right second and fifth toe ischemic change. A CT angiogram showed evidence of occlusion of the right superficial femoral artery and 2 occluded segments 1 in the mid thigh about 3 cm and another into the right popliteal artery at 13 cm length, occlusion of the right iliac artery into the common femoral artery. Patient was seen in consultation by vascular surgery. Arterial ultrasound showed lower extremity abnormal on the right with HERMINIA suggests severe atherosclerotic disease. Critical stenosis not excluded. Plan for open bypass surgery with vascular surgery was made but a cardiology consult was requested. Patient was seen by Dr. Bill and had chest pain complaint and Due to critical in-stent restenosis and subsequently underwent cardiac catheterization which revealed critical in-stent restenosis of the RCA and Dr. Bill present performed stenting of the RCA. There was also intermediate disease in the first obtuse marginal branch of the left circumflex, intermediate disease involving the LAD and mildly elevated left sided filling pressures. Access was obtained from the right groin. Unfortunately following removal of the sheath, patient developed a significant hematoma to the right groin into the right pelvic area measuring up to 11.9 cm requiring ICU management, transfusion of packed RBCs and vasopressors for brief period along with IV fluid resuscitation. Patient was stabilized and discharged to home with home care but she returned with worsening wounds, hypotension with blood pressure of 84/57, leukocytosis of 26. She was seen by multiple consultants including wound care, infectious disease, vascular surgery. Patient underwent right common femoral to tibial vein bypass with debridement of a right exposed Achilles tendon heel, second third and fourth toes of the right foot and drainage of right inguinal hematoma with wound VAC with subsequent hematoma evacuation on 04/30. Patient was stabili zed and discharged to [facility] for subacute rehab. She returned to the emergency department about few weeks back and she was diagnosed with acute pancreatitis and she was taken off of her she was discharged home because she refused to go back to [facility] and she recently underwent a skin grat to the right achilles lower leg area that was done by Umair Tejeda was Saturday before yesterday and carin was discharged home in a stable condition with a follow up last Saturday and then last and had the home care nurse coming for dressing changes and she was found to have black eschar on the back of her leg with purulent material coming out of her leg and right gron with a split wound where the LITO was and she appeared to have sepsis , she was started on IV Cefepime after obtaining blood cultures and wound cultures and she was admitted to the Hospital with vacular surgery consult along with ID consult 05/29: Patient has been seen by vascular surgery with plan for debridement of the Achilles area with possible amputation tomorrow. Eliquis has been discontinued. Patient has been maintained on Plavix. Blood pressure 149/85, heart rate is in the 70s, afebrile, pulse ox 94% on room air. WBC 11.6, hemoglobin 10.6, platelet count 269. Sodium 138, potassium 3.2 and will be replaced. Creatinine 0.6 BUN 6. Capillary blood glucose running between 85 and 129. Alkaline phosphatase 131. Gram stain from the wound right leg reveals moderate polymorphonuclear leukocytes, many gram-positive cocci and many gram- negative bacilli. Patient has been continued on cefepime 2 g IV piggyback every 12 hours. Patient is followed by infectious disease as well. Consult is in place for wound care center. REVIEW OF SYSTEMS Constitutional: positive for fever, No chills, no night sweats. Reports weight loss. Reports weakness, Reports fatigue no lethargy. NO daytime sleepiness. HEENT: No headache. No dizziness. Reports difficulty swallowing. No nasal drainage or congestion. No epistaxis. No sore throat. Lungs: No shortness of breath, cough, no sputum production. No wheezing. Cardiovascular: No chest pain, no lower extremity edema. No palpitations. No paroxysmal nocturnal dyspnea. No orthopnea. No lightheadedness or dizziness. No syncopal episodes. Abdominal: Reports abdominal pain. Reports nausea, no vomiting. no diarrhea. No constipation. No bloody or tarry stools. Reports loss of appetite. Genitourinary: No dysuria, increased frequency, urgency. No urinary retention. Musculoskeletal: No myalgias. positive for muscle weakness, reports balance issues, reports gait dysfunction, reports frequent falls. No back pain. No neck pain. Integumentary: Left achilles with a black eschar and purulent drainaige and right groin with open wound, Right 2nd, 3rd and 5th toes and right big toe amputation Neurologic: No aphasia. No facial droop. No change in mentation. No head injury. No headache. No paralysis. No paresthesia. Psychiatric: Reports depression. Reports anxiety. No mood swings. Endocrine: abnormal blood sugars. positive for weight change. No excessive sweating or thirst. No cold intolerance. PHYSICAL EXAMINATION Gen: This is a 63-year-old female. She is resting on ER bed and appears to be in no acute distress. HEENT: Head is atraumatic, normocephalic. Pupils equal, round. Sclerae is anicteric. Mucous members of the mouth are somewhat dry. NECK: Supple. No JVD. No lymphadenopathy. No thyromegaly. LUNGS: Clear to auscultation. No wheezes or rhonchi. No intercostal retractions. 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 ABDOMEN: Soft. Bowel sounds are present. No masses. no tenderness. Large hematoma to right pelvis soft, surrounding and dependent ecchymosis. EXTREMITIES: No pedal edema. Right big toe amputation, right 2nd, 3rd, and 5th toe amputaions, right achilles with balck eschar and non viable skin graft. NEUROLOGICAL: Patient is awake, alert and oriented x3. Cranial nerves 2 through 12 are grossly intact. Muscle power 4/5 in the left upper extremity, 4/5 in the right upper extremity, 3/5 in the bilateral lower extremities. DTRs are depressed bilaterally. Neuropathic changes in both feet. ASSESSMENT AND PLAN 1. Right leg infected/failed graft with sepsis. blood cultures, wound cultures and we will start Cefepime 3 gr IVPB Q 8 hours, ID consult, we will continue with IVF and we will repeat Lactic acid in 6 hours.we will consult vascular surgery, infectious disease, wound center. 2. Recent right common femoral to tibial vein bypass with debridement of the right exposed Achilles tendon heel second third and fifth toes of the right foot, also drainage of the right inguinal hematoma post removal of the LITO drain with a split wound in the right groin, we will continue with current treatment as in [place] [facility]1 consult vascular surgery 3. Coronary artery disease with recent stent of the RCA due to recent in-stent restenosis. Patient has had previous multiple cardiac stents to the RCA and mid LAD, obtuse marginal branch. Continue patient on Plavix 75 mg daily, Lopressor 25 mg twice daily, Crestor 20 mg daily. 4. Diabetes mellitus type 2 uncontrolled with hyperglycemia. Continue NovoLog scale before meals and at bedtime. Patient will be started back on Lantus 34 units at bedtime.and we will continue with Novolog 10 units AC meals TID 5. Hyperlipidemia. Continue Atorvastatin 40 mg po daily 6. Chronic DVT and PEs. Continue patient on eliquis 5 mg twice daily. 7. Chronic anemia with recent acute blood loss anemia secondary to hematoma in the right groin/pelvis. Continue patient on ferrous sulfate 325 mg twice daily. 8. Hypertension and hypertensive cardiovascular disease, Continue lisinopril 5 mg daily, Lopressor 25 mg twice daily. 9. Gastroesophageal reflux disease and GI prophylaxis. Continue Pantoprazole 40 mg daily. 10. Diabetic neuropathy. w will continue wit Gabapentin 400 mg po tid. 11. Generalized anxiety disorder, recurrent depression. Continue Cymbalta 60 mg daily. 12. Patient diagnosed with EPI at [facility]. 13. Admits to inpatient . estimate length of stay 2 midnights. 14. Full code. Objective - Vital Signs Vital signs: Vital Signs Temp 98.6 F 05/29/23 08:00 Pulse 77 05/29/23 08:00 Resp 16 05/29/23 08:00 BP 149/85 05/29/23 08:00 Pulse Ox 94 L 05/29/23 08:00 FiO2 Intake & Output 05/28/23 05/29/23 05/29/23 18:59 06:59 18:59 Intake Total 480 Output Total 900 900 Balance -900 -420 Weight 93.44 kg 93.44 kg Intake: Oral 480 Output: Urine 900 900 Other: Voiding Method External Catheter External Catheter - Labs CBC & Chem 7: 05/30/23 07:11 05/30/23 07:11 Labs: Abnormal Lab Results - Last 24 Hours (Table) 05/28/23 05/28/23 05/28/23 Range/Units 15:57 15:58 15:58 WBC 13.4 H (3.8-10.6) k/uL Hgb (11.4-16.0) gm/dL Hct (34.0-46.0) % RDW 17.6 H (11.5-15.5) % Neutrophils # 10.5 H (1.3-7.7) k/uL Sodium 134 L (137-145) mmol/L Potassium 2.8 L (3.5-5.1) mmol/L Chloride 89 L (98-107) mmol/L Carbon Dioxide 31 H (22-30) mmol/L BUN 5 L (7-17) mg/dL Glucose 134 H (74-99) mg/dL POC Glucose (mg/dL) (70-110) mg/dL Plasma Lactic Acid Mynor 4.6 H* (0.7-2.0) mmol/L Calcium 7.6 L (8.4-10.2) mg/dL Alkaline Phosphatase 160 H (38-126) U/L Total Protein (6.3-8.2) g/dL Albumin 2.9 L (3.5-5.0) g/dL 05/28/23 05/29/23 05/29/23 Range/Units 20:51 10:24 10:24 WBC 11.6 H (3.8-10.6) k/uL Hgb 10.6 L (11.4-16.0) gm/dL Hct 33.8 L (34.0-46.0) % RDW 17.7 H (11.5-15.5) % Neutrophils # 9.6 H (1.3-7.7) k/uL Sodium (137-145) mmol/L Potassium 3.2 L (3.5-5.1) mmol/L Chloride (98-107) mmol/L Carbon Dioxide (22-30) mmol/L BUN 6 L (7-17) mg/dL Glucose 104 H (74-99) mg/dL POC Glucose (mg/dL) 127 H (70-110) mg/dL Plasma Lactic Acid Mynor (0.7-2.0) mmol/L Calcium 7.2 L (8.4-10.2) mg/dL Alkaline Phosphatase 131 H (38-126) U/L Total Protein 5.4 L (6.3-8.2) g/dL Albumin 2.3 L (3.5-5.0) g/dL 05/29/23 Range/Units 11:30 WBC (3.8-10.6) k/uL Hgb (11.4-16.0) gm/dL Hct (34.0-46.0) % RDW (11.5-15.5) % Neutrophils # (1.3-7.7) k/uL Sodium (137-145) mmol/L Potassium (3.5-5.1) mmol/L Chloride (98-107) mmol/L Carbon Dioxide (22-30) mmol/L BUN (7-17) mg/dL Glucose (74-99) mg/dL POC Glucose (mg/dL) 129 H (70-110) mg/dL Plasma Lactic Acid Mynor (0.7-2.0) mmol/L Calcium (8.4-10.2) mg/dL Alkaline Phosphatase (38-126) U/L Total Protein (6.3-8.2) g/dL Albumin (3.5-5.0) g/dL Microbiology - Last 24 Hours (Table) 05/28/23 18:06 Gram Stain - Preliminary Leg - Right
--- NOTE | 2023-05-31 07:54 | P.PN ---
Subjective Progress Note Date: 05/30/23 HISTORY OF PRESENT ILLNESS This is a 63-year-old female patient of mine with history of CAD with multiple cardiac stents in mid RCA, mid LAD, obtuse marginal branch and followed by Dr. Bill closely, peripheral artery disease with previous stenting done as well has amputation of the right great toe secondary to osteomyelitis, CVA with no residual deficits, hypertension, COPD, diabetes mellitus type 2, previous multiple DVT and PE requiring chronic anticoagulation on eliquis, history of GI bleed secondary to antral gastritis, esophagitis, vitamin D deficiency, autono margot hypotension on midodrine, history of left humerus fracture. resume with patient April 02 through April 15 at which time she presented to the hospital due to right second and fifth toe ischemic change. A CT angiogram showed evidence of occlusion of the right superficial femoral artery and 2 occluded segments 1 in the mid thigh about 3 cm and another into the right popliteal artery at 13 cm length, occlusion of the right iliac artery into the common femoral artery. Patient was seen in consultation by vascular surgery. Arterial ultrasound showed lower extremity abnormal on the right with HERMINIA suggests severe atherosclerotic disease. Critical stenosis not excluded. Plan for open bypass surgery with vascular surgery was made but a cardiology consult was requested. Patient was seen by Dr. Bill and had chest pain complaint and Due to critical in-stent restenosis and subsequently underwent cardiac catheterization which revealed critical in-stent restenosis of the RCA and Dr. Bill present performed stenting of the RCA. There was also intermediate disease in the first obtuse marginal branch of the left circumflex, intermediate disease involving the LAD and mildly elevated left sided filling pressures. Access was obtained from the right groin. Unfortunately following removal of the sheath, patient developed a significant hematoma to the right groin into the right pelvic area measuring up to 11.9 cm requiring ICU management, transfusion of packed RBCs and vasopressors for brief period along with IV fluid resuscitation. Patient was stabilized and discharged to home with home care but she returned with worsening wounds, hypotension with blood pressure of 84/57, leukocytosis of 26. She was seen by multiple consultants including wound care, infectious disease, vascular surgery. Patient underwent right common femoral to tibial vein bypass with debridement of a right exposed Achilles tendon heel, second third and fourth toes of the right foot and drainage of right inguinal hematoma with wound VAC with subsequent hematoma evacuation on 04/30. Patient was stabili zed and discharged to [facility] for subacute rehab. She returned to the emergency department about few weeks back and she was diagnosed with acute pancreatitis and she was taken off of her gaand she was discharged home because she refused to go back to [facility] and she recently underwent a skin grat to the right achilles lower leg area that was done by Umair Tejeda was Saturday before yesterday and carin was discharged home in a stable condition with a follow up last Saturday and then last and had the home care nurse coming for dressing changes and she was found to have black eschar on the back of her leg with purulent material coming out of her leg and right gron with a split wound where the LITO was and she appeared to have sepsis , she was started on IV Cefepime after obtaining blood cultures and wound cultures and she was admitted to the Hospital with vacular surgery consult along with ID consult 05/29: Patient has been seen by vascular surgery with plan for debridement of the Achilles area with possible amputation tomorrow. Eliquis has been discontinued. Patient has been maintained on Plavix. Blood pressure 149/85, heart rate is in the 70s, afebrile, pulse ox 94% on room air. WBC 11.6, hemoglobin 10.6, platelet count 269. Sodium 138, potassium 3.2 and will be replaced. Creatinine 0.6 BUN 6. Capillary blood glucose running between 85 and 129. Alkaline phosphatase 131. Gram stain from the wound right leg reveals moderate polymorphonuclear leukocytes, many gram-positive cocci and many gram- negative bacilli. Patient has been continued on cefepime 2 g IV piggyback every 12 hours. Patient is followed by infectious disease as well. Consult is in place for wound care center. 05/30: Patient is scheduled for debridement of the right lower extremity wound this afternoon with Dr. Mendoza. Deep cultures are to be obtained. Patient is continued on cefepime and daptomycin per Dr. Sheppard. Fevers are improving. Heart rate is in the 70s and 80s, blood pressure 128/57, pulse ox 94% on room air. WBC 10.3, hemoglobin 9.8, platelet count 234. Sodium 137, potassium 3.2, CO2 36, BUN 7 creatinine 0.67. CBG [id number]. Wound cultures are showing gram- negative bacilli. Blood culture no growth at 48 hours. Patient has been seen by the wound care team with recommendations for Santyl, saline moistened gauze dry gauze to the right groin wound. REVIEW OF SYSTEMS Constitutional: positive for fever, No chills, no night sweats. Reports weight loss. Reports weakness, Reports fatigue no lethargy. NO daytime sleepiness. HEENT: No headache. No dizziness. Reports difficulty swallowing. No nasal drainage or congestion. No epistaxis. No sore throat. Lungs: No shortness of breath, cough, no sputum production. No wheezing. Cardiovascular: No chest pain, no lower extremity edema. No palpitations. No paroxysmal nocturnal dyspnea. No orthopnea. No lightheadedness or dizziness. No syncopal episodes. Abdominal: Reports abdominal pain. Reports nausea, no vomiting. no diarrhea. No constipation. No bloody or tarry stools. Reports loss of appetite. Genitourinary: No dysuria, increased frequency, urgency. No urinary retention. Musculoskeletal: No myalgias. positive for muscle weakness, reports balance issues, reports gait dysfunction, reports frequent falls. No back pain. No neck pain. Integumentary: Left achilles with a black eschar and purulent drainaige and right groin with open wound, Right 2nd, 3rd and 5th toes and right big toe amputation Neurologic: No aphasia. No facial droop. No change in mentation. No head injury. No headache. No paralysis. No paresthesia. Psychiatric: Reports depression. Reports anxiety. No mood swings. Endocrine: abnormal blood sugars. positive for weight change. No excessive sweating or thirst. No cold intolerance. PHYSICAL EXAMINATION Gen: This is a 63-year-old female. She is resting in bed and appears to be in no acute distress. HEENT: Head is atraumatic, normocephalic. Pupils equal, round. Sclerae is anicteric. Mucous members of the mouth are somewhat dry. NECK: Supple. No JVD. No lymphadenopathy. No thyromegaly. LUNGS: Clear to auscultation. No wheezes or rhonchi. No intercostal r etractions. 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 ABDOMEN: Soft. Bowel sounds are present. No masses. no tenderness. Large hematoma to right pelvis soft, surrounding and dependent ecchymosis. EXTREMITIES: No pedal edema. Right big toe amputation, right 2nd, 3rd, and 5th toe amputaions, right achilles with balck eschar and non viable skin graft. NEUROLOGICAL: Patient is awake, alert and oriented x3. Cranial nerves 2 through 12 are grossly intact. Muscle power 4/5 in the left upper extremity, 4/5 in the right upper extremity, 3/5 in the bilateral lower extremities. DTRs are depressed bilaterally. Neuropathic changes in both feet. ASSESSMENT AND PLAN 1. Right leg infected/failed graft with sepsis. blood cultures, wound cultures and we will start Cefepime 3 gr IVPB Q 8 hours, ID consult, we will continue with IVF and we will repeat Lactic acid in 6 hours.we will consult vascular surgery, infectious disease, wound center. 2. Recent right common femoral to tibial vein bypass with debridement of the right exposed Achilles tendon heel second third and fifth toes of the right foot, also drainage of the right inguinal hematoma post removal of the LITO drain with a split wound in the right groin, we will continue with current treatment as in [place]1 consult vascular surgery. Continue local wound care per wound Center to groin 3. Coronary artery disease with recent stent of the RCA due to recent in-stent restenosis. Patient has had previous multiple cardiac stents to the RCA and mid LAD, obtuse marginal branch. Continue patient on Plavix 75 mg daily, Lopressor 25 mg twice daily, Crestor 20 mg daily. 4. Diabetes mellitus type 2 uncontrolled with hyperglycemia. Continue NovoLog scale before meals and at bedtime. Patient will be started back on Lantus 34 units at bedtime.and we will continue with Novolog 10 units AC meals TID 5. Hyperlipidemia. Continue Atorvastatin 40 mg po daily 6. Chronic DVT and PEs. Continue patient on eliquis 5 mg twice daily. 7. Chronic anemia with recent acute blood loss anemia secondary to hematoma in the right groin/pelvis. Continue patient on ferrous sulfate 325 mg twice daily. 8. Hypertension and hypertensive cardiovascular disease, Continue lisinopril 5 mg daily, Lopressor 25 mg twice daily. 9. Gastroesophageal reflux disease and GI prophylaxis. Continue Pantoprazole 40 mg daily. 10. Diabetic neuropathy. w will continue wit Gabapentin 400 mg po tid. 11. Generalized anxiety disorder, recurrent depression. Continue Cymbalta 60 mg daily. 12. Patient diagnosed with EPI at [facility]. 13. Admits to inpatient . estimate length of stay 2 midnights. 14. Full code. Impression and plan of care have been directed as dictated by the signing physician. Kerri Kevin nurse practitioner acting as scribe for signing physician. Objective - Vital Signs Vital signs: Vital Signs Temp 99.2 F 05/31/23 04:00 Pulse 90 05/31/23 04:00 Resp 20 05/31/23 04:00 BP 151/80 05/31/23 04:00 Pulse Ox 92 L 05/31/23 04:00 FiO2 Intake & Output 05/30/23 05/31/23 05/31/23 18:59 06:59 18:59 Intake Total 850 Output Total 710 1000 Balance 140 -1000 Weight 93.44 kg Intake: IV 850 Output: Urine 700 1000 Estimated Blood Loss 10 Other: Voiding Method External Catheter External Catheter # Voids 1 - Labs CBC & Chem 7: 05/30/23 07:11 05/30/23 07:11 Labs: Abnormal Lab Results - Last 24 Hours (Table) 05/30/23 05/30/23 05/30/23 Range/Units 07:11 07:11 16:01 RBC 3.64 L (3.80-5.40) m/uL Hgb 9.8 L (11.4-16.0) gm/dL Hct 31.3 L (34.0-46.0) % RDW 17.6 H (11.5-15.5) % Potassium 3.2 L (3.5-5.1) mmol/L POC Glucose (mg/dL) 65 L (70-110) mg/dL Calcium 7.1 L (8.4-10.2) mg/dL Alkaline Phosphatase 128 H (38-126) U/L Total Protein 5.2 L (6.3-8.2) g/dL Albumin 2.2 L (3.5-5.0) g/dL 05/30/23 05/30/23 05/31/23 Range/Units 16:30 20:50 05:43 RBC (3.80-5.40) m/uL Hgb (11.4-16.0) gm/dL Hct (34.0-46.0) % RDW (11.5-15.5) % Potassium (3.5-5.1) mmol/L POC Glucose (mg/dL) 115 H 206 H 124 H (70-110) mg/dL Calcium (8.4-10.2) mg/dL Alkaline Phosphatase (38-126) U/L Total Protein (6.3-8.2) g/dL Albumin (3.5-5.0) g/dL Microbiology - Last 24 Hours (Table) 05/28/23 16:15 Blood Culture - Preliminary Blood 05/28/23 16:30 Blood Culture - Preliminary Blood 05/28/23 18:06 Gram Stain - Preliminary Abdomen Wound Culture - Preliminary Gram Neg Bacilli 05/28/23 18:06 Gram Stain - Preliminary Leg - Right Wound Culture - Preliminary Gram Neg Bacilli
[2023-05-31 08:35] LABS: Anisocytosis Slight; Basophils % (A) 0 %; Eosinophils # (A) 0.1 k/uL (0-0.7); Eosinophils % (A) 2 %; HCT 27.7 % (34.0-46.0); HGB 8.6 gm/dL (11.4-16.0); Hypochromasia Marked; Lymphocytes # (A) 0.6 k/uL (1.0-4.8); Lymphocytes % (A) 7 %; MCH 26.6 pg (25.0-35.0); MCHC 31.1 g/dL (31.0-37.0); MCV 85.5 fL (80.0-100.0); Mean Platelet Volume 8.2; Monocytes # (A) 1.9 k/uL (0-1.0); Monocytes % (A) 20 %; Neutrophils # (A) 6.7 k/uL (1.3-7.7); Neutrophils % (A) 71 %; Platelet Count 236 k/uL (150-450); Poikilocytosis Slight; RBC 3.24 m/uL (3.80-5.40); RDW 17.3 % (11.5-15.5); WBC 9.4 k/uL (3.8-10.6)
[2023-05-31 08:41] LABS: African American GFR (CKD) >90 (>60 ml/min/1.73 sqM); Anion Gap 6 mmol/L; Blood Urea Nitrogen 6 mg/dL (7-17); Calcium 6.8 mg/dL (8.4-10.2); Carbon Dioxide 28 mmol/L (22-30); Chloride 102 mmol/L (98-107); Glucose 97 mg/dL (74-99); Non-African American GFR(CKD) >90 (>60 ml/min/1.73 sqM); Potassium 3.5 mmol/L (3.5-5.1); Sodium 136 mmol/L (137-145)
[2023-05-31] MEDS: DULoxetine HCL 60 MG CAPSULE.DR PO SCH (09:12)
[2023-05-31] MEDS: PANTOPRAZOLE 40 MG TABLET PO SCH (09:12)
[2023-05-31] MEDS: DOCUSATE 100 MG CAP PO SCH (09:12)
[2023-05-31] MEDS: CLOPIDOGREL 75 MG TAB PO SCH (09:12)
[2023-05-31] MEDS: METOPROLOL TARTRATE 25 MG TAB PO SCH ×2 (09:12→20:04)
[2023-05-31] MEDS: POTASSIUM CHLORIDE ER 10 MEQ TAB.ER.PRT PO SCH ×2 (09:12→20:04)
[2023-05-31] MEDS: GABAPENTIN 400 MG CAP PO SCH ×3 (09:12→20:04)
[2023-05-31] MEDS: FERROUS SULFATE 325 MG TAB PO SCH ×2 (09:12→20:04)
[2023-05-31] MEDS: lisinopriL 5 MG TAB PO SCH (09:12)
[2023-05-31] MEDS: SODIUM CHLORIDE 0.9% 1,000 ML IV SCH ×2 (09:13→23:25)
--- NOTE | 2023-05-31 09:48 | P.PN ---
Subjective Progress Note Date: 05/31/23 Principal diagnosis: Right lower extremity infected wound Patient is seen and examined today as a follow-up. Yesterday she underwent sharp excisional debridement of the right lower extremity. During that time and was found that she had significant amount of undermining and tunneling. Patient states she is having quite a bit of pain right lower extremity after debridement site. Patient is afebrile. Objective - Vital Signs Vital signs: Vital Signs Temp 99.2 F 05/31/23 04:00 Pulse 90 05/31/23 04:00 Resp 20 05/31/23 04:00 BP 151/80 05/31/23 04:00 Pulse Ox 92 L 05/31/23 04:00 FiO2 Intake & Output 05/30/23 05/31/23 05/31/23 18:59 06:59 18:59 Intake Total 850 Output Total 710 1000 Balance 140 -1000 Weight 93.44 kg Intake: IV 850 Output: Urine 700 1000 Estimated Blood Loss 10 Other: Voiding Method External Catheter External Catheter # Voids 1 - Exam General appearance: The patient is alert, oriented, appears in no acute distress. HET: Head is normocephalic and atraumatic. Pupils are equal and reactive. Neck: Supple. Abdomen: Soft, nontender, nondistended. Extremities: Right groin with dressing clean dry and intact. Right lower extremity with dressing clean dry and intact. Foot is warm to touch with good capillary refill. Distal tips second and third fourth toes with dry gangrene. Right lower extremity warm to the touch with good capillary refill, distal tip of second, third, and fourth toes with dry gangrene. Neurological: No focal deficits. - Labs CBC & Chem 7: 05/31/23 07:37 05/31/23 07:37 Labs: Abnormal Lab Results - Last 24 Hours (Table) 05/30/23 05/30/23 05/30/23 Range/Units 16:01 16:30 20:50 RBC (3.80-5.40) m/uL Hgb (11.4-16.0) gm/dL Hct (34.0-46.0) % RDW (11.5-15.5) % Lymphocytes # (1.0-4.8) k/uL Monocytes # (0-1.0) k/uL Sodium (137-145) mmol/L BUN (7-17) mg/dL POC Glucose (mg/dL) 65 L 115 H 206 H (70-110) mg/dL Calcium (8.4-10.2) mg/dL 05/31/23 05/31/23 05/31/23 Range/Units 05:43 07:37 07:37 RBC 3.24 L (3.80-5.40) m/uL Hgb 8.6 L (11.4-16.0) gm/dL Hct 27.7 L (34.0-46.0) % RDW 17.3 H (11.5-15.5) % Lymphocytes # 0.6 L (1.0-4.8) k/uL Monocytes # 1.9 H (0-1.0) k/uL Sodium 136 L (137-145) mmol/L BUN 6 L (7-17) mg/dL POC Glucose (mg/dL) 124 H (70-110) mg/dL Calcium 6.8 L (8.4-10.2) mg/dL Microbiology - Last 24 Hours (Table) 05/28/23 16:15 Blood Culture - Preliminary Blood 05/28/23 16:30 Blood Culture - Preliminary Blood 05/28/23 18:06 Gram Stain - Preliminary Abdomen Wound Culture - Preliminary Gram Neg Bacilli 05/28/23 18:06 Gram Stain - Preliminary Leg - Right Wound Culture - Preliminary Gram Neg Bacilli Assessment and Plan Assessment: 1. Right lower extremity infected wound status post excisional debridement 2. Right groin wound status post hematoma evacuation 3. Hypokalemia 4. 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 History of left external iliac artery occlusion 6. Coronary artery disease status post stenting mid RCA 04/04/2023 9. History of DVTs 10. Diabetes mellitus 11. History CVA Plan: 1. May have consistent carbohydrate diet 2. May resume eliquis 3. Consult to cardiology for cardiac clearance for possible right [id number] amputation and recommendations on holding Eliquis and Plavix 4. Continue antibiotics per recommendations from infectious disease 5. Local wound care to right groin Due to extent of wound and poor tissue quality there is lack of adequate flap potential for [id number] amputation and recommending [id number] amputation. Timing to be determined pending further discussion with patient and son as well as cardiology. Will need to determine if Plavix can be held otherwise patient will need to undergo general anesthesia for procedure versus regional block. Discussed with cardiology, will hold Plavix and start aspirin 3 25 mg daily. Tentatively Plan for right [id number] amputation 06/07/2023. Comfort prosthetics reached, plan for Lilian to come speak with patient on Saturday regarding amputation and prosthetic. Thank you for this consultation, we will continue to follow The impression and plan of care has been dictated as directed. I performed a history and examination of this patient, discussed the same with the dictator. I agree with the dictator's note ,documented as a scribe. Any additional findings or plans will be noted.
[2023-05-31] MEDS: COLLAGENASE 250 UNIT/GM OINTMENT 30 GM TUBE TOPICAL SCH (10:02)
[2023-05-31] MEDS: APIXABAN 5 MG TAB PO SCH ×2 (10:50→20:04)
--- NOTE | 2023-05-31 11:17 | P.CRDCN ---
History of Present Illness Consult date: 05/31/23 Reason for Consult (text): Cardiac clearance for AKA, recommendations for anticoagulation/Plavix History of present illness: HISTORY OF PRESENT ILLNESS: This is a 63-year-old female with a past medical history significant for coronary artery disease with recent stenting of the mid RCA on 04/01/2023, postprocedural hematoma, diabetes, DVT, peripheral arterial disease, and nonhealing right lower extremity wound. Patient follows in the office with Dr. Bill. We have been asked to see the patient in consultation for cardiac clearance for AKA and recommendations for anticoagulation/Plavix. Yesterday, patient underwent the debridement of a right lower extremity wound. Patient is tentatively scheduled for AKA next week with vascular surgery. Patient currently denies any chest pain or pressure. She denies shortness of breath. She states she feels tired and she has pain in her right lower extremity. She denies dizziness or lightheadedness. Vital signs are stable. WBC 9.4, hemoglobin 8.6, platelet count 236. Sodium 136 otherwise electrolytes are normal. Creatinine 0.64. Current home cardiac medications include Eliquis 5mg BID, Plavix 75 mg daily, Farxiga 10 mg dialy, Nitrostat as needed, potassium chloride 10 mEq twice daily, metoprolol tartrate 25 mg twice a day, lisinopril 5 mg daily, and rosuvastatin 20 mg daily Most recent echocardiogram obtained in March 2023 revealed ejection fraction 40-45% with mild mitral regurgitation and mild pulmonic regurgitation. REVIEW OF SYSTEMS: At the time of my exam: CONSTITUTIONAL: Denies fever or chills. Reports generalized fatigue. HEENT: Denies blurred vision, vision changes, or eye pain. Denies hemoptysis CARDIOVASCULAR: Denies chest pain. Denies orthopnea. Denies PND. Denies palpitations RESPIRATORY: Denies shortness of breath. GASTROINTESTINAL: Denies abdominal pain. Denies nausea or vomiting. HEMATOLOGIC: Denies bleeding disorders. GENITOURINARY: Denies any blood in urine. SKIN: Denies pruitis. Denies rash. PHYSICAL EXAM: VITAL SIGNS: Reviewed. GENERAL: Well-developed in no acute distress. HEENT: Head is normocephalic. Pupils are equal, round. Sclerae anicteric. Mucous membranes of the mouth are moist. Neck supple. No JVD or thyromegaly LUNGS: Respirations even and unlabored. Lungs essentially clear to auscultation bilaterally. HEART: Regular rate and rhythm. S1 and S2 heard. ABDOMEN: Soft. Nondistended. Nontender. EXTREMITIES: Dressing to right lower extremity noted. Dry gangrene noted on the distal second third and fourth toes right. NEUROLOGIC: Awake and alert. Oriented x 3. ASSESSMENT: Nonhealing right lower extremity wound Peripheral arterial disease Coronary artery disease with recent stenting of the RCA, March 2023 History of postprocedural hematoma after cardiac catheterization in March 2023 History of DVT, on anticoagulation outpatient Hypertension Hyperlipidemia Diabetes PLAN: No need to repeat echocardiogram as this was performed last month Resume home cardiac medications Hold Plavix and eliquis for surgery but would request patient be continued on full strength aspirin during the perioperative time due to the recent stent until she can be resumed on Plavix Patient is at high risk for postop complications but no absolute contraindications. Patient may proceed with surgery from a cardiac standpoint. Further recommendations pending patient's course Nurse practitioner note has been reviewed by physician. Signing provider agrees with the documented findings, assessment, and plan of care. Past Medical History Past Medical History: Coronary Artery Disease (CAD), Diabetes Mellitus, Deep Vein Thrombosis (DVT), Vascular Disorder Additional Past Medical History / Comment(s): SKIN CA. 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, NEUROPATHY LEGS & FEET, USING WALKER, .Mutiple DVT,mesentaric thrombosis x2 & PE, PAD, chronic pain syndrome, ddd lumbar region w/radiculopathy, HISTORY OF FALL 01/07/20 , tore rt rotator cuff, pancreatitis, fatty liver, Last Myocardial Infarction Date:: 2010 History of Any Multi-Drug Resistant Organisms: None Reported Past Surgical History: Section, Cholecystectomy, Heart Catheterization, Heart Catheterization With Stent, Orthopedic Surgery, Tonsillectomy, Tubal Ligation Additional Past Surgical History / Comment(s): 11 Stents in left leg, fistula left thigh, full mouth teeth extraction, TRAPEASE VENA CAVA FILTER, carpel tunnel, heart stents x4 rca and lad, tumor removal from uterus. Genital warts removed, INGRID. Skin cancer removed from neck, rt great toe amputated, colonoscopy, rt rotator, left shoulder replacement, cervial fusion, rt calf debridement, rt calf skin graft (May 2023) Past Anesthesia/Blood Transfusion Reactions: No Reported Reaction Date of Last Stent Placement:: Mar 2023 Past Psychological History: Anxiety, Depression Additional Psychological History / Comment(s): Depression r/t health issues. Smoking Status: Current every day smoker Past Alcohol Use History: None Reported Additional Past Alcohol Use History / Comment(s): STARTED SMOKING IN 1988 SMOKES 1/2 PPD Past Drug Use History: None Reported - Past Family History Mother Family Medical History: Cancer, Congestive Heart Failure (CHF), Diabetes Mellitus, Myocardial Infarction ([place]) Additional Family Medical History / Comment(s): UTERINE CANCER Father Family Medical History: Coronary Artery Disease (CAD), Myocardial Infarction ([place]) Additional Family Medical History / Comment(s): Father at age 70. Sister(s) Family Medical History: Myocardial Infarction ([place]) Additional Family Medical History / Comment(s): Patient has one sister with myocardial infarction at age 55. Son(s) Family Medical History: Deep Vein Thrombosis (DVT), Pulmonary Embolus Additional Family Medical History / Comment(s): Patient has 2 sons and one has history of DVT and pulmonary embolism. Medications and Allergies Home Medications Medication Instructions Recorded Confirmed Type Docusate [Colace] 100 mg PO DAILY 11/14/21 05/28/23 History Cyclobenzaprine [Flexeril] 5 mg PO HS PRN 09/06/22 05/28/23 History DULoxetine HCL [Cymbalta] 60 mg PO DAILY 09/06/22 05/28/23 History Ferrous Sulfate [Feosol] 325 mg PO BID 01/08/23 05/28/23 History Rosuvastatin [Crestor] 20 mg PO DAILY 01/08/23 05/28/23 History Ergocalciferol (Vitamin D2) 1,250 mcg PO GUERRERO 04/01/23 05/28/23 History [Drisdol (50,000 Iu)] Melatonin 3 mg PO HS 04/01/23 05/28/23 History Nitroglycerin Sl Tabs [Nitrostat] 0.4 mg SL Q5M PRN 04/01/23 05/28/23 History Omeprazole [PriLOSEC] 20 mg PO DAILY 04/01/23 05/28/23 History Metoprolol Tartrate [Lopressor] 25 mg PO BID #60 tab 04/15/23 05/28/23 Rx lisinopriL [Zestril] 5 mg PO DAILY #30 tab 04/15/23 05/28/23 Rx Potassium Chloride ER [K-Dur 10] 10 meq PO BID 04/22/23 05/28/23 History Gabapentin [Neurontin] 400 mg PO TID #9 cap 05/02/23 05/28/23 Rx HYDROcodone/APAP 7.5-325MG [[place] 1 tab PO QID PRN #12 tab 05/02/23 05/28/23 Rx 7.5-325] INSULIN LISPRO (HumaLOG) [humaLOG] 10 units SQ AC-TID 05/10/23 05/28/23 History INSULIN LISPRO (HumaLOG) [humaLOG] See Protocol SQ AC-TID 05/10/23 05/28/23 History Insulin Glargine,Hum.rec.anlog 34 units SQ HS 05/10/23 05/28/23 History [Lantus Solostar Pen] Collagenase [Santyl Ointment] 1 applic TOPICAL DAILY each 05/18/23 05/28/23 Rx Apixaban [Eliquis] 5 mg PO BID 05/20/23 05/28/23 History Clopidogrel [Plavix] 75 mg PO DAILY 05/20/23 05/28/23 History Dapagliflozin Propanediol [Farxiga] 10 mg PO DAILY 05/20/23 05/28/23 History traMADol HCL 50 mg PO DAILY 05/20/23 05/28/23 History Allergies Allergy/AdvReac Type Severity Reaction Status Date / Time vancomycin Allergy Rash/Hives/and Verified 05/28/23 19:04 vomiting diarrhea/Swelling Physical Exam Vitals: Vital Signs Temp Pulse Pulse Resp BP Pulse Ox 05/31/23 04:00 99.2 F 90 20 151/80 92 L 05/31/23 02:00 84 18 05/31/23 00:00 84 18 144/69 92 L 05/30/23 22:00 95 16 111/64 93 L 05/30/23 21:00 97 16 128/68 96 05/30/23 20:30 89 16 140/62 96 05/30/23 20:00 93 16 152/80 96 05/30/23 19:45 88 16 163/79 96 05/30/23 19:30 99.0 F 83 16 150/77 95 05/30/23 19:07 99.3 F 87 16 148/73 99 05/30/23 18:45 72 14 141/67 94 L 05/30/23 18:30 84 16 140/59 93 L 05/30/23 18:15 83 16 146/60 96 05/30/23 18:00 81 16 140/60 96 05/30/23 17:45 78 16 143/63 99 05/30/23 17:30 97.5 F L 88 16 140/62 100 05/30/23 15:58 98.1 F 75 16 147/72 95 05/30/23 14:00 74 75 16 05/30/23 12:00 99.0 F 74 18 128/57 94 L Intake and Output 05/30/23 05/31/23 05/31/23 22:59 06:59 14:59 Intake Total 850 Output Total 10 1000 Balance 840 -1000 Intake: IV 850 Output: Urine 1000 Estimated Blood Loss 10 Other: Voiding Method External Catheter External Catheter # Voids 1 Weight 93.44 kg Results 05/31/23 07:37 05/31/23 07:37 CBC 05/31/23 Range/Units 07:37 WBC 9.4 (3.8-10.6) k/uL RBC 3.24 L (3.80-5.40) m/uL Hgb 8.6 L (11.4-16.0) gm/dL Hct 27.7 L (34.0-46.0) % Plt Count 236 (150-450) k/uL Comprehensive Metabolic Panel 05/31/23 Range/Units 07:37 Sodium 136 L (137-145) mmol/L Potassium 3.5 (3.5-5.1) mmol/L Chloride 102 (98-107) mmol/L Carbon Dioxide 28 (22-30) mmol/L BUN 6 L (7-17) mg/dL Creatinine 0.64 (0.52-1.04) mg/dL Glucose 97 (74-99) mg/dL Calcium 6.8 L (8.4-10.2) mg/dL Current Medications Generic Name Dose Route Start Last Admin Trade Name Freq PRN Reason Stop Dose Admin Acetaminophen 650 mg 05/28/23 17:56 05/29/23 14:31 Acetaminophen Tab 325 Mg Tab PO 650 mg Q6HR PRN Administration Mild Pain or Fever > 100.5 Hydrocodone Bitart/Acetaminophen 1 each 05/28/23 19:14 05/31/23 06:50 Hydrocodone/Apap 7.5-325mg 1 Each Tab PO 1 each QID PRN Administration Pain Clopidogrel Bisulfate 75 mg 05/29/23 09:00 05/30/23 21:16 Clopidogrel 75 Mg Tab PO 75 mg DAILY [facility] Administration Collagenase 1 applic 05/30/23 10:00 05/30/23 17:43 Collagenase 250 Unit/Gm Ointment 30 Gm Tube TOPICAL Not Given DAILY [facility] Protocol Cyclobenzaprine HCl 5 mg 05/28/23 19:14 05/30/23 21:17 Cyclobenzaprine 5 Mg Tab PO 5 mg HS PRN Administration SLEEP/MUSCLE PAIN Docusate Sodium 100 mg 05/29/23 09:00 05/30/23 08:55 Docusate 100 Mg Cap PO 100 mg DAILY AGNES Administration Duloxetine HCl 60 mg 05/29/23 09:00 05/30/23 08:55 Duloxetine Hcl 60 Mg Capsule.Dr PO 60 mg DAILY AGNES Administration Ergocalciferol 1,250 mcg 06/02/23 19:14 Ergocalciferol 1,250 Mcg (50,000 Iu) Capsule PO GUERRERO AGNES Ferrous Sulfate 325 mg 05/28/23 21:00 05/30/23 21:16 Ferrous Sulfate 325 Mg Tab PO 325 mg BID AGNES Administration Gabapentin 400 mg 05/28/23 22:00 05/30/23 21:16 Gabapentin 400 Mg Cap PO 400 mg TID AGNES Administration Hydromorphone HCl 1 mg 05/28/23 17:56 05/31/23 05:41 Hydromorphone 1 Mg/Ml 1 Ml Syringe IVP 1 mg Q3HR PRN Administration Severe Pain (Scale 7 to 10) Hydromorphone HCl 0.5 mg 05/30/23 22:53 Hydromorphone 0.5 Mg/0.5 Ml Syringe IVP 05/31/23 23:00 Q5M PRN Phase 1 or 2 - Pain Control Sodium Chloride 1,000 mls @ 75 mls/hr 05/28/23 18:00 05/30/23 21:10 Saline 0.9% IV Not Given .[id number] [facility] Cefepime HCl 2 gm/ Sodium 100 mls @ 25 mls/hr 05/30/23 00:00 05/31/23 00:17 Chloride IVPB 25 mls/hr Q8HR AGNES Administration Protocol Daptomycin 300 mg/ Sodium 50 mls @ 100 mls/hr 05/30/23 00:00 05/30/23 23:39 Chloride IVPB 100 mls/hr Q24H AGNES Administration Protocol Lactated Ringer's 1,000 mls @ 20 mls/hr 05/30/23 22:53 05/30/23 23:14 Lactated Ringers IV Not Given .Q24H AGNES Insulin Aspart 10 unit 05/29/23 07:30 05/31/23 06:50 Insulin Aspart (Novolog) 100 Unit/Ml Vial SQ 10 unit AC-TID AGNES Administration Insulin Detemir 34 unit 05/29/23 21:00 05/30/23 21:16 Insulin Detemir (Levemir) 100 Unit/Ml Syr SQ 34 unit HS AGNES Administration Lisinopril 5 mg 05/29/23 09:00 05/30/23 08:54 Lisinopril 5 Mg Tab PO 5 mg DAILY AGNES Administration Melatonin 3 mg 05/28/23 21:00 05/30/23 21:17 Melatonin 3 Mg Tablet PO 3 mg HS AGNES Administration Metoprolol Tartrate 25 mg 05/28/23 21:00 05/30/23 21:17 Metoprolol Tartrate 25 Mg Tab PO 25 mg BID AGNES Administration Miscellaneous Information 1 each 05/30/23 11:24 Potassium Replacement Protocol 1 Each Misc MISCELLANE DAILY PRN Per Protocol Protocol Naloxone HCl 0.2 mg 05/28/23 17:56 Naloxone 0.4 Mg/Ml 1 Ml Vial IV Q2M PRN Opioid Reversal Nitroglycerin 0.4 mg 05/28/23 19:14 Nitroglycerin Sl Tabs 0.4 Mg Tab SUBLINGUAL Q5M PRN Chest Pain Pantoprazole Sodium 40 mg 05/29/23 09:00 05/30/23 08:54 Pantoprazole 40 Mg Tablet PO 40 mg DAILY AGNES Administration Potassium Chloride 10 meq 05/28/23 21:00 05/30/23 21:16 Potassium Chloride Er 10 Meq Tab.Er.Prt PO 10 meq BID AGNES Administration Intake and Output 05/30/23 05/31/23 05/31/23 22:59 06:59 14:59 Intake Total 850 Output Total 10 1000 Balance 840 -1000 Intake: IV 850 Output: Urine 1000 Estimated Blood Loss 10 Other: Voiding Method External Catheter External Catheter # Voids 1 Weight 93.44 kg 05/31/23 07:37 05/31/23 07:37
[2023-05-31 11:26] LABS: Glucose,Whole Blood 49 mg/dL (70-110)
[2023-05-31 11:43] LABS: Glucose,Whole Blood 53 mg/dL (70-110)
[2023-05-31 12:03] LABS: Glucose,Whole Blood 96 mg/dL (70-110)
--- NOTE | 2023-05-31 14:43 | P.PN ---
Subjective Progress Note Date: 05/31/23 HISTORY OF PRESENT ILLNESS This is a 63-year-old female patient of mine with history of CAD with multiple cardiac stents in mid RCA, mid LAD, obtuse marginal branch and followed by Dr. Bill closely, peripheral artery disease with previous stenting done as well has amputation of the right great toe secondary to osteomyelitis, CVA with no residual deficits, hypertension, COPD, diabetes mellitus type 2, previous multiple DVT and PE requiring chronic anticoagulation on eliquis, history of GI bleed secondary to antral gastritis, esophagitis, vitamin D deficiency, autono margot hypotension on midodrine, history of left humerus fracture. resume with patient April 02 through April 15 at which time she presented to the hospital due to right second and fifth toe ischemic change. A CT angiogram showed evidence of occlusion of the right superficial femoral artery and 2 occluded segments 1 in the mid thigh about 3 cm and another into the right popliteal artery at 13 cm length, occlusion of the right iliac artery into the common femoral artery. Patient was seen in consultation by vascular surgery. Arterial ultrasound showed lower extremity abnormal on the right with HERMINIA suggests severe atherosclerotic disease. Critical stenosis not excluded. Plan for open bypass surgery with vascular surgery was made but a cardiology consult was requested. Patient was seen by Dr. Bill and had chest pain complaint and Due to critical in-stent restenosis and subsequently underwent cardiac catheterization which revealed critical in-stent restenosis of the RCA and Dr. Bill present performed stenting of the RCA. There was also intermediate disease in the first obtuse marginal branch of the left circumflex, intermediate disease involving the LAD and mildly elevated left sided filling pressures. Access was obtained from the right groin. Unfortunately following removal of the sheath, patient developed a significant hematoma to the right groin into the right pelvic area measuring up to 11.9 cm requiring ICU management, transfusion of packed RBCs and vasopressors for brief period along with IV fluid resuscitation. Patient was stabilized and discharged to home with home care but she returned with worsening wounds, hypotension with blood pressure of 84/57, leukocytosis of 26. She was seen by multiple consultants including wound care, infectious disease, vascular surgery. Patient underwent right common femoral to tibial vein bypass with debridement of a right exposed Achilles tendon heel, second third and fourth toes of the right foot and drainage of right inguinal hematoma with wound VAC with subsequent hematoma evacuation on 04/30. Patient was stabili zed and discharged to [facility] for subacute rehab. She returned to the emergency department about few weeks back and she was diagnosed with acute pancreatitis and she was taken off of her gaand she was discharged home because she refused to go back to [facility] and she recently underwent a skin grat to the right achilles lower leg area that was done by Umair Tejeda was Saturday before yesterday and carin was discharged home in a stable condition with a follow up last Saturday and then last and had the home care nurse coming for dressing changes and she was found to have black eschar on the back of her leg with purulent material coming out of her leg and right gron with a split wound where the LITO was and she appeared to have sepsis , she was started on IV Cefepime after obtaining blood cultures and wound cultures and she was admitted to the Hospital with vacular surgery consult along with ID consult 05/29: Patient has been seen by vascular surgery with plan for debridement of the Achilles area with possible amputation tomorrow. Eliquis has been discontinued. Patient has been maintained on Plavix. Blood pressure 149/85, heart rate is in the 70s, afebrile, pulse ox 94% on room air. WBC 11.6, hemoglobin 10.6, platelet count 269. Sodium 138, potassium 3.2 and will be replaced. Creatinine 0.6 BUN 6. Capillary blood glucose running between 85 and 129. Alkaline phosphatase 131. Gram stain from the wound right leg reveals moderate polymorphonuclear leukocytes, many gram-positive cocci and many gram- negative bacilli. Patient has been continued on cefepime 2 g IV piggyback every 12 hours. Patient is followed by infectious disease as well. Consult is in place for wound care center. 05/30: Patient is scheduled for debridement of the right lower extremity wound this afternoon with Dr. Mendoza. Deep cultures are to be obtained. Patient is continued on cefepime and daptomycin per Dr. Sheppard. Fevers are improving. Heart rate is in the 70s and 80s, blood pressure 128/57, pulse ox 94% on room air. WBC 10.3, hemoglobin 9.8, platelet count 234. Sodium 137, potassium 3.2, CO2 36, BUN 7 creatinine 0.67. CBG [id number]. Wound cultures are showing gram- negative bacilli. Blood culture no growth at 48 hours. Patient has been seen by the wound care team with recommendations for Santyl, saline moistened gauze dry gauze to the right groin wound. 05/31: Yesterday, patient underwent a sharp excisional debridement of the right lower extremity wound but due to the extent of the wound, poor tissue quality and lack of adequate flap potential, it has been recommended the patient undergo [id number] amputation. Cardiology has cleared the patient for surgical intervention knowing that she is at high risk but no absolute contraindications. Recommendations are to continue patient on aspirin while plavix on hold. We will plan on Lovenox once eliquis is discontinued prior to surgery. Patient continues to complain of pain to the right ankle foot area. She denies having any chest pain. No shortness of breath. She complains of feeling tired. Repeat blood work reveals WBC 9.4, hemoglobin 8.6, platelet count 236. Sodium 1 36, potassium 3.5, creatinine 0.64. Blood blood glucose this morning prior to lunch was 49. Otherwise blood sugars are running on the lower side in general 65-115. Scheduled NovoLog 10 units with meals will be discontinued and long- acting insulin was decreased. REVIEW OF SYSTEMS Constitutional: positive for fever, No chills, no night sweats. Reports weight loss. Reports weakness, Reports fatigue no lethargy. NO daytime sleepiness. HEENT: No headache. No dizziness. Reports difficulty swallowing. No nasal drainage or congestion. No epistaxis. No sore throat. Lungs: No shortness of breath, cough, no sputum production. No wheezing. Cardiovascular: No chest pain, no lower extremity edema. No palpitations. No paroxysmal nocturnal dyspnea. No orthopnea. No lightheadedness or dizziness. No syncopal episodes. Abdominal: Reports abdominal pain. Reports nausea, no vomiting. no diarrhea. No constipation. No bloody or tarry stools. Reports loss of appetite. Genitourinary: No dysuria, increased frequency, urgency. No urinary retention. Musculoskeletal: No myalgias. positive for muscle weakness, reports balance issues, reports gait dysfunction, reports frequent falls. No back pain. No neck pain. Integumentary: Left achilles with a black eschar and purulent drainaige and right groin with open wound, Right 2nd, 3rd and 5th toes and right big toe amputation Neurologic: No aphasia. No facial droop. No change in mentation. No head injury. No headache. No paralysis. No paresthesia. Psychiatric: Reports depression. Reports anxiety. No mood swings. Endocrine: abnormal blood sugars. positive for weight change. No excessive sweating or thirst. No cold intolerance. PHYSICAL EXAMINATION Gen: This is a 63-year-old female. She is resting in bed and appears to be in no acute distress. HEENT: Head is atraumatic, normocephalic. Pupils equal, round. Sclerae is anicteric. Mucous members of the mouth are somewhat dry. NECK: Supple. No JVD. No lymphadenopathy. No thyromegaly. LUNGS: Clear to auscultation. No wheezes or rhonchi. No intercostal retractions. 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 ABDOMEN: Soft. Bowel sounds are present. No masses. no tenderness. Large hematoma to right pelvis soft, surrounding and dependent ecchymosis. EXTREMITIES: No pedal edema. Right big toe amputation, right 2nd, 3rd, and 5th toe amputaions, right achilles with balck eschar and non viable skin graft. NEUROLOGICAL: Patient is awake, alert and oriented x3. Cranial nerves 2 through 12 are grossly intact. Muscle power 4/5 in the left upper extremity, 4/5 in the right upper extremity, 3/5 in the bilateral lower extremities. DTRs are depressed bilaterally. Neuropathic changes in both feet. ASSESSMENT AND PLAN 1. Right leg infected/failed graft with sepsis. blood cultures, wound cultures and we will start Cefepime 3 gr IVPB Q 8 hours, ID consult, we will continue with IVF and we will repeat Lactic acid in 6 hours.we will consult vascular surgery, infectious disease, wound center. 2. Recent right common femoral to tibial vein bypass with debridement of the right exposed Achilles tendon heel second third and fifth toes of the right foot, also drainage of the right inguinal hematoma post removal of the LITO drain with a split wound in the right groin, we will continue with current treatment as in [place] [facility]1 consult vascular surgery. Continue local wound care per wound Center to groin. 3. Coronary artery disease with recent stent of the RCA due to recent in-stent restenosis. Patient has had previous multiple cardiac stents to the RCA and mid LAD, obtuse marginal branch. Continue patient on Plavix 75 mg daily, Lopressor 25 mg twice daily, Crestor 20 mg daily. 4. Diabetes mellitus type 2 uncontrolled with hyperglycemia and now hypoglycemia as patient is not eating much. Continue NovoLog scale before meals and at bedtime. Lantus will be decreased to 28 units at bedtime. Disc ontinue Novolog 10 units AC meals TID 5. Hyperlipidemia. Continue Atorvastatin 40 mg po daily 6. Chronic DVT and PEs. Continue patient on eliquis 5 mg twice daily. 7. Chronic anemia with recent acute blood loss anemia secondary to hematoma in the right groin/pelvis. Continue patient on ferrous sulfate 325 mg twice daily. 8. Hypertension and hypertensive cardiovascular disease, Continue lisinopril 5 mg daily, Lopressor 25 mg twice daily. 9. Gastroesophageal reflux disease and GI prophylaxis. Continue Pantoprazole 40 mg daily. 10. Diabetic neuropathy. w will continue wit Gabapentin 400 mg po tid. 11. Generalized anxiety disorder, recurrent depression. Continue Cymbalta 60 mg daily. 12. Patient diagnosed with EPI at [facility], critical access hospital. 13. Full code. Impression and plan of care have been directed as dictated by the signing physician. Kerri Kevin nurse practitioner acting as scribe for signing physician. Objective - Vital Signs Vital signs: Vital Signs Temp 98 F 05/31/23 09:15 Pulse 71 05/31/23 10:50 Resp 18 05/31/23 10:50 BP 148/72 05/31/23 10:50 Pulse Ox 92 L 05/31/23 10:50 FiO2 Intake & Output 05/30/23 05/31/23 05/31/23 18:59 06:59 18:59 Intake Total 850 335 Output Total 710 1000 Balance 140 -1000 335 Weight 93.44 kg Intake: IV 850 Oral 335 Output: Urine 700 1000 Estimated Blood Loss 10 Other: Voiding Method External Catheter External Catheter External Catheter # Voids 1 - Labs CBC & Chem 7: 05/31/23 07:37 05/31/23 07:37 Labs: Abnormal Lab Results - Last 24 Hours (Table) 05/30/23 05/30/23 05/30/23 Range/Units 16:01 16:30 20:50 RBC (3.80-5.40) m/uL Hgb (11.4-16.0) gm/dL Hct (34.0-46.0) % RDW (11.5-15.5) % Lymphocytes # (1.0-4.8) k/uL Monocytes # (0-1.0) k/uL Sodium (137-145) mmol/L BUN (7-17) mg/dL POC Glucose (mg/dL) 65 L 115 H 206 H (70-110) mg/dL Calcium (8.4-10.2) mg/dL 05/31/23 05/31/23 05/31/23 Range/Units 05:43 07:37 07:37 RBC 3.24 L (3.80-5.40) m/uL Hgb 8.6 L (11.4-16.0) gm/dL Hct 27.7 L (34.0-46.0) % RDW 17.3 H (11.5-15.5) % Lymphocytes # 0.6 L (1.0-4.8) k/uL Monocytes # 1.9 H (0-1.0) k/uL Sodium 136 L (137-145) mmol/L BUN 6 L (7-17) mg/dL POC Glucose (mg/dL) 124 H (70-110) mg/dL Calcium 6.8 L (8.4-10.2) mg/dL 05/31/23 05/31/23 Range/Units 11:21 11:41 RBC (3.80-5.40) m/uL Hgb (11.4-16.0) gm/dL Hct (34.0-46.0) % RDW (11.5-15.5) % Lymphocytes # (1.0-4.8) k/uL Monocytes # (0-1.0) k/uL Sodium (137-145) mmol/L BUN (7-17) mg/dL POC Glucose (mg/dL) 49 L 53 L (70-110) mg/dL Calcium (8.4-10.2) mg/dL Microbiology - Last 24 Hours (Table) 05/28/23 16:15 Blood Culture - Preliminary Blood 05/28/23 16:30 Blood Culture - Preliminary Blood 05/28/23 18:06 Gram Stain - Preliminary Abdomen Wound Culture - Preliminary Gram Neg Bacilli 05/28/23 18:06 Gram Stain - Preliminary Leg - Right Wound Culture - Preliminary Gram Neg Bacilli
--- NOTE | 2023-05-31 14:57 | P.PN ---
Subjective Progress Note Date: 05/31/23 Principal diagnosis: Right leg wound infection Patient is a 63-year-old female with a past medical history significant for diabetes mellitus peripheral arterial disease coronary disease patient did have PAD and bypass graft with CryoVein right common thromboendarterectomy and right groin hematoma evacuation as well as right Achilles wound debridement and skin graft application patient has been sent to the ER by the home care nurse concerning for infection of the right lower extremity, patient is status post Sharp excisional debridement right lower extremity wound measuring 23 x 9 x 2.5 cm to muscle with undermining at the 12 o'clock position of 8.7 cm completed on 05/30/2023 On today's evaluation that is 05/31/2023, the patient denies any fever or any chills, the patient is breathing comfortably on room air and no need for supplemental oxygen, the patient denies any chest pain or cough, patient denies any nausea/vomiting or diarrhea and no abdominal pain, the patient pain to the right lower extremity is currently controlled Patient white count normalized to 9.4, creatinine 0.64 and cultures are currently growing gram-negative bacilli Objective - Vital Signs Vital signs: Vital Signs Temp 98 F 05/31/23 09:15 Pulse 71 05/31/23 10:50 Resp 18 05/31/23 10:50 BP 148/72 05/31/23 10:50 Pulse Ox 92 L 05/31/23 10:50 FiO2 Intake & Output 05/30/23 05/31/23 05/31/23 18:59 06:59 18:59 Intake Total 850 Output Total 710 1000 Balance 140 -1000 Weight 93.44 kg Intake: IV 850 Output: Urine 700 1000 Estimated Blood Loss 10 Other: Voiding Method External Catheter External Catheter External Catheter # Voids 1 - Exam GENERAL DESCRIPTION: Middle-aged female lying in bed in no distress RESPIRATORY SYSTEM: Unlabored breathing , clear to auscultation anteriorly HEART: S1 S2 regular rate and rhythm , ABDOMEN: Soft , no tenderness EXTREMITIES: Right leg wound is currently dressed - Labs CBC & Chem 7: 05/31/23 07:37 05/31/23 07:37 Labs: Abnormal Lab Results - Last 24 Hours (Table) 05/30/23 05/30/23 05/30/23 Range/Units 16:01 16:30 20:50 RBC (3.80-5.40) m/uL Hgb (11.4-16.0) gm/dL Hct (34.0-46.0) % RDW (11.5-15.5) % Lymphocytes # (1.0-4.8) k/uL Monocytes # (0-1.0) k/uL Sodium (137-145) mmol/L BUN (7-17) mg/dL POC Glucose (mg/dL) 65 L 115 H 206 H (70-110) mg/dL Calcium (8.4-10.2) mg/dL 05/31/23 05/31/23 05/31/23 Range/Units 05:43 07:37 07:37 RBC 3.24 L (3.80-5.40) m/uL Hgb 8.6 L (11.4-16.0) gm/dL Hct 27.7 L (34.0-46.0) % RDW 17.3 H (11.5-15.5) % Lymphocytes # 0.6 L (1.0-4.8) k/uL Monocytes # 1.9 H (0-1.0) k/uL Sodium 136 L (137-145) mmol/L BUN 6 L (7-17) mg/dL POC Glucose (mg/dL) 124 H (70-110) mg/dL Calcium 6.8 L (8.4-10.2) mg/dL 05/31/23 05/31/23 Range/Units 11:21 11:41 RBC (3.80-5.40) m/uL Hgb (11.4-16.0) gm/dL Hct (34.0-46.0) % RDW (11.5-15.5) % Lymphocytes # (1.0-4.8) k/uL Monocytes # (0-1.0) k/uL Sodium (137-145) mmol/L BUN (7-17) mg/dL POC Glucose (mg/dL) 49 L 53 L (70-110) mg/dL Calcium (8.4-10.2) mg/dL Microbiology - Last 24 Hours (Table) 05/28/23 16:15 Blood Culture - Preliminary Blood 05/28/23 16:30 Blood Culture - Preliminary Blood 05/28/23 18:06 Gram Stain - Preliminary Abdomen Wound Culture - Preliminary Gram Neg Bacilli 05/28/23 18:06 Gram Stain - Preliminary Leg - Right Wound Culture - Preliminary Gram Neg Bacilli Assessment and Plan (1) Cellulitis of right leg Current Visit: Yes Status: Acute Code(s): L03.115 - CELLULITIS OF RIGHT LOWER LIMB SNOMED Code(s): 68070153555537783 (2) Leg wound, right Current Visit: Yes Status: Acute Code(s): S81.801A - UNSPECIFIED OPEN WOUND, RIGHT LOWER LEG, INITIAL ENCOUNTER SNOMED Code(s): 685144166 Plan: 1patient presented to hospital with sepsis in this patient with a fever elevated white count source likely her right lower extremity infected wound and second cellulitis likely from gram-positive skin jesus however the patient rec ently has grown Pseudomonas from the area could be related to the same pathogen. 2patient did have a vancomycin allergy that will limit the number of antibiotics safe to use. 3patient is status post surgical debridement and deep culture, with initial culture growing gram-negative bacilli 4-we will discontinue daptomycin and continue the patient cefepime while waiting for the cultures to finalize Dictation was produced using [employer] dictation software. please excuse any grammatical, word or spelling errors. Time with Patient: Less than 30
[2023-05-31] MEDS: HYDROmorphone 0.5 MG/0.5 ML SYRINGE IVP PRN ×2 (15:55→20:04)
[2023-05-31 16:20] LABS: Glucose,Whole Blood 252 mg/dL (70-110)
[2023-05-31 19:35] LABS: Glucose,Whole Blood 323 mg/dL (70-110)
[2023-05-31] MEDS: MELATONIN 3 MG TABLET PO SCH (20:04)
[2023-05-31] MEDS: INSULIN DETEMIR (LEVEMIR) 100 UNIT/ML SYR SQ SCH (20:48)
[2023-06-01] MEDS: LACTATED RINGERS 1,000 ML IV SCH (02:20)
[2023-06-01] MEDS: HYDROmorphone 0.5 MG/0.5 ML SYRINGE IVP PRN ×7 (05:00→23:01)
[2023-06-01 06:01] LABS: Glucose,Whole Blood 150 mg/dL (70-110)
[2023-06-01] MEDS: lisinopriL 5 MG TAB PO SCH (08:01)
[2023-06-01] MEDS: FERROUS SULFATE 325 MG TAB PO SCH ×2 (08:01→19:49)
[2023-06-01] MEDS: POTASSIUM CHLORIDE ER 10 MEQ TAB.ER.PRT PO SCH ×2 (08:01→19:48)
[2023-06-01] MEDS: DOCUSATE 100 MG CAP PO SCH (08:01)
[2023-06-01] MEDS: GABAPENTIN 400 MG CAP PO SCH ×3 (08:01→19:48)
[2023-06-01] MEDS: METOPROLOL TARTRATE 25 MG TAB PO SCH ×2 (08:01→19:48)
[2023-06-01] MEDS: DULoxetine HCL 60 MG CAPSULE.DR PO SCH (08:01)
[2023-06-01] MEDS: APIXABAN 5 MG TAB PO SCH ×2 (08:01→19:48)
[2023-06-01] MEDS: HYDROcodone/APAP 7.5-325MG 1 EACH TAB PO PRN (08:01)
[2023-06-01] MEDS: PANTOPRAZOLE 40 MG TABLET PO SCH (08:01)
[2023-06-01] MEDS: CYCLOBENZAPRINE 5 MG TAB PO PRN (08:01)
[2023-06-01] MEDS: ASPIRIN 325 MG TAB PO SCH (08:01)
[2023-06-01] MEDS: CEFEPIME 2 GM in SODIUM CHLORIDE 0.9% 100 ML IVPB SCH (08:03)
[2023-06-01] MEDS: SODIUM CHLORIDE 0.9% 1,000 ML IV SCH (08:03)
[2023-06-01] MEDS ORDERED: oxyCODONE-APAP 7.5-325MG 1 EACH TAB PO PRN ×2 (09:10→09:11)
--- NOTE | 2023-06-01 09:19 | P.PN ---
Subjective Progress Note Date: 06/01/23 Principal diagnosis: Right lower extremity arterial occlusive disease with nonhealing wound Patient is awake alert, she complains of pain not well controlled right lower extremity. Objective - Vital Signs Vital signs: Vital Signs Temp 98.1 F 06/01/23 04:00 Pulse 66 06/01/23 04:00 Resp 19 06/01/23 04:00 BP 130/69 06/01/23 04:00 Pulse Ox 98 06/01/23 04:00 FiO2 Intake & Output 05/31/23 06/01/23 06/01/23 18:59 06:59 18:59 Intake Total 560 0 Output Total 750 600 Balance -190 -600 Intake: Oral 560 0 Output: Urine 750 600 Other: Voiding Method External Catheter External Catheter - Exam The right lower extremity wounds are unchanged. I discussed with the patient the need for amputation most likely to above the knee level. With a long discussion in reference to how this will affect her life and how the postoperative rehabilitation and eventual fitting for prosthetic would be addressed. Patient appeared to be much more comfortable with the situation although obviously disappointed that amputation will be needed. All questions were answered to patient's satisfaction. - Labs CBC & Chem 7: 05/31/23 07:37 05/31/23 07:37 Labs: Abnormal Lab Results - Last 24 Hours (Table) 05/31/23 05/31/23 05/31/23 Range/Units 11:21 11:41 16:18 POC Glucose (mg/dL) 49 L 53 L 252 H (70-110) mg/dL 05/31/23 06/01/23 Range/Units 19:33 05:59 POC Glucose (mg/dL) 323 H 150 H (70-110) mg/dL Microbiology - Last 24 Hours (Table) 05/30/23 17:10 Gram Stain - Preliminary Other - Other 05/28/23 16:15 Blood Culture - Preliminary Blood 05/28/23 16:30 Blood Culture - Preliminary Blood 05/28/23 18:06 Gram Stain - Final Leg - Right Wound Culture - Final Proteus mirabilis Enterococcus faecalis Pseudomonas aeruginosa 05/28/23 18:06 Gram Stain - Final Abdomen Wound Culture - Final Pseudomonas aeruginosa Enterococcus faecalis Assessment and Plan Assessment: Irreversible ischemia of the right lower extremity. Plan: Will increase her pain medications for more comfort. We await cardiology evaluation regarding discontinuation of anticoagulants in light of recent cardiac intervention. Would prefer to have the patient off as much anticoagulation as possible prior to any surgical intervention. Time with Patient: Less than 30
[2023-06-01] MEDS: COLLAGENASE 250 UNIT/GM OINTMENT 30 GM TUBE TOPICAL SCH (09:33)
[2023-06-01] MEDS ORDERED: HYDROmorphone 0.5 MG/0.5 ML SYRINGE IVP STA (09:42)
--- NOTE | 2023-06-01 11:18 | P.PN ---
Subjective This is a pleasant 63 years old female with multiple medical problems as below patient presents because of right leg cellulitis and deep wound on her right leg status post debridement, she has very deep wound that it and almost half of her right leg and is painful with some purulent discharge. Patient kept on cefepime. Vascular surgery team on the case and they already have planned for above knee amputation on 06/07. They consulted lead manufacturing engineering tech for holding on liquids and Plavix before the procedure to decrease the chances of bleeding. Currently also patient's on normal saline 75 mL/h and lead manufacturing engineering tech added aspirin with plan to hold Plavix. We will defer the management of anticoagulation to cardiology team. Wound culture was strong and gram-negative 2 bacilli pending final results. Previous wound culture growing Proteus and enterococcus faecalis and pseudomonas Objective - Vital Signs Vital signs: Vital Signs Temp 97.8 F 06/01/23 08:00 Pulse 80 06/01/23 08:00 Resp 20 06/01/23 08:00 BP 150/77 06/01/23 08:00 Pulse Ox 93 L 06/01/23 08:00 FiO2 Intake & Output 05/31/23 06/01/23 06/01/23 18:59 06:59 18:59 Intake Total 560 0 Output Total 750 600 Balance -190 -600 Intake: Oral 560 0 Output: Urine 750 600 Other: Voiding Method External Catheter External Catheter External Catheter - Exam GENERAL: The patient is alert and oriented x3, not in any acute distress. Well developed, well nourished. HEENT: Pupils are round and equally reacting to light. EOMI. No scleral icterus. No conjunctival pallor. Normocephalic, atraumatic. No pharyngeal erythema. No thyromegaly. CARDIOVASCULAR: S1 and S2 present. No murmurs, rubs, or gallops. PULMONARY: Chest is clear to auscultation, no wheezing , no crackles. ABDOMEN: Soft, nontender, nondistended, normoactive bowel sounds. No palpable organomegaly. MUSCULOSKELETAL: No joint swelling or deformity. -EXTREMITIES: No cyanosis, clubbing, or pedal edema. Severe deep wound covering almost the back for right leg. With minimal surrounding cellulitis NEUROLOGICAL: Gross neurological examination did not reveal any focal deficits. SKIN: No rashes. no petechiae. - Labs CBC & Chem 7: 05/31/23 07:37 05/31/23 07:37 Labs: Abnormal Lab Results - Last 24 Hours (Table) 05/31/23 05/31/23 05/31/23 Range/Units 11:21 11:41 16:18 POC Glucose (mg/dL) 49 L 53 L 252 H (70-110) mg/dL 05/31/23 06/01/23 Range/Units 19:33 05:59 POC Glucose (mg/dL) 323 H 150 H (70-110) mg/dL Microbiology - Last 24 Hours (Table) 05/30/23 17:10 Gram Stain - Preliminary Other - Other Wound Culture - Preliminary Gram Neg Bacilli Gram Neg Bacilli#2 05/28/23 16:15 Blood Culture - Preliminary Blood 05/28/23 16:30 Blood Culture - Preliminary Blood 05/28/23 18:06 Gram Stain - Final Leg - Right Wound Culture - Final Proteus mirabilis Enterococcus faecalis Pseudomonas aeruginosa 05/28/23 18:06 Gram Stain - Final Abdomen Wound Culture - Final Pseudomonas aeruginosa Enterococcus faecalis Assessment and Plan Assessment: Severe right leg cellulitis and deep wound status post debridement with planned for AKA by vascular surgery team on 06/07. Recommendation. 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 The groin wound status post hematoma excision. Recent right common femoral to tibial bypass surgery Coronary artery disease status post stent to RCA. Obesity with BMI of 32.2. Plan: Patient remains on cefepime Follow-up wound culture final results Vascular surgery team on the case with the plan for AKA on 06/07 Cardiology team on the case to help with anticoagulation management and antiplatelet treatment. Continue with normal saline 75 mL/h. pain management Labs and medication were reviewed.. Continue same treatment. Continue with symptomatic treatment. Resume home medication. Monitor labs and vitals. DVT and GI prophylaxis. Further recommendations as per clinical course of the patient DVT prophylaxis: eliquis GI Prophylaxis: Ppi PT/OT: Pending Prognosis is guarded
[2023-06-01 11:26] LABS: Glucose,Whole Blood 208 mg/dL (70-110)
[2023-06-01] MEDS ORDERED: DEXTROSE 50% SYRINGE 50 ML IVP PRN (11:30)
[2023-06-01] MEDS: INSULIN ASPART (NovoLOG) 100 UNIT/ML VIAL SQ SCH ×3 (11:38→19:51)
--- NOTE | 2023-06-01 13:29 | P.PN ---
Subjective Progress Note Date: 06/01/23 Principal diagnosis: Right leg wound infection Patient is a 63-year-old female with a past medical history significant for diabetes mellitus peripheral arterial disease coronary disease patient did have PAD and bypass graft with CryoVein right common thromboendarterectomy and right groin hematoma evacuation as well as right Achilles wound debridement and skin graft application patient has been sent to the ER by the home care nurse concerning for infection of the right lower extremity, patient is status post Sharp excisional debridement right lower extremity wound measuring 23 x 9 x 2.5 cm to muscle with undermining at the 12 o'clock position of 8.7 cm completed on 05/30/2023 On today's evaluation that is 06/01/2023, the patient remains to be afebrile, the patient is breathing comfortably on room air and denies any shortness of breath, the patient denies any chest pain or cough, patient denies Abdominal pain and no nausea/vomiting or diarrhea , the patient pain to the right lower extremity is controlled with the current medication Patient white count normalized to 9.4, creatinine 0.64 as of yesterday and cultures are currently growing Pseudomonas enterococcus and Proteus Objective - Vital Signs Vital signs: Vital Signs Temp 98.2 F 06/01/23 11:56 Pulse 65 06/01/23 11:56 Resp 18 06/01/23 11:56 BP 117/68 06/01/23 11:56 Pulse Ox 95 06/01/23 11:56 FiO2 Intake & Output 05/31/23 06/01/23 06/01/23 18:59 06:59 18:59 Intake Total 560 225 Output Total 750 600 Balance -190 -375 Intake: Oral 560 225 Output: Urine 750 600 Other: Voiding Method External Catheter External Catheter External Catheter - Exam GENERAL DESCRIPTION: Middle-aged female lying in bed in no distress RESPIRATORY SYSTEM: Unlabored breathing , clear to auscultation anteriorly HEART: S1 S2 regular rate and rhythm , ABDOMEN: Soft , no tenderness EXTREMITIES: Right leg wound is currently dressed - Labs CBC & Chem 7: 05/31/23 07:37 05/31/23 07:37 Labs: Abnormal Lab Results - Last 24 Hours (Table) 05/31/23 05/31/23 06/01/23 Range/Units 16:18 19:33 05:59 POC Glucose (mg/dL) 252 H 323 H 150 H (70-110) mg/dL 06/01/23 Range/Units 11:18 POC Glucose (mg/dL) 208 H (70-110) mg/dL Microbiology - Last 24 Hours (Table) 05/30/23 17:10 Gram Stain - Preliminary Other - Other Wound Culture - Preliminary Gram Neg Bacilli Gram Neg Bacilli#2 05/28/23 16:15 Blood Culture - Preliminary Blood 05/28/23 16:30 Blood Culture - Preliminary Blood 05/28/23 18:06 Gram Stain - Final Leg - Right Wound Culture - Final Proteus mirabilis Enterococcus faecalis Pseudomonas aeruginosa 05/28/23 18:06 Gram Stain - Final Abdomen Wound Culture - Final Pseudomonas aeruginosa Enterococcus faecalis Assessment and Plan (1) Cellulitis of right leg Current Visit: Yes Status: Acute Code(s): L03.115 - CELLULITIS OF RIGHT LOWER LIMB SNOMED Code(s): 66947612126350703 (2) Leg wound, right Current Visit: Yes Status: Acute Code(s): S81.801A - UNSPECIFIED OPEN WOUND, RIGHT LOWER LEG, INITIAL ENCOUNTER SNOMED Code(s): 602045073 Plan: 1patient presented to hospital with sepsis in this patient with a fever elevated white count source likely her right lower extremity infected wound and second cellulitis likely from gram-positive skin jesus however the patient recently has grown Pseudomonas from the area could be related to the same pathogen. 2patient did have a vancomycin allergy that will limit the number of antibiotics safe to use. 3patient is status post surgical debridement and deep culture, with initial culture growing Pseudomonas enterococcus and Proteus 4-we will discontinue cefepime , unfortunately unable to use Zosyn as the Proteus is intermediate to it we will switch her over to meropenem and monitor clinical course closely Dictation was produced using [email or web address] dictation software. please excuse any grammatical, word or spelling errors. Time with Patient: Less than 30
[2023-06-01] MEDS: MEROPENEM 1 GM in SODIUM CHLORIDE 0.9% 100 ML IVPB SCH ×2 (15:15→23:01)
[2023-06-01 16:23] LABS: Glucose,Whole Blood 197 mg/dL (70-110)
[2023-06-01 19:27] LABS: Glucose,Whole Blood 273 mg/dL (70-110)
[2023-06-01] MEDS: INSULIN DETEMIR (LEVEMIR) 100 UNIT/ML SYR SQ SCH (19:49)
[2023-06-01] MEDS: MELATONIN 3 MG TABLET PO SCH (19:49)
[2023-06-02] MEDS: LACTATED RINGERS 1,000 ML IV SCH (00:12)
[2023-06-02] MEDS: HYDROcodone/APAP 7.5-325MG 1 EACH TAB PO PRN ×5 (00:31→22:52)
[2023-06-02] MEDS: SODIUM CHLORIDE 0.9% 1,000 ML IV SCH ×2 (01:56→07:55)
[2023-06-02] MEDS: HYDROmorphone 0.5 MG/0.5 ML SYRINGE IVP PRN ×7 (02:17→22:10)
[2023-06-02 05:35] LABS: Glucose,Whole Blood 119 mg/dL (70-110)
[2023-06-02] MEDS: INSULIN ASPART (NovoLOG) 100 UNIT/ML VIAL SQ SCH ×4 (06:18→22:09)
[2023-06-02] MEDS: ASPIRIN 325 MG TAB PO SCH (07:54)
[2023-06-02] MEDS: FERROUS SULFATE 325 MG TAB PO SCH ×2 (07:54→22:08)
[2023-06-02] MEDS: POTASSIUM CHLORIDE ER 10 MEQ TAB.ER.PRT PO SCH ×2 (07:54→22:09)
[2023-06-02] MEDS: DOCUSATE 100 MG CAP PO SCH (07:54)
[2023-06-02] MEDS: lisinopriL 5 MG TAB PO SCH (07:55)
[2023-06-02] MEDS: PANTOPRAZOLE 40 MG TABLET PO SCH (07:55)
[2023-06-02] MEDS: DULoxetine HCL 60 MG CAPSULE.DR PO SCH (07:55)
[2023-06-02] MEDS: GABAPENTIN 400 MG CAP PO SCH ×3 (07:55→22:09)
[2023-06-02] MEDS: APIXABAN 5 MG TAB PO SCH ×2 (07:55→22:08)
[2023-06-02] MEDS: MEROPENEM 1 GM in SODIUM CHLORIDE 0.9% 100 ML IVPB SCH ×2 (07:55→15:10)
[2023-06-02] MEDS: METOPROLOL TARTRATE 25 MG TAB PO SCH ×2 (07:55→22:09)
[2023-06-02] MEDS: COLLAGENASE 250 UNIT/GM OINTMENT 30 GM TUBE TOPICAL SCH (08:06)
--- NOTE | 2023-06-02 10:10 | P.PN ---
Subjective This is a pleasant 63 years old female with multiple medical problems as below patient presents because of right leg cellulitis and deep wound on her right leg status post debridement, she has very deep wound that it and almost half of her right leg and is painful with some purulent discharge. Patient kept on cefepime. Vascular surgery team on the case and they already have planned for above knee amputation on 06/07. They consulted waste reduction coordinator for holding on liquids and Plavix before the procedure to decrease the chances of bleeding. Currently also patient's on normal saline 75 mL/h and waste reduction coordinator added aspirin with plan to hold Plavix. We will defer the management of anticoagulation to cardiology team. Wound culture was strong and gram-negative 2 bacilli pending final results. Previous wound culture growing Proteus and enterococcus faecalis and pseudomonas 06/02/2023 Patient with deep and extensive right leg wound posteriorly with surgery team planning for AKA on 06/07. mentation at baseline. No specific complaint. Patient is lethargic. Blood cultures, Proteus, Enterococcus faecalis and pseudomonas. Her antibiotics was adjusted to meropenem. Patient continued on normal sinus 75 ml/h. Cardiology team on the case. Objective - Vital Signs Vital signs: Vital Signs Temp 98.6 F 06/02/23 08:00 Pulse 68 06/02/23 08:00 Resp 18 06/02/23 08:00 BP 127/65 06/02/23 08:00 Pulse Ox 96 06/02/23 08:00 FiO2 Intake & Output 06/01/23 06/02/23 06/02/23 18:59 06:59 18:59 Intake Total 765 465 Output Total 1100 650 750 Balance -335 -650 -285 Intake: Oral 765 465 Output: Urine 1100 650 750 Other: Voiding Method External Catheter External Catheter External Catheter - Exam GENERAL: The patient is alert and oriented x3, not in any acute distress. Well developed, well nourished. HEENT: Pupils are round and equally reacting to light. EOMI. No scleral icterus. No conjunctival pallor. Normocephalic, atraumatic. No pharyngeal erythema. No thyromegaly. CARDIOVASCULAR: S1 and S2 present. No murmurs, rubs, or gallops. PULMONARY: Chest is clear to auscultation, no wheezing , no crackles. ABDOMEN: Soft, nontender, nondistended, normoactive bowel sounds. No palpable organomegaly. MUSCULOSKELETAL: No joint swelling or deformity. -EXTREMITIES: No cyanosis, clubbing, or pedal edema. Severe deep wound covering almost the back for right leg. With minimal surrounding cellulitis NEUROLOGICAL: Gross neurological examination did not reveal any focal deficits. SKIN: No rashes. no petechiae. - Labs CBC & Chem 7: 05/31/23 07:37 05/31/23 07:37 Labs: Abnormal Lab Results - Last 24 Hours (Table) 06/01/23 06/01/23 06/01/23 Range/Units 11:18 16:14 19:26 POC Glucose (mg/dL) 208 H 197 H 273 H (70-110) mg/dL 06/02/23 Range/Units 05:33 POC Glucose (mg/dL) 119 H (70-110) mg/dL Microbiology - Last 24 Hours (Table) 05/30/23 17:10 Gram Stain - Preliminary Other - Other Wound Culture - Preliminary Proteus mirabilis Pseudomonas aeruginosa Assessment and Plan Assessment: Severe right leg cellulitis and deep wound status post debridement with planned for AKA by vascular surgery team on 06/07. Recommendation. 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 The groin wound status post hematoma excision. Recent right common femoral to tibial bypass surgery Coronary artery disease status post stent to RCA. Obesity with BMI of 32.2. Plan: Patient remains on cefepime Follow-up wound culture final results Vascular surgery team on the case with the plan for AKA on 06/07 Cardiology team on the case to help with anticoagulation management and antiplatelet treatment. Continue with normal saline 75 mL/h. pain management Labs and medication were reviewed.. Continue same treatment. Continue with symptomatic treatment. Resume home medication. Monitor labs and vitals. DVT and GI prophylaxis. Further recommendations as per clinical course of the patient DVT prophylaxis: eliquis GI Prophylaxis: Ppi PT/OT: Pending Prognosis is guarded
[2023-06-02 11:24] LABS: Glucose,Whole Blood 190 mg/dL (70-110)
[2023-06-02] MEDS: ERGOCALCIFEROL 1,250 MCG (50,000 IU) CAPSULE PO SCH (15:09)
--- NOTE | 2023-06-02 15:43 | P.PN ---
Subjective Progress Note Date: 06/02/23 Principal diagnosis: Right leg wound infection Patient is a 63-year-old female with a past medical history significant for diabetes mellitus peripheral arterial disease coronary disease patient did have PAD and bypass graft with CryoVein right common thromboendarterectomy and right groin hematoma evacuation as well as right Achilles wound debridement and skin graft application patient has been sent to the ER by the home care nurse concerning for infection of the right lower extremity, patient is status post Sharp excisional debridement right lower extremity wound measuring 23 x 9 x 2.5 cm to muscle with undermining at the 12 o'clock position of 8.7 cm completed on 05/30/2023 On today's evaluation that is 06/02/2023, the patient denies any fever or chills, the patient is breathing comfortably on room air and no need for supplemental oxygen, the patient denies any chest pain or cough, patient denies nausea/vomiting or diarrhea and no abdominal pain, the patient denies any worsening pain to the right lower extremity Patient white count normalized to 9.4, creatinine 0.64 as of 05/31/2023 and no labs drawn today, cultures are currently growing Pseudomonas enterococcus and Proteus Objective - Vital Signs Vital signs: Vital Signs Temp 98.2 F 06/02/23 12:00 Pulse 72 06/02/23 12:00 Resp 18 06/02/23 12:00 BP 128/61 06/02/23 12:00 Pulse Ox 95 06/02/23 12:00 FiO2 Intake & Output 06/01/23 06/02/23 06/02/23 18:59 06:59 18:59 Intake Total 765 575 Output Total 1100 650 750 Balance -263 -650 -175 Intake: Oral 765 575 Output: Urine 1100 650 750 Other: Voiding Method External Catheter External Catheter External Catheter - Exam GENERAL DESCRIPTION: Middle-aged female lying in bed in no distress RESPIRATORY SYSTEM: Unlabored breathing , clear to auscultation anteriorly HEART: S1 S2 regular rate and rhythm , ABDOMEN: Soft , no tenderness EXTREMITIES: Right leg wound is currently dressed - Labs CBC & Chem 7: 05/31/23 07:37 05/31/23 07:37 Labs: Abnormal Lab Results - Last 24 Hours (Table) 06/01/23 06/01/23 06/02/23 Range/Units 16:14 19:26 05:33 POC Glucose (mg/dL) 197 H 273 H 119 H (70-110) mg/dL 06/02/23 Range/Units 11:22 POC Glucose (mg/dL) 190 H (70-110) mg/dL Microbiology - Last 24 Hours (Table) 05/30/23 17:10 Gram Stain - Final Other - Other Wound Culture - Final Pseudomonas aeruginosa Proteus mirabilis Enterococcus faecalis Assessment and Plan (1) Cellulitis of right leg Current Visit: Yes Status: Acute Code(s): L03.115 - CELLULITIS OF RIGHT LOWER LIMB SNOMED Code(s): 49343108638714234 (2) Leg wound, right Current Visit: Yes Status: Acute Code(s): S81.801A - UNSPECIFIED OPEN WOUND, RIGHT LOWER LEG, INITIAL ENCOUNTER SNOMED Code(s): 208821909 Plan: 1patient presented to hospital with sepsis in this patient with a fever elevated white count source likely her right lower extremity infected wound and second cellulitis likely from gram-positive skin jesus however the patient recently has grown Pseudomonas from the area could be related to the same pathogen. 2patient did have a vancomycin allergy that will limit the number of antibiotics safe to use. 3patient is status post surgical debridement and deep culture, with initial culture growing Pseudomonas enterococcus and Proteus 4-patient to to meropenem and possible plan for amputation per vascular surgery, questions and concerns were answered Dictation was produced using [employer] dictation software. please excuse any grammatical, word or spelling errors. Time with Patient: Less than 30
[2023-06-02 16:12] LABS: Glucose,Whole Blood 235 mg/dL (70-110)
[2023-06-02 20:08] LABS: Glucose,Whole Blood 234 mg/dL (70-110)
[2023-06-02] MEDS: MELATONIN 3 MG TABLET PO SCH (22:09)
[2023-06-02] MEDS: INSULIN DETEMIR (LEVEMIR) 100 UNIT/ML SYR SQ SCH (22:10)
[2023-06-03] MEDS: HYDROmorphone 0.5 MG/0.5 ML SYRINGE IVP PRN ×8 (00:33→23:22)
[2023-06-03] MEDS: MEROPENEM 1 GM in SODIUM CHLORIDE 0.9% 100 ML IVPB SCH ×4 (00:34→23:22)
[2023-06-03] MEDS: LACTATED RINGERS 1,000 ML IV SCH ×2 (01:19→23:19)
[2023-06-03] MEDS: SODIUM CHLORIDE 0.9% 1,000 ML IV SCH ×2 (04:21→23:26)
[2023-06-03] MEDS: HYDROcodone/APAP 7.5-325MG 1 EACH TAB PO PRN ×4 (05:13→18:03)
[2023-06-03 05:51] LABS: Glucose,Whole Blood 137 mg/dL (70-110)
[2023-06-03] MEDS: INSULIN ASPART (NovoLOG) 100 UNIT/ML VIAL SQ SCH ×4 (06:05→21:13)
[2023-06-03 08:07] LABS: Anisocytosis Slight; Basophils % (A) 0 %; Eosinophils # (A) 0.3 k/uL (0-0.7); Eosinophils % (A) 3 %; HCT 30.9 % (34.0-46.0); HGB 9.2 gm/dL (11.4-16.0); Hypochromasia Marked; Lymphocytes # (A) 0.8 k/uL (1.0-4.8); Lymphocytes % (A) 11 %; MCH 25.6 pg (25.0-35.0); MCHC 29.7 g/dL (31.0-37.0); MCV 86.3 fL (80.0-100.0); Mean Platelet Volume 8.5; Monocytes # (A) 0.7 k/uL (0-1.0); Monocytes % (A) 9 %; Neutrophils # (A) 5.9 k/uL (1.3-7.7); Neutrophils % (A) 76 %; Platelet Count 268 k/uL (150-450); Poikilocytosis Slight; RBC 3.58 m/uL (3.80-5.40); RDW 17.1 % (11.5-15.5); WBC 7.8 k/uL (3.8-10.6)
[2023-06-03 08:32] LABS: ALT 11 U/L (4-34); AST 18 U/L (14-36); African American GFR (CKD) >90 (>60 ml/min/1.73 sqM); Alkaline Phosphatase 116 U/L (38-126); Anion Gap 7 mmol/L; Blood Urea Nitrogen 7 mg/dL (7-17); Carbon Dioxide 29 mmol/L (22-30); Chloride 101 mmol/L (98-107); Glucose 99 mg/dL (74-99); Non-African American GFR(CKD) >90 (>60 ml/min/1.73 sqM); Potassium 3.1 mmol/L (3.5-5.1); Sodium 137 mmol/L (137-145); Total Bilirubin 0.4 mg/dL (0.2-1.3)
[2023-06-03] MEDS ORDERED: POTASSIUM CHLORIDE ER 20 MEQ TAB.ER PO STA (08:36)
[2023-06-03] MEDS: FERROUS SULFATE 325 MG TAB PO SCH ×2 (09:07→21:13)
[2023-06-03] MEDS: METOPROLOL TARTRATE 25 MG TAB PO SCH ×2 (09:07→21:12)
[2023-06-03] MEDS: APIXABAN 5 MG TAB PO SCH ×2 (09:07→21:13)
[2023-06-03] MEDS: DULoxetine HCL 60 MG CAPSULE.DR PO SCH (09:07)
[2023-06-03] MEDS: GABAPENTIN 400 MG CAP PO SCH ×3 (09:07→21:13)
[2023-06-03] MEDS: lisinopriL 5 MG TAB PO SCH (09:07)
[2023-06-03] MEDS: POTASSIUM CHLORIDE ER 10 MEQ TAB.ER.PRT PO SCH ×2 (09:07→21:11)
[2023-06-03] MEDS: ASPIRIN 81 MG PO SCH (09:07)
[2023-06-03] MEDS: PANTOPRAZOLE 40 MG TABLET PO SCH (09:07)
[2023-06-03] MEDS: LACTULOSE 20 GM/30 ML CUP PO SCH ×2 (09:11→21:14)
[2023-06-03] MEDS: DOCUSATE 100 MG CAP PO SCH (09:11)
[2023-06-03] MEDS: COLLAGENASE 250 UNIT/GM OINTMENT 30 GM TUBE TOPICAL SCH (09:36)
[2023-06-03 11:45] LABS: Glucose,Whole Blood 175 mg/dL (70-110)
--- NOTE | 2023-06-03 12:59 | P.PN ---
Subjective Progress Note Date: 06/03/23 Principal diagnosis: Right lower extremity infected wound Should seen and examined today as a follow-up. She complains that they're still pain to the right Achilles wound. However it is somewhat improved. She's been afebrile. She remains on IV antibiotics with infectious disease following. Discuss with cardiology that they recommend 81 mg aspirin daily. Patient without any other complaints. Objective - Vital Signs Vital signs: Vital Signs Temp 98.4 F 06/03/23 08:00 Pulse 72 06/03/23 08:00 Resp 16 06/03/23 08:00 BP 118/64 06/03/23 08:00 Pulse Ox 96 06/03/23 08:00 FiO2 Intake & Output 06/02/23 06/03/23 06/03/23 18:59 06:59 18:59 Intake Total 1115 800 Output Total 1050 1200 Balance 65 -1200 800 Intake: Oral 1115 800 Output: Urine 1050 1200 Other: Voiding Method External Catheter External Catheter External Catheter - Exam General appearance: The patient is alert, oriented, appears in no acute distress. HET: Head is normocephalic and atraumatic. Pupils are equal and reactive. Neck: Supple. Abdomen: Soft, nontender, nondistended. Extremities: Right groin with dressing clean dry and intact. Right lower extremity with dressing clean dry and intact. Foot is warm to touch with good capillary refill. Distal tips second and third fourth toes with dry gangrene. Neurological: No focal deficits. - Labs CBC & Chem 7: 06/03/23 07:42 06/03/23 07:42 Labs: Abnormal Lab Results - Last 24 Hours (Table) 06/02/23 06/02/23 06/02/23 Range/Units 11:22 16:11 20:02 RBC (3.80-5.40) m/uL Hgb (11.4-16.0) gm/dL Hct (34.0-46.0) % MCHC (31.0-37.0) g/dL RDW (11.5-15.5) % Lymphocytes # (1.0-4.8) k/uL Potassium (3.5-5.1) mmol/L POC Glucose (mg/dL) 190 H 235 H 234 H (70-110) mg/dL Calcium (8.4-10.2) mg/dL Total Protein (6.3-8.2) g/dL Albumin (3.5-5.0) g/dL 06/03/23 06/03/23 06/03/23 Range/Units 05:49 07:42 07:42 RBC 3.58 L (3.80-5.40) m/uL Hgb 9.2 L (11.4-16.0) gm/dL Hct 30.9 L (34.0-46.0) % MCHC 29.7 L (31.0-37.0) g/dL RDW 17.1 H (11.5-15.5) % Lymphocytes # 0.8 L (1.0-4.8) k/uL Potassium 3.1 L (3.5-5.1) mmol/L POC Glucose (mg/dL) 137 H (70-110) mg/dL Calcium 7.0 L (8.4-10.2) mg/dL Total Protein 5.0 L (6.3-8.2) g/dL Albumin 2.0 L (3.5-5.0) g/dL Microbiology - Last 24 Hours (Table) 05/28/23 16:15 Blood Culture - Final Blood 05/28/23 16:30 Blood Culture - Final Blood 05/30/23 17:10 Anaerobic Culture - Final Other - Other 05/30/23 17:10 Gram Stain - Final Other - Other Wound Culture - Final Pseudomonas aeruginosa Proteus mirabilis Enterococcus faecalis Assessment and Plan Assessment: 1. Right lower extremity infected wound status post excisional debridement 2. Right groin wound status post hematoma evacuation 3. Hypokalemia 4. 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 History of left external iliac artery occlusion 6. Coronary artery disease status post stenting mid RCA 04/04/2023 9. History of DVTs 10. Diabetes mellitus 11. History CVA Plan: 1. May have consistent carbohydrate diet 2. Continue Eliquis, will transition to Lovenox Saturday 3. Cardiology consulted for cardiac clearance, no absolute contraindication. May hold Plavix and recommend giving aspirin 81 mg daily 4. Continue antibiotics per recommendations from infectious disease 5. Local wound care to right groin 6. Plan for right [id number] amputation 06/07/[address] Mendoza Thank you for this consultation, we will continue to follow The impression and plan of care has been dictated as directed. Dr. Rutledge I performed a history and examination of this patient, discussed the same with the dictator. I agree with the dictator's note ,documented as a scribe. Any additional findings or plans will be noted.
[2023-06-03 15:11] VITALS: BMI 32.2
[2023-06-03 16:46] LABS: Glucose,Whole Blood 159 mg/dL (70-110)
[2023-06-03 19:59] LABS: Glucose,Whole Blood 211 mg/dL (70-110)
[2023-06-03] MEDS: MELATONIN 3 MG TABLET PO SCH (21:12)
[2023-06-03] MEDS: polyethylene glycoL 3350 17 GM POWD.PACK PO SCH (21:13)
[2023-06-03] MEDS: INSULIN DETEMIR (LEVEMIR) 100 UNIT/ML SYR SQ SCH (22:40)
[2023-06-04] MEDS: HYDROcodone/APAP 7.5-325MG 1 EACH TAB PO PRN ×5 (02:14→21:47)
[2023-06-04] MEDS: HYDROmorphone 0.5 MG/0.5 ML SYRINGE IVP PRN ×6 (02:15→21:00)
[2023-06-04 06:10] LABS: Glucose,Whole Blood 168 mg/dL (70-110)
[2023-06-04] MEDS: SODIUM CHLORIDE 0.9% 1,000 ML IV SCH ×2 (06:34→21:16)
[2023-06-04] MEDS: INSULIN ASPART (NovoLOG) 100 UNIT/ML VIAL SQ SCH ×4 (06:38→21:03)
[2023-06-04] MEDS: MEROPENEM 1 GM in SODIUM CHLORIDE 0.9% 100 ML IVPB SCH ×2 (08:23→17:34)
[2023-06-04] MEDS: ENOXAPARIN 40 MG/0.4 ML SYRINGE SQ SCH (08:23)
[2023-06-04] MEDS: FERROUS SULFATE 325 MG TAB PO SCH ×2 (08:24→21:01)
[2023-06-04] MEDS: ASPIRIN 81 MG PO SCH (08:24)
[2023-06-04] MEDS: GABAPENTIN 400 MG CAP PO SCH ×3 (08:24→21:01)
[2023-06-04] MEDS: DULoxetine HCL 60 MG CAPSULE.DR PO SCH (08:24)
[2023-06-04] MEDS: lisinopriL 5 MG TAB PO SCH (08:24)
[2023-06-04] MEDS: METOPROLOL TARTRATE 25 MG TAB PO SCH ×2 (08:24→21:01)
[2023-06-04] MEDS: POTASSIUM CHLORIDE ER 10 MEQ TAB.ER.PRT PO SCH ×2 (08:24→21:01)
[2023-06-04] MEDS: PANTOPRAZOLE 40 MG TABLET PO SCH (08:24)
[2023-06-04] MEDS: DOCUSATE 100 MG CAP PO SCH (08:24)
[2023-06-04] MEDS: LACTULOSE 20 GM/30 ML CUP PO SCH ×2 (08:25→21:04)
[2023-06-04 11:39] LABS: Glucose,Whole Blood 227 mg/dL (70-110)
[2023-06-04] MEDS: COLLAGENASE 250 UNIT/GM OINTMENT 30 GM TUBE TOPICAL SCH ×2 (12:07→21:03)
--- NOTE | 2023-06-04 13:21 | P.PN ---
Subjective Progress Note Date: 06/03/23 Principal diagnosis: Right leg wound infection Patient is a 63-year-old female with a past medical history significant for diabetes mellitus peripheral arterial disease coronary disease patient did have PAD and bypass graft with CryoVein right common thromboendarterectomy and right groin hematoma evacuation as well as right Achilles wound debridement and skin graft application patient has been sent to the ER by the home care nurse concerning for infection of the right lower extremity, patient is status post Sharp excisional debridement right lower extremity wound measuring 23 x 9 x 2.5 cm to muscle with undermining at the 12 o'clock position of 8.7 cm completed on 05/30/2023 On today's evaluation that is 06/03/2023, the patient continues to be afebrile , the patient is breathing comfortably on room air and denies any shortness of breath, the patient denies any chest pain or cough, patient denies abdominal pain and no nausea/vomiting or diarrhea , the patient pain to the right lower extremity is controlled with the pain medication Patient white count normalized to 7.8, creatinine 0.60, cultures are currently growing Pseudomonas enterococcus and Proteus Objective - Vital Signs Vital signs: Vital Signs Temp 97.3 F L 06/03/23 12:00 Pulse 70 06/03/23 12:00 Resp 17 06/03/23 12:00 BP 145/76 06/03/23 12:00 Pulse Ox 98 06/03/23 12:00 FiO2 Intake & Output 06/02/23 06/03/23 06/03/23 18:59 06:59 18:59 Intake Total 1115 800 Output Total 1050 1200 Balance 65 -1200 800 Intake: Oral 1115 800 Output: Urine 1050 1200 Other: Voiding Method External Catheter External Catheter External Catheter - Exam GENERAL DESCRIPTION: Middle-aged female lying in bed in no distress RESPIRATORY SYSTEM: Unlabored breathing , clear to auscultation anteriorly HEART: S1 S2 regular rate and rhythm , ABDOMEN: Soft , no tenderness EXTREMITIES: Right leg wound is currently dressed - Labs CBC & Chem 7: 06/03/23 07:42 06/03/23 07:42 Labs: Abnormal Lab Results - Last 24 Hours (Table) 06/02/23 06/02/23 06/03/23 Range/Units 16:11 20:02 05:49 RBC (3.80-5.40) m/uL Hgb (11.4-16.0) gm/dL Hct (34.0-46.0) % MCHC (31.0-37.0) g/dL RDW (11.5-15.5) % Lymphocytes # (1.0-4.8) k/uL Potassium (3.5-5.1) mmol/L POC Glucose (mg/dL) 235 H 234 H 137 H (70-110) mg/dL Calcium (8.4-10.2) mg/dL Total Protein (6.3-8.2) g/dL Albumin (3.5-5.0) g/dL 06/03/23 06/03/23 06/03/23 Range/Units 07:42 07:42 11:43 RBC 3.58 L (3.80-5.40) m/uL Hgb 9.2 L (11.4-16.0) gm/dL Hct 30.9 L (34.0-46.0) % MCHC 29.7 L (31.0-37.0) g/dL RDW 17.1 H (11.5-15.5) % Lymphocytes # 0.8 L (1.0-4.8) k/uL Potassium 3.1 L (3.5-5.1) mmol/L POC Glucose (mg/dL) 175 H (70-110) mg/dL Calcium 7.0 L (8.4-10.2) mg/dL Total Protein 5.0 L (6.3-8.2) g/dL Albumin 2.0 L (3.5-5.0) g/dL Microbiology - Last 24 Hours (Table) 05/28/23 16:15 Blood Culture - Final Blood 05/28/23 16:30 Blood Culture - Final Blood 05/30/23 17:10 Anaerobic Culture - Final Other - Other 05/30/23 17:10 Gram Stain - Final Other - Other Wound Culture - Final Pseudomonas aeruginosa Proteus mirabilis Enterococcus faecalis Assessment and Plan (1) Cellulitis of right leg Current Visit: Yes Status: Acute Code(s): L03.115 - CELLULITIS OF RIGHT LOWER LIMB SNOMED Code(s): 90483179723869144 (2) Leg wound, right Current Visit: Yes Status: Acute Code(s): S81.801A - UNSPECIFIED OPEN WOUND, RIGHT LOWER LEG, INITIAL ENCOUNTER SNOMED Code(s): 103530427 Plan: 1patient presented to hospital with sepsis in this patient with a fever elevated white count source likely her right lower extremity infected wound and second cellulitis likely from gram-positive skin jesus however the patient recently has grown Pseudomonas from the area could be related to the same pathogen. 2patient did have a vancomycin allergy that will limit the number of antibiotics safe to use. 3patient is status post surgical debridement and deep culture, with initial culture growing Pseudomonas enterococcus and Proteus 4-patient is currently waiting for amputation per vascular surgery, we will keep the patient on meropenem Questions concerned were answered Dictation was produced using [employer] dictation software. please excuse any grammatical, word or spelling errors. Time with Patient: Less than 30
--- NOTE | 2023-06-04 13:22 | P.PN ---
Subjective Progress Note Date: 06/04/23 Principal diagnosis: Right leg wound infection Patient is a 63-year-old female with a past medical history significant for diabetes mellitus peripheral arterial disease coronary disease patient did have PAD and bypass graft with CryoVein right common thromboendarterectomy and right groin hematoma evacuation as well as right Achilles wound debridement and skin graft application patient has been sent to the ER by the home care nurse concerning for infection of the right lower extremity, patient is status post Sharp excisional debridement right lower extremity wound measuring 23 x 9 x 2.5 cm to muscle with undermining at the 12 o'clock position of 8.7 cm completed on 05/30/2023 On today's evaluation that is 06/04/2023, the patient remains to be afebrile , the patient is breathing comfortably on room air without need for supplemental oxygen, the patient denies any chest pain and no significant cough or sputum production, patient denies abdominal pain and no nausea/vomiting or diarrhea , the patient denies any worsening pain to the right lower extremity Patient white count normalized to 7.8, creatinine 0.60 as of 06/03/2023, cultures are currently growing Pseudomonas enterococcus and Proteus Objective - Vital Signs Vital signs: Vital Signs Temp 98 F 06/04/23 12:00 Pulse 66 06/04/23 12:00 Resp 17 06/04/23 12:00 BP 133/70 06/04/23 12:00 Pulse Ox 98 06/04/23 12:00 FiO2 Intake & Output 06/03/23 06/04/23 06/04/23 18:59 06:59 18:59 Intake Total 2059 Output Total 1200 500 Balance 2059 Weight 93.44 kg Intake: Oral 2059 Output: Urine 1200 500 Other: Voiding Method External Catheter External Catheter External Catheter # Voids 2 1 - Exam GENERAL DESCRIPTION: Middle-aged female lying in bed in no distress RESPIRATORY SYSTEM: Unlabored breathing , clear to auscultation anteriorly HEART: S1 S2 regular rate and rhythm , ABDOMEN: Soft , no tenderness EXTREMITIES: Right leg wound is currently dressed - Labs CBC & Chem 7: 06/03/23 07:42 06/03/23 07:42 Labs: Abnormal Lab Results - Last 24 Hours (Table) 06/03/23 06/03/23 06/04/23 Range/Units 16:44 19:56 06:04 POC Glucose (mg/dL) 159 H 211 H 168 H (70-110) mg/dL 06/04/23 Range/Units 11:38 POC Glucose (mg/dL) 227 H (70-110) mg/dL Assessment and Plan (1) Cellulitis of right leg Current Visit: Yes Status: Acute Code(s): L03.115 - CELLULITIS OF RIGHT LOWER LIMB SNOMED Code(s): 69094590248950879 (2) Leg wound, right Current Visit: Yes Status: Acute Code(s): S81.801A - UNSPECIFIED OPEN WOUND, RIGHT LOWER LEG, INITIAL ENCOUNTER SNOMED Code(s): 044094844 Plan: 1patient presented to hospital with sepsis in this patient with a fever elevated white count source likely her right lower extremity infected wound and second cellulitis likely from gram-positive skin jesus however the patient recently has grown Pseudomonas from the area could be related to the same pathogen. 2patient did have a vancomycin allergy that will limit the number of antibiotics safe to use. 3patient is status post surgical debridement and deep culture, with initial culture growing Pseudomonas enterococcus and Proteus 4-patient is currently waiting for amputation per vascular surgery scheduled for coming Saturday 5-patient will continue with meropenem and monitor clinical course closely Discussed with admitting physician Dictation was produced using [employer] dictation software. please excuse any grammatical, word or spelling errors. Time with Patient: Less than 30
--- NOTE | 2023-06-04 15:27 | P.PN ---
Subjective Progress Note Date: 06/03/23 HISTORY OF PRESENT ILLNESS This is a 63-year-old female patient of mine with history of CAD with multiple cardiac stents in mid RCA, mid LAD, obtuse marginal branch and followed by Dr. Bill closely, peripheral artery disease with previous stenting done as well has amputation of the right great toe secondary to osteomyelitis, CVA with no residual deficits, hypertension, COPD, diabetes mellitus type 2, previous multiple DVT and PE requiring chronic anticoagulation on eliquis, history of GI bleed secondary to antral gastritis, esophagitis, vitamin D deficiency, autono margot hypotension on midodrine, history of left humerus fracture. resume with patient April 02 through April 15 at which time she presented to the hospital due to right second and fifth toe ischemic change. A CT angiogram showed evidence of occlusion of the right superficial femoral artery and 2 occluded segments 1 in the mid thigh about 3 cm and another into the right popliteal artery at 13 cm length, occlusion of the right iliac artery into the common femoral artery. Patient was seen in consultation by vascular surgery. Arterial ultrasound showed lower extremity abnormal on the right with HERMINIA suggests severe atherosclerotic disease. Critical stenosis not excluded. Plan for open bypass surgery with vascular surgery was made but a cardiology consult was requested. Patient was seen by Dr. Bill and had chest pain complaint and Due to critical in-stent restenosis and subsequently underwent cardiac catheterization which revealed critical in-stent restenosis of the RCA and Dr. Bill present performed stenting of the RCA. There was also intermediate disease in the first obtuse marginal branch of the left circumflex, intermediate disease involving the LAD and mildly elevated left sided filling pressures. Access was obtained from the right groin. Unfortunately following removal of the sheath, patient developed a significant hematoma to the right groin into the right pelvic area measuring up to 11.9 cm requiring ICU management, transfusion of packed RBCs and vasopressors for brief period along with IV fluid resuscitation. Patient was stabilized and discharged to home with home care but she returned with worsening wounds, hypotension with blood pressure of 84/57, leukocytosis of 26. She was seen by multiple consultants including wound care, infectious disease, vascular surgery. Patient underwent right common femoral to tibial vein bypass with debridement of a right exposed Achilles tendon heel, second third and fourth toes of the right foot and drainage of right inguinal hematoma with wound VAC with subsequent hematoma evacuation on 04/30. Patient was stabili zed and discharged to [facility] for subacute rehab. She returned to the emergency department about few weeks back and she was diagnosed with acute pancreatitis and she was taken off of her gaand she was discharged home because she refused to go back to [facility] and she recently underwent a skin grat to the right achilles lower leg area that was done by Umair Tejeda was Saturday before yesterday and carin was discharged home in a stable condition with a follow up last Saturday and then last and had the home care nurse coming for dressing changes and she was found to have black eschar on the back of her leg with purulent material coming out of her leg and right gron with a split wound where the LITO was and she appeared to have sepsis , she was started on IV Cefepime after obtaining blood cultures and wound cultures and she was admitted to the Hospital with vacular surgery consult along with ID consult 05/29: Patient has been seen by vascular surgery with plan for debridement of the Achilles area with possible amputation tomorrow. Eliquis has been discontinued. Patient has been maintained on Plavix. Blood pressure 149/85, heart rate is in the 70s, afebrile, pulse ox 94% on room air. WBC 11.6, hemoglobin 10.6, platelet count 269. Sodium 138, potassium 3.2 and will be replaced. Creatinine 0.6 BUN 6. Capillary blood glucose running between 85 and 129. Alkaline phosphatase 131. Gram stain from the wound right leg reveals moderate polymorphonuclear leukocytes, many gram-positive cocci and many gram- negative bacilli. Patient has been continued on cefepime 2 g IV piggyback every 12 hours. Patient is followed by infectious disease as well. Consult is in place for wound care center. 05/30: Patient is scheduled for debridement of the right lower extremity wound this afternoon with Dr. Mendoza. Deep cultures are to be obtained. Patient is continued on cefepime and daptomycin per Dr. Sheppard. Fevers are improving. Heart rate is in the 70s and 80s, blood pressure 128/57, pulse ox 94% on room air. WBC 10.3, hemoglobin 9.8, platelet count 234. Sodium 137, potassium 3.2, CO2 36, BUN 7 creatinine 0.67. CBG [id number]. Wound cultures are showing gram- negative bacilli. Blood culture no growth at 48 hours. Patient has been seen by the wound care team with recommendations for Santyl, saline moistened gauze dry gauze to the right groin wound. 05/31: Yesterday, patient underwent a sharp excisional debridement of the right lower extremity wound but due to the extent of the wound, poor tissue quality and lack of adequate flap potential, it has been recommended the patient undergo [id number] amputation. Cardiology has cleared the patient for surgical intervention knowing that she is at high risk but no absolute contraindications. Recommendations are to continue patient on aspirin while plavix on hold. We will plan on Lovenox once eliquis is discontinued prior to surgery. Patient continues to complain of pain to the right ankle foot area. She denies having any chest pain. No shortness of breath. She complains of feeling tired. Repeat blood work reveals WBC 9.4, hemoglobin 8.6, platelet count 236. Sodium 1 36, potassium 3.5, creatinine 0.64. Blood blood glucose this morning prior to lunch was 49. Otherwise blood sugars are running on the lower side in general 65-115. Scheduled NovoLog 10 units with meals will be discontinued and long- acting insulin was decreased. 06/03: REVIEW OF SYSTEMS Constitutional: positive for fever, No chills, no night sweats. Reports weight loss. Reports weakness, Reports fatigue no lethargy. NO daytime sleepiness. HEENT: No headache. No dizziness. Reports difficulty swallowing. No nasal drainage or congestion. No epistaxis. No sore throat. Lungs: No shortness of breath, cough, no sputum production. No wheezing. Cardiovascular: No chest pain, no lower extremity edema. No palpitations. No paroxysmal nocturnal dyspnea. No orthopnea. No lightheadedness or dizziness. No syncopal episodes. Abdominal: Reports abdominal pain. Reports nausea, no vomiting. no diarrhea. No constipation. No bloody or tarry stools. Reports loss of appetite. Genitourinary: No dysuria, increased frequency, urgency. No urinary retention. Musculoskeletal: No myalgias. positive for muscle weakness, reports balance issues, reports gait dysfunction, reports frequent falls. No back pain. No neck pain. Integumentary: Left achilles wound, right groin wound, Right 2nd, 3rd and 5th toes and right big toe amputation Neurologic: No aphasia. No facial droop. No change in mentation. No head injury. No headache. No paralysis. No paresthesia. Psychiatric: Reports depression. Reports anxiety. No mood swings. Endocrine: abnormal blood sugars. positive for weight change. No excessive sweating or thirst. No cold intolerance. PHYSICAL EXAMINATION Gen: This is a 63-year-old female. She is resting in bed and appears to be in no acute distress. HEENT: Head is atraumatic, normocephalic. Pupils equal, round. Sclerae is anicteric. Mucous members of the mouth are somewhat dry. NECK: Supple. No JVD. No lymphadenopathy. No thyromegaly. LUNGS: Clear to auscultation. No wheezes or rhonchi. No intercostal retractions. 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 ABDOMEN: Soft. Bowel sounds are present. No masses. no tenderness. Large hematoma to right pelvis soft, surrounding and dependent ecchymosis. EXTREMITIES: No pedal edema. Right big toe amputation, right 2nd, 3rd, and 5th toe amputaions, right achilles with balck eschar and non viable skin graft. NEUROLOGICAL: Patient is awake, alert and oriented x3. Cranial nerves 2 through 12 are grossly intact. Muscle power 4/5 in the left upper extremity, 4/5 in the right upper extremity, 3/5 in the bilateral lower extremities. DTRs are depressed bilaterally. Neuropathic changes in both feet. ASSESSMENT AND PLAN 1. Right leg infected/failed graft with sepsis. blood cultures, wound cultures. Continue patient on meropenem per infectious disease. Continue with IVF. Consults with infectious disease, vascular surgery and wound Center appreciated. Patient is scheduled for [id number] amputation on the right on Saturday. 2. Recent right common femoral to tibial vein bypass with debridement of the right exposed Achilles tendon heel second third and fifth toes of the right foot, also drainage of the right inguinal hematoma post removal of the LITO drain with a split wound in the right groin, we will continue with current treatment as in [place] [facility]1 consult vascular surgery. Continue local wound care per wound Center to groin. 3. Coronary artery disease with recent stent of the RCA due to recent in-stent restenosis. Patient has had previous multiple cardiac stents to the RCA and mid LAD, obtuse marginal branch. Continue patient on aspirin 81 mg daily until we can resume Plavix 75 mg daily, Lopressor 25 mg twice daily, Crestor 20 mg daily. 4. Diabetes mellitus type 2 uncontrolled with hyperglycemia and now hypoglycemia as patient is not eating much. Continue NovoLog scale before meals and at bedtime. Lantus 28 units at bedtime. Discontinue Novolog 10 units AC meals TID 5. Hyperlipidemia. Continue Atorvastatin 40 mg po daily 6. Chronic DVT and PEs. Continue patient on Lovenox until we can resume eliquis 5 mg twice daily. 7. Chronic anemia with recent acute blood loss anemia secondary to hematoma in the right groin/pelvis. Continue patient on ferrous sulfate 325 mg twice daily. 8. Hypertension and hypertensive cardiovascular disease, Continue lisinopril 5 mg daily, Lopressor 25 mg twice daily. 9. Gastroesophageal reflux disease and GI prophylaxis. Continue Pantoprazole 40 mg daily. 10. Diabetic neuropathy. w will continue wit Gabapentin 400 mg po tid. 11. Generalized anxiety disorder, recurrent depression. Continue Cymbalta 60 mg daily. 12. Patient diagnosed with EPI at [facility]. 13. Full code. Impression and plan of care have been directed as dictated by the signing physician. Kerri Kevin nurse practitioner acting as scribe for signing physician. Objective - Vital Signs Vital signs: Vital Signs Temp 97.3 F L 06/03/23 12:00 Pulse 70 06/03/23 13:27 Resp 17 06/03/23 12:00 BP 145/76 06/03/23 12:00 Pulse Ox 98 06/03/23 12:00 FiO2 Intake & Output 06/02/23 06/03/23 06/03/23 18:59 06:59 18:59 Intake Total 1115 1340 Output Total 1050 1200 Balance 65 -1200 1340 Intake: Oral 1115 1340 Output: Urine 1050 1200 Other: Voiding Method External Catheter External Catheter External Catheter - Labs CBC & Chem 7: 06/03/23 07:42 06/03/23 07:42 Labs: Abnormal Lab Results - Last 24 Hours (Table) 06/02/23 06/02/23 06/03/23 Range/Units 16:11 20:02 05:49 RBC (3.80-5.40) m/uL Hgb (11.4-16.0) gm/dL Hct (34.0-46.0) % MCHC (31.0-37.0) g/dL RDW (11.5-15.5) % Lymphocytes # (1.0-4.8) k/uL Potassium (3.5-5.1) mmol/L POC Glucose (mg/dL) 235 H 234 H 137 H (70-110) mg/dL Calcium (8.4-10.2) mg/dL Total Protein (6.3-8.2) g/dL Albumin (3.5-5.0) g/dL 06/03/23 06/03/23 06/03/23 Range/Units 07:42 07:42 11:43 RBC 3.58 L (3.80-5.40) m/uL Hgb 9.2 L (11.4-16.0) gm/dL Hct 30.9 L (34.0-46.0) % MCHC 29.7 L (31.0-37.0) g/dL RDW 17.1 H (11.5-15.5) % Lymphocytes # 0.8 L (1.0-4.8) k/uL Potassium 3.1 L (3.5-5.1) mmol/L POC Glucose (mg/dL) 175 H (70-110) mg/dL Calcium 7.0 L (8.4-10.2) mg/dL Total Protein 5.0 L (6.3-8.2) g/dL Albumin 2.0 L (3.5-5.0) g/dL Microbiology - Last 24 Hours (Table) 05/28/23 16:15 Blood Culture - Final Blood 05/28/23 16:30 Blood Culture - Final Blood 05/30/23 17:10 Anaerobic Culture - Final Other - Other 05/30/23 17:10 Gram Stain - Final Other - Other Wound Culture - Final Pseudomonas aeruginosa Proteus mirabilis Enterococcus faecalis
--- NOTE | 2023-06-04 15:32 | P.PN ---
Subjective Progress Note Date: 06/04/23 HISTORY OF PRESENT ILLNESS This is a 63-year-old female patient of mine with history of CAD with multiple cardiac stents in mid RCA, mid LAD, obtuse marginal branch and followed by Dr. Bill closely, peripheral artery disease with previous stenting done as well has amputation of the right great toe secondary to osteomyelitis, CVA with no residual deficits, hypertension, COPD, diabetes mellitus type 2, previous multiple DVT and PE requiring chronic anticoagulation on eliquis, history of GI bleed secondary to antral gastritis, esophagitis, vitamin D deficiency, autono margot hypotension on midodrine, history of left humerus fracture. resume with patient April 02 through April 15 at which time she presented to the hospital due to right second and fifth toe ischemic change. A CT angiogram showed evidence of occlusion of the right superficial femoral artery and 2 occluded segments 1 in the mid thigh about 3 cm and another into the right popliteal artery at 13 cm length, occlusion of the right iliac artery into the common femoral artery. Patient was seen in consultation by vascular surgery. Arterial ultrasound showed lower extremity abnormal on the right with HERMINIA suggests severe atherosclerotic disease. Critical stenosis not excluded. Plan for open bypass surgery with vascular surgery was made but a cardiology consult was requested. Patient was seen by Dr. Bill and had chest pain complaint and Due to critical in-stent restenosis and subsequently underwent cardiac catheterization which revealed critical in-stent restenosis of the RCA and Dr. Bill present performed stenting of the RCA. There was also intermediate disease in the first obtuse marginal branch of the left circumflex, intermediate disease involving the LAD and mildly elevated left sided filling pressures. Access was obtained from the right groin. Unfortunately following removal of the sheath, patient developed a significant hematoma to the right groin into the right pelvic area measuring up to 11.9 cm requiring ICU management, transfusion of packed RBCs and vasopressors for brief period along with IV fluid resuscitation. Patient was stabilized and discharged to home with home care but she returned with worsening wounds, hypotension with blood pressure of 84/57, leukocytosis of 26. She was seen by multiple consultants including wound care, infectious disease, vascular surgery. Patient underwent right common femoral to tibial vein bypass with debridement of a right exposed Achilles tendon heel, second third and fourth toes of the right foot and drainage of right inguinal hematoma with wound VAC with subsequent hematoma evacuation on 04/30. Patient was stabili zed and discharged to [facility] for subacute rehab. She returned to the emergency department about few weeks back and she was diagnosed with acute pancreatitis and she was taken off of her gaand she was discharged home because she refused to go back to [facility] and she recently underwent a skin grat to the right achilles lower leg area that was done by Umair Tejeda was Saturday before yesterday and carin was discharged home in a stable condition with a follow up last Saturday and then last and had the home care nurse coming for dressing changes and she was found to have black eschar on the back of her leg with purulent material coming out of her leg and right gron with a split wound where the LITO was and she appeared to have sepsis , she was started on IV Cefepime after obtaining blood cultures and wound cultures and she was admitted to the Hospital with vacular surgery consult along with ID consult 05/29: Patient has been seen by vascular surgery with plan for debridement of the Achilles area with possible amputation tomorrow. Eliquis has been discontinued. Patient has been maintained on Plavix. Blood pressure 149/85, heart rate is in the 70s, afebrile, pulse ox 94% on room air. WBC 11.6, hemoglobin 10.6, platelet count 269. Sodium 138, potassium 3.2 and will be replaced. Creatinine 0.6 BUN 6. Capillary blood glucose running between 85 and 129. Alkaline phosphatase 131. Gram stain from the wound right leg reveals moderate polymorphonuclear leukocytes, many gram-positive cocci and many gram- negative bacilli. Patient has been continued on cefepime 2 g IV piggyback every 12 hours. Patient is followed by infectious disease as well. Consult is in place for wound care center. 05/30: Patient is scheduled for debridement of the right lower extremity wound this afternoon with Dr. Mendoza. Deep cultures are to be obtained. Patient is continued on cefepime and daptomycin per Dr. Sheppard. Fevers are improving. Heart rate is in the 70s and 80s, blood pressure 128/57, pulse ox 94% on room air. WBC 10.3, hemoglobin 9.8, platelet count 234. Sodium 137, potassium 3.2, CO2 36, BUN 7 creatinine 0.67. CBG [id number]. Wound cultures are showing gram- negative bacilli. Blood culture no growth at 48 hours. Patient has been seen by the wound care team with recommendations for Santyl, saline moistened gauze dry gauze to the right groin wound. 05/31: Yesterday, patient underwent a sharp excisional debridement of the right lower extremity wound but due to the extent of the wound, poor tissue quality and lack of adequate flap potential, it has been recommended the patient undergo [id number] amputation. Cardiology has cleared the patient for surgical intervention knowing that she is at high risk but no absolute contraindications. Recommendations are to continue patient on aspirin while plavix on hold. We will plan on Lovenox once eliquis is discontinued prior to surgery. Patient continues to complain of pain to the right ankle foot area. She denies having any chest pain. No shortness of breath. She complains of feeling tired. Repeat blood work reveals WBC 9.4, hemoglobin 8.6, platelet count 236. Sodium 1 36, potassium 3.5, creatinine 0.64. Blood blood glucose this morning prior to lunch was 49. Otherwise blood sugars are running on the lower side in general 65-115. Scheduled NovoLog 10 units with meals will be discontinued and long- acting insulin was decreased. 06/03: Patient continues to be followed by vascular surgery with plan for right [id number] amputation on Saturday. Patient has been seen by cardiology and they've signed off. Plan is to continue aspirin 81 mg daily until patient can be resumed back on Plavix. Patient is also on eliquis transition to Lovenox until eliquis can be resumed following surgery. Antibiotics have been changed to meropenem per infectious disease. The blood glucose running between 159 and 175. 06/04: Patient states that pain to the right foot is a #6 out of 7. Plan is continued for amputation on Saturday with Dr. Mendoza. Capillary blood glucose ru nning between 168 and 227. Patient has been afebrile, heart rate 66, blood pressure 133/70. Patient has no new concerns. She continues to have minimal appetite. Family members are at bedside and all questions have been answered. REVIEW OF SYSTEMS Constitutional: positive for fever, No chills, no night sweats. Reports weight loss. Reports weakness, Reports fatigue no lethargy. NO daytime sleepiness. HEENT: No headache. No dizziness. Reports difficulty swallowing. No nasal drainage or congestion. No epistaxis. No sore throat. Lungs: No shortness of breath, cough, no sputum production. No wheezing. Cardiovascular: No chest pain, no lower extremity edema. No palpitations. No paroxysmal nocturnal dyspnea. No orthopnea. No lightheadedness or dizziness. No syncopal episodes. Abdominal: Reports abdominal pain. Reports nausea, no vomiting. no diarrhea. No constipation. No bloody or tarry stools. Reports loss of appetite. Genitourinary: No dysuria, increased frequency, urgency. No urinary retention. Musculoskeletal: No myalgias. positive for muscle weakness, reports balance issues, reports gait dysfunction, reports frequent falls. No back pain. No neck pain. Integumentary: Left achilles wound, right groin wound, Right 2nd, 3rd and 5th toes and right big toe amputation Neurologic: No aphasia. No facial droop. No change in mentation. No head injury. No headache. No paralysis. No paresthesia. Psychiatric: Reports depression. Reports anxiety. No mood swings. Endocrine: abnormal blood sugars. positive for weight change. No excessive sweating or thirst. No cold intolerance. PHYSICAL EXAMINATION Gen: This is a 63-year-old female. She is resting in bed and appears to be in no acute distress. HEENT: Head is atraumatic, normocephalic. Pupils equal, round. Sclerae is anicteric. Mucous members of the mouth are somewhat dry. NECK: Supple. No JVD. No lymphadenopathy. No thyromegaly. LUNGS: Clear to auscultation. No wheezes or rhonchi. No intercostal retractions. 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 ABDOMEN: Soft. Bowel sounds are present. No masses. no tenderness. Large hematoma to right pelvis soft, surrounding and dependent ecchymosis. EXTREMITIES: No pedal edema. Right big toe amputation, right 2nd, 3rd, and 5th toe amputaions, right achilles with balck eschar and non viable skin graft. NEUROLOGICAL: Patient is awake, alert and oriented x3. Cranial nerves 2 through 12 are grossly intact. Muscle power 4/5 in the left upper extremity, 4/5 in the right upper extremity, 3/5 in the bilateral lower extremities. DTRs are depressed bilaterally. Neuropathic changes in both feet. ASSESSMENT AND PLAN 1. Right leg infected/failed graft with sepsis. blood cultures, wound cultures. Continue patient on meropenem per infectious disease. Continue with IVF. Consults with infectious disease, vascular surgery and wound Center appreciated. Patient is scheduled for [id number] amputation on the right on Saturday. 2. Recent right common femoral to tibial vein bypass with debridement of the right exposed Achilles tendon heel second third and fifth toes of the right foot, also drainage of the right inguinal hematoma post removal of the LITO drain with a split wound in the right groin, we will continue with current treatment as in [place] #1 consult vascular surgery. Continue local wound care per wound Center to groin. 3. Coronary artery disease with recent stent of the RCA due to recent in-stent restenosis. Patient has had previous multiple cardiac stents to the RCA and mid LAD, obtuse marginal branch. Continue patient on aspirin 81 mg daily until we can resume Plavix 75 mg daily, Lopressor 25 mg twice daily, Crestor 20 mg daily. 4. Diabetes mellitus type 2 uncontrolled with hyperglycemia and now hypoglycemia as patient is not eating much. Continue NovoLog scale before meals and at bedtime. Lantus 28 units at bedtime. Discontinue Novolog 10 units AC meals TID 5. Hyperlipidemia. Continue Atorvastatin 40 mg po daily 6. Chronic DVT and PEs. Continue patient on Lovenox until we can resume eliquis 5 mg twice daily. 7. Chronic anemia with recent acute blood loss anemia secondary to hematoma in the right groin/pelvis. Continue patient on ferrous sulfate 325 mg twice daily. 8. Hypertension and hypertensive cardiovascular disease, Continue lisinopril 5 mg daily, Lopressor 25 mg twice daily. 9. Gastroesophageal reflux disease and GI prophylaxis. Continue Pantoprazole 40 mg daily. 10. Diabetic neuropathy. w will continue wit Gabapentin 400 mg po tid. 11. Generalized anxiety disorder, recurrent depression. Continue Cymbalta 60 mg daily. 12. Patient diagnosed with EPI at [facility]. 13. Full code. Impression and plan of care have been directed as dictated by the signing physician. Kerri Kevin nurse practitioner acting as scribe for signing physician. Objective - Vital Signs Vital signs: Vital Signs Temp 98 F 06/04/23 12:00 Pulse 66 06/04/23 12:00 Resp 17 06/04/23 12:00 BP 133/70 06/04/23 12:00 Pulse Ox 98 06/04/23 12:00 FiO2 Intake & Output 06/03/23 06/04/23 06/04/23 18:59 06:59 18:59 Intake Total 2059 Output Total 1200 500 Balance 2059 -1200 -500 Weight 93.44 kg Intake: Oral 2059 Output: Urine 1200 500 Other: Voiding Method External Catheter External Catheter External Catheter # Voids 2 1 - Labs CBC & Chem 7: 06/03/23 07:42 06/03/23 07:42 Labs: Abnormal Lab Results - Last 24 Hours (Table) 06/03/23 06/03/23 06/04/23 Range/Units 16:44 19:56 06:04 POC Glucose (mg/dL) 159 H 211 H 168 H (70-110) mg/dL 06/04/23 Range/Units 11:38 POC Glucose (mg/dL) 227 H (70-110) mg/dL
[2023-06-04 16:45] LABS: Glucose,Whole Blood 155 mg/dL (70-110)
[2023-06-04 20:20] LABS: Glucose,Whole Blood 126 mg/dL (70-110)
[2023-06-04] MEDS: MELATONIN 3 MG TABLET PO SCH (21:01)
[2023-06-04] MEDS: polyethylene glycoL 3350 17 GM POWD.PACK PO SCH (21:03)
[2023-06-04] MEDS: INSULIN DETEMIR (LEVEMIR) 100 UNIT/ML SYR SQ SCH (21:18)
[2023-06-05] MEDS: HYDROmorphone 0.5 MG/0.5 ML SYRINGE IVP PRN ×8 (00:04→21:51)
[2023-06-05] MEDS: LACTATED RINGERS 1,000 ML IV SCH ×2 (00:06→23:11)
[2023-06-05] MEDS: MEROPENEM 1 GM in SODIUM CHLORIDE 0.9% 100 ML IVPB SCH ×4 (00:08→23:09)
[2023-06-05] MEDS: HYDROcodone/APAP 7.5-325MG 1 EACH TAB PO PRN ×5 (01:37→23:10)
[2023-06-05 06:08] LABS: Glucose,Whole Blood 149 mg/dL (70-110)
[2023-06-05] MEDS: ACETAMINOPHEN TAB 325 MG TAB PO PRN ×2 (06:14→20:04)
[2023-06-05] MEDS: INSULIN ASPART (NovoLOG) 100 UNIT/ML VIAL SQ SCH ×4 (06:26→21:52)
[2023-06-05] MEDS: ENOXAPARIN 40 MG/0.4 ML SYRINGE SQ SCH (08:51)
[2023-06-05] MEDS: ASPIRIN 81 MG PO SCH (08:52)
[2023-06-05] MEDS: DULoxetine HCL 60 MG CAPSULE.DR PO SCH (08:52)
[2023-06-05] MEDS: METOPROLOL TARTRATE 25 MG TAB PO SCH ×2 (08:52→20:05)
[2023-06-05] MEDS: PANTOPRAZOLE 40 MG TABLET PO SCH (08:52)
[2023-06-05] MEDS: lisinopriL 5 MG TAB PO SCH (08:52)
[2023-06-05] MEDS: GABAPENTIN 400 MG CAP PO SCH ×3 (08:52→21:51)
[2023-06-05] MEDS: DOCUSATE 100 MG CAP PO SCH (08:52)
[2023-06-05] MEDS: POTASSIUM CHLORIDE ER 10 MEQ TAB.ER.PRT PO SCH ×2 (08:52→20:05)
[2023-06-05] MEDS: FERROUS SULFATE 325 MG TAB PO SCH ×2 (08:52→20:05)
[2023-06-05] MEDS: SODIUM CHLORIDE 0.9% 1,000 ML IV SCH ×2 (09:01→23:11)
[2023-06-05] MEDS: LACTULOSE 20 GM/30 ML CUP PO SCH (09:01)
[2023-06-05 11:27] LABS: Glucose,Whole Blood 150 mg/dL (70-110)
[2023-06-05 13:14] LABS: Anisocytosis Slight; Basophils % (A) 0 %; Eosinophils # (A) 0.1 k/uL (0-0.7); Eosinophils % (A) 3 %; HCT 33.8 % (34.0-46.0); HGB 10.5 gm/dL (11.4-16.0); Hypochromasia Marked; Lymphocytes # (A) 0.4 k/uL (1.0-4.8); Lymphocytes % (A) 9 %; MCH 26.7 pg (25.0-35.0); MCHC 30.9 g/dL (31.0-37.0); MCV 86.4 fL (80.0-100.0); Mean Platelet Volume 8.5; Monocytes # (A) 0.3 k/uL (0-1.0); Monocytes % (A) 7 %; Neutrophils % (A) 80 %; Platelet Count 279 k/uL (150-450); Poikilocytosis Slight; RBC 3.91 m/uL (3.80-5.40); RDW 17.2 % (11.5-15.5)
[2023-06-05 13:31] LABS: ALT 16 U/L (4-34); AST 66 U/L (14-36); African American GFR (CKD) >90 (>60 ml/min/1.73 sqM); Albumin 2.4 g/dL (3.5-5.0); Alkaline Phosphatase 159 U/L (38-126); Anion Gap 10 mmol/L; Blood Urea Nitrogen 8 mg/dL (7-17); Calcium 7.4 mg/dL (8.4-10.2); Carbon Dioxide 27 mmol/L (22-30); Chloride 96 mmol/L (98-107); Glucose 126 mg/dL (74-99); Non-African American GFR(CKD) >90 (>60 ml/min/1.73 sqM); Potassium 3.9 mmol/L (3.5-5.1); Sodium 133 mmol/L (137-145); Total Bilirubin 0.6 mg/dL (0.2-1.3); Total Protein 5.8 g/dL (6.3-8.2)
[2023-06-05 13:43] LABS: C Reactive Protein 14.8 mg/dL (<1.0)
--- NOTE | 2023-06-05 14:42 | P.PN ---
Subjective Progress Note Date: 06/05/23 Principal diagnosis: Right lower extremity infected wound Seen and examined today as a follow-up. She is resting comfortably. Son is at the bedside. She did spike fever with a max temp of 10 2.5 at 4 this morning. She remains on IV antibiotics. She denies any shortness of breath, cough, chest pain, abdominal pain, nausea or vomiting. Objective - Vital Signs Vital signs: Vital Signs Temp 99.1 F 06/05/23 08:08 Pulse 92 06/05/23 08:08 Resp 18 06/05/23 08:08 BP 138/65 06/05/23 08:08 Pulse Ox 92 L 06/05/23 08:08 FiO2 Intake & Output 06/04/23 06/05/23 06/05/23 18:59 06:59 18:59 Intake Total 0 Output Total 850 600 Balance -850 -600 0 Intake: Oral 0 Output: Urine 850 600 Other: Voiding Method External Catheter External Catheter # Voids 1 - Exam General appearance: The patient is alert, oriented, appears in no acute distress. HET: Head is normocephalic and atraumatic. Pupils are equal and reactive. Neck: Supple. Abdomen: Soft, nontender, nondistended. Extremities: Right groin with dressing clean dry and intact. Right lower extremity with dressing clean dry and intact. Foot is warm to touch with good capillary refill. Distal tips second and third fourth toes with dry gangrene. Neurological: No focal deficits. - Labs CBC & Chem 7: 06/05/23 12:50 06/05/23 12:50 Labs: Abnormal Lab Results - Last 24 Hours (Table) 06/04/23 06/04/23 06/04/23 Range/Units 11:38 16:43 20:18 POC Glucose (mg/dL) 227 H 155 H 126 H (70-110) mg/dL 06/05/23 Range/Units 06:06 POC Glucose (mg/dL) 149 H (70-110) mg/dL Assessment and Plan Assessment: 1. Right lower extremity infected wound status post excisional debridement 2. Right groin wound status post hematoma evacuation 3. Hypokalemia 4. 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 History of left external iliac artery occlusion 6. Coronary artery disease status post stenting mid RCA 04/04/2023 9. History of DVTs 10. Diabetes mellitus 11. History CVA Plan: 1. May have consistent carbohydrate diet 2. Continue Lovenox today and tomorrow 3. Cardiology consulted for cardiac clearance, no absolute contraindication. May hold Plavix and recommend giving aspirin 81 mg daily 4. Continue antibiotics per recommendations from infectious disease 5. Local wound care to right groin and right lower extremity 6. Plan for right [id number] amputation 06/07/[address] Mendoza Thank you for this consultation, we will continue to follow The impression and plan of care has been dictated as directed. Dr. Mendoza I performed a history and examination of this patient, discussed the same with the dictator. I agree with the dictator's note ,documented as a scribe. Any additional findings or plans will be noted.
[2023-06-05 16:24] LABS: Glucose,Whole Blood 182 mg/dL (70-110)
[2023-06-05] MEDS: ALPRAZolam 0.25 MG TAB PO PRN (17:44)
[2023-06-05] MEDS: MELATONIN 3 MG TABLET PO SCH (20:05)
[2023-06-05] MEDS: COLLAGENASE 250 UNIT/GM OINTMENT 30 GM TUBE TOPICAL SCH (20:06)
[2023-06-05 20:47] LABS: Glucose,Whole Blood 168 mg/dL (70-110)
[2023-06-05] MEDS: INSULIN DETEMIR (LEVEMIR) 100 UNIT/ML SYR SQ SCH (21:53)
[2023-06-06] MEDS: HYDROmorphone 0.5 MG/0.5 ML SYRINGE IVP PRN ×7 (03:22→23:30)
[2023-06-06] MEDS: HYDROcodone/APAP 7.5-325MG 1 EACH TAB PO PRN ×5 (03:46→21:38)
[2023-06-06 06:07] LABS: Glucose,Whole Blood 101 mg/dL (70-110)
[2023-06-06] MEDS: INSULIN ASPART (NovoLOG) 100 UNIT/ML VIAL SQ SCH ×4 (06:24→20:56)
[2023-06-06] MEDS: PANTOPRAZOLE 40 MG TABLET PO SCH (08:50)
[2023-06-06] MEDS: FERROUS SULFATE 325 MG TAB PO SCH ×2 (08:50→20:55)
[2023-06-06] MEDS: ASPIRIN 81 MG PO SCH (08:50)
[2023-06-06] MEDS: METOPROLOL TARTRATE 25 MG TAB PO SCH ×2 (08:50→20:56)
[2023-06-06] MEDS: POTASSIUM CHLORIDE ER 10 MEQ TAB.ER.PRT PO SCH ×2 (08:50→20:56)
[2023-06-06] MEDS: lisinopriL 5 MG TAB PO SCH (08:50)
[2023-06-06] MEDS: DULoxetine HCL 60 MG CAPSULE.DR PO SCH (08:50)
[2023-06-06] MEDS: GABAPENTIN 400 MG CAP PO SCH ×3 (08:50→20:57)
[2023-06-06] MEDS: ENOXAPARIN 40 MG/0.4 ML SYRINGE SQ SCH (08:53)
[2023-06-06] MEDS: MEROPENEM 1 GM in SODIUM CHLORIDE 0.9% 100 ML IVPB SCH ×3 (10:20→23:36)
[2023-06-06] MEDS: DOCUSATE 100 MG CAP PO SCH (10:21)
--- NOTE | 2023-06-06 11:01 | P.PN ---
Subjective Progress Note Date: 06/05/23 HISTORY OF PRESENT ILLNESS This is a 63-year-old female patient of mine with history of CAD with multiple cardiac stents in mid RCA, mid LAD, obtuse marginal branch and followed by Dr. Bill closely, peripheral artery disease with previous stenting done as well has amputation of the right great toe secondary to osteomyelitis, CVA with no residual deficits, hypertension, COPD, diabetes mellitus type 2, previous multiple DVT and PE requiring chronic anticoagulation on eliquis, history of GI bleed secondary to antral gastritis, esophagitis, vitamin D deficiency, autono margot hypotension on midodrine, history of left humerus fracture. resume with patient April 02 through April 15 at which time she presented to the hospital due to right second and fifth toe ischemic change. A CT angiogram showed evidence of occlusion of the right superficial femoral artery and 2 occluded segments 1 in the mid thigh about 3 cm and another into the right popliteal artery at 13 cm length, occlusion of the right iliac artery into the common femoral artery. Patient was seen in consultation by vascular surgery. Arterial ultrasound showed lower extremity abnormal on the right with HERMINIA suggests severe atherosclerotic disease. Critical stenosis not excluded. Plan for open bypass surgery with vascular surgery was made but a cardiology consult was requested. Patient was seen by Dr. Bill and had chest pain complaint and Due to critical in-stent restenosis and subsequently underwent cardiac catheterization which revealed critical in-stent restenosis of the RCA and Dr. Bill present performed stenting of the RCA. There was also intermediate disease in the first obtuse marginal branch of the left circumflex, intermediate disease involving the LAD and mildly elevated left sided filling pressures. Access was obtained from the right groin. Unfortunately following removal of the sheath, patient developed a significant hematoma to the right groin into the right pelvic area measuring up to 11.9 cm requiring ICU management, transfusion of packed RBCs and vasopressors for brief period along with IV fluid resuscitation. Patient was stabilized and discharged to home with home care but she returned with worsening wounds, hypotension with blood pressure of 84/57, leukocytosis of 26. She was seen by multiple consultants including wound care, infectious disease, vascular surgery. Patient underwent right common femoral to tibial vein bypass with debridement of a right exposed Achilles tendon heel, second third and fourth toes of the right foot and drainage of right inguinal hematoma with wound VAC with subsequent hematoma evacuation on 04/30. Patient was stabili zed and discharged to [facility] for subacute rehab. She returned to the emergency department about few weeks back and she was diagnosed with acute pancreatitis and she was taken off of her gaand she was discharged home because she refused to go back to [facility] and she recently underwent a skin grat to the right achilles lower leg area that was done by Umair Tejeda was Saturday before yesterday and carin was discharged home in a stable condition with a follow up last Saturday and then last and had the home care nurse coming for dressing changes and she was found to have black eschar on the back of her leg with purulent material coming out of her leg and right gron with a split wound where the LITO was and she appeared to have sepsis , she was started on IV Cefepime after obtaining blood cultures and wound cultures and she was admitted to the Hospital with vacular surgery consult along with ID consult 05/29: Patient has been seen by vascular surgery with plan for debridement of the Achilles area with possible amputation tomorrow. Eliquis has been discontinued. Patient has been maintained on Plavix. Blood pressure 149/85, heart rate is in the 70s, afebrile, pulse ox 94% on room air. WBC 11.6, hemoglobin 10.6, platelet count 269. Sodium 138, potassium 3.2 and will be replaced. Creatinine 0.6 BUN 6. Capillary blood glucose running between 85 and 129. Alkaline phosphatase 131. Gram stain from the wound right leg reveals moderate polymorphonuclear leukocytes, many gram-positive cocci and many gram- negative bacilli. Patient has been continued on cefepime 2 g IV piggyback every 12 hours. Patient is followed by infectious disease as well. Consult is in place for wound care center. 05/30: Patient is scheduled for debridement of the right lower extremity wound this afternoon with Dr. Mendoza. Deep cultures are to be obtained. Patient is continued on cefepime and daptomycin per Dr. Sheppard. Fevers are improving. Heart rate is in the 70s and 80s, blood pressure 128/57, pulse ox 94% on room air. WBC 10.3, hemoglobin 9.8, platelet count 234. Sodium 137, potassium 3.2, CO2 36, BUN 7 creatinine 0.67. CBG [id number]. Wound cultures are showing gram- negative bacilli. Blood culture no growth at 48 hours. Patient has been seen by the wound care team with recommendations for Santyl, saline moistened gauze dry gauze to the right groin wound. 05/31: Yesterday, patient underwent a sharp excisional debridement of the right lower extremity wound but due to the extent of the wound, poor tissue quality and lack of adequate flap potential, it has been recommended the patient undergo [id number] amputation. Cardiology has cleared the patient for surgical intervention knowing that she is at high risk but no absolute contraindications. Recommendations are to continue patient on aspirin while plavix on hold. We will plan on Lovenox once eliquis is discontinued prior to surgery. Patient continues to complain of pain to the right ankle foot area. She denies having any chest pain. No shortness of breath. She complains of feeling tired. Repeat blood work reveals WBC 9.4, hemoglobin 8.6, platelet count 236. Sodium 1 36, potassium 3.5, creatinine 0.64. Blood blood glucose this morning prior to lunch was 49. Otherwise blood sugars are running on the lower side in general 65-115. Scheduled NovoLog 10 units with meals will be discontinued and long- acting insulin was decreased. 06/03: Patient continues to be followed by vascular surgery with plan for right [id number] amputation on Saturday. Patient has been seen by cardiology and they've signed off. Plan is to continue aspirin 81 mg daily until patient can be resumed back on Plavix. Patient is also on eliquis transition to Lovenox until eliquis can be resumed following surgery. Antibiotics have been changed to meropenem per infectious disease. The blood glucose running between 159 and 175. 06/04: Patient states that pain to the right foot is a #6 out of 7. Plan is continued for amputation on Saturday with Dr. Mendoza. Capillary blood glucose ru nning between 168 and 227. Patient has been afebrile, heart rate 66, blood pressure 133/70. Patient has no new concerns. She continues to have minimal appetite. Family members are at bedside and all questions have been answered. 06/05: Patient remains afebrile, heart rate in the 70s to 90s, blood pressure 163/75, pulse ox 99% on room air. Patient continues to not have very much appetite. She also continues to have pain in the right foot ankle. Patient is having more anxiety related to upcoming surgery for which Xanax will be added. WBC 5, hemoglobin 10.5, platelet count 279. Sodium 133, potassium 3.9, chloride 96, CO2 27, BUN 8 and creatinine 0.62. Blood glucose running 126-155. REVIEW OF SYSTEMS Constitutional: positive for fever, No chills, no night sweats. Reports weight loss. Reports weakness, Reports fatigue no lethargy. NO daytime sleepiness. HEENT: No headache. No dizziness. Reports difficulty swallowing. No nasal drainage or congestion. No epistaxis. No sore throat. Lungs: No shortness of breath, cough, no sputum production. No wheezing. Cardiovascular: No chest pain, no lower extremity edema. No palpitations. No paroxysmal nocturnal dyspnea. No orthopnea. No lightheadedness or dizziness. No syncopal episodes. Abdominal: Reports abdominal pain. Reports nausea, no vomiting. no diarrhea. No constipation. No bloody or tarry stools. Reports loss of appetite. Genitourinary: No dysuria, increased frequency, urgency. No urinary retention. Musculoskeletal: No myalgias. positive for muscle weakness, reports balance i ssues, reports gait dysfunction, reports frequent falls. No back pain. No neck pain. Integumentary: Left achilles wound, right groin wound, Right 2nd, 3rd and 5th toes and right big toe amputation Neurologic: No aphasia. No facial droop. No change in mentation. No head injury. No headache. No paralysis. No paresthesia. Psychiatric: Reports depression. Reports anxiety. No mood swings. Endocrine: abnormal blood sugars. positive for weight change. No excessive sweating or thirst. No cold intolerance. PHYSICAL EXAMINATION Gen: This is a 63-year-old female. She is resting in bed and appears to be in no acute distress. HEENT: Head is atraumatic, normocephalic. Pupils equal, round. Sclerae is anicteric. Mucous members of the mouth are somewhat dry. NECK: Supple. No JVD. No lymphadenopathy. No thyromegaly. LUNGS: Clear to auscultation. No wheezes or rhonchi. No intercostal retractions. 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 ABDOMEN: Soft. Bowel sounds are present. No masses. no tenderness. Large hematoma to right pelvis soft, surrounding and dependent ecchymosis. EXTREMITIES: No pedal edema. Right big toe amputation, right 2nd, 3rd, and 5th toe amputaions, right achilles with balck eschar and non viable skin graft. NEUROLOGICAL: Patient is awake, alert and oriented x3. Cranial nerves 2 through 12 are grossly intact. Muscle power 4/5 in the left upper extremity, 4/5 in the right upper extremity, 3/5 in the bilateral lower extremities. DTRs are depressed bilaterally. Neuropathic changes in both feet. ASSESSMENT AND PLAN 1. Right leg infected/failed graft with sepsis. blood cultures, wound cultures. Continue patient on meropenem per infectious disease. Continue with IVF. Consults with infectious disease, vascular surgery and wound Center appreciated. Patient is scheduled for [id number] amputation on the right on Saturday. 2. Recent right common femoral to tibial vein bypass with debridement of the right exposed Achilles tendon heel second third and fifth toes of the right foot, also drainage of the right inguinal hematoma post removal of the LITO drain with a split wound in the right groin, we will continue with current treatment as in [place] #1 consult vascular surgery. Continue local wound care per wound Center to groin. 3. Coronary artery disease with recent stent of the RCA due to recent in-stent restenosis. Patient has had previous multiple cardiac stents to the RCA and mid LAD, obtuse marginal branch. Continue patient on aspirin 81 mg daily until we can resume Plavix 75 mg daily, Lopressor 25 mg twice daily, Crestor 20 mg daily. 4. Diabetes mellitus type 2 uncontrolled with hyperglycemia and now hypoglycemia as patient is not eating much. Continue NovoLog scale before meals and at bedtime. Lantus 28 units at bedtime. Discontinue Novolog 10 units AC meals TID 5. Hyperlipidemia. Continue Atorvastatin 40 mg po daily 6. Chronic DVT and PEs. Continue patient on Lovenox until we can resume eliquis 5 mg twice daily. 7. Chronic anemia with recent acute blood loss anemia secondary to hematoma in the right groin/pelvis. Continue patient on ferrous sulfate 325 mg twice daily. 8. Hypertension and hypertensive cardiovascular disease, Continue lisinopril 5 mg daily, Lopressor 25 mg twice daily. 9. Gastroesophageal reflux disease and GI prophylaxis. Continue Pantoprazole 40 mg daily. 10. Diabetic neuropathy. w will continue wit Gabapentin 400 mg po tid. 11. Generalized anxiety disorder, recurrent depression. Continue Cymbalta 60 mg daily, and Xanax 0.25 mg twice daily as needed. 12. Patient diagnosed with EPI at [facility], stable. 13. Full code. Impression and plan of care have been directed as dictated by the signing physician. Kerri Kevin nurse practitioner acting as scribe for signing physician. Objective - Vital Signs Vital signs: Vital Signs Temp 96.9 F L 06/05/23 12:00 Pulse 75 06/05/23 12:00 Resp 18 06/05/23 12:00 BP 163/75 06/05/23 12:00 Pulse Ox 99 06/05/23 12:00 FiO2 Intake & Output 06/04/23 06/05/23 06/05/23 18:59 06:59 18:59 Intake Total 225 Output Total 850 600 200 Balance -850 -600 25 Intake: Oral 225 Output: Urine 850 600 200 Other: Voiding Method External Catheter External Catheter External Catheter # Voids 1 - Labs CBC & Chem 7: 06/05/23 12:50 06/05/23 12:50 Labs: Abnormal Lab Results - Last 24 Hours (Table) 06/04/23 06/04/23 06/05/23 Range/Units 16:43 20:18 06:06 Hgb (11.4-16.0) gm/dL Hct (34.0-46.0) % MCHC (31.0-37.0) g/dL RDW (11.5-15.5) % Lymphocytes # (1.0-4.8) k/uL Sodium (137-145) mmol/L Chloride (98-107) mmol/L Glucose (74-99) mg/dL POC Glucose (mg/dL) 155 H 126 H 149 H (70-110) mg/dL Calcium (8.4-10.2) mg/dL AST (14-36) U/L Alkaline Phosphatase (38-126) U/L C-Reactive Protein (<1.0) mg/dL Total Protein (6.3-8.2) g/dL Albumin (3.5-5.0) g/dL 06/05/23 06/05/23 06/05/23 Range/Units 11:24 12:50 12:50 Hgb 10.5 L (11.4-16.0) gm/dL Hct 33.8 L (34.0-46.0) % MCHC 30.9 L (31.0-37.0) g/dL RDW 17.2 H (11.5-15.5) % Lymphocytes # 0.4 L (1.0-4.8) k/uL Sodium 133 L (137-145) mmol/L Chloride 96 L (98-107) mmol/L Glucose 126 H (74-99) mg/dL POC Glucose (mg/dL) 150 H (70-110) mg/dL Calcium 7.4 L (8.4-10.2) mg/dL AST 66 H (14-36) U/L Alkaline Phosphatase 159 H (38-126) U/L C-Reactive Protein 14.8 H (<1.0) mg/dL Total Protein 5.8 L (6.3-8.2) g/dL Albumin 2.4 L (3.5-5.0) g/dL
--- NOTE | 2023-06-06 11:04 | P.PN ---
Subjective Progress Note Date: 06/06/23 HISTORY OF PRESENT ILLNESS This is a 63-year-old female patient of mine with history of CAD with multiple cardiac stents in mid RCA, mid LAD, obtuse marginal branch and followed by Dr. Bill closely, peripheral artery disease with previous stenting done as well has amputation of the right great toe secondary to osteomyelitis, CVA with no residual deficits, hypertension, COPD, diabetes mellitus type 2, previous multiple DVT and PE requiring chronic anticoagulation on eliquis, history of GI bleed secondary to antral gastritis, esophagitis, vitamin D deficiency, autono margot hypotension on midodrine, history of left humerus fracture. resume with patient April 02 through April 15 at which time she presented to the hospital due to right second and fifth toe ischemic change. A CT angiogram showed evidence of occlusion of the right superficial femoral artery and 2 occluded segments 1 in the mid thigh about 3 cm and another into the right popliteal artery at 13 cm length, occlusion of the right iliac artery into the common femoral artery. Patient was seen in consultation by vascular surgery. Arterial ultrasound showed lower extremity abnormal on the right with HERMINIA suggests severe atherosclerotic disease. Critical stenosis not excluded. Plan for open bypass surgery with vascular surgery was made but a cardiology consult was requested. Patient was seen by Dr. Bill and had chest pain complaint and Due to critical in-stent restenosis and subsequently underwent cardiac catheterization which revealed critical in-stent restenosis of the RCA and Dr. Bill present performed stenting of the RCA. There was also intermediate disease in the first obtuse marginal branch of the left circumflex, intermediate disease involving the LAD and mildly elevated left sided filling pressures. Access was obtained from the right groin. Unfortunately following removal of the sheath, patient developed a significant hematoma to the right groin into the right pelvic area measuring up to 11.9 cm requiring ICU management, transfusion of packed RBCs and vasopressors for brief period along with IV fluid resuscitation. Patient was stabilized and discharged to home with home care but she returned with worsening wounds, hypotension with blood pressure of 84/57, leukocytosis of 26. She was seen by multiple consultants including wound care, infectious disease, vascular surgery. Patient underwent right common femoral to tibial vein bypass with debridement of a right exposed Achilles tendon heel, second third and fourth toes of the right foot and drainage of right inguinal hematoma with wound VAC with subsequent hematoma evacuation on 04/30. Patient was stabili zed and discharged to [facility] for subacute rehab. She returned to the emergency department about few weeks back and she was diagnosed with acute pancreatitis and she was taken off of her gaand she was discharged home because she refused to go back to [facility] and she recently underwent a skin grat to the right achilles lower leg area that was done by Umair Tejeda was Saturday before yesterday and carin was discharged home in a stable condition with a follow up last Saturday and then last and had the home care nurse coming for dressing changes and she was found to have black eschar on the back of her leg with purulent material coming out of her leg and right gron with a split wound where the LITO was and she appeared to have sepsis , she was started on IV Cefepime after obtaining blood cultures and wound cultures and she was admitted to the Hospital with vacular surgery consult along with ID consult 05/29: Patient has been seen by vascular surgery with plan for debridement of the Achilles area with possible amputation tomorrow. Eliquis has been discontinued. Patient has been maintained on Plavix. Blood pressure 149/85, heart rate is in the 70s, afebrile, pulse ox 94% on room air. WBC 11.6, hemoglobin 10.6, platelet count 269. Sodium 138, potassium 3.2 and will be replaced. Creatinine 0.6 BUN 6. Capillary blood glucose running between 85 and 129. Alkaline phosphatase 131. Gram stain from the wound right leg reveals moderate polymorphonuclear leukocytes, many gram-positive cocci and many gram- negative bacilli. Patient has been continued on cefepime 2 g IV piggyback every 12 hours. Patient is followed by infectious disease as well. Consult is in place for wound care center. 05/30: Patient is scheduled for debridement of the right lower extremity wound this afternoon with Dr. Mendoza. Deep cultures are to be obtained. Patient is continued on cefepime and daptomycin per Dr. Sheppard. Fevers are improving. Heart rate is in the 70s and 80s, blood pressure 128/57, pulse ox 94% on room air. WBC 10.3, hemoglobin 9.8, platelet count 234. Sodium 137, potassium 3.2, CO2 36, BUN 7 creatinine 0.67. CBG [id number]. Wound cultures are showing gram- negative bacilli. Blood culture no growth at 48 hours. Patient has been seen by the wound care team with recommendations for Santyl, saline moistened gauze dry gauze to the right groin wound. 05/31: Yesterday, patient underwent a sharp excisional debridement of the right lower extremity wound but due to the extent of the wound, poor tissue quality and lack of adequate flap potential, it has been recommended the patient undergo [id number] amputation. Cardiology has cleared the patient for surgical intervention knowing that she is at high risk but no absolute contraindications. Recommendations are to continue patient on aspirin while plavix on hold. We will plan on Lovenox once eliquis is discontinued prior to surgery. Patient continues to complain of pain to the right ankle foot area. She denies having any chest pain. No shortness of breath. She complains of feeling tired. Repeat blood work reveals WBC 9.4, hemoglobin 8.6, platelet count 236. Sodium 1 36, potassium 3.5, creatinine 0.64. Blood blood glucose this morning prior to lunch was 49. Otherwise blood sugars are running on the lower side in general 65-115. Scheduled NovoLog 10 units with meals will be discontinued and long- acting insulin was decreased. 06/03: Patient continues to be followed by vascular surgery with plan for right [id number] amputation on Saturday. Patient has been seen by cardiology and they've signed off. Plan is to continue aspirin 81 mg daily until patient can be resumed back on Plavix. Patient is also on eliquis transition to Lovenox until eliquis can be resumed following surgery. Antibiotics have been changed to meropenem per infectious disease. The blood glucose running between 159 and 175. 06/04: Patient states that pain to the right foot is a #6 out of 7. Plan is continued for amputation on Saturday with Dr. Mendoza. Capillary blood glucose ru nning between 168 and 227. Patient has been afebrile, heart rate 66, blood pressure 133/70. Patient has no new concerns. She continues to have minimal appetite. Family members are at bedside and all questions have been answered. 06/05: Patient remains afebrile, heart rate in the 70s to 90s, blood pressure 163/75, pulse ox 99% on room air. Patient continues to not have very much appetite. She also continues to have pain in the right foot ankle. Patient is having more anxiety related to upcoming surgery for which Xanax will be added. WBC 5, hemoglobin 10.5, platelet count 279. Sodium 133, potassium 3.9, chloride 96, CO2 27, BUN 8 and creatinine 0.62. Blood glucose running 126-155. 06/06: No new concerns from the patient. She is quite anxious in anticipation of surgery for tomorrow. She is scheduled for right [id number] amputation tomorrow with Dr. Mendoza. Capillary blood glucose running between 101 and 168. Patient remains afebrile, heart rate in the 70s, blood pressure 162/81, pulse ox 96% on room air. REVIEW OF SYSTEMS Constitutional: positive for fever, No chills, no night sweats. Reports weight loss. Reports weakness, Reports fatigue no lethargy. NO daytime sleepiness. HEENT: No headache. No dizziness. Reports difficulty swallowing. No nasal drainage or congestion. No epistaxis. No sore throat. Lungs: No shortness of breath, cough, no sputum production. No wheezing. Cardiovascular: No chest pain, no lower extremity edema. No palpitations. No paroxysmal nocturnal dyspnea. No orthopnea. No lightheadedness or dizziness. No syncopal episodes. Abdominal: Reports abdominal pain. Reports nausea, no vomiting. no diarrhea. No constipation. No bloody or tarry stools. Reports loss of appetite. Genitourinary: No dysuria, increased frequency, urgency. No urinary retention. Musculoskeletal: No myalgias. positive for muscle weakness, reports balance issues, reports gait dysfunction, reports frequent falls. No back pain. No neck pain. Integumentary: Left achilles wound, right groin wound, Right 2nd, 3rd and 5th toes and right big toe amputation Neurologic: No aphasia. No facial droop. No change in mentation. No head injury. No headache. No paralysis. No paresthesia. Psychiatric: Reports depression. Reports anxiety. No mood swings. Endocrine: abnormal blood sugars. positive for weight change. No excessive sweating or thirst. No cold intolerance. PHYSICAL EXAMINATION Gen: This is a 63-year-old female. She is resting in bed and appears to be in no acute distress. HEENT: Head is atraumatic, normocephalic. Pupils equal, round. Sclerae is anicteric. Mucous members of the mouth are somewhat dry. NECK: Supple. No JVD. No lymphadenopathy. No thyromegaly. LUNGS: Clear to auscultation. No wheezes or rhonchi. No intercostal retractions. 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 ABDOMEN: Soft. Bowel sounds are present. No masses. no tenderness. Large hematoma to right pelvis soft, surrounding and dependent ecchymosis. EXTREMITIES: No pedal edema. Right big toe amputation, right 2nd, 3rd, and 5th toe amputaions, right achilles with balck eschar and non viable skin graft. NEUROLOGICAL: Patient is awake, alert and oriented x3. Cranial nerves 2 through 12 are grossly intact. Muscle power 4/5 in the left upper extremity, 4/5 in the right upper extremity, 3/5 in the bilateral lower extremities. DTRs are depressed bilaterally. Neuropathic changes in both feet. ASSESSMENT AND PLAN 1. Right leg infected/failed graft with sepsis. blood cultures, wound cultures. Continue patient on meropenem per infectious disease. Continue with IVF. Consults with infectious disease, vascular surgery and wound Center appreciated. Patient is scheduled for [id number]-oaf-[id number] amputation on the right on Saturday. 2. Recent right common femoral to tibial vein bypass with debridement of the right exposed Achilles tendon heel second third and fifth toes of the right foot, also drainage of the right inguinal hematoma post removal of the LITO drain with a split wound in the right groin, we will continue with current treatment as in [place] #1 consult vascular surgery. Continue local wound care per wound Center to groin. 3. Coronary artery disease with recent stent of the RCA due to recent in-stent restenosis. Patient has had previous multiple cardiac stents to the RCA and mid LAD, obtuse marginal branch. Continue patient on aspirin 81 mg daily until we can resume Plavix 75 mg daily, Lopressor 25 mg twice daily, Crestor 20 mg daily. 4. Diabetes mellitus type 2 uncontrolled with hyperglycemia and now hypoglycemia as patient is not eating much. Continue NovoLog scale before meals and at bedtime. Lantus 28 units at bedtime. Discontinue Novolog 10 units AC meals TID 5. Hyperlipidemia. Continue Atorvastatin 40 mg po daily 6. Chronic DVT and PEs. Continue patient on Lovenox until we can resume eliquis 5 mg twice daily. 7. Chronic anemia with recent acute blood loss anemia secondary to hematoma in the right groin/pelvis. Continue patient on ferrous sulfate 325 mg twice daily. 8. Hypertension and hypertensive cardiovascular disease, Continue lisinopril 5 mg daily, Lopressor 25 mg twice daily. 9. Gastroesophageal reflux disease and GI prophylaxis. Continue Pantoprazole 40 mg daily. 10. Diabetic neuropathy. w will continue wit Gabapentin 400 mg po tid. 11. Generalized anxiety disorder, recurrent depression. Continue Cymbalta 60 mg daily, and Xanax 0.25 mg twice daily as needed. 12. Patient diagnosed with EPI at [facility]. 13. Full code. Impression and plan of care have been directed as dictated by the signing physician. Kerri Kevin nurse practitioner acting as scribe for signing physician. Objective - Vital Signs Vital signs: Vital Signs Temp 98.1 F 06/06/23 08:00 Pulse 73 06/06/23 08:00 Resp 18 06/06/23 08:00 BP 162/81 06/06/23 08:00 Pulse Ox 96 06/06/23 08:00 FiO2 Intake & Output 06/05/23 06/06/23 06/06/23 18:59 06:59 18:59 Intake Total 450 Output Total 200 1500 Balance 250 -1500 Intake: Oral 450 Output: Urine 200 1500 Other: Voiding Method External Catheter External Catheter External Catheter # Voids 1 # Bowel Movements 1 - Labs CBC & Chem 7: 06/05/23 12:50 06/05/23 12:50 Labs: Abnormal Lab Results - Last 24 Hours (Table) 06/05/23 06/05/23 06/05/23 Range/Units 11:24 12:50 12:50 Hgb 10.5 L (11.4-16.0) gm/dL Hct 33.8 L (34.0-46.0) % MCHC 30.9 L (31.0-37.0) g/dL RDW 17.2 H (11.5-15.5) % Lymphocytes # 0.4 L (1.0-4.8) k/uL Sodium 133 L (137-145) mmol/L Chloride 96 L (98-107) mmol/L Glucose 126 H (74-99) mg/dL POC Glucose (mg/dL) 150 H (70-110) mg/dL Calcium 7.4 L (8.4-10.2) mg/dL AST 66 H (14-36) U/L Alkaline Phosphatase 159 H (38-126) U/L C-Reactive Protein 14.8 H (<1.0) mg/dL Total Protein 5.8 L (6.3-8.2) g/dL Albumin 2.4 L (3.5-5.0) g/dL 06/05/23 06/05/23 Range/Units 16:22 20:38 Hgb (11.4-16.0) gm/dL Hct (34.0-46.0) % MCHC (31.0-37.0) g/dL RDW (11.5-15.5) % Lymphocytes # (1.0-4.8) k/uL Sodium (137-145) mmol/L Chloride (98-107) mmol/L Glucose (74-99) mg/dL POC Glucose (mg/dL) 182 H 168 H (70-110) mg/dL Calcium (8.4-10.2) mg/dL AST (14-36) U/L Alkaline Phosphatase (38-126) U/L C-Reactive Protein (<1.0) mg/dL Total Protein (6.3-8.2) g/dL Albumin (3.5-5.0) g/dL
[2023-06-06 11:36] LABS: Glucose,Whole Blood 123 mg/dL (70-110)
[2023-06-06] MEDS: SODIUM CHLORIDE 0.9% 1,000 ML IV SCH (12:16)
--- NOTE | 2023-06-06 13:13 | P.PN ---
Subjective Progress Note Date: 06/06/23 Principal diagnosis: Right lower extremity infected wound Patient seen and examined today as a follow-up. No acute changes through the night. She has been afebrile throughout the night and this morning. Still complains of throbbing in her right Achilles region. This remains on IV antibiotics. Patient son is at the bedside. They are concerned for insurance coverage for prosthetics. Objective - Vital Signs Vital signs: Vital Signs Temp 98.1 F 06/06/23 08:00 Pulse 73 06/06/23 08:00 Resp 18 06/06/23 08:00 BP 162/81 06/06/23 08:00 Pulse Ox 96 06/06/23 08:00 FiO2 Intake & Output 06/05/23 06/06/23 06/06/23 18:59 06:59 18:59 Intake Total 450 Output Total 200 1500 Balance 250 -1500 Intake: Oral 450 Output: Urine 200 1500 Other: Voiding Method External Catheter External Catheter External Catheter # Voids 1 1 # Bowel Movements 1 - Exam General appearance: The patient is alert, oriented, appears in no acute distress. HET: Head is normocephalic and atraumatic. Pupils are equal and reactive. Neck: Supple. Abdomen: Soft, nontender, nondistended. Extremities: Right groin with dressing clean dry and intact. Right lower extremity with dressing clean dry and intact. Foot is warm to touch with good capillary refill. Distal tips second and third fourth toes with dry gangrene. Neurological: No focal deficits. - Labs CBC & Chem 7: 06/05/23 12:50 06/05/23 12:50 Labs: Abnormal Lab Results - Last 24 Hours (Table) 06/05/23 06/05/23 06/05/23 Range/Units 12:50 12:50 16:22 Hgb 10.5 L (11.4-16.0) gm/dL Hct 33.8 L (34.0-46.0) % MCHC 30.9 L (31.0-37.0) g/dL RDW 17.2 H (11.5-15.5) % Lymphocytes # 0.4 L (1.0-4.8) k/uL Sodium 133 L (137-145) mmol/L Chloride 96 L (98-107) mmol/L Glucose 126 H (74-99) mg/dL POC Glucose (mg/dL) 182 H (70-110) mg/dL Calcium 7.4 L (8.4-10.2) mg/dL AST 66 H (14-36) U/L Alkaline Phosphatase 159 H (38-126) U/L C-Reactive Protein 14.8 H (<1.0) mg/dL Total Protein 5.8 L (6.3-8.2) g/dL Albumin 2.4 L (3.5-5.0) g/dL 06/05/23 06/06/23 Range/Units 20:38 11:33 Hgb (11.4-16.0) gm/dL Hct (34.0-46.0) % MCHC (31.0-37.0) g/dL RDW (11.5-15.5) % Lymphocytes # (1.0-4.8) k/uL Sodium (137-145) mmol/L Chloride (98-107) mmol/L Glucose (74-99) mg/dL POC Glucose (mg/dL) 168 H 123 H (70-110) mg/dL Calcium (8.4-10.2) mg/dL AST (14-36) U/L Alkaline Phosphatase (38-126) U/L C-Reactive Protein (<1.0) mg/dL Total Protein (6.3-8.2) g/dL Albumin (3.5-5.0) g/dL Assessment and Plan Assessment: 1. Right lower extremity infected wound status post excisional debridement 2. Right groin wound status post hematoma evacuation 3. Hypokalemia 4. 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 History of left external iliac artery occlusion 6. Coronary artery disease status post stenting mid RCA 04/04/2023 9. History of DVTs 10. Diabetes mellitus 11. History CVA Plan: 1. Nothing by mouth after midnight 2. Hold Lovenox 3. Cardiology consulted for cardiac clearance, no absolute contraindication. May hold Plavix and recommend giving aspirin 81 mg daily 4. Continue antibiotics per recommendations from infectious disease 5. Local wound care to right groin and right lower extremity 6. Patient is scheduled for right [id number] amputation 06/07/[address] Mendoza Thank you for this consultation, we will continue to follow The impression and plan of care has been dictated as directed. Dr. Hughes I performed a history and examination of this patient, discussed the same with the dictator. I agree with the dictator's note ,documented as a scribe. Any additional findings or plans will be noted.
--- NOTE | 2023-06-06 13:36 | P.PN ---
Subjective Progress Note Date: 06/05/23 Principal diagnosis: Right leg wound infection Patient is a 63-year-old female with a past medical history significant for diabetes mellitus peripheral arterial disease coronary disease patient did have PAD and bypass graft with CryoVein right common thromboendarterectomy and right groin hematoma evacuation as well as right Achilles wound debridement and skin graft application patient has been sent to the ER by the home care nurse concerning for infection of the right lower extremity, patient is status post Sharp excisional debridement right lower extremity wound measuring 23 x 9 x 2.5 cm to muscle with undermining at the 12 o'clock position of 8.7 cm completed on 05/30/2023 On today's evaluation that is 06/05/2023, the patient did spike a fever of 101F last night and a fever of 102 earlier this morning I was not notified of the patient fever , the patient is breathing comfortably on room air and denies any shortness of breath, the patient denies any chest pain and no cough or sputum production, patient denies abdominal pain and no nausea/vomiting or diarrhea, the patient denies any worsening pain to the right lower extremity, however mention not feeling that good today Patient white count 5.0, creatinine 0.62, cultures are currently growing Pseudom onas enterococcus and Proteus Objective - Vital Signs Vital signs: Vital Signs Temp 99.1 F 06/05/23 08:08 Pulse 92 06/05/23 08:08 Resp 18 06/05/23 08:08 BP 138/65 06/05/23 08:08 Pulse Ox 92 L 06/05/23 08:08 FiO2 Intake & Output 06/04/23 06/05/23 06/05/23 18:59 06:59 18:59 Intake Total 0 Output Total 850 600 200 Balance -850 -600 -200 Intake: Oral 0 Output: Urine 850 600 200 Other: Voiding Method External Catheter External Catheter External Catheter # Voids 1 - Exam GENERAL DESCRIPTION: Middle-aged female lying in bed in no distress RESPIRATORY SYSTEM: Unlabored breathing , clear to auscultation anteriorly HEART: S1 S2 regular rate and rhythm , ABDOMEN: Soft , no tenderness EXTREMITIES: Right leg wound is currently dressed - Labs CBC & Chem 7: 06/05/23 12:50 06/05/23 12:50 Labs: Abnormal Lab Results - Last 24 Hours (Table) 10/06/04/23 06/05/23 Range/Units 16:43 20:18 06:06 POC Glucose (mg/dL) 155 H 126 H 149 H (70-110) mg/dL 06/05/23 Range/Units 11:24 POC Glucose (mg/dL) 150 H (70-110) mg/dL Assessment and Plan (1) Cellulitis of right leg Current Visit: Yes Status: Acute Code(s): L03.115 - CELLULITIS OF RIGHT LOWER LIMB SNOMED Code(s): 34933485554996757 (2) Leg wound, right Current Visit: Yes Status: Acute Code(s): S81.801A - UNSPECIFIED OPEN WOUND, RIGHT LOWER LEG, INITIAL ENCOUNTER SNOMED Code(s): 188772678 Plan: 1patient presented to hospital with sepsis in this patient with a fever eleva karin white count source likely her right lower extremity infected wound and second cellulitis likely from gram-positive skin jesus however the patient recently has grown Pseudomonas from the area could be related to the same pathogen. 2patient did have a vancomycin allergy that will limit the number of antibiotics safe to use. 3patient is status post surgical debridement and deep culture, with initial culture growing Pseudomonas enterococcus and Proteus 4-patient is currently waiting for amputation per vascular surgery scheduled for coming Saturday 5-patient did have a new fever we will repeat a blood culture check inflammatory markers continue meropenem and add daptomycin to cover for the g brant-positive Dictation was produced using [employer] dictation software. please excuse any grammatical, word or spelling errors. Time with Patient: Less than 30
--- NOTE | 2023-06-06 13:37 | P.PN ---
Subjective Progress Note Date: 06/06/23 Principal diagnosis: Right leg wound infection Patient is a 63-year-old female with a past medical history significant for diabetes mellitus peripheral arterial disease coronary disease patient did have PAD and bypass graft with CryoVein right common thromboendarterectomy and right groin hematoma evacuation as well as right Achilles wound debridement and skin graft application patient has been sent to the ER by the home care nurse concerning for infection of the right lower extremity, patient is status post Sharp excisional debridement right lower extremity wound measuring 23 x 9 x 2.5 cm to muscle with undermining at the 12 o'clock position of 8.7 cm completed on 05/30/2023 On today's evaluation that is 06/06/2023, the patient denies any fever or any chills , the patient is breathing comfortably on room air and no need for supplemental oxygen, the patient denies any chest pain or cough and no sputum production, patient denies abdominal pain and no nausea/vomiting or diarrhea , feeling slightly better today Patient white count 5.0, creatinine 0.62 as of yesterday, cultures are currently growing Pseudomonas enterococcus and Proteus Objective - Vital Signs Vital signs: Vital Signs Temp 98.1 F 06/06/23 08:00 Pulse 73 06/06/23 08:00 Resp 18 06/06/23 08:00 BP 162/81 06/06/23 08:00 Pulse Ox 96 06/06/23 08:00 FiO2 Intake & Output 06/05/23 06/06/23 06/06/23 18:59 06:59 18:59 Intake Total 450 Output Total 200 1500 Balance 250 -1500 Intake: Oral 450 Output: Urine 200 1500 Other: Voiding Method External Catheter External Catheter External Catheter # Voids 1 1 # Bowel Movements 1 - Exam GENERAL DESCRIPTION: Middle-aged female lying in bed in no distress RESPIRATORY SYSTEM: Unlabored breathing , clear to auscultation anteriorly HEART: S1 S2 regular rate and rhythm , ABDOMEN: Soft , no tenderness EXTREMITIES: Right leg wound is currently dressed - Labs CBC & Chem 7: 06/05/23 12:50 06/05/23 12:50 Labs: Abnormal Lab Results - Last 24 Hours (Table) 06/05/23 06/05/23 06/05/23 Range/Units 12:50 16:22 20:38 Sodium 133 L (137-145) mmol/L Chloride 96 L (98-107) mmol/L Glucose 126 H (74-99) mg/dL POC Glucose (mg/dL) 182 H 168 H (70-110) mg/dL Calcium 7.4 L (8.4-10.2) mg/dL AST 66 H (14-36) U/L Alkaline Phosphatase 159 H (38-126) U/L C-Reactive Protein 14.8 H (<1.0) mg/dL Total Protein 5.8 L (6.3-8.2) g/dL Albumin 2.4 L (3.5-5.0) g/dL 06/06/23 Range/Units 11:33 Sodium (137-145) mmol/L Chloride (98-107) mmol/L Glucose (74-99) mg/dL POC Glucose (mg/dL) 123 H (70-110) mg/dL Calcium (8.4-10.2) mg/dL AST (14-36) U/L Alkaline Phosphatase (38-126) U/L C-Reactive Protein (<1.0) mg/dL Total Protein (6.3-8.2) g/dL Albumin (3.5-5.0) g/dL Assessment and Plan (1) Cellulitis of right leg Current Visit: Yes Status: Acute Code(s): L03.115 - CELLULITIS OF RIGHT LOWER LIMB SNOMED Code(s): 91741030722444478 (2) Leg wound, right Current Visit: Yes Status: Acute Code(s): S81.801A - UNSPECIFIED OPEN WOUND, RIGHT LOWER LEG, INITIAL ENCOUNTER SNOMED Code(s): 329706362 Plan: 1patient presented to hospital with sepsis in this patient with a fever elevated white count source likely her right lower extremity infected wound and second cellulitis likely from gram-positive skin jesus however the patient recently has grown Pseudomonas from the area could be related to the same pathogen. 2patient did have a vancomycin allergy that will limit the number of antibioti cs safe to use. 3patient is status post surgical debridement and deep culture, with initial culture growing Pseudomonas enterococcus and Proteus 4-patient is currently waiting for amputation per vascular surgery scheduled for coming Saturday 5-patient did have a new fever for the patient did have repeat a blood culture which are currently pending, 6-patient to meropenem and daptomycin and monitor clinical course closely Dictation was produced using Dragon Tail dictation software. please excuse any gr ammatical, word or spelling errors. Time with Patient: Less than 30
[2023-06-06 16:21] LABS: Glucose,Whole Blood 220 mg/dL (70-110)
[2023-06-06 19:53] LABS: Glucose,Whole Blood 174 mg/dL (70-110)
[2023-06-06] MEDS: ALPRAZolam 0.25 MG TAB PO PRN (20:08)
[2023-06-06] MEDS: MELATONIN 3 MG TABLET PO SCH (20:55)
[2023-06-06] MEDS: INSULIN DETEMIR (LEVEMIR) 100 UNIT/ML SYR SQ SCH (20:56)
[2023-06-06] MEDS: COLLAGENASE 250 UNIT/GM OINTMENT 30 GM TUBE TOPICAL SCH (20:57)
[2023-06-06] MEDS: LACTATED RINGERS 1,000 ML IV SCH (23:32)
[2023-06-07] MEDS: HYDROmorphone 0.5 MG/0.5 ML SYRINGE IVP PRN ×5 (02:25→20:21)
[2023-06-07] MEDS: HYDROcodone/APAP 7.5-325MG 1 EACH TAB PO PRN ×4 (02:26→20:19)
[2023-06-07] MEDS: SODIUM CHLORIDE 0.9% 1,000 ML IV SCH (06:27)
[2023-06-07] MEDS: POTASSIUM CHLORIDE ER 10 MEQ TAB.ER.PRT PO SCH ×2 (06:28→20:19)
[2023-06-07] MEDS: DULoxetine HCL 60 MG CAPSULE.DR PO SCH (06:28)
[2023-06-07] MEDS: ASPIRIN 81 MG PO SCH (06:28)
[2023-06-07] MEDS: FERROUS SULFATE 325 MG TAB PO SCH ×2 (06:29→20:19)
[2023-06-07] MEDS: DOCUSATE 100 MG CAP PO SCH ×2 (06:29→06:55)
[2023-06-07] MEDS: lisinopriL 5 MG TAB PO SCH (06:29)
[2023-06-07] MEDS: ALPRAZolam 0.25 MG TAB PO PRN ×3 (06:29→20:30)
[2023-06-07] MEDS: PANTOPRAZOLE 40 MG TABLET PO SCH (06:29)
[2023-06-07] MEDS: METOPROLOL TARTRATE 25 MG TAB PO SCH ×2 (06:29→20:19)
[2023-06-07] MEDS: GABAPENTIN 400 MG CAP PO SCH ×3 (06:29→20:19)
[2023-06-07] MEDS: INSULIN ASPART (NovoLOG) 100 UNIT/ML VIAL SQ SCH ×3 (06:32→17:05)
[2023-06-07 06:33] LABS: Glucose,Whole Blood 76 mg/dL (70-110)
[2023-06-07] MEDS ORDERED: IV FLUID CONTINUATION 700 ML IV ONE (09:20)
[2023-06-07 09:34] LABS: Anisocytosis Slight; HCT 27.5 % (34.0-46.0); Hypochromasia Marked; MCH 26.6 pg (25.0-35.0); MCHC 31.4 g/dL (31.0-37.0); MCV 84.6 fL (80.0-100.0); Mean Platelet Volume 8.3; Platelet Count 253 k/uL (150-450); Poikilocytosis Slight; RBC 3.25 m/uL (3.80-5.40); RDW 17.5 % (11.5-15.5); WBC 4.5 k/uL (3.8-10.6)
[2023-06-07 09:42] LABS: HGB 8.6 gm/dL (11.4-16.0)
[2023-06-07] MEDS: MEROPENEM 1 GM in SODIUM CHLORIDE 0.9% 100 ML IVPB SCH ×2 (09:48→16:58)
[2023-06-07 09:49] LABS: African American GFR (CKD) >90 (>60 ml/min/1.73 sqM); Anion Gap 5 mmol/L; Blood Urea Nitrogen 6 mg/dL (7-17); Carbon Dioxide 31 mmol/L (22-30); Chloride 99 mmol/L (98-107); Glucose 56 mg/dL (74-99); Non-African American GFR(CKD) >90 (>60 ml/min/1.73 sqM); Potassium 3.6 mmol/L (3.5-5.1); Sodium 135 mmol/L (137-145)
[2023-06-07 09:52] LABS: Glucose,Whole Blood 54 mg/dL (70-110)
[2023-06-07] MEDS ORDERED: MIDAZOLAM 2 MG/2 ML VIAL ONE (10:05)
[2023-06-07] MEDS ORDERED: PHENYLEPHRINE 10 MG/ML 5 ML VIAL ONE (10:05)
[2023-06-07] MEDS ORDERED: fentaNYL (PF) 50 MCG/ML 2 ML AMP ONE (10:05)
[2023-06-07 10:06] LABS: Calcium 6.3 mg/dL (8.4-10.2)
[2023-06-07 10:11] LABS: Glucose,Whole Blood 175 mg/dL (70-110)
[2023-06-07] MEDS ORDERED: ceFAZolin 2 GM in SODIUM CHLORIDE 0.9% 500 ML 500 ML IRRIGATION ONE (10:57)
--- NOTE | 2023-06-07 11:51 | P.OP ---
Date of Procedure: 06/07/23 Description of Procedure: Preoperative diagnosis: Right extremity ischemia, nonhealing wound with sign ificant tissue loss Postoperative diagnosis: Same Procedure: Right Above-knee amputation Surgeon: Padmaja Mendoza D.O. Anesthesia: Sedation with spinal EBL: 100 mL IV fluids: [See records, one unit PRBC Urine output: See records Drains none Complications: None immediately apparent Condition: Stable Operative indication and findings: Patient is a 63-year-old female who has severe peripheral arterial disease and previously had significant right lower extremity ischemia with a large area of tissue loss. She was initially debrided and was found to have such extensive tissue loss, necrosis and infection it is recommended she undergo an above-knee amputation. Procedure in detail: The patient was taken to the operative suite and placed in supine position. After adequate anesthesia, the right lower extremity was prepped and draped in usual sterile fashion. A preprocedure timeout was performed, all parties were in agreement. Skin marker was utilized and the incision was marked approximately 5 cm proximal to the knee joint. Skin incision was performed and deepened through the subcutaneous tissues to the muscular fascia. The saphenous vein was identified and ligated with 2-0 silk and divided. The muscle groups of the anterior and medial thigh were divided with electrocautery at the same level of the skin incision. The neurovascular bundle was identified on the medial aspect of the thigh. The artery and veins were isolated and suture ligated using 2-0 silk ligature. The sciatic nerve was pulled on stretch and ligated with 2-0 silk tie and divided. The femur was then cleared of its periosteal tissue is elevated roughly 5 cm proximally and was divided with the oscillating saw. The posterior thigh muscles were then divided with electrocautery. The proximal end of the transected femur was smoothed with a rasp. The amputation site was then copiously irrigated. Hemostasis was controlled with electrocautery. The periosteum was reapproximated using interrupted sutures of 2-0 Vicryl. The fascia was reapproximated with interrupted vrtewx-la-fosat sutures of 2-0 Vicryl. The skin was reapproximated with sara. A dressing with gauze, Kerlix and a bandage were placed. The patient tolerated the procedure well and was transported to PACU in stable condition
[2023-06-07 12:25] LABS: Glucose,Whole Blood 85 mg/dL (70-110)
[2023-06-07 13:28] LABS: Glucose,Whole Blood 77 mg/dL (70-110)
[2023-06-07] MEDS: DEXTROSE 5%-0.9% NACL 1,000 ML IV SCH (13:30)
--- NOTE | 2023-06-07 14:03 | P.PN ---
Subjective Progress Note Date: 06/07/23 HISTORY OF PRESENT ILLNESS This is a 63-year-old female patient of mine with history of CAD with multiple cardiac stents in mid RCA, mid LAD, obtuse marginal branch and followed by Dr. Bill closely, peripheral artery disease with previous stenting done as well has amputation of the right great toe secondary to osteomyelitis, CVA with no residual deficits, hypertension, COPD, diabetes mellitus type 2, previous multiple DVT and PE requiring chronic anticoagulation on eliquis, history of GI bleed secondary to antral gastritis, esophagitis, vitamin D deficiency, autono margot hypotension on midodrine, history of left humerus fracture. resume with patient April 02 through April 15 at which time she presented to the hospital due to right second and fifth toe ischemic change. A CT angiogram showed evidence of occlusion of the right superficial femoral artery and 2 occluded segments 1 in the mid thigh about 3 cm and another into the right popliteal artery at 13 cm length, occlusion of the right iliac artery into the common femoral artery. Patient was seen in consultation by vascular surgery. Arterial ultrasound showed lower extremity abnormal on the right with HERMINIA suggests severe atherosclerotic disease. Critical stenosis not excluded. Plan for open bypass surgery with vascular surgery was made but a cardiology consult was requested. Patient was seen by Dr. Bill and had chest pain complaint and Due to critical in-stent restenosis and subsequently underwent cardiac catheterization which revealed critical in-stent restenosis of the RCA and Dr. Bill present performed stenting of the RCA. There was also intermediate disease in the first obtuse marginal branch of the left circumflex, intermediate disease involving the LAD and mildly elevated left sided filling pressures. Access was obtained from the right groin. Unfortunately following removal of the sheath, patient developed a significant hematoma to the right groin into the right pelvic area measuring up to 11.9 cm requiring ICU management, transfusion of packed RBCs and vasopressors for brief period along with IV fluid resuscitation. Patient was stabilized and discharged to home with home care but she returned with worsening wounds, hypotension with blood pressure of 84/57, leukocytosis of 26. She was seen by multiple consultants including wound care, infectious disease, vascular surgery. Patient underwent right common femoral to tibial vein bypass with debridement of a right exposed Achilles tendon heel, second third and fourth toes of the right foot and drainage of right inguinal hematoma with wound VAC with subsequent hematoma evacuation on 04/30. Patient was stabili zed and discharged to [facility] for subacute rehab. She returned to the emergency department about few weeks back and she was diagnosed with acute pancreatitis and she was taken off of her gaand she was discharged home because she refused to go back to [facility] and she recently underwent a skin grat to the right achilles lower leg area that was done by Umair Tejeda was Saturday before yesterday and carin was discharged home in a stable condition with a follow up last Saturday and then last and had the home care nurse coming for dressing changes and she was found to have black eschar on the back of her leg with purulent material coming out of her leg and right gron with a split wound where the LITO was and she appeared to have sepsis , she was started on IV Cefepime after obtaining blood cultures and wound cultures and she was admitted to the Hospital with vacular surgery consult along with ID consult 05/29: Patient has been seen by vascular surgery with plan for debridement of the Achilles area with possible amputation tomorrow. Eliquis has been discontinued. Patient has been maintained on Plavix. Blood pressure 149/85, heart rate is in the 70s, afebrile, pulse ox 94% on room air. WBC 11.6, hemoglobin 10.6, platelet count 269. Sodium 138, potassium 3.2 and will be replaced. Creatinine 0.6 BUN 6. Capillary blood glucose running between 85 and 129. Alkaline phosphatase 131. Gram stain from the wound right leg reveals moderate polymorphonuclear leukocytes, many gram-positive cocci and many gram- negative bacilli. Patient has been continued on cefepime 2 g IV piggyback every 12 hours. Patient is followed by infectious disease as well. Consult is in place for wound care center. 05/30: Patient is scheduled for debridement of the right lower extremity wound this afternoon with Dr. Mendoza. Deep cultures are to be obtained. Patient is continued on cefepime and daptomycin per Dr. Sheppard. Fevers are improving. Heart rate is in the 70s and 80s, blood pressure 128/57, pulse ox 94% on room air. WBC 10.3, hemoglobin 9.8, platelet count 234. Sodium 137, potassium 3.2, CO2 36, BUN 7 creatinine 0.67. CBG [id number]. Wound cultures are showing gram- negative bacilli. Blood culture no growth at 48 hours. Patient has been seen by the wound care team with recommendations for Santyl, saline moistened gauze dry gauze to the right groin wound. 05/31: Yesterday, patient underwent a sharp excisional debridement of the right lower extremity wound but due to the extent of the wound, poor tissue quality and lack of adequate flap potential, it has been recommended the patient undergo dxnuz-vxs-ovpy amputation. Cardiology has cleared the patient for surgical intervention knowing that she is at high risk but no absolute contraindications. Recommendations are to continue patient on aspirin while plavix on hold. We will plan on Lovenox once eliquis is discontinued prior to surgery. Patient continues to complain of pain to the right ankle foot area. She denies having any chest pain. No shortness of breath. She complains of feeling tired. Repeat blood work reveals WBC 9.4, hemoglobin 8.6, platelet count 236. Sodium 1 36, potassium 3.5, creatinine 0.64. Blood blood glucose this morning prior to lunch was 49. Otherwise blood sugars are running on the lower side in general 65-115. Scheduled NovoLog 10 units with meals will be discontinued and long- acting insulin was decreased. 06/03: Patient continues to be followed by vascular surgery with plan for right ckgbg-ciw-fuvg amputation on Saturday. Patient has been seen by cardiology and they've signed off. Plan is to continue aspirin 81 mg daily until patient can be resumed back on Plavix. Patient is also on eliquis transition to Lovenox until eliquis can be resumed following surgery. Antibiotics have been changed to meropenem per infectious disease. The blood glucose running between 159 and 175. 06/04: Patient states that pain to the right foot is a #6 out of 7. Plan is continued for amputation on Saturday with Dr. Mendoza. Capillary blood glucose ru nning between 168 and 227. Patient has been afebrile, heart rate 66, blood pressure 133/70. Patient has no new concerns. She continues to have minimal appetite. Family members are at bedside and all questions have been answered. 06/05: Patient remains afebrile, heart rate in the 70s to 90s, blood pressure 163/75, pulse ox 99% on room air. Patient continues to not have very much appetite. She also continues to have pain in the right foot ankle. Patient is having more anxiety related to upcoming surgery for which Xanax will be added. WBC 5, hemoglobin 10.5, platelet count 279. Sodium 133, potassium 3.9, chloride 96, CO2 27, BUN 8 and creatinine 0.62. Blood glucose running 126-155. 06/06: No new concerns from the patient. She is quite anxious in anticipation of surgery for tomorrow. She is scheduled for right cyrul-ytb-eajx amputation tomorrow with Dr. Mendoza. Capillary blood glucose running between 101 and 168. Patient remains afebrile, heart rate in the 70s, blood pressure 162/81, pulse ox 96% on room air. 06/07: Patient is status post right pnwrm-vmz-jcro amputation. Patient is seen postoperatively back in her room. Her pain is currently fairly well controlled. Repeat blood work reveals hemoglobin of 8.6. Sodium 135, potassium 3.6, BUN 6 and creatinine 0.54. Blood sugar this morning was 54. Calcium 6.3. Patient has been transfused 1 unit of packed RBCs. Heart rate is 63, blood pressure 123/61 and pulse ox 99% on 3 L. Patient will be resumed back on eliquis and Plavix tomorrow.[id number] REVIEW OF SYSTEMS Constitutional: positive for fever, No chills, no night sweats. Reports weight loss. Reports weakness, Reports fatigue no lethargy. NO daytime sleepiness. HEENT: No headache. No dizziness. Reports difficulty swallowing. No nasal drainage or congestion. No epistaxis. No sore throat. Lungs: No shortness of breath, cough, no sputum production. No wheezing. Cardiovascular: No chest pain, no lower extremity edema. No palpitations. No paroxysmal nocturnal dyspnea. No orthopnea. No lightheadedness or dizziness. No syncopal episodes. Abdominal: Reports abdominal pain. Reports nausea, no vomiting. no diarrhea. No constipation. No bloody or tarry stools. Reports loss of appetite. Genitourinary: No dysuria, increased frequency, urgency. No urinary retention. Musculoskeletal: No myalgias. positive for muscle weakness, reports balance issues, reports gait dysfunction, reports frequent falls. No back pain. No neck pain. Integumentary: Left achilles wound, right groin wound, Right 2nd, 3rd and 5th toes and right big toe amputation Neurologic: No aphasia. No facial droop. No change in mentation. No head injury. No headache. No paralysis. No paresthesia. Psychiatric: Reports depression. Reports anxiety. No mood swings. Endocrine: abnormal blood sugars. positive for weight change. No excessive sweating or thirst. No cold intolerance. PHYSICAL EXAMINATION Gen: This is a 63-year-old female. She is resting in bed and appears to be in no acute distress. HEENT: Head is atraumatic, normocephalic. Pupils equal, round. Sclerae is anicteric. Mucous members of the mouth are somewhat dry. NECK: Supple. No JVD. No lymphadenopathy. No thyromegaly. LUNGS: Clear to auscultation. No wheezes or rhonchi. No intercostal retractions. 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 ABDOMEN: Soft. Bowel sounds are present. No masses. no tenderness. Large hematoma to right pelvis soft, surrounding and dependent ecchymosis. EXTREMITIES: No pedal edema. Right rrjma-onc-zizh amputation, large dressing in place. NEUROLOGICAL: Patient is awake, alert and oriented x3. Cranial nerves 2 through 12 are grossly intact. Muscle power 4/5 in the left upper extremity, 4/5 in the right upper extremity, 3/5 in the bilateral lower extremities. DTRs are depressed bilaterally. Neuropathic changes in both feet. ASSESSMENT AND PLAN 1. Right leg infected/failed graft with sepsis status post right ekxrq-ocx-fenc amputation. Continue daptomycin and meropenem per Dr. Carlos. Continue current pain management, incentive spirometry to reduce incidence of atelectasis and hospital-acquired pneumonia continue local wound care per vascular surgery.. 2. Recent right common femoral to tibial vein bypass with debridement of the right exposed Achilles tendon heel second third and fifth toes of the right foot, also drainage of the right inguinal hematoma post removal of the LITO drain with a split wound in the right groin, we will continue with current treatment as in [place] #1 consult vascular surgery. Continue local wound care per wound Center to groin. 3. Coronary artery disease with recent stent of the RCA due to recent in-stent restenosis. Patient has had previous multiple cardiac stents to the RCA and mid LAD, obtuse marginal branch. Continue patient on a Plavix 75 mg daily, Lopressor 25 mg twice daily, Crestor 20 mg daily. 4. Diabetes mellitus type 2 uncontrolled with hyperglycemia and now hypoglycemia as patient is not eating much. Continue NovoLog scale before meals and at bedtime. Lantus 28 units at bedtime. Discontinue Novolog 10 units AC meals TID 5. Hyperlipidemia. Continue Atorvastatin 40 mg po daily 6. Chronic DVT and PEs. Continue patient on eliquis 5 mg twice daily. 7. Chronic anemia with recent acute blood loss anemia secondary to hematoma in the right groin/pelvis. Continue patient on ferrous sulfate 325 mg twice daily. 8. Hypertension and hypertensive cardiovascular disease, Continue lisinopril 5 mg daily, Lopressor 25 mg twice daily. 9. Gastroesophageal reflux disease and GI prophylaxis. Continue Pantoprazole 40 mg daily. 10. Diabetic neuropathy. w will continue wit Gabapentin 400 mg po tid. 11. Generalized anxiety disorder, recurrent depression. Continue Cymbalta 60 mg daily, and Xanax 0.25 mg twice daily as needed. 12. Patient diagnosed with EPI at [facility], [facility]. 13. Full code. Impression and plan of care have been directed as dictated by the signing physician. Kerri Kevin nurse practitioner acting as scribe for signing physician. Objective - Vital Signs Vital signs: Vital Signs Temp 98.3 F 06/07/23 12:01 Pulse 63 06/07/23 12:45 Resp 16 06/07/23 12:45 BP 123/61 06/07/23 12:45 Pulse Ox 99 06/07/23 12:45 FiO2 Intake & Output 06/06/23 06/07/23 06/07/23 18:59 06:59 18:59 Intake Total 420 240 943 Output Total 200 100 Balance 220 240 843 Weight 93.44 kg 93.44 kg Intake: IV 651 Oral 420 240 Blood Product 292 Rc Pheresis As-3 Unit 292 [id number] Output: Urine 200 Estimated Blood Loss 100 Other: Voiding Method External Catheter External Catheter External Catheter # Voids 1 1 # Bowel Movements 1 - Labs CBC & Chem 7: 06/07/23 07:45 06/07/23 07:45 Labs: Abnormal Lab Results - Last 24 Hours (Table) 06/06/23 06/06/23 06/07/23 Range/Units 16:19 19:52 07:45 RBC 3.25 L (3.80-5.40) m/uL Hgb 8.6 L D (11.4-16.0) gm/dL Hct 27.5 L (34.0-46.0) % RDW 17.5 H (11.5-15.5) % Sodium (137-145) mmol/L Carbon Dioxide (22-30) mmol/L BUN (7-17) mg/dL Glucose (74-99) mg/dL POC Glucose (mg/dL) 220 H 174 H (70-110) mg/dL Calcium (8.4-10.2) mg/dL Crossmatch 06/07/23 06/07/23 06/07/23 Range/Units 07:45 07:45 09:49 RBC (3.80-5.40) m/uL Hgb (11.4-16.0) gm/dL Hct (34.0-46.0) % RDW (11.5-15.5) % Sodium 135 L (137-145) mmol/L Carbon Dioxide 31 H (22-30) mmol/L BUN 6 L (7-17) mg/dL Glucose 56 L (74-99) mg/dL POC Glucose (mg/dL) 54 L (70-110) mg/dL Calcium 6.3 L* (8.4-10.2) mg/dL Crossmatch See Detail 06/07/23 Range/Units 10:07 RBC (3.80-5.40) m/uL Hgb (11.4-16.0) gm/dL Hct (34.0-46.0) % RDW (11.5-15.5) % Sodium (137-145) mmol/L Carbon Dioxide (22-30) mmol/L BUN (7-17) mg/dL Glucose (74-99) mg/dL POC Glucose (mg/dL) 175 H (70-110) mg/dL Calcium (8.4-10.2) mg/dL Crossmatch Microbiology - Last 24 Hours (Table) 06/05/23 12:50 Blood Culture - Preliminary Blood
[2023-06-07 16:42] LABS: Glucose,Whole Blood 74 mg/dL (70-110)
[2023-06-07 20:17] LABS: Glucose,Whole Blood 105 mg/dL (70-110)
[2023-06-07] MEDS: MELATONIN 3 MG TABLET PO SCH (20:19)
[2023-06-07] MEDS ORDERED: IPRATROPIUM-ALBUTEROL 3 ML NEB INHALATION PRN (21:52)
[2023-06-07] MEDS ORDERED: CALCIUM GLUCONATE IN NACL 1 GM in SALINE 1 100ML.BAG IVPB ONE (21:53)
[2023-06-07 23:57] LABS: Glucose,Whole Blood 165 mg/dL (70-110)
[2023-06-08] MEDS: INSULIN DETEMIR (LEVEMIR) 100 UNIT/ML SYR SQ SCH ×2 (01:04→20:20)
[2023-06-08] MEDS: HYDROcodone/APAP 10-325MG 1 EACH TAB PO PRN ×2 (01:05→12:19)
[2023-06-08] MEDS: HYDROmorphone 1 MG/ML 1 ML SYRINGE IVP PRN ×3 (02:14→09:32)
[2023-06-08] MEDS: LACTATED RINGERS 1,000 ML IV SCH ×2 (02:15→20:10)
[2023-06-08] MEDS: INSULIN ASPART (NovoLOG) 100 UNIT/ML VIAL SQ SCH ×5 (02:15→20:20)
[2023-06-08] MEDS: MEROPENEM 1 GM in SODIUM CHLORIDE 0.9% 100 ML IVPB SCH ×3 (02:22→16:56)
[2023-06-08] MEDS: DEXTROSE 5%-0.9% NACL 1,000 ML IV SCH (05:32)
[2023-06-08 06:09] LABS: Glucose,Whole Blood 234 mg/dL (70-110)
[2023-06-08] MEDS: ALPRAZolam 0.25 MG TAB PO PRN (06:37)
[2023-06-08] MEDS ORDERED: SODIUM CHLORIDE 0.9% 1,000 ML IV SCH (07:00)
[2023-06-08] MEDS: CLOPIDOGREL 75 MG TAB PO SCH (09:26)
[2023-06-08] MEDS: lisinopriL 5 MG TAB PO SCH (09:26)
[2023-06-08] MEDS: POTASSIUM CHLORIDE ER 10 MEQ TAB.ER.PRT PO SCH ×2 (09:26→20:09)
[2023-06-08] MEDS: GABAPENTIN 400 MG CAP PO SCH ×3 (09:26→20:09)
[2023-06-08] MEDS: DULoxetine HCL 60 MG CAPSULE.DR PO SCH (09:26)
[2023-06-08] MEDS: PANTOPRAZOLE 40 MG TABLET PO SCH (09:26)
[2023-06-08] MEDS: METOPROLOL TARTRATE 25 MG TAB PO SCH ×2 (09:27→20:09)
[2023-06-08] MEDS: FERROUS SULFATE 325 MG TAB PO SCH ×2 (09:27→20:09)
[2023-06-08] MEDS: DOCUSATE 100 MG CAP PO SCH (09:27)
[2023-06-08] MEDS: APIXABAN 5 MG TAB PO SCH ×2 (09:33→20:09)
[2023-06-08 11:37] LABS: Glucose,Whole Blood 168 mg/dL (70-110)
--- NOTE | 2023-06-08 13:35 | P.PN ---
Subjective Progress Note Date: 06/08/23 This is a 63-year-old female patient of mine with history of CAD with multiple cardiac stents in mid RCA, mid LAD, obtuse marginal branch and followed by Dr. Bill closely, peripheral artery disease with previous stenting done as well has amputation of the right great toe secondary to osteomyelitis, CVA with no residual deficits, hypertension, COPD, diabetes mellitus type 2, previous multiple DVT and PE requiring chronic anticoagulation on eliquis, history of GI bleed secondary to antral gastritis, esophagitis, vitamin D deficiency, autonomic hypotension on midodrine, history of left humerus fracture. resume with patient April 02 through April 15 at which time she presented to the hospital due to right second and fifth toe ischemic change. A CT angiogram showed evidence of occlusion of the right superficial femoral artery and 2 occluded segments 1 in the mid thigh about 3 cm and another into the right popliteal artery at 13 cm length, occlusion of the right iliac artery into the common femoral artery. Patient was seen in consultation by vascular surgery. Arterial ultrasound showed lower extremity abnormal on the right with HERMINIA suggests severe atherosclerotic disease. Critical stenosis not excluded. Plan for open bypass surgery with vascular surgery was made but a cardiology consult was requested. Patient was seen by Dr. Bill and had chest pain complaint and Due to critical in-stent restenosis and subsequently underwent cardiac catheterization which revealed critical in-stent restenosis of the RCA and Dr. Bill present performed stenting of the RCA. There was also intermediate disease in the first obtuse marginal branch of the left circumflex, intermediate disease involving the LAD and mildly elevated left sided filling pressures. Access was obtained from the right groin. Unfortunately following removal of the sheath, patient developed a significant hematoma to the right groin into the right pelvic area measuring up to 11.9 cm requiring ICU management, transfusion of packed RBCs and vasopressors for brief period along with IV fluid resuscitation. Patient was stabilized and discharged to home with home care but she returned with worsening wounds, hypotension with blood pressure of 84/57, leukocytosis of 26. She was seen by multiple consultants including wound care, infectious disease, vascular surgery. Patient underwent right common femoral to tibial vein bypass with debridement of a right exposed Achilles tendon heel, second third and fourth toes of the right foot and drainage of right inguinal hematoma with wound VAC with subsequent hematoma evacuation on 04/30. Patient was stabilized and discharged to [facility] for subacute rehab. She returned to the emergency department about few weeks back and she was diagnosed with acute pancreatitis and [facility] because she refused to go back to [facility] and she recently underwent a skin grat to the right achilles lower leg area that was done by Umair Tejeda was Saturday before yesterday and carin was discharged home in a stable condition with a follow up last Saturday and then last and had the home care nurse coming for dressing changes and she was found to have black eschar on the back of her leg with purulent material coming out of her leg and right gron with a split wound where the LITO was and she appeared to have sepsis , she was started on IV Cefepime after obtaining blood cultures and wound cultures and she was admitted to the Hospital with vacular surgery consult along with ID consult 05/29: Patient has been seen by vascular surgery with plan for debridement of the Achilles area with possible amputation tomorrow. Eliquis has been discontinued. Patient has been maintained on Plavix. Blood pressure 149/85, heart rate is in the 70s, afebrile, pulse ox 94% on room air. WBC 11.6, hemoglobin 10.6, platelet count 269. Sodium 138, potassium 3.2 and will be replaced. Creatinine 0.6 BUN 6. Capillary blood glucose running between 85 and 129. Alkaline phosphatase 131. Gram stain from the wound right leg reveals moderate polymorphonuclear leukocytes, many gram-positive cocci and many gram- negative bacilli. Patient has been continued on cefepime 2 g IV piggyback every 12 hours. Patient is followed by infectious disease as well. Consult is in place for wound care center. 05/30: Patient is scheduled for debridement of the right lower extremity wound this afternoon with Dr. Mendoza. Deep cultures are to be obtained. Patient is continued on cefepime and daptomycin per Dr. Sheppard. Fevers are improving. Heart rate is in the 70s and 80s, blood pressure 128/57, pulse ox 94% on room air. WBC 10.3, hemoglobin 9.8, platelet count 234. Sodium 137, potassium 3.2, CO2 36, BUN 7 creatinine 0.67. CBG [id number]. Wound cultures are showing gram- negative bacilli. Blood culture no growth at 48 hours. Patient has been seen by the [facility] care team [facility] moistened gauze dry gauze to the right groin wound. 05/31: Yesterday, patient underwent a sharp excisional debridement of the right lower extremity wound but due to the extent of the wound, poor tissue quality and lack of adequate flap potential, it has been recommended the patient undergo uqvex-msr-eeij amputation. Cardiology has cleared the patient for surgical intervention knowing that she is at high risk but no absolute contraindications. Recommendations are to continue patient on aspirin while plavix on hold. We will plan on Lovenox once eliquis is discontinued prior to surgery. Patient continues to complain of pain to the right ankle foot area. She denies having any chest pain. No shortness of breath. She complains of feeling tired. Repeat blood work reveals WBC 9.4, hemoglobin 8.6, platelet count 236. Sodium 136, potassium 3.5, creatinine 0.64. Blood blood glucose this morning prior to lunch was 49. Otherwise blood sugars are running on the lower side in general 65-115. Scheduled NovoLog 10 units with meals will be discontinued and long- acting insulin was decreased. 06/03: Patient continues to be followed by vascular surgery with plan for right ddrdp-ngx-qdmo amputation on Saturday. Patient has been seen by cardiology and they've signed off. Plan is to continue aspirin 81 mg daily until patient can be resumed back on Plavix. Patient is also on eliquis transition to Lovenox until eliquis can be resumed following surgery. Antibiotics have been changed to meropenem per infectious disease. The blood glucose running between 159 and 175. 06/04: Patient states that pain to the right foot is a #6 out of 7. Plan is continued for amputation on Saturday with Dr. Mendoza. Capillary blood glucose running between 168 and 227. Patient has been afebrile, heart rate 66, blood pressure 133/70. Patient has no new concerns. She continues to have minimal appetite. Family members are at bedside and all questions have been answered. 06/05: Patient remains afebrile, heart rate in the 70s to 90s, blood pressure 163/75, pulse ox 99% on room air. Patient continues to not have very much appetite. She also continues to have pain in the right foot ankle. Patient is having more anxiety related to upcoming surgery for which Xanax will be added. WBC 5, hemoglobin 10.5, platelet count 279. Sodium 133, potassium 3.9, chloride 96, CO2 27, BUN 8 and creatinine 0.62. Blood glucose running 126-155. 06/06: No new concerns from the patient. She is quite anxious in anticipation of surgery for tomorrow. She is scheduled for right udebm-lsz-naay amputation tomorrow with Dr. Mendoza. Capillary blood glucose running between 101 and 168. Patient remains afebrile, heart rate in the 70s, blood pressure 162/81, pulse ox 96% on room air. 06/07: Patient is status post right wxhwa-eoq-ogal amputation. Patient is seen postoperatively back in her room. Her pain is currently fairly well controlled. Repeat blood work reveals hemoglobin of 8.6. Sodium 135, potassium 3.6, BUN 6 and creatinine 0.54. Blood sugar this morning was 54. Calcium 6.3. Patient has been transfused 1 unit of packed RBCs. Heart rate is 63, blood pressure 123/61 and pulse ox 99% on 3 L. Patient will be resumed back on eliquis and Plavix tomorrow.[id number] 06/08. Dr. Hess covering for Dr. Tejeda. Patient is status post right txrdk-bfy-qilu amputation. No acute issues overnight. Complaining of pain at the stump site. Patient gets anxious easily. REVIEW OF SYSTEMS: CONSTITUTIONAL: No fever, no malaise,. CARDIOVASCULAR: No chest pain, no palpitations, no syncope. PULMONARY: No shortness of breath, no cough, GASTROINTESTINAL: No diarrhea, no nausea, no vomiting, no abdominal pain. NEUROLOGICAL: No headaches, no weakness, PHYSICAL EXAMINATION: GENERAL: The patient is alert and oriented x3, not in any acute distress. Well developed, well nourished. HEENT: Pupils are round and equally reacting to light. EOMI. No scleral icterus. No conjunctival pallor. Normocephalic, atraumatic. No pharyngeal erythema. No thyromegaly. CARDIOVASCULAR: S1 and S2 present. No murmurs, rubs, or gallops. PULMONARY: Chest is clear to auscultation, no wheezing or crackles. ABDOMEN: Soft, nontender, nondistended, normoactive bowel sounds. No palpable organomegaly. MUSCULOSKELETAL: Right AKA EXTREMITIES: No cyanosis, clubbing, or pedal edema. NEUROLOGICAL: Gross neurological examination did not reveal any focal deficits. SKIN: No rashes. Assessment and plan Right leg infected/failed graft with sepsis Recent right common femoral to tibial vein bypass with debridement of the right exposed Achilles tendon heel second third and fifth toes of the right foot, also drainage of the right inguinal hematoma post removal of the LITO drain with a split wound in the right groin Coronary artery disease with recent stent of the RCA due to recent in-stent restenosis. Diabetes mellitus type 2 uncontrolled with hyperglycemia. Hyperlipidemia. Chronic DVT and PEs. Continue patient on eliquis 5 mg twice daily. Chronic anemia with recent acute blood loss anemia Hypertension and hypertensive cardiovascular disease Gastroesophageal reflux disease Diabetic neuropathy Generalized anxiety disorder, recurrent depression. Monitor vital signs Monitor CBC Monitor CMP Continue telemetry monitoring Encourage use of incentive spirometer status post right qjwfb-jgp-sbmm amputation Continue daptomycin and meropenem ID following Vascular surgery following In regards to hypertension , Continue lisinopril 5 mg daily, Lopressor 25 mg twice daily. Regards to hyperlipidemia , continue Lipitor Regards to coronary artery disease, Continue patient on Plavix 75 mg daily, Lopressor 25 mg twice daily, Crestor 20 mg daily. In regards to acute anemia,continue to monitor H&H transfuse for hemodynamic instability or hemoglobin less than 7, continue iron supplementation In regards to diabetes mellitus, monitor blood sugar levels, continue current insulin regimen Labs and medication were reviewed.. Continue same treatment. Continue with symptomatic treatment. Resume home medication. Monitor labs and vitals. DVT and GI prophylaxis. Further recommendations as per clinical course of the patient Dictation was produced using [employer] dictation software. please excuse any grammatical, word or spelling errors. Objective - Vital Signs Vital signs: Vital Signs Temp 98 F 06/08/23 08:00 Pulse 77 06/08/23 08:00 Resp 16 06/08/23 08:00 BP 160/85 06/08/23 08:00 Pulse Ox 98 06/08/23 09:03 FiO2 Intake & Output 06/07/23 06/08/23 06/08/23 18:59 06:59 18:59 Intake Total 943 Output Total 100 400 Balance 843 -400 Weight 93.44 kg Intake: IV 651 Blood Product 292 Rc Pheresis As-3 Unit 292 [id number] Output: Urine 400 Estimated Blood Loss 100 Other: Voiding Method External Catheter Diaper External Catheter # Voids 2 # Bowel Movements 1 - Labs CBC & Chem 7: 06/07/23 07:45 06/07/23 07:45 Labs: Abnormal Lab Results - Last 24 Hours (Table) 06/07/23 06/07/23 06/07/23 Range/Units 07:45 07:45 07:45 Sodium 135 L (137-145) mmol/L Carbon Dioxide 31 H (22-30) mmol/L BUN 6 L (7-17) mg/dL Glucose 56 L (74-99) mg/dL POC Glucose (mg/dL) (70-110) mg/dL Calcium 6.3 L* (8.4-10.2) mg/dL Albumin 1.8 L (3.5-5.0) g/dL Crossmatch See Detail 06/07/23 06/07/23 06/07/23 Range/Units 09:49 10:07 23:55 Sodium (137-145) mmol/L Carbon Dioxide (22-30) mmol/L BUN (7-17) mg/dL Glucose (74-99) mg/dL POC Glucose (mg/dL) 54 L 175 H 165 H (70-110) mg/dL Calcium (8.4-10.2) mg/dL Albumin (3.5-5.0) g/dL Crossmatch 06/08/23 Range/Units 06:07 Sodium (137-145) mmol/L Carbon Dioxide (22-30) mmol/L BUN (7-17) mg/dL Glucose (74-99) mg/dL POC Glucose (mg/dL) 234 H (70-110) mg/dL Calcium (8.4-10.2) mg/dL Albumin (3.5-5.0) g/dL Crossmatch Microbiology - Last 24 Hours (Table) 06/05/23 12:50 Blood Culture - Preliminary Blood
--- NOTE | 2023-06-08 14:17 | P.PN ---
Subjective Progress Note Date: 06/08/23 Principal diagnosis: Right lower extremity critical limb ischemia Patient seen and examined. Complaining of pain at the right leg on amputation side from the knee down. She states she is getting pain medication vyhasj-jlo-hseoh without significant improvement. She denies any fevers, chills, chest pain or shortness of breath. Objective - Vital Signs Vital signs: Vital Signs Temp 98 F 06/08/23 08:00 Pulse 77 06/08/23 12:00 Resp 16 06/08/23 12:00 BP 170/79 06/08/23 12:00 Pulse Ox 99 06/08/23 12:00 FiO2 Intake & Output 06/07/23 06/08/23 06/08/23 18:59 06:59 18:59 Intake Total 943 750 Output Total 100 400 Balance 843 -400 750 Weight 93.44 kg Intake: IV 651 Intake, IV Titration 750 Amount DAPTOmycin 450 mg In 50 Sodium Chloride 0.9% 50 ml @ 100 mls/hr IVPB Q24H [facility] Rx#:[id number] Meropenem 1 gm In Sodium 100 Chloride 0.9% 100 ml @ 33 .3 mls/hr IVPB Q8HR [facility] Rx#:[id number] Sodium Chloride 0.9% 1, 600 000 ml @ 75 mls/hr IV . [id number] [facility] Rx#:[id number] Blood Product 292 Rc Pheresis As-3 Unit 292 [id number] Output: Urine 400 Estimated Blood Loss 100 Other: Voiding Method External Catheter Diaper Diaper External Catheter External Catheter # Voids 2 # Bowel Movements 1 - Exam Right prhng-xas-acfh indications site with heart dressing in place Moderate tenderness to palpation - Constitutional General appearance: Present: morbidly obese - Labs CBC & Chem 7: 06/07/23 07:45 06/07/23 07:45 Labs: Abnormal Lab Results - Last 24 Hours (Table) 06/07/23 06/07/23 06/07/23 Range/Units 07:45 07:45 23:55 POC Glucose (mg/dL) 165 H (70-110) mg/dL Albumin 1.8 L (3.5-5.0) g/dL Crossmatch See Detail 06/08/23 06/08/23 Range/Units 06:07 11:35 POC Glucose (mg/dL) 234 H 168 H (70-110) mg/dL Albumin (3.5-5.0) g/dL Crossmatch Microbiology - Last 24 Hours (Table) 06/05/23 12:50 Blood Culture - Preliminary Blood Assessment and Plan Assessment: 1. Right lower extremity infected wound POD 1 Above knee amputation 2. Right groin wound status post hematoma evacuation 3. Hypokalemia 4. 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 History of left external iliac artery occlusion 6. Coronary artery disease status post stenting mid RCA 04/04/2023 9. History of DVTs 10. Diabetes mellitus 11. History CVA Plan: 1. Continue pain control. Discussed changing Neurontin to Lyrica if fan pain persists. 2. Continue antibiotics per recommendations from infectious disease 3. Local wound care to right groin 4. PT OT to evaluate
[2023-06-08 16:45] LABS: Glucose,Whole Blood 117 mg/dL (70-110)
[2023-06-08] MEDS: ALPRAZolam 0.25 MG TAB PO SCH (16:52)
[2023-06-08] MEDS: ACETAMINOPHEN TAB 325 MG TAB PO PRN (18:43)
[2023-06-08 20:09] LABS: Glucose,Whole Blood 110 mg/dL (70-110)
[2023-06-09] MEDS: ALPRAZolam 0.25 MG TAB PO SCH ×4 (00:40→20:58)
[2023-06-09] MEDS: MELATONIN 3 MG TABLET PO SCH ×2 (00:40→20:58)
[2023-06-09] MEDS: MEROPENEM 1 GM in SODIUM CHLORIDE 0.9% 100 ML IVPB SCH ×2 (00:40→08:56)
[2023-06-09] MEDS: ACETAMINOPHEN TAB 325 MG TAB PO PRN (02:32)
[2023-06-09] MEDS: HYDROmorphone 1 MG/ML 1 ML SYRINGE IVP PRN (05:26)
[2023-06-09 05:29] LABS: Glucose,Whole Blood 159 mg/dL (70-110)
[2023-06-09 06:10] LABS: Glucose,Whole Blood 207 mg/dL (70-110)
[2023-06-09] MEDS: INSULIN ASPART (NovoLOG) 100 UNIT/ML VIAL SQ SCH ×4 (06:13→21:04)
[2023-06-09] MEDS: GABAPENTIN 400 MG CAP PO SCH ×3 (08:55→20:58)
[2023-06-09] MEDS: METOPROLOL TARTRATE 25 MG TAB PO SCH ×2 (08:55→20:58)
[2023-06-09] MEDS: lisinopriL 5 MG TAB PO SCH (08:55)
[2023-06-09] MEDS: APIXABAN 5 MG TAB PO SCH ×2 (08:55→20:58)
[2023-06-09] MEDS: CLOPIDOGREL 75 MG TAB PO SCH (08:55)
[2023-06-09] MEDS: POTASSIUM CHLORIDE ER 10 MEQ TAB.ER.PRT PO SCH ×2 (08:55→20:58)
[2023-06-09] MEDS: DOCUSATE 100 MG CAP PO SCH (08:55)
[2023-06-09] MEDS: DULoxetine HCL 60 MG CAPSULE.DR PO SCH (08:55)
[2023-06-09] MEDS: PANTOPRAZOLE 40 MG TABLET PO SCH (08:56)
[2023-06-09] MEDS: FERROUS SULFATE 325 MG TAB PO SCH ×2 (08:56→20:58)
[2023-06-09] MEDS: HYDROcodone/APAP 5-325MG 1 EACH TAB PO PRN (11:32)
[2023-06-09 11:57] LABS: Glucose,Whole Blood 141 mg/dL (70-110)
--- NOTE | 2023-06-09 13:33 | P.PN ---
Subjective Progress Note Date: 06/07/23 Principal diagnosis: Right leg wound infection Patient is a 63-year-old female with a past medical history significant for diabetes mellitus peripheral arterial disease coronary disease patient did have PAD and bypass graft with CryoVein right common thromboendarterectomy and right groin hematoma evacuation as well as right Achilles wound debridement and skin graft application patient has been sent to the ER by the home care nurse concerning for infection of the right lower extremity, patient is status post Sharp excisional debridement right lower extremity wound measuring 23 x 9 x 2.5 cm to muscle with undermining at the 12 o'clock position of 8.7 cm completed on 05/30/2023, the patient is status post right qnwaw-rry-kbdt amputation completed on 06/07/2023 On today's evaluation that is 06/07/2023, the patient remains to be afebrile, the patient is breathing comfortably on room air and denies any shortness of breath, the patient denies any chest pain or cough, patient denies nausea/vomiting or diarrhea and no abdominal pain, still complaining of pain to the right AKA site Patient white count 4.5, creatinine is 0.54, cultures are currently growing Pse udomonas enterococcus and Proteus Objective - Vital Signs Vital signs: Vital Signs Temp 98.3 F 06/07/23 12:01 Pulse 63 06/07/23 12:45 Resp 16 06/07/23 12:45 BP 123/61 06/07/23 12:45 Pulse Ox 99 06/07/23 12:45 FiO2 Intake & Output 06/06/23 06/07/23 06/07/23 18:59 06:59 18:59 Intake Total 420 240 943 Output Total 200 100 Balance 220 240 843 Weight 93.44 kg 93.44 kg Intake: IV 651 Oral 420 240 Blood Product 292 Rc Pheresis As-3 Unit 292 [id number] Output: Urine 200 Estimated Blood Loss 100 Other: Voiding Method External Catheter External Catheter External Catheter # Voids 1 1 # Bowel Movements 1 - Exam GENERAL DESCRIPTION: Middle-aged female lying in bed in no distress RESPIRATORY SYSTEM: Unlabored breathing , clear to auscultation anteriorly HEART: S1 S2 regular rate and rhythm , ABDOMEN: Soft , no tenderness EXTREMITIES: Right AKA site is currently dressed - Labs CBC & Chem 7: 06/07/23 07:45 06/07/23 07:45 Labs: Abnormal Lab Results - Last 24 Hours (Table) 06/06/23 06/06/23 06/07/23 Range/Units 16:19 19:52 07:45 RBC 3.25 L (3.80-5.40) m/uL Hgb 8.6 L D (11.4-16.0) gm/dL Hct 27.5 L (34.0-46.0) % RDW 17.5 H (11.5-15.5) % Sodium (137-145) mmol/L Carbon Dioxide (22-30) mmol/L BUN (7-17) mg/dL Glucose (74-99) mg/dL POC Glucose (mg/dL) 220 H 174 H (70-110) mg/dL Calcium (8.4-10.2) mg/dL Crossmatch 06/07/23 06/07/23 06/07/23 Range/Units 07:45 07:45 09:49 RBC (3.80-5.40) m/uL Hgb (11.4-16.0) gm/dL Hct (34.0-46.0) % RDW (11.5-15.5) % Sodium 135 L (137-145) mmol/L Carbon Dioxide 31 H (22-30) mmol/L BUN 6 L (7-17) mg/dL Glucose 56 L (74-99) mg/dL POC Glucose (mg/dL) 54 L (70-110) mg/dL Calcium 6.3 L* (8.4-10.2) mg/dL Crossmatch See Detail 06/07/23 Range/Units 10:07 RBC (3.80-5.40) m/uL Hgb (11.4-16.0) gm/dL Hct (34.0-46.0) % RDW (11.5-15.5) % Sodium (137-145) mmol/L Carbon Dioxide (22-30) mmol/L BUN (7-17) mg/dL Glucose (74-99) mg/dL POC Glucose (mg/dL) 175 H (70-110) mg/dL Calcium (8.4-10.2) mg/dL Crossmatch Microbiology - Last 24 Hours (Table) 06/05/23 12:50 Blood Culture - Preliminary Blood Assessment and Plan (1) Cellulitis of right leg Current Visit: Yes Status: Acute Code(s): L03.115 - CELLULITIS OF RIGHT LOWER LIMB SNOMED Code(s): 54961375425613280 (2) Leg wound, right Current Visit: Yes Status: Acute Code(s): S81.801A - UNSPECIFIED OPEN WOUND, RIGHT LOWER LEG, INITIAL ENCOUNTER SNOMED Code(s): 977217810 Plan: 1patient presented to hospital with sepsis in this patient with a fever elevated white count source likely her right lower extremity infected wound and second cellulitis likely from gram-positive skin jesus however the patient recently has grown Pseudomonas from the area could be related to the same pathogen. 2patient did have a vancomycin allergy that will limit the number of anti biotics safe to use. 3patient is status post surgical debridement and deep culture, with initial cu lture growing Pseudomonas enterococcus and Proteus 4-patient is s/p amputation per vascular surgery completed on 06/07/2023 5-patient did have a new fever for the patient did have repeat a blood culture which are so far negative 6-patient to meropenem and daptomycin , while waiting for repeat cultures to finalize ,Dictation was produced using [employer] dictation software. please excuse any grammatical, word or spelling errors. Time with Patient: Less than 30
--- NOTE | 2023-06-09 13:37 | P.PN ---
Subjective Progress Note Date: 06/08/23 Principal diagnosis: Right leg wound infection Patient is a 63-year-old female with a past medical history significant for diabetes mellitus peripheral arterial disease coronary disease patient did have PAD and bypass graft with CryoVein right common thromboendarterectomy and right groin hematoma evacuation as well as right Achilles wound debridement and skin graft application patient has been sent to the ER by the home care nurse concerning for infection of the right lower extremity, patient is status post Sharp excisional debridement right lower extremity wound measuring 23 x 9 x 2.5 cm to muscle with undermining at the 12 o'clock position of 8.7 cm completed on 05/30/2023, the patient is status post right vctbb-rjv-dyrk amputation completed on 06/07/2023 On today's evaluation that is 06/08/2023, the patient continue to be afebrile, the patient is breathing comfortably on room air and denies chest pain or cough, patient denies nausea/vomiting or diarrhea and no abdominal pain, Pt is still complaining of pain to the right AKA site Patient white count 4.5, creatinine is 0.54 as of 06/07/2023, cultures are currently growing Pseudomonas enterococcus and Proteus Objective - Vital Signs Vital signs: Vital Signs Temp 98.1 F 06/08/23 20:00 Pulse 74 06/08/23 20:00 Resp 18 06/08/23 20:00 BP 132/70 06/08/23 20:00 Pulse Ox 92 L 06/08/23 20:00 FiO2 Intake & Output 06/08/23 06/08/23 06/09/23 06:59 18:59 05:59 Intake Total 750 Output Total 400 500 Balance -400 250 Intake: Intake, IV Titration 750 Amount DAPTOmycin 450 mg In 50 Sodium Chloride 0.9% 50 ml @ 100 mls/hr IVPB Q24H [facility] Rx#:[id number] Meropenem 1 gm In Sodium 100 Chloride 0.9% 100 ml @ 33 .3 mls/hr IVPB Q8HR [facility] Rx#:[id number] Sodium Chloride 0.9% 1, 600 000 ml @ 75 mls/hr IV . [id number] [facility] Rx#:[id number] Output: Urine 400 500 Other: Voiding Method Diaper Diaper Diaper External Catheter External Catheter External Catheter # Voids 2 # Bowel Movements 1 - Exam GENERAL DESCRIPTION: Middle-aged female lying in bed in no distress RESPIRATORY SYSTEM: Unlabored breathing , clear to auscultation anteriorly HEART: S1 S2 regular rate and rhythm , ABDOMEN: Soft , no tenderness EXTREMITIES: Right AKA site is currently dressed - Labs CBC & Chem 7: 06/07/23 07:45 06/07/23 07:45 Labs: Abnormal Lab Results - Last 24 Hours (Table) 06/07/23 06/08/23 06/08/23 Range/Units 23:55 06:07 11:35 POC Glucose (mg/dL) 165 H 234 H 168 H (70-110) mg/dL 06/08/23 Range/Units 16:44 POC Glucose (mg/dL) 117 H (70-110) mg/dL Microbiology - Last 24 Hours (Table) 06/05/23 12:50 Blood Culture - Preliminary Blood Assessment and Plan (1) Cellulitis of right leg Current Visit: Yes Status: Acute Code(s): L03.115 - CELLULITIS OF RIGHT LOWER LIMB SNOMED Code(s): 44405060017606578 (2) Leg wound, right Current Visit: Yes Status: Acute Code(s): S81.801A - UNSPECIFIED OPEN WOUND, RIGHT LOWER LEG, INITIAL ENCOUNTER SNOMED Code(s): 282145889 Plan: 1patient presented to hospital with sepsis in this patient with a fever elevated white count source likely her right lower extremity infected wound and second cellulitis likely from gram-positive skin jesus however the patient recently has grown Pseudomonas from the area could be related to the same pathogen. 2patient did have a vancomycin allergy that will limit the number of antibiotics safe to use. 3patient is status post surgical debridement and deep culture, with initial culture growing Pseudomonas enterococcus and Proteus 4-patient is s/p amputation per vascular surgery completed on 06/07/2023 5-patient did have a new fever for the patient did have repeat a blood culture which are so far negative 6-patient to meropenem and daptomycin , however if the repeat cultures negative antibiotics will be safely discontinued as infected part is removed ,Dictation was produced using [email or web address] dictation software. please excuse any grammatical, word or spelling errors. Time with Patient: Less than 30
--- NOTE | 2023-06-09 13:39 | P.PN ---
Subjective Progress Note Date: 06/09/23 Principal diagnosis: Right leg wound infection Patient is a 63-year-old female with a past medical history significant for diabetes mellitus peripheral arterial disease coronary disease patient did have PAD and bypass graft with CryoVein right common thromboendarterectomy and right groin hematoma evacuation as well as right Achilles wound debridement and skin graft application patient has been sent to the ER by the home care nurse concerning for infection of the right lower extremity, patient is status post Sharp excisional debridement right lower extremity wound measuring 23 x 9 x 2.5 cm to muscle with undermining at the 12 o'clock position of 8.7 cm completed on 05/30/2023, the patient is status post right jqgms-kgx-fdmx amputation completed on 06/07/2023 On today's evaluation that is 06/09/2023, the patient denies any fever or any chills, the patient is breathing comfortably on room air and no need for supplemental oxygen, the patient denies any chest pain and no cough or sputum production, patient denies Abdominal pain however has developed significant diarrhea per the nursing staff , Pt is still complaining of pain to the right AKA site Patient white count 4.5, creatinine is 0.54 as of 06/07/2023 no lab draw today, cultures are currently growing Pseudomonas enterococcus and Proteus Objective - Vital Signs Vital signs: Vital Signs Temp 97.7 F 06/09/23 08:00 Pulse 70 06/09/23 11:31 Resp 16 06/09/23 11:31 BP 154/82 06/09/23 11:31 Pulse Ox 97 06/09/23 11:31 FiO2 Intake & Output 06/08/23 06/09/23 06/09/23 19:59 06:59 18:59 Intake Total Output Total Balance Intake: Intake, IV Titration Amount DAPTOmycin 450 mg In Sodium Chloride 0.9% 50 ml @ 100 mls/hr IVPB Q24H [facility] Rx#:[id number] Meropenem 1 gm In Sodium Chloride 0.9% 100 ml @ 33 .3 mls/hr IVPB Q8HR [facility] Rx#:[id number] Sodium Chloride 0.9% 1, 000 ml @ 75 mls/hr IV . [id number] [facility] Rx#:[id number] Output: Urine Other: Voiding Method Diaper External Catheter - Exam GENERAL DESCRIPTION: Middle-aged female lying in bed in no distress RESPIRATORY SYSTEM: Unlabored breathing , clear to auscultation anteriorly HEART: S1 S2 regular rate and rhythm , ABDOMEN: Soft , no tenderness EXTREMITIES: Right AKA site is currently dressed - Labs CBC & Chem 7: 06/07/23 07:45 06/07/23 07:45 Labs: Abnormal Lab Results - Last 24 Hours (Table) 06/08/23 06/09/23 06/09/23 Range/Units 16:44 05:27 06:08 POC Glucose (mg/dL) 117 H 159 H 207 H (70-110) mg/dL 06/09/23 Range/Units 11:56 POC Glucose (mg/dL) 141 H (70-110) mg/dL Microbiology - Last 24 Hours (Table) 06/05/23 12:50 Blood Culture - Preliminary Blood Assessment and Plan (1) Cellulitis of right leg Current Visit: Yes Status: Acute Code(s): L03.115 - CELLULITIS OF RIGHT LOWER LIMB SNOMED Code(s): 07014036622151030 (2) Leg wound, right Current Visit: Yes Status: Acute Code(s): S81.801A - UNSPECIFIED OPEN WOUND, RIGHT LOWER LEG, INITIAL ENCOUNTER SNOMED Code(s): 034189343 Plan: 1patient presented to hospital with sepsis in this patient with a fever elevated white count source likely her right lower extremity infected wound and second cellulitis likely from gram-positive skin jesus however the patient recently has grown Pseudomonas from the area could be related to the same pathogen. 2patient did have a vancomycin allergy that will limit the number of antibiotics safe to use. 3patient is status post surgical debridement and deep culture, with initial culture growing Pseudomonas enterococcus and Proteus 4-patient is s/p amputation per vascular surgery completed on 06/07/2023 5-patient has developed significant diarrhea possible antibiotic associated we will check a stool for C. diff and treat if positive add Questran for symptomatic relief we will go ahead and discontinue meropenem and daptomycin Son at the bedside and multiple questions were answered ,Dictation was produced using [employer] software. please excuse any grammatical, word or spelling errors. Time with Patient: Less than 30
--- NOTE | 2023-06-09 13:49 | P.PN ---
Subjective Progress Note Date: 06/09/23 This is a 63-year-old female patient of mine with history of CAD with multiple cardiac stents in mid RCA, mid LAD, obtuse marginal branch and followed by Dr. Bill closely, peripheral artery disease with previous stenting done as well has amputation of the right great toe secondary to osteomyelitis, CVA with no residual deficits, hypertension, COPD, diabetes mellitus type 2, previous multiple DVT and PE requiring chronic anticoagulation on eliquis, history of GI bleed secondary to antral gastritis, esophagitis, vitamin D deficiency, autonomic hypotension on midodrine, history of left humerus fracture. resume with patient April 02 through April 15 at which time she presented to the hospital due to right second and fifth toe ischemic change. A CT angiogram showed evidence of occlusion of the right superficial femoral artery and 2 occluded segments 1 in the mid thigh about 3 cm and another into the right popliteal artery at 13 cm length, occlusion of the right iliac artery into the common femoral artery. Patient was seen in consultation by vascular surgery. Arterial ultrasound showed lower extremity abnormal on the right with HERMINIA suggests severe atherosclerotic disease. Critical stenosis not excluded. Plan for open bypass surgery with vascular surgery was made but a cardiology consult was requested. Patient was seen by Dr. Bill and had chest pain complaint and Due to critical in-stent restenosis and subsequently underwent cardiac catheterization which revealed critical in-stent restenosis of the RCA and Dr. Bill present performed stenting of the RCA. There was also intermediate disease in the first obtuse marginal branch of the left circumflex, intermediate disease involving the LAD and mildly elevated left sided filling pressures. Access was obtained from the right groin. Unfortunately following removal of the sheath, patient developed a significant hematoma to the right groin into the right pelvic area measuring up to 11.9 cm requiring ICU management, transfusion of packed RBCs and vasopressors for brief period along with IV fluid resuscitation. Patient was stabilized and discharged to home with home care but she returned with worsening wounds, hypotension with blood pressure of 84/57, leukocytosis of 26. She was seen by multiple consultants including wound care, infectious disease, vascular surgery. Patient underwent right common femoral to tibial vein bypass with debridement of a right exposed Achilles tendon heel, second third and fourth toes of the right foot and drainage of right inguinal hematoma with wound VAC with subsequent hematoma evacuation on 04/30. Patient was stabilized and discharged to [facility] for subacute rehab. She returned to the emergency department about few weeks back and she was diagnosed with acute pancreatitis and [facility] home because she refused to go back to [facility] and she recently underwent a skin grat to the right achilles lower leg area that was done by Umair Tejeda was Saturday before yesterday and carin was discharged home in a stable condition with a follow up last Saturday and then last and had the home care nurse coming for dressing changes and she was found to have black eschar on the back of her leg with purulent material coming out of her leg and right gron with a split wound where the LITO was and she appeared to have sepsis , she was started on IV Cefepime after obtaining blood cultures and wound cultures and she was admitted to the Hospital with vacular surgery consult along with ID consult 05/29: Patient has been seen by vascular surgery with plan for debridement of the Achilles area with possible amputation tomorrow. Eliquis has been discontinued. Patient has been maintained on Plavix. Blood pressure 149/85, heart rate is in the 70s, afebrile, pulse ox 94% on room air. WBC 11.6, hemoglobin 10.6, platelet count 269. Sodium 138, potassium 3.2 and will be replaced. Creatinine 0.6 BUN 6. Capillary blood glucose running between 85 and 129. Alkaline phosphatase 131. Gram stain from the wound right leg reveals moderate polymorphonuclear leukocytes, many gram-positive cocci and many gram- negative bacilli. Patient has been continued on cefepime 2 g IV piggyback every 12 hours. Patient is followed by infectious disease as well. Consult is in place for wound care center. 05/30: Patient is scheduled for debridement of the right lower extremity wound this afternoon with Dr. Mendoza. Deep cultures are to be obtained. Patient is continued on cefepime and daptomycin per Dr. Sheppard. Fevers are improving. Heart rate is in the 70s and 80s, blood pressure 128/57, pulse ox 94% on room air. WBC 10.3, hemoglobin 9.8, platelet count 234. Sodium 137, potassium 3.2, CO2 36, BUN 7 creatinine 0.67. CBG [id number]. Wound cultures are showing gram- negative bacilli. Blood culture no growth at 48 hours. Patient has been seen by the wound care team [facility] moistened gauze dry gauze to the right groin wound. 05/31: Yesterday, patient underwent a sharp excisional debridement of the right lower extremity wound but due to the extent of the wound, poor tissue quality and lack of adequate flap potential, it has been recommended the patient undergo kulhr-omj-vvul amputation. Cardiology has cleared the patient for surgical intervention knowing that she is at high risk but no absolute contraindications. Recommendations are to continue patient on aspirin while plavix on hold. We will plan on Lovenox once eliquis is discontinued prior to surgery. Patient continues to complain of pain to the right ankle foot area. She denies having any chest pain. No shortness of breath. She complains of feeling tired. Repeat blood work reveals WBC 9.4, hemoglobin 8.6, platelet count 236. Sodium 136, potassium 3.5, creatinine 0.64. Blood blood glucose this morning prior to lunch was 49. Otherwise blood sugars are running on the lower side in general 65-115. Scheduled NovoLog 10 units with meals will be discontinued and long- acting insulin was decreased. 06/03: Patient continues to be followed by vascular surgery with plan for right wjbxo-omo-tzff amputation on Saturday. Patient has been seen by cardiology and they've signed off. Plan is to continue aspirin 81 mg daily until patient can be resumed back on Plavix. Patient is also on eliquis transition to Lovenox until eliquis can be resumed following surgery. Antibiotics have been changed to meropenem per infectious disease. The blood glucose running between 159 and 175. 06/04: Patient states that pain to the right foot is a #6 out of 7. Plan is continued for amputation on Saturday with Dr. Mendoza. Capillary blood glucose running between 168 and 227. Patient has been afebrile, heart rate 66, blood pressure 133/70. Patient has no new concerns. She continues to have minimal appetite. Family members are at bedside and all questions have been answered. 06/05: Patient remains afebrile, heart rate in the 70s to 90s, blood pressure 163/75, pulse ox 99% on room air. Patient continues to not have very much appetite. She also continues to have pain in the right foot ankle. Patient is having more anxiety related to upcoming surgery for which Xanax will be added. WBC 5, hemoglobin 10.5, platelet count 279. Sodium 133, potassium 3.9, chloride 96, CO2 27, BUN 8 and creatinine 0.62. Blood glucose running 126-155. 06/06: No new concerns from the patient. She is quite anxious in anticipation of surgery for tomorrow. She is scheduled for right krvup-xfu-lors amputation tomorrow with Dr. Mendoza. Capillary blood glucose running between 101 and 168. Patient remains afebrile, heart rate in the 70s, blood pressure 162/81, pulse ox 96% on room air. 06/07: Patient is status post right aklzn-bqf-qbrk amputation. Patient is seen postoperatively back in her room. Her pain is currently fairly well controlled. Repeat blood work reveals hemoglobin of 8.6. Sodium 135, potassium 3.6, BUN 6 and creatinine 0.54. Blood sugar this morning was 54. Calcium 6.3. Patient has been transfused 1 unit of packed RBCs. Heart rate is 63, blood pressure 123/61 and pulse ox 99% on 3 L. Patient will be resumed back on eliquis and Plavix tomorrow.[id number] 06/08. Dr. Hess covering for Dr. Tejeda. Patient is status post right csnqn-uyn-prlo amputation. No acute issues overnight. Complaining of pain at the stump site. Patient gets anxious easily. 06/09. Patient seen and examined. Patient having significant amounts of diarrhea, antibiotics discontinued by ID. We'll check stool for C. diff. Vital signs stable REVIEW OF SYSTEMS: CONSTITUTIONAL: No fever, no malaise,. CARDIOVASCULAR: No chest pain, no palpitations, no syncope. PULMONARY: No shortness of breath, no cough, GASTROINTESTINAL: No vomiting, no abdominal pain. NEUROLOGICAL: No headaches, no weakness, PHYSICAL EXAMINATION: GENERAL: The patient is alert and oriented x3, not in any acute distress. Well developed, well nourished. HEENT: Pupils are round and equally reacting to light. EOMI. No scleral icterus. No conjunctival pallor. Normocephalic, atraumatic. No pharyngeal erythema. No thyromegaly. CARDIOVASCULAR: S1 and S2 present. No murmurs, rubs, or gallops. PULMONARY: Chest is clear to auscultation, no wheezing or crackles. ABDOMEN: Soft, nontender, nondistended, normoactive bowel sounds. No palpable organomegaly. MUSCULOSKELETAL: Right AKA EXTREMITIES: No cyanosis, clubbing, or pedal edema. NEUROLOGICAL: Gross neurological examination did not reveal any focal deficits. SKIN: No rashes. Assessment and plan Right leg infected/failed graft with sepsis Recent right common femoral to tibial vein bypass with debridement of the right exposed Achilles tendon heel second third and fifth toes of the right foot, also drainage of the right inguinal hematoma post removal of the LITO drain with a split wound in the right groin Coronary artery disease with recent stent of the RCA due to recent in-stent restenosis. Diabetes mellitus type 2 uncontrolled with hyperglycemia. Hyperlipidemia. Chronic DVT and PEs. Continue patient on eliquis 5 mg twice daily. Chronic anemia with recent acute blood loss anemia Hypertension and hypertensive cardiovascular disease Gastroesophageal reflux disease Diabetic neuropathy Generalized anxiety disorder, recurrent depression. Monitor vital signs Monitor CBC Monitor CMP Continue telemetry monitoring Encourage use of incentive spirometer status post right tsiqm-yni-epuu amputation Antibiotics discontinued Check stool for C. diff ID following Vascular surgery following In regards to hypertension , Continue lisinopril 5 mg daily, Lopressor 25 mg twice daily. Regards to hyperlipidemia , continue Lipitor Regards to coronary artery disease, Continue patient on Plavix 75 mg daily, Lopressor 25 mg twice daily, Crestor 20 mg daily. In regards to acute anemia,continue to monitor H&H transfuse for hemodynamic instability or hemoglobin less than 7, continue iron supplementation In regards to diabetes mellitus, monitor blood sugar levels, continue current insulin regimen Labs and medication were reviewed.. Continue same treatment. Continue with symptomatic treatment. Resume home medication. Monitor labs and vitals. DVT and GI prophylaxis. Further recommendations as per clinical course of the patient Dictation was produced using [employer] dictation software. please excuse any grammatical, word or spelling errors. Objective - Vital Signs Vital signs: Vital Signs Temp 97.7 F 06/09/23 08:00 Pulse 71 06/09/23 08:00 Resp 16 06/09/23 08:00 BP 168/84 06/09/23 08:00 Pulse Ox 98 06/09/23 08:00 FiO2 Intake & Output 06/08/23 06/09/23 06/09/23 19:59 06:59 18:59 Intake Total Output Total Balance Intake: Intake, IV Titration Amount DAPTOmycin 450 mg In Sodium Chloride 0.9% 50 ml @ 100 mls/hr IVPB Q24H [facility] Rx#:[id number] Meropenem 1 gm In Sodium Chloride 0.9% 100 ml @ 33 .3 mls/hr IVPB Q8HR [facility] Rx#:[id number] Sodium Chloride 0.9% 1, 000 ml @ 75 mls/hr IV . [id number] [facility] Rx#:[id number] Output: Urine Other: Voiding Method - Labs CBC & Chem 7: 06/07/23 07:45 06/07/23 07:45 Labs: Abnormal Lab Results - Last 24 Hours (Table) 06/08/23 06/08/23 06/09/23 Range/Units 11:35 16:44 05:27 POC Glucose (mg/dL) 168 H 117 H 159 H (70-110) mg/dL 06/09/23 Range/Units 06:08 POC Glucose (mg/dL) 207 H (70-110) mg/dL Microbiology - Last 24 Hours (Table) 06/05/23 12:50 Blood Culture - Preliminary Blood
[2023-06-09] MEDS: CHOLESTYRAMINE (WITH SUGAR) 4 GM PACKET PO SCH (16:00)
[2023-06-09] MEDS: HYDROmorphone 0.5 MG/0.5 ML SYRINGE IVP PRN ×2 (16:01→20:49)
[2023-06-09] MEDS: ERGOCALCIFEROL 1,250 MCG (50,000 IU) CAPSULE PO SCH (16:01)
[2023-06-09 16:43] LABS: Glucose,Whole Blood 143 mg/dL (70-110)
[2023-06-09 20:12] LABS: Glucose,Whole Blood 175 mg/dL (70-110)
[2023-06-09] MEDS: INSULIN DETEMIR (LEVEMIR) 100 UNIT/ML SYR SQ SCH (20:59)
[2023-06-09] MEDS: LACTATED RINGERS 1,000 ML IV SCH (20:59)
[2023-06-10] MEDS: HYDROmorphone 0.5 MG/0.5 ML SYRINGE IVP PRN ×3 (01:03→10:35)
[2023-06-10 06:19] LABS: Glucose,Whole Blood 95 mg/dL (70-110)
[2023-06-10] MEDS: INSULIN ASPART (NovoLOG) 100 UNIT/ML VIAL SQ SCH ×4 (06:23→20:34)
[2023-06-10] MEDS: DOCUSATE 100 MG CAP PO SCH (07:50)
[2023-06-10 08:57] LABS: Anisocytosis Slight; HCT 31.1 % (34.0-46.0); HGB 9.9 gm/dL (11.4-16.0); Hypochromasia Marked; MCH 26.7 pg (25.0-35.0); MCHC 31.8 g/dL (31.0-37.0); MCV 84.1 fL (80.0-100.0); Mean Platelet Volume 8.4; Platelet Count 224 k/uL (150-450); Poikilocytosis Slight; RDW 17.8 % (11.5-15.5); WBC 2.9 k/uL (3.8-10.6)
[2023-06-10] MEDS: ALPRAZolam 0.25 MG TAB PO SCH ×2 (09:04→17:11)
[2023-06-10] MEDS: POTASSIUM CHLORIDE ER 10 MEQ TAB.ER.PRT PO SCH ×2 (09:04→21:24)
[2023-06-10] MEDS: FERROUS SULFATE 325 MG TAB PO SCH ×2 (09:04→21:25)
[2023-06-10] MEDS: DULoxetine HCL 60 MG CAPSULE.DR PO SCH ×2 (09:04→21:25)
[2023-06-10] MEDS: CHOLESTYRAMINE (WITH SUGAR) 4 GM PACKET PO SCH ×2 (09:04→17:11)
[2023-06-10] MEDS: GABAPENTIN 400 MG CAP PO SCH ×3 (09:04→21:24)
[2023-06-10] MEDS: lisinopriL 5 MG TAB PO SCH (09:04)
[2023-06-10] MEDS: CLOPIDOGREL 75 MG TAB PO SCH (09:04)
[2023-06-10] MEDS: APIXABAN 5 MG TAB PO SCH ×2 (09:05→21:25)
[2023-06-10] MEDS: PANTOPRAZOLE 40 MG TABLET PO SCH (09:05)
[2023-06-10] MEDS: METOPROLOL TARTRATE 25 MG TAB PO SCH ×2 (09:05→21:24)
[2023-06-10 09:10] LABS: ALT 11 U/L (4-34); AST 31 U/L (14-36); African American GFR (CKD) >90 (>60 ml/min/1.73 sqM); Albumin 1.9 g/dL (3.5-5.0); Alkaline Phosphatase 114 U/L (38-126); Anion Gap 2 mmol/L; Blood Urea Nitrogen 3 mg/dL (7-17); Calcium 6.5 mg/dL (8.4-10.2); Carbon Dioxide 37 mmol/L (22-30); Chloride 97 mmol/L (98-107); Glucose 63 mg/dL (74-99); Non-African American GFR(CKD) >90 (>60 ml/min/1.73 sqM); Potassium 3.1 mmol/L (3.5-5.1); Sodium 136 mmol/L (137-145); Total Bilirubin 0.6 mg/dL (0.2-1.3); Total Protein 4.8 g/dL (6.3-8.2)
[2023-06-10] MEDS: HYDROcodone/APAP 5-325MG 1 EACH TAB PO PRN (09:12)
--- NOTE | 2023-06-10 11:01 | P.PN ---
Subjective Progress Note Date: 06/10/23 Principal diagnosis: Right lower extremity infected wound Johann is seen today as a follow-up. She is status post right bfcsv-gyk-hesw amputation, she is postop day #3. She was seen by Rick and Fabricio higueras, and has a stump engagement mgr and rigid dressing in place. She states that her pain has not been well controlled. She states she is not sleeping well the last couple nights. She's been afebrile. She is scheduled to have physical therapy work with her today. Objective - Vital Signs Vital signs: Vital Signs Temp 98.9 F 06/10/23 04:00 Pulse 76 06/10/23 04:00 Resp 18 06/10/23 04:00 BP 146/75 06/10/23 04:00 Pulse Ox 94 L 06/10/23 09:06 FiO2 Intake & Output 06/09/23 06/10/23 06/10/23 18:59 06:59 18:59 Intake Total 918 Output Total 1300 Balance 918 -1300 Intake: Intake, IV Titration 800 Amount DAPTOmycin 450 mg In 100 Sodium Chloride 0.9% 50 ml @ 100 mls/hr IVPB Q24H [facility] Rx#:[id number] IV Fluid Continuation 700 600 ml @ 0 mls/hr IV .[facility] Rx#:[id number] Meropenem 1 gm In Sodium 100 Chloride 0.9% 100 ml @ 33 .3 mls/hr IVPB Q8HR [facility] Rx#:[id number] Oral 118 Output: Urine 1300 Other: Voiding Method Diaper Diaper External Catheter External Catheter - Exam General appearance: The patient is alert, oriented, appears in no acute distress. HET: Head is normocephalic and atraumatic. Pupils are equal and reactive. Neck: Supple. Abdomen: Soft, nontender, nondistended. Extremities: Right groin with dressing clean dry and intact. Right lower extremity with stump engagement mgr and rigid dressing in place. Dressing changed, qkbnv-xow-ltig amputation surgical site well approximated with sara, no drainage noted. Surrounding tissue pink and warm. Stump engagement mgr and rigid dressing reapplied. Neurological: No focal deficits. - Labs CBC & Chem 7: 06/10/23 08:07 06/10/23 08:07 Labs: Abnormal Lab Results - Last 24 Hours (Table) 06/09/23 06/09/23 06/09/23 Range/Units 11:56 16:38 20:11 WBC (3.8-10.6) k/uL RBC (3.80-5.40) m/uL Hgb (11.4-16.0) gm/dL Hct (34.0-46.0) % RDW (11.5-15.5) % Sodium (137-145) mmol/L Potassium (3.5-5.1) mmol/L Chloride (98-107) mmol/L Carbon Dioxide (22-30) mmol/L BUN (7-17) mg/dL Creatinine (0.52-1.04) mg/dL Glucose (74-99) mg/dL POC Glucose (mg/dL) 141 H 143 H 175 H (70-110) mg/dL Calcium (8.4-10.2) mg/dL Total Protein (6.3-8.2) g/dL Albumin (3.5-5.0) g/dL 06/10/23 06/10/23 Range/Units 08:07 08:07 WBC 2.9 L (3.8-10.6) k/uL RBC 3.70 L (3.80-5.40) m/uL Hgb 9.9 L (11.4-16.0) gm/dL Hct 31.1 L (34.0-46.0) % RDW 17.8 H (11.5-15.5) % Sodium 136 L (137-145) mmol/L Potassium 3.1 L (3.5-5.1) mmol/L Chloride 97 L (98-107) mmol/L Carbon Dioxide 37 H (22-30) mmol/L BUN 3 L (7-17) mg/dL Creatinine 0.39 L (0.52-1.04) mg/dL Glucose 63 L (74-99) mg/dL POC Glucose (mg/dL) (70-110) mg/dL Calcium 6.5 L (8.4-10.2) mg/dL Total Protein 4.8 L (6.3-8.2) g/dL Albumin 1.9 L (3.5-5.0) g/dL Assessment and Plan Assessment: 1. Right lower extremity infected wound status post right eyggj-wyv-mboe amputation 2. Right groin wound status post hematoma evacuation 3. Hypokalemia 4. 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 History of left external iliac artery occlusion 6. Coronary artery disease status post stenting mid RCA 04/04/2023 9. History of DVTs 10. Diabetes mellitus 11. History CVA Plan: 1. Resume anticoagulation and Plavix 2. Consistent carbohydrate diet, Glucerna added 3. Recommend PT/OT 4. Encourage activity as tolerated 5. Local wound care to right groin and right lower extremity 6. Incentive spirometer at bedside, continue use every hour 7. Nikolski increased to 7.5-325 mg, consider increasing gabapentin or changing to Lyrica 8. No further surgical intervention indicated, patient is cleared from vascular surgery for discharge Thank you for this consultation, we will continue to follow The impression and plan of care has been dictated as directed. Dr. Hughes I performed a history and examination of this patient, discussed the same with the dictator. I agree with the dictator's note ,documented as a scribe. Any additional findings or plans will be noted.
--- NOTE | 2023-06-10 11:13 | P.PN ---
Subjective Progress Note Date: 06/10/23 Principal diagnosis: Right leg wound infection Patient is a 63-year-old female with a past medical history significant for diabetes mellitus peripheral arterial disease coronary disease patient did have PAD and bypass graft with CryoVein right common thromboendarterectomy and right groin hematoma evacuation as well as right Achilles wound debridement and skin graft application patient has been sent to the ER by the home care nurse concerning for infection of the right lower extremity, patient is status post Sharp excisional debridement right lower extremity wound measuring 23 x 9 x 2.5 cm to muscle with undermining at the 12 o'clock position of 8.7 cm completed on 05/30/2023, the patient is status post right ynsut-amh-vevw amputation completed on 06/07/2023 On today's evaluation that is 06/10/2023, the patient remains to be afebrile, the patient is breathing comfortably on room air , the patient denies any chest pain or cough and no sputum production, patient did have some nausea but no vomiting no abdominal pain is still having diarrhea though slow down, pain to the right AK stump is controlled Patient white count is 2.9, creatinine is 0.39, stool for C. diff is negative, cultures are currently growing Pseudomonas enterococcus and Proteus Objective - Vital Signs Vital signs: Vital Signs Temp 98.1 F 06/10/23 09:00 Pulse 82 06/10/23 09:00 Resp 16 06/10/23 09:00 BP 154/86 06/10/23 09:00 Pulse Ox 94 L 06/10/23 09:06 FiO2 Intake & Output 06/09/23 06/10/23 06/10/23 18:59 06:59 18:59 Intake Total 918 Output Total 1300 700 Balance 918 -1300 -700 Intake: Intake, IV Titration 800 Amount DAPTOmycin 450 mg In 100 Sodium Chloride 0.9% 50 ml @ 100 mls/hr IVPB Q24H COUNTS INCLUDE 234 BEDS AT THE [facility] Rx#:[id number] IV Fluid Continuation 700 600 ml @ 0 mls/hr IV .STK- MED ONE Rx#:[id number] Meropenem 1 gm In Sodium 100 Chloride 0.9% 100 ml @ 33 .3 mls/hr IVPB Q8HR COUNTS INCLUDE 234 BEDS AT THE [facility] Rx#:[id number] Oral 118 Output: Urine 1300 700 Other: Voiding Method Diaper Diaper External Catheter External Catheter - Exam GENERAL DESCRIPTION: Middle-aged female lying in bed in no distress RESPIRATORY SYSTEM: Unlabored breathing , clear to auscultation anteriorly HEART: S1 S2 regular rate and rhythm , ABDOMEN: Soft , no tenderness EXTREMITIES: Right AKA site is currently dressed - Labs CBC & Chem 7: 06/10/23 08:07 06/10/23 08:07 Labs: Abnormal Lab Results - Last 24 Hours (Table) 06/09/23 06/09/23 06/09/23 Range/Units 11:56 16:38 20:11 WBC (3.8-10.6) k/uL RBC (3.80-5.40) m/uL Hgb (11.4-16.0) gm/dL Hct (34.0-46.0) % RDW (11.5-15.5) % Sodium (137-145) mmol/L Potassium (3.5-5.1) mmol/L Chloride (98-107) mmol/L Carbon Dioxide (22-30) mmol/L BUN (7-17) mg/dL Creatinine (0.52-1.04) mg/dL Glucose (74-99) mg/dL POC Glucose (mg/dL) 141 H 143 H 175 H (70-110) mg/dL Calcium (8.4-10.2) mg/dL Total Protein (6.3-8.2) g/dL Albumin (3.5-5.0) g/dL 06/10/23 06/10/23 Range/Units 08:07 08:07 WBC 2.9 L (3.8-10.6) k/uL RBC 3.70 L (3.80-5.40) m/uL Hgb 9.9 L (11.4-16.0) gm/dL Hct 31.1 L (34.0-46.0) % RDW 17.8 H (11.5-15.5) % Sodium 136 L (137-145) mmol/L Potassium 3.1 L (3.5-5.1) mmol/L Chloride 97 L (98-107) mmol/L Carbon Dioxide 37 H (22-30) mmol/L BUN 3 L (7-17) mg/dL Creatinine 0.39 L (0.52-1.04) mg/dL Glucose 63 L (74-99) mg/dL POC Glucose (mg/dL) (70-110) mg/dL Calcium 6.5 L (8.4-10.2) mg/dL Total Protein 4.8 L (6.3-8.2) g/dL Albumin 1.9 L (3.5-5.0) g/dL Assessment and Plan (1) Cellulitis of right leg Current Visit: Yes Status: Acute Code(s): L03.115 - CELLULITIS OF RIGHT LOWER LIMB SNOMED Code(s): 54394015407281485 (2) Leg wound, right Current Visit: Yes Status: Acute Code(s): S81.801A - UNSPECIFIED OPEN WOUND, RIGHT LOWER LEG, INITIAL ENCOUNTER SNOMED Code(s): 994191331 Plan: 1patient presented to hospital with sepsis in this patient with a fever elevated white count source likely her right lower extremity infected wound and second cellulitis likely from gram-positive skin jesus however the patient recently has grown Pseudomonas from the area could be related to the same pathogen. 2patient did have a vancomycin allergy that will limit the number of antibiotics safe to use. 3patient is status post surgical debridement and deep culture, with initial culture growing Pseudomonas enterococcus and Proteus 4-patient is s/p amputation per vascular surgery completed on 06/07/2023 5-patient has developed significant diarrhea possible antibiotic associated, stool for C. diff is negative to continue with the Questran for symptomatic relief encouraged to increase her yogurt and probiotics intake ,Dictation was produced using [employer] dictation software. please excuse any grammatical, word or spelling errors. Time with Patient: Less than 30
[2023-06-10 12:11] LABS: Glucose,Whole Blood 119 mg/dL (70-110)
[2023-06-10] MEDS ORDERED: Potassium Replacement Protocol 1 EACH MISC MISCELLANE PRN (12:40)
[2023-06-10] MEDS: HYDROcodone/APAP 7.5-325MG 1 EACH TAB PO PRN ×2 (14:03→21:41)
[2023-06-10] MEDS: POTASSIUM CHLORIDE ER 20 MEQ TAB.ER PO SCH ×2 (14:04→17:10)
--- NOTE | 2023-06-10 14:31 | P.PN ---
Subjective Progress Note Date: 06/10/23 HISTORY OF PRESENT ILLNESS This is a 63-year-old female patient of mine with history of CAD with multiple cardiac stents in mid RCA, mid LAD, obtuse marginal branch and followed by Dr. Bill closely, peripheral artery disease with previous stenting done as well has amputation of the right great toe secondary to osteomyelitis, CVA with no residual deficits, hypertension, COPD, diabetes mellitus type 2, previous multiple DVT and PE requiring chronic anticoagulation on eliquis, history of GI bleed secondary to antral gastritis, esophagitis, vitamin D deficiency, autono margot hypotension on midodrine, history of left humerus fracture. resume with patient April 02 through April 15 at which time she presented to the hospital due to right second and fifth toe ischemic change. A CT angiogram showed evidence of occlusion of the right superficial femoral artery and 2 occluded segments 1 in the mid thigh about 3 cm and another into the right popliteal artery at 13 cm length, occlusion of the right iliac artery into the common femoral artery. Patient was seen in consultation by vascular surgery. Arterial ultrasound showed lower extremity abnormal on the right with HERMINIA suggests severe atherosclerotic disease. Critical stenosis not excluded. Plan for open bypass surgery with vascular surgery was made but a cardiology consult was requested. Patient was seen by Dr. Bill and had chest pain complaint and Due to critical in-stent restenosis and subsequently underwent cardiac catheterization which revealed critical in-stent restenosis of the RCA and Dr. Bill present performed stenting of the RCA. There was also intermediate disease in the first obtuse marginal branch of the left circumflex, intermediate disease involving the LAD and mildly elevated left sided filling pressures. Access was obtained from the right groin. Unfortunately following removal of the sheath, patient developed a significant hematoma to the right groin into the right pelvic area measuring up to 11.9 cm requiring ICU management, transfusion of packed RBCs and vasopressors for brief period along with IV fluid resuscitation. Patient was stabilized and discharged to home with home care but she returned with worsening wounds, hypotension with blood pressure of 84/57, leukocytosis of 26. She was seen by multiple consultants including wound care, infectious disease, vascular surgery. Patient underwent right common femoral to tibial vein bypass with debridement of a right exposed Achilles tendon heel, second third and fourth toes of the right foot and drainage of right inguinal hematoma with wound VAC with subsequent hematoma evacuation on 04/30. Patient was stabili zed and discharged to [facility] for subacute rehab. She returned to the emergency department about few weeks back and she was diagnosed with acute pancreatitis and she was taken off of her gaand she was discharged home because she refused to go back to [facility] and she recently underwent a skin grat to the right achilles lower leg area that was done by Umair Tejeda was Saturday before yesterday and carin was discharged home in a stable condition with a follow up last Saturday and then last and had the home care nurse coming for dressing changes and she was found to have black eschar on the back of her leg with purulent material coming out of her leg and right gron with a split wound where the LITO was and she appeared to have sepsis , she was started on IV Cefepime after obtaining blood cultures and wound cultures and she was admitted to the Hospital with vacular surgery consult along with ID consult 05/29: Patient has been seen by vascular surgery with plan for debridement of the Achilles area with possible amputation tomorrow. Eliquis has been discontinued. Patient has been maintained on Plavix. Blood pressure 149/85, heart rate is in the 70s, afebrile, pulse ox 94% on room air. WBC 11.6, hemoglobin 10.6, platelet count 269. Sodium 138, potassium 3.2 and will be replaced. Creatinine 0.6 BUN 6. Capillary blood glucose running between 85 and 129. Alkaline phosphatase 131. Gram stain from the wound right leg reveals moderate polymorphonuclear leukocytes, many gram-positive cocci and many gram- negative bacilli. Patient has been continued on cefepime 2 g IV piggyback every 12 hours. Patient is followed by infectious disease as well. Consult is in place for wound care center. 05/30: Patient is scheduled for debridement of the right lower extremity wound this afternoon with Dr. Mendoza. Deep cultures are to be obtained. Patient is continued on cefepime and daptomycin per Dr. Sheppard. Fevers are improving. Heart rate is in the 70s and 80s, blood pressure 128/57, pulse ox 94% on room air. WBC 10.3, hemoglobin 9.8, platelet count 234. Sodium 137, potassium 3.2, CO2 36, BUN 7 creatinine 0.67. CBG [id number]. Wound cultures are showing gram- negative bacilli. Blood culture no growth at 48 hours. Patient has been seen by the wound care team with recommendations for Santyl, saline moistened gauze dry gauze to the right groin wound. 05/31: Yesterday, patient underwent a sharp excisional debridement of the right lower extremity wound but due to the extent of the wound, poor tissue quality and lack of adequate flap potential, it has been recommended the patient undergo cxgkh-pxs-uynp amputation. Cardiology has cleared the patient for surgical intervention knowing that she is at high risk but no absolute contraindications. Recommendations are to continue patient on aspirin while plavix on hold. We will plan on Lovenox once eliquis is discontinued prior to surgery. Patient continues to complain of pain to the right ankle foot area. She denies having any chest pain. No shortness of breath. She complains of feeling tired. Repeat blood work reveals WBC 9.4, hemoglobin 8.6, platelet count 236. Sodium 1 36, potassium 3.5, creatinine 0.64. Blood blood glucose this morning prior to lunch was 49. Otherwise blood sugars are running on the lower side in general 65-115. Scheduled NovoLog 10 units with meals will be discontinued and long- acting insulin was decreased. 06/03: Patient continues to be followed by vascular surgery with plan for right gezlf-crk-jbxi amputation on Saturday. Patient has been seen by cardiology and they've signed off. Plan is to continue aspirin 81 mg daily until patient can be resumed back on Plavix. Patient is also on eliquis transition to Lovenox until eliquis can be resumed following surgery. Antibiotics have been changed to meropenem per infectious disease. The blood glucose running between 159 and 175. 06/04: Patient states that pain to the right foot is a #6 out of 7. Plan is continued for amputation on Saturday with Dr. Mendoza. Capillary blood glucose ru nning between 168 and 227. Patient has been afebrile, heart rate 66, blood pressure 133/70. Patient has no new concerns. She continues to have minimal appetite. Family members are at bedside and all questions have been answered. 06/05: Patient remains afebrile, heart rate in the 70s to 90s, blood pressure 163/75, pulse ox 99% on room air. Patient continues to not have very much appetite. She also continues to have pain in the right foot ankle. Patient is having more anxiety related to upcoming surgery for which Xanax will be added. WBC 5, hemoglobin 10.5, platelet count 279. Sodium 133, potassium 3.9, chloride 96, CO2 27, BUN 8 and creatinine 0.62. Blood glucose running 126-155. 06/06: No new concerns from the patient. She is quite anxious in anticipation of surgery for tomorrow. She is scheduled for right nabwj-tkf-eylx amputation tomorrow with Dr. Mendoza. Capillary blood glucose running between 101 and 168. Patient remains afebrile, heart rate in the 70s, blood pressure 162/81, pulse ox 96% on room air. 06/07: Patient is status post right dzkdb-ixz-pueg amputation. Patient is seen postoperatively back in her room. Her pain is currently fairly well controlled. Repeat blood work reveals hemoglobin of 8.6. Sodium 135, potassium 3.6, BUN 6 and creatinine 0.54. Blood sugar this morning was 54. Calcium 6.3. Patient has been transfused 1 unit of packed RBCs. Heart rate is 63, blood pressure 123/61 and pulse ox 99% on 3 L. Patient will be resumed back on eliquis and Plavix tomorrow. 06/10: Patient is postop day #3. Rick and Fabricio will be in to redo stump clinic receptionist and rigid dressing today. Patient is currently on Denton 7.54 times daily as needed for pain. She seems to be comfortable at this time. She is stating that she is not sleeping and not eating very much. She denies having any nausea or vomiting. She has had loose bowel movements possibly due to antibiotics. Questran has been added. Patient is no longer on antibiotics. No abdominal pain. She is reaching 1250 ml on incentive spirometry. She's been afebrile, heart rate 82, blood pressure 154/86, pulse ox 94% on room air. Patient is out of bed for the first time with the help of physical therapy. She is now agreeable to inpatient rehab and consult placed for evaluation. Loxitane has been increased to twice daily 60 mg. We'll REVIEW OF SYSTEMS Constitutional: positive for fever, No chills, no night sweats. Reports weight loss. Reports weakness, Reports fatigue no lethargy. NO daytime sleepiness. HEENT: No headache. No dizziness. Reports difficulty swallowing. No nasal drainage or congestion. No epistaxis. No sore throat. Lungs: No shortness of breath, cough, no sputum production. No wheezing. Cardiovascular: No chest pain, no lower extremity edema. No palpitations. No paroxysmal nocturnal dyspnea. No orthopnea. No lightheadedness or dizziness. No syncopal episodes. Abdominal: Reports abdominal pain. Reports nausea, no vomiting. no diarrhea. No constipation. No bloody or tarry stools. Reports loss of appetite. Genitourinary: No dysuria, increased frequency, urgency. No urinary retention. Musculoskeletal: No myalgias. positive for muscle weakness, reports balance issues, reports gait dysfunction, reports frequent falls. No back pain. No neck pain. Integumentary: Left achilles wound, right groin wound, Right 2nd, 3rd and 5th toes and right big toe amputation Neurologic: No aphasia. No facial droop. No change in mentation. No head injury. No headache. No paralysis. No paresthesia. Psychiatric: Reports depression. Reports anxiety. No mood swings. Endocrine: abnormal blood sugars. positive for weight change. No excessive sweating or thirst. No cold intolerance. PHYSICAL EXAMINATION Gen: This is a 63-year-old female. She is resting in bed and appears to be in no acute distress. HEENT: Head is atraumatic, normocephalic. Pupils equal, round. Sclerae is a nicteric. Mucous members of the mouth are somewhat dry. NECK: Supple. No JVD. No lymphadenopathy. No thyromegaly. LUNGS: Clear to auscultation. No wheezes or rhonchi. No intercostal retractions. 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 ABDOMEN: Soft. Bowel sounds are present. No masses. no tenderness. Large hematoma to right pelvis soft, surrounding and dependent ecchymosis. EXTREMITIES: No pedal edema. Right kqqxj-ekp-drqp amputation. NEUROLOGICAL: Patient is awake, alert and oriented x3. Cranial nerves 2 through 12 are grossly intact. Muscle power 4/5 in the left upper extremity, 4/5 in the right upper extremity, 3/5 in the bilateral lower extremities. DTRs are depressed bilaterally. Neuropathic changes in both feet. ASSESSMENT AND PLAN 1. Right leg infected/failed graft with sepsis status post right ajjhs-pcf-yszx amputation. Patient is off IV antibiotics. Continue current pain management, incentive spirometry to reduce incidence of atelectasis and hospital-acquired pneumonia continue local wound care per vascular surgery. Continue Denton for pain control. 2. Recent right common femoral to tibial vein bypass with debridement of the right exposed Achilles tendon heel second third and fifth toes of the right foot, also drainage of the right inguinal hematoma post removal of the LITO drain with a split wound in the right groin, we will continue with current treatment as in [place] #1 consult vascular surgery. Continue local wound care per wound Center to groin. 3. Coronary artery disease with recent stent of the RCA due to recent in-stent restenosis. Patient has had previous multiple cardiac stents to the RCA and mid LAD, obtuse marginal branch. Continue patient on a Plavix 75 mg daily, Lopressor 25 mg twice daily, Crestor 20 mg daily. 4. Diabetes mellitus type 2 uncontrolled with hyperglycemia and now hypoglycemia as patient is not eating much. Continue NovoLog scale before meals and at bedtime. Lantus 28 units at bedtime. Discontinue Novolog 10 units AC meals TID 5. Hyperlipidemia. Continue Atorvastatin 40 mg po daily 6. Chronic DVT and PEs. Continue patient on eliquis 5 mg twice daily. 7. Chronic anemia with recent acute blood loss anemia secondary to hematoma in the right groin/pelvis. Continue patient on ferrous sulfate 325 mg twice daily. 8. Hypertension and hypertensive cardiovascular disease, Continue lisinopril 5 mg daily, Lopressor 25 mg twice daily. 9. Gastroesophageal reflux disease and GI prophylaxis. Continue Pantoprazole 40 mg daily. 10. Diabetic neuropathy. w will continue wit Gabapentin 400 mg po tid. 11. Generalized anxiety disorder, recurrent depression. Continue Cymbalta 60 mg daily, and Xanax 0.25 mg twice daily as needed. 12. Patient diagnosed with EPI at [facility], [facility]. 13. Generalized debility, weakness secondary to extensive and repeated hospitalizations and multiple medical conditions. Consult with inpatient rehab. Continue PT and OT. Full code. Impression and plan of care have been directed as dictated by the signing physician. Kerri Kevin nurse practitioner acting as scribe for signing physician. Objective - Vital Signs Vital signs: Vital Signs Temp 98.1 F 06/10/23 09:00 Pulse 82 06/10/23 10:00 Resp 16 06/10/23 10:00 BP 154/86 06/10/23 09:00 Pulse Ox 94 L 06/10/23 09:06 FiO2 Intake & Output 06/09/23 06/10/23 06/10/23 18:59 06:59 18:59 Intake Total 918 Output Total 1300 700 Balance 918 -1300 -700 Intake: Intake, IV Titration 800 Amount DAPTOmycin 450 mg In 100 Sodium Chloride 0.9% 50 ml @ 100 mls/hr IVPB Q24H [facility] Rx#:[id number] IV Fluid Continuation 700 600 ml @ 0 mls/hr IV .STK- MED ONE Rx#:[id number] Meropenem 1 gm In Sodium 100 Chloride 0.9% 100 ml @ 33 .3 mls/hr IVPB Q8HR [facility] Rx#:[id number] Oral 118 Output: Urine 1300 700 Other: Voiding Method Diaper Diaper Diaper External Catheter External Catheter External Catheter # Bowel Movements 1 - Labs CBC & Chem 7: 06/10/23 08:07 06/10/23 08:07 Labs: Abnormal Lab Results - Last 24 Hours (Table) 06/09/23 06/09/23 06/10/23 Range/Units 16:38 20:11 08:07 WBC 2.9 L (3.8-10.6) k/uL RBC 3.70 L (3.80-5.40) m/uL Hgb 9.9 L (11.4-16.0) gm/dL Hct 31.1 L (34.0-46.0) % RDW 17.8 H (11.5-15.5) % Sodium (137-145) mmol/L Potassium (3.5-5.1) mmol/L Chloride (98-107) mmol/L Carbon Dioxide (22-30) mmol/L BUN (7-17) mg/dL Creatinine (0.52-1.04) mg/dL Glucose (74-99) mg/dL POC Glucose (mg/dL) 143 H 175 H (70-110) mg/dL Calcium (8.4-10.2) mg/dL Total Protein (6.3-8.2) g/dL Albumin (3.5-5.0) g/dL 06/10/23 06/10/23 Range/Units 08:07 11:55 WBC (3.8-10.6) k/uL RBC (3.80-5.40) m/uL Hgb (11.4-16.0) gm/dL Hct (34.0-46.0) % RDW (11.5-15.5) % Sodium 136 L (137-145) mmol/L Potassium 3.1 L (3.5-5.1) mmol/L Chloride 97 L (98-107) mmol/L Carbon Dioxide 37 H (22-30) mmol/L BUN 3 L (7-17) mg/dL Creatinine 0.39 L (0.52-1.04) mg/dL Glucose 63 L (74-99) mg/dL POC Glucose (mg/dL) 119 H (70-110) mg/dL Calcium 6.5 L (8.4-10.2) mg/dL Total Protein 4.8 L (6.3-8.2) g/dL Albumin 1.9 L (3.5-5.0) g/dL
[2023-06-10 16:55] LABS: Glucose,Whole Blood 151 mg/dL (70-110)
[2023-06-10 20:08] LABS: Glucose,Whole Blood 82 mg/dL (70-110)
[2023-06-10] MEDS: MELATONIN 3 MG TABLET PO SCH (21:24)
[2023-06-10] MEDS: INSULIN DETEMIR (LEVEMIR) 100 UNIT/ML SYR SQ SCH (21:25)
[2023-06-11] MEDS: ALPRAZolam 0.25 MG TAB PO SCH ×4 (00:49→20:55)
[2023-06-11] MEDS: HYDROmorphone 0.5 MG/0.5 ML SYRINGE IVP PRN ×4 (01:54→20:55)
[2023-06-11] MEDS: HYDROcodone/APAP 7.5-325MG 1 EACH TAB PO PRN ×4 (03:24→23:46)
[2023-06-11] MEDS: LACTATED RINGERS 1,000 ML IV SCH (04:50)
[2023-06-11 06:06] LABS: Glucose,Whole Blood 45 mg/dL (70-110)
[2023-06-11] MEDS: INSULIN ASPART (NovoLOG) 100 UNIT/ML VIAL SQ SCH ×4 (06:27→20:53)
[2023-06-11 06:32] LABS: Glucose,Whole Blood 47 mg/dL (70-110)
[2023-06-11] MEDS: DEXTROSE 50% SYRINGE 50 ML IVP PRN ×2 (06:44→16:21)
[2023-06-11 07:06] LABS: Glucose,Whole Blood 116 mg/dL (70-110)
[2023-06-11] MEDS: PANTOPRAZOLE 40 MG TABLET PO SCH (08:43)
[2023-06-11] MEDS: lisinopriL 5 MG TAB PO SCH (08:43)
[2023-06-11] MEDS: APIXABAN 5 MG TAB PO SCH ×2 (08:43→20:54)
[2023-06-11] MEDS: METOPROLOL TARTRATE 25 MG TAB PO SCH ×2 (08:43→20:54)
[2023-06-11] MEDS: POTASSIUM CHLORIDE ER 10 MEQ TAB.ER.PRT PO SCH ×2 (08:43→20:54)
[2023-06-11] MEDS: FERROUS SULFATE 325 MG TAB PO SCH ×2 (08:43→20:54)
[2023-06-11] MEDS: GABAPENTIN 400 MG CAP PO SCH ×3 (08:43→20:55)
[2023-06-11 08:48] LABS: African American GFR (CKD) >90 (>60 ml/min/1.73 sqM); Anion Gap 8 mmol/L; Blood Urea Nitrogen 4 mg/dL (7-17); Carbon Dioxide 29 mmol/L (22-30); Chloride 99 mmol/L (98-107); Glucose 87 mg/dL (74-99); Non-African American GFR(CKD) >90 (>60 ml/min/1.73 sqM); Potassium 3.8 mmol/L (3.5-5.1); Sodium 136 mmol/L (137-145)
[2023-06-11] MEDS: CHOLESTYRAMINE (WITH SUGAR) 4 GM PACKET PO SCH ×2 (09:29→16:54)
[2023-06-11] MEDS: DOCUSATE 100 MG CAP PO SCH (09:29)
[2023-06-11] MEDS: CLOPIDOGREL 75 MG TAB PO SCH (09:29)
[2023-06-11] MEDS: DULoxetine HCL 60 MG CAPSULE.DR PO SCH ×2 (09:29→20:54)
[2023-06-11] MEDS ORDERED: POTASSIUM CHLORIDE ER 20 MEQ TAB.ER PO SCH (11:00)
--- NOTE | 2023-06-11 11:17 | P.PN ---
Subjective Progress Note Date: 06/11/23 Principal diagnosis: Right lower extremity infected wound Patient was seen and examined today as a follow-up. She states diarrhea is improved. Pain has been better controlled. She has stump air brake mechanic and rigid dressing in place. She's been afebrile. Objective - Vital Signs Vital signs: Vital Signs Temp 97.6 F 06/11/23 08:00 Pulse 70 06/11/23 08:00 Resp 18 06/11/23 08:00 BP 152/78 06/11/23 08:00 Pulse Ox 99 06/11/23 08:00 FiO2 Intake & Output 06/10/23 06/11/23 06/11/23 18:59 06:59 18:59 Intake Total 680 Output Total 1650 1600 Balance -970 -1600 Intake: Oral 680 Output: Urine 1650 1600 Other: Voiding Method Diaper Diaper Diaper External Catheter External Catheter External Catheter # Bowel Movements 1 - Exam General appearance: The patient is alert, oriented, appears in no acute distress. HET: Head is normocephalic and atraumatic. Pupils are equal and reactive. Neck: Supple. Abdomen: Soft, nontender, nondistended. Extremities: Right groin with dressing clean dry and intact. Right lower extremity with stump air brake mechanic and rigid dressing in place. Neurological: No focal deficits. - Labs CBC & Chem 7: 06/10/23 08:07 06/11/23 07:54 Labs: Abnormal Lab Results - Last 24 Hours (Table) 06/10/23 06/10/23 06/11/23 Range/Units 11:55 16:41 06:03 Sodium (137-145) mmol/L BUN (7-17) mg/dL Creatinine (0.52-1.04) mg/dL POC Glucose (mg/dL) 119 H 151 H 45 L (70-110) mg/dL Calcium (8.4-10.2) mg/dL 06/11/23 06/11/23 06/11/23 Range/Units 06:31 07:05 07:54 Sodium 136 L (137-145) mmol/L BUN 4 L (7-17) mg/dL Creatinine 0.40 L (0.52-1.04) mg/dL POC Glucose (mg/dL) 47 L 116 H (70-110) mg/dL Calcium 7.0 L (8.4-10.2) mg/dL Microbiology - Last 24 Hours (Table) 06/05/23 12:50 Blood Culture - Final Blood Assessment and Plan Assessment: 1. Right lower extremity infected wound status post right novki-rhs-gvri amputation 2. Right groin wound status post hematoma evacuation 3. Hypokalemia 4. 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 History of left external iliac artery occlusion 6. Coronary artery disease status post stenting mid RCA 04/04/2023 9. History of DVTs 10. Diabetes mellitus 11. History CVA Plan: 1. Resume anticoagulation and Plavix 2. Consistent carbohydrate diet, Glucerna added 3. Recommend PT/OT 4. Encourage activity as tolerated 5. Local wound care to right groin 6. Incentive spirometer at bedside, continue use every hour 7. Ashkum increased to 7.5-325 mg, consider increasing gabapentin or changing to Lyrica if needed 8. Stump air brake mechanic and rigid dressing to right AKA stump 9. No further surgical intervention indicated, patient is cleared from vascular surgery for discharge Thank you for this consultation, we wagner's sign off at this time. The impression and plan of care has been dictated as directed. Dr. Rutledge I performed a history and examination of this patient, discussed the same with the dictator. I agree with the dictator's note ,documented as a scribe. Any a dditional findings or plans will be noted.
[2023-06-11 11:26] LABS: Glucose,Whole Blood 95 mg/dL (70-110)
--- NOTE | 2023-06-11 14:08 | P.CONS ---
History of Present Illness - Reason for Consult Consult date: 06/11/23 rehab recommendations - Chief Complaint debility - History of Present Illness Courtney Ybarra is a 63 y/o right handed, female, , who lives in a mobile home, with 3 MASOUD with her ex-. Prior to admission, she was ambulating with a 4 WW. She was independent for basic/advanced ADLs. Current driving: no . Retired: yes Support system: ex and children She was admitted to [facility] on 05/28. She presented to the ED with concerns for infection. Patient has had multiple hospitalizations over the last 2 months. Of note patient was recently hospitalized and underwent a cardiac cath with stent placement. Postoperatively, patient developed a significant hematoma to the right groin into the right pelvic area requiring ICU management, transfusion of PRBCs and vasopressors for a brief period. Patient was stabilized and discharged home with home care but she returned with worsening wounds, hypotension and leukocytosis of 26. She was seen by multiple consultants including wound care, ID and vascular surgery. Patient underwent right common femoral to tibial vein bypass with debridement of a right exposed achilles tendon/heel, second third and fourth toes of the right foot and drainage of right inguinal hematoma with wound VAC placement and subsequent he matoma evacuation on 04/30. Patient was stabilized and discharged to [facility] for subacute rehab. She was admitted to [facility] again on 05/10 and diagnosed with acute pancreatitis, was treated and discharged home. She underwent a skin graft to the right achilles/lower leg area 05/20, done by Umair Tejeda in addition to wound VAC removal. She was discharged home in stable condition with multiple follow-ups. She had a home care nurse coming for dressing changes and was found to have a fever with black eschar on the back of her leg with purulent drainage. It was also noted that her right groin wound was split where the LITO drain was. Subsequently, she was transported to [facility] and a dmitted with septic shock with consultations to vascular surgery and ID, and she was started on IV Cefepime after obtaining blood cultures and wound cultures. 05/30 patient underwent a sharp excisional debridement of the right lower extremity wound, but due to the extent of the wound, poor tissue quality and lack of adequate flap potential, it was recommended the patient undergo [id number] amputation. 06/07 she underwent a right [id number] amputation with Dr. Mendoza. Rick and Fabricio has been seeing the patient post- operatively. Recently patient has had issues with diarrhea, testing negative for C. difficile. She has completed her antibiotics. PM&R consulted for rehab recommendations. Therapy evaluations reviewed; patient needing total assist for bathing, total assist UB dressing, total assist LB dressing, min assist for grooming, total assist for toileting ability, supervis ion for eating, total assist bed mobility, total assist scooting 06/11/2023: Patient was found in bed. with HOB elevated and son Zain at bedside. Son has concerns for patients lethargy. He reports that she has been lethargic since she has been getting xanax. patient able to wake momentarily and provide short answers to questions then falls asleep again. Patient denies CP, SOB and abdominal pain. She is eating "some". Reports that her pain is tolerable at this time. Patients son would really like her to come to IPR at [facility] for rehabilitation. Advised patient and son that we will continue to follow the patient and her progress with therapy and make further determinations based on these findings. Advised patient that participation in therapy is important in her recovery, and encouraged her to participate. Review of Systems Negative unless noted in HPI Past Medical History Past Medical History: Coronary Artery Disease (CAD), Diabetes Mellitus, Deep Vein Thrombosis (DVT), Vascular Disorder Additional Past Medical History / Comment(s): SKIN CA. 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, NEUROPATHY LEGS & FEET, USING WALKER, .Mutiple DVT,mesentaric thrombosis x2 & PE, PAD, chronic pain syndrome, ddd lumbar region w/radiculopathy, HISTORY OF FALL 01/07/20 , tore rt rotator cuff, pancreatitis, fatty liver, Last Myocardial Infarction Date:: 2010 History of Any Multi-Drug Resistant Organisms: None Reported Past Surgical History: Section, Cholecystectomy, Heart Catheterization, Heart Catheterization With Stent, Orthopedic Surgery, Tonsillectomy, Tubal Ligation Additional Past Surgical History / Comment(s): 11 Stents in left leg, fistula left thigh, full mouth teeth extraction, TRAPEASE VENA CAVA FILTER, carpel tunnel, heart stents x4 rca and lad, tumor removal from uterus. Genital warts removed, INGRID. Skin cancer removed from neck, rt great toe amputated, colonoscopy, rt rotator, left shoulder replacement, cervial fusion, rt calf debridement, rt calf skin graft (May 2023) Past Anesthesia/Blood Transfusion Reactions: No Reported Reaction Date of Last Stent Placement:: Mar 2023 Past Psychological History: Anxiety, Depression Additional Psychological History / Comment(s): Depression r/t health issues. Smoking Status: Current every day smoker Past Alcohol Use History: None Reported Additional Past Alcohol Use History / Comment(s): STARTED SMOKING IN 1988 SMOKES 1/2 PPD Past Drug Use History: None Reported - Past Family History Mother Family Medical History: Cancer, Congestive Heart Failure (CHF), Diabetes Mellitus, Myocardial Infarction ([place]) Additional Family Medical History / Comment(s): UTERINE CANCER Father Family Medical History: Coronary Artery Disease (CAD), Myocardial Infarction ([place]) Additional Family Medical History / Comment(s): Father at age 70. Sister(s) Family Medical History: Myocardial Infarction ([place]) Additional Family Medical History / Comment(s): Patient has one sister with myocardial infarction at age 55. Son(s) Family Medical History: Deep Vein Thrombosis (DVT), Pulmonary Embolus Additional Family Medical History / Comment(s): Patient has 2 sons and one has history of DVT and pulmonary embolism. Medications and Allergies Home Medications Medication Instructions Recorded Confirmed Type Docusate [Colace] 100 mg PO DAILY 11/14/21 05/28/23 History DULoxetine HCL [Cymbalta] 60 mg PO DAILY 09/06/22 05/28/23 History Rosuvastatin [Crestor] 20 mg PO DAILY 01/08/23 05/28/23 History Ergocalciferol (Vitamin D2) 1,250 mcg PO GUERRERO 04/01/23 05/28/23 History [Drisdol (50,000 Iu)] Melatonin 3 mg PO HS 04/01/23 05/28/23 History Nitroglycerin Sl Tabs [Nitrostat] 0.4 mg SL Q5M PRN 04/01/23 05/28/23 History Omeprazole [PriLOSEC] 20 mg PO DAILY 04/01/23 05/28/23 History Metoprolol Tartrate [Lopressor] 25 mg PO BID #60 tab 04/15/23 05/28/23 Rx lisinopriL [Zestril] 5 mg PO DAILY #30 tab 04/15/23 05/28/23 Rx Potassium Chloride ER [K-Dur 10] 10 meq PO BID 04/22/23 05/28/23 History Gabapentin [Neurontin] 400 mg PO TID #9 cap 05/02/23 05/28/23 Rx HYDROcodone/APAP 7.5-325MG [[place] 1 tab PO QID PRN #12 tab 05/02/23 05/28/23 Rx 7.5-325] INSULIN LISPRO (HumaLOG) [humaLOG] 10 units SQ AC-TID 05/10/23 05/28/23 History INSULIN LISPRO (HumaLOG) [humaLOG] See Protocol SQ AC-TID 05/10/23 05/28/23 History Insulin Glargine,Hum.rec.anlog 34 units SQ HS 05/10/23 05/28/23 History [Lantus Solostar Pen] Collagenase [Santyl Ointment] 1 applic TOPICAL DAILY each 05/18/23 05/28/23 Rx Apixaban [Eliquis] 5 mg PO BID 05/20/23 05/28/23 History Clopidogrel [Plavix] 75 mg PO DAILY 05/20/23 05/28/23 History Dapagliflozin Propanediol [Farxiga] 10 mg PO DAILY 05/20/23 05/28/23 History traMADol HCL 50 mg PO DAILY 05/20/23 05/28/23 History ALPRAZolam [Xanax] 0.25 mg PO TID #9 tab 06/10/23 Rx Ferrous Sulfate [Feosol] 325 mg PO BID #60 tab 06/10/23 Rx Allergies Allergy/AdvReac Type Severity Reaction Status Date / Time vancomycin Allergy Rash/Hives/and Verified 06/07/23 09:44 vomiting diarrhea/Swelling Physical Exam Vitals: Vital Signs Temp Pulse Pulse Resp BP Pulse Ox 06/11/23 08:00 97.6 F 70 18 152/78 99 06/11/23 04:00 97.8 F 67 18 162/81 98 06/11/23 02:00 66 16 06/11/23 00:00 98 F 66 16 152/82 97 06/10/23 20:00 97.4 F L 72 76 16 152/86 95 06/10/23 17:05 97.7 F 72 18 156/73 95 06/10/23 13:40 98 F 76 16 145/77 97 Intake and Output 11/06/23 11/07/23 11/07/23 22:59 06:59 14:59 Intake Total 320 Output Total 950 1600 Balance -630 -1600 Intake: Oral 320 Output: Urine 950 1600 Other: Voiding Method Diaper Diaper Diaper External Catheter External Catheter External Catheter EXAM; difficult due to poor effort due to lethargy General: WDWN, female, fatigued/lethargic, resting in bed, HOB elevated, son at bedside, NAD Head: Normocephalic, atraumatic. Eyes: Symmetric Ears: Symmetric. Hearing within normal limits. Mouth: Clear. Neck: Supple. Cardiac: quality assurance monitor chassis on. left calf supple, non tender, no edema Lungs: Breathing comfortably on RA. Chest symmetric. Abdomen: Soft, nontender. Extremities: Arthritic changes consistent with age. right AKA with wrap/chief reservoir engineering in place Neurological: Alert and oriented x 2 (not oriented to time). Wakes momentarily to provide short answers to questions Speech is clear, slow without paraphasic errors Cranial nerves: CN II-XII: intact. Sensation: Intact and symmetrical limbs. right AKA Musculoskeletal: ROM WFL EXCEPT: right AKA, lethargic/fatigued with poor effort with exam MMT UE Sh Abd EE EF FABD WE HG Right 3+ 3+ 3+ 4 4 4 Left 3+ 3+ 3+ 4 4 4 MMT LE HF KE DF EHL Right 2 - - - Left 3 3 4+ 4+ Reflexes Biceps Triceps Brachioradialis Patella Achilles Babinski Hoffmans Right 2 2 2 - Left 2 2 2 2 Skin: Skin intact where visible to head, neck, and bilateral upper and lower extremities EXCEPT: PIV, right AKA with wrap/chief reservoir engineering in place, right groin dressing CDI Psych: Calm, cooperative Results CBC & Chem 7: 06/10/23 08:07 06/11/23 07:54 Labs: Abnormal Lab Results - Last 24 Hours (Table) 06/10/23 06/10/23 06/11/23 Range/Units 11:55 16:41 06:03 Sodium (137-145) mmol/L BUN (7-17) mg/dL Creatinine (0.52-1.04) mg/dL POC Glucose (mg/dL) 119 H 151 H 45 L (70-110) mg/dL Calcium (8.4-10.2) mg/dL 06/11/23 06/11/23 06/11/23 Range/Units 06:31 07:05 07:54 Sodium 136 L (137-145) mmol/L BUN 4 L (7-17) mg/dL Creatinine 0.40 L (0.52-1.04) mg/dL POC Glucose (mg/dL) 47 L 116 H (70-110) mg/dL Calcium 7.0 L (8.4-10.2) mg/dL Microbiology - Last 24 Hours (Table) 06/05/23 12:50 Blood Culture - Final Blood Assessment and Plan Assessment: #Gait instability/impaired ADLs secondary to sepsis/infection of right leg wound with failed skin graft status post right yikef-lyl-heco amputation 06/07 -Wound care and vascular surgery following -Rick and Fabricio following -cultures showed Pseudomonas enterococcus and Proteus s/p antibiotics -right stump wrapped with chief reservoir engineering in place #Lethargic -06/11: spoke with patients son who states she has been like this since starting xanax. Discussed concern with case management that lethargy may prevent patient participation in therapy. Case management discussed with IM [employer] [facility] #s/p right common femoral to tibial vein bypass with debridement of the right exposed achilles tendon/heel, second, third and fifth toes of the right foot -s/p right AKA #Right inguinal hematoma s/p VAC placement, s/p hematoma evacuation -Wound care following -dressing CDI #CAD s/p stent placement -Plavix #History of multiple DVT's and PEs -Eliquis #History of CVA with left-sided weakness and 2018 #Diabetes mellitus with neuropathy #History of pancreatitis #History amputation of right great toe secondary to osteomyelitis #Anxiety/Depression -Cymbalta, Xanax -06/11: xanax recently changed to TID scheduled from BID prn, discussed lethargy concern with case management who contacted [employer] [facility] # Bowel/ Bladder: Nursing to monitor and report concerns if any. -06/11: purewick in place, denies issues with bowels # Diet -Cardiac diet/consistent carb, Glucerna 3 times daily with meals, Magic cups twice daily with meals # Skin/wound: Skin/Wound care to follow as needed # Pain Management -Tylenol 650 mg every 6 hours as needed, gabapentin 400 mg 3 times daily, [place] 7.5/325 mg every 6 hours as needed, Dilaudid 0.5 mg IV push every 3 hours as needed # DVT Prophylaxis: -eliquis # Comorbidities: GERD, chronic anemia, hyperlipidemia, PAD, chronic pain syndro me, hypertension, COPD-current smoker # Your medical dx and mgt Goals: Modified Independent mobility and ADLS both basic and advanced; increased functional mobility/strength; increased balance, safety, endurance. Improvement in medical issues through your care. Barriers: Pain, endurance, anxiety, right AKA, lethargy Discharge recommendation: Likely IPR candidate. Will continue to follow the patient and monitor progress with therapy. Patient is lethargic at this time requiring total assistance for most activities. Due to lethargy, examination difficult with limited effort. Advised reducing xanax as able to reduce lethargy and maximize participation with therapy. Patient seen and examined in coordination with Dr. Tsang via audio/video telemedicine Author: Nasrin Edwards NP
--- NOTE | 2023-06-11 14:28 | P.PN ---
Subjective Progress Note Date: 06/11/23 Principal diagnosis: Right leg wound infection Patient is a 63-year-old female with a past medical history significant for diabetes mellitus peripheral arterial disease coronary disease patient did have PAD and bypass graft with CryoVein right common thromboendarterectomy and right groin hematoma evacuation as well as right Achilles wound debridement and skin graft application patient has been sent to the ER by the home care nurse concerning for infection of the right lower extremity, patient is status post Sharp excisional debridement right lower extremity wound measuring 23 x 9 x 2.5 cm to muscle with undermining at the 12 o'clock position of 8.7 cm completed on 05/30/2023, the patient is status post right [id number] amputation completed on 06/07/2023 On today's evaluation that is 06/11/2023, the patient continues to be afebrile, the patient is breathing comfortably on room air and no need for supplemental oxygen, the patient denies any chest pain or cough , patient denies nausea/vomiting or diarrhea , no abdominal pain, patient complaining of gene ralized weakness and myalgias however pain to the right AK stump is controlled Patient white count is 2.9 as of 06/10/2023, creatinine is 0.40, stool for C. diff is negative, cultures are currently growing Pseudomonas enterococcus and Proteus Objective - Vital Signs Vital signs: Vital Signs Temp 97.9 F 06/11/23 11:50 Pulse 75 06/11/23 11:50 Resp 18 06/11/23 11:50 BP 154/95 06/11/23 11:50 Pulse Ox 98 06/11/23 11:50 FiO2 Intake & Output 06/10/23 06/11/23 06/11/23 18:59 06:59 18:59 Intake Total 680 Output Total 1650 1600 Balance -970 -1600 Intake: Oral 680 Output: Urine 1650 1600 Other: Voiding Method Diaper Diaper Diaper External Catheter External Catheter External Catheter # Bowel Movements 1 - Exam GENERAL DESCRIPTION: Middle-aged female lying in bed in no distress RESPIRATORY SYSTEM: Unlabored breathing , clear to auscultation anteriorly HEART: S1 S2 regular rate and rhythm , ABDOMEN: Soft , no tenderness EXTREMITIES: Right AKA site is currently dressed - Labs CBC & Chem 7: 06/10/23 08:07 06/11/23 07:54 Labs: Abnormal Lab Results - Last 24 Hours (Table) 06/10/23 06/10/23 06/11/23 Range/Units 11:55 16:41 06:03 Sodium (137-145) mmol/L BUN (7-17) mg/dL Creatinine (0.52-1.04) mg/dL POC Glucose (mg/dL) 119 H 151 H 45 L (70-110) mg/dL Calcium (8.4-10.2) mg/dL 06/11/23 06/11/23 06/11/23 Range/Units 06:31 07:05 07:54 Sodium 136 L (137-145) mmol/L BUN 4 L (7-17) mg/dL Creatinine 0.40 L (0.52-1.04) mg/dL POC Glucose (mg/dL) 47 L 116 H (70-110) mg/dL Calcium 7.0 L (8.4-10.2) mg/dL Microbiology - Last 24 Hours (Table) 06/05/23 12:50 Blood Culture - Final Blood Assessment and Plan (1) Cellulitis of right leg Current Visit: Yes Status: Acute Code(s): L03.115 - CELLULITIS OF RIGHT LOWER LIMB SNOMED Code(s): 62138537336669880 (2) Leg wound, right Current Visit: Yes Status: Acute Code(s): S81.801A - UNSPECIFIED OPEN WOUND, RIGHT LOWER LEG, INITIAL ENCOUNTER SNOMED Code(s): 573538489 Plan: 1patient presented to hospital with sepsis in this patient with a fever elevated white count source likely her right lower extremity infected wound and second cellulitis likely from gram-positive skin jesus however the patient recently has grown Pseudomonas from the area could be related to the same pathogen. 2patient did have a vancomycin allergy that will limit the number of antibiotics safe to use. 3patient is status post surgical debridement and deep culture, with initial culture growing Pseudomonas enterococcus and Proteus 4-patient is s/p right sdmag-[id number]-albe amputation per vascular surgery completed on 06/07/2023 5-patient has developed significant diarrhea possible antibiotic associated, stool for C. diff is negative, patient did have improvement in her diarrhea, to continue with the Questran for symptomatic relief encouraged to increase her yogurt and probiotics intake ,Dictation was produced using Blueleafation software. please excuse any grammatical, word or spelling errors. Time with Patient: Less than 30
[2023-06-11] MEDS ORDERED: ALPRAZolam 0.25 MG TAB PO PRN (15:40)
[2023-06-11] MEDS ORDERED: lisinopriL 5 MG TAB PO STA (15:53)
--- NOTE | 2023-06-11 15:54 | P.PN ---
Subjective Progress Note Date: 06/11/23 HISTORY OF PRESENT ILLNESS This is a 63-year-old female patient of mine with history of CAD with multiple cardiac stents in mid RCA, mid LAD, obtuse marginal branch and followed by Dr. Bill closely, peripheral artery disease with previous stenting done as well has amputation of the right great toe secondary to osteomyelitis, CVA with no residual deficits, hypertension, COPD, diabetes mellitus type 2, previous multiple DVT and PE requiring chronic anticoagulation on eliquis, history of GI bleed secondary to antral gastritis, esophagitis, vitamin D deficiency, autono margot hypotension on midodrine, history of left humerus fracture. resume with patient April 02 through April 15 at which time she presented to the hospital due to right second and fifth toe ischemic change. A CT angiogram showed evidence of occlusion of the right superficial femoral artery and 2 occluded segments 1 in the mid thigh about 3 cm and another into the right popliteal artery at 13 cm length, occlusion of the right iliac artery into the common femoral artery. Patient was seen in consultation by vascular surgery. Arterial ultrasound showed lower extremity abnormal on the right with HERMINIA suggests severe atherosclerotic disease. Critical stenosis not excluded. Plan for open bypass surgery with vascular surgery was made but a cardiology consult was requested. Patient was seen by Dr. Bill and had chest pain complaint and Due to critical in-stent restenosis and subsequently underwent cardiac catheterization which revealed critical in-stent restenosis of the RCA and Dr. Bill present performed stenting of the RCA. There was also intermediate disease in the first obtuse marginal branch of the left circumflex, intermediate disease involving the LAD and mildly elevated left sided filling pressures. Access was obtained from the right groin. Unfortunately following removal of the sheath, patient developed a significant hematoma to the right groin into the right pelvic area measuring up to 11.9 cm requiring ICU management, transfusion of packed RBCs and vasopressors for brief period along with IV fluid resuscitation. Patient was stabilized and discharged to home with home care but she returned with worsening wounds, hypotension with blood pressure of 84/57, leukocytosis of 26. She was seen by multiple consultants including wound care, infectious disease, vascular surgery. Patient underwent right common femoral to tibial vein bypass with debridement of a right exposed Achilles tendon heel, second third and fourth toes of the right foot and drainage of right inguinal hematoma with wound VAC with subsequent hematoma evacuation on 04/30. Patient was stabili zed and discharged to [facility] for subacute rehab. She returned to the emergency department about few weeks back and she was diagnosed with acute pancreatitis and she was taken off of her gaand she was discharged home because she refused to go back to [facility] and she recently underwent a skin grat to the right achilles lower leg area that was done by Umair Tejeda was Saturday before yesterday and carin was discharged home in a stable condition with a follow up last Saturday and then last and had the home care nurse coming for dressing changes and she was found to have black eschar on the back of her leg with purulent material coming out of her leg and right gron with a split wound where the LITO was and she appeared to have sepsis , she was started on IV Cefepime after obtaining blood cultures and wound cultures and she was admitted to the Hospital with vacular surgery consult along with ID consult 05/29: Patient has been seen by vascular surgery with plan for debridement of the Achilles area with possible amputation tomorrow. Eliquis has been discontinued. Patient has been maintained on Plavix. Blood pressure 149/85, heart rate is in the 70s, afebrile, pulse ox 94% on room air. WBC 11.6, hemoglobin 10.6, platelet count 269. Sodium 138, potassium 3.2 and will be replaced. Creatinine 0.6 BUN 6. Capillary blood glucose running between 85 and 129. Alkaline phosphatase 131. Gram stain from the wound right leg reveals moderate polymorphonuclear leukocytes, many gram-positive cocci and many gram- negative bacilli. Patient has been continued on cefepime 2 g IV piggyback every 12 hours. Patient is followed by infectious disease as well. Consult is in place for wound care center. 05/30: Patient is scheduled for debridement of the right lower extremity wound this afternoon with Dr. Mendoza. Deep cultures are to be obtained. Patient is continued on cefepime and daptomycin per Dr. Sheppard. Fevers are improving. Heart rate is in the 70s and 80s, blood pressure 128/57, pulse ox 94% on room air. WBC 10.3, hemoglobin 9.8, platelet count 234. Sodium 137, potassium 3.2, CO2 36, BUN 7 creatinine 0.67. CBG [id number]. Wound cultures are showing gram- negative bacilli. Blood culture no growth at 48 hours. Patient has been seen by the wound care team with recommendations for Santyl, saline moistened gauze dry gauze to the right groin wound. 05/31: Yesterday, patient underwent a sharp excisional debridement of the right lower extremity wound but due to the extent of the wound, poor tissue quality and lack of adequate flap potential, it has been recommended the patient undergo okecw-zgw-fmcy amputation. Cardiology has cleared the patient for surgical intervention knowing that she is at high risk but no absolute contraindications. Recommendations are to continue patient on aspirin while plavix on hold. We will plan on Lovenox once eliquis is discontinued prior to surgery. Patient continues to complain of pain to the right ankle foot area. She denies having any chest pain. No shortness of breath. She complains of feeling tired. Repeat blood work reveals WBC 9.4, hemoglobin 8.6, platelet count 236. Sodium 1 36, potassium 3.5, creatinine 0.64. Blood blood glucose this morning prior to lunch was 49. Otherwise blood sugars are running on the lower side in general 65-115. Scheduled NovoLog 10 units with meals will be discontinued and long- acting insulin was decreased. 06/03: Patient continues to be followed by vascular surgery with plan for right xvobn-qsk-ftkq amputation on Saturday. Patient has been seen by cardiology and they've signed off. Plan is to continue aspirin 81 mg daily until patient can be resumed back on Plavix. Patient is also on eliquis transition to Lovenox until eliquis can be resumed following surgery. Antibiotics have been changed to meropenem per infectious disease. The blood glucose running between 159 and 175. 06/04: Patient states that pain to the right foot is a #6 out of 7. Plan is continued for amputation on Saturday with Dr. Mendoza. Capillary blood glucose ru nning between 168 and 227. Patient has been afebrile, heart rate 66, blood pressure 133/70. Patient has no new concerns. She continues to have minimal appetite. Family members are at bedside and all questions have been answered. 06/05: Patient remains afebrile, heart rate in the 70s to 90s, blood pressure 163/75, pulse ox 99% on room air. Patient continues to not have very much appetite. She also continues to have pain in the right foot ankle. Patient is having more anxiety related to upcoming surgery for which Xanax will be added. WBC 5, hemoglobin 10.5, platelet count 279. Sodium 133, potassium 3.9, chloride 96, CO2 27, BUN 8 and creatinine 0.62. Blood glucose running 126-155. 06/06: No new concerns from the patient. She is quite anxious in anticipation of surgery for tomorrow. She is scheduled for right alywf-iqi-djsa amputation tomorrow with Dr. Mendoza. Capillary blood glucose running between 101 and 168. Patient remains afebrile, heart rate in the 70s, blood pressure 162/81, pulse ox 96% on room air. 06/07: Patient is status post right iolfi-cfb-ylvn amputation. Patient is seen postoperatively back in her room. Her pain is currently fairly well controlled. Repeat blood work reveals hemoglobin of 8.6. Sodium 135, potassium 3.6, BUN 6 and creatinine 0.54. Blood sugar this morning was 54. Calcium 6.3. Patient has been transfused 1 unit of packed RBCs. Heart rate is 63, blood pressure 123/61 and pulse ox 99% on 3 L. Patient will be resumed back on eliquis and Plavix tomorrow. 06/10: Patient is postop day #3. Rick and Fabricio will be in to redo stump terminologist and rigid dressing today. Patient is currently on [place] 7.54 times daily as needed for pain. She seems to be comfortable at this time. She is stating that she is not sleeping and not eating very much. She denies having any nausea or vomiting. She has had loose bowel movements possibly due to antibiotics. Questran has been added. Patient is no longer on antibiotics. No abdominal pain. She is reaching 1250 ml on incentive spirometry. She's been afebrile, heart rate 82, blood pressure 154/86, pulse ox 94% on room air. Patient is out of bed for the first time with the help of physical therapy. She is now agreeable to inpatient rehab and consult placed for evaluation. Loxitane has been increased to twice daily 60 mg. We'll 06/11: Patient is complaining of severe pain this morning. Diarrhea has resolved and C. difficile toxin came back negative. She is off IV antibiotics. Wound cultures were positive for Pseudomonas and enterococcus and Proteus. Yesterday, we added consult for inpatient rehab which we expect they will be evaluating today. Blood pressure 154/95, heart rate in the 70s. She's been afebrile, pulse ox 90% on room air. REVIEW OF SYSTEMS Constitutional: positive for fever, No chills, no night sweats. Reports weight loss. Reports weakness, Reports fatigue no lethargy. NO daytime sleepiness. HEENT: No headache. No dizziness. Reports difficulty swallowing. No nasal drainage or congestion. No epistaxis. No sore throat. Lungs: No shortness of breath, cough, no sputum production. No wheezing. Cardiovascular: No chest pain, no lower extremity edema. No palpitations. No paroxysmal nocturnal dyspnea. No orthopnea. No lightheadedness or dizziness. No syncopal episodes. Abdominal: Reports abdominal pain. Reports nausea, no vomiting. no diarrhea. No constipation. No bloody or tarry stools. Reports loss of appetite. Genitourinary: No dysuria, increased frequency, urgency. No urinary retention. Musculoskeletal: No myalgias. positive for muscle weakness, reports balance issues, reports gait dysfunction, reports frequent falls. No back pain. No neck pain. Integumentary: Left achilles wound, right groin wound, Right 2nd, 3rd and 5th toes and right big toe amputation Neurologic: No aphasia. No facial droop. No change in mentation. No head injury. No headache. No paralysis. No paresthesia. Psychiatric: Reports depression. Reports anxiety. No mood swings. Endocrine: abnormal blood sugars. positive for weight change. No excessive sweating or thirst. No cold intolerance. PHYSICAL EXAMINATION Gen: This is a 63-year-old female. She is resting in bed and appears to be in no acute distress. HEENT: Head is atraumatic, normocephalic. Pupils equal, round. Sclerae is anicteric. Mucous members of the mouth are somewhat dry. NECK: Supple. No JVD. No lymphadenopathy. No thyromegaly. LUNGS: Clear to auscultation. No wheezes or rhonchi. No intercostal retractions. 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 ABDOMEN: Soft. Bowel sounds are present. No masses. no tenderness. Large hematoma to right pelvis soft, surrounding and dependent ecchymosis. EXTREMITIES: No pedal edema. Right pskvh-kzy-kyjp amputation. NEUROLOGICAL: Patient is awake, alert and oriented x3. Cranial nerves 2 through 12 are grossly intact. Muscle power 4/5 in the left upper extremity, 4/5 in the right upper extremity, 3/5 in the bilateral lower extremities. DTRs are depressed bilaterally. Neuropathic changes in both feet. ASSESSMENT AND PLAN 1. Right leg infected/failed graft with sepsis status post right qibxa-ach-paza amputation. Patient is off IV antibiotics. Continue current pain management, incentive spirometry to reduce incidence of atelectasis and hospital-acquired pneumonia continue local wound care per vascular surgery. Continue [place] for pain control. 2. Recent right common femoral to tibial vein bypass with debridement of the right exposed Achilles tendon heel second third and fifth toes of the right foot, also drainage of the right inguinal hematoma post removal of the LITO drain with a split wound in the right groin, we will continue with current treatment as in [place] #1 consult vascular surgery. Continue local wound care per wound Center to groin. 3. Coronary artery disease with recent stent of the RCA due to recent in-stent restenosis. Patient has had previous multiple cardiac stents to the RCA and mid LAD, obtuse marginal branch. Continue patient on a Plavix 75 mg daily, Lopressor 25 mg twice daily, Crestor 20 mg daily. 4. Diabetes mellitus type 2 uncontrolled with hyperglycemia and now hypoglycemia as patient is not eating much. Continue NovoLog scale before meals and at bedtime. Lantus 28 units at bedtime. Discontinue Novolog 10 units AC meals TID 5. Hyperlipidemia. Continue Atorvastatin 40 mg po daily 6. Chronic DVT and PEs. Continue patient on eliquis 5 mg twice daily. 7. Chronic anemia with recent acute blood loss anemia secondary to hematoma in the right groin/pelvis. Continue patient on ferrous sulfate 325 mg twice daily. 8. Hypertension and hypertensive cardiovascular disease, Continue lisinopril increased to 10 mg daily, Lopressor 25 mg twice daily. 9. Gastroesophageal reflux disease and GI prophylaxis. Continue Pantoprazole 40 mg daily. 10. Diabetic neuropathy. w will continue wit Gabapentin 400 mg po tid. 11. Generalized anxiety disorder, recurrent depression. Continue Cymbalta 60 mg daily, and Xanax 0.25 mg twice daily as needed. 12. Patient diagnosed with EPI at [facility]. 13. Generalized debility, weakness secondary to extensive and repeated hospitalizations and multiple medical conditions. Consult with inpatient rehab. Continue PT and OT. Full code. Impression and plan of care have been directed as dictated by the signing physician. Kerri Kevin nurse practitioner acting as scribe for signing physician. Objective - Vital Signs Vital signs: Vital Signs Temp 97.8 F 06/11/23 04:00 Pulse 67 06/11/23 04:00 Resp 18 06/11/23 04:00 BP 162/81 06/11/23 04:00 Pulse Ox 98 06/11/23 04:00 FiO2 Intake & Output 06/10/23 06/11/23 06/11/23 18:59 06:59 18:59 Intake Total 680 Output Total 1650 1600 Balance -970 -1600 Intake: Oral 680 Output: Urine 1650 1600 Other: Voiding Method Diaper Diaper External Catheter External Catheter # Bowel Movements 1 - Labs CBC & Chem 7: 06/10/23 08:07 06/11/23 07:54 Labs: Abnormal Lab Results - Last 24 Hours (Table) 06/10/23 06/10/23 06/10/23 Range/Units 08:07 08:07 11:55 WBC 2.9 L (3.8-10.6) k/uL RBC 3.70 L (3.80-5.40) m/uL Hgb 9.9 L (11.4-16.0) gm/dL Hct 31.1 L (34.0-46.0) % RDW 17.8 H (11.5-15.5) % Sodium 136 L (137-145) mmol/L Potassium 3.1 L (3.5-5.1) mmol/L Chloride 97 L (98-107) mmol/L Carbon Dioxide 37 H (22-30) mmol/L BUN 3 L (7-17) mg/dL Creatinine 0.39 L (0.52-1.04) mg/dL Glucose 63 L (74-99) mg/dL POC Glucose (mg/dL) 119 H (70-110) mg/dL Calcium 6.5 L (8.4-10.2) mg/dL Total Protein 4.8 L (6.3-8.2) g/dL Albumin 1.9 L (3.5-5.0) g/dL 11/01/2506/11/23 06/11/23 Range/Units 16:41 06:03 06:31 WBC (3.8-10.6) k/uL RBC (3.80-5.40) m/uL Hgb (11.4-16.0) gm/dL Hct (34.0-46.0) % RDW (11.5-15.5) % Sodium (137-145) mmol/L Potassium (3.5-5.1) mmol/L Chloride (98-107) mmol/L Carbon Dioxide (22-30) mmol/L BUN (7-17) mg/dL Creatinine (0.52-1.04) mg/dL Glucose (74-99) mg/dL POC Glucose (mg/dL) 151 H 45 L 47 L (70-110) mg/dL Calcium (8.4-10.2) mg/dL Total Protein (6.3-8.2) g/dL Albumin (3.5-5.0) g/dL 06/11/23 Range/Units 07:05 WBC (3.8-10.6) k/uL RBC (3.80-5.40) m/uL Hgb (11.4-16.0) gm/dL Hct (34.0-46.0) % RDW (11.5-15.5) % Sodium (137-145) mmol/L Potassium (3.5-5.1) mmol/L Chloride (98-107) mmol/L Carbon Dioxide (22-30) mmol/L BUN (7-17) mg/dL Creatinine (0.52-1.04) mg/dL Glucose (74-99) mg/dL POC Glucose (mg/dL) 116 H (70-110) mg/dL Calcium (8.4-10.2) mg/dL Total Protein (6.3-8.2) g/dL Albumin (3.5-5.0) g/dL Microbiology - Last 24 Hours (Table) 06/05/23 12:50 Blood Culture - Final Blood
[2023-06-11 16:20] LABS: Glucose,Whole Blood 44 mg/dL (70-110)
[2023-06-11 16:43] LABS: Glucose,Whole Blood 104 mg/dL (70-110)
[2023-06-11 17:21] LABS: Glucose,Whole Blood 89 mg/dL (70-110)
[2023-06-11] MEDS: INSULIN DETEMIR (LEVEMIR) 100 UNIT/ML SYR SQ SCH ×2 (20:42→20:56)
[2023-06-11 20:53] LABS: Glucose,Whole Blood 136 mg/dL (70-110)
[2023-06-11] MEDS: MELATONIN 3 MG TABLET PO SCH (20:54)
[2023-06-12] MEDS: HYDROmorphone 0.5 MG/0.5 ML SYRINGE IVP PRN ×2 (01:59→06:21)
[2023-06-12] MEDS: LACTATED RINGERS 1,000 ML IV SCH ×2 (06:10→23:51)
[2023-06-12 06:14] LABS: Glucose,Whole Blood 59 mg/dL (70-110)
[2023-06-12] MEDS: INSULIN ASPART (NovoLOG) 100 UNIT/ML VIAL SQ SCH ×4 (06:17→20:19)
[2023-06-12 06:49] LABS: Glucose,Whole Blood 51 mg/dL (70-110)
[2023-06-12] MEDS: DEXTROSE 50% SYRINGE 50 ML IVP PRN (06:53)
[2023-06-12 07:17] LABS: Glucose,Whole Blood 119 mg/dL (70-110)
--- NOTE | 2023-06-12 08:33 | P.PN ---
Subjective Progress Note Date: 06/12/23 Principal diagnosis: Right lower extremity infected wound Patient was seen and examined today as a follow-up. She is postop day #5 for right jghwz-une-zjee amputation. Pain has been pretty well controlled now. She was seen and evaluated yesterday by inpatient rehab however she was very lethargic and they will reevaluate possibly today. When going into the patient's room she was laying back eyes closed, easily arousable but very lethargic. Fading in and out of wakefulness. She recently had Dilaudid at 620 this morning. She has Xanax ordered which will be held. She states that she has some shortness of breath. Last oxygen saturation 95% on room air. Denies any chest pain, no abdominal pain, nausea or vomiting. Diarrhea has resolved. Objective - Vital Signs Vital signs: Vital Signs Temp 98.1 F 06/12/23 07:52 Pulse 86 06/12/23 07:52 Resp 22 06/12/23 07:52 BP 148/84 06/12/23 07:52 Pulse Ox 95 06/12/23 07:52 FiO2 Intake & Output 06/11/23 06/12/23 06/12/23 18:59 06:59 18:59 Intake Total 225 540 Output Total 1500 Balance 225 -960 Intake: Oral 225 540 Output: Urine 1500 Other: Voiding Method Diaper Diaper External Catheter External Catheter - Exam General appearance: The patient is lethargic, she is oriented. HET: Head is normocephalic and atraumatic. Pupils are equal and reactive. Neck: Supple. Heart: Regular. Lungs: Clear to auscultation bilaterally. Normal expansion, normal respiratory effort. Abdomen: Soft, nontender, nondistended. Extremities: Right groin with dressing clean dry and intact. Right lower extremity with stump forest fire management officer and rigid dressing in place. Neurological: Patient is lethargic, easily arousable but does fade in and out of closing her eyes. - Labs CBC & Chem 7: 06/10/23 08:07 06/11/23 07:54 Labs: Abnormal Lab Results - Last 24 Hours (Table) 06/11/23 06/11/23 06/11/23 Range/Units 07:54 16:18 20:52 Sodium 136 L (137-145) mmol/L BUN 4 L (7-17) mg/dL Creatinine 0.40 L (0.52-1.04) mg/dL POC Glucose (mg/dL) 44 L 136 H (70-110) mg/dL Calcium 7.0 L (8.4-10.2) mg/dL 06/12/23 06/12/23 06/12/23 Range/Units 06:13 06:47 07:15 Sodium (137-145) mmol/L BUN (7-17) mg/dL Creatinine (0.52-1.04) mg/dL POC Glucose (mg/dL) 59 L 51 L 119 H (70-110) mg/dL Calcium (8.4-10.2) mg/dL Assessment and Plan Assessment: 1. Right lower extremity infected wound status post right gpgjr-nne-wprj amputation 2. Right groin wound status post hematoma evacuation 3. Hypokalemia 4. 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 History of left external iliac artery occlusion 6. Coronary artery disease status post stenting mid RCA 04/04/2023 9. History of DVTs 10. Diabetes mellitus 11. History CVA Plan: 1. Resume anticoagulation and Plavix 2. Consistent carbohydrate diet, Glucerna added 3. Recommend PT/OT 4. Encourage activity as tolerated 5. Local wound care to right groin 6. Incentive spirometer at bedside, continue use every hour 7. [place] increased to 7.5-325 mg 8. Stump forest fire management officer and rigid dressing to right AKA stump 9. Hold morning dose of Xanax due to patient's lethargy 10. Will discontinue Dilaudid, continue oral pain medications. Can reevaluate pain control. 11. No further surgical intervention indicated, patient is cleared from vascular surgery for discharge Thank you for this consultation. The impression and plan of care has been dictated as directed. Dr. Mendoza I performed a history and examination of this patient, discussed the same with the dictator. I agree with the dictator's note ,documented as a scribe. Any additional findings or plans will be noted.
[2023-06-12] MEDS: ALPRAZolam 0.25 MG TAB PO SCH (08:45)
[2023-06-12] MEDS: ACETAMINOPHEN TAB 325 MG TAB PO PRN ×2 (09:55→20:08)
[2023-06-12] MEDS: CHOLESTYRAMINE (WITH SUGAR) 4 GM PACKET PO SCH ×2 (09:58→18:56)
[2023-06-12] MEDS: CLOPIDOGREL 75 MG TAB PO SCH (09:58)
[2023-06-12] MEDS: PANTOPRAZOLE 40 MG TABLET PO SCH (09:58)
[2023-06-12] MEDS: POTASSIUM CHLORIDE ER 10 MEQ TAB.ER.PRT PO SCH ×2 (09:58→20:07)
[2023-06-12] MEDS: FERROUS SULFATE 325 MG TAB PO SCH ×2 (09:59→20:08)
[2023-06-12] MEDS: APIXABAN 5 MG TAB PO SCH ×2 (09:59→20:08)
[2023-06-12] MEDS: GABAPENTIN 400 MG CAP PO SCH ×3 (09:59→20:07)
[2023-06-12] MEDS: DULoxetine HCL 60 MG CAPSULE.DR PO SCH ×2 (09:59→20:08)
[2023-06-12] MEDS: METOPROLOL TARTRATE 25 MG TAB PO SCH ×2 (09:59→20:08)
[2023-06-12] MEDS: lisinopriL 10 MG TAB PO SCH (09:59)
[2023-06-12 11:30] LABS: Glucose,Whole Blood 77 mg/dL (70-110)
[2023-06-12] MEDS: DOCUSATE 100 MG CAP PO SCH (12:59)
--- NOTE | 2023-06-12 15:06 | P.PN ---
Subjective Progress Note Date: 06/12/23 HISTORY OF PRESENT ILLNESS This is a 63-year-old female patient of mine with history of CAD with multiple cardiac stents in mid RCA, mid LAD, obtuse marginal branch and followed by Dr. Bill closely, peripheral artery disease with previous stenting done as well has amputation of the right great toe secondary to osteomyelitis, CVA with no residual deficits, hypertension, COPD, diabetes mellitus type 2, previous multiple DVT and PE requiring chronic anticoagulation on eliquis, history of GI bleed secondary to antral gastritis, esophagitis, vitamin D deficiency, autono margot hypotension on midodrine, history of left humerus fracture. resume with patient April 02 through April 15 at which time she presented to the hospital due to right second and fifth toe ischemic change. A CT angiogram showed evidence of occlusion of the right superficial femoral artery and 2 occluded segments 1 in the mid thigh about 3 cm and another into the right popliteal artery at 13 cm length, occlusion of the right iliac artery into the common femoral artery. Patient was seen in consultation by vascular surgery. Arterial ultrasound showed lower extremity abnormal on the right with HERMINIA suggests severe atherosclerotic disease. Critical stenosis not excluded. Plan for open bypass surgery with vascular surgery was made but a cardiology consult was requested. Patient was seen by Dr. Bill and had chest pain complaint and Due to critical in-stent restenosis and subsequently underwent cardiac catheterization which revealed critical in-stent restenosis of the RCA and Dr. Bill present performed stenting of the RCA. There was also intermediate disease in the first obtuse marginal branch of the left circumflex, intermediate disease involving the LAD and mildly elevated left sided filling pressures. Access was obtained from the right groin. Unfortunately following removal of the sheath, patient developed a significant hematoma to the right groin into the right pelvic area measuring up to 11.9 cm requiring ICU management, transfusion of packed RBCs and vasopressors for brief period along with IV fluid resuscitation. Patient was stabilized and discharged to home with home care but she returned with worsening wounds, hypotension with blood pressure of 84/57, leukocytosis of 26. She was seen by multiple consultants including wound care, infectious disease, vascular surgery. Patient underwent right common femoral to tibial vein bypass with debridement of a right exposed Achilles tendon heel, second third and fourth toes of the right foot and drainage of right inguinal hematoma with wound VAC with subsequent hematoma evacuation on 04/30. Patient was stabili zed and discharged to [facility] for subacute rehab. She returned to the emergency department about few weeks back and she was diagnosed with acute pancreatitis and she was taken off of her gaand she was discharged home because she refused to go back to [facility] and she recently underwent a skin grat to the right achilles lower leg area that was done by Umair Tejeda was Saturday before yesterday and carin was discharged home in a stable condition with a follow up last Saturday and then last and had the home care nurse coming for dressing changes and she was found to have black eschar on the back of her leg with purulent material coming out of her leg and right gron with a split wound where the LITO was and she appeared to have sepsis , she was started on IV Cefepime after obtaining blood cultures and wound cultures and she was admitted to the Hospital with vacular surgery consult along with ID consult 05/29: Patient has been seen by vascular surgery with plan for debridement of the Achilles area with possible amputation tomorrow. Eliquis has been discontinued. Patient has been maintained on Plavix. Blood pressure 149/85, heart rate is in the 70s, afebrile, pulse ox 94% on room air. WBC 11.6, hemoglobin 10.6, platelet count 269. Sodium 138, potassium 3.2 and will be replaced. Creatinine 0.6 BUN 6. Capillary blood glucose running between 85 and 129. Alkaline phosphatase 131. Gram stain from the wound right leg reveals moderate polymorphonuclear leukocytes, many gram-positive cocci and many gram- negative bacilli. Patient has been continued on cefepime 2 g IV piggyback every 12 hours. Patient is followed by infectious disease as well. Consult is in place for wound care center. 05/30: Patient is scheduled for debridement of the right lower extremity wound this afternoon with Dr. Mendoza. Deep cultures are to be obtained. Patient is continued on cefepime and daptomycin per Dr. Sheppard. Fevers are improving. Heart rate is in the 70s and 80s, blood pressure 128/57, pulse ox 94% on room air. WBC 10.3, hemoglobin 9.8, platelet count 234. Sodium 137, potassium 3.2, CO2 36, BUN 7 creatinine 0.67. CBG [id number]. Wound cultures are showing gram- negative bacilli. Blood culture no growth at 48 hours. Patient has been seen by the wound care team with recommendations for Santyl, saline moistened gauze dry gauze to the right groin wound. 05/31: Yesterday, patient underwent a sharp excisional debridement of the right lower extremity wound but due to the extent of the wound, poor tissue quality and lack of adequate flap potential, it has been recommended the patient undergo zbjzk-qle-ibsr amputation. Cardiology has cleared the patient for surgical intervention knowing that she is at high risk but no absolute contraindications. Recommendations are to continue patient on aspirin while plavix on hold. We will plan on Lovenox once eliquis is discontinued prior to surgery. Patient continues to complain of pain to the right ankle foot area. She denies having any chest pain. No shortness of breath. She complains of feeling tired. Repeat blood work reveals WBC 9.4, hemoglobin 8.6, platelet count 236. Sodium 1 36, potassium 3.5, creatinine 0.64. Blood blood glucose this morning prior to lunch was 49. Otherwise blood sugars are running on the lower side in general 65-115. Scheduled NovoLog 10 units with meals will be discontinued and long- acting insulin was decreased. 06/03: Patient continues to be followed by vascular surgery with plan for right danfn-nuz-btlm amputation on Saturday. Patient has been seen by cardiology and they've signed off. Plan is to continue aspirin 81 mg daily until patient can be resumed back on Plavix. Patient is also on eliquis transition to Lovenox until eliquis can be resumed following surgery. Antibiotics have been changed to meropenem per infectious disease. The blood glucose running between 159 and 175. 06/04: Patient states that pain to the right foot is a #6 out of 7. Plan is continued for amputation on Saturday with Dr. Mendoza. Capillary blood glucose ru nning between 168 and 227. Patient has been afebrile, heart rate 66, blood pressure 133/70. Patient has no new concerns. She continues to have minimal appetite. Family members are at bedside and all questions have been answered. 06/05: Patient remains afebrile, heart rate in the 70s to 90s, blood pressure 163/75, pulse ox 99% on room air. Patient continues to not have very much appetite. She also continues to have pain in the right foot ankle. Patient is having more anxiety related to upcoming surgery for which Xanax will be added. WBC 5, hemoglobin 10.5, platelet count 279. Sodium 133, potassium 3.9, chloride 96, CO2 27, BUN 8 and creatinine 0.62. Blood glucose running 126-155. 06/06: No new concerns from the patient. She is quite anxious in anticipation of surgery for tomorrow. She is scheduled for right iwhym-maq-dlee amputation tomorrow with Dr. Mendoza. Capillary blood glucose running between 101 and 168. Patient remains afebrile, heart rate in the 70s, blood pressure 162/81, pulse ox 96% on room air. 06/07: Patient is status post right ekfhw-vms-xkfr amputation. Patient is seen postoperatively back in her room. Her pain is currently fairly well controlled. Repeat blood work reveals hemoglobin of 8.6. Sodium 135, potassium 3.6, BUN 6 and creatinine 0.54. Blood sugar this morning was 54. Calcium 6.3. Patient has been transfused 1 unit of packed RBCs. Heart rate is 63, blood pressure 123/61 and pulse ox 99% on 3 L. Patient will be resumed back on eliquis and Plavix tomorrow. 06/10: Patient is postop day #3. 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 Patient is currently on [place] 7.54 times daily as needed for pain. She seems to be comfortable at this time. She is stating that she is not sleeping and not eating very much. She denies having any nausea or vomiting. She has had loose bowel movements possibly due to antibiotics. Questran has been added. Patient is no longer on antibiotics. No abdominal pain. She is reaching 1250 ml on incentive spirometry. She's been afebrile, heart rate 82, blood pressure 154/86, pulse ox 94% on room air. Patient is out of bed for the first time with the help of physical therapy. She is now agreeable to inpatient rehab and consult placed for evaluation. Loxitane has been increased to twice daily 60 mg. We'll 06/11: Patient is complaining of severe pain this morning. Diarrhea has resolved and C. difficile toxin came back negative. She is off IV antibiotics. Wound cultures were positive for Pseudomonas and enterococcus and Proteus. Yesterday, we added consult for inpatient rehab which we expect they will be evaluating today. Blood pressure 154/95, heart rate in the 70s. She's been afebrile, pulse ox 90% on room air. 06/12: Patient was seen yesterday by inpatient rehab for evaluation but she was quite sedated for the examination. Yesterday, Xanax was changed to when necessary but she was quite lethargic this morning and vascular has discontinued IV Dilaudid. She is crying out in pain and can be heard down the matson. She is currently on Quechee 7.5 one every 6 hours. Consult has been added for pain management. Patient remains afebrile, heart rate in the 80s, blood pressure 125/82 and pulse ox 97% on room air. Blood sugar this morning was 59 and at lunch 77. Levemir as at 28 units at bedtime which will be decreased to 10 units. Patient will be transferred to [facility] without telemetry today. Patient seen again later in the afternoon and appears to be quite fatigued. Pain seems to be controlled at this time. REVIEW OF SYSTEMS Constitutional: positive for fever, No chills, no night sweats. Reports weight loss. Reports weakness, Reports fatigue no lethargy. NO daytime sleepiness. HEENT: No headache. No dizziness. Reports difficulty swallowing. No nasal drainage or congestion. No epistaxis. No sore throat. Lungs: No shortness of breath, cough, no sputum production. No wheezing. Cardiovascular: No chest pain, no lower extremity edema. No palpitations. No paroxysmal nocturnal dyspnea. No orthopnea. No lightheadedness or dizziness. No syncopal episodes. Abdominal: Reports abdominal pain. Reports nausea, no vomiting. no diarrhea. No constipation. No bloody or tarry stools. Reports loss of appetite. Genitourinary: No dysuria, increased frequency, urgency. No urinary retention. Musculoskeletal: No myalgias. positive for muscle weakness, reports balance issues, reports gait dysfunction, reports frequent falls. No back pain. No neck pain. Integumentary: Left achilles wound, right groin wound, Right 2nd, 3rd and 5th toes and right big toe amputation status post rdzyy-tar-sdhu amputation Neurologic: No aphasia. No facial droop. Noted intermittent change in mentation. No head injury. No headache. No paralysis. No paresthesia. Psychiatric: Reports depression. Reports anxiety. No mood swings. Endocrine: abnormal blood sugars. positive for weight change. No excessive sweating or thirst. No cold intolerance. PHYSICAL EXAMINATION Gen: This is a 63-year-old female. She is resting in bed and appears to be in no acute distress. HEENT: Head is atraumatic, normocephalic. Pupils equal, round. Sclerae is anicteric. Mucous members of the mouth are somewhat dry. NECK: Supple. No JVD. No lymphadenopathy. No thyromegaly. LUNGS: Clear to auscultation. No wheezes or rhonchi. No intercostal retractions. 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 ABDOMEN: Soft. Bowel sounds are present. No masses. no tenderness. Large hematoma to right pelvis soft, surrounding and dependent ecchymosis. EXTREMITIES: No pedal edema. Right ehmqj-plm-gcoc amputation. NEUROLOGICAL: Patient is awake, alert and oriented x3. Cranial nerves 2 through 12 are grossly intact. Muscle power 4/5 in the left upper extremity, 4/5 in the right upper extremity, 3/5 in the bilateral lower extremities. ASSESSMENT AND PLAN 1. Right leg infected/failed graft with sepsis status post right tidoa-hyc-fruv amputation. Patient is off IV antibiotics. Continue current pain management, incentive spirometry to reduce incidence of atelectasis and hospital-acquired pneumonia continue local wound care per vascular surgery. Continue Quechee for pain control. Transfer to [facility]. 2. Recent right common femoral to tibial vein bypass with debridement of the right exposed Achilles tendon heel second third and fifth toes of the right foot, also drainage of the right inguinal hematoma post removal of the LITO drain with a split wound in the right groin, we will continue with current treatment as in [place] #1 consult vascular surgery. Continue local wound care per wound Center to groin. 3. Coronary artery disease with recent stent of the RCA due to recent in-stent restenosis. Patient has had previous multiple cardiac stents to the RCA and mid LAD, obtuse marginal branch. Continue patient on a Plavix 75 mg daily, Lopressor 25 mg twice daily, Crestor 20 mg daily. 4. Diabetes mellitus type 2 uncontrolled with hyperglycemia and now hypoglycemia as patient is not eating much. Continue NovoLog scale before meals and at bedtime. Decrease Lantus to 10 units at bedtime. Discontinue Novolog 10 units AC meals TID 5. Hyperlipidemia. Continue Atorvastatin 40 mg po daily 6. Chronic DVT and PEs. Continue patient on eliquis 5 mg twice daily. 7. Chronic anemia with recent acute blood loss anemia secondary to hematoma in the right groin/pelvis. Continue patient on ferrous sulfate 325 mg twice daily. 8. Hypertension and hypertensive cardiovascular disease, Continue lisinopril increased to 10 mg daily, Lopressor 25 mg twice daily. 9. Gastroesophageal reflux disease and GI prophylaxis. Continue Pantoprazole 40 mg daily. 10. Diabetic neuropathy. w will continue wit Gabapentin 400 mg po tid. 11. Generalized anxiety disorder, recurrent depression. Continue Cymbalta 60 mg daily, and Xanax 0.25 mg twice daily as needed. 12. Patient diagnosed with EPI at [facility], [facility]. 13. Generalized debility, weakness secondary to extensive and repeated hospitalizations and multiple medical conditions. Consult with inpatient rehab. Continue PT and OT. Full code. Impression and plan of care have been directed as dictated by the signing physician. Kerri Kevin nurse practitioner acting as scribe for signing physician. Objective - Vital Signs Vital signs: Vital Signs Temp 97.6 F 06/12/23 12:00 Pulse 83 06/12/23 12:00 Resp 18 06/12/23 12:00 BP 125/82 06/12/23 12:00 Pulse Ox 97 06/12/23 12:00 FiO2 Intake & Output 06/11/23 06/12/23 06/12/23 18:59 06:59 18:59 Intake Total 225 540 225 Output Total 1500 Balance 225 -960 225 Intake: Oral 225 540 225 Output: Urine 1500 Other: Voiding Method Diaper Diaper Diaper External Catheter External Catheter External Catheter - Labs CBC & Chem 7: 06/10/23 08:07 06/11/23 07:54 Labs: Abnormal Lab Results - Last 24 Hours (Table) 06/11/23 06/11/23 06/12/23 Range/Units 16:18 20:52 06:13 POC Glucose (mg/dL) 44 L 136 H 59 L (70-110) mg/dL 06/12/23 06/12/23 Range/Units 06:47 07:15 POC Glucose (mg/dL) 51 L 119 H (70-110) mg/dL
[2023-06-12 16:28] LABS: Glucose,Whole Blood 88 mg/dL (70-110)
[2023-06-12] MEDS: HYDROcodone/APAP 7.5-325MG 1 EACH TAB PO PRN ×2 (18:19→23:45)
[2023-06-12] MEDS: ALPRAZolam 0.25 MG TAB PO PRN (20:08)
[2023-06-12] MEDS: MELATONIN 3 MG TABLET PO SCH (20:08)
[2023-06-12 20:13] LABS: Glucose,Whole Blood 90 mg/dL (70-110)
[2023-06-12] MEDS: INSULIN DETEMIR (LEVEMIR) 100 UNIT/ML SYR SQ SCH (20:18)
[2023-06-12] MEDS ORDERED: HYDROmorphone 1 MG/ML 1 ML SYRINGE IVP STA (23:41)
[2023-06-13 04:10] LABS: Glucose,Whole Blood 160 mg/dL (70-110)
[2023-06-13 06:09] LABS: Glucose,Whole Blood 146 mg/dL (70-110)
[2023-06-13] MEDS: INSULIN ASPART (NovoLOG) 100 UNIT/ML VIAL SQ SCH ×4 (06:40→20:37)
[2023-06-13] MEDS: HYDROcodone/APAP 7.5-325MG 1 EACH TAB PO PRN ×2 (09:04→17:27)
[2023-06-13] MEDS: GABAPENTIN 400 MG CAP PO SCH ×3 (09:05→20:51)
[2023-06-13] MEDS: POTASSIUM CHLORIDE ER 10 MEQ TAB.ER.PRT PO SCH ×2 (09:05→20:52)
[2023-06-13] MEDS: METOPROLOL TARTRATE 25 MG TAB PO SCH ×2 (09:05→20:52)
[2023-06-13] MEDS: APIXABAN 5 MG TAB PO SCH ×2 (09:05→20:51)
[2023-06-13] MEDS: CLOPIDOGREL 75 MG TAB PO SCH (09:05)
[2023-06-13] MEDS: PANTOPRAZOLE 40 MG TABLET PO SCH (09:05)
[2023-06-13] MEDS: lisinopriL 10 MG TAB PO SCH (09:05)
[2023-06-13] MEDS: CHOLESTYRAMINE (WITH SUGAR) 4 GM PACKET PO SCH ×2 (09:06→17:28)
[2023-06-13] MEDS: DULoxetine HCL 60 MG CAPSULE.DR PO SCH ×2 (09:06→20:51)
[2023-06-13] MEDS: FERROUS SULFATE 325 MG TAB PO SCH ×2 (09:06→20:52)
[2023-06-13] MEDS: DOCUSATE 100 MG CAP PO SCH (09:06)
--- NOTE | 2023-06-13 10:23 | P.PN ---
Subjective Progress Note Date: 06/13/23 (Late entry. Patient was seen approximately 0800) Principal diagnosis: Right lower extremity infected wound She was seen and examined today as a follow-up. She is sleeping at this time. Nursing reports she had 3 episodes of diarrhea through the night and complains of pain. She did receive a 1 time dose of Dilaudid. She supposed be reevaluated for inpatient rehab and pain management was consulted for recommendations for pain medications. Objective - Vital Signs Vital signs: Vital Signs Temp 97.5 F L 06/13/23 08:53 Pulse 78 06/13/23 08:53 Resp 18 06/13/23 08:53 BP 158/86 06/13/23 08:53 Pulse Ox 98 06/13/23 08:53 FiO2 Intake & Output 06/12/23 06/13/23 06/13/23 18:59 06:59 18:59 Intake Total 225 237 240 Output Total 650 1450 Balance -425 -1213 240 Weight 93.44 kg Intake: Oral 225 237 240 Output: Urine 650 1450 Other: Voiding Method Diaper Diaper External Catheter External Catheter # Bowel Movements 1 - Exam General appearance: The patient was sleeping on her left side. HET: Head is normocephalic and atraumatic. Neck: Supple. Extremities: Right AKA with rigid dressing in place Neurological: sleeping - Labs CBC & Chem 7: 06/10/23 08:07 06/11/23 07:54 Labs: Abnormal Lab Results - Last 24 Hours (Table) 06/13/23 06/13/23 Range/Units 04:06 06:08 POC Glucose (mg/dL) 160 H 146 H (70-110) mg/dL Assessment and Plan Assessment: 1. Right lower extremity infected wound status post right kjdhr-erw-gjia amputation 2. Right groin wound status post hematoma evacuation 3. Hypokalemia 4. 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 History of left external iliac artery occlusion 6. Coronary artery disease status post stenting mid RCA 04/04/2023 9. History of DVTs 10. Diabetes mellitus 11. History CVA Plan: 1. Resume anticoagulation and Plavix 2. Consistent carbohydrate diet, Glucerna added 3. Continue PT/OT 4. Encourage activity as tolerated 5. Local wound care to right groin 6. Incentive spirometer at bedside, continue use every hour 7. Sodus increased to 7.5-325 mg 8. 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 Continue with recommendations from pain management regarding further pain medications 10. No further surgical intervention indicated, patient is cleared from vascular surgery for discharge Thank you for this consultation. We will sign off at this time. The impression and plan of care has been dictated as directed. Dr. Mendoza I performed a history and examination of this patient, discussed the same with the dictator. I agree with the dictator's note ,documented as a scribe. Any additional findings or plans will be noted.
[2023-06-13 11:32] LABS: Glucose,Whole Blood 243 mg/dL (70-110)
--- NOTE | 2023-06-13 12:58 | P.PN ---
Subjective Progress Note Date: 06/12/23 Principal diagnosis: Right leg wound infection Patient is a 63-year-old female with a past medical history significant for diabetes mellitus peripheral arterial disease coronary disease patient did have PAD and bypass graft with CryoVein right common thromboendarterectomy and right groin hematoma evacuation as well as right Achilles wound debridement and skin graft application patient has been sent to the ER by the home care nurse concerning for infection of the right lower extremity, patient is status post Sharp excisional debridement right lower extremity wound measuring 23 x 9 x 2.5 cm to muscle with undermining at the 12 o'clock position of 8.7 cm completed on 05/30/2023, the patient is status post right ddzav-ctk-msdr amputation completed on 06/07/2023 On today's evaluation that is 06/12/2023, the patient remains to be afebrile, the patient is breathing comfortably on room air and denies any shortness of breath, the patient denies any chest pain or cough , patient denies abdominal pain and no nausea/vomiting or diarrhea , the patient pain to the right AK stump is controlled Patient white count is 2.9 as of 06/10/2023, creatinine is 0.40 as of yesterday no laboratory today, stool for C. diff is negative, cultures are currently growing Pseudomonas enterococcus and Proteus Objective - Vital Signs Vital signs: Vital Signs Temp 97.6 F 06/12/23 12:00 Pulse 83 06/12/23 12:00 Resp 18 06/12/23 12:00 BP 125/82 06/12/23 12:00 Pulse Ox 97 06/12/23 12:00 FiO2 Intake & Output 06/11/23 06/12/23 06/12/23 18:59 06:59 18:59 Intake Total 225 540 0 Output Total 1500 Balance 225 -960 0 Intake: Oral 225 540 0 Output: Urine 1500 Other: Voiding Method Diaper Diaper Diaper External Catheter External Catheter External Catheter - Exam GENERAL DESCRIPTION: Middle-aged female lying in bed in no distress RESPIRATORY SYSTEM: Unlabored breathing , clear to auscultation anteriorly HEART: S1 S2 regular rate and rhythm , ABDOMEN: Soft , no tenderness EXTREMITIES: Right AKA site is currently dressed - Labs CBC & Chem 7: 06/10/23 08:07 06/11/23 07:54 Labs: Abnormal Lab Results - Last 24 Hours (Table) 06/11/23 06/11/23 06/12/23 Range/Units 16:18 20:52 06:13 POC Glucose (mg/dL) 44 L 136 H 59 L (70-110) mg/dL 06/12/23 06/12/23 Range/Units 06:47 07:15 POC Glucose (mg/dL) 51 L 119 H (70-110) mg/dL Assessment and Plan (1) Cellulitis of right leg Current Visit: Yes Status: Acute Code(s): L03.115 - CELLULITIS OF RIGHT LOWER LIMB SNOMED Code(s): 49479929708218395 (2) Leg wound, right Current Visit: Yes Status: Acute Code(s): S81.801A - UNSPECIFIED OPEN WOUND, RIGHT LOWER LEG, INITIAL ENCOUNTER SNOMED Code(s): 777912344 Plan: 1patient presented to hospital with sepsis in this patient with a fever elevated white count source likely her right lower extremity infected wound and second cellulitis likely from gram-positive skin jesus however the patient recently has grown Pseudomonas from the area could be related to the same pathogen. 2patient did have a vancomycin allergy that will limit the number of antibiotics safe to use. 3patient is status post surgical debridement and deep culture, with initial culture growing Pseudomonas enterococcus and Proteus 4-patient is s/p right eirhx-ryp-igtc amputation per vascular surgery completed on 06/07/2023 5-patient has developed significant diarrhea possible antibiotic associated, stool for C. diff is negative, patient did have improvement in her diarrhea, patient to continue with the Questran and will monitor closely off antibiotic therapy ,Dictation was produced using [employer] dictation software. please excuse any grammatical, word or spelling errors. Time with Patient: Less than 30
--- NOTE | 2023-06-13 12:59 | P.PN ---
Subjective Progress Note Date: 06/13/23 Principal diagnosis: Right leg wound infection Patient is a 63-year-old female with a past medical history significant for diabetes mellitus peripheral arterial disease coronary disease patient did have PAD and bypass graft with CryoVein right common thromboendarterectomy and right groin hematoma evacuation as well as right Achilles wound debridement and skin graft application patient has been sent to the ER by the home care nurse concerning for infection of the right lower extremity, patient is status post Sharp excisional debridement right lower extremity wound measuring 23 x 9 x 2.5 cm to muscle with undermining at the 12 o'clock position of 8.7 cm completed on 05/30/2023, the patient is status post right hoaho-oqi-kako amputation completed on 06/07/2023 On today's evaluation that is 06/13/2023, the patient continues to be afebrile, the patient is breathing comfortably on room air , patient is currently sleepy at the time of evaluation no changes reported by the son at the bedside Patient white count is 2.9 as of 06/10/2023, creatinine is 0.40 as of 06/11/2023 no lab draw today, stool for C. diff is negative, cultures are currently growing Pseudomonas enterococcus and Proteus Objective - Vital Signs Vital signs: Vital Signs Temp 97.5 F L 06/13/23 08:53 Pulse 78 06/13/23 08:53 Resp 18 06/13/23 08:53 BP 158/86 06/13/23 08:53 Pulse Ox 98 06/13/23 08:53 FiO2 Intake & Output 06/12/23 06/13/23 06/13/23 18:59 06:59 18:59 Intake Total 225 237 240 Output Total 650 1450 250 Balance -425 -1213 -10 Weight 93.44 kg Intake: Oral 225 237 240 Output: Urine 650 1450 250 Other: Voiding Method Diaper Diaper Diaper External Catheter External Catheter External Catheter # Voids 1 # Bowel Movements 1 - Labs CBC & Chem 7: 06/10/23 08:07 06/11/23 07:54 Labs: Abnormal Lab Results - Last 24 Hours (Table) 06/13/23 06/13/23 06/13/23 Range/Units 04:06 06:08 11:31 POC Glucose (mg/dL) 160 H 146 H 243 H (70-110) mg/dL Assessment and Plan (1) Cellulitis of right leg Current Visit: Yes Status: Acute Code(s): L03.115 - CELLULITIS OF RIGHT LOWER LIMB SNOMED Code(s): 89837906699444893 (2) Leg wound, right Current Visit: Yes Status: Acute Code(s): S81.801A - UNSPECIFIED OPEN WOUND, RIGHT LOWER LEG, INITIAL ENCOUNTER SNOMED Code(s): 435671152 Plan: 1patient presented to hospital with sepsis in this patient with a fever elev ated white count source likely her right lower extremity infected wound and second cellulitis likely from gram-positive skin jesus however the patient recently has grown Pseudomonas from the area could be related to the same pathogen. 2patient did have a vancomycin allergy that will limit the number of antibiotics safe to use. 3patient is status post surgical debridement and deep culture, with initial culture growing Pseudomonas enterococcus and Proteus 4-patient is s/p right keqne-ira-bbzu amputation per vascular surgery completed on 06/07/2023 5-patient has developed significant diarrhea possible antibiotic associated, stool for C. diff is negative, patient did have improvement in her diarrhea for the patient will continue with the Questran and no need for systemic antibiotic therapy at this point ,Dictation was produced using [employer] dictation software. please excuse any grammatical, word or spelling errors. Time with Patient: Less than 30
--- NOTE | 2023-06-13 13:00 | P.PN ---
Subjective Progress Note Date: 06/13/23 Principal diagnosis: Right angela Ybarra is a 63 y/o right handed, female, , who lives in a mobile home, with 3 MASOUD with her ex-. Prior to admission, she was ambulating with a 4 WW. She was independent for basic/advanced ADLs. Current driving: no . Retired: yes Support system: ex and children She was admitted to [facility] on 05/28. She presented to the ED with concerns for infection. Patient has had multiple hospitalizations over the last 2 months. Of note patient was recently hospitalized and underwent a cardiac cath with stent placement. Postoperatively, patient developed a significant hematoma to the right groin into the right pelvic area requiring ICU management, transfusion of PRBCs and vasopressors for a brief period. Patient was stabilized and discharged home with home care but she returned with worsening wounds, hypotension and leukocytosis of 26. She was seen by multiple consultants including wound care, ID and vascular surgery. Patient underwent right common femoral to tibial vein bypass with debridement of a right exposed achilles tendon/heel, second third and fourth toes of the right foot and drainag e of right inguinal hematoma with wound VAC placement and subsequent hematoma evacuation on 04/30. Patient was stabilized and discharged to [facility] for subacute rehab. She was admitted to [facility] again on 05/10 and diagnosed with acute pancreatitis, was treated and discharged home. She underwent a skin graft to the right achilles/lower leg area 05/20, done by Umair Tejeda in addition to wound VAC removal. She was discharged home in stable condition with multiple follow-ups. She had a home care nurse coming for dressing changes and was found to have a fever with black eschar on the back of her leg with purulent drainage. It was also noted that her right groin wound was split where the LITO drain was. Subsequently, she was transported to [facility] and admitted with septic shock with consultations to vascular surgery and ID, and she was started on IV Cefepime after obtaining blood cultures and wound cultures. 05/30 patient underwent a sharp excisional debridement of the right lo wer extremity wound, but due to the extent of the wound, poor tissue quality and lack of adequate flap potential, it was recommended the patient undergo kiicn-zmf-ucop amputation. 06/07 she underwent a right vclcy-ejg-grdd amputation with DrShobha Messer has been seeing the patient post- operatively. Recently patient has had issues with diarrhea, testing negative for C. difficile. She has completed her antibiotics. PM&R consulted for rehab recommendations. Therapy evaluations reviewed; patient needing total assist for bathing, total assist UB dressing, total assist LB dressing, min assist for grooming, total assist for toileting ability, supervision for eating, total assist bed mobility, total assist scooting 06/11/2023: Patient was found in bed. with HOB elevated and son Zain at bedside. Son has concerns for patients lethargy. He reports that she has been lethargic since she has been getting xanax. patient able to wake momentarily and provide short answers to questions then falls asleep again. Patient denies CP, SOB and abdominal pain. She is eating "some". Reports that her pain is tolerable at this time. Patients son would really like her to come to [facility] at [facility] for rehabilitation. Advised patient and son that we will continue to follow the patient and her progress with therapy and make further determinations based on these findings. Advised patient that participation in therapy is important in her recovery, and encouraged her to participate. Therapy progress: Max assist bathing, mod assist UB dressing, total assist LB dressing, supervision grooming, modified independent for eating, toileting ability total assist, bed mobility total assist, bed transfers total assist with sliding board Objective - Vital Signs Vital signs: Vital Signs Temp 97.5 F L 06/13/23 08:53 Pulse 78 06/13/23 08:53 Resp 18 06/13/23 08:53 BP 158/86 06/13/23 08:53 Pulse Ox 98 06/13/23 08:53 FiO2 Intake & Output 06/12/23 06/13/23 06/13/23 18:59 06:59 18:59 Intake Total 225 237 240 Output Total 650 1450 Balance -425 -1213 240 Weight 93.44 kg Intake: Oral 225 237 240 Output: Urine 650 1450 Other: Voiding Method Diaper Diaper Diaper External Catheter External Catheter External Catheter # Bowel Movements 1 - Exam EXAM: General: WDWN, female,more awake, resting in bed, HOB elevated, son at bedside, NAD Head: Normocephalic, atraumatic. Eyes: Symmetric Ears: Symmetric. Hearing within normal limits. Mouth: Clear. Neck: Supple. Cardiac: phototypesetting equipment monitor on. left calf supple, non tender, no edema Lungs: Breathing comfortably on RA. Chest symmetric. Abdomen: Soft, nontender. Extremities: Arthritic changes consistent with age. right AKA with wrap/financial underwriter in place Neurological: Alert and oriented x 2 (not oriented to time). Wakes momentarily to provide short answers to questions Speech is clear, slow without paraphasic errors Cranial nerves: CN II-XII: intact. Sensation: Intact and symmetrical limbs. right AKA Musculoskeletal: ROM WFL EXCEPT: right AKA, lethargic/fatigued with poor effort with exam MMT UE Sh Abd EE EF FABD WE HG Right 3+ 3+ 3+ 4 4 4 Left 3+ 3+ 3+ 4 4 4 MMT LE HF KE DF EHL Right 2 - - - Left 3 3 4+ 4+ Reflexes Biceps Triceps Brachioradialis Patella Achilles Babinski Hoffmans Right 2 2 2 - Left 2 2 2 2 Skin: Skin intact where visible to head, neck, and bilateral upper and lower extremities EXCEPT: PIV, right AKA with wrap/financial underwriter in place, right groin dressing CDI Psych: Calm, cooperative - Labs CBC & Chem 7: 06/10/23 08:07 06/11/23 07:54 Labs: Abnormal Lab Results - Last 24 Hours (Table) 06/13/23 06/13/23 06/13/23 Range/Units 04:06 06:08 11:31 POC Glucose (mg/dL) 160 H 146 H 243 H (70-110) mg/dL Assessment and Plan Assessment: #Gait instability/impaired ADLs secondary to sepsis/infection of right leg wound with failed skin graft status post right imbin-hjq-ldel amputation 06/07 -Wound care and vascular surgery following -Ayde following -cultures showed Pseudomonas enterococcus and Proteus s/p antibiotics -right stump wrapped with financial underwriter in place #Lethargic -06/11: spoke with patients son who states she has been like this since starting xanax. Discussed concern with case management that lethargy may prevent patient participation in therapy. Case management discussed with IM CLEANER TOUCH UP WORKER -06/13: No Xanax administered since 8 PM 06/12 #s/p right common femoral to tibial vein bypass with debridement of the right exposed achilles tendon/heel, second, third and fifth toes of the right foot -s/p right AKA #Right inguinal hematoma s/p VAC placement, s/p hematoma evacuation -Wound care following -dressing CDI #CAD s/p stent placement -Plavix #History of multiple DVT's and PEs -Eliquis #History of CVA with left-sided weakness and 2018 #Diabetes mellitus with neuropathy #History of pancreatitis #History amputation of right great toe secondary to osteomyelitis #Anxiety/Depression -Cymbalta, Xanax -06/11: xanax recently changed to TID scheduled from BID prn, discussed lethargy concern with case management who contacted CLEANER TOUCH UP WORKER -06/13: No Xanax administered since 8 PM 06/12 # Bowel/ Bladder: Nursing to monitor and report concerns if any. -06/11: purewick in place, denies issues with bowels # Diet -Cardiac diet/consistent carb, Glucerna 3 times daily with meals, Magic cups twice daily with meals # Skin/wound: Skin/Wound care to follow as needed # Pain Management -Tylenol 650 mg every 6 hours as needed, gabapentin 400 mg 3 times daily, [place] 7.5/325 mg every 6 hours as needed, Dilaudid 0.5 mg IV push every 3 hours as needed -06/13: dilaudid discontinued # DVT Prophylaxis: -eliquis # Comorbidities: GERD, chronic anemia, hyperlipidemia, PAD, chronic pain syndrome, hypertension, COPD-current smoker # Your medical dx and mgt Goals: Modified Independent mobility and ADLS both basic and advanced; increased functional mobility/strength; increased balance, safety, endurance. Improvement in medical issues through your care. Barriers: Pain, endurance, anxiety, right AKA, lethargy Discharge recommendation: [facility] at discharge. Patient has rehabilitation needs, and is mod to max assist for most ADLs. Her barrier was lethargy secondary to polypharmacy however she is improving daily. Prior to hospitalization she was independent. She is motivated to participate. Patient seen and examined by Dr. Tsang Note prepped by Nasrin Edwards NP-C Author: Nasrin Edwards NP
[2023-06-13] MEDS: ACETAMINOPHEN TAB 325 MG TAB PO PRN ×2 (13:49→20:51)
[2023-06-13 16:27] LABS: Glucose,Whole Blood 127 mg/dL (70-110)
[2023-06-13 20:31] LABS: Glucose,Whole Blood 133 mg/dL (70-110)
[2023-06-13] MEDS: INSULIN DETEMIR (LEVEMIR) 100 UNIT/ML SYR SQ SCH (20:51)
[2023-06-13] MEDS: ALPRAZolam 0.25 MG TAB PO PRN (20:51)
[2023-06-13] MEDS: MELATONIN 3 MG TABLET PO SCH (20:52)
[2023-06-14] MEDS: LACTATED RINGERS 1,000 ML IV SCH ×2 (00:09→22:59)
[2023-06-14] MEDS: HYDROcodone/APAP 7.5-325MG 1 EACH TAB PO PRN ×4 (00:50→20:03)
[2023-06-14 05:51] LABS: Glucose,Whole Blood 133 mg/dL (70-110)
[2023-06-14] MEDS: INSULIN ASPART (NovoLOG) 100 UNIT/ML VIAL SQ SCH ×4 (05:58→20:53)
[2023-06-14] MEDS: PANTOPRAZOLE 40 MG TABLET PO SCH (08:30)
[2023-06-14] MEDS: FERROUS SULFATE 325 MG TAB PO SCH ×2 (08:30→20:54)
[2023-06-14] MEDS: CLOPIDOGREL 75 MG TAB PO SCH (08:30)
[2023-06-14] MEDS: lisinopriL 10 MG TAB PO SCH (08:30)
[2023-06-14] MEDS: DULoxetine HCL 60 MG CAPSULE.DR PO SCH ×2 (08:30→20:54)
[2023-06-14] MEDS: METOPROLOL TARTRATE 25 MG TAB PO SCH ×2 (08:30→20:53)
[2023-06-14] MEDS: POTASSIUM CHLORIDE ER 10 MEQ TAB.ER.PRT PO SCH ×2 (08:30→20:54)
[2023-06-14] MEDS: GABAPENTIN 400 MG CAP PO SCH ×3 (08:30→20:54)
[2023-06-14] MEDS: DOCUSATE 100 MG CAP PO SCH (08:30)
[2023-06-14] MEDS: APIXABAN 5 MG TAB PO SCH ×2 (08:30→20:54)
[2023-06-14] MEDS: CHOLESTYRAMINE (WITH SUGAR) 4 GM PACKET PO SCH ×2 (08:31→17:21)
[2023-06-14 11:24] LABS: Glucose,Whole Blood 231 mg/dL (70-110)
--- NOTE | 2023-06-14 12:07 | P.PN ---
Subjective Progress Note Date: 06/13/23 HISTORY OF PRESENT ILLNESS This is a 63-year-old female patient of mine with history of CAD with multiple cardiac stents in mid RCA, mid LAD, obtuse marginal branch and followed by Dr. Bill closely, peripheral artery disease with previous stenting done as well has amputation of the right great toe secondary to osteomyelitis, CVA with no residual deficits, hypertension, COPD, diabetes mellitus type 2, previous multiple DVT and PE requiring chronic anticoagulation on eliquis, history of GI bleed secondary to antral gastritis, esophagitis, vitamin D deficiency, autono margot hypotension on midodrine, history of left humerus fracture. resume with patient April 02 through April 15 at which time she presented to the hospital due to right second and fifth toe ischemic change. A CT angiogram showed evidence of occlusion of the right superficial femoral artery and 2 occluded segments 1 in the mid thigh about 3 cm and another into the right popliteal artery at 13 cm length, occlusion of the right iliac artery into the common femoral artery. Patient was seen in consultation by vascular surgery. Arterial ultrasound showed lower extremity abnormal on the right with HERMINIA suggests severe atherosclerotic disease. Critical stenosis not excluded. Plan for open bypass surgery with vascular surgery was made but a cardiology consult was requested. Patient was seen by Dr. Bill and had chest pain complaint and Due to critical in-stent restenosis and subsequently underwent cardiac catheterization which revealed critical in-stent restenosis of the RCA and Dr. Bill present performed stenting of the RCA. There was also intermediate disease in the first obtuse marginal branch of the left circumflex, intermediate disease involving the LAD and mildly elevated left sided filling pressures. Access was obtained from the right groin. Unfortunately following removal of the sheath, patient developed a significant hematoma to the right groin into the right pelvic area measuring up to 11.9 cm requiring ICU management, transfusion of packed RBCs and vasopressors for brief period along with IV fluid resuscitation. Patient was stabilized and discharged to home with home care but she returned with worsening wounds, hypotension with blood pressure of 84/57, leukocytosis of 26. She was seen by multiple consultants including wound care, infectious disease, vascular surgery. Patient underwent right common femoral to tibial vein bypass with debridement of a right exposed Achilles tendon heel, second third and fourth toes of the right foot and drainage of right inguinal hematoma with wound VAC with subsequent hematoma evacuation on 04/30. Patient was stabili zed and discharged to [facility] for subacute rehab. She returned to the emergency department about few weeks back and she was diagnosed with acute pancreatitis and she was taken off of her gaand she was discharged home because she refused to go back to [facility] and she recently underwent a skin grat to the right achilles lower leg area that was done by Umair Tejeda was Saturday before yesterday and carin was discharged home in a stable condition with a follow up last Saturday and then last and had the home care nurse coming for dressing changes and she was found to have black eschar on the back of her leg with purulent material coming out of her leg and right gron with a split wound where the LITO was and she appeared to have sepsis , she was started on IV Cefepime after obtaining blood cultures and wound cultures and she was admitted to the Hospital with vacular surgery consult along with ID consult 05/29: Patient has been seen by vascular surgery with plan for debridement of the Achilles area with possible amputation tomorrow. Eliquis has been discontinued. Patient has been maintained on Plavix. Blood pressure 149/85, heart rate is in the 70s, afebrile, pulse ox 94% on room air. WBC 11.6, hemoglobin 10.6, platelet count 269. Sodium 138, potassium 3.2 and will be replaced. Creatinine 0.6 BUN 6. Capillary blood glucose running between 85 and 129. Alkaline phosphatase 131. Gram stain from the wound right leg reveals moderate polymorphonuclear leukocytes, many gram-positive cocci and many gram- negative bacilli. Patient has been continued on cefepime 2 g IV piggyback every 12 hours. Patient is followed by infectious disease as well. Consult is in place for wound care center. 05/30: Patient is scheduled for debridement of the right lower extremity wound this afternoon with Dr. Mendoza. Deep cultures are to be obtained. Patient is continued on cefepime and daptomycin per Dr. Sheppard. Fevers are improving. Heart rate is in the 70s and 80s, blood pressure 128/57, pulse ox 94% on room air. WBC 10.3, hemoglobin 9.8, platelet count 234. Sodium 137, potassium 3.2, CO2 36, BUN 7 creatinine 0.67. CBG [id number]. Wound cultures are showing gram- negative bacilli. Blood culture no growth at 48 hours. Patient has been seen by the wound care team with recommendations for Santyl, saline moistened gauze dry gauze to the right groin wound. 05/31: Yesterday, patient underwent a sharp excisional debridement of the right lower extremity wound but due to the extent of the wound, poor tissue quality and lack of adequate flap potential, it has been recommended the patient undergo lhtip-oqd-dxed amputation. Cardiology has cleared the patient for surgical intervention knowing that she is at high risk but no absolute contraindications. Recommendations are to continue patient on aspirin while plavix on hold. We will plan on Lovenox once eliquis is discontinued prior to surgery. Patient continues to complain of pain to the right ankle foot area. She denies having any chest pain. No shortness of breath. She complains of feeling tired. Repeat blood work reveals WBC 9.4, hemoglobin 8.6, platelet count 236. Sodium 1 36, potassium 3.5, creatinine 0.64. Blood blood glucose this morning prior to lunch was 49. Otherwise blood sugars are running on the lower side in general 65-115. Scheduled NovoLog 10 units with meals will be discontinued and long- acting insulin was decreased. 06/03: Patient continues to be followed by vascular surgery with plan for right nuwqp-zuv-fiwl amputation on Saturday. Patient has been seen by cardiology and they've signed off. Plan is to continue aspirin 81 mg daily until patient can be resumed back on Plavix. Patient is also on eliquis transition to Lovenox until eliquis can be resumed following surgery. Antibiotics have been changed to meropenem per infectious disease. The blood glucose running between 159 and 175. 06/04: Patient states that pain to the right foot is a #6 out of 7. Plan is continued for amputation on Saturday with Dr. Mendoza. Capillary blood glucose ru nning between 168 and 227. Patient has been afebrile, heart rate 66, blood pressure 133/70. Patient has no new concerns. She continues to have minimal appetite. Family members are at bedside and all questions have been answered. 06/05: Patient remains afebrile, heart rate in the 70s to 90s, blood pressure 163/75, pulse ox 99% on room air. Patient continues to not have very much appetite. She also continues to have pain in the right foot ankle. Patient is having more anxiety related to upcoming surgery for which Xanax will be added. WBC 5, hemoglobin 10.5, platelet count 279. Sodium 133, potassium 3.9, chloride 96, CO2 27, BUN 8 and creatinine 0.62. Blood glucose running 126-155. 06/06: No new concerns from the patient. She is quite anxious in anticipation of surgery for tomorrow. She is scheduled for right suryv-nod-qvet amputation tomorrow with Dr. Mendoza. Capillary blood glucose running between 101 and 168. Patient remains afebrile, heart rate in the 70s, blood pressure 162/81, pulse ox 96% on room air. 06/07: Patient is status post right sfvqq-ljw-ldxg amputation. Patient is seen postoperatively back in her room. Her pain is currently fairly well controlled. Repeat blood work reveals hemoglobin of 8.6. Sodium 135, potassium 3.6, BUN 6 and creatinine 0.54. Blood sugar this morning was 54. Calcium 6.3. Patient has been transfused 1 unit of packed RBCs. Heart rate is 63, blood pressure 123/61 and pulse ox 99% on 3 L. Patient will be resumed back on eliquis and Plavix tomorrow. 06/10: Patient is postop day #3. Rick and Fabricio will be in to redo stump batch operator and rigid dressing today. Patient is currently on Delavan 7.54 times daily as needed for pain. She seems to be comfortable at this time. She is stating that she is not sleeping and not eating very much. She denies having any nausea or vomiting. She has had loose bowel movements possibly due to antibiotics. Questran has been added. Patient is no longer on antibiotics. No abdominal pain. She is reaching 1250 ml on incentive spirometry. She's been afebrile, heart rate 82, blood pressure 154/86, pulse ox 94% on room air. Patient is out of bed for the first time with the help of physical therapy. She is now agreeable to inpatient rehab and consult placed for evaluation. Loxitane has been increased to twice daily 60 mg. We'll 06/11: Patient is complaining of severe pain this morning. Diarrhea has resolved and C. difficile toxin came back negative. She is off IV antibiotics. Wound cultures were positive for Pseudomonas and enterococcus and Proteus. Yesterday, we added consult for inpatient rehab which we expect they will be evaluating today. Blood pressure 154/95, heart rate in the 70s. She's been afebrile, pulse ox 90% on room air. 06/12: Patient was seen yesterday by inpatient rehab for evaluation but she was quite sedated for the examination. Yesterday, Xanax was changed to when necessary but she was quite lethargic this morning and vascular has discontinued IV Dilaudid. She is crying out in pain and can be heard down the matson. She is currently on Delavan 7.5 one every 6 hours. Consult has been added for pain management. Patient remains afebrile, heart rate in the 80s, blood pressure 125/82 and pulse ox 97% on room air. Blood sugar this morning was 59 and at lunch 77. Levemir as at 28 units at bedtime which will be decreased to 10 units. Patient will be transferred to [facility] without telemetry today. Patient seen again later in the afternoon and appears to be quite fatigued. Pain seems to be controlled at this time. 06/13: Patient is very quiet today. She is repeatedly saying "I need" and not completing her sentences. She is still complaining of significant pain to the right leg. She is on Delavan 7.5 every 6 hours as needed. She did receive a dose of Xanax last evening at 8 PM. Capillary blood glucose running between 90 and 243. Yesterday, Levemir was decreased to 10 units as patient has not been eating very much and blood sugars have been low. Patient ate her percent of her breakfast this morning. There are no Blood pressure 158/86, heart rate in the 70s, pulse ox 90% on room air, afebrile. She is utilizing incentive spirometer reaching 1000 ML's. Patient has stump batch operator and rigid dressing in place to the right stump. Patient in process of being evaluated by inpatient rehab. Pain management consult was placed yesterday. Patient is followed by inpatient rehab and waiting for further information. REVIEW OF SYSTEMS Constitutional: positive for fever, No chills, no night sweats. Reports weight loss. Reports weakness, Reports fatigue no lethargy. NO daytime sleepiness. HEENT: No headache. No dizziness. Reports difficulty swallowing. No nasal drainage or congestion. No epistaxis. No sore throat. Lungs: No shortness of breath, cough, no sputum production. No wheezing. Cardiovascular: No chest pain, no lower extremity edema. No palpitations. No paroxysmal nocturnal dyspnea. No orthopnea. No lightheadedness or dizziness. No syncopal episodes. Abdominal: Reports abdominal pain. Reports nausea, no vomiting. no diarrhea. No constipation. No bloody or tarry stools. Reports loss of appetite. Genitourinary: No dysuria, increased frequency, urgency. No urinary retention. Musculoskeletal: No myalgias. positive for muscle weakness, reports balance issues, reports gait dysfunction, reports frequent falls. No back pain. No neck pain. Integumentary: Left achilles wound, right groin wound, Right 2nd, 3rd and 5th toes and right big toe amputation status post bgaup-vob-zzcm amputation Neurologic: No aphasia. No facial droop. Noted intermittent change in mentation. No head injury. No headache. No paralysis. No paresthesia. Psychiatric: Reports depression. Reports anxiety. No mood swings. Endocrine: abnormal blood sugars. positive for weight change. No excessive sweating or thirst. No cold intolerance. PHYSICAL EXAMINATION Gen: This is a 63-year-old female. She is resting in bed and appears to be in no acute distress. HEENT: Head is atraumatic, normocephalic. Pupils equal, round. Sclerae is anicteric. Mucous members of the mouth are somewhat dry. NECK: Supple. No JVD. No lymphadenopathy. No thyromegaly. LUNGS: Clear to auscultation. No wheezes or rhonchi. No intercostal retractions. 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 ABDOMEN: Soft. Bowel sounds are present. No masses. no tenderness. Large hematoma to right pelvis soft, surrounding and dependent ecchymosis. EXTREMITIES: No pedal edema. Right czond-ewl-vwpg amputation, stump batch operator and rigid dressing in place to the stump. NEUROLOGICAL: Patient is awake, alert and oriented x3. Cranial nerves 2 through 12 are grossly intact. Muscle power 4/5 in the left upper extremity, 4/5 in the right upper extremity, 3/5 in the bilateral lower extremities. ASSESSMENT AND PLAN 1. Right leg infected/failed graft with sepsis status post right lxdyz-xbc-dlin amputation. Patient is off IV antibiotics. Continue current pain management, incentive spirometry to reduce incidence of atelectasis and hospital-acquired pneumonia continue local wound care per vascular surgery. Continue Delavan for pain control. Transfer to [facility] floor. 2. Recent right common femoral to tibial vein bypass with debridement of the right exposed Achilles tendon heel second third and fifth toes of the right foot, also drainage of the right inguinal hematoma post removal of the LITO drain with a split wound in the right groin. Continue local wound care per wound Center to groin. 3. Coronary artery disease with recent stent of the RCA due to recent in-stent restenosis. Patient has had previous multiple cardiac stents to the RCA and mid LAD, obtuse marginal branch. Continue patient on a Plavix 75 mg daily, Lopresso r 25 mg twice daily, Crestor 20 mg daily. 4. Diabetes mellitus type 2 uncontrolled with hyperglycemia and now hypoglycemia as patient is not eating much. Continue NovoLog scale before meals and at bedtime. Decrease Lantus to 10 units at bedtime. Discontinue Novolog 10 units AC meals TID 5. Hyperlipidemia. Continue Atorvastatin 40 mg po daily 6. Chronic DVT and PEs. Continue patient on eliquis 5 mg twice daily. 7. Chronic anemia with recent acute blood loss anemia secondary to hematoma in the right groin/pelvis. Continue patient on ferrous sulfate 325 mg twice daily. 8. Hypertension and hypertensive cardiovascular disease, Continue lisinopril increased to 10 mg daily, Lopressor 25 mg twice daily. 9. Gastroesophageal reflux disease and GI prophylaxis. Continue Pantoprazole 40 mg daily. 10. Diabetic neuropathy. w will continue wit Gabapentin 400 mg po tid. 11. Generalized anxiety disorder, recurrent depression. Continue Cymbalta 60 mg daily, and Xanax 0.25 mg twice daily as needed. 12. Patient diagnosed with EPI at [facility]. 13. Generalized debility, weakness secondary to extensive and repeated hospitalizations and multiple medical conditions. Consult with inpatient rehab. Continue PT and OT. Full code. Impression and plan of care have been directed as dictated by the signing physician. Kerri Kevin nurse practitioner acting as scribe for signing physician. Objective - Vital Signs Vital signs: Vital Signs Temp 97.5 F L 06/13/23 08:53 Pulse 78 06/13/23 08:53 Resp 18 06/13/23 08:53 BP 158/86 06/13/23 08:53 Pulse Ox 98 06/13/23 08:53 FiO2 Intake & Output 06/12/23 06/13/23 06/13/23 18:59 06:59 18:59 Intake Total 225 237 240 Output Total 650 1450 250 Balance -425 -1213 -10 Weight 93.44 kg Intake: Oral 225 237 240 Output: Urine 650 1450 250 Other: Voiding Method Diaper Diaper Diaper External Catheter External Catheter External Catheter # Voids 1 # Bowel Movements 1 - Labs CBC & Chem 7: 06/10/23 08:07 06/11/23 07:54 Labs: Abnormal Lab Results - Last 24 Hours (Table) 06/13/23 06/13/23 06/13/23 Range/Units 04:06 06:08 11:31 POC Glucose (mg/dL) 160 H 146 H 243 H (70-110) mg/dL
--- NOTE | 2023-06-14 12:24 | P.DS ---
Providers Date of admission: 05/28/23 17:56 Expected date of discharge: 06/14/23 Attending physician: Tramaine Tejeda Consults: 05/28/23 17:47 Consult Physician Urgent Consulting Provider: Zaira Sheppard Consult Reason/Comments: Groin and leg wound, sepsis Do you want consulting provider notified?: Yes 05/31/23 07:30 Consult Physician Routine Consulting Provider: Alexis Yen Consult Reason/Comments: Cardiac clearance for AKA, recs on anticoagulation/plavix Do you want consulting provider notified?: Already Contacted 06/10/23 12:58 Consult Physician Routine Consulting Provider: William De La Torre Consult Reason/Comments: IP Rehab Do you want consulting provider notified?: Yes 06/12/23 09:33 Consult Physician Routine Consulting Provider: Rusty Bryant Consult Reason/Comments: Pain management post AKA Do you want consulting provider notified?: Yes Primary care physician: Tramaine Tejeda Hospital Course: HISTORY OF PRESENT ILLNESS This is a 63-year-old female patient of mine with history of CAD with multiple cardiac stents in mid RCA, mid LAD, obtuse marginal branch and followed by Dr. Bill closely, peripheral artery disease with previous stenting done as well has amputation of the right great toe secondary to osteomyelitis, CVA with no residual deficits, hypertension, COPD, diabetes mellitus type 2, previous multiple DVT and PE requiring chronic anticoagulation on eliquis, history of GI bleed secondary to antral gastritis, esophagitis, vitamin D deficiency, autonomic hypotension on midodrine, history of left humerus fracture. resume with patient April 02 through April 15 at which time she presented to the hospital due to right second and fifth toe ischemic change. A CT angiogram showed evidence of occlusion of the right superficial femoral artery and 2 occluded segments 1 in the mid thigh about 3 cm and another into the right popliteal artery at 13 cm length, occlusion of the right iliac artery into the common femoral artery. Patient was seen in consultation by vascular surgery. Arterial ultrasound showed lower extremity abnormal on the right with HERMINIA suggests severe atherosclerotic disease. Critical stenosis not excluded. Plan for open bypass surgery with vascular surgery was made but a cardiology consult was requested. Patient was seen by Dr. Bill and had chest pain complaint and Due to critical in-stent restenosis and subsequently underwent cardiac catheterization which revealed critical in-stent restenosis of the RCA and Dr. Skaf present performed stenting of the RCA. There was also intermediate disease in the first obtuse marginal branch of the left circumflex, intermediate disease involving the LAD and mildly elevated left sided filling pressures. Access was obtained from the right groin. Unfortunately following removal of the sheath, patient developed a significant hematoma to the right groin into the right pelvic area measuring up to 11.9 cm requiring ICU management, transfusion of packed RBCs and vasopressors for brief period along with IV fluid resuscitation. Patient was stabilized and discharged to home with home care but she returned with worsening wounds, hypotension with blood pressure of 84/57, leukocytosis of 26. She was seen by multiple consultants including wound care, infectious disease, vascular surgery. Patient underwent right common femoral to tibial vein bypass with debridement of a right exposed Achilles tendon heel, second third and fourth toes of the right foot and drainage of right inguinal hematoma with wound VAC with subsequent hematoma evacuation on 04/30. Patient was stabilized and discharged to [facility] for subacute rehab. She returned to the emergency department about few weeks back and she was diagnosed with acute pancreatitis and she was taken off of her [facility] she was discharged home because she refused to go back to [facility] and she recently underwent a skin grat to the right achilles lower leg area that was done by Umair Tejeda was Saturday before yesterday and carin was discharged home in a stable condition with a follow up last Saturday and then last and had the home care nurse coming for dressing changes and she was found to have black eschar on the back of her leg with purulent material coming out of her leg and right gron with a split wound where the LITO was and she appeared to have sepsis , she was started on IV Cefepime after obtaining blood cultures and wound cultures and she was admitted to the Hospital with vacular surgery consult along with ID consult 05/29: Patient has been seen by vascular surgery with plan for debridement of the Achilles area with possible amputation tomorrow. Eliquis has been discontinued. Patient has been maintained on Plavix. Blood pressure 149/85, heart rate is in the 70s, afebrile, pulse ox 94% on room air. WBC 11.6, hemoglobin 10.6, platelet count 269. Sodium 138, potassium 3.2 and will be replaced. Creatinine 0.6 BUN 6. Capillary blood glucose running between 85 and 129. Alkaline phosphatase 131. Gram stain from the wound right leg reveals moderate polymorphonuclear leukocytes, many gram-positive cocci and many gram- negative bacilli. Patient has been continued on cefepime 2 g IV piggyback every 12 hours. Patient is followed by infectious disease as well. Consult is in place for wound care center. 05/30: Patient is scheduled for debridement of the right lower extremity wound this afternoon with Dr. Mendoza. Deep cultures are to be obtained. Patient is continued on cefepime and daptomycin per Dr. Sheppard. Fevers are improving. Heart rate is in the 70s and 80s, blood pressure 128/57, pulse ox 94% on room air. WBC 10.3, hemoglobin 9.8, platelet count 234. Sodium 137, potassium 3.2, CO2 36, BUN 7 creatinine 0.67. CBG [id number]. Wound cultures are showing gram- negative bacilli. Blood culture no growth at 48 hours. Patient has been seen by the wound care team with recommendations for Santyl, saline moistened gauze dry gauze to the right groin wound. 05/31: Yesterday, patient underwent a sharp excisional debridement of the right lower extremity wound but due to the extent of the wound, poor tissue quality and lack of adequate flap potential, it has been recommended the patient undergo [id number] amputation. Cardiology has cleared the patient for surgical intervention knowing that she is at high risk but no absolute contraindications. Recommendations are to continue patient on aspirin while plavix on hold. We will plan on Lovenox once eliquis is discontinued prior to surgery. Patient continues to complain of pain to the right ankle foot area. She denies having any chest pain. No shortness of breath. She complains of feeling tired. Repeat blood work reveals WBC 9.4, hemoglobin 8.6, platelet count 236. Sodium 136, potassium 3.5, creatinine 0.64. Blood blood glucose this morning prior to lunch was 49. Otherwise blood sugars are running on the lower side in general 65-115. Scheduled NovoLog 10 units with meals will be discontinued and long- acting insulin was decreased. 06/03: Patient continues to be followed by vascular surgery with plan for right [id number]-rrd-[id number] amputation on Saturday. Patient has been seen by cardiology and they've signed off. Plan is to continue aspirin 81 mg daily until patient can be resumed back on Plavix. Patient is also on eliquis transition to Lovenox until eliquis can be resumed following surgery. Antibiotics have been changed to meropenem per infectious disease. The blood glucose running between 159 and 175. 06/04: Patient states that pain to the right foot is a #6 out of 7. Plan is continued for amputation on Saturday with Dr. Mendoza. Capillary blood glucose running between 168 and 227. Patient has been afebrile, heart rate 66, blood pressure 133/70. Patient has no new concerns. She continues to have minimal appetite. Family members are at bedside and all questions have been answered. 06/05: Patient remains afebrile, heart rate in the 70s to 90s, blood pressure 163/75, pulse ox 99% on room air. Patient continues to not have very much appetite. She also continues to have pain in the right foot ankle. Patient is having more anxiety related to upcoming surgery for which Xanax will be added. WBC 5, hemoglobin 10.5, platelet count 279. Sodium 133, potassium 3.9, chloride 96, CO2 27, BUN 8 and creatinine 0.62. Blood glucose running 126-155. 06/06: No new concerns from the patient. She is quite anxious in anticipation of surgery for tomorrow. She is scheduled for right gdaut-xbe-iucb amputation tomorrow with Dr. Mendoza. Capillary blood glucose running between 101 and 168. Patient remains afebrile, heart rate in the 70s, blood pressure 162/81, pulse ox 96% on room air. 06/07: Patient is status post right bgonk-uqt-gmqi amputation. Patient is seen postoperatively back in her room. Her pain is currently fairly well controlled. Repeat blood work reveals hemoglobin of 8.6. Sodium 135, potassium 3.6, BUN 6 and creatinine 0.54. Blood sugar this morning was 54. Calcium 6.3. Patient has been transfused 1 unit of packed RBCs. Heart rate is 63, blood pressure 123/61 and pulse ox 99% on 3 L. Patient will be resumed back on eliquis and Plavix tomorrow. 06/10: Patient is postop day #3. Rick and Fabricio will be in to redo stump photographic developer and printer and rigid dressing today. Patient is currently on [place] 7.54 times daily as needed for pain. She seems to be comfortable at this time. She is stating that she is not sleeping and not eating very much. She denies having any nausea or vomiting. She has had loose bowel movements possibly due to antibiotics. Questran has been added. Patient is no longer on antibiotics. No abdominal pain. She is reaching 1250 ml on incentive spirometry. She's been afebrile, heart rate 82, blood pressure 154/86, pulse ox 94% on room air. Patient is out of bed for the first time with the help of physical therapy. She is now agreeable to inpatient rehab and consult placed for evaluation. Loxitane has been increased to twice daily 60 mg. We'll 06/11: Patient is complaining of severe pain this morning. Diarrhea has resolved and C. difficile toxin came back negative. She is off IV antibiotics. Wound cultures were positive for Pseudomonas and enterococcus and Proteus. Yesterday, we added consult for inpatient rehab which we expect they will be evaluating today. Blood pressure 154/95, heart rate in the 70s. She's been afebrile, pulse ox 90% on room air. 06/12: Patient was seen yesterday by inpatient rehab for evaluation but she was quite sedated for the examination. Yesterday, Xanax was changed to when necessary but she was quite lethargic this morning and vascular has discontinued IV Dilaudid. She is crying out in pain and can be heard down the matson. She is currently on [place] 7.5 one every 6 hours. Consult has been added for pain management. Patient remains afebrile, heart rate in the 80s, blood pressure 125/82 and pulse ox 97% on room air. Blood sugar this morning was 59 and at lunch 77. Levemir as at 28 units at bedtime which will be decreased to 10 units. Patient will be transferred to [facility] without telemetry today. Patient seen again later in the afternoon and appears to be quite fatigued. Pain seems to be controlled at this time. 06/13: Patient is very quiet today. She is repeatedly saying "I need" and not completing her sentences. She is still complaining of significant pain to the right leg. She is on [place] 7.5 every 6 hours as needed. She did receive a dose of Xanax last evening at 8 PM. Capillary blood glucose running between 90 and 243. Yesterday, Levemir was decreased to 10 units as patient has not been eating very much and blood sugars have been low. Patient ate her percent of her breakfast this morning. There are no Blood pressure 158/86, heart rate in the 70s, pulse ox 90% on room air, afebrile. She is utilizing incentive spirometer reaching 1000 ML's. Patient has stump photographic developer and printer and rigid dressing in place to the right stump. Patient in process of being evaluated by inpatient rehab. Pain management consult was placed yesterday. Patient is followed by inpatient rehab and waiting for further information. 06/14: Patient has been accepted at [facility] for inpatient rehab. We are currently waiting for insurance authorization. Patient continues to have pain issues but seems to be more awake and alert today and pain may be adequately controlled. Teacher Specialist and rigid dressing to have fallen off her this morning. Nursing to replace and make sure that it is secure. Patient continues to not eat very much and blood sugars are running between 127 and 231. She is currently on Levemir 10 units at bedtime along with scale. Diarrhea has resolved. She has been afebrile, blood pressure 148/85, heart rate in the 70s and 80s, pulse ox 94-98% on room air. Patient will be discharged today once insurance authorization is obtained. DISCHARGE DIAGNOSES 1. Right leg infected/failed graft with sepsis status post right koqqv-jme-edwi amputation. 2. Recent right common femoral to tibial vein bypass with debridement of the right exposed Achilles tendon heel second third and fifth toes of the right foot, also drainage of the right inguinal hematoma post removal of the LITO drain with a split wound in the right groin. 3. Coronary artery disease with recent stent of the RCA due to recent in-stent restenosis. 4. Diabetes mellitus type 2 uncontrolled with hyperglycemia and now hyp oglycemia as patient is not eating much. 5. Hyperlipidemia. 6. Chronic DVT and PEs. 7. Chronic anemia with recent acute blood loss anemia secondary to hematoma in the right groin/pelvis. 8. Hypertension and hypertensive cardiovascular disease, 9. Gastroesophageal reflux disease 10. Diabetic neuropathy. 11. Generalized anxiety disorder, recurrent depression. 12. Patient diagnosed with EPI at [facility]. 13. Generalized debility, weakness secondary to extensive and repeated hospitalizations and multiple medical conditions. Greater than 35 minutes was utilized and coordinating patient's discharge. Impression and plan of care have been directed as dictated by the signing physician. Kerri Kevin nurse practitioner acting as scribe for signing physician. Patient Condition at Discharge: Stable Plan - Discharge Summary Discharge Rx Participant: Yes New Discharge Prescriptions: New ALPRAZolam [Xanax] 0.25 mg PO BID PRN tab PRN Reason: Anxiety lisinopriL [Zestril] 10 mg PO DAILY tab HYDROcodone/APAP 7.5-325MG [[place] 7.5-325] 1 each PO Q4-6H PRN 3 Days #18 tab PRN Reason: Pain DULoxetine HCL [Cymbalta] 60 mg PO BID cap Ipratropium-Albuterol Nebulize [Duoneb 0.5 mg-3 mg/3 ml Soln] 3 ml INHALATION RT-Q6H PRN each PRN Reason: Shortness Of Breath Or Wheezing INSULIN ASPART (NovoLOG) [NovoLOG (formulary)] 0 unit SQ ACHS each Continue Melatonin 3 mg PO HS Ergocalciferol (Vitamin D2) [Drisdol (50,000 Iu)] 1,250 mcg PO GUERRERO Clopidogrel [Plavix] 75 mg PO DAILY Dapagliflozin Propanediol [Farxiga] 10 mg PO DAILY Ferrous Sulfate [Feosol] 325 mg PO BID #60 tab Docusate [Colace] 100 mg PO DAILY Rosuvastatin [Crestor] 20 mg PO DAILY Omeprazole [PriLOSEC] 20 mg PO DAILY Nitroglycerin Sl Tabs [Nitrostat] 0.4 mg SL Q5M PRN PRN Reason: Chest Pain Metoprolol Tartrate [Lopressor] 25 mg PO BID #60 tab Potassium Chloride ER [K-Dur 10] 10 meq PO BID Gabapentin [Neurontin] 400 mg PO TID #9 cap Collagenase [Santyl Ointment] 1 applic TOPICAL DAILY each Apixaban [Eliquis] 5 mg PO BID Changed Insulin Glargine,Hum.rec.anlog [Lantus Solostar Pen] 15 units SQ HS #0 Discontinued DULoxetine HCL [Cymbalta] 60 mg PO DAILY HYDROcodone/APAP 7.5-325MG [[place] 7.5-325] 1 tab PO QID PRN #12 tab PRN Reason: Pain INSULIN LISPRO (HumaLOG) [humaLOG] See Protocol SQ AC-TID traMADol HCL 50 mg PO DAILY Cyclobenzaprine [Flexeril] 5 mg PO HS PRN PRN Reason: SLEEP/MUSCLE PAIN lisinopriL [Zestril] 5 mg PO DAILY #30 tab INSULIN LISPRO (HumaLOG) [humaLOG] 10 units SQ AC-TID Discharge Medication List Docusate [Colace] 100 mg PO DAILY 11/14/21 [History] Rosuvastatin [Crestor] 20 mg PO DAILY 01/08/23 [History] Ergocalciferol (Vitamin D2) [Drisdol (50,000 Iu)] 1,250 mcg PO GUERRERO 04/01/23 [History] Melatonin 3 mg PO HS 04/01/23 [History] Nitroglycerin Sl Tabs [Nitrostat] 0.4 mg SL Q5M PRN 04/01/23 [History] Omeprazole [PriLOSEC] 20 mg PO DAILY 04/01/23 [History] Metoprolol Tartrate [Lopressor] 25 mg PO BID #60 tab 04/15/23 [Rx] Potassium Chloride ER [K-Dur 10] 10 meq PO BID 04/22/23 [History] Gabapentin [Neurontin] 400 mg PO TID #9 cap 05/02/23 [Rx] Collagenase [Santyl Ointment] 1 applic TOPICAL DAILY each 05/18/23 [Rx] Apixaban [Eliquis] 5 mg PO BID 05/20/23 [History] Clopidogrel [Plavix] 75 mg PO DAILY 05/20/23 [History] Dapagliflozin Propanediol [Farxiga] 10 mg PO DAILY 05/20/23 [History] Ferrous Sulfate [Feosol] 325 mg PO BID #60 tab 06/10/23 [Rx] HYDROcodone/APAP 7.5-325MG [[place] 7.5-325] 1 each PO Q4-6H PRN 3 Days #18 tab 06/12/23 [Rx] ALPRAZolam [Xanax] 0.25 mg PO BID PRN tab 06/14/23 [Rx] DULoxetine HCL [Cymbalta] 60 mg PO BID cap 06/14/23 [Rx] INSULIN ASPART (NovoLOG) [NovoLOG (formulary)] 0 unit SQ ACHS each 06/14/23 [Rx] Insulin Glargine,Hum.rec.anlog [Lantus Solostar Pen] 15 units SQ HS #0 06/14/23 [Rx] Ipratropium-Albuterol Nebulize [Duoneb 0.5 mg-3 mg/3 ml Soln] 3 ml INHALATION RT-Q6H PRN each 06/14/23 [Rx] lisinopriL [Zestril] 10 mg PO DAILY tab 06/14/23 [Rx] Follow up Appointment(s)/Referral(s): Tramaine Tejeda MD [Primary Care Provider] - 1-2 days Heraclio Hughes DO [Doctor of Osteopathic Medicine] - 2 Weeks [facility], [NON-STAFF] - Activity/Diet/Wound Care/Special Instructions: Activity as tolerated per recommendations from PT/OT Stump photographic developer and printer and rigid dressing to right AKA stump Right groin dressing changes daily with Santyl, saline moistened gauze, dry gauze and secure with tape
--- NOTE | 2023-06-14 13:32 | CT ---
EXAMINATION TYPE: CT brain wo con DATE OF EXAM: 06/14/2023 COMPARISON: 03/14/2021 HISTORY: LETHARGY CT DLP: 1138.4 mGycm Automated exposure control for dose reduction was used. FINDINGS: Ventricles, basal cisterns and sulci over the convexities within normal limits for the patient's age. There is no mass effect or shift of midline structures. There is no acute intra or extra-axial hemorrhage. The posterior fossa including the brainstem, fourth ventricle and cerebellar pontine angles appear gr ossly normal. The intraorbital contents appear normal and symmetric. Visualized paranasal sinuses and mastoid air cells are well aerated. IMPRESSION: No significant abnormality seen. No interval change. IMPRESSION:
--- NOTE | 2023-06-14 15:33 | P.PN ---
Subjective Progress Note Date: 06/14/23 Principal diagnosis: Right leg wound infection Patient is a 63-year-old female with a past medical history significant for diabetes mellitus peripheral arterial disease coronary disease patient did have PAD and bypass graft with CryoVein right common thromboendarterectomy and right groin hematoma evacuation as well as right Achilles wound debridement and skin graft application patient has been sent to the ER by the home care nurse concerning for infection of the right lower extremity, patient is status post Sharp excisional debridement right lower extremity wound measuring 23 x 9 x 2.5 cm to muscle with undermining at the 12 o'clock position of 8.7 cm completed on 05/30/2023, the patient is status post right nassi-sak-wnji amputation completed on 06/07/2023 On today's evaluation that is 06/14/2023, the patient remains to be afebrile, the patient is breathing comfortably on room air , the patient denies any chest pain or any cough , patient denies nausea/vomiting diarrhea and no abdominal pain, pain to the right AK stump is currently controlled Patient white count is 2.9 as of 06/10/2023, creatinine is 0.40 as of 06/11/2023 no lab draw today, stool for C. diff is negative, cultures are currently growing Pseudomonas enterococcus and Proteus Objective - Vital Signs Vital signs: Vital Signs Temp 97.5 F L 06/14/23 08:00 Pulse 80 06/14/23 08:00 Resp 18 06/14/23 08:00 BP 148/85 06/14/23 08:00 Pulse Ox 94 L 06/14/23 08:04 FiO2 Intake & Output 06/13/23 06/14/23 06/14/23 18:59 06:59 18:59 Intake Total 702 Output Total 250 700 Balance 452 -700 Weight 93.44 kg Intake: Oral 702 Output: Urine 250 700 Other: Voiding Method Diaper Diaper Diaper External Catheter External Catheter External Catheter # Voids 1 - Exam GENERAL DESCRIPTION: Middle-aged female lying in bed in no distress RESPIRATORY SYSTEM: Unlabored breathing , clear to auscultation anteriorly HEART: S1 S2 regular rate and rhythm , ABDOMEN: Soft , no tenderness EXTREMITIES: Right AKA stump incision is clean sara intact - Labs CBC & Chem 7: 06/10/23 08:07 06/11/23 07:54 Labs: Abnormal Lab Results - Last 24 Hours (Table) 06/13/23 06/13/23 06/14/23 Range/Units 16:23 20:28 05:49 POC Glucose (mg/dL) 127 H 133 H 133 H (70-110) mg/dL 06/14/23 Range/Units 11:22 POC Glucose (mg/dL) 231 H (70-110) mg/dL Assessment and Plan (1) Cellulitis of right leg Current Visit: Yes Status: Acute Code(s): L03.115 - CELLULITIS OF RIGHT LOWER LIMB SNOMED Code(s): 63671098680008461 (2) Leg wound, right Current Visit: Yes Status: Acute Code(s): S81.801A - UNSPECIFIED OPEN WOUND, RIGHT LOWER LEG, INITIAL ENCOUNTER SNOMED Code(s): 954760283 Plan: 1patient presented to hospital with sepsis in this patient with a fever elevated white count source likely her right lower extremity infected wound and second cellulitis likely from gram-positive skin jesus however the patient recently has grown Pseudomonas from the area could be related to the same pathogen. 2patient did have a vancomycin allergy that will limit the number of antibiotics safe to use. 3patient is status post surgical debridement and deep culture, with initial culture growing Pseudomonas enterococcus and Proteus 4-patient is s/p right mucfp-hjy-eqiv amputation per vascular surgery completed on 06/07/2023 5-patient has developed significant diarrhea possible antibiotic associated, stool for C. diff is negative, patient did have improvement in her diarrhea for the patient will continue with the Questran as needed No need for any antibiotics on discharge Son at the bedside questions were answered ,Dictation was produced using [employer] dictation software. please excuse any grammatical, word or spelling errors. Time with Patient: Less than 30
[2023-06-14 16:36] LABS: Glucose,Whole Blood 125 mg/dL (70-110)
[2023-06-14 17:49] LABS: ALT 17 U/L (4-34); AST 22 U/L (14-36); African American GFR (CKD) >90 (>60 ml/min/1.73 sqM); Albumin 1.9 g/dL (3.5-5.0); Alkaline Phosphatase 101 U/L (38-126); Anion Gap 4 mmol/L; Blood Urea Nitrogen 7 mg/dL (7-17); Calcium 7.5 mg/dL (8.4-10.2); Carbon Dioxide 29 mmol/L (22-30); Chloride 104 mmol/L (98-107); Glucose 102 mg/dL (74-99); Non-African American GFR(CKD) >90 (>60 ml/min/1.73 sqM); Potassium 3.7 mmol/L (3.5-5.1); Sodium 137 mmol/L (137-145); Total Bilirubin 0.5 mg/dL (0.2-1.3); Total Protein 4.8 g/dL (6.3-8.2)
[2023-06-14 17:55] LABS: Anisocytosis Slight; Basophils % (A) 0 %; Eosinophils # (A) 0.3 k/uL (0-0.7); Eosinophils % (A) 7 %; HCT 29.4 % (34.0-46.0); HGB 9.1 gm/dL (11.4-16.0); Hypochromasia Marked; Lymphocytes # (A) 1.1 k/uL (1.0-4.8); Lymphocytes % (A) 30 %; MCH 25.9 pg (25.0-35.0); MCHC 31.1 g/dL (31.0-37.0); MCV 83.2 fL (80.0-100.0); Mean Platelet Volume 8.2; Monocytes # (A) 0.3 k/uL (0-1.0); Monocytes % (A) 9 %; Neutrophils % (A) 53 %; Platelet Count 337 k/uL (150-450); Poikilocytosis Slight; RBC 3.53 m/uL (3.80-5.40); RDW 18.1 % (11.5-15.5); WBC 3.7 k/uL (3.8-10.6)
[2023-06-14 20:17] LABS: Glucose,Whole Blood 218 mg/dL (70-110)
[2023-06-14] MEDS: INSULIN DETEMIR (LEVEMIR) 100 UNIT/ML SYR SQ SCH (20:53)
[2023-06-14] MEDS: MELATONIN 3 MG TABLET PO SCH (20:54)
[2023-06-14] MEDS: ALPRAZolam 0.25 MG TAB PO PRN (20:54)
[2023-06-15] MEDS: HYDROcodone/APAP 7.5-325MG 1 EACH TAB PO PRN ×4 (03:10→18:19)
[2023-06-15 06:13] LABS: Glucose,Whole Blood 137 mg/dL (70-110)
[2023-06-15] MEDS: INSULIN ASPART (NovoLOG) 100 UNIT/ML VIAL SQ SCH ×4 (06:13→20:50)
[2023-06-15] MEDS: DOCUSATE 100 MG CAP PO SCH (09:39)
[2023-06-15] MEDS: DULoxetine HCL 60 MG CAPSULE.DR PO SCH ×2 (09:39→20:49)
[2023-06-15] MEDS: ALPRAZolam 0.25 MG TAB PO PRN ×2 (09:39→20:50)
[2023-06-15] MEDS: APIXABAN 5 MG TAB PO SCH ×2 (09:39→20:49)
[2023-06-15] MEDS: lisinopriL 10 MG TAB PO SCH (09:39)
[2023-06-15] MEDS: GABAPENTIN 400 MG CAP PO SCH ×3 (09:39→20:49)
[2023-06-15] MEDS: CLOPIDOGREL 75 MG TAB PO SCH (09:39)
[2023-06-15] MEDS: FERROUS SULFATE 325 MG TAB PO SCH ×2 (09:39→20:49)
[2023-06-15] MEDS: CHOLESTYRAMINE (WITH SUGAR) 4 GM PACKET PO SCH ×2 (09:39→18:18)
[2023-06-15] MEDS: POTASSIUM CHLORIDE ER 10 MEQ TAB.ER.PRT PO SCH ×2 (09:39→20:49)
[2023-06-15] MEDS: METOPROLOL TARTRATE 25 MG TAB PO SCH ×2 (09:39→20:49)
[2023-06-15] MEDS: PANTOPRAZOLE 40 MG TABLET PO SCH (09:39)
--- NOTE | 2023-06-15 11:20 | P.PN ---
Subjective Progress Note Date: 06/15/23 Principal diagnosis: Right leg wound infection Patient is a 63-year-old female with a past medical history significant for diabetes mellitus peripheral arterial disease coronary disease patient did have PAD and bypass graft with CryoVein right common thromboendarterectomy and right groin hematoma evacuation as well as right Achilles wound debridement and skin graft application patient has been sent to the ER by the home care nurse concerning for infection of the right lower extremity, patient is status post Sharp excisional debridement right lower extremity wound measuring 23 x 9 x 2.5 cm to muscle with undermining at the 12 o'clock position of 8.7 cm completed on 05/30/2023, the patient is status post right [id number]-[id number] amputation completed on 06/07/2023 On today's evaluation that is 06/15/2023, the patient denies any fever or any chills, the patient is breathing comfortably on room air without any need for supplemental oxygen, the patient denies any chest pain or any cough , patient denies abdominal pain, no nausea/vomiting diarrhea , the patient pain to the right AK stump is currently controlled Patient white count of 3.7, creatinine 0.56 as of 06/14/2023, stool for C. diff is negative, cultures are currently growing Pseudomonas enterococcus and Proteus Objective - Vital Signs Vital signs: Vital Signs Temp 97.9 F 06/15/23 02:00 Pulse 81 06/15/23 02:00 Resp 19 06/15/23 02:00 BP 159/76 06/15/23 02:00 Pulse Ox 98 06/15/23 07:59 FiO2 Intake & Output 06/14/23 06/15/23 06/15/23 18:59 06:59 18:59 Intake Total 118 180 Output Total 1950 Balance 118 -1950 180 Weight 93.44 kg Intake: Oral 118 180 Output: Urine 1950 Other: Voiding Method Diaper Diaper External Catheter External Catheter - Exam GENERAL DESCRIPTION: Middle-aged female lying in bed in no distress RESPIRATORY SYSTEM: Unlabored breathing , clear to auscultation anteriorly HEART: S1 S2 regular rate and rhythm , ABDOMEN: Soft , no tenderness EXTREMITIES: Right AKA stump incision is clean sara intact - Labs CBC & Chem 7: 06/14/23 17:09 06/14/23 17:09 Labs: Abnormal Lab Results - Last 24 Hours (Table) 06/14/23 06/14/23 06/14/23 Range/Units 11:22 16:34 17:09 WBC 3.7 L (3.8-10.6) k/uL RBC 3.53 L (3.80-5.40) m/uL Hgb 9.1 L (11.4-16.0) gm/dL Hct 29.4 L (34.0-46.0) % RDW 18.1 H (11.5-15.5) % Glucose (74-99) mg/dL POC Glucose (mg/dL) 231 H 125 H (70-110) mg/dL Calcium (8.4-10.2) mg/dL Total Protein (6.3-8.2) g/dL Albumin (3.5-5.0) g/dL 06/14/23 06/14/23 06/15/23 Range/Units 17:09 20:16 06:11 WBC (3.8-10.6) k/uL RBC (3.80-5.40) m/uL Hgb (11.4-16.0) gm/dL Hct (34.0-46.0) % RDW (11.5-15.5) % Glucose 102 H (74-99) mg/dL POC Glucose (mg/dL) 218 H 137 H (70-110) mg/dL Calcium 7.5 L (8.4-10.2) mg/dL Total Protein 4.8 L (6.3-8.2) g/dL Albumin 1.9 L (3.5-5.0) g/dL Assessment and Plan (1) Cellulitis of right leg Current Visit: Yes Status: Acute Code(s): L03.115 - CELLULITIS OF RIGHT LOWER LIMB SNOMED Code(s): 56422144760436355 (2) Leg wound, right Current Visit: Yes Status: Acute Code(s): S81.801A - UNSPECIFIED OPEN WOUND, RIGHT LOWER LEG, INITIAL ENCOUNTER SNOMED Code(s): 259279605 (3) Sepsis Current Visit: No Status: Acute Code(s): A41.9 - SEPSIS, UNSPECIFIED ORGANISM SNOMED Code(s): 65893524 Plan: 1patient presented to hospital with sepsis in this patient with a fever elevated white count source likely her right lower extremity infected wound and second cellulitis likely from gram-positive skin jesus however the patient culture growing Pseudomonas enterococcus and Proteus, patient is status post right iaphz-amn-yikb amputation on 06/07/2023, patient has completed her IV antibiotic therapy and is currently being monitored closely off antibiotic therapy Dictation was produced using [employer] dictation software. please excuse any grammatical, word or spelling errors. Time with Patient: Less than 30
[2023-06-15 11:32] LABS: Glucose,Whole Blood 257 mg/dL (70-110)
--- NOTE | 2023-06-15 11:42 | P.PN ---
Subjective Progress Note Date: 06/14/23 HISTORY OF PRESENT ILLNESS This is a 63-year-old female patient of mine with history of CAD with multiple cardiac stents in mid RCA, mid LAD, obtuse marginal branch and followed by Dr. Bill closely, peripheral artery disease with previous stenting done as well has amputation of the right great toe secondary to osteomyelitis, CVA with no residual deficits, hypertension, COPD, diabetes mellitus type 2, previous multiple DVT and PE requiring chronic anticoagulation on eliquis, history of GI bleed secondary to antral gastritis, esophagitis, vitamin D deficiency, autono margot hypotension on midodrine, history of left humerus fracture. resume with patient April 02 through April 15 at which time she presented to the hospital due to right second and fifth toe ischemic change. A CT angiogram showed evidence of occlusion of the right superficial femoral artery and 2 occluded segments 1 in the mid thigh about 3 cm and another into the right popliteal artery at 13 cm length, occlusion of the right iliac artery into the common femoral artery. Patient was seen in consultation by vascular surgery. Arterial ultrasound showed lower extremity abnormal on the right with HERMINIA suggests severe atherosclerotic disease. Critical stenosis not excluded. Plan for open bypass surgery with vascular surgery was made but a cardiology consult was requested. Patient was seen by Dr. Bill and had chest pain complaint and Due to critical in-stent restenosis and subsequently underwent cardiac catheterization which revealed critical in-stent restenosis of the RCA and Dr. Bill present performed stenting of the RCA. There was also intermediate disease in the first obtuse marginal branch of the left circumflex, intermediate disease involving the LAD and mildly elevated left sided filling pressures. Access was obtained from the right groin. Unfortunately following removal of the sheath, patient developed a significant hematoma to the right groin into the right pelvic area measuring up to 11.9 cm requiring ICU management, transfusion of packed RBCs and vasopressors for brief period along with IV fluid resuscitation. Patient was stabilized and discharged to home with home care but she returned with worsening wounds, hypotension with blood pressure of 84/57, leukocytosis of 26. She was seen by multiple consultants including wound care, infectious disease, vascular surgery. Patient underwent right common femoral to tibial vein bypass with debridement of a right exposed Achilles tendon heel, second third and fourth toes of the right foot and drainage of right inguinal hematoma with wound VAC with subsequent hematoma evacuation on 04/30. Patient was stabili zed and discharged to [facility] for subacute rehab. She returned to the emergency department about few weeks back and she was diagnosed with acute pancreatitis and she was taken off of her gaand she was discharged home because she refused to go back to [facility] and she recently underwent a skin grat to the right achilles lower leg area that was done by Umair Tejeda was Saturday before yesterday and carin was discharged home in a stable condition with a follow up last Saturday and then last and had the home care nurse coming for dressing changes and she was found to have black eschar on the back of her leg with purulent material coming out of her leg and right gron with a split wound where the LITO was and she appeared to have sepsis , she was started on IV Cefepime after obtaining blood cultures and wound cultures and she was admitted to the Hospital with vacular surgery consult along with ID consult 05/29: Patient has been seen by vascular surgery with plan for debridement of the Achilles area with possible amputation tomorrow. Eliquis has been discontinued. Patient has been maintained on Plavix. Blood pressure 149/85, heart rate is in the 70s, afebrile, pulse ox 94% on room air. WBC 11.6, hemoglobin 10.6, platelet count 269. Sodium 138, potassium 3.2 and will be replaced. Creatinine 0.6 BUN 6. Capillary blood glucose running between 85 and 129. Alkaline phosphatase 131. Gram stain from the wound right leg reveals moderate polymorphonuclear leukocytes, many gram-positive cocci and many gram- negative bacilli. Patient has been continued on cefepime 2 g IV piggyback every 12 hours. Patient is followed by infectious disease as well. Consult is in place for wound care center. 05/30: Patient is scheduled for debridement of the right lower extremity wound this afternoon with Dr. Mendoza. Deep cultures are to be obtained. Patient is continued on cefepime and daptomycin per Dr. Sheppard. Fevers are improving. Heart rate is in the 70s and 80s, blood pressure 128/57, pulse ox 94% on room air. WBC 10.3, hemoglobin 9.8, platelet count 234. Sodium 137, potassium 3.2, CO2 36, BUN 7 creatinine 0.67. CBG [id number]. Wound cultures are showing gram- negative bacilli. Blood culture no growth at 48 hours. Patient has been seen by the wound care team with recommendations for Santyl, saline moistened gauze dry gauze to the right groin wound. 05/31: Yesterday, patient underwent a sharp excisional debridement of the right lower extremity wound but due to the extent of the wound, poor tissue quality and lack of adequate flap potential, it has been recommended the patient undergo mnbjo-mco-arkb amputation. Cardiology has cleared the patient for surgical intervention knowing that she is at high risk but no absolute contraindications. Recommendations are to continue patient on aspirin while plavix on hold. We will plan on Lovenox once eliquis is discontinued prior to surgery. Patient continues to complain of pain to the right ankle foot area. She denies having any chest pain. No shortness of breath. She complains of feeling tired. Repeat blood work reveals WBC 9.4, hemoglobin 8.6, platelet count 236. Sodium 1 36, potassium 3.5, creatinine 0.64. Blood blood glucose this morning prior to lunch was 49. Otherwise blood sugars are running on the lower side in general 65-115. Scheduled NovoLog 10 units with meals will be discontinued and long- acting insulin was decreased. 06/03: Patient continues to be followed by vascular surgery with plan for right jypqx-stz-kuwl amputation on Saturday. Patient has been seen by cardiology and they've signed off. Plan is to continue aspirin 81 mg daily until patient can be resumed back on Plavix. Patient is also on eliquis transition to Lovenox until eliquis can be resumed following surgery. Antibiotics have been changed to meropenem per infectious disease. The blood glucose running between 159 and 175. 06/04: Patient states that pain to the right foot is a #6 out of 7. Plan is continued for amputation on Saturday with Dr. Mendoza. Capillary blood glucose ru nning between 168 and 227. Patient has been afebrile, heart rate 66, blood pressure 133/70. Patient has no new concerns. She continues to have minimal appetite. Family members are at bedside and all questions have been answered. 06/05: Patient remains afebrile, heart rate in the 70s to 90s, blood pressure 163/75, pulse ox 99% on room air. Patient continues to not have very much appetite. She also continues to have pain in the right foot ankle. Patient is having more anxiety related to upcoming surgery for which Xanax will be added. WBC 5, hemoglobin 10.5, platelet count 279. Sodium 133, potassium 3.9, chloride 96, CO2 27, BUN 8 and creatinine 0.62. Blood glucose running 126-155. 06/06: No new concerns from the patient. She is quite anxious in anticipation of surgery for tomorrow. She is scheduled for right hauyk-tuu-pqzd amputation tomorrow with Dr. Mendoza. Capillary blood glucose running between 101 and 168. Patient remains afebrile, heart rate in the 70s, blood pressure 162/81, pulse ox 96% on room air. 06/07: Patient is status post right xhzmw-lny-pqxk amputation. Patient is seen postoperatively back in her room. Her pain is currently fairly well controlled. Repeat blood work reveals hemoglobin of 8.6. Sodium 135, potassium 3.6, BUN 6 and creatinine 0.54. Blood sugar this morning was 54. Calcium 6.3. Patient has been transfused 1 unit of packed RBCs. Heart rate is 63, blood pressure 123/61 and pulse ox 99% on 3 L. Patient will be resumed back on eliquis and Plavix tomorrow. 06/10: Patient is postop day #3. Rick and Fabricio will be in to redo stump bookbinder apprentice and rigid dressing today. Patient is currently on Wayland 7.54 times daily as needed for pain. She seems to be comfortable at this time. She is stating that she is not sleeping and not eating very much. She denies having any nausea or vomiting. She has had loose bowel movements possibly due to antibiotics. Questran has been added. Patient is no longer on antibiotics. No abdominal pain. She is reaching 1250 ml on incentive spirometry. She's been afebrile, heart rate 82, blood pressure 154/86, pulse ox 94% on room air. Patient is out of bed for the first time with the help of physical therapy. She is now agreeable to inpatient rehab and consult placed for evaluation. Loxitane has been increased to twice daily 60 mg. We'll 06/11: Patient is complaining of severe pain this morning. Diarrhea has resolved and C. difficile toxin came back negative. She is off IV antibiotics. Wound cultures were positive for Pseudomonas and enterococcus and Proteus. Yesterday, we added consult for inpatient rehab which we expect they will be evaluating today. Blood pressure 154/95, heart rate in the 70s. She's been afebrile, pulse ox 90% on room air. 06/12: Patient was seen yesterday by inpatient rehab for evaluation but she was quite sedated for the examination. Yesterday, Xanax was changed to when necessary but she was quite lethargic this morning and vascular has discontinued IV Dilaudid. She is crying out in pain and can be heard down the matson. She is currently on Wayland 7.5 one every 6 hours. Consult has been added for pain management. Patient remains afebrile, heart rate in the 80s, blood pressure 125/82 and pulse ox 97% on room air. Blood sugar this morning was 59 and at lunch 77. Levemir as at 28 units at bedtime which will be decreased to 10 units. Patient will be transferred to [facility] without telemetry today. Patient seen again later in the afternoon and appears to be quite fatigued. Pain seems to be controlled at this time. 06/13: Patient is very quiet today. She is repeatedly saying "I need" and not completing her sentences. She is still complaining of significant pain to the right leg. She is on Wayland 7.5 every 6 hours as needed. She did receive a dose of Xanax last evening at 8 PM. Capillary blood glucose running between 90 and 243. Yesterday, Levemir was decreased to 10 units as patient has not been eating very much and blood sugars have been low. Patient ate her percent of her breakfast this morning. There are no Blood pressure 158/86, heart rate in the 70s, pulse ox 90% on room air, afebrile. She is utilizing incentive spirometer reaching 1000 ML's. Patient has stump bookbinder apprentice and rigid dressing in place to the right stump. Patient in process of being evaluated by inpatient rehab. Pain management consult was placed yesterday. Patient is followed by inpatient rehab and waiting for further information. 06/14: Patient is lying down in bed continues to be very weak and she will require lots of PT, mood is better not as weepy since we have increased Duloxetin to 60 mg po bid, we will continue with curren treatment plan no need for more antibiotics as per ID and we are awaiting insurance Authorization for her to go to [facility] for inpatient rehabilitation. REVIEW OF SYSTEMS Constitutional: positive for fever, No chills, no night sweats. Reports weight loss. Reports weakness, Reports fatigue no lethargy. NO daytime sleepiness. HEENT: No headache. No dizziness. Reports difficulty swallowing. No nasal drainage or congestion. No epistaxis. No sore throat. Lungs: No shortness of breath, cough, no sputum production. No wheezing. Cardiovascular: No chest pain, no lower extremity edema. No palpitations. No paroxysmal nocturnal dyspnea. No orthopnea. No lightheadedness or dizziness. No syncopal episodes. Abdominal: Reports no abdominal pain. Reports nausea, no vomiting. no diarrhea. No constipation. No bloody or tarry stools. Reports loss of appetite. Genitourinary: No dysuria, increased frequency, urgency. No urinary retention. Musculoskeletal: No myalgias. positive for muscle weakness, reports balance issues, reports gait dysfunction, reports frequent falls. No back pain. No neck pain. Integumentary: S/P Right AKA Neurologic: No aphasia. No facial droop. Noted intermittent change in mentation. No head injury. No headache. No paralysis. No paresthesia. Psychiatric: Reports depression. Reports anxiety. positive for mood swings. Endocrine: abnormal blood sugars. positive for weight change. No excessive sweating or thirst. No cold intolerance. PHYSICAL EXAMINATION Gen: This is a 63-year-old female. She is resting in bed and appears to be in no acute distress. HEENT: Head is atraumatic, normocephalic. Pupils equal, round. Sclerae is anicteric. Mucous members of the mouth are somewhat dry. NECK: Supple. No JVD. No lymphadenopathy. No thyromegaly. LUNGS: Decrease breath sounds at the bases with few ronchi, no expiratory wheezes, no chest wall tenderness or intercostal retraction. 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 ABDOMEN: Soft. Bowel sounds are present. No masses. no tenderness, right groin dressing. EXTREMITIES: No pedal edema. Right nrztc-bzx-jtqh amputation, stump bookbinder apprentice and rigid dressing in place to the stump. NEUROLOGICAL: Patient is awake, alert and oriented x3. Cranial nerves 2 through 12 are grossly intact. Muscle power 4/5 in the left upper extremity, 4/5 in the right upper extremity, 3/5 in the bilateral lower extremities. ASSESSMENT AND PLAN 1. Right leg infected/failed graft with sepsis status post initial debriedement then right udmpw-ukm-esnd amputation. Patient is off IV antibiotics. Continue current pain management, incentive spirometry to reduce incidence of atelectasis and hospital-acquired pneumonia continue local wound care per vascular surgery. Continue Wayland for pain control. Transfer to [facility] with Auth is available. 2. Recent right common femoral to tibial vein bypass with debridement of the right exposed Achilles tendon heel second third and fifth toes of the right foot, also drainage of the right inguinal hematoma post removal of the LITO drain with a split wound in the right groin. Continue local wound care per wound Center to groin. 3. Coronary artery disease with recent stent of the RCA due to recent in-stent restenosis. Patient has had previous multiple cardiac stents to the RCA and mid LAD, obtuse marginal branch. Continue patient on a Plavix 75 mg daily, Lopressor 25 mg twice daily, continue with Atorvastatin 80mg po daily 4. Diabetes mellitus type 2 uncontrolled with hyperglycemia and now hypoglycemia as patient is not eating much. Continue NovoLog scale before meals and at bedtime. Decrease Lantus to 10 units at bedtime. Discontinue Novolog 10 units AC meals TID 5. Hyperlipidemia. Continue Atorvastatin 80 mg po daily 6. Chronic DVT and PEs. Continue patient on eliquis 5 mg twice daily. 7. Chronic anemia with recent acute blood loss anemia secondary to hematoma in the right groin/pelvis. Continue patient on ferrous sulfate 325 mg twice daily. 8. Hypertension and hypertensive cardiovascular disease, Continue lisinopril increased to 10 mg daily, Lopressor 25 mg twice daily. 9. Gastroesophageal reflux disease and GI prophylaxis. Continue Pantoprazole 40 mg daily. 10. Diabetic neuropathy. w will continue wit Gabapentin 400 mg po tid. 11. Generalized anxiety disorder, recurrent depression. Continue Cymbalta 60 mg bid, and Xanax 0.25 mg twice daily as needed. 12. Patient diagnosed with EPI at [facility], [facility]. 13. Generalized debility, weakness secondary to extensive and repeated hospitalizations and multiple medical conditions. Consult with inpatient rehab. Continue PT and OT. 14. Full code. 15. transfer to inpatient Rehab when Auth is available Objective - Vital Signs Vital signs: Vital Signs Temp 97.9 F 11/11/23 02:00 Pulse 81 06/15/23 02:00 Resp 19 06/15/23 02:00 BP 159/76 06/15/23 02:00 Pulse Ox 98 06/15/23 07:59 FiO2 Intake & Output 06/14/23 06/15/23 06/15/23 18:59 06:59 18:59 Intake Total 118 180 Output Total 1950 Balance 118 -1950 180 Weight 93.44 kg Intake: Oral 118 180 Output: Urine 1950 Other: Voiding Method Diaper Diaper External Catheter External Catheter - Labs CBC & Chem 7: 06/14/23 17:09 06/14/23 17:09 Labs: Abnormal Lab Results - Last 24 Hours (Table) 06/14/23 06/14/23 06/14/23 Range/Units 16:34 17:09 17:09 WBC 3.7 L (3.8-10.6) k/uL RBC 3.53 L (3.80-5.40) m/uL Hgb 9.1 L (11.4-16.0) gm/dL Hct 29.4 L (34.0-46.0) % RDW 18.1 H (11.5-15.5) % Glucose 102 H (74-99) mg/dL POC Glucose (mg/dL) 125 H (70-110) mg/dL Calcium 7.5 L (8.4-10.2) mg/dL Total Protein 4.8 L (6.3-8.2) g/dL Albumin 1.9 L (3.5-5.0) g/dL 06/14/23 06/15/23 06/15/23 Range/Units 20:16 06:11 11:30 WBC (3.8-10.6) k/uL RBC (3.80-5.40) m/uL Hgb (11.4-16.0) gm/dL Hct (34.0-46.0) % RDW (11.5-15.5) % Glucose (74-99) mg/dL POC Glucose (mg/dL) 218 H 137 H 257 H (70-110) mg/dL Calcium (8.4-10.2) mg/dL Total Protein (6.3-8.2) g/dL Albumin (3.5-5.0) g/dL
[2023-06-15] MEDS: ATORVASTATIN 80 MG TAB PO SCH (12:43)
[2023-06-15 17:35] LABS: Glucose,Whole Blood 106 mg/dL (70-110)
[2023-06-15 20:19] LABS: Glucose,Whole Blood 196 mg/dL (70-110)
[2023-06-15] MEDS: MELATONIN 3 MG TABLET PO SCH (20:49)
[2023-06-15] MEDS: INSULIN DETEMIR (LEVEMIR) 100 UNIT/ML SYR SQ SCH (20:49)
[2023-06-16] MEDS: LACTATED RINGERS 1,000 ML IV SCH (00:25)
[2023-06-16] MEDS: HYDROcodone/APAP 7.5-325MG 1 EACH TAB PO PRN ×4 (00:48→17:46)
[2023-06-16 07:28] LABS: Glucose,Whole Blood 178 mg/dL (70-110)
[2023-06-16] MEDS: ALPRAZolam 0.25 MG TAB PO PRN (07:29)
[2023-06-16] MEDS: PANTOPRAZOLE 40 MG TABLET PO SCH (07:29)
[2023-06-16] MEDS: ATORVASTATIN 80 MG TAB PO SCH (07:29)
[2023-06-16] MEDS: GABAPENTIN 400 MG CAP PO SCH ×3 (07:29→20:38)
[2023-06-16] MEDS: DULoxetine HCL 60 MG CAPSULE.DR PO SCH ×2 (07:29→20:38)
[2023-06-16] MEDS: APIXABAN 5 MG TAB PO SCH ×2 (07:29→20:37)
[2023-06-16] MEDS: DOCUSATE 100 MG CAP PO SCH (07:30)
[2023-06-16] MEDS: METOPROLOL TARTRATE 25 MG TAB PO SCH ×2 (07:30→20:38)
[2023-06-16] MEDS: lisinopriL 10 MG TAB PO SCH (07:30)
[2023-06-16] MEDS: FERROUS SULFATE 325 MG TAB PO SCH ×2 (07:30→20:37)
[2023-06-16] MEDS: CHOLESTYRAMINE (WITH SUGAR) 4 GM PACKET PO SCH ×2 (07:30→17:46)
[2023-06-16] MEDS: POTASSIUM CHLORIDE ER 10 MEQ TAB.ER.PRT PO SCH ×2 (07:30→20:38)
[2023-06-16] MEDS: CLOPIDOGREL 75 MG TAB PO SCH (07:30)
--- NOTE | 2023-06-16 08:27 | P.PN ---
Subjective Progress Note Date: 06/15/23 HISTORY OF PRESENT ILLNESS This is a 63-year-old female patient of mine with history of CAD with multiple cardiac stents in mid RCA, mid LAD, obtuse marginal branch and followed by Dr. Bill closely, peripheral artery disease with previous stenting done as well has amputation of the right great toe secondary to osteomyelitis, CVA with no residual deficits, hypertension, COPD, diabetes mellitus type 2, previous multiple DVT and PE requiring chronic anticoagulation on eliquis, history of GI bleed secondary to antral gastritis, esophagitis, vitamin D deficiency, autono margot hypotension on midodrine, history of left humerus fracture. resume with patient April 02 through April 15 at which time she presented to the hospital due to right second and fifth toe ischemic change. A CT angiogram showed evidence of occlusion of the right superficial femoral artery and 2 occluded segments 1 in the mid thigh about 3 cm and another into the right popliteal artery at 13 cm length, occlusion of the right iliac artery into the common femoral artery. Patient was seen in consultation by vascular surgery. Arterial ultrasound showed lower extremity abnormal on the right with HERMINIA suggests severe atherosclerotic disease. Critical stenosis not excluded. Plan for open bypass surgery with vascular surgery was made but a cardiology consult was requested. Patient was seen by Dr. Bill and had chest pain complaint and Due to critical in-stent restenosis and subsequently underwent cardiac catheterization which revealed critical in-stent restenosis of the RCA and Dr. Bill present performed stenting of the RCA. There was also intermediate disease in the first obtuse marginal branch of the left circumflex, intermediate disease involving the LAD and mildly elevated left sided filling pressures. Access was obtained from the right groin. Unfortunately following removal of the sheath, patient developed a significant hematoma to the right groin into the right pelvic area measuring up to 11.9 cm requiring ICU management, transfusion of packed RBCs and vasopressors for brief period along with IV fluid resuscitation. Patient was stabilized and discharged to home with home care but she returned with worsening wounds, hypotension with blood pressure of 84/57, leukocytosis of 26. She was seen by multiple consultants including wound care, infectious disease, vascular surgery. Patient underwent right common femoral to tibial vein bypass with debridement of a right exposed Achilles tendon heel, second third and fourth toes of the right foot and drainage of right inguinal hematoma with wound VAC with subsequent hematoma evacuation on 04/30. Patient was stabili zed and discharged to [facility] for subacute rehab. She returned to the emergency department about few weeks back and she was diagnosed with acute pancreatitis and she was taken off of her gaand she was discharged home because she refused to go back to [facility] and she recently underwent a skin grat to the right achilles lower leg area that was done by Umair Tejeda was Saturday before yesterday and carin was discharged home in a stable condition with a follow up last Saturday and then last and had the home care nurse coming for dressing changes and she was found to have black eschar on the back of her leg with purulent material coming out of her leg and right gron with a split wound where the LITO was and she appeared to have sepsis , she was started on IV Cefepime after obtaining blood cultures and wound cultures and she was admitted to the Hospital with vacular surgery consult along with ID consult 05/29: Patient has been seen by vascular surgery with plan for debridement of the Achilles area with possible amputation tomorrow. Eliquis has been discontinued. Patient has been maintained on Plavix. Blood pressure 149/85, heart rate is in the 70s, afebrile, pulse ox 94% on room air. WBC 11.6, hemoglobin 10.6, platelet count 269. Sodium 138, potassium 3.2 and will be replaced. Creatinine 0.6 BUN 6. Capillary blood glucose running between 85 and 129. Alkaline phosphatase 131. Gram stain from the wound right leg reveals moderate polymorphonuclear leukocytes, many gram-positive cocci and many gram- negative bacilli. Patient has been continued on cefepime 2 g IV piggyback every 12 hours. Patient is followed by infectious disease as well. Consult is in place for wound care center. 05/30: Patient is scheduled for debridement of the right lower extremity wound this afternoon with Dr. Mendoza. Deep cultures are to be obtained. Patient is continued on cefepime and daptomycin per Dr. Sheppard. Fevers are improving. Heart rate is in the 70s and 80s, blood pressure 128/57, pulse ox 94% on room air. WBC 10.3, hemoglobin 9.8, platelet count 234. Sodium 137, potassium 3.2, CO2 36, BUN 7 creatinine 0.67. CBG [id number]. Wound cultures are showing gram- negative bacilli. Blood culture no growth at 48 hours. Patient has been seen by the wound care team with recommendations for Santyl, saline moistened gauze dry gauze to the right groin wound. 05/31: Yesterday, patient underwent a sharp excisional debridement of the right lower extremity wound but due to the extent of the wound, poor tissue quality and lack of adequate flap potential, it has been recommended the patient undergo jwydl-pfv-zkop amputation. Cardiology has cleared the patient for surgical intervention knowing that she is at high risk but no absolute contraindications. Recommendations are to continue patient on aspirin while plavix on hold. We will plan on Lovenox once eliquis is discontinued prior to surgery. Patient continues to complain of pain to the right ankle foot area. She denies having any chest pain. No shortness of breath. She complains of feeling tired. Repeat blood work reveals WBC 9.4, hemoglobin 8.6, platelet count 236. Sodium 1 36, potassium 3.5, creatinine 0.64. Blood blood glucose this morning prior to lunch was 49. Otherwise blood sugars are running on the lower side in general 65-115. Scheduled NovoLog 10 units with meals will be discontinued and long- acting insulin was decreased. 06/03: Patient continues to be followed by vascular surgery with plan for right pujsj-qzl-tswj amputation on Saturday. Patient has been seen by cardiology and they've signed off. Plan is to continue aspirin 81 mg daily until patient can be resumed back on Plavix. Patient is also on eliquis transition to Lovenox until eliquis can be resumed following surgery. Antibiotics have been changed to meropenem per infectious disease. The blood glucose running between 159 and 175. 06/04: Patient states that pain to the right foot is a #6 out of 7. Plan is continued for amputation on Saturday with Dr. Mendoza. Capillary blood glucose ru nning between 168 and 227. Patient has been afebrile, heart rate 66, blood pressure 133/70. Patient has no new concerns. She continues to have minimal appetite. Family members are at bedside and all questions have been answered. 06/05: Patient remains afebrile, heart rate in the 70s to 90s, blood pressure 163/75, pulse ox 99% on room air. Patient continues to not have very much appetite. She also continues to have pain in the right foot ankle. Patient is having more anxiety related to upcoming surgery for which Xanax will be added. WBC 5, hemoglobin 10.5, platelet count 279. Sodium 133, potassium 3.9, chloride 96, CO2 27, BUN 8 and creatinine 0.62. Blood glucose running 126-155. 06/06: No new concerns from the patient. She is quite anxious in anticipation of surgery for tomorrow. She is scheduled for right waqrp-wxo-afuu amputation tomorrow with Dr. Mendoza. Capillary blood glucose running between 101 and 168. Patient remains afebrile, heart rate in the 70s, blood pressure 162/81, pulse ox 96% on room air. 06/07: Patient is status post right lqbiy-biy-cece amputation. Patient is seen postoperatively back in her room. Her pain is currently fairly well controlled. Repeat blood work reveals hemoglobin of 8.6. Sodium 135, potassium 3.6, BUN 6 and creatinine 0.54. Blood sugar this morning was 54. Calcium 6.3. Patient has been transfused 1 unit of packed RBCs. Heart rate is 63, blood pressure 123/61 and pulse ox 99% on 3 L. Patient will be resumed back on eliquis and Plavix tomorrow. 06/10: Patient is postop day #3. Rick and Fabricio will be in to redo stump access services representative and rigid dressing today. Patient is currently on Ebervale 7.54 times daily as needed for pain. She seems to be comfortable at this time. She is stating that she is not sleeping and not eating very much. She denies having any nausea or vomiting. She has had loose bowel movements possibly due to antibiotics. Questran has been added. Patient is no longer on antibiotics. No abdominal pain. She is reaching 1250 ml on incentive spirometry. She's been afebrile, heart rate 82, blood pressure 154/86, pulse ox 94% on room air. Patient is out of bed for the first time with the help of physical therapy. She is now agreeable to inpatient rehab and consult placed for evaluation. Loxitane has been increased to twice daily 60 mg. We'll 06/11: Patient is complaining of severe pain this morning. Diarrhea has resolved and C. difficile toxin came back negative. She is off IV antibiotics. Wound cultures were positive for Pseudomonas and enterococcus and Proteus. Yesterday, we added consult for inpatient rehab which we expect they will be evaluating today. Blood pressure 154/95, heart rate in the 70s. She's been afebrile, pulse ox 90% on room air. 06/12: Patient was seen yesterday by inpatient rehab for evaluation but she was quite sedated for the examination. Yesterday, Xanax was changed to when necessary but she was quite lethargic this morning and vascular has discontinued IV Dilaudid. She is crying out in pain and can be heard down the matson. She is currently on Ebervale 7.5 one every 6 hours. Consult has been added for pain management. Patient remains afebrile, heart rate in the 80s, blood pressure 125/82 and pulse ox 97% on room air. Blood sugar this morning was 59 and at lunch 77. Levemir as at 28 units at bedtime which will be decreased to 10 units. Patient will be transferred to [facility] without telemetry today. Patient seen again later in the afternoon and appears to be quite fatigued. Pain seems to be controlled at this time. 06/13: Patient is very quiet today. She is repeatedly saying "I need" and not completing her sentences. She is still complaining of significant pain to the right leg. She is on Ebervale 7.5 every 6 hours as needed. She did receive a dose of Xanax last evening at 8 PM. Capillary blood glucose running between 90 and 243. Yesterday, Levemir was decreased to 10 units as patient has not been eating very much and blood sugars have been low. Patient ate her percent of her breakfast this morning. There are no Blood pressure 158/86, heart rate in the 70s, pulse ox 90% on room air, afebrile. She is utilizing incentive spirometer reaching 1000 ML's. Patient has stump access services representative and rigid dressing in place to the right stump. Patient in process of being evaluated by inpatient rehab. Pain management consult was placed yesterday. Patient is followed by inpatient rehab and waiting for further information. 06/14: Patient is lying down in bed continues to be very weak and she will require lots of PT, mood is better not as weepy since we have increased Duloxetin to 60 mg po bid, we will continue with curren treatment plan no need for more antibiotics as per ID and we are awaiting insurance Authorization for her to go to [facility] for inpatient rehabilitation. 06/15: Patient is lying down in bed her pain is controlled, no more diarrhea, off ABX and she was started on Questran per ID , awaiting the final Authorization by her Insurance to be moved to [facility] for Inpatient rehabilitation, appears more motivated and she is in a better spirit, labs reviewed so is her BGM REVIEW OF SYSTEMS Constitutional: positive for fever, No chills, no night sweats. Reports weight loss. Reports weakness, Reports fatigue no lethargy. NO daytime sleepiness. HEENT: No headache. No dizziness. Reports difficulty swallowing. No nasal drainage or congestion. No epistaxis. No sore throat. Lungs: No shortness of breath, cough, no sputum production. No wheezing. Cardiovascular: No chest pain, no lower extremity edema. No palpitations. No paroxysmal nocturnal dyspnea. No orthopnea. No lightheadedness or dizziness. No syncopal episodes. Abdominal: Reports no abdominal pain. Reports nausea, no vomiting. no diarr hea. No constipation. No bloody or tarry stools. Reports loss of appetite. Genitourinary: No dysuria, increased frequency, urgency. No urinary retention. Musculoskeletal: No myalgias. positive for muscle weakness, reports balance issues, reports gait dysfunction, reports frequent falls. No back pain. No neck pain. Integumentary: S/P Right AKA Neurologic: No aphasia. No facial droop. Noted intermittent change in mentation. No head injury. No headache. No paralysis. No paresthesia. Psychiatric: Reports depression. Reports anxiety. positive for mood swings. Endocrine: abnormal blood sugars. positive for weight change. No excessive sweating or thirst. No cold intolerance. PHYSICAL EXAMINATION Gen: This is a 63-year-old female. She is resting in bed and appears to be in no acute distress. HEENT: Head is atraumatic, normocephalic. Pupils equal, round. Sclerae is anicteric. Mucous members of the mouth are somewhat dry. NECK: Supple. No JVD. No lymphadenopathy. No thyromegaly. LUNGS: Decrease breath sounds at the bases with few ronchi, no expiratory wheezes, no chest wall tenderness or intercostal retraction. 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 ABDOMEN: Soft. Bowel sounds are present. No masses. no tenderness, right groin dressing. EXTREMITIES: No pedal edema. Right bzxhu-hai-hwla amputation, stump access services representative and rigid dressing in place to the stump. NEUROLOGICAL: Patient is awake, alert and oriented x3. Cranial nerves 2 through 12 are grossly intact. Muscle power 4/5 in the left upper extremity, 4/5 in the right upper extremity, 3/5 in the bilateral lower extremities. ASSESSMENT AND PLAN 1. Right leg infected/failed graft with sepsis status post initial debriedement then right kvrou-goj-wjgs amputation. Patient is off IV antibiotics. Continue current pain management, incentive spirometry to reduce incidence of atelectasis and hospital-acquired pneumonia continue local wound care per vascular surgery. Continue Ebervale for pain control. Transfer to [facility] with Auth is available. 2. Recent right common femoral to tibial vein bypass with debridement of the right exposed Achilles tendon heel second third and fifth toes of the right foot, also drainage of the right inguinal hematoma post removal of the LITO drain with a split wound in the right groin. Continue local wound care per wound Center to groin. 3. Coronary artery disease with recent stent of the RCA due to recent in-stent restenosis. Patient has had previous multiple cardiac stents to the RCA and mid LAD, obtuse marginal branch. Continue patient on a Plavix 75 mg daily, Lopressor 25 mg twice daily, continue with Atorvastatin 80mg po daily 4. Diabetes mellitus type 2 uncontrolled with hyperglycemia and now hypoglycemia as patient is not eating much. Continue NovoLog scale before meals and at bedtime. Decrease Lantus to 10 units at bedtime. Discontinue Novolog 10 units AC meals TID 5. Hyperlipidemia. Continue Atorvastatin 80 mg po daily 6. Chronic DVT and PEs. Continue patient on eliquis 5 mg twice daily. 7. Chronic anemia with recent acute blood loss anemia secondary to hematoma in the right groin/pelvis. Continue patient on ferrous sulfate 325 mg twice daily. 8. Hypertension and hypertensive cardiovascular disease, Continue lisinopril increased to 10 mg daily, Lopressor 25 mg twice daily. 9. Gastroesophageal reflux disease and GI prophylaxis. Continue Pantoprazole 40 mg daily. 10. Diabetic neuropathy. w will continue wit Gabapentin 400 mg po tid. 11. Generalized anxiety disorder, recurrent depression. Continue Cymbalta 60 mg bid, and Xanax 0.25 mg twice daily as needed. 12. Patient diagnosed with EPI at [facility], stable. 13. Generalized debility, weakness secondary to extensive and repeated hospitalizations and multiple medical conditions. Consult with inpatient rehab. Continue PT and OT. 14. Full code. 15. transfer to inpatient Rehab when Auth is available Objective - Vital Signs Vital signs: Vital Signs Temp 97.9 F 06/15/23 02:00 Pulse 81 06/15/23 02:00 Resp 19 06/15/23 02:00 BP 159/76 06/15/23 02:00 Pulse Ox 98 06/15/23 07:59 FiO2 Intake & Output 06/14/23 06/15/23 06/15/23 18:59 06:59 18:59 Intake Total 118 180 Output Total 1950 Balance 118 -1950 180 Weight 93.44 kg Intake: Oral 118 180 Output: Urine 1950 Other: Voiding Method Diaper Diaper External Catheter External Catheter - Labs CBC & Chem 7: 06/14/23 17:09 06/14/23 17:09 Labs: Abnormal Lab Results - Last 24 Hours (Table) 06/14/23 06/14/23 06/14/23 Range/Units 16:34 17:09 17:09 WBC 3.7 L (3.8-10.6) k/uL RBC 3.53 L (3.80-5.40) m/uL Hgb 9.1 L (11.4-16.0) gm/dL Hct 29.4 L (34.0-46.0) % RDW 18.1 H (11.5-15.5) % Glucose 102 H (74-99) mg/dL POC Glucose (mg/dL) 125 H (70-110) mg/dL Calcium 7.5 L (8.4-10.2) mg/dL Total Protein 4.8 L (6.3-8.2) g/dL Albumin 1.9 L (3.5-5.0) g/dL 06/14/23 06/15/23 06/15/23 Range/Units 20:16 06:11 11:30 WBC (3.8-10.6) k/uL RBC (3.80-5.40) m/uL Hgb (11.4-16.0) gm/dL Hct (34.0-46.0) % RDW (11.5-15.5) % Glucose (74-99) mg/dL POC Glucose (mg/dL) 218 H 137 H 257 H (70-110) mg/dL Calcium (8.4-10.2) mg/dL Total Protein (6.3-8.2) g/dL Albumin (3.5-5.0) g/dL
[2023-06-16] MEDS: INSULIN ASPART (NovoLOG) 100 UNIT/ML VIAL SQ SCH ×4 (09:06→20:36)
[2023-06-16 11:49] LABS: Glucose,Whole Blood 165 mg/dL (70-110)
--- NOTE | 2023-06-16 15:54 | P.PN ---
Subjective Progress Note Date: 06/16/23 Principal diagnosis: Right leg wound infection Patient is a 63-year-old female with a past medical history significant for diabetes mellitus peripheral arterial disease coronary disease patient did have PAD and bypass graft with CryoVein right common thromboendarterectomy and right groin hematoma evacuation as well as right Achilles wound debridement and skin graft application patient has been sent to the ER by the home care nurse concerning for infection of the right lower extremity, patient is status post Sharp excisional debridement right lower extremity wound measuring 23 x 9 x 2.5 cm to muscle with undermining at the 12 o'clock position of 8.7 cm completed on 05/30/2023, the patient is status post right ciuhv-uhn-loaz amputation completed on 06/07/2023 On today's evaluation that is 06/16/2023, the patient remains to be afebrile , the patient is breathing comfortably on room air and denies any shortness of breath, the patient denies any chest pain cough or sputum production, patient denies nausea/vomiting/ diarrhea and no abdominal pain , the patient pain to the right AK stump and decrease in intensity, patient feeling better Patient white count of 3.7, creatinine 0.56 as of 06/14/2023 no labs drawn today, stool for C. diff is negative, cultures are currently growing Pseudomonas enterococcus and Proteus Objective - Vital Signs Vital signs: Vital Signs Temp 97.6 F 06/16/23 12:50 Pulse 75 06/16/23 12:50 Resp 19 06/16/23 12:50 BP 146/86 06/16/23 12:50 Pulse Ox 93 L 06/16/23 12:50 FiO2 Intake & Output 06/15/23 06/16/23 06/16/23 18:59 06:59 18:59 Intake Total 950 830 Output Total 500 Balance 950 830 -500 Intake: Oral 950 830 Output: Urine 500 Other: Voiding Method Diaper Diaper Diaper External Catheter External Catheter External Catheter # Bowel Movements 1 - Exam GENERAL DESCRIPTION: Middle-aged female lying in bed in no distress RESPIRATORY SYSTEM: Unlabored breathing , clear to auscultation anteriorly HEART: S1 S2 regular rate and rhythm , ABDOMEN: Soft , no tenderness EXTREMITIES: Right AKA stump incision is clean sara intact - Labs CBC & Chem 7: 06/14/23 17:09 06/14/23 17:09 Labs: Abnormal Lab Results - Last 24 Hours (Table) 06/15/23 06/16/23 06/16/23 Range/Units 20:16 07:07 11:47 POC Glucose (mg/dL) 196 H 178 H 165 H (70-110) mg/dL Assessment and Plan (1) Cellulitis of right leg Current Visit: Yes Status: Acute Code(s): L03.115 - CELLULITIS OF RIGHT LOWER LIMB SNOMED Code(s): 34321789136415909 (2) Leg wound, right Current Visit: Yes Status: Acute Code(s): S81.801A - UNSPECIFIED OPEN WOUND, RIGHT LOWER LEG, INITIAL ENCOUNTER SNOMED Code(s): 509686618 (3) Sepsis Current Visit: No Status: Acute Code(s): A41.9 - SEPSIS, UNSPECIFIED ORGANISM SNOMED Code(s): 34960765 Plan: 1patient presented to hospital with sepsis in this patient with a fever elevated white count source likely her right lower extremity infected wound and second cellulitis likely from gram-positive skin jesus however the patient culture growing Pseudomonas enterococcus and Proteus, patient is status post right zlfka-kvg-gnkm amputation on 06/07/2023, patient has completed her IV antibiotic therapy and patient remains to be afebrile white count normal we will monitor the patient closely off antibiotic therapy Dictation was produced using [employer] dictation software. please excuse any grammatical, word or spelling errors. Time with Patient: Less than 30
[2023-06-16 17:07] LABS: Glucose,Whole Blood 240 mg/dL (70-110)
[2023-06-16 20:29] LABS: Glucose,Whole Blood 205 mg/dL (70-110)
[2023-06-16] MEDS: ERGOCALCIFEROL 1,250 MCG (50,000 IU) CAPSULE PO SCH (20:37)
[2023-06-16] MEDS: INSULIN DETEMIR (LEVEMIR) 100 UNIT/ML SYR SQ SCH (20:37)
[2023-06-16] MEDS: MELATONIN 3 MG TABLET PO SCH (20:38)
[2023-06-17] MEDS: LACTATED RINGERS 1,000 ML IV SCH ×2 (00:11→21:33)
[2023-06-17 07:19] LABS: Glucose,Whole Blood 207 mg/dL (70-110)
[2023-06-17] MEDS: HYDROcodone/APAP 7.5-325MG 1 EACH TAB PO PRN ×3 (08:02→20:29)
[2023-06-17] MEDS: lisinopriL 10 MG TAB PO SCH (08:36)
[2023-06-17] MEDS: ATORVASTATIN 80 MG TAB PO SCH (08:36)
[2023-06-17] MEDS: PANTOPRAZOLE 40 MG TABLET PO SCH (08:36)
[2023-06-17] MEDS: METOPROLOL TARTRATE 25 MG TAB PO SCH ×2 (08:36→20:28)
[2023-06-17] MEDS: INSULIN ASPART (NovoLOG) 100 UNIT/ML VIAL SQ SCH ×4 (08:36→20:31)
[2023-06-17] MEDS: APIXABAN 5 MG TAB PO SCH ×2 (08:36→20:28)
[2023-06-17] MEDS: CHOLESTYRAMINE (WITH SUGAR) 4 GM PACKET PO SCH ×2 (08:36→17:11)
[2023-06-17] MEDS: CLOPIDOGREL 75 MG TAB PO SCH (08:36)
[2023-06-17] MEDS: FERROUS SULFATE 325 MG TAB PO SCH ×2 (08:36→20:28)
[2023-06-17] MEDS: POTASSIUM CHLORIDE ER 10 MEQ TAB.ER.PRT PO SCH ×2 (08:36→20:28)
[2023-06-17] MEDS: DOCUSATE 100 MG CAP PO SCH (08:36)
[2023-06-17] MEDS: DULoxetine HCL 60 MG CAPSULE.DR PO SCH ×2 (08:36→20:29)
[2023-06-17] MEDS: GABAPENTIN 400 MG CAP PO SCH ×3 (08:36→20:29)
[2023-06-17 11:03] LABS: Basophils # (A) 0.03 X 10*3/uL (0.00-0.10); Basophils % (A) 0.5 %; Eosinophils # (A) 0.33 X 10*3/uL (0.04-0.35); Eosinophils % (A) 5.7 %; HCT 30.5 % (37.2-46.3); HGB 9.2 g/dL (12.0-15.0); MCH 25.7 pg (27.0-32.0); MCHC 30.2 g/dL (32.0-37.0); MCV 85.2 FL (80.0-97.0); Mean Platelet Volume 10.7 FL (9.5-12.2); Monocytes # (A) 0.48 X 10*3/uL (0.20-1.00); Monocytes % (A) 8.3 %; NRBC Per 100 WBC 0 X 10*3/uL (0.00-0.01); Neutrophils % (A) 65.8 %; Platelet Count 342 X 10*3/uL (140-440); RBC 3.58 X 10*6/uL (4.10-5.20); RDW 18.6 % (11.5-14.5); WBC 5.78 X 10*3/uL (4.50-10.00)
[2023-06-17 11:11] LABS: ALT 9 U/L (8-44); AST 14 U/L (13-35); Albumin/Globulin Ratio 0.69 Ratio (1.60-3.17); Alkaline Phosphatase 115 U/L (41-126); Blood Urea Nitrogen 5.4 mg/dL (9.0-27.0); Calcium 8.1 mg/dL (8.7-10.3); Carbon Dioxide 27.5 mmol/L (21.6-31.8); Chloride 102 mmol/L (96-109); Globulin 2.9 g/dL (1.6-3.3); Glucose 205 mg/dL (70-110); Potassium 4.1 mmol/L (3.5-5.5); Sodium 139 mmol/L (135-145); Total Bilirubin 0.4 mg/dL (0.3-1.2); Total Protein 4.9 g/dL (6.2-8.2)
[2023-06-17 12:13] LABS: Glucose,Whole Blood 172 mg/dL (70-110)
--- NOTE | 2023-06-17 12:42 | P.PN ---
Subjective Progress Note Date: 06/17/23 Principal diagnosis: Right leg wound infection Patient is a 63-year-old female with a past medical history significant for diabetes mellitus peripheral arterial disease coronary disease patient did have PAD and bypass graft with CryoVein right common thromboendarterectomy and right groin hematoma evacuation as well as right Achilles wound debridement and skin graft application patient has been sent to the ER by the home care nurse concerning for infection of the right lower extremity, patient is status post Sharp excisional debridement right lower extremity wound measuring 23 x 9 x 2.5 cm to muscle with undermining at the 12 o'clock position of 8.7 cm completed on 05/30/2023, the patient is status post right wbxta-drx-tffi amputation completed on 06/07/2023 On today's evaluation that is 06/17/2023, the patient continues to be afebrile , the patient is not requiring any supplemental oxygen and is breathing comfortably on room air , the patient denies any chest pain no cough or sputum production, patient denies Abdominal pain and denies any nausea/vomiting/no diarrhea has been reported, patient has pain to the right AKA stump Patient white count is 5.78, creatinine 0.6 Objective - Vital Signs Vital signs: Vital Signs Temp 98.3 F 06/17/23 07:21 Pulse 77 06/17/23 07:21 Resp 16 06/17/23 07:21 BP 137/85 06/17/23 07:21 Pulse Ox 96 06/17/23 07:21 FiO2 Intake & Output 06/16/23 06/17/23 06/17/23 18:59 06:59 18:59 Intake Total 400 Output Total 1000 700 Balance -600 -700 Intake: Oral 400 Output: Urine 1000 700 Other: Voiding Method Diaper Diaper Diaper External Catheter External Catheter External Catheter # Voids 1 - Exam GENERAL DESCRIPTION: Middle-aged female lying in bed in no distress RESPIRATORY SYSTEM: Unlabored breathing , clear to auscultation anteriorly HEART: S1 S2 regular rate and rhythm , ABDOMEN: Soft , no tenderness EXTREMITIES: Right AKA stump incision is covered - Labs CBC & Chem 7: 06/17/23 06:45 06/17/23 06:45 Labs: Abnormal Lab Results - Last 24 Hours (Table) 06/16/23 06/16/23 06/17/23 Range/Units 17:01 20:26 06:45 RBC 3.58 L (4.10-5.20) X 10*6/uL Hgb 9.2 L (12.0-15.0) g/dL Hct 30.5 L (37.2-46.3) % MCH 25.7 L (27.0-32.0) pg MCHC 30.2 L (32.0-37.0) g/dL RDW 18.6 H (11.5-14.5) % BUN (9.0-27.0) mg/dL BUN/Creatinine Ratio (12.00-20.00) Ratio Glucose (70-110) mg/dL POC Glucose (mg/dL) 240 H 205 H (70-110) mg/dL Calcium (8.7-10.3) mg/dL Total Protein (6.2-8.2) g/dL Albumin (3.8-4.9) g/dL Albumin/Globulin Ratio (1.60-3.17) Ratio 06/17/23 06/17/23 06/17/23 Range/Units 06:45 07:17 12:06 RBC (4.10-5.20) X 10*6/uL Hgb (12.0-15.0) g/dL Hct (37.2-46.3) % MCH (27.0-32.0) pg MCHC (32.0-37.0) g/dL RDW (11.5-14.5) % BUN 5.4 L (9.0-27.0) mg/dL BUN/Creatinine Ratio 9.00 L (12.00-20.00) Ratio Glucose 205 H (70-110) mg/dL POC Glucose (mg/dL) 207 H 172 H (70-110) mg/dL Calcium 8.1 L (8.7-10.3) mg/dL Total Protein 4.9 L (6.2-8.2) g/dL Albumin 2.0 L (3.8-4.9) g/dL Albumin/Globulin Ratio 0.69 L (1.60-3.17) Ratio Assessment and Plan (1) Cellulitis of right leg Current Visit: Yes Status: Acute Code(s): L03.115 - CELLULITIS OF RIGHT LOWER LIMB SNOMED Code(s): 49623755416414662 (2) Leg wound, right Current Visit: Yes Status: Acute Code(s): S81.801A - UNSPECIFIED OPEN WOUND, RIGHT LOWER LEG, INITIAL ENCOUNTER SNOMED Code(s): 868024485 (3) Sepsis Current Visit: No Status: Acute Code(s): A41.9 - SEPSIS, UNSPECIFIED ORGANISM SNOMED Code(s): 44799561 Plan: 1patient presented to hospital with sepsis in this patient with a fever elevated white count source likely her right lower extremity infected wound and second cellulitis likely from gram-positive skin jesus however the patient culture growing Pseudomonas enterococcus and Proteus, patient is status post right cxnlk-afo-wrxo amputation on 06/07/2023, patient has completed her IV ant ibiotic therapy 2- patient remains to be afebrile and did have a normal white count possible plan for transfer to rehab no need for any antibiotic on discharge Dictation was produced using [employer] dictation software. please excuse any grammatical, word or spelling errors. Time with Patient: Less than 30
--- NOTE | 2023-06-17 14:06 | P.PN ---
Subjective Progress Note Date: 06/17/23 HISTORY OF PRESENT ILLNESS This is a 63-year-old female patient of mine with history of CAD with multiple cardiac stents in mid RCA, mid LAD, obtuse marginal branch and followed by Dr. Bill closely, peripheral artery disease with previous stenting done as well has amputation of the right great toe secondary to osteomyelitis, CVA with no residual deficits, hypertension, COPD, diabetes mellitus type 2, previous multiple DVT and PE requiring chronic anticoagulation on eliquis, history of GI bleed secondary to antral gastritis, esophagitis, vitamin D deficiency, autono margot hypotension on midodrine, history of left humerus fracture. resume with patient April 02 through April 15 at which time she presented to the hospital due to right second and fifth toe ischemic change. A CT angiogram showed evidence of occlusion of the right superficial femoral artery and 2 occluded segments 1 in the mid thigh about 3 cm and another into the right popliteal artery at 13 cm length, occlusion of the right iliac artery into the common femoral artery. Patient was seen in consultation by vascular surgery. Arterial ultrasound showed lower extremity abnormal on the right with HERMINIA suggests severe atherosclerotic disease. Critical stenosis not excluded. Plan for open bypass surgery with vascular surgery was made but a cardiology consult was requested. Patient was seen by Dr. Bill and had chest pain complaint and Due to critical in-stent restenosis and subsequently underwent cardiac catheterization which revealed critical in-stent restenosis of the RCA and Dr. Bill present performed stenting of the RCA. There was also intermediate disease in the first obtuse marginal branch of the left circumflex, intermediate disease involving the LAD and mildly elevated left sided filling pressures. Access was obtained from the right groin. Unfortunately following removal of the sheath, patient developed a significant hematoma to the right groin into the right pelvic area measuring up to 11.9 cm requiring ICU management, transfusion of packed RBCs and vasopressors for brief period along with IV fluid resuscitation. Patient was stabilized and discharged to home with home care but she returned with worsening wounds, hypotension with blood pressure of 84/57, leukocytosis of 26. She was seen by multiple consultants including wound care, infectious disease, vascular surgery. Patient underwent right common femoral to tibial vein bypass with debridement of a right exposed Achilles tendon heel, second third and fourth toes of the right foot and drainage of right inguinal hematoma with wound VAC with subsequent hematoma evacuation on 04/30. Patient was stabili zed and discharged to [facility] for subacute rehab. She returned to the emergency department about few weeks back and she was diagnosed with acute pancreatitis and she was taken off of her gaand she was discharged home because she refused to go back to [facility] and she recently underwent a skin grat to the right achilles lower leg area that was done by Umair Tejeda was Saturday before yesterday and carin was discharged home in a stable condition with a follow up last Saturday and then last and had the home care nurse coming for dressing changes and she was found to have black eschar on the back of her leg with purulent material coming out of her leg and right gron with a split wound where the LITO was and she appeared to have sepsis , she was started on IV Cefepime after obtaining blood cultures and wound cultures and she was admitted to the Hospital with vacular surgery consult along with ID consult 05/29: Patient has been seen by vascular surgery with plan for debridement of the Achilles area with possible amputation tomorrow. Eliquis has been discontinued. Patient has been maintained on Plavix. Blood pressure 149/85, heart rate is in the 70s, afebrile, pulse ox 94% on room air. WBC 11.6, hemoglobin 10.6, platelet count 269. Sodium 138, potassium 3.2 and will be replaced. Creatinine 0.6 BUN 6. Capillary blood glucose running between 85 and 129. Alkaline phosphatase 131. Gram stain from the wound right leg reveals moderate polymorphonuclear leukocytes, many gram-positive cocci and many gram- negative bacilli. Patient has been continued on cefepime 2 g IV piggyback every 12 hours. Patient is followed by infectious disease as well. Consult is in place for wound care center. 05/30: Patient is scheduled for debridement of the right lower extremity wound this afternoon with Dr. Mendoza. Deep cultures are to be obtained. Patient is continued on cefepime and daptomycin per Dr. Sheppard. Fevers are improving. Heart rate is in the 70s and 80s, blood pressure 128/57, pulse ox 94% on room air. WBC 10.3, hemoglobin 9.8, platelet count 234. Sodium 137, potassium 3.2, CO2 36, BUN 7 creatinine 0.67. CBG [id number]. Wound cultures are showing gram- negative bacilli. Blood culture no growth at 48 hours. Patient has been seen by the wound care team with recommendations for Santyl, saline moistened gauze dry gauze to the right groin wound. 05/31: Yesterday, patient underwent a sharp excisional debridement of the right lower extremity wound but due to the extent of the wound, poor tissue quality and lack of adequate flap potential, it has been recommended the patient undergo shevu-laj-yefz amputation. Cardiology has cleared the patient for surgical intervention knowing that she is at high risk but no absolute contraindications. Recommendations are to continue patient on aspirin while plavix on hold. We will plan on Lovenox once eliquis is discontinued prior to surgery. Patient continues to complain of pain to the right ankle foot area. She denies having any chest pain. No shortness of breath. She complains of feeling tired. Repeat blood work reveals WBC 9.4, hemoglobin 8.6, platelet count 236. Sodium 1 36, potassium 3.5, creatinine 0.64. Blood blood glucose this morning prior to lunch was 49. Otherwise blood sugars are running on the lower side in general 65-115. Scheduled NovoLog 10 units with meals will be discontinued and long- acting insulin was decreased. 06/03: Patient continues to be followed by vascular surgery with plan for right supwm-ahm-dpfm amputation on Saturday. Patient has been seen by cardiology and they've signed off. Plan is to continue aspirin 81 mg daily until patient can be resumed back on Plavix. Patient is also on eliquis transition to Lovenox until eliquis can be resumed following surgery. Antibiotics have been changed to meropenem per infectious disease. The blood glucose running between 159 and 175. 06/04: Patient states that pain to the right foot is a #6 out of 7. Plan is continued for amputation on Saturday with Dr. Mendoza. Capillary blood glucose ru nning between 168 and 227. Patient has been afebrile, heart rate 66, blood pressure 133/70. Patient has no new concerns. She continues to have minimal appetite. Family members are at bedside and all questions have been answered. 06/05: Patient remains afebrile, heart rate in the 70s to 90s, blood pressure 163/75, pulse ox 99% on room air. Patient continues to not have very much appetite. She also continues to have pain in the right foot ankle. Patient is having more anxiety related to upcoming surgery for which Xanax will be added. WBC 5, hemoglobin 10.5, platelet count 279. Sodium 133, potassium 3.9, chloride 96, CO2 27, BUN 8 and creatinine 0.62. Blood glucose running 126-155. 06/06: No new concerns from the patient. She is quite anxious in anticipation of surgery for tomorrow. She is scheduled for right bgdtn-nua-cpqk amputation tomorrow with Dr. Mendoza. Capillary blood glucose running between 101 and 168. Patient remains afebrile, heart rate in the 70s, blood pressure 162/81, pulse ox 96% on room air. 06/07: Patient is status post right yuzsj-huh-ddgh amputation. Patient is seen postoperatively back in her room. Her pain is currently fairly well controlled. Repeat blood work reveals hemoglobin of 8.6. Sodium 135, potassium 3.6, BUN 6 and creatinine 0.54. Blood sugar this morning was 54. Calcium 6.3. Patient has been transfused 1 unit of packed RBCs. Heart rate is 63, blood pressure 123/61 and pulse ox 99% on 3 L. Patient will be resumed back on eliquis and Plavix tomorrow. 06/10: Patient is postop day #3. Rick and Fabricio will be in to redo stump housekeeping supervisor and rigid dressing today. Patient is currently on Girdletree 7.54 times daily as needed for pain. She seems to be comfortable at this time. She is stating that she is not sleeping and not eating very much. She denies having any nausea or vomiting. She has had loose bowel movements possibly due to antibiotics. Questran has been added. Patient is no longer on antibiotics. No abdominal pain. She is reaching 1250 ml on incentive spirometry. She's been afebrile, heart rate 82, blood pressure 154/86, pulse ox 94% on room air. Patient is out of bed for the first time with the help of physical therapy. She is now agreeable to inpatient rehab and consult placed for evaluation. Loxitane has been increased to twice daily 60 mg. We'll 06/11: Patient is complaining of severe pain this morning. Diarrhea has resolved and C. difficile toxin came back negative. She is off IV antibiotics. Wound cultures were positive for Pseudomonas and enterococcus and Proteus. Yesterday, we added consult for inpatient rehab which we expect they will be evaluating today. Blood pressure 154/95, heart rate in the 70s. She's been afebrile, pulse ox 90% on room air. 06/12: Patient was seen yesterday by inpatient rehab for evaluation but she was quite sedated for the examination. Yesterday, Xanax was changed to when necessary but she was quite lethargic this morning and vascular has discontinued IV Dilaudid. She is crying out in pain and can be heard down the matson. She is currently on Girdletree 7.5 one every 6 hours. Consult has been added for pain management. Patient remains afebrile, heart rate in the 80s, blood pressure 125/82 and pulse ox 97% on room air. Blood sugar this morning was 59 and at lunch 77. Levemir as at 28 units at bedtime which will be decreased to 10 units. Patient will be transferred to [facility] without telemetry today. Patient seen again later in the afternoon and appears to be quite fatigued. Pain seems to be controlled at this time. 06/13: Patient is very quiet today. She is repeatedly saying "I need" and not completing her sentences. She is still complaining of significant pain to the right leg. She is on Girdletree 7.5 every 6 hours as needed. She did receive a dose of Xanax last evening at 8 PM. Capillary blood glucose running between 90 and 243. Yesterday, Levemir was decreased to 10 units as patient has not been eating very much and blood sugars have been low. Patient ate her percent of her breakfast this morning. There are no Blood pressure 158/86, heart rate in the 70s, pulse ox 90% on room air, afebrile. She is utilizing incentive spirometer reaching 1000 ML's. Patient has stump housekeeping supervisor and rigid dressing in place to the right stump. Patient in process of being evaluated by inpatient rehab. Pain management consult was placed yesterday. Patient is followed by inpatient rehab and waiting for further information. 06/14: Patient is lying down in bed continues to be very weak and she will require lots of PT, mood is better not as weepy since we have increased Duloxetin to 60 mg po bid, we will continue with curren treatment plan no need for more antibiotics as per ID and we are awaiting insurance Authorization for her to go to [facility] for inpatient rehabilitation. 06/17: Over the weekend, patient was transferred to the [facility] floor. Patient has been denied by insurance for authorization at inpatient rehab. We are waiting to find out if patient is accepted at [facility] but we are waiting for prior off from the insurance company. Patient remains afebrile, heart rate in 70s and 80s, blood pressure 124/72, pulse ox 94% on room air. Repeat blood work reveals WBC 5.7, hemoglobin 9.2, platelet count 342. Electrolytes are all normal. BUN 5.4 creatinine 0.6. Capillary blood glucose running between 172 and 240. Patient continues complaining of pain to the right stump. No abdominal pain no nausea vomiting or diarrhea. Patient has complete her course of IV antibiotics and followed by Dr. Sheppard. Patient does not require antibiotics at the time of discharge. REVIEW OF SYSTEMS Constitutional: positive for fever, No chills, no night sweats. Reports weight loss. Reports weakness, Reports fatigue no lethargy. NO daytime sleepiness. HEENT: No headache. No dizziness. Reports difficulty swallowing. No nasal drainage or congestion. No epistaxis. No sore throat. Lungs: No shortness of breath, cough, no sputum production. No wheezing. Cardiovascular: No chest pain, no lower extremity edema. No palpitations. No paroxysmal nocturnal dyspnea. No orthopnea. No lightheadedness or dizziness. No syncopal episodes. Abdominal: Reports no abdominal pain. Reports nausea, no vomiting. no diarrhea. No constipation. No bloody or tarry stools. Reports loss of appetite. Genitourinary: No dysuria, increased frequency, urgency. No urinary retention. Musculoskeletal: No myalgias. positive for muscle weakness, reports balance issues, reports gait dysfunction, reports frequent falls. No back pain. No neck pain. Integumentary: S/P Right AKA Neurologic: No aphasia. No facial droop. Noted intermittent change in mentation. No head injury. No headache. No paralysis. No paresthesia. Psychiatric: Reports depression. Reports anxiety. positive for mood swings. Endocrine: abnormal blood sugars. positive for weight change. No excessive sweating or thirst. No cold intolerance. PHYSICAL EXAMINATION Gen: This is a 63-year-old female. She is resting in bed and appears to be in no acute distress. HEENT: Head is atraumatic, normocephalic. Pupils equal, round. Sclerae is a nicteric. Mucous members of the mouth are somewhat dry. NECK: Supple. No JVD. No lymphadenopathy. No thyromegaly. LUNGS: Decrease breath sounds at the bases with few ronchi, no expiratory wheezes, no chest wall tenderness or intercostal retraction. 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 ABDOMEN: Soft. Bowel sounds are present. No masses. no tenderness, right groin dressing. EXTREMITIES: No pedal edema. Right cuhzw-whe-gdgc amputation, stump housekeeping supervisor and rigid dressing in place to the stump. NEUROLOGICAL: Patient is awake, alert and oriented x3. Cranial nerves 2 through 12 are grossly intact. Muscle power 4/5 in the left upper extremity, 4/5 in the right upper extremity, 3/5 in the bilateral lower extremities. ASSESSMENT AND PLAN 1. Right leg infected/failed graft with sepsis status post initial debriedement then right tnsoi-zzs-jvpb amputation. Patient is off IV antibiotics. Continue current pain management, incentive spirometry to reduce incidence of atelectasis and hospital-acquired pneumonia continue local wound care per vascular surgery. Continue Girdletree for pain control. Transfer to [facility] once insurance authorization has been obtained. 2. Recent right common femoral to tibial vein bypass with debridement of the right exposed Achilles tendon heel second third and fifth toes of the right foot, also drainage of the right inguinal hematoma post removal of the LITO drain with a split wound in the right groin. Continue local wound care per wound Center to groin. 3. Coronary artery disease with recent stent of the RCA due to recent in-stent restenosis. Patient has had previous multiple cardiac stents to the RCA and mid LAD, obtuse marginal branch. Continue patient on a Plavix 75 mg daily, Lopressor 25 mg twice daily, continue with Atorvastatin 80mg po daily 4. Diabetes mellitus type 2 uncontrolled with hyperglycemia and now hypoglycemia as patient is not eating much. Continue NovoLog scale before meals and at bedtime. Decrease Lantus to 10 units at bedtime. Discontinue Novolog 10 units AC meals TID 5. Hyperlipidemia. Continue Atorvastatin 80 mg po daily 6. Chronic DVT and PEs. Continue patient on eliquis 5 mg twice daily. 7. Chronic anemia with recent acute blood loss anemia secondary to hematoma in the right groin/pelvis. Continue patient on ferrous sulfate 325 mg twice daily. 8. Hypertension and hypertensive cardiovascular disease, Continue lisinopril increased to 10 mg daily, Lopressor 25 mg twice daily. 9. Gastroesophageal reflux disease and GI prophylaxis. Continue Pantoprazole 40 mg daily. 10. Diabetic neuropathy. w will continue wit Gabapentin 400 mg po tid. 11. Generalized anxiety disorder, recurrent depression. Continue Cymbalta 60 mg bid, and Xanax 0.25 mg twice daily as needed. 12. Patient diagnosed with EPI at [facility], [facility]. 13. Generalized debility, weakness secondary to extensive and repeated hospitalizations and multiple medical conditions. Consult with inpatient rehab. Continue PT and OT. 14. Full code. 15. transfer to inpatient Rehab when Auth is available Impression and plan of care have been directed as dictated by the signing physician. Kerri Kevin nurse practitioner acting as scribe for signing physician. Objective - Vital Signs Vital signs: Vital Signs Temp 98.3 F 06/17/23 07:21 Pulse 77 06/17/23 07:21 Resp 16 06/17/23 07:21 BP 137/85 06/17/23 07:21 Pulse Ox 96 06/17/23 07:21 FiO2 Intake & Output 06/16/23 06/17/23 06/17/23 18:59 06:59 18:59 Intake Total 400 Output Total 1000 700 Balance -600 -700 Intake: Oral 400 Output: Urine 1000 700 Other: Voiding Method Diaper Diaper Diaper External Catheter External Catheter External Catheter # Voids 1 - Labs CBC & Chem 7: 06/17/23 06:45 06/17/23 06:45 Labs: Abnormal Lab Results - Last 24 Hours (Table) 06/16/23 06/16/23 06/17/23 Range/Units 17:01 20:26 06:45 RBC 3.58 L (4.10-5.20) X 10*6/uL Hgb 9.2 L (12.0-15.0) g/dL Hct 30.5 L (37.2-46.3) % MCH 25.7 L (27.0-32.0) pg MCHC 30.2 L (32.0-37.0) g/dL RDW 18.6 H (11.5-14.5) % BUN (9.0-27.0) mg/dL BUN/Creatinine Ratio (12.00-20.00) Ratio Glucose (70-110) mg/dL POC Glucose (mg/dL) 240 H 205 H (70-110) mg/dL Calcium (8.7-10.3) mg/dL Total Protein (6.2-8.2) g/dL Albumin (3.8-4.9) g/dL Albumin/Globulin Ratio (1.60-3.17) Ratio 06/17/23 06/17/23 06/17/23 Range/Units 06:45 07:17 12:06 RBC (4.10-5.20) X 10*6/uL Hgb (12.0-15.0) g/dL Hct (37.2-46.3) % MCH (27.0-32.0) pg MCHC (32.0-37.0) g/dL RDW (11.5-14.5) % BUN 5.4 L (9.0-27.0) mg/dL BUN/Creatinine Ratio 9.00 L (12.00-20.00) Ratio Glucose 205 H (70-110) mg/dL POC Glucose (mg/dL) 207 H 172 H (70-110) mg/dL Calcium 8.1 L (8.7-10.3) mg/dL Total Protein 4.9 L (6.2-8.2) g/dL Albumin 2.0 L (3.8-4.9) g/dL Albumin/Globulin Ratio 0.69 L (1.60-3.17) Ratio
[2023-06-17 17:08] LABS: Glucose,Whole Blood 164 mg/dL (70-110)
[2023-06-17] MEDS: ACETAMINOPHEN TAB 325 MG TAB PO PRN (17:13)
[2023-06-17 19:52] LABS: Glucose,Whole Blood 236 mg/dL (70-110)
[2023-06-17] MEDS: MELATONIN 3 MG TABLET PO SCH (20:28)
[2023-06-17] MEDS: ALPRAZolam 0.25 MG TAB PO PRN (20:29)
[2023-06-17] MEDS: INSULIN DETEMIR (LEVEMIR) 100 UNIT/ML SYR SQ SCH (20:29)
[2023-06-18] MEDS: HYDROcodone/APAP 7.5-325MG 1 EACH TAB PO PRN (04:45)
--- NOTE | 2023-06-18 06:27 | P.PN ---
Subjective Progress Note Date: 06/16/23 HISTORY OF PRESENT ILLNESS This is a 63-year-old female patient of mine with history of CAD with multiple cardiac stents in mid RCA, mid LAD, obtuse marginal branch and followed by Dr. Bill closely, peripheral artery disease with previous stenting done as well has amputation of the right great toe secondary to osteomyelitis, CVA with no residual deficits, hypertension, COPD, diabetes mellitus type 2, previous multiple DVT and PE requiring chronic anticoagulation on eliquis, history of GI bleed secondary to antral gastritis, esophagitis, vitamin D deficiency, autono margot hypotension on midodrine, history of left humerus fracture. resume with patient April 02 through April 15 at which time she presented to the hospital due to right second and fifth toe ischemic change. A CT angiogram showed evidence of occlusion of the right superficial femoral artery and 2 occluded segments 1 in the mid thigh about 3 cm and another into the right popliteal artery at 13 cm length, occlusion of the right iliac artery into the common femoral artery. Patient was seen in consultation by vascular surgery. Arterial ultrasound showed lower extremity abnormal on the right with HERMINIA suggests severe atherosclerotic disease. Critical stenosis not excluded. Plan for open bypass surgery with vascular surgery was made but a cardiology consult was requested. Patient was seen by Dr. Bill and had chest pain complaint and Due to critical in-stent restenosis and subsequently underwent cardiac catheterization which revealed critical in-stent restenosis of the RCA and Dr. Bill present performed stenting of the RCA. There was also intermediate disease in the first obtuse marginal branch of the left circumflex, intermediate disease involving the LAD and mildly elevated left sided filling pressures. Access was obtained from the right groin. Unfortunately following removal of the sheath, patient developed a significant hematoma to the right groin into the right pelvic area measuring up to 11.9 cm requiring ICU management, transfusion of packed RBCs and vasopressors for brief period along with IV fluid resuscitation. Patient was stabilized and discharged to home with home care but she returned with worsening wounds, hypotension with blood pressure of 84/57, leukocytosis of 26. She was seen by multiple consultants including wound care, infectious disease, vascular surgery. Patient underwent right common femoral to tibial vein bypass with debridement of a right exposed Achilles tendon heel, second third and fourth toes of the right foot and drainage of right inguinal hematoma with wound VAC with subsequent hematoma evacuation on 04/30. Patient was stabili zed and discharged to [facility] for subacute rehab. She returned to the emergency department about few weeks back and she was diagnosed with acute pancreatitis and she was taken off of her gaand she was discharged home because she refused to go back to [facility] and she recently underwent a skin grat to the right achilles lower leg area that was done by Umair Tejeda was Saturday before yesterday and carin was discharged home in a stable condition with a follow up last Saturday and then last and had the home care nurse coming for dressing changes and she was found to have black eschar on the back of her leg with purulent material coming out of her leg and right gron with a split wound where the LITO was and she appeared to have sepsis , she was started on IV Cefepime after obtaining blood cultures and wound cultures and she was admitted to the Hospital with vacular surgery consult along with ID consult 05/29: Patient has been seen by vascular surgery with plan for debridement of the Achilles area with possible amputation tomorrow. Eliquis has been discontinued. Patient has been maintained on Plavix. Blood pressure 149/85, heart rate is in the 70s, afebrile, pulse ox 94% on room air. WBC 11.6, hemoglobin 10.6, platelet count 269. Sodium 138, potassium 3.2 and will be replaced. Creatinine 0.6 BUN 6. Capillary blood glucose running between 85 and 129. Alkaline phosphatase 131. Gram stain from the wound right leg reveals moderate polymorphonuclear leukocytes, many gram-positive cocci and many gram- negative bacilli. Patient has been continued on cefepime 2 g IV piggyback every 12 hours. Patient is followed by infectious disease as well. Consult is in place for wound care center. 05/30: Patient is scheduled for debridement of the right lower extremity wound this afternoon with Dr. Mendoza. Deep cultures are to be obtained. Patient is continued on cefepime and daptomycin per Dr. Sheppard. Fevers are improving. Heart rate is in the 70s and 80s, blood pressure 128/57, pulse ox 94% on room air. WBC 10.3, hemoglobin 9.8, platelet count 234. Sodium 137, potassium 3.2, CO2 36, BUN 7 creatinine 0.67. CBG [id number]. Wound cultures are showing gram- negative bacilli. Blood culture no growth at 48 hours. Patient has been seen by the wound care team with recommendations for Santyl, saline moistened gauze dry gauze to the right groin wound. 05/31: Yesterday, patient underwent a sharp excisional debridement of the right lower extremity wound but due to the extent of the wound, poor tissue quality and lack of adequate flap potential, it has been recommended the patient undergo ychzr-rjb-yury amputation. Cardiology has cleared the patient for surgical intervention knowing that she is at high risk but no absolute contraindications. Recommendations are to continue patient on aspirin while plavix on hold. We will plan on Lovenox once eliquis is discontinued prior to surgery. Patient continues to complain of pain to the right ankle foot area. She denies having any chest pain. No shortness of breath. She complains of feeling tired. Repeat blood work reveals WBC 9.4, hemoglobin 8.6, platelet count 236. Sodium 1 36, potassium 3.5, creatinine 0.64. Blood blood glucose this morning prior to lunch was 49. Otherwise blood sugars are running on the lower side in general 65-115. Scheduled NovoLog 10 units with meals will be discontinued and long- acting insulin was decreased. 06/03: Patient continues to be followed by vascular surgery with plan for right gyxzc-oyl-fdom amputation on Saturday. Patient has been seen by cardiology and they've signed off. Plan is to continue aspirin 81 mg daily until patient can be resumed back on Plavix. Patient is also on eliquis transition to Lovenox until eliquis can be resumed following surgery. Antibiotics have been changed to meropenem per infectious disease. The blood glucose running between 159 and 175. 06/04: Patient states that pain to the right foot is a #6 out of 7. Plan is continued for amputation on Saturday with Dr. Mendoza. Capillary blood glucose ru nning between 168 and 227. Patient has been afebrile, heart rate 66, blood pressure 133/70. Patient has no new concerns. She continues to have minimal appetite. Family members are at bedside and all questions have been answered. 06/05: Patient remains afebrile, heart rate in the 70s to 90s, blood pressure 163/75, pulse ox 99% on room air. Patient continues to not have very much appetite. She also continues to have pain in the right foot ankle. Patient is having more anxiety related to upcoming surgery for which Xanax will be added. WBC 5, hemoglobin 10.5, platelet count 279. Sodium 133, potassium 3.9, chloride 96, CO2 27, BUN 8 and creatinine 0.62. Blood glucose running 126-155. 06/06: No new concerns from the patient. She is quite anxious in anticipation of surgery for tomorrow. She is scheduled for right pxccq-wyk-axjp amputation tomorrow with Dr. Mendoza. Capillary blood glucose running between 101 and 168. Patient remains afebrile, heart rate in the 70s, blood pressure 162/81, pulse ox 96% on room air. 06/07: Patient is status post right oapyz-evs-tmyg amputation. Patient is seen postoperatively back in her room. Her pain is currently fairly well controlled. Repeat blood work reveals hemoglobin of 8.6. Sodium 135, potassium 3.6, BUN 6 and creatinine 0.54. Blood sugar this morning was 54. Calcium 6.3. Patient has been transfused 1 unit of packed RBCs. Heart rate is 63, blood pressure 123/61 and pulse ox 99% on 3 L. Patient will be resumed back on eliquis and Plavix tomorrow. 06/10: Patient is postop day #3. Rick and Fabricio will be in to redo stump greens laborer and rigid dressing today. Patient is currently on Ravia 7.54 times daily as needed for pain. She seems to be comfortable at this time. She is stating that she is not sleeping and not eating very much. She denies having any nausea or vomiting. She has had loose bowel movements possibly due to antibiotics. Questran has been added. Patient is no longer on antibiotics. No abdominal pain. She is reaching 1250 ml on incentive spirometry. She's been afebrile, heart rate 82, blood pressure 154/86, pulse ox 94% on room air. Patient is out of bed for the first time with the help of physical therapy. She is now agreeable to inpatient rehab and consult placed for evaluation. Loxitane has been increased to twice daily 60 mg. We'll 06/11: Patient is complaining of severe pain this morning. Diarrhea has resolved and C. difficile toxin came back negative. She is off IV antibiotics. Wound cultures were positive for Pseudomonas and enterococcus and Proteus. Yesterday, we added consult for inpatient rehab which we expect they will be evaluating today. Blood pressure 154/95, heart rate in the 70s. She's been afebrile, pulse ox 90% on room air. 06/12: Patient was seen yesterday by inpatient rehab for evaluation but she was quite sedated for the examination. Yesterday, Xanax was changed to when necessary but she was quite lethargic this morning and vascular has discontinued IV Dilaudid. She is crying out in pain and can be heard down the matson. She is currently on Ravia 7.5 one every 6 hours. Consult has been added for pain management. Patient remains afebrile, heart rate in the 80s, blood pressure 125/82 and pulse ox 97% on room air. Blood sugar this morning was 59 and at lunch 77. Levemir as at 28 units at bedtime which will be decreased to 10 units. Patient will be transferred to [facility] without telemetry today. Patient seen again later in the afternoon and appears to be quite fatigued. Pain seems to be controlled at this time. 06/13: Patient is very quiet today. She is repeatedly saying "I need" and not completing her sentences. She is still complaining of significant pain to the right leg. She is on Ravia 7.5 every 6 hours as needed. She did receive a dose of Xanax last evening at 8 PM. Capillary blood glucose running between 90 and 243. Yesterday, Levemir was decreased to 10 units as patient has not been eating very much and blood sugars have been low. Patient ate her percent of her breakfast this morning. There are no Blood pressure 158/86, heart rate in the 70s, pulse ox 90% on room air, afebrile. She is utilizing incentive spirometer reaching 1000 ML's. Patient has stump greens laborer and rigid dressing in place to the right stump. Patient in process of being evaluated by inpatient rehab. Pain management consult was placed yesterday. Patient is followed by inpatient rehab and waiting for further information. 06/14: Patient is lying down in bed continues to be very weak and she will require lots of PT, mood is better not as weepy since we have increased Duloxetin to 60 mg po bid, we will continue with curren treatment plan no need for more antibiotics as per ID and we are awaiting insurance Authorization for her to go to [facility] for inpatient rehabilitation. 06/15: Patient is lying down in bed her pain is controlled, no more diarrhea, off ABX and she was started on Questran per ID , awaiting the final Authorization by her Insurance to be moved to [facility] for Inpatient rehabilitation, appears more motivated and she is in a better spirit, labs reviewed so is her BGM 06/16: Patient is laying down in bed. Family is at the bedside, we are still awaiting prior authorization for the patient to go to inpatient rehabilitation hopefully the next 24 hours, patient pain is controlled, she continues to the current treatment plan, we'll continue to encourage oral intake of fluid, the greens laborer on her right stump need to be changed as it slides off every time the patient was around. REVIEW OF SYSTEMS Constitutional: positive for fever, No chills, no night sweats. Reports weight loss. Reports weakness, Reports fatigue no lethargy. NO daytime sleepiness. HEENT: No headache. No dizziness. Reports difficulty swallowing. No nasal drainage or congestion. No epistaxis. No sore throat. Lungs: No shortness of breath, cough, no sputum production. No wheezing. Cardiovascular: No chest pain, no lower extremity edema. No palpitations. No paroxysmal nocturnal dyspnea. No orthopnea. No lightheadedness or dizziness. No syncopal episodes. Abdominal: Reports no abdominal pain. Reports nausea, no vomiting. no diarrhea. No constipation. No bloody or tarry stools. Reports loss of appetite. Genitourinary: No dysuria, increased frequency, urgency. No urinary retention. Musculoskeletal: No myalgias. positive for muscle weakness, reports balance issues, reports gait dysfunction, reports frequent falls. No back pain. No neck pain. Integumentary: S/P Right AKA Neurologic: No aphasia. No facial droop. Noted intermittent change in mentation. No head injury. No headache. No paralysis. No paresthesia. Psychiatric: Reports depression. Reports anxiety. positive for mood swings. Endocrine: abnormal blood sugars. positive for weight change. No excessive sweating or thirst. No cold intolerance. PHYSICAL EXAMINATION Gen: This is a 63-year-old female. She is resting in bed and appears to be in no acute distress. HEENT: Head is atraumatic, normocephalic. Pupils equal, round. Sclerae is anicteric. Mucous members of the mouth are somewhat dry. NECK: Supple. No JVD. No lymphadenopathy. No thyromegaly. LUNGS: Decrease breath sounds at the bases with few ronchi, no expiratory wheezes, no chest wall tenderness or intercostal retraction. 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 ABDOMEN: Soft. Bowel sounds are present. No masses. no tenderness, right groin dressing. EXTREMITIES: No pedal edema. Right amyft-drk-dfrh amputation, stump greens laborer and rigid dressing in place to the stump. NEUROLOGICAL: Patient is awake, alert and oriented x3. Cranial nerves 2 through 12 are grossly intact. Muscle power 4/5 in the left upper extremity, 4/5 in the right upper extremity, 3/5 in the bilateral lower extremities. ASSESSMENT AND PLAN 1. Right leg infected/failed graft with sepsis status post initial debriedement then right aozrl-wxj-vawp amputation. Patient is off IV antibiotics. Continue current pain management, incentive spirometry to reduce incidence of atelectasis and hospital-acquired pneumonia continue local wound care per vascular surgery. Continue Ravia for pain control. Transfer to [facility] with Auth is available. 2. Recent right common femoral to tibial vein bypass with debridement of the right exposed Achilles tendon heel second third and fifth toes of the right foot, also drainage of the right inguinal hematoma post removal of the LITO drain with a split wound in the right groin. Continue local wound care per wound Cent er to groin. 3. Coronary artery disease with recent stent of the RCA due to recent in-stent restenosis. Patient has had previous multiple cardiac stents to the RCA and mid LAD, obtuse marginal branch. Continue patient on a Plavix 75 mg daily, Lopressor 25 mg twice daily, continue with Atorvastatin 80mg po daily 4. Diabetes mellitus type 2 uncontrolled with hyperglycemia and now hypoglycemia as patient is not eating much. Continue NovoLog scale before meals and at bedtime. Decrease Lantus to 10 units at bedtime. Discontinue Novolog 10 units AC meals TID 5. Hyperlipidemia. Continue Atorvastatin 80 mg po daily 6. Chronic DVT and PEs. Continue patient on eliquis 5 mg twice daily. 7. Chronic anemia with recent acute blood loss anemia secondary to hematoma in the right groin/pelvis. Continue patient on ferrous sulfate 325 mg twice daily. 8. Hypertension and hypertensive cardiovascular disease, Continue lisinopril increased to 10 mg daily, Lopressor 25 mg twice daily. 9. Gastroesophageal reflux disease and GI prophylaxis. Continue Pantoprazole 40 mg daily. 10. Diabetic neuropathy. w will continue wit Gabapentin 400 mg po tid. 11. Generalized anxiety disorder, recurrent depression. Continue Cymbalta 60 mg bid, and Xanax 0.25 mg twice daily as needed. 12. Patient diagnosed with EPI at [facility], [facility]. 13. Generalized debility, weakness secondary to extensive and repeated hospitalizations and multiple medical conditions. Consult with inpatient rehab. Continue PT and OT. 14. Full code. 15. transfer to inpatient Rehab when Auth is available Objective - Vital Signs Vital signs: Vital Signs Temp 97.7 F 06/16/23 07:05 Pulse 73 06/16/23 07:05 Resp 17 06/16/23 07:05 BP 145/81 06/16/23 07:05 Pulse Ox 95 06/16/23 07:05 FiO2 Intake & Output 06/15/23 06/16/23 06/16/23 18:59 06:59 18:59 Intake Total 950 830 Balance 950 830 Intake: Oral 950 830 Other: Voiding Method Diaper Diaper External Catheter External Catheter # Bowel Movements 1 - Labs CBC & Chem 7: 06/17/23 06:45 06/17/23 06:45 Labs: Abnormal Lab Results - Last 24 Hours (Table) 06/15/23 06/15/23 06/16/23 Range/Units 11:30 20:16 07:07 POC Glucose (mg/dL) 257 H 196 H 178 H (70-110) mg/dL
[2023-06-18] MEDS: ACETAMINOPHEN TAB 325 MG TAB PO PRN (06:39)
[2023-06-18 06:43] VITALS: RESP 16
[2023-06-18 07:15] LABS: Glucose,Whole Blood 219 mg/dL (70-110)
[2023-06-18] MEDS ORDERED: ZINC OXIDE PASTE (Z-GUARD) 1 APPLIC APPLIC TOPICAL PRN (07:47)
[2023-06-18 08:00] VITALS: BP 126/75; PULSE 79; TEMP 97.5
[2023-06-18 08:03] LABS: ALT 14 U/L (4-34); AST 25 U/L (14-36); African American GFR (CKD) >90 (>60 ml/min/1.73 sqM); Albumin 2.2 g/dL (3.5-5.0); Albumin/Globulin Ratio 0.7; Alkaline Phosphatase 112 U/L (38-126); Anion Gap 6 mmol/L; Blood Urea Nitrogen 7 mg/dL (7-17); Calcium 8.2 mg/dL (8.4-10.2); Carbon Dioxide 29 mmol/L (22-30); Chloride 100 mmol/L (98-107); Globulin 3.3 g/dL; Glucose 200 mg/dL (74-99); Non-African American GFR(CKD) >90 (>60 ml/min/1.73 sqM); Potassium 4.3 mmol/L (3.5-5.1); Sodium 135 mmol/L (137-145); Total Bilirubin 0.8 mg/dL (0.2-1.3); Total Protein 5.5 g/dL (6.3-8.2)
[2023-06-18 08:10] LABS: Anisocytosis Slight; Basophils % (A) 0 %; Eosinophils # (A) 0.4 k/uL (0-0.7); Eosinophils % (A) 6 %; HGB 10.4 gm/dL (11.4-16.0); Hypochromasia Marked; Lymphocytes # (A) 1.1 k/uL (1.0-4.8); Lymphocytes % (A) 17 %; MCH 26.1 pg (25.0-35.0); MCHC 31.5 g/dL (31.0-37.0); MCV 82.9 fL (80.0-100.0); Mean Platelet Volume 8.7; Monocytes # (A) 0.5 k/uL (0-1.0); Monocytes % (A) 8 %; Neutrophils # (A) 4.2 k/uL (1.3-7.7); Neutrophils % (A) 67 %; Platelet Count 372 k/uL (150-450); Poikilocytosis Moderate; RBC 3.98 m/uL (3.80-5.40); RDW 18.8 % (11.5-15.5); WBC 6.2 k/uL (3.8-10.6)
[2023-06-18] MEDS: INSULIN ASPART (NovoLOG) 100 UNIT/ML VIAL SQ SCH (08:16)
--- NOTE | 2023-06-18 09:54 | P.DS ---
Providers Date of admission: 05/28/23 17:56 Expected date of discharge: 06/18/23 Attending physician: Tramaine Tejeda Consults: 05/28/23 17:47 Consult Physician Urgent Consulting Provider: Zaira Sheppard Consult Reason/Comments: Groin and leg wound, sepsis Do you want consulting provider notified?: Yes 05/31/23 07:30 Consult Physician Routine Consulting Provider: Alexis Yen Consult Reason/Comments: Cardiac clearance for AKA, recs on anticoagulation/plavix Do you want consulting provider notified?: Already Contacted 06/10/23 12:58 Consult Physician Routine Consulting Provider: William De La Torre Consult Reason/Comments: IP Rehab Do you want consulting provider notified?: Yes 06/12/23 09:33 Consult Physician Routine Consulting Provider: Rusty Bryant Consult Reason/Comments: Pain management post AKA Do you want consulting provider notified?: Yes Primary care physician: Tramaine Tejeda Hospital Course: HISTORY OF PRESENT ILLNESS This is a 63-year-old female patient of mine with history of CAD with multiple cardiac stents in mid RCA, mid LAD, obtuse marginal branch and followed by Dr. Bill closely, peripheral artery disease with previous stenting done as well has amputation of the right great toe secondary to osteomyelitis, CVA with no residual deficits, hypertension, COPD, diabetes mellitus type 2, previous multiple DVT and PE requiring chronic anticoagulation on eliquis, history of GI bleed secondary to antral gastritis, esophagitis, vitamin D deficiency, autonomic hypotension on midodrine, history of left humerus fracture. resume with patient April 02 through April 15 at which time she presented to the hospital due to right second and fifth toe ischemic change. A CT angiogram showed evidence of occlusion of the right superficial femoral artery and 2 occluded segments 1 in the mid thigh about 3 cm and another into the right popliteal artery at 13 cm length, occlusion of the right iliac artery into the common femoral artery. Patient was seen in consultation by vascular surgery. Arterial ultrasound showed lower extremity abnormal on the right with HERMINIA suggests severe atherosclerotic disease. Critical stenosis not excluded. Plan for open bypass surgery with vascular surgery was made but a cardiology consult was requested. Patient was seen by Dr. Bill and had chest pain complaint and Due to critical in-stent restenosis and subsequently underwent cardiac catheterization which revealed critical in-stent restenosis of the RCA and Dr. Skaf present performed stenting of the RCA. There was also intermediate disease in the first obtuse marginal branch of the left circumflex, intermediate disease involving the LAD and mildly elevated left sided filling pressures. Access was obtained from the right groin. Unfortunately following removal of the sheath, patient developed a significant hematoma to the right groin into the right pelvic area measuring up to 11.9 cm requiring ICU management, transfusion of packed RBCs and vasopressors for brief period along with IV fluid resuscitation. Patient was stabilized and discharged to home with home care but she returned with worsening wounds, hypotension with blood pressure of 84/57, leukocytosis of 26. She was seen by multiple consultants including wound care, infectious disease, vascular surgery. Patient underwent right common femoral to tibial vein bypass with debridement of a right exposed Achilles tendon heel, second third and fourth toes of the right foot and drainage of right inguinal hematoma with wound VAC with subsequent hematoma evacuation on 04/30. Patient was stabilized and discharged to [facility] for subacute rehab. She returned to the emergency department about few weeks back and she was diagnosed with acute pancreatitis and she was taken off of her [facility] she was discharged home because she refused to go back to [facility] and she recently underwent a skin grat to the right achilles lower leg area that was done by Umair Tejeda was Saturday before yesterday and carin was discharged home in a stable condition with a follow up last Saturday and then last and had the home care nurse coming for dressing changes and she was found to have black eschar on the back of her leg with purulent material coming out of her leg and right gron with a split wound where the LITO was and she appeared to have sepsis , she was started on IV Cefepime after obtaining blood cultures and wound cultures and she was admitted to the Hospital with vacular surgery consult along with ID consult 05/29: Patient has been seen by vascular surgery with plan for debridement of the Achilles area with possible amputation tomorrow. Eliquis has been discontinued. Patient has been maintained on Plavix. Blood pressure 149/85, heart rate is in the 70s, afebrile, pulse ox 94% on room air. WBC 11.6, hemoglobin 10.6, platelet count 269. Sodium 138, potassium 3.2 and will be replaced. Creatinine 0.6 BUN 6. Capillary blood glucose running between 85 and 129. Alkaline phosphatase 131. Gram stain from the wound right leg reveals moderate polymorphonuclear leukocytes, many gram-positive cocci and many gram- negative bacilli. Patient has been continued on cefepime 2 g IV piggyback every 12 hours. Patient is followed by infectious disease as well. Consult is in place for wound care center. 05/30: Patient is scheduled for debridement of the right lower extremity wound this afternoon with Dr. Mendoza. Deep cultures are to be obtained. Patient is continued on cefepime and daptomycin per Dr. Sheppard. Fevers are improving. Heart rate is in the 70s and 80s, blood pressure 128/57, pulse ox 94% on room air. WBC 10.3, hemoglobin 9.8, platelet count 234. Sodium 137, potassium 3.2, CO2 36, BUN 7 creatinine 0.67. CBG [id number]. Wound cultures are showing gram- negative bacilli. Blood culture no growth at 48 hours. Patient has been seen by the wound care team with recommendations for Santyl, saline moistened gauze dry gauze to the right groin wound. 05/31: Yesterday, patient underwent a sharp excisional debridement of the right lower extremity wound but due to the extent of the wound, poor tissue quality and lack of adequate flap potential, it has been recommended the patient undergo [id number] amputation. Cardiology has cleared the patient for surgical intervention knowing that she is at high risk but no absolute contraindications. Recommendations are to continue patient on aspirin while plavix on hold. We will plan on Lovenox once eliquis is discontinued prior to surgery. Patient continues to complain of pain to the right ankle foot area. She denies having any chest pain. No shortness of breath. She complains of feeling tired. Repeat blood work reveals WBC 9.4, hemoglobin 8.6, platelet count 236. Sodium 136, potassium 3.5, creatinine 0.64. Blood blood glucose this morning prior to lunch was 49. Otherwise blood sugars are running on the lower side in general 65-115. Scheduled NovoLog 10 units with meals will be discontinued and long- acting insulin was decreased. 06/03: Patient continues to be followed by vascular surgery with plan for right yqity-bxx-uhwe amputation on Saturday. Patient has been seen by cardiology and they've signed off. Plan is to continue aspirin 81 mg daily until patient can be resumed back on Plavix. Patient is also on eliquis transition to Lovenox until eliquis can be resumed following surgery. Antibiotics have been changed to meropenem per infectious disease. The blood glucose running between 159 and 175. 06/04: Patient states that pain to the right foot is a #6 out of 7. Plan is continued for amputation on Saturday with Dr. Mendoza. Capillary blood glucose running between 168 and 227. Patient has been afebrile, heart rate 66, blood pressure 133/70. Patient has no new concerns. She continues to have minimal appetite. Family members are at bedside and all questions have been answered. 06/05: Patient remains afebrile, heart rate in the 70s to 90s, blood pressure 163/75, pulse ox 99% on room air. Patient continues to not have very much appetite. She also continues to have pain in the right foot ankle. Patient is having more anxiety related to upcoming surgery for which Xanax will be added. WBC 5, hemoglobin 10.5, platelet count 279. Sodium 133, potassium 3.9, chloride 96, CO2 27, BUN 8 and creatinine 0.62. Blood glucose running 126-155. 06/06: No new concerns from the patient. She is quite anxious in anticipation of surgery for tomorrow. She is scheduled for right euwgb-edb-batk amputation tomorrow with Dr. Mendoza. Capillary blood glucose running between 101 and 168. Patient remains afebrile, heart rate in the 70s, blood pressure 162/81, pulse ox 96% on room air. 06/07: Patient is status post right wekmi-uyo-purq amputation. Patient is seen postoperatively back in her room. Her pain is currently fairly well controlled. Repeat blood work reveals hemoglobin of 8.6. Sodium 135, potassium 3.6, BUN 6 and creatinine 0.54. Blood sugar this morning was 54. Calcium 6.3. Patient has been transfused 1 unit of packed RBCs. Heart rate is 63, blood pressure 123/61 and pulse ox 99% on 3 L. Patient will be resumed back on eliquis and Plavix tomorrow. 06/10: Patient is postop day #3. Rick and Fabricio will be in to redo stump trousseau consultant and rigid dressing today. Patient is currently on [place] 7.54 times daily as needed for pain. She seems to be comfortable at this time. She is stating that she is not sleeping and not eating very much. She denies having any nausea or vomiting. She has had loose bowel movements possibly due to antibiotics. Questran has been added. Patient is no longer on antibiotics. No abdominal pain. She is reaching 1250 ml on incentive spirometry. She's been afebrile, heart rate 82, blood pressure 154/86, pulse ox 94% on room air. Patient is out of bed for the first time with the help of physical therapy. She is now agreeable to inpatient rehab and consult placed for evaluation. Loxitane has been increased to twice daily 60 mg. We'll 06/11: Patient is complaining of severe pain this morning. Diarrhea has resolved and C. difficile toxin came back negative. She is off IV antibiotics. Wound cultures were positive for Pseudomonas and enterococcus and Proteus. Yesterday, we added consult for inpatient rehab which we expect they will be evaluating today. Blood pressure 154/95, heart rate in the 70s. She's been afebrile, pulse ox 90% on room air. 06/12: Patient was seen yesterday by inpatient rehab for evaluation but she was quite sedated for the examination. Yesterday, Xanax was changed to when necessary but she was quite lethargic this morning and vascular has discontinued IV Dilaudid. She is crying out in pain and can be heard down the matson. She is currently on [place] 7.5 one every 6 hours. Consult has been added for pain management. Patient remains afebrile, heart rate in the 80s, blood pressure 125/82 and pulse ox 97% on room air. Blood sugar this morning was 59 and at lunch 77. Levemir as at 28 units at bedtime which will be decreased to 10 units. Patient will be transferred to [facility] without telemetry today. Patient seen again later in the afternoon and appears to be quite fatigued. Pain seems to be controlled at this time. 06/13: Patient is very quiet today. She is repeatedly saying "I need" and not completing her sentences. She is still complaining of significant pain to the right leg. She is on [place] 7.5 every 6 hours as needed. She did receive a dose of Xanax last evening at 8 PM. Capillary blood glucose running between 90 and 243. Yesterday, Levemir was decreased to 10 units as patient has not been eating very much and blood sugars have been low. Patient ate her percent of her breakfast this morning. There are no Blood pressure 158/86, heart rate in the 70s, pulse ox 90% on room air, afebrile. She is utilizing incentive spirometer reaching 1000 ML's. Patient has stump trousseau consultant and rigid dressing in place to the right stump. Patient in process of being evaluated by inpatient rehab. Pain management consult was placed yesterday. Patient is followed by inpatient rehab and waiting for further information. 06/14: Patient is lying down in bed continues to be very weak and she will require lots of PT, mood is better not as weepy since we have increased Duloxetin to 60 mg po bid, we will continue with curren treatment plan no need for more antibiotics as per ID and we are awaiting insurance Authorization for her to go to [facility] for inpatient rehabilitation. 06/17: Over the weekend, patient was transferred to the [facility] floor. Patient has been denied by insurance for authorization at inpatient rehab. We are waiting to find out if patient is accepted at [facility] but we are waiting for prior off from the insurance company. Patient remains afebrile, heart rate in 70s and 80s, blood pressure 124/72, pulse ox 94% on room air. Repeat blood work reveals WBC 5.7, hemoglobin 9.2, platelet count 342. Electrolytes are all normal. BUN 5.4 creatinine 0.6. Capillary blood glucose running between 172 and 240. Patient continues complaining of pain to the right stump. No abdominal pain no nausea vomiting or diarrhea. Patient has complete her course of IV antibiotics and followed by Dr. Sheppard. Patient does not require antibiotics at the time of discharge. 06/18: Patient remains afebrile, heart rate in the 70s and 80s, blood pressure 126/75, pulse ox 94% on room air. Repeat blood work reveals WBC 6.2, hemoglobin 10.4, platelet count 2/72. Sodium 135, potassium 4.3, creatinine 0.64. Capillary blood glucose running between 164 and 236. Insurance authorization has been obtained and patient will be discharged to [facility] in stable condition. DISCHARGE DIAGNOSES 1. Right leg infected/failed graft with sepsis status post initial debriedement then right kevlg-oyf-fjnt amputation. 2. Recent right common femoral to tibial vein bypass with debridement of the right exposed Achilles tendon heel second third and fifth toes of the right foot, also drainage of the right inguinal hematoma post removal of the LITO drain with a split wound in the right groin. Continue local wound care per wound Center to groin. 3. Coronary artery disease with recent stent of the RCA due to recent in-stent restenosis. Patient has had previous multiple cardiac stents to the RCA and mid LAD, obtuse marginal branch. 4. Diabetes mellitus type 2 uncontrolled with hyperglycemia and now hypoglycemia as patient is not eating much. 5. Hyperlipidemia. 6. Chronic DVT and PEs. 7. Chronic anemia with recent acute blood loss anemia secondary to hematoma in the right groin/pelvis. 8. Hypertension and hypertensive cardiovascular disease. 9. Gastroesophageal reflux disease. 10. Diabetic neuropathy. 11. Generalized anxiety disorder, recurrent depression. 12. Patient diagnosed with EPI at [facility], [facility]. 13. Generalized debility, weakness secondary to extensive and repeated hospitalizations and multiple medical conditions. DISCHARGE PLAN: [facility] for subacute rehab Greater than 35 minutes was utilized and coordinating patient's discharge. Impression and plan of care have been directed as dictated by the signing physician. Kerri Kevin nurse practitioner acting as scribe for signing physician. Patient Condition at Discharge: Stable Plan - Discharge Summary Discharge Rx Participant: Yes New Discharge Prescriptions: New lisinopriL [Zestril] 10 mg PO DAILY tab HYDROcodone/APAP 7.5-325MG [[place] 7.5-325] 1 tab PO Q4H PRN 3 Days #18 tab PRN Reason: Pain HYDROcodone/APAP 7.5-325MG [[place] 7.5-325] 1 each PO Q4-6H PRN 3 Days #18 tab PRN Reason: Pain DULoxetine HCL [Cymbalta] 60 mg PO BID cap Ipratropium-Albuterol Nebulize [Duoneb 0.5 mg-3 mg/3 ml Soln] 3 ml INHALATION RT-Q6H PRN each PRN Reason: Shortness Of Breath Or Wheezing INSULIN ASPART (NovoLOG) [NovoLOG (formulary)] 0 unit SQ ACHS each ALPRAZolam [Xanax] 0.25 mg PO BID PRN 3 Days #6 tab PRN Reason: Anxiety Continue Melatonin 3 mg PO HS Ergocalciferol (Vitamin D2) [Drisdol (50,000 Iu)] 1,250 mcg PO GUERRERO Clopidogrel [Plavix] 75 mg PO DAILY Ferrous Sulfate [Feosol] 325 mg PO BID #60 tab Docusate [Colace] 100 mg PO DAILY Rosuvastatin [Crestor] 20 mg PO DAILY Omeprazole [PriLOSEC] 20 mg PO DAILY Nitroglycerin Sl Tabs [Nitrostat] 0.4 mg SL Q5M PRN PRN Reason: Chest Pain Metoprolol Tartrate [Lopressor] 25 mg PO BID #60 tab Potassium Chloride ER [K-Dur 10] 10 meq PO BID Collagenase [Santyl Ointment] 1 applic TOPICAL DAILY each Apixaban [Eliquis] 5 mg PO BID Gabapentin [Neurontin] 400 mg PO TID #9 cap Changed Insulin Glargine,Hum.rec.anlog [Lantus Solostar Pen] 15 units SQ HS #0 Discontinued DULoxetine HCL [Cymbalta] 60 mg PO DAILY HYDROcodone/APAP 7.5-325MG [[place] 7.5-325] 1 tab PO QID PRN #12 tab PRN Reason: Pain INSULIN LISPRO (HumaLOG) [humaLOG] See Protocol SQ AC-TID Dapagliflozin Propanediol [Farxiga] 10 mg PO DAILY traMADol HCL 50 mg PO DAILY Cyclobenzaprine [Flexeril] 5 mg PO HS PRN PRN Reason: SLEEP/MUSCLE PAIN lisinopriL [Zestril] 5 mg PO DAILY #30 tab INSULIN LISPRO (HumaLOG) [humaLOG] 10 units SQ AC-TID Discharge Medication List Docusate [Colace] 100 mg PO DAILY 11/14/21 [History] Rosuvastatin [Crestor] 20 mg PO DAILY 01/08/23 [History] Ergocalciferol (Vitamin D2) [Drisdol (50,000 Iu)] 1,250 mcg PO GUERRERO 04/01/23 [History] Melatonin 3 mg PO HS 04/01/23 [History] Nitroglycerin Sl Tabs [Nitrostat] 0.4 mg SL Q5M PRN 04/01/23 [History] Omeprazole [PriLOSEC] 20 mg PO DAILY 04/01/23 [History] Metoprolol Tartrate [Lopressor] 25 mg PO BID #60 tab 04/15/23 [Rx] Potassium Chloride ER [K-Dur 10] 10 meq PO BID 04/22/23 [History] Collagenase [Santyl Ointment] 1 applic TOPICAL DAILY each 05/18/23 [Rx] Apixaban [Eliquis] 5 mg PO BID 05/20/23 [History] Clopidogrel [Plavix] 75 mg PO DAILY 05/20/23 [History] Ferrous Sulfate [Feosol] 325 mg PO BID #60 tab 06/10/23 [Rx] HYDROcodone/APAP 7.5-325MG [[place] 7.5-325] 1 each PO Q4-6H PRN 3 Days #18 tab 06/12/23 [Rx] DULoxetine HCL [Cymbalta] 60 mg PO BID cap 06/14/23 [Rx] INSULIN ASPART (NovoLOG) [NovoLOG (formulary)] 0 unit SQ ACHS each 06/14/23 [Rx] Insulin Glargine,Hum.rec.anlog [Lantus Solostar Pen] 15 units SQ HS #0 06/14/23 [Rx] Ipratropium-Albuterol Nebulize [Duoneb 0.5 mg-3 mg/3 ml Soln] 3 ml INHALATION RT-Q6H PRN each 06/14/23 [Rx] lisinopriL [Zestril] 10 mg PO DAILY tab 06/14/23 [Rx] ALPRAZolam [Xanax] 0.25 mg PO BID PRN 3 Days #6 tab 06/18/23 [Rx] Gabapentin [Neurontin] 400 mg PO TID #9 cap 06/18/23 [Rx] HYDROcodone/APAP 7.5-325MG [[place] 7.5-325] 1 tab PO Q4H PRN 3 Days #18 tab 06/18/23 [Rx] Follow up Appointment(s)/Referral(s): Heraclio Hughes DO [Doctor of Osteopathic Medicine] - 2 Weeks [facility], [NON-STAFF] - Tramaine Tejeda MD [Primary Care Provider] - 1 Week (at [facility]) Activity/Diet/Wound Care/Special Instructions: Activity as tolerated per recommendations from PT/OT Stump trousseau consultant and rigid dressing to right AKA stump Right groin dressing changes daily with Santyl, saline moistened gauze, dry gauze and secure with tape Discharge Disposition: TRANSFER TO SNF/ECF
[2023-06-18] MEDS: APIXABAN 5 MG TAB PO SCH (10:04)
[2023-06-18] MEDS: CLOPIDOGREL 75 MG TAB PO SCH (10:05)
[2023-06-18] MEDS: DULoxetine HCL 60 MG CAPSULE.DR PO SCH (10:05)
[2023-06-18] MEDS: ATORVASTATIN 80 MG TAB PO SCH (10:05)
[2023-06-18] MEDS: DOCUSATE 100 MG CAP PO SCH (10:05)
[2023-06-18] MEDS: GABAPENTIN 400 MG CAP PO SCH (10:05)
[2023-06-18] MEDS: FERROUS SULFATE 325 MG TAB PO SCH (10:05)
[2023-06-18] MEDS: CHOLESTYRAMINE (WITH SUGAR) 4 GM PACKET PO SCH (10:06)
[2023-06-18] MEDS: METOPROLOL TARTRATE 25 MG TAB PO SCH (10:06)
[2023-06-18] MEDS: lisinopriL 10 MG TAB PO SCH (10:06)
[2023-06-18] MEDS: POTASSIUM CHLORIDE ER 10 MEQ TAB.ER.PRT PO SCH (10:06)
[2023-06-18] MEDS: PANTOPRAZOLE 40 MG TABLET PO SCH (10:06)
--- NOTE | 2023-06-19 12:30 | P.PAINPG ---
Objective - Vital Signs Vital signs: Vital Signs Temp 98.1 F 06/12/23 07:52 Pulse 86 06/12/23 07:52 Resp 22 06/12/23 07:52 BP 148/84 06/12/23 07:52 Pulse Ox 95 06/12/23 07:52 FiO2 Intake & Output 06/11/23 06/12/23 06/12/23 18:59 06:59 18:59 Intake Total 225 540 0 Output Total 1500 Balance 225 -960 0 Intake: Oral 225 540 0 Output: Urine 1500 Other: Voiding Method Diaper Diaper External Catheter External Catheter - Labs CBC & Chem 7: 06/10/23 08:07 06/11/23 07:54 Labs: Abnormal Lab Results - Last 24 Hours (Table) 06/11/23 06/11/23 06/12/23 Range/Units 16:18 20:52 06:13 POC Glucose (mg/dL) 44 L 136 H 59 L (70-110) mg/dL 06/12/23 06/12/23 Range/Units 06:47 07:15 POC Glucose (mg/dL) 51 L 119 H (70-110) mg/dL PQRS Measure Charge Sheet Comment: HISTORY OF PRESENT ILLNESS: A 63 yr old inpatient female w ex - at side 5 days s/p R AKA as a referral from [facility] presents today w severe and chronic RLE pain secondary to 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 Pt states pain level is provoked at 9/10 in intensity, constant, localized in the RLE, achy, stabbing in character without shooting pain. Pain is provoked by palpation, movement. Pain is alleviated by medications (Dilaudid 0.5mg q3h prn, [place] 7.5/325mg Q6H prn, Neurontin 400mg #90, Tyl 500mg q4h prn), elevation, repositioning and rest. Pt was also taking Xanax TID (around the clock per nurse) which has impacted her drowsy state. Xanax changed to prn, Dilaudid discontinued and substitution w [place] 7.5/325mg. Pt is transitioning to go to inpatient rehab in the upcoming days. 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 Fa- NV, CAD, at age 71. Sis- NV at age 56. Sons- DVT, PE. All: See list Meds: See list REVIEW OF ORGAN SYSTEMS: CONSTITUTIONAL: No fevers or chills. No recent weight loss. NEUROLOGICAL: + numbness and tingling along the distal extremities. No seizure disorders or headaches. MUSCULOSKELETAL: + pain PSYCHIATRIC: Denies current depression or suicidal thoughts. Physical Examinations : Constitutional : Cooperative , not in acute distress . Neurologic : Cranial nerve II to XII intact. No focal neurological deficits. Psychiatric : alert & oriented x 3. Matching mood & appropriate affect. Judgment & insight intact. Musculoskeletal : Cervical Spine Motor strength in the deltoid and biceps: Normal right side. Normal Left side Motor strength biceps and the wrist extensors: Normal right side . Normal left side Motor strength in the triceps muscle: Normal right side. Normal left side Deep tendon reflexes: Normal at the biceps. Normal at Brachioradialis. Normal at triceps Vertebral body tenderness to deep palpation over Cervical facet loading test: positive bilaterally Spurling test: positive bilaterally Neck distraction test: positive bilaterally Felicity sign: positive bilaterally Lumbar spine +R AKA, +erythema, edema, dressing intact Motor strength lower extremities ,thigh and legs 5/5 Right side , 5/5 Left side Deep tendon reflexes : Normal Knee Jerk. Normal Ankle Jerk Vertebral body tenderness over Itlley Test positive Lumbar facet Loading Test: positive Right / positive Left Range of motion of the lumbar spine Flexion 30 degrees, extension 10 degrees Straight Leg Raise test: Left/ Right p ositive at degree Carlene test: positive right / positive left. Severe tenderness over the Sacroiliac joint on the Right / Left sides Gaenslen test: positive bilaterally Seated flexion test: positive bilaterally. 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 Pt acknowledged understanding. All questions answered. I have spent greater than 30 minutes on patient care today. Dr Bryant was available by phone for the evaluation of this patient. The time was used to review the medical records including relevant urine studies and Prescription history (MAPs), review of the available imaging, evaluation and examination of the patient, coordination of care with the medical staff and if applicable referring physicians, as well as creation of the medical record - Pain Location Right Calf Non-Pharmacological Interventions: Darkened Room, Distraction, Elevation, Environmental Control Pharmacological Interventions: Medication Right Leg Non-Pharmacological Interventions: Darkened Room, Position/Reposition Pharmacological Interventions: PRN Medication PQRS Narrative: Smoking Status Current every day smoker Blood Pressure [Right Arm] 148/84 Blood Pressure 100/50 Pain Intensity [Right Leg] 7 Pain Intensity [Right Calf] 7 Pain Intensity 8 Pain Scale Used [Right Calf] Numeric (1 - 10) Pain Scale Used Numeric (1 - 10) Scale Used Numeric (1 - 10) Home Medications: Ambulatory Orders Docusate [Colace] 100 mg PO DAILY 11/14/21 DULoxetine HCL [Cymbalta] 60 mg PO DAILY 09/06/22 Rosuvastatin [Crestor] 20 mg PO DAILY 01/08/23 Ergocalciferol (Vitamin D2) [Drisdol (50,000 Iu)] 1,250 mcg PO GUERRERO 04/01/23 Melatonin 3 mg PO HS 04/01/23 Nitroglycerin Sl Tabs [Nitrostat] 0.4 mg SL Q5M PRN 04/01/23 Omeprazole [PriLOSEC] 20 mg PO DAILY 04/01/23 Metoprolol Tartrate [Lopressor] 25 mg PO BID #60 tab 04/15/23 lisinopriL [Zestril] 5 mg PO DAILY #30 tab 04/15/23 Potassium Chloride ER [K-Dur 10] 10 meq PO BID 04/22/23 Gabapentin [Neurontin] 400 mg PO TID #9 cap 05/02/23 HYDROcodone/APAP 7.5-325MG [[place] 7.5-325] 1 tab PO QID PRN #12 tab 05/02/23 INSULIN LISPRO (HumaLOG) [humaLOG] 10 units SQ AC-TID 05/10/23 INSULIN LISPRO (HumaLOG) [humaLOG] See Protocol SQ AC-TID 05/10/23 Insulin Glargine,Hum.rec.anlog [Lantus Solostar Pen] 34 units SQ HS 05/10/23 Collagenase [Santyl Ointment] 1 applic TOPICAL DAILY each 05/18/23 Apixaban [Eliquis] 5 mg PO BID 05/20/23 Clopidogrel [Plavix] 75 mg PO DAILY 05/20/23 Dapagliflozin Propanediol [Farxiga] 10 mg PO DAILY 05/20/23 traMADol HCL 50 mg PO DAILY 05/20/23 Ferrous Sulfate [Feosol] 325 mg PO BID #60 tab 06/10/23 HYDROcodone/APAP 7.5-325MG [[place] 7.5-325] 1 each PO Q4-6H PRN 3 Days #18 tab 06/12/23 Controlled Substance Measures - Controlled Substance Measures Is patient prescribed a controlled substance at discharge?: Yes When asked, does pt state using other controlled substances?: Yes If prescribed controlled substance>3 days was MAPS reviewed?: Prescribed <3 Days
== END 2023-06-18 11:42 | DRG 239 ==
LOC: EC 15:44 → 3SCARD 17:56 → 5NMEDONC 06-15 13:26
PROVIDERS: ADMIT Internal Medicine; ATTEND Internal Medicine
PROC: 0KBQ0ZZ Excision of Right Upper Leg Muscle, Open Approach (ICD-10-PCS; 2023-05-30)
PROC: 05HF33Z Insertion of Infusion Device into Left Cephalic Vein, Percutaneous Approach (ICD-10-PCS; 2023-06-04)
PROC: 3E043XZ Introduction of Vasopressor into Central Vein, Percutaneous Approach (ICD-10-PCS; 2023-06-07)
PROC: 30233N1 Transfusion of Nonautologous Red Blood Cells into Peripheral Vein, Percutaneous Approach (ICD-10-PCS; 2023-06-07)
PROC: 0Y6C0Z1 Detachment at Right Upper Leg, High, Open Approach (ICD-10-PCS; principal; 2023-06-07 09:45)
DX: T82.7XXA Infection and inflammatory reaction due to other cardiac and vascular devices, implants and grafts, initial encounter (principal); A41.59 Other Gram-negative sepsis; R65.21 Severe sepsis with septic shock; D62 Acute posthemorrhagic anemia; E11.52 Type 2 diabetes mellitus with diabetic peripheral angiopathy with gangrene; L97.813 Non-pressure chronic ulcer of other part of right lower leg with necrosis of muscle; I70.261 Atherosclerosis of native arteries of extremities with gangrene, right leg; F33.9 Major depressive disorder, recurrent, unspecified; I69.354 Hemiplegia and hemiparesis following cerebral infarction affecting left non-dominant side; L03.115 Cellulitis of right lower limb; L97.113 Non-pressure chronic ulcer of right thigh with necrosis of muscle; T86.821 Skin graft (allograft) (autograft) failure; T82.855A Stenosis of coronary artery stent, initial encounter; I25.10 Atherosclerotic heart disease of native coronary artery without angina pectoris; F41.9 Anxiety disorder, unspecified; E11.40 Type 2 diabetes mellitus with diabetic neuropathy, unspecified; E11.622 Type 2 diabetes mellitus with other skin ulcer; E66.9 Obesity, unspecified; Z68.32 Body mass index [BMI] 32.0-32.9, adult; Z95.820 Peripheral vascular angioplasty status with implants and grafts; I70.239 Atherosclerosis of native arteries of right leg with ulceration of unspecified site; E11.65 Type 2 diabetes mellitus with hyperglycemia; B96.4 Proteus (mirabilis) (morganii) as the cause of diseases classified elsewhere; B95.2 Enterococcus as the cause of diseases classified elsewhere; E11.628 Type 2 diabetes mellitus with other skin complications; Z79.01 Long term (current) use of anticoagulants; K76.0 Fatty (change of) liver, not elsewhere classified; B96.5 Pseudomonas (aeruginosa) (mallei) (pseudomallei) as the cause of diseases classified elsewhere; K21.9 Gastro-esophageal reflux disease without esophagitis; Z85.828 Personal history of other malignant neoplasm of skin; E55.9 Vitamin D deficiency, unspecified; Z79.4 Long term (current) use of insulin; R19.7 Diarrhea, unspecified; Z79.899 Other long term (current) drug therapy; Z79.02 Long term (current) use of antithrombotics/antiplatelets; Z98.1 Arthrodesis status; Z83.2 Family history of diseases of the blood and blood-forming organs and certain disorders involving the immune mechanism; Z82.49 Family history of ischemic heart disease and other diseases of the circulatory system; R26.9 Unspecified abnormalities of gait and mobility; Z95.5 Presence of coronary angioplasty implant and graft; Z91.81 History of falling; K08.109 Complete loss of teeth, unspecified cause, unspecified class; Z88.1 Allergy status to other antibiotic agents; Z89.411 Acquired absence of right great toe; E87.5 Hyperkalemia; E87.6 Hypokalemia; F17.210 Nicotine dependence, cigarettes, uncomplicated; F41.1 Generalized anxiety disorder; G89.4 Chronic pain syndrome; M51.16 Intervertebral disc disorders with radiculopathy, lumbar region; L98.493 Non-pressure chronic ulcer of skin of other sites with necrosis of muscle; Y83.1 Surgical operation with implant of artificial internal device as the cause of abnormal reaction of the patient, or of later complication, without mention of misadventure at the time of the procedure; Y83.2 Surgical operation with anastomosis, bypass or graft as the cause of abnormal reaction of the patient, or of later complication, without mention of misadventure at the time of the procedure; Z79.82 Long term (current) use of aspirin; Z79.84 Long term (current) use of oral hypoglycemic drugs; Z83.3 Family history of diabetes mellitus; Z86.711 Personal history of pulmonary embolism; Z86.718 Personal history of other venous thrombosis and embolism; Z28.311 Partially vaccinated for COVID-19; Z96.612 Presence of left artificial shoulder joint; Z28.21 Immunization not carried out because of patient refusal; Z87.19 Personal history of other diseases of the digestive system
CPT/HCPCS: 36415; 36430; 70450; 71046; 80048; 80053; 82040; 83605; 85025; 85027; 85610; 86140; 86850; 86900; 86901; 86920; 87040; 87070; 87075; 87077; 87186; 87205; 87324; 94640; 94760; 96361; 96374; 96375; 99285

== ENCOUNTER 2023-07-04 11:16 | Inpatient (IN) | payer MEDICARE, OTHER ==
[2023-07-04] MEDS ORDERED: SODIUM CHLORIDE 0.9% 1,000 ML IV STA (11:43)
[2023-07-04 12:12] LABS: Appearance,Urine Clear (Clear); Bilirubin,Urine Negative (Negative); Blood,Urine Negative (Negative); Color,Urine Yellow; Glucose,Urine (UA) 4+ (Negative); Ketones,Urine Negative (Negative); Leukocyte Esterase,Urine Negative (Negative); Nitrite,Urine Negative (Negative); PH, Urine 5.5 (5.0-8.0); Protein,Urine Trace (Negative); Specific Gravity,Urine 1.023 (1.001-1.035); Urobilinogen,Urine <2.0 mg/dL (<2.0)
[2023-07-04 12:16] LABS: ALT 28 U/L (4-34); AST 30 U/L (14-36); African American GFR (CKD) 69 (>60 ml/min/1.73 sqM); Albumin 3.1 g/dL (3.5-5.0); Alkaline Phosphatase 181 U/L (38-126); Anion Gap 15 mmol/L; Blood Urea Nitrogen 18 mg/dL (7-17); Calcium 9.4 mg/dL (8.4-10.2); Carbon Dioxide 24 mmol/L (22-30); Chloride 97 mmol/L (98-107); Glucose 94 mg/dL (74-99); Lipase 50 U/L (23-300); Non-African American GFR(CKD) 59 (>60 ml/min/1.73 sqM); Potassium 4.7 mmol/L (3.5-5.1); Sodium 136 mmol/L (137-145); Total Protein 7.2 g/dL (6.3-8.2)
[2023-07-04 12:25] LABS: Anisocytosis Slight; Basophils % (A) 0 %; Eosinophils # (A) 0.5 k/uL (0-0.7); Eosinophils % (A) 3 %; HCT 43.2 % (34.0-46.0); HGB 13.5 gm/dL (11.4-16.0); Hypochromasia Marked; Lymphocytes # (A) 0.7 k/uL (1.0-4.8); Lymphocytes % (A) 5 %; MCH 26.6 pg (25.0-35.0); MCHC 31.3 g/dL (31.0-37.0); MCV 84.9 fL (80.0-100.0); Mean Platelet Volume 9.1; Monocytes # (A) 1.1 k/uL (0-1.0); Monocytes % (A) 7 %; Neutrophils # (A) 11.9 k/uL (1.3-7.7); Neutrophils % (A) 84 %; Platelet Count 385 k/uL (150-450); Poikilocytosis Slight; RBC 5.08 m/uL (3.80-5.40); RDW 19.5 % (11.5-15.5); WBC 14.2 k/uL (3.8-10.6)
[2023-07-04] MEDS ORDERED: ONDANSETRON 4 MG/2 ML VIAL IVP STA (12:35)
--- NOTE | 2023-07-04 13:49 | CT ---
EXAMINATION: CT ABDOMEN AND PELVIS WITH IV CONTRAST DATE OF EXAMINATION: 07/04/2023. COMPARISON: 05/10/2023.. INDICATION: Abdominal pain. PROCEDURE: Axial CT of the abdomen and pelvis was performed with contrast and sagittal and coronal reformatted images were performed. CT dose lowering techniques were used, to include: automated expos ure control, adjustment for patient size, and/or use of iterative reconstruction. 100 mL of Isovue-30 0 was given intravenously. FINDINGS: LOWER CHEST : The visualized lung bases are clear. There are no pleural or pericardial effusions. M oderate to significant coronary artery calcifications are noted. ABDOMEN: Liver and Biliary system: Normal. Adrenal glands: 1.7 cm right adrenal nodule is unchanged dating back to at least 01/15/2019. The left adrenal appears unremarkable. Kidneys and ureters: Normal. Spleen: Normal. Pancreas: Normal. Gallbladder: Absent. Lymph nodes, Peritoneum and mesentery: There is no mesenteric or retroperitoneal lymphadenopathy. Gastrointestinal tract: There are no dilated loops of bowel or free intraperitoneal air. The appe ndix is normal. Aorta/IVC: There is moderate vascular calcification throughout the abdominal aorta without evidence of aneurysmal dilation. IVC filter is present. IVC appears diminutive. There are stents within the proximal right common iliac vein which is thought to be patent. The right common iliac vein stent is not clearly patent although appears unchanged. Abdominal wall: Normal. PELVIS: Fluid: There is no free fluid in the pelvis. Lymph Nodes: There is no pelvic or inguinal lymphadenopathy.. Urinary bladder: Small amount of air seen within the urinary bladder.. BONES: Compression deformity of the T11 vertebral body is unchanged. No acute osseous abnormalities are otherwise seen. ADDITIONAL SIGNIFICANT FINDINGS: Fluid collection within the right lower quadrant subcutaneous fat and abdominal wall has a thickness of approximately 2.2 cm in maximum diameter and previously 4.7 cm in diameter. Pigtail catheter has been removed. The collection does appear to be communicating with t he skin surface. IMPRESSION: 1. Decreased size of the subcutaneous fluid collection within the right lower abdominal wall describe d above. 2. No acute findings otherwise seen. 3. Additional chronic and incidental changes noted above.
[2023-07-04] MEDS ORDERED: MIDODRINE 5 MG TAB PO STA (14:41)
[2023-07-04] MEDS ORDERED: ONDANSETRON 4 MG/2 ML VIAL IVP PRN (14:54)
[2023-07-04] MEDS ORDERED: NALOXONE 0.4 MG/ML 1 ML VIAL IV PRN (14:54)
[2023-07-04] MEDS: SODIUM CHLORIDE 0.9% 1,000 ML IV SCH ×2 (15:09→21:05)
--- NOTE | 2023-07-04 15:23 | ED ---
Abdominal Pain HPI - General Chief Complaint: Abdominal Pain Stated Complaint: Diarrhea Time Seen by Provider: 07/04/23 11:29 Source: patient Mode of arrival: EMS Limitations: no limitations - History of Present Illness Initial Comments: 63-year-old female with past medical history of diabetes, coronary artery disease, peripheral vascular disease who presents to emergency department [facility]. Son is at bedside and provides majority of the history area and states that the patient has had a complicated medical history since March. 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 She was discharged to rehab. He states that at rehab she has had some hallucinations. She states that she is talking to people that have . She also reports to hearing dogs barking. Son states she has been extremely depressed. They have had issues with low blood pressure in the patient requires Midodrin. Today the patient began having nausea with vomiting and some diarrhea. Denies black or bloody stools. She has not been on any antibiotics recently. The facility did test this morning for C. diff which was negative. She was supposed to have an appointment with her vascular surgeon today to have her sara removed from her stump. She also has an abdominal wall wound which was supposed to be evaluated by Dr. Evaristo Paul however they had to cancel the appointment because of her nausea, vomiting and diarrhea and evidence that the patient was transported to the hospital for further evaluation - Related Data Home Medications Medication Instructions Recorded Confirmed Docusate [Colace] 100 mg PO DAILY@0800 11/14/21 07/04/23 Rosuvastatin [Crestor] 20 mg PO DAILY@1700 01/08/23 07/04/23 Ergocalciferol (Vitamin D2) 1,250 mcg PO GUERRERO@0804/01/23 07/04/23 [Drisdol (50,000 Iu)] Melatonin 3 mg PO HS@2100 04/01/23 07/04/23 Nitroglycerin Sl Tabs [Nitrostat] 0.4 mg SL Q5M PRN 04/01/23 07/04/23 Omeprazole [PriLOSEC] 20 mg PO DAILY@0800 04/01/23 07/04/23 Potassium Chloride ER [K-Dur 10] 10 meq PO BID@0800,1700 04/22/23 07/04/23 Apixaban [Eliquis] 5 mg PO BID@0800,1700 05/20/23 07/04/23 Clopidogrel [Plavix] 75 mg PO DAILY@1100 05/20/23 07/04/23 DULoxetine HCL [Cymbalta] 60 mg PO BID@0800,2100 07/04/23 07/04/23 Dapagliflozin Propanediol [Farxiga] 10 mg PO DAILY@0800 07/04/23 07/04/23 Ensure Clear 237 ml PO BID@0800,1700 07/04/23 07/04/23 Ferrous Sulfate [Feosol] 325 mg PO BID@0800,1700 07/04/23 07/04/23 Gabapentin [Neurontin] 400 mg PO TID@0600,1400,219907/04/23 07/04/23 Glucerna Shake 237 ml PO DAILY@17007/04/23 07/04/23 HYDROcodone/APAP 7.5-325MG [[place] 1 tab PO Q4-6H PRN 07/04/23 07/04/23 7.5-325] INSULIN ASPART (NovoLOG) [NovoLOG See Protocol SQ 07/04/23 07/04/23 (formulary)] ACHS@07,11,1630,0 Insulin Glargine,Hum.rec.anlog 15 units SQ HS@212907/04/23 07/04/23 [Lantus Solostar Pen] Liquacel 30 ml PO BID@0800,1700 07/04/23 07/04/23 Magic Cup 1 dose PO BID-W/MEALS@12,17 07/04/23 07/04/23 Magnesium Hydroxide [Milk of 7,200 mg PO DAILY PRN 07/04/23 07/04/23 Magnesia Concentrate] Metoprolol Tartrate [Lopressor] 25 mg PO BID@0800,1700 07/04/23 07/04/23 Midodrine [ProAmatine] 5 mg PO TID@0600,1400,219907/04/23 07/04/23 Na Phos,M-B/Na Phos,Di-Ba [Fleet 133 ml RECTAL DAILY PRN 07/04/23 07/04/23 Adult] bisacodyL [Dulcolax] 10 mg RECTAL DAILY PRN 07/04/23 07/04/23 Previous Rx's Medication Instructions Recorded Collagenase [Santyl Ointment] 1 applic TOPICAL DAILY each 05/18/23 Ipratropium-Albuterol Nebulize 3 ml INHALATION RT-Q6H PRN each 06/14/23 [Duoneb 0.5 mg-3 mg/3 ml Soln] ALPRAZolam [Xanax] 0.25 mg PO BID PRN 3 Days #6 tab 06/18/23 Allergies Allergy/AdvReac Type Severity Reaction Status Date / Time vancomycin Allergy Rash/Hives/and Verified 07/04/23 14:56 vomiting diarrhea/Swelling Review of Systems ROS Statement: Those systems with pertinent positive or pertinent negative responses have been documented in the HPI. ROS Other: All systems not noted in ROS Statement are negative. Past Medical History Past Medical History: Coronary Artery Disease (CAD), Diabetes Mellitus, Deep Vein Thrombosis (DVT), Vascular Disorder Additional Past Medical History / Comment(s): SKIN CA. 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, NEUROPATHY LEGS & FEET, USING WALKER, .Mutiple DVT,mesentaric thrombosis x2 & PE, PAD, chronic pain syndrome, ddd lumbar region w/radiculopathy, HISTORY OF FALL 01/07/20 , tore rt rotator cuff, pancreatitis, fatty liver, Last Myocardial Infarction Date:: 2010 History of Any Multi-Drug Resistant Organisms: None Reported Past Surgical History: Section, Cholecystectomy, Heart Catheterization, Heart Catheterization With Stent, Orthopedic Surgery, Tonsillectomy, Tubal Ligation Additional Past Surgical History / Comment(s): 11 Stents in left leg, fistula left thigh, full mouth teeth extraction, TRAPEASE VENA CAVA FILTER, carpel tunnel, heart stents x4 rca and lad, tumor removal from uterus. Genital warts removed, INGRID. Skin cancer removed from neck, rt great toe amputated, colonoscopy, rt rotator, left shoulder replacement, cervial fusion, rt calf debridement, rt calf skin graft (May 2023) Past Anesthesia/Blood Transfusion Reactions: No Reported Reaction Date of Last Stent Placement:: Mar 2023 Past Psychological History: Anxiety, Depression Smoking Status: Current every day smoker Past Alcohol Use History: None Reported Past Drug Use History: None Reported - Past Family History Mother Family Medical History: Cancer, Congestive Heart Failure (CHF), Diabetes Mellitus, Myocardial Infarction ([place]) Additional Family Medical History / Comment(s): UTERINE CANCER Father Family Medical History: Coronary Artery Disease (CAD), Myocardial Infarction ([place]) Additional Family Medical History / Comment(s): Father at age 70. Sister(s) Family Medical History: Myocardial Infarction ([place]) Additional Family Medical History / Comment(s): Patient has one sister with myocardial infarction at age 55. Son(s) Family Medical History: Deep Vein Thrombosis (DVT), Pulmonary Embolus Additional Family Medical History / Comment(s): Patient has 2 sons and one has history of DVT and pulmonary embolism. General Exam Limitations: no limitations General appearance: alert, anxious Head exam: Present: atraumatic, normocephalic, normal inspection Eye exam: Present: normal appearance, PERRL, EOMI. Absent: scleral icterus, conjunctival injection, periorbital swelling ENT exam: Present: mucous membranes dry Neck exam: Present: normal inspection. Absent: tenderness, meningismus, lymphadenopathy Respiratory exam: Present: normal lung sounds bilaterally. Absent: respiratory distress, wheezes, rales, rhonchi, stridor Cardiovascular Exam: Present: normal rhythm, tachycardia GI/Abdominal exam: Present: other (ulceration right lower abd wall. no drainage) Extremities exam: Present: other (bka rle. distal stump has staple line. slight erythema to the medial aspect) Course Vital Signs 07/04/23 07/04/23 07/04/23 11:21 11:51 13:26 Temperature 97.7 F Pulse Rate 105 H 110 H 93 Pulse Rate [ Medical Billing Coder ] Respiratory 20 20 20 Rate Blood Pressure 87/56 93/46 93/40 Blood Pressure [Right Arm] O2 Sat by Pulse 96 94 L 95 Oximetry 07/04/23 07/04/23 07/04/23 14:00 15:00 16:38 Temperature Pulse Rate 75 99 68 Pulse Rate [ Medical Billing Coder ] Respiratory 16 16 20 Rate Blood Pressure 92/60 82/48 103/61 Blood Pressure [Right Arm] O2 Sat by Pulse 98 95 95 Oximetry 07/04/23 07/04/23 07/04/23 18:36 19:40 20:00 Temperature 98.2 F 98.7 F Pulse Rate 85 77 Pulse Rate [ 79 Medical Billing Coder ] Respiratory 16 18 16 Rate Blood Pressure 93/58 98/51 Blood Pressure 101/55 [Right Arm] O2 Sat by Pulse 95 95 97 Oximetry Medical Decision Making - Medical Decision Making Was pt. sent in by a medical professional or institution (, [facility], GUITAR TEACHER, urgent care, hospital, or residential...) When possible be specific @ -ECF Did you speak to anyone other than the patient for history (EMS, parent, family, police, friend...)? What history was obtained from this source @ -EMS, son Did you review nursing and triage notes (agree or disagree)? Why? @ -I reviewed and agree with nursing and triage notes Were old charts reviewed (outside hosp., previous admission, EMS record, old EKG, old radiological studies, urgent care reports/EKG's, residential records)? Report findings @ -old charts were reviewed - med list from ECF Differential Diagnosis (chest pain, altered mental status, abdominal pain women, abdominal pain men, vaginal bleeding, weakness, fever, dyspnea, syncope, headache, dizziness, GI bleed, back pain, seizure, CVA, palpatations, mental health, musculoskeletal)? @ -sepsis, dehydration, cdiff, covid, cellulitis EKG interpreted by me (3pts min.). @ -not done X-rays interpreted by me (1pt min.). @ -None done CT interpreted by me (1pt min.). @ -yes and demonstrates no acute process U/S interpreted by me (1pt. min.). @ -None done What testing was considered but not performed or refused? (CT, X-rays, U/S, labs)? Why? @ -None What meds were considered but not given or refused? Why? @ -None Did you discuss the management of the patient with other professionals (professionals i.e. , [facility], GUITAR TEACHER, lab, RT, psych nurse, criminal justice social worker, clarity specialists, teacher, law enforcement officer, case sealer)? Give summary @ -Dr. Andrade Was smoking cessation discussed for >3mins.? @ -No Was critical care preformed (if so, how long)? @ -No Were there social determinants of health that impacted care today? How? (Homelessness, low income, unemployed, alcoholism, drug addiction, transportation, low edu. Level, literacy, decrease access to med. care, halfway, rehab)? @ -Pt comes from ECF Was there de-escalation of care discussed even if they declined (Discuss DNR or withdrawal of care, Hospice)? DNR status @ -No What co-morbidities impacted this encounter? (DM, HTN, Smoking, COPD, CAD, Cancer, CVA, ARF, Chemo, Hep., AIDS, mental health diagnosis, sleep apnea, morbid obesity)? @ -CAD, PAD, DM Was patient admitted / discharged? Hospital course, mention meds given and route, prescriptions, significant lab abnormalities, going to OR and other pertinent info. @ -Upon arrival patient was placed into room 22. Thorough history and physical exam was performed. IV was established. Patient was given a liter bolus normal saline started on Hytrin to be cc per hour. Laboratory studies were conducted. She was given formal grams of Zofran. Laboratory studies are reviewed and demonstrated white blood cell count of 14.2. Lactic acid 2.3. I did dose the patient's midodrine as she does have soft blood pressures. CT is performed of the patient's abdomen which demonstrates decreased size of a subcutaneous fluid collection in the right lower abdominal wall. Discuss results with the patient. Patient will be admitted to Dr. andrade for further evaluation by Dr. Sheppard and Dr. Mendoza. Patient started on cefepime per Dr. andrade Undiagnosed new problem with uncertain prognosis? @ -yes Drug Therapy requiring intensive monitoring for toxicity (Heparin, Nitro, Insulin, Cardizem)? @ -No Were any procedures done? @ -No Diagnosis/symptom? @ -acute n/v, acute abd pain, acute diarrhea, right abd wall wound, acute leukocytosis, recent bka Acute, or Chronic, or Acute on Chronic? @ -acute Uncomplicated (without systemic symptoms) or Complicated (systemic symptoms)? @ -complicated Side effects of treatment? @ -No Exacerbation, Progression, or Severe Exacerbation? @ -No Poses a threat to life or bodily function? How? (Chest pain, [place], [place], pneumonia, PE, COPD, DKA, ARF, appy, cholecystitis, CVA, Diverticulitis, Homicidal, Suicidal, threat to staff... and all critical care pts) @ -No - Lab Data Result diagrams: 07/05/23 08:56 07/05/23 08:56 Lab Results 07/04/23 07/04/23 07/04/23 Range/Units 11:43 11:43 11:43 WBC 14.2 H (3.8-10.6) k/uL RBC 5.08 (3.80-5.40) m/uL Hgb 13.5 (11.4-16.0) gm/dL Hct 43.2 (34.0-46.0) % MCV 84.9 (80.0-100.0) fL MCH 26.6 (25.0-35.0) pg MCHC 31.3 (31.0-37.0) g/dL RDW 19.5 H (11.5-15.5) % Plt Count 385 (150-450) k/uL MPV 9.1 Neutrophils % 84 % Lymphocytes % 5 % Monocytes % 7 % Eosinophils % 3 % Basophils % 0 % Neutrophils # 11.9 H (1.3-7.7) k/uL Lymphocytes # 0.7 L (1.0-4.8) k/uL Monocytes # 1.1 H (0-1.0) k/uL Eosinophils # 0.5 (0-0.7) k/uL Basophils # 0.0 (0-0.2) k/uL Manual Slide Review Performed Hypochromasia Marked Poikilocytosis Slight Anisocytosis Slight Sodium 136 L (137-145) mmol/L Potassium 4.7 (3.5-5.1) mmol/L Chloride 97 L (98-107) mmol/L Carbon Dioxide 24 (22-30) mmol/L Anion Gap 15 mmol/L BUN 18 H (7-17) mg/dL Creatinine 1.02 (0.52-1.04) mg/dL Est GFR (CKD-EPI)AfAm 69 (>60 ml/min/1.73 sqM) Est GFR (CKD-EPI)NonAf 59 (>60 ml/min/1.73 sqM) Glucose 94 (74-99) mg/dL Lactic Ac Sepsis Rflx Plasma Lactic Acid Mynor (0.7-2.0) mmol/L Calcium 9.4 (8.4-10.2) mg/dL Total Bilirubin 1.0 (0.2-1.3) mg/dL AST 30 (14-36) U/L ALT 28 (4-34) U/L Alkaline Phosphatase 181 H (38-126) U/L Total Protein 7.2 (6.3-8.2) g/dL Albumin 3.1 L (3.5-5.0) g/dL Lipase 50 (23-300) U/L Urine Color Yellow Urine Appearance Clear (Clear) Urine pH 5.5 (5.0-8.0) Ur Specific [place] 1.023 (1.001-1.035) Urine Protein Trace H (Negative) Urine Glucose (UA) 4+ H (Negative) Urine Ketones Negative (Negative) Urine Blood Negative (Negative) Urine Nitrite Negative (Negative) Urine Bilirubin Negative (Negative) Urine Urobilinogen <2.0 (<2.0) mg/dL Ur Leukocyte Esterase Negative (Negative) 07/04/23 07/04/23 Range/Units 11:45 13:47 WBC (3.8-10.6) k/uL RBC (3.80-5.40) m/uL Hgb (11.4-16.0) gm/dL Hct (34.0-46.0) % MCV (80.0-100.0) fL MCH (25.0-35.0) pg MCHC (31.0-37.0) g/dL RDW (11.5-15.5) % Plt Count (150-450) k/uL MPV Neutrophils % % Lymphocytes % % Monocytes % % Eosinophils % % Basophils % % Neutrophils # (1.3-7.7) k/uL Lymphocytes # (1.0-4.8) k/uL Monocytes # (0-1.0) k/uL Eosinophils # (0-0.7) k/uL Basophils # (0-0.2) k/uL Manual Slide Review Hypochromasia Poikilocytosis Anisocytosis Sodium (137-145) mmol/L Potassium (3.5-5.1) mmol/L Chloride (98-107) mmol/L Carbon Dioxide (22-30) mmol/L Anion Gap mmol/L BUN (7-17) mg/dL Creatinine (0.52-1.04) mg/dL Est GFR (CKD-EPI)AfAm (>60 ml/min/1.73 sqM) Est GFR (CKD-EPI)NonAf (>60 ml/min/1.73 sqM) Glucose (74-99) mg/dL Lactic Ac Sepsis Rflx Y Plasma Lactic Acid Mynor 2.3 H* (0.7-2.0) mmol/L Calcium (8.4-10.2) mg/dL Total Bilirubin (0.2-1.3) mg/dL AST (14-36) U/L ALT (4-34) U/L Alkaline Phosphatase (38-126) U/L Total Protein (6.3-8.2) g/dL Albumin (3.5-5.0) g/dL Lipase (23-300) U/L Urine Color Urine Appearance (Clear) Urine pH (5.0-8.0) Ur Specific [place] (1.001-1.035) Urine Protein (Negative) Urine Glucose (UA) (Negative) Urine Ketones (Negative) Urine Blood (Negative) Urine Nitrite (Negative) Urine Bilirubin (Negative) Urine Urobilinogen (<2.0) mg/dL Ur Leukocyte Esterase (Negative) Disposition Clinical Impression: Nausea and vomiting, Hypotension, Abdominal wall skin ulcer, Diarrhea, Leukocytosis Disposition: ADMITTED IP TO THIS [facility] Condition: Stable Is patient prescribed a controlled substance at d/c from ED?: No Time of Disposition: 15:21 Decision to Admit Reason: Admit from EC Decision Date: 07/04/23 Decision Time: 15:21
[2023-07-04] MEDS ORDERED: fentaNYL (PF) 50 MCG/ML 2 ML AMP IVP STA (15:30)
[2023-07-04] MEDS ORDERED: IPRATROPIUM-ALBUTEROL 3 ML NEB INHALATION PRN (15:30)
[2023-07-04] MEDS ORDERED: CEFEPIME 2 GM in SODIUM CHLORIDE 0.9% 100 ML IVPB SCH (16:00)
[2023-07-04] MEDS: APIXABAN 5 MG TAB PO SCH (16:38)
[2023-07-04] MEDS: ATORVASTATIN 40 MG TAB PO SCH (16:38)
[2023-07-04] MEDS: METOPROLOL TARTRATE 25 MG TAB PO SCH (16:38)
[2023-07-04] MEDS ORDERED: NON FORMULARY DRUG (Glucerna Shake 1 CAN Ml) PO SCH (17:00)
[2023-07-04] MEDS ORDERED: NON FORMULARY DRUG (Ensure Clear 1 BOX Ml) PO SCH (17:00)
[2023-07-04 17:59] LABS: Glucose,Whole Blood 147 mg/dL (70-110)
[2023-07-04 21:03] LABS: Glucose,Whole Blood 131 mg/dL (70-110)
[2023-07-04] MEDS: MIDODRINE 5 MG TAB PO SCH (21:04)
[2023-07-04] MEDS: DULoxetine HCL 60 MG CAPSULE.DR PO SCH (21:04)
[2023-07-04] MEDS: INSULIN DETEMIR (LEVEMIR) 100 UNIT/ML SYR SQ SCH (21:04)
[2023-07-04] MEDS: GABAPENTIN 400 MG CAP PO SCH (21:04)
[2023-07-05] MEDS: HYDROcodone/APAP 7.5-325MG 1 EACH TAB PO PRN ×5 (00:38→20:37)
[2023-07-05] MEDS: CEFEPIME 2 GM in SODIUM CHLORIDE 0.9% 100 ML IVPB SCH ×2 (06:11→17:03)
[2023-07-05] MEDS: SODIUM CHLORIDE 0.9% 1,000 ML IV SCH ×3 (06:11→23:34)
[2023-07-05] MEDS: GABAPENTIN 400 MG CAP PO SCH ×3 (06:11→20:37)
[2023-07-05] MEDS: MIDODRINE 5 MG TAB PO SCH ×3 (06:11→20:38)
[2023-07-05 06:19] LABS: Glucose,Whole Blood 83 mg/dL (70-110)
[2023-07-05] MEDS ORDERED: DAPAGLIFLOZIN PROPANEDIOL 10 MG TABLET PO SCH (08:00)
[2023-07-05] MEDS: PANTOPRAZOLE 40 MG TABLET PO SCH (08:15)
[2023-07-05] MEDS: DULoxetine HCL 60 MG CAPSULE.DR PO SCH ×2 (08:16→20:37)
[2023-07-05] MEDS: APIXABAN 5 MG TAB PO SCH ×2 (08:16→17:02)
[2023-07-05] MEDS: METOPROLOL TARTRATE 25 MG TAB PO SCH ×2 (08:16→17:02)
--- NOTE | 2023-07-05 09:19 | P.CONS ---
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 difficile at that facility 47 the patient has been evaluated on presentation to the hospital patient was afebrile and no fever has been recorded subsequently patient was not tachycardic hypotensive or hypoxic patient did have white blood 14.2 with a left shift lactic acid was mildly elevated creatinine was normal liver enzymes are normal urine has been negative patient did have a abdominal pelvis CT decrease size of the subcutaneous fluid collection within the right lower abdominal wall no acute findings patient was started on cefepime on the basis of previous consult infectious disease was consulted for further ma nagement, most information has been obtained from review the chart as the patient herself was not a very good historian at time of evaluation was not very clear about her reason for coming to the ER denies any headache no no chest pain shortness of breath no cough or any worsening pain to the right lower abdominal wound area Past Medical History Past Medical History: Coronary Artery Disease (CAD), Diabetes Mellitus, Deep Vein Thrombosis (DVT), Vascular Disorder Additional Past Medical History / Comment(s): SKIN CA. 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, NEUROPATHY LEGS & FEET, USING WALKER, .Mutiple DVT,mesentaric thrombosis x2 & PE, PAD, chronic pain syndrome, ddd lumbar region w/radiculopathy, HISTORY OF FALL 01/07/20 , tore rt rotator cuff, pancreatitis, fatty liver, Last Myocardial Infarction Date:: 2010 History of Any Multi-Drug Resistant Organisms: None Reported Past Surgical History: Section, Cholecystectomy, Heart Catheterization, Heart Catheterization With Stent, Orthopedic Surgery, Tonsillectomy, Tubal Ligation Additional Past Surgical History / Comment(s): 11 Stents in left leg, fistula left thigh, full mouth teeth extraction, TRAPEASE VENA CAVA FILTER, carpel tunnel, heart stents x4 rca and lad, tumor removal from uterus. Genital warts removed, INGRID. Skin cancer removed from neck, rt great toe amputated, colonoscopy, rt rotator, left shoulder replacement, cervial fusion, rt calf debridement, rt calf skin graft (May 2023) Past Anesthesia/Blood Transfusion Reactions: No Reported Reaction Date of Last Stent Placement:: Mar 2023 Past Psychological History: Anxiety, Depression Smoking Status: Current every day smoker Past Alcohol Use History: None Reported Past Drug Use History: None Reported - Past Family History Mother Family Medical History: Cancer, Congestive Heart Failure (CHF), Diabetes Mellitus, Myocardial Infarction ([place]) Additional Family Medical History / Comment(s): UTERINE CANCER Father Family Medical History: Coronary Artery Disease (CAD), Myocardial Infarction ([place]) Additional Family Medical History / Comment(s): Father at age 70. Sister(s) Family Medical History: Myocardial Infarction ([place]) Additional Family Medical History / Comment(s): Patient has one sister with myocardial infarction at age 55. Son(s) Family Medical History: Deep Vein Thrombosis (DVT), Pulmonary Embolus Additional Family Medical History / Comment(s): Patient has 2 sons and one has history of DVT and pulmonary embolism. Medications and Allergies Home Medications Medication Instructions Recorded Confirmed Type Docusate [Colace] 100 mg PO DAILY@0800 11/14/21 07/04/23 History Rosuvastatin [Crestor] 20 mg PO DAILY@1700 01/08/23 07/04/23 History Ergocalciferol (Vitamin D2) 1,250 mcg PO GUERRERO@79904/01/23 07/04/23 History [Drisdol (50,000 Iu)] Melatonin 3 mg PO HS@2100 04/01/23 07/04/23 History Nitroglycerin Sl Tabs [Nitrostat] 0.4 mg SL Q5M PRN 04/01/23 07/04/23 History Omeprazole [PriLOSEC] 20 mg PO DAILY@0800 04/01/23 07/04/23 History Potassium Chloride ER [K-Dur 10] 10 meq PO BID@0800,1700 04/22/23 07/04/23 History Collagenase [Santyl Ointment] 1 applic TOPICAL DAILY each 05/18/23 07/04/23 Rx Apixaban [Eliquis] 5 mg PO BID@0800,1700 05/20/23 07/04/23 History Clopidogrel [Plavix] 75 mg PO DAILY@1100 05/20/23 07/04/23 History Ipratropium-Albuterol Nebulize 3 ml INHALATION RT-Q6H PRN each 06/14/23 3 Rx [Duoneb 0.5 mg-3 mg/3 ml Soln] ALPRAZolam [Xanax] 0.25 mg PO BID PRN 3 Days #6 tab 06/18/23 07/04/23 Rx DULoxetine HCL [Cymbalta] 60 mg PO BID@0800,2100 07/04/23 07/04/23 History Dapagliflozin Propanediol [Farxiga] 10 mg PO DAILY@0800 07/04/23 07/04/23 History Ensure Clear 237 ml PO BID@0800,1700 07/04/23 07/04/23 History Ferrous Sulfate [Feosol] 325 mg PO BID@0800,1700 07/04/23 07/04/23 History Gabapentin [Neurontin] 400 mg PO TID@0600,1400,2200 07/04/23 07/04/23 History Glucerna Shake 237 ml PO DAILY@17007/04/23 07/04/23 History HYDROcodone/APAP 7.5-325MG [[place] 1 tab PO Q4-6H PRN 07/04/23 07/04/23 History 7.5-325] INSULIN ASPART (NovoLOG) [NovoLOG See Protocol SQ 07/04/23 07/04/23 History (formulary)] ACHS@07,11,1630,2129 Insulin Glargine,Hum.rec.anlog 15 units SQ HS@212907/04/23 07/04/23 History [Lantus Solostar Pen] Liquacel 30 ml PO BID@0800,1700 07/04/23 07/04/23 History Magic Cup 1 dose PO BID-W/MEALS@12,17 07/04/23 07/04/23 History Magnesium Hydroxide [Milk of 7,200 mg PO DAILY PRN 07/04/23 07/04/23 History Magnesia Concentrate] Metoprolol Tartrate [Lopressor] 25 mg PO BID@0800,1700 07/04/23 07/04/23 History Midodrine [ProAmatine] 5 mg PO TID@0600,1400,2200 07/04/23 07/04/23 History Na Phos,M-B/Na Phos,Di-Ba [Fleet 133 ml RECTAL DAILY PRN 07/04/23 07/04/23 History Adult] bisacodyL [Dulcolax] 10 mg RECTAL DAILY PRN 07/04/23 07/04/23 History Allergies Allergy/AdvReac Type Severity Reaction Status Date / Time vancomycin Allergy Rash/Hives/and Verified 07/04/23 14:56 vomiting diarrhea/Swelling Physical Exam Vitals: Vital Signs Temp Pulse Resp BP Pulse Ox 07/04/23 16:38 68 20 103/61 95 07/04/23 15:00 99 16 82/48 95 07/04/23 14:00 75 16 92/60 98 07/04/23 13:26 93 20 93/40 95 07/04/23 11:51 110 H 20 93/46 94 L 07/04/23 11:21 97.7 F 105 H 20 87/56 96 Intake and Output 07/04/23 07/04/23 07/04/23 06:59 14:59 22:59 Other: Weight 79.832 kg Results CBC & Chem 7: 07/04/23 11:43 07/04/23 11:43 Labs: Abnormal Lab Results - Last 24 Hours (Table) 07/04/23 07/04/23 07/04/23 Range/Units 11:43 11:43 11:43 WBC 14.2 H (3.8-10.6) k/uL RDW 19.5 H (11.5-15.5) % Neutrophils # 11.9 H (1.3-7.7) k/uL Lymphocytes # 0.7 L (1.0-4.8) k/uL Monocytes # 1.1 H (0-1.0) k/uL Sodium 136 L (137-145) mmol/L Chloride 97 L (98-107) mmol/L BUN 18 H (7-17) mg/dL Plasma Lactic Acid [place] (0.7-2.0) mmol/L Alkaline Phosphatase 181 H (38-126) U/L Albumin 3.1 L (3.5-5.0) g/dL Urine Protein Trace H (Negative) Urine Glucose (UA) 4+ H (Negative) 07/04/23 Range/Units 11:45 WBC (3.8-10.6) k/uL RDW (11.5-15.5) % Neutrophils # (1.3-7.7) k/uL Lymphocytes # (1.0-4.8) k/uL Monocytes # (0-1.0) k/uL Sodium (137-145) mmol/L Chloride (98-107) mmol/L BUN (7-17) mg/dL Plasma Lactic Acid [place] 2.3 H* (0.7-2.0) mmol/L Alkaline Phosphatase (38-126) U/L Albumin (3.5-5.0) g/dL Urine Protein (Negative) Urine Glucose (UA) (Negative) Assessment and Plan Plan: 1patient presented to hospital with mental status changes and this patient did have a mild elevated white count patient also have a 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 however CT abdominal pelvis today shows overall decrease in the fluid in that location and no significant redness around the wound was noticed minimal soft tissue at the base clinic suspicious know for any worsening wound infection to the right lower abdominal/groin area, the patient right [id number] potation site wound is healing well with sara intact urine has been negative, did have mild elevated white count 2-local wound care to the right groin wound with Medihoney followed by moist dressing change daily 3-continue empiric cefepime while waiting for the cultures to finalize We will follow on clinical condition and cultures to further adjust medication if needed Thank you for this consultation we will follow the patient along with you Dictation was produced using 115 network disks dictation software. please excuse any grammatical, word or spelling errors. Time with Patient: Greater than 30
[2023-07-05 09:54] LABS: Anisocytosis Slight; Basophils % (A) 0 %; Eosinophils # (A) 0.2 k/uL (0-0.7); Eosinophils % (A) 2 %; HCT 33.8 % (34.0-46.0); Hypochromasia Marked; Lymphocytes # (A) 1.1 k/uL (1.0-4.8); Lymphocytes % (A) 15 %; MCH 26.1 pg (25.0-35.0); MCHC 30.5 g/dL (31.0-37.0); MCV 85.7 fL (80.0-100.0); Mean Platelet Volume 8.3; Monocytes # (A) 0.4 k/uL (0-1.0); Monocytes % (A) 5 %; Neutrophils # (A) 5.6 k/uL (1.3-7.7); Neutrophils % (A) 77 %; Platelet Count 251 k/uL (150-450); Poikilocytosis Slight; RBC 3.95 m/uL (3.80-5.40); RDW 19.7 % (11.5-15.5); WBC 7.3 k/uL (3.8-10.6)
[2023-07-05 10:15] LABS: African American GFR (CKD) >90 (>60 ml/min/1.73 sqM); Anion Gap 9 mmol/L; Blood Urea Nitrogen 15 mg/dL (7-17); Calcium 7.6 mg/dL (8.4-10.2); Carbon Dioxide 21 mmol/L (22-30); Chloride 104 mmol/L (98-107); Glucose 68 mg/dL (74-99); Non-African American GFR(CKD) 81 (>60 ml/min/1.73 sqM); Potassium 3.6 mmol/L (3.5-5.1); Sodium 134 mmol/L (137-145)
[2023-07-05 10:17] LABS: HGB 10.3 gm/dL (11.4-16.0)
[2023-07-05 11:02] LABS: Glucose,Whole Blood 75 mg/dL (70-110)
[2023-07-05 11:28] LABS: Glucose,Whole Blood 93 mg/dL (70-110)
[2023-07-05] MEDS: CLOPIDOGREL 75 MG TAB PO SCH (11:38)
[2023-07-05] MEDS: ALPRAZolam 0.25 MG TAB PO PRN (11:44)
--- NOTE | 2023-07-05 13:05 | P.GSCN ---
History of Present Illness Consult date: 07/05/23 Reason for Consult: Status post right eubms-yoi-wrbv amputation, need sara out Requesting physician: Tramiane Tejeda History of present illness: 63-year-old female who was brought in by EMS from [facility] with concerns of nausea vomiting, diarrhea and hallucinations. Patient is well known to vascular surgical services and his most recent surgery status post right ncwln-bhx-fjag amputation done on 06/07/[address] Mendoza. Patient also has history of right femoral to tibial vein bypass graft with right femoral thromboendarterectomy and previous right inguinal hematoma. Patient still has a wound to the right groin that is healing well with small amount of or drainage. She had an appointment scheduled yesterday with Dr. Pardo as a postop follow- up however that appointment was not made and she was brought to the emergency department. She still has sara in place to the right amputation site. Apparently patient has been having nausea and vomiting for last couple days duration as well as diarrhea. She's been afebrile. C. diff is negative. Patient also states that she has not been eating or drinking well. She is very weepy. She denies any nausea or vomiting currently. States that her voice has been raspy denies any sore throat, shortness of breath, chest pain, abdominal pain. WBC 7.3 hemoglobin 10.3 platelet count 251,000 sodium 134 potassium 3.6 BUN 15 creatinine 0.79 Review of Systems A 14 point review systems was completed all pertinent positives and negatives as stated in the HPI. Past Medical History Past Medical History: Coronary Artery Disease (CAD), Diabetes Mellitus, Deep Vein Thrombosis (DVT), Vascular Disorder Additional Past Medical History / Comment(s): SKIN CA. 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, NEUROPATHY LEGS & FEET, USING WALKER, .Mutiple DVT,mesentaric thrombosis x2 & PE, PAD, chronic pain syndrome, ddd lumbar region w/radic ulopathy, HISTORY OF FALL 01/07/20 , tore rt rotator cuff, pancreatitis, fatty liver, Last Myocardial Infarction Date:: 2010 History of Any Multi-Drug Resistant Organisms: None Reported Past Surgical History: Section, Cholecystectomy, Heart Catheterization, Heart Catheterization With Stent, Orthopedic Surgery, Tonsillectomy, Tubal Ligation Additional Past Surgical History / Comment(s): 11 Stents in left leg, fistula left thigh, full mouth teeth extraction, TRAPEASE VENA CAVA FILTER, carpel tunnel, heart stents x4 rca and lad, tumor removal from uterus. Genital warts removed, INGRID. Skin cancer removed from neck, rt great toe amputated, colonoscopy, rt rotator, left shoulder replacement, cervial fusion, rt calf debridement, rt calf skin graft (May 2023) Past Anesthesia/Blood Transfusion Reactions: No Reported Reaction Date of Last Stent Placement:: Mar 2023 Past Psychological History: Anxiety, Depression Additional Psychological History / Comment(s): Depression r/t health issues. Smoking Status: Current every day smoker Past Alcohol Use History: None Reported Additional Past Alcohol Use History / Comment(s): STARTED SMOKING IN 1988 SMOKES 1/2 PPD Past Drug Use History: None Reported - Past Family History Mother Family Medical History: Cancer, Congestive Heart Failure (CHF), Diabetes Mellitus, Myocardial Infarction ([place]) Additional Family Medical History / Comment(s): UTERINE CANCER Father Family Medical History: Coronary Artery Disease (CAD), Myocardial Infarction ([place]) Additional Family Medical History / Comment(s): Father at age 70. Sister(s) Family Medical History: Myocardial Infarction ([place]) Additional Family Medical History / Comment(s): Patient has one sister with myocardial infarction at age 55. Son(s) Family Medical History: Deep Vein Thrombosis (DVT), Pulmonary Embolus Additional Family Medical History / Comment(s): Patient has 2 sons and one has history of DVT and pulmonary embolism. Medications and Allergies Home Medications Medication Instructions Recorded Confirmed Type Docusate [Colace] 100 mg PO DAILY@0800 11/14/21 07/04/23 History Rosuvastatin [Crestor] 20 mg PO DAILY@1700 01/08/23 07/04/23 History Ergocalciferol (Vitamin D2) 1,250 mcg PO GUERRERO@79904/01/23 07/04/23 History [Drisdol (50,000 Iu)] Melatonin 3 mg PO HS@209904/01/23 07/04/23 History Nitroglycerin Sl Tabs [Nitrostat] 0.4 mg SL Q5M PRN 04/01/23 07/04/23 History Omeprazole [PriLOSEC] 20 mg PO DAILY@0804/01/23 07/04/23 History Potassium Chloride ER [K-Dur 10] 10 meq PO BID@0800,1700 04/22/23 07/04/23 History Collagenase [Santyl Ointment] 1 applic TOPICAL DAILY each 05/18/23 07/04/23 Rx Apixaban [Eliquis] 5 mg PO BID@0800,1700 05/20/23 07/04/23 History Clopidogrel [Plavix] 75 mg PO DAILY@1100 05/20/23 07/04/23 History Ipratropium-Albuterol Nebulize 3 ml INHALATION RT-Q6H PRN each 06/14/23 07/04/23 Rx [Duoneb 0.5 mg-3 mg/3 ml Soln] ALPRAZolam [Xanax] 0.25 mg PO BID PRN 3 Days #6 tab 06/18/23 07/04/23 Rx DULoxetine HCL [Cymbalta] 60 mg PO BID@0800,2100 07/04/23 07/04/23 History Dapagliflozin Propanediol [Farxiga] 10 mg PO DAILY@0800 07/04/23 07/04/23 History Ensure Clear 237 ml PO BID@0800,1700 07/04/23 07/04/23 History Ferrous Sulfate [Feosol] 325 mg PO BID@0800,1700 07/04/23 07/04/23 History Gabapentin [Neurontin] 400 mg PO TID@0600,1400,2200 07/04/23 07/04/23 History Glucerna Shake 237 ml PO DAILY@1700 07/04/23 07/04/23 History HYDROcodone/APAP 7.5-325MG [[place] 1 tab PO Q4-6H PRN 07/04/23 07/04/23 History 7.5-325] INSULIN ASPART (NovoLOG) [NovoLOG See Protocol SQ 07/04/23 07/04/23 History (formulary)] ACHS@07,11,1630,0 Insulin Glargine,Hum.rec.anlog 15 units SQ HS@212907/04/23 07/04/23 History [Lantus Solostar Pen] Liquacel 30 ml PO BID@0800,1700 07/04/23 07/04/23 History Magic Cup 1 dose PO BID-W/MEALS@12,17 07/04/23 07/04/23 History Magnesium Hydroxide [Milk of 7,200 mg PO DAILY PRN 07/04/23 07/04/23 History Magnesia Concentrate] Metoprolol Tartrate [Lopressor] 25 mg PO BID@0800,1700 07/04/23 07/04/23 History Midodrine [ProAmatine] 5 mg PO TID@0600,1400,2200 07/04/23 07/04/23 History Na Phos,M-B/Na Phos,Di-Ba [Fleet 133 ml RECTAL DAILY PRN 07/04/23 07/04/23 History Adult] bisacodyL [Dulcolax] 10 mg RECTAL DAILY PRN 07/04/23 07/04/23 History Allergies Allergy/AdvReac Type Severity Reaction Status Date / Time vancomycin Allergy Rash/Hives/and Verified 07/04/23 14:56 vomiting diarrhea/Swelling Surgical - Exam Vital Signs Temp Pulse Resp BP Pulse Ox 97.7 F 105 H 20 87/56 96 07/04/23 11:21 07/04/23 11:21 07/04/23 11:21 07/04/23 11:21 07/04/23 11:21 General appearance: The patient is alert, oriented, appears in no acute distr ess. HET: Head is normocephalic and atraumatic. Pupils are equal and reactive. Neck: Supple. Heart: Regular. Lungs: Equal expansion, normal respiratory effort. Abdomen: Soft, nontender, right lower abdomen with small palpable hematoma, nondistended. Extremities: Right groin with open wound with minimal clear drainage, no surrounding erythema. Right amputation stump with sara well approximated medial aspect with some redness but no drainage. Neurological: No focal deficits. Patient is very weepy. Results - Labs 07/05/23 08:56 07/05/23 08:56 Abnormal Lab Results - Last 24 Hours (Table) 07/04/23 07/04/23 07/04/23 Range/Units 11:43 11:43 11:43 WBC 14.2 H (3.8-10.6) k/uL RDW 19.5 H (11.5-15.5) % Neutrophils # 11.9 H (1.3-7.7) k/uL Lymphocytes # 0.7 L (1.0-4.8) k/uL Monocytes # 1.1 H (0-1.0) k/uL Sodium 136 L (137-145) mmol/L Chloride 97 L (98-107) mmol/L BUN 18 H (7-17) mg/dL POC Glucose (mg/dL) (70-110) mg/dL Plasma Lactic Acid Mynor (0.7-2.0) mmol/L Alkaline Phosphatase 181 H (38-126) U/L Albumin 3.1 L (3.5-5.0) g/dL Urine Protein Trace H (Negative) Urine Glucose (UA) 4+ H (Negative) Stool Occult Blood (Negative) 07/04/23 07/04/23 07/04/23 Range/Units 11:45 17:58 20:30 WBC (3.8-10.6) k/uL RDW (11.5-15.5) % Neutrophils # (1.3-7.7) k/uL Lymphocytes # (1.0-4.8) k/uL Monocytes # (0-1.0) k/uL Sodium (137-145) mmol/L Chloride (98-107) mmol/L BUN (7-17) mg/dL POC Glucose (mg/dL) 147 H (70-110) mg/dL Plasma Lactic Acid Mynor 2.3 H* (0.7-2.0) mmol/L Alkaline Phosphatase (38-126) U/L Albumin (3.5-5.0) g/dL Urine Protein (Negative) Urine Glucose (UA) (Negative) Stool Occult Blood Positive H (Negative) 07/04/23 Range/Units 21:00 WBC (3.8-10.6) k/uL RDW (11.5-15.5) % Neutrophils # (1.3-7.7) k/uL Lymphocytes # (1.0-4.8) k/uL Monocytes # (0-1.0) k/uL Sodium (137-145) mmol/L Chloride (98-107) mmol/L BUN (7-17) mg/dL POC Glucose (mg/dL) 131 H (70-110) mg/dL Plasma Lactic Acid Mynor (0.7-2.0) mmol/L Alkaline Phosphatase (38-126) U/L Albumin (3.5-5.0) g/dL Urine Protein (Negative) Urine Glucose (UA) (Negative) Stool Occult Blood (Negative) Diabetes panel 07/04/23 Range/Units 11:43 Sodium 136 L (137-145) mmol/L Potassium 4.7 (3.5-5.1) mmol/L Chloride 97 L (98-107) mmol/L Carbon Dioxide 24 (22-30) mmol/L BUN 18 H (7-17) mg/dL Creatinine 1.02 (0.52-1.04) mg/dL Glucose 94 (74-99) mg/dL Calcium 9.4 (8.4-10.2) mg/dL AST 30 (14-36) U/L ALT 28 (4-34) U/L Alkaline Phosphatase 181 H (38-126) U/L Total Protein 7.2 (6.3-8.2) g/dL Albumin 3.1 L (3.5-5.0) g/dL Calcium panel 07/04/23 Range/Units 11:43 Calcium 9.4 (8.4-10.2) mg/dL Albumin 3.1 L (3.5-5.0) g/dL Pituitary panel 07/04/23 Range/Units 11:43 Sodium 136 L (137-145) mmol/L Potassium 4.7 (3.5-5.1) mmol/L Chloride 97 L (98-107) mmol/L Carbon Dioxide 24 (22-30) mmol/L BUN 18 H (7-17) mg/dL Creatinine 1.02 (0.52-1.04) mg/dL Glucose 94 (74-99) mg/dL Calcium 9.4 (8.4-10.2) mg/dL Adrenal panel 07/04/23 Range/Units 11:43 Sodium 136 L (137-145) mmol/L Potassium 4.7 (3.5-5.1) mmol/L Chloride 97 L (98-107) mmol/L Carbon Dioxide 24 (22-30) mmol/L BUN 18 H (7-17) mg/dL Creatinine 1.02 (0.52-1.04) mg/dL Glucose 94 (74-99) mg/dL Calcium 9.4 (8.4-10.2) mg/dL Total Bilirubin 1.0 (0.2-1.3) mg/dL AST 30 (14-36) U/L ALT 28 (4-34) U/L Alkaline Phosphatase 181 H (38-126) U/L Total Protein 7.2 (6.3-8.2) g/dL Albumin 3.1 L (3.5-5.0) g/dL - Imaging Abdominal x-ray: report reviewed (Decreased size of the subcutaneous fluid collection within the right lower abdominal wall. No acute findings otherwise seen. Additional chronic and incidental changes noted above) Assessment and Plan Assessment: 1. Nausea and vomiting 2. Diarrhea 3. Confusion, hallucinations 4. Patient is postop for right aivhg-thw-mygj amputation 5. Right groin wound status post hematoma evacuation 6. History of peripheral arterial disease status post revascularization 7. Coronary artery disease status post stenting mid RCA 8. Diabetes mellitus 9. History of DVTs Plan: 1. [place] from a right vfenr-gpi-fbhe amputation surgical site removed 2. Opticell silver to right groin 3. No further intervention indicated from vascular surgery 4. Continue with medical management Thank you for this consultation, we will sign off at this time. The impression and plan of care has been dictated as directed. I performed a history and examination of this patient, discussed the same with the dictator. I agree with the dictator's note ,documented as a scribe. Any additional findings or plans will be noted.
[2023-07-05] MEDS: BENZOCAINE/MENTHOL LOZENG 1 EACH LOZENGE MUCOUS MEM PRN (14:49)
[2023-07-05 16:13] LABS: Glucose,Whole Blood 91 mg/dL (70-110)
[2023-07-05] MEDS: ATORVASTATIN 40 MG TAB PO SCH (17:03)
--- NOTE | 2023-07-05 17:24 | P.PN ---
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 diff negative On today's evaluation that is 07/05/2023 the patient is more awake and alert today, patient denies having any fever or chills, the patient is breathing comfortably on room air and no need for oxygen. The patient denies shortness of breath denies any chest pain or cough, patient denies nausea/vomiting and no worsening diarrhea reported. Patient white count normalized to 7.3, creatinine 0.79, stool for C. diff negative Objective - Vital Signs Vital signs: Vital Signs Temp 97.4 F L 07/05/23 11:48 Pulse 65 07/05/23 11:48 Resp 18 07/05/23 11:48 BP 136/78 07/05/23 11:48 Pulse Ox 98 07/05/23 11:48 FiO2 Intake & Output 07/04/23 07/05/23 07/05/23 18:59 06:59 18:59 Intake Total 780 225 Output Total 500 Balance 280 225 Weight 79.832 kg 79.832 kg Intake: Oral 780 225 Output: Urine 500 Other: Voiding Method Diaper Incontinent # Voids 2 1 # Bowel Movements 1 - Exam GENERAL DESCRIPTION: Middle-age female lying in bed in no distress RESPIRATORY SYSTEM: Unlabored breathing , clear to auscultation anteriorly HEART: S1 S2 regular rate and rhythm , ABDOMEN: Soft , right lower abdominal/groin wound with no significant slough tissue surrounding redness EXTREMITIES: Right AKA stump post removal of sara minimal erythema at the medial and - Labs CBC & Chem 7: 07/05/23 08:56 07/05/23 08:56 Labs: Abnormal Lab Results - Last 24 Hours (Table) 07/04/23 07/04/23 07/04/23 Range/Units 11:43 11:45 17:58 Hgb (11.4-16.0) gm/dL Hct (34.0-46.0) % MCHC (31.0-37.0) g/dL RDW (11.5-15.5) % Neutrophils # 11.9 H (1.3-7.7) k/uL Lymphocytes # 0.7 L (1.0-4.8) k/uL Monocytes # 1.1 H (0-1.0) k/uL Sodium (137-145) mmol/L Carbon Dioxide (22-30) mmol/L Glucose (74-99) mg/dL POC Glucose (mg/dL) 147 H (70-110) mg/dL Plasma Lactic Acid Mynor 2.3 H* (0.7-2.0) mmol/L Calcium (8.4-10.2) mg/dL Stool Occult Blood (Negative) 07/04/23 07/04/23 07/05/23 Range/Units 20:30 21:00 08:56 Hgb 10.3 L D (11.4-16.0) gm/dL Hct 33.8 L (34.0-46.0) % MCHC 30.5 L (31.0-37.0) g/dL RDW 19.7 H (11.5-15.5) % Neutrophils # (1.3-7.7) k/uL Lymphocytes # (1.0-4.8) k/uL Monocytes # (0-1.0) k/uL Sodium (137-145) mmol/L Carbon Dioxide (22-30) mmol/L Glucose (74-99) mg/dL POC Glucose (mg/dL) 131 H (70-110) mg/dL Plasma Lactic Acid Mynor (0.7-2.0) mmol/L Calcium (8.4-10.2) mg/dL Stool Occult Blood Positive H (Negative) 07/05/23 Range/Units 08:56 Hgb (11.4-16.0) gm/dL Hct (34.0-46.0) % MCHC (31.0-37.0) g/dL RDW (11.5-15.5) % Neutrophils # (1.3-7.7) k/uL Lymphocytes # (1.0-4.8) k/uL Monocytes # (0-1.0) k/uL Sodium 134 L (137-145) mmol/L Carbon Dioxide 21 L (22-30) mmol/L Glucose 68 L (74-99) mg/dL POC Glucose (mg/dL) (70-110) mg/dL Plasma Lactic Acid Mynor (0.7-2.0) mmol/L Calcium 7.6 L (8.4-10.2) mg/dL Stool Occult Blood (Negative) Assessment and Plan (1) Abdominal wall skin ulcer Current Visit: Yes Status: Acute Code(s): L98.499 - NON-PRESSURE CHRONIC ULCER OF SKIN OF SITES W UNSP SEVERITY SNOMED Code(s): 720221213 (2) Leukocytosis Current Visit: Yes Status: Acute Code(s): D72.829 - ELEVATED WHITE BLOOD CELL COUNT, UNSPECIFIED SNOMED Code(s): 278095002 Plan: 1patient presented to hospital with mental status changes and this patient did have a mild elevated white count patient also have a 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 however CT abdominal pelvis today shows overall decrease in the fluid in that location and no significant redness around the wound was noticed minimal soft tissue at the base clinic suspicious know for any worsening wound infection to the right lower abdominal/groin area, the patient right [id number] potation site post removal of sara minimal erythema no drainage 2-local wound care to the right groin wound will be switched over to Aquacel silver dressing 3-patient to continue cefepime while waiting for the cultures to finalize Son at the bedside questions were answered Dictation was produced using [employer] dictation software. please excuse any grammatical, word or spelling errors. Time with Patient: Less than 30
[2023-07-05] MEDS ORDERED: ZINC OXIDE PASTE (Z-GUARD) 1 APPLIC APPLIC TOPICAL PRN (17:54)
[2023-07-05 20:09] LABS: Glucose,Whole Blood 109 mg/dL (70-110)
[2023-07-05] MEDS: INSULIN DETEMIR (LEVEMIR) 100 UNIT/ML SYR SQ SCH (20:37)
[2023-07-06] MEDS: HYDROcodone/APAP 7.5-325MG 1 EACH TAB PO PRN ×6 (00:44→20:02)
[2023-07-06] MEDS: BENZOCAINE/MENTHOL LOZENG 1 EACH LOZENGE MUCOUS MEM PRN ×3 (01:00→12:29)
[2023-07-06] MEDS: SODIUM CHLORIDE 0.9% 1,000 ML IV SCH (04:20)
[2023-07-06] MEDS: CEFEPIME 2 GM in SODIUM CHLORIDE 0.9% 100 ML IVPB SCH ×2 (04:53→16:12)
[2023-07-06] MEDS: MIDODRINE 5 MG TAB PO SCH ×3 (04:53→22:27)
[2023-07-06] MEDS: GABAPENTIN 400 MG CAP PO SCH ×3 (04:54→22:27)
[2023-07-06 06:13] LABS: Glucose,Whole Blood 48 mg/dL (70-110)
[2023-07-06 06:39] LABS: Glucose,Whole Blood 54 mg/dL (70-110)
[2023-07-06 07:01] LABS: Glucose,Whole Blood 49 mg/dL (70-110)
[2023-07-06] MEDS ORDERED: DEXTROSE 50% SYRINGE 50 ML IVP STA (07:03)
[2023-07-06 07:39] LABS: Glucose,Whole Blood 94 mg/dL (70-110)
[2023-07-06] MEDS: DULoxetine HCL 60 MG CAPSULE.DR PO SCH ×2 (09:23→20:02)
[2023-07-06] MEDS: APIXABAN 5 MG TAB PO SCH ×2 (09:23→16:12)
[2023-07-06] MEDS: METOPROLOL TARTRATE 25 MG TAB PO SCH ×2 (09:23→16:12)
[2023-07-06] MEDS: PANTOPRAZOLE 40 MG TABLET PO SCH (09:23)
[2023-07-06] MEDS: ALPRAZolam 0.25 MG TAB PO PRN (09:29)
[2023-07-06 11:30] LABS: Glucose,Whole Blood 123 mg/dL (70-110)
[2023-07-06] MEDS: CLOPIDOGREL 75 MG TAB PO SCH (11:44)
--- NOTE | 2023-07-06 16:06 | P.HPIM ---
History of Present Illness H&P Date: 07/04/23 Chief Complaint: Abdominal pain HISTORY OF PRESENT ILLNESS This is a 63-year-old female patient of mine with history of CAD with multiple cardiac stents in mid RCA, mid LAD, obtuse marginal branch and followed by Dr. Bill closely, peripheral artery disease with previous stenting done as well has amputation of the right great toe secondary to osteomyelitis, CVA with no residual deficits, hypertension, COPD, diabetes mellitus type 2, previous multiple DVT and PE requiring chronic anticoagulation on eliquis, history of GI bleed secondary to antral gastritis, esophagitis, vitamin D deficiency, autonomic hypotension on midodrine, history of left humerus fracture. resume with patient April 02 through April 15 at which time she presented to the hospital due to right second and fifth toe ischemic change. A CT angiogram showed evidence of occlusion of the right superficial femoral artery and 2 occluded segments 1 in the mid thigh about 3 cm and another into the right popliteal artery at 13 cm length, occlusion of the right iliac artery into the common femoral artery. Patient was seen in consultation by vascular surgery. Arterial ultrasound showed lower extremity abnormal on the right with HERMINIA suggests severe atherosclerotic disease. Critical stenosis not excluded. Plan for open bypass surgery with vascular surgery was made but a cardiology consult was requested. Patient was seen by Dr. Bill and had chest pain complaint and Due to critical in-stent restenosis and subsequently underwent cardiac catheterization which revealed critical in-stent restenosis of the RCA and Dr. Bill present performed stenting of the RCA. There was also intermediate disease in the first obtuse marginal branch of the left circumflex, intermediate disease involving the LAD and mildly elevated left sided filling pressures after that patient developed to have significant hematoma require blood for sedation and ICU management, and after that underwent incision and drainage of the hematoma, and she also underwent the bright bed of the Achilles wound after she has had a graft that did not last much patient was treated with IV antibiotic and eventually the decision was made to go for a right [id number] amputation as a definitive treatment for her peripheral vascular disease patient had that and she was sent to [facility] for physical therapy rehabilitation, while she was at [facility] patient developed to have a significant Covid 19 infection as part of the epidemic in the [facility], and the patient was treated patient has been complaining of increased hypotension with generalized weakness and dizziness, initially she was started on Midrin 5 minute gram orally 3 times every day, she was taken off her RISHI inhibitor, and the patient continued to deteriorate, she was complaining of increased abdominal pain she was sent to the emergency department at [facility] and she was found to have a minimal redness at the site of the stump where her sara are, and also she was complaining of increased abdominal pain, so she was admitted to the hospital for evaluation and treatment, she did have leukocytosis, she was started on IV antibiotic in the form of cefepime, and she was seen in consultation by vascular surgery for further recommendation and treatment she also did appear to have this right groin wound that has been chronic since she had the debridement of the hematoma and also was seen and evaluated by vascular surgery was recommended to continue with current treatment plan. REVIEW OF SYSTEMS Constitutional: positive for fever, No chills, no night sweats. Reports weight loss. Reports weakness, Reports fatigue no lethargy. NO daytime sleepiness. HEENT: No headache. positive for dizziness. Reports difficulty swallowing. No nasal drainage or congestion. No epistaxis. No sore throat. Lungs: No shortness of breath, no cough, no sputum production. No wheezing. Cardiovascular: No chest pain, no lower extremity edema. No palpitations. No paroxysmal nocturnal dyspnea. No orthopnea. No lightheadedness or dizziness. No syncopal episodes. Abdominal: Reports abdominal pain. Reports nausea, no vomiting. no diarrhea. No constipation. No bloody or tarry stools. Reports loss of appetite. Genitourinary: No dysuria, increased frequency, urgency. No urinary retention. Musculoskeletal: No myalgias. positive for muscle weakness, reports balance issues. Integumentary: Right AKA with minima erythema to the side no drainage, right groin non healing wound Neurologic: No aphasia. No facial droop. No change in mentation. No head injury. No headache. No paralysis. No paresthesia. Psychiatric: Reports depression. Reports anxiety. No mood swings. Endocrine: abnormal blood sugars. positive for weight change. No excessive sweating or thirst. No cold intolerance. MEDICAL HISTORY Coronary artery disease with multiple cardiac stents in the RCA, mid LAD, obtuse marginal branch Peripheral artery disease with previous stenting Right great toe osteomyelitis status post amputation CVA with no residual deficits Hypertension Hyperlipidemia COPD Diabetes mellitus type 2 Multiple DVT and PE on chronic anticoagulation History of GI bleed secondary to antral gastritis and esophagitis Vitamin D deficiency Orthostatic hypotension SURGICAL HISTORY Cholecystectomy Tonsillectomy Tubal ligation 11 stents in the left leg Full teeth extraction Trapeze vena cava filter Carpal tunnel release Coronary artery stents 4 to the RCA, LAD, obtuse marginal Tumor removed from the uterus will INGRID Skin cancer removal from the neck Right great toe amputation Colonoscopy and EGD I&D right groin abscess Anterior approach cervical disc fusion. SOCIAL HISTORY Patient is a smoker of about half a pack per day since 1993 and quit prior to her cervical surgery. No alcohol use, illicit drug use. Patient lives at home with her . FAMILY HISTORY Mother has history of uterine cancer, diabetes, myocardial infarction, heart failure. Father at age 70 from myocardial infarction. Patient has one sister and she had a myocardial infarction at age 55. Patient has 2 sons and one has history of DVT and pulmonary embolism. PHYSICAL EXAMINATION Gen: This is a 63-year-old female. She is resting on ER bed and appe ars to be in no acute distress. HEENT: Head is atraumatic, normocephalic. Pupils equal, round. Sclerae is anicteric. Mucous members of the mouth are somewhat dry. NECK: Supple. No JVD. No lymphadenopathy. No thyromegaly. LUNGS: Clear to auscultation. No wheezes or rhonchi. No intercostal retrac tions. 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 ABDOMEN: Soft, mild tenderness in the epigastric area and no rebound or guarding positive bowel sounds, there is a right non healing wound to the right groin that appears to have a clear base with minimal exudate. EXTREMITIES: Right above-knee amputation with sara appears to be intact, minimal redness to the side of the stump of any drainage, the left leg dorsalis pedis could not be palpated neither posterior tibialis, no evidence of any ulcers. NEUROLOGICAL: Patient is awake, alert and oriented x3. Cranial nerves 2 through 12 are grossly intact muscle power were 3 out of 5 in upper extremity is, and 3 out of 5 in the left lower extremity. She does have a right above-knee am putation. ASSESSMENT AND PLAN 1. Metabolic encephalopathy likely related to hypoglycemia possible an infectious process. Patient does appear to have a significant 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, continue local care, cultures were obtained, start the patient on IV antibiotic in the form of cefepime 2 g IV piggyback every 8 hours, infectious disease consultation as well as vascular surgery consultation. 2. Status post right [id number] amputation was appears to be intact, Dr. Mendoza consult for sara removal and evaluation of the side of the stump. Continue IV antibiotic meanwhile. 3. Coronary artery disease with recent stent of the RCA due to recent in-stent restenosis. Patient has had previous multiple cardiac stents to the RCA and mid LAD, obtuse marginal branch. Continue patient on Plavix 75 mg daily, Lopressor 25 mg twice daily, Crestor 20 mg daily. 4. Diabetes mellitus type 2 uncontrolled with hypoglycemia. Decrease Levemir to 15 units at bedtime along with a sliding scale insulin. Discontinue Farxiga 5. Hyperlipidemia. Continue Atorvastatin 40 mg po daily 6. Chronic DVT and PEs. Continue patient on eliquis 5 mg twice daily. 7. Orthostatic hypotension continue patient on Midodrin 5 mg po tid 8. Hypertension and hypertensive cardiovascular disease. Continue metoprolol 25 mg orally twice every day. 9. Gastroesophageal reflux disease and GI prophylaxis. Continue Pantoprazole 40 mg daily. 10. Diabetic neuropathy. we will continue wit Gabapentin 400 mg po tid. 11. Generalized anxiety disorder, recurrent depression. Continue Cymbalta 60 mg po bid 13. DVT prophylaxis. Continue Eliquis 5 mg po bid 14. GI prophylaxis. Continue patient on PPI. 15. Admit to inpatient. Estimate length of stay 2 midnights. 16. Full code. Past Medical History Past Medical History: Coronary Artery Disease (CAD), Diabetes Mellitus, Deep Vein Thrombosis (DVT), Vascular Disorder Additional Past Medical History / Comment(s): SKIN CA. 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, NEUROPATHY LEGS & FEET, USING WALKER, .Mutiple DVT,mesentaric th rombosis x2 & PE, PAD, chronic pain syndrome, ddd lumbar region w/radiculopathy, HISTORY OF FALL 01/07/20 , tore rt rotator cuff, pancreatitis, fatty liver, Last Myocardial Infarction Date:: 2010 History of Any Multi-Drug Resistant Organisms: None Reported Past Surgical History: Section, Cholecystectomy, Heart Catheterization, Heart Catheterization With Stent, Orthopedic Surgery, Tonsillectomy, Tubal Ligation Additional Past Surgical History / Comment(s): 11 Stents in left leg, fistula left thigh, full mouth teeth extraction, TRAPEASE VENA CAVA FILTER, carpel tunnel, heart stents x4 rca and lad, tumor removal from uterus. Genital warts removed, INGRID. Skin cancer removed from neck, rt great toe amputated, colonoscopy, rt rotator, left shoulder replacement, cervial fusion, rt calf debridement, rt calf skin graft (May 2023) Past Anesthesia/Blood Transfusion Reactions: No Reported Reaction Date of Last Stent Placement:: Mar 2023 Past Psychological History: Anxiety, Depression Smoking Status: Current every day smoker Past Alcohol Use History: None Reported Past Drug Use History: None Reported - Past Family History Mother Family Medical History: Cancer, Congestive Heart Failure (CHF), Diabetes Mellitus, Myocardial Infarction (CO) Additional Family Medical History / Comment(s): UTERINE CANCER Father Family Medical History: Coronary Artery Disease (CAD), Myocardial Infarction ([place]) Additional Family Medical History / Comment(s): Father at age 70. Sister(s) Family Medical History: Myocardial Infarction ([place]) Additional Family Medical History / Comment(s): Patient has one sister with myocardial infarction at age 55. Son(s) Family Medical History: Deep Vein Thrombosis (DVT), Pulmonary Embolus Additional Family Medical History / Comment(s): Patient has 2 sons and one has history of DVT and pulmonary embolism. Medications and Allergies Home Medications Medication Instructions Recorded Confirmed Type Docusate [Colace] 100 mg PO DAILY@0800 11/14/21 07/04/23 History Rosuvastatin [Crestor] 20 mg PO DAILY@1700 01/08/23 07/04/23 History Ergocalciferol (Vitamin D2) 1,250 mcg PO GUERRERO@0804/01/23 07/04/23 History [Drisdol (50,000 Iu)] Melatonin 3 mg PO HS@2100 04/01/23 07/04/23 History Nitroglycerin Sl Tabs [Nitrostat] 0.4 mg SL Q5M PRN 04/01/23 07/04/23 History Omeprazole [PriLOSEC] 20 mg PO DAILY@0800 04/01/23 07/04/23 History Potassium Chloride ER [K-Dur 10] 10 meq PO BID@0800,1700 04/22/23 07/04/23 History Collagenase [Santyl Ointment] 1 applic TOPICAL DAILY each 05/18/23 07/04/23 Rx Apixaban [Eliquis] 5 mg PO BID@0800,1700 05/20/23 07/04/23 History Clopidogrel [Plavix] 75 mg PO DAILY@1100 05/20/23 07/04/23 History Ipratropium-Albuterol Nebulize 3 ml INHALATION RT-Q6H PRN each 06/14/23 07/04/23 Rx [Duoneb 0.5 mg-3 mg/3 ml Soln] ALPRAZolam [Xanax] 0.25 mg PO BID PRN 3 Days #6 tab 06/18/23 07/04/23 Rx DULoxetine HCL [Cymbalta] 60 mg PO BID@0800,2100 07/04/23 07/04/23 History Dapagliflozin Propanediol [Farxiga] 10 mg PO DAILY@0800 07/04/23 07/04/23 History Ensure Clear 237 ml PO BID@0800,1700 07/04/23 07/04/23 History Ferrous Sulfate [Feosol] 325 mg PO BID@0800,1700 07/04/23 07/04/23 History Gabapentin [Neurontin] 400 mg PO TID@0600,1400,2200 07/04/23 07/04/23 History Glucerna Shake 237 ml PO DAILY@17007/04/23 07/04/23 History HYDROcodone/APAP 7.5-325MG [[place] 1 tab PO Q4-6H PRN 07/04/23 07/04/23 History 7.5-325] INSULIN ASPART (NovoLOG) [NovoLOG See Protocol SQ 07/04/23 07/04/23 History (formulary)] ACHS@07,11,1630,2130 Insulin Glargine,Hum.rec.anlog 15 units SQ HS@21307/04/23 07/04/23 History [Lantus Solostar Pen] Liquacel 30 ml PO BID@0800,1700 07/04/23 07/04/23 History Magic Cup 1 dose PO BID-W/MEALS@12,17 07/04/23 07/04/23 History Magnesium Hydroxide [Milk of 7,200 mg PO DAILY PRN 07/04/23 07/04/23 History Magnesia Concentrate] Metoprolol Tartrate [Lopressor] 25 mg PO BID@0800,1700 07/04/23 07/04/23 History Midodrine [ProAmatine] 5 mg PO TID@0600,1400,2200 07/04/23 07/04/23 History Na Phos,M-B/Na Phos,Di-Ba [Fleet 133 ml RECTAL DAILY PRN 07/04/23 07/04/23 History Adult] bisacodyL [Dulcolax] 10 mg RECTAL DAILY PRN 07/04/23 07/04/23 History Allergies Allergy/AdvReac Type Severity Reaction Status Date / Time vancomycin Allergy Rash/Hives/and Verified 07/04/23 14:56 vomiting diarrhea/Swelling Physical Exam Vitals: Vital Signs Temp Pulse Resp BP Pulse Ox 07/04/23 18:36 85 16 93/58 95 07/04/23 16:38 68 20 103/61 95 07/04/23 15:00 99 16 82/48 95 07/04/23 14:00 75 16 92/60 98 07/04/23 13:26 93 20 93/40 95 07/04/23 11:51 110 H 20 93/46 94 L 07/04/23 11:21 97.7 F 105 H 20 87/56 96 Intake and Output 07/04/23 07/04/23 07/04/23 06:59 14:59 22:59 Other: Weight 79.832 kg Results CBC & Chem 7: 07/05/23 08:56 07/05/23 08:56 Labs: Abnormal Lab Results - Last 24 Hours (Table) 07/04/23 07/04/23 07/04/23 Range/Units 11:43 11:43 11:43 WBC 14.2 H (3.8-10.6) k/uL RDW 19.5 H (11.5-15.5) % Neutrophils # 11.9 H (1.3-7.7) k/uL Lymphocytes # 0.7 L (1.0-4.8) k/uL Monocytes # 1.1 H (0-1.0) k/uL Sodium 136 L (137-145) mmol/L Chloride 97 L (98-107) mmol/L BUN 18 H (7-17) mg/dL POC Glucose (mg/dL) (70-110) mg/dL Plasma Lactic Acid Mynor (0.7-2.0) mmol/L Alkaline Phosphatase 181 H (38-126) U/L Albumin 3.1 L (3.5-5.0) g/dL Urine Protein Trace H (Negative) Urine Glucose (UA) 4+ H (Negative) 07/04/23 07/04/23 Range/Units 11:45 17:58 WBC (3.8-10.6) k/uL RDW (11.5-15.5) % Neutrophils # (1.3-7.7) k/uL Lymphocytes # (1.0-4.8) k/uL Monocytes # (0-1.0) k/uL Sodium (137-145) mmol/L Chloride (98-107) mmol/L BUN (7-17) mg/dL POC Glucose (mg/dL) 147 H (70-110) mg/dL Plasma Lactic Acid Mynor 2.3 H* (0.7-2.0) mmol/L Alkaline Phosphatase (38-126) U/L Albumin (3.5-5.0) g/dL Urine Protein (Negative) Urine Glucose (UA) (Negative)
--- NOTE | 2023-07-06 16:09 | P.PN ---
Subjective Progress Note Date: 07/05/23 HISTORY OF PRESENT ILLNESS This is a 63-year-old female patient of mine with history of CAD with multiple cardiac stents in mid RCA, mid LAD, obtuse marginal branch and followed by Dr. Bill closely, peripheral artery disease with previous stenting done as well has amputation of the right great toe secondary to osteomyelitis, CVA with no residual deficits, hypertension, COPD, diabetes mellitus type 2, previous multiple DVT and PE requiring chronic anticoagulation on eliquis, history of GI bleed secondary to antral gastritis, esophagitis, vitamin D deficiency, autono margot hypotension on midodrine, history of left humerus fracture. resume with patient April 02 through April 15 at which time she presented to the hospital due to right second and fifth toe ischemic change. A CT angiogram showed evidence of occlusion of the right superficial femoral artery and 2 occluded segments 1 in the mid thigh about 3 cm and another into the right popliteal artery at 13 cm length, occlusion of the right iliac artery into the common femoral artery. Patient was seen in consultation by vascular surgery. Arterial ultrasound showed lower extremity abnormal on the right with HERMINIA suggests severe atherosclerotic disease. Critical stenosis not excluded. Plan for open bypass surgery with vascular surgery was made but a cardiology consult was requested. Patient was seen by Dr. Bill and had chest pain complaint and Due to critical in-stent restenosis and subsequently underwent cardiac catheterization which revealed critical in-stent restenosis of the RCA and Dr. Bill present performed stenting of the RCA. There was also intermediate disease in the first obtuse marginal branch of the left circumflex, intermediate disease involving the LAD and mildly elevated left sided filling pressures after that patient developed to have significant hematoma require blood for sedation and ICU management, and after that underwent incision and drainage of the hematoma, and she also underwent the bright bed of the Achilles wound after she has had a graft that did not last much patient was treated with IV antibiotic and eventually the decision was made to go for a right [id number] amputation as a definitive treatment for her peripheral vascular disease patient had that and she was sent to [facility] for physical therapy rehabilitation, while she was at [facility] patient developed to have a significant Covid 19 infection as part of the epidemic in the [place], and the patient was treated patient has been complaining of increased hypotension with generalized weakness and dizziness, initially she was started on Midrin 5 minute gram orally 3 times every day, she was taken off her RISHI inhibitor, and the patient continued to deteriorate, she was complaining of increased abdominal pain she was sent to the emergency department at [facility] and she was found to have a minimal redness at the site of the stump where her sara are, and also she was complaining of increased abdominal pain, so she was admitted to the hospital for evaluation and treatment, she did have leukocytosis, she was started on IV antibiotic in the form of cefepime, and she was seen in consultation by vascular surgery for further recommendation and treatment she also did appear to have this right groin wound that has been chronic since she had the debridement of the hematoma and also was seen and evaluated by vascular surgery was recommended to continue with current treatment plan. 07/05: Patient is laying down in bed she is a bit more awake today and more alert today she is not as confused, her metabolic encephalopathy has resolved, continue IV antibiotic in the form of cefepime 2 g IV piggyback every 8 hours, she was seen earlier by vascular surgery and infectious disease, her sara were removed, continue local care for the nonhealing wound in the right groin, we will follow-up with the patient awaiting the final result of the culture, patient was instructed to eat more continue with protein drinks as well, physical therapy evaluation as the patient will need to continue with physical therapy so she will be ready to have her prosthetic done down the line REVIEW OF SYSTEMS Constitutional: positive for fever, No chills, no night sweats. Reports weight loss. Reports weakness, Reports fatigue no lethargy. NO daytime sleepiness. HEENT: No headache. positive for dizziness. Reports difficulty swallowing. No nasal drainage or congestion. No epistaxis. No sore throat. Lungs: No shortness of breath, no cough, no sputum production. No wheezing. Cardiovascular: No chest pain, no lower extremity edema. No palpitations. No paroxysmal nocturnal dyspnea. No orthopnea. No lightheadedness or dizziness. No syncopal episodes. Abdominal: Reports abdominal pain. Reports nausea, no vomiting. no diarrhea. No constipation. No bloody or tarry stools. Reports loss of appetite. Genitourinary: No dysuria, increased frequency, urgency. No urinary retention. Musculoskeletal: No myalgias. positive for muscle weakness, reports balance issues. Integumentary: Right AKA with minima erythema to the side no drainage, right gr oin non healing wound Neurologic: No aphasia. No facial droop. No change in mentation. No head injury. No headache. No paralysis. No paresthesia. Psychiatric: Reports depression. Reports anxiety. No mood swings. Endocrine: abnormal blood sugars. positive for weight change. No excessive sweating or thirst. No cold intolerance. PHYSICAL EXAMINATION Gen: This is a 63-year-old female. She is resting on ER bed and appears to be in no acute distress. HEENT: Head is atraumatic, normocephalic. Pupils equal, round. Sclerae is anicteric. Mucous members of the mouth are somewhat dry. NECK: Supple. No JVD. No lymphadenopathy. No thyromegaly. LUNGS: Clear to auscultation. No wheezes or rhonchi. No intercostal retractions. 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 ABDOMEN: Soft, mild tenderness in the epigastric area and no rebound or guarding positive bowel sounds, there is a right non healing wound to the right groin that appears to have a clear base with minimal exudate. EXTREMITIES: Right above-knee amputation with sara appears to be intact, minimal redness to the side of the stump of any drainage, the left leg dorsalis pedis could not be palpated neither posterior tibialis, no evidence of any ulcers. NEUROLOGICAL: Patient is awake, alert and oriented x3. Cranial nerves 2 through 12 are grossly intact muscle power were 3 out of 5 in upper extremity is, and 3 out of 5 in the left lower extremity. She does have a right above-knee amputation. ASSESSMENT AND PLAN 1. Metabolic encephalopathy likely related to hypoglycemia and possible inf ected nonhealing wound in the right groin. Cultures were obtained continue cefepime 2 g IV piggyback every 8 hours, monitor the patient rate closely, blood cultures were obtained, vascular surgery is following as well. 2. Status post right [id number] amputation. Seems to be okay vascular jodie aliya evaluated the patient already. 3. Coronary artery disease with recent stent of the RCA due to recent in-stent restenosis. Patient has had previous multiple cardiac stents to the RCA and mid LAD, obtuse marginal branch. Continue patient on Plavix 75 mg daily, Lopressor 25 mg twice daily, Crestor 20 mg daily. 4. Diabetes mellitus type 2 uncontrolled with hypoglycemia. Decrease Levemir to 12 units at bedtime along with a sliding scale insulin. 5. Hyperlipidemia. Continue Atorvastatin 40 mg po daily, keep LDL cholesterol 55-70. 6. Chronic DVT and PEs. Continue patient on eliquis 5 mg twice daily. 7. Orthostatic hypotension continue patient on Midodrin 5 mg po tid 8. Hypertension and hypertensive cardiovascular disease. Continue metoprolol 25 mg orally twice every day. 9. Gastroesophageal reflux disease Continue Pantoprazole 40 mg daily. 10. Diabetic neuropathy. we will continue wit Gabapentin 400 mg po tid. 11. Generalized anxiety disorder, recurrent depression. Continue Cymbalta 60 mg po bid 13. DVT prophylaxis. Continue Eliquis 5 mg po bid 14. GI prophylaxis. Continue patient on PPI. 15. PT evaluation. 16. weigh and charge worker consultation. Objective - Vital Signs Vital signs: Vital Signs Temp 97.9 F 07/06/23 11:57 Pulse 76 07/06/23 11:57 Resp 18 07/06/23 11:57 BP 135/74 07/06/23 11:57 Pulse Ox 100 07/06/23 11:57 FiO2 Intake & Output 07/05/23 07/06/23 07/06/23 18:59 06:59 18:59 Intake Total 465 1080 462 Output Total 850 1150 1300 Balance -385 -70 -838 Weight 79.832 kg 79.5 kg Intake: Oral 465 1080 462 Output: Urine 850 1150 1300 Other: Voiding Method Diaper Diaper Diaper Incontinent Incontinent Incontinent External Catheter External Catheter # Voids 1 1 1 # Bowel Movements 1 - Labs CBC & Chem 7: 07/05/23 08:56 07/05/23 08:56 Labs: Abnormal Lab Results - Last 24 Hours (Table) 07/04/23 07/06/23 07/06/23 Range/Units 20:30 06:08 06:37 POC Glucose (mg/dL) 48 L 54 L (70-110) mg/dL Stool Lactoferrin Positive A (Negative) 07/06/23 07/06/23 Range/Units 06:59 11:28 POC Glucose (mg/dL) 49 L 123 H (70-110) mg/dL Stool Lactoferrin (Negative) Microbiology - Last 24 Hours (Table) 07/04/23 11:45 Blood Culture - Preliminary Blood
[2023-07-06] MEDS: ATORVASTATIN 40 MG TAB PO SCH (16:12)
[2023-07-06 16:39] LABS: Glucose,Whole Blood 132 mg/dL (70-110)
[2023-07-06 19:50] LABS: Glucose,Whole Blood 245 mg/dL (70-110)
[2023-07-06] MEDS: INSULIN DETEMIR (LEVEMIR) 100 UNIT/ML SYR SQ SCH (20:03)
[2023-07-07] MEDS: HYDROcodone/APAP 7.5-325MG 1 EACH TAB PO PRN ×3 (00:47→21:49)
[2023-07-07 01:55] LABS: Glucose,Whole Blood 195 mg/dL (70-110)
[2023-07-07] MEDS: CEFEPIME 2 GM in SODIUM CHLORIDE 0.9% 100 ML IVPB SCH ×2 (05:52→17:22)
[2023-07-07] MEDS: MIDODRINE 5 MG TAB PO SCH ×3 (05:52→21:49)
[2023-07-07] MEDS: GABAPENTIN 400 MG CAP PO SCH ×2 (05:52→21:49)
[2023-07-07 06:15] LABS: Glucose,Whole Blood 123 mg/dL (70-110)
[2023-07-07] MEDS: METOPROLOL TARTRATE 25 MG TAB PO SCH ×2 (09:52→17:22)
[2023-07-07] MEDS: DULoxetine HCL 60 MG CAPSULE.DR PO SCH ×2 (09:52→21:49)
[2023-07-07] MEDS: APIXABAN 5 MG TAB PO SCH ×2 (09:52→17:22)
[2023-07-07] MEDS: PANTOPRAZOLE 40 MG TABLET PO SCH (09:52)
--- NOTE | 2023-07-07 11:10 | P.PN ---
Subjective Progress Note Date: 07/06/23 HISTORY OF PRESENT ILLNESS This is a 63-year-old female patient of mine with history of CAD with multiple cardiac stents in mid RCA, mid LAD, obtuse marginal branch and followed by Dr. Bill closely, peripheral artery disease with previous stenting done as well has amputation of the right great toe secondary to osteomyelitis, CVA with no residual deficits, hypertension, COPD, diabetes mellitus type 2, previous multiple DVT and PE requiring chronic anticoagulation on eliquis, history of GI bleed secondary to antral gastritis, esophagitis, vitamin D deficiency, autono margot hypotension on midodrine, history of left humerus fracture. resume with patient April 02 through April 15 at which time she presented to the hospital due to right second and fifth toe ischemic change. A CT angiogram showed evidence of occlusion of the right superficial femoral artery and 2 occluded segments 1 in the mid thigh about 3 cm and another into the right popliteal artery at 13 cm length, occlusion of the right iliac artery into the common femoral artery. Patient was seen in consultation by vascular surgery. Arterial ultrasound showed lower extremity abnormal on the right with HERMINIA suggests severe atherosclerotic disease. Critical stenosis not excluded. Plan for open bypass surgery with vascular surgery was made but a cardiology consult was requested. Patient was seen by Dr. Bill and had chest pain complaint and Due to critical in-stent restenosis and subsequently underwent cardiac catheterization which revealed critical in-stent restenosis of the RCA and Dr. Bill present performed stenting of the RCA. There was also intermediate disease in the first obtuse marginal branch of the left circumflex, intermediate disease involving the LAD and mildly elevated left sided filling pressures after that patient developed to have significant hematoma require blood for sedation and ICU management, and after that underwent incision and drainage of the hematoma, and she also underwent the bright bed of the Achilles wound after she has had a graft that did not last much patient was treated with IV antibiotic and eventually the decision was made to go for a right [id number] amputation as a definitive treatment for her peripheral vascular disease patient had that and she was sent to [facility] for physical therapy rehabilitation, while she was at [facility] patient developed to have a significant Covid 19 infection as part of the epidemic in the [facility], and the patient was treated patient has been complaining of increased hypotension with generalized weakness and dizziness, initially she was started on Midrin 5 minute gram orally 3 times every day, she was taken off her RISHI inhibitor, and the patient continued to deteriorate, she was complaining of increased abdominal pain she was sent to the emergency department at [facility] and she was found to have a minimal redness at the site of the stump where her sara are, and also she was complaining of increased abdominal pain, so she was admitted to the hospital for evaluation and treatment, she did have leukocytosis, she was started on IV antibiotic in the form of cefepime, and she was seen in consultation by vascular surgery for further recommendation and treatment she also did appear to have this right groin wound that has been chronic since she had the debridement of the hematoma and also was seen and evaluated by vascular surgery was recommended to continue with current treatment plan. 07/05: Patient is laying down in bed she is a bit more awake today and more alert today she is not as confused, her metabolic encephalopathy has resolved, continue IV antibiotic in the form of cefepime 2 g IV piggyback every 8 hours, she was seen earlier by vascular surgery and infectious disease, her sara were removed, continue local care for the nonhealing wound in the right groin, we will follow-up with the patient awaiting the final result of the culture, patient was instructed to eat more continue with protein drinks as well, physical therapy evaluation as the patient will need to continue with physical therapy so she will be ready to have her prosthetic done down the line 2: Patient is more awake now she did have an episode of hypoglycemia in the morning when her blood glucose level dropped to 48, she did receive half an amp of D50 as well as orange juice, as well as phi crackers, we will check cortisol level, we'll decrease her Levemir to 12 units at bedtime, monitor the patient very closely, patient will be given a snack prior to her bedtime, patient will be seen and evaluated by physical therapy, patient will likely be transferred back to [facility] after the final result of the cultures are back, continue IV antibiotic in the form of cefepime, patient has been followed by infectious disease as well as by vascular surgery. REVIEW OF SYSTEMS Constitutional: positive for fever, No chills, no night sweats. Reports weight loss. Reports weakness, Reports fatigue no lethargy. NO daytime sleepiness. HEENT: No headache. positive for dizziness. Reports difficulty swallowing. No nasal drainage or congestion. No epistaxis. No sore throat. Lungs: No shortness of breath, no cough, no sputum production. No wheezing. Cardiovascular: No chest pain, no lower extremity edema. No palpitations. No paroxysmal nocturnal dyspnea. No orthopnea. No lightheadedness or dizziness. No syncopal episodes. Abdominal: Reports abdominal pain. Reports nausea, no vomiting. no diarrhea. No constipation. No bloody or tarry stools. Reports loss of appetite. Genitourinary: No dysuria, increased frequency, urgency. No urinary retention. Musculoskeletal: No myalgias. positive for muscle weakness, reports balance issues. Integumentary: Right AKA with minima erythema to the side no drainage, right groin non healing wound Neurologic: No aphasia. No facial droop. No change in mentation. No head injury. No headache. No paralysis. No paresthesia. Psychiatric: Reports depression. Reports anxiety. No mood swings. Endocrine: abnormal blood sugars. positive for weight change. No excessive sweating or thirst. No cold intolerance. PHYSICAL EXAMINATION Gen: This is a 63-year-old female. She is resting on ER bed and appears to be in no acute distress. HEENT: Head is atraumatic, normocephalic. Pupils equal, round. Sclerae is anicteric. Mucous members of the mouth are somewhat dry. NECK: Supple. No JVD. No lymphadenopathy. No thyromegaly. LUNGS: Clear to auscultation. No wheezes or rhonchi. No intercostal retractions. 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 ABDOMEN: Soft, mild tenderness in the epigastric area and no rebound or guarding positive bowel sounds, there is a right non healing wound to the right groin that appears to have a clear base with minimal exudate. EXTREMITIES: Right above-knee amputation with sara appears to be intact, minimal redness to the side of the stump of any drainage, the left leg dorsalis pedis could not be palpated neither posterior tibialis, no evidence of any ulcer s. NEUROLOGICAL: Patient is awake, alert and oriented x3. Cranial nerves 2 through 12 are grossly intact muscle power were 3 out of 5 in upper extremity is, and 3 out of 5 in the left lower extremity. She does have a right above-knee amputation. ASSESSMENT AND PLAN 1. Metabolic encephalopathy likely related to hypoglycemia and possible infected nonhealing wound in the right groin. Cultures were obtained continue cefepime 2 g IV piggyback every 8 hours, monitor the patient rate closely, blood cultures were obtained, vascular surgery is following as well. 2. Status post right [id number] amputation. Seems to be okay vascular surgery evaluated the patient already. 3. Coronary artery disease with recent stent of the RCA due to recent in-stent restenosis. Patient has had previous multiple cardiac stents to the RCA and mid LAD, obtuse marginal branch. Continue patient on Plavix 75 mg daily, Lopressor 25 mg twice daily, Crestor 20 mg daily. 4. Diabetes mellitus type 2 uncontrolled with hypoglycemia. Decrease Levemir to 12 units at bedtime along with a sliding scale insulin. Provide snack at bedtime. 5. Hyperlipidemia. Continue Atorvastatin 40 mg po daily, keep LDL cholesterol 55-70. 6. Chronic DVT and PEs. Continue patient on eliquis 5 mg twice daily. 7. Orthostatic hypotension continue patient on Midodrin 5 mg po tid 8. Hypertension and hypertensive cardiovascular disease. Continue metoprolol 25 mg orally twice every day. 9. Gastroesophageal reflux disease Continue Pantoprazole 40 mg daily. 10. Diabetic neuropathy. we will continue wit Gabapentin 400 mg po tid. 11. Generalized anxiety disorder, recurrent depression. Continue Cymbalta 60 mg po bid 13. DVT prophylaxis. Continue Eliquis 5 mg po bid 14. GI prophylaxis. Continue patient on PPI. 15. PT evaluation. 16. toll testboard worker consultation. Objective - Vital Signs Vital signs: Vital Signs Temp 98.0 F 07/07/23 09:35 Pulse 72 07/07/23 09:40 Resp 16 07/07/23 09:40 BP 112/78 07/07/23 09:35 Pulse Ox 100 07/07/23 09:35 FiO2 Intake & Output 07/06/23 07/07/23 07/07/23 18:59 06:59 18:59 Intake Total 702 360 Output Total 1300 1750 Balance -598 -1750 360 Weight 84.5 kg Intake: Oral 702 360 Output: Urine 1300 1750 Other: Voiding Method Diaper Diaper Diaper Incontinent Incontinent Incontinent External Catheter External Catheter External Catheter # Voids 1 1 - Labs CBC & Chem 7: 07/05/23 08:56 07/05/23 08:56 Labs: Abnormal Lab Results - Last 24 Hours (Table) 07/06/23 07/06/23 07/06/23 Range/Units 11:28 16:37 19:49 POC Glucose (mg/dL) 123 H 132 H 245 H (70-110) mg/dL 07/07/23 07/07/23 Range/Units 01:54 06:14 POC Glucose (mg/dL) 195 H 123 H (70-110) mg/dL Microbiology - Last 24 Hours (Table) 07/04/23 11:45 Blood Culture - Preliminary Blood
[2023-07-07 11:34] LABS: Glucose,Whole Blood 201 mg/dL (70-110)
[2023-07-07 11:41] LABS: Anisocytosis Slight; Basophils % (A) 0 %; Eosinophils # (A) 0.4 k/uL (0-0.7); Eosinophils % (A) 5 %; HCT 35.7 % (34.0-46.0); Hypochromasia Marked; Lymphocytes # (A) 0.8 k/uL (1.0-4.8); Lymphocytes % (A) 12 %; MCH 26.7 pg (25.0-35.0); MCHC 30.7 g/dL (31.0-37.0); MCV 86.9 fL (80.0-100.0); Mean Platelet Volume 8.2; Monocytes # (A) 0.3 k/uL (0-1.0); Monocytes % (A) 5 %; Neutrophils # (A) 5.1 k/uL (1.3-7.7); Neutrophils % (A) 77 %; Platelet Count 281 k/uL (150-450); Poikilocytosis Slight; RBC 4.11 m/uL (3.80-5.40); RDW 19.7 % (11.5-15.5); WBC 6.6 k/uL (3.8-10.6)
[2023-07-07] MEDS: CLOPIDOGREL 75 MG TAB PO SCH (11:44)
[2023-07-07] MEDS: BENZOCAINE/MENTHOL LOZENG 1 EACH LOZENGE MUCOUS MEM PRN ×3 (11:51→22:56)
[2023-07-07 12:23] LABS: ALT 17 U/L (4-34); AST 29 U/L (14-36); African American GFR (CKD) >90 (>60 ml/min/1.73 sqM); Alkaline Phosphatase 129 U/L (38-126); Anion Gap 9 mmol/L; Blood Urea Nitrogen 11 mg/dL (7-17); Calcium 7.6 mg/dL (8.4-10.2); Carbon Dioxide 23 mmol/L (22-30); Chloride 105 mmol/L (98-107); Glucose 144 mg/dL (74-99); Non-African American GFR(CKD) 88 (>60 ml/min/1.73 sqM); Potassium 3.4 mmol/L (3.5-5.1); Sodium 137 mmol/L (137-145); Total Bilirubin 0.4 mg/dL (0.2-1.3); Total Protein 5.1 g/dL (6.3-8.2)
[2023-07-07] MEDS ORDERED: POTASSIUM CHLORIDE ER 20 MEQ TAB.ER PO STA (13:07)
--- NOTE | 2023-07-07 13:51 | P.PN ---
Subjective Progress Note Date: 07/07/23 HISTORY OF PRESENT ILLNESS This is a 63-year-old female patient of mine with history of CAD with multiple cardiac stents in mid RCA, mid LAD, obtuse marginal branch and followed by Dr. Bill closely, peripheral artery disease with previous stenting done as well has amputation of the right great toe secondary to osteomyelitis, CVA with no residual deficits, hypertension, COPD, diabetes mellitus type 2, previous multiple DVT and PE requiring chronic anticoagulation on eliquis, history of GI bleed secondary to antral gastritis, esophagitis, vitamin D deficiency, autono margot hypotension on midodrine, history of left humerus fracture. resume with patient April 02 through April 15 at which time she presented to the hospital due to right second and fifth toe ischemic change. A CT angiogram showed evidence of occlusion of the right superficial femoral artery and 2 occluded segments 1 in the mid thigh about 3 cm and another into the right popliteal artery at 13 cm length, occlusion of the right iliac artery into the common femoral artery. Patient was seen in consultation by vascular surgery. Arterial ultrasound showed lower extremity abnormal on the right with HERMINIA suggests severe atherosclerotic disease. Critical stenosis not excluded. Plan for open bypass surgery with vascular surgery was made but a cardiology consult was requested. Patient was seen by Dr. Bill and had chest pain complaint and Due to critical in-stent restenosis and subsequently underwent cardiac catheterization which revealed critical in-stent restenosis of the RCA and Dr. Bill present performed stenting of the RCA. There was also intermediate disease in the first obtuse marginal branch of the left circumflex, intermediate disease involving the LAD and mildly elevated left sided filling pressures after that patient developed to have significant hematoma require blood for sedation and ICU management, and after that underwent incision and drainage of the hematoma, and she also underwent the bright bed of the Achilles wound after she has had a graft that did not last much patient was treated with IV antibiotic and eventually the decision was made to go for a right [id number]-eqy-lfrf amputation as a definitive treatment for her peripheral vascular disease patient had that and she was sent to [facility] for physical therapy rehabilitation, while she was at [facility] patient developed to have a significant Covid 19 infection as part of the epidemic in the assisted, and the patient was treated patient has been complaining of increased hypotension with generalized weakness and dizziness, initially she was started on Midrin 5 minute gram orally 3 times every day, she was taken off her RISHI inhibitor, and the patient continued to deteriorate, she was complaining of increased abdominal pain she was sent to the emergency department at [facility] and she was found to have a minimal redness at the site of the stump where her sara are, and also she was complaining of increased abdominal pain, so she was admitted to the hospital for evaluation and treatment, she did have leukocytosis, she was started on IV antibiotic in the form of cefepime, and she was seen in consultation by vascular surgery for further recommendation and treatment she also did appear to have this right groin wound that has been chronic since she had the debridement of the hematoma and also was seen and evaluated by vascular surgery was recommended to continue with current treatment plan. 07/05: Patient is laying down in bed she is a bit more awake today and more alert today she is not as confused, her metabolic encephalopathy has resolved, continue IV antibiotic in the form of cefepime 2 g IV piggyback every 8 hours, she was seen earlier by vascular surgery and infectious disease, her sara were removed, continue local care for the nonhealing wound in the right groin, we will follow-up with the patient awaiting the final result of the culture, patient was instructed to eat more continue with protein drinks as well, physical therapy evaluation as the patient will need to continue with physical therapy so she will be ready to have her prosthetic done down the line 122: Patient is more awake now she did have an episode of hypoglycemia in the morning when her blood glucose level dropped to 48, she did receive half an amp of D50 as well as orange juice, as well as phi crackers, we will check cortisol level, we'll decrease her Levemir to 12 units at bedtime, monitor the patient very closely, patient will be given a snack prior to her bedtime, patient will be seen and evaluated by physical therapy, patient will likely be transferred back to [facility] after the final result of the cultures are back, continue IV antibiotic in the form of cefepime, patient has been followed by infectious disease as well as by vascular surgery. 07/07: Patient sitting up in bed in no apparent distress, she is feeling better today, she is more awake and more alert, her blood glucose level in the morning was 123, continue current treatment plan with cefepime, continue to monitor the patient very closely, we will follow-up with the patient very closely and likely will be transferred back to [facility] in the next 24 hours. Patient continues to be on cefepime 2 g IV piggyback every 8 hours. ID is following. REVIEW OF SYSTEMS Constitutional: positive for fever, No chills, no night sweats. Reports weight loss. Reports weakness, Reports fatigue no lethargy. NO daytime sleepiness. HEENT: No headache. positive for dizziness. Reports difficulty swallowing. No nasal drainage or congestion. No epistaxis. No sore throat. Lungs: No shortness of breath, no cough, no sputum production. No wheezing. Cardiovascular: No chest pain, no lower extremity edema. No palpitations. No paroxysmal nocturnal dyspnea. No orthopnea. No lightheadedness or dizziness. No syncopal episodes. Abdominal: Reports abdominal pain. Reports nausea, no vomiting. no diarrhea. No constipation. No bloody or tarry stools. Reports loss of appetite. Genitourinary: No dysuria, increased frequency, urgency. No urinary retention. Musculoskeletal: No myalgias. positive for muscle weakness, reports balance issues. Integumentary: Right AKA with minima erythema to the side no drainage, right groin non healing wound Neurologic: No aphasia. No facial droop. No change in mentation. No head injury. No headache. No paralysis. No paresthesia. Psychiatric: Reports depression. Reports anxiety. No mood swings. Endocrine: abnormal blood sugars. positive for weight change. No excessive sweating or thirst. No cold intolerance. PHYSICAL EXAMINATION Gen: This is a 63-year-old female. She is resting on ER bed and a ppears to be in no acute distress. HEENT: Head is atraumatic, normocephalic. Pupils equal, round. Sclerae is anicteric. Mucous members of the mouth are somewhat dry. NECK: Supple. No JVD. No lymphadenopathy. No thyromegaly. LUNGS: Clear to auscultation. No wheezes or rhonchi. No intercostal ret ractions. 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 ABDOMEN: Soft, mild tenderness in the epigastric area and no rebound or guarding positive bowel sounds, there is a right non healing wound to the right groin that appears to have a clear base with minimal exudate. EXTREMITIES: Right above-knee amputation with sara appears to be intact, minimal redness to the side of the stump of any drainage, the left leg dorsalis pedis could not be palpated neither posterior tibialis, no evidence of any ulcers. NEUROLOGICAL: Patient is awake, alert and oriented x3. Cranial nerves 2 through 12 are grossly intact muscle power were 3 out of 5 in upper extremity is, and 3 out of 5 in the left lower extremity. She does have a right above-knee amputation. ASSESSMENT AND PLAN 1. Metabolic encephalopathy likely related to hypoglycemia and possible infected nonhealing wound in the right groin. Cultures were obtained continue cefepime 2 g IV piggyback every 8 hours, monitor the patient rate closely decrease Hydrocodone to bid and discontinue Xanax and decrease Gabapentin to bid 2. Status post right sdamk-mey-fwxe amputation. Seems to be okay vascular surgery evaluated the patient already. 3. Coronary artery disease with recent stent of the RCA due to recent in-stent restenosis. Patient has had previous multiple cardiac stents to the RCA and mid LAD, obtuse marginal branch. Continue patient on Plavix 75 mg daily, Lopressor 25 mg twice daily, Atorvastatin 40 mg daily. 4. Diabetes mellitus type 2 uncontrolled with hypoglycemia. Levemir to 12 units at bedtime along with a sliding scale insulin. Provide snack at bedtime. 5. Hyperlipidemia. Continue Atorvastatin 40 mg po daily, keep LDL cholesterol 55-70. 6. Chronic DVT and PEs. Continue patient on eliquis 5 mg twice daily for life 7. Orthostatic hypotension continue patient on Midodrin 5 mg po tid 8. Hypertension and hypertensive cardiovascular disease. Continue metoprolol 25 mg orally twice every day. 9. Gastroesophageal reflux disease Continue Pantoprazole 40 mg daily. 10. Diabetic neuropathy. we will continue wit Gabapentin 400 mg po and decrease to bis 11. Generalized anxiety disorder, recurrent depression. Continue Cymbalta 60 mg po bid 13. DVT prophylaxis. Continue Eliquis 5 mg po bid 14. GI prophylaxis. Continue patient on Protonix 40 mg po daily 15. PT evaluation. 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 17, Hoarsness . we will start Flonas nasal spray bid along with Nasal saline spray tid Objective - Vital Signs Vital signs: Vital Signs Temp 98.0 F 07/07/23 09:35 Pulse 72 07/07/23 09:40 Resp 16 07/07/23 09:40 BP 112/78 07/07/23 09:35 Pulse Ox 100 07/07/23 09:35 FiO2 Intake & Output 07/06/23 07/07/23 07/07/23 18:59 06:59 18:59 Intake Total 702 360 Output Total 1300 1750 Balance -598 -1750 360 Weight 84.5 kg Intake: Oral 702 360 Output: Urine 1300 1750 Other: Voiding Method Diaper Diaper Diaper Incontinent Incontinent Incontinent External Catheter External Catheter External Catheter # Voids 1 1 - Labs CBC & Chem 7: 07/07/23 10:26 07/07/23 10:26 Labs: Abnormal Lab Results - Last 24 Hours (Table) 07/06/23 07/06/23 07/06/23 Range/Units 11:28 16:37 19:49 POC Glucose (mg/dL) 123 H 132 H 245 H (70-110) mg/dL 07/07/23 07/07/23 Range/Units 01:54 06:14 POC Glucose (mg/dL) 195 H 123 H (70-110) mg/dL Microbiology - Last 24 Hours (Table) 07/04/23 11:45 Blood Culture - Preliminary Blood
[2023-07-07] MEDS ORDERED: SALINE NASAL GEL 14.1 GM TUBE NASAL PRN (13:52)
--- NOTE | 2023-07-07 14:32 | P.PN ---
Subjective Progress Note Date: 07/06/23 Principal diagnosis: Reason for follow-up with leukocytosis and right lower abdominal wall wound Patient is a 63-year-old female with a past medical history significant for diabetes mellitus coronary disease DVT patient did have a history of peripheral arterial disease and recently did have a right pesdq-fbu-lzvu amputation patient also have a 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 from previous surgical intervention, patient has been sent to the ER from a local [facility] for evaluation of hallucination and mental status changes patient did have elevated white count and also diarrhea stool for C. diff negative On today's evaluation that is 07/06/2023 the patient continues to be afebrile, the patient is breathing comfortably on room air and denies any shortness of breath, the patient denies chest pain or cough, patient denies abdominal pain, no nausea/vomiting or diarrhea. And no pain to the right AKA stump Patient white count normalized to 7.3, creatinine 0.79 as of 07/05/2023, stool for C. diff negative Objective - Vital Signs Vital signs: Vital Signs Temp 97.9 F 07/06/23 11:57 Pulse 76 07/06/23 11:57 Resp 18 07/06/23 11:57 BP 135/74 07/06/23 11:57 Pulse Ox 100 07/06/23 11:57 FiO2 Intake & Output 07/05/23 07/06/23 07/06/23 18:59 06:59 18:59 Intake Total 465 1080 462 Output Total 850 1150 500 Balance -385 -70 -38 Weight 79.832 kg 79.5 kg Intake: Oral 465 1080 462 Output: Urine 850 1150 500 Other: Voiding Method Diaper Diaper Diaper Incontinent Incontinent Incontinent External Catheter External Catheter # Voids 1 1 1 # Bowel Movements 1 - Exam GENERAL DESCRIPTION: Middle-age female lying in bed in no distress RESPIRATORY SYSTEM: Unlabored breathing , clear to auscultation anteriorly HEART: S1 S2 regular rate and rhythm , ABDOMEN: Soft , right lower abdominal/groin wound with no significant slough tissue surrounding redness EXTREMITIES: Right AKA stump post removal of sara minimal erythema at the medial and - Labs CBC & Chem 7: 07/07/23 10:26 07/07/23 10:26 Labs: Abnormal Lab Results - Last 24 Hours (Table) 07/04/23 07/06/23 07/06/23 Range/Units 20:30 06:08 06:37 POC Glucose (mg/dL) 48 L 54 L (70-110) mg/dL Stool Lactoferrin Positive A (Negative) 07/06/23 07/06/23 Range/Units 06:59 11:28 POC Glucose (mg/dL) 49 L 123 H (70-110) mg/dL Stool Lactoferrin (Negative) Microbiology - Last 24 Hours (Table) 07/04/23 11:45 Blood Culture - Preliminary Blood Assessment and Plan (1) Abdominal wall skin ulcer Current Visit: Yes Status: Acute Code(s): L98.499 - NON-PRESSURE CHRONIC ULCER OF SKIN OF SITES W UNSP SEVERITY SNOMED Code(s): 013748825 (2) Leukocytosis Current Visit: Yes Status: Acute Code(s): D72.829 - ELEVATED WHITE BLOOD CELL COUNT, UNSPECIFIED SNOMED Code(s): 550384598 Plan: 1patient presented to hospital with mental status changes and this patient did have a mild elevated white count patient also have a 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 however CT abdominal pelvis today shows overall decrease in the fluid in that location and no significant redness around the wound was noticed minimal soft tissue at the base clinic suspicious know for any worsening wound infection to the right lower abdominal/groin area, the patient right [id number] potation site post removal of sara minimal erythema no drainage 2-local wound care to the right groin wound will be continued with Aquacel silver dressing 3-patient to continue cefepime and monitor clinical course closely Son at the bedside questions were answered Dictation was produced using [employer] dictation software. please excuse any grammatical, word or spelling errors. Time with Patient: Less than 30
--- NOTE | 2023-07-07 14:34 | P.PN ---
Subjective Progress Note Date: 07/07/23 Principal diagnosis: Reason for follow-up with leukocytosis and right lower abdominal wall wound Patient is a 63-year-old female with a past medical history significant for diabetes mellitus coronary disease DVT patient did have a history of peripheral arterial disease and recently did have a right jrsws-exe-ahck amputation patient also have a 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 from previous surgical intervention, patient has been sent to the ER from a local [facility] for evaluation of hallucination and mental status changes patient did have elevated white count and also diarrhea stool for C. diff negative On today's evaluation that is 07/07/2023 the patient denies any fever or any chills, the patient denies shortness of breath chest pain or cough, the patient nausea/vomiting or diarrhea and no abdominal pain., The patient denies pain to the right AKA stump Patient white count normalized to 6.6, creatinine 0.74, stool for C. diff negative Objective - Vital Signs Vital signs: Vital Signs Temp 97.8 F 07/07/23 12:00 Pulse 75 07/07/23 12:00 Resp 16 07/07/23 12:00 BP 129/74 07/07/23 12:00 Pulse Ox 100 07/07/23 12:00 FiO2 Intake & Output 07/06/23 07/07/23 07/07/23 18:59 06:59 18:59 Intake Total 702 360 Output Total 1300 1750 700 Balance -598 -1750 -340 Weight 84.5 kg Intake: Oral 702 360 Output: Urine 1300 1750 700 Other: Voiding Method Diaper Diaper Diaper Incontinent Incontinent Incontinent External Catheter External Catheter External Catheter # Voids 1 1 - Exam GENERAL DESCRIPTION: Middle-age female lying in bed in no distress RESPIRATORY SYSTEM: Unlabored breathing , clear to auscultation anteriorly HEART: S1 S2 regular rate and rhythm , ABDOMEN: Soft , right lower abdominal/groin wound currently dressed EXTREMITIES: Right AKA stump currently dressed - Labs CBC & Chem 7: 07/07/23 10:26 07/07/23 10:26 Labs: Abnormal Lab Results - Last 24 Hours (Table) 07/06/23 07/06/23 07/07/23 Range/Units 16:37 19:49 01:54 Hgb (11.4-16.0) gm/dL MCHC (31.0-37.0) g/dL RDW (11.5-15.5) % Lymphocytes # (1.0-4.8) k/uL Potassium (3.5-5.1) mmol/L Glucose (74-99) mg/dL POC Glucose (mg/dL) 132 H 245 H 195 H (70-110) mg/dL Calcium (8.4-10.2) mg/dL Alkaline Phosphatase (38-126) U/L Total Protein (6.3-8.2) g/dL Albumin (3.5-5.0) g/dL 07/07/23 07/07/23 07/07/23 Range/Units 06:14 10:26 10:26 Hgb 11.0 L (11.4-16.0) gm/dL MCHC 30.7 L (31.0-37.0) g/dL RDW 19.7 H (11.5-15.5) % Lymphocytes # 0.8 L (1.0-4.8) k/uL Potassium 3.4 L (3.5-5.1) mmol/L Glucose 144 H (74-99) mg/dL POC Glucose (mg/dL) 123 H (70-110) mg/dL Calcium 7.6 L (8.4-10.2) mg/dL Alkaline Phosphatase 129 H (38-126) U/L Total Protein 5.1 L (6.3-8.2) g/dL Albumin 2.0 L (3.5-5.0) g/dL 07/07/23 Range/Units 11:31 Hgb (11.4-16.0) gm/dL MCHC (31.0-37.0) g/dL RDW (11.5-15.5) % Lymphocytes # (1.0-4.8) k/uL Potassium (3.5-5.1) mmol/L Glucose (74-99) mg/dL POC Glucose (mg/dL) 201 H (70-110) mg/dL Calcium (8.4-10.2) mg/dL Alkaline Phosphatase (38-126) U/L Total Protein (6.3-8.2) g/dL Albumin (3.5-5.0) g/dL Microbiology - Last 24 Hours (Table) 07/04/23 11:45 Blood Culture - Preliminary Blood Assessment and Plan (1) Abdominal wall skin ulcer Current Visit: Yes Status: Acute Code(s): L98.499 - NON-PRESSURE CHRONIC ULCER OF SKIN OF SITES W UNSP SEVERITY SNOMED Code(s): 352663024 (2) Leukocytosis Current Visit: Yes Status: Acute Code(s): D72.829 - ELEVATED WHITE BLOOD CELL COUNT, UNSPECIFIED SNOMED Code(s): 190566813 Plan: 1patient presented to hospital with mental status changes and this patient did have a mild elevated white count patient also have a 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 however CT abdominal pelvis today shows overall decrease in the fluid in that location and no significant redness around the wound was noticed minimal soft tissue at the base clinic suspicious know for any worsening wound infection to the right lower abdominal/groin area, the patient right lfiyo-tho-wfvo potation site post removal of sara minimal erythema no drainage 2-local wound care to the right groin wound will be continued with Aquacel silver dressing 3-patient seemed to have shown clinical improvement and will continue with cefepime and monitor clinical course closely Son at the bedside questions were answered Dictation was produced using [employer] dictation software. please excuse any grammatical, word or spelling errors. Time with Patient: Less than 30
[2023-07-07] MEDS: FLUTICASONE 50MCG/SPRAY NASAL 16GM EA NOSTRIL SCH ×2 (15:18→22:57)
[2023-07-07 16:40] LABS: Glucose,Whole Blood 227 mg/dL (70-110)
[2023-07-07] MEDS: ATORVASTATIN 40 MG TAB PO SCH (17:22)
[2023-07-07] MEDS: INSULIN ASPART (NovoLOG) 100 UNIT/ML VIAL SQ SCH (17:51)
[2023-07-07] MEDS ORDERED: HYDROcodone/APAP 7.5-325MG 1 EACH TAB PO SCH (21:00)
[2023-07-07 21:05] LABS: Glucose,Whole Blood 200 mg/dL (70-110)
[2023-07-07] MEDS: INSULIN DETEMIR (LEVEMIR) 100 UNIT/ML SYR SQ SCH (21:48)
[2023-07-08] MEDS: CEFEPIME 2 GM in SODIUM CHLORIDE 0.9% 100 ML IVPB SCH ×2 (04:14→17:19)
[2023-07-08 06:16] LABS: Glucose,Whole Blood 247 mg/dL (70-110)
[2023-07-08] MEDS: MIDODRINE 5 MG TAB PO SCH ×3 (06:27→21:12)
[2023-07-08] MEDS: HYDROcodone/APAP 7.5-325MG 1 EACH TAB PO PRN (06:30)
[2023-07-08 07:32] LABS: Anisocytosis Slight; Basophils % (A) 0 %; Eosinophils # (A) 0.3 k/uL (0-0.7); Eosinophils % (A) 5 %; HCT 34.5 % (34.0-46.0); HGB 10.5 gm/dL (11.4-16.0); Hypochromasia Marked; Lymphocytes # (A) 0.9 k/uL (1.0-4.8); Lymphocytes % (A) 16 %; MCH 26.5 pg (25.0-35.0); MCHC 30.5 g/dL (31.0-37.0); MCV 86.9 fL (80.0-100.0); Mean Platelet Volume 8.3; Monocytes # (A) 0.2 k/uL (0-1.0); Monocytes % (A) 4 %; Neutrophils # (A) 4.3 k/uL (1.3-7.7); Neutrophils % (A) 74 %; Platelet Count 196 k/uL (150-450); Poikilocytosis Slight; RBC 3.97 m/uL (3.80-5.40); RDW 19.4 % (11.5-15.5); WBC 5.8 k/uL (3.8-10.6)
[2023-07-08 07:35] LABS: ALT 19 U/L (4-34); AST 29 U/L (14-36); African American GFR (CKD) >90 (>60 ml/min/1.73 sqM); Alkaline Phosphatase 122 U/L (38-126); Anion Gap 8 mmol/L; Blood Urea Nitrogen 10 mg/dL (7-17); Calcium 7.7 mg/dL (8.4-10.2); Carbon Dioxide 25 mmol/L (22-30); Chloride 105 mmol/L (98-107); Glucose 225 mg/dL (74-99); Non-African American GFR(CKD) >90 (>60 ml/min/1.73 sqM); Potassium 4.3 mmol/L (3.5-5.1); Sodium 138 mmol/L (137-145); Total Bilirubin 0.5 mg/dL (0.2-1.3)
[2023-07-08] MEDS: INSULIN ASPART (NovoLOG) 100 UNIT/ML VIAL SQ SCH ×3 (08:12→17:19)
[2023-07-08] MEDS: GABAPENTIN 400 MG CAP PO SCH ×2 (09:02→21:12)
[2023-07-08] MEDS: APIXABAN 5 MG TAB PO SCH ×2 (09:02→17:19)
[2023-07-08] MEDS: PANTOPRAZOLE 40 MG TABLET PO SCH (09:03)
[2023-07-08] MEDS: METOPROLOL TARTRATE 25 MG TAB PO SCH ×2 (09:03→17:19)
[2023-07-08] MEDS: FLUTICASONE 50MCG/SPRAY NASAL 16GM EA NOSTRIL SCH ×2 (09:03→21:12)
[2023-07-08] MEDS: DULoxetine HCL 60 MG CAPSULE.DR PO SCH ×2 (09:03→21:12)
[2023-07-08 11:19] LABS: Glucose,Whole Blood 222 mg/dL (70-110)
[2023-07-08] MEDS: CLOPIDOGREL 75 MG TAB PO SCH (12:16)
--- NOTE | 2023-07-08 16:04 | P.PN ---
Subjective Progress Note Date: 07/08/23 HISTORY OF PRESENT ILLNESS This is a 63-year-old female patient of mine with history of CAD with multiple cardiac stents in mid RCA, mid LAD, obtuse marginal branch and followed by Dr. Bill closely, peripheral artery disease with previous stenting done as well has amputation of the right great toe secondary to osteomyelitis, CVA with no residual deficits, hypertension, COPD, diabetes mellitus type 2, previous multiple DVT and PE requiring chronic anticoagulation on eliquis, history of GI bleed secondary to antral gastritis, esophagitis, vitamin D deficiency, autono margot hypotension on midodrine, history of left humerus fracture. resume with patient April 02 through April 15 at which time she presented to the hospital due to right second and fifth toe ischemic change. A CT angiogram showed evidence of occlusion of the right superficial femoral artery and 2 occluded segments 1 in the mid thigh about 3 cm and another into the right popliteal artery at 13 cm length, occlusion of the right iliac artery into the common femoral artery. Patient was seen in consultation by vascular surgery. Arterial ultrasound showed lower extremity abnormal on the right with HERMINIA suggests severe atherosclerotic disease. Critical stenosis not excluded. Plan for open bypass surgery with vascular surgery was made but a cardiology consult was requested. Patient was seen by Dr. Bill and had chest pain complaint and Due to critical in-stent restenosis and subsequently underwent cardiac catheterization which revealed critical in-stent restenosis of the RCA and Dr. Bill present performed stenting of the RCA. There was also intermediate disease in the first obtuse marginal branch of the left circumflex, intermediate disease involving the LAD and mildly elevated left sided filling pressures after that patient developed to have significant hematoma require blood for sedation and ICU management, and after that underwent incision and drainage of the hematoma, and she also underwent the bright bed of the Achilles wound after she has had a graft that did not last much patient was treated with IV antibiotic and eventually the decision was made to go for a right gfuip-wot-spar amputation as a definitive treatment for her peripheral vascular disease patient had that and she was sent to [facility] for physical therapy rehabilitation, while she was at [facility] patient developed to have a significant Covid 19 infection as part of the epidemic in the [place] [facility], and the patient was treated patient has been complaining of increased hypotension with generalized weakness and dizziness, initially she was started on Midrin 5 minute gram orally 3 times every day, she was taken off her RISHI inhibitor, and the patient continued to deteriorate, she was complaining of increased abdominal pain she was sent to the emergency department at [facility] and she was found to have a minimal redness at the site of the stump where her sara are, and also she was complaining of increased abdominal pain, so she was admitted to the hospital for evaluation and treatment, she did have leukocytosis, she was started on IV antibiotic in the form of cefepime, and she was seen in consultation by vascular surgery for further recommendation and treatment she also did appear to have this right groin wound that has been chronic since she had the debridement of the hematoma and also was seen and evaluated by vascular surgery was recommended to continue with current treatment plan. 07/05: Patient is laying down in bed she is a bit more awake today and more alert today she is not as confused, her metabolic encephalopathy has resolved, continue IV antibiotic in the form of cefepime 2 g IV piggyback every 8 hours, she was seen earlier by vascular surgery and infectious disease, her sara were removed, continue local care for the nonhealing wound in the right groin, we will follow-up with the patient awaiting the final result of the culture, patient was instructed to eat more continue with protein drinks as well, physical therapy evaluation as the patient will need to continue with physical therapy so she will be ready to have her prosthetic done down the line 122: Patient is more awake now she did have an episode of hypoglycemia in the morning when her blood glucose level dropped to 48, she did receive half an amp of D50 as well as orange juice, as well as phi crackers, we will check cortisol level, we'll decrease her Levemir to 12 units at bedtime, monitor the patient very closely, patient will be given a snack prior to her bedtime, patient will be seen and evaluated by physical therapy, patient will likely be transferred back to [facility] after the final result of the cultures are back, continue IV antibiotic in the form of cefepime, patient has been followed by infectious disease as well as by vascular surgery. 07/07: Patient sitting up in bed in no apparent distress, she is feeling better today, she is more awake and more alert, her blood glucose level in the morning was 123, continue current treatment plan with cefepime, continue to monitor the patient very closely, we will follow-up with the patient very closely and likely will be transferred back to [facility] in the next 24 hours. Patient continues to be on cefepime 2 g IV piggyback every 8 hours. ID is following. 07/08: She is seen today in follow-up. Apparently after she worked with physical therapy today she had an episode of vomiting. She feels okay now. No abdominal pain. She is sitting up in a chair and son is at bedside. She has started using the nasal spray. Cortisol level was normal at 16. Blood work today revealed hemoglobin of 10.5, creatinine 0.67. Capillary blood glucose running in the 200s. Blood pressure is 154/84, heart rate 80, pulse ox 90% on room air. Patient has been afebrile. She has been continued on cefepime by Dr. Sheppard right groin infection. Plan is for patient to return to [facility] for subacute rehab. REVIEW OF SYSTEMS Constitutional: positive for fever, No chills, no night sweats. Reports weight loss. Reports weakness, Reports fatigue no lethargy. NO daytime sleepiness. HEENT: No headache. positive for dizziness. Reports difficulty swallowing. No nasal drainage or congestion. No epistaxis. No sore throat. Lungs: No shortness of breath, no cough, no sputum production. No wheezing. Cardiovascular: No chest pain, no lower extremity edema. No palpitations. No paroxysmal nocturnal dyspnea. No orthopnea. No lightheadedness or dizziness. No syncopal episodes. Abdominal: Reports abdominal pain. Reports nausea, no vomiting. no diarrhea. No constipation. No bloody or tarry stools. Reports loss of appetite. Genitourinary: No dysuria, increased frequency, urgency. No urinary retention. Musculoskeletal: No myalgias. positive for muscle weakness, reports balance issues. Integumentary: Right AKA with minima erythema to the side no drainage, right groin non healing wound Neurologic: No aphasia. No facial droop. No change in mentation. No head injury. No headache. No paralysis. No paresthesia. Psychiatric: Reports depression. Reports anxiety. No mood swings. Endocrine: abnormal blood sugars. positive for weight change. No excessive sweating or thirst. No cold intolerance. PHYSICAL EXAMINATION Gen: This is a 63-year-old female. She is resting on ER bed and appears to be in no acute distress. HEENT: Head is atraumatic, normocephalic. Pupils equal, round. Sclerae is anicteric. Mucous members of the mouth are somewhat dry. NECK: Supple. No JVD. No lymphadenopathy. No thyromegaly. LUNGS: Clear to auscultation. No wheezes or rhonchi. No intercostal retractions. 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 ABDOMEN: Soft, mild tenderness in the epigastric area and no rebound or guarding positive bowel sounds, there is a right non healing wound to the right groin that appears to have a clear base with minimal exudate. EXTREMITIES: Right above-knee amputation with sara appears to be intact, minimal redness to the medial side of the stump of any drainage, the left leg dorsalis pedis could not be palpated neither posterior tibialis, no evidence of any ulcers. NEUROLOGICAL: Patient is awake, alert and oriented x3. Cranial nerves 2 through 12 are grossly intact muscle power were 3 out of 5 in upper extremity is, and 3 out of 5 in the left lower extremity. She does have a right above-knee amputation. ASSESSMENT AND PLAN 1. Metabolic encephalopathy likely related to hypoglycemia and possible infected nonhealing wound in the right groin. Cultures were obtained continue cefepime 2 g IV piggyback every 8 hours, monitor the patient rate closely decrease Hydrocodone to bid and discontinue Xanax and decrease Gabapentin to bid 2. Status post right hjtru-ebp-qjkf amputation. Seems to be okay vascular surgery evaluated the patient already. 3. Coronary artery disease with recent stent of the RCA due to recent in-stent restenosis. Patient has had previous multiple cardiac stents to the RCA and mid LAD, obtuse marginal branch. Continue patient on Plavix 75 mg daily, Lopressor 25 mg twice daily, Atorvastatin 40 mg daily. 4. Diabetes mellitus type 2 uncontrolled with hypoglycemia. Levemir to 12 units at bedtime along with a sliding scale insulin. Provide snack at bedtime. 5. Hyperlipidemia. Continue Atorvastatin 40 mg po daily, keep LDL cholesterol 55-70. 6. Chronic DVT and PEs. Continue patient on eliquis 5 mg twice daily for life 7. Orthostatic hypotension continue patient on Midodrin 5 mg po tid 8. Hypertension and hypertensive cardiovascular disease. Continue metoprolol 25 mg orally twice every day. 9. Gastroesophageal reflux disease Continue Pantoprazole 40 mg daily. 10. Diabetic neuropathy. we will continue wit Gabapentin 400 mg po and decrease to bis 11. Generalized anxiety disorder, recurrent depression. Continue Cymbalta 60 mg po bid 13. DVT prophylaxis. Continue Eliquis 5 mg po bid 14. GI prophylaxis. Continue patient on Protonix 40 mg po daily 15. PT evaluation. 16. 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 17, Hoarsness . we will start Flonas nasal spray bid along with Nasal saline spray tid Impression and plan of care have been directed as dictated by the signing physician. Kerri Kevin nurse practitioner acting as scribe for signing physician. Objective - Vital Signs Vital signs: Vital Signs Temp 97.8 F 07/08/23 08:30 Pulse 67 07/08/23 08:30 Resp 17 07/08/23 08:30 BP 146/79 07/08/23 08:30 Pulse Ox 98 07/08/23 08:30 FiO2 Intake & Output 07/07/23 07/08/23 07/08/23 18:59 06:59 18:59 Intake Total 600 480 Output Total 700 2750 400 Balance -100 -2750 80 Intake: Oral 600 480 Output: Urine 700 2750 400 Other: Voiding Method Diaper Diaper Diaper Incontinent Incontinent Incontinent External Catheter External Catheter External Catheter # Voids 2 - Labs CBC & Chem 7: 07/08/23 06:17 07/08/23 06:17 Labs: Abnormal Lab Results - Last 24 Hours (Table) 07/07/23 07/07/23 07/08/23 Range/Units 16:34 21:04 06:15 Hgb (11.4-16.0) gm/dL MCHC (31.0-37.0) g/dL RDW (11.5-15.5) % Lymphocytes # (1.0-4.8) k/uL Glucose (74-99) mg/dL POC Glucose (mg/dL) 227 H 200 H 247 H (70-110) mg/dL Calcium (8.4-10.2) mg/dL Total Protein (6.3-8.2) g/dL Albumin (3.5-5.0) g/dL 07/08/23 07/08/23 07/08/23 Range/Units 06:17 06:17 11:13 Hgb 10.5 L (11.4-16.0) gm/dL MCHC 30.5 L (31.0-37.0) g/dL RDW 19.4 H (11.5-15.5) % Lymphocytes # 0.9 L (1.0-4.8) k/uL Glucose 225 H (74-99) mg/dL POC Glucose (mg/dL) 222 H (70-110) mg/dL Calcium 7.7 L (8.4-10.2) mg/dL Total Protein 5.0 L (6.3-8.2) g/dL Albumin 2.0 L (3.5-5.0) g/dL Microbiology - Last 24 Hours (Table) 07/04/23 11:45 Blood Culture - Preliminary Blood
[2023-07-08] MEDS: ACETAMINOPHEN TAB 500 MG TAB PO PRN (16:25)
[2023-07-08 16:33] LABS: Glucose,Whole Blood 200 mg/dL (70-110)
[2023-07-08] MEDS: ATORVASTATIN 40 MG TAB PO SCH (17:19)
[2023-07-08 21:10] LABS: Glucose,Whole Blood 204 mg/dL (70-110)
[2023-07-08] MEDS: INSULIN DETEMIR (LEVEMIR) 100 UNIT/ML SYR SQ SCH (21:11)
[2023-07-09] MEDS: HYDROcodone/APAP 7.5-325MG 1 EACH TAB PO PRN ×2 (00:48→08:43)
[2023-07-09 06:14] LABS: Glucose,Whole Blood 184 mg/dL (70-110)
[2023-07-09] MEDS: MIDODRINE 5 MG TAB PO SCH ×3 (06:18→21:38)
[2023-07-09] MEDS: CEFEPIME 2 GM in SODIUM CHLORIDE 0.9% 100 ML IVPB SCH ×2 (06:19→16:43)
[2023-07-09] MEDS: INSULIN ASPART (NovoLOG) 100 UNIT/ML VIAL SQ SCH ×3 (06:20→16:43)
[2023-07-09] MEDS: ACETAMINOPHEN TAB 500 MG TAB PO PRN (06:33)
[2023-07-09] MEDS: DULoxetine HCL 60 MG CAPSULE.DR PO SCH ×2 (08:42→20:18)
[2023-07-09] MEDS: PANTOPRAZOLE 40 MG TABLET PO SCH (08:42)
[2023-07-09] MEDS: METOPROLOL TARTRATE 25 MG TAB PO SCH ×2 (08:42→16:43)
[2023-07-09] MEDS: CLOPIDOGREL 75 MG TAB PO SCH (08:43)
[2023-07-09] MEDS: APIXABAN 5 MG TAB PO SCH ×2 (08:43→16:42)
[2023-07-09] MEDS: GABAPENTIN 400 MG CAP PO SCH ×2 (08:43→20:18)
[2023-07-09] MEDS: FLUTICASONE 50MCG/SPRAY NASAL 16GM EA NOSTRIL SCH ×2 (08:44→20:18)
[2023-07-09 11:47] LABS: Glucose,Whole Blood 202 mg/dL (70-110)
--- NOTE | 2023-07-09 14:57 | P.PN ---
Subjective Progress Note Date: 07/08/23 Principal diagnosis: Reason for follow-up with leukocytosis and right lower abdominal wall wound Patient is a 63-year-old female with a past medical history significant for diabetes mellitus coronary disease DVT patient did have a history of peripheral arterial disease and recently did have a right rignc-vvi-cjhw amputation patient also have a 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 from previous surgical intervention, patient has been sent to the ER from a local [facility] for evaluation of hallucination and mental status changes patient did have elevated white count and also diarrhea stool for C. diff negative On today's evaluation that is 07/08/2023 the patient remains to be afebrile, the patient is breathing comfortably on room air and no need for supplemental oxygen, the patient denies having any chest pain denies any cough or sputum production, patient denies any abdominal pain no nausea vomiting or any diarrhea, called the patient denies pain to the right AKA stump or any drainage Patient white count 5.8, creatinine 0.67 Objective - Vital Signs Vital signs: Vital Signs Temp 97.6 F 07/08/23 16:40 Pulse 72 07/08/23 16:40 Resp 16 07/08/23 16:40 BP 139/83 07/08/23 16:40 Pulse Ox 99 07/08/23 16:40 FiO2 Intake & Output 07/08/23 07/08/23 07/09/23 06:59 18:59 06:59 Intake Total 480 Output Total 2750 1025 Balance -2750 -545 Intake: Oral 480 Output: Urine 2750 1025 Other: Voiding Method Diaper Diaper Incontinent Incontinent External Catheter External Catheter # Voids 2 # Bowel Movements 0 - Exam GENERAL DESCRIPTION: Middle-age female lying in bed in no distress RESPIRATORY SYSTEM: Unlabored breathing , clear to auscultation anteriorly HEART: S1 S2 regular rate and rhythm , ABDOMEN: Soft , right lower abdominal/groin wound currently dressed EXTREMITIES: Right AKA stump currently dressed - Labs CBC & Chem 7: 07/08/23 06:17 07/08/23 06:17 Labs: Abnormal Lab Results - Last 24 Hours (Table) 07/07/23 07/08/23 07/08/23 Range/Units 21:04 06:15 06:17 Hgb 10.5 L (11.4-16.0) gm/dL MCHC 30.5 L (31.0-37.0) g/dL RDW 19.4 H (11.5-15.5) % Lymphocytes # 0.9 L (1.0-4.8) k/uL Glucose (74-99) mg/dL POC Glucose (mg/dL) 200 H 247 H (70-110) mg/dL Calcium (8.4-10.2) mg/dL Total Protein (6.3-8.2) g/dL Albumin (3.5-5.0) g/dL 07/08/23 07/08/23 07/08/23 Range/Units 06:17 11:13 16:31 Hgb (11.4-16.0) gm/dL MCHC (31.0-37.0) g/dL RDW (11.5-15.5) % Lymphocytes # (1.0-4.8) k/uL Glucose 225 H (74-99) mg/dL POC Glucose (mg/dL) 222 H 200 H (70-110) mg/dL Calcium 7.7 L (8.4-10.2) mg/dL Total Protein 5.0 L (6.3-8.2) g/dL Albumin 2.0 L (3.5-5.0) g/dL Microbiology - Last 24 Hours (Table) 07/04/23 11:45 Blood Culture - Preliminary Blood Assessment and Plan (1) Abdominal wall skin ulcer Current Visit: Yes Status: Acute Code(s): L98.499 - NON-PRESSURE CHRONIC ULCER OF SKIN OF SITES W UNSP SEVERITY SNOMED Code(s): 758075536 (2) Leukocytosis Current Visit: Yes Status: Acute Code(s): D72.829 - ELEVATED WHITE BLOOD CELL COUNT, UNSPECIFIED SNOMED Code(s): 939543955 Plan: 1patient presented to hospital with mental status changes and this patient did have a mild elevated white count patient also have a 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 however CT abdominal pelvis today shows overall decrease in the fluid in that location and no significant redness around the wound was noticed minimal soft tissue at the base clinic suspicious know for any worsening wound infection to the right lower abdominal/groin area, the patient right [id number] potation site post removal of sara minimal erythema no d rainage 2-local wound care to the right groin wound will be continued with Aquacel silver dressing change daily 3-patient did have clinical improvement and white count has normalized, will continue with cefepime and monitor clinical course closely Dictation was produced using [employer] dictation software. please excuse any grammatical, word or spelling errors. Time with Patient: Less than 30
--- NOTE | 2023-07-09 14:59 | P.PN ---
Subjective Progress Note Date: 07/09/23 Principal diagnosis: Reason for follow-up with leukocytosis and right lower abdominal wall wound Patient is a 63-year-old female with a past medical history significant for diabetes mellitus coronary disease DVT patient did have a history of peripheral arterial disease and recently did have a right dzwrr-nxw-iixf amputation patient also have a 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 from previous surgical intervention, patient has been sent to the ER from a local [facility] for evaluation of hallucination and mental status changes patient did have elevated white count and also diarrhea stool for C. diff negative On today's evaluation that is 07/09/2023, the patient continues to be afebrile and is breathing comfortably on room air, and patient denies any shortness of breath, chest pain, no cough or sputum production, patient denies nausea/vomiting /diarrhea and no abdominal pain. the patient denies pain to the right AKA stump Patient white count 5.8, creatinine 0.67 as of 07/08/2023 Objective - Vital Signs Vital signs: Vital Signs Temp 97.8 F 07/09/23 08:00 Pulse 76 07/09/23 08:00 Resp 18 07/09/23 08:00 BP 131/81 07/09/23 08:00 Pulse Ox 100 07/09/23 08:00 FiO2 Intake & Output 07/08/23 07/09/23 07/09/23 18:59 06:59 18:59 Intake Total 480 240 Output Total 1025 700 150 Balance -545 -700 90 Weight 84.6 kg Intake: Oral 480 240 Output: Urine 1025 700 150 Other: Voiding Method Diaper Diaper Diaper Incontinent Incontinent Incontinent External Catheter External Catheter External Catheter # Voids 1 # Bowel Movements 0 - Exam GENERAL DESCRIPTION: Middle-age female lying in bed in no distress RESPIRATORY SYSTEM: Unlabored breathing , clear to auscultation anteriorly HEART: S1 S2 regular rate and rhythm , ABDOMEN: Soft , right lower abdominal/groin wound currently dressed EXTREMITIES: Right AKA stump currently dressed - Labs CBC & Chem 7: 07/08/23 06:17 07/08/23 06:17 Labs: Abnormal Lab Results - Last 24 Hours (Table) 07/08/23 07/08/23 07/09/23 Range/Units 16:31 21:09 06:12 POC Glucose (mg/dL) 200 H 204 H 184 H (70-110) mg/dL 07/09/23 Range/Units 11:46 POC Glucose (mg/dL) 202 H (70-110) mg/dL Assessment and Plan (1) Abdominal wall skin ulcer Current Visit: Yes Status: Acute Code(s): L98.499 - NON-PRESSURE CHRONIC ULCER OF SKIN OF SITES W UNSP SEVERITY SNOMED Code(s): 447581403 (2) Leukocytosis Current Visit: Yes Status: Acute Code(s): D72.829 - ELEVATED WHITE BLOOD CELL COUNT, UNSPECIFIED SNOMED Code(s): 779454413 Plan: 1patient presented to hospital with mental status changes and this patient did have a mild elevated white count patient also have a 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 however CT abdominal pelvis today shows overall decrease in the fluid in that location and no significant redness around the wound was noti bala minimal soft tissue at the base clinic suspicious know for any worsening wound infection to the right lower abdominal/groin area, the patient right [id number] potation site post removal of sara minimal erythema no drainage 2-local wound care to the right groin wound will be continued with Aquacel silver dressing change daily 3-patient did have clinical improvement, the patient remains to be febrile and white count has normalized, 4-patient to continue with cefepime while inpatient and monitor clinical course closely Dictation was produced using [employer] dictation software. please excuse any grammatical, word or spelling errors. Time with Patient: Less than 30
[2023-07-09] MEDS: HYDROcodone/APAP 7.5-325MG 1 EACH TAB PO SCH ×2 (15:41→21:38)
[2023-07-09 16:20] LABS: Glucose,Whole Blood 172 mg/dL (70-110)
[2023-07-09] MEDS: ATORVASTATIN 40 MG TAB PO SCH (16:43)
[2023-07-09 19:59] LABS: Glucose,Whole Blood 138 mg/dL (70-110)
[2023-07-09] MEDS: INSULIN DETEMIR (LEVEMIR) 100 UNIT/ML SYR SQ SCH (20:27)
[2023-07-10] MEDS: ACETAMINOPHEN TAB 500 MG TAB PO PRN (05:28)
[2023-07-10] MEDS: MIDODRINE 5 MG TAB PO SCH ×2 (05:28→15:27)
[2023-07-10] MEDS: CEFEPIME 2 GM in SODIUM CHLORIDE 0.9% 100 ML IVPB SCH (05:28)
[2023-07-10 06:22] LABS: Glucose,Whole Blood 132 mg/dL (70-110)
[2023-07-10] MEDS: INSULIN ASPART (NovoLOG) 100 UNIT/ML VIAL SQ SCH ×2 (07:22→12:06)
[2023-07-10] MEDS: CLOPIDOGREL 75 MG TAB PO SCH (08:12)
[2023-07-10] MEDS: PANTOPRAZOLE 40 MG TABLET PO SCH (08:12)
[2023-07-10] MEDS: DULoxetine HCL 60 MG CAPSULE.DR PO SCH (08:12)
[2023-07-10] MEDS: GABAPENTIN 400 MG CAP PO SCH (08:12)
[2023-07-10] MEDS: APIXABAN 5 MG TAB PO SCH (08:12)
[2023-07-10] MEDS: METOPROLOL TARTRATE 25 MG TAB PO SCH (08:12)
[2023-07-10] MEDS: HYDROcodone/APAP 7.5-325MG 1 EACH TAB PO SCH ×2 (08:13→15:45)
--- NOTE | 2023-07-10 09:31 | P.PN ---
Subjective Progress Note Date: 07/09/23 HISTORY OF PRESENT ILLNESS This is a 63-year-old female patient of mine with history of CAD with multiple cardiac stents in mid RCA, mid LAD, obtuse marginal branch and followed by Dr. Bill closely, peripheral artery disease with previous stenting done as well has amputation of the right great toe secondary to osteomyelitis, CVA with no residual deficits, hypertension, COPD, diabetes mellitus type 2, previous multiple DVT and PE requiring chronic anticoagulation on eliquis, history of GI bleed secondary to antral gastritis, esophagitis, vitamin D deficiency, autono margot hypotension on midodrine, history of left humerus fracture. resume with patient April 02 through April 15 at which time she presented to the hospital due to right second and fifth toe ischemic change. A CT angiogram showed evidence of occlusion of the right superficial femoral artery and 2 occluded segments 1 in the mid thigh about 3 cm and another into the right popliteal artery at 13 cm length, occlusion of the right iliac artery into the common femoral artery. Patient was seen in consultation by vascular surgery. Arterial ultrasound showed lower extremity abnormal on the right with HERMINIA suggests severe atherosclerotic disease. Critical stenosis not excluded. Plan for open bypass surgery with vascular surgery was made but a cardiology consult was requested. Patient was seen by Dr. Bill and had chest pain complaint and Due to critical in-stent restenosis and subsequently underwent cardiac catheterization which revealed critical in-stent restenosis of the RCA and Dr. Bill present performed stenting of the RCA. There was also intermediate disease in the first obtuse marginal branch of the left circumflex, intermediate disease involving the LAD and mildly elevated left sided filling pressures after that patient developed to have significant hematoma require blood for sedation and ICU management, and after that underwent incision and drainage of the hematoma, and she also underwent the bright bed of the Achilles wound after she has had a graft that did not last much patient was treated with IV antibiotic and eventually the decision was made to go for a right [id number] amputation as a definitive treatment for her peripheral vascular disease patient had that and she was sent to [facility] for physical therapy rehabilitation, while she was at [facility] patient developed to have a significant Covid 19 infection as part of the epidemic in the skilled nursing, and the patient was treated patient has been complaining of increased hypotension with generalized weakness and dizziness, initially she was started on Midrin 5 minute gram orally 3 times every day, she was taken off her RISHI inhibitor, and the patient continued to deteriorate, she was complaining of increased abdominal pain she was sent to the emergency department at [facility] and she was found to have a minimal redness at the site of the stump where her sara are, and also she was complaining of increased abdominal pain, so she was admitted to the hospital for evaluation and treatment, she did have leukocytosis, she was started on IV antibiotic in the form of cefepime, and she was seen in consultation by vascular surgery for further recommendation and treatment she also did appear to have this right groin wound that has been chronic since she had the debridement of the hematoma and also was seen and evaluated by vascular surgery was recommended to continue with current treatment plan. 07/05: Patient is laying down in bed she is a bit more awake today and more alert today she is not as confused, her metabolic encephalopathy has resolved, continue IV antibiotic in the form of cefepime 2 g IV piggyback every 8 hours, she was seen earlier by vascular surgery and infectious disease, her sara were removed, continue local care for the nonhealing wound in the right groin, we will follow-up with the patient awaiting the final result of the culture, patient was instructed to eat more continue with protein drinks as well, physical therapy evaluation as the patient will need to continue with physical therapy so she will be ready to have her prosthetic done down the line 122: Patient is more awake now she did have an episode of hypoglycemia in the morning when her blood glucose level dropped to 48, she did receive half an amp of D50 as well as orange juice, as well as phi crackers, we will check cortisol level, we'll decrease her Levemir to 12 units at bedtime, monitor the patient very closely, patient will be given a snack prior to her bedtime, patient will be seen and evaluated by physical therapy, patient will likely be transferred back to [facility] after the final result of the cultures are back, continue IV antibiotic in the form of cefepime, patient has been followed by infectious disease as well as by vascular surgery. 07/07: Patient sitting up in bed in no apparent distress, she is feeling better today, she is more awake and more alert, her blood glucose level in the morning was 123, continue current treatment plan with cefepime, continue to monitor the patient very closely, we will follow-up with the patient very closely and likely will be transferred back to [facility] in the next 24 hours. Patient continues to be on cefepime 2 g IV piggyback every 8 hours. ID is following. 07/08: She is seen today in follow-up. Apparently after she worked with physical therapy today she had an episode of vomiting. She feels okay now. No abdominal pain. She is sitting up in a chair and son is at bedside. She has started using the nasal spray. Cortisol level was normal at 16. Blood work today revealed hemoglobin of 10.5, creatinine 0.67. Capillary blood glucose running in the 200s. Blood pressure is 154/84, heart rate 80, pulse ox 90% on room air. Patient has been afebrile. She has been continued on cefepime by Dr. Sheppard right groin infection. Plan is for patient to return to [facility] for subacute rehab. 07/09: The patient has been afebrile, heart rate is in the 70s, blood pressure 107/70, pulse ox 100% on room air. Patient denies having chest pain, no shortness of breath. It seems the nausea and vomiting have resolved from . Blood Glucose Running [id number]. Stool Culture Negative for Salmonella, Shigella, Campylobacter, E. coli 0157. Local wound care to the groin is Aquacel Ag dressing change daily. Patient has been continued on IV cefepime per ID. Despite discharge in the next 24-48 hours. Awaiting insurance authorization for subacute rehab. REVIEW OF SYSTEMS Constitutional: positive for fever, No chills, no night sweats. Reports weight loss. Reports weakness, Reports fatigue no lethargy. NO daytime sleepiness. HEENT: No headache. positive for dizziness. Reports difficulty swallowing. No nasal drainage or congestion. No epistaxis. No sore throat. Lungs: No shortness of breath, no cough, no sputum production. No wheezing. Cardiovascular: No chest pain, no lower extremity edema. No palpitations. No paroxysmal nocturnal dyspnea. No orthopnea. No lightheadedness or dizziness. No syncopal episodes. Abdominal: Reports abdominal pain. Reports nausea, no vomiting. no diarrhea. No constipation. No bloody or tarry stools. Reports loss of appetite. Genitourinary: No dysuria, increased frequency, urgency. No urinary retention. Musculoskeletal: No myalgias. positive for muscle weakness, reports balance issues. Integumentary: Right AKA with minima erythema to the side no drainage, right groin non healing wound Neurologic: No aphasia. No facial droop. No change in mentation. No head injury. No headache. No paralysis. No paresthesia. Psychiatric: Reports depression. Reports anxiety. No mood swings. Endocrine: abnormal blood sugars. positive for weight change. No excessive sweating or thirst. No cold intolerance. PHYSICAL EXAMINATION Gen: This is a 63-year-old female. She is resting on ER bed and ap pears to be in no acute distress. HEENT: Head is atraumatic, normocephalic. Pupils equal, round. Sclerae is anicteric. Mucous members of the mouth are somewhat dry. NECK: Supple. No JVD. No lymphadenopathy. No thyromegaly. LUNGS: Clear to auscultation. No wheezes or rhonchi. No intercostal retr actions. 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 ABDOMEN: Soft, mild tenderness in the epigastric area and no rebound or guarding positive bowel sounds, there is a right non healing wound to the right groin that appears to have a clear base with minimal exudate. EXTREMITIES: Right above-knee amputation with sara appears to be intact, minimal redness to the medial side of the stump of any drainage, the left leg dorsalis pedis could not be palpated neither posterior tibialis, no evidence of any ulcers. NEUROLOGICAL: Patient is awake, alert and oriented x3. Cranial nerves 2 through 12 are grossly intact muscle power were 3 out of 5 in upper extremity is, and 3 out of 5 in the left lower extremity. She does have a right above-knee amputation. ASSESSMENT AND PLAN 1. Metabolic encephalopathy likely related to hypoglycemia and possible infected nonhealing wound in the right groin. Cultures were obtained continue cefepime 2 g IV piggyback every 8 hours, monitor the patient rate closely decrease Hydrocodone to bid and discontinue Xanax and decrease Gabapentin to bid 2. Status post right [id number] amputation. Seems to be okay vascular surgery evaluated the patient already. 3. Coronary artery disease with recent stent of the RCA due to recent in-stent restenosis. Patient has had previous multiple cardiac stents to the RCA and mid LAD, obtuse marginal branch. Continue patient on Plavix 75 mg daily, Lopressor 25 mg twice daily, Atorvastatin 40 mg daily. 4. Diabetes mellitus type 2 uncontrolled with hypoglycemia. Levemir to 12 units at bedtime along with a sliding scale insulin. Provide snack at bedtime. 5. Hyperlipidemia. Continue Atorvastatin 40 mg po daily, keep LDL cholesterol 55-70. 6. Chronic DVT and PEs. Continue patient on eliquis 5 mg twice daily for life 7. Orthostatic hypotension continue patient on Midodrin 5 mg po tid 8. Hypertension and hypertensive cardiovascular disease. Continue metoprolol 25 mg orally twice every day. 9. Gastroesophageal reflux disease Continue Pantoprazole 40 mg daily. 10. Diabetic neuropathy. we will continue wit Gabapentin 400 mg po and decrease to bis 11. Generalized anxiety disorder, recurrent depression. Continue Cymbalta 60 mg po bid 13. DVT prophylaxis. Continue Eliquis 5 mg po bid 14. GI prophylaxis. Continue patient on Protonix 40 mg po daily 15. PT evaluation. 16. 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 17, Hoarsness . we will start Flonase nasal spray bid along with Nasal saline sp ray tid Impression and plan of care have been directed as dictated by the signing physician. Kerri Kevin nurse practitioner acting as scribe for signing physician. Objective - Vital Signs Vital signs: Vital Signs Temp 97.7 F 07/09/23 12:00 Pulse 68 07/09/23 13:52 Resp 18 07/09/23 13:52 BP 107/70 07/09/23 12:00 Pulse Ox 100 07/09/23 12:00 FiO2 Intake & Output 07/08/23 07/09/23 07/09/23 18:59 06:59 18:59 Intake Total 480 240 Output Total 1025 700 150 Balance -545 -700 90 Weight 84.6 kg Intake: Oral 480 240 Output: Urine 1025 700 150 Other: Voiding Method Diaper Diaper Diaper Incontinent Incontinent Incontinent External Catheter External Catheter External Catheter # Voids 1 # Bowel Movements 0 - Labs CBC & Chem 7: 07/08/23 06:17 07/08/23 06:17 Labs: Abnormal Lab Results - Last 24 Hours (Table) 07/08/23 07/08/23 07/09/23 Range/Units 16:31 21:09 06:12 POC Glucose (mg/dL) 200 H 204 H 184 H (70-110) mg/dL 07/09/23 Range/Units 11:46 POC Glucose (mg/dL) 202 H (70-110) mg/dL
--- NOTE | 2023-07-10 09:45 | P.DS ---
Providers Date of admission: 07/04/23 14:54 Expected date of discharge: 07/10/23 Attending physician: Tramaine Tejeda Consults: 07/04/23 14:53 Consult Physician Routine Consulting Provider: Zaira Sheppard Consult Reason/Comments: abdominal wall wound Do you want consulting provider notified?: Yes Primary care physician: Tramaine Tejeda Hospital Course: HISTORY OF PRESENT ILLNESS This is a 63-year-old female patient of mine with history of CAD with multiple cardiac stents in mid RCA, mid LAD, obtuse marginal branch and followed by Dr. Bill closely, peripheral artery disease with previous stenting done as well has amputation of the right great toe secondary to osteomyelitis, CVA with no residual deficits, hypertension, COPD, diabetes mellitus type 2, previous multiple DVT and PE requiring chronic anticoagulation on eliquis, history of GI bleed secondary to antral gastritis, esophagitis, vitamin D deficiency, autonomic hypotension on midodrine, history of left humerus fracture. resume with patient April 02 through April 15 at which time she presented to the hospital due to right second and fifth toe ischemic change. A CT angiogram sh owed evidence of occlusion of the right superficial femoral artery and 2 occluded segments 1 in the mid thigh about 3 cm and another into the right popliteal artery at 13 cm length, occlusion of the right iliac artery into the common femoral artery. Patient was seen in consultation by vascular surgery. Arterial ultrasound showed lower extremity abnormal on the right with HERMINIA suggests severe atherosclerotic disease. Critical stenosis not excluded. Plan for open bypass surgery with vascular surgery was made but a cardiology consult was requested. Patient was seen by Dr. Bill and had chest pain complaint and Due to critical in-stent restenosis and subsequently underwent cardiac catheterization which revealed critical in-stent restenosis of the RCA and Dr. Bill present performed stenting of the RCA. There was also intermediate disease in the first obtuse marginal branch of the left circumflex, intermediate disease involving the LAD and mildly elevated left sided filling pressures after that patient developed to have significant hematoma require blood for sedation and ICU management, and after that underwent incision and drainage of the hematoma, and she also underwent the bright bed of the Achilles wound after she has had a graft that did not last much patient was treated with IV antibiotic and eventually the decision was made to go for a right [id number] amputation as a definitive treatment for her peripheral vascular disease patient had that and she was sent to [facility] for physical therapy rehabilitation, while she was at [facility] patient developed to have a significant Covid 19 infection as part of the epidemic in the [facility], and the patient was treated patient has been complaining of increased hypotension with generalized weakness and dizziness, initially she was started on Midrin 5 minute gram orally 3 times every day, she was taken off her RISHI inhibitor, and the patient continued to deteriorate, she was complaining of increased abdominal pain she was sent to the emergency department at [facility] and she was found to have a minimal redness at the site of the stump where her sara are, and also she was complaining of increased abdominal pain, so she was admitted to the hospital for evaluation and treatment, she did have leukocytosis, she was started on IV antibiotic in the form of cefepime, and she was seen in consultation by vascular surgery for further recommendation and treatment she also did appear to have this right groin wound that has been chronic since she had the debridement of the hematoma and also was seen and evaluated by vascular surgery was recommended to continue with current treatment plan. 07/05: Patient is laying down in bed she is a bit more awake today and more alert today she is not as confused, her metabolic encephalopathy has resolved, continue IV antibiotic in the form of cefepime 2 g IV piggyback every 8 hours, she was seen earlier by vascular surgery and infectious disease, her sara were removed, continue local care for the nonhealing wound in the right groin, we will follow-up with the patient awaiting the final result of the culture, patient was instructed to eat more continue with protein drinks as well, physical therapy evaluation as the patient will need to continue with physical therapy so she will be ready to have her prosthetic done down the line 122: Patient is more awake now she did have an episode of hypoglycemia in the morning when her blood glucose level dropped to 48, she did receive half an amp of D50 as well as orange juice, as well as phi crackers, we will check cortisol level, we'll decrease her Levemir to 12 units at bedtime, monitor the patient very closely, patient will be given a snack prior to her bedtime, patient will be seen and evaluated by physical therapy, patient will likely be transferred back to [facility] after the final result of the cultures are back, continue IV antibiotic in the form of cefepime, patient has been followed by infectious disease as well as by vascular surgery. 07/07: Patient sitting up in bed in no apparent distress, she is feeling better today, she is more awake and more alert, her blood glucose level in the morning was 123, continue current treatment plan with cefepime, continue to monitor the patient very closely, we will follow-up with the patient very closely and likely will be transferred back to [facility] in the next 24 hours. Patient continues to be on cefepime 2 g IV piggyback every 8 hours. ID is following. 07/08: She is seen today in follow-up. Apparently after she worked with physical therapy today she had an episode of vomiting. She feels okay now. No abdominal pain. She is sitting up in a chair and son is at bedside. She has started using the nasal spray. Cortisol level was normal at 16. Blood work today revealed hemoglobin of 10.5, creatinine 0.67. Capillary blood glucose running in the 200s. Blood pressure is 154/84, heart rate 80, pulse ox 90% on room air. Patient has been afebrile. She has been continued on cefepime by Dr. Sheppard right groin infection. Plan is for patient to return to [facility] for subacute rehab. 07/09: The patient has been afebrile, heart rate is in the 70s, blood pressure 107/70, pulse ox 100% on room air. Patient denies having chest pain, no shortness of breath. It seems the nausea and vomiting have resolved from yesterday. Blood Glucose Running [id number]. Stool Culture Negative for Salmonella, Shigella, Campylobacter, E. coli 0157. Local wound care to the groin is Aquacel Ag dressing change daily. Patient has been continued on IV cefepime per ID. Despite discharge in the next 24-48 hours. Awaiting insurance authorization for subacute rehab. 07/10: No new concerns overnight. Dr. Sheppard is recommending one week of cefepime IV piggyback. Patient remains afebrile, heart rate 74, blood pressure 132/75, pulse ox 96% on room air. Patient is receiving midodrine scheduled for blood pressure. Patient will be discharged to [facility] once insurance authorization has been obtained. DISCHARGE DIAGNOSES 1. Metabolic encephalopathy likely related to hypoglycemia and possible infected nonhealing wound in the right groin. 2. Status post right [id number] amputation. 3. Coronary artery disease with recent stent of the RCA due to recent in-stent restenosis. 4. Diabetes mellitus type 2 uncontrolled with hypoglycemia. 5. Hyperlipidemia. 6. Chronic DVT and PEs. 7. Orthostatic hypotension 8. Hypertension and hypertensive cardiovascular disease. 9. Gastroesophageal reflux disease 10. Diabetic neuropathy. 11. Generalized anxiety disorder, recurrent depression. 12. Hoarsness. DISCHARGE PLAN: [facility] for subacute rehab Greater than 35 minutes was utilized and coordinating patient's discharge. Impression and plan of care have been directed as dictated by the signing physician. Kerri Kevin nurse practitioner acting as scribe for signing physician. Patient Condition at Discharge: Stable Plan - Discharge Summary New Discharge Prescriptions: New Saline Nasal Gel [[place] Nasal Gel] 1 applic NASAL Q4HR PRN each PRN Reason: Dry Nasal Passages Fluticasone Nasal [place] [Flonase Nasal [place]] 1 spray EA NOSTRIL BID ml Acetaminophen Tab [Tylenol] 500 mg PO Q6HR PRN tab PRN Reason: Fever And/ Or Pain Benzocaine/Menthol Lozeng [Cepacol lozenge] 1 each MUCOUS MEM Q4HR PRN lozenge PRN Reason: Sore Throat Gabapentin [Neurontin] 400 mg PO BID #6 cap HYDROcodone/APAP 7.5-325MG [[place] 7.5-325] 1 each PO TID #9 tab INSULIN ASPART (NovoLOG) [NovoLOG (formulary)] 4 unit SQ AC-TID each Cefepime [Maxipime] 2 gm IVPB Q12H #14 each Continue Melatonin 3 mg PO HS@2100 Ergocalciferol (Vitamin D2) [Drisdol (50,000 Iu)] 1,250 mcg PO GUERRERO@0800 Clopidogrel [Plavix] 75 mg PO DAILY@1100 Liquacel 30 ml PO BID@0800,1700 Dapagliflozin Propanediol [Farxiga] 10 mg PO DAILY@0800 Ensure Clear 237 ml PO BID@0800,1700 INSULIN ASPART (NovoLOG) [NovoLOG (formulary)] See Protocol SQ ACHS@07,11,1630,2130 Magic Cup 1 dose PO BID-W/MEALS@12,17 Magnesium Hydroxide [Milk of Magnesia Concentrate] 7,200 mg PO DAILY PRN PRN Reason: Constipation Na Phos,M-B/Na Phos,Di-Ba [Fleet Adult] 133 ml RECTAL DAILY PRN PRN Reason: Constipation Rosuvastatin [Crestor] 20 mg PO DAILY@1700 Omeprazole [PriLOSEC] 20 mg PO DAILY@0800 Nitroglycerin Sl Tabs [Nitrostat] 0.4 mg SL Q5M PRN PRN Reason: Chest Pain Apixaban [Eliquis] 5 mg PO BID@0800,1700 Ipratropium-Albuterol Nebulize [Duoneb 0.5 mg-3 mg/3 ml Soln] 3 ml INHALATION RT-Q6H PRN each PRN Reason: Shortness Of Breath Or Wheezing bisacodyL [Dulcolax] 10 mg RECTAL DAILY PRN PRN Reason: Constipation DULoxetine HCL [Cymbalta] 60 mg PO BID@0800,2100 Glucerna Shake 237 ml PO DAILY@1700 HYDROcodone/APAP 7.5-325MG [[place] 7.5-325] 1 tab PO Q4-6H PRN PRN Reason: Pain Metoprolol Tartrate [Lopressor] 25 mg PO BID@0800,1700 Midodrine [ProAmatine] 5 mg PO TID@0600,1400,2200 ALPRAZolam [Xanax] 0.25 mg PO BID PRN 3 Days #6 tab PRN Reason: Anxiety Changed Docusate [Colace] 100 mg PO DAILY@0800 PRN #0 PRN Reason: Constipation Ferrous Sulfate [Feosol] 325 mg PO DAILY #0 Insulin Glargine,Hum.rec.anlog [Lantus Solostar Pen] 12 units SQ HS@2129 #0 Discontinued Gabapentin [Neurontin] 400 mg PO TID@0600,1400,2200 Potassium Chloride ER [K-Dur 10] 10 meq PO BID@0800,1700 Collagenase [Santyl Ointment] 1 applic TOPICAL DAILY each Discharge Medication List Rosuvastatin [Crestor] 20 mg PO DAILY@1700 01/08/23 [History] Ergocalciferol (Vitamin D2) [Drisdol (50,000 Iu)] 1,250 mcg PO GUERRERO@0800 04/01/23 [History] Melatonin 3 mg PO HS@2100 04/01/23 [History] Nitroglycerin Sl Tabs [Nitrostat] 0.4 mg SL Q5M PRN 04/01/23 [History] Omeprazole [PriLOSEC] 20 mg PO DAILY@0800 04/01/23 [History] Apixaban [Eliquis] 5 mg PO BID@0800,1700 05/20/23 [History] Clopidogrel [Plavix] 75 mg PO DAILY@1100 05/20/23 [History] Ipratropium-Albuterol Nebulize [Duoneb 0.5 mg-3 mg/3 ml Soln] 3 ml INHALATION RT-Q6H PRN each 06/14/23 [Rx] DULoxetine HCL [Cymbalta] 60 mg PO BID@0800,2100 07/04/23 [History] Dapagliflozin Propanediol [Farxiga] 10 mg PO DAILY@0800 07/04/23 [History] Ensure Clear 237 ml PO BID@0800,1700 07/04/23 [History] Glucerna Shake 237 ml PO DAILY@17007/04/23 [History] HYDROcodone/APAP 7.5-325MG [[place] 7.5-325] 1 tab PO Q4-6H PRN 07/04/23 [History] INSULIN ASPART (NovoLOG) [NovoLOG (formulary)] See Protocol SQ ACHS@07,11,1630,2130 07/04/23 [History] Liquacel 30 ml PO BID@0800,1700 07/04/23 [History] Magic Cup 1 dose PO BID-W/MEALS@12,17 07/04/23 [History] Magnesium Hydroxide [Milk of Magnesia Concentrate] 7,200 mg PO DAILY PRN 07/04/23 [History] Metoprolol Tartrate [Lopressor] 25 mg PO BID@0800,1700 07/04/23 [History] Midodrine [ProAmatine] 5 mg PO TID@0600,1400,2200 07/04/23 [History] Na Phos,M-B/Na Phos,Di-Ba [Fleet Adult] 133 ml RECTAL DAILY PRN 07/04/23 [History] bisacodyL [Dulcolax] 10 mg RECTAL DAILY PRN 07/04/23 [History] ALPRAZolam [Xanax] 0.25 mg PO BID PRN 3 Days #6 tab 07/10/23 [Rx] Acetaminophen Tab [Tylenol] 500 mg PO Q6HR PRN tab 07/10/23 [Rx] Benzocaine/Menthol Lozeng [Cepacol lozenge] 1 each MUCOUS MEM Q4HR PRN lozenge 07/10/23 [Rx] Cefepime [Maxipime] 2 gm IVPB Q12H #14 each 07/10/23 [Rx] Docusate [Colace] 100 mg PO DAILY@0800 PRN #0 07/10/23 [Rx] Ferrous Sulfate [Feosol] 325 mg PO DAILY #0 07/10/23 [Rx] Fluticasone Nasal [place] [Flonase Nasal [place]] 1 spray EA NOSTRIL BID ml 07/10/23 [Rx] Gabapentin [Neurontin] 400 mg PO BID #6 cap 07/10/23 [Rx] HYDROcodone/APAP 7.5-325MG [[place] 7.5-325] 1 each PO TID #9 tab 07/10/23 [Rx] INSULIN ASPART (NovoLOG) [NovoLOG (formulary)] 4 unit SQ AC-TID each 07/10/23 [Rx] Insulin Glargine,Hum.rec.anlog [Lantus Solostar Pen] 12 units SQ HS@2130 #0 07/10/23 [Rx] Saline Nasal Gel [[place] Nasal Gel] 1 applic NASAL Q4HR PRN each 07/10/23 [Rx] Follow up Appointment(s)/Referral(s): Tramaine Tejeda MD [Primary Care Provider] - 1 Week (at [facility]) Ambulatory/Diagnostic Orders: C Reactive Protein [LAB.AMB] Location: None Selected Complete Blood Count w/diff [LAB.AMB] Location: None Selected Comprehensive Metabolic Panel [LAB.AMB] Location: None Selected Erythrocyte Sedimentation Rate [LAB.AMB] Location: None Selected Discharge Disposition: TRANSFER TO SNF/F
[2023-07-10 10:17] VITALS: RESP 18
[2023-07-10 11:39] LABS: Glucose,Whole Blood 213 mg/dL (70-110)
[2023-07-10] MEDS: FLUTICASONE 50MCG/SPRAY NASAL 16GM EA NOSTRIL SCH (12:09)
[2023-07-10 12:40] VITALS: BMI 28.8
[2023-07-10 13:53] VITALS: BP 119/79; PULSE 76; TEMP 97.4
--- NOTE | 2023-07-10 16:55 | P.PN ---
Subjective Progress Note Date: 07/10/23 Principal diagnosis: Reason for follow-up with leukocytosis and right lower abdominal wall wound Patient is a 63-year-old female with a past medical history significant for diabetes mellitus coronary disease DVT patient did have a history of peripheral arterial disease and recently did have a right [id number] amputation patient also have a 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 from previous surgical intervention, patient has been sent to the ER from a local [facility] for evaluation of hallucination and mental status changes patient did have elevated white count and also diarrhea stool for C. diff negative On today's evaluation that is 07/10/2023 the patient remains to be afebrile, the patient is breathing comfortably on room air and no need for supplemental oxygen, the patient denies having any chest pain or cough and no sputum production, patient did have some nausea but no vomiting or any diarrhea, and no abdominal pain, the patient denies pain to the right AKA stump , patient complaining of some dizziness and lightheadedness Patient white count 5.8, creatinine 0.67 as of 07/08/2023, no new lab has been done today Objective - Vital Signs Vital signs: Vital Signs Temp 97.9 F 07/10/23 08:00 Pulse 75 07/10/23 08:00 Resp 18 07/10/23 08:00 BP 127/79 07/10/23 08:00 Pulse Ox 99 07/10/23 08:00 FiO2 Intake & Output 07/09/23 07/10/23 07/10/23 18:59 06:59 18:59 Intake Total 480 222 Output Total 650 1600 400 Balance -170 -1600 -178 Weight 83.5 kg 83.5 kg Intake: Oral 480 222 Output: Urine 650 1600 400 Other: Voiding Method Diaper Diaper Diaper Incontinent Incontinent Incontinent External Catheter External Catheter External Catheter # Voids 1 # Bowel Movements 1 - Exam GENERAL DESCRIPTION: Middle-age female lying in bed in no distress RESPIRATORY SYSTEM: Unlabored breathing , clear to auscultation anteriorly HEART: S1 S2 regular rate and rhythm , ABDOMEN: Soft , right lower abdominal/groin wound currently dressed EXTREMITIES: Right AKA stump currently dressed - Labs CBC & Chem 7: 07/08/23 06:17 07/08/23 06:17 Labs: Abnormal Lab Results - Last 24 Hours (Table) 07/09/23 07/09/23 07/10/23 Range/Units 16:17 19:58 06:20 POC Glucose (mg/dL) 172 H 138 H 132 H (70-110) mg/dL 07/10/23 Range/Units 11:37 POC Glucose (mg/dL) 213 H (70-110) mg/dL Microbiology - Last 24 Hours (Table) 07/04/23 12:35 Stool Culture - Final Stool 07/04/23 11:45 Blood Culture - Final Blood Assessment and Plan (1) Abdominal wall skin ulcer Status: Acute Code(s): L98.499 - NON-PRESSURE CHRONIC ULCER OF SKIN OF SITES W UNSP SEVERITY SNOMED Code(s): 532812390 (2) Leukocytosis Status: Acute Code(s): D72.829 - ELEVATED WHITE BLOOD CELL COUNT, UNSPECIFIED SNOMED Code(s): 076917760 Plan: 1patient presented to hospital with mental status changes and this patient did have a mild elevated white count patient also have a 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 however CT abdominal pelvis today shows overall decrease in the fluid in that location and no significant redness around the wound was noticed minimal soft tissue at the base clinic suspicious know for any worsening wound infection to the right lower abdominal/groin area, the patient right [id number] potation site post removal of sara minimal erythema no drainage 2-local wound care to the right groin wound will be continued with Aquacel silver dressing change daily 3-patient did have clinical improvement, the patient remains to be febrile and white count has normalized, 4-patient seemed to have shown clinical improvement with cefepime which will be continued for about a week on discharge discuss with the SEXUAL ASSAULT NURSE for admitting team working on discharge Dictation was produced using [employer] dictation software. please excuse any grammatical, word or spelling errors. Time with Patient: Less than 30
== END 2023-07-10 16:35 | DRG 637 ==
LOC: EC 11:16 → 3SCARD 14:54
PROVIDERS: ADMIT Internal Medicine; ATTEND Internal Medicine
PROC: 8E0YXY8 Suture Removal from Lower Extremity (ICD-10-PCS; principal; 2023-07-05)
DX: E11.649 Type 2 diabetes mellitus with hypoglycemia without coma (principal); G93.41 Metabolic encephalopathy; I69.354 Hemiplegia and hemiparesis following cerebral infarction affecting left non-dominant side; F33.9 Major depressive disorder, recurrent, unspecified; L98.499 Non-pressure chronic ulcer of skin of other sites with unspecified severity; Z89.611 Acquired absence of right leg above knee; E11.42 Type 2 diabetes mellitus with diabetic polyneuropathy; E11.51 Type 2 diabetes mellitus with diabetic peripheral angiopathy without gangrene; J44.9 Chronic obstructive pulmonary disease, unspecified; Z79.4 Long term (current) use of insulin; I11.9 Hypertensive heart disease without heart failure; K76.0 Fatty (change of) liver, not elsewhere classified; I25.10 Atherosclerotic heart disease of native coronary artery without angina pectoris; E78.5 Hyperlipidemia, unspecified; I95.1 Orthostatic hypotension; K21.9 Gastro-esophageal reflux disease without esophagitis; F41.1 Generalized anxiety disorder; E55.9 Vitamin D deficiency, unspecified; G89.4 Chronic pain syndrome; M51.16 Intervertebral disc disorders with radiculopathy, lumbar region; F17.210 Nicotine dependence, cigarettes, uncomplicated; R19.7 Diarrhea, unspecified; Z96.612 Presence of left artificial shoulder joint; Z95.820 Peripheral vascular angioplasty status with implants and grafts; I25.2 Old myocardial infarction; Z79.02 Long term (current) use of antithrombotics/antiplatelets; Z79.899 Other long term (current) drug therapy; Z86.718 Personal history of other venous thrombosis and embolism; Z86.711 Personal history of pulmonary embolism; Z79.01 Long term (current) use of anticoagulants; Z85.828 Personal history of other malignant neoplasm of skin; Z28.311 Partially vaccinated for COVID-19; Z91.81 History of falling; Z95.5 Presence of coronary angioplasty implant and graft; Z98.1 Arthrodesis status; Z79.84 Long term (current) use of oral hypoglycemic drugs; Z79.891 Long term (current) use of opiate analgesic; Z88.1 Allergy status to other antibiotic agents; Z87.39 Personal history of other diseases of the musculoskeletal system and connective tissue; Z87.19 Personal history of other diseases of the digestive system; Z86.16 Personal history of COVID-19
CPT/HCPCS: 36415; 74177; 80048; 80053; 81003; 82272; 82533; 83605; 83630; 83690; 85025; 87040; 87045; 87046; 87324; 96361; 96365; 96366; 96375; 96376; 99285

== ENCOUNTER 2023-08-09 11:17 | Inpatient (IN) | payer MEDICARE, OTHER ==
[2023-08-09] MEDS ORDERED: SODIUM CHLORIDE 0.9% 1,000 ML IV STA (12:23)
--- NOTE | 2023-08-09 12:23 | ED ---
Nausea/Vomiting/Diarrhea HPI - General Chief complaint: Nausea/Vomiting/Diarrhea Stated complaint: NVD Time Seen by Provider: 08/09/23 12:07 Source: patient, EMS Mode of arrival: EMS Limitations: physical limitation - History of Present Illness Initial comments: 63-year-old female presents to the emergency department from [facility]. Patient was sent in for diarrhea. States it's been going on since [place]. She had profound constipation and was given several medications to make her go to the bathroom. She then developed diarrhea and states that it has yet to slow down. She has bowel movements several times throughout the day every day. She has been given Imodium but states that she continues to have diarrhea. She has some lower abdominal pain which is chronic. 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 Last use of antibiotics was 2 weeks ago. She was tested for C. diff and it was negative. She has noted that there has become some purulent drainage from her incision site on her right leg. Denies any fevers. No other alleviating, precipitating or modifying factors - Related Data Home Medications Medication Instructions Recorded Confirmed Rosuvastatin [Crestor] 20 mg PO DAILY@1700 01/08/23 08/09/23 Ergocalciferol (Vitamin D2) 1,250 mcg PO GUERRERO 04/01/23 08/09/23 [Drisdol (50,000 Iu)] Nitroglycerin Sl Tabs [Nitrostat] 0.4 mg SL Q5M PRN 04/01/23 08/09/23 Omeprazole [PriLOSEC] 20 mg PO DAILY 04/01/23 08/09/23 Apixaban [Eliquis] 5 mg PO BID@0800,1700 05/20/23 08/09/23 Clopidogrel [Plavix] 75 mg PO DAILY@1100 05/20/23 08/09/23 DULoxetine HCL [Cymbalta] 60 mg PO BID 07/04/23 08/09/23 Dapagliflozin Propanediol [Farxiga] 10 mg PO DAILY 07/04/23 08/09/23 INSULIN ASPART (NovoLOG) [NovoLOG See Protocol SQ 07/04/23 08/09/23 (formulary)] ACHS@07,11,1630,2130 Magnesium Hydroxide [Milk of 7,200 mg PO DAILY PRN 07/04/23 08/09/23 Magnesia Concentrate] Metoprolol Tartrate [Lopressor] 25 mg PO BID@0800,1700 07/04/23 08/09/23 Midodrine [ProAmatine] 5 mg PO BID@0800,1700 07/04/23 08/09/23 Na Phos,M-B/Na Phos,Di-Ba [Fleet 133 ml RECTAL DAILY PRN 07/04/23 08/09/23 Adult] bisacodyL [Dulcolax] 10 mg RECTAL DAILY PRN 07/04/23 08/09/23 Benzocaine/Menthol Lozeng [Cepacol 1 lozenge MUCOUS MEM Q4HR PRN 08/09/23 08/09/23 lozenge] Fluticasone Nasal [place] [Flonase 1 spray EA NOSTRIL BID@0800,1700 08/09/23 08/09/23 Nasal [place]] HYDROcodone/APAP 7.5-325MG [[place] 1 tab PO TID 08/09/23 08/09/23 7.5-325] Insulin Glargine [Lantus Vial] 0 unit SQ HS 08/09/23 08/09/23 Lactulose [Cephulac] 20 gm PO DAILY PRN 08/09/23 08/09/23 Loperamide [Imodium] 2 mg PO QID PRN 08/09/23 08/09/23 Magnesium Oxide [Mag-Ox] 400 mg PO DAILY@1200 08/09/23 08/09/23 Melatonin 3 mg PO HS 08/09/23 08/09/23 Ondansetron [Zofran] 4 mg PO Q8H PRN 08/09/23 08/09/23 Potassium Chloride [Klor-Con M20] 20 meq PO DAILY 08/09/23 08/09/23 Spironolactone 25 mg PO DAILY 08/09/23 08/09/23 polyethylene glycoL 3350 [Miralax] 17 gm PO DAILY PRN 08/09/23 08/09/23 Previous Rx's Medication Instructions Recorded Ipratropium-Albuterol Nebulize 3 ml INHALATION RT-Q6H PRN each 06/14/23 [Duoneb 0.5 mg-3 mg/3 ml Soln] ALPRAZolam [Xanax] 0.25 mg PO BID PRN 3 Days #6 tab 07/10/23 Acetaminophen Tab [Tylenol] 500 mg PO Q6HR PRN tab 07/10/23 Docusate [Colace] 100 mg PO DAILY@0800 PRN #0 07/10/23 Ferrous Sulfate [Feosol] 325 mg PO DAILY #0 07/10/23 Gabapentin [Neurontin] 400 mg PO BID #6 cap 07/10/23 INSULIN ASPART (NovoLOG) [NovoLOG 4 unit SQ AC-TID each 07/10/23 (formulary)] Saline Nasal Gel [[place] Nasal Gel] 1 applic NASAL Q4HR PRN each 07/10/23 Allergies Allergy/AdvReac Type Severity Reaction Status Date / Time vancomycin Allergy Rash/Hives/and Verified 08/09/23 13:02 vomiting diarrhea/Swelling Review of Systems ROS Statement: Those systems with pertinent positive or pertinent negative responses have been documented in the HPI. ROS Other: All systems not noted in ROS Statement are negative. Past Medical History Past Medical History: Coronary Artery Disease (CAD), Diabetes Mellitus, Deep Vein Thrombosis (DVT), Vascular Disorder Additional Past Medical History / Comment(s): SKIN CA. 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, NEUROPATHY LEGS & FEET, USING WALKER, .Mutiple DVT,mesentaric thrombosis x2 & PE, PAD, chronic pain syndrome, ddd lumbar region w/radiculopathy, HISTORY OF FALL 01/07/20 , tore rt rotator cuff, pancreatitis, fatty liver, Last Myocardial Infarction Date:: 2010 History of Any Multi-Drug Resistant Organisms: None Reported Past Surgical History: Section, Cholecystectomy, Heart Catheterization, Heart Catheterization With Stent, Orthopedic Surgery, Tonsillectomy, Tubal Ligation Additional Past Surgical History / Comment(s): 11 Stents in left leg, fistula left thigh, full mouth teeth extraction, TRAPEASE VENA CAVA FILTER, carpel tunnel, heart stents x4 rca and lad, tumor removal from uterus. Genital warts removed, INGRID. Skin cancer removed from neck, rt great toe amputated, colonoscopy, rt rotator, left shoulder replacement, cervial fusion, rt calf debridement, rt calf skin graft (May 2023) Past Anesthesia/Blood Transfusion Reactions: No Reported Reaction Date of Last Stent Placement:: Mar 2023 Past Psychological History: Anxiety, Depression Smoking Status: Current every day smoker Past Alcohol Use History: None Reported Past Drug Use History: None Reported - Past Family History Mother Family Medical History: Cancer, Congestive Heart Failure (CHF), Diabetes Mellitus, Myocardial Infarction ([place]) Additional Family Medical History / Comment(s): UTERINE CANCER Father Family Medical History: Coronary Artery Disease (CAD), Myocardial Infarction ([place]) Additional Family Medical History / Comment(s): Father at age 70. Sister(s) Family Medical History: Myocardial Infarction ([place]) Additional Family Medical History / Comment(s): Patient has one sister with myocardial infarction at age 55. Son(s) Family Medical History: Deep Vein Thrombosis (DVT), Pulmonary Embolus Additional Family Medical History / Comment(s): Patient has 2 sons and one has history of DVT and pulmonary embolism. General Exam Limitations: physical limitation General appearance: alert, in no apparent distress Head exam: Present: atraumatic, normocephalic, normal inspection Eye exam: Present: normal appearance, PERRL, EOMI. Absent: scleral icterus, conjunctival injection, periorbital swelling ENT exam: Present: normal exam, mucous membranes moist Neck exam: Present: normal inspection. Absent: tenderness, meningismus, lymphadenopathy Respiratory exam: Present: normal lung sounds bilaterally. Absent: respiratory distress, wheezes, rales, rhonchi, stridor Cardiovascular Exam: Present: regular rate, normal rhythm, normal heart sounds. Absent: systolic murmur, diastolic murmur, rubs, gallop, clicks GI/Abdominal exam: Present: soft, normal bowel sounds. Absent: distended, tenderness, guarding, rebound, rigid Extremities exam: Present: tenderness, normal capillary refill, other (right aka - medial aspect of surgical incision is open with purulent drainage). Absent: pedal edema, joint swelling, calf tenderness Back exam: Present: normal inspection Neurological exam: Present: alert, oriented X3, CN II-XII intact Psychiatric exam: Present: normal affect, normal mood Skin exam: Present: warm, dry, intact, normal color. Absent: rash Course Vital Signs 08/09/23 08/09/23 08/09/23 11:21 14:00 21:41 Temperature 98.3 F Pulse Rate 65 74 70 Pulse Rate [ Pulse Oximetery ] Respiratory 19 18 17 Rate Blood Pressure 100/61 107/68 109/62 Blood Pressure [Left Arm] O2 Sat by Pulse 96 94 L 98 Oximetry 08/09/23 08/10/23 08/10/23 22:00 00:05 03:12 Temperature Pulse Rate 71 76 80 Pulse Rate [ Pulse Oximetery ] Respiratory 18 18 14 Rate Blood Pressure 104/72 118/80 83/50 Blood Pressure [Left Arm] O2 Sat by Pulse 98 95 95 Oximetry 08/10/23 08/10/23 08/10/23 05:09 05:32 05:41 Temperature 97.7 F Pulse Rate 83 87 Pulse Rate [ 82 Pulse Oximetery ] Respiratory 16 16 Rate Blood Pressure 114/64 114/64 Blood Pressure 107/68 [Left Arm] O2 Sat by Pulse 95 97 97 Oximetry Medical Decision Making - Medical Decision Making Was pt. sent in by a medical professional or institution (, PA, CONSUMER INSIGHTS SPECIALIST, urgent care, hospital, or [place] [facility] facility...) When possible be specific @ -rehab facility Did you speak to anyone other than the patient for history (EMS, parent, family, police, friend...)? What history was obtained from this source @ -son, ems Did you review nursing and triage notes (agree or disagree)? Why? @ -I reviewed and agree with nursing and triage notes Were old charts reviewed (outside hosp., previous admission, EMS record, old E KG, old radiological studies, urgent care reports/EKG's, [place] health [facility] facility records)? Report findings @ - old charts were reviewed - last discharge summary where patient was hospitalized for same complaint Differential Diagnosis (chest pain, altered mental status, abdominal pain women, abdominal pain men, vaginal bleeding, weakness, fever, dyspnea, syncope, headach e, dizziness, GI bleed, back pain, seizure, CVA, palpatations, mental health, musculoskeletal)? @ -cellulitis, abscess, hematoma, bacteremia EKG interpreted by me (3pts min.). @ -not done X-rays interpreted by me (1pt min.). @ -yes, no obstruction CT interpreted by me (1pt min.). @ -None done U/S interpreted by me (1pt. min.). @ -None done What testing was considered but not performed or refused? (CT, X-rays, U/S, labs)? Why? @ -None What meds were considered but not given or refused? Why? @ -None Did you discuss the management of the patient with other professionals (professionals i.e. , PA, CONSUMER INSIGHTS SPECIALIST, lab, RT, psych nurse, social services director, canvas repairer, teacher, correction officer head, case packer and sealer)? Give summary @ -dr tejeda for admission Was smoking cessation discussed for >3mins.? @ -No Was critical care preformed (if so, how long)? @ -No Were there social determinants of health that impacted care today? How? (Homelessness, low income, unemployed, alcoholism, drug addiction, transportation, low edu. Level, literacy, decrease access to med. care, half-way, rehab)? @ -No Was there de-escalation of care discussed even if they declined (Discuss DNR or withdrawal of care, Hospice)? DNR status @ -No What co-morbidities impacted this encounter? (DM, HTN, Smoking, COPD, CAD, Cancer, CVA, ARF, Chemo, Hep., AIDS, mental health diagnosis, sleep apnea, morbid obesity)? @ -pad with right aka Was patient admitted / discharged? Hospital course, mention meds given and route, prescriptions, significant lab abnormalities, going to OR and other pertinent info. @ -Upon arrival patient was placed into room 1. Thorough history and physical exam was performed. I did review patient's transfer records. I obtained wound cultures from her right leg. Laboratory studies were conducted. Patient does provide a urine sample and a stool sample. Results are discussed with the patient. Spoke with Dr. Tejeda. Patient will be initiated on cefepime. Blood cultures are obtained. Infectious disease and vascular will be placed on consult. Patient agreeable to the plan and was admitted in stable condition Undiagnosed new problem with uncertain prognosis? @ -yes Drug Therapy requiring intensive monitoring for toxicity (Heparin, Nitro, Insulin, Cardizem)? @ -No Were any procedures done? @ -No Diagnosis/symptom? @ -acute right aka surgical site infection, acute diarrhea Acute, or Chronic, or Acute on Chronic? @ -acute on chronic Uncomplicated (without systemic symptoms) or Complicated (systemic symptoms)? @ -complicated Side effects of treatment? @ -No Exacerbation, Progression, or Severe Exacerbation? @ -No Poses a threat to life or bodily function? How? (Chest pain, [place], [place], pneumonia, PE, COPD, DKA, ARF, appy, cholecystitis, CVA, Diverticulitis, Homicidal, Suicidal, threat to staff... and all critical care pts) @ -No - Lab Data Result diagrams: 08/12/23 06:06 08/12/23 06:06 Lab Results 08/09/23 08/09/23 08/09/23 Range/Units 12:57 12:57 12:57 WBC 9.0 (3.8-10.6) k/uL RBC 4.49 (3.80-5.40) m/uL Hgb 12.2 (11.4-16.0) gm/dL Hct 39.7 (34.0-46.0) % MCV 88.5 (80.0-100.0) fL MCH 27.3 (25.0-35.0) pg MCHC 30.8 L (31.0-37.0) g/dL RDW 19.6 H (11.5-15.5) % Plt Count 369 (150-450) k/uL MPV 7.8 Neutrophils % (Manual) 76 % Lymphocytes % (Manual) 13 % Monocytes % (Manual) 7 % Eosinophils % (Manual) 2 % Basophils % (Manual) 2 % Neutrophils # (Manual) 6.84 (1.3-7.7) k/uL Lymphocytes # (Manual) 1.17 (1.0-4.8) k/uL Monocytes # (Manual) 0.63 (0-1.0) k/uL Eosinophils # (Manual) 0.18 (0-0.7) k/uL Basophils # (Manual) 0.18 (0-0.2) k/uL Nucleated RBCs 0 (0-0) /100 WBC Manual Slide Review Performed Hypochromasia Marked Anisocytosis Slight ESR 88 H (0-30) mm/Hr Sodium 137 (137-145) mmol/L Potassium 4.3 (3.5-5.1) mmol/L Chloride 99 (98-107) mmol/L Carbon Dioxide 31 H (22-30) mmol/L Anion Gap 7 mmol/L BUN 8 (7-17) mg/dL Creatinine 0.93 (0.52-1.04) mg/dL Est GFR (CKD-EPI)AfAm 77 (>60 ml/min/1.73 sqM) Est GFR (CKD-EPI)NonAf 67 (>60 ml/min/1.73 sqM) Glucose 78 (74-99) mg/dL Plasma Lactic Acid [place] (0.7-2.0) mmol/L Calcium 8.3 L (8.4-10.2) mg/dL Magnesium (1.6-2.3) mg/dL Total Bilirubin 0.7 (0.2-1.3) mg/dL AST 41 H (14-36) U/L ALT 20 (4-34) U/L Alkaline Phosphatase 185 H (38-126) U/L C-Reactive Protein 2.6 H (<1.0) mg/dL Total Protein 5.9 L (6.3-8.2) g/dL Albumin 2.3 L (3.5-5.0) g/dL Lipase 11 L (23-300) U/L Urine Color Colorless Urine Appearance Cloudy H (Clear) Urine pH 5.5 (5.0-8.0) Ur Specific [place] 1.010 (1.001-1.035) Urine Protein Trace H (Negative) Urine Glucose (UA) 3+ H (Negative) Urine Ketones Negative (Negative) Urine Blood Small H (Negative) Urine Nitrite Negative (Negative) Urine Bilirubin Negative (Negative) Urine Urobilinogen <2.0 (<2.0) mg/dL Ur Leukocyte Esterase Large H (Negative) Urine RBC 31 H (0-5) /hpf Urine WBC >182 H (0-5) /hpf Urine WBC Clumps Many H (None) /hpf Ur Squamous Epith Cells 1 (0-4) /hpf Urine Bacteria Occasional H (None) /hpf 08/09/23 08/09/23 Range/Units 12:57 12:57 WBC (3.8-10.6) k/uL RBC (3.80-5.40) m/uL Hgb (11.4-16.0) gm/dL Hct (34.0-46.0) % MCV (80.0-100.0) fL MCH (25.0-35.0) pg MCHC (31.0-37.0) g/dL RDW (11.5-15.5) % Plt Count (150-450) k/uL MPV Neutrophils % (Manual) % Lymphocytes % (Manual) % Monocytes % (Manual) % Eosinophils % (Manual) % Basophils % (Manual) % Neutrophils # (Manual) (1.3-7.7) k/uL Lymphocytes # (Manual) (1.0-4.8) k/uL Monocytes # (Manual) (0-1.0) k/uL Eosinophils # (Manual) (0-0.7) k/uL Basophils # (Manual) (0-0.2) k/uL Nucleated RBCs (0-0) /100 WBC Manual Slide Review Hypochromasia Anisocytosis ESR (0-30) mm/Hr Sodium (137-145) mmol/L Potassium (3.5-5.1) mmol/L Chloride (98-107) mmol/L Carbon Dioxide (22-30) mmol/L Anion Gap mmol/L BUN (7-17) mg/dL Creatinine (0.52-1.04) mg/dL Est GFR (CKD-EPI)AfAm (>60 ml/min/1.73 sqM) Est GFR (CKD-EPI)NonAf (>60 ml/min/1.73 sqM) Glucose (74-99) mg/dL Plasma Lactic Acid [place] 2.0 (0.7-2.0) mmol/L Calcium (8.4-10.2) mg/dL Magnesium 1.5 L (1.6-2.3) mg/dL Total Bilirubin (0.2-1.3) mg/dL AST (14-36) U/L ALT (4-34) U/L Alkaline Phosphatase (38-126) U/L C-Reactive Protein (<1.0) mg/dL Total Protein (6.3-8.2) g/dL Albumin (3.5-5.0) g/dL Lipase (23-300) U/L Urine Color Urine Appearance (Clear) Urine pH (5.0-8.0) Ur Specific [place] (1.001-1.035) Urine Protein (Negative) Urine Glucose (UA) (Negative) Urine Ketones (Negative) Urine Blood (Negative) Urine Nitrite (Negative) Urine Bilirubin (Negative) Urine Urobilinogen (<2.0) mg/dL Ur Leukocyte Esterase (Negative) Urine RBC (0-5) /hpf Urine WBC (0-5) /hpf Urine WBC Clumps (None) /hpf Ur Squamous Epith Cells (0-4) /hpf Urine Bacteria (None) /hpf Disposition Clinical Impression: Diarrhea, Leg wound, right, Cellulitis of right leg Disposition: ADMITTED IP TO THIS HOSP Condition: Stable Is patient prescribed a controlled substance at d/c from ED?: No Time of Disposition: 15:33 Decision to Admit Reason: Admit from EC Decision Date: 08/09/23 Decision Time: 15:33
[2023-08-09 13:36] LABS: ALT 20 U/L (4-34); AST 41 U/L (14-36); African American GFR (CKD) 77 (>60 ml/min/1.73 sqM); Albumin 2.3 g/dL (3.5-5.0); Alkaline Phosphatase 185 U/L (38-126); Anion Gap 7 mmol/L; Blood Urea Nitrogen 8 mg/dL (7-17); C Reactive Protein 2.6 mg/dL (<1.0); Calcium 8.3 mg/dL (8.4-10.2); Carbon Dioxide 31 mmol/L (22-30); Chloride 99 mmol/L (98-107); Glucose 78 mg/dL (74-99); Lipase 11 U/L (23-300); Non-African American GFR(CKD) 67 (>60 ml/min/1.73 sqM); Potassium 4.3 mmol/L (3.5-5.1); Sodium 137 mmol/L (137-145); Total Bilirubin 0.7 mg/dL (0.2-1.3); Total Protein 5.9 g/dL (6.3-8.2)
[2023-08-09 13:42] LABS: Anisocytosis Slight; HCT 39.7 % (34.0-46.0); HGB 12.2 gm/dL (11.4-16.0); Hypochromasia Marked; MCH 27.3 pg (25.0-35.0); MCHC 30.8 g/dL (31.0-37.0); MCV 88.5 fL (80.0-100.0); Mean Platelet Volume 7.8; Platelet Count 369 k/uL (150-450); RBC 4.49 m/uL (3.80-5.40); RDW 19.6 % (11.5-15.5)
--- NOTE | 2023-08-09 13:44 | XR ---
EXAMINATION TYPE: XR KUB DATE OF EXAM: 08/09/2023 COMPARISON: 08/27/2018 INDICATION: Pain TECHNIQUE: Single view abdomen supine FINDINGS: There is a normal bowel gas pattern. Psoas margins are normal. No organomegaly is present. Filter is present inferior vena cava. Aortoiliac stents are evident. IMPRESSION: 1. No acute abdomen process.
[2023-08-09 14:31] LABS: Basophils # (M) 0.18 k/uL (0-0.2); Eosinophils # (M) 0.18 k/uL (0-0.7); Lymphocytes # (M) 1.17 k/uL (1.0-4.8); Monocytes # (M) 0.63 k/uL (0-1.0); Neutrophils # (M) 6.84 k/uL (1.3-7.7); Neutrophils % (M) 76 %; Nucleated Red Blood Cells 0 /100 WBC (0-0); Total Cells Counted 100
[2023-08-09 15:28] LABS: Appearance,Urine Cloudy (Clear); Bacteria,Urine Occasional /hpf; Bilirubin,Urine Negative (Negative); Blood,Urine Small (Negative); Color,Urine Colorless; Glucose,Urine (UA) 3+ (Negative); Ketones,Urine Negative (Negative); Leukocyte Esterase,Urine Large (Negative); Nitrite,Urine Negative (Negative); PH, Urine 5.5 (5.0-8.0); Protein,Urine Trace (Negative); RBC,Urine 31 /hpf (0-5); Squamous Epithelial Cell,Urine 1 /hpf (0-4); Urobilinogen,Urine <2.0 mg/dL (<2.0); WBC,Urine >182 /hpf (0-5)
[2023-08-09] MEDS ORDERED: MORPHINE SULFATE 4 MG/ML SYRINGE IVP STA (15:31)
[2023-08-09] MEDS ORDERED: CEFEPIME 2 GM in SODIUM CHLORIDE 0.9% 100 ML IVPB STA (15:31)
[2023-08-09] MEDS ORDERED: LOPERAMIDE 2 MG CAP PO ONE (15:33)
[2023-08-09] MEDS ORDERED: NALOXONE 0.4 MG/ML 1 ML VIAL IV PRN (15:33)
[2023-08-09] MEDS ORDERED: ONDANSETRON 4 MG TAB PO PRN (15:39)
[2023-08-09] MEDS ORDERED: SALINE NASAL GEL 14.1 GM TUBE NASAL PRN (15:39)
[2023-08-09] MEDS ORDERED: IPRATROPIUM-ALBUTEROL 3 ML NEB INHALATION PRN (15:39)
[2023-08-09] MEDS ORDERED: ACETAMINOPHEN TAB 500 MG TAB PO PRN (15:39)
[2023-08-09 16:31] LABS: Glucose,Whole Blood 69 mg/dL (70-110)
[2023-08-09] MEDS: INSULIN ASPART (NovoLOG) 100 UNIT/ML VIAL SQ SCH (16:33)
[2023-08-09] MEDS: APIXABAN 5 MG TAB PO SCH (16:34)
[2023-08-09] MEDS: LOPERAMIDE 2 MG CAP PO PRN (16:34)
[2023-08-09] MEDS: MIDODRINE 5 MG TAB PO SCH (16:35)
[2023-08-09] MEDS: HYDROcodone/APAP 7.5-325MG 1 EACH TAB PO SCH ×2 (16:35→21:44)
[2023-08-09] MEDS: ATORVASTATIN 40 MG TAB PO SCH (16:35)
[2023-08-09] MEDS: METOPROLOL TARTRATE 25 MG TAB PO SCH (16:35)
[2023-08-09] MEDS: FLUTICASONE 50MCG/SPRAY NASAL 16GM EA NOSTRIL SCH (16:36)
[2023-08-09 18:23] LABS: Erythrocyte Sedimentation Rate 88 mm/Hr (0-30)
--- NOTE | 2023-08-09 19:10 | P.HPIM ---
History of Present Illness H&P Date: 08/09/23 Chief Complaint: Infected right stump wound HISTORY OF PRESENT ILLNESS This is a 63-year-old female patient of mine with history of CAD with multiple cardiac stents in mid RCA, mid LAD, obtuse marginal branch and followed by Dr. Bill closely, peripheral artery disease with previous stenting done as well has amputation of the right great toe secondary to osteomyelitis, CVA with no residual deficits, hypertension, COPD, diabetes mellitus type 2, previous multiple DVT and PE requiring chronic anticoagulation on eliquis, history of GI bleed secondary to antral gastritis, esophagitis, vitamin D deficiency, autonomic hypotension on midodrine, history of left humerus fracture. resume with patient April 02 through April 15 at which time she presented to the hospital due to right second and fifth toe ischemic change. A CT angiogram showed evidence of occlusion of the right superficial femoral artery and 2 occluded segments 1 in the mid thigh about 3 cm and another into the right popliteal artery at 13 cm length, occlusion of the right iliac artery into the common femoral artery. Patient was seen in consultation by vascular surgery. Arterial ultrasound showed lower extremity abnormal on the right with HERMINIA suggests severe atherosclerotic disease. Critical stenosis not excluded. Plan for open bypass surgery with vascular surgery was made but a cardiology consult was requested. Patient was seen by Dr. Bill and had chest pain complaint and Due to critical in-stent restenosis and subsequently underwent cardiac cathet erization which revealed critical in-stent restenosis of the RCA and Dr. Bill present performed stenting of the RCA. There was also intermediate disease in the first obtuse marginal branch of the left circumflex, intermediate disease involving the LAD and mildly elevated left sided filling pressures after that patient developed to have significant hematoma require blood for sedation and ICU management, and after that underwent incision and drainage of the hematoma, and she also underwent the bright bed of the Achilles wound after she has had a graft that did not last much patient was treated with IV antibiotic and eventually the decision was made to go for a right [id number] amputation as a definitive treatment for her peripheral vascular disease patient had that and she was sent to [facility] for physical therapy rehabilitation, while she was at [facility] she developed increased diarrhea with significant drop in her potassium and Magnesium and she was was last seen by vascular surgery before [place] 2 weeks ago and she had a small wound for which she did receive local care and to day I did receive a call from Nursing staff at [facility] that the patient is having severe diarrhea with increased purulent drainage from the right stump wound , so she was sent to the Er for evaluation and she was found to have infected wound was started on IV ABX with Cefepime and wound cultures and blood cultures were done , consulted ID and vascular surgery REVIEW OF SYSTEMS Constitutional: positive for fever, No chills, no night sweats. Reports weight loss. Reports weakness, Reports fatigue no lethargy. NO daytime sleepiness. HEENT: No headache. positive for dizziness. No nasal drainage or congestion. No epistaxis. No sore throat. Lungs: No shortness of breath, no cough, no sputum production. No wheezing. Cardiovascular: No chest pain, no lower extremity edema. No palpitations. No paroxysmal nocturnal dyspnea. No orthopnea. No lightheadedness or dizziness. No syncopal episodes. Abdominal: Reports abdominal pain. Reports nausea, no vomiting. positive for diarrhea. No constipation. No bloody or tarry stools. good appetite. Genitourinary: No dysuria, increased frequency, urgency. No urinary retention. Musculoskeletal: No myalgias. positive for muscle weakness, reports balance issues. Integumentary: Right AKA with minima erythema to the side with minimal drainage Neurologic: No aphasia. No facial droop. No change in mentation. No head injury. No headache. No paralysis. No paresthesia. Psychiatric: Reports depression. Reports anxiety. No mood swings. Endocrine: abnormal blood sugars. positive for weight change. No excessive sweating or thirst. No cold intolerance. MEDICAL HISTORY Coronary artery disease with multiple cardiac stents in the RCA, mid LAD, obtuse marginal branch Peripheral artery disease with previous stenting Right great toe osteomyelitis status post amputation CVA with no residual deficits Hypertension Hyperlipidemia COPD Diabetes mellitus type 2 Multiple DVT and PE on chronic anticoagulation History of GI bleed secondary to antral gastritis and esophagitis Vitamin D deficiency Orthostatic hypotension SURGICAL HISTORY Cholecystectomy Tonsillectomy Tubal ligation 11 stents in the left leg Full teeth extraction Trapeze vena cava filter Carpal tunnel release Coronary artery stents 4 to the RCA, LAD, obtuse marginal Tumor removed from the uterus will INGRID Skin cancer removal from the neck Right great toe amputation Colonoscopy and EGD I&D right groin abscess Anterior approach cervical disc fusion. SOCIAL HISTORY Patient is a smoker of about half a pack per day since 1993 and quit prior to her cervical surgery. No alcohol use, illicit drug use. Patient lives at home with her . FAMILY HISTORY Mother has history of uterine cancer, diabetes, myocardial infarction, heart failure. Father at age 70 from myocardial infarction. Patient has one sister and she had a myocardial infarction at age 55. Patient has 2 sons and one has history of DVT and pulmonary embolism. PHYSICAL EXAMINATION Gen: This is a 63-year-old female. She is resting on ER bed and does not appear to be in no acute distress. HEENT: Head is atraumatic, normocephalic. Pupils equal, round. Sclerae is anicteric. Mucous members of the mouth are somewhat dry. NECK: Supple. No JVD. No lymphadenopathy. No thyromegaly. LUNGS: Clear to auscultation. No wheezes or rhonchi. No intercostal retractions. 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 ABDOMEN: Soft, mild tenderness in the epigastric area and no rebound or guarding positive bowel sounds EXTREMITIES: Right above-knee amputation with small wound to the side minimal drainage NEUROLOGICAL: Patient is awake, alert and oriented x3. Cranial nerves 2 through 12 are grossly intact muscle power were 4 out of 5 in upper extremity is, and 3 out of 5 in the left lower extremity. She does have a right above-knee amputation. ASSESSMENT AND PLAN 1. Infected right stump wound . wound culture and blood cultures, we will start Cefepime , ID consult along with vascular consult 2. Status post right [id number] amputation was appears to be intact, Dr. Rutledge consult 3. Coronary artery disease with recent stent of the RCA due to recent in-stent restenosis. Patient has had previous multiple cardiac stents to the RCA and mid LAD, obtuse marginal branch. Continue patient on Plavix 75 mg daily, Lopressor 25 mg twice daily, Atorvastatin 40 mg po daily . 4. Diabetes mellitus type 2 uncontrolled with hypoglycemia. we will continue with Humalog 4 units AC meals tid , we will hold off Farxiga for now 5. Hyperlipidemia. Continue Atorvastatin 40 mg po daily 6. Chronic DVT and PEs. Continue patient on eliquis 5 mg twice daily. 7. Orthostatic hypotension continue patient on Midodrin 5 mg po tid 8. Hypertension and hypertensive cardiovascular disease. Continue metoprolol 25 mg orally twice every day. 9. Gastroesophageal reflux disease and GI prophylaxis. Continue Pantoprazole 40 mg daily. 10. Diabetic neuropathy. we will continue wit Gabapentin 400 mg po tid. 11. Generalized anxiety disorder, recurrent depression. Continue Cymbalta 60 mg po bid 13. DVT prophylaxis. Continue Eliquis 5 mg po bid 14. GI prophylaxis. Continue patient on PPI. 15. Admit to inpatient. Estimate length of stay 2 midnights. 16. Full code. Past Medical History Past Medical History: Coronary Artery Disease (CAD), Diabetes Mellitus, Deep Vein Thrombosis (DVT), Vascular Disorder Additional Past Medical History / Comment(s): SKIN CA. 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, NEUROPATHY LEGS & FEET, USING WALKER, .Mutiple DVT,mesentaric thrombosis x2 & PE, PAD, chronic pain syndrome, ddd lumbar region w/radicu lopathy, HISTORY OF FALL 01/07/20 , tore rt rotator cuff, pancreatitis, fatty liver, Last Myocardial Infarction Date:: 2010 History of Any Multi-Drug Resistant Organisms: None Reported Past Surgical History: Section, Cholecystectomy, Heart Catheterization, Heart Catheterization With Stent, Orthopedic Surgery, Tonsillectomy, Tubal Ligation Additional Past Surgical History / Comment(s): 11 Stents in left leg, fistula left thigh, full mouth teeth extraction, TRAPEASE VENA CAVA FILTER, carpel tunnel, heart stents x4 rca and lad, tumor removal from uterus. Genital warts removed, INGRID. Skin cancer removed from neck, rt great toe amputated, colonoscopy, rt rotator, left shoulder replacement, cervial fusion, rt calf debridement, rt calf skin graft (May 2023) Past Anesthesia/Blood Transfusion Reactions: No Reported Reaction Date of Last Stent Placement:: Mar 2023 Past Psychological History: Anxiety, Depression Smoking Status: Current every day smoker Past Alcohol Use History: None Reported Past Drug Use History: None Reported - Past Family History Mother Family Medical History: Cancer, Congestive Heart Failure (CHF), Diabetes Mellitus, Myocardial Infarction ([place]) Additional Family Medical History / Comment(s): UTERINE CANCER Father Family Medical History: Coronary Artery Disease (CAD), Myocardial Infarction ([place]) Additional Family Medical History / Comment(s): Father at age 70. Sister(s) Family Medical History: Myocardial Infarction ([place]) Additional Family Medical History / Comment(s): Patient has one sister with myocardial infarction at age 55. Son(s) Family Medical History: Deep Vein Thrombosis (DVT), Pulmonary Embolus Additional Family Medical History / Comment(s): Patient has 2 sons and one has history of DVT and pulmonary embolism. Medications and Allergies Home Medications Medication Instructions Recorded Confirmed Type Rosuvastatin [Crestor] 20 mg PO DAILY@1700 01/08/23 08/09/23 History Ergocalciferol (Vitamin D2) 1,250 mcg PO GUERRERO 04/01/23 08/09/23 History [Drisdol (50,000 Iu)] Nitroglycerin Sl Tabs [Nitrostat] 0.4 mg SL Q5M PRN 04/01/23 08/09/23 History Omeprazole [PriLOSEC] 20 mg PO DAILY 04/01/23 08/09/23 History Apixaban [Eliquis] 5 mg PO BID@0800,1700 05/20/23 08/09/23 History Clopidogrel [Plavix] 75 mg PO DAILY@1100 05/20/23 08/09/23 History Ipratropium-Albuterol Nebulize 3 ml INHALATION RT-Q6H PRN each 06/14/23 08/09/23 Rx [Duoneb 0.5 mg-3 mg/3 ml Soln] DULoxetine HCL [Cymbalta] 60 mg PO BID 07/04/23 08/09/23 History Dapagliflozin Propanediol [Farxiga] 10 mg PO DAILY 07/04/23 08/09/23 History INSULIN ASPART (NovoLOG) [NovoLOG See Protocol SQ 07/04/23 08/09/23 History (formulary)] ACHS@07,11,1630,2130 Magnesium Hydroxide [Milk of 7,200 mg PO DAILY PRN 07/04/23 08/09/23 History Magnesia Concentrate] Metoprolol Tartrate [Lopressor] 25 mg PO BID@0800,1700 07/04/23 08/09/23 History Midodrine [ProAmatine] 5 mg PO BID@0800,1700 07/04/23 08/09/23 History Na Phos,M-B/Na Phos,Di-Ba [Fleet 133 ml RECTAL DAILY PRN 07/04/23 08/09/23 History Adult] bisacodyL [Dulcolax] 10 mg RECTAL DAILY PRN 07/04/23 08/09/23 History ALPRAZolam [Xanax] 0.25 mg PO BID PRN 3 Days #6 tab 07/10/23 08/09/23 Rx Acetaminophen Tab [Tylenol] 500 mg PO Q6HR PRN tab 07/10/23 08/09/23 Rx Docusate [Colace] 100 mg PO DAILY@0800 PRN #0 07/10/23 08/09/23 Rx Ferrous Sulfate [Feosol] 325 mg PO DAILY #0 07/10/23 08/09/23 Rx Gabapentin [Neurontin] 400 mg PO BID #6 cap 07/10/23 08/09/23 Rx INSULIN ASPART (NovoLOG) [NovoLOG 4 unit SQ AC-TID each 07/10/23 08/09/23 Rx (formulary)] Saline Nasal Gel [[place] Nasal Gel] 1 applic NASAL Q4HR PRN each 07/10/23 08/09/23 Rx Benzocaine/Menthol Lozeng [Cepacol 1 lozenge MUCOUS MEM Q4HR PRN 08/09/23 08/09/23 History lozenge] Fluticasone Nasal [place] [Flonase 1 spray EA NOSTRIL BID@0800,1700 08/09/2312/26 History Nasal [place]] HYDROcodone/APAP 7.5-325MG [[place] 1 tab PO TID 08/09/23 08/09/23 History 7.5-325] Insulin Glargine [Lantus Vial] 0 unit SQ HS 08/09/23 08/09/23 History Lactulose [Cephulac] 20 gm PO DAILY PRN 08/09/23 08/09/23 History Loperamide [Imodium] 2 mg PO QID PRN 08/09/23 08/09/23 History Magnesium Oxide [Mag-Ox] 400 mg PO DAILY@1200 08/09/23 08/09/23 History Melatonin 3 mg PO HS 08/09/23 08/09/23 History Ondansetron [Zofran] 4 mg PO Q8H PRN 08/09/23 08/09/23 History Potassium Chloride [Klor-Con M20] 20 meq PO DAILY 08/09/23 08/09/23 History Spironolactone 25 mg PO DAILY 08/09/23 08/09/23 History polyethylene glycoL 3350 [Miralax] 17 gm PO DAILY PRN 08/09/23 08/09/23 History Allergies Allergy/AdvReac Type Severity Reaction Status Date / Time vancomycin Allergy Rash/Hives/and Verified 08/09/23 13:02 vomiting diarrhea/Swelling Physical Exam Vitals: Vital Signs Temp Pulse Resp BP Pulse Ox 08/09/23 14:00 74 18 107/68 94 L 08/09/23 11:21 98.3 F 65 19 100/61 96 Intake and Output 08/09/23 08/09/23 08/09/23 06:59 14:59 22:59 Other: Weight 81.647 kg Results CBC & Chem 7: 08/09/23 12:57 08/09/23 12:57 Labs: Abnormal Lab Results - Last 24 Hours (Table) 08/09/23 08/09/23 08/09/23 Range/Units 12:57 12:57 12:57 MCHC 30.8 L (31.0-37.0) g/dL RDW 19.6 H (11.5-15.5) % ESR 88 H (0-30) mm/Hr Carbon Dioxide 31 H (22-30) mmol/L POC Glucose (mg/dL) (70-110) mg/dL Calcium 8.3 L (8.4-10.2) mg/dL Magnesium (1.6-2.3) mg/dL AST 41 H (14-36) U/L Alkaline Phosphatase 185 H (38-126) U/L C-Reactive Protein 2.6 H (<1.0) mg/dL Total Protein 5.9 L (6.3-8.2) g/dL Albumin 2.3 L (3.5-5.0) g/dL Lipase 11 L (23-300) U/L Urine Appearance Cloudy H (Clear) Urine Protein Trace H (Negative) Urine Glucose (UA) 3+ H (Negative) Urine Blood Small H (Negative) Ur Leukocyte Esterase Large H (Negative) Urine RBC 31 H (0-5) /hpf Urine WBC >182 H (0-5) /hpf Urine WBC Clumps Many H (None) /hpf Urine Bacteria Occasional H (None) /hpf 08/09/23 08/09/23 Range/Units 12:57 16:29 MCHC (31.0-37.0) g/dL RDW (11.5-15.5) % ESR (0-30) mm/Hr Carbon Dioxide (22-30) mmol/L POC Glucose (mg/dL) 69 L (70-110) mg/dL Calcium (8.4-10.2) mg/dL Magnesium 1.5 L (1.6-2.3) mg/dL AST (14-36) U/L Alkaline Phosphatase (38-126) U/L C-Reactive Protein (<1.0) mg/dL Total Protein (6.3-8.2) g/dL Albumin (3.5-5.0) g/dL Lipase (23-300) U/L Urine Appearance (Clear) Urine Protein (Negative) Urine Glucose (UA) (Negative) Urine Blood (Negative) Ur Leukocyte Esterase (Negative) Urine RBC (0-5) /hpf Urine WBC (0-5) /hpf Urine WBC Clumps (None) /hpf Urine Bacteria (None) /hpf
[2023-08-09] MEDS: DULoxetine HCL 60 MG CAPSULE.DR PO SCH (21:44)
[2023-08-09] MEDS: GABAPENTIN 400 MG CAP PO SCH (21:44)
--- NOTE | 2023-08-09 22:36 | P.CONS ---
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 with multiple surgeries patient also have a chronic nonhealing wound to the right groin patient currently at [facility] undergoing rehabilitation therapy patient has developed significant diarrhea with multiple loose stools and weakness and the patient also noted to have some purulent drainage from the right AKA stump for the patient was sent to the ER patient denies high-grade fever or any chills has been complaining of weakness no URI symptoms no chest pain shortness of breath or cough she did have some abdominal pain and nausea but no vomiting and complaining of significant diarrhea with multiple bowel movements denies any blood or mucus to the stool patient did have a pain to the right AKA stump specifically to the area with EP did have a open wound which is currently still draining describing the pain to be mostly mild to moderate without any radiation patient on presentation to the hospital was afebrile did have white count of 9.0 creatinine 0.93 CRP was 2.6 urine has been positive local culture has been obtained patient was started on cefepime pending cultures stool for C. difficile has been sent reports are currently pending Past Medical History Past Medical History: Coronary Artery Disease (CAD), Diabetes Mellitus, Deep Vein Thrombosis (DVT), Vascular Disorder Additional Past Medical History / Comment(s): SKIN CA. 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, NEUROPATHY LEGS & FEET, USING WALKER, .Mutiple DVT,mesentaric thrombosis x2 & PE, PAD, chronic pain syndrome, ddd lumbar region w/radiculopathy, HISTORY OF FALL 01/07/20 , tore rt rotator cuff, pancreatitis, fatty liver, Last Myocardial Infarction Date:: 2010 History of Any Multi-Drug Resistant Organisms: None Reported Past Surgical History: Section, Cholecystectomy, Heart Catheterization, Heart Catheterization With Stent, Orthopedic Surgery, Tonsillectomy, Tubal Ligation Additional Past Surgical History / Comment(s): 11 Stents in left leg, fistula left thigh, full mouth teeth extraction, TRAPEASE VENA CAVA FILTER, carpel tunnel, heart stents x4 rca and lad, tumor removal from uterus. Genital warts removed, INGRID. Skin cancer removed from neck, rt great toe amputated, colonoscopy , rt rotator, left shoulder replacement, cervial fusion, rt calf debridement, rt calf skin graft (May 2023) Past Anesthesia/Blood Transfusion Reactions: No Reported Reaction Date of Last Stent Placement:: Mar 2023 Past Psychological History: Anxiety, Depression Smoking Status: Current every day smoker Past Alcohol Use History: None Reported Past Drug Use History: None Reported - Past Family History Mother Family Medical History: Cancer, Congestive Heart Failure (CHF), Diabetes Mellitus, Myocardial Infarction ([place]) Additional Family Medical History / Comment(s): UTERINE CANCER Father Family Medical History: Coronary Artery Disease (CAD), Myocardial Infarction ([place]) Additional Family Medical History / Comment(s): Father at age 70. Sister(s) Family Medical History: Myocardial Infarction ([place]) Additional Family Medical History / Comment(s): Patient has one sister with myocardial infarction at age 55. Son(s) Family Medical History: Deep Vein Thrombosis (DVT), Pulmonary Embolus Additional Family Medical History / Comment(s): Patient has 2 sons and one has history of DVT and pulmonary embolism. Medications and Allergies Home Medications Medication Instructions Recorded Confirmed Type Rosuvastatin [Crestor] 20 mg PO DAILY@1700 01/08/23 08/09/23 History Ergocalciferol (Vitamin D2) 1,250 mcg PO GUERRERO 04/01/23 08/09/23 History [Drisdol (50,000 Iu)] Nitroglycerin Sl Tabs [Nitrostat] 0.4 mg SL Q5M PRN 04/01/23 08/09/23 History Omeprazole [PriLOSEC] 20 mg PO DAILY 04/01/23 08/09/23 History Apixaban [Eliquis] 5 mg PO BID@0800,1700 05/20/23 08/09/23 History Clopidogrel [Plavix] 75 mg PO DAILY@1100 05/20/23 08/09/23 History Ipratropium-Albuterol Nebulize 3 ml INHALATION RT-Q6H PRN each 06/14/23 08/09/23 Rx [Duoneb 0.5 mg-3 mg/3 ml Soln] DULoxetine HCL [Cymbalta] 60 mg PO BID 07/04/23 08/09/23 History Dapagliflozin Propanediol [Farxiga] 10 mg PO DAILY 07/04/23 08/09/23 History INSULIN ASPART (NovoLOG) [NovoLOG See Protocol SQ 07/04/23 08/09/23 History (formulary)] ACHS@07,11,1630,2130 Magnesium Hydroxide [Milk of 7,200 mg PO DAILY PRN 07/04/23 08/09/23 History Magnesia Concentrate] Metoprolol Tartrate [Lopressor] 25 mg PO BID@0800,1700 07/04/23 08/09/23 History Midodrine [ProAmatine] 5 mg PO BID@0800,1700 07/04/23 08/09/23 History Na Phos,M-B/Na Phos,Di-Ba [Fleet 133 ml RECTAL DAILY PRN 07/04/23 08/09/23 History Adult] bisacodyL [Dulcolax] 10 mg RECTAL DAILY PRN 07/04/23 08/09/23 History ALPRAZolam [Xanax] 0.25 mg PO BID PRN 3 Days #6 tab 07/10/23 08/09/23 Rx Acetaminophen Tab [Tylenol] 500 mg PO Q6HR PRN tab 07/10/23 08/09/23 Rx Docusate [Colace] 100 mg PO DAILY@0800 PRN #0 07/10/23 08/09/23 Rx Ferrous Sulfate [Feosol] 325 mg PO DAILY #0 07/10/23 08/09/23 Rx Gabapentin [Neurontin] 400 mg PO BID #6 cap 07/10/23 08/09/23 Rx INSULIN ASPART (NovoLOG) [NovoLOG 4 unit SQ AC-TID each 07/10/23 08/09/23 Rx (formulary)] Saline Nasal Gel [[place] Nasal Gel] 1 applic NASAL Q4HR PRN each 07/10/23 08/09/23 Rx Benzocaine/Menthol Lozeng [Cepacol 1 lozenge MUCOUS MEM Q4HR PRN 08/09/23 08/09/23 History lozenge] Fluticasone Nasal [place] [Flonase 1 spray EA NOSTRIL BID@0800,1700 08/09/23 08/09/23 History Nasal [place]] HYDROcodone/APAP 7.5-325MG [[place] 1 tab PO TID 08/09/23 08/09/23 History 7.5-325] Insulin Glargine [Lantus Vial] 0 unit SQ HS 08/09/23 08/09/23 History Lactulose [Cephulac] 20 gm PO DAILY PRN 08/09/23 08/09/23 History Loperamide [Imodium] 2 mg PO QID PRN 08/09/23 08/09/23 History Magnesium Oxide [Mag-Ox] 400 mg PO DAILY@1200 08/09/23 08/09/23 History Melatonin 3 mg PO HS 08/09/23 08/09/23 History Ondansetron [Zofran] 4 mg PO Q8H PRN 08/09/23 08/09/23 History Potassium Chloride [Klor-Con M20] 20 meq PO DAILY 08/09/23 08/09/23 History Spironolactone 25 mg PO DAILY 08/09/23 08/09/23 History polyethylene glycoL 3350 [Miralax] 17 gm PO DAILY PRN 08/09/23 08/09/23 History Allergies Allergy/AdvReac Type Severity Reaction Status Date / Time vancomycin Allergy Rash/Hives/and Verified 08/09/23 13:02 vomiting diarrhea/Swelling Physical Exam Vitals: Vital Signs Temp Pulse Resp BP Pulse Ox 08/09/23 14:00 74 18 107/68 94 L 08/09/23 11:21 98.3 F 65 19 100/61 96 Intake and Output 08/09/23 08/09/23 08/09/23 06:59 14:59 22:59 Other: Weight 81.647 kg Results CBC & Chem 7: 08/12/23 06:06 08/12/23 06:06 Labs: Abnormal Lab Results - Last 24 Hours (Table) 08/09/23 08/09/23 08/09/23 Range/Units 12:57 12:57 12:57 MCHC 30.8 L (31.0-37.0) g/dL RDW 19.6 H (11.5-15.5) % Carbon Dioxide 31 H (22-30) mmol/L POC Glucose (mg/dL) (70-110) mg/dL Calcium 8.3 L (8.4-10.2) mg/dL Magnesium (1.6-2.3) mg/dL AST 41 H (14-36) U/L Alkaline Phosphatase 185 H (38-126) U/L C-Reactive Protein 2.6 H (<1.0) mg/dL Total Protein 5.9 L (6.3-8.2) g/dL Albumin 2.3 L (3.5-5.0) g/dL Lipase 11 L (23-300) U/L Urine Appearance Cloudy H (Clear) Urine Protein Trace H (Negative) Urine Glucose (UA) 3+ H (Negative) Urine Blood Small H (Negative) Ur Leukocyte Esterase Large H (Negative) Urine RBC 31 H (0-5) /hpf Urine WBC >182 H (0-5) /hpf Urine WBC Clumps Many H (None) /hpf Urine Bacteria Occasional H (None) /hpf 08/09/23 08/09/23 Range/Units 12:57 16:29 MCHC (31.0-37.0) g/dL RDW (11.5-15.5) % Carbon Dioxide (22-30) mmol/L POC Glucose (mg/dL) 69 L (70-110) mg/dL Calcium (8.4-10.2) mg/dL Magnesium 1.5 L (1.6-2.3) mg/dL AST (14-36) U/L Alkaline Phosphatase (38-126) U/L C-Reactive Protein (<1.0) mg/dL Total Protein (6.3-8.2) g/dL Albumin (3.5-5.0) g/dL Lipase (23-300) U/L Urine Appearance (Clear) Urine Protein (Negative) Urine Glucose (UA) (Negative) Urine Blood (Negative) Ur Leukocyte Esterase (Negative) Urine RBC (0-5) /hpf Urine WBC (0-5) /hpf Urine WBC Clumps (None) /hpf Urine Bacteria (None) /hpf Assessment and Plan Plan: 1patient presented to hospital with significant diarrhea and this patient has been out of the hospital and has been exposed to multiple antibiotics with concern for possible infectious diarrhea such as C. difficile colitis 2-patient also noticed to have a drainage from the right AKA stump concerning for stump infection and cellulitis in this patient has predominantly grown Pseudomonas and gram-negative from her wound in the past 3-Vancomycin allergy 4-deep wound culture has been obtained to guide further antibiotic therapy and we will wait for stool for C. difficile to be finalized 5-we will add Questran for symptomatic relief 6-continue with cefepime while waiting for the culture to finalize We will follow on clinical condition and cultures to further adjust medication if needed Thank you for this consultation we will follow the patient along with you Dictation was produced using [employer] dictation software. please excuse any grammatical, word or spelling errors. Time with Patient: Greater than 30
[2023-08-10] MEDS: CEFEPIME 2 GM in SODIUM CHLORIDE 0.9% 100 ML IVPB SCH ×3 (00:47→15:58)
[2023-08-10 05:07] LABS: Glucose,Whole Blood 123 mg/dL (70-110)
[2023-08-10 06:16] LABS: Glucose,Whole Blood 117 mg/dL (70-110)
[2023-08-10] MEDS ORDERED: DOCUSATE 100 MG CAP PO PRN (08:00)
[2023-08-10] MEDS: DULoxetine HCL 60 MG CAPSULE.DR PO SCH ×2 (08:27→20:00)
[2023-08-10] MEDS: APIXABAN 5 MG TAB PO SCH ×2 (08:27→17:25)
[2023-08-10] MEDS: POTASSIUM CHLORIDE ER 20 MEQ TAB.ER PO SCH (08:27)
[2023-08-10] MEDS: PANTOPRAZOLE 40 MG TABLET PO SCH (08:27)
[2023-08-10] MEDS: SPIRONOLACTONE 25 MG TAB PO SCH (08:27)
[2023-08-10] MEDS: FERROUS SULFATE 325 MG TAB PO SCH (08:27)
[2023-08-10] MEDS: METOPROLOL TARTRATE 25 MG TAB PO SCH ×2 (08:27→17:25)
[2023-08-10] MEDS: FLUTICASONE 50MCG/SPRAY NASAL 16GM EA NOSTRIL SCH ×2 (08:28→17:27)
[2023-08-10] MEDS: INSULIN ASPART (NovoLOG) 100 UNIT/ML VIAL SQ SCH ×3 (08:32→18:13)
[2023-08-10] MEDS: HYDROcodone/APAP 7.5-325MG 1 EACH TAB PO SCH ×3 (08:39→20:00)
[2023-08-10] MEDS: CHOLESTYRAMINE (WITH SUGAR) 4 GM PACKET PO SCH ×2 (08:40→18:13)
[2023-08-10] MEDS: GABAPENTIN 400 MG CAP PO SCH ×2 (08:40→20:00)
[2023-08-10] MEDS ORDERED: DAPAGLIFLOZIN PROPANEDIOL 10 MG TABLET PO SCH (09:00)
[2023-08-10 09:21] LABS: Basophils # (A) 0.08 X 10*3/uL (0.00-0.10); Eosinophils # (A) 0.25 X 10*3/uL (0.04-0.35); HCT 35.5 % (37.2-46.3); HGB 10.4 g/dL (12.0-15.0); Lymphocytes # (A) 1.81 X 10*3/uL (0.90-5.00); MCH 26.9 pg (27.0-32.0); MCHC 29.3 g/dL (32.0-37.0); MCV 91.7 FL (80.0-97.0); Mean Platelet Volume 10.9 FL (9.5-12.2); Monocytes # (A) 0.53 X 10*3/uL (0.20-1.00); Monocytes % (A) 6.4 %; NRBC Per 100 WBC 0 X 10*3/uL (0.00-0.01); Neutrophils # (A) 5.53 X 10*3/uL (1.80-7.70); Neutrophils % (A) 67.4 %; Platelet Count 288 X 10*3/uL (140-440); RBC 3.87 X 10*6/uL (4.10-5.20); RDW 21.3 % (11.5-14.5); WBC 8.22 X 10*3/uL (4.50-10.00)
[2023-08-10 09:36] LABS: Blood Urea Nitrogen 7.2 mg/dL (9.0-27.0); Calcium 8.1 mg/dL (8.7-10.3); Carbon Dioxide 27.8 mmol/L (21.6-31.8); Chloride 104 mmol/L (96-109); Glucose 128 mg/dL (70-110); Potassium 4.1 mmol/L (3.5-5.5); Sodium 139 mmol/L (135-145)
[2023-08-10] MEDS: CLOPIDOGREL 75 MG TAB PO SCH (11:14)
[2023-08-10] MEDS: MAGNESIUM OXIDE 400 MG TAB PO SCH (11:14)
[2023-08-10] MEDS: MIDODRINE 5 MG TAB PO SCH ×2 (11:14→17:25)
[2023-08-10 12:03] LABS: Glucose,Whole Blood 313 mg/dL (70-110)
[2023-08-10] MEDS: MAGNESIUM SULFATE-D5W PMX 1 GM in DEXTROSE/WATER 1 100ML.BAG IVPB SCH ×2 (13:09→19:59)
[2023-08-10] MEDS: ALPRAZolam 0.25 MG TAB PO PRN ×2 (13:24→17:32)
--- NOTE | 2023-08-10 14:48 | P.PN ---
Subjective Progress Note Date: 08/10/23 HISTORY OF PRESENT ILLNESS This is a 63-year-old female patient of mine with history of CAD with multiple cardiac stents in mid RCA, mid LAD, obtuse marginal branch and followed by Dr. Bill closely, peripheral artery disease with previous stenting done as well has amputation of the right great toe secondary to osteomyelitis, CVA with no residual deficits, hypertension, COPD, diabetes mellitus type 2, previous multiple DVT and PE requiring chronic anticoagulation on eliquis, history of GI bleed secondary to antral gastritis, esophagitis, vitamin D deficiency, autono margot hypotension on midodrine, history of left humerus fracture. resume with patient April 02 through April 15 at which time she presented to the hospital due to right second and fifth toe ischemic change. A CT angiogram showed evidence of occlusion of the right superficial femoral artery and 2 occluded segments 1 in the mid thigh about 3 cm and another into the right popliteal artery at 13 cm length, occlusion of the right iliac artery into the common femoral artery. Patient was seen in consultation by vascular surgery. Arterial ultrasound showed lower extremity abnormal on the right with HERMINIA suggests severe atherosclerotic disease. Critical stenosis not excluded. Plan for open bypass surgery with vascular surgery was made but a cardiology consult was requested. Patient was seen by Dr. Bill and had chest pain complaint and Due to critical in-stent restenosis and subsequently underwent cardiac catheterization which revealed critical in-stent restenosis of the RCA and Dr. Bill present performed stenting of the RCA. There was also intermediate disease in the first obtuse marginal branch of the left circumflex, intermediate disease involving the LAD and mildly elevated left sided filling pressures after that patient developed to have significant hematoma require blood for sedation and ICU management, and after that underwent incision and drainage of the hematoma, and she also underwent the bright bed of the Achilles wound after she has had a graft that did not last much patient was treated with IV antibiotic and eventually the decision was made to go for a right [id number] amputation as a definitive treatment for her peripheral vascular disease patient had that and she was sent to [facility] for physical therapy rehabilitation, while she was at [facility] she developed increased diarrhea with significant drop in her potassium and Magnesium and she was was last seen by vascular surgery before [place] 2 weeks ago and she had a small wound for which she did receive local care and today I did receive a call from Nursing staff at [facility] that the patient is having severe diarrhea with increased purulent drainage from the right stump wound , so she was sent to the Er for evaluation and she was found to have infected wound was started on IV ABX with Cefepime and wound cultures and blood cultures were done , consulted ID and vascular surgery 08/10: Patient sitting up in bed in no apparent distress, she denies any chest pain, shortness breath, she did not have any diarrhea since 2:00 in the morning, she is eating her food, her magnesium level is 1.5, she will receive 2 g of magnesium sulfate IV piggyback 1 continue oral magnesium at this time, resume the patient's RCA 10 mg once every day, start the patient on Levemir 15 units at bedtime, along with a sliding scale insulin. Her sugar has been high. REVIEW OF SYSTEMS Constitutional: positive for fever, No chills, no night sweats. Reports weight loss. Reports weakness, Reports fatigue no lethargy. NO daytime sleepiness. HEENT: No headache. positive for dizziness. No nasal drainage or congestion. No epistaxis. No sore throat. Lungs: No shortness of breath, no cough, no sputum production. No wheezing. Cardiovascular: No chest pain, no lower extremity edema. No palpitations. No paroxysmal nocturnal dyspnea. No orthopnea. No lightheadedness or dizziness. No syncopal episodes. Abdominal: Reports abdominal pain. Reports nausea, no vomiting. positive for diarrhea. No constipation. No bloody or tarry stools. good appetite. Genitourinary: No dysuria, increased frequency, urgency. No urinary retention. Musculoskeletal: No myalgias. positive for muscle weakness, reports balance issues. Integumentary: Right AKA with minima erythema to the side with minimal drainage Neurologic: No aphasia. No facial droop. No change in mentation. No head injury. No headache. No paralysis. No paresthesia. Psychiatric: Reports depression. Reports anxiety. No mood swings. Endocrine: abnormal blood sugars. positive for weight change. No excessive s weating or thirst. No cold intolerance. PHYSICAL EXAMINATION Gen: This is a 63-year-old female. She is resting on ER bed and does not appear to be in no acute distress. HEENT: Head is atraumatic, normocephalic. Pupils equal, round. Sclerae is anicteric. Mucous members of the mouth are somewhat dry. NECK: Supple. No JVD. No lymphadenopathy. No thyromegaly. LUNGS: Clear to auscultation. No wheezes or rhonchi. No intercostal retractions. 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 ABDOMEN: Soft, mild tenderness in the epigastric area and no rebound or guarding positive bowel sounds EXTREMITIES: Right above-knee amputation with small wound to the side minimal drainage NEUROLOGICAL: Patient is awake, alert and oriented x3. Cranial nerves 2 through 12 are grossly intact muscle power were 4 out of 5 in upper extremity is, and 3 out of 5 in the left lower extremity. She does have a right above-knee amputation. ASSESSMENT AND PLAN 1. Infected right stump wound . wound culture and blood cultures, we will start Cefepime , ID consult along with vascular consult 2. Status post right [id number] amputation was appears to be intact, Dr. Rutledge consult 3. Coronary artery disease with recent stent of the RCA due to recent in-stent restenosis. Patient has had previous multiple cardiac stents to the RCA and mid LAD, obtuse marginal branch. Continue patient on Plavix 75 mg daily, Lopressor 25 mg twice daily, Atorvastatin 40 mg po daily . 4. Diabetes mellitus type 2 uncontrolled with hypoglycemia. we will continue with Humalog 4 units AC meals tid , we will add Levemir 8 units sc qhs and Farxiga 10 mg po daily 5. Hyperlipidemia. Continue Atorvastatin 40 mg po daily 6. Chronic DVT and PEs. Continue patient on eliquis 5 mg twice daily. 7. Orthostatic hypotension continue patient on Midodrin 5 mg po tid 8. Hypertension and hypertensive cardiovascular disease. Continue metoprolol 25 mg orally twice every day. 9. Gastroesophageal reflux disease and GI prophylaxis. Continue Pantoprazole 40 mg daily. 10. Diabetic neuropathy. we will continue wit Gabapentin 400 mg po tid. 11. Generalized anxiety disorder, recurrent depression. Continue Cymbalta 60 mg po bid 13. DVT prophylaxis. Continue Eliquis 5 mg po bid 14. GI prophylaxis. Continue patient on PPI. 15. physical therapy evaluation. 16. welfare worker consultation for discharge planning. Objective - Vital Signs Vital signs: Vital Signs Temp 97.4 F L 08/10/23 07:29 Pulse 89 08/10/23 07:29 Resp 21 08/10/23 07:29 BP 107/68 01/06/24 07:29 Pulse Ox 97 08/10/23 07:29 FiO2 Intake & Output 08/09/23 08/10/23 08/10/23 18:59 06:59 18:59 Intake Total 500 Balance 500 Weight 81.647 kg 81.647 kg Intake: Oral 500 Other: Voiding Method External Catheter - Labs CBC & Chem 7: 08/10/23 05:06 08/10/23 05:06 Labs: Abnormal Lab Results - Last 24 Hours (Table) 08/09/23 08/09/23 08/09/23 Range/Units 12:57 12:57 12:57 RBC (4.10-5.20) X 10*6/uL Hgb (12.0-15.0) g/dL Hct (37.2-46.3) % MCH (27.0-32.0) pg MCHC (32.0-37.0) g/dL RDW (11.5-14.5) % ESR 88 H (0-30) mm/Hr BUN (9.0-27.0) mg/dL BUN/Creatinine Ratio (12.00-20.00) Ratio Glucose (70-110) mg/dL POC Glucose (mg/dL) (70-110) mg/dL Calcium (8.7-10.3) mg/dL Magnesium 1.5 L (1.6-2.3) mg/dL Urine Appearance Cloudy H (Clear) Urine Protein Trace H (Negative) Urine Glucose (UA) 3+ H (Negative) Urine Blood Small H (Negative) Ur Leukocyte Esterase Large H (Negative) Urine RBC 31 H (0-5) /hpf Urine WBC >182 H (0-5) /hpf Urine WBC Clumps Many H (None) /hpf Urine Bacteria Occasional H (None) /hpf 08/09/23 08/10/23 08/10/23 Range/Units 16:29 05:05 05:06 RBC 3.87 L (4.10-5.20) X 10*6/uL Hgb 10.4 L (12.0-15.0) g/dL Hct 35.5 L (37.2-46.3) % MCH 26.9 L (27.0-32.0) pg MCHC 29.3 L (32.0-37.0) g/dL RDW 21.3 H (11.5-14.5) % ESR (0-30) mm/Hr BUN (9.0-27.0) mg/dL BUN/Creatinine Ratio (12.00-20.00) Ratio Glucose (70-110) mg/dL POC Glucose (mg/dL) 69 L 123 H (70-110) mg/dL Calcium (8.7-10.3) mg/dL Magnesium (1.6-2.3) mg/dL Urine Appearance (Clear) Urine Protein (Negative) Urine Glucose (UA) (Negative) Urine Blood (Negative) Ur Leukocyte Esterase (Negative) Urine RBC (0-5) /hpf Urine WBC (0-5) /hpf Urine WBC Clumps (None) /hpf Urine Bacteria (None) /hpf 08/10/23 08/10/23 08/10/23 Range/Units 05:06 06:14 12:02 RBC (4.10-5.20) X 10*6/uL Hgb (12.0-15.0) g/dL Hct (37.2-46.3) % MCH (27.0-32.0) pg MCHC (32.0-37.0) g/dL RDW (11.5-14.5) % ESR (0-30) mm/Hr BUN 7.2 L (9.0-27.0) mg/dL BUN/Creatinine Ratio 8.00 L (12.00-20.00) Ratio Glucose 128 H (70-110) mg/dL POC Glucose (mg/dL) 117 H 313 H (70-110) mg/dL Calcium 8.1 L (8.7-10.3) mg/dL Magnesium (1.6-2.3) mg/dL Urine Appearance (Clear) Urine Protein (Negative) Urine Glucose (UA) (Negative) Urine Blood (Negative) Ur Leukocyte Esterase (Negative) Urine RBC (0-5) /hpf Urine WBC (0-5) /hpf Urine WBC Clumps (None) /hpf Urine Bacteria (None) /hpf Microbiology - Last 24 Hours (Table) 08/09/23 12:57 Gram Stain - Preliminary Leg - Right
--- NOTE | 2023-08-10 16:39 | P.GSCN ---
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 She states she has been doing well at her rehab facility until recently when she noticed transferring over utilizing a slide board she was a lot weaker and there was drainage coming out from her indication site as well as tense feeling in the stump. She denies any fevers, chills, chest pain or shortness of breath currently. She states that the stump was drained yesterday and cultures were obtained. Review of Systems All systems: negative (What is mentioned in the HPI or past medical history) Past Medical History Past Medical History: Coronary Artery Disease (CAD), Diabetes Mellitus, Deep Vein Thrombosis (DVT), Vascular Disorder Additional Past Medical History / Comment(s): SKIN CA. 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, NEUROPATHY LEGS & FEET, USING WALKER, .Mutiple DVT,mesentaric thrombosis x2 & PE, PAD, chronic pain syndrome, ddd lumbar region w/radiculopathy, HISTORY OF FALL 01/07/20 , tore rt rotator cuff, pancreatitis, fatty liver, Last Myocardial Infarction Date:: 2010 History of Any Multi-Drug Resistant Organisms: None Reported Past Surgical History: Section, Cholecystectomy, Heart Catheterization, Heart Catheterization With Stent, Orthopedic Surgery, Tonsillectomy, Tubal Ligation Additional Past Surgical History / Comment(s): 11 Stents in left leg, fistula left thigh, full mouth teeth extraction, TRAPEASE VENA CAVA FILTER, carpel tunnel, heart stents x4 rca and lad, tumor removal from uterus. Genital warts removed, INGRID. Skin cancer removed from neck, rt great toe amputated, col onoscopy, rt rotator, left shoulder replacement, cervial fusion, rt calf debridement, rt calf skin graft (May 2023) Past Anesthesia/Blood Transfusion Reactions: No Reported Reaction Date of Last Stent Placement:: Mar 2023 Past Psychological History: Anxiety, Depression Smoking Status: Current every day smoker Past Alcohol Use History: None Reported Past Drug Use History: None Reported - Past Family History Mother Family Medical History: Cancer, Congestive Heart Failure (CHF), Diabetes Ana itus, Myocardial Infarction (DE) Additional Family Medical History / Comment(s): UTERINE CANCER Father Family Medical History: Coronary Artery Disease (CAD), Myocardial Infarction (DE) Additional Family Medical History / Comment(s): Father at age 70. Sister(s) Family Medical History: Myocardial Infarction ([place]) Additional Family Medical History / Comment(s): Patient has one sister with myocardial infarction at age 55. Son(s) Family Medical History: Deep Vein Thrombosis (DVT), Pulmonary Embolus Additional Family Medical History / Comment(s): Patient has 2 sons and one has history of DVT and pulmonary embolism. Medications and Allergies Home Medications Medication Instructions Recorded Confirmed Type Rosuvastatin [Crestor] 20 mg PO DAILY@1700 01/08/23 08/09/23 History Ergocalciferol (Vitamin D2) 1,250 mcg PO GUERRERO 04/01/23 08/09/23 History [Drisdol (50,000 Iu)] Nitroglycerin Sl Tabs [Nitrostat] 0.4 mg SL Q5M PRN 04/01/23 08/09/23 History Omeprazole [PriLOSEC] 20 mg PO DAILY 04/01/23 08/09/23 History Apixaban [Eliquis] 5 mg PO BID@0800,1700 05/20/23 08/09/23 History Clopidogrel [Plavix] 75 mg PO DAILY@1100 05/20/23 08/09/23 History Ipratropium-Albuterol Nebulize 3 ml INHALATION RT-Q6H PRN each 06/14/23 08/09/23 Rx [Duoneb 0.5 mg-3 mg/3 ml Soln] DULoxetine HCL [Cymbalta] 60 mg PO BID 07/04/23 08/09/23 History Dapagliflozin Propanediol [Farxiga] 10 mg PO DAILY 07/04/23 08/09/23 History INSULIN ASPART (NovoLOG) [NovoLOG See Protocol SQ 07/04/23 08/09/23 History (formulary)] ACHS@07,11,1630,2130 Magnesium Hydroxide [Milk of 7,200 mg PO DAILY PRN 07/04/23 08/09/23 History Magnesia Concentrate] Metoprolol Tartrate [Lopressor] 25 mg PO BID@0800,1700 07/04/23 08/09/23 History Midodrine [ProAmatine] 5 mg PO BID@0800,1700 07/04/23 08/09/23 History Na Phos,M-B/Na Phos,Di-Ba [Fleet 133 ml RECTAL DAILY PRN 07/04/23 08/09/23 History Adult] bisacodyL [Dulcolax] 10 mg RECTAL DAILY PRN 07/04/23 08/09/23 History ALPRAZolam [Xanax] 0.25 mg PO BID PRN 3 Days #6 tab 07/10/23 08/09/23 Rx Acetaminophen Tab [Tylenol] 500 mg PO Q6HR PRN tab 07/10/23 08/09/23 Rx Docusate [Colace] 100 mg PO DAILY@0800 PRN #0 07/10/23 08/09/23 Rx Ferrous Sulfate [Feosol] 325 mg PO DAILY #0 07/10/23 08/09/23 Rx Gabapentin [Neurontin] 400 mg PO BID #6 cap 07/10/23 08/09/23 Rx INSULIN ASPART (NovoLOG) [NovoLOG 4 unit SQ AC-TID each 07/10/23 08/09/23 Rx (formulary)] Saline Nasal Gel [[place] Nasal Gel] 1 applic NASAL Q4HR PRN each 07/10/23 08/09/23 Rx Benzocaine/Menthol Lozeng [Cepacol 1 lozenge MUCOUS MEM Q4HR PRN 08/09/23 08/09/23 History lozenge] Fluticasone Nasal [place] [Flonase 1 spray EA NOSTRIL BID@0800,1700 08/09/23 08/09/23 History Nasal [place]] HYDROcodone/APAP 7.5-325MG [[place] 1 tab PO TID 08/09/23 08/09/23 History 7.5-325] Insulin Glargine [Lantus Vial] 0 unit SQ HS 08/09/23 08/09/23 History Lactulose [Cephulac] 20 gm PO DAILY PRN 08/09/23 08/09/23 History Loperamide [Imodium] 2 mg PO QID PRN 08/09/23 08/09/23 History Magnesium Oxide [Mag-Ox] 400 mg PO DAILY@1200 08/09/23 08/09/23 History Melatonin 3 mg PO HS 08/09/23 08/09/23 History Ondansetron [Zofran] 4 mg PO Q8H PRN 08/09/23 08/09/23 History Potassium Chloride [Klor-Con M20] 20 meq PO DAILY 08/09/23 08/09/23 History Spironolactone 25 mg PO DAILY 08/09/23 08/09/23 History polyethylene glycoL 3350 [Miralax] 17 gm PO DAILY PRN 08/09/23 08/09/23 History Allergies Allergy/AdvReac Type Severity Reaction Status Date / Time vancomycin Allergy Rash/Hives/and Verified 08/09/23 13:02 vomiting diarrhea/Swelling Surgical - Exam Vital Signs Temp Pulse Resp BP Pulse Ox 98.3 F 65 19 100/61 96 08/09/23 11:21 08/09/23 11:21 08/09/23 11:21 08/09/23 11:21 08/09/23 11:21 - General well developed, well nourished, no distress - Eyes PERRL, normal ocular movement - ENT normal pinna, normal nares - Neck no masses, no bruits - Cardiovascular Rhythm: regular - Abdomen Abdomen: soft, non tender - Integumentary no rash, no growths - Neurologic no normal sensation - Psychiatric oriented to time, oriented to person, oriented to place, speech is normal Right [id number] amputation stump with some tenderness to palpation on the anterior aspect as well as the medial aspect. There is a small pinpoint opening on the medial aspect of the incision that is draining. Tenderness to palpation at this area is significantly more pronounced. Left lower extremity is warm with good capillary refill. Right groin wound noted measuring 2 x 2 cm with red granulation tissue noted. Some serosanguineous drainage noted. No tenderness to palpation Results - Labs 08/10/23 05:06 08/10/23 05:06 Abnormal Lab Results - Last 24 Hours (Table) 08/09/23 08/10/23 08/10/23 Range/Units 12:57 05:05 05:06 RBC 3.87 L (4.10-5.20) X 10*6/uL Hgb 10.4 L (12.0-15.0) g/dL Hct 35.5 L (37.2-46.3) % MCH 26.9 L (27.0-32.0) pg MCHC 29.3 L (32.0-37.0) g/dL RDW 21.3 H (11.5-14.5) % ESR 88 H (0-30) mm/Hr BUN (9.0-27.0) mg/dL BUN/Creatinine Ratio (12.00-20.00) Ratio Glucose (70-110) mg/dL POC Glucose (mg/dL) 123 H (70-110) mg/dL Calcium (8.7-10.3) mg/dL 08/10/23 08/10/23 08/10/23 Range/Units 05:06 06:14 12:02 RBC (4.10-5.20) X 10*6/uL Hgb (12.0-15.0) g/dL Hct (37.2-46.3) % MCH (27.0-32.0) pg MCHC (32.0-37.0) g/dL RDW (11.5-14.5) % ESR (0-30) mm/Hr BUN 7.2 L (9.0-27.0) mg/dL BUN/Creatinine Ratio 8.00 L (12.00-20.00) Ratio Glucose 128 H (70-110) mg/dL POC Glucose (mg/dL) 117 H 313 H (70-110) mg/dL Calcium 8.1 L (8.7-10.3) mg/dL Microbiology - Last 24 Hours (Table) 08/09/23 12:57 Gram Stain - Preliminary Leg - Right Diabetes panel 08/10/23 Range/Units 05:06 Sodium 139 (135-145) mmol/L Potassium 4.1 (3.5-5.5) mmol/L Chloride 104 (96-109) mmol/L Carbon Dioxide 27.8 (21.6-31.8) mmol/L BUN 7.2 L (9.0-27.0) mg/dL Creatinine 0.9 (0.6-1.5) mg/dL Glucose 128 H (70-110) mg/dL Calcium 8.1 L (8.7-10.3) mg/dL Calcium panel 08/10/23 Range/Units 05:06 Calcium 8.1 L (8.7-10.3) mg/dL Pituitary panel 08/10/23 Range/Units 05:06 Sodium 139 (135-145) mmol/L Potassium 4.1 (3.5-5.5) mmol/L Chloride 104 (96-109) mmol/L Carbon Dioxide 27.8 (21.6-31.8) mmol/L BUN 7.2 L (9.0-27.0) mg/dL Creatinine 0.9 (0.6-1.5) mg/dL Glucose 128 H (70-110) mg/dL Calcium 8.1 L (8.7-10.3) mg/dL Adrenal panel 08/10/23 Range/Units 05:06 Sodium 139 (135-145) mmol/L Potassium 4.1 (3.5-5.5) mmol/L Chloride 104 (96-109) mmol/L Carbon Dioxide 27.8 (21.6-31.8) mmol/L BUN 7.2 L (9.0-27.0) mg/dL Creatinine 0.9 (0.6-1.5) mg/dL Glucose 128 H (70-110) mg/dL Calcium 8.1 L (8.7-10.3) mg/dL Assessment and Plan Assessment: Right above-knee amputation abscess Right chronic groin wound Peripheral arterial disease History of right above-knee amputation Coronary artery disease with history of coronary stenting Chronic DVT and PEs Morbid obesity Diabetic neuropathy Plan: Abscess was interrogated with sterile Q-tips and purulence was expressed from the wound. The abscess was then packed with iodoform gauze it should be changed every other day Continue local wound care to the right groin. Recommend silver type dressing. Continue IV antibiotics per infectious disease. Thank you for the consultation.
[2023-08-10 17:10] LABS: Glucose,Whole Blood 295 mg/dL (70-110)
[2023-08-10] MEDS: ATORVASTATIN 40 MG TAB PO SCH (17:25)
[2023-08-10 20:52] LABS: Glucose,Whole Blood 355 mg/dL (70-110)
[2023-08-10] MEDS: INSULIN DETEMIR (LEVEMIR) 100 UNIT/ML SYR SQ SCH (20:52)
[2023-08-10] MEDS ORDERED: INSULIN DETEMIR (LEVEMIR) 100 UNIT/ML SYR SQ SCH (21:00)
[2023-08-11] MEDS: CEFEPIME 2 GM in SODIUM CHLORIDE 0.9% 100 ML IVPB SCH ×4 (00:47→23:58)
[2023-08-11] MEDS: FLUTICASONE 50MCG/SPRAY NASAL 16GM EA NOSTRIL SCH ×2 (08:33→16:11)
[2023-08-11] MEDS: METOPROLOL TARTRATE 25 MG TAB PO SCH ×2 (08:33→16:11)
[2023-08-11] MEDS: MIDODRINE 5 MG TAB PO SCH ×2 (08:33→16:11)
[2023-08-11] MEDS: APIXABAN 5 MG TAB PO SCH ×2 (08:33→16:05)
[2023-08-11] MEDS: HYDROcodone/APAP 7.5-325MG 1 EACH TAB PO SCH ×3 (08:34→20:29)
[2023-08-11] MEDS: FERROUS SULFATE 325 MG TAB PO SCH (08:34)
[2023-08-11] MEDS: DULoxetine HCL 60 MG CAPSULE.DR PO SCH ×2 (08:34→20:30)
[2023-08-11] MEDS: DAPAGLIFLOZIN PROPANEDIOL 10 MG TABLET PO SCH (08:34)
[2023-08-11] MEDS: GABAPENTIN 400 MG CAP PO SCH ×2 (08:34→20:30)
[2023-08-11] MEDS: PANTOPRAZOLE 40 MG TABLET PO SCH (08:35)
[2023-08-11] MEDS: POTASSIUM CHLORIDE ER 20 MEQ TAB.ER PO SCH (08:35)
[2023-08-11] MEDS: SPIRONOLACTONE 25 MG TAB PO SCH (08:35)
[2023-08-11 08:44] LABS: Glucose,Whole Blood 174 mg/dL (70-110)
[2023-08-11] MEDS: INSULIN ASPART (NovoLOG) 100 UNIT/ML VIAL SQ SCH ×3 (08:44→17:47)
[2023-08-11 09:54] LABS: ALT 16 U/L (8-44); AST 21 U/L (13-35); Albumin 2.2 g/dL (3.8-4.9); Albumin/Globulin Ratio 0.71 Ratio (1.60-3.17); Alkaline Phosphatase 148 U/L (41-126); BUN/Creat Ratio 9.56 Ratio (12.00-20.00); Blood Urea Nitrogen 8.6 mg/dL (9.0-27.0); Carbon Dioxide 31.4 mmol/L (21.6-31.8); Chloride 100 mmol/L (96-109); Globulin 3.1 g/dL (1.6-3.3); Glucose 180 mg/dL (70-110); Potassium 4.7 mmol/L (3.5-5.5); Sodium 139 mmol/L (135-145); Total Bilirubin 0.4 mg/dL (0.3-1.2); Total Protein 5.3 g/dL (6.2-8.2)
[2023-08-11 10:06] LABS: Basophils # (A) 0.05 X 10*3/uL (0.00-0.10); Basophils % (A) 0.6 %; Eosinophils # (A) 0.22 X 10*3/uL (0.04-0.35); Eosinophils % (A) 2.7 %; HCT 38.4 % (37.2-46.3); HGB 11.5 g/dL (12.0-15.0); Lymphocytes # (A) 1.03 X 10*3/uL (0.90-5.00); Lymphocytes % (A) 12.6 %; MCH 27.1 pg (27.0-32.0); MCHC 29.9 g/dL (32.0-37.0); MCV 90.6 FL (80.0-97.0); Mean Platelet Volume 10.8 FL (9.5-12.2); Monocytes # (A) 0.68 X 10*3/uL (0.20-1.00); Monocytes % (A) 8.3 %; NRBC Per 100 WBC 0 X 10*3/uL (0.00-0.01); Neutrophils # (A) 6.16 X 10*3/uL (1.80-7.70); Neutrophils % (A) 75.6 %; Platelet Count 292 X 10*3/uL (140-440); RBC 4.24 X 10*6/uL (4.10-5.20); RDW 21.1 % (11.5-14.5); WBC 8.16 X 10*3/uL (4.50-10.00)
[2023-08-11] MEDS: CHOLESTYRAMINE (WITH SUGAR) 4 GM PACKET PO SCH ×2 (10:52→16:12)
[2023-08-11] MEDS: MAGNESIUM OXIDE 400 MG TAB PO SCH (10:56)
[2023-08-11] MEDS: CLOPIDOGREL 75 MG TAB PO SCH (10:56)
--- NOTE | 2023-08-11 11:48 | P.PN ---
Subjective Progress Note Date: 08/11/23 HISTORY OF PRESENT ILLNESS This is a 63-year-old female patient of mine with history of CAD with multiple cardiac stents in mid RCA, mid LAD, obtuse marginal branch and followed by Dr. Bill closely, peripheral artery disease with previous stenting done as well has amputation of the right great toe secondary to osteomyelitis, CVA with no residual deficits, hypertension, COPD, diabetes mellitus type 2, previous multiple DVT and PE requiring chronic anticoagulation on eliquis, history of GI bleed secondary to antral gastritis, esophagitis, vitamin D deficiency, autono margot hypotension on midodrine, history of left humerus fracture. resume with patient April 02 through April 15 at which time she presented to the hospital due to right second and fifth toe ischemic change. A CT angiogram showed evidence of occlusion of the right superficial femoral artery and 2 occluded segments 1 in the mid thigh about 3 cm and another into the right popliteal artery at 13 cm length, occlusion of the right iliac artery into the common femoral artery. Patient was seen in consultation by vascular surgery. Arterial ultrasound showed lower extremity abnormal on the right with HERMINIA suggests severe atherosclerotic disease. Critical stenosis not excluded. Plan for open bypass surgery with vascular surgery was made but a cardiology consult was requested. Patient was seen by Dr. Bill and had chest pain complaint and Due to critical in-stent restenosis and subsequently underwent cardiac catheterization which revealed critical in-stent restenosis of the RCA and Dr. Bill present performed stenting of the RCA. There was also intermediate disease in the first obtuse marginal branch of the left circumflex, intermediate disease involving the LAD and mildly elevated left sided filling pressures after that patient developed to have significant hematoma require blood for sedation and ICU management, and after that underwent incision and drainage of the hematoma, and she also underwent the bright bed of the Achilles wound after she has had a graft that did not last much patient was treated with IV antibiotic and eventually the decision was made to go for a right efyjs-hls-hcfg amputation as a definitive treatment for her peripheral vascular disease patient had that and she was sent to [facility] for physical therapy rehabilitation, while she was at [facility] she developed increased diarrhea with significant drop in her potassium and Magnesium and she was was last seen by vascular surgery before [place] 2 weeks ago and she had a small wound for which she did receive local care and today I did receive a call from Nursing staff at [facility] that the patient is having severe diarrhea with increased purulent drainage from the right stump wound , so she was sent to the Er for evaluation and she was found to have infected wound was started on IV ABX with Cefepime and wound cultures and blood cultures were done , consulted ID and vascular surgery 08/10: Patient sitting up in bed in no apparent distress, she denies any chest pain, shortness breath, she did not have any diarrhea since 2:00 in the morning, she is eating her food, her magnesium level is 1.5, she will receive 2 g of magnesium sulfate IV piggyback 1 continue oral magnesium at this time, resume the patient's Farxiga 10 mg once every day, start the patient on Levemir 15 units at bedtime, along with a sliding scale insulin. Her sugar has been high. 08/11: Patient is laying down in bed in no apparent distress, she has no fever or chills at this time, she was seen yesterday by vascular surgery she did have cleansing of the wound at the bedside that express more pus, recommended silver dressing on a daily basis, denies any antibiotic at this point in time in the form of cefepime, infectious disease is following, blood glucose level appears to be a bit better today, continue patient on the current treatment plan, continue diabetic diet, Gram stain of the cultures showed gram positive cocci, and blood cultures are negative after 24 hours. REVIEW OF SYSTEMS Constitutional: positive for fever, No chills, no night sweats. Reports weight loss. Reports weakness, Reports fatigue no lethargy. NO daytime sleepiness. HEENT: No headache. positive for dizziness. No nasal drainage or congestion. No epistaxis. No sore throat. Lungs: No shortness of breath, no cough, no sputum production. No wheezing. Cardiovascular: No chest pain, no lower extremity edema. No palpitations. No paroxysmal nocturnal dyspnea. No orthopnea. No lightheadedness or dizziness. No syncopal episodes. Abdominal: Reports abdominal pain. Reports nausea, no vomiting. positive for diarrhea. No constipation. No bloody or tarry stools. good appetite. Genitourinary: No dysuria, increased frequency, urgency. No urinary retention. Musculoskeletal: No myalgias. positive for muscle weakness, reports balance issues. Integumentary: Right AKA with minima erythema to the side with minimal drainage Neurologic: No aphasia. No facial droop. No change in mentation. No head injury. No headache. No paralysis. No paresthesia. Psychiatric: Reports depression. Reports anxiety. No mood swings. Endocrine: abnormal blood sugars. positive for weight change. No excessive sweating or thirst. No cold intolerance. PHYSICAL EXAMINATION Gen: This is a 63-year-old female. She is resting on ER bed and does not appear to be in no acute distress. HEENT: Head is atraumatic, normocephalic. Pupils equal, round. Sclerae is anicteric. Mucous members of the mouth are somewhat dry. NECK: Supple. No JVD. No lymphadenopathy. No thyromegaly. LUNGS: Clear to auscultation. No wheezes or rhonchi. No intercostal retractions. 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 ABDOMEN: Soft, mild tenderness in the epigastric area and no rebound or guarding positive bowel sounds EXTREMITIES: Right above-knee amputation with small wound to the side minimal drainage NEUROLOGICAL: Patient is awake, alert and oriented x3. Cranial nerves 2 through 12 are grossly intact muscle power were 4 out of 5 in upper extremity is, and 3 out of 5 in the left lower extremity. She does have a right above-knee amputation. ASSESSMENT AND PLAN 1. Infected right stump wound . wound culture and blood cultures, continue patient on cefepime 2 g IV piggyback every 8 hours, Gram stain showed gram- positive cocci, blood cultures so far showed negative result after 24 hours, continue local care, continue IV antibiotic, ID and vascular surgery are following 2. Status post right auxsn-ofl-rbbn amputation. Wound was cleansed at the bedside yesterday continue with local care and IV antibiotic 3. Coronary artery disease with recent stent of the RCA due to recent in-stent restenosis. Patient has had previous multiple cardiac stents to the RCA and mid LAD, obtuse marginal branch. Continue patient on Plavix 75 mg daily, Lopressor 25 mg twice daily, Atorvastatin 40 mg po daily . 4. Diabetes mellitus type 2 uncontrolled with hypoglycemia. we will continue with Humalog 4 units AC meals tid , we will add Levemir 8 units sc qhs and Farxiga 10 mg po daily 5. Hyperlipidemia. Continue Atorvastatin 40 mg po daily 6. Chronic DVT and PEs. Continue patient on eliquis 5 mg twice daily. 7. Orthostatic hypotension continue patient on Midodrin 5 mg po tid 8. Hypertension and hypertensive cardiovascular disease. Continue metoprolol 25 mg orally twice every day. 9. Gastroesophageal reflux disease and GI prophylaxis. Continue Pantoprazole 40 mg daily. 10. Diabetic neuropathy. we will continue wit Gabapentin 400 mg po tid. 11. Generalized anxiety disorder, recurrent depression. Continue Cymbalta 60 mg po bid 13. DVT prophylaxis. Continue Eliquis 5 mg po bid 14. GI prophylaxis. Continue patient on PPI. 15. physical therapy evaluation. 16. community mental health worker consultation for discharge planning. Objective - Vital Signs Vital signs: Vital Signs Temp 98 F 08/11/23 08:00 Pulse 98 08/11/23 08:00 Resp 19 08/11/23 08:00 BP 123/79 08/11/23 08:00 Pulse Ox 95 08/11/23 08:00 FiO2 Intake & Output 08/10/23 08/11/23 08/11/23 18:59 06:59 18:59 Intake Total 500 Output Total 1800 1150 700 Balance -1300 -1150 -700 Intake: Oral 500 Output: Urine 1800 1150 700 Other: Voiding Method External Catheter - Labs CBC & Chem 7: 08/11/23 05:37 08/11/23 05:37 Labs: Abnormal Lab Results - Last 24 Hours (Table) 08/10/23 08/10/23 08/10/23 Range/Units 12:02 17:07 20:51 Hgb (12.0-15.0) g/dL MCHC (32.0-37.0) g/dL RDW (11.5-14.5) % BUN (9.0-27.0) mg/dL BUN/Creatinine Ratio (12.00-20.00) Ratio Glucose (70-110) mg/dL POC Glucose (mg/dL) 313 H 295 H 355 H (70-110) mg/dL Alkaline Phosphatase (41-126) U/L Total Protein (6.2-8.2) g/dL Albumin (3.8-4.9) g/dL Albumin/Globulin Ratio (1.60-3.17) Ratio 08/11/23 08/11/23 08/11/23 Range/Units 05:37 05:37 08:42 Hgb 11.5 L (12.0-15.0) g/dL MCHC 29.9 L (32.0-37.0) g/dL RDW 21.1 H (11.5-14.5) % BUN 8.6 L (9.0-27.0) mg/dL BUN/Creatinine Ratio 9.56 L (12.00-20.00) Ratio Glucose 180 H (70-110) mg/dL POC Glucose (mg/dL) 174 H (70-110) mg/dL Alkaline Phosphatase 148 H (41-126) U/L Total Protein 5.3 L (6.2-8.2) g/dL Albumin 2.2 L (3.8-4.9) g/dL Albumin/Globulin Ratio 0.71 L (1.60-3.17) Ratio Microbiology - Last 24 Hours (Table) 08/09/23 15:45 Blood Culture - Preliminary Blood
[2023-08-11 12:07] LABS: Glucose,Whole Blood 156 mg/dL (70-110)
[2023-08-11] MEDS: ATORVASTATIN 40 MG TAB PO SCH (16:05)
[2023-08-11 18:49] LABS: Glucose,Whole Blood 171 mg/dL (70-110)
[2023-08-11 21:01] LABS: Glucose,Whole Blood 137 mg/dL (70-110)
[2023-08-11] MEDS: INSULIN DETEMIR (LEVEMIR) 100 UNIT/ML SYR SQ SCH (21:52)
[2023-08-12 06:03] LABS: Glucose,Whole Blood 160 mg/dL (70-110)
[2023-08-12] MEDS: ALPRAZolam 0.25 MG TAB PO PRN (06:24)
[2023-08-12] MEDS: INSULIN ASPART (NovoLOG) 100 UNIT/ML VIAL SQ SCH ×3 (08:22→18:00)
[2023-08-12] MEDS: CEFEPIME 2 GM in SODIUM CHLORIDE 0.9% 100 ML IVPB SCH ×3 (08:23→22:36)
[2023-08-12] MEDS: FLUTICASONE 50MCG/SPRAY NASAL 16GM EA NOSTRIL SCH ×2 (08:23→17:58)
[2023-08-12] MEDS: APIXABAN 5 MG TAB PO SCH ×2 (08:23→18:11)
[2023-08-12] MEDS: HYDROcodone/APAP 7.5-325MG 1 EACH TAB PO SCH ×3 (08:24→22:35)
[2023-08-12] MEDS: PANTOPRAZOLE 40 MG TABLET PO SCH (08:25)
[2023-08-12] MEDS: FERROUS SULFATE 325 MG TAB PO SCH (08:25)
[2023-08-12] MEDS: DULoxetine HCL 60 MG CAPSULE.DR PO SCH ×2 (08:26→21:01)
[2023-08-12] MEDS: METOPROLOL TARTRATE 25 MG TAB PO SCH ×2 (08:26→18:00)
[2023-08-12] MEDS: MIDODRINE 5 MG TAB PO SCH ×2 (08:26→18:00)
[2023-08-12] MEDS: POTASSIUM CHLORIDE ER 20 MEQ TAB.ER PO SCH (08:26)
[2023-08-12] MEDS: GABAPENTIN 400 MG CAP PO SCH ×2 (08:26→21:01)
[2023-08-12] MEDS: SPIRONOLACTONE 25 MG TAB PO SCH (08:27)
[2023-08-12] MEDS: CHOLESTYRAMINE (WITH SUGAR) 4 GM PACKET PO SCH ×3 (08:29→18:00)
[2023-08-12] MEDS: DAPAGLIFLOZIN PROPANEDIOL 10 MG TABLET PO SCH (08:30)
[2023-08-12 08:51] LABS: ALT 15 U/L (8-44); AST 27 U/L (13-35); Albumin 2.1 g/dL (3.8-4.9); Alkaline Phosphatase 137 U/L (41-126); BUN/Creat Ratio 13.75 Ratio (12.00-20.00); Calcium 8.5 mg/dL (8.7-10.3); Carbon Dioxide 26.5 mmol/L (21.6-31.8); Chloride 103 mmol/L (96-109); Glucose 183 mg/dL (70-110); Potassium 4.2 mmol/L (3.5-5.5); Sodium 138 mmol/L (135-145); Total Bilirubin 0.5 mg/dL (0.3-1.2); Total Protein 5.1 g/dL (6.2-8.2)
[2023-08-12 08:53] LABS: Basophils # (A) 0.06 X 10*3/uL (0.00-0.10); Basophils % (A) 0.8 %; Eosinophils # (A) 0.22 X 10*3/uL (0.04-0.35); Eosinophils % (A) 2.8 %; HCT 38.4 % (37.2-46.3); HGB 11.4 g/dL (12.0-15.0); Lymphocytes # (A) 1.22 X 10*3/uL (0.90-5.00); Lymphocytes % (A) 15.7 %; MCH 26.5 pg (27.0-32.0); MCHC 29.7 g/dL (32.0-37.0); MCV 89.3 FL (80.0-97.0); Mean Platelet Volume 10.5 FL (9.5-12.2); Monocytes % (A) 6.4 %; NRBC Per 100 WBC 0 X 10*3/uL (0.00-0.01); Neutrophils # (A) 5.73 X 10*3/uL (1.80-7.70); Neutrophils % (A) 73.9 %; Platelet Count 277 X 10*3/uL (140-440); RDW 21.1 % (11.5-14.5); WBC 7.76 X 10*3/uL (4.50-10.00)
--- NOTE | 2023-08-12 10:41 | P.PN ---
Subjective Progress Note Date: 08/12/23 Principal diagnosis: Infected right ymvut-bru-pusj amputation site Patient is seen and examined has a follow-up. She's been afebrile. 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 Redness also improved. She remains on IV antibiotics. Wound culture coming back as MRSA. She states she still having diarrhea. Stool culture is negative. Objective - Vital Signs Vital signs: Vital Signs Temp 97.9 F 08/12/23 06:55 Pulse 87 08/12/23 06:55 Resp 17 08/12/23 06:55 BP 99/65 08/12/23 06:55 Pulse Ox 95 08/12/23 06:55 FiO2 Intake & Output 08/11/23 08/12/23 08/12/23 18:59 06:59 18:59 Intake Total 500 Output Total 1400 1900 Balance -900 -1900 Intake: Oral 500 Output: Urine 1400 1900 Other: Voiding Method External Catheter External Catheter # Bowel Movements 1 - Exam General appearance: The patient is alert, oriented, appears in no acute dist ress. HET: Head is normocephalic and atraumatic. Pupils are equal and reactive. Neck: Supple. Abdomen: Soft, nondistended. Extremities: Right groin with dressing in place. Right medial aspect of a pytj-yhy-elfo amputation stump with dressing. Dressing changed and pin point wound packed with iodoform. Surrounding tissue with very minimal surrounding erythema. Neurological: No focal deficits. - Labs CBC & Chem 7: 08/12/23 06:06 08/12/23 06:06 Labs: Abnormal Lab Results - Last 24 Hours (Table) 08/11/23 08/11/23 08/11/23 Range/Units 05:37 05:37 12:06 Hgb 11.5 L (12.0-15.0) g/dL MCH (27.0-32.0) pg MCHC 29.9 L (32.0-37.0) g/dL RDW 21.1 H (11.5-14.5) % BUN 8.6 L (9.0-27.0) mg/dL BUN/Creatinine Ratio 9.56 L (12.00-20.00) Ratio Glucose 180 H (70-110) mg/dL POC Glucose (mg/dL) 156 H (70-110) mg/dL Calcium (8.7-10.3) mg/dL Alkaline Phosphatase 148 H (41-126) U/L Total Protein 5.3 L (6.2-8.2) g/dL Albumin 2.2 L (3.8-4.9) g/dL Albumin/Globulin Ratio 0.71 L (1.60-3.17) Ratio 08/11/23 08/11/23 08/12/23 Range/Units 18:47 20:59 06:02 Hgb (12.0-15.0) g/dL MCH (27.0-32.0) pg MCHC (32.0-37.0) g/dL RDW (11.5-14.5) % BUN (9.0-27.0) mg/dL BUN/Creatinine Ratio (12.00-20.00) Ratio Glucose (70-110) mg/dL POC Glucose (mg/dL) 171 H 137 H 160 H (70-110) mg/dL Calcium (8.7-10.3) mg/dL Alkaline Phosphatase (41-126) U/L Total Protein (6.2-8.2) g/dL Albumin (3.8-4.9) g/dL Albumin/Globulin Ratio (1.60-3.17) Ratio 08/12/23 08/12/23 Range/Units 06:06 06:06 Hgb 11.4 L (12.0-15.0) g/dL MCH 26.5 L (27.0-32.0) pg MCHC 29.7 L (32.0-37.0) g/dL RDW 21.1 H (11.5-14.5) % BUN (9.0-27.0) mg/dL BUN/Creatinine Ratio (12.00-20.00) Ratio Glucose 183 H (70-110) mg/dL POC Glucose (mg/dL) (70-110) mg/dL Calcium 8.5 L (8.7-10.3) mg/dL Alkaline Phosphatase 137 H (41-126) U/L Total Protein 5.1 L (6.2-8.2) g/dL Albumin 2.1 L (3.8-4.9) g/dL Albumin/Globulin Ratio 0.70 L (1.60-3.17) Ratio Microbiology - Last 24 Hours (Table) 08/09/23 15:45 Blood Culture - Preliminary Blood 08/09/23 12:57 Stool Culture - Preliminary Stool 08/09/23 12:57 Gram Stain - Final Leg - Right Wound Culture - Final Methicillin resist S. aureus 08/10/23 05:06 Blood Culture - Preliminary Blood 08/09/23 15:30 Blood Culture - Preliminary Blood Assessment and Plan Assessment: 1. Right above-knee amputation abscess 2. Right chronic groin wound 3. Peripheral arterial disease 4. Diarrhea 5. History of right qczmx-gzd-[id number] amputation 6. Coronary artery disease with history of coronary stenting 7. Chronic DVT and PEs 8. Morbid obesity 9. Diabetic neuropathy Plan: 1. Dressing change every other day to right amputation wound with iodoform 2. Local wound care with Dressing change on right groin with opticell silver 3. Continue IV antibiotics per recommendations from infectious disease Thank you for this consultation. The impression and plan of care has been dictated as directed. I performed a history and examination of this patient, discussed the same with the dictator. I agree with the dictator's note ,documented as a scribe. Any additional findings or plans will be noted.
[2023-08-12] MEDS: MAGNESIUM OXIDE 400 MG TAB PO SCH (11:49)
[2023-08-12] MEDS: CLOPIDOGREL 75 MG TAB PO SCH (11:49)
--- NOTE | 2023-08-12 11:59 | P.PN ---
Subjective Progress Note Date: 08/12/23 HISTORY OF PRESENT ILLNESS This is a 63-year-old female patient of mine with history of CAD with multiple cardiac stents in mid RCA, mid LAD, obtuse marginal branch and followed by Dr. Bill closely, peripheral artery disease with previous stenting done as well has amputation of the right great toe secondary to osteomyelitis, CVA with no residual deficits, hypertension, COPD, diabetes mellitus type 2, previous multiple DVT and PE requiring chronic anticoagulation on eliquis, history of GI bleed secondary to antral gastritis, esophagitis, vitamin D deficiency, autono margot hypotension on midodrine, history of left humerus fracture. resume with patient April 02 through April 15 at which time she presented to the hospital due to right second and fifth toe ischemic change. A CT angiogram showed evidence of occlusion of the right superficial femoral artery and 2 occluded segments 1 in the mid thigh about 3 cm and another into the right popliteal artery at 13 cm length, occlusion of the right iliac artery into the common femoral artery. Patient was seen in consultation by vascular surgery. Arterial ultrasound showed lower extremity abnormal on the right with HERMINIA suggests severe atherosclerotic disease. Critical stenosis not excluded. Plan for open bypass surgery with vascular surgery was made but a cardiology consult was requested. Patient was seen by Dr. Bill and had chest pain complaint and Due to critical in-stent restenosis and subsequently underwent cardiac catheterization which revealed critical in-stent restenosis of the RCA and Dr. Bill present performed stenting of the RCA. There was also intermediate disease in the first obtuse marginal branch of the left circumflex, intermediate disease involving the LAD and mildly elevated left sided filling pressures after that patient developed to have significant hematoma require blood for sedation and ICU management, and after that underwent incision and drainage of the hematoma, and she also underwent the bright bed of the Achilles wound after she has had a graft that did not last much patient was treated with IV antibiotic and eventually the decision was made to go for a right nnnee-kom-geiv amputation as a definitive treatment for her peripheral vascular disease patient had that and she was sent to [facility] for physical therapy rehabilitation, while she was at [facility] she developed increased diarrhea with significant drop in her potassium and Magnesium and she was was last seen by vascular surgery before [place] 2 weeks ago and she had a small wound for which she did receive local care and today I did receive a call from Nursing staff at [facility] that the patient is having severe diarrhea with increased purulent drainage from the right stump wound , so she was sent to the Er for evaluation and she was found to have infected wound was started on IV ABX with Cefepime and wound cultures and blood cultures were done , consulted ID and vascular surgery 08/10: Patient sitting up in bed in no apparent distress, she denies any chest pain, shortness breath, she did not have any diarrhea since 2:00 in the morning, she is eating her food, her magnesium level is 1.5, she will receive 2 g of magnesium sulfate IV piggyback 1 continue oral magnesium at this time, resume the patient's Farxiga 10 mg once every day, start the patient on Levemir 15 units at bedtime, along with a sliding scale insulin. Her sugar has been high. 08/11: Patient is laying down in bed in no apparent distress, she has no fever or chills at this time, she was seen yesterday by vascular surgery she did have cleansing of the wound at the bedside that express more pus, recommended silver dressing on a daily basis, denies any antibiotic at this point in time in the form of cefepime, infectious disease is following, blood glucose level appears to be a bit better today, continue patient on the current treatment plan, continue diabetic diet, Gram stain of the cultures showed gram positive cocci, and blood cultures are negative after 24 hours. 08/12: Patient has been followed by ID and vascular surgery. Erythema and drainage to the stump is improving. Wound care is iodoform with change every other day. Patient is continued on Cefepime. BP 99/65 - 126/77. HR 70-80s. No leukocytosis. Wound culture is MRSA. Blood culture no growth x3. Capillary blood glucose running between 137 and 171. REVIEW OF SYSTEMS Constitutional: positive for fever, No chills, no night sweats. Reports weight loss. Reports weakness, Reports fatigue no lethargy. NO daytime sleepiness. HEENT: No headache. positive for dizziness. No nasal drainage or congestion. No epistaxis. No sore throat. Lungs: No shortness of breath, no cough, no sputum production. No wheezing. Cardiovascular: No chest pain, no lower extremity edema. No palpitations. No paroxysmal nocturnal dyspnea. No orthopnea. No lightheadedness or dizziness. No syncopal episodes. Abdominal: Reports abdominal pain. Reports nausea, no vomiting. positive for diarrhea. No constipation. No bloody or tarry stools. good appetite. Genitourinary: No dysuria, increased frequency, urgency. No urinary retention. Musculoskeletal: No myalgias. positive for muscle weakness, reports balance issues. Integumentary: Right AKA with minima erythema to the side with minimal drainage Neurologic: No aphasia. No facial droop. No change in mentation. No head injury. No headache. No paralysis. No paresthesia. Psychiatric: Reports depression. Reports anxiety. No mood swings. Endocrine: abnormal blood sugars. positive for weight change. No excessive sweating or thirst. No cold intolerance. PHYSICAL EXAMINATION Gen: This is a 63-year-old female. She is resting on ER bed and does not appear to be in no acute distress. HEENT: Head is atraumatic, normocephalic. Pupils equal, round. Sclerae is anicteric. Mucous members of the mouth are somewhat dry. NECK: Supple. No JVD. No lymphadenopathy. No thyromegaly. LUNGS: Clear to auscultation. No wheezes or rhonchi. No intercostal retractions. 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 ABDOMEN: Soft, mild tenderness in the epigastric area and no rebound or guarding positive bowel sounds EXTREMITIES: Right above-knee amputation with small wound to the side minimal drainage NEUROLOGICAL: Patient is awake, alert and oriented x3. Cranial nerves 2 through 12 are grossly intact muscle power were 4 out of 5 in upper extremity is, and 3 out of 5 in the left lower extremity. She does have a right above-knee amputation. ASSESSMENT AND PLAN 1. Infected right stump wound with MRSA. Continue patient on cefepime 2 g IV piggyback every 8 hours, blood cultures so far showed negative result after 24 and 48 hours, continue local care, continue IV antibiotic, ID and vascular surgery are following 2. Status post right ctsxa-aai-sjas amputation. Wound was cleansed at the bedside yesterday continue with local care and IV antibiotic 3. Coronary artery disease with recent stent of the RCA due to recent in-stent restenosis. Patient has had previous multiple cardiac stents to the RCA and mid LAD, obtuse marginal branch. Continue patient on Plavix 75 mg daily, Lopressor 25 mg twice daily, Atorvastatin 40 mg po daily . 4. Diabetes mellitus type 2 uncontrolled with hypoglycemia. we will continue with Humalog 4 units AC meals tid , we will add Levemir 8 units sc qhs and Farxiga 10 mg po daily 5. Hyperlipidemia. Continue Atorvastatin 40 mg po daily 6. Chronic DVT and PEs. Continue patient on eliquis 5 mg twice daily. 7. Orthostatic hypotension continue patient on Midodrin 5 mg po tid 8. Hypertension and hypertensive cardiovascular disease. Continue metoprolol 25 mg orally twice every day. 9. Gastroesophageal reflux disease and GI prophylaxis. Continue Pantoprazole 40 mg daily. 10. Diabetic neuropathy. we will continue wit Gabapentin 400 mg po tid. 11. Generalized anxiety disorder, recurrent depression. Continue Cymbalta 60 mg po bid 13. DVT prophylaxis. Continue Eliquis 5 mg po bid 14. GI prophylaxis. Continue patient on PPI. 15. physical therapy evaluation. 16. community organization worker consultation for discharge planning. Impression and plan of care have been directed as dictated by the signing physician. Kerri Kevin nurse practitioner acting as scribe for signing ph ysician. Objective - Vital Signs Vital signs: Vital Signs Temp 97.9 F 08/12/23 06:55 Pulse 87 08/12/23 06:55 Resp 17 08/12/23 08:23 BP 99/65 08/12/23 06:55 Pulse Ox 95 08/12/23 06:55 FiO2 Intake & Output 08/11/23 08/12/23 08/12/23 18:59 06:59 18:59 Intake Total 500 118 Output Total 1400 1900 Balance -900 -1900 118 Intake: Oral 500 118 Output: Urine 1400 1900 Other: Voiding Method External Catheter External Catheter External Catheter # Bowel Movements 1 2 - Labs CBC & Chem 7: 08/12/23 06:06 08/12/23 06:06 Labs: Abnormal Lab Results - Last 24 Hours (Table) 08/11/23 08/11/23 08/11/23 Range/Units 12:06 18:47 20:59 Hgb (12.0-15.0) g/dL MCH (27.0-32.0) pg MCHC (32.0-37.0) g/dL RDW (11.5-14.5) % Glucose (70-110) mg/dL POC Glucose (mg/dL) 156 H 171 H 137 H (70-110) mg/dL Calcium (8.7-10.3) mg/dL Alkaline Phosphatase (41-126) U/L Total Protein (6.2-8.2) g/dL Albumin (3.8-4.9) g/dL Albumin/Globulin Ratio (1.60-3.17) Ratio 08/12/23 08/12/23 08/12/23 Range/Units 06:02 06:06 06:06 Hgb 11.4 L (12.0-15.0) g/dL MCH 26.5 L (27.0-32.0) pg MCHC 29.7 L (32.0-37.0) g/dL RDW 21.1 H (11.5-14.5) % Glucose 183 H (70-110) mg/dL POC Glucose (mg/dL) 160 H (70-110) mg/dL Calcium 8.5 L (8.7-10.3) mg/dL Alkaline Phosphatase 137 H (41-126) U/L Total Protein 5.1 L (6.2-8.2) g/dL Albumin 2.1 L (3.8-4.9) g/dL Albumin/Globulin Ratio 0.70 L (1.60-3.17) Ratio Microbiology - Last 24 Hours (Table) 08/09/23 15:45 Blood Culture - Preliminary Blood 08/09/23 12:57 Stool Culture - Preliminary Stool 08/09/23 12:57 Gram Stain - Final Leg - Right Wound Culture - Final Methicillin resist S. aureus 08/10/23 05:06 Blood Culture - Preliminary Blood 08/09/23 15:30 Blood Culture - Preliminary Blood
[2023-08-12 12:27] LABS: Glucose,Whole Blood 209 mg/dL (70-110)
[2023-08-12 17:04] LABS: Glucose,Whole Blood 222 mg/dL (70-110)
[2023-08-12] MEDS: ATORVASTATIN 40 MG TAB PO SCH (18:00)
[2023-08-12 20:34] LABS: Glucose,Whole Blood 205 mg/dL (70-110)
[2023-08-12] MEDS: INSULIN DETEMIR (LEVEMIR) 100 UNIT/ML SYR SQ SCH (21:01)
[2023-08-13] MEDS: INSULIN ASPART (NovoLOG) 100 UNIT/ML VIAL SQ SCH ×3 (05:23→18:10)
[2023-08-13 05:28] LABS: Glucose,Whole Blood 100 mg/dL (70-110)
[2023-08-13] MEDS: MIDODRINE 5 MG TAB PO SCH ×2 (08:06→18:10)
[2023-08-13] MEDS: FERROUS SULFATE 325 MG TAB PO SCH (08:06)
[2023-08-13] MEDS: DAPAGLIFLOZIN PROPANEDIOL 10 MG TABLET PO SCH (08:06)
[2023-08-13] MEDS: SPIRONOLACTONE 25 MG TAB PO SCH (08:06)
[2023-08-13] MEDS: CEFEPIME 2 GM in SODIUM CHLORIDE 0.9% 100 ML IVPB SCH (08:06)
[2023-08-13] MEDS: DULoxetine HCL 60 MG CAPSULE.DR PO SCH ×2 (08:06→20:42)
[2023-08-13] MEDS: GABAPENTIN 400 MG CAP PO SCH ×2 (08:07→20:42)
[2023-08-13] MEDS: PANTOPRAZOLE 40 MG TABLET PO SCH (08:07)
[2023-08-13] MEDS: METOPROLOL TARTRATE 25 MG TAB PO SCH ×2 (08:07→18:10)
[2023-08-13] MEDS: POTASSIUM CHLORIDE ER 20 MEQ TAB.ER PO SCH (08:07)
[2023-08-13] MEDS: HYDROcodone/APAP 7.5-325MG 1 EACH TAB PO SCH ×3 (08:07→20:42)
[2023-08-13] MEDS: APIXABAN 5 MG TAB PO SCH ×2 (08:07→18:10)
[2023-08-13] MEDS: CHOLESTYRAMINE (WITH SUGAR) 4 GM PACKET PO SCH ×2 (08:08→18:08)
[2023-08-13] MEDS: FLUTICASONE 50MCG/SPRAY NASAL 16GM EA NOSTRIL SCH ×2 (10:09→18:25)
[2023-08-13] MEDS: CLOPIDOGREL 75 MG TAB PO SCH (10:10)
[2023-08-13] MEDS: MAGNESIUM OXIDE 400 MG TAB PO SCH (10:10)
--- NOTE | 2023-08-13 10:13 | P.PN ---
Subjective Progress Note Date: 08/13/23 Principal diagnosis: Infected right qdpmc-ueb-atzq amputation site She was seen and examined as a follow-up. Note changes through the night. She remains afebrile. Dressings changed yesterday. Does have some drainage from the right AKA wound. Patient reports some mild discomfort surrounding the stump. Somewhat improved though prior to admission. Objective - Vital Signs Vital signs: Vital Signs Temp 97.9 F 08/13/23 07:40 Pulse 87 08/13/23 07:40 Resp 16 08/13/23 07:40 BP 118/75 08/13/23 07:40 Pulse Ox 98 08/13/23 07:40 FiO2 Intake & Output 08/12/23 08/13/23 08/13/23 18:59 06:59 18:59 Intake Total 858 260 Output Total 625 1400 Balance 233 -1400 260 Intake: Oral 858 260 Output: Urine 625 1400 Other: Voiding Method External Catheter External Catheter External Catheter # Bowel Movements 2 1 - Exam General appearance: The patient is alert, oriented, appears in no acute distress. HET: Head is normocephalic and atraumatic. Pupils are equal and reactive. Neck: Supple. Abdomen: Soft, nondistended. Extremities: Right groin with dressing in place. Right medial aspect of oqejj-iay-ohwn amputation stump with dressing. Neurological: No focal deficits. - Labs CBC & Chem 7: 08/12/23 06:06 08/12/23 06:06 Labs: Abnormal Lab Results - Last 24 Hours (Table) 08/12/23 08/12/23 08/12/23 Range/Units 12:26 17:02 20:33 POC Glucose (mg/dL) 209 H 222 H 205 H (70-110) mg/dL Microbiology - Last 24 Hours (Table) 08/09/23 15:45 Blood Culture - Preliminary Blood 08/09/23 12:57 Stool Culture - Final Stool 08/10/23 05:06 Blood Culture - Preliminary Blood 08/09/23 15:30 Blood Culture - Preliminary Blood Assessment and Plan Assessment: 1. Right above-knee amputation abscess 2. Right chronic groin wound 3. Peripheral arterial disease 4. Diarrhea 5. History of right niemp-hve-urer amputation 6. Coronary artery disease with history of coronary stenting 7. Chronic DVT and PEs 8. Morbid obesity 9. Diabetic neuropathy Plan: 1. Dressing change every other day to right amputation wound with iodoform 2. Local wound care with Dressing change on right groin with opticell silver 3. Continue IV antibiotics per recommendations from infectious disease Thank you for this consultation. The impression and plan of care has been dictated as directed. I performed a history and examination of this patient, discussed the same with the dictator. I agree with the dictator's note ,documented as a scribe. Any additional findings or plans will be noted.
[2023-08-13 12:30] LABS: Glucose,Whole Blood 281 mg/dL (70-110)
--- NOTE | 2023-08-13 14:22 | P.PN ---
Subjective Progress Note Date: 08/13/23 Principal diagnosis: Reason for follow-up is diarrhea and right AKA stump wound Patient is a 63-year-old female with a past medical history significant for coronary artery disease diabetes mellitus DVT in this patient who did have a right bkflj-kea-sbdb amputation for chronic nonhealing wound to the right heel area with multiple surgeries patient also have a chronic nonhealing wound to the right groin patient currently at [facility] undergoing rehabilitation therapy patient has developed significant diarrhea with multiple loose stools and weakness and the patient also noted to have some purulent drainage from the right AKA stump for the patient was sent to the ER. Patient did have a evaluation by vascular surgery and drainage of the right AKA stump abscess on 08/10/2023 On today's evaluation that is 08/13/2023, The patient denies any fever or any chills, the patient is breathing comfortably on room air, patient denies having any chest pain or shortness of breath or cough, the patient mention feeling not that good today has some nausea but no vomiting and no worsening diarrhea, the patient has severely worsening pain to the right AKA stump or any worsening drainage Patient did have white count of 7.76, creatinine 0.8 as of 08/12/2023, stool C. difficile not done, stool culture negative blood culture negative local culture finalized with MRSA Objective - Vital Signs Vital signs: Vital Signs Temp 97.9 F 08/13/23 07:40 Pulse 87 08/13/23 07:40 Resp 16 08/13/23 07:40 BP 118/75 08/13/23 07:40 Pulse Ox 98 08/13/23 07:40 FiO2 Intake & Output 08/12/23 08/13/23 08/13/23 18:59 06:59 18:59 Intake Total 858 260 Output Total 625 1400 Balance 233 -1400 260 Intake: Oral 858 260 Output: Urine 625 1400 Other: Voiding Method External Catheter External Catheter External Catheter # Bowel Movements 2 1 - Exam GENERAL DESCRIPTION: Middle-age female lying in bed in no distress RESPIRATORY SYSTEM: Unlabored breathing , decreased breath sounds at bases HEART: S1 S2 regular rate and rhythm , ABDOMEN: Soft , no tenderness EXTREMITIES: Right AKA stump is currently dressed - Labs CBC & Chem 7: 08/12/23 06:06 08/12/23 06:06 Labs: Abnormal Lab Results - Last 24 Hours (Table) 08/12/23 08/12/23 08/13/23 Range/Units 17:02 20:33 12:29 POC Glucose (mg/dL) 222 H 205 H 281 H (70-110) mg/dL Microbiology - Last 24 Hours (Table) 08/10/23 05:06 Blood Culture - Preliminary Blood 08/09/23 15:30 Blood Culture - Preliminary Blood 08/09/23 15:45 Blood Culture - Preliminary Blood 08/09/23 12:57 Stool Culture - Final Stool Assessment and Plan (1) MRSA (methicillin resistant staph aureus) culture positive Current Visit: Yes Status: Acute Code(s): Z22.322 - CARRIER OR SUSPECTED CARRIER OF METHICILLIN RESIS STAPH SNOMED Code(s): 632920566 (2) Cellulitis of right leg Current Visit: Yes Status: Acute Code(s): L03.115 - CELLULITIS OF RIGHT LOWER LIMB SNOMED Code(s): 02279825511831144 (3) Diarrhea Current Visit: Yes Status: Acute Code(s): R19.7 - DIARRHEA, UNSPECIFIED SNOMED Code(s): 04992516 (4) Wound infection after surgery Current Visit: Yes Status: Acute Code(s): T81.49XA - INFECTION FOLLOWING A PROCEDURE, OTHER SURGICAL SITE, INIT SNOMED Code(s): 87228918 Plan: 1patient presented to hospital with significant diarrhea and this patient has been out of the hospital and has been exposed to multiple antibiotics with concern for possible infectious diarrhea such as C. difficile colitis, stool for C. difficile was not sent stool culture negative patient to continue with the Questran for symptomatic relief 2-patient also noticed to have a drainage from the right AKA stump concerning for stump infection and cellulitis and did have a small abscess drained by vascular surgery at the bedside cultures are now growing MRSA we will go ahead and discontinue cefepime patient to have vancomycin allergy we will start the patient on daptomycin concerning for possible deep infection will need a PICC line for outpatient IV antibiotics. Son at the bedside questions were answered Dictation was produced using [employer] software. please excuse any grammatical, word or spelling errors. Time with Patient: Less than 30
[2023-08-13] MEDS: DAPTOmycin 500 MG in SODIUM CHLORIDE 0.9% 50 ML IVPB SCH (14:44)
--- NOTE | 2023-08-13 15:30 | P.PN ---
Subjective Progress Note Date: 08/13/23 HISTORY OF PRESENT ILLNESS This is a 63-year-old female patient of mine with history of CAD with multiple cardiac stents in mid RCA, mid LAD, obtuse marginal branch and followed by Dr. Bill closely, peripheral artery disease with previous stenting done as well has amputation of the right great toe secondary to osteomyelitis, CVA with no residual deficits, hypertension, COPD, diabetes mellitus type 2, previous multiple DVT and PE requiring chronic anticoagulation on eliquis, history of GI bleed secondary to antral gastritis, esophagitis, vitamin D deficiency, autono margot hypotension on midodrine, history of left humerus fracture. resume with patient April 02 through April 15 at which time she presented to the hospital due to right second and fifth toe ischemic change. A CT angiogram showed evidence of occlusion of the right superficial femoral artery and 2 occluded segments 1 in the mid thigh about 3 cm and another into the right popliteal artery at 13 cm length, occlusion of the right iliac artery into the common femoral artery. Patient was seen in consultation by vascular surgery. Arterial ultrasound showed lower extremity abnormal on the right with HERMINIA suggests severe atherosclerotic disease. Critical stenosis not excluded. Plan for open bypass surgery with vascular surgery was made but a cardiology consult was requested. Patient was seen by Dr. Bill and had chest pain complaint and Due to critical in-stent restenosis and subsequently underwent cardiac catheterization which revealed critical in-stent restenosis of the RCA and Dr. Bill present performed stenting of the RCA. There was also intermediate disease in the first obtuse marginal branch of the left circumflex, intermediate disease involving the LAD and mildly elevated left sided filling pressures after that patient developed to have significant hematoma require blood for sedation and ICU management, and after that underwent incision and drainage of the hematoma, and she also underwent the bright bed of the Achilles wound after she has had a graft that did not last much patient was treated with IV antibiotic and eventually the decision was made to go for a right hbsuv-vwm-ffpg amputation as a definitive treatment for her peripheral vascular disease patient had that and she was sent to [facility] for physical therapy rehabilitation, while she was at [facility] she developed increased diarrhea with significant drop in her potassium and Magnesium and she was was last seen by vascular surgery before Shelley 2 weeks ago and she had a small wound for which she did receive local care and today I did receive a call from Nursing staff at [facility] that the patient is having severe diarrhea with increased purulent drainage from the right stump wound , so she was sent to the Er for evaluation and she was found to have infected wound was started on IV ABX with Cefepime and wound cultures and blood cultures were done , consulted ID and vascular surgery 08/10: Patient sitting up in bed in no apparent distress, she denies any chest pain, shortness breath, she did not have any diarrhea since 2:00 in the morning, she is eating her food, her magnesium level is 1.5, she will receive 2 g of magnesium sulfate IV piggyback 1 continue oral magnesium at this time, resume the patient's Farxiga 10 mg once every day, start the patient on Levemir 15 units at bedtime, along with a sliding scale insulin. Her sugar has been high. 08/11: Patient is laying down in bed in no apparent distress, she has no fever or chills at this time, she was seen yesterday by vascular surgery she did have cleansing of the wound at the bedside that express more pus, recommended silver dressing on a daily basis, denies any antibiotic at this point in time in the form of cefepime, infectious disease is following, blood glucose level appears to be a bit better today, continue patient on the current treatment plan, continue diabetic diet, Gram stain of the cultures showed gram positive cocci, and blood cultures are negative after 24 hours. 08/12: Patient has been followed by ID and vascular surgery. Erythema and drainage to the stump is improving. Wound care is iodoform with change every other day. Patient is continued on Cefepime. BP 99/65 - 126/77. HR 70-80s. No leukocytosis. Wound culture is MRSA. Blood culture no growth x3. Capillary blood glucose running between 137 and 171. 08/13: ID has changed antibiotics to daptomycin. Patient is complaining of abdominal pain and vomiting became hot and cold this morning when she was working with physical therapy. Farxiga discontinued. Blood pressure 120/77, heart rate 81, afebrile, pulse ox 99% on room air. Blood sugars have been running between 100- 181. REVIEW OF SYSTEMS Constitutional: positive for fever, No chills, no night sweats. Reports weight loss. Reports weakness, Reports fatigue no lethargy. NO daytime sleepiness. HEENT: No headache. positive for dizziness. No nasal drainage or congestion. No epistaxis. No sore throat. Lungs: No shortness of breath, no cough, no sputum production. No wheezing. Cardiovascular: No chest pain, no lower extremity edema. No palpitations. No paroxysmal nocturnal dyspnea. No orthopnea. No lightheadedness or dizziness. No syncopal episodes. Abdominal: Reports abdominal pain. Reports nausea, no vomiting. positive for diarrhea. No constipation. No bloody or tarry stools. good appetite. Genitourinary: No dysuria, increased frequency, urgency. No urinary retention. Musculoskeletal: No myalgias. positive for muscle weakness, reports balance issues. Integumentary: Right AKA with minimal erythema to the side with minimal draina ge Neurologic: No aphasia. No facial droop. No change in mentation. No head injury. No headache. No paralysis. No paresthesia. Psychiatric: Reports depression. Reports anxiety. No mood swings. Endocrine: abnormal blood sugars. positive for weight change. No excessive sweating or thirst. No cold intolerance. PHYSICAL EXAMINATION Gen: This is a 63-year-old female. She is resting on ER bed and does not appear to be in no acute distress. HEENT: Head is atraumatic, normocephalic. Pupils equal, round. Sclerae is anicteric. Mucous members of the mouth are somewhat dry. NECK: Supple. No JVD. No lymphadenopathy. No thyromegaly. LUNGS: Clear to auscultation. No wheezes or rhonchi. No intercostal retractions. 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 ABDOMEN: Soft, mild tenderness in the epigastric area and no rebound or guarding positive bowel sounds EXTREMITIES: Right above-knee amputation with small wound to the side minimal drainage NEUROLOGICAL: Patient is awake, alert and oriented x3. Cranial nerves 2 through 12 are grossly intact muscle power were 4 out of 5 in upper extremity is, and 3 out of 5 in the left lower extremity. She does have a right above-knee amputation. ASSESSMENT AND PLAN 1. Infected right stump wound with MRSA. Continue patient on daptomycin, blood cultures so far showed negative result, continue local care, continue IV a ntibiotic, ID and vascular surgery are following 2. Status post right venys-dyu-wmch amputation. Continue with local care and IV antibiotic 3. Coronary artery disease with recent stent of the RCA due to recent in-stent restenosis. Patient has had previous multiple cardiac stents to the RCA and mid LAD, obtuse marginal branch. Continue patient on Plavix 75 mg daily, Lopressor 25 mg twice daily, Atorvastatin 40 mg po daily . 4. Diabetes mellitus type 2 uncontrolled with hypoglycemia. we will continue with Humalog 4 units AC meals tid , we will add Levemir 8 units sc qhs and Farxiga 10 mg po daily 5. Hyperlipidemia. Continue Atorvastatin 40 mg po daily 6. Chronic DVT and PEs. Continue patient on eliquis 5 mg twice daily. 7. Orthostatic hypotension continue patient on Midodrin 5 mg po tid 8. Hypertension and hypertensive cardiovascular disease. Continue metoprolol 25 mg orally twice every day. 9. Gastroesophageal reflux disease and GI prophylaxis. Continue Pantoprazole 40 mg daily. 10. Diabetic neuropathy. we will continue wit Gabapentin 400 mg po tid. 11. Generalized anxiety disorder, recurrent depression. Continue Cymbalta 60 mg po bid 13. DVT prophylaxis. Continue Eliquis 5 mg po bid 14. GI prophylaxis. Continue patient on PPI. 15. physical therapy evaluation. 16. vamp cut out worker consultation for discharge planning. Impression and plan of care have been directed as dictated by the signing physician. Kerri Kevin nurse practitioner acting as scribe for signing physician. Objective - Vital Signs Vital signs: Vital Signs Temp 97.9 F 08/13/23 07:40 Pulse 87 08/13/23 07:40 Resp 16 08/13/23 07:40 BP 118/75 08/13/23 07:40 Pulse Ox 98 08/13/23 07:40 FiO2 Intake & Output 08/12/23 08/13/23 08/13/23 18:59 06:59 18:59 Intake Total 858 260 Output Total 625 1400 Balance 233 -1400 260 Intake: Oral 858 260 Output: Urine 625 1400 Other: Voiding Method External Catheter External Catheter External Catheter # Bowel Movements 2 1 - Labs CBC & Chem 7: 08/12/23 06:06 08/12/23 06:06 Labs: Abnormal Lab Results - Last 24 Hours (Table) 08/12/23 08/12/23 08/13/23 Range/Units 17:02 20:33 12:29 POC Glucose (mg/dL) 222 H 205 H 281 H (70-110) mg/dL Microbiology - Last 24 Hours (Table) 08/10/23 05:06 Blood Culture - Preliminary Blood 08/09/23 15:30 Blood Culture - Preliminary Blood 08/09/23 15:45 Blood Culture - Preliminary Blood 08/09/23 12:57 Stool Culture - Final Stool
[2023-08-13 17:07] LABS: Glucose,Whole Blood 229 mg/dL (70-110)
[2023-08-13 20:59] LABS: Glucose,Whole Blood 231 mg/dL (70-110)
[2023-08-13] MEDS: INSULIN DETEMIR (LEVEMIR) 100 UNIT/ML SYR SQ SCH (21:22)
[2023-08-14 06:25] LABS: Glucose,Whole Blood 130 mg/dL (70-110)
[2023-08-14] MEDS: INSULIN ASPART (NovoLOG) 100 UNIT/ML VIAL SQ SCH ×3 (06:39→18:16)
[2023-08-14] MEDS: POTASSIUM CHLORIDE ER 20 MEQ TAB.ER PO SCH (10:02)
[2023-08-14] MEDS: MIDODRINE 5 MG TAB PO SCH ×2 (10:02→17:35)
[2023-08-14] MEDS: GABAPENTIN 400 MG CAP PO SCH ×2 (10:02→21:50)
[2023-08-14] MEDS: FERROUS SULFATE 325 MG TAB PO SCH (10:02)
[2023-08-14] MEDS: PANTOPRAZOLE 40 MG TABLET PO SCH (10:02)
[2023-08-14] MEDS: DULoxetine HCL 60 MG CAPSULE.DR PO SCH ×2 (10:02→21:49)
[2023-08-14] MEDS: METOPROLOL TARTRATE 25 MG TAB PO SCH ×2 (10:03→17:35)
[2023-08-14] MEDS: HYDROcodone/APAP 7.5-325MG 1 EACH TAB PO SCH ×3 (10:03→21:49)
[2023-08-14] MEDS: SPIRONOLACTONE 25 MG TAB PO SCH (10:03)
[2023-08-14] MEDS: DAPTOmycin 500 MG in SODIUM CHLORIDE 0.9% 50 ML IVPB SCH (10:12)
[2023-08-14] MEDS: ALPRAZolam 0.25 MG TAB PO PRN (10:13)
[2023-08-14] MEDS: FLUTICASONE 50MCG/SPRAY NASAL 16GM EA NOSTRIL SCH ×2 (10:22→19:02)
[2023-08-14] MEDS: CHOLESTYRAMINE (WITH SUGAR) 4 GM PACKET PO SCH ×2 (10:22→19:02)
--- NOTE | 2023-08-14 11:31 | P.PN ---
Subjective Progress Note Date: 08/14/23 Principal diagnosis: Infected right oiipu-moa-poua amputation site She was seen and examined as a follow-up. Note changes through the night. She remains afebrile. Dressings changed yesterday. Does have some drainage from the right AKA wound. Final cultures are resulted with MRSA. Patient currently on IV daptomycin. Objective - Vital Signs Vital signs: Vital Signs Temp 97.9 F 08/14/23 08:00 Pulse 96 08/14/23 08:00 Resp 16 08/14/23 08:00 BP 119/79 08/14/23 08:00 Pulse Ox 100 08/14/23 08:00 FiO2 Intake & Output 08/13/23 08/14/23 08/14/23 18:59 06:59 18:59 Intake Total 482 240 Output Total 1000 1999 Balance -518 -1999 240 Intake: Oral 482 240 Output: Urine 1000 1999 Other: Voiding Method External Catheter External Catheter External Catheter # Bowel Movements 1 1 - Exam General appearance: The patient is alert, oriented, appears in no acute distress. HET: Head is normocephalic and atraumatic. Pupils are equal and reactive. Neck: Supple. Abdomen: Soft, nondistended. Extremities: Right groin with dressing in place. Right medial aspect of zlaop-qkc-vpir amputation stump with dressing. Neurological: No focal deficits. - Labs CBC & Chem 7: 08/12/23 06:06 08/12/23 06:06 Labs: Abnormal Lab Results - Last 24 Hours (Table) 08/13/23 08/13/23 08/13/23 Range/Units 12:29 17:06 20:58 POC Glucose (mg/dL) 281 H 229 H 231 H (70-110) mg/dL 08/14/23 Range/Units 06:24 POC Glucose (mg/dL) 130 H (70-110) mg/dL Microbiology - Last 24 Hours (Table) 08/10/23 05:06 Blood Culture - Preliminary Blood 08/09/23 15:30 Blood Culture - Preliminary Blood Assessment and Plan Assessment: 1. Right above-knee amputation abscess 2. Right chronic groin wound 3. Peripheral arterial disease 4. Diarrhea 5. History of right jyfye-tdu-kwdl amputation 6. Coronary artery disease with history of coronary stenting 7. Chronic DVT and PEs 8. Morbid obesity 9. Diabetic neuropathy Plan: 1. Dressing change every other day to right amputation wound with iodoform 2. Local wound care with Dressing change on right groin with opticell silver 3. Continue IV antibiotics per recommendations from infectious disease. Await recommendations from infectious disease and PICC line as needed. If so will place tomorrow. 4. Hold Eliquis for possible PICC line placement 5. Patient will follow-up with wound care clinic Thank you for this consultation. Patient is cleared from a vascular surgical standpoint. The impression and plan of care has been dictated as directed. I performed a history and examination of this patient, discussed the same with the dictator. I agree with the dictator's note ,documented as a scribe. Any additional findings or plans will be noted.
[2023-08-14 12:26] LABS: Glucose,Whole Blood 318 mg/dL (70-110)
[2023-08-14] MEDS: CLOPIDOGREL 75 MG TAB PO SCH (13:54)
[2023-08-14] MEDS: MAGNESIUM OXIDE 400 MG TAB PO SCH (13:54)
[2023-08-14 17:28] LABS: Glucose,Whole Blood 253 mg/dL (70-110)
--- NOTE | 2023-08-14 17:46 | P.PN ---
Subjective Progress Note Date: 08/14/23 Principal diagnosis: Reason for follow-up is diarrhea and right AKA stump wound Patient is a 63-year-old female with a past medical history significant for coronary artery disease diabetes mellitus DVT in this patient who did have a right ddfrd-znk-syax amputation for chronic nonhealing wound to the right heel area with multiple surgeries patient also have a chronic nonhealing wound to the right groin patient currently at [facility] undergoing rehabilitation therapy patient has developed significant diarrhea with multiple loose stools and weakness and the patient also noted to have some purulent drainage from the right AKA stump for the patient was sent to the ER. Patient did have a evaluation by vascular surgery and drainage of the right AKA stump abscess on 08/10/2023 On today's evaluation that is 08/14/2023, The patient remains to be afebrile, the patient is breathing comfortably on room air, patient denies having any chest pain or shortness of breath or cough, the patient complaining of some nausea but no vomiting occasional diarrhea no abdominal pain and denies any worsening pain to the right AKA stump Patient did have white count of 7.76, creatinine 0.8 as of 08/12/2023, no new labs obtained today, stool culture negative blood culture negative local culture finalized with MRSA Objective - Vital Signs Vital signs: Vital Signs Temp 97.9 F 08/14/23 08:00 Pulse 96 08/14/23 08:00 Resp 16 08/14/23 08:00 BP 119/79 08/14/23 08:00 Pulse Ox 100 08/14/23 08:00 FiO2 Intake & Output 08/13/23 08/14/23 08/14/23 18:59 06:59 18:59 Intake Total 482 240 Output Total 1000 1999 Balance -518 -1999 240 Intake: Oral 482 240 Output: Urine 1000 1999 Other: Voiding Method External Catheter External Catheter External Catheter # Bowel Movements 1 1 - Exam GENERAL DESCRIPTION: Middle-age female lying in bed in no distress RESPIRATORY SYSTEM: Unlabored breathing , decreased breath sounds at bases HEART: S1 S2 regular rate and rhythm , ABDOMEN: Soft , no tenderness EXTREMITIES: Right AKA stump is currently dressed - Labs CBC & Chem 7: 08/12/23 06:06 08/12/23 06:06 Labs: Abnormal Lab Results - Last 24 Hours (Table) 08/13/23 08/13/23 08/14/23 Range/Units 17:06 20:58 06:24 POC Glucose (mg/dL) 229 H 231 H 130 H (70-110) mg/dL 08/14/23 Range/Units 12:24 POC Glucose (mg/dL) 318 H (70-110) mg/dL Microbiology - Last 24 Hours (Table) 08/10/23 05:06 Blood Culture - Preliminary Blood 08/09/23 15:30 Blood Culture - Preliminary Blood Assessment and Plan (1) MRSA (methicillin resistant staph aureus) culture positive Current Visit: Yes Status: Acute Code(s): Z22.322 - CARRIER OR SUSPECTED CARRIER OF METHICILLIN RESIS STAPH SNOMED Code(s): 067898264 (2) Cellulitis of right leg Current Visit: Yes Status: Acute Code(s): L03.115 - CELLULITIS OF RIGHT LOWER LIMB SNOMED Code(s): 56389794804838209 (3) Diarrhea Current Visit: Yes Status: Acute Code(s): R19.7 - DIARRHEA, UNSPECIFIED SNOMED Code(s): 18002835 (4) Wound infection after surgery Current Visit: Yes Status: Acute Code(s): T81.49XA - INFECTION FOLLOWING A PROCEDURE, OTHER SURGICAL SITE, INIT SNOMED Code(s): 62406833 Plan: 1patient presented to hospital with significant diarrhea and this patient has been out of the hospital and has been exposed to multiple antibiotics with concern for possible infectious diarrhea such as C. difficile colitis, stool for C. difficile was not sent stool culture negative patient to continue with the Questran for symptomatic relief 2-patient also noticed to have a drainage from the right AKA stump concerning for stump infection and cellulitis and did have a small abscess drained by vascular surgery at the bedside cultures are now growing MRSA 3we will get a PICC line for outpatient IV daptomycin 4 to 6-week course depending upon her clinical response Dictation was produced using [employer] dictation software. please excuse any grammatical, word or spelling errors. Time with Patient: Less than 30
[2023-08-14 20:23] LABS: Glucose,Whole Blood 246 mg/dL (70-110)
[2023-08-14] MEDS: INSULIN DETEMIR (LEVEMIR) 100 UNIT/ML SYR SQ SCH (21:50)
[2023-08-15 06:02] LABS: Glucose,Whole Blood 149 mg/dL (70-110)
[2023-08-15] MEDS: INSULIN ASPART (NovoLOG) 100 UNIT/ML VIAL SQ SCH ×3 (06:24→18:39)
[2023-08-15] MEDS: METOPROLOL TARTRATE 25 MG TAB PO SCH ×2 (08:55→16:33)
[2023-08-15] MEDS: PANTOPRAZOLE 40 MG TABLET PO SCH (08:55)
[2023-08-15] MEDS: SPIRONOLACTONE 25 MG TAB PO SCH (08:55)
[2023-08-15] MEDS: DULoxetine HCL 60 MG CAPSULE.DR PO SCH ×2 (08:55→22:09)
[2023-08-15] MEDS: CHOLESTYRAMINE (WITH SUGAR) 4 GM PACKET PO SCH ×2 (08:56→18:39)
[2023-08-15] MEDS: DAPTOmycin 500 MG in SODIUM CHLORIDE 0.9% 50 ML IVPB SCH (08:57)
[2023-08-15] MEDS: HYDROcodone/APAP 7.5-325MG 1 EACH TAB PO SCH ×3 (08:58→22:10)
[2023-08-15] MEDS: GABAPENTIN 400 MG CAP PO SCH ×2 (08:58→22:09)
[2023-08-15] MEDS: POTASSIUM CHLORIDE ER 20 MEQ TAB.ER PO SCH (08:58)
[2023-08-15] MEDS: FERROUS SULFATE 325 MG TAB PO SCH (09:04)
[2023-08-15] MEDS: MIDODRINE 5 MG TAB PO SCH ×2 (09:05→16:33)
[2023-08-15] MEDS: FLUTICASONE 50MCG/SPRAY NASAL 16GM EA NOSTRIL SCH ×2 (09:09→16:45)
[2023-08-15 09:23] LABS: Basophils # (A) 0.09 X 10*3/uL (0.00-0.10); Basophils % (A) 1.1 %; Eosinophils # (A) 0.27 X 10*3/uL (0.04-0.35); Eosinophils % (A) 3.4 %; HCT 39.1 % (37.2-46.3); HGB 11.8 g/dL (12.0-15.0); Lymphocytes # (A) 2.54 X 10*3/uL (0.90-5.00); Lymphocytes % (A) 32.3 %; MCH 26.9 pg (27.0-32.0); MCHC 30.2 g/dL (32.0-37.0); MCV 89.3 FL (80.0-97.0); Mean Platelet Volume 11.3 FL (9.5-12.2); Monocytes % (A) 6.4 %; NRBC Per 100 WBC 0 X 10*3/uL (0.00-0.01); Neutrophils # (A) 4.42 X 10*3/uL (1.80-7.70); Neutrophils % (A) 56.3 %; Platelet Count 259 X 10*3/uL (140-440); RBC 4.38 X 10*6/uL (4.10-5.20); RDW 20.9 % (11.5-14.5); WBC 7.86 X 10*3/uL (4.50-10.00)
[2023-08-15] MEDS ORDERED: LIDOCAINE 1% INJ 10MG/ML (5 ML VIAL-PF) SQ ONE (09:29)
--- NOTE | 2023-08-15 09:40 | P.OP ---
Date of Procedure: 08/15/23 Description of Procedure: Preoperative Diagnosis: Need for long-term IV antibiotic access. Postoperative Diagnosis: Same. Procedure(s) Performed: Ultrasound-guided cannulation [left basilic] vein. Insertion of peripherally inserted central catheter under fluoroscopic guidance. Anesthesia: local 1% lidocaine plain Surgeon: Reji Estimated Blood Loss (ml): 5 IV fluids (ml): 0 Urine output (ml): 0 Pathology: none sent Condition: stable Disposition: no change Indications for Procedure: Patient requires long-term IV antibiotics as an outpatient patient is offered a PICC line to allow for intravenous administration of antibiotics. Description of Procedure: Patient was brought to the special procedure suite. The [left] upper extremity sterilely prepped and draped in usual manner. Ultrasound was utilized to identify the [basilic] vein which was normally compressible free of visible thrombus. Permenant image was stored. 1% Xylocaine was utilized for local anesthesia tissues overlying the vein. Through this anesthetized area and with the aid of ultrasound a micropuncture needle was utilized to cannulate the vein. Once cannulated, Softip guidewire was advanced into the vein. The needle was withdrawn and a micropuncture sheath and dilator advanced over the guidewire. The guidewire was withdrawn and exchanged for the PICC guidewire and measured 42 cm to the cavoatrial junction. The catheter was cut to size and advanced into the cavoatrial junction without resistance. The sheath was peeled away. Blood was easily withdrawn through the catheter and the catheter was then flushed with heparinized saline solution and secured to the skin. Patient tolerated procedure well and was returned to their room in satisfactory and stable condition.
[2023-08-15 09:44] LABS: ALT 14 U/L (8-44); AST 22 U/L (13-35); Albumin 2.3 g/dL (3.8-4.9); Albumin/Globulin Ratio 0.74 Ratio (1.60-3.17); Alkaline Phosphatase 131 U/L (41-126); BUN/Creat Ratio 13.57 Ratio (12.00-20.00); Blood Urea Nitrogen 9.5 mg/dL (9.0-27.0); C Reactive Protein <0.30 mg/dL (0.00-0.80); Calcium 8.4 mg/dL (8.7-10.3); Carbon Dioxide 28.3 mmol/L (21.6-31.8); Chloride 101 mmol/L (96-109); Globulin 3.1 g/dL (1.6-3.3); Glucose 190 mg/dL (70-110); Potassium 3.5 mmol/L (3.5-5.5); Sodium 138 mmol/L (135-145); Total Bilirubin 0.4 mg/dL (0.3-1.2); Total Protein 5.4 g/dL (6.2-8.2)
[2023-08-15 09:46] LABS: Erythrocyte Sedimentation Rate 44 mm/Hr (0-30)
[2023-08-15] MEDS: MAGNESIUM OXIDE 400 MG TAB PO SCH (12:03)
[2023-08-15] MEDS: CLOPIDOGREL 75 MG TAB PO SCH (12:03)
--- NOTE | 2023-08-15 12:44 | P.PN ---
Subjective Progress Note Date: 08/15/23 Principal diagnosis: Infected right [id number] amputation site Patient at her PICC line this morning. No acute changes. She's been afebrile. Plan is to return to rehab. Objective - Vital Signs Vital signs: Vital Signs Temp 98.4 F 08/15/23 08:00 Pulse 63 08/15/23 08:00 Resp 18 08/15/23 08:00 BP 104/65 08/15/23 08:00 Pulse Ox 94 L 08/15/23 08:00 FiO2 Intake & Output 08/14/23 08/15/23 08/15/23 18:59 06:59 18:59 Intake Total 358 222 Output Total 1000 1000 1000 Balance -367 -1000 -368 Intake: Oral 358 222 Output: Urine 1000 1000 1000 Other: Voiding Method External Catheter External Catheter External Catheter - Exam General appearance: The patient is alert, oriented, appears in no acute distres s. HET: Head is normocephalic and atraumatic. Pupils are equal and reactive. Neck: Supple. Abdomen: Soft, nondistended. Extremities: Right groin with dressing in place. Right medial aspect of abov e-the-knee amputation stump with dressing. Neurological: No focal deficits. - Labs CBC & Chem 7: 08/15/23 04:58 08/15/23 04:52 Labs: Abnormal Lab Results - Last 24 Hours (Table) 08/14/23 08/14/23 08/15/23 Range/Units 17:19 20:21 04:52 Hgb (12.0-15.0) g/dL MCH (27.0-32.0) pg MCHC (32.0-37.0) g/dL RDW (11.5-14.5) % ESR (0-30) mm/Hr Glucose 190 H (70-110) mg/dL POC Glucose (mg/dL) 253 H 246 H (70-110) mg/dL Calcium 8.4 L (8.7-10.3) mg/dL Alkaline Phosphatase 131 H (41-126) U/L Total Protein 5.4 L (6.2-8.2) g/dL Albumin 2.3 L (3.8-4.9) g/dL Albumin/Globulin Ratio 0.74 L (1.60-3.17) Ratio 08/15/23 08/15/23 Range/Units 04:58 06:01 Hgb 11.8 L (12.0-15.0) g/dL MCH 26.9 L (27.0-32.0) pg MCHC 30.2 L (32.0-37.0) g/dL RDW 20.9 H (11.5-14.5) % ESR 44 H (0-30) mm/Hr Glucose (70-110) mg/dL POC Glucose (mg/dL) 149 H (70-110) mg/dL Calcium (8.7-10.3) mg/dL Alkaline Phosphatase (41-126) U/L Total Protein (6.2-8.2) g/dL Albumin (3.8-4.9) g/dL Albumin/Globulin Ratio (1.60-3.17) Ratio Microbiology - Last 24 Hours (Table) 08/09/23 15:45 Blood Culture - Final Blood Assessment and Plan Assessment: 1. Right above-knee amputation abscess 2. Right chronic groin wound 3. Peripheral arterial disease 4. Diarrhea 5. History of right twcmf-nsl-eycu amputation 6. Coronary artery disease with history of coronary stenting 7. Chronic DVT and PEs 8. Morbid obesity 9. Diabetic neuropathy Plan: 1. Dressing change every other day to right amputation wound with iodoform 2. Local wound care with Dressing change on right groin with opticell silver 3. Continue IV antibiotics per recommendations from infectious disease. PICC line placed 4. May resume Eliquis 5. Patient will follow-up with wound care clinic Thank you for this consultation. Patient is cleared from a vascular surgical standpoint. We will sign off at this time. The impression and plan of care has been dictated as directed. I performed a history and examination of this patient, discussed the same with the dictator. I agree with the dictator's note ,documented as a scribe. Any additional findings or plans will be noted.
[2023-08-15 12:52] LABS: Glucose,Whole Blood 138 mg/dL (70-110)
[2023-08-15 13:55] VITALS: BMI 28.1
--- NOTE | 2023-08-15 14:16 | P.PN ---
Subjective Progress Note Date: 08/14/23 HISTORY OF PRESENT ILLNESS This is a 63-year-old female patient of mine with history of CAD with multiple cardiac stents in mid RCA, mid LAD, obtuse marginal branch and followed by Dr. Bill closely, peripheral artery disease with previous stenting done as well has amputation of the right great toe secondary to osteomyelitis, CVA with no residual deficits, hypertension, COPD, diabetes mellitus type 2, previous multiple DVT and PE requiring chronic anticoagulation on eliquis, history of GI bleed secondary to antral gastritis, esophagitis, vitamin D deficiency, autono margot hypotension on midodrine, history of left humerus fracture. resume with patient April 02 through April 15 at which time she presented to the hospital due to right second and fifth toe ischemic change. A CT angiogram showed evidence of occlusion of the right superficial femoral artery and 2 occluded segments 1 in the mid thigh about 3 cm and another into the right popliteal artery at 13 cm length, occlusion of the right iliac artery into the common femoral artery. Patient was seen in consultation by vascular surgery. Arterial ultrasound showed lower extremity abnormal on the right with HERMINIA suggests severe atherosclerotic disease. Critical stenosis not excluded. Plan for open bypass surgery with vascular surgery was made but a cardiology consult was requested. Patient was seen by Dr. Bill and had chest pain complaint and Due to critical in-stent restenosis and subsequently underwent cardiac catheterization which revealed critical in-stent restenosis of the RCA and Dr. Bill present performed stenting of the RCA. There was also intermediate disease in the first obtuse marginal branch of the left circumflex, intermediate disease involving the LAD and mildly elevated left sided filling pressures after that patient developed to have significant hematoma require blood for sedation and ICU management, and after that underwent incision and drainage of the hematoma, and she also underwent the bright bed of the Achilles wound after she has had a graft that did not last much patient was treated with IV antibiotic and eventually the decision was made to go for a right [id number] amputation as a definitive treatment for her peripheral vascular disease patient had that and she was sent to [facility] for physical therapy rehabilitation, while she was at [facility] she developed increased diarrhea with significant drop in her potassium and Magnesium and she was was last seen by vascular surgery before [place] 2 weeks ago and she had a small wound for which she did receive local care and today I did receive a call from Nursing staff at [facility] that the patient is having severe diarrhea with increased purulent drainage from the right stump wound , so she was sent to the Er for evaluation and she was found to have infected wound was started on IV ABX with Cefepime and wound cultures and blood cultures were done , consulted ID and vascular surgery 08/10: Patient sitting up in bed in no apparent distress, she denies any chest pain, shortness breath, she did not have any diarrhea since 2:00 in the morning, she is eating her food, her magnesium level is 1.5, she will receive 2 g of magnesium sulfate IV piggyback 1 continue oral magnesium at this time, resume the patient's Farxiga 10 mg once every day, start the patient on Levemir 15 units at bedtime, along with a sliding scale insulin. Her sugar has been high. 08/11: Patient is laying down in bed in no apparent distress, she has no fever or chills at this time, she was seen yesterday by vascular surgery she did have cleansing of the wound at the bedside that express more pus, recommended silver dressing on a daily basis, denies any antibiotic at this point in time in the form of cefepime, infectious disease is following, blood glucose level appears to be a bit better today, continue patient on the current treatment plan, continue diabetic diet, Gram stain of the cultures showed gram positive cocci, and blood cultures are negative after 24 hours. 08/12: Patient has been followed by ID and vascular surgery. Erythema and drainage to the stump is improving. Wound care is iodoform with change every other day. Patient is continued on Cefepime. BP 99/65 - 126/77. HR 70-80s. No leukocytosis. Wound culture is MRSA. Blood culture no growth x3. Capillary blood glucose running between 137 and 171. 08/13: ID has changed antibiotics to daptomycin. Patient is complaining of abdominal pain and vomiting became hot and cold this morning when she was working with physical therapy. Farxiga discontinued. Blood pressure 120/77, heart rate 81, afebrile, pulse ox 99% on room air. Blood sugars have been running between 100- 181. 08/14: Patient's vital signs have been stable. Wound to the right stump continues to show improvement. ID is following for antibiotics changed to daptomycin with plan for 4-6 week course and patient will need a PICC line which has been ordered for tomorrow as patient is on [place] which is placed on hold by vascular surgery. REVIEW OF SYSTEMS Constitutional: positive for fever, No chills, no night sweats. Reports weight loss. Reports weakness, Reports fatigue no lethargy. NO daytime sleepiness. HEENT: No headache. positive for dizziness. No nasal drainage or congestion. No epistaxis. No sore throat. Lungs: No shortness of breath, no cough, no sputum production. No wheezing. Cardiovascular: No chest pain, no lower extremity edema. No palpitations. No paroxysmal nocturnal dyspnea. No orthopnea. No lightheadedness or dizziness. No syncopal episodes. Abdominal: Reports abdominal pain. Reports nausea, no vomiting. positive for diarrhea. No constipation. No bloody or tarry stools. good appetite. Genitourinary: No dysuria, increased frequency, urgency. No urinary retention. Musculoskeletal: No myalgias. positive for muscle weakness, reports balance issues. Integumentary: Right AKA with minimal erythema to the side with minimal drainage Neurologic: No aphasia. No facial droop. No change in mentation. No head injury. No headache. No paralysis. No paresthesia. Psychiatric: Reports depression. Reports anxiety. No mood swings. Endocrine: abnormal blood sugars. positive for weight change. No excessive sweating or thirst. No cold intolerance. PHYSICAL EXAMINATION Gen: This is a 63-year-old female. She is resting on ER bed and does not appear to be in no acute distress. HEENT: Head is atraumatic, normocephalic. Pupils equal, round. Sclerae is anicteric. Mucous members of the mouth are somewhat dry. NECK: Supple. No JVD. No lymphadenopathy. No thyromegaly. LUNGS: Clear to auscultation. No wheezes or rhonchi. No intercostal retractions. 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 ABDOMEN: Soft, mild tenderness in the epigastric area and no rebound or guarding positive bowel sounds EXTREMITIES: Right above-knee amputation with small wound to the side minimal drainage NEUROLOGICAL: Patient is awake, alert and oriented x3. Cranial nerves 2 through 12 are grossly intact muscle power were 4 out of 5 in upper extremity is, and 3 out of 5 in the left lower extremity. She does have a right above-knee amputation. ASSESSMENT AND PLAN 1. Infected right stump wound with MRSA. Continue patient on daptomycin, blood cultures so far showed negative result, continue local care, continue IV antibiotic, ID and vascular surgery are following 2. Status post right [id number] amputation. Continue with local care and IV antibiotic, PICC line ordered, daptomycin 3. Coronary artery disease with recent stent of the RCA due to recent in-stent restenosis. Patient has had previous multiple cardiac stents to the RCA and mid LAD, obtuse marginal branch. Continue patient on Plavix 75 mg daily, Lopressor 25 mg twice daily, Atorvastatin 40 mg po daily . 4. Diabetes mellitus type 2 uncontrolled with hypoglycemia. we will continue with Humalog 4 units AC meals tid , we will add Levemir 8 units sc qhs and Farxiga 10 mg po daily 5. Hyperlipidemia. Continue Atorvastatin 40 mg po daily 6. Chronic DVT and PEs. Continue patient on eliquis 5 mg twice daily. 7. Orthostatic hypotension continue patient on Midodrin 5 mg po tid 8. Hypertension and hypertensive cardiovascular disease. Continue metoprolol 25 mg orally twice every day. 9. Gastroesophageal reflux disease and GI prophylaxis. Continue Pantoprazole 40 mg daily. 10. Diabetic neuropathy. we will continue wit Gabapentin 400 mg po tid. 11. Generalized anxiety disorder, recurrent depression. Continue Cymbalta 60 mg po bid 13. DVT prophylaxis. Continue Eliquis 5 mg po bid 14. GI prophylaxis. Continue patient on PPI. 15. physical therapy evaluation. 16. 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 Objective - Vital Signs Vital signs: Vital Signs Temp 98.0 F 08/14/23 14:00 Pulse 87 08/14/23 14:00 Resp 18 08/14/23 14:00 BP 103/69 08/14/23 14:00 Pulse Ox 97 08/14/23 14:00 FiO2 Intake & Output 08/14/23 08/14/23 08/15/23 06:59 18:59 06:59 Intake Total 358 Output Total 1999 999 Balance -1999 Intake: Oral 358 Output: Urine 1999 999 Other: Voiding Method External Catheter External Catheter # Bowel Movements 1 - Labs CBC & Chem 7: 08/15/23 04:58 08/15/23 04:52 Labs: Abnormal Lab Results - Last 24 Hours (Table) 08/13/23 08/14/23 08/14/23 Range/Units 20:58 06:24 12:24 POC Glucose (mg/dL) 231 H 130 H 318 H (70-110) mg/dL 08/14/23 Range/Units 17:19 POC Glucose (mg/dL) 253 H (70-110) mg/dL
--- NOTE | 2023-08-15 16:08 | P.PN ---
Subjective Progress Note Date: 08/15/23 HISTORY OF PRESENT ILLNESS This is a 63-year-old female patient of mine with history of CAD with multiple cardiac stents in mid RCA, mid LAD, obtuse marginal branch and followed by Dr. Bill closely, peripheral artery disease with previous stenting done as well has amputation of the right great toe secondary to osteomyelitis, CVA with no residual deficits, hypertension, COPD, diabetes mellitus type 2, previous multiple DVT and PE requiring chronic anticoagulation on eliquis, history of GI bleed secondary to antral gastritis, esophagitis, vitamin D deficiency, autono margot hypotension on midodrine, history of left humerus fracture. resume with patient April 02 through April 15 at which time she presented to the hospital due to right second and fifth toe ischemic change. A CT angiogram showed evidence of occlusion of the right superficial femoral artery and 2 occluded segments 1 in the mid thigh about 3 cm and another into the right popliteal artery at 13 cm length, occlusion of the right iliac artery into the common femoral artery. Patient was seen in consultation by vascular surgery. Arterial ultrasound showed lower extremity abnormal on the right with HERMINIA suggests severe atherosclerotic disease. Critical stenosis not excluded. Plan for open bypass surgery with vascular surgery was made but a cardiology consult was requested. Patient was seen by Dr. Bill and had chest pain complaint and Due to critical in-stent restenosis and subsequently underwent cardiac catheterization which revealed critical in-stent restenosis of the RCA and Dr. Bill present performed stenting of the RCA. There was also intermediate disease in the first obtuse marginal branch of the left circumflex, intermediate disease involving the LAD and mildly elevated left sided filling pressures after that patient developed to have significant hematoma require blood for sedation and ICU management, and after that underwent incision and drainage of the hematoma, and she also underwent the bright bed of the Achilles wound after she has had a graft that did not last much patient was treated with IV antibiotic and eventually the decision was made to go for a right yhkge-bpu-ozci amputation as a definitive treatment for her peripheral vascular disease patient had that and she was sent to [facility] for physical therapy rehabilitation, while she was at [facility] she developed increased diarrhea with significant drop in her potassium and Magnesium and she was was last seen by vascular surgery before [place] 2 weeks ago and she had a small wound for which she did receive local care and today I did receive a call from Nursing staff at [facility] that the patient is having severe diarrhea with increased purulent drainage from the right stump wound , so she was sent to the Er for evaluation and she was found to have infected wound was started on IV ABX with Cefepime and wound cultures and blood cultures were done , consulted ID and vascular surgery 08/10: Patient sitting up in bed in no apparent distress, she denies any chest pain, shortness breath, she did not have any diarrhea since 2:00 in the morning, she is eating her food, her magnesium level is 1.5, she will receive 2 g of magnesium sulfate IV piggyback 1 continue oral magnesium at this time, resume the patient's Farxiga 10 mg once every day, start the patient on Levemir 15 units at bedtime, along with a sliding scale insulin. Her sugar has been high. 08/11: Patient is laying down in bed in no apparent distress, she has no fever or chills at this time, she was seen yesterday by vascular surgery she did have cleansing of the wound at the bedside that express more pus, recommended silver dressing on a daily basis, denies any antibiotic at this point in time in the form of cefepime, infectious disease is following, blood glucose level appears to be a bit better today, continue patient on the current treatment plan, continue diabetic diet, Gram stain of the cultures showed gram positive cocci, and blood cultures are negative after 24 hours. 08/12: Patient has been followed by ID and vascular surgery. Erythema and drainage to the stump is improving. Wound care is iodoform with change every other day. Patient is continued on Cefepime. BP 99/65 - 126/77. HR 70-80s. No leukocytosis. Wound culture is MRSA. Blood culture no growth x3. Capillary blood glucose running between 137 and 171. 08/13: ID has changed antibiotics to daptomycin. Patient is complaining of abdominal pain and vomiting became hot and cold this morning when she was working with physical therapy. Farxiga discontinued. Blood pressure 120/77, heart rate 81, afebrile, pulse ox 99% on room air. Blood sugars have been running between 100- 181. 08/14: Patient's vital signs have been stable. Wound to the right stump continues to show improvement. ID is following for antibiotics changed to daptomycin with plan for 4-6 week course and patient will need a PICC line which has been ordered for tomorrow as patient is on [place] which is placed on hold by vascular surgery. 08/15: Patient had PICC line placed today. Dr. Sheppard is planning on IV antibiotics with daptomycin for 4 to 6 weeks. Patient has been accepted at [facility] and insurance authorization has been obtained. Diarrhea seems to have been resolved. No abdominal pain today. Blood pressure 98/60, heart rate in the 60s to 80s, she has been afebrile, pulse ox 97% on room air. Blood sugars are improved today running 138-190. Plan will be for discharge to [facility] tomorrow. REVIEW OF SYSTEMS Constitutional: positive for fever, No chills, no night sweats. Reports weight loss. Reports weakness, Reports fatigue no lethargy. NO daytime sleepiness. HEENT: No headache. positive for dizziness. No nasal drainage or congestion. No epistaxis. No sore throat. Lungs: No shortness of breath, no cough, no sputum production. No wheezing. Cardiovascular: No chest pain, no lower extremity edema. No palpitations. No paroxysmal nocturnal dyspnea. No orthopnea. No lightheadedness or dizziness. No syncopal episodes. Abdominal: Reports abdominal pain. Reports nausea, no vomiting. positive for diarrhea. No constipation. No bloody or tarry stools. good appetite. Genitourinary: No dysuria, increased frequency, urgency. No urinary retention. Musculoskeletal: No myalgias. positive for muscle weakness, reports balance issues. Integumentary: Right AKA with minimal erythema to the side with minimal draina ge Neurologic: No aphasia. No facial droop. No change in mentation. No head injury. No headache. No paralysis. No paresthesia. Psychiatric: Reports depression. Reports anxiety. No mood swings. Endocrine: abnormal blood sugars. positive for weight change. No excessive sweating or thirst. No cold intolerance. PHYSICAL EXAMINATION Gen: This is a 63-year-old female. She is resting on ER bed and does not appear to be in no acute distress. HEENT: Head is atraumatic, normocephalic. Pupils equal, round. Sclerae is anicteric. Mucous members of the mouth are somewhat dry. NECK: Supple. No JVD. No lymphadenopathy. No thyromegaly. LUNGS: Clear to auscultation. No wheezes or rhonchi. No intercostal retractions. 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 ABDOMEN: Soft, mild tenderness in the epigastric area and no rebound or guarding positive bowel sounds EXTREMITIES: Right above-knee amputation with small wound to the side minimal drainage NEUROLOGICAL: Patient is awake, alert and oriented x3. Cranial nerves 2 through 12 are grossly intact muscle power were 4 out of 5 in upper extremity is, and 3 out of 5 in the left lower extremity. She does have a right above-knee amputation. ASSESSMENT AND PLAN 1. Infected right stump wound with MRSA. Continue patient on daptomycin, blood cultures so far showed negative result, continue local care, continue IV a ntibiotic, ID and vascular surgery are following. 2. Status post right spcvk-uwj-gwun amputation. Continue with local care and IV antibiotic, PICC line inserted, daptomycin 3. Coronary artery disease with recent stent of the RCA due to recent in-stent restenosis. Patient has had previous multiple cardiac stents to the RCA and mid LAD, obtuse marginal branch. Continue patient on Plavix 75 mg daily, Lopressor 25 mg twice daily, Atorvastatin 40 mg po daily . 4. Diabetes mellitus type 2 uncontrolled with hypoglycemia. we will continue with Humalog 4 units AC meals tid , we will add Levemir 8 units sc qhs and Farxiga 10 mg po daily 5. Hyperlipidemia. Continue Atorvastatin 40 mg po daily 6. Chronic DVT and PEs. Continue patient on eliquis 5 mg twice daily. 7. Orthostatic hypotension continue patient on Midodrin 5 mg po tid 8. Hypertension and hypertensive cardiovascular disease. Continue metoprolol 25 mg orally twice every day. 9. Gastroesophageal reflux disease and GI prophylaxis. Continue Pantoprazole 40 mg daily. 10. Diabetic neuropathy. we will continue wit Gabapentin 400 mg po tid. 11. Generalized anxiety disorder, recurrent depression. Continue Cymbalta 60 mg po bid 13. DVT prophylaxis. Continue Eliquis 5 mg po bid 14. GI prophylaxis. Continue patient on PPI. 15. physical therapy evaluation. 16. dietary worker consultation for discharge planning. Impression and plan of care have been directed as dictated by the signing physician. Kerri Kevin nurse practitioner acting as scribe for signing physician. Objective - Vital Signs Vital signs: Vital Signs Temp 98.4 F 08/15/23 08:00 Pulse 63 08/15/23 08:00 Resp 18 08/15/23 08:00 BP 104/65 08/15/23 08:00 Pulse Ox 94 L 08/15/23 08:00 FiO2 Intake & Output 08/14/23 08/15/23 08/15/23 18:59 06:59 18:59 Intake Total 358 222 Output Total 1000 1000 1000 Balance -642 -1000 -778 Intake: Oral 358 222 Output: Urine 1000 1000 1000 Other: Voiding Method External Catheter External Catheter External Catheter - Labs CBC & Chem 7: 08/15/23 04:58 08/15/23 04:52 Labs: Abnormal Lab Results - Last 24 Hours (Table) 08/14/23 08/14/23 08/15/23 Range/Units 17:19 20:21 04:52 Hgb (12.0-15.0) g/dL MCH (27.0-32.0) pg MCHC (32.0-37.0) g/dL RDW (11.5-14.5) % ESR (0-30) mm/Hr Glucose 190 H (70-110) mg/dL POC Glucose (mg/dL) 253 H 246 H (70-110) mg/dL Calcium 8.4 L (8.7-10.3) mg/dL Alkaline Phosphatase 131 H (41-126) U/L Total Protein 5.4 L (6.2-8.2) g/dL Albumin 2.3 L (3.8-4.9) g/dL Albumin/Globulin Ratio 0.74 L (1.60-3.17) Ratio 08/15/23 08/15/23 08/15/23 Range/Units 04:58 06:01 12:46 Hgb 11.8 L (12.0-15.0) g/dL MCH 26.9 L (27.0-32.0) pg MCHC 30.2 L (32.0-37.0) g/dL RDW 20.9 H (11.5-14.5) % ESR 44 H (0-30) mm/Hr Glucose (70-110) mg/dL POC Glucose (mg/dL) 149 H 138 H (70-110) mg/dL Calcium (8.7-10.3) mg/dL Alkaline Phosphatase (41-126) U/L Total Protein (6.2-8.2) g/dL Albumin (3.8-4.9) g/dL Albumin/Globulin Ratio (1.60-3.17) Ratio Microbiology - Last 24 Hours (Table) 08/10/23 05:06 Blood Culture - Final Blood 08/09/23 15:30 Blood Culture - Final Blood 08/09/23 15:45 Blood Culture - Final Blood
--- NOTE | 2023-08-15 16:33 | P.PN ---
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 Patient did have a evaluation by vascular surgery and drainage of the right AKA stump abscess on 08/10/2023 On today's evaluation that is 08/15/2023, The patient continues to be afebrile, the patient is breathing comfortably on room air, patient denies chest pain or shortness of breath or cough, the patient nausea has improved and no vomiting occasional diarrhea no abdominal pain and denies any worsening pain to the right AKA stump, no new symptoms patient has had a PICC line Patient did have white count of 7.86, creatinine 0.7, ESR is 44, stool culture negative blood culture negative local culture finalized with MRSA Objective - Vital Signs Vital signs: Vital Signs Temp 97.8 F 08/15/23 14:00 Pulse 86 08/15/23 14:00 Resp 16 08/15/23 14:00 BP 98/60 08/15/23 14:00 Pulse Ox 97 08/15/23 14:00 FiO2 Intake & Output 08/14/23 08/15/23 08/15/23 18:59 06:59 18:59 Intake Total 358 340 Output Total 1000 1000 1450 Balance -979 -1000 -9608 Weight 81.647 kg Intake: Oral 358 340 Output: Urine 1000 1000 1450 Other: Voiding Method External Catheter External Catheter External Catheter - Exam GENERAL DESCRIPTION: Middle-age female lying in bed in no distress RESPIRATORY SYSTEM: Unlabored breathing , decreased breath sounds at bases HEART: S1 S2 regular rate and rhythm , ABDOMEN: Soft , no tenderness EXTREMITIES: Right AKA stump is currently dressed - Labs CBC & Chem 7: 08/15/23 04:58 08/15/23 04:52 Labs: Abnormal Lab Results - Last 24 Hours (Table) 08/14/23 08/14/23 08/15/23 Range/Units 17:19 20:21 04:52 Hgb (12.0-15.0) g/dL MCH (27.0-32.0) pg MCHC (32.0-37.0) g/dL RDW (11.5-14.5) % ESR (0-30) mm/Hr Glucose 190 H (70-110) mg/dL POC Glucose (mg/dL) 253 H 246 H (70-110) mg/dL Calcium 8.4 L (8.7-10.3) mg/dL Alkaline Phosphatase 131 H (41-126) U/L Total Protein 5.4 L (6.2-8.2) g/dL Albumin 2.3 L (3.8-4.9) g/dL Albumin/Globulin Ratio 0.74 L (1.60-3.17) Ratio 08/15/23 08/15/23 08/15/23 Range/Units 04:58 06:01 12:46 Hgb 11.8 L (12.0-15.0) g/dL MCH 26.9 L (27.0-32.0) pg MCHC 30.2 L (32.0-37.0) g/dL RDW 20.9 H (11.5-14.5) % ESR 44 H (0-30) mm/Hr Glucose (70-110) mg/dL POC Glucose (mg/dL) 149 H 138 H (70-110) mg/dL Calcium (8.7-10.3) mg/dL Alkaline Phosphatase (41-126) U/L Total Protein (6.2-8.2) g/dL Albumin (3.8-4.9) g/dL Albumin/Globulin Ratio (1.60-3.17) Ratio Microbiology - Last 24 Hours (Table) 08/10/23 05:06 Blood Culture - Final Blood 08/09/23 15:30 Blood Culture - Final Blood 08/09/23 15:45 Blood Culture - Final Blood Assessment and Plan (1) MRSA (methicillin resistant staph aureus) culture positive Current Visit: Yes Status: Acute Code(s): Z22.322 - CARRIER OR SUSPECTED CARRIER OF METHICILLIN RESIS STAPH SNOMED Code(s): 838843335 (2) Cellulitis of right leg Current Visit: Yes Status: Acute Code(s): L03.115 - CELLULITIS OF RIGHT LOWER LIMB SNOMED Code(s): 37605074867558496 (3) Diarrhea Current Visit: Yes Status: Acute Code(s): R19.7 - DIARRHEA, UNSPECIFIED SNOMED Code(s): 52908357 (4) Wound infection after surgery Current Visit: Yes Status: Acute Code(s): T81.49XA - INFECTION FOLLOWING A PROCEDURE, OTHER SURGICAL SITE, INIT SNOMED Code(s): 11892951 Plan: 1patient presented to hospital with significant diarrhea and this patient has been out of the hospital and has been exposed to multiple antibiotics with concern for possible infectious diarrhea such as C. difficile colitis, stool for C. difficile was not sent stool culture negative patient to continue with the Questran for symptomatic relief 2-patient also noticed to have a drainage from the right AKA stump concerning for stump infection and cellulitis and did have a small abscess drained by vascular surgery at the bedside cultures are now growing MRSA 3patient did not PICC line plan is to continue with t IV daptomycin 4 to 6-week course depending upon her clinical response and close outpatient follow-up with weekly monitoring of CRP and sed rate Dictation was produced using [employer] dictation software. please excuse any grammatical, word or spelling errors. Time with Patient: Less than 30
[2023-08-15 18:02] LABS: Glucose,Whole Blood 292 mg/dL (70-110)
[2023-08-15 20:28] LABS: Glucose,Whole Blood 250 mg/dL (70-110)
[2023-08-15] MEDS: INSULIN DETEMIR (LEVEMIR) 100 UNIT/ML SYR SQ SCH (22:09)
[2023-08-15] MEDS: APIXABAN 5 MG TAB PO SCH (22:09)
[2023-08-16 06:44] LABS: Glucose,Whole Blood 177 mg/dL (70-110)
[2023-08-16] MEDS: INSULIN ASPART (NovoLOG) 100 UNIT/ML VIAL SQ SCH ×3 (06:55→17:19)
[2023-08-16] MEDS: LOPERAMIDE 2 MG CAP PO PRN (07:45)
[2023-08-16] MEDS: ALPRAZolam 0.25 MG TAB PO PRN (07:45)
--- NOTE | 2023-08-16 08:00 | P.DS ---
Providers Date of admission: 08/09/23 15:36 Expected date of discharge: 08/16/23 Attending physician: Tramaine Tejeda Consults: 08/09/23 15:33 Consult Physician Urgent Consulting Provider: Javy Rutledge Consult Reason/Comments: surgical site drainage Do you want consulting provider notified?: Yes Consult Physician Urgent Consulting Provider: Zaira Sheppard Consult Reason/Comments: surgical site drainage Do you want consulting provider notified?: Yes Primary care physician: Tramaine Tejeda Hospital Course: HISTORY OF PRESENT ILLNESS This is a 63-year-old female patient of mine with history of CAD with multiple cardiac stents in mid RCA, mid LAD, obtuse marginal branch and followed by Dr. Bill closely, peripheral artery disease with previous stenting done as well has amputation of the right great toe secondary to osteomyelitis, CVA with no residual deficits, hypertension, COPD, diabetes mellitus type 2, previous multiple DVT and PE requiring chronic anticoagulation on eliquis, history of GI bleed secondary to antral gastritis, esophagitis, vitamin D deficiency, autonomic hypotension on midodrine, history of left humerus fracture. resume with patient April 02 through April 15 at which time she presented to the hospital due to right second and fifth toe ischemic change. A CT angiogram showed evidence of occlusion of the right superficial femoral artery and 2 occluded segments 1 in the mid thigh about 3 cm and another into the right popliteal artery at 13 cm length, occlusion of the right iliac artery into the common femoral artery. Patient was seen in consultation by vascular surgery. Arterial ultrasound showed lower extremity abnormal on the right with HERMINIA suggests severe atherosclerotic disease. Critical stenosis not excluded. Plan for open bypass surgery with vascular surgery was made but a cardiology consult was requested. Patient was seen by Dr. Bill and had chest pain complaint and Due to critical in-stent restenosis and subsequently underwent cardiac catheterization which revealed critical in-stent restenosis of the RCA and Dr. Bill present performed stenting of the RCA. There was also intermediate disease in the first obtuse marginal branch of the left circumflex, intermediate disease involving the LAD and mildly elevated left sided filling pressures after that patient developed to have significant hematoma require blood for sedation and ICU management, and after that underwent incision and drainage of the hematoma, and she also underwent the bright bed of the Ach[place] wound after she has had a graft that did not last much patient was treated with IV antibiotic and eventually the decision was made to go for a right pynbt-tfi-rdwy amputation as a definitive treatment for her peripheral vascular disease patient had that and she was sent to [facility] for physical therapy rehabilitation, while she was at [facility] she developed increased diarrhea with significant drop in her potassium and Magnesium and she was was last seen by vascular surgery before [place] 2 weeks ago and she had a small wound for which she did receive local care and today I did receive a call from Nursing staff at [facility] that the patient is having severe diarrhea with increased purulent drainage from the right stump wound , so she was sent to the Er for evaluation and she was found to have infected wound was started on IV ABX with Cefepime and wound cultures and blood cultures were done , consulted ID and vascular surgery 08/10: Patient sitting up in bed in no apparent distress, she denies any chest pain, shortness breath, she did not have any diarrhea since 2:00 in the morning, she is eating her food, her magnesium level is 1.5, she will receive 2 g of magnesium sulfate IV piggyback 1 continue oral magnesium at this time, resume the patient's Farxiga 10 mg once every day, start the patient on Levemir 15 units at bedtime, along with a sliding scale insulin. Her sugar has been high. 08/11: Patient is laying down in bed in no apparent distress, she has no fever or chills at this time, she was seen yesterday by vascular surgery she did have cleansing of the wound at the bedside that express more pus, recommended silver dressing on a daily basis, denies any antibiotic at this point in time in the form of cefepime, infectious disease is following, blood glucose level appears to be a bit better today, continue patient on the current treatment plan, continue diabetic diet, Gram stain of the cultures showed gram positive cocci, and blood cultures are negative after 24 hours. 08/12: Patient has been followed by ID and vascular surgery. Erythema and drainage to the stump is improving. Wound care is iodoform with change every other day. Patient is continued on Cefepime. BP 99/65 - 126/77. HR 70-80s. No leukocytosis. Wound culture is MRSA. Blood culture no growth x3. Capillary blood glucose running between 137 and 171. 08/13: ID has changed antibiotics to daptomycin. Patient is complaining of abdominal pain and vomiting became hot and cold this morning when she was working with physical therapy. Farxiga discontinued. Blood pressure 120/77, heart rate 81, afebrile, pulse ox 99% on room air. Blood sugars have been running between 100- 181. 08/14: Patient's vital signs have been stable. Wound to the right stump continues to show improvement. ID is following for antibiotics changed to daptomycin with plan for 4-6 week course and patient will need a PICC line which has been ordered for tomorrow as patient is on [place] which is placed on hold by vascular surgery. 08/15: Patient had PICC line placed today. Dr. Sheppard is planning on IV antibiotics with daptomycin for 4 to 6 weeks. Patient has been accepted at [facility] and insurance authorization has been obtained. Diarrhea seems to have been resolved. No abdominal pain today. Blood pressure 98/60, heart rate in the 60s to 80s, she has been afebrile, pulse ox 97% on room air. Blood sugars are improved today running 138-190. Plan will be for discharge to [facility] tomorrow. 08/16: No new issues occurred overnight. Patient continues to have some loose stools, no abdominal pain. Blood pressure 133/76, heart rate in the 60s to 80s. Capillary blood glucose running between 138 and 292. Patient will be discharged to [facility] today in stable condition. DISCHARGE DIAGNOSES 1. Infected right stump wound with MRSA. 2. Status post right zarsg-cjx-cpqk amputation. 3. Coronary artery disease with recent stent of the RCA due to recent in-stent restenosis. Patient has had previous multiple cardiac stents to the RCA and mid LAD, obtuse marginal branch. 4. Diabetes mellitus type 2 uncontrolled with hypoglycemia. 5. Hyperlipidemia. 6. Chronic DVT and PEs. 7. Orthostatic hypotension 8. Hypertension and hypertensive cardiovascular disease. 9. Gastroesophageal reflux disease and GI prophylaxis. 10. Diabetic neuropathy. 11. Generalized anxiety disorder, recurrent depression. Greater than 35 minutes was utilized and coordinating patient's discharge. Impression and plan of care have been directed as dictated by the signing physician. eKrri Kevin nurse practitioner acting as scribe for signing physician. Patient Condition at Discharge: Stable Plan - Discharge Summary New Discharge Prescriptions: New DAPTOmycin [Cubicin] 500 mg IVPB Q24HR each Insulin Detemir (Levemir) [Levemir] 8 unit SQ HS each Continue Ergocalciferol (Vitamin D2) [Drisdol (50,000 Iu)] 1,250 mcg PO GUERRERO Clopidogrel [Plavix] 75 mg PO DAILY@1100 INSULIN ASPART (NovoLOG) [NovoLOG (formulary)] See Protocol SQ ACHS@07,11,1630,2130 Magnesium Hydroxide [Milk of Magnesia Concentrate] 7,200 mg PO DAILY PRN PRN Reason: Constipation Na Phos,M-B/Na Phos,Di-Ba [Fleet Adult] 133 ml RECTAL DAILY PRN PRN Reason: Constipation Saline Nasal Gel [[place] Nasal Gel] 1 applic NASAL Q4HR PRN each PRN Reason: Dry Nasal Passages Acetaminophen Tab [Tylenol] 500 mg PO Q6HR PRN tab PRN Reason: Fever And/ Or Pain Docusate [Colace] 100 mg PO DAILY@0800 PRN #0 PRN Reason: Constipation Ferrous Sulfate [Feosol] 325 mg PO DAILY #0 Fluticasone Nasal [place] [Flonase Nasal [place]] 1 spray EA NOSTRIL BID@0800,1700 Loperamide [Imodium] 2 mg PO QID PRN PRN Reason: Loose Stool polyethylene glycoL 3350 [Miralax] 17 gm PO DAILY PRN PRN Reason: Constipation Rosuvastatin [Crestor] 20 mg PO DAILY@1700 #0 Gabapentin [Neurontin] 400 mg PO BID #6 cap ALPRAZolam [Xanax] 0.25 mg PO BID PRN 3 Days #6 tab PRN Reason: Anxiety Omeprazole [PriLOSEC] 20 mg PO DAILY Nitroglycerin Sl Tabs [Nitrostat] 0.4 mg SL Q5M PRN PRN Reason: Chest Pain Apixaban [Eliquis] 5 mg PO BID@0800,1700 Ipratropium-Albuterol Nebulize [Duoneb 0.5 mg-3 mg/3 ml Soln] 3 ml INHALATION RT-Q6H PRN each PRN Reason: Shortness Of Breath Or Wheezing bisacodyL [Dulcolax] 10 mg RECTAL DAILY PRN PRN Reason: Constipation DULoxetine HCL [Cymbalta] 60 mg PO BID Metoprolol Tartrate [Lopressor] 25 mg PO BID@0800,1700 Midodrine [ProAmatine] 5 mg PO BID@0800,1700 INSULIN ASPART (NovoLOG) [NovoLOG (formulary)] 4 unit SQ AC-TID each Benzocaine/Menthol Lozeng [Cepacol lozenge] 1 lozenge MUCOUS MEM Q4HR PRN PRN Reason: Sore Throat Magnesium Oxide [Mag-Ox] 400 mg PO DAILY@1200 Melatonin 3 mg PO HS Ondansetron [Zofran] 4 mg PO Q8H PRN PRN Reason: Nausea Potassium Chloride [Klor-Con M20] 20 meq PO DAILY Spironolactone 25 mg PO DAILY Changed HYDROcodone/APAP 7.5-325MG [[place] 7.5-325] 1 tab PO TID #9 tab Discontinued Dapagliflozin Propanediol [Farxiga] 10 mg PO DAILY Lactulose [Cephulac] 20 gm PO DAILY PRN PRN Reason: Constipation Insulin Glargine [Lantus Vial] 0 unit SQ HS Discharge Medication List Ergocalciferol (Vitamin D2) [Drisdol (50,000 Iu)] 1,250 mcg PO GUERRERO 04/01/23 [History] Nitroglycerin Sl Tabs [Nitrostat] 0.4 mg SL Q5M PRN 04/01/23 [History] Omeprazole [PriLOSEC] 20 mg PO DAILY 04/01/23 [History] Apixaban [Eliquis] 5 mg PO BID@0800,1700 05/20/23 [History] Clopidogrel [Plavix] 75 mg PO DAILY@1100 05/20/23 [History] Ipratropium-Albuterol Nebulize [Duoneb 0.5 mg-3 mg/3 ml Soln] 3 ml INHALATION RT-Q6H PRN each 06/14/23 [Rx] DULoxetine HCL [Cymbalta] 60 mg PO BID 07/04/23 [History] INSULIN ASPART (NovoLOG) [NovoLOG (formulary)] See Protocol SQ ACHS@07,11,1630,2130 07/04/23 [History] Magnesium Hydroxide [Milk of Magnesia Concentrate] 7,200 mg PO DAILY PRN 07/04/23 [History] Metoprolol Tartrate [Lopressor] 25 mg PO BID@0800,1700 07/04/23 [History] Midodrine [ProAmatine] 5 mg PO BID@0800,1700 07/04/23 [History] Na Phos,M-B/Na Phos,Di-Ba [Fleet Adult] 133 ml RECTAL DAILY PRN 07/04/23 [History] bisacodyL [Dulcolax] 10 mg RECTAL DAILY PRN 07/04/23 [History] Acetaminophen Tab [Tylenol] 500 mg PO Q6HR PRN tab 07/10/23 [Rx] Docusate [Colace] 100 mg PO DAILY@0800 PRN #0 07/10/23 [Rx] Ferrous Sulfate [Feosol] 325 mg PO DAILY #0 07/10/23 [Rx] INSULIN ASPART (NovoLOG) [NovoLOG (formulary)] 4 unit SQ AC-TID each 07/10/23 [Rx] Saline Nasal Gel [[place] Nasal Gel] 1 applic NASAL Q4HR PRN each 07/10/23 [Rx] Benzocaine/Menthol Lozeng [Cepacol lozenge] 1 lozenge MUCOUS MEM Q4HR PRN 08/09 [History] Fluticasone Nasal [place] [Flonase Nasal [place]] 1 spray EA NOSTRIL BID@0800,1700 08/09/23 [History] Loperamide [Imodium] 2 mg PO QID PRN 08/09/23 [History] Magnesium Oxide [Mag-Ox] 400 mg PO DAILY@1200 08/09/23 [History] Melatonin 3 mg PO HS 08/09/23 [History] Ondansetron [Zofran] 4 mg PO Q8H PRN 08/09/23 [History] Potassium Chloride [Klor-Con M20] 20 meq PO DAILY 08/09/23 [History] Spironolactone 25 mg PO DAILY 08/09/23 [History] polyethylene glycoL 3350 [Miralax] 17 gm PO DAILY PRN 08/09/23 [History] ALPRAZolam [Xanax] 0.25 mg PO BID PRN 3 Days #6 tab 08/15/23 [Rx] DAPTOmycin [Cubicin] 500 mg IVPB Q24HR each 08/15/23 [Rx] Gabapentin [Neurontin] 400 mg PO BID #6 cap 08/15/23 [Rx] HYDROcodone/APAP 7.5-325MG [[place] 7.5-325] 1 tab PO TID #9 tab 08/15/23 [Rx] Insulin Detemir (Levemir) [Levemir] 8 unit SQ HS each 08/15/23 [Rx] Rosuvastatin [Crestor] 20 mg PO DAILY@1700 #0 08/15/23 [Rx] Follow up Appointment(s)/Referral(s): Padmaja Mendoza DO [STAFF PHYSICIAN] - 2 Weeks [facility] [NON-STAFF] - 1 Week Tramaine Tejeda MD [Primary Care Provider] - 1 Week (at [facility]) Zaira Sheppard MD [STAFF PHYSICIAN] - 3 Weeks Ambulatory/Diagnostic Orders: C Reactive Protein [LAB.AMB] Location: None Selected Complete Blood Count w/diff [LAB.AMB] Location: None Selected Comprehensive Metabolic Panel [LAB.AMB] Location: None Selected Erythrocyte Sedimentation Rate [LAB.AMB] Location: None Selected Discharge Disposition: TRANSFER TO SNF/ECF
[2023-08-16] MEDS: FLUTICASONE 50MCG/SPRAY NASAL 16GM EA NOSTRIL SCH ×2 (10:01→17:07)
[2023-08-16] MEDS: SPIRONOLACTONE 25 MG TAB PO SCH (10:02)
[2023-08-16] MEDS: POTASSIUM CHLORIDE ER 20 MEQ TAB.ER PO SCH (10:02)
[2023-08-16] MEDS: GABAPENTIN 400 MG CAP PO SCH (10:02)
[2023-08-16] MEDS: APIXABAN 5 MG TAB PO SCH (10:02)
[2023-08-16] MEDS: PANTOPRAZOLE 40 MG TABLET PO SCH (10:02)
[2023-08-16] MEDS: HYDROcodone/APAP 7.5-325MG 1 EACH TAB PO SCH ×2 (10:02→15:51)
[2023-08-16] MEDS: FERROUS SULFATE 325 MG TAB PO SCH (10:02)
[2023-08-16] MEDS: METOPROLOL TARTRATE 25 MG TAB PO SCH ×2 (10:03→17:07)
[2023-08-16] MEDS: DULoxetine HCL 60 MG CAPSULE.DR PO SCH (10:03)
[2023-08-16] MEDS: CHOLESTYRAMINE (WITH SUGAR) 4 GM PACKET PO SCH ×2 (10:03→17:07)
[2023-08-16] MEDS: DAPTOmycin 500 MG in SODIUM CHLORIDE 0.9% 50 ML IVPB SCH (10:08)
[2023-08-16] MEDS: MIDODRINE 5 MG TAB PO SCH ×2 (10:08→17:07)
[2023-08-16] MEDS: CLOPIDOGREL 75 MG TAB PO SCH (11:41)
[2023-08-16] MEDS: MAGNESIUM OXIDE 400 MG TAB PO SCH (11:41)
[2023-08-16 13:06] LABS: Glucose,Whole Blood 385 mg/dL (70-110)
[2023-08-16 15:53] VITALS: BP 135/80; PULSE 73; RESP 16; TEMP 98
[2023-08-16 17:08] LABS: Glucose,Whole Blood 382 mg/dL (70-110)
[2023-08-16] MEDS ORDERED: INSULIN ASPART (NovoLOG) 100 UNIT/ML VIAL SQ ONE (17:18)
== END 2023-08-16 18:25 | DRG 565 ==
LOC: EC 11:17 → 4SSUR 15:36 → 6NMEDSUR 08-10 04:56
PROVIDERS: ADMIT Internal Medicine; ATTEND Internal Medicine
PROC: 02HV33Z Insertion of Infusion Device into Superior Vena Cava, Percutaneous Approach (ICD-10-PCS; principal; 2023-08-15 09:00)
DX: T87.43 Infection of amputation stump, right lower extremity (principal); F33.9 Major depressive disorder, recurrent, unspecified; T82.855A Stenosis of coronary artery stent, initial encounter; L03.115 Cellulitis of right lower limb; E11.649 Type 2 diabetes mellitus with hypoglycemia without coma; E11.40 Type 2 diabetes mellitus with diabetic neuropathy, unspecified; B95.62 Methicillin resistant Staphylococcus aureus infection as the cause of diseases classified elsewhere; E66.01 Morbid (severe) obesity due to excess calories; J44.9 Chronic obstructive pulmonary disease, unspecified; Z89.611 Acquired absence of right leg above knee; Z79.4 Long term (current) use of insulin; K76.0 Fatty (change of) liver, not elsewhere classified; I11.9 Hypertensive heart disease without heart failure; I95.1 Orthostatic hypotension; M51.16 Intervertebral disc disorders with radiculopathy, lumbar region; I25.10 Atherosclerotic heart disease of native coronary artery without angina pectoris; F41.1 Generalized anxiety disorder; Z68.28 Body mass index [BMI] 28.0-28.9, adult; E78.5 Hyperlipidemia, unspecified; K21.9 Gastro-esophageal reflux disease without esophagitis; G89.4 Chronic pain syndrome; E55.9 Vitamin D deficiency, unspecified; I25.2 Old myocardial infarction; K59.00 Constipation, unspecified; R19.7 Diarrhea, unspecified; F17.210 Nicotine dependence, cigarettes, uncomplicated; Z79.01 Long term (current) use of anticoagulants; Z79.02 Long term (current) use of antithrombotics/antiplatelets; Z79.84 Long term (current) use of oral hypoglycemic drugs; Z79.899 Other long term (current) drug therapy; Z85.828 Personal history of other malignant neoplasm of skin; Z86.73 Personal history of transient ischemic attack (TIA), and cerebral infarction without residual deficits; Z96.612 Presence of left artificial shoulder joint; Z86.718 Personal history of other venous thrombosis and embolism; Z98.1 Arthrodesis status; Z86.711 Personal history of pulmonary embolism; Z95.5 Presence of coronary angioplasty implant and graft; Z95.820 Peripheral vascular angioplasty status with implants and grafts; Z95.828 Presence of other vascular implants and grafts; Z91.81 History of falling; Z71.3 Dietary counseling and surveillance; Y83.5 Amputation of limb(s) as the cause of abnormal reaction of the patient, or of later complication, without mention of misadventure at the time of the procedure; Z88.1 Allergy status to other antibiotic agents; Z82.49 Family history of ischemic heart disease and other diseases of the circulatory system; Z83.3 Family history of diabetes mellitus
CPT/HCPCS: 36415; 36573; 74018; 80048; 80053; 81001; 83605; 83690; 83735; 85025; 85652; 86140; 87040; 87045; 87046; 87070; 87077; 87186; 87205; 96361; 96365; 96375; 99285

== ENCOUNTER 2023-09-19 09:40 | Day surgery (SDC) | payer MEDICARE, OTHER ==
[2023-09-16 11:34] VITALS: BMI 27.4
[~2023-09-19 09:40] MED LIST changes: -LACTATED RINGERS 1,000 ML IV SCH; +LIDOCAINE 1% (10MG/ML) FOR IV START INTRADERMA PRN
[2023-09-19] MEDS: LACTATED RINGERS 1,000 ML IV SCH (10:45)
[2023-09-19 10:52] LABS: Glucose,Whole Blood 135 mg/dL (70-110)
[2023-09-19] MEDS: ONDANSETRON 4 MG/2 ML VIAL IVP ONE (10:58)
[2023-09-19] MEDS: ENOXAPARIN 30 MG/0.3 ML SYRINGE SQ PRN (10:58)
[2023-09-19] MEDS: MIDAZOLAM 2 MG/2 ML VIAL IVP ONE (12:22)
[2023-09-19] MEDS: fentaNYL (PF) 50 MCG/ML 2 ML AMP IVP ONE (12:23)
[2023-09-19] MEDS ORDERED: ePHEDrine 50 MG/ML 1 ML VIAL ONE (13:02)
[2023-09-19] MEDS ORDERED: KETAMINE HCL IN 0.9 % NACL 50 MG/5 ML SYRINGE ONE (13:02)
[2023-09-19] MEDS ORDERED: MIDAZOLAM 2 MG/2 ML VIAL ONE (13:02)
[2023-09-19] MEDS ORDERED: fentaNYL (PF) 50 MCG/ML 2 ML AMP ONE (13:02)
[2023-09-19] MEDS ORDERED: PHENYLEPHRINE-0.9% NACL SYG 1,000 MCG/10 ML SYRINGE ONE (13:02)
[2023-09-19] MEDS ORDERED: PROPOFOL 10 MG/ML 20 ML VIAL IV ONE (13:02)
[2023-09-19] MEDS ORDERED: LIDOCAINE 1% INJ 10MG/ML (20 ML MDV) ONE (13:02)
[2023-09-19] MEDS ORDERED: VASOPRESSIN 20 UNIT/ML 1 ML VIAL ONE (13:02)
[2023-09-19] MEDS: LACTATED RINGERS 1,000 ML IV ONE (13:40)
--- NOTE | 2023-09-19 13:59 | P.OP ---
Date of Procedure: 09/19/23 Preoperative Diagnosis: Nonhealing right azvtz-cde-gntw amputation wound. Postoperative Diagnosis: Same. Procedure(s) Performed: Washout of right zhnzl-esg-jeoa wound with application of negative pressure wound VAC therapy less than 50 cm. Anesthesia: GETA (Via LMA) Surgeon: Heraclio Hughes Estimated Blood Loss (ml): 2 Pathology: other (Wound culture) Condition: stable Disposition: no change Indications for Procedure: Patient is a 63-year-old female status post right ctdkx-nup-nveb amputation for irreversible ischemia of the right lower extremity. The patient has had 1 area along the medial aspect of her wound that has failed to completely heal and is draining. This has been treated as an outpatient with out much improvement. Patient was thus offered surgical exploration/washout and application of negative pressure wound VAC therapy. The procedure, risk and benefits were discussed with the patient. Patient wished to proceed. Description of Procedure: Patient was brought the operating placed in supine position administered general inhalational anesthesia delivered by the department anesthesiology. Patient's right hdrxo-dhw-toeb amputation area was sterilely prepped and draped in usual manner. Along the medial aspect of the wound there is a solitary punctate wound which measures approximately three quarters of a centimeter in diameter. This probed to approximately 3 cm in depth. Using a surgical scalpel the wound was extended and explored with finger technique. The wound was cultured however no purulent drainage was encountered. There appeared to be adequate granulation tissue present. There is approximately 6 cm of tunneling. The wound was then irrigated and a wound VAC was placed with good suction/seal noted. Patient tolerated the procedure well and was taken to the recovery area in satisfactory and stable condition. Plan - Discharge Summary Discharge Rx Participant: No New Discharge Prescriptions: No Action Ergocalciferol (Vitamin D2) [Drisdol (50,000 Iu)] 1,250 mcg PO GUERRERO Clopidogrel [Plavix] 75 mg PO DAILY@1100 INSULIN ASPART (NovoLOG) [NovoLOG (formulary)] See Protocol SQ AC-TID Magnesium Hydroxide [Milk of Magnesia Concentrate] 7,200 mg PO DAILY PRN PRN Reason: Constipation Na Phos,M-B/Na Phos,Di-Ba [Fleet Adult] 133 ml RECTAL DAILY PRN PRN Reason: Constipation Saline Nasal Gel [[place] Nasal Gel] 1 applic NASAL Q4HR PRN each PRN Reason: Dry Nasal Passages Acetaminophen Tab [Tylenol] 500 mg PO Q6HR PRN tab PRN Reason: Fever And/ Or Pain Docusate [Colace] 100 mg PO DAILY@0800 PRN #0 PRN Reason: Constipation Ferrous Sulfate [Feosol] 325 mg PO DAILY #0 Fluticasone Nasal [place] [Flonase Nasal [place]] 1 spray EA NOSTRIL BID@0800,1700 Loperamide [Imodium] 1 mg PO QID PRN PRN Reason: Loose Stool polyethylene glycoL 3350 [Miralax] 17 gm PO DAILY PRN PRN Reason: Constipation Gabapentin [Neurontin] 400 mg PO BID #6 cap ALPRAZolam [Xanax] 0.25 mg PO BID PRN 3 Days #6 tab PRN Reason: Anxiety Diphenoxylate HCl/Atropine [Lomotil 2.5-0.025 mg Tablet] 1 tab PO QID PRN PRN Reason: Diarrhea Famotidine [Pepcid] 20 mg PO DAILY Spironolactone [Aldactone] 25 mg PO DAILY Nitroglycerin Sl Tabs [Nitrostat] 0.4 mg SL Q5M PRN PRN Reason: Chest Pain Apixaban [Eliquis] 5 mg PO BID@0800,1700 Ipratropium-Albuterol Nebulize [Duoneb 0.5 mg-3 mg/3 ml Soln] 3 ml INHALATION RT-Q6H PRN each PRN Reason: Shortness Of Breath Or Wheezing bisacodyL [Dulcolax] 10 mg RECTAL DAILY PRN PRN Reason: Constipation DULoxetine HCL [Cymbalta] 60 mg PO BID Metoprolol Tartrate [Lopressor] 25 mg PO BID@0800,1700 Midodrine [ProAmatine] 5 mg PO BID@0800,1700 INSULIN ASPART (NovoLOG) [NovoLOG (formulary)] 4 unit SQ AC-TID each Benzocaine/Menthol Lozeng [Cepacol lozenge] 1 lozenge MUCOUS MEM Q4HR PRN PRN Reason: Sore Throat Magnesium Oxide [Mag-Ox] 400 mg PO DAILY@1200 Melatonin 3 mg PO HS Ondansetron [Zofran] 4 mg PO Q8H PRN PRN Reason: Nausea Potassium Chloride [Klor-Con M20] 20 meq PO DAILY Spironolactone 25 mg PO DAILY DAPTOmycin [Cubicin] 500 mg IVPB Q24HR each Insulin Detemir (Levemir) [Levemir] 8 unit SQ HS each HYDROcodone/APAP 7.5-325MG [[place] 7.5-325] 1 tab PO TID #9 tab Baclofen 5 mg PO Q8H PRN PRN Reason: muscle spasms Atorvastatin Calcium [Lipitor] 80 mg PO QAM Discharge Medication List Ergocalciferol (Vitamin D2) [Drisdol (50,000 Iu)] 1,250 mcg PO GUERRERO 04/01/23 [History] Nitroglycerin Sl Tabs [Nitrostat] 0.4 mg SL Q5M PRN 04/01/23 [History] Apixaban [Eliquis] 5 mg PO BID@0800,1700 05/20/23 [History] Clopidogrel [Plavix] 75 mg PO DAILY@1100 05/20/23 [History] Ipratropium-Albuterol Nebulize [Duoneb 0.5 mg-3 mg/3 ml Soln] 3 ml INHALATION RT-Q6H PRN each 06/14/23 [Rx] DULoxetine HCL [Cymbalta] 60 mg PO BID 07/04/23 [History] INSULIN ASPART (NovoLOG) [NovoLOG (formulary)] See Protocol SQ AC-TID 07/04/23 [History] Magnesium Hydroxide [Milk of Magnesia Concentrate] 7,200 mg PO DAILY PRN 07/04/23 [History] Metoprolol Tartrate [Lopressor] 25 mg PO BID@0800,1700 07/04/23 [History] Midodrine [ProAmatine] 5 mg PO BID@0800,1700 07/04/23 [History] Na Phos,M-B/Na Phos,Di-Ba [Fleet Adult] 133 ml RECTAL DAILY PRN 07/04/23 [History] bisacodyL [Dulcolax] 10 mg RECTAL DAILY PRN 07/04/23 [History] Acetaminophen Tab [Tylenol] 500 mg PO Q6HR PRN tab 07/10/23 [Rx] Docusate [Colace] 100 mg PO DAILY@0800 PRN #0 07/10/23 [Rx] Ferrous Sulfate [Feosol] 325 mg PO DAILY #0 07/10/23 [Rx] INSULIN ASPART (NovoLOG) [NovoLOG (formulary)] 4 unit SQ AC-TID each 07/10/23 [Rx] Saline Nasal Gel [[place] Nasal Gel] 1 applic NASAL Q4HR PRN each 07/10/23 [Rx] Benzocaine/Menthol Lozeng [Cepacol lozenge] 1 lozenge MUCOUS MEM Q4HR PRN 08/09/23 [History] Fluticasone Nasal [place] [Flonase Nasal [place]] 1 spray EA NOSTRIL BID@0800,1700 08/09/23 [History] Loperamide [Imodium] 1 mg PO QID PRN 08/09/23 [History] Magnesium Oxide [Mag-Ox] 400 mg PO DAILY@1200 08/09/23 [History] Melatonin 3 mg PO HS 08/09/23 [History] Ondansetron [Zofran] 4 mg PO Q8H PRN 08/09/23 [History] Potassium Chloride [Klor-Con M20] 20 meq PO DAILY 08/09/23 [History] Spironolactone 25 mg PO DAILY 08/09/23 [History] polyethylene glycoL 3350 [Miralax] 17 gm PO DAILY PRN 08/09/23 [History] ALPRAZolam [Xanax] 0.25 mg PO BID PRN 3 Days #6 tab 08/15/23 [Rx] DAPTOmycin [Cubicin] 500 mg IVPB Q24HR each 08/15/23 [Rx] Gabapentin [Neurontin] 400 mg PO BID #6 cap 08/15/23 [Rx] HYDROcodone/APAP 7.5-325MG [[place] 7.5-325] 1 tab PO TID #9 tab 08/15/23 [Rx] Insulin Detemir (Levemir) [Levemir] 8 unit SQ HS each 08/15/23 [Rx] Atorvastatin Calcium [Lipitor] 80 mg PO QAM 09/16/23 [History] Baclofen 5 mg PO Q8H PRN 09/16/23 [History] Diphenoxylate HCl/Atropine [Lomotil 2.5-0.025 mg Tablet] 1 tab PO QID PRN 09/16/23 [History] Famotidine [Pepcid] 20 mg PO DAILY 02/12/24 [History] Spironolactone [Aldactone] 25 mg PO DAILY 09/16/23 [History]
[2023-09-19 14:01] VITALS: TEMP 97
[2023-09-19 14:07] LABS: Glucose,Whole Blood 144 mg/dL (70-110)
[2023-09-19 14:32] VITALS: RESP 16
[2023-09-19] MEDS: HYDROmorphone 0.5 MG/0.5 ML SYRINGE IVP PRN (15:15)
[2023-09-19 17:01] VITALS: BP 103/69; PULSE 78
== END 2023-09-19 16:35 ==
LOC: OR 09:40
PROVIDERS: ATTEND Surgery
DX: T87.89 Other complications of amputation stump (principal); I25.10 Atherosclerotic heart disease of native coronary artery without angina pectoris; J44.9 Chronic obstructive pulmonary disease, unspecified; E11.40 Type 2 diabetes mellitus with diabetic neuropathy, unspecified; I10 Essential (primary) hypertension; I73.9 Peripheral vascular disease, unspecified; F17.200 Nicotine dependence, unspecified, uncomplicated; Z86.711 Personal history of pulmonary embolism; Z86.73 Personal history of transient ischemic attack (TIA), and cerebral infarction without residual deficits; Z86.718 Personal history of other venous thrombosis and embolism; Z85.828 Personal history of other malignant neoplasm of skin; Z90.49 Acquired absence of other specified parts of digestive tract; Z98.51 Tubal ligation status; Z98.890 Other specified postprocedural states; Z79.01 Long term (current) use of anticoagulants; Z79.890 Hormone replacement therapy; Z79.899 Other long term (current) drug therapy
CPT/HCPCS: 87070; 87205; 87075; 97607; 15002; J2250; J0690; J2405; J2001; J3010; J1650; J2704; J1170; J2371

== ENCOUNTER 2023-10-20 10:53 | Emergency (ER) | payer MEDICARE, OTHER ==
--- NOTE | 2023-10-20 11:05 | ED ---
Extremity Problem HPI - General Chief complaint: Extremity Problem,Nontraumatic Stated complaint: Left leg pain Time Seen by Provider: 10/20/23 11:05 Source: patient, RN notes reviewed Mode of arrival: EMS Limitations: no limitations - History of Present Illness Initial comments: 63-year-old female presents to the emergency department via EMS from [facility] with chief complaint of left lower extremity pain since . Patient states the pain has been worsening over the past few days leading to difficulty transferring. Also admits that she is not feeling like herself feels fatigued and weak. Denies any syncopal episodes or near syncope, chest pressure or pain, lightheadedness, shortness of breath, abdominal pain, nausea, vomiting, diarrhea. currently undergoing IV antibiotic therapy via PICC line for gangrenous infection of her right lower extremity with a wound VAC in place, not currently attached to vacuum. States that she underwent C. difficile testing last time she was in the hospital which came back negative. Patient has a history of stroke, coronary artery disease with 5 stents placed, DVT on Eliquis. - Related Data Home Medications Medication Instructions Recorded Confirmed Ergocalciferol (Vitamin D2) 1,250 mcg PO GUERRERO 04/01/23 09/19/23 [Drisdol (50,000 Iu)] Nitroglycerin Sl Tabs [Nitrostat] 0.4 mg SL Q5M PRN 04/01/23 09/19/23 Apixaban [Eliquis] 5 mg PO BID@0800,1700 05/20/23 09/19/23 Clopidogrel [Plavix] 75 mg PO DAILY@1100 05/20/23 09/19/23 DULoxetine HCL [Cymbalta] 60 mg PO BID 07/04/23 09/19/23 INSULIN ASPART (NovoLOG) [NovoLOG See Protocol SQ AC-TID 07/04/23 09/19/23 (formulary)] Magnesium Hydroxide [Milk of 7,200 mg PO DAILY PRN 07/04/23 09/19/23 Magnesia Concentrate] Metoprolol Tartrate [Lopressor] 25 mg PO BID@0800,1700 07/04/23 09/19/23 Midodrine [ProAmatine] 5 mg PO BID@0800,1700 07/04/23 09/19/23 Na Phos,M-B/Na Phos,Di-Ba [Fleet 133 ml RECTAL DAILY PRN 07/04/23 09/19/23 Adult] bisacodyL [Dulcolax] 10 mg RECTAL DAILY PRN 07/04/23 09/19/23 Benzocaine/Menthol Lozeng [Cepacol 1 lozenge MUCOUS MEM Q4HR PRN 08/09/23 lozenge] Fluticasone Nasal [place] [Flonase 1 spray EA NOSTRIL BID@0800,1700 08/09/23 09/19/23 Nasal [place]] Loperamide [Imodium] 1 mg PO QID PRN 08/09/23 09/19/23 Magnesium Oxide [Mag-Ox] 400 mg PO DAILY@1200 08/09/23 09/19/23 Melatonin 3 mg PO HS 08/09/23 09/19/23 Ondansetron [Zofran] 4 mg PO Q8H PRN 08/09/23 09/19/23 Potassium Chloride [Klor-Con M20] 20 meq PO DAILY 08/09/23 09/19/23 Spironolactone 25 mg PO DAILY 08/09/23 09/19/23 polyethylene glycoL 3350 [Miralax] 17 gm PO DAILY PRN 08/09/23 09/19/23 Atorvastatin Calcium [Lipitor] 80 mg PO QAM 09/16/23 09/19/23 Baclofen 5 mg PO Q8H PRN 09/16/23 09/19/23 Diphenoxylate HCl/Atropine 1 tab PO QID PRN 09/16/23 09/19/23 [Lomotil 2.5-0.025 mg Tablet] Famotidine [Pepcid] 20 mg PO DAILY 09/16/23 09/19/23 Spironolactone [Aldactone] 25 mg PO DAILY 09/16/23 09/19/23 Previous Rx's Medication Instructions Recorded Ipratropium-Albuterol Nebulize 3 ml INHALATION RT-Q6H PRN each 06/14/23 [Duoneb 0.5 mg-3 mg/3 ml Soln] Acetaminophen Tab [Tylenol] 500 mg PO Q6HR PRN tab 07/10/23 Docusate [Colace] 100 mg PO DAILY@0800 PRN #0 07/10/23 Ferrous Sulfate [Feosol] 325 mg PO DAILY #0 07/10/23 INSULIN ASPART (NovoLOG) [NovoLOG 4 unit SQ AC-TID each 07/10/23 (formulary)] Saline Nasal Gel [[place] Nasal Gel] 1 applic NASAL Q4HR PRN each 07/10/23 ALPRAZolam [Xanax] 0.25 mg PO BID PRN 3 Days #6 tab 08/15/23 DAPTOmycin [Cubicin] 500 mg IVPB Q24HR each 08/15/23 Gabapentin [Neurontin] 400 mg PO BID #6 cap 08/15/23 HYDROcodone/APAP 7.5-325MG [[place] 1 tab PO TID #9 tab 08/15/23 7.5-325] Insulin Detemir (Levemir) [Levemir] 8 unit SQ HS each 08/15/23 Magnesium Oxide [Mag-Ox] 400 mg PO DAILY #14 tablet 10/20/23 Nitrofurantoin Monohyd/M-Cryst 100 mg PO Q12HR #14 cap 10/20/23 [Macrobid] Allergies Allergy/AdvReac Type Severity Reaction Status Date / Time vancomycin Allergy Rash/Hives/and Verified 10/20/23 11:03 vomiting diarrhea/Swelling Review of Systems ROS Statement: Those systems with pertinent positive or pertinent negative responses have been documented in the HPI. ROS Other: All systems not noted in ROS Statement are negative. Past Medical History Past Medical History: Coronary Artery Disease (CAD), Diabetes Mellitus, Deep Vein Thrombosis (DVT), Vascular Disorder Additional Past Medical History / Comment(s): Recent hospitalization Aug 2023- Diarrhea, cellulitis rt AKA (AKA 06-07-23)site and PICC line placement (Power PICC SOLO2 catheter site lt arm),SKIN CA to neck. 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, NEUROPATHY lt leg and foot, Mechanical stand x2, .Mutiple DVT-lt leg, stomach and lungs,mesentaric thrombosis x2 & PE, PAD, chronic pain syndrome, ddd lumbar region w/radiculopathy, HISTORY OF FALL 01/07/20 , tore rt rotator cuff, pancreatitis, fatty liver, per Wendie at [facility] 09-16-23 pt has skin tears to both arms-rt is open and lt is healed, Pt states she's "forgetful", per Dr. Azar H+P pt c/o dysphonia. Last Myocardial Infarction Date:: 2010 History of Any Multi-Drug Resistant Organisms: MRSA Date of last positivie culture/infection: 08/09/23 MDRO Source:: Right Leg Past Surgical History: Section, Cholecystectomy, Heart Catheterization, Heart Catheterization With Stent, Orthopedic Surgery, Tonsillectomy, Tubal Ligation Additional Past Surgical History / Comment(s): Right Below Knee Amputation 04/2023, 11 Stents in left leg, fistula left thigh, full mouth teeth extraction, TRAPEASE VENA CAVA FILTER, carpel tunnel, heart stents x4 rca and lad, tumor removal from uterus. Genital warts removed, INGRID. Skin cancer removed from neck, rt great toe amputated, colonoscopy, rt rotator, left shoulder replacement, cervial fusion, rt calf debridement, rt calf skin graft (May 2023) Past Anesthesia/Blood Transfusion Reactions: No Reported Reaction Date of Last Stent Placement:: Mar 2023 Past Psychological History: Anxiety, Depression Smoking Status: Current every day smoker Past Alcohol Use History: None Reported Past Drug Use History: None Reported - Past Family History Mother Family Medical History: Cancer, Congestive Heart Failure (CHF), Diabetes Mellitus, Myocardial Infarction (PR) Additional Family Medical History / Comment(s): UTERINE CANCER Father Family Medical History: Coronary Artery Disease (CAD), Myocardial Infarction (PR) Additional Family Medical History / Comment(s): Father at age 70. Sister(s) Family Medical History: Myocardial Infarction (PR) Additional Family Medical History / Comment(s): Patient has one sister with myocardial infarction at age 55. Son(s) Family Medical History: Deep Vein Thrombosis (DVT), Pulmonary Embolus Additional Family Medical History / Comment(s): Patient has 2 sons and one has history of DVT and pulmonary embolism. General Exam Limitations: no limitations General appearance: alert Head exam: Present: atraumatic, normocephalic, normal inspection Eye exam: Present: normal appearance, PERRL, EOMI. Absent: scleral icterus, conjunctival injection, periorbital swelling ENT exam: Present: normal exam, mucous membranes moist Neck exam: Present: normal inspection. Absent: tenderness, meningismus, lymphadenopathy Respiratory exam: Present: normal lung sounds bilaterally. Absent: respiratory distress, wheezes, rales, rhonchi, stridor Cardiovascular Exam: Present: regular rate, normal rhythm GI/Abdominal exam: Present: soft, normal bowel sounds. Absent: distended, tenderness, guarding, rebound, rigid Extremities exam: Present: other (Right leg amputation from knee down, wound VAC sieve on medial right knee not attached to wound VAC currently) Left Hip exam: Present: normal inspection. Absent: full ROM, tenderness, swelling Upper Leg exam: Present: tenderness (posterior tenderness to patient with no overlying area of erythema, no palpable cord, no ecchymosis or obvious defor mity) Knee exam: Present: tenderness (popliteal tenderness to palpation). Absent: full ROM (limited active flexion and extension), abrasion, laceration, ecchymosis, deformity Lower Leg exam: Present: tenderness (posterior calf tenderness ) Foot/Toe exam: Present: normal inspection, full ROM. Absent: tenderness, swelling Neurovascular tendon exam: Present: no vascular compromise. Absent: pulse d eficit, abnormal cap refill, motor deficit, sensory deficit Back exam: Present: normal inspection Neurological exam: Present: alert, oriented X3, CN II-XII intact Psychiatric exam: Present: normal affect, normal mood Skin exam: Present: warm, dry, intact, normal color. Absent: rash Course Vital Signs 10/20/23 10/20/23 10:59 12:52 Temperature 99 F Pulse Rate 77 71 Respiratory 16 16 Rate Blood Pressure 122/81 95/58 O2 Sat by Pulse 95 97 Oximetry Medical Decision Making - Medical Decision Making Was pt. sent in by a medical professional or institution (, PA, COOKING APPLIANCE REPAIR TECHNICIAN, urgent c are, hospital, or fdc...) When possible be specific @ -No Did you speak to anyone other than the patient for history (EMS, parent, family, police, friend...)? What history was obtained from this source @ -No Did you review nursing and triage notes (agree or disagree)? Why? @ -I reviewed and agree with nursing and triage notes Were old charts reviewed (outside hosp., previous admission, EMS record, old EKG, old radiological studies, urgent care reports/EKG's, fdc records)? Report findings @ -Previous inpatient hospitalization was reviewed where she had to undergo right below the knee total amputation due to gangrene. Reviewed patient's previous EKG in 2022, EKG report from today shows no acute changes. Differential Diagnosis (chest pain, altered mental status, abdominal pain women, abdominal pain men, vaginal bleeding, weakness, fever, dyspnea, syncope, headache, dizziness, GI bleed, back pain, seizure, CVA, palpatations, mental health, musculoskeletal)? @ -Differential Musculoskeletal Muscular strain, contusion, ligament sprain, fracture, arthritis, septic arth ritis, bursitis, cellulitis, muscle spasm, nerve compression, DVT, arterial occlusion, herpes zoster, electrolyte abnormality, tumor.... This is not meant to be in all inclusive list EKG interpreted by me (3pts min.). @ -completed at 1137 shows sinus rhythm, ventricular rate 71, VA 168, QTc 391. No acute signs of ST segment elevation or depression. Parison to EKG scanned from 2022 shows no acute ischemic changes. X-rays interpreted by me (1pt min.). @ -chest X-ray no acute cardiopulmonary process CT interpreted by me (1pt min.). @ -None done U/S interpreted by me (1pt. min.). @ -Radiology discerned and verbally stated that complete Venous duplex ultrasound of left lower extremity does not show any acute signs of new blood clot formation reveals multiple old clotsof the left lower extremity What testing was considered but not performed or refused? (CT, X-rays, U/S, labs)? Why? @ -None What meds were considered but not given or refused? Why? @ -None Did you discuss the management of the patient with other professionals (professionals i.e. , PA, COOKING APPLIANCE REPAIR TECHNICIAN, lab, RT, psych nurse, social work supervisor, supervisor nut processing, teacher, public information officer, case assistant)? Give summary @ -No Was smoking cessation discussed for >3mins.? @ -No Was critical care preformed (if so, how long)? @ -No Were there social determinants of health that impacted care today? How? (Homelessness, low income, unemployed, alcoholism, drug addiction, transportation, low edu. Level, literacy, decrease access to med. care, [facility], rehab)? @ -No Was there de-escalation of care discussed even if they declined (Discuss DNR or withdrawal of care, Hospice)? DNR status @ -No What co-morbidities impacted this encounter? (DM, HTN, Smoking, COPD, CAD, Cancer, CVA, ARF, Chemo, Hep., AIDS, mental health diagnosis, sleep apnea, morbid obesity)? @ -Hypertension, coronary artery disease, diabetes Was patient admitted / discharged? Hospital course, mention meds given and route, prescriptions, significant lab abnormalities, going to OR and other pertinent info. @ -63-year-old female chief complaint of left lower extremity pain. Patient was given IV pain medication upon arrival. CBC no acute signs of leukocytosis or thrombocytopenia. BNP and troponin unremarkable. hypomagnesemia of 1.3 and hypocalcemia of 8.1, patient given PO Mg supplement. Official ultrasound impression reveals positive for DVT, is visualized with internal echoes, these findings are similar to CT that was completed in June 2023. Findings of venous duplex ultrasound of the left lower extremity with radiology, radiologist expressed that the findings of DVT are not acute, these findings are chronic. No signs of acute DVT noted. chest x-ray no acute cardiopulmonary process. UA reveals small blood, large leukocyte esterase, 20 red blood cells and greater than 182 white blood cells. Urine positive for infection, patient given dose of IM Rocephin here and will be discharged with p.o. Macrobid. Patient also given prescription for daily magnesium supplement due to finding of low magnesium. while discussing the results with the patient, she expressed that she is still in pain of her left lower extremity, an additional dose of pain medication was given. Patient's findings were discussed with attending Dr. King, and he is agreeable to discharge. Undiagnosed new problem with uncertain prognosis? @ -No Drug Therapy requiring intensive monitoring for toxicity (Heparin, Nitro, Insulin, Cardizem)? @ -No Were any procedures done? @ -No Diagnosis/symptom? @ -chronic deep vein thrombosis, left extremity pain, UTI Acute, or Chronic, or Acute on Chronic? @ -Due to urinary tract infection, chronic deep vein thrombosis Uncomplicated (without systemic symptoms) or Complicated (systemic symptoms)? @ -Uncomplicated Side effects of treatment? @ -No Exacerbation, Progression, or Severe Exacerbation? @ -No Poses a threat to life or bodily function? How? (Chest pain, [place], PR, pneumonia, PE, COPD, DKA, ARF, appy, cholecystitis, CVA, Diverticulitis, Homicidal, Suicidal, threat to staff... and all critical care pts) @ -No - Lab Data Result diagrams: 10/20/23 11:47 10/20/23 11:47 Lab Results 10/20/23 10/20/23 10/20/23 Range/Units 11:47 11:47 11:47 WBC 4.3 (3.8-10.6) k/uL RBC 3.31 L (3.80-5.40) m/uL Hgb 9.7 L (11.4-16.0) gm/dL Hct 30.2 L (34.0-46.0) % MCV 91.2 (80.0-100.0) fL MCH 29.2 (25.0-35.0) pg MCHC 32.1 (31.0-37.0) g/dL RDW 16.0 H (11.5-15.5) % Plt Count 135 L (150-450) k/uL MPV 9.4 Neutrophils % 75 % Lymphocytes % 15 % Monocytes % 8 % Eosinophils % 1 % Basophils % 0 % Neutrophils # 3.2 (1.3-7.7) k/uL Lymphocytes # 0.6 L (1.0-4.8) k/uL Monocytes # 0.4 (0-1.0) k/uL Eosinophils # 0.0 (0-0.7) k/uL Basophils # 0.0 (0-0.2) k/uL Anisocytosis Slight PT 12.0 (10.0-12.5) sec INR 1.1 (<1.2) APTT 26.9 (22.0-30.0) sec Sodium 131 L (137-145) mmol/L Potassium 3.7 (3.5-5.1) mmol/L Chloride 101 (98-107) mmol/L Carbon Dioxide 26 (22-30) mmol/L Anion Gap 4 mmol/L BUN 9 (7-17) mg/dL Creatinine 0.93 (0.52-1.04) mg/dL Est GFR (CKD-EPI)AfAm 77 (>60 ml/min/1.73 sqM) Est GFR (CKD-EPI)NonAf 67 (>60 ml/min/1.73 sqM) Glucose 300 H (74-99) mg/dL Plasma Lactic Acid [place] (0.7-2.0) mmol/L Calcium 8.1 L (8.4-10.2) mg/dL Magnesium 1.3 L (1.6-2.3) mg/dL Total Bilirubin 0.6 (0.2-1.3) mg/dL AST 93 H (14-36) U/L ALT 41 H (4-34) U/L Alkaline Phosphatase 117 (38-126) U/L Troponin I (0.000-0.034) ng/mL C-Reactive Protein 2.1 H (<1.0) mg/dL NT-Pro-B Natriuret Pep 1250 pg/mL Total Protein 5.3 L (6.3-8.2) g/dL Albumin 2.4 L (3.5-5.0) g/dL Urine Color Urine Appearance (Clear) Urine pH (5.0-8.0) Ur Specific [place] (1.001-1.035) Urine Protein (Negative) Urine Glucose (UA) (Negative) Urine Ketones (Negative) Urine Blood (Negative) Urine Nitrite (Negative) Urine Bilirubin (Negative) Urine Urobilinogen (<2.0) mg/dL Ur Leukocyte Esterase (Negative) Urine RBC (0-5) /hpf Urine WBC (0-5) /hpf Urine WBC Clumps (None) /hpf Ur Squamous Epith Cells (0-4) /hpf Urine Mucus (None) /hpf 10/20/23 10/20/23 10/20/23 Range/Units 11:47 11:47 13:00 WBC (3.8-10.6) k/uL RBC (3.80-5.40) m/uL Hgb (11.4-16.0) gm/dL Hct (34.0-46.0) % MCV (80.0-100.0) fL MCH (25.0-35.0) pg MCHC (31.0-37.0) g/dL RDW (11.5-15.5) % Plt Count (150-450) k/uL MPV Neutrophils % % Lymphocytes % % Monocytes % % Eosinophils % % Basophils % % Neutrophils # (1.3-7.7) k/uL Lymphocytes # (1.0-4.8) k/uL Monocytes # (0-1.0) k/uL Eosinophils # (0-0.7) k/uL Basophils # (0-0.2) k/uL Anisocytosis PT (10.0-12.5) sec INR (<1.2) APTT (22.0-30.0) sec Sodium (137-145) mmol/L Potassium (3.5-5.1) mmol/L Chloride (98-107) mmol/L Carbon Dioxide (22-30) mmol/L Anion Gap mmol/L BUN (7-17) mg/dL Creatinine (0.52-1.04) mg/dL Est GFR (CKD-EPI)AfAm (>60 ml/min/1.73 sqM) Est GFR (CKD-EPI)NonAf (>60 ml/min/1.73 sqM) Glucose (74-99) mg/dL Plasma Lactic Acid [place] 1.7 (0.7-2.0) mmol/L Calcium (8.4-10.2) mg/dL Magnesium (1.6-2.3) mg/dL Total Bilirubin (0.2-1.3) mg/dL AST (14-36) U/L ALT (4-34) U/L Alkaline Phosphatase (38-126) U/L Troponin I <0.012 (0.000-0.034) ng/mL C-Reactive Protein (<1.0) mg/dL NT-Pro-B Natriuret Pep pg/mL Total Protein (6.3-8.2) g/dL Albumin (3.5-5.0) g/dL Urine Color Colorless Urine Appearance Turbid H (Clear) Urine pH 5.5 (5.0-8.0) Ur Specific [place] 1.011 (1.001-1.035) Urine Protein Trace H (Negative) Urine Glucose (UA) 2+ H (Negative) Urine Ketones Negative (Negative) Urine Blood Small H (Negative) Urine Nitrite Negative (Negative) Urine Bilirubin Negative (Negative) Urine Urobilinogen <2.0 (<2.0) mg/dL Ur Leukocyte Esterase Large H (Negative) Urine RBC 20 H (0-5) /hpf Urine WBC >182 H (0-5) /hpf Urine WBC Clumps Many H (None) /hpf Ur Squamous Epith Cells <1 (0-4) /hpf Urine Mucus Rare H (None) /hpf Disposition Clinical Impression: Urinary tract infection, Deep vein thrombosis (DVT) of lower extremity Narrative: Please return to the Emergency Department if symptoms worsen or any other concerns. Please complete full course of antibiotics as prescribed. Disposition: HOME SELF-CARE Condition: Good Prescriptions: Nitrofurantoin Monohyd/M-Cryst [Macrobid] 100 mg PO Q12HR #14 cap Magnesium Oxide [Mag-Ox] 400 mg PO DAILY #14 tablet Is patient prescribed a controlled substance at d/c from ED?: No Referrals: Tramaine Tejeda MD [Primary Care Provider] - 1-2 days Time of Disposition: 14:13
[2023-10-20] MEDS: MORPHINE SULFATE 2 MG/ML SYRINGE IVP STA (11:46)
[2023-10-20 12:06] LABS: Anisocytosis Slight; Basophils % (A) 0 %; Eosinophils % (A) 1 %; HCT 30.2 % (34.0-46.0); HGB 9.7 gm/dL (11.4-16.0); Lymphocytes # (A) 0.6 k/uL (1.0-4.8); Lymphocytes % (A) 15 %; MCH 29.2 pg (25.0-35.0); MCHC 32.1 g/dL (31.0-37.0); MCV 91.2 fL (80.0-100.0); Mean Platelet Volume 9.4; Monocytes # (A) 0.4 k/uL (0-1.0); Monocytes % (A) 8 %; Neutrophils # (A) 3.2 k/uL (1.3-7.7); Neutrophils % (A) 75 %; Platelet Count 135 k/uL (150-450); RBC 3.31 m/uL (3.80-5.40); WBC 4.3 k/uL (3.8-10.6)
[2023-10-20 12:28] LABS: ALT 41 U/L (4-34); AST 93 U/L (14-36); African American GFR (CKD) 77 (>60 ml/min/1.73 sqM); Albumin 2.4 g/dL (3.5-5.0); Alkaline Phosphatase 117 U/L (38-126); Anion Gap 4 mmol/L; Blood Urea Nitrogen 9 mg/dL (7-17); C Reactive Protein 2.1 mg/dL (<1.0); Calcium 8.1 mg/dL (8.4-10.2); Carbon Dioxide 26 mmol/L (22-30); Chloride 101 mmol/L (98-107); Glucose 300 mg/dL (74-99); Magnesium 1.3 mg/dL (1.6-2.3); Non-African American GFR(CKD) 67 (>60 ml/min/1.73 sqM); Potassium 3.7 mmol/L (3.5-5.1); Sodium 131 mmol/L (137-145); Total Bilirubin 0.6 mg/dL (0.2-1.3); Total Protein 5.3 g/dL (6.3-8.2)
[2023-10-20 12:34] LABS: NT-Pro-B-Type Natriuretic Pept 1250 pg/mL
[2023-10-20 12:36] LABS: INR 1.1 (<1.2); Partial Thromboplastin Time 26.9 sec (22.0-30.0)
--- NOTE | 2023-10-20 12:40 | US ---
EXAMINATION TYPE: US venous doppler duplex LE LT DATE OF EXAM: 10/20/2023 12:11 PM COMPARISON: 07/04/2023 CLINICAL INDICATION: Female, 63 years old with history of LLE pain, hx of DVT; Patient states on 2 di fferent blood thinners. Recent right below knee amputation. History of left leg stents per patient. Left leg pain. SIDE PERFORMED: Left TECHNIQUE: The lower extremity deep venous system is examined utilizing real time linear array sonog jai with graded compression, doppler sonography and color-flow sonography. VESSELS IMAGED: Common Femoral Vein Deep Femoral Vein Greater Saphenous Vein * Femoral Vein Popliteal Vein Small Saphenous Vein * Proximal Calf Veins (* superficial vessels) Left Leg: Appears positive for DVT. Stent visualized in CFV/EIV with internal echoes. In Femoral v ein, possible calcification vs hardening of wall? Femoral vein appears small in size. IMPRESSION: Positive for DVT. Stent visualized in CFV/EIV with internal echoes. Findings similar to CT 07/04/[address] King on 10/20/2023 12:[address] Osei Robles.
--- NOTE | 2023-10-20 12:46 | XR ---
EXAMINATION TYPE: XR chest 2V DATE OF EXAM: 10/20/2023 12:19 PM CLINICAL INDICATION:Female, 63 years old with history of Weakness; COMPARISON: Chest radiographs from 05/28/2023 TECHNIQUE: XR chest 2V Frontal and lateral views of the chest. FINDINGS: Lungs/Pleura: There is no evidence of pleural effusion, focal consolidation, or pneumothorax. Pulmonary vascularity: Unremarkable. Heart/mediastinum: Cardiomediastinal silhouette is unremarkable. Musculoskeletal: Left shoulder arthroplasty appears intact. No acute osseous pathology. There is fixa tion hardware in the lower cervical spine. IMPRESSION: No acute cardiopulmonary disease/process.
[2023-10-20] MEDS: MAGNESIUM OXIDE 400 MG TAB PO STA (12:50)
[2023-10-20 13:22] LABS: Appearance,Urine Turbid (Clear); Bilirubin,Urine Negative (Negative); Blood,Urine Small (Negative); Color,Urine Colorless; Glucose,Urine (UA) 2+ (Negative); Ketones,Urine Negative (Negative); Leukocyte Esterase,Urine Large (Negative); Mucus,Urine Rare /hpf; Nitrite,Urine Negative (Negative); PH, Urine 5.5 (5.0-8.0); Protein,Urine Trace (Negative); RBC,Urine 20 /hpf (0-5); Specific Gravity,Urine 1.011 (1.001-1.035); Squamous Epithelial Cell,Urine <1 /hpf (0-4); Urobilinogen,Urine <2.0 mg/dL (<2.0); WBC,Urine >182 /hpf (0-5)
[2023-10-20] MEDS: cefTRIAXone 1,000 MG VIAL (IM USE) IM STA (15:08)
[2023-10-20] MEDS: cefTRIAXone IN SWFI 1,000 MG/10 ML SYRINGE IVP STA (15:08)
[2023-10-20] MEDS: MORPHINE SULFATE 2 MG/ML SYRINGE IVP ONE (15:09)
[2023-10-20 15:42] VITALS: BP 100/57; PULSE 82; RESP 18; TEMP 99.4
[2023-10-21 09:05] LABS: Erythrocyte Sedimentation Rate 43 mm/Hr (0-30)
== END 2023-10-20 16:03 | disposition home or self-care (01) ==
LOC: EC 10:53
DX: I82.402 Acute embolism and thrombosis of unspecified deep veins of left lower extremity (principal); N39.0 Urinary tract infection, site not specified
CPT/HCPCS: 36415; 93005; 83880; 80053; 85652; 83605; 83735; 84484; 85025; 85610; 85730; 86140; 81001; 71046; 93971; 99285; 96374; 96375; 96376; J0696; J2270

== ENCOUNTER 2023-10-22 17:47 | Observation (INO) | payer MEDICARE, OTHER ==
--- NOTE | 2023-10-22 18:17 | ED ---
General Adult HPI - General Chief complaint: Weakness Stated complaint: AMS Flu Time Seen by Provider: 10/22/23 18:00 Source: patient, EMS, RN notes reviewed, old records reviewed Mode of arrival: EMS Limitations: no limitations - History of Present Illness Initial comments: This is a 63-year-old female who is in a snf for a wound on her leg. Patient was diagnosed with influenza today and she has become weaker and weaker so they sent her to the emergency department. Patient states she feels terrible but she has no specific complaint. Patient denies shortness of breath or difficulty breathing. Patient is chest pain. Patient has abdominal pain. Patient has a headache patient has numbness weakness. - Related Data Home Medications Medication Instructions Recorded Confirmed Ergocalciferol (Vitamin D2) 1,250 mcg PO GUERRERO 04/01/23 09/19/23 [Drisdol (50,000 Iu)] Nitroglycerin Sl Tabs [Nitrostat] 0.4 mg SL Q5M PRN 04/01/23 09/19/23 Apixaban [Eliquis] 5 mg PO BID@0800,1700 05/20/23 09/19/23 Clopidogrel [Plavix] 75 mg PO DAILY@1100 05/20/23 09/19/23 DULoxetine HCL [Cymbalta] 60 mg PO BID 07/04/23 09/19/23 INSULIN ASPART (NovoLOG) [NovoLOG See Protocol SQ AC-TID 07/04/23 09/19/23 (formulary)] Magnesium Hydroxide [Milk of 7,200 mg PO DAILY PRN 07/04/23 09/19/23 Magnesia Concentrate] Metoprolol Tartrate [Lopressor] 25 mg PO BID@0800,1700 07/04/23 09/19/23 Midodrine [ProAmatine] 5 mg PO BID@0800,1700 07/04/23 09/19/23 Na Phos,M-B/Na Phos,Di-Ba [Fleet 133 ml RECTAL DAILY PRN 07/04/23 09/19/23 Adult] bisacodyL [Dulcolax] 10 mg RECTAL DAILY PRN 07/04/23 09/19/23 Benzocaine/Menthol Lozeng [Cepacol 1 lozenge MUCOUS MEM Q4HR PRN 08/09/23 09/19/23 lozenge] Fluticasone Nasal [place] [Flonase 1 spray EA NOSTRIL BID@0800,1700 08/09/23 09/19/23 Nasal [place]] Loperamide [Imodium] 1 mg PO QID PRN 08/09/23 09/19/23 Magnesium Oxide [Mag-Ox] 400 mg PO DAILY@1200 08/09/23 09/19/23 Melatonin 3 mg PO HS 08/09/23 09/19/23 Ondansetron [Zofran] 4 mg PO Q8H PRN 08/09/23 09/19/23 Potassium Chloride [Klor-Con M20] 20 meq PO DAILY 08/09/23 09/19/23 Spironolactone 25 mg PO DAILY 08/09/23 09/19/23 polyethylene glycoL 3350 [Miralax] 17 gm PO DAILY PRN 08/09/23 09/19/23 Atorvastatin Calcium [Lipitor] 80 mg PO QAM 09/16/23 09/19/23 Baclofen 5 mg PO Q8H PRN 09/16/23 09/19/23 Diphenoxylate HCl/Atropine 1 tab PO QID PRN 09/16/23 09/19/23 [Lomotil 2.5-0.025 mg Tablet] Famotidine [Pepcid] 20 mg PO DAILY 09/16/23 09/19/23 Spironolactone [Aldactone] 25 mg PO DAILY 09/16/23 09/19/23 Previous Rx's Medication Instructions Recorded Ipratropium-Albuterol Nebulize 3 ml INHALATION RT-Q6H PRN each 06/14/23 [Duoneb 0.5 mg-3 mg/3 ml Soln] Acetaminophen Tab [Tylenol] 500 mg PO Q6HR PRN tab 07/10/23 Docusate [Colace] 100 mg PO DAILY@0800 PRN #0 07/10/23 Ferrous Sulfate [Feosol] 325 mg PO DAILY #0 07/10/23 INSULIN ASPART (NovoLOG) [NovoLOG 4 unit SQ AC-TID each 07/10/23 (formulary)] Saline Nasal Gel [Enders Nasal Gel] 1 applic NASAL Q4HR PRN each 07/10/23 ALPRAZolam [Xanax] 0.25 mg PO BID PRN 3 Days #6 tab 08/15/23 DAPTOmycin [Cubicin] 500 mg IVPB Q24HR each 08/15/23 Gabapentin [Neurontin] 400 mg PO BID #6 cap 08/15/23 HYDROcodone/APAP 7.5-325MG [[place] 1 tab PO TID #9 tab 08/15/23 7.5-325] Insulin Detemir (Levemir) [Levemir] 8 unit SQ HS each 08/15/23 Magnesium Oxide [Mag-Ox] 400 mg PO DAILY #14 tablet 10/20/23 Nitrofurantoin Monohyd/M-Cryst 100 mg PO Q12HR #14 cap 10/20/23 [Macrobid] Allergies Allergy/AdvReac Type Severity Reaction Status Date / Time vancomycin Allergy Rash/Hives/and Verified 10/22/23 18:04 vomiting diarrhea/Swelling Review of Systems ROS Statement: Those systems with pertinent positive or pertinent negative responses have been documented in the HPI. ROS Other: All systems not noted in ROS Statement are negative. Past Medical History Past Medical History: Coronary Artery Disease (CAD), Diabetes Mellitus, Deep Vein Thrombosis (DVT), Vascular Disorder Additional Past Medical History / Comment(s): Recent hospitalization Aug 2023- Diarrhea, cellulitis rt AKA (AKA 06-07-23)site and PICC line placement (Power PICC SOLO2 catheter site lt arm),SKIN CA to neck. 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 Azar H+P pt c/o dysphonia. Last Myocardial Infarction Date:: 2010 History of Any Multi-Drug Resistant Organisms: MRSA Date of last positivie culture/infection: 08/09/23 MDRO Source:: Right Leg Past Surgical History: Section, Cholecystectomy, Heart Catheterization, Heart Catheterization With Stent, Orthopedic Surgery, Tonsillectomy, Tubal Ligation Additional Past Surgical History / Comment(s): Right Below Knee Amputation 04/2023, 11 Stents in left leg, fistula left thigh, full mouth teeth extraction, TRAPEASE VENA CAVA FILTER, carpel tunnel, heart stents x4 rca and lad, tumor removal from uterus. Genital warts removed, INGRID. Skin cancer removed from neck, rt great toe amputated, colonoscopy, rt rotator, left shoulder replacement, cervial fusion, rt calf debridement, rt calf skin graft (May 2023) Past Anesthesia/Blood Transfusion Reactions: No Reported Reaction Date of Last Stent Placement:: Mar 2023 Past Psychological History: Anxiety, Depression Smoking Status: Current every day smoker Past Alcohol Use History: None Reported Past Drug Use History: None Reported - Past Family History Mother Family Medical History: Cancer, Congestive Heart Failure (CHF), Diabetes Mellitus, Myocardial Infarction (SC) Additional Family Medical History / Comment(s): UTERINE CANCER Father Family Medical History: Coronary Artery Disease (CAD), Myocardial Infarction (SC) Additional Family Medical History / Comment(s): Father at age 70. Sister(s) Family Medical History: Myocardial Infarction (SC) Additional Family Medical History / Comment(s): Patient has one sister with myocardial infarction at age 55. Son(s) Family Medical History: Deep Vein Thrombosis (DVT), Pulmonary Embolus Additional Family Medical History / Comment(s): Patient has 2 sons and one has history of DVT and pulmonary embolism. General Exam - General Exam Comments Initial Comments: GENERAL: Patient is well-developed and well-nourished. Patient is nontoxic and well-hy drated and is in mild distress. ENT: Neck is soft and supple. No significant lymphadenopathy is noted. Oropharynx is clear. Moist mucous membranes. Neck has full range of motion without eliciting any pain. EYES: The sclera were anicteric and conjunctiva were pink and moist. Extraocular movements were intact and pupils were equal round and reactive to light. Eyelids were unremarkable. PULMONARY: Unlabored respirations. Good breath sounds bilaterally. No audible rales rhonchi or wheezing was noted. CARDIOVASCULAR: There is a regular rate and rhythm without any murmurs gallops or rubs. ABDOMEN: Soft and nontender with normal bowel sounds. SKIN: Skin is clear with no lesions or rashes and otherwise unremarkable. NEUROLOGIC: Patient is alert and oriented x3. Cranial nerves II through XII are grossly intact. Motor and sensory are also intact. Normal speech, volume and content. Symmetrical smile. MUSCULOSKELETAL: Normal extremities with adequate strength and full range of motion. LYMPHATICS: No significant lymphadenopathy is noted PSYCHIATRIC: Normal psychiatric evaluation. Limitations: no limitations Course Vital Signs 10/22/23 10/22/23 10/22/23 17:54 19:46 20:43 Temperature 101.6 F H 101.7 F H 98.2 F Pulse Rate 74 75 73 Respiratory 18 20 18 Rate Blood Pressure 104/81 106/52 112/56 O2 Sat by Pulse 97 94 L 96 Oximetry Medical Decision Making - Medical Decision Making EKG is interpreted by myself EKG shows a sinus rhythm at 72 bpm MN interval is 162 QRS is 89 QT interval 378 QTc is 402. Patient EKG shows no ST segment elevation or depression Was pt. sent in by a medical professional or institution ([facility], GROUNDS [employer]PER, urgent care, hospital, or snf...) When possible be specific @ -half-way sent the patient in Did you speak to anyone other than the patient for history (EMS, parent, family, police, friend...)? What history was obtained from this source @ -No Did you review nursing and triage notes (agree or disagree)? Why? @ -I reviewed and agree with nursing and triage notes Were old charts reviewed (outside hosp., previous admission, EMS record, old EKG, old radiological studies, urgent care reports/EKG's, snf records)? Report findings @ -I reviewed prior charts and prior lab work on the patient Differential Diagnosis (chest pain, altered mental status, abdominal pain women, abdominal pain men, vaginal bleeding, weakness, fever, dyspnea, syncope, headache, dizziness, GI bleed, back pain, seizure, CVA, palpatations, mental health, musculoskeletal)? @ -Differential Weakness: Hypoglycemia, shock, sepsis, hyponatremia, anemia, infection, SC, ETOH, adverse medicine reaction, overdose, stroke, this is not meant to be an all-inclusive list. EKG interpreted by me (3pts min.). @ -As above X-rays interpreted by me (1pt min.). @ -Chest x-ray shows no acute abnormality CT interpreted by me (1pt min.). @ -None done U/S interpreted by me (1pt. min.). @ -None done What testing was considered but not performed or refused? (CT, X-rays, U/S, labs)? Why? @ -None What meds were considered but not given or refused? Why? @ -None Did you discuss the management of the patient with other professionals (professionals i.e. , PA, GROUNDS KEEPER, lab, RT, psych nurse, social organization professor, manager furniture, teacher, property and supply officer, embedded case manager)? Give summary @ -I spoke with Dr. Tejeda he agreed to admit the patient admit the patient wrote admitting orders Was smoking cessation discussed for >3mins.? @ -No Was critical care preformed (if so, how long)? @ -No Were there social determinants of health that impacted care today? How? (Homelessness, low income, unemployed, alcoholism, drug addiction, tra nsportation, low edu. Level, literacy, decrease access to med. care, fci, rehab)? @ -No Was there de-escalation of care discussed even if they declined (Discuss DNR or withdrawal of care, Hospice)? DNR status @ -No What co-morbidities impacted this encounter? (DM, HTN, Smoking, COPD, CAD, Cancer, CVA, ARF, Chemo, Hep., AIDS, mental health diagnosis, sleep apnea, morbid obesity)? @ -None Was patient admitted / discharged? Hospital course, mention meds given and route, prescriptions, significant lab abnormalities, going to OR and other pertinent info. @ -Patient has influenza A according to the nursing. Patient also has a urinary tract infection patient did receive 2 g of Rocephin for this and fluids because her lactic acid was mildly elevated. I spoke with Dr. Tejeda he agreed to admit the patient to the patient wrote admitting orders. Dr. Tejeda wanted Dr. Heller on consult so I consulted Dr. Heller Undiagnosed new problem with uncertain prognosis? @ -No Drug Therapy requiring intensive monitoring for toxicity (Heparin, Nitro, Insulin, Cardizem)? @ -No Were any procedures done? @ -No Diagnosis/symptom? @ -Urinary tract infection Acute, or Chronic, or Acute on Chronic? @ -Acute Uncomplicated (without systemic symptoms) or Complicated (systemic symptoms)? @ -Complicated Side effects of treatment? @ -No Exacerbation, Progression, or Severe Exacerbation? @ -No Poses a threat to life or bodily function? How? (Chest pain, [place], SC, pneumonia, PE, COPD, DKA, ARF, appy, cholecystitis, CVA, Diverticulitis, Homicidal, Suicidal, threat to staff... and all critical care pts) @ -Yes this can lead to sepsis and endorgan dysfunction Diagnosis/symptom? @ -Influenza A Acute, or Chronic, or Acute on Chronic? @ -Acute Uncomplicated (without systemic symptoms) or Complicated (systemic symptoms)? @ -Complicated Side effects of treatment? @ -None Exacerbation, Progression, or Severe Exacerbation] @ -No Poses a threat to life or bodily function? @ -No - Lab Data Result diagrams: 10/22/23 19:04 10/22/23 19:04 Lab Results 10/22/23 10/22/23 10/22/23 Range/Units 19:04 19:04 19:04 WBC 5.1 (3.8-10.6) k/uL RBC 3.60 L (3.80-5.40) m/uL Hgb 10.3 L (11.4-16.0) gm/dL Hct 32.6 L (34.0-46.0) % MCV 90.4 (80.0-100.0) fL MCH 28.5 (25.0-35.0) pg MCHC 31.5 (31.0-37.0) g/dL RDW 15.9 H (11.5-15.5) % Plt Count 138 L (150-450) k/uL MPV 9.4 Neutrophils % 79 % Lymphocytes % 8 % Monocytes % 7 % Eosinophils % 5 % Basophils % 0 % Neutrophils # 4.1 (1.3-7.7) k/uL Lymphocytes # 0.4 L (1.0-4.8) k/uL Monocytes # 0.4 (0-1.0) k/uL Eosinophils # 0.3 (0-0.7) k/uL Basophils # 0.0 (0-0.2) k/uL Hypochromasia Slight PT 11.6 (10.0-12.5) sec INR 1.1 (<1.2) APTT 29.9 (22.0-30.0) sec Sodium 132 L (137-145) mmol/L Potassium 4.1 (3.5-5.1) mmol/L Chloride 100 (98-107) mmol/L Carbon Dioxide 24 (22-30) mmol/L Anion Gap 8 mmol/L BUN 12 (7-17) mg/dL Creatinine 1.01 (0.52-1.04) mg/dL Est GFR (CKD-EPI)AfAm 69 (>60 ml/min/1.73 sqM) Est GFR (CKD-EPI)NonAf 60 (>60 ml/min/1.73 sqM) Glucose 159 H (74-99) mg/dL Plasma Lactic Acid M[place] (0.7-2.0) mmol/L Calcium 8.3 L (8.4-10.2) mg/dL Total Bilirubin 0.7 (0.2-1.3) mg/dL AST 121 H (14-36) U/L ALT 48 H (4-34) U/L Alkaline Phosphatase 123 (38-126) U/L Total Protein 5.9 L (6.3-8.2) g/dL Albumin 2.7 L (3.5-5.0) g/dL Urine Color Urine Appearance (Clear) Urine pH (5.0-8.0) Ur Specific [place] (1.001-1.035) Urine Protein (Negative) Urine Glucose (UA) (Negative) Urine Ketones (Negative) Urine Blood (Negative) Urine Nitrite (Negative) Urine Bilirubin (Negative) Urine Urobilinogen (<2.0) mg/dL Ur Leukocyte Esterase (Negative) Urine RBC (0-5) /hpf Urine WBC (0-5) /hpf Urine WBC Clumps (None) /hpf Urine Mucus (None) /hpf 10/22/23 10/22/23 Range/Units 19:04 19:04 WBC (3.8-10.6) k/uL RBC (3.80-5.40) m/uL Hgb (11.4-16.0) gm/dL Hct (34.0-46.0) % MCV (80.0-100.0) fL MCH (25.0-35.0) pg MCHC (31.0-37.0) g/dL RDW (11.5-15.5) % Plt Count (150-450) k/uL MPV Neutrophils % % Lymphocytes % % Monocytes % % Eosinophils % % Basophils % % Neutrophils # (1.3-7.7) k/uL Lymphocytes # (1.0-4.8) k/uL Monocytes # (0-1.0) k/uL Eosinophils # (0-0.7) k/uL Basophils # (0-0.2) k/uL Hypochromasia PT (10.0-12.5) sec INR (<1.2) APTT (22.0-30.0) sec Sodium (137-145) mmol/L Potassium (3.5-5.1) mmol/L Chloride (98-107) mmol/L Carbon Dioxide (22-30) mmol/L Anion Gap mmol/L BUN (7-17) mg/dL Creatinine (0.52-1.04) mg/dL Est GFR (CKD-EPI)AfAm (>60 ml/min/1.73 sqM) Est GFR (CKD-EPI)NonAf (>60 ml/min/1.73 sqM) Glucose (74-99) mg/dL Plasma Lactic Acid Mynor 2.1 H* (0.7-2.0) mmol/L Calcium (8.4-10.2) mg/dL Total Bilirubin (0.2-1.3) mg/dL AST (14-36) U/L ALT (4-34) U/L Alkaline Phosphatase (38-126) U/L Total Protein (6.3-8.2) g/dL Albumin (3.5-5.0) g/dL Urine Color Yellow Urine Appearance Turbid H (Clear) Urine pH 5.5 (5.0-8.0) Ur Specific [place] 1.020 (1.001-1.035) Urine Protein 1+ H (Negative) Urine Glucose (UA) Negative (Negative) Urine Ketones Negative (Negative) Urine Blood Moderate H (Negative) Urine Nitrite Negative (Negative) Urine Bilirubin Negative (Negative) Urine Urobilinogen <2.0 (<2.0) mg/dL Ur Leukocyte Esterase Large H (Negative) Urine RBC 92 H (0-5) /hpf Urine WBC >182 H (0-5) /hpf Urine WBC Clumps Many H (None) /hpf Urine Mucus Few H (None) /hpf Disposition Clinical Impression: Influenza A, Urinary tract infection Disposition: ADMITTED IP TO THIS [facility] Time of Disposition: 20:59
[2023-10-22] MEDS: IBUPROFEN 600 MG TAB PO STA (18:54)
[2023-10-22] MEDS: ACETAMINOPHEN TAB 500 MG TAB PO STA (18:55)
[2023-10-22] MEDS: SODIUM CHLORIDE 0.9% 500 ML 500 ML IV SCH (19:08)
[2023-10-22 19:21] LABS: Basophils % (A) 0 %; Eosinophils # (A) 0.3 k/uL (0-0.7); Eosinophils % (A) 5 %; HCT 32.6 % (34.0-46.0); HGB 10.3 gm/dL (11.4-16.0); Hypochromasia Slight; Lymphocytes # (A) 0.4 k/uL (1.0-4.8); Lymphocytes % (A) 8 %; MCH 28.5 pg (25.0-35.0); MCHC 31.5 g/dL (31.0-37.0); MCV 90.4 fL (80.0-100.0); Mean Platelet Volume 9.4; Monocytes # (A) 0.4 k/uL (0-1.0); Monocytes % (A) 7 %; Neutrophils # (A) 4.1 k/uL (1.3-7.7); Neutrophils % (A) 79 %; Platelet Count 138 k/uL (150-450); RDW 15.9 % (11.5-15.5); WBC 5.1 k/uL (3.8-10.6)
--- NOTE | 2023-10-22 19:27 | XR ---
EXAMINATION TYPE: XR chest 2V DATE OF EXAM: 10/22/2023 7:23 PM CLINICAL INDICATION:Female, 63 years old with history of Fever; COMPARISON: Chest radiographs from 10/20/2023 TECHNIQUE: XR chest 2V Frontal and lateral views of the chest. FINDINGS: Lungs/Pleura: There is no evidence of pleural effusion, focal consolidation, or pneumothorax. Pulmonary vascularity: Unremarkable. Heart/mediastinum: Cardiomediastinal silhouette is enlarged and stable. Atherosclerotic calcificatio ns are seen in the aorta. Musculoskeletal: No acute osseous pathology. There is fixation hardware in the lower cervical spine. IMPRESSION: No acute cardiopulmonary disease/process.
[2023-10-22 19:30] LABS: INR 1.1 (<1.2); Partial Thromboplastin Time 29.9 sec (22.0-30.0); Prothrombin Time 11.6 sec (10.0-12.5)
[2023-10-22 19:31] LABS: ALT 48 U/L (4-34); AST 121 U/L (14-36); African American GFR (CKD) 69 (>60 ml/min/1.73 sqM); Albumin 2.7 g/dL (3.5-5.0); Alkaline Phosphatase 123 U/L (38-126); Anion Gap 8 mmol/L; Blood Urea Nitrogen 12 mg/dL (7-17); Calcium 8.3 mg/dL (8.4-10.2); Carbon Dioxide 24 mmol/L (22-30); Chloride 100 mmol/L (98-107); Glucose 159 mg/dL (74-99); Non-African American GFR(CKD) 60 (>60 ml/min/1.73 sqM); Potassium 4.1 mmol/L (3.5-5.1); Sodium 132 mmol/L (137-145); Total Bilirubin 0.7 mg/dL (0.2-1.3); Total Protein 5.9 g/dL (6.3-8.2)
[2023-10-22 20:24] LABS: Appearance,Urine Turbid (Clear); Bilirubin,Urine Negative (Negative); Blood,Urine Moderate (Negative); Color,Urine Yellow; Glucose,Urine (UA) Negative (Negative); Ketones,Urine Negative (Negative); Leukocyte Esterase,Urine Large (Negative); Mucus,Urine Few /hpf; Nitrite,Urine Negative (Negative); PH, Urine 5.5 (5.0-8.0); Protein,Urine 1+ (Negative); RBC,Urine 92 /hpf (0-5); Urobilinogen,Urine <2.0 mg/dL (<2.0); WBC,Urine >182 /hpf (0-5)
[2023-10-22] MEDS: SODIUM CHLORIDE 0.9% 500 ML 500 ML IV ONE (20:42)
[2023-10-22] MEDS: SODIUM CHLORIDE 0.9% 1,000 ML IV ONE (21:37)
[2023-10-22] MEDS: cefTRIAXone IN SWFI 1,000 MG/10 ML SYRINGE IVP STA ×2 (21:38→21:42)
[2023-10-23] MEDS ORDERED: BENZOCAINE 20 % GEL 11.9 GM TUBE MM PRN (00:26)
[2023-10-23] MEDS ORDERED: SALINE NASAL GEL 14.1 GM TUBE NASAL PRN (00:26)
[2023-10-23] MEDS ORDERED: NITROGLYCERIN SL TABS 0.4 MG TAB SUBLINGUAL PRN (00:26)
[2023-10-23] MEDS ORDERED: bisacodyL 10 MG SUPP RECTAL PRN (00:26)
[2023-10-23] MEDS ORDERED: NA PHOS,M-B/NA PHOS,DI-BA 133 ML ENEMA RECTAL PRN (00:26)
[2023-10-23] MEDS ORDERED: MAGNESIUM HYDROXIDE 2,400 MG/30 ML CUP PO PRN (00:26)
[2023-10-23] MEDS ORDERED: ONDANSETRON 4 MG TAB PO PRN (00:26)
[2023-10-23] MEDS ORDERED: polyethylene glycoL 3350 17 GM POWD.PACK PO PRN (00:26)
[2023-10-23] MEDS ORDERED: BENZOCAINE 20% HEMORRHOIDAL OINT 28GM RECTAL PRN (00:26)
[2023-10-23] MEDS ORDERED: IPRATROPIUM-ALBUTEROL 3 ML NEB INHALATION PRN (00:26)
[2023-10-23] MEDS: HYDROcodone/APAP 7.5-325MG 1 EACH TAB PO SCH (00:43)
[2023-10-23 05:48] LABS: Glucose,Whole Blood 263 mg/dL (70-110)
[2023-10-23] MEDS: INSULIN ASPART (NovoLOG) 100 UNIT/ML VIAL SQ SCH ×2 (06:58)
[2023-10-23] MEDS: MIDODRINE 5 MG TAB PO SCH (06:58)
[2023-10-23] MEDS ORDERED: DOCUSATE 100 MG CAP PO PRN (08:00)
[2023-10-23] MEDS: FLUTICASONE 50MCG/SPRAY NASAL 16GM EA NOSTRIL SCH (08:42)
[2023-10-23] MEDS: APIXABAN 5 MG TAB PO SCH (08:43)
[2023-10-23] MEDS: SPIRONOLACTONE 25 MG TAB PO SCH (08:43)
[2023-10-23] MEDS: GABAPENTIN 400 MG CAP PO SCH (08:43)
[2023-10-23] MEDS: FAMOTIDINE 20 MG TAB PO SCH (08:43)
[2023-10-23] MEDS: FERROUS SULFATE 325 MG TAB PO SCH (08:43)
[2023-10-23] MEDS: METOPROLOL TARTRATE 25 MG TAB PO SCH (08:43)
[2023-10-23] MEDS: POTASSIUM CHLORIDE ER 20 MEQ TAB.ER PO SCH (08:43)
[2023-10-23] MEDS: DULoxetine HCL 60 MG CAPSULE.DR PO SCH (08:44)
[2023-10-23] MEDS: MAGNESIUM OXIDE 400 MG TAB PO SCH (08:44)
[2023-10-23] MEDS: NITROFURANTOIN MONOHYD/M-CRYST 100 MG CAP PO SCH (08:44)
[2023-10-23] MEDS: OSELTAMIVIR 75 MG CAP PO SCH (08:44)
[2023-10-23] MEDS: BACITRACIN ZINC 500 UNIT/GM OINT 28.4 GM TUBE TOPICAL SCH (08:48)
[2023-10-23] MEDS: BENZOCAINE/MENTHOL LOZENG 1 EACH LOZENGE MUCOUS MEM PRN (08:55)
--- NOTE | 2023-10-23 10:28 | P.CONS ---
History of Present Illness - Reason for Consult Consult date: 10/23/23 wound care - History of Present Illness This is a 63-year-old patient who underwent a right [id number] amputation back in August. She has been utilizing a negative pressure wound VAC while she has been in extended-care facility. Patient states that she is tolerating the wound VAC without any difficulties. The wound VAC was removed patient has an open ulceration measuring approximately 1.5 x 0.5 x 0.2 cm. Granulation seen throughout the wound bed minimal slough and nonviable tissue present. The wound edges are attached to the wound base no tunneling or undermining is noted. Patient's past medical history is significant for coronary artery disease, diabetes, DVT CVA peripheral arterial disease, and a current every day smoker. Review Of Systems: Constitutional: No fever, no chills, no night sweats. No weight change. No weakness, fatigue or lethargy. No daytime sleepiness. Integumentary:reports wounds, no lesions. No rash or pruritus. No unusual bruising. No change in hair or nails. Physical exam: General Appearance: Alert, cooperative, no distress, appears stated age. Skin: See HPI all other Skin color, texture, tugor normal, no rashes or lesions. Neurologic: Alert oriented x3 Assessment: 1. Nonhealing ulceration with fat layer exposure right amputation site 2. Diabetes with skin ulceration 3. Arthrosclerosis with ulceration right thigh Plan: 1. Discontinue negative pressure wound VAC. Apply honey gel and bordered foam to the site changing Saturday. Continue with wound care upon discharge. Thank you for the consultation any questions please contact the wound care center DNP note has been reviewed and discussed with Dr. Gan and the impression and plan of care has been directed as dictated. Past Medical History Past Medical History: Coronary Artery Disease (CAD), Diabetes Mellitus, Deep Vein Thrombosis (DVT), Vascular Disorder Additional Past Medical History / Comment(s): Recent hospitalization Aug 2023- Diarrhea, cellulitis rt AKA (AKA 06-07-23)site and PICC line placement (Power PICC SOLO2 catheter site lt arm),SKIN CA to neck. 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 Azar H+P pt c/o dysphonia. Last Myocardial Infarction Date:: 2010 History of Any Multi-Drug Resistant Organisms: MRSA Year Discovered:: 08/09/23 MDRO Source:: Right Leg Past Surgical History: Section, Cholecystectomy, Heart Catheterization, Heart Catheterization With Stent, Orthopedic Surgery, Tonsillectomy, Tubal Ligation Additional Past Surgical History / Comment(s): Right Below Knee Amputation 04/2023, 11 Stents in left leg, fistula left thigh, full mouth teeth extraction, TRAPEASE VENA CAVA FILTER, carpel tunnel, heart stents x4 rca and lad, tumor removal from uterus. Genital warts removed, INGRID. Skin cancer removed from neck, rt great toe amputated, colonoscopy, rt rotator, left shoulder replacement, cervial fusion, rt calf debridement, rt calf skin graft (May 2023) Past Anesthesia/Blood Transfusion Reactions: No Reported Reaction Date of Last Stent Placement:: Mar 2023 Past Psychological History: Anxiety, Depression Additional Psychological History / Comment(s): Depression r/t health issues. Smoking Status: Current every day smoker Past Alcohol Use History: None Reported Additional Past Alcohol Use History / Comment(s): STARTED SMOKING IN 1988 SMOKES 1/2 PPD Past Drug Use History: None Reported - Past Family History Mother Family Medical History: Cancer, Congestive Heart Failure (CHF), Diabetes Mellitus, Myocardial Infarction (SD) Additional Family Medical History / Comment(s): UTERINE CANCER Father Family Medical History: Coronary Artery Disease (CAD), Myocardial Infarction (SD) Additional Family Medical History / Comment(s): Father at age 70. Sister(s) Family Medical History: Myocardial Infarction (SD) Additional Family Medical History / Comment(s): Patient has one sister with myocardial infarction at age 55. Son(s) Family Medical History: Deep Vein Thrombosis (DVT), Pulmonary Embolus Additional Family Medical History / Comment(s): Patient has 2 sons and one has history of DVT and pulmonary embolism. Medications and Allergies Home Medications Medication Instructions Recorded Confirmed Type Ergocalciferol (Vitamin D2) 1,250 mcg PO GUERRERO@0800 04/01/23 10/22/23 History [Drisdol (50,000 Iu)] Nitroglycerin Sl Tabs [Nitrostat] 0.4 mg SL Q5M PRN 04/01/23 10/22/23 History Apixaban [Eliquis] 5 mg PO BID@0800,1700 05/20/23 10/22/23 History Clopidogrel [Plavix] 75 mg PO DAILY@1100 05/20/23 10/22/23 History DULoxetine HCL [Cymbalta] 60 mg PO BID@0800,1700 07/04/23 10/22/23 History INSULIN ASPART (NovoLOG) [NovoLOG See Protocol SQ ACHS 07/04/23 10/22/23 History (formulary)] Magnesium Hydroxide [Milk of 7,200 mg PO DIRECTED PRN 07/04/23 10/22/23 History Magnesia Concentrate] Metoprolol Tartrate [Lopressor] 25 mg PO BID@0800,1700 07/04/23 10/22/23 History Midodrine [ProAmatine] 5 mg PO BID@0800,1700 07/04/23 10/22/23 History Na Phos,M-B/Na Phos,Di-Ba [Fleet 133 ml RECTAL DAILY PRN 07/04/23 10/22/23 History Adult] bisacodyL [Dulcolax] 10 mg RECTAL DAILY PRN 07/04/23 10/22/23 History Acetaminophen Tab [Tylenol] 500 mg PO Q6HR PRN tab 07/10/23 10/22/23 Rx Docusate [Colace] 100 mg PO DAILY@0800 PRN #0 07/10/23 10/22/23 Rx Saline Nasal Gel [[place] Nasal Gel] 1 applic NASAL Q4HR PRN each 07/10/23 10/22/23 Rx Benzocaine/Menthol Lozeng [Cepacol 1 lozenge MUCOUS MEM Q4HR PRN 08/09/23 10/22/23 History lozenge] Fluticasone Nasal [place] [Flonase 1 spr EA NOSTRIL BID@0800,1700 08/09/23 10/22/23 History Nasal [place]] Loperamide [Imodium] 2 mg PO QID PRN 08/09/23 10/22/23 History Magnesium Oxide [Mag-Ox] 400 mg PO DAILY@0800 08/09/23 10/22/23 History Melatonin 3 mg PO HS 08/09/23 10/22/23 History Ondansetron [Zofran] 4 mg PO Q8H PRN 08/09/23 10/22/23 History Potassium Chloride [Klor-Con M20] 20 meq PO DAILY@0800 08/09/23 10/22/23 History Spironolactone 25 mg PO DAILY@0800 08/09/23 10/22/23 History polyethylene glycoL 3350 [Miralax] 17 gm PO DAILY PRN 08/09/23 10/22/23 History ALPRAZolam [Xanax] 0.25 mg PO BID PRN 3 Days #6 tab 08/15/23 10/22/23 Rx Atorvastatin Calcium [Lipitor] 80 mg PO DAILY@1700 09/16/23 10/22/23 History Baclofen 5 mg PO Q8H PRN 09/16/23 10/22/23 History Diphenoxylate HCl/Atropine 1 tab PO QID 09/16/23 10/22/23 History [Lomotil 2.5-0.025 mg Tablet] Famotidine [Pepcid] 20 mg PO DAILY@0800 09/16/23 10/22/23 History Bacitracin Zinc Oint 1 applic TOPICAL DAILY 10/22/23 10/22/23 History DAPTOmycin [Cubicin] 500 mg IVPB DAILY@1800 10/22/23 10/22/23 History Ferrous Sulfate [Feosol] 325 mg PO DAILY@0800 10/22/23 10/22/23 History Gabapentin [Neurontin] 400 mg PO BID@0800,2100 10/22/23 10/22/23 History HYDROcodone/APAP 7.5-325MG [[place]hing[place] 1 tab PO TID@0600,1400,2100 10/22/23 10/22/23 History 7.5-325] INSULIN ASPART (NovoLOG) [NovoLOG 4 unit SQ TID@0800,1200,1700 10/22/23 10/22/23 History (formulary)] Insulin Detemir (Levemir) [Levemir] 15 unit SQ HS 10/22/23 10/22/23 History Ipratropium-Albuterol Nebulize 3 ml INHALATION RT-Q6H PRN 10/22/23 10/22/23 History [Duoneb 0.5 mg-3 mg/3 ml Soln] Nitrofurantoin Monohyd/M-Cryst 100 mg PO Q12HR@0800,2100 10/22/23 10/22/23 Hist ory [Macrobid] Orajel 3x Gel 1 applic DENTAL TID PRN 10/22/23 10/22/23 History (Benzocaine/Menthol-Zinc Chloride 20-0.26-0.15%) Oseltamivir [Tamiflu] 75 mg PO BID@0800,1700 10/22/23 10/22/23 History Phenyleph/Pramoxin/Glycr/W.pet 1 applic RECTAL TID PRN 10/22/23 10/22/23 History [Preparation H Cream] Allergies Allergy/AdvReac Type Severity Reaction Status Date / Time vancomycin Allergy Rash/Hives/and Verified 10/22/23 21:57 vomiting diarrhea/Swelling Physical Exam Vitals: Vital Signs Temp Pulse Pulse Resp BP BP Pulse Ox 10/23/23 07:20 97.7 F 61 16 96/61 98 10/23/23 05:50 113/75 10/23/23 01:13 97.4 F L 60 13 90/51 99 10/23/23 00:53 105/52 10/22/23 23:08 97.5 F L 59 L 14 85/50 100 10/22/23 20:43 98.2 F 73 18 112/56 96 10/22/23 19:46 101.7 F H 75 20 106/52 94 L 10/22/23 17:54 101.6 F H 74 18 104/81 97 Intake and Output 10/22/23 10/23/23 10/23/23 22:59 06:59 14:59 Other: # Voids 1 Weight 93.894 kg 93.894 kg Results CBC & Chem 7: 10/22/23 19:04 10/22/23 19:04 Labs: Abnormal Lab Results - Last 24 Hours (Table) 10/22/23 10/22/23 10/22/23 Range/Units 19:04 19:04 19:04 RBC 3.60 L (3.80-5.40) m/uL Hgb 10.3 L (11.4-16.0) gm/dL Hct 32.6 L (34.0-46.0) % RDW 15.9 H (11.5-15.5) % Plt Count 138 L (150-450) k/uL Lymphocytes # 0.4 L (1.0-4.8) k/uL Sodium 132 L (137-145) mmol/L Glucose 159 H (74-99) mg/dL POC Glucose (mg/dL) (70-110) mg/dL Plasma Lactic Acid Mynor 2.1 H* (0.7-2.0) mmol/L Calcium 8.3 L (8.4-10.2) mg/dL AST 121 H (14-36) U/L ALT 48 H (4-34) U/L Total Protein 5.9 L (6.3-8.2) g/dL Albumin 2.7 L (3.5-5.0) g/dL Urine Appearance (Clear) Urine Protein (Negative) Urine Blood (Negative) Ur Leukocyte Esterase (Negative) Urine RBC (0-5) /hpf Urine WBC (0-5) /hpf Urine WBC Clumps (None) /hpf Urine Mucus (None) /hpf 10/22/23 10/23/23 Range/Units 19:04 05:46 RBC (3.80-5.40) m/uL Hgb (11.4-16.0) gm/dL Hct (34.0-46.0) % RDW (11.5-15.5) % Plt Count (150-450) k/uL Lymphocytes # (1.0-4.8) k/uL Sodium (137-145) mmol/L Glucose (74-99) mg/dL POC Glucose (mg/dL) 263 H (70-110) mg/dL Plasma Lactic Acid Mynor (0.7-2.0) mmol/L Calcium (8.4-10.2) mg/dL AST (14-36) U/L ALT (4-34) U/L Total Protein (6.3-8.2) g/dL Albumin (3.5-5.0) g/dL Urine Appearance Turbid H (Clear) Urine Protein 1+ H (Negative) Urine Blood Moderate H (Negative) Ur Leukocyte Esterase Large H (Negative) Urine RBC 92 H (0-5) /hpf Urine WBC >182 H (0-5) /hpf Urine WBC Clumps Many H (None) /hpf Urine Mucus Few H (None) /hpf Assessment and Plan (1) 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 layer exposed Current Visit: Yes Status: Acute Code(s): L97.112 - NON-PRS CHRONIC ULCER OF RIGHT THIGH W FAT LAYER EXPOSED SNOMED Code(s): 91967132874514941 (2) Atherosclerosis of upper [place] arteries of right leg with ulceration of thigh Current Visit: Yes Status: Acute Code(s): I70.231 - ATHSCL [place] ARTERIES OF RIGHT LEG W ULCERATION OF THIGH SNOMED Code(s): 1442217145 (3) Type 2 diabetes mellitus with other skin ulcer Current Visit: No Status: Acute Code(s): E11.622 - TYPE 2 DIABETES MELLITUS WITH OTHER SKIN ULCER; L98.499 - NON-PRESSURE CHRONIC ULCER OF SKIN OF SITES W UNSP SEVERITY SNOMED Code(s): 881383143
[2023-10-23 11:30] LABS: Glucose,Whole Blood 301 mg/dL (70-110)
[2023-10-23] MEDS: DIPHENOX-ATROP 2.5-0.025 MG 1 EACH TAB PO SCH (11:32)
[2023-10-23] MEDS: CLOPIDOGREL 75 MG TAB PO SCH (11:47)
[2023-10-23] MEDS: LOPERAMIDE 2 MG CAP PO PRN (11:47)
--- NOTE | 2023-10-23 14:44 | P.HPIM ---
History of Present Illness H&P Date: 10/23/23 HISTORY OF PRESENT ILLNESS This is a 63-year-old female patient of mine with history of CAD with multiple cardiac stents in mid RCA, mid LAD, obtuse marginal branch and followed by Dr. Bill closely, peripheral artery disease with previous stenting done as well has amputation of the right great toe secondary to osteomyelitis, CVA with no residual deficits, hypertension, COPD, diabetes mellitus type 2, previous multiple DVT and PE requiring chronic anticoagulation on eliquis, history of GI bleed secondary to antral gastritis, esophagitis, vitamin D deficiency, autonomic hypotension on midodrine, history of left humerus fracture, history of PAD post right AKA and CAD post PCI of the RCA with intermediate disease of the LAD, patient was recently seen at the extended care facility [facility] where she was complaining of increased pain in the left lower extremity, she was feeling sick with low-grade temperature she was swabbed for influenza AMB along with COVID-19, she was sent to the ER for evaluation for possible DVT, that was on 10/20/2023 had a venous Doppler that showed evidence of DVT of the right common femoral vein with multiple stents in place, she was found to have a UTI, she was placed on Macrobid even though the patient was on daptomycin I believe until the of this month, was sent back to [facility], she was seen by Courtney the [facility] level provider at [facility] and she made the decision for the patient to be transferred back to [facility] because of not feeling well worried about sepsis, she was hypotensive with a low-grade temperature, with minimal encephalopathy, patient did appear to be a bit dehydrated, she was started on IV fluid resuscitation, she was placed back on her Tamiflu 75 mg orally twice every day, she was also kept on Macrobid along with daptomycin, she was admitted to the hospital was seen in consultation by vascular surgery for DVT and PAD of the left lower extremity as well as Dr. Heller for her influenza A, she is sitting up in bed in no apparent distress, her son was at the bedside, he was updated about her current condition she appears to be quite stable likely will be transferred back to [facility] tomorrow morning. REVIEW OF SYSTEMS Constitutional: positive for fever, No chills, no night sweats. Reports weight loss. Reports weakness, Reports fatigue no lethargy. NO daytime sleepiness. HEENT: No headache. positive for dizziness. No nasal drainage or congestion. No epistaxis. No sore throat. Lungs: minimal shortness of breath, congested cough, no sputum production. No wheezing. Cardiovascular: No chest pain, no lower extremity edema. No palpitations. No paroxysmal nocturnal dyspnea. No orthopnea. No lightheadedness or dizziness. No syncopal episodes. Abdominal: Reports no abdominal pain. Reports nausea, no vomiting. positive for diarrhea. No constipation. No bloody or tarry stools. good appetite. Genitourinary: No dysuria, increased frequency, urgency. No urinary retention. Musculoskeletal: No myalgias. positive for muscle weakness, reports balance issues. Integumentary: Right AKA with minima erythema to the side with minimal drainage Neurologic: No aphasia. No facial droop. No change in mentation. No head injury. No headache. No paralysis. No paresthesia. Psychiatric: Reports depression. Reports anxiety. No mood swings. Endocrine: abnormal blood sugars. positive for weight change. No excessive sweating or thirst. No cold intolerance. MEDICAL HISTORY Coronary artery disease with multiple cardiac stents in the RCA, mid LAD, obtuse marginal branch Peripheral artery disease with previous stenting Right great toe osteomyelitis status post amputation CVA with no residual deficits Hypertension Hyperlipidemia COPD Diabetes mellitus type 2 Multiple DVT and PE on chronic anticoagulation History of GI bleed secondary to antral gastritis and esophagitis Vitamin D deficiency Orthostatic hypotension SURGICAL HISTORY Cholecystectomy Tonsillectomy Tubal ligation 11 stents in the left leg Full teeth extraction Trapeze vena cava filter Carpal tunnel release Coronary artery stents 4 to the RCA, LAD, obtuse marginal Tumor removed from the uterus will INGRID Skin cancer removal from the neck Right great toe amputation Colonoscopy and EGD I&D right groin abscess Anterior approach cervical disc fusion. SOCIAL HISTORY Patient is a smoker of about half a pack per day since 1993 and quit prior to her cervical surgery. No alcohol use, illicit drug use. Patient lives at home with her . FAMILY HISTORY Mother has history of uterine cancer, diabetes, myocardial infarction, heart failure. Father at age 70 from myocardial infarction. Patient has one sister and she had a myocardial infarction at age 55. Patient has 2 sons and one has history of DVT and pulmonary embolism. PHYSICAL EXAMINATION Gen: This is a 63-year-old female. She is resting in bed i no acute distress HEENT: Head is atraumatic, normocephalic. Pupils equal, round. Sclerae is anicteric. Mucous members of the mouth are somewhat dry. NECK: Supple. No JVD. No lymphadenopathy. No thyromegaly. LUNGS: Clear to auscultation. No wheezes or rhonchi. No intercostal retractions. 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 ABDOMEN: Soft, non tender non distended and no rebound or guarding positive bowel sounds EXTREMITIES: Right above-knee amputation with small wound to the side off the wound vac NEUROLOGICAL: Patient is awake, alert and oriented x3. Cranial nerves 2 through 12 are grossly intact muscle power were 4 out of 5 in upper extremity is, and 3 out of 5 in the left lower extremity. She does have a right above-knee amputation. ASSESSMENT AND PLAN 1. Influenza A with SIRS. Continue Tamiflu 75 mg twice every day, continue with supportive care, consult pulmonary 2. Acute/chronic DVT of the left common femoral vein. Patient has been on Eliquis also she does appear to have significant PAD, we will consult vascular surgery for further recommendation. Continue current pain management with hydrocodone as the patient pain continues to be the same from the knee down. 3. Coronary artery disease with recent stent of the RCA due to recent in-stent restenosis. Patient has had previous multiple cardiac stents to the RCA and mid LAD, obtuse marginal branch. Continue patient on Plavix 75 mg daily, Lopressor 25 mg twice daily, Atorvastatin 80 mg po daily . 4. Diabetes mellitus type 2 uncontrolled with hypoglycemia. we will continue with Humalog 4 units AC meals tid , we will continue Levemir 18 units at bedtime, along with a sliding scale insulin. 5. Hyperlipidemia. Continue Atorvastatin 80 mg po daily, monito the patient lipid panel, keep LDL 55-70. 6. Chronic DVT and PEs. Continue patient on eliquis 5 mg twice daily. 7. Orthostatic hypotension continue patient on Midodrin 5 mg po tid 8. Hypertension and hypertensive cardiovascular disease. Continue metoprolol 25 mg orally twice every day. 9. Gastroesophageal reflux disease and GI prophylaxis. Continue Pantoprazole 40 mg daily and Pepcid 20 mg once every day. 10. Diabetic neuropathy. we will continue wit Gabapentin 400 mg po tid. 11. Generalized anxiety disorder, recurrent depression. Continue Cymbalta 60 mg po bid 13. DVT prophylaxis. Continue Eliquis 5 mg po bid 14. GI prophylaxis. Continue patient on pantoprazole 40 mg once every day as well as famotidine 20 mg once every day. 15. Diabetic polyneuropathy. Continue gabapentin 400 mg orally twice every day. 16. Orthostatic hypotension or dysautonomia. Continue patient on midodrine 5 mg orally twice every day. 17. Admit to inpatient. Estimate length of stay 2 midnights. 18. Full code. Past Medical History Past Medical History: Coronary Artery Disease (CAD), Diabetes Mellitus, Deep Vein Thrombosis (DVT), Vascular Disorder Additional Past Medical History / Comment(s): Recent hospitalization Aug 2023- Diarrhea, cellulitis rt AKA (AKA 06-07-23)site and PICC line placement (Power PICC SOLO2 catheter site lt arm),SKIN CA to neck. 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, NEUROPATHY lt leg and foot, Mechanical stand x2, .Mutiple DVT-lt leg, stomach and lungs,mesentaric thrombosis x2 & PE, PAD, chronic pain syndrome, ddd lumbar region w/radiculopathy, HISTORY OF FALL 01/07/20 , tore rt rotator cuff, pancreatitis, fatty liver, per Wendie at [facility] 09-16-23 pt has skin tears to both arms-rt is open and lt is healed, Pt states she's "forgetful", per Dr. Azar H+P pt c/o dysphonia. Last Myocardial Infarction Date:: 2010 History of Any Multi-Drug Resistant Organisms: MRSA Date of last positivie culture/infection: 08/09/23 MDRO Source:: Right Leg Past Surgical History: Section, Cholecystectomy, Heart Catheterization, Heart Catheterization With Stent, Orthopedic Surgery, Tonsillectomy, Tubal Ligation Additional Past Surgical History / Comment(s): Right Below Knee Amputation 04/2023, 11 Stents in left leg, fistula left thigh, full mouth teeth extraction, TRAPEASE VENA CAVA FILTER, carpel tunnel, heart stents x4 rca and lad, tumor removal from uterus. Genital warts removed, INGRID. Skin cancer removed from neck, rt great toe amputated, colonoscopy, rt rotator, left shoulder replacement, cervial fusion, rt calf debridement, rt calf skin graft (May 2023) Past Anesthesia/Blood Transfusion Reactions: No Reported Reaction Date of Last Stent Placement:: Mar 2023 Past Psychological History: Anxiety, Depression Additional Psychological History / Comment(s): Depression r/t health issues. Smoking Status: Current every day smoker Past Alcohol Use History: None Reported Additional Past Alcohol Use History / Comment(s): STARTED SMOKING IN 1988 SMOKES 1/2 PPD Past Drug Use History: None Reported - Past Family History Mother Family Medical History: Cancer, Congestive Heart Failure (CHF), Diabetes Mellitus, Myocardial Infarction ([place]) Additional Family Medical History / Comment(s): UTERINE CANCER Father Family Medical History: Coronary Artery Disease (CAD), Myocardial Infarction ([place]) Additional Family Medical History / Comment(s): Father at age 70. Sister(s) Family Medical History: Myocardial Infarction ([place]) Additional Family Medical History / Comment(s): Patient has one sister with myocardial infarction at age 55. Son(s) Family Medical History: Deep Vein Thrombosis (DVT), Pulmonary Embolus Additional Family Medical History / Comment(s): Patient has 2 sons and one has history of DVT and pulmonary embolism. Medications and Allergies Home Medications Medication Instructions Recorded Confirmed Type Ergocalciferol (Vitamin D2) 1,250 mcg PO GUERRERO@0800 04/01/23 10/22/23 History [Drisdol (50,000 Iu)] Nitroglycerin Sl Tabs [Nitrostat] 0.4 mg SL Q5M PRN 04/01/23 10/22/23 History Apixaban [Eliquis] 5 mg PO BID@0800,1700 05/20/23 10/22/23 History Clopidogrel [Plavix] 75 mg PO DAILY@1100 05/20/23 10/22/23 History DULoxetine HCL [Cymbalta] 60 mg PO BID@0800,1700 07/04/23 10/22/23 History INSULIN ASPART (NovoLOG) [NovoLOG See Protocol SQ ACHS 07/04/23 10/22/23 History (formulary)] Magnesium Hydroxide [Milk of 7,200 mg PO DIRECTED PRN 07/04/23 10/22/23 History Magnesia Concentrate] Metoprolol Tartrate [Lopressor] 25 mg PO BID@0800,1700 07/04/23 10/22/23 History Midodrine [ProAmatine] 5 mg PO BID@0800,1700 07/04/23 10/22/23 History Na Phos,M-B/Na Phos,Di-Ba [Fleet 133 ml RECTAL DAILY PRN 07/04/23 10/22/23 History Adult] bisacodyL [Dulcolax] 10 mg RECTAL DAILY PRN 07/04/23 10/22/23 History Acetaminophen Tab [Tylenol] 500 mg PO Q6HR PRN tab 07/10/23 10/22/23 Rx Docusate [Colace] 100 mg PO DAILY@0800 PRN #0 07/10/23 10/22/23 Rx Saline Nasal Gel [[place] Nasal Gel] 1 applic NASAL Q4HR PRN each 07/10/23 10/22/23 Rx Benzocaine/Menthol Lozeng [Cepacol 1 lozenge MUCOUS MEM Q4HR PRN 08/09/23 10/22/23 History lozenge] Fluticasone Nasal [place] [Flonase 1 spr EA NOSTRIL BID@0800,1700 08/09/23 History Nasal [place]] Loperamide [Imodium] 2 mg PO QID PRN 08/09/23 10/22/23 History Magnesium Oxide [Mag-Ox] 400 mg PO DAILY@0800 08/09/23 10/22/23 History Melatonin 3 mg PO HS 08/09/23 10/22/23 History Ondansetron [Zofran] 4 mg PO Q8H PRN 08/09/23 10/22/23 History Potassium Chloride [Klor-Con M20] 20 meq PO DAILY@0800 08/09/23 10/22/23 History Spironolactone 25 mg PO DAILY@0800 08/09/23 10/22/23 History polyethylene glycoL 3350 [Miralax] 17 gm PO DAILY PRN 08/09/23 10/22/23 History ALPRAZolam [Xanax] 0.25 mg PO BID PRN 3 Days #6 tab 08/15/23 10/22/23 Rx Atorvastatin Calcium [Lipitor] 80 mg PO DAILY@1700 09/16/23 10/22/23 History Baclofen 5 mg PO Q8H PRN 09/16/23 10/22/23 History Diphenoxylate HCl/Atropine 1 tab PO QID 09/16/23 10/22/23 History [Lomotil 2.5-0.025 mg Tablet] Famotidine [Pepcid] 20 mg PO DAILY@0800 09/16/23 10/22/23 History Bacitracin Zinc Oint 1 applic TOPICAL DAILY 10/22/23 10/22/23 History DAPTOmycin [Cubicin] 500 mg IVPB DAILY@1800 10/22/23 10/22/23 History Ferrous Sulfate [Feosol] 325 mg PO DAILY@0800 10/22/23 10/22/23 History Gabapentin [Neurontin] 400 mg PO BID@0800,2100 10/22/23 10/22/23 History HYDROcodone/APAP 7.5-325MG [[place] 1 tab PO TID@0600,1400,209910/22/23 10/22/23 History 7.5-325] INSULIN ASPART (NovoLOG) [NovoLOG 4 unit SQ TID@0800,1200,1700 10/22/23 10/22/23 History (formulary)] Insulin Detemir (Levemir) [Levemir] 15 unit SQ HS 10/22/23 10/22/23 History Ipratropium-Albuterol Nebulize 3 ml INHALATION RT-Q6H PRN 10/22/23 10/22/23 History [Duoneb 0.5 mg-3 mg/3 ml Soln] Nitrofurantoin Monohyd/M-Cryst 100 mg PO Q12HR@0800,2100 10/22/23 10/22/23 History [Macrobid] Orajel 3x Gel 1 applic DENTAL TID PRN 10/22/23 10/22/23 History (Benzocaine/Menthol-Zinc Chloride 20-0.26-0.15%) Oseltamivir [Tamiflu] 75 mg PO BID@0800,1700 10/22/23 10/22/23 History Phenyleph/Pramoxin/Glycr/W.pet 1 applic RECTAL TID PRN 10/22/23 10/22/23 History [Preparation H Cream] Allergies Allergy/AdvReac Type Severity Reaction Status Date / Time vancomycin Allergy Rash/Hives/and Verified 10/22/23 21:57 vomiting diarrhea/Swelling Physical Exam Vitals: Vital Signs Temp Pulse Pulse Resp BP BP Pulse Ox 10/23/23 08:45 61 16 10/23/23 07:20 97.7 F 61 16 96/61 98 10/23/23 05:50 113/75 10/23/23 01:13 97.4 F L 60 13 90/51 99 10/23/23 00:53 105/52 10/22/23 23:08 97.5 F L 59 L 14 85/50 100 10/22/23 20:43 98.2 F 73 18 112/56 96 10/22/23 19:46 101.7 F H 75 20 106/52 94 L 10/22/23 17:54 101.6 F H 74 18 104/81 97 Intake and Output 10/22/23 10/23/23 10/23/23 22:59 06:59 14:59 Other: Voiding Method External Catheter # Voids 1 Weight 93.894 kg 93.894 kg Results CBC & Chem 7: 10/22/23 19:04 10/22/23 19:04 Labs: Abnormal Lab Results - Last 24 Hours (Table) 10/22/23 10/22/23 10/22/23 Range/Units 19:04 19:04 19:04 RBC 3.60 L (3.80-5.40) m/uL Hgb 10.3 L (11.4-16.0) gm/dL Hct 32.6 L (34.0-46.0) % RDW 15.9 H (11.5-15.5) % Plt Count 138 L (150-450) k/uL Lymphocytes # 0.4 L (1.0-4.8) k/uL Sodium 132 L (137-145) mmol/L Glucose 159 H (74-99) mg/dL POC Glucose (mg/dL) (70-110) mg/dL Plasma Lactic Acid [place] 2.1 H* (0.7-2.0) mmol/L Calcium 8.3 L (8.4-10.2) mg/dL AST 121 H (14-36) U/L ALT 48 H (4-34) U/L Total Protein 5.9 L (6.3-8.2) g/dL Albumin 2.7 L (3.5-5.0) g/dL Urine Appearance (Clear) Urine Protein (Negative) Urine Blood (Negative) Ur Leukocyte Esterase (Negative) Urine RBC (0-5) /hpf Urine WBC (0-5) /hpf Urine WBC Clumps (None) /hpf Urine Mucus (None) /hpf 10/22/23 10/23/23 10/23/23 Range/Units 19:04 05:46 11:29 RBC (3.80-5.40) m/uL Hgb (11.4-16.0) gm/dL Hct (34.0-46.0) % RDW (11.5-15.5) % Plt Count (150-450) k/uL Lymphocytes # (1.0-4.8) k/uL Sodium (137-145) mmol/L Glucose (74-99) mg/dL POC Glucose (mg/dL) 263 H 301 H (70-110) mg/dL Plasma Lactic Acid [place] (0.7-2.0) mmol/L Calcium (8.4-10.2) mg/dL AST (14-36) U/L ALT (4-34) U/L Total Protein (6.3-8.2) g/dL Albumin (3.5-5.0) g/dL Urine Appearance Turbid H (Clear) Urine Protein 1+ H (Negative) Urine Blood Moderate H (Negative) Ur Leukocyte Esterase Large H (Negative) Urine RBC 92 H (0-5) /hpf Urine WBC >182 H (0-5) /hpf Urine WBC Clumps Many H (None) /hpf Urine Mucus Few H (None) /hpf Thrombosis Risk Factor Assmnt - Choose All That Apply Any of the Below Risk Factors Present?: Yes Each Factor Represents 1 point: Obesity (BMI >25) Each Risk Factor Represents 2 Points: Age 61-74 years Each Risk Factor Represents 3 Points: History of DVT/PE Thrombosis Risk Factor Assessment Total Risk Factor Score: 6 Thrombosis Risk Factor Assessment Level: High Risk
--- NOTE | 2023-10-23 15:45 | P.GSCN ---
History of Present Illness Consult date: 10/23/23 Reason for Consult: DVT, peripheral arterial disease Requesting physician: Tramaine Tejeda History of present illness: This is a 63-year-old female known to vascular surgery with a history of peripheral arterial disease status post right lower extremity revascularization and ultimately [id number] amputation. Also known history of left lower extremity DVT. Patient was admitted for generalized weakness and malaise s econdary to influenza A. Patient states she came was brought to the emergency department Saturday and sent home and was sent back due to ongoing weakness. She denies any complaints lower extremity pain other than her body aches. She has a wound VAC on her right AKA stump. She is denying any shortness of breath or chest pain at this time. No abdominal pain nausea or vomiting. Just generalized weakness fatigue, body aches fevers and chills. Review of Systems A 14 point review systems was completed all pertinent positives and negatives as stated in the HPI. Past Medical History Past Medical History: Coronary Artery Disease (CAD), Diabetes Mellitus, Deep Vein Thrombosis (DVT), Vascular Disorder Additional Past Medical History / Comment(s): Recent hospitalization Aug 2023- Diarrhea, cellulitis rt AKA (AKA 06-07-23)site and PICC line placement (Power PICC SOLO2 catheter site lt arm),SKIN CA to neck. 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 Azar H+P pt c/o dysphonia. Last Myocardial Infarction Date:: 2010 History of Any Multi-Drug Resistant Organisms: MRSA Year Discovered:: 08/09/23 MDRO Source:: Right Leg Past Surgical History: Section, Cholecystectomy, Heart Catheterization, Heart Catheterization With Stent, Orthopedic Surgery, Tonsillectomy, Tubal Ligation Additional Past Surgical History / Comment(s): Right Below Knee Amputation 04/2023, 11 Stents in left leg, fistula left thigh, full mouth teeth extraction, TRAPEASE VENA CAVA FILTER, carpel tunnel, heart stents x4 rca and lad, tumor removal from uterus. Genital warts removed, INGRID. Skin cancer removed from neck, rt great toe amputated, colonoscopy, rt rotator, left shoulder replacement, cervial fusion, rt calf debridement, rt calf skin graft (May 2023) Past Anesthesia/Blood Transfusion Reactions: No Reported Reaction Date of Last Stent Placement:: Mar 2023 Past Psychological History: Anxiety, Depression Additional Psychological History / Comment(s): Depression r/t health issues. Smoking Status: Current every day smoker Past Alcohol Use History: None Reported Additional Past Alcohol Use History / Comment(s): STARTED SMOKING IN 1988 SMOKES 1/2 PPD Past Drug Use History: None Reported - Past Family History Mother Family Medical History: Cancer, Congestive Heart Failure (CHF), Diabetes Mellitus, Myocardial Infarction ([place]) Additional Family Medical History / Comment(s): UTERINE CANCER Father Family Medical History: Coronary Artery Disease (CAD), Myocardial Infarction ([place]) Additional Family Medical History / Comment(s): Father at age 70. Sister(s) Family Medical History: Myocardial Infarction ([place]) Additional Family Medical History / Comment(s): Patient has one sister with my ocardial infarction at age 55. Son(s) Family Medical History: Deep Vein Thrombosis (DVT), Pulmonary Embolus Additional Family Medical History / Comment(s): Patient has 2 sons and one has history of DVT and pulmonary embolism. Medications and Allergies Home Medications Medication Instructions Recorded Confirmed Type Ergocalciferol (Vitamin D2) 1,250 mcg PO GUERREOR@0800 04/01/23 10/22/23 History [Drisdol (50,000 Iu)] Nitroglycerin Sl Tabs [Nitrostat] 0.4 mg SL Q5M PRN 04/01/23 10/22/23 History Apixaban [Eliquis] 5 mg PO BID@0800,1700 05/20/23 10/22/23 History Clopidogrel [Plavix] 75 mg PO DAILY@1100 05/20/23 10/22/23 History DULoxetine HCL [Cymbalta] 60 mg PO BID@0800,1700 07/04/23 10/22/23 History INSULIN ASPART (NovoLOG) [NovoLOG See Protocol SQ ACHS 07/04/23 10/22/23 History (formulary)] Magnesium Hydroxide [Milk of 7,200 mg PO DIRECTED PRN 07/04/23 10/22/23 H istory Magnesia Concentrate] Metoprolol Tartrate [Lopressor] 25 mg PO BID@0800,1700 07/04/23 10/22/23 History Midodrine [ProAmatine] 5 mg PO BID@0800,1700 07/04/23 10/22/23 History Na Phos,M-B/Na Phos,Di-Ba [Fleet 133 ml RECTAL DAILY PRN 07/04/23 10/22/23 History Adult] bisacodyL [Dulcolax] 10 mg RECTAL DAILY PRN 07/04/23 10/22/23 History Acetaminophen Tab [Tylenol] 500 mg PO Q6HR PRN tab 07/10/23 10/22/23 Rx Docusate [Colace] 100 mg PO DAILY@0800 PRN #0 07/10/23 10/22/23 Rx Saline Nasal Gel [Bunkie Nasal Gel] 1 applic NASAL Q4HR PRN each 07/10/23 10/22/23 Rx Benzocaine/Menthol Lozeng [Cepacol 1 lozenge MUCOUS MEM Q4HR PRN 08/09/23 10/22/23 History lozenge] Fluticasone Nasal Novi [Flonase 1 spr EA NOSTRIL BID@0800,1700 08/09/23 10/22/23 History Nasal Novi] Loperamide [Imodium] 2 mg PO QID PRN 08/09/23 10/22/23 History Magnesium Oxide [Mag-Ox] 400 mg PO DAILY@0800 08/09/23 10/22/23 History Melatonin 3 mg PO HS 08/09/23 10/22/23 History Ondansetron [Zofran] 4 mg PO Q8H PRN 08/09/23 10/22/23 History Potassium Chloride [Klor-Con M20] 20 meq PO DAILY@0800 08/09/23 10/22/23 History Spironolactone 25 mg PO DAILY@0800 08/09/23 10/22/23 History polyethylene glycoL 3350 [Miralax] 17 gm PO DAILY PRN 08/09/23 10/22/23 History ALPRAZolam [Xanax] 0.25 mg PO BID PRN 3 Days #6 tab 08/15/23 10/22/23 Rx Atorvastatin Calcium [Lipitor] 80 mg PO DAILY@1700 09/16/23 10/22/23 History Baclofen 5 mg PO Q8H PRN 09/16/23 10/22/23 History Diphenoxylate HCl/Atropine 1 tab PO QID 09/16/23 10/22/23 History [Lomotil 2.5-0.025 mg Tablet] Famotidine [Pepcid] 20 mg PO DAILY@0800 09/16/23 10/22/23 History Bacitracin Zinc Oint 1 applic TOPICAL DAILY 10/22/23 10/22/23 History DAPTOmycin [Cubicin] 500 mg IVPB DAILY@1800 10/22/23 10/22/23 History Ferrous Sulfate [Feosol] 325 mg PO DAILY@0800 10/22/23 10/22/23 History Gabapentin [Neurontin] 400 mg PO BID@0800,2100 10/22/23 10/22/23 History HYDROcodone/APAP 7.5-325MG [Lawrence 1 tab PO TID@0600,1400,209910/22/23 10/22/23 History 7.5-325] INSULIN ASPART (NovoLOG) [NovoLOG 4 unit SQ TID@0800,1200,1700 10/22/23 10/22/23 History (formulary)] Insulin Detemir (Levemir) [Levemir] 15 unit SQ HS 10/22/23 10/22/23 History Ipratropium-Albuterol Nebulize 3 ml INHALATION RT-Q6H PRN 10/22/23 10/22/23 History [Duoneb 0.5 mg-3 mg/3 ml Soln] Nitrofurantoin Monohyd/M-Cryst 100 mg PO Q12HR@0800,2100 10/22/23 10/22/23 History [Macrobid] Orajel 3x Gel 1 applic DENTAL TID PRN 10/22/23 10/22/23 History (Benzocaine/Menthol-Zinc Chloride 20-0.26-0.15%) Oseltamivir [Tamiflu] 75 mg PO BID@0800,1700 10/22/23 10/22/23 History Phenyleph/Pramoxin/Glycr/W.pet 1 applic RECTAL TID PRN 10/22/23 10/22/23 History [Preparation H Cream] Allergies Allergy/AdvReac Type Severity Reaction Status Date / Time vancomycin Allergy Rash/Hives/and Verified 10/22/23 21:57 vomiting diarrhea/Swelling Surgical - Exam Vital Signs Temp Pulse Resp BP Pulse Ox 101.6 F H 74 18 104/81 97 10/22/23 17:54 10/22/23 17:54 10/22/23 17:54 10/22/23 17:54 10/22/23 17:54 General appearance: The patient is alert, oriented, appears in no acute distress. HET: Head is normocephalic and atraumatic. Neck: Supple. Heart: Regular. Lungs: Equal expansion, normal respiratory effort. Abdomen: Soft, nontender, nondistended. Extremities: Right [id number] amputation with wound VAC in place. Left lower extremity without any swelling, warm to the touch with good capillary refill. Nontender. Neurological: No focal deficits. Strength and sensation are grossly intact. Results - Labs 10/22/23 19:04 10/22/23 19:04 Abnormal Lab Results - Last 24 Hours (Table) 10/22/23 10/22/23 10/22/23 Range/Units 19:04 19:04 19:04 RBC 3.60 L (3.80-5.40) m/uL Hgb 10.3 L (11.4-16.0) gm/dL Hct 32.6 L (34.0-46.0) % RDW 15.9 H (11.5-15.5) % Plt Count 138 L (150-450) k/uL Lymphocytes # 0.4 L (1.0-4.8) k/uL Sodium 132 L (137-145) mmol/L Glucose 159 H (74-99) mg/dL POC Glucose (mg/dL) (70-110) mg/dL Plasma Lactic Acid Mynor 2.1 H* (0.7-2.0) mmol/L Calcium 8.3 L (8.4-10.2) mg/dL AST 121 H (14-36) U/L ALT 48 H (4-34) U/L Total Protein 5.9 L (6.3-8.2) g/dL Albumin 2.7 L (3.5-5.0) g/dL Urine Appearance (Clear) Urine Protein (Negative) Urine Blood (Negative) Ur Leukocyte Esterase (Negative) Urine RBC (0-5) /hpf Urine WBC (0-5) /hpf Urine WBC Clumps (None) /hpf Urine Mucus (None) /hpf 10/22/23 10/23/23 Range/Units 19:04 05:46 RBC (3.80-5.40) m/uL Hgb (11.4-16.0) gm/dL Hct (34.0-46.0) % RDW (11.5-15.5) % Plt Count (150-450) k/uL Lymphocytes # (1.0-4.8) k/uL Sodium (137-145) mmol/L Glucose (74-99) mg/dL POC Glucose (mg/dL) 263 H (70-110) mg/dL Plasma Lactic Acid Mynor (0.7-2.0) mmol/L Calcium (8.4-10.2) mg/dL AST (14-36) U/L ALT (4-34) U/L Total Protein (6.3-8.2) g/dL Albumin (3.5-5.0) g/dL Urine Appearance Turbid H (Clear) Urine Protein 1+ H (Negative) Urine Blood Moderate H (Negative) Ur Leukocyte Esterase Large H (Negative) Urine RBC 92 H (0-5) /hpf Urine WBC >182 H (0-5) /hpf Urine WBC Clumps Many H (None) /hpf Urine Mucus Few H (None) /hpf Diabetes panel 10/22/23 Range/Units 19:04 Sodium 132 L (137-145) mmol/L Potassium 4.1 (3.5-5.1) mmol/L Chloride 100 (98-107) mmol/L Carbon Dioxide 24 (22-30) mmol/L BUN 12 (7-17) mg/dL Creatinine 1.01 (0.52-1.04) mg/dL Glucose 159 H (74-99) mg/dL Calcium 8.3 L (8.4-10.2) mg/dL AST 121 H (14-36) U/L ALT 48 H (4-34) U/L Alkaline Phosphatase 123 (38-126) U/L Total Protein 5.9 L (6.3-8.2) g/dL Albumin 2.7 L (3.5-5.0) g/dL Calcium panel 10/22/23 Range/Units 19:04 Calcium 8.3 L (8.4-10.2) mg/dL Albumin 2.7 L (3.5-5.0) g/dL Pituitary panel 10/22/23 Range/Units 19:04 Sodium 132 L (137-145) mmol/L Potassium 4.1 (3.5-5.1) mmol/L Chloride 100 (98-107) mmol/L Carbon Dioxide 24 (22-30) mmol/L BUN 12 (7-17) mg/dL Creatinine 1.01 (0.52-1.04) mg/dL Glucose 159 H (74-99) mg/dL Calcium 8.3 L (8.4-10.2) mg/dL Adrenal panel 10/22/23 Range/Units 19:04 Sodium 132 L (137-145) mmol/L Potassium 4.1 (3.5-5.1) mmol/L Chloride 100 (98-107) mmol/L Carbon Dioxide 24 (22-30) mmol/L BUN 12 (7-17) mg/dL Creatinine 1.01 (0.52-1.04) mg/dL Glucose 159 H (74-99) mg/dL Calcium 8.3 L (8.4-10.2) mg/dL Total Bilirubin 0.7 (0.2-1.3) mg/dL AST 121 H (14-36) U/L ALT 48 H (4-34) U/L Alkaline Phosphatase 123 (38-126) U/L Total Protein 5.9 L (6.3-8.2) g/dL Albumin 2.7 L (3.5-5.0) g/dL Assessment and Plan Assessment: 1. Influenza A 2. Generalized weakness 3. History of peripheral arterial disease status post right lower extremity revascularization and [id number] amputation 4. History of deep vein thrombosis Plan: Patient seen and examined. Will consult wound clinic for local wound care for right AKA and wound VAC application. There is otherwise no indication for any vascular surgical intervention. Thank you for this consultation, we will sign off at this time. The impression and plan of care has been dictated as directed. I performed a history and examination of this patient, discussed the same with the dictator. I agree with the dictator's note ,documented as a scribe. Any additional findings or plans will be noted.
[2023-10-23 17:00] LABS: Glucose,Whole Blood 209 mg/dL (70-110)
[2023-10-23] MEDS: DAPTOmycin 500 MG in SODIUM CHLORIDE 0.9% 50 ML IVPB SCH (17:27)
[2023-10-23] MEDS: ATORVASTATIN 80 MG TAB PO SCH (17:27)
[2023-10-23] MEDS ORDERED: DAPTOmycin 500 MG VIAL IVPB SCH (18:00)
[2023-10-23 20:35] LABS: Glucose,Whole Blood 192 mg/dL (70-110)
[2023-10-23] MEDS: MELATONIN 1 MG TAB PO SCH (20:58)
[2023-10-23] MEDS: guaiFENesin SYRUP 100MG/5ML 200 MG/10 ML CUP PO PRN (20:59)
[2023-10-23] MEDS ORDERED: INSULIN DETEMIR (LEVEMIR) 100 UNIT/ML SYR SQ SCH (21:00)
[2023-10-23] MEDS: ALPRAZolam 0.25 MG TAB PO PRN (21:04)
[2023-10-23] MEDS: INSULIN DETEMIR (LEVEMIR) 100 UNIT/ML SYR SQ SCH (21:04)
[2023-10-23] MEDS: ACETAMINOPHEN TAB 500 MG TAB PO PRN (21:08)
[2023-10-24 05:42] LABS: Glucose,Whole Blood 133 mg/dL (70-110)
[2023-10-24] MEDS: DAPAGLIFLOZIN PROPANEDIOL 5 MG TABLET PO SCH (09:31)
[2023-10-24 11:17] LABS: Basophils # (A) 0.01 X 10*3/uL (0.00-0.10); Basophils % (A) 0.3 %; Eosinophils # (A) 0.32 X 10*3/uL (0.04-0.35); Eosinophils % (A) 10.7 %; HGB 9.5 g/dL (12.0-15.0); Lymphocytes # (A) 0.72 X 10*3/uL (0.90-5.00); Lymphocytes % (A) 24.1 %; MCH 27.7 pg (27.0-32.0); MCHC 30.6 g/dL (32.0-37.0); MCV 90.4 FL (80.0-97.0); Mean Platelet Volume 12.7 FL (9.5-12.2); Monocytes # (A) 0.17 X 10*3/uL (0.20-1.00); Monocytes % (A) 5.7 %; NRBC Per 100 WBC 0 X 10*3/uL (0.00-0.01); Neutrophils # (A) 1.76 X 10*3/uL (1.80-7.70); Neutrophils % (A) 58.9 %; Platelet Count 86 X 10*3/uL (140-440); RBC 3.43 X 10*6/uL (4.10-5.20); RDW 15.8 % (11.5-14.5); WBC 2.99 X 10*3/uL (4.50-10.00)
[2023-10-24 11:36] LABS: Glucose,Whole Blood 91 mg/dL (70-110)
[2023-10-24 11:40] LABS: ALT 36 U/L (8-44); AST 77 U/L (13-35); Albumin 2.4 g/dL (3.8-4.9); Albumin/Globulin Ratio 0.89 Ratio (1.60-3.17); Alkaline Phosphatase 114 U/L (41-126); Blood Urea Nitrogen 8.5 mg/dL (9.0-27.0); Calcium 8.2 mg/dL (8.7-10.3); Chloride 105 mmol/L (96-109); Globulin 2.7 g/dL (1.6-3.3); Glucose 128 mg/dL (70-110); Potassium 3.6 mmol/L (3.5-5.5); Sodium 138 mmol/L (135-145); Total Bilirubin 0.4 mg/dL (0.3-1.2); Total Protein 5.1 g/dL (6.2-8.2)
[2023-10-24 16:41] LABS: Glucose,Whole Blood 176 mg/dL (70-110)
[2023-10-24] MEDS: BACLOFEN 10 MG TAB PO PRN (17:08)
--- NOTE | 2023-10-24 19:01 | P.PN ---
Subjective Progress Note Date: 10/24/23 HISTORY OF PRESENT ILLNESS This is a 63-year-old female patient of mine with history of CAD with multiple cardiac stents in mid RCA, mid LAD, obtuse marginal branch and followed by Dr. Bill closely, peripheral artery disease with previous stenting done as well has amputation of the right great toe secondary to osteomyelitis, CVA with no residual deficits, hypertension, COPD, diabetes mellitus type 2, previous multiple DVT and PE requiring chronic anticoagulation on eliquis, history of GI bleed secondary to antral gastritis, esophagitis, vitamin D deficiency, autono margot hypotension on midodrine, history of left humerus fracture, history of PAD post right AKA and CAD post PCI of the RCA with intermediate disease of the LAD, patient was recently seen at the extended care facility [facility] where she was complaining of increased pain in the left lower extremity, she was feeling sick with low-grade temperature she was swabbed for influenza AMB along with COVID- 19, she was sent to the ER for evaluation for possible DVT, that was on 10/20/2023 had a venous Doppler that showed evidence of DVT of the right common femoral vein with multiple stents in place, she was found to have a UTI, she was placed on Macrobid even though the patient was on daptomycin I believe until the of this month, was sent back to [facility], she was seen by Courtney the [facility] level provider at [facility] and she made the decision for the patient to be transferred back to [facility] because of not feeling well worried about sepsis, she was hypotensive with a low-grade temperature, with minimal encephalopathy, patient did appear to be a bit dehydrated, she was started on IV fluid resuscitation, she was placed back on her Tamiflu 75 mg orally twice every day, she was also kept on Macrobid along with daptomycin, she was admitted to the hospital was seen in consultation by vascular surgery for DVT and PAD of the left lower extremity as well as Dr. Heller for her influenza A, she is sitting up in bed in no apparent distress, her son was at the bedside, he was updated about her current condition she appears to be quite stable likely will be transferred back to [facility] tomorrow morning. 10/23: Patient is sitting up in the chair, she denies any chest pain, she continues to have some congested cough, she does not appear to have any fever or chills at this time, her blood glucose level is better today, she does not like the cough syrup, we will switch her to Tessalon Perles 200 mg orally 3 times every day, continue with current treatment plan, likely will be discharged back to [facility] tomorrow morning, patient was seen in consultation by wound care as well as by vascular surgery it was recommended to continue current treatment plan, she was taken off the wound VAC at this time, I will follow-up with the patient very closely. REVIEW OF SYSTEMS Constitutional: positive for fever, No chills, no night sweats. Reports weight loss. Reports weakness, Reports fatigue no lethargy. NO daytime sleepiness. HEENT: No headache. positive for dizziness. No nasal drainage or congestion. No epistaxis. No sore throat. Lungs: minimal shortness of breath, congested cough, no sputum production. No wheezing. Cardiovascular: No chest pain, no lower extremity edema. No palpitations. No paroxysmal nocturnal dyspnea. No orthopnea. No lightheadedness or dizziness. No syncopal episodes. Abdominal: Reports no abdominal pain. Reports nausea, no vomiting. positive for diarrhea. No constipation. No bloody or tarry stools. good appetite. Genitourinary: No dysuria, increased frequency, urgency. No urinary retention. Musculoskeletal: No myalgias. positive for muscle weakness, reports balance issues. Integumentary: Right AKA with minima erythema to the side with minimal drainage Neurologic: No aphasia. No facial droop. No change in mentation. No head injury. No headache. No paralysis. No paresthesia. Psychiatric: Reports depression. Reports anxiety. No mood swings. Endocrine: abnormal blood sugars. positive for weight change. No excessive sweating or thirst. No cold intolerance. PHYSICAL EXAMINATION Gen: This is a 63-year-old female. She is resting in bed i no acute distress HEENT: Head is atraumatic, normocephalic. Pupils equal, round. Sclerae is anicteric. Mucous members of the mouth are somewhat dry. NECK: Supple. No JVD. No lymphadenopathy. No thyromegaly. LUNGS: Clear to auscultation. No wheezes or rhonchi. No intercostal retractions. 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 ABDOMEN: Soft, non tender non distended and no rebound or guarding positive bowel sounds EXTREMITIES: Right above-knee amputation with small wound to the side off the wound vac NEUROLOGICAL: Patient is awake, alert and oriented x3. Cranial nerves 2 through 12 are grossly intact muscle power were 4 out of 5 in upper extremity is, and 3 out of 5 in the left lower extremity. She does have a right above-knee amputation. ASSESSMENT AND PLAN 1. Influenza A with SIRS. Continue Tamiflu 75 mg twice every day, continue with supportive care, patient seems to be doing better. Add Tessalon Perles 200 mg orally 3 times every day. 2. Acute/chronic DVT of the left common femoral vein. Patient has been on Eliquis also she does appear to have significant PAD, we will consult vascular surgery for further recommendation. Continue current pain management with hydrocodone as the patient pain continues to be the same from the knee down. 3. Coronary artery disease with recent stent of the RCA due to recent in-stent restenosis. Patient has had previous multiple cardiac stents to the RCA and mid LAD, obtuse marginal branch. Continue patient on Plavix 75 mg daily, Lopressor 25 mg twice daily, Atorvastatin 80 mg po daily . 4. Diabetes mellitus type 2 uncontrolled with hypoglycemia. we will continue with Humalog 4 units AC meals tid , we will continue Levemir 18 units at bedtime, along with a sliding scale insulin. 5. Hyperlipidemia. Continue Atorvastatin 80 mg po daily, monito the patient lipid panel, keep LDL 55-70. 6. Chronic DVT and PEs. Continue patient on eliquis 5 mg twice daily. 7. Orthostatic hypotension continue patient on Midodrin 5 mg po tid 8. Hypertension and hypertensive cardiovascular disease. Continue metoprolol 25 mg orally twice every day. 9. Gastroesophageal reflux disease and GI prophylaxis. Continue Pantoprazole 40 mg daily and Pepcid 20 mg once every day. 10. Diabetic neuropathy. we will continue wit Gabapentin 400 mg po tid. 11. Generalized anxiety disorder, recurrent depression. Continue Cymbalta 60 mg po bid 13. DVT prophylaxis. Continue Eliquis 5 mg po bid 14. GI prophylaxis. Continue patient on pantoprazole 40 mg once every day as well as famotidine 20 mg once every day. 15. Diabetic polyneuropathy. Continue gabapentin 400 mg orally twice every day. 16. Orthostatic hypotension or dysautonomia. Continue patient on midodrine 5 mg orally twice every day. 17. Physical therapy evaluation likely going back tomorrow tomorrow morning. Objective - Vital Signs Vital signs: Vital Signs Temp 97.9 F 10/24/23 07:17 Pulse 56 L 10/24/23 08:00 Resp 17 10/24/23 08:00 BP 100/63 10/24/23 07:17 Pulse Ox 98 10/24/23 07:17 FiO2 Intake & Output 10/23/23 10/24/23 10/24/23 18:59 06:59 18:59 Output Total 400 300 Balance -400 -300 Output: Urine 400 300 Other: Voiding Method External Catheter External Catheter External Catheter # Voids 3 # Bowel Movements 1 - Labs CBC & Chem 7: 10/24/23 06:45 10/24/23 06:45 Labs: Abnormal Lab Results - Last 24 Hours (Table) 10/23/23 10/23/23 10/24/23 Range/Units 16:59 20:34 05:41 WBC (4.50-10.00) X 10*3/uL RBC (4.10-5.20) X 10*6/uL Hgb (12.0-15.0) g/dL Hct (37.2-46.3) % MCHC (32.0-37.0) g/dL RDW (11.5-14.5) % Plt Count (140-440) X 10*3/uL MPV (9.5-12.2) FL Neutrophils # (1.80-7.70) X 10*3/uL Lymphocytes # (0.90-5.00) X 10*3/uL Monocytes # (0.20-1.00) X 10*3/uL BUN (9.0-27.0) mg/dL BUN/Creatinine Ratio (12.00-20.00) Ratio Glucose (70-110) mg/dL POC Glucose (mg/dL) 209 H 192 H 133 H (70-110) mg/dL Calcium (8.7-10.3) mg/dL AST (13-35) U/L Total Protein (6.2-8.2) g/dL Albumin (3.8-4.9) g/dL Albumin/Globulin Ratio (1.60-3.17) Ratio 10/24/23 10/24/23 Range/Units 06:45 06:45 WBC 2.99 L (4.50-10.00) X 10*3/uL RBC 3.43 L (4.10-5.20) X 10*6/uL Hgb 9.5 L (12.0-15.0) g/dL Hct 31.0 L (37.2-46.3) % MCHC 30.6 L (32.0-37.0) g/dL RDW 15.8 H (11.5-14.5) % Plt Count 86 L (140-440) X 10*3/uL MPV 12.7 H (9.5-12.2) FL Neutrophils # 1.76 L (1.80-7.70) X 10*3/uL Lymphocytes # 0.72 L (0.90-5.00) X 10*3/uL Monocytes # 0.17 L (0.20-1.00) X 10*3/uL BUN 8.5 L (9.0-27.0) mg/dL BUN/Creatinine Ratio 8.50 L (12.00-20.00) Ratio Glucose 128 H (70-110) mg/dL POC Glucose (mg/dL) (70-110) mg/dL Calcium 8.2 L (8.7-10.3) mg/dL AST 77 H (13-35) U/L Total Protein 5.1 L (6.2-8.2) g/dL Albumin 2.4 L (3.8-4.9) g/dL Albumin/Globulin Ratio 0.89 L (1.60-3.17) Ratio Microbiology - Last 24 Hours (Table) 10/22/23 19:00 Blood Culture - Preliminary Blood 10/22/23 18:45 Blood Culture - Preliminary Blood
--- NOTE | 2023-10-24 20:22 | XR ---
EXAMINATION: XR chest 1V DATE AND TIME: 10/24/2023 7:32 PM CLINICAL INDICATION: PHH; cough TECHNIQUE: Departmental protocol COMPARISON: 10/22/2023 FINDINGS: The lungs are clear. The pleural spaces are negative. The cardiac silhouette is not enlarged. The skeletal structures and soft tissues are negative for acute findings. IMPRESSION: No acute radiographic process.
[2023-10-24 21:19] LABS: Glucose,Whole Blood 168 mg/dL (70-110)
[2023-10-24] MEDS: OSELTAMIVIR 30 MG CAP PO SCH (22:07)
[2023-10-25 05:37] LABS: Glucose,Whole Blood 227 mg/dL (70-110)
[2023-10-25] MEDS: BENZONATATE 100 MG CAP PO PRN (09:28)
[2023-10-25 11:47] LABS: Basophils # (A) 0.02 X 10*3/uL (0.00-0.10); Basophils % (A) 0.6 %; Eosinophils # (A) 0.25 X 10*3/uL (0.04-0.35); HCT 29.5 % (37.2-46.3); HGB 9.4 g/dL (12.0-15.0); Lymphocytes # (A) 1.01 X 10*3/uL (0.90-5.00); Lymphocytes % (A) 32.3 %; MCH 28.5 pg (27.0-32.0); MCHC 31.9 g/dL (32.0-37.0); MCV 89.4 FL (80.0-97.0); Monocytes % (A) 6.4 %; NRBC Per 100 WBC 0 X 10*3/uL (0.00-0.01); Neutrophils # (A) 1.64 X 10*3/uL (1.80-7.70); Neutrophils % (A) 52.4 %; Platelet Count 97 X 10*3/uL (140-440); RDW 15.9 % (11.5-14.5); WBC 3.13 X 10*3/uL (4.50-10.00)
[2023-10-25 11:53] LABS: Glucose,Whole Blood 197 mg/dL (70-110)
[2023-10-25 12:21] LABS: ALT 31 U/L (8-44); AST 60 U/L (13-35); Albumin 2.5 g/dL (3.8-4.9); Albumin/Globulin Ratio 0.93 Ratio (1.60-3.17); Alkaline Phosphatase 128 U/L (41-126); BUN/Creat Ratio 9.44 Ratio (12.00-20.00); Blood Urea Nitrogen 8.5 mg/dL (9.0-27.0); Calcium 8.1 mg/dL (8.7-10.3); Carbon Dioxide 23.7 mmol/L (21.6-31.8); Chloride 106 mmol/L (96-109); Globulin 2.7 g/dL (1.6-3.3); Glucose 231 mg/dL (70-110); Potassium 3.7 mmol/L (3.5-5.5); Sodium 139 mmol/L (135-145); Total Bilirubin 0.5 mg/dL (0.3-1.2); Total Protein 5.2 g/dL (6.2-8.2)
--- NOTE | 2023-10-25 12:56 | P.DS ---
Providers Date of admission: 10/22/23 20:59 Expected date of discharge: 10/26/23 Attending physician: Tramaine Tejeda Primary care physician: Tramaine Tejeda Hospital Course: HISTORY OF PRESENT ILLNESS This is a 63-year-old female patient of mine with history of CAD with multiple cardiac stents in mid RCA, mid LAD, obtuse marginal branch and followed by Dr. Bill closely, peripheral artery disease with previous stenting done as well has amputation of the right great toe secondary to osteomyelitis, CVA with no residual deficits, hypertension, COPD, diabetes mellitus type 2, previous multiple DVT and PE requiring chronic anticoagulation on eliquis, history of GI bleed secondary to antral gastritis, esophagitis, vitamin D deficiency, autonomic hypotension on midodrine, history of left humerus fracture, history of PAD post right AKA and CAD post PCI of the RCA with intermediate disease of the LAD, patient was recently seen at the [facility] care facility [facility] where she was complaining of increased pain in the left lower extremity, she was feeling sick with low-grade temperature she was swabbed for influenza AMB along with COVID-19, she was sent to the ER for evaluation for possible DVT, that was on 10/20/2023 had a venous Doppler that showed evidence of DVT of the right common femoral vein with multiple stents in place, she was found to have a UTI, she was placed on Macrobid even though the patient was on daptomycin I believe until the of this month, was sent back to [facility], she was seen by [facility] level provider at [facility] and she made the decision for the patient to be transferred back to [facility] because of not feeling well worried about sepsis, she was hypotensive with a low-grade temperature, with minimal encephalopathy, patient did appear to be a bit dehydrated, she was started on IV fluid resuscitation, she was placed back on her Tamiflu 75 mg orally twice every day, she was also kept on Macrobid along with daptomycin, she was admitted to the hospital was seen in consultation by vascular surgery for DVT and PAD of the left lower extremity as well as Dr. Heller for her influenza A, she is sitting up in bed in no apparent distress, her son was at the bedside, he was updated about her current condition she appears to be quite stable likely will be transferred back to [facility] tomorrow morning. 10/23: Patient is sitting up in the chair, she denies any chest pain, she continues to have some congested cough, she does not appear to have any fever or chills at this time, her blood glucose level is better today, she does not like the cough syrup, we will switch her to Tessalon Perles 200 mg orally 3 times every day, continue with current treatment plan, likely will be discharged back to [facility] tomorrow morning, patient was seen in consultation by wound care as well as by vascular surgery it was recommended to continue current treatment plan, she was taken off the wound VAC at this time, I will follow-up with the patient very closely. 10/24: Patient is feeling weak today, she denies any chest pain, she continues to have some congested cough, she was supposed to be getting transferred tomorrow but she was feeling not up to it today, she wanted to stay in the hospital for another 24 hours, I repeated chest x-ray was normal, her laboratory evaluation are stable, discontinue Tamiflu, discontinue Macrobid, monitor the patient very closely, hopefully patient can be discharged back tomorrow tomorrow morning. Discharge diagnoses: 1. Influenza A with SIRS. 2. Chronic DVT of the Left common femoral vein. 3. Coronary artery disease with recent stent of the RCA due to recent in-stent restenosis. 4. Diabetes mellitus type 2 uncontrolled with hypoglycemia. 5. Hyperlipidemia. 6. Chronic DVT and PEs. 7. Orthostatic hypotension 8. Hypertension and hypertensive cardiovascular disease. 9. Gastroesophageal reflux disease and GI prophylaxis. 10. Diabetic neuropathy. 11. Generalized anxiety disorder, recurrent depression. 13. Diabetic polyneuropathy. 14. Orthostatic hypotension or dysautonomia. Plan - Discharge Summary Discharge Rx Participant: No New Discharge Prescriptions: New Insulin Detemir (Levemir) [Levemir] 22 unit SQ HS each Benzonatate [Tessalon Perles] 200 mg PO TID PRN #21 cap PRN Reason: Cough Dapagliflozin Propanediol [Farxiga] 5 mg PO DAILY tab Continue Ergocalciferol (Vitamin D2) [Drisdol (50,000 Iu)] 1,250 mcg PO GUERRERO@0800 Clopidogrel [Plavix] 75 mg PO DAILY@1100 INSULIN ASPART (NovoLOG) [NovoLOG (formulary)] See Protocol SQ ACHS Magnesium Hydroxide [Milk of Magnesia Concentrate] 7,200 mg PO DIRECTED PRN PRN Reason: 2 days no BM Na Phos,M-B/Na Phos,Di-Ba [Fleet Adult] 133 ml RECTAL DAILY PRN PRN Reason: Constipation Saline Nasal Gel [Bartelso Nasal Gel] 1 applic NASAL Q4HR PRN each PRN Reason: Dry Nasal Passages Acetaminophen Tab [Tylenol] 500 mg PO Q6HR PRN tab PRN Reason: Fever And/ Or Pain Docusate [Colace] 100 mg PO DAILY@0800 PRN #0 PRN Reason: Constipation Fluticasone Nasal [place] [Flonase Nasal [place]] 1 spr EA NOSTRIL BID@0800,1700 Loperamide [Imodium] 2 mg PO QID PRN PRN Reason: Loose Stool polyethylene glycoL 3350 [Miralax] 17 gm PO DAILY PRN PRN Reason: Constipation ALPRAZolam [Xanax] 0.25 mg PO BID PRN 3 Days #6 tab PRN Reason: Anxiety Diphenoxylate HCl/Atropine [Lomotil 2.5-0.025 mg Tablet] 1 tab PO QID Famotidine [Pepcid] 20 mg PO DAILY@0800 Phenyleph/Pramoxin/Glycr/W.pet [Preparation H Cream] 1 applic RECTAL TID PRN PRN Reason: Hemorrhoids Ipratropium-Albuterol Nebulize [Duoneb 0.5 mg-3 mg/3 ml Soln] 3 ml INHALATION RT-Q6H PRN PRN Reason: Shortness Of Breath HYDROcodone/APAP 7.5-325MG [[place] 7.5-325] 1 tab PO TID@0600,1400,2100 Gabapentin [Neurontin] 400 mg PO BID@0800,2100 DAPTOmycin [Cubicin] 500 mg IVPB DAILY@1800 Orajel 3x Gel (Benzocaine/Menthol-Zinc Chloride 20-0.26-0.15%) 1 applic DENTAL TID PRN PRN Reason: right gum pain Nitroglycerin Sl Tabs [Nitrostat] 0.4 mg SL Q5M PRN PRN Reason: Chest Pain Apixaban [Eliquis] 5 mg PO BID@0800,1700 bisacodyL [Dulcolax] 10 mg RECTAL DAILY PRN PRN Reason: Constipation DULoxetine HCL [Cymbalta] 60 mg PO BID@0800,1700 Metoprolol Tartrate [Lopressor] 25 mg PO BID@0800,1700 Midodrine [ProAmatine] 5 mg PO BID@0800,1700 Benzocaine/Menthol Lozeng [Cepacol lozenge] 1 lozenge MUCOUS MEM Q4HR PRN PRN Reason: Sore Throat Magnesium Oxide [Mag-Ox] 400 mg PO DAILY@0800 Melatonin 3 mg PO HS Ondansetron [Zofran] 4 mg PO Q8H PRN PRN Reason: Nausea Potassium Chloride [Klor-Con M20] 20 meq PO DAILY@0800 Spironolactone 25 mg PO DAILY@0800 Baclofen 5 mg PO Q8H PRN PRN Reason: Muscle Spasm Atorvastatin Calcium [Lipitor] 80 mg PO DAILY@1700 INSULIN ASPART (NovoLOG) [NovoLOG (formulary)] 4 unit SQ TID@0800,1200,1700 Ferrous Sulfate [Feosol] 325 mg PO DAILY@0800 Bacitracin Zinc Oint 1 applic TOPICAL DAILY Discontinued Oseltamivir [Tamiflu] 75 mg PO BID@0800,1700 Nitrofurantoin Monohyd/M-Cryst [Macrobid] 100 mg PO Q12HR@0800,2100 Insulin Detemir (Levemir) [Levemir] 15 unit SQ HS Discharge Medication List Ergocalciferol (Vitamin D2) [Drisdol (50,000 Iu)] 1,250 mcg PO GUERRERO@0800 04/01/23 [History] Nitroglycerin Sl Tabs [Nitrostat] 0.4 mg SL Q5M PRN 04/01/23 [History] Apixaban [Eliquis] 5 mg PO BID@0800,1700 05/20/23 [History] Clopidogrel [Plavix] 75 mg PO DAILY@1100 05/20/23 [History] DULoxetine HCL [Cymbalta] 60 mg PO BID@0800,1700 07/04/23 [History] INSULIN ASPART (NovoLOG) [NovoLOG (formulary)] See Protocol SQ ACHS 07/04/23 [History] Magnesium Hydroxide [Milk of Magnesia Concentrate] 7,200 mg PO DIRECTED PRN 07/04/23 [History] Metoprolol Tartrate [Lopressor] 25 mg PO BID@0800,1700 07/04/23 [History] Midodrine [ProAmatine] 5 mg PO BID@0800,1700 07/04/23 [History] Na Phos,M-B/Na Phos,Di-Ba [Fleet Adult] 133 ml RECTAL DAILY PRN 07/04/23 [History] bisacodyL [Dulcolax] 10 mg RECTAL DAILY PRN 07/04/23 [History] Acetaminophen Tab [Tylenol] 500 mg PO Q6HR PRN tab 07/10/23 [Rx] Docusate [Colace] 100 mg PO DAILY@0800 PRN #0 07/10/23 [Rx] Saline Nasal Gel [Bartelso Nasal Gel] 1 applic NASAL Q4HR PRN each 07/10/23 [Rx] Benzocaine/Menthol Lozeng [Cepacol lozenge] 1 lozenge MUCOUS MEM Q4HR PRN 08/09/23 [History] Fluticasone Nasal [place] [Flonase Nasal [place]] 1 spr EA NOSTRIL BID@0800,1700 08/09/23 [History] Loperamide [Imodium] 2 mg PO QID PRN 08/09/23 [History] Magnesium Oxide [Mag-Ox] 400 mg PO DAILY@0800 08/09/23 [History] Melatonin 3 mg PO HS 08/09/23 [History] Ondansetron [Zofran] 4 mg PO Q8H PRN 08/09/23 [History] Potassium Chloride [Klor-Con M20] 20 meq PO DAILY@0800 08/09/23 [History] Spironolactone 25 mg PO DAILY@0800 08/09/23 [History] polyethylene glycoL 3350 [Miralax] 17 gm PO DAILY PRN 08/09/23 [History] ALPRAZolam [Xanax] 0.25 mg PO BID PRN 3 Days #6 tab 08/15/23 [Rx] Atorvastatin Calcium [Lipitor] 80 mg PO DAILY@1700 09/16/23 [History] Baclofen 5 mg PO Q8H PRN 09/16/23 [History] Diphenoxylate HCl/Atropine [Lomotil 2.5-0.025 mg Tablet] 1 tab PO QID 09/16/23 [History] Famotidine [Pepcid] 20 mg PO DAILY@0800 09/16/23 [History] Bacitracin Zinc Oint 1 applic TOPICAL DAILY 10/22/23 [History] DAPTOmycin [Cubicin] 500 mg IVPB DAILY@1800 10/22/23 [History] Ferrous Sulfate [Feosol] 325 mg PO DAILY@0800 10/22/23 [History] Gabapentin [Neurontin] 400 mg PO BID@0800,2100 10/22/23 [History] HYDROcodone/APAP 7.5-325MG [[place] 7.5-325] 1 tab PO TID@0600,1400,2100 10/22/23 [History] INSULIN ASPART (NovoLOG) [NovoLOG (formulary)] 4 unit SQ TID@0800,1200,1700 10/22/23 [History] Ipratropium-Albuterol Nebulize [Duoneb 0.5 mg-3 mg/3 ml Soln] 3 ml INHALATION RT-Q6H PRN 10/22/23 [History] Orajel 3x Gel (Benzocaine/Menthol-Zinc Chloride 20-0.26-0.15%) 1 applic DENTAL TID PRN 10/22/23 [History] Phenyleph/Pramoxin/Glycr/W.pet [Preparation H Cream] 1 applic RECTAL TID PRN 10/22/23 [History] Benzonatate [Tessalon Perles] 200 mg PO TID PRN #21 cap 10/25/23 [Rx] Dapagliflozin Propanediol [Farxiga] 5 mg PO DAILY tab 10/25/23 [Rx] Insulin Detemir (Levemir) [Levemir] 22 unit SQ HS each 10/25/23 [Rx] Follow up Appointment(s)/Referral(s): Tramaine Tejeda MD [Primary Care Provider] - 1 Week (ECF please call for follow-up appointment.) Shaquille Car [NON-STAFF] - As Needed Discharge Disposition: TRANSFER TO SNF/ECF
--- NOTE | 2023-10-25 14:46 | P.PN ---
Subjective Progress Note Date: 10/25/23 HISTORY OF PRESENT ILLNESS This is a 63-year-old female patient of mine with history of CAD with multiple cardiac stents in mid RCA, mid LAD, obtuse marginal branch and followed by Dr. Bill closely, peripheral artery disease with previous stenting done as well has amputation of the right great toe secondary to osteomyelitis, CVA with no residual deficits, hypertension, COPD, diabetes mellitus type 2, previous multiple DVT and PE requiring chronic anticoagulation on eliquis, history of GI bleed secondary to antral gastritis, esophagitis, vitamin D deficiency, autono margot hypotension on midodrine, history of left humerus fracture, history of PAD post right AKA and CAD post PCI of the RCA with intermediate disease of the LAD, patient was recently seen at the extended care facility [facility] where she was complaining of increased pain in the left lower extremity, she was feeling sick with low-grade temperature she was swabbed for influenza AMB along with COVID- 19, she was sent to the ER for evaluation for possible DVT, that was on 10/20/2023 had a venous Doppler that showed evidence of DVT of the right common femoral vein with multiple stents in place, she was found to have a UTI, she was placed on Macrobid even though the patient was on daptomycin I believe until the of this month, was sent back to [facility], she was seen by [place] [facility] level provider at [facility] and she made the decision for the patient to be transferred back to [facility] because of not feeling well worried about sepsis, she was hypotensive with a low-grade temperature, with minimal encephalopathy, patient did appear to be a bit dehydrated, she was started on IV fluid resuscitation, she was placed back on her Tamiflu 75 mg orally twice every day, she was also kept on Macrobid along with daptomycin, she was admitted to the hospital was seen in consultation by vascular surgery for DVT and PAD of the left lower extremity as well as Dr. Heller for her influenza A, she is sitting up in bed in no apparent distress, her son was at the bedside, he was updated about her current condition she appears to be quite stable likely will be transferred back to [facility] tomorrow morning. 10/23: Patient is sitting up in the chair, she denies any chest pain, she continues to have some congested cough, she does not appear to have any fever or chills at this time, her blood glucose level is better today, she does not like the cough syrup, we will switch her to Tessalon Perles 200 mg orally 3 times every day, continue with current treatment plan, likely will be discharged back to [facility] tomorrow morning, patient was seen in consultation by wound care as well as by vascular surgery it was recommended to continue current treatment plan, she was taken off the wound VAC at this time, I will follow-up with the patient very closely. 10/24: Patient is feeling weak today, she denies any chest pain, she continues to have some congested cough, she was supposed to be getting transferred tomorrow but she was feeling not up to it today, she wanted to stay in the hospital for another 24 hours, I repeated chest x-ray was normal, her laboratory evaluation are stable, discontinue Tamiflu, discontinue Macrobid, monitor the patient very closely, hopefully patient can be discharged back tomorrow tomorrow morning. REVIEW OF SYSTEMS Constitutional: positive for fever, No chills, no night sweats. Reports weight loss. Reports weakness, Reports fatigue no lethargy. NO daytime sleepiness. HEENT: No headache. positive for dizziness. No nasal drainage or congestion. No epistaxis. No sore throat. Lungs: minimal shortness of breath, congested cough, no sputum production. No wheezing. Cardiovascular: No chest pain, no lower extremity edema. No palpitations. No paroxysmal nocturnal dyspnea. No orthopnea. No lightheadedness or dizziness. No syncopal episodes. Abdominal: Reports no abdominal pain. Reports nausea, no vomiting. positive for diarrhea. No constipation. No bloody or tarry stools. good appetite. Genitourinary: No dysuria, increased frequency, urgency. No urinary retention. Musculoskeletal: No myalgias. positive for muscle weakness, reports balance issues. Integumentary: Right AKA with minima erythema to the side with minimal drainage Neurologic: No aphasia. No facial droop. No change in mentation. No head injury. No headache. No paralysis. No paresthesia. Psychiatric: Reports depression. Reports anxiety. No mood swings. Endocrine: abnormal blood sugars. positive for weight change. No excessive sweating or thirst. No cold intolerance. PHYSICAL EXAMINATION Gen: This is a 63-year-old female. She is resting in bed i no acute distress HEENT: Head is atraumatic, normocephalic. Pupils equal, round. Sclerae is anicteric. Mucous members of the mouth are somewhat dry. NECK: Supple. No JVD. No lymphadenopathy. No thyromegaly. LUNGS: Clear to auscultation. No wheezes or rhonchi. No intercostal retractions. 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 ABDOMEN: Soft, non tender non distended and no rebound or guarding positive bowel sounds EXTREMITIES: Right above-knee amputation with small wound to the side off the wound vac NEUROLOGICAL: Patient is awake, alert and oriented x3. Cranial nerves 2 through 12 are grossly intact muscle power were 4 out of 5 in upper extremity is, and 3 out of 5 in the left lower extremity. She does have a right above-knee amputation. ASSESSMENT AND PLAN 1. Influenza A with SIRS. Patient had finished Tamiflu 75 mg orally twice every day for 5 days, discontinue that, we will continue with Tessalon Perles 200 mg orally 3 times every day as needed, continue supportive care likely moderate tomorrow morning. 2. Acute/chronic DVT of the left common femoral vein. Patient has been on Eliquis also she does appear to have significant PAD, stable at this time continue with Eliquis 5 mg orally twice every day 3. Coronary artery disease with recent stent of the RCA due to recent in-stent restenosis. Patient has had previous multiple cardiac stents to the RCA and mid LAD, obtuse marginal branch. Continue patient on Plavix 75 mg daily, Lopressor 25 mg twice daily, Atorvastatin 80 mg po daily . 4. Diabetes mellitus type 2 uncontrolled with hypoglycemia. we will continue with Humalog 4 units AC meals tid , we will continue Levemir 18 units at bedtime, along with a sliding scale insulin. 5. Hyperlipidemia. Continue Atorvastatin 80 mg po daily, monito the patient lipid panel, keep LDL 55-70. 6. Chronic DVT and PEs. Continue patient on eliquis 5 mg twice daily. 7. Orthostatic hypotension continue patient on Midodrin 5 mg po tid 8. Hypertension and hypertensive cardiovascular disease. Continue metoprolol 25 mg orally twice every day. 9. Gastroesophageal reflux disease and GI prophylaxis. Continue Pantoprazole 40 mg daily and Pepcid 20 mg once every day. 10. Diabetic neuropathy. we will continue wit Gabapentin 400 mg po tid. 11. Generalized anxiety disorder, recurrent depression. Continue Cymbalta 60 mg po bid 13. DVT prophylaxis. Continue Eliquis 5 mg po bid 14. GI prophylaxis. Continue patient on pantoprazole 40 mg once every day as well as famotidine 20 mg once every day. 15. Diabetic polyneuropathy. Continue gabapentin 400 mg orally twice every day. 16. Orthostatic hypotension or dysautonomia. Continue patient on midodrine 5 mg orally twice every day. 17. Thrombocytopenia chronic. Monitor the patient CBC 18. Hopefully [place] tomorrow morning. Objective - Vital Signs Vital signs: Vital Signs Temp 97.7 F 10/25/23 07:13 Pulse 68 10/25/23 07:13 Resp 17 10/25/23 07:13 BP 126/70 10/25/23 07:13 Pulse Ox 97 10/25/23 07:13 FiO2 Intake & Output 10/24/23 10/25/23 10/25/23 18:59 06:59 18:59 Intake Total 120 1200 Output Total 1200 900 Balance -1080 300 Intake: IV 120 Invasive Line 2 120 Oral 1200 Output: Urine 1200 900 Other: Voiding Method External Catheter External Catheter External Catheter # Voids 3 # Bowel Movements 1 - Labs CBC & Chem 7: 10/25/23 06:46 10/25/23 06:46 Labs: Abnormal Lab Results - Last 24 Hours (Table) 10/24/23 10/24/23 10/25/23 Range/Units 16:39 21:18 05:36 WBC (4.50-10.00) X 10*3/uL RBC (4.10-5.20) X 10*6/uL Hgb (12.0-15.0) g/dL Hct (37.2-46.3) % MCHC (32.0-37.0) g/dL RDW (11.5-14.5) % Plt Count (140-440) X 10*3/uL MPV (9.5-12.2) FL Neutrophils # (1.80-7.70) X 10*3/uL BUN (9.0-27.0) mg/dL BUN/Creatinine Ratio (12.00-20.00) Ratio Glucose (70-110) mg/dL POC Glucose (mg/dL) 176 H 168 H 227 H (70-110) mg/dL Calcium (8.7-10.3) mg/dL AST (13-35) U/L Alkaline Phosphatase (41-126) U/L Total Protein (6.2-8.2) g/dL Albumin (3.8-4.9) g/dL Albumin/Globulin Ratio (1.60-3.17) Ratio 10/25/23 10/25/23 10/25/23 Range/Units 06:46 06:46 11:51 WBC 3.13 L (4.50-10.00) X 10*3/uL RBC 3.30 L (4.10-5.20) X 10*6/uL Hgb 9.4 L (12.0-15.0) g/dL Hct 29.5 L (37.2-46.3) % MCHC 31.9 L (32.0-37.0) g/dL RDW 15.9 H (11.5-14.5) % Plt Count 97 L (140-440) X 10*3/uL MPV 13.0 H (9.5-12.2) FL Neutrophils # 1.64 L (1.80-7.70) X 10*3/uL BUN 8.5 L (9.0-27.0) mg/dL BUN/Creatinine Ratio 9.44 L (12.00-20.00) Ratio Glucose 231 H (70-110) mg/dL POC Glucose (mg/dL) 197 H (70-110) mg/dL Calcium 8.1 L (8.7-10.3) mg/dL AST 60 H (13-35) U/L Alkaline Phosphatase 128 H (41-126) U/L Total Protein 5.2 L (6.2-8.2) g/dL Albumin 2.5 L (3.8-4.9) g/dL Albumin/Globulin Ratio 0.93 L (1.60-3.17) Ratio Microbiology - Last 24 Hours (Table) 10/22/23 19:00 Blood Culture - Preliminary Blood 10/22/23 18:45 Blood Culture - Preliminary Blood
[2023-10-25] MEDS ORDERED: ZINC OXIDE PASTE (Z-GUARD) 1 APPLIC TOPICAL PRN (15:18)
[2023-10-25] MEDS: MAGNESIUM SULFATE-D5W PMX 1 GM in DEXTROSE/WATER 1 100ML.BAG IVPB ONE (15:23)
[2023-10-25 16:45] LABS: Glucose,Whole Blood 200 mg/dL (70-110)
[2023-10-25 20:41] LABS: Glucose,Whole Blood 213 mg/dL (70-110)
[2023-10-25] MEDS: INSULIN DETEMIR (LEVEMIR) 100 UNIT/ML SYR SQ SCH (21:57)
[2023-10-26 01:40] VITALS: PULSE 74
[2023-10-26 07:04] LABS: Glucose,Whole Blood 115 mg/dL (70-110)
[2023-10-26 08:12] VITALS: BP 124/72; RESP 16; TEMP 97.6
[2023-10-26 11:46] LABS: Glucose,Whole Blood 224 mg/dL (70-110)
[2023-10-26 14:02] LABS: ALT 32 U/L (8-44); AST 52 U/L (13-35); Albumin 2.5 g/dL (3.8-4.9); Albumin/Globulin Ratio 0.89 Ratio (1.60-3.17); Alkaline Phosphatase 136 U/L (41-126); BUN/Creat Ratio 8.88 Ratio (12.00-20.00); Blood Urea Nitrogen 7.1 mg/dL (9.0-27.0); Calcium 8.3 mg/dL (8.7-10.3); Carbon Dioxide 25.4 mmol/L (21.6-31.8); Chloride 107 mmol/L (96-109); Globulin 2.8 g/dL (1.6-3.3); Glucose 129 mg/dL (70-110); Magnesium 1.6 mg/dL (1.5-2.4); Potassium 3.5 mmol/L (3.5-5.5); Sodium 141 mmol/L (135-145); Total Bilirubin 0.4 mg/dL (0.3-1.2); Total Protein 5.3 g/dL (6.2-8.2)
[2023-10-26 15:19] LABS: Basophils # (A) 0.01 X 10*3/uL (0.00-0.10); Basophils % (A) 0.3 %; Eosinophils % (A) 9.6 %; HCT 33.1 % (37.2-46.3); HGB 10.3 g/dL (12.0-15.0); Lymphocytes # (A) 1.16 X 10*3/uL (0.90-5.00); Lymphocytes % (A) 37.1 %; MCH 28.7 pg (27.0-32.0); MCHC 31.1 g/dL (32.0-37.0); MCV 92.2 FL (80.0-97.0); Mean Platelet Volume 14.1 FL (9.5-12.2); Monocytes % (A) 6.4 %; NRBC Per 100 WBC 0 X 10*3/uL (0.00-0.01); Neutrophils # (A) 1.45 X 10*3/uL (1.80-7.70); Neutrophils % (A) 46.3 %; Platelet Count 136 X 10*3/uL (140-440); RBC 3.59 X 10*6/uL (4.10-5.20); RBC Morphology Normal (Normal); RDW 15.9 % (11.5-14.5); WBC 3.13 X 10*3/uL (4.50-10.00)
[2023-10-27] MEDS ORDERED: ERGOCALCIFEROL 1,250 MCG (50,000 IU) CAPSULE PO SCH (09:00)
== END 2023-10-26 16:29 ==
LOC: EC 17:47 → 4SSUR 20:59
PROVIDERS: ADMIT Internal Medicine; ATTEND Internal Medicine
DX: J10.1 Influenza due to other identified influenza virus with other respiratory manifestations (principal); N39.0 Urinary tract infection, site not specified; R65.10 Systemic inflammatory response syndrome (SIRS) of non-infectious origin without acute organ dysfunction; T87.89 Other complications of amputation stump; L98.492 Non-pressure chronic ulcer of skin of other sites with fat layer exposed; I70.231 Atherosclerosis of native arteries of right leg with ulceration of thigh; L97.112 Non-pressure chronic ulcer of right thigh with fat layer exposed; I82.411 Acute embolism and thrombosis of right femoral vein; E86.0 Dehydration; I95.1 Orthostatic hypotension; I82.512 Chronic embolism and thrombosis of left femoral vein; E11.622 Type 2 diabetes mellitus with other skin ulcer; I25.10 Atherosclerotic heart disease of native coronary artery without angina pectoris; E11.649 Type 2 diabetes mellitus with hypoglycemia without coma; E11.42 Type 2 diabetes mellitus with diabetic polyneuropathy; J44.9 Chronic obstructive pulmonary disease, unspecified; I11.9 Hypertensive heart disease without heart failure; D69.6 Thrombocytopenia, unspecified; E55.9 Vitamin D deficiency, unspecified; E78.5 Hyperlipidemia, unspecified; K21.9 Gastro-esophageal reflux disease without esophagitis; F41.1 Generalized anxiety disorder; F33.9 Major depressive disorder, recurrent, unspecified; F17.210 Nicotine dependence, cigarettes, uncomplicated; Z79.01 Long term (current) use of anticoagulants; Z79.02 Long term (current) use of antithrombotics/antiplatelets; Z79.4 Long term (current) use of insulin; Z79.899 Other long term (current) drug therapy; Z88.1 Allergy status to other antibiotic agents; Z89.611 Acquired absence of right leg above knee; Z86.73 Personal history of transient ischemic attack (TIA), and cerebral infarction without residual deficits; Z95.5 Presence of coronary angioplasty implant and graft; Z95.828 Presence of other vascular implants and grafts; Z87.39 Personal history of other diseases of the musculoskeletal system and connective tissue; Z86.711 Personal history of pulmonary embolism; Z87.19 Personal history of other diseases of the digestive system
CPT/HCPCS: 96361 ×3; 96365; 96366 ×3; 96367; 96375; 99285; 36415; 93005; 97163; 97166; 80053 ×4; 83605; 83735; 85025 ×4; 85610; 85730; 81001; 87040; 71045; 71046; G0378 ×5; J0696; J3475; J0878 ×3

== ENCOUNTER 2023-11-26 14:50 | Emergency (ER) | payer MEDICARE, OTHER ==
[2023-11-26 15:44] VITALS: TEMP 98.5
[2023-11-26 15:58] LABS: Basophils # (A) 0.1 k/uL (0-0.2); Basophils % (A) 1 %; Eosinophils # (A) 0.5 k/uL (0-0.7); Eosinophils % (A) 5 %; HCT 35.9 % (34.0-46.0); HGB 11.2 gm/dL (11.4-16.0); Hypochromasia Slight; Lymphocytes # (A) 2.5 k/uL (1.0-4.8); Lymphocytes % (A) 27 %; MCH 28.6 pg (25.0-35.0); MCHC 31.2 g/dL (31.0-37.0); MCV 91.8 fL (80.0-100.0); Mean Platelet Volume 8.4; Monocytes # (A) 0.4 k/uL (0-1.0); Monocytes % (A) 5 %; Neutrophils # (A) 5.7 k/uL (1.3-7.7); Neutrophils % (A) 62 %; Platelet Count 230 k/uL (150-450); RBC 3.91 m/uL (3.80-5.40); WBC 9.2 k/uL (3.8-10.6)
[2023-11-26 16:12] LABS: ALT 33 U/L (4-34); AST 46 U/L (14-36); African American GFR (CKD) 66 (>60 ml/min/1.73 sqM); Albumin 2.6 g/dL (3.5-5.0); Alkaline Phosphatase 128 U/L (38-126); Anion Gap 2 mmol/L; Blood Urea Nitrogen 27 mg/dL (7-17); Calcium 9.3 mg/dL (8.4-10.2); Carbon Dioxide 29 mmol/L (22-30); Chloride 103 mmol/L (98-107); Glucose 166 mg/dL (74-99); Lipase <10 U/L (23-300); Non-African American GFR(CKD) 57 (>60 ml/min/1.73 sqM); Phosphorus 3.1 mg/dL (2.5-4.5); Potassium 5.1 mmol/L (3.5-5.1); Sodium 134 mmol/L (137-145); Total Bilirubin 0.7 mg/dL (0.2-1.3); Total Protein 5.8 g/dL (6.3-8.2)
[2023-11-26 16:17] LABS: Appearance,Urine Turbid (Clear); Bacteria,Urine Many /hpf; Bilirubin,Urine Negative (Negative); Blood,Urine Small (Negative); Color,Urine Colorless; Glucose,Urine (UA) Negative (Negative); Ketones,Urine Negative (Negative); Leukocyte Esterase,Urine Large (Negative); Nitrite,Urine Positive (Negative); PH, Urine 5.5 (5.0-8.0); Protein,Urine Trace (Negative); RBC,Urine 37 /hpf (0-5); Specific Gravity,Urine 1.011 (1.001-1.035); Squamous Epithelial Cell,Urine 1 /hpf (0-4); Urobilinogen,Urine <2.0 mg/dL (<2.0); WBC,Urine >182 /hpf (0-5)
[2023-11-26 16:19] LABS: INR 1.2 (<1.2); Partial Thromboplastin Time 24.8 sec (22.0-30.0); Prothrombin Time 13.1 sec (10.0-12.5)
[2023-11-26 16:20] LABS: NT-Pro-B-Type Natriuretic Pept 486 pg/mL
--- NOTE | 2023-11-26 16:24 | ED ---
Weakness HPI - General Chief complaint: Altered Mental Status Stated complaint: AMS Time Seen by Provider: 11/26/23 15:23 Source: patient, EMS, RN notes reviewed, old records reviewed Mode of arrival: EMS Limitations: no limitations - History of Present Illness Initial comments: This is a 63-year-old female to the ER for evaluation today. Patient was today for altered mental status and persistent weakness severe urinary tract infection patient has no recent travel history or sick contacts but no other significant findings here in the ER. Patient concern for UTI MD Complaint: generalized weakness, lack of energy, difficulty walking -: days(s) Location: generalized Severity: moderate Severity scale (1-10): 4 Quality: tingling, aching Consistency: constant Improves with: none Worsens with: none Context: recent illness, history of similar Associated Symptoms: confusion - Related Data Home Medications Medication Instructions Recorded Confirmed Ergocalciferol (Vitamin D2) 1,250 mcg PO GUERRERO@0800 04/01/23 11/26/23 [Drisdol (50,000 Iu)] Nitroglycerin Sl Tabs [Nitrostat] 0.4 mg SL Q5M PRN 04/01/23 11/26/23 Apixaban [Eliquis] 5 mg PO BID@0800,1700 05/20/23 11/26/23 Clopidogrel [Plavix] 75 mg PO DAILY@1100 05/20/23 11/26/23 DULoxetine HCL [Cymbalta] 60 mg PO BID@0800,1700 07/04/23 11/26/23 INSULIN ASPART (NovoLOG) [NovoLOG See Protocol SQ ACHS 07/04/23 11/26/23 (formulary)] Magnesium Hydroxide [Milk of 7,200 mg PO Q48H PRN 07/04/23 11/26/23 Magnesia Concentrate] Metoprolol Tartrate [Lopressor] 25 mg PO BID@0800,1700 07/04/23 11/26/23 Midodrine [ProAmatine] 5 mg PO BID@0800,1700 07/04/23 11/26/23 Na Phos,M-B/Na Phos,Di-Ba [Fleet 133 ml RECTAL DAILY PRN 07/04/23 11/26/23 Adult] bisacodyL [Dulcolax] 10 mg RECTAL DAILY PRN 07/04/23 11/26/23 Benzocaine/Menthol Lozeng [Cepacol 1 lozenge MUCOUS MEM Q4HR PRN 08/09/23 11/26/23 lozenge] Loperamide [Imodium] 2 mg PO QID PRN 08/09/23 11/26/23 Magnesium Oxide [Mag-Ox] 400 mg PO DAILY@0808/09/23 11/26/23 Melatonin 3 mg PO HS@209908/09/23 11/26/23 Ondansetron [Zofran] 4 mg PO Q8H PRN 08/09/23 11/26/23 Potassium Chloride [Klor-Con M20] 20 meq PO DAILY@0808/09/23 11/26/23 Spironolactone 25 mg PO DAILY@79908/09/23 11/26/23 polyethylene glycoL 3350 [Miralax] 17 gm PO DAILY PRN 08/09/23 11/26/23 Atorvastatin Calcium [Lipitor] 80 mg PO DAILY@169909/16/23 11/26/23 Baclofen 5 mg PO Q8H PRN 09/16/23 11/26/23 Diphenoxylate HCl/Atropine 1 tab PO QID 09/16/23 11/26/23 [Lomotil 2.5-0.025 mg Tablet] Famotidine [Pepcid] 20 mg PO DAILY@0809/16/23 11/26/23 Bacitracin Zinc Oint 1 applic TOPICAL DAILY@0810/22/23 11/26/23 Ferrous Sulfate [Feosol] 325 mg PO DAILY@0810/22/23 11/26/23 Gabapentin [Neurontin] 400 mg PO BID@0800,17010/22/23 11/26/23 HYDROcodone/APAP 7.5-325MG [[place] 1 tab PO TID@0600,1400,209910/22/23 11/26/23 7.5-325] INSULIN ASPART (NovoLOG) [NovoLOG 4 unit SQ TID@0800,1200,1700 10/22/23 11/26/23 (formulary)] Ipratropium-Albuterol Nebulize 3 ml INHALATION RT-Q6H PRN 10/22/23 11/26/23 [Duoneb 0.5 mg-3 mg/3 ml Soln] Orajel 3x Gel 1 applic DENTAL TID PRN 10/22/23 11/26/23 (Benzocaine/Menthol-Zinc Chloride 20-0.26-0.15%) Phenyleph/Pramoxin/Glycr/W.pet 1 applic RECTAL TID PRN 10/22/23 11/26/23 [Preparation H Cream] Chlorhexidine Gluconate [Peridex] 15 ml PO BID@0800,209911/26/23 11/26/23 Insulin Detemir (Levemir) [Levemir] 22 unit SQ HS@209911/26/23 11/26/23 Previous Rx's Medication Instructions Recorded Acetaminophen Tab [Tylenol] 500 mg PO Q6HR PRN tab 07/10/23 Saline Nasal Gel [[place] Nasal Gel] 1 applic NASAL Q4HR PRN each 07/10/23 ALPRAZolam [Xanax] 0.25 mg PO BID PRN 3 Days #6 tab 08/15/23 Benzonatate [Tessalon Perles] 200 mg PO TID PRN #21 cap 10/25/23 Cephalexin [Keflex] 500 mg PO Q6HR #28 cap 11/26/23 Levofloxacin [Levaquin] 750 mg PO DAILY 1 Days #5 tab 11/29/23 Allergies Allergy/AdvReac Type Severity Reaction Status Date / Time vancomycin Allergy Rash/Hives/and Verified 11/29/23 04:25 vomiting diarrhea/Swelling Review of Systems ROS Statement: Those systems with pertinent positive or pertinent negative responses have been documented in the HPI. ROS Other: All systems not noted in ROS Statement are negative. Past Medical History Past Medical History: Coronary Artery Disease (CAD), Diabetes Mellitus, Deep Ve in Thrombosis (DVT), Vascular Disorder Additional Past Medical History / Comment(s): Recent hospitalization Aug 2023- Diarrhea, cellulitis rt AKA (AKA 06-07-23)site and PICC line placement (Power PICC SOLO2 catheter site lt arm),SKIN CA to neck. 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 Azar H+P pt c/o dysphonia. Last Myocardial Infarction Date:: 2010 History of Any Multi-Drug Resistant Organisms: MRSA Date of last positivie culture/infection: 08/09/23 MDRO Source:: Right Leg Past Surgical History: Section, Cholecystectomy, Heart Catheterization, Heart Catheterization With Stent, Orthopedic Surgery, Tonsillectomy, Tubal Ligation Additional Past Surgical History / Comment(s): Right Below Knee Amputation 04/2023, 11 Stents in left leg, fistula left thigh, full mouth teeth extraction, TRAPEASE VENA CAVA FILTER, carpel tunnel, heart stents x4 rca and lad, tumor removal from uterus. Genital warts removed, INGRID. Skin cancer removed from neck, rt great toe amputated, colonoscopy, rt rotator, left shoulder replacement, cervial fusion, rt calf debridement, rt calf skin graft (May 2023) Past Anesthesia/Blood Transfusion Reactions: No Reported Reaction Date of Last Stent Placement:: Mar 2023 Past Psychological History: Anxiety, Depression Smoking Status: Current every day smoker Past Alcohol Use History: None Reported Past Drug Use History: None Reported - Past Family History Mother Family Medical History: Cancer, Congestive Heart Failure (CHF), Diabetes Mellitus, Myocardial Infarction (PA) Additional Family Medical History / Comment(s): UTERINE CANCER Father Family Medical History: Coronary Artery Disease (CAD), Myocardial Infarction (PA) Additional Family Medical History / Comment(s): Father at age 70. Sister(s) Family Medical History: Myocardial Infarction (PA) Additional Family Medical History / Comment(s): Patient has one sister with myocardial infarction at age 55. Son(s) Family Medical History: Deep Vein Thrombosis (DVT), Pulmonary Embolus Additional Family Medical History / Comment(s): Patient has 2 sons and one has history of DVT and pulmonary embolism. General Exam General appearance: alert, in no apparent distress Head exam: Present: atraumatic, normocephalic, normal inspection Eye exam: Present: normal appearance, PERRL, EOMI. Absent: scleral icterus, conjunctival injection, periorbital swelling ENT exam: Present: normal exam, mucous membranes moist Neck exam: Present: normal inspection. Absent: tenderness, meningismus, lymphadenopathy Respiratory exam: Present: normal lung sounds bilaterally. Absent: respiratory distress, wheezes, rales, rhonchi, stridor Cardiovascular Exam: Present: regular rate, normal rhythm, normal heart sounds. Absent: systolic murmur, diastolic murmur, rubs, gallop, clicks GI/Abdominal exam: Present: soft, normal bowel sounds. Absent: distended, tenderness, guarding, rebound, rigid Extremities exam: Present: normal inspection, full ROM, normal capillary refill. Absent: tenderness, pedal edema, joint swelling, calf tenderness Back exam: Present: normal inspection Neurological exam: Present: alert, oriented X3, CN II-XII intact Psychiatric exam: Present: normal affect, normal mood Skin exam: Present: warm, dry, intact, normal color. Absent: rash Course Vital Signs 11/26/23 11/26/23 11/26/23 15:06 19:34 21:18 Temperature 98.5 F Pulse Rate 65 66 58 L Respiratory 16 18 16 Rate Blood Pressure 118/72 111/66 118/75 O2 Sat by Pulse 100 98 96 Oximetry - Reevaluation(s) Reevaluation #1: Medical records and reviewed Reevaluation #2: Patient symptoms are improved here in the ER Reevaluation #3: Patient informed of results and questions answered Reevaluation #4: Was pt. sent in by a medical professional or institution (, PA, ANIMAL BIOLOGIST, urgent care, hospital, or correction...) When possible be specific @ -no Did you speak to anyone other than the patient for history (EMS, parent, family, police, friend...)? What history was obtained from this source @ -no Did you review nursing and triage notes (agree or disagree)? Why? @ -agree Are old charts reviewed (outside hosp., previous admission, EMS record, old EKG, old radiological studies, urgent care reports/EKG's, correction records)? Report findings @ -yes Differential Diagnosis (chest pain, altered mental status, abdominal pain women, abdominal pain men, vaginal bleeding, weakness, fever, dyspnea, syncope, headache, dizziness, GI bleed, back pain, seizure, CVA, palpatations, mental health, musculoskeletal)? @ -prior EKG interpreted by me (3pts min.). @ -yes X-rays interpreted by me (1pt min.). @ -no CT interpreted by me (1pt min.). @ -Yes negative for acute disease U/S interpreted by me (1pt. min.). @ -no What testing was considered but not performed or refused? (CT, X-rays, U/S, labs)? Why? @ -none What meds were considered but not given or refused? Why? @ -none Did you discuss the management of the patient with other professionals (professionals i.e. , PA, ANIMAL BIOLOGIST, lab, RT, psych nurse, social sciences department chair, transport driver, teacher, detention officer, counseling case manager)? Give summary @ -no Was smoking cessation discussed for >3mins.? @ -no Was critical care preformed (if so, how long)? @ -no Were there social determinants of health that impacted care today? How? (Homelessness, low income, unemployed, alcoholism, drug addiction, transport ation, low edu. Level, literacy, decrease access to med. care, snf, rehab)? @ -none Was there de-escalation of care discussed even if they declined (Discuss DNR or withdrawal of care, Hospice)? DNR status @ -no What co-morbidities impacted this encounter? (DM, HTN, Smoking, COPD, CAD, Cancer, CVA, ARF, Chemo, Hep., AIDS, mental health diagnosis, sleep apnea, morbid obesity)? @ -none Was patient admitted / discharged? Hospital course, mention meds given and route, prescriptions, significant lab abnormalities, going to OR and other pertinent info. @ -66 female to the ER for evaluation of persistent severe weakness. Patient symptoms are relatively improved here in the ER patient feels well can be discharged home Undiagnosed new problem with uncertain prognosis? @ -no Drug Therapy requiring intensive monitoring for toxicity (Heparin, Nitro, Insulin, Cardizem)? @ -no Were any procedures done? @ -no Diagnosis/symptom? @ -Significant weakness UTI altered mental status Acute, or Chronic, or Acute on Chronic? @ -Acute Uncomplicated (without systemic symptoms) or Complicated (systemic symptoms)? @ -Complicated Side effects of treatment? @ -no Exacerbation, Progression, or Severe Exacerbation? @ -exacerbation Poses a threat to life or bodily function? How? (Chest pain, USA, PA, pneumonia, PE, COPD, DKA, ARF, appy, cholecystitis, CVA, Diverticulitis, Homicidal, Suicidal, threat to staff... and all critical care pts) @ -yes Reevaluation #5: Differential Weakness: Hypoglycemia, shock, sepsis, hyponatremia, anemia, infection, PA, ETOH, adverse medicine reaction, overdose, stroke, this is not meant to be an all-inclusive list. Differential Altered Mental Status: Hypoglycemia, DKA, hypercapnia, ETOH, overdose, CO poisoning, trauma, myxedema coma, HTN encephalopathy, infection, encephalitis, psychosis, intercranial hemorrhage, hepatic encephalopathy, meningitis, CVA, this is not meant to be an all-inclusive list EKG Findings - EKG Comments: EKG Findings:: EKG sinus 67 OK 157 QRS 94 QTc 374 - EKG Results: EKG: interpreted by GRACE Medical Decision Making - Medical Decision Making 63 female to the ER for evaluation of altered mental status and weakness., Delirium and dementia and weakness, urinary tract infection placed antibiotics and can be discharged home - Lab Data Result diagrams: 11/26/23 15:44 11/26/23 15:44 Lab Results 11/26/23 11/26/23 11/26/23 Range/Units 15:44 15:44 15:44 WBC 9.2 (3.8-10.6) k/uL RBC 3.91 (3.80-5.40) m/uL Hgb 11.2 L (11.4-16.0) gm/dL Hct 35.9 (34.0-46.0) % MCV 91.8 (80.0-100.0) fL MCH 28.6 (25.0-35.0) pg MCHC 31.2 (31.0-37.0) g/dL RDW 15.0 (11.5-15.5) % Plt Count 230 (150-450) k/uL MPV 8.4 Neutrophils % 62 % Lymphocytes % 27 % Monocytes % 5 % Eosinophils % 5 % Basophils % 1 % Neutrophils # 5.7 (1.3-7.7) k/uL Lymphocytes # 2.5 (1.0-4.8) k/uL Monocytes # 0.4 (0-1.0) k/uL Eosinophils # 0.5 (0-0.7) k/uL Basophils # 0.1 (0-0.2) k/uL Hypochromasia Slight PT 13.1 H (10.0-12.5) sec INR 1.2 H (<1.2) APTT 24.8 (22.0-30.0) sec Sodium 134 L (137-145) mmol/L Potassium 5.1 (3.5-5.1) mmol/L Chloride 103 (98-107) mmol/L Carbon Dioxide 29 (22-30) mmol/L Anion Gap 2 mmol/L BUN 27 H (7-17) mg/dL Creatinine 1.05 H (0.52-1.04) mg/dL Est GFR (CKD-EPI)AfAm 66 (>60 ml/min/1.73 sqM) Est GFR (CKD-EPI)NonAf 57 (>60 ml/min/1.73 sqM) Glucose 166 H (74-99) mg/dL Plasma Lactic Acid [place] (0.7-2.0) mmol/L Calcium 9.3 (8.4-10.2) mg/dL Phosphorus 3.1 (2.5-4.5) mg/dL Magnesium 2.0 (1.6-2.3) mg/dL Total Bilirubin 0.7 (0.2-1.3) mg/dL AST 46 H (14-36) U/L ALT 33 (4-34) U/L Alkaline Phosphatase 128 H (38-126) U/L Troponin I (0.000-0.034) ng/mL NT-Pro-B Natriuret Pep 486 pg/mL Total Protein 5.8 L (6.3-8.2) g/dL Albumin 2.6 L (3.5-5.0) g/dL Lipase <10 L (23-300) U/L TSH 1.330 (0.465-4.680) mIU/L Urine Color Urine Appearance (Clear) Urine pH (5.0-8.0) Ur Specific [place] (1.001-1.035) Urine Protein (Negative) Urine Glucose (UA) (Negative) Urine Ketones (Negative) Urine Blood (Negative) Urine Nitrite (Negative) Urine Bilirubin (Negative) Urine Urobilinogen (<2.0) mg/dL Ur Leukocyte Esterase (Negative) Urine RBC (0-5) /hpf Urine WBC (0-5) /hpf Urine WBC Clumps (None) /hpf Ur Squamous Epith Cells (0-4) /hpf Urine Bacteria (None) /hpf 11/26/23 11/26/23 11/26/23 Range/Units 15:44 15:44 15:44 WBC (3.8-10.6) k/uL RBC (3.80-5.40) m/uL Hgb (11.4-16.0) gm/dL Hct (34.0-46.0) % MCV (80.0-100.0) fL MCH (25.0-35.0) pg MCHC (31.0-37.0) g/dL RDW (11.5-15.5) % Plt Count (150-450) k/uL MPV Neutrophils % % Lymphocytes % % Monocytes % % Eosinophils % % Basophils % % Neutrophils # (1.3-7.7) k/uL Lymphocytes # (1.0-4.8) k/uL Monocytes # (0-1.0) k/uL Eosinophils # (0-0.7) k/uL Basophils # (0-0.2) k/uL Hypochromasia PT (10.0-12.5) sec INR (<1.2) APTT (22.0-30.0) sec Sodium (137-145) mmol/L Potassium (3.5-5.1) mmol/L Chloride (98-107) mmol/L Carbon Dioxide (22-30) mmol/L Anion Gap mmol/L BUN (7-17) mg/dL Creatinine (0.52-1.04) mg/dL Est GFR (CKD-EPI)AfAm (>60 ml/min/1.73 sqM) Est GFR (CKD-EPI)NonAf (>60 ml/min/1.73 sqM) Glucose (74-99) mg/dL Plasma Lactic Acid [place] 1.2 (0.7-2.0) mmol/L Calcium (8.4-10.2) mg/dL Phosphorus (2.5-4.5) mg/dL Magnesium (1.6-2.3) mg/dL Total Bilirubin (0.2-1.3) mg/dL AST (14-36) U/L ALT (4-34) U/L Alkaline Phosphatase (38-126) U/L Troponin I <0.012 (0.000-0.034) ng/mL NT-Pro-B Natriuret Pep pg/mL Total Protein (6.3-8.2) g/dL Albumin (3.5-5.0) g/dL Lipase (23-300) U/L TSH (0.465-4.680) mIU/L Urine Color Colorless Urine Appearance Turbid H (Clear) Urine pH 5.5 (5.0-8.0) Ur Specific [place] 1.011 (1.001-1.035) Urine Protein Trace H (Negative) Urine Glucose (UA) Negative (Negative) Urine Ketones Negative (Negative) Urine Blood Small H (Negative) Urine Nitrite Positive H (Negative) Urine Bilirubin Negative (Negative) Urine Urobilinogen <2.0 (<2.0) mg/dL Ur Leukocyte Esterase Large H (Negative) Urine RBC 37 H (0-5) /hpf Urine WBC >182 H (0-5) /hpf Urine WBC Clumps Many H (None) /hpf Ur Squamous Epith Cells 1 (0-4) /hpf Urine Bacteria Many H (None) /hpf - EKG Data -: EKG Interpreted by Il - Radiology Data Radiology results: report reviewed (CT of the abdomen pelvis is negative for acute disease), image reviewed Disposition Clinical Impression: Delirium due to general medical condition, Weakness, UTI (urinary tract infection), Dementia Disposition: HOME SELF-CARE Condition: Fair Instructions (If sedation given, give patient instructions): Urinary Tract Infection in Women (ED) Prescriptions: Cephalexin [Keflex] 500 mg PO Q6HR #28 cap Is patient prescribed a controlled substance at d/c from ED?: No Referrals: Tramaine Tejeda MD [Primary Care Provider] - 1-2 days Time of Disposition: 19:00
[2023-11-26] MEDS: ONDANSETRON 4 MG/2 ML VIAL IVP STA (16:39)
[2023-11-26] MEDS: SODIUM CHLORIDE 0.9% 1,000 ML IV STA (16:39)
[2023-11-26] MEDS: MORPHINE SULFATE 4 MG/ML SYRINGE IVP STA (16:43)
--- NOTE | 2023-11-26 18:14 | CT ---
EXAMINATION TYPE: CT abdomen pelvis w con DATE OF EXAM: 11/26/2023 COMPARISON: 07/04/2023 INDICATION: abd pain recent hospital admission DLP: 1232.7 mGycm, Automated exposure control for dose reduction was used. CONTRAST: 100 mL of Isovue 300. Study performed without Oral Contrast TECHNIQUE: Axial images were obtained from above the diaphragm to the pubic rami in the axial plane a t 5 mm thick sections. Reconstructed images are reviewed on the computer in the coronal plane. FINDINGS: Limited CT sections are obtained the lung bases. The lung bases are clear. CT ABDOMEN: Liver: There is moderate fatty infiltration of liver. No discrete masses are evident. Spleen: Normal Pancreas: Atrophic Adrenal glands: Right adrenal gland is thickened at 1.4 cm. Left adrenal gland appears normal Gallbladder: Surgically absent Kidneys: No masses are evident. No hydronephrosis is present. No cysts are present. Delayed images were obtained through the kidneys, which remain unremarkable. Aorta: Vascular calcification is within the aorta. Inferior vena cava: Filter is within the inferior vena cava. This appears to be above the renal veins . Iliac vein stents appear to be present. CT PELVIS: No suspicious bowel abnormality is radiographically apparent. This study is without oral contrast monique iting evaluation. Appendix: Normal as visualized. Urinary bladder: Normal. Genitourinary structures: Uterus is normal. Adnexa are normal. Osseous structures: Degenerative changes are within the L5-S1 disc space. Facet hypertrophy is presen t. Some L5-S1 canal narrowing may be present. Multiple varicoses are within the lower subcutaneous tissue in the lower pelvis. IMPRESSION: 1. No acute abnormality identified. 2. Moderate fatty infiltration of liver. 3. Thickening of the right adrenal gland. 4. Inferior vena cava filter appears below the renal veins
[2023-11-26] MEDS: CEPHALEXIN 500MG STARTER PACK 4 CAP BTL PO STA (21:17)
[2023-11-26 21:44] VITALS: BP 118/75; PULSE 58; RESP 16
== END 2023-11-26 21:56 | disposition home or self-care (01) ==
LOC: EC 14:50
DX: F03.90 Unspecified dementia, unspecified severity, without behavioral disturbance, psychotic disturbance, mood disturbance, and anxiety (principal); F05 Delirium due to known physiological condition; N39.0 Urinary tract infection, site not specified; F17.200 Nicotine dependence, unspecified, uncomplicated; Z88.1 Allergy status to other antibiotic agents; Z86.73 Personal history of transient ischemic attack (TIA), and cerebral infarction without residual deficits
CPT/HCPCS: 36415; 93005; 83880; 80053; 83605; 83690; 83735; 84100; 84443; 84484; 85025; 85610; 85730; 81001; 87040; 74177; 99285; 96365; 96366 ×2; 96375 ×2; 96361; J2270; J2405; J0696; Q9967

== ENCOUNTER 2023-11-29 04:00 | Emergency (ER) | payer MEDICARE, OTHER ==
[2023-11-29 04:29] VITALS: BP 113/68; PULSE 62; RESP 16; TEMP 97.6
--- NOTE | 2023-11-29 05:20 | ED ---
Weakness HPI - General Source: patient, EMS Mode of arrival: EMS Limitations: no limitations - History of Present Illness MD Complaint: generalized weakness -: days(s) Location: generalized Improves with: none Worsens with: none Associated Symptoms: denies other symptoms <Javy Salazar - Last Filed: 11/29/23 06:12> <ShahramjaimieAle Merline - Last Filed: 11/29/23 08:54> - General Chief complaint: Weakness Stated complaint: Infection Time Seen by Provider: 11/29/23 04:05 - History of Present Illness Initial comments: Patient is a 63-year-old woman [facility] to have evaluation for suspected urinary tract infection. The patient reportedly having more weakness and feeling less active than usual. Patient reports that she does feel weak and fatigued. She denies focal weakness but states she feels weak everywhere. Patient was being treated for urinary tract infection. No fevers reported. Patient denies cough, dyspnea, chest pain abdominal pain, vomiting or diarrhea. (Javy Salazar) - Related Data Home Medications Medication Instructions Recorded Confirmed Ergocalciferol (Vitamin D2) 1,250 mcg PO GUERRERO@0800 04/01/23 11/26/23 [Drisdol (50,000 Iu)] Nitroglycerin Sl Tabs [Nitrostat] 0.4 mg SL Q5M PRN 04/01/23 11/26/23 Apixaban [Eliquis] 5 mg PO BID@0800,1700 05/20/23 11/26/23 Clopidogrel [Plavix] 75 mg PO DAILY@1100 05/20/23 11/26/23 DULoxetine HCL [Cymbalta] 60 mg PO BID@0800,1700 07/04/23 11/26/23 INSULIN ASPART (NovoLOG) [NovoLOG See Protocol SQ ACHS 07/04/23 11/26/23 (formulary)] Magnesium Hydroxide [Milk of 7,200 mg PO Q48H PRN 07/04/23 11/26/23 Magnesia Concentrate] Metoprolol Tartrate [Lopressor] 25 mg PO BID@0800,1700 07/04/23 11/26/23 Midodrine [ProAmatine] 5 mg PO BID@0800,1700 07/04/23 11/26/23 Na Phos,M-B/Na Phos,Di-Ba [Fleet 133 ml RECTAL DAILY PRN 07/04/23 11/26/23 Adult] bisacodyL [Dulcolax] 10 mg RECTAL DAILY PRN 07/04/23 11/26/23 Benzocaine/Menthol Lozeng [Cepacol 1 lozenge MUCOUS MEM Q4HR PRN 08/09/23 11/26/23 lozenge] Loperamide [Imodium] 2 mg PO QID PRN 08/09/23 11/26/23 Magnesium Oxide [Mag-Ox] 400 mg PO DAILY@0808/09/23 11/26/23 Melatonin 3 mg PO HS@209908/09/23 11/26/23 Ondansetron [Zofran] 4 mg PO Q8H PRN 08/09/23 11/26/23 Potassium Chloride [Klor-Con M20] 20 meq PO DAILY@79908/09/23 11/26/23 Spironolactone 25 mg PO DAILY@79908/09/23 11/26/23 polyethylene glycoL 3350 [Miralax] 17 gm PO DAILY PRN 08/09/23 11/26/23 Atorvastatin Calcium [Lipitor] 80 mg PO DAILY@169909/16/23 11/26/23 Baclofen 5 mg PO Q8H PRN 09/16/23 11/26/23 Diphenoxylate HCl/Atropine 1 tab PO QID 09/16/23 11/26/23 [Lomotil 2.5-0.025 mg Tablet] Famotidine [Pepcid] 20 mg PO DAILY@79909/16/23 11/26/23 Bacitracin Zinc Oint 1 applic TOPICAL DAILY@79910/22/23 11/26/23 Ferrous Sulfate [Feosol] 325 mg PO DAILY@79910/22/23 11/26/23 Gabapentin [Neurontin] 400 mg PO BID@0800,17010/22/23 11/26/23 HYDROcodone/APAP 7.5-325MG [[place] 1 tab PO TID@0600,1400,2100 10/22/23 11/26/23 7.5-325] INSULIN ASPART (NovoLOG) [NovoLOG 4 unit SQ TID@0800,1200,1700 10/22/23 11/26/23 (formulary)] Ipratropium-Albuterol Nebulize 3 ml INHALATION RT-Q6H PRN 10/22/23 11/26/23 [Duoneb 0.5 mg-3 mg/3 ml Soln] Orajel 3x Gel 1 applic DENTAL TID PRN 10/22/23 11/26/23 (Benzocaine/Menthol-Zinc Chloride 20-0.26-0.15%) Phenyleph/Pramoxin/Glycr/W.pet 1 applic RECTAL TID PRN 10/22/23 11/26/23 [Preparation H Cream] Chlorhexidine Gluconate [Peridex] 15 ml PO BID@0800,2100 11/26/23 11/26/23 Insulin Detemir (Levemir) [Levemir] 22 unit SQ HS@209911/26/23 11/26/23 Previous Rx's Medication Instructions Recorded Acetaminophen Tab [Tylenol] 500 mg PO Q6HR PRN tab 07/10/23 Saline Nasal Gel [[place] Nasal Gel] 1 applic NASAL Q4HR PRN each 07/10/23 ALPRAZolam [Xanax] 0.25 mg PO BID PRN 3 Days #6 tab 08/15/23 Benzonatate [Tessalon Perles] 200 mg PO TID PRN #21 cap 10/25/23 Cephalexin [Keflex] 500 mg PO Q6HR #28 cap 11/26/23 Levofloxacin [Levaquin] 750 mg PO DAILY 1 Days #5 tab 11/29/23 Allergies Allergy/AdvReac Type Severity Reaction Status Date / Time vancomycin Allergy Rash/Hives/and Verified 11/29/23 04:25 vomiting diarrhea/Swelling Review of Systems ROS Other: All systems not noted in ROS Statement are negative. Constitutional: Reports: weakness. Denies: fever, chills Eyes: Denies: vision change Respiratory: Denies: cough, dyspnea, wheezes Cardiovascular: Denies: chest pain, palpitations, orthopnea, edema Gastrointestinal: Denies: abdominal pain, nausea, vomiting, diarrhea Genitourinary: Denies: dysuria, hematuria Musculoskeletal: Denies: back pain Skin: Denies: rash Neurological: Denies: headache, weakness <Javy Salazar - Last Filed: 11/29/23 06:12> ROS Other: All systems not noted in ROS Statement are negative. <Ale Silverio - Last Filed: 11/29/23 08:54> ROS Statement: Those systems with pertinent positive or pertinent negative responses have been documented in the HPI. Past Medical History Past Medical History: Coronary Artery Disease (CAD), Diabetes Mellitus, Deep Vein Thrombosis (DVT), Vascular Disorder Additional Past Medical History / Comment(s): Recent hospitalization Aug 2023- Diarrhea, cellulitis rt AKA (AKA 06-07-23)site and PICC line placement (Power PICC SOLO2 catheter site lt arm),SKIN CA to neck. 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 09-16-23 pt has skin tears to both arms-rt is open and lt is healed, Pt states she's "forgetful", per Dr. Azar H+P pt c/o dysphonia. Last Myocardial Infarction Date:: 2010 History of Any Multi-Drug Resistant Organisms: MRSA Date of last positivie culture/infection: 08/09/23 MDRO Source:: Right Leg Past Surgical History: Section, Cholecystectomy, Heart Catheterization, Heart Catheterization With Stent, Orthopedic Surgery, Tonsillectomy, Tubal Ligation Additional Past Surgical History / Comment(s): Right Below Knee Amputation 04/2023, 11 Stents in left leg, fistula left thigh, full mouth teeth extraction, TRAPEASE VENA CAVA FILTER, carpel tunnel, heart stents x4 rca and lad, tumor removal from uterus. Genital warts removed, INGRID. Skin cancer removed from neck, rt great toe amputated, colonoscopy, rt rotator, left shoulder replacement, cervial fusion, rt calf debridement, rt calf skin graft (May 2023) Past Anesthesia/Blood Transfusion Reactions: No Reported Reaction Date of Last Stent Placement:: Mar 2023 Past Psychological History: Anxiety, Depression Smoking Status: Current every day smoker Past Alcohol Use History: None Reported Past Drug Use History: None Reported - Past Family History Mother Family Medical History: Cancer, Congestive Heart Failure (CHF), Diabetes Mellitus, Myocardial Infarction (IA) Additional Family Medical History / Comment(s): UTERINE CANCER Father Family Medical History: Coronary Artery Disease (CAD), Myocardial Infarction (IA) Additional Family Medical History / Comment(s): Father at age 70. Sister(s) Family Medical History: Myocardial Infarction ([place]) Additional Family Medical History / Comment(s): Patient has one sister with myocardial infarction at age 55. Son(s) Family Medical History: Deep Vein Thrombosis (DVT), Pulmonary Embolus Additional Family Medical History / Comment(s): Patient has 2 sons and one has history of DVT and pulmonary embolism. <MartinJavy Last Filed: 11/29/23 06:12> General Exam Limitations: no limitations General appearance: alert, in no apparent distress Head exam: Present: atraumatic, normocephalic Eye exam: Present: normal appearance. Absent: scleral icterus, conjunctival injection ENT exam: Present: mucous membranes dry Neck exam: Present: normal inspection Respiratory exam: Present: normal lung sounds bilaterally. Absent: respiratory distress, wheezes, rales, rhonchi, stridor Cardiovascular Exam: Present: regular rate, normal rhythm, normal heart sounds. Absent: systolic murmur, diastolic murmur, rubs, gallop GI/Abdominal exam: Present: soft. Absent: distended, tenderness, guarding, rebound, rigid, mass Extremities exam: Present: normal inspection, normal capillary refill, other (Right leg above-knee amputation). Absent: pedal edema, calf tenderness Neurological exam: Present: alert, oriented X3, CN II-XII intact. Absent: motor sensory deficit Skin exam: Present: warm, dry, intact, normal color. Absent: rash <MartinJavy Filed: 11/29/23 06:12> Course Vital Signs 11/29/23 04:18 Temperature 97.6 F Pulse Rate 62 Respiratory 16 Rate Blood Pressure 113/68 O2 Sat by Pulse 95 Oximetry EKG Findings - EKG Results: EKG: interpreted by ERMD, sinus rhythm (Rate 62 bpm), normal axis, normal QRS - Blocks, [place], Hypertrophy, ST Abn: Repolarization changes or abnormalities: nonspecific abnormality, ST segment, and/or T wave <Javy Salazar Filed: 11/29/23 06:12> Medical Decision Making - Lab Data Result diagrams: 11/29/23 05:57 11/29/23 05:57 <Ale Silverio - Last Filed: 11/29/23 08:54> - Medical Decision Making Was patient admitted / discharged? Hospital course, mention meds given and route, prescriptions, significant lab abnormalities, going to OR and other pertinent info. @ -Upon arrival patient was seen and evaluated in room 21. Thorough history and physical exam was performed. Patient is reporting to epigastric discomfort. She does have chronic abdominal pain as the patient is well-known to me. She is alert and oriented x 4 and able to answer all her questions appropriately. She states that she feels weak. At this time the patient does not meet any sepsis criteria. Her urine continues to demonstrate some bacteria however she has only been on antibiotics for 2 days. As the patient does not feel any improvement thus far, I did offer changing her antibiotics for which she was agreeable. She already follows with Dr. Vitale and has a PICC line. Patient will be adjusted to Levaquin. She will be discharged back. Recommended evaluation by Dr. Tejeda who is also very familiar with the patient. Patient was agreeable to this plan she was discharged in stable condition Undiagnosed new problem with uncertain prognosis? @ -No Drug Therapy requiring intensive monitoring for toxicity (Heparin, Nitro, Insulin, Cardizem)? @ -No Were any procedures done? @ -No Diagnosis/symptom? @ -Generalized weakness, epigastric discomfort, recent diagnosis of UTI with continued bacteria Acute, or Chronic, or Acute on Chronic? @ -Acute Uncomplicated (without systemic symptoms) or Complicated (systemic symptoms)? @ -Complicated Side effects of treatment? @ -No Exacerbation, Progression, or Severe Exacerbation? @ -No Poses a threat to life or bodily function? How? (Chest pain, [place], [place], pneumonia, PE, COPD, DKA, ARF, appy, cholecystitis, CVA, Diverticulitis, Homicidal, Suicidal, threat to staff... and all critical care pts) @ -No (Ale Silverio) - Lab Data Lab Results 11/29/23 11/29/23 11/29/23 Range/Units 05:57 05:57 05:57 WBC 6.3 (3.8-10.6) k/uL RBC 3.68 L (3.80-5.40) m/uL Hgb 10.5 L (11.4-16.0) gm/dL Hct 34.1 (34.0-46.0) % MCV 92.5 (80.0-100.0) fL MCH 28.6 (25.0-35.0) pg MCHC 30.9 L (31.0-37.0) g/dL RDW 15.0 (11.5-15.5) % Plt Count 178 (150-450) k/uL MPV 8.4 Neutrophils % 64 % Lymphocytes % 23 % Monocytes % 5 % Eosinophils % 6 % Basophils % 1 % Neutrophils # 4.0 (1.3-7.7) k/uL Lymphocytes # 1.4 (1.0-4.8) k/uL Monocytes # 0.3 (0-1.0) k/uL Eosinophils # 0.4 (0-0.7) k/uL Basophils # 0.0 (0-0.2) k/uL Hypochromasia Moderate PT 12.3 (10.0-12.5) sec INR 1.2 H (<1.2) APTT 23.9 (22.0-30.0) sec Sodium (137-145) mmol/L Potassium (3.5-5.1) mmol/L Chloride (98-107) mmol/L Carbon Dioxide (22-30) mmol/L Anion Gap mmol/L BUN (7-17) mg/dL Creatinine (0.52-1.04) mg/dL Est GFR (CKD-EPI)AfAm (>60 ml/min/1.73 sqM) Est GFR (CKD-EPI)NonAf (>60 ml/min/1.73 sqM) Glucose (74-99) mg/dL Plasma Lactic Acid Mynor (0.7-2.0) mmol/L Calcium (8.4-10.2) mg/dL Magnesium (1.6-2.3) mg/dL Total Bilirubin (0.2-1.3) mg/dL AST (14-36) U/L ALT (4-34) U/L Alkaline Phosphatase (38-126) U/L Troponin I (0.000-0.034) ng/mL Total Protein (6.3-8.2) g/dL Albumin (3.5-5.0) g/dL Urine Color Colorless Urine Appearance Clear (Clear) Urine pH 5.0 (5.0-8.0) Ur Specific [place] 1.007 (1.001-1.035) Urine Protein Negative (Negative) Urine Glucose (UA) Negative (Negative) Urine Ketones Negative (Negative) Urine Blood Small H (Negative) Urine Nitrite Negative (Negative) Urine Bilirubin Negative (Negative) Urine Urobilinogen <2.0 (<2.0) mg/dL Ur Leukocyte Esterase Large H (Negative) Urine RBC 5 (0-5) /hpf Urine WBC 37 H (0-5) /hpf Urine Bacteria Rare H (None) /hpf 11/29/23 11/29/23 11/29/23 Range/Units 05:57 05:57 05:57 WBC (3.8-10.6) k/uL RBC (3.80-5.40) m/uL Hgb (11.4-16.0) gm/dL Hct (34.0-46.0) % MCV (80.0-100.0) fL MCH (25.0-35.0) pg MCHC (31.0-37.0) g/dL RDW (11.5-15.5) % Plt Count (150-450) k/uL MPV Neutrophils % % Lymphocytes % % Monocytes % % Eosinophils % % Basophils % % Neutrophils # (1.3-7.7) k/uL Lymphocytes # (1.0-4.8) k/uL Monocytes # (0-1.0) k/uL Eosinophils # (0-0.7) k/uL Basophils # (0-0.2) k/uL Hypochromasia PT (10.0-12.5) sec INR (<1.2) APTT (22.0-30.0) sec Sodium 136 L (137-145) mmol/L Potassium 4.5 (3.5-5.1) mmol/L Chloride 105 (98-107) mmol/L Carbon Dioxide 31 H (22-30) mmol/L Anion Gap 0 mmol/L BUN 18 H (7-17) mg/dL Creatinine 1.08 H (0.52-1.04) mg/dL Est GFR (CKD-EPI)AfAm 64 (>60 ml/min/1.73 sqM) Est GFR (CKD-EPI)NonAf 55 (>60 ml/min/1.73 sqM) Glucose 177 H (74-99) mg/dL Plasma Lactic Acid Mynor 1.2 (0.7-2.0) mmol/L Calcium 9.2 (8.4-10.2) mg/dL Magnesium 1.7 (1.6-2.3) mg/dL Total Bilirubin 0.6 (0.2-1.3) mg/dL AST 76 H (14-36) U/L ALT 46 H (4-34) U/L Alkaline Phosphatase 142 H (38-126) U/L Troponin I <0.012 (0.000-0.034) ng/mL Total Protein 5.8 L (6.3-8.2) g/dL Albumin 2.6 L (3.5-5.0) g/dL Urine Color Urine Appearance (Clear) Urine pH (5.0-8.0) Ur Specific [place] (1.001-1.035) Urine Protein (Negative) Urine Glucose (UA) (Negative) Urine Ketones (Negative) Urine Blood (Negative) Urine Nitrite (Negative) Urine Bilirubin (Negative) Urine Urobilinogen (<2.0) mg/dL Ur Leukocyte Esterase (Negative) Urine RBC (0-5) /hpf Urine WBC (0-5) /hpf Urine Bacteria (None) /hpf Disposition <Javy Salazar - Last Filed: 11/29/23 06:12> Is patient prescribed a controlled substance at d/c from ED?: No Time of Disposition: 08:27 <Ale Silverio - Last Filed: 11/29/23 08:54> Clinical Impression: UTI (urinary tract infection) Disposition: HOME SELF-CARE Condition: Stable Instructions (If sedation given, give patient instructions): Urinary Tract Infection in Women (ED) Additional Instructions: Your antibiotic will be changed at this time. Follow-up with your primary care doctor for further management of your symptoms Prescriptions: Levofloxacin [Levaquin] 750 mg PO DAILY 1 Days #5 tab Referrals: Tramaine Tejeda MD [Primary Care Provider] - 1-2 days
[2023-11-29 06:17] LABS: Basophils % (A) 1 %; Eosinophils # (A) 0.4 k/uL (0-0.7); Eosinophils % (A) 6 %; HCT 34.1 % (34.0-46.0); HGB 10.5 gm/dL (11.4-16.0); Hypochromasia Moderate; Lymphocytes # (A) 1.4 k/uL (1.0-4.8); Lymphocytes % (A) 23 %; MCH 28.6 pg (25.0-35.0); MCHC 30.9 g/dL (31.0-37.0); MCV 92.5 fL (80.0-100.0); Mean Platelet Volume 8.4; Monocytes # (A) 0.3 k/uL (0-1.0); Monocytes % (A) 5 %; Neutrophils % (A) 64 %; Platelet Count 178 k/uL (150-450); RBC 3.68 m/uL (3.80-5.40); WBC 6.3 k/uL (3.8-10.6)
[2023-11-29 06:25] LABS: INR 1.2 (<1.2); Partial Thromboplastin Time 23.9 sec (22.0-30.0); Prothrombin Time 12.3 sec (10.0-12.5)
[2023-11-29 06:34] LABS: ALT 46 U/L (4-34); AST 76 U/L (14-36); African American GFR (CKD) 64 (>60 ml/min/1.73 sqM); Albumin 2.6 g/dL (3.5-5.0); Alkaline Phosphatase 142 U/L (38-126); Anion Gap 0 mmol/L; Blood Urea Nitrogen 18 mg/dL (7-17); Calcium 9.2 mg/dL (8.4-10.2); Carbon Dioxide 31 mmol/L (22-30); Chloride 105 mmol/L (98-107); Glucose 177 mg/dL (74-99); Magnesium 1.7 mg/dL (1.6-2.3); Non-African American GFR(CKD) 55 (>60 ml/min/1.73 sqM); Potassium 4.5 mmol/L (3.5-5.1); Sodium 136 mmol/L (137-145); Total Bilirubin 0.6 mg/dL (0.2-1.3); Total Protein 5.8 g/dL (6.3-8.2)
--- NOTE | 2023-11-29 07:08 | XR ---
EXAMINATION TYPE: XR chest 2V DATE OF EXAM: 11/29/2023 COMPARISON: 10/24/2023 HISTORY: Shortness of breath TECHNIQUE: Frontal and lateral views of the chest are obtained. FINDINGS: Scattered senescent parenchymal changes noted. No evidence for infiltrate. No evidence for atelectasis. Heart size is stable. Mediastinal structures are stable and grossly unremarkable. No evidence for hilar prominence. Degenerative changes dorsal spine. IMPRESSION: 1. No evidence for acute pulmonary disease.
[2023-11-29 08:13] LABS: Appearance,Urine Clear (Clear); Bacteria,Urine Rare /hpf; Bilirubin,Urine Negative (Negative); Blood,Urine Small (Negative); Color,Urine Colorless; Glucose,Urine (UA) Negative (Negative); Ketones,Urine Negative (Negative); Leukocyte Esterase,Urine Large (Negative); Nitrite,Urine Negative (Negative); Protein,Urine Negative (Negative); RBC,Urine 5 /hpf (0-5); Specific Gravity,Urine 1.007 (1.001-1.035); Urobilinogen,Urine <2.0 mg/dL (<2.0); WBC,Urine 37 /hpf (0-5)
[2023-11-29] MEDS: cefTRIAXone IN SWFI 1,000 MG/10 ML SYRINGE IVP STA (09:12)
[2023-11-29] MEDS: FAMOTIDINE 20 MG/2 ML VIAL IV STA (09:13)
== END 2023-11-29 19:11 | disposition home or self-care (01) ==
LOC: EC 04:00
DX: N39.0 Urinary tract infection, site not specified (principal); R53.1 Weakness; F17.200 Nicotine dependence, unspecified, uncomplicated
CPT/HCPCS: 36415; 93005; 80053; 83605; 83735; 84484; 85025; 85610; 85730; 81001; 71046; 99285; 96374; 96375; J0696; J3490

== ENCOUNTER 2023-12-17 08:33 | Day surgery (SDC) | payer MEDICARE, OTHER ==
[2023-12-17] MEDS: LACTATED RINGERS 1,000 ML IV SCH (09:54)
[2023-12-17 10:17] VITALS: TEMP 97.8
[2023-12-17] MEDS ORDERED: LIDOCAINE 1% INJ 10MG/ML (20 ML MDV) ONE (10:28)
[2023-12-17] MEDS ORDERED: PROPOFOL 10 MG/ML 20 ML VIAL IV ONE (10:28)
--- NOTE | 2023-12-17 10:54 | P.PCN ---
Date of Procedure: 12/17/23 Procedure(s) Performed: Brief history: Patient is a pleasant 64-year-old white female scheduled for an elective upper endoscopy as well as colonoscopy as a part of evaluation of abdominal pain, intermittent dysphagia to solids and chronic diarrhea for the last 6 months duration Procedure performed: Esophagogastroduodenoscopy with biopsy Colonoscopy with random biopsies Preoperative diagnosis: GERD/intermittent dysphagia to solids Abdominal pain and chronic diarrhea Anesthesia: [facility] Procedure: After informed consent was obtained from the patient was brought into the endoscopy unit and IV sedation was administered by anesthesia under continuous monitoring. Initially upper endoscopy was done. The Olympus GF 160 video endoscope was inserted inserted into the mouth and esophagus intubated without any difficulty and was gradually advanced into the stomach and duodenum and carefully examined. The bulb and second part of the duodenum appeared normal. Biopsies were done from the duodenum to evaluate for celiac disease. The scope was then withdrawn into the stomach adequately insufflated with air and upon careful examination the antrum had mild gastritis and biopsies were done from this area. Mucosa of the body, cardia and fundus appeared normal. The scope was then withdrawn into the esophagus. The GE junction was located at 40 cm to the incisors. It appeared regular with no erythema erosions or ulcerations. Rest of the esophagus appeared normal. Biopsies were done from the distal esophagus. Patient tolerated the procedure well. At this time the patient continued to remain sedation. Initial digital rectal examination was normal. Olympus CF 160 video colonoscope was then inserted into the rectum and gradually advanced to the cecum without any difficulty. Careful examination was performed as the scope was gradually being withdrawn. The prep was poor in several liters of the colon. The cecum, ascending colon, had large amount of stool precluding adequate visualization of this area. Mucosa of the transverse colon, descending colon, sigmoid colon and rectum appeared normal. Retroflexion was performed in the rectum and no lesions were noted. Random biopsies were done from the ascending and descending colon to rule out microscopic/collagenous colitis. Patient tolerated the procedure well. Impression: 1. Upper endoscopy revealed mild gastritis but no evidence of esophagitis or esophageal stricture 2. Colonoscopy was within normal limits with no evidence of colitis or colorectal neoplasia except for poor prep in several areas of the colon Recommendations: Findings of this examination were discussed with the patient as well as her family. She was advised to follow-up with the biopsy results. Follow-up in the office in 2 weeks. Recommend repeat screening colonoscopy in 5 years because of poor prep.
[2023-12-17 12:10] VITALS: RESP 16
[2023-12-17 12:34] LABS: Glucose,Whole Blood 168 mg/dL (70-110)
[2023-12-17 13:04] VITALS: BP 132/76; PULSE 69
[2023-12-17 13:16] LABS: Glucose,Whole Blood 93 mg/dL (70-110)
== END 2023-12-17 12:45 ==
LOC: ORWHC2ENDO 08:33
PROVIDERS: ATTEND Internal Medicine Gastroenterology
DX: K29.50 Unspecified chronic gastritis without bleeding (principal); K21.9 Gastro-esophageal reflux disease without esophagitis; K52.9 Noninfective gastroenteritis and colitis, unspecified; I25.10 Atherosclerotic heart disease of native coronary artery without angina pectoris; I10 Essential (primary) hypertension; E78.5 Hyperlipidemia, unspecified; E11.42 Type 2 diabetes mellitus with diabetic polyneuropathy; K76.0 Fatty (change of) liver, not elsewhere classified; F41.9 Anxiety disorder, unspecified; F32.A Depression, unspecified; Z86.73 Personal history of transient ischemic attack (TIA), and cerebral infarction without residual deficits; Z79.01 Long term (current) use of anticoagulants; Z79.02 Long term (current) use of antithrombotics/antiplatelets; Z79.899 Other long term (current) drug therapy
CPT/HCPCS: 88305; 45380; 43239; J2001; J2704

== ENCOUNTER 2024-01-25 18:05 | Emergency (ER) | payer MEDICARE, OTHER ==
[2024-01-25 18:12] VITALS: TEMP 98.9
--- NOTE | 2024-01-25 18:50 | ED ---
General Adult HPI - General Chief complaint: GI Bleed Stated complaint: GI Bleed Time Seen by Provider: 01/25/24 18:09 Source: patient, EMS Mode of arrival: EMS - History of Present Illness Initial comments: Dictation was produced using [employer] dictation software. please excuse any g rammatical, word or spelling errors. Chief Complaint: 63-year-old female with multiple comorbidities presents to the ER for abdominal pain, nausea and coffee-ground emesis History of Present Illness: Patient 63-year-old female she is brought in by EMS. History present illness obtained from patient and son. Patient for the last week has had vomiting and bloody stool. States that over the last 2 to 3 days her emesis appeared to be coffee-ground. Son states it looks darker than coffee grounds. Patient feels a little lightheaded. Denies any fevers. Anticoagulation medications. Complaining of diffuse abdominal pain. The ROS documented in this emergency department record has been reviewed and confirmed by me. Those systems with pertinent positive or negative responses have been documented in the HPI. All other systems are other negative and/or noncontributory. - Related Data Home Medications Medication Instructions Recorded Confirmed Ergocalciferol (Vitamin D2) 1,250 mcg PO GUERRERO@0800 04/01/23 12/17/23 [Drisdol (50,000 Iu)] Nitroglycerin Sl Tabs [Nitrostat] 0.4 mg SL Q5M PRN 04/01/23 12/17/23 Apixaban [Eliquis] 5 mg PO BID 05/20/23 12/17/23 Clopidogrel [Plavix] 75 mg PO DAILY 05/20/23 12/17/23 DULoxetine HCL [Cymbalta] 60 mg PO BID 07/04/23 12/17/23 INSULIN ASPART (NovoLOG) [NovoLOG See Protocol SQ ACHS 07/04/23 12/17/23 (formulary)] Magnesium Hydroxide [Milk of 7,200 mg PO Q48H PRN 07/04/23 12/17/23 Magnesia Concentrate] Metoprolol Tartrate [Lopressor] 25 mg PO BID@0800,1700 07/04/23 12/17/23 Midodrine [ProAmatine] 5 mg PO BID@0800,1700 07/04/23 12/17/23 Na Phos,M-B/Na Phos,Di-Ba [Fleet 133 ml RECTAL DAILY PRN 07/04/23 12/17/23 Adult] bisacodyL [Dulcolax] 10 mg RECTAL DAILY PRN 07/04/23 12/10/23 Benzocaine/Menthol Lozeng [Cepacol 1 lozenge MUCOUS MEM Q4HR PRN 08/09/23 0 12/17/23 lozenge] Loperamide [Imodium] 2 mg PO QID PRN 08/09/23 12/17/23 Magnesium Oxide [Mag-Ox] 400 mg PO DAILY@0800 08/09/23 12/17/23 Melatonin 3 mg PO HS@209908/09/23 12/17/23 Ondansetron [Zofran] 4 mg PO Q8H PRN 08/09/23 12/17/23 Potassium Chloride [Klor-Con M20] 20 meq PO DAILY@0800 08/09/23 12/17/23 Spironolactone 25 mg PO DAILY@0800 08/09/23 12/17/23 polyethylene glycoL 3350 [Miralax] 17 gm PO DAILY PRN 08/09/23 12/10/23 Atorvastatin Calcium [Lipitor] 80 mg PO DAILY 09/16/23 12/17/23 Baclofen 5 mg PO Q8H PRN 09/16/23 12/17/23 Famotidine [Pepcid] 20 mg PO DAILY@0800 09/16/23 12/17/23 Bacitracin Zinc Oint 1 applic TOPICAL DAILY 10/22/23 12/17/23 Ferrous Sulfate [Feosol] 325 mg PO DAILY@0800 10/22/23 12/17/23 Gabapentin [Neurontin] 400 mg PO BID@0800,1700 10/22/23 12/17/23 HYDROcodone/APAP 7.5-325MG [Coeymans 1 tab PO TID@0600,1400,2100 10/22/23 12/17/23 7.5-325] INSULIN ASPART (NovoLOG) [NovoLOG 4 unit SQ TID@0800,1200,1700 10/22/23 12/17/23 (formulary)] Ipratropium-Albuterol Nebulize 3 ml INHALATION RT-Q6H PRN 10/22/23 12/17/23 [Duoneb 0.5 mg-3 mg/3 ml Soln] Orajel 3x Gel 1 applic DENTAL TID PRN 10/22/23 12/17/23 (Benzocaine/Menthol-Zinc Chloride 20-0.26-0.15%) Phenyleph/Pramoxin/Glycr/W.pet 1 applic RECTAL TID PRN 10/22/23 12/17/23 [Preparation H Cream] Chlorhexidine Gluconate [Peridex] 15 ml PO BID@0800,2100 11/26/23 12/17/23 Insulin Detemir (Levemir) [Levemir] 22 unit SQ HS@209911/26/23 12/17/23 ALPRAZolam [Xanax] 0.25 mg PO DIRECTED PRN 12/10/23 12/17/23 Pancralipase 1 cap PO TID 12/10/23 12/17/23 Unk Sennoside Oral Tab 1 tab PO BID PRN 12/10/23 12/10/23 bisacodyL [Dulcolax] 10 mg PO ONCE 12/10/23 12/10/23 Previous Rx's Medication Instructions Recorded Benzonatate [Tessalon Perles] 200 mg PO TID PRN #21 cap 10/25/23 Allergies Allergy/AdvReac Type Severity Reaction Status Date / Time vancomycin Allergy Rash/Hives/and Verified 12/10/23 12:21 vomiting diarrhea/Swelling Review of Systems ROS Statement: Those systems with pertinent positive or pertinent negative responses have been documented in the HPI. ROS Other: All systems not noted in ROS Statement are negative. Past Medical History Past Medical History: Coronary Artery Disease (CAD), Cancer, CVA/TIA, Diabetes Mellitus, Deep Vein Thrombosis (DVT), GERD/Reflux, Memory Impairment, Osteoarthritis (OA), Pulmonary Embolus (PE), Vascular Disorder Additional Past Medical History / Comment(s): Recent hospitalization Aug 2023- Diarrhea, cellulitis rt AKA (AKA 06-07-23)site and PICC line placement (Power PICC SOLO2 catheter site lt arm may be removed this week),SKIN CA to neck. 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 pt has bumped areas to bilateral arms with patches applied, nothing open, Pt states she's "forgetful", per Dr. Azar H+P pt c/o dysphonia pt confirms. chronic diarrhea. hx of low BP issues Last Myocardial Infarction Date:: 2010 History of Any Multi-Drug Resistant Organisms: MRSA Date of last positivie culture/infection: 08/09/23 MDRO Source:: Right Leg Past Surgical History: Section, Cholecystectomy, Heart Catheterization, Heart Catheterization With Stent, Orthopedic Surgery, Tonsillectomy, Tubal Ligation Additional Past Surgical History / Comment(s): Right Below Knee Amputation 04/2023, 11 Stents in left leg, fistula left thigh, full mouth teeth extraction, TRAPEASE VENA CAVA FILTER,rt carpel tunnel , heart stents x4 rca and lad, tumor removal from uterus. Genital warts removed, INGRID. Skin cancer removed from neck, rt great toe amputated, colonoscopy, rt rotator, left shoulder replacement, cervial fusion, rt calf debridement, rt calf skin graft (May 2023) Past Anesthesia/Blood Transfusion Reactions: No Reported Reaction Additional Past Anesthesia/Blood Transfusion Reaction / Comment(s): no blood tranfusions Date of Last Stent Placement:: Mar 2023 Past Psychological History: Anxiety, Depression Smoking Status: Former smoker Past Alcohol Use History: None Reported Past Drug Use History: None Reported - Past Family History Mother Family Medical History: Cancer, Congestive Heart Failure (CHF), Diabetes Mellitus, Myocardial Infarction (AL) Additional Family Medical History / Comment(s): UTERINE CANCER Father Family Medical History: Coronary Artery Disease (CAD), Myocardial Infarction (AL) Additional Family Medical History / Comment(s): Father at age 70. Sister(s) Family Medical History: Myocardial Infarction (AL) Additional Family Medical History / Comment(s): Patient has one sister with myocardial infarction at age 55. Son(s) Family Medical History: Deep Vein Thrombosis (DVT), Pulmonary Embolus Additional Family Medical History / Comment(s): Patient has 2 sons and one has history of DVT and pulmonary embolism. General Exam - General Exam Comments Initial Comments: PHYSICAL EXAM: General Impression: Alert and oriented x3, not in acute distress HEENT: Normocephalic atraumatic, extra-ocular movements intact, pupils equal and reactive to light bilaterally, mucous membranes moist. Cardiovascular: Heart regular rate and rhythm Chest: Able to complete full sentences, no retractions, no tachypnea Abdomen: abdomen soft, non-tender, non-distended, no organomegaly Musculoskeletal: Pulses present and equal in all extremities, no peripheral edema Motor: no focal deficits noted Neurological: CN II-XII grossly intact, no focal motor or sensory deficits noted Skin: Intact with no visualized rashes Psych: Normal affect and mood Rectal: Dark stool Course Vital Signs 01/25/24 01/25/24 01/25/24 18:07 19:30 20:04 Temperature 98.9 F Pulse Rate 80 75 75 Respiratory 20 18 20 Rate Blood Pressure 103/59 102/52 104/53 O2 Sat by Pulse 95 93 L 97 Oximetry EKG Findings - EKG Comments: EKG Findings:: My EKG interpretation: Ventricular rate 79, sinus rhythm,. 167, cures 93, QTc 432. No IN prolongation, no QTC prolongation, no ST or T-wave changes noted. EKG compared to November 29, 2023 showing no changes. Overall, this EKG is unremarkable Medical Decision Making - Medical Decision Making Was pt. sent in by a medical professional or institution (BRENNEN Cummings, [employer], urgent care, hospital, or [facility]...) When possible be specific @ -No Did you speak to anyone other than the patient for history (EMS, parent, family, police, friend...)? What history was obtained from this source @ -Some history obtained from son as described above Did you review nursing and triage notes (agree or disagree)? Why? @ -I reviewed and agree with nursing and triage notes Were old charts reviewed (outside hosp., previous admission, EMS record, old EKG, old radiological studies, urgent care reports/EKG's, [facility] records)? Report findings @ -No old charts were reviewed Differential Diagnosis (chest pain, altered mental status, abdominal pain women, abdominal pain men, vaginal bleeding, musculoskeletal, weakness, fever, dyspnea, syncope, headache, dizziness, GI bleed, back pain, seizure, CVA, palpatations, mental health)? @ -Differential GI Bleed: Esophageal varices, aortoenteric fistula, Kate-Shelley, gastritis, peptic ulcer disease, diverticulosis, inflammatory bowel disease, hemorrhoids, fissure, colitis, malignancy, Meckels diverticulum, this is not meant to be an all- inclusive list. EKG interpreted by me (3pts min.). @ -Above X-rays interpreted by me (1pt min.). @ -None done CT interpreted by me (1pt min.). @ -CT of of the abdomen pelvis shows no acute processes. U/S interpreted by me (1pt. min.). @ -None done What testing was considered but not performed or refused? (CT, X-rays, U/S, lab s)? Why? @ -None What meds were considered but not given or refused? Why? @ -None Was smoking cessation discussed for >3mins.? @ -No Were there social determinants of health that impacted care today? How? (Homelessness, low income, unemployed, alcoholism, drug addiction, transportation, low edu. Level, literacy, decrease access to med. care, retirement, rehab)? @ -No Was there de-escalation of care discussed even if they declined (Discuss DNR or withdrawal of care, Hospice)? DNR status @ -No What co-morbidities impacted this encounter? (DM, HTN, Smoking, COPD, CAD, Cancer, CVA, ARF, Chemo, Hep., AIDS, mental health diagnosis, sleep apnea, morbid obesity)? @ -None Was patient admitted / discharged? Hospital course, mention meds given and route, prescriptions, significant lab abnormalities, going to OR and other pertinent info. @ -63-year-old female presents to the emergency department for chief complaint of coffee-ground emesis. Vital signs upon arrival are within acceptable limits. Patient did complain of abdominal pain. He anticoagulation medication. Hemoglobin is 8.3 which is significantly decreased from 13.6 from January 12, 2024. Patient's hemoglobin is usually around 10 or 11 however. Rest of labs within acceptable limits. Stool occult blood is positive. Patient given Protonix. She does not have any history of liver cirrhosis. We do not have GI coverage at our facility patient would be transferred Did you discuss the management of the patient with other professionals (professionals i.e. , PA, [employer] SUPERVISOR, lab, RT, psych nurse, social welfare administrator, ell teacher, teacher, national service officer, case finisher)? Give summary @ -Discussed with Dr. Diego at [facility] for GI who is willing to accept patient's care for transfer Was critical care preformed (if so, how long)? @ -No Undiagnosed new problem with uncertain prognosis? @ -No Drug Therapy requiring intensive monitoring for toxicity (Heparin, Nitro, Insulin, Cardizem)? @ -No Were any procedures done? @ -No Diagnosis/symptom? Acute, or Chronic, or Acute on Chronic? Uncomplicated (without systemic symptoms) or Complicated (systemic symptoms)? @ -GI bleed Side effects of treatment? @ -No Exacerbation, Progression, or Severe Exacerbation? @ -No Poses a threat to life or bodily function? How? (Chest pain, USA, AL, pneumonia, PE, COPD, DKA, ARF, appy, cholecystitis, CVA, Diverticulitis, Homicidal, Suicidal, threat to staff... and all critical care pts) @ -yes - Lab Data Result diagrams: 01/25/24 18:20 01/25/24 18:20 Lab Results 01/25/24 01/25/24 01/25/24 Range/Units 18:15 18:20 18:20 WBC 14.4 H (3.8-10.6) k/uL RBC 2.78 L (3.80-5.40) m/uL Hgb 8.3 L D (11.4-16.0) gm/dL Hct 25.9 L (34.0-46.0) % MCV 93.4 (80.0-100.0) fL MCH 29.7 (25.0-35.0) pg MCHC 31.8 (31.0-37.0) g/dL RDW 20.3 H (11.5-15.5) % Plt Count 328 (150-450) k/uL MPV 9.0 Neutrophils % 76 % Lymphocytes % 16 % Monocytes % 6 % Eosinophils % 0 % Basophils % 0 % Neutrophils # 10.9 H (1.3-7.7) k/uL Lymphocytes # 2.3 (1.0-4.8) k/uL Monocytes # 0.8 (0-1.0) k/uL Eosinophils # 0.1 (0-0.7) k/uL Basophils # 0.1 (0-0.2) k/uL Manual Slide Review Performed Polychromasia Present Hypochromasia Moderate Poikilocytosis Slight Anisocytosis Moderate Macrocytosis Slight PT (10.0-12.5) sec INR (<1.2) APTT (22.0-30.0) sec Sodium 128 L (137-145) mmol/L Potassium 5.1 (3.5-5.1) mmol/L Chloride 92 L (98-107) mmol/L Carbon Dioxide 24 (22-30) mmol/L Anion Gap 12 mmol/L BUN 37 H (7-17) mg/dL Creatinine 1.46 H (0.52-1.04) mg/dL Est GFR (CKD-EPI)AfAm 44 (>60 ml/min/1.73 sqM) Est GFR (CKD-EPI)NonAf 38 (>60 ml/min/1.73 sqM) Glucose 226 H (74-99) mg/dL Calcium 9.2 (8.4-10.2) mg/dL Total Bilirubin 1.5 H (0.2-1.3) mg/dL AST 56 H (14-36) U/L ALT 27 (4-34) U/L Alkaline Phosphatase 102 (38-126) U/L Total Protein 5.9 L (6.3-8.2) g/dL Albumin 3.1 L (3.5-5.0) g/dL Stool Occult Blood (Negative) Blood Type A Negative Blood Type Recheck A Neg Bld Type Recheck Status No Antibody Screen NEGATIVE Spec Expiration Date 01/28/2024231401/25/24 01/25/24 Range/Units 18:20 18:20 WBC (3.8-10.6) k/uL RBC (3.80-5.40) m/uL Hgb (11.4-16.0) gm/dL Hct (34.0-46.0) % MCV (80.0-100.0) fL MCH (25.0-35.0) pg MCHC (31.0-37.0) g/dL RDW (11.5-15.5) % Plt Count (150-450) k/uL MPV Neutrophils % % Lymphocytes % % Monocytes % % Eosinophils % % Basophils % % Neutrophils # (1.3-7.7) k/uL Lymphocytes # (1.0-4.8) k/uL Monocytes # (0-1.0) k/uL Eosinophils # (0-0.7) k/uL Basophils # (0-0.2) k/uL Manual Slide Review Polychromasia Hypochromasia Poikilocytosis Anisocytosis Macrocytosis PT 12.6 H (10.0-12.5) sec INR 1.2 H (<1.2) APTT 22.5 (22.0-30.0) sec Sodium (137-145) mmol/L Potassium (3.5-5.1) mmol/L Chloride (98-107) mmol/L Carbon Dioxide (22-30) mmol/L Anion Gap mmol/L BUN (7-17) mg/dL Creatinine (0.52-1.04) mg/dL Est GFR (CKD-EPI)AfAm (>60 ml/min/1.73 sqM) Est GFR (CKD-EPI)NonAf (>60 ml/min/1.73 sqM) Glucose (74-99) mg/dL Calcium (8.4-10.2) mg/dL Total Bilirubin (0.2-1.3) mg/dL AST (14-36) U/L ALT (4-34) U/L Alkaline Phosphatase (38-126) U/L Total Protein (6.3-8.2) g/dL Albumin (3.5-5.0) g/dL Stool Occult Blood Positive H (Negative) Blood Type Blood Type Recheck Bld Type Recheck Status Antibody Screen Spec Expiration Date Disposition Clinical Impression: GI bleed Disposition: OTHER INSTITUTION NOT DEFINED Condition: Serious Referrals: Tramaine Tejeda MD [Primary Care Provider] - 1-2 days - Out of Hospital Transfer - Req. Specs Out of Hospital Transfer - Requested Specifics: Other Emergency Center ([facility]
[2024-01-25 19:15] LABS: INR 1.2 (<1.2); Partial Thromboplastin Time 22.5 sec (22.0-30.0); Prothrombin Time 12.6 sec (10.0-12.5)
[2024-01-25 19:19] LABS: ALT 27 U/L (4-34); AST 56 U/L (14-36); African American GFR (CKD) 44 (>60 ml/min/1.73 sqM); Albumin 3.1 g/dL (3.5-5.0); Alkaline Phosphatase 102 U/L (38-126); Anion Gap 12 mmol/L; Blood Urea Nitrogen 37 mg/dL (7-17); Calcium 9.2 mg/dL (8.4-10.2); Carbon Dioxide 24 mmol/L (22-30); Chloride 92 mmol/L (98-107); Glucose 226 mg/dL (74-99); Non-African American GFR(CKD) 38 (>60 ml/min/1.73 sqM); Potassium 5.1 mmol/L (3.5-5.1); Sodium 128 mmol/L (137-145); Total Bilirubin 1.5 mg/dL (0.2-1.3); Total Protein 5.9 g/dL (6.3-8.2)
[2024-01-25 19:21] LABS: Anisocytosis Moderate; Basophils # (A) 0.1 k/uL (0-0.2); Basophils % (A) 0 %; Eosinophils # (A) 0.1 k/uL (0-0.7); Eosinophils % (A) 0 %; HCT 25.9 % (34.0-46.0); Hypochromasia Moderate; Lymphocytes # (A) 2.3 k/uL (1.0-4.8); Lymphocytes % (A) 16 %; MCH 29.7 pg (25.0-35.0); MCHC 31.8 g/dL (31.0-37.0); MCV 93.4 fL (80.0-100.0); Macrocytosis Slight; Monocytes # (A) 0.8 k/uL (0-1.0); Monocytes % (A) 6 %; Neutrophils # (A) 10.9 k/uL (1.3-7.7); Neutrophils % (A) 76 %; Platelet Count 328 k/uL (150-450); Poikilocytosis Slight; RBC 2.78 m/uL (3.80-5.40); RDW 20.3 % (11.5-15.5); WBC 14.4 k/uL (3.8-10.6)
[2024-01-25 19:22] LABS: HGB 8.3 gm/dL (11.4-16.0)
[2024-01-25 19:38] LABS: Polychromasia Present
--- NOTE | 2024-01-25 20:06 | CT ---
EXAMINATION TYPE: CT abdomen pelvis w con DATE OF EXAM: 01/25/2024 COMPARISON: 11/26/2023 HISTORY: Abdominal pain, blood in stool. CT DLP: 961.6 mGycm CONTRAST: CT scan of the abdomen and pelvis is performed without Oral Contrast and with IV Contrast, patient in jected with 70 ml mL of Isovue 300. FINDINGS: LUNG BASES-: No visible nodule. No infiltrate. LIVER/GB: The gallbladder is surgically absent. Hepatic steatosis. No space occupying hepatic lesion. Biliary tree is of normal caliber. PANCREAS: No inflammation. No distinct mass. SPLEEN: No splenic enlargement. No lesion seen. ADRENALS: No nodule. No thickening. KIDNEYS/BLADDER: No hydronephrosis. No nephrolithiasis. No distinct renal mass. Urinary bladder g rossly unremarkable. BOWEL: Normal appendix. Normal bowel caliber. No inflammation. GENITAL ORGANS: No gross abnormality. LYMPH NODES: No greater than 1cm abdominal or pelvic lymph nodes are appreciated. AORTA: No significant abnormality. OSSEOUS STRUCTURES: No significant abnormality is seen. OTHER: IVC filter. Left common iliac and left external iliac venous stents. Chronic fracture T11. IMPRESSION: 1. No significant abnormality to account for the patient's symptoms. 2. Hepatic steatosis.
[2024-01-25] MEDS: PANTOPRAZOLE 40 MG/10 ML VIAL IVP STA (20:22)
[2024-01-25] MEDS: MORPHINE SULFATE 4 MG/ML SYRINGE IV STA (20:24)
[2024-01-25 23:33] VITALS: BP 101/55; PULSE 77; RESP 18
== END 2024-01-25 23:23 | disposition other institution (70) ==
LOC: EC 18:05
DX: K92.2 Gastrointestinal hemorrhage, unspecified (principal); Z87.891 Personal history of nicotine dependence; Z88.8 Allergy status to other drugs, medicaments and biological substances; Z86.73 Personal history of transient ischemic attack (TIA), and cerebral infarction without residual deficits; Z90.49 Acquired absence of other specified parts of digestive tract; Z95.5 Presence of coronary angioplasty implant and graft
CPT/HCPCS: 36415; 93005; 86900; 86901; 80053; 85025; 85610; 85730; 86850; 82272; 74177; 99285; 96374; 96375; J2270; C9113; Q9967

== ENCOUNTER → 2024-04-22 | Outpatient (CLI) | payer MEDICARE, OTHER ==
[2024-04-22 10:51] LABS: African American GFR (CKD) 77 (>60 ml/min/1.73 sqM); Blood Urea Nitrogen 23 mg/dL (7-17); Non-African American GFR(CKD) 67 (>60 ml/min/1.73 sqM)
--- NOTE | 2024-04-22 13:47 | CT ---
EXAMINATION TYPE: CT angio abd aorta w/Runoff CT DLP: 2682 mGycm, Automated exposure control for dose reduction was used. DATE OF EXAM: 04/22/2024 12:25 PM COMPARISON: CT abdomen and pelvis 01/25/2024, ultrasound arterial lower extremity 04/03/2023. 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 Patient was given Isovue 370, 100 cc intravenousl y. Maximum intensity projection images were obtained of the abdomen, pelvis, and lower extremities. FINDINGS: CTA Abdomen and pelvis: The abdominal aorta does not demonstrate aneurysmal dilatation. Atherosclero tic plaquing is identified within the abdominal aorta. The origins of the superior mesenteric artery , renal arteries, inferior mesenteric artery, and celiac axis are patent. Mild stenosis of the origin of the celiac access and SMA secondary to calcified plaque. Moderate stenosis at the origin of the r ight renal artery secondary to calcified plaque. No significant stenosis of the origin of the left re nal artery. The iliac vessels are normal in morphology. Atherosclerotic plaquing with some mural th rombus formation is identified in the common iliac arteries. CTA Lower extremities: Right: Postsurgical changes from above the knee amputation. The common femoral is patent. Short segme nt high stenosis of the superficial femoral artery just after its origin. There is distal occlusion w ith distal reconstitution. The deep femoral artery is patent. Left: Small caliber left external iliac artery with mild to moderate atherosclerotic plaque proximall y. The common femoral demonstrates occlusion distally with reconstitution at the bifurcation. The steve p femoral and superficial femoral arteries are patent. The popliteal artery is patent. Anterior and p osterior tibial arteries as well as the peroneal artery are patent. Anterior and posterior tibial art eries cross the ankle. VISCERA: The liver, spleen, adrenal glands, kidneys, pancreas, and gallbladder are not optimally enha nced due the arterial phase utilized. LIVER: Unremarkable GALLBLADDER AND BILE DUCTS: The gallbladder is surgically absent. No biliary duct dilatation. PANCREAS: Unremarkable. SPLEEN: Unremarkable. ADRENAL GLANDS: Right adrenal gland 1.8 cm nodule with a Hounsfield unit of 7 consistent with a lipid rich adenoma. Left adrenal gland is unremarkable. KIDNEYS AND URETERS: No evidence of hydronephrosis or renal calculus. The kidneys enhance symmetrical ly. Bilateral small subcentimeter cysts. PELVIS BLADDER: Unremarkable REPRODUCTIVE: Unremarkable. ABDOMEN & PELVIS STOMACH AND BOWEL: Stomach and duodenum are unremarkable. No focal bowel wall thickening or surroundi ng inflammatory changes. The appendix is within normal limits. No evidence of bowel obstruction. PERITONEUM: No evidence of pneumoperitoneum or free fluid. VASCULATURE: There are 2 IVC filters identified. One is at the level of the inferior liver and the ot her at the level of the iliac bifurcation. Distal IVC stent which extends into the bilateral iliac ve ins. The left iliac vein stent extends from the bifurcation into the left upper thigh. There are few calcifications identified within the proximal left iliac venous stent. The visualized proximal IVC an d right iliac vein are patent with collateral venous vasculature identified. There is occlusion ident ified at the origin of the left iliac venous stent at site of dystrophic calcifications without contr ast identified within the stent. Collateral vessel is identified just proximal to the stent origin. MUSCULOSKELETAL: No acute osseous abnormalities. Chronic anterior wedge compression deformity of the T11 vertebral body with approximately 50% height loss anteriorly. No retropulsion. Mild multilevel de generative disc disease. LYMPH NODES: No gross evidence for lymphadenopathy. SOFT TISSUE/ABDOMINAL WALL: Collateral venous vessels identified within the lower anterior pelvic wal l. Postsurgical changes within the bilateral inguinal regions. Left distal lower extremity dermal genia cifications. IMPRESSION 1. Atherosclerotic disease involving abdominal aorta and lower extremity vasculature. Postsurgical c hanges from right [id number] amputation. At least two vessels are seen crossing the left ankle jennifer int. 2. Left common femoral artery occlusion distally with reconstitution at the bifurcation. 3. Distal occlusion of the right superficial femoral artery with distal reconstitution. Short segmen t high-grade stenosis of the right superficial femoral artery just after the origin. 4. IVC filters with bilateral iliac venous stents. There is occlusion of the left iliac venous stent with calcifications within the proximal portion. Collateral venous vessels identified within the ant erior lower pelvic wall which communicate with the right iliac vein from the left iliac vein for the origin of the stent. [facility], , 04/22/2024 1:45 PM
== END | disposition home or self-care (01) ==
LOC: RADCTMAIN 09:58
PROVIDERS: ATTEND Surgery
DX: I70.213 Atherosclerosis of native arteries of extremities with intermittent claudication, bilateral legs (principal); I70.0 Atherosclerosis of aorta; Z89.611 Acquired absence of right leg above knee
CPT/HCPCS: 82565; 84520; 75635; 36415; Q9967

== ENCOUNTER 2024-07-08 12:28 | Emergency (ER) | payer MEDICARE, OTHER ==
--- NOTE | 2024-07-08 13:40 | ED ---
General Adult HPI - General Chief complaint: Skin/Abscess/Foreign Body Stated complaint: rash on genitals Time Seen by Provider: 07/08/24 13:05 Source: patient, RN notes reviewed Mode of arrival: wheelchair Limitations: no limitations - History of Present Illness Initial comments: 64-year-old female presents to the emergency department for evaluation of "boil "to her groin. Patient reports that she noticed this about 4 days ago. She states that yesterday it started draining. She notes that the swelling and pain has gotten worse today. She also notes feeling chills, nausea, vomiting. She does report a history of diabetes which she reports is uncontrolled. - Related Data Home Medications Medication Instructions Recorded Confirmed Ergocalciferol (Vitamin D2) 1,250 mcg PO GUERRERO@0800 04/01/23 07/08/24 [Drisdol (50,000 Iu)] Nitroglycerin Sl Tabs [Nitrostat] 0.4 mg SL Q5M PRN 04/01/23 07/08/24 Apixaban [Eliquis] 5 mg PO BID 05/20/23 07/08/24 Clopidogrel [Plavix] 75 mg PO DAILY 05/20/23 07/08/24 DULoxetine HCL [Cymbalta] 60 mg PO DAILY 07/04/23 07/08/24 INSULIN ASPART (NovoLOG) [NovoLOG See Protocol SQ ACHS 07/04/23 07/08/24 (formulary)] Metoprolol Tartrate [Lopressor] 25 mg PO BID@0800,1700 07/04/23 07/08/24 Midodrine [ProAmatine] 5 mg PO BID@0800,1700 07/04/23 07/08/24 Magnesium Oxide [Mag-Ox] 400 mg PO DAILY 08/09/23 07/08/24 Melatonin 3 mg PO HS@2100 08/09/23 07/08/24 Potassium Chloride [Klor-Con M20] 20 meq PO DAILY 08/09/23 07/08/24 Spironolactone 25 mg PO DAILY 08/09/23 07/08/24 Atorvastatin Calcium [Lipitor] 80 mg PO DAILY 09/16/23 07/08/24 Famotidine [Pepcid] 20 mg PO DAILY 09/16/23 07/08/24 Ferrous Sulfate [Feosol] 325 mg PO DAILY 10/22/23 07/08/24 Gabapentin [Neurontin] 400 mg PO TID 10/22/23 07/08/24 HYDROcodone/APAP 7.5-325MG [Dexter 1 tab PO TID 10/22/23 07/08/24 7.5-325] INSULIN ASPART (NovoLOG) [NovoLOG 10 unit SQ TID@0800,1200,1700 10/22/23 07/08/24 (formulary)] Ipratropium-Albuterol Nebulize 3 ml INHALATION RT-Q6H PRN 10/22/23 07/08/24 [Duoneb 0.5 mg-3 mg/3 ml Soln] Dapagliflozin Propanediol [Farxiga] 10 mg PO DAILY 02/27/24 07/08/24 Insulin Glargine,Hum.rec.anlog 42 units SQ HS 02/27/24 07/08/24 [Lantus Solostar Pen] Pantoprazole [Protonix] 40 mg PO BID 02/27/24 07/08/24 Aspirin EC [Ecotrin Low Dose] 81 mg PO DAILY 07/08/24 07/08/24 Allergies Allergy/AdvReac Type Severity Reaction Status Date / Time vancomycin Allergy Rash/Hives/and Verified 07/08/24 16:06 vomiting diarrhea/Swelling Review of Systems ROS Statement: Those systems with pertinent positive or pertinent negative responses have been documented in the HPI. ROS Other: All systems not noted in ROS Statement are negative. Past Medical History Past Medical History: Coronary Artery Disease (CAD), Cancer, CVA/TIA, Diabetes Mellitus, Deep Vein Thrombosis (DVT), GERD/Reflux, Memory Impairment, Osteoarthritis (OA), Pulmonary Embolus (PE), Vascular Disorder Additional Past Medical History / Comment(s): Recent hospitalization Aug 2023- Diarrhea, cellulitis rt AKA (AKA 06-07-23)site and PICC line placement (Power PICC SOLO2 catheter site lt arm may be removed this week),SKIN CA to neck. 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 pt has bumped areas to bilateral arms with patches applied, nothing open, Pt states she's "forgetful", per Dr. Azar H+P pt c/o dysphonia pt confirms. chronic diarrhea. hx of low BP issues Last Myocardial Infarction Date:: 2010 History of Any Multi-Drug Resistant Organisms: MRSA Date of last positivie culture/infection: 08/09/23 MDRO Source:: Right Leg Past Surgical History: Section, Cholecystectomy, Heart Catheterization, Heart Catheterization With Stent, Orthopedic Surgery, Tonsillectomy, Tubal Ligation Additional Past Surgical History / Comment(s): Right Below Knee Amputation 04/2023, 11 Stents in left leg, fistula left thigh, full mouth teeth extraction, TRAPEASE VENA CAVA FILTER,rt carpel tunnel , heart stents x4 rca and lad, tumor removal from uterus. Genital warts removed, INGRID. Skin cancer removed from neck, rt great toe amputated, colonoscopy, rt rotator, left shoulder replacement, cervial fusion, rt calf debridement, rt calf skin graft (May 2023) Past Anesthesia/Blood Transfusion Reactions: No Reported Reaction Additional Past Anesthesia/Blood Transfusion Reaction / Comment(s): no blood tranfusions Date of Last Stent Placement:: Mar 2023 Past Psychological History: Anxiety, Depression Smoking Status: Former smoker Past Alcohol Use History: None Reported Past Drug Use History: None Reported - Past Family History Mother Family Medical History: Cancer, Congestive Heart Failure (CHF), Diabetes Mellitus, Myocardial Infarction (RI) Additional Family Medical History / Comment(s): UTERINE CANCER Father Family Medical History: Coronary Artery Disease (CAD), Myocardial Infarction (RI) Additional Family Medical History / Comment(s): Father at age 70. Sister(s) Family Medical History: Myocardial Infarction (RI) Additional Family Medical History / Comment(s): Patient has one sister with myocardial infarction at age 55. Son(s) Family Medical History: Deep Vein Thrombosis (DVT), Pulmonary Embolus Additional Family Medical History / Comment(s): Patient has 2 sons and one has history of DVT and pulmonary embolism. General Exam Limitations: no limitations General appearance: alert, in distress Head exam: Present: atraumatic, normocephalic, normal inspection Eye exam: Present: normal appearance, PERRL, EOMI. Absent: scleral icterus, conjunctival injection, periorbital swelling ENT exam: Present: normal exam, mucous membranes moist Neck exam: Present: normal inspection. Absent: tenderness, meningismus, lymphadenopathy Respiratory exam: Present: normal lung sounds bilaterally. Absent: respiratory distress, wheezes, rales, rhonchi, stridor Cardiovascular Exam: Present: normal rhythm, tachycardia. Absent: systolic murmur, diastolic murmur, rubs, gallop, clicks GI/Abdominal exam: Present: soft. Absent: distended, tenderness, guarding, rebound, rigid External exam: Present: swelling, lesions, ecchymosis, other (Bartholin Abscess present to the right). Absent: normal external exam Neurological exam: Present: alert, oriented X3 Psychiatric exam: Present: normal affect, normal mood Skin exam: Present: warm, dry, erythema. Absent: intact, normal color Course Vital Signs 07/08/24 07/08/24 07/08/24 12:32 16:00 18:00 Temperature 100.9 F H 98.8 F 97.7 F Pulse Rate 107 H 61 55 L Respiratory 22 16 16 Rate Blood Pressure 97/62 113/54 124/61 O2 Sat by Pulse 98 97 98 Oximetry 07/08/24 19:25 Temperature Pulse Rate 57 L Respiratory 18 Rate Blood Pressure 110/58 O2 Sat by Pulse 96 Oximetry Procedures - Sepsis Sepsis Focused Exam #1 Time Sepsis Criteria Met: 13:35 Sepsis Focused Exam Date: 07/08/24 Sepsis Focused Exam Time: 17:00 Sepsis Focused Exam Complete: Yes Vital Signs & RN Notes Reviewed: Yes Capillary Refill: < 2 Seconds: Fingers, Toes Peripheral Pulses: Normal: Radial (L) Skin Color: Normal for Patient Respiratory Exam: normal lung sounds Cardiovascular Exam: regular rate, normal rhythm Medical Decision Making - Medical Decision Making Was pt. sent in by a medical professional or institution (, PA, MIXING AND DISPENSING SUPERVISOR, urgent care, hospital, or fci...) When possible be specific @ -No Did you speak to anyone other than the patient for history (EMS, parent, family, police, friend...)? What history was obtained from this source @ -Patients son provided some of the history of this patient. Did you review nursing and triage notes (agree or disagree)? Why? @ -I reviewed and agree with nursing and triage notes Were old charts reviewed (outside hosp., previous admission, EMS record, old EKG, old radiological studies, urgent care reports/EKG's, fci records)? Report findings @ -No old charts were reviewed Differential Diagnosis (chest pain, altered mental status, abdominal pain women, abdominal pain men, vaginal bleeding, weakness, fever, dyspnea, syncope, headache, dizziness, GI bleed, back pain, seizure, CVA, palpatations, mental health, musculoskeletal)? @ -Findings gangrene, sepsis, rectal abscess, Bartholin abscess, this is not all inclusive EKG interpreted by me (3pts min.). @ -EKG at 1426 shows sinus rhythm rate 77, WI 160, QRS 104, QT/QTc of [id number] X-rays interpreted by me (1pt min.). @ -None done CT interpreted by me (1pt min.). @ -CT pelvis shows Inflammatory change in the right inferior medial thigh extending posteriorly into the perineum. Few tiny focal fluid collections or abscesses present, foci of subcutaneous air seen inferiorly CT with IV contrast shows inflammatory changes in the right inferior medial thigh region extending posteriorly into the perineum tiny focal fluid collections or abscesses present. Foci of subcutaneous air and inferiorly U/S interpreted by me (1pt. min.). @ -None done What testing was considered but not performed or refused? (CT, X-rays, U/S, labs)? Why? @ -None What meds were considered but not given or refused? Why? @ -None Did you discuss the management of the patient with other professionals ( professionals i.e. , PA, MIXING AND DISPENSING SUPERVISOR, lab, RT, psych nurse, aids social worker, clinical writer, teacher, probation and parole officer, window caser)? Give summary @ -Management discussed with Dr. Tejeda requesting transfer of the patient Case discussed with Dr. Still at [facility] who is accepting of the transfer Was smoking cessation discussed for >3mins.? @ -No Was critical care preformed (if so, how long)? @ -No Were there social determinants of health that impacted care today? How? (Homelessness, low income, unemployed, alcoholism, drug addiction, transportation, low edu. Level, literacy, decrease access to med. care, care home, rehab)? @ -No Was there de-escalation of care discussed even if they declined (Discuss DNR or withdrawal of care, Hospice)? DNR status @ -No What co-morbidities impacted this encounter? (DM, HTN, Smoking, COPD, CAD, Cancer, CVA, ARF, Chemo, Hep., AIDS, mental health diagnosis, sleep apnea, morbid obesity)? @ -Uncontrolled DM Was patient admitted / discharged? Hospital course, mention meds given and route, prescriptions, significant lab abnormalities, going to OR and other pertinent info. @ -Transferred. Patient presented to the emergency department for evaluation of "boil "on her groin. Patient was febrile and tachycardic upon arrival she was started on IV fluids and provided with 2 g of Rocephin and 600 mg of clindamycin. Laboratory studies obtained. Labs significant for leukocytosis with a white count of 30. CMP shows a sodium of 127, potassium 5.5, chloride 96. Creatinine is 1.48. Glucose is 299. Patient has significant lactic acidosis with a lactic acid of 5.9. Case was discussed with patient's PCP, Dr. Tejeda who is requesting CT of the pelvis. This was obtained for concerns of Delano's gangrene. CT shows inflammatory changes in the right inferior medial thigh region extending posteriorly into the perineum tiny focal fluid collections or abscesses present. Foci of subcutaneous air and inferiorly. These results. Discussed with Dr. Tejeda requesting transfer of the patient to tertiary care facility. Daptomycin and meropenem was also started on the patient. Case was discussed with Dr. Still at [facility], patient will be transferred to [facility]. She is understanding and agreeable with this. Case discussed with Dr. King. Undiagnosed new problem with uncertain prognosis? @ -Yes Drug Therapy requiring intensive monitoring for toxicity (Heparin, Nitro, Insulin, Cardizem)? @ -No Were any procedures done? @ -I&D Diagnosis/symptom? 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 @ -Acute Uncomplicated (without systemic symptoms) or Complicated (systemic symptoms)? @ -Complicated Side effects of treatment? @ -Possible Exacerbation, Progression, or Severe Exacerbation? @ -No Poses a threat to life or bodily function? How? (Chest pain, USA, RI, pneumonia, PE, COPD, DKA, ARF, appy, cholecystitis, CVA, Diverticulitis, Homicidal, Suicidal, threat to staff... and all critical care pts) @ -Yes - Lab Data Result diagrams: 07/08/24 13:44 07/08/24 13:44 Lab Results 07/08/24 07/08/24 07/08/24 Range/Units 13:44 13:44 13:44 WBC 30.7 H (3.8-10.6) k/uL RBC 5.21 (3.80-5.40) m/uL Hgb 12.2 (11.4-16.0) gm/dL Hct 39.5 (34.0-46.0) % MCV 75.7 L (80.0-100.0) fL MCH 23.4 L (25.0-35.0) pg MCHC 30.9 L (31.0-37.0) g/dL RDW 19.4 H (11.5-15.5) % Plt Count 412 (150-450) k/uL MPV 7.6 Neutrophils % 95 % Lymphocytes % 2 % Monocytes % 2 % Eosinophils % 1 % Basophils % 0 % Neutrophils # 29.0 H (1.3-7.7) k/uL Lymphocytes # 0.6 L (1.0-4.8) k/uL Monocytes # 0.7 (0-1.0) k/uL Eosinophils # 0.2 (0-0.7) k/uL Basophils # 0.1 (0-0.2) k/uL Manual Slide Review Performed Hypochromasia Marked Anisocytosis Slight Microcytosis Moderate Sodium 127 L (137-145) mmol/L Potassium 5.5 H (3.5-5.1) mmol/L Chloride 96 L (98-107) mmol/L Carbon Dioxide 22 (22-30) mmol/L Anion Gap 9 mmol/L BUN 17 (7-17) mg/dL Creatinine 1.48 H (0.52-1.04) mg/dL Est GFR (CKD-EPI)AfAm 43 (>60 ml/min/1.73 sqM) Est GFR (CKD-EPI)NonAf 38 (>60 ml/min/1.73 sqM) Glucose 299 H (74-99) mg/dL Lactic Ac Sepsis Rflx Plasma Lactic Acid Mynor 5.9 H* (0.7-2.0) mmol/L Calcium 8.9 (8.4-10.2) mg/dL Total Bilirubin 1.0 (0.2-1.3) mg/dL AST 21 (14-36) U/L ALT 13 (4-34) U/L Alkaline Phosphatase 223 H (38-126) U/L Total Protein 7.2 (6.3-8.2) g/dL Albumin 3.4 L (3.5-5.0) g/dL 07/08/24 07/08/24 Range/Units 15:13 17:19 WBC (3.8-10.6) k/uL RBC (3.80-5.40) m/uL Hgb (11.4-16.0) gm/dL Hct (34.0-46.0) % MCV (80.0-100.0) fL MCH (25.0-35.0) pg MCHC (31.0-37.0) g/dL RDW (11.5-15.5) % Plt Count (150-450) k/uL MPV Neutrophils % % Lymphocytes % % Monocytes % % Eosinophils % % Basophils % % Neutrophils # (1.3-7.7) k/uL Lymphocytes # (1.0-4.8) k/uL Monocytes # (0-1.0) k/uL Eosinophils # (0-0.7) k/uL Basophils # (0-0.2) k/uL Manual Slide Review Hypochromasia Anisocytosis Microcytosis Sodium (137-145) mmol/L Potassium (3.5-5.1) mmol/L Chloride (98-107) mmol/L Carbon Dioxide (22-30) mmol/L Anion Gap mmol/L BUN (7-17) mg/dL Creatinine (0.52-1.04) mg/dL Est GFR (CKD-EPI)AfAm (>60 ml/min/1.73 sqM) Est GFR (CKD-EPI)NonAf (>60 ml/min/1.73 sqM) Glucose (74-99) mg/dL Lactic Ac Sepsis Rflx Y Plasma Lactic Acid Mynor 2.4 H* (0.7-2.0) mmol/L Calcium (8.4-10.2) mg/dL Total Bilirubin (0.2-1.3) mg/dL AST (14-36) U/L ALT (4-34) U/L Alkaline Phosphatase (38-126) U/L Total Protein (6.3-8.2) g/dL Albumin (3.5-5.0) g/dL Disposition Clinical Impression: Sepsis, 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 Specs Out of Hospital Transfer - Requested Specifics: Other Emergency Center ([place] [facility])
[2024-07-08] MEDS: HYDROmorphone 1 MG/ML 1 ML SYRINGE IVP STA (13:50)
[2024-07-08 13:54] LABS: Anisocytosis Slight; Basophils # (A) 0.1 k/uL (0-0.2); Basophils % (A) 0 %; Eosinophils # (A) 0.2 k/uL (0-0.7); Eosinophils % (A) 1 %; HCT 39.5 % (34.0-46.0); HGB 12.2 gm/dL (11.4-16.0); Hypochromasia Marked; Lymphocytes # (A) 0.6 k/uL (1.0-4.8); Lymphocytes % (A) 2 %; MCH 23.4 pg (25.0-35.0); MCHC 30.9 g/dL (31.0-37.0); MCV 75.7 fL (80.0-100.0); Mean Platelet Volume 7.6; Microcytosis Moderate; Monocytes # (A) 0.7 k/uL (0-1.0); Monocytes % (A) 2 %; Neutrophils % (A) 95 %; Platelet Count 412 k/uL (150-450); RBC 5.21 m/uL (3.80-5.40); RDW 19.4 % (11.5-15.5)
[2024-07-08] MEDS: SODIUM CHLORIDE 0.9% 1,000 ML IV ONE (13:54)
[2024-07-08] MEDS: SODIUM CHLORIDE 0.9% 500 ML 500 ML IV ONE ×2 (13:54→16:31)
[2024-07-08 14:05] LABS: WBC 30.7 k/uL (3.8-10.6)
[2024-07-08 14:28] LABS: ALT 13 U/L (4-34); AST 21 U/L (14-36); African American GFR (CKD) 43 (>60 ml/min/1.73 sqM); Albumin 3.4 g/dL (3.5-5.0); Alkaline Phosphatase 223 U/L (38-126); Anion Gap 9 mmol/L; Blood Urea Nitrogen 17 mg/dL (7-17); Calcium 8.9 mg/dL (8.4-10.2); Carbon Dioxide 22 mmol/L (22-30); Chloride 96 mmol/L (98-107); Glucose 299 mg/dL (74-99); Non-African American GFR(CKD) 38 (>60 ml/min/1.73 sqM); Potassium 5.5 mmol/L (3.5-5.1); Sodium 127 mmol/L (137-145); Total Protein 7.2 g/dL (6.3-8.2)
[2024-07-08] MEDS: LIDOCAINE 1% INJ 10MG/ML (20 ML MDV) SQ ONE (15:20)
[2024-07-08] MEDS: SODIUM CHLORIDE 0.9% 1,000 ML IV SCH (15:22)
[2024-07-08] MEDS: CLINDAMYCIN 600 MG in DEXTROSE 5% IN WATER 50 ML IVPB STA (15:26)
[2024-07-08] MEDS: ACETAMINOPHEN TAB 500 MG TAB PO STA (15:28)
[2024-07-08] MEDS: HYDROmorphone 0.5 MG/0.5 ML SYRINGE IVP STA (16:31)
--- NOTE | 2024-07-08 16:33 | CT ---
EXAMINATION TYPE: CT abdomen pelvis wo con DATE OF EXAM: 07/08/2024 4:12 PM COMPARISON: None. CLINICAL INDICATION: Female, 64 years old with history of abscess, right groin abscess TECHNIQUE: Axial images were obtained from above the diaphragm to the pubic rami in the axial plane a t 5 mm thick sections. Reconstructed images are reviewed on the computer in the coronal plane. CONTRAST: mL of . Study performed without Oral Contrast DLP: 691 mGycm, Automated exposure control for dose reduction was used. FINDINGS: Limited CT sections are obtained the lung bases. The lung bases are clear. CT ABDOMEN: Liver: Normal Spleen: Normal Pancreas: Normal Adrenal glands: Right adrenal gland is enlarged measuring 1.7 cm and contains a couple of calcificati ons Gallbladder: Surgically absent. Kidneys: No masses are evident. No hydronephrosis is present. No cysts are present. Delayed images were obtained through the kidneys, which remain unremarkable. Aorta: Vascular calcification is within the aorta. Inferior vena cava: There is a filter in the inferior vena cava. Inferior vena cava iliac stent is pr esent on the left. Study is without contrast patency cannot be confirmed CT PELVIS: Loops of bowel within the abdomen and pelvis are normal. This study is without oral contrast limi ting bowel evaluation. Appendix: Normal as visualized. Urinary bladder: There is some asymmetric diffuse wall thickening along the left posterior lateral wa ll. Some thickening may be along the posterior right urinary bladder wall. Consider follow-up. Genitourinary structures: Uterus is unremarkable. Adnexa are normal. Osseous structures: No suspicious lytic or sclerotic lesions. Inflammatory changes are along the medial right thigh extending from the perineal region. There appea rs to be an abscess with adjacent inflammatory changes measuring 4.3 x 0.9 cm. IMPRESSION: 1. Abscess or phlegmon along the right inferior perineal region and labia estimated to measure 4.3 x 0.9 cm with adjacent inflammatory changes right perineum. 2. Some mild smooth wall thickening along the posterior lateral left and posterior right urinary blad [place] wall. Consider follow-up. [facility], Workstation: [facility], 07/08/2024 4:31 PM
--- NOTE | 2024-07-08 17:33 | CT ---
EXAMINATION TYPE: CT pelvis w con DATE OF EXAM: 07/08/2024 COMPARISON: CT earlier today HISTORY: right groin abscess CT DLP: 878.9 mGycm Automated exposure control for dose reduction was used. CONTRAST: Performed with IV Contrast, patient injected with 80 mL of Isovue 300. FINDINGS: Persistent ill-defined fluid and fat stranding in the medial right thigh extending into the perineal region with internal foci of air inferiorly. This area was not included on prior study. Tiny amount o f fluid collection anterior to the subcutaneous air. No thick wall drainable fluid collection or absc ess. The largest collection axial image 55 measures 4.3 x 0.8 cm transversely by 2.4 cm craniocaudal dimension coronal image 49. Prominent lymph node varices anterior and superior to this are redemonstr ated. Metallic stents in the visualized inferior IVC and left iliac venous system into the groin region ar e redemonstrated. Partial visualization of IVC filter. Severe arthritic change of the distal abdomina l aorta into the common iliac arteries is redemonstrated. Scar tissue left groin region anteriorly is redemonstrated. Nondilated appendix incidentally noted with internal appendicolith. No surrounding i nflammatory change. IMPRESSION: PERSISTENT INFLAMMATORY CHANGE RIGHT INFERIOR MEDIAL THIGH REGION EXTENDING POSTERIORLY INTO THE AISSATOU NEUM. A FEW TINY FOCAL FLUID COLLECTIONS OR ABSCESSES ARE PRESENT. THERE ARE FOCI OF SUBCUTANEOUS AIR SEEN INFERIORLY AND THUS NECROTIZING FASCITIS CAN NOT BE EXCLUDED. [facility], , 07/08/2024 5:31 PM
[2024-07-08 18:12] VITALS: TEMP 97.7
[2024-07-08] MEDS: MEROPENEM 1 GM in SODIUM CHLORIDE 0.9% 100 ML IVPB ONE (18:23)
[2024-07-08] MEDS: DAPTOmycin 500 MG in SODIUM CHLORIDE 0.9% 50 ML IVPB ONE (18:54)
[2024-07-08 19:26] VITALS: RESP 18
[2024-07-08 22:02] VITALS: BP 101/52; PULSE 80
== END 2024-07-08 22:03 | disposition other institution (70) ==
LOC: EC 12:28
DX: A41.9 Sepsis, unspecified organism (principal); E11.52 Type 2 diabetes mellitus with diabetic peripheral angiopathy with gangrene; Z87.891 Personal history of nicotine dependence; Z79.84 Long term (current) use of oral hypoglycemic drugs; Z79.4 Long term (current) use of insulin; Z79.82 Long term (current) use of aspirin; Z86.73 Personal history of transient ischemic attack (TIA), and cerebral infarction without residual deficits; Z90.89 Acquired absence of other organs; Z95.5 Presence of coronary angioplasty implant and graft
CPT/HCPCS: 36415; 93005; 80053; 83605; 85025; 87040; 87070; 87205; 72193; 74176; 99285; 96365; 96361; J0696; J2003; J2185; J1171 ×2; Q9967; J0878; J0736

== ENCOUNTER 2024-10-05 11:29 | Inpatient (IN) | payer MEDICARE, OTHER ==
--- NOTE | 2024-10-05 12:05 | ED ---
General Adult HPI - General Chief complaint: Fever Stated complaint: AMS Time Seen by Provider: 10/05/24 12:03 Source: patient, EMS, RN notes reviewed Mode of arrival: EMS Limitations: no limitations - History of Present Illness Initial comments: 64-year-old female presenting for postop complication. Patient states that on September 14 she had a procedure with Dr. Pardo for a left femoral occlusion. States the incision site is in the left hip area and also reports incision at the right hip area as well. States she was healing well until about 4 days ago she noticed redness and drainage from the left incision site. She also reports chills, subjective fevers, and diarrhea at home. Son is at bedside and reports patient has been very weak. Denies cough, congestion. She is on Eliquis. - Related Data Home Medications Medication Instructions Recorded Confirmed Ergocalciferol (Vitamin D2) 1,250 mcg PO GUERRERO@0800 04/01/23 09/14/24 [Drisdol (50,000 Iu)] Nitroglycerin Sl Tabs [Nitrostat] 0.4 mg SL Q5M PRN 04/01/23 09/14/24 Apixaban [Eliquis] 5 mg PO BID 05/20/23 09/14/24 DULoxetine HCL [Cymbalta] 60 mg PO QAM 07/04/23 09/14/24 INSULIN ASPART (NovoLOG) [NovoLOG See Protocol SQ ACHS 07/04/23 09/14/24 (formulary)] Metoprolol Tartrate [Lopressor] 25 mg PO BID 07/04/23 09/14/24 Magnesium Oxide [Mag-Ox] 500 mg PO DAILY 08/09/23 09/14/24 Melatonin 3 mg PO HS@2100 PRN 08/09/23 09/14/24 Spironolactone 25 mg PO DAILY 08/09/23 09/14/24 Atorvastatin Calcium [Lipitor] 80 mg PO DAILY 09/16/23 09/14/24 Gabapentin [Neurontin] 400 mg PO TID 10/22/23 09/14/24 INSULIN ASPART (NovoLOG) [NovoLOG 12 unit SQ TID@0800,1200,1700 10/22/23 09/14/24 (formulary)] Ipratropium-Albuterol Nebulize 3 ml INHALATION RT-Q6H PRN 10/22/23 09/14/24 [Duoneb 0.5 mg-3 mg/3 ml Soln] Dapagliflozin Propanediol [Farxiga] 10 mg PO DAILY 02/27/24 09/14/24 Insulin Glargine,Hum.rec.anlog 46 units SQ HS 02/27/24 09/14/24 [Lantus Solostar Pen] Pantoprazole [Protonix] 40 mg PO QAM 02/27/24 09/14/24 Aspirin EC [Ecotrin Low Dose] 81 mg PO DAILY 07/08/24 09/14/24 Cyclobenzaprine HCl 10 mg PO HS PRN 09/09/24 09/14/24 Enoxaparin Sodium 80 mg SQ DIRECTED 09/11/24 09/14/24 Previous Rx's Medication Instructions Recorded oxyCODONE-APAP 7.5-325MG [Percocet 1 each PO Q6HR PRN 3 Days #12 tab 09/16/24 7.5-325 mg] Allergies Allergy/AdvReac Type Severity Reaction Status Date / Time vancomycin Allergy Rash/Hives/and Verified 10/05/24 11:36 vomiting diarrhea/Swelling Review of Systems ROS Statement: Those systems with pertinent positive or pertinent negative responses have been documented in the HPI. ROS Other: All systems not noted in ROS Statement are negative. Past Medical History Past Medical History: Coronary Artery Disease (CAD), Cancer, CVA/TIA, Diabetes Mellitus, Deep Vein Thrombosis (DVT), GERD/Reflux, Memory Impairment, Osteoarthritis (OA), Pulmonary Embolus (PE), Vascular Disorder Additional Past Medical History / Comment(s): hospitalization end of Aug 2024 for abscess rt groin-now resolved-pt stated "Dr Hughes aware and followed up with Dr Tejeda aware & ok to proceed with surgery with Dr Hughes", Hx hospitalization Aug 2023- Diarrhea, cellulitis rt AKA (AKA 06-07-23)site and PICC line placement (Power PICC SOLO2 catheter ),hx SKIN CA to neck. 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 Azar H+P pt c/o dysphonia pt confirms. chronic diarrhea. hx of low BP issues,has minimum mobility left arm-elbow goes out Last Myocardial Infarction Date:: 2010 History of Any Multi-Drug Resistant Organisms: MRSA Date of last positivie culture/infection: 08/09/23 MDRO Source:: Right Leg Past Surgical History: Section, Cholecystectomy, Heart Catheterization, Heart Catheterization With Stent, Orthopedic Surgery, Tonsillectomy, Tubal Ligation Additional Past Surgical History / Comment(s): Right Below Knee Amputation 04/2023, 11 Stents in mid thigh left leg, fistula left thigh, full mouth teeth extraction, TRAPEASE VENA CAVA FILTER mid thigh left leg,rt carpel tunnel , heart stents x4 rca and lad, tumor removal from uterus. Genital warts removed, INGRID. Skin cancer removed from neck, rt great toe amputated, colonoscopy, rt rotator, left shoulder replacement, cervial fusion, rt calf debridement, rt calf skin graft (May 2023) Past Anesthesia/Blood Transfusion Reactions: No Reported Reaction Additional Past Anesthesia/Blood Transfusion Reaction / Comment(s): no complications with prior blood tranfusions Date of Last Stent Placement:: Mar 2023 Past Psychological History: Anxiety, Depression Smoking Status: Former smoker Past Alcohol Use History: None Reported Past Drug Use History: None Reported - Past Family History Mother Family Medical History: Cancer, Congestive Heart Failure (CHF), Diabetes Mellitus, Myocardial Infarction (GA) Additional Family Medical History / Comment(s): UTERINE CANCER Father Family Medical History: Coronary Artery Disease (CAD), Myocardial Infarction (GA) Additional Family Medical History / Comment(s): Father at age 70. Sister(s) Family Medical History: Myocardial Infarction ([place]) Additional Family Medical History / Comment(s): Patient has one sister with myocardial infarction at age 55. Son(s) Family Medical History: Deep Vein Thrombosis (DVT), Pulmonary Embolus Additional Family Medical History / Comment(s): Patient has 2 sons and one has history of DVT and pulmonary embolism. General Exam Limitations: no limitations General appearance: alert, in no apparent distress Head exam: Present: atraumatic, normocephalic, normal inspection GI/Abdominal exam: Present: soft, normal bowel sounds. Absent: distended, tenderness, guarding, rebound, rigid Extremities exam: Present: other (Right [id number] amputation. Left DP pulse intact) Neurological exam: Present: alert, oriented X3 Psychiatric exam: Present: normal affect, normal mood Skin exam: Present: warm, dry, intact, normal color, rash (Incision site at left hip is erythematous with white purulent drainage and tenderness to palpation) Course Vital Signs 10/05/24 11:31 Temperature 99.2 F Pulse Rate 69 Respiratory 16 Rate Blood Pressure 129/66 O2 Sat by Pulse 97 Oximetry EKG Findings - EKG Results: EKG: interpreted by FRANCHESKAD (EKG reveals normal sinus rhythm with no ST changes. Ventricular rate 67 bpm, OK interval 137, QRS duration 110, QT/QTc 416/432) Medical Decision Making - Medical Decision Making Was pt. sent in by a medical professional or institution (, PA, RAD TECHNOLOGIST, urgent care, hospital, or intermediate...) When possible be specific @ -No Did you speak to anyone other than the patient for history (EMS, parent, family, police, friend...)? What history was obtained from this source @ -Son supplemented history Did you review nursing and triage notes (agree or disagree)? Why? @ -I reviewed and agree with nursing and triage notes Were old charts reviewed (outside hosp., previous admission, EMS record, old EKG, old radiological studies, urgent care reports/EKG's, intermediate records)? Report findings @ -No old charts were reviewed Differential Diagnosis (chest pain, altered mental status, abdominal pain women, abdominal pain men, vaginal bleeding, weakness, fever, dyspnea, syncope, headache, dizziness, GI bleed, back pain, seizure, CVA, palpatations, mental health, musculoskeletal)? @ -Differential Musculoskeletal Muscular strain, contusion, ligament sprain, fracture, arthritis, septic arthritis, bursitis, cellulitis, muscle spasm, nerve compression, DVT, arterial occlusion, herpes zoster, electrolyte abnormality, tumor.... This is not meant to be in all inclusive list EKG interpreted by me (3pts min.). @ -As above X-rays interpreted by me (1pt min.). @ -X-ray left hip pending at time of admission CT interpreted by me (1pt min.). @ -None done U/S interpreted by me (1pt. min.). @ -None done What testing was considered but not performed or refused? (CT, X-rays, U/S, labs)? Why? @ -None What meds were considered but not given or refused? Why? @ -None Did you discuss the management of the patient with other professionals (professionals i.e. Dr., PA, RAD TECHNOLOGIST, lab, RT, psych nurse, secondary social studies teacher, blood collector, teacher, court registry officer, briefcase sewer)? Give summary @ -I spoke with Dr. Tejeda who accepts admission for hypokalemia requests consultation to infectious disease and vascular services Was smoking cessation discussed for >3mins.? @ -No Was critical care preformed (if so, how long)? @ -No Were there social determinants of health that impacted care today? How? (Homelessness, low income, unemployed, alcoholism, drug addiction, transportation, low edu. Level, literacy, decrease access to med. care, longterm, rehab)? @ -No Was there de-escalation of care discussed even if they declined (Discuss DNR or withdrawal of care, Hospice)? DNR status @ -No What co-morbidities impacted this encounter? (DM, HTN, Smoking, COPD, CAD, Cancer, CVA, ARF, Chemo, Hep., AIDS, mental health diagnosis, sleep apnea, morbid obesity)? @ -None Was patient admitted / discharged? Hospital course, mention meds given and route, prescriptions, significant lab abnormalities, going to OR and other pertinent info. @ -Admitted. 64-year-old female presenting for incision site infection. Patient underwent occlusion surgery with Dr. Hughes on September 14. States the past 4 months incision site has been red and draining. Vital signs within acceptable limits. Patient is afebrile, nontachycardic, blood pressure stable. Physical examination remarkable for erythema and white purulent drainage present at incision site of left hip. Neurovascularly intact. Lab work remarkable for a leukocytosis of 14, hypokalemia of 2.7, lactic normal. EKG reveals normal sinus rhythm with no ST changes. I spoke with Dr. Tejeda who accepts admission for hypokalemia with consultation requests to infectious disease and vascular. Requests patient started on IV cefepime as well as potassium replacement. Case was discussed with my ED attending Dr. King. Undiagnosed new problem with uncertain prognosis? @ -No Drug Therapy requiring intensive monitoring for toxicity (Heparin, Nitro, Insulin, Cardizem)? @ -No Were any procedures done? @ -No Diagnosis/symptom? @ -Hypokalemia Acute, or Chronic, or Acute on Chronic? @ -Acute Uncomplicated (without systemic symptoms) or Complicated (systemic symptoms)? @ -Complicated Side effects of treatment? @ -No Exacerbation, Progression, or Severe Exacerbation? @ -No Poses a threat to life or bodily function? How? (Chest pain, USA, GA, pneumonia, PE, COPD, DKA, ARF, appy, cholecystitis, CVA, Diverticulitis, Homicidal, Suicidal, threat to staff... and all critical care pts) @ -Yes - Lab Data Result diagrams: 10/05/24 12:15 10/05/24 12:15 Lab Results 10/05/24 10/05/24 10/05/24 Range/Units 12:05 12:15 12:15 WBC 14.0 H (3.8-10.6) k/uL RBC 3.58 L (3.80-5.40) m/uL Hgb 8.7 L (11.4-16.0) gm/dL Hct 28.3 L (34.0-46.0) % MCV 79.0 L (80.0-100.0) fL MCH 24.2 L (25.0-35.0) pg MCHC 30.6 L (31.0-37.0) g/dL RDW 17.2 H (11.5-15.5) % Plt Count 280 (150-450) k/uL MPV 8.4 Neutrophils % 86 % Lymphocytes % 6 % Monocytes % 5 % Eosinophils % 2 % Basophils % 0 % Neutrophils # 12.0 H (1.3-7.7) k/uL Lymphocytes # 0.9 L (1.0-4.8) k/uL Monocytes # 0.7 (0-1.0) k/uL Eosinophils # 0.3 (0-0.7) k/uL Basophils # 0.0 (0-0.2) k/uL Hypochromasia Marked Poikilocytosis Slight Anisocytosis Slight Microcytosis Slight Sodium 131 L (137-145) mmol/L Potassium 2.7 L* (3.5-5.1) mmol/L Chloride 96 L (98-107) mmol/L Carbon Dioxide 30 (22-30) mmol/L Anion Gap 5 mmol/L BUN 13 (7-17) mg/dL Creatinine 0.83 (0.52-1.04) mg/dL Est GFR (CKD-EPI)AfAm 87 (>60 ml/min/1.73 sqM) Est GFR (CKD-EPI)NonAf 76 (>60 ml/min/1.73 sqM) Glucose 271 H (74-99) mg/dL Plasma Lactic Acid Mynor (0.7-2.0) mmol/L Calcium 7.4 L (8.4-10.2) mg/dL Magnesium 1.6 (1.6-2.3) mg/dL Total Bilirubin 0.8 (0.2-1.3) mg/dL AST 13 L (14-36) U/L ALT 6 (4-34) U/L Alkaline Phosphatase 94 (38-126) U/L Total Protein 5.0 L (6.3-8.2) g/dL Albumin 2.1 L (3.5-5.0) g/dL Influenza Type A (PCR) (Not Detectd) Influenza Type B (PCR) (Not Detectd) RSV (PCR) (Not Detectd) SARS-CoV-2 (PCR) (Not Detectd) 10/05/24 10/05/24 Range/Units 12:15 12:15 WBC (3.8-10.6) k/uL RBC (3.80-5.40) m/uL Hgb (11.4-16.0) gm/dL Hct (34.0-46.0) % MCV (80.0-100.0) fL MCH (25.0-35.0) pg MCHC (31.0-37.0) g/dL RDW (11.5-15.5) % Plt Count (150-450) k/uL MPV Neutrophils % % Lymphocytes % % Monocytes % % Eosinophils % % Basophils % % Neutrophils # (1.3-7.7) k/uL Lymphocytes # (1.0-4.8) k/uL Monocytes # (0-1.0) k/uL Eosinophils # (0-0.7) k/uL Basophils # (0-0.2) k/uL Hypochromasia Poikilocytosis Anisocytosis Microcytosis Sodium (137-145) mmol/L Potassium (3.5-5.1) mmol/L Chloride (98-107) mmol/L Carbon Dioxide (22-30) mmol/L Anion Gap mmol/L BUN (7-17) mg/dL Creatinine (0.52-1.04) mg/dL Est GFR (CKD-EPI)AfAm (>60 ml/min/1.73 sqM) Est GFR (CKD-EPI)NonAf (>60 ml/min/1.73 sqM) Glucose (74-99) mg/dL Plasma Lactic Acid Mynor 1.5 (0.7-2.0) mmol/L Calcium (8.4-10.2) mg/dL Magnesium (1.6-2.3) mg/dL Total Bilirubin (0.2-1.3) mg/dL AST (14-36) U/L ALT (4-34) U/L Alkaline Phosphatase (38-126) U/L Total Protein (6.3-8.2) g/dL Albumin (3.5-5.0) g/dL Influenza Type A (PCR) Not Detected (Not Detectd) Influenza Type B (PCR) Not Detected (Not Detectd) RSV (PCR) Not Detected (Not Detectd) SARS-CoV-2 (PCR) Not Detected (Not Detectd) Disposition Clinical Impression: Hypokalemia Disposition: ADMITTED IP TO THIS [facility] Referrals: Tramaine Tejeda MD [Primary Care Provider] - 1-2 days Time of Disposition: 13:59
[2024-10-05] MEDS: MORPHINE SULFATE 4 MG/ML SYRINGE IVP STA (12:13)
[2024-10-05 12:34] LABS: Anisocytosis Slight; Basophils % (A) 0 %; Eosinophils # (A) 0.3 k/uL (0-0.7); Eosinophils % (A) 2 %; HCT 28.3 % (34.0-46.0); HGB 8.7 gm/dL (11.4-16.0); Hypochromasia Marked; Lymphocytes # (A) 0.9 k/uL (1.0-4.8); Lymphocytes % (A) 6 %; MCH 24.2 pg (25.0-35.0); MCHC 30.6 g/dL (31.0-37.0); Mean Platelet Volume 8.4; Microcytosis Slight; Monocytes # (A) 0.7 k/uL (0-1.0); Monocytes % (A) 5 %; Neutrophils % (A) 86 %; Platelet Count 280 k/uL (150-450); Poikilocytosis Slight; RBC 3.58 m/uL (3.80-5.40); RDW 17.2 % (11.5-15.5)
[2024-10-05 12:46] LABS: ALT 6 U/L (4-34); AST 13 U/L (14-36); African American GFR (CKD) 87 (>60 ml/min/1.73 sqM); Albumin 2.1 g/dL (3.5-5.0); Alkaline Phosphatase 94 U/L (38-126); Anion Gap 5 mmol/L; Blood Urea Nitrogen 13 mg/dL (7-17); Calcium 7.4 mg/dL (8.4-10.2); Carbon Dioxide 30 mmol/L (22-30); Chloride 96 mmol/L (98-107); Glucose 271 mg/dL (74-99); Non-African American GFR(CKD) 76 (>60 ml/min/1.73 sqM); Sodium 131 mmol/L (137-145); Total Bilirubin 0.8 mg/dL (0.2-1.3)
[2024-10-05 12:51] LABS: Potassium 2.7 mmol/L (3.5-5.1)
[2024-10-05 13:09] LABS: Influenza A Not Detected (Not Detectd); Influenza B Not Detected (Not Detectd); RSV Not Detected (Not Detectd)
[2024-10-05] MEDS ORDERED: NALOXONE 0.4 MG/ML 1 ML VIAL IV PRN (13:50)
[2024-10-05] MEDS ORDERED: ACETAMINOPHEN TAB 325 MG TAB PO PRN (13:50)
--- NOTE | 2024-10-05 14:09 | XR ---
EXAMINATION TYPE: XR Hip Complete LT DATE OF EXAM: 10/05/2024 2:03 PM INDICATION: Patient age:Female; 64 years old; Reason for study: infection at incision site; PHH. pain COMPARISON: CT pelvis 07/08/2024 TECHNIQUE: The left hip was examined in the frontal and lateral projections . FINDINGS: No evidence of any acute osseous pathology, joint dislocation, or soft tissue swelling. Lef t common femoral vein stent. Vascular sclerosis. Couple of soft tissue granulomas identified. Couple of surgical clips within the bilateral inguinal regions. IMPRESSION: No acute osseous pathology. [facility], , 10/05/2024 2:07 PM
[2024-10-05] MEDS: POTASSIUM CHLORIDE ER 20 MEQ TAB.ER PO SCH (14:21)
[2024-10-05] MEDS: CEFEPIME 2 GM in SODIUM CHLORIDE 0.9% 100 ML IVPB STA (14:21)
[2024-10-05] MEDS: POTASSIUM CHLORIDE 10 MEQ in WATER FOR INJECTION 1 100ML.BAG IVPB SCH (14:26)
[2024-10-05] MEDS: MORPHINE SULFATE 4 MG/ML SYRINGE IV PRN (15:15)
--- NOTE | 2024-10-05 15:24 | P.GSCN ---
History of Present Illness Consult date: 10/05/24 Reason for Consult: Incision site infection Requesting physician: Marianne Bustamante History of present illness: This is a pleasant 64-year-old female well-known to vascular surgical services. She underwent bilateral common femoral artery thromboendarterectomy and femorofemoral bypass on 09/14/[address] Hughes. She also has a history of peripheral arterial disease with chronic wounds to the right lower extremity and is status post [id number] amputation,, diabetes mellitus, obesity, coronary artery disease, history of DVT and pulmonary embolism. She is coming in with reported left incision drainage and redness with complaints of fevers and chills. Also complains of pain of the right groin. Patient had an appointment with her vascular surgeon Dr. Hughes on however was a no-show and states she did not feel good so did not go to her appointment. She states symptoms began about 4 days ago prior to that everything seem to be healing well. She states she has no pain down her left lower extremity or her foot. Patient has leukocytosis on admission with hypokalemia. She is afebrile on p resentation. Vascular surgery and infectious disease were consulted for concerns for incision infection. Review of Systems A 14 point review systems was completed all pertinent positives and negatives as stated in the HPI. Past Medical History Past Medical History: Coronary Artery Disease (CAD), Cancer, CVA/TIA, Diabetes Mellitus, Deep Vein Thrombosis (DVT), GERD/Reflux, Memory Impairment, Osteoarthritis (OA), Pulmonary Embolus (PE), Vascular Disorder Additional Past Medical History / Comment(s): hospitalization end of Aug 2024 for abscess rt groin-now resolved-pt stated "Dr Hughes aware and followed up with Dr Tejeda aware & ok to proceed with surgery with Dr Hughes", Hx hospitalization Aug 2023- Diarrhea, cellulitis rt AKA (AKA 06-07-23)site and PICC line placement (Power PICC SOLO2 catheter ),hx SKIN CA to neck. 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 Azar H+P pt c/o dysphonia pt confirms. chronic diarrhea. hx of low BP issues,has minimum mobility left arm-elbow goes out Last Myocardial Infarction Date:: 2010 History of Any Multi-Drug Resistant Organisms: MRSA Year Discovered:: 08/09/23 MDRO Source:: Right Leg Past Surgical History: Section, Cholecystectomy, Heart Catheterization, Heart Catheterization With Stent, Orthopedic Surgery, Tonsillectomy, Tubal Ligation Additional Past Surgical History / Comment(s): Right Below Knee Amputation 04/2023, 11 Stents in mid thigh left leg, fistula left thigh, full mouth teeth extraction, TRAPEASE VENA CAVA FILTER mid thigh left leg,rt carpel tunnel , hea rt stents x4 rca and lad, tumor removal from uterus. Genital warts removed, INGRID. Skin cancer removed from neck, rt great toe amputated, colonoscopy, rt rotator, left shoulder replacement, cervial fusion, rt calf debridement, rt calf skin graft (May 2023) Past Anesthesia/Blood Transfusion Reactions: No Reported Reaction Additional Past Anesthesia/Blood Transfusion Reaction / Comm: no complications with prior blood tranfusions Date of Last Stent Placement:: Mar 2023 Past Psychological History: Anxiety, Depression Smoking Status: Former smoker Past Alcohol Use History: None Reported Past Drug Use History: None Reported - Past Family History Mother Family Medical History: Cancer, Congestive Heart Failure (CHF), Diabetes Mellitus, Myocardial Infarction ([place]) Additional Family Medical History / Comment(s): UTERINE CANCER Father Family Medical History: Coronary Artery Disease (CAD), Myocardial Infarction ([place] ) Additional Family Medical History / Comment(s): Father at age 70. Sister(s) Family Medical History: Myocardial Infarction ([place]) Additional Family Medical History / Comment(s): Patient has one sister with myocardial infarction at age 55. Son(s) Family Medical History: Deep Vein Thrombosis (DVT), Pulmonary Embolus Additional Family Medical History / Comment(s): Patient has 2 sons and one has history of DVT and pulmonary embolism. Medications and Allergies Home Medications Medication Instructions Recorded Confirmed Type Ergocalciferol (Vitamin D2) 1,250 mcg PO GUERRERO@0800 04/01/23 09/14/24 History [Drisdol (50,000 Iu)] Nitroglycerin Sl Tabs [Nitrostat] 0.4 mg SL Q5M PRN 04/01/23 09/14/24 History Apixaban [Eliquis] 5 mg PO BID 05/20/23 09/14/24 History DULoxetine HCL [Cymbalta] 60 mg PO QAM 07/04/23 09/14/24 History INSULIN ASPART (NovoLOG) [NovoLOG See Protocol SQ ACHS 07/04/23 09/14/24 History (formulary)] Metoprolol Tartrate [Lopressor] 25 mg PO BID 07/04/23 09/14/24 History Magnesium Oxide [Mag-Ox] 500 mg PO DAILY 08/09/23 09/14/24 History Melatonin 3 mg PO HS@2100 PRN 08/09/23 09/14/24 History Spironolactone 25 mg PO DAILY 08/09/23 09/14/24 History Atorvastatin Calcium [Lipitor] 80 mg PO DAILY 09/16/23 09/14/24 History Gabapentin [Neurontin] 400 mg PO TID 10/22/23 09/14/24 History INSULIN ASPART (NovoLOG) [NovoLOG 12 unit SQ TID@0800,1200,1700 10/22/23 History (formulary)] Ipratropium-Albuterol Nebulize 3 ml INHALATION RT-Q6H PRN 10/22/23 09/14/24 History [Duoneb 0.5 mg-3 mg/3 ml Soln] Dapagliflozin Propanediol [Farxiga] 10 mg PO DAILY 02/27/24 09/14/24 History Insulin Glargine,Hum.rec.anlog 46 units SQ HS 02/27/24 09/14/24 History [Lantus Solostar Pen] Pantoprazole [Protonix] 40 mg PO QAM 02/27/24 09/14/24 History Aspirin EC [Ecotrin Low Dose] 81 mg PO DAILY 07/08/24 09/14/24 History Cyclobenzaprine HCl 10 mg PO HS PRN 09/09/24 09/14/24 History Enoxaparin Sodium 80 mg SQ DIRECTED 09/11/24 09/14/24 History oxyCODONE-APAP 7.5-325MG [Percocet 1 each PO Q6HR PRN 3 Days #12 tab 02/12/25 Rx 7.5-325 mg] Allergies Allergy/AdvReac Type Severity Reaction Status Date / Time vancomycin Allergy Rash/Hives/and Verified 10/05/24 11:36 vomiting diarrhea/Swelling Surgical - Exam Vital Signs Temp Pulse Resp BP Pulse Ox 99.2 F 69 16 129/66 97 10/05/24 11:31 10/05/24 11:31 10/05/24 11:31 10/05/24 11:31 10/05/24 11:31 General appearance: The patient is alert, oriented, appears in no acute distress. Obese. HET: Head is normocephalic and atraumatic. Pupils are equal and reactive. Neck: Supple. Heart: Regular. Lungs: Equal expansion, normal respiratory effort. Abdomen: Soft, nontender, nondistended. Extremities: Left groin surgical incision with opening and mid incision with yellowish drainage, surrounding erythema. Right groin incision well- approximated, tender to palpation. Left lower extremity warm to the touch, good capillary refill and sensorimotor intact. Positive PT Doppler signal. Right [id number]-[id number] amputation well-healed. Neurological: Alert and oriented. Results - Labs 10/05/24 12:15 10/05/24 12:15 Abnormal Lab Results - Last 24 Hours (Table) 10/05/24 10/05/24 Range/Units 12:15 12:15 WBC 14.0 H (3.8-10.6) k/uL RBC 3.58 L (3.80-5.40) m/uL Hgb 8.7 L (11.4-16.0) gm/dL Hct 28.3 L (34.0-46.0) % MCV 79.0 L (80.0-100.0) fL MCH 24.2 L (25.0-35.0) pg MCHC 30.6 L (31.0-37.0) g/dL RDW 17.2 H (11.5-15.5) % Neutrophils # 12.0 H (1.3-7.7) k/uL Lymphocytes # 0.9 L (1.0-4.8) k/uL Sodium 131 L (137-145) mmol/L Potassium 2.7 L* (3.5-5.1) mmol/L Chloride 96 L (98-107) mmol/L Glucose 271 H (74-99) mg/dL Calcium 7.4 L (8.4-10.2) mg/dL AST 13 L (14-36) U/L Total Protein 5.0 L (6.3-8.2) g/dL Albumin 2.1 L (3.5-5.0) g/dL Diabetes panel 10/05/24 Range/Units 12:15 Sodium 131 L (137-145) mmol/L Potassium 2.7 L* (3.5-5.1) mmol/L Chloride 96 L (98-107) mmol/L Carbon Dioxide 30 (22-30) mmol/L BUN 13 (7-17) mg/dL Creatinine 0.83 (0.52-1.04) mg/dL Glucose 271 H (74-99) mg/dL Calcium 7.4 L (8.4-10.2) mg/dL AST 13 L (14-36) U/L ALT 6 (4-34) U/L Alkaline Phosphatase 94 (38-126) U/L Total Protein 5.0 L (6.3-8.2) g/dL Albumin 2.1 L (3.5-5.0) g/dL Calcium panel 10/05/24 Range/Units 12:15 Calcium 7.4 L (8.4-10.2) mg/dL Albumin 2.1 L (3.5-5.0) g/dL Pituitary panel 10/05/24 Range/Units 12:15 Sodium 131 L (137-145) mmol/L Potassium 2.7 L* (3.5-5.1) mmol/L Chloride 96 L (98-107) mmol/L Carbon Dioxide 30 (22-30) mmol/L BUN 13 (7-17) mg/dL Creatinine 0.83 (0.52-1.04) mg/dL Glucose 271 H (74-99) mg/dL Calcium 7.4 L (8.4-10.2) mg/dL Adrenal panel 10/05/24 Range/Units 12:15 Sodium 131 L (137-145) mmol/L Potassium 2.7 L* (3.5-5.1) mmol/L Chloride 96 L (98-107) mmol/L Carbon Dioxide 30 (22-30) mmol/L BUN 13 (7-17) mg/dL Creatinine 0.83 (0.52-1.04) mg/dL Glucose 271 H (74-99) mg/dL Calcium 7.4 L (8.4-10.2) mg/dL Total Bilirubin 0.8 (0.2-1.3) mg/dL AST 13 L (14-36) U/L ALT 6 (4-34) U/L Alkaline Phosphatase 94 (38-126) U/L Total Protein 5.0 L (6.3-8.2) g/dL Albumin 2.1 L (3.5-5.0) g/dL - Imaging Comments: Left hip x-ray reports no acute osseous pathology. Assessment and Plan Assessment: 1. Left groin surgical incision wound, concern for infection 2. Recent bilateral common femoral artery thromboendarterectomy and femorofemoral bypass 3. Hypokalemia 4. Peripheral arterial disease 5. History of right epuje-ppw-gnxu amputation 6. Obesity 7. Diabetes mellitus 8. History of DVT and pulmonary embolism Plan: 1. Replace potassium per protocol 2. Wound cultures collected, currently pending 3. Appreciate recommendations from infectious disease 4. Left groin incision clean with Dakin solution, and apply wet-to-dry dressing 5. Will consult wound care management 6. Pain medication as needed 7. May have consistent carbohydrate diet 8. Rest of medical management per primary medical team 9. Further recommendations forthcoming based on clinical course Thank you for this consultation, we will continue to follow. The impression and plan of care has been dictated as directed. Dr. Hughes I performed a history and examination of this patient, discussed the same with the dictator. I agree with the dictator's note ,documented as a scribe. Any additional findings or plans will be noted.
[2024-10-05] MEDS: DAPTOmycin 350 MG in SODIUM CHLORIDE 0.9% 50 ML IVPB SCH (15:59)
[2024-10-05] MEDS: SODIUM HYPOCHLORITE 0.5% 480 ML BOT MISCELLANE SCH (18:07)
[2024-10-05] MEDS ORDERED: NITROGLYCERIN SL TABS 0.4 MG TAB SUBLINGUAL PRN (18:12)
[2024-10-05] MEDS ORDERED: oxyCODONE-APAP 7.5-325MG 1 EACH TAB PO PRN (18:12)
[2024-10-05] MEDS ORDERED: CYCLOBENZAPRINE 10 MG TAB PO PRN (18:12)
--- NOTE | 2024-10-05 19:15 | P.HPIM ---
History of Present Illness H&P Date: 10/05/24 Chief Complaint: Infected left groin incision status post bilateral femoral endarterectomy HISTORY OF PRESENT ILLNESS This is a 64-year-old female patient of mine with history of CAD with multiple cardiac stents in mid RCA, mid LAD, obtuse marginal branch and followed by Dr. Bill closely, peripheral artery disease with previous stenting done as well has amputation of the right great toe secondary to osteomyelitis, CVA with no residual deficits, hypertension, COPD, diabetes mellitus type 2, previous multiple DVT and PE requiring chronic anticoagulation on eliquis, history of GI bleed secondary to antral gastritis, esophagitis, vitamin D deficiency, history of left humerus fracture, history of PAD post right AKA and CAD post PCI of the RCA with intermediate disease of the LAD, patient underwent bilateral femoral thromboendarterectomy with femorofemoral bypass that was done successfully by Dr. Pardo on 09/14/2024 and the patient was discharged home was doing fine, tell last Saturday when she developed to have a significant diarrheal illness, associated with generalized fatigue and weakness not able to do anything, was not able to keep anything down, was supposed to go to see Dr. Pardo on for follow-up, but she could not make it because she was extremely weak and her son was not available to take her patient apparently stayed at home until her son came and and she ended up calling 911 for the patient to be brought into the emergency department because of generalized weakness not able to ambulate, and transfer herself, she ended up coming to the emergency department because of significant erythema and drainage from the left groin area where the surgical incision was done, there was concerns about infection in that area, patient was started on cefepime 2 g piggyback every 8 hours, daptomycin 350 mg IV piggyback every 24 hours, blood culture, x 2, wound culture aerobic and anaerobic, vascular surgery consultation as well as infectious disease consultation was obtained, patient also was found to have a severe hypokalemia, she will be replaced per protocol, she will be given a total of 120 mill equivalent of potassium today repeat CMP tomorrow morning. I will repeat her potassium this evening. REVIEW OF SYSTEMS Constitutional: No fever, No chills, no night sweats. Reports no weight loss. Reports weakness, Reports fatigue no lethargy. NO daytime sleepiness. HEENT: No headache. No dizziness. No nasal drainage or congestion. No epistaxis. No sore throat. Lungs: No shortness of breath, no cough, no sputum production. No wheezing. Cardiovascular: No chest pain, no lower extremity edema. No palpitations. No paroxysmal nocturnal dyspnea. No orthopnea. No lightheadedness or dizziness. No syncopal episodes. Abdominal: Reports no abdominal pain. Reports nausea, no vomiting. no diarrhea. No constipation. No bloody or tarry stools. good appetite. Genitourinary: No dysuria, increased frequency, urgency. No urinary retention. Musculoskeletal: No myalgias. positive for muscle weakness, reports balance issues. Integumentary: Right AKA , left lower extremity is intact, pulses by Doppler, bilateral groin area with dressing. Neurologic: No aphasia. No facial droop. No change in mentation. No head injury. No headache. No paralysis. No paresthesia. Psychiatric: Reports depression. Reports anxiety. No mood swings. Endocrine: abnormal blood sugars. positive for weight change. No excessive sweating or thirst. No cold intolerance. MEDICAL HISTORY Coronary artery disease with multiple cardiac stents in the RCA, mid LAD, obtuse marginal branch Peripheral artery disease with previous stenting Right great toe osteomyelitis status post amputation CVA with no residual deficits Hypertension Hyperlipidemia COPD Diabetes mellitus type 2 Multiple DVT and PE on chronic anticoagulation History of GI bleed secondary to antral gastritis and esophagitis Vitamin D deficiency Orthostatic hypotension SURGICAL HISTORY Cholecystectomy Tonsillectomy Tubal ligation 11 stents in the left leg Full teeth extraction Trapeze vena cava filter Carpal tunnel release Coronary artery stents 4 to the RCA, LAD, obtuse marginal Tumor removed from the uterus will INGRID Skin cancer removal from the neck Right great toe amputation Right AKA Colonoscopy and EGD I&D right groin abscess Anterior approach cervical disc fusion. Bilateral femoral thromboendarterectomy and femorofemoral bypass to left lower extremity 09/14/2024 SOCIAL HISTORY Patient is a smoker of about half a pack per day since 1993 and quit prior to her cervical surgery. No alcohol use, illicit drug use. Patient lives at home with her . FAMILY HISTORY Mother has history of uterine cancer, diabetes, myocardial infarction, heart failure. Father at age 70 from myocardial infarction. Patient has one sister and she had a myocardial infarction at age 55. Patient has 2 sons and one has history of DVT and pulmonary embolism. PHYSICAL EXAMINATION Gen: This is a 64-year-old female. She is resting in bed i no acute distress HEENT: Head is atraumatic, normocephalic. Pupils equal, round. Sclerae is anicteric. Mucous members of the mouth are somewhat dry. NECK: Supple. No JVD. No lymphadenopathy. No thyromegaly. LUNGS: Clear to auscultation. No wheezes or rhonchi. No intercostal retractions. 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 ABDOMEN: Soft, non tender non distended and no rebound or guarding positive bowel sounds EXTREMITIES: Right above-knee amputation , left lower extremity is intact. Left groin area with an infected wound. And minimal erythema and drainage. NEUROLOGICAL: Patient is awake, alert and oriented x3. Cranial nerves 2 through 12 are grossly intact muscle power were 4 out of 5 in upper extremity is, and 3 out of 5 in the left lower extremity. She does have a right above-knee amputation. ASSESSMENT AND PLAN 1. Infected incision site of the left bilateral femoral endarterectomy with femoral-femoral bypass surgery that was done by Dr. Pardo 09/14/2024. Start the patient on IV fluid resuscitation in the form of normal saline 75 cc an hour, wound culture including aerobic and anaerobic culture, blood culture, start the patient on cefepime 2 g piggyback every 8 hours, daptomycin 350 mg IV piggyback every 24 hours infectious disease consultation, vascular surgery consultation appreciated, continue with Dakin's solution, continue to follow-up with the patient very closely. Continue current pain management. 2. Severe hypokalemia with a potassium of 2.7. Status post replacement repeat the patient CMP and magnesium tomorrow morning, I will recheck her potassium this evening. 3. Coronary artery disease with recent stent of the RCA due to recent in-stent restenosis. Patient has had previous multiple cardiac stents to the RCA and mid LAD, obtuse marginal branch. Continue patient on aspirin 81 mg daily, Lopressor 25 mg twice daily, Atorvastatin 80 mg po daily . 4. Diabetes mellitus type 2 uncontrolled with hypoglycemia , we will continue Lantus 46 units units at bedtime, along with a sliding scale insulin, continue with Humalog 12 units before each meal along with pioglitazone 30 mg once every day, continue Farxiga 10 mg once every day . 5. Mixed hyperlipidemia. Hold atorvastatin due to the interaction with daptomycin for now, monitor the patient at bedtime, keep LDL 55-70. 6. Chronic DVT and PEs. Continue patient on eliquis 5 mg twice daily. 7. Hypertension and hypertensive cardiovascular disease. Continue metoprolol 25 mg orally twice every day. Monitor the patient blood pressure very closely. 8. Gastroesophageal reflux disease and GI prophylaxis. Continue Pantoprazole 40 mg daily 9. Diabetic neuropathy. we will continue wit Gabapentin 400 mg po tid. 10. Generalized anxiety disorder, recurrent depression. Continue Cymbalta 60 mg po daily. 11. DVT prophylaxis. Continue Eliquis 5 mg po bid 12. GI prophylaxis. Continue patient on pantoprazole 40 mg once every day 13. Admit to inpatient. Estimated length of stay 2 midnights. 14. Full code. Past Medical History Past Medical History: Coronary Artery Disease (CAD), Cancer, CVA/TIA, Diabetes Mellitus, Deep Vein Thrombosis (DVT), GERD/Reflux, Memory Impairment, Osteoarthritis (OA), Pulmonary Embolus (PE), Vascular Disorder Additional Past Medical History / Comment(s): hospitalization end of Aug 2024 for abscess rt groin-now resolved-pt stated "Dr Hughes aware and followed up with Dr Tejeda aware & ok to proceed with surgery with Dr Hughes", Hx hospitalization Aug 2023- Diarrhea, cellulitis rt AKA (AKA 06-07-23)site and PICC line placement (Power PICC SOLO2 catheter ),hx SKIN CA to neck. 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, NEUROPATHY lt leg and foot, uses prosthesis and able to stand and walk with walker.Mutiple DVT-lt leg, stomach and lungs,mesentaric thrombosis x2 & PE, PAD, chronic pain syndrome, ddd lumbar region w/radiculopathy, HISTORY OF FALL 01/07/20 , pancreatitis, fatty liver, , nothing open, Pt states she's "forgetful", per Dr. Azar H+P pt c/o dysphonia pt confirms. chronic diarrhea. hx of low BP issues,has minimum mobility left arm-elbow goes out Last Myocardial Infarction Date:: 2010 History of Any Multi-Drug Resistant Organisms: MRSA Date of last positivie culture/infection: 08/09/23 MDRO Source:: Right Leg Past Surgical History: Section, Cholecystectomy, Heart Catheterization, Heart Catheterization With Stent, Orthopedic Surgery, Tonsillectomy, Tubal Ligation Additional Past Surgical History / Comment(s): Right Below Knee Amputation 04/2023, 11 Stents in mid thigh left leg, fistula left thigh, full mouth teeth extraction, TRAPEASE VENA CAVA FILTER mid thigh left leg,rt carpel tunnel , heart stents x4 rca and lad, tumor removal from uterus. Genital warts removed, INGRID. Skin cancer removed from neck, rt great toe amputated, colonoscopy, rt rotator, left shoulder replacement, cervial fusion, rt calf debridement, rt calf skin graft (May 2023) Past Anesthesia/Blood Transfusion Reactions: No Reported Reaction Additional Past Anesthesia/Blood Transfusion Reaction / Comment(s): no complications with prior blood tranfusions Date of Last Stent Placement:: Mar 2023 Past Psychological History: Anxiety, Depression Smoking Status: Former smoker Past Alcohol Use History: None Reported Past Drug Use History: None Reported - Past Family History Mother Family Medical History: Cancer, Congestive Heart Failure (CHF), Diabetes Mellitus, Myocardial Infarction ([place]) Additional Family Medical History / Comment(s): UTERINE CANCER Father Family Medical History: Coronary Artery Disease (CAD), Myocardial Infarction ([place]) Additional Family Medical History / Comment(s): Father at age 70. Sister(s) Family Medical History: Myocardial Infarction ([place]) Additional Family Medical History / Comment(s): Patient has one sister with myocardial infarction at age 55. Son(s) Family Medical History: Deep Vein Thrombosis (DVT), Pulmonary Embolus Additional Family Medical History / Comment(s): Patient has 2 sons and one has history of DVT and pulmonary embolism. Medications and Allergies Home Medications Medication Instructions Recorded Confirmed Type Ergocalciferol (Vitamin D2) 1,250 mcg PO GUERRERO@0800 04/01/23 10/05/24 History [Drisdol (50,000 Iu)] Nitroglycerin Sl Tabs [Nitrostat] 0.4 mg SL Q5M PRN 04/01/23 10/05/24 History Apixaban [Eliquis] 5 mg PO BID 05/20/23 10/05/24 History DULoxetine HCL [Cymbalta] 60 mg PO QAM 07/04/23 10/05/24 History INSULIN ASPART (NovoLOG) [NovoLOG See Protocol SQ ACHS 07/04/23 10/05/24 History (formulary)] Metoprolol Tartrate [Lopressor] 25 mg PO BID 07/04/23 10/05/24 History Magnesium Oxide [Mag-Ox] 500 mg PO DAILY 08/09/23 10/05/24 History Melatonin 3 mg PO HS@2100 PRN 08/09/23 10/05/24 History Spironolactone 25 mg PO DAILY 08/09/23 10/05/24 History Atorvastatin Calcium [Lipitor] 80 mg PO DAILY 09/16/23 10/05/24 History Gabapentin [Neurontin] 400 mg PO TID 10/22/23 10/05/24 History INSULIN ASPART (NovoLOG) [NovoLOG 12 unit SQ TID@0800,1200,1700 10/22/23 10/05/24 History (formulary)] Ipratropium-Albuterol Nebulize 3 ml INHALATION RT-Q6H PRN 10/22/23 10/05/24 History [Duoneb 0.5 mg-3 mg/3 ml Soln] Dapagliflozin Propanediol [Farxiga] 10 mg PO DAILY 02/27/24 10/05/24 History Insulin Glargine,Hum.rec.anlog 46 units SQ HS 02/27/24 10/05/24 History [Lantus Solostar Pen] Pantoprazole [Protonix] 40 mg PO QAM 02/27/24 10/05/24 History Aspirin EC [Ecotrin Low Dose] 81 mg PO DAILY 07/08/24 10/05/24 History Cyclobenzaprine HCl 10 mg PO HS PRN 09/09/24 10/05/24 History Pioglitazone [Actos] 30 mg PO DAILY 10/05/24 10/05/24 History oxyCODONE-APAP 7.5-325MG [Percocet 1 tab PO Q6HR PRN 10/05/24 10/05/24 History 7.5-325 mg] Allergies Allergy/AdvReac Type Severity Reaction Status Date / Time vancomycin Allergy Rash/Hives/and Verified 10/05/24 16:40 vomiting diarrhea/Swelling Physical Exam Vitals: Vital Signs Temp Pulse Resp BP Pulse Ox 10/05/24 16:58 99.4 F 80 16 125/74 94 L 10/05/24 15:10 98.9 F 73 16 107/68 97 10/05/24 11:31 99.2 F 69 16 129/66 97 Intake and Output 10/05/24 10/05/24 10/05/24 06:59 14:59 22:59 Other: Weight 85.275 kg Results CBC & Chem 7: 10/05/24 12:15 10/05/24 12:15 Labs: Abnormal Lab Results - Last 24 Hours (Table) 10/05/24 10/05/24 Range/Units 12:15 12:15 WBC 14.0 H (3.8-10.6) k/uL RBC 3.58 L (3.80-5.40) m/uL Hgb 8.7 L (11.4-16.0) gm/dL Hct 28.3 L (34.0-46.0) % MCV 79.0 L (80.0-100.0) fL MCH 24.2 L (25.0-35.0) pg MCHC 30.6 L (31.0-37.0) g/dL RDW 17.2 H (11.5-15.5) % Neutrophils # 12.0 H (1.3-7.7) k/uL Lymphocytes # 0.9 L (1.0-4.8) k/uL Sodium 131 L (137-145) mmol/L Potassium 2.7 L* (3.5-5.1) mmol/L Chloride 96 L (98-107) mmol/L Glucose 271 H (74-99) mg/dL Calcium 7.4 L (8.4-10.2) mg/dL AST 13 L (14-36) U/L Total Protein 5.0 L (6.3-8.2) g/dL Albumin 2.1 L (3.5-5.0) g/dL
[2024-10-05] MEDS ORDERED: MELATONIN 3 MG TABLET PO PRN (21:00)
[2024-10-05] MEDS: SODIUM CHLORIDE 0.9% 1,000 ML IV SCH (21:13)
[2024-10-05] MEDS: GABAPENTIN 400 MG CAP PO SCH (21:25)
[2024-10-05] MEDS: APIXABAN 5 MG TAB PO SCH (21:25)
[2024-10-05] MEDS: METOPROLOL TARTRATE 25 MG TAB PO SCH (21:25)
--- NOTE | 2024-10-05 21:59 | P.CONS ---
History of Present Illness - Reason for Consult Consult date: 10/05/24 Incision site infection Requesting physician: Marianne Bustamante - Chief Complaint Increasing pain and drainage to the groin area x 4 days - History of Present Illness Patient is a 64-year-old female with a past medical history significant for Coronary Artery Disease (CAD), Cancer, CVA/TIA, Diabetes Mellitus, Deep Vein Thrombosis (DVT), GERD/Reflux, Memory Impairment, Osteoarthritis (OA), Pulmonary Embolus (PE), Vascular Disorder who recently underwent bilateral common femoral artery thromboendarterectomy and femorofemoral bypass on 09/14/2024 patient was subsequent discharged home in stable condition now presenting back to the hospital concerning for pain to b ilateral groin incision area and more drainage from the left groin incision with associated fever and chills patient has been described the pain to be sharp moderate distress without radiation patient symptoms started 4 days prior to presentation the hospital on arrival to the ER the patient did have low-grade fever of 99.2 patient was not tachycardic hypotensive or hypoxic patient did have a white count of 14,000 creatinine 0.83 liver enzymes are normal influenza RSV COVID testing has been negative local culture has been obtained patient was given a dose of cefepime in the ER admitted to the hospital infectious disease was consulted for further management of antibiotic therapy Review of Systems Positive point and negatives has been mentioned in the HPI, complete review of systems was performed and all other systems are negative Past Medical History Past Medical History: Coronary Artery Disease (CAD), Cancer, CVA/TIA, Diabetes Mellitus, Deep Vein Thrombosis (DVT), GERD/Reflux, Memory Impairment, Osteoarthritis (OA), Pulmonary Embolus (PE), Vascular Disorder Additional Past Medical History / Comment(s): hospitalization end of Aug 2024 for abscess rt groin-now resolved-pt stated "Dr Hughes aware and followed up with Dr Tejeda aware & ok to proceed with surgery with Dr Hughes", Hx ho spitalization Aug 2023- Diarrhea, cellulitis rt AKA (AKA 06-07-23)site and PICC line placement (Power PICC SOLO2 catheter ),hx SKIN CA to neck. 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 Azar H+P pt c/o dysphonia pt confirms. chronic diarrhea. hx of low BP issues,has minimum mobility left arm-elbow goes out Last Myocardial Infarction Date:: 2010 History of Any Multi-Drug Resistant Organisms: MRSA Year Discovered:: 08/09/23 MDRO Source:: Right Leg Past Surgical History: Section, Cholecystectomy, Heart Catheterization, Heart Catheterization With Stent, Orthopedic Surgery, Tonsillectomy, Tubal Ligation Additional Past Surgical History / Comment(s): Right Below Knee Amputation 04/2023, 11 Stents in mid thigh left leg, fistula left thigh, full mouth teeth extraction, TRAPEASE VENA CAVA FILTER mid thigh left leg,rt carpel tunnel , heart stents x4 rca and lad, tumor removal from uterus. Genital warts removed, INGRID. Skin cancer removed from neck, rt great toe amputated, colonoscopy, rt rotator, left shoulder replacement, cervial fusion, rt calf debridement, rt calf skin graft (May 2023) Past Anesthesia/Blood Transfusion Reactions: No Reported Reaction Additional Past Anesthesia/Blood Transfusion Reaction / Comm: no complications with prior blood tranfusions Date of Last Stent Placement:: Mar 2023 Past Psychological History: Anxiety, Depression Smoking Status: Former smoker Past Alcohol Use History: None Reported Past Drug Use History: None Reported - Past Family History Mother Family Medical History: Cancer, Congestive Heart Failure (CHF), Diabetes Mellitus, Myocardial Infarction (DC) Additional Family Medical History / Comment(s): UTERINE CANCER Father Family Medical History: Coronary Artery Disease (CAD), Myocardial Infarction (DC) Additional Family Medical History / Comment(s): Father at age 70. Sister(s) Family Medical History: Myocardial Infarction (DC) Additional Family Medical History / Comment(s): Patient has one sister with myocardial infarction at age 55. Son(s) Family Medical History: Deep Vein Thrombosis (DVT), Pulmonary Embolus Additional Family Medical History / Comment(s): Patient has 2 sons and one has history of DVT and pulmonary embolism. Medications and Allergies Home Medications Medication Instructions Recorded Confirmed Type Ergocalciferol (Vitamin D2) 1,250 mcg PO GUERRERO@0800 04/01/23 10/05/24 History [Drisdol (50,000 Iu)] Nitroglycerin Sl Tabs [Nitrostat] 0.4 mg SL Q5M PRN 04/01/23 10/05/24 History Apixaban [Eliquis] 5 mg PO BID 05/20/23 10/05/24 History DULoxetine HCL [Cymbalta] 60 mg PO QAM 07/04/23 10/05/24 History INSULIN ASPART (NovoLOG) [NovoLOG See Protocol SQ ACHS 07/04/23 10/05/24 History (formulary)] Metoprolol Tartrate [Lopressor] 25 mg PO BID 07/04/23 10/05/24 History Magnesium Oxide [Mag-Ox] 500 mg PO DAILY 08/09/23 10/05/24 History Melatonin 3 mg PO HS@2100 PRN 08/09/23 10/05/24 History Spironolactone 25 mg PO DAILY 08/09/23 10/05/24 History Atorvastatin Calcium [Lipitor] 80 mg PO DAILY 09/16/23 10/05/24 History Gabapentin [Neurontin] 400 mg PO TID 10/22/23 10/05/24 History INSULIN ASPART (NovoLOG) [NovoLOG 12 unit SQ TID@0800,1200,1700 10/22/23 10/05/24 History (formulary)] Ipratropium-Albuterol Nebulize 3 ml INHALATION RT-Q6H PRN 10/22/23 10/05/24 History [Duoneb 0.5 mg-3 mg/3 ml Soln] Dapagliflozin Propanediol [Farxiga] 10 mg PO DAILY 02/27/24 10/05/24 History Insulin Glargine,Hum.rec.anlog 46 units SQ HS 02/27/24 10/05/24 History [Lantus Solostar Pen] Pantoprazole [Protonix] 40 mg PO QAM 02/27/24 10/05/24 History Aspirin EC [Ecotrin Low Dose] 81 mg PO DAILY 07/08/24 10/05/24 History Cyclobenzaprine HCl 10 mg PO HS PRN 09/09/24 10/05/24 History Pioglitazone [Actos] 30 mg PO DAILY 10/05/24 10/05/24 History oxyCODONE-APAP 7.5-325MG [Percocet 1 tab PO Q6HR PRN 10/05/24 10/05/24 History 7.5-325 mg] Allergies Allergy/AdvReac Type Severity Reaction Status Date / Time vancomycin Allergy Rash/Hives/and Verified 10/05/24 16:40 vomiting diarrhea/Swelling Physical Exam Vitals: Vital Signs Temp Pulse Resp BP Pulse Ox 10/05/24 11:31 99.2 F 69 16 129/66 97 Intake and Output 10/04/24 10/05/24 10/05/24 22:59 06:59 14:59 Other: Weight 85.275 kg GENERAL DESCRIPTION: Middle-age female lying in bed, no distress. No tachypnea or accessory muscle of respiration use. HEENT: Shows Pallor , no scleral icterus. Oral mucous membrane is dry. No pharyngeal erythema or thrush NECK: Trachea central, no thyromegaly. LUNGS: Unlabored breathing. Clear to auscultation anteriorly. No wheeze or crackle. HEART: S1, S2, regular rate and rhythm. No loud murmur ABDOMEN: Soft, no tenderness , guarding or rigidity, no organomegaly EXTREMITIES: Left groin surgical incision with opening and mid incision with yellowish drainage, surrounding erythema. Right groin incision well- approximated, tender to palpation SKIN: No rash, no masses palpable. NEUROLOGICAL: The patient is awake, alert, oriented x3, mood and affect normal. Results CBC & Chem 7: 10/05/24 12:15 10/05/24 20:23 Labs: Abnormal Lab Results - Last 24 Hours (Table) 10/05/24 10/05/24 Range/Units 12:15 12:15 WBC 14.0 H (3.8-10.6) k/uL RBC 3.58 L (3.80-5.40) m/uL Hgb 8.7 L (11.4-16.0) gm/dL Hct 28.3 L (34.0-46.0) % MCV 79.0 L (80.0-100.0) fL MCH 24.2 L (25.0-35.0) pg MCHC 30.6 L (31.0-37.0) g/dL RDW 17.2 H (11.5-15.5) % Neutrophils # 12.0 H (1.3-7.7) k/uL Lymphocytes # 0.9 L (1.0-4.8) k/uL Sodium 131 L (137-145) mmol/L Potassium 2.7 L* (3.5-5.1) mmol/L Chloride 96 L (98-107) mmol/L Glucose 271 H (74-99) mg/dL Calcium 7.4 L (8.4-10.2) mg/dL AST 13 L (14-36) U/L Total Protein 5.0 L (6.3-8.2) g/dL Albumin 2.1 L (3.5-5.0) g/dL Assessment and Plan (1) Allergy to vancomycin Current Visit: Yes Status: Acute Code(s): Z88.1 - ALLERGY STATUS TO OTHER ANTIBIOTIC AGENTS SNOMED Code(s): 769747618 (2) Wound infection after surgery Current Visit: No Status: Acute Code(s): T81.49XA - INFECTION FOLLOWING A PROCEDURE, OTHER SURGICAL SITE, INIT SNOMED Code(s): 04842149 (3) Leukocytosis Current Visit: No Status: Acute Code(s): D72.829 - ELEVATED WHITE BLOOD CELL COUNT, UNSPECIFIED SNOMED Code(s): 582307590 Plan: 1-patient presented to hospital with increasing pain to bilateral groin area and drainage from the left groin in this patient who recently did have bilateral common femoral artery thromboendarterectomy and femorofemoral bypass on 09/14/2024 now presenting with increasing pain swelling erythema and drainage concerning for surgical site of infection we will need to cover for resistant gram-positive as well as gram-negative pathogen. 2-patient with vancomycin allergy that will limit number of antibiotics safe to use. 3-patient will be started on daptomycin along with cefepime 2 g every 8 hours while waiting for the culture to finalize We will follow on clinical condition and cultures to further adjust medication if needed Thank you for this consultation we will follow the patient along with you Dictation was produced using [employer] dictation software. please excuse any grammatical, word or spelling errors. Time with Patient: Greater than 30
[2024-10-05] MEDS: CEFEPIME 2 GM in SODIUM CHLORIDE 0.9% 100 ML IVPB SCH (23:58)
[2024-10-05] MEDS: INSULIN GLARGINE (LANTUS) 100 UNIT/ML SYR SQ SCH (23:58)
[2024-10-06 07:54] LABS: Glucose,Whole Blood 300 mg/dL (70-110)
[2024-10-06] MEDS ORDERED: ATORVASTATIN 80 MG TAB PO SCH (09:00)
[2024-10-06] MEDS: MAGNESIUM OXIDE 400 MG TAB PO SCH (09:35)
[2024-10-06] MEDS: DULoxetine HCL 60 MG CAPSULE.DR PO SCH (09:36)
[2024-10-06] MEDS: INSULIN LISPRO (HumaLOG) 100 UNIT/ML 10 mL VL SQ SCH ×2 (09:36→12:54)
[2024-10-06] MEDS: DAPAGLIFLOZIN PROPANEDIOL 10 MG TABLET PO SCH (09:36)
[2024-10-06] MEDS: PANTOPRAZOLE 40 MG TABLET PO SCH (09:36)
[2024-10-06] MEDS: SPIRONOLACTONE 25 MG TAB PO SCH (09:36)
[2024-10-06] MEDS: PIOGLITAZONE 30 MG TAB PO SCH (09:36)
[2024-10-06] MEDS: ASPIRIN 81 MG PO SCH (11:02)
--- NOTE | 2024-10-06 11:02 | P.PN ---
Subjective Progress Note Date: 10/06/24 Principal diagnosis: Surgical wound dehiscence, infection Patient is seen and examined today as a follow-up. She is now in a room. Yesterday when initially evaluated she was in the emergency department in the hallway. She remains afebrile. Wound culture showing gram-positive bacilli. No current labs from today. She states left foot feels good, warm no pain. Has discomfort in the left groin as well as the right groin where her previous surgical site is. She is currently being followed by infectious disease and is on IV antibiotics. Objective - Vital Signs Vital signs: Vital Signs Temp 98.8 F 10/06/24 07:54 Pulse 80 10/06/24 07:54 Resp 18 10/06/24 07:54 BP 117/69 10/06/24 07:54 Pulse Ox 92 L 10/06/24 07:54 FiO2 Intake & Output 10/05/24 10/06/24 10/06/24 18:59 06:59 18:59 Weight 85.275 kg - Exam General appearance: The patient is alert, oriented, appears in no acute distress. HET: Head is normocephalic and atraumatic. Pupils are equal and reactive. Neck: Supple. Lungs: Equal expansion, normal respiratory effort. Abdomen: Soft, lower abdominal tenderness over bypass, nondistended. Extremities: Right groin surgical incision well healed, tender to palpation. Left groin incision with dehiscence more central, with copious amounts of yellowish-brown drainage. Surrounding erythema. Neurological: No focal deficits. Alert and oriented. - Labs CBC & Chem 7: 10/05/24 12:15 10/05/24 20:23 Labs: Abnormal Lab Results - Last 24 Hours (Table) 10/05/24 10/05/24 10/06/24 Range/Units 12:15 12:15 07:51 WBC 14.0 H (3.8-10.6) k/uL RBC 3.58 L (3.80-5.40) m/uL Hgb 8.7 L (11.4-16.0) gm/dL Hct 28.3 L (34.0-46.0) % MCV 79.0 L (80.0-100.0) fL MCH 24.2 L (25.0-35.0) pg MCHC 30.6 L (31.0-37.0) g/dL RDW 17.2 H (11.5-15.5) % Neutrophils # 12.0 H (1.3-7.7) k/uL Lymphocytes # 0.9 L (1.0-4.8) k/uL Sodium 131 L (137-145) mmol/L Potassium 2.7 L* (3.5-5.1) mmol/L Chloride 96 L (98-107) mmol/L Glucose 271 H (74-99) mg/dL POC Glucose (mg/dL) 300 H (70-110) mg/dL Calcium 7.4 L (8.4-10.2) mg/dL AST 13 L (14-36) U/L Total Protein 5.0 L (6.3-8.2) g/dL Albumin 2.1 L (3.5-5.0) g/dL Microbiology - Last 24 Hours (Table) 10/05/24 14:25 Gram Stain - Preliminary Hip - Left Assessment and Plan Assessment: 1. Left groin surgical incision dehiscence with concern for infection 2. Recent bilateral common femoral artery thromboendarterectomy and femorofemoral bypass 3. Hypokalemia 4. Peripheral arterial disease 5. History of right aefyj-wrt-zcal amputation 6. Obesity 7. Diabetes mellitus 8. History of DVT and pulmonary embolism Plan: 1. Hold Eliquis 2. Wound cultures collected, currently pending 3. Appreciate recommendations from infectious disease 4. Left groin incision clean with Dakin solution, and apply wet-to-dry dressing 5. Plan for left groin washout possible wound VAC placement tomorrow 6. Pain medication as needed 7. May have consistent carbohydrate diet, n.p.o. after midnight 8. Rest of medical management per primary medical team Thank you for this consultation, we will continue to follow. The impression and plan of care has been dictated as directed. Dr. Rutledge I performed a history and examination of this patient, discussed the same with the dictator. I agree with the dictator's note ,documented as a scribe. Any additional findings or plans will be noted.
[2024-10-06 12:30] LABS: Glucose,Whole Blood 186 mg/dL (70-110)
--- NOTE | 2024-10-06 14:57 | P.PN ---
Subjective Progress Note Date: 10/06/24 Principal diagnosis: Reason for follow-up is left groin infected wound Patient is a 64-year-old female with a past medical history significant for Coronary Artery Disease (CAD), Cancer, CVA/TIA, Diabetes Mellitus, Deep Vein Thrombosis (DVT), GERD/Reflux, Memory Impairment, Osteoarthritis (OA), Pulmonary Embolus (PE), Vascular Disorder who recently underwent bilateral common femoral artery thromboendarterectomy and femorofemoral bypass on 09/14/2024 presented to hospital with bilateral groin pain and draining wound to the left groin area has been diagnosed with surgical site infection prompted this consultation. On today's evaluation that is 10/06/2024, Patient is afebrile this morning patient denies having any chest pain shortness of breath or cough, the patient is currently on room air, patient denies any abdominal pain no diarrhea no nausea no vomiting no pain to bilateral groin area partially to the right groin. Patient did not have lab draw today cultures are currently pending Objective - Vital Signs Vital signs: Vital Signs Temp 98.3 F 10/06/24 13:22 Pulse 74 10/06/24 13:22 Resp 16 10/06/24 13:22 BP 114/71 10/06/24 13:22 Pulse Ox 98 10/06/24 13:22 FiO2 Intake & Output 10/05/24 10/06/24 10/06/24 18:59 06:59 18:59 Intake Total 540 Balance 540 Weight 85.275 kg 85.275 kg Intake: Oral 540 - Exam GENERAL DESCRIPTION: Middle-age female e lying in bed in no distress RESPIRATORY SYSTEM: Unlabored breathing , decreased breath sounds at bases HEART: S1 S2 regular rate and rhythm , ABDOMEN: Soft , no tenderness EXTREMITIES: Left groin did have a draining wound with some purulent drainage - Labs CBC & Chem 7: 10/05/24 12:15 10/05/24 20:23 Labs: Abnormal Lab Results - Last 24 Hours (Table) 10/06/24 10/06/24 Range/Units 07:51 12:20 POC Glucose (mg/dL) 300 H 186 H (70-110) mg/dL Microbiology - Last 24 Hours (Table) 10/05/24 14:25 Gram Stain - Preliminary Hip - Left Wound Culture - Preliminary Assessment and Plan (1) Allergy to vancomycin Current Visit: Yes Status: Acute Code(s): Z88.1 - ALLERGY STATUS TO OTHER ANTIBIOTIC AGENTS SNOMED Code(s): 755277352 (2) Wound infection after surgery Current Visit: No Status: Acute Code(s): T81.49XA - INFECTION FOLLOWING A PROCEDURE, OTHER SURGICAL SITE, INIT SNOMED Code(s): 04370720 (3) Leukocytosis Current Visit: No Status: Acute Code(s): D72.829 - ELEVATED WHITE BLOOD CELL COUNT, UNSPECIFIED SNOMED Code(s): 270763042 Plan: 1-patient presented to hospital with increasing pain to bilateral groin area and drainage from the left groin in this patient who recently did have bilateral common femoral artery thromboendarterectomy and femorofemoral bypass on 09/14/2024 now presenting with increasing pain swelling erythema and drainage concerning for surgical site of infection we will need to cover for resistant gram-positive as well as gram-negative pathogen. 2-patient with vancomycin allergy that will limit number of antibiotics safe to use. 3-patient scheduled for left groin washout and possible wound VAC placement by vascular surgery tomorrow 4for now we will continue patient on cefepime and daptomycin while waiting for the culture to finalize Dictation was produced using [employer] dictation software. please excuse any grammatical, word or spelling errors.
[2024-10-06 16:42] LABS: ALT <5 U/L (8-44); AST 12 U/L (13-35); Albumin 2.4 g/dL (3.8-4.9); Albumin/Globulin Ratio 0.71 Ratio (1.60-3.17); Alkaline Phosphatase 111 U/L (41-126); Blood Urea Nitrogen 10.6 mg/dL (9.0-27.0); Calcium 8.2 mg/dL (8.7-10.3); Carbon Dioxide 28.1 mmol/L (21.6-31.8); Chloride 98 mmol/L (96-109); Globulin 3.4 g/dL (1.6-3.3); Glucose 302 mg/dL (70-110); Magnesium 1.4 mg/dL (1.5-2.4); Potassium 4.2 mmol/L (3.5-5.5); Sodium 137 mmol/L (135-145); Total Bilirubin 0.4 mg/dL (0.3-1.2); Total Protein 5.8 g/dL (6.2-8.2)
[2024-10-06 16:45] LABS: Basophils # (A) 0.07 X 10*3/uL (0.00-0.10); Basophils % (A) 0.6 %; Eosinophils # (A) 0.78 X 10*3/uL (0.04-0.35); Eosinophils % (A) 6.5 %; HCT 32.7 % (37.2-46.3); Lymphocytes # (A) 0.56 X 10*3/uL (0.90-5.00); Lymphocytes % (A) 4.7 %; MCHC 27.5 g/dL (32.0-37.0); MCV 83.4 FL (80.0-97.0); Mean Platelet Volume 11.8 FL (9.5-12.2); Monocytes # (A) 0.78 X 10*3/uL (0.20-1.00); Monocytes % (A) 6.5 %; NRBC Per 100 WBC 0 X 10*3/uL (0.00-0.01); Neutrophils # (A) 9.66 X 10*3/uL (1.80-7.70); Neutrophils % (A) 80.7 %; Platelet Count 290 X 10*3/uL (140-440); RBC 3.92 X 10*6/uL (4.10-5.20); RDW 17.9 % (11.5-14.5); WBC 11.97 X 10*3/uL (4.50-10.00)
[2024-10-06 17:22] LABS: Erythrocyte Sedimentation Rate 50 mm/Hr (0-30)
[2024-10-06 17:52] LABS: Glucose,Whole Blood 104 mg/dL (70-110)
[2024-10-06 20:33] LABS: Glucose,Whole Blood 183 mg/dL (70-110)
[2024-10-07] MEDS: HYDROcodone/APAP 5-325MG 1 EACH TAB PO PRN (01:55)
[2024-10-07 07:13] LABS: Glucose,Whole Blood 184 mg/dL (70-110)
[2024-10-07 12:04] LABS: Glucose,Whole Blood 180 mg/dL (70-110)
--- NOTE | 2024-10-07 12:28 | P.PN ---
Subjective Progress Note Date: 10/07/24 Principal diagnosis: Reason for follow-up is left groin infected wound Patient is a 64-year-old female with a past medical history significant for Coronary Artery Disease (CAD), Cancer, CVA/TIA, Diabetes Mellitus, Deep Vein Thrombosis (DVT), GERD/Reflux, Memory Impairment, Osteoarthritis (OA), Pulmonary Embolus (PE), Vascular Disorder who recently underwent bilateral common femoral artery thromboendarterectomy and femorofemoral bypass on 09/14/2024 presented to hospital with bilateral groin pain and draining wound to the left groin area has been diagnosed with surgical site infection prompted this consultation. On today's evaluation that is 10/07/2024,the patient denies any fever or any chills, patient is breathing comfortably on room air, the patient denies chest pain shortness of breath and no significant cough, patient denies abdominal pain, no nausea vomiting or diarrhea Pain to the groin and has slightly decreased in intensity. No new lab has been repeated today blood cultures came back positive with MRSA and left groin culture also growing MRSA Objective - Vital Signs Vital signs: Vital Signs Temp 98.3 F 10/07/24 07:06 Pulse 83 10/07/24 07:06 Resp 18 10/07/24 07:06 BP 111/67 10/07/24 07:06 Pulse Ox 92 L 10/07/24 07:06 FiO2 Intake & Output 10/06/24 10/07/24 10/07/24 18:59 06:59 18:59 Intake Total 1545 Output Total 1100 1200 800 Balance 445 -1200 -800 Weight 85.275 kg Intake: Intake, IV Titration 225 Amount Cefepime 2 gm In Sodium 125 Chloride 0.9% 100 ml @ 25 mls/hr IVPB Q8HR [facility] Rx# :[id number] DAPTOmycin 350 mg In 100 Sodium Chloride 0.9% 50 ml @ 100 mls/hr IVPB Q24HR [facility] Rx#:[id number] Oral 1320 Output: Urine 1100 1200 800 Other: Voiding Method External Catheter External Catheter - Exam GENERAL DESCRIPTION: Middle-age female e lying in bed in no distress RESPIRATORY SYSTEM: Unlabored breathing , decreased breath sounds at bases HEART: S1 S2 regular rate and rhythm , ABDOMEN: Soft , no tenderness EXTREMITIES: Left groin did have a draining wound with some purulent drainage - Labs CBC & Chem 7: 10/06/24 08:46 10/06/24 08:46 Labs: Abnormal Lab Results - Last 24 Hours (Table) 10/06/24 10/06/24 10/06/24 Range/Units 08:46 08:46 12:20 WBC 11.97 H (4.50-10.00) X 10*3/uL RBC 3.92 L (4.10-5.20) X 10*6/uL Hgb 9.0 L (12.0-15.0) g/dL Hct 32.7 L (37.2-46.3) % MCH 23.0 L (27.0-32.0) pg MCHC 27.5 L (32.0-37.0) g/dL RDW 17.9 H (11.5-14.5) % Immature Gran # 0.12 H (0.00-0.04) X 10*3/uL Neutrophils # 9.66 H (1.80-7.70) X 10*3/uL Lymphocytes # 0.56 L (0.90-5.00) X 10*3/uL Eosinophils # 0.78 H (0.04-0.35) X 10*3/uL ESR 50 H (0-30) mm/Hr BUN/Creatinine Ratio 10.60 L (12.00-20.00) Ratio Glucose 302 H (70-110) mg/dL POC Glucose (mg/dL) 186 H (70-110) mg/dL Calcium 8.2 L (8.7-10.3) mg/dL Magnesium 1.4 L (1.5-2.4) mg/dL AST 12 L (13-35) U/L ALT <5 L (8-44) U/L Total Protein 5.8 L (6.2-8.2) g/dL Albumin 2.4 L (3.8-4.9) g/dL Globulin 3.4 H (1.6-3.3) g/dL Albumin/Globulin Ratio 0.71 L (1.60-3.17) Ratio 10/06/24 10/07/24 Range/Units 20:32 07:12 WBC (4.50-10.00) X 10*3/uL RBC (4.10-5.20) X 10*6/uL Hgb (12.0-15.0) g/dL Hct (37.2-46.3) % MCH (27.0-32.0) pg MCHC (32.0-37.0) g/dL RDW (11.5-14.5) % Immature Gran # (0.00-0.04) X 10*3/uL Neutrophils # (1.80-7.70) X 10*3/uL Lymphocytes # (0.90-5.00) X 10*3/uL Eosinophils # (0.04-0.35) X 10*3/uL ESR (0-30) mm/Hr BUN/Creatinine Ratio (12.00-20.00) Ratio Glucose (70-110) mg/dL POC Glucose (mg/dL) 183 H 184 H (70-110) mg/dL Calcium (8.7-10.3) mg/dL Magnesium (1.5-2.4) mg/dL AST (13-35) U/L ALT (8-44) U/L Total Protein (6.2-8.2) g/dL Albumin (3.8-4.9) g/dL Globulin (1.6-3.3) g/dL Albumin/Globulin Ratio (1.60-3.17) Ratio Microbiology - Last 24 Hours (Table) 10/05/24 14:25 Gram Stain - Preliminary Hip - Left Wound Culture - Preliminary Presumptive MRSA 10/05/24 14:14 Blood Culture Gram Stain - Preliminary Blood Blood Culture - Preliminary Molecular ID 10/05/24 14:15 Blood Culture - Preliminary Blood Assessment and Plan (1) Allergy to vancomycin Current Visit: Yes Status: Acute Code(s): Z88.1 - ALLERGY STATUS TO OTHER ANTIBIOTIC AGENTS SNOMED Code(s): 093569960 (2) Wound infection after surgery Current Visit: No Status: Acute Code(s): T81.49XA - INFECTION FOLLOWING A PROCEDURE, OTHER SURGICAL SITE, INIT SNOMED Code(s): 11529297 (3) Leukocytosis Current Visit: No Status: Acute Code(s): D72.829 - ELEVATED WHITE BLOOD CELL COUNT, UNSPECIFIED SNOMED Code(s): 272426543 Plan: 1-patient presented to hospital with increasing pain to bilateral groin area and drainage from the left groin in this patient who recently did have bilateral common femoral artery thromboendarterectomy and femorofemoral bypass on 09/14/2024 now presenting with increasing pain swelling erythema and drainage concerning for surgical site of infection we will need to cover for resistant g brant-positive as well as gram-negative pathogen. 2-patient with vancomycin allergy that will limit number of antibiotics safe to use. 3-patient scheduled for left groin washout and possible wound VAC placement by vascular surgery this morning 4blood culture positive for MRSA source likely left groin infected wound which is also growing the same pathogen blood culture repeated to document clearance continue with the daptomycin discontinue cefepime. Question concern answered Dictation was produced using [employer] dictation software. please excuse any grammatical, word or spelling errors. Time with Patient: Less than 30
[2024-10-07] MEDS: IV FLUID CONTINUATION 900 ML IV ONE (12:41)
[2024-10-07] MEDS: FAMOTIDINE 20 MG/2 ML VIAL IV STA (12:58)
[2024-10-07] MEDS: DEXAMETHASONE SOD PHOSPHATE 4 MG/ML 1 ML VIAL IVP STA (12:58)
[2024-10-07] MEDS: ONDANSETRON 4 MG/2 ML VIAL IVP PRN (12:59)
[2024-10-07] MEDS: IPRATROPIUM-ALBUTEROL 3 ML NEB INHALATION PRN (13:05)
[2024-10-07] MEDS ORDERED: PHENYLEPHRINE-0.9% NACL SYG 1,000 MCG/10 ML SYRINGE ONE (13:37)
[2024-10-07] MEDS ORDERED: MIDAZOLAM 2 MG/2 ML VIAL ONE (13:37)
[2024-10-07] MEDS ORDERED: PROPOFOL 10 MG/ML 20 ML VIAL IV ONE (13:37)
[2024-10-07] MEDS ORDERED: LIDOCAINE 1% INJ 10MG/ML (20 ML MDV) ONE (13:37)
[2024-10-07] MEDS ORDERED: fentaNYL (PF) 50 MCG/ML 2 ML AMP ONE (13:37)
[2024-10-07] MEDS: ceFAZolin 1,000 MG in SODIUM CHLORIDE 0.9% 1,000 ML IRRIGATION ONE (14:07)
--- NOTE | 2024-10-07 14:26 | P.PN ---
Subjective Progress Note Date: 10/06/24 HISTORY OF PRESENT ILLNESS This is a 64-year-old female patient of mine with history of CAD with multiple cardiac stents in mid RCA, mid LAD, obtuse marginal branch and followed by Dr. Bill closely, peripheral artery disease with previous stenting done as well has amputation of the right great toe secondary to osteomyelitis, CVA with no residual deficits, hypertension, COPD, diabetes mellitus type 2, previous multiple DVT and PE requiring chronic anticoagulation on eliquis, history of GI bleed secondary to antral gastritis, esophagitis, vitamin D deficiency, history of left humerus fracture, history of PAD post right AKA and CAD post PCI of the RCA with intermediate disease of the LAD, patient underwent bilateral femoral thromboendarterectomy with femorofemoral bypass that was done successfully by Dr. Pardo on 09/14/2024 and the patient was discharged home was doing fine, tell last Saturday when she developed to have a significant diarrheal illness, associated with generalized fatigue and weakness not able to do anything, was not able to keep anything down, was supposed to go to see Dr. Pardo on for follow-up, but she could not make it because she was extremely weak and her son was not available to take her patient apparently stayed at home until her son came and and she ended up calling 911 for the patient to be brought into the emergency department because of generalized weakness not able to ambulate, and transfer herself, she ended up coming to the emergency department because of significant erythema and drainage from the left groin area where the surgical incision was done, there was concerns about infection in that area, patient was started on cefepime 2 g piggyback every 8 hours, daptomycin 350 mg IV piggyback every 24 hours, blood culture, x 2, wound culture aerobic and anaerobic, vascular surgery consultation as well as infectious disease consultation was obtained, patient also was found to have a severe hypokalemia, she will be replaced per protocol, she will be given a total of 120 mill equivalent of potassium today repeat CMP tomorrow morning. I will repeat her potassium this evening. 3/4: Patient is laying down in bed in minimal distress, she complains of increased pain in the left groin area, she continues to have a lot of drainage from the wound, she was seen earlier by vascular surgery who recommended to go for a washout of the wound, possible wound VAC placement later on today, patient blood glucose over was quite elevated, she did not receive her long-acting yesterday, I placed the patient on her sliding scale insulin plus her regular dose of insulin, will follow-up with the patient very closely, repeat laboratory evaluation in the next 24 hours. REVIEW OF SYSTEMS Constitutional: No fever, No chills, no night sweats. Reports no weight loss. Reports weakness, Reports fatigue no lethargy. NO daytime sleepiness. HEENT: No headache. No dizziness. No nasal drainage or congestion. No epistaxis. No sore throat. Lungs: No shortness of breath, no cough, no sputum production. No wheezing. Cardiovascular: No chest pain, no lower extremity edema. No palpitations. No paroxysmal nocturnal dyspnea. No orthopnea. No lightheadedness or dizziness. No syncopal episodes. Abdominal: Reports no abdominal pain. Reports nausea, no vomiting. no diarrhea. No constipation. No bloody or tarry stools. good appetite. Genitourinary: No dysuria, increased frequency, urgency. No urinary retention. Musculoskeletal: No myalgias. positive for muscle weakness, reports balance issues. Integumentary: Right AKA , left lower extremity is intact, pulses by Doppler, bilateral groin area with dressing. Neurologic: No aphasia. No facial droop. No change in mentation. No head injury. No headache. No paralysis. No paresthesia. Psychiatric: Reports depression. Reports anxiety. No mood swings. Endocrine: abnormal blood sugars. positive for weight change. No excessive sweating or thirst. No cold intolerance. PHYSICAL EXAMINATION Gen: This is a 64-year-old female. She is resting in bed i no acute distress HEENT: Head is atraumatic, normocephalic. Pupils equal, round. Sclerae is anicteric. Mucous members of the mouth are somewhat dry. NECK: Supple. No JVD. No lymphadenopathy. No thyromegaly. LUNGS: Clear to auscultation. No wheezes or rhonchi. No intercostal retractions. 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 ABDOMEN: Soft, non tender non distended and no rebound or guarding positive bowel sounds EXTREMITIES: Right above-knee amputation , left lower extremity is intact. Left groin area with an infected wound. And minimal erythema and drainage. NEUROLOGICAL: Patient is awake, alert and oriented x3. Cranial nerves 2 through 12 are grossly intact muscle power were 4 out of 5 in upper extremity is, and 3 out of 5 in the left lower extremity. She does have a right above-knee amputation. ASSESSMENT AND PLAN 1. Infected incision site of the left bilateral femoral endarterectomy with femoral-femoral bypass surgery that was done by Dr. Pardo 09/14/2024. Start the patient on IV fluid resuscitation in the form of normal saline 75 cc an hour, wound culture including aerobic and anaerobic culture, blood culture, start the patient on cefepime 2 g piggyback every 8 hours, daptomycin 350 mg IV piggyback every 24 hours infectious disease consultation, vascular surgery consultation appreciated, continue with Dakin's solution, continue to follow-up with the patient very closely. Continue current pain management. Patient is scheduled to go for a washout of the infected wound. 2. Severe hypokalemia with a potassium of 2.7. Status post replacement repeat the patient CMP and magnesium tomorrow morning, I will recheck her potassium this evening. 3. Coronary artery disease with recent stent of the RCA due to recent in-stent restenosis. Patient has had previous multiple cardiac stents to the RCA and mid LAD, obtuse marginal branch. Continue patient on aspirin 81 mg daily, Lopressor 25 mg twice daily, Atorvastatin 80 mg po daily . 4. Diabetes mellitus type 2 uncontrolled with hypoglycemia , we will continue Lantus 46 units units at bedtime, along with a sliding scale insulin, continue with Humalog 12 units before each meal along with pioglitazone 30 mg once every day, continue Farxiga 10 mg once every day . 5. Mixed hyperlipidemia. Hold atorvastatin due to the interaction with daptomycin for now, monitor the patient at bedtime, keep LDL 55-70. 6. Chronic DVT and PEs. Continue patient on eliquis 5 mg twice daily. 7. Hypertension and hypertensive cardiovascular disease. Continue metoprolol 25 mg orally twice every day. Monitor the patient blood pressure very closely. 8. Gastroesophageal reflux disease and GI prophylaxis. Continue Pantoprazole 40 mg daily 9. Diabetic neuropathy. we will continue wit Gabapentin 400 mg po tid. 10. Generalized anxiety disorder, recurrent depression. Continue Cymbalta 60 mg po daily. 11. DVT prophylaxis. Continue Eliquis 5 mg po bid 12. GI prophylaxis. Continue patient on pantoprazole 40 mg once every day 13. Hypomagnesemia will replace. 14. Physical therapy evaluation 15. cylinder worker consultation for discharge planning. Objective - Vital Signs Vital signs: Vital Signs Temp 98.3 F 10/06/24 13:22 Pulse 74 10/06/24 13:22 Resp 16 10/06/24 13:22 BP 114/71 10/06/24 13:22 Pulse Ox 98 10/06/24 13:22 FiO2 Intake & Output 10/05/24 10/06/24 10/06/24 18:59 06:59 18:59 Intake Total 540 Balance 540 Weight 85.275 kg 85.275 kg Intake: Oral 540 - Labs CBC & Chem 7: 10/06/24 08:46 10/06/24 08:46 Labs: Abnormal Lab Results - Last 24 Hours (Table) 10/06/24 10/06/24 Range/Units 07:51 12:20 POC Glucose (mg/dL) 300 H 186 H (70-110) mg/dL Microbiology - Last 24 Hours (Table) 10/05/24 14:25 Gram Stain - Preliminary Hip - Left Wound Culture - Preliminary
--- NOTE | 2024-10-07 14:47 | P.OP ---
Date of Procedure: 10/07/24 Preoperative Diagnosis: 1: Postoperative wound infection left inguinal area. 2. Status post femoral-femoral bypass utilizing PTFE. Postoperative Diagnosis: Same. Procedure(s) Performed: 1: Washout of left groin wound with pulse lavage. 2: Application of negative pressure VAC therapy. Anesthesia: MACHELLE Surgeon: Heraclio Hughes Estimated Blood Loss (ml): 5 Pathology: none sent Condition: stable Disposition: no change Indications for Procedure: Patient is a 64-year-old female status post femorofemoral bypass approximately 2 and half weeks ago. She presented to the emergency room with a wound infection. IV antibiotics were initiated. Patient is now offered operative washout and wound VAC therapy with the hope of salvaging the graft without infectious complications. Description of Procedure: Patient was brought the op room placed in the spine position administered general inhalational anesthesia delivered by the department anesthesiology. Patient's left groin wound was sterilely prepped and draped in the usual manner. Cultures had previously been obtained and were not repeated. The wound was completely opened. It measured 10 cm x 2.5 cm x 5 mm in length, width and depth. In doing so purulent drainage was noted from the proximal portion of the wound. The wound was irrigated utilizing the pulse lavage technique with 1 L of antibiotic containing saline solution. A black wound VAC was selected as the graft was not exposed and placed within the wound. Mastisol was placed about the wound and the wound VAC seal was completed with excellent seal noted. Patient tolerated the procedure well, awoke without apparent complication was transferred to the recovery area in satisfactory and stable condition.
[2024-10-07] MEDS: HYDROmorphone 0.5 MG/0.5 ML SYRINGE IVP PRN (15:05)
[2024-10-07] MEDS: IV FLUID CONTINUATION 1,000 ML IV ONE (15:10)
[2024-10-07 16:22] LABS: Glucose,Whole Blood 202 mg/dL (70-110)
[2024-10-07 17:08] LABS: Glucose,Whole Blood 191 mg/dL (70-110)
[2024-10-07] MEDS: MAGNESIUM SULFATE-D5W PMX 1 GM in DEXTROSE/WATER 1 100ML.BAG IVPB SCH (17:39)
[2024-10-07 18:38] LABS: ALT 9 U/L (4-34); AST 15 U/L (14-36); African American GFR (CKD) 73 (>60 ml/min/1.73 sqM); Albumin 2.3 g/dL (3.5-5.0); Albumin/Globulin Ratio 0.7; Alkaline Phosphatase 114 U/L (38-126); Anion Gap 9 mmol/L; Blood Urea Nitrogen 15 mg/dL (7-17); Calcium 8.1 mg/dL (8.4-10.2); Carbon Dioxide 24 mmol/L (22-30); Chloride 104 mmol/L (98-107); Globulin 3.2 g/dL; Glucose 213 mg/dL (74-99); Non-African American GFR(CKD) 63 (>60 ml/min/1.73 sqM); Potassium 4.7 mmol/L (3.5-5.1); Sodium 137 mmol/L (137-145); Total Bilirubin 0.8 mg/dL (0.2-1.3); Total Protein 5.5 g/dL (6.3-8.2)
[2024-10-07 18:47] LABS: Anisocytosis Slight; Basophils % (A) 0 %; Eosinophils # (A) 0.1 k/uL (0-0.7); Eosinophils % (A) 1 %; HCT 38.9 % (34.0-46.0); HGB 11.1 gm/dL (11.4-16.0); Hypochromasia Marked; Lymphocytes # (A) 0.4 k/uL (1.0-4.8); Lymphocytes % (A) 5 %; MCH 23.8 pg (25.0-35.0); MCHC 28.4 g/dL (31.0-37.0); MCV 83.9 fL (80.0-100.0); Mean Platelet Volume 8.6; Monocytes # (A) 0.2 k/uL (0-1.0); Monocytes % (A) 2 %; Neutrophils % (A) 90 %; Platelet Count 242 k/uL (150-450); RBC 4.64 m/uL (3.80-5.40); RDW 17.1 % (11.5-15.5); WBC 6.6 k/uL (3.8-10.6)
[2024-10-07 20:50] LABS: Glucose,Whole Blood 334 mg/dL (70-110)
[2024-10-08 07:07] LABS: Glucose,Whole Blood 246 mg/dL (70-110)
[2024-10-08 09:14] LABS: HCT 30.6 % (37.2-46.3); HGB 8.6 g/dL (12.0-15.0); MCH 23.1 pg (27.0-32.0); MCHC 28.1 g/dL (32.0-37.0); MCV 82.3 FL (80.0-97.0); Mean Platelet Volume 11.9 FL (9.5-12.2); NRBC Per 100 WBC 0 X 10*3/uL (0.00-0.01); Platelet Count 306 X 10*3/uL (140-440); RBC 3.72 X 10*6/uL (4.10-5.20); RDW 18.2 % (11.5-14.5); WBC 9.78 X 10*3/uL (4.50-10.00)
[2024-10-08 09:58] LABS: Blood Urea Nitrogen 14.8 mg/dL (9.0-27.0); Calcium 8.4 mg/dL (8.7-10.3); Carbon Dioxide 22.6 mmol/L (21.6-31.8); Chloride 106 mmol/L (96-109); Glucose 262 mg/dL (70-110); Magnesium 2.1 mg/dL (1.5-2.4); Potassium 5.3 mmol/L (3.5-5.5); Sodium 137 mmol/L (135-145)
[2024-10-08 11:13] LABS: Basophils # (A) 0.03 X 10*3/uL (0.00-0.10); Basophils % (A) 0.3 %; Eosinophils # (A) 0.02 X 10*3/uL (0.04-0.35); Eosinophils % (A) 0.2 %; Lymphocytes # (A) 0.57 X 10*3/uL (0.90-5.00); Lymphocytes % (A) 5.8 %; Monocytes # (A) 0.21 X 10*3/uL (0.20-1.00); Monocytes % (A) 2.1 %; Neutrophils # (A) 8.81 X 10*3/uL (1.80-7.70); Neutrophils % (A) 90.2 %
[2024-10-08 12:08] LABS: Glucose,Whole Blood 184 mg/dL (70-110)
--- NOTE | 2024-10-08 14:41 | P.PN ---
Subjective Progress Note Date: 10/08/24 Principal diagnosis: Surgical wound dehiscence, infection Patient is seen and examined today as a follow-up. She is status post washout of the left groin with pulse lavage and application of wound VAC. She states she is just really tired today. Denies any fevers or chills. Gram stain wound culture positive for MRSA, anaerobic preliminary Prevotella sp, positive blood culture presumptive MRSA. Objective - Vital Signs Vital signs: Vital Signs Temp 96.7 F L 10/08/24 07:00 Pulse 66 10/08/24 07:00 Resp 18 10/08/24 07:00 BP 112/64 10/08/24 07:00 Pulse Ox 94 L 10/08/24 07:00 FiO2 Intake & Output 10/07/24 10/08/24 10/08/24 18:59 06:59 18:59 Intake Total 901 1000 Output Total 1205 400 Balance -304 600 Intake: IV 901 Intake, IV Titration 1000 Amount Magnesium Sulfate-D5w Pmx 100 1 gm In Dextrose/Water 1 100ml.bag @ 100 mls/hr IVPB Q1H AGNES Rx#: [id number] Sodium Chloride 0.9% 1, 900 000 ml @ 75 mls/hr IV . [id number] AGNES Rx#:[id number] Output: Urine 1200 400 Estimated Blood Loss 5 Other: Voiding Method External Catheter External Catheter - Exam General appearance: The patient is alert, oriented, appears in no acute distress. HET: Head is normocephalic and atraumatic. Pupils are equal and reactive. Neck: Supple. Lungs: Equal expansion, normal respiratory effort. Abdomen: Soft, lower abdominal tenderness over bypass, nondistended. Extremities: Right groin surgical incision well healed, tender to palpation. Left groin with wound VAC in place with good suction. Neurological: No focal deficits. Alert and oriented. - Labs CBC & Chem 7: 10/08/24 04:04 10/08/24 04:04 Labs: Abnormal Lab Results - Last 24 Hours (Table) 10/07/24 10/07/24 10/07/24 Range/Units 12:03 16:21 17:07 RBC (4.10-5.20) X 10*6/uL Hgb (11.4-16.0) gm/dL Hct (37.2-46.3) % MCH (25.0-35.0) pg MCHC (31.0-37.0) g/dL RDW (11.5-15.5) % Lymphocytes # (1.0-4.8) k/uL Glucose (74-99) mg/dL POC Glucose (mg/dL) 180 H 202 H 191 H (70-110) mg/dL Calcium (8.4-10.2) mg/dL C-Reactive Protein (0.00-0.80) mg/dL Total Protein (6.3-8.2) g/dL Albumin (3.5-5.0) g/dL 10/07/24 10/07/24 10/07/24 Range/Units 17:50 17:50 20:48 RBC (4.10-5.20) X 10*6/uL Hgb 11.1 L (11.4-16.0) gm/dL Hct (37.2-46.3) % MCH 23.8 L (25.0-35.0) pg MCHC 28.4 L (31.0-37.0) g/dL RDW 17.1 H (11.5-15.5) % Lymphocytes # 0.4 L (1.0-4.8) k/uL Glucose 213 H (74-99) mg/dL POC Glucose (mg/dL) 334 H (70-110) mg/dL Calcium 8.1 L (8.4-10.2) mg/dL C-Reactive Protein (0.00-0.80) mg/dL Total Protein 5.5 L (6.3-8.2) g/dL Albumin 2.3 L (3.5-5.0) g/dL 10/08/24 10/08/24 10/08/24 Range/Units 04:04 04:04 07:06 RBC 3.72 L (4.10-5.20) X 10*6/uL Hgb 8.6 L (11.4-16.0) gm/dL Hct 30.6 L (37.2-46.3) % MCH 23.1 L (25.0-35.0) pg MCHC 28.1 L (31.0-37.0) g/dL RDW 18.2 H (11.5-15.5) % Lymphocytes # (1.0-4.8) k/uL Glucose 262 H (74-99) mg/dL POC Glucose (mg/dL) 246 H (70-110) mg/dL Calcium 8.4 L (8.4-10.2) mg/dL C-Reactive Protein 16.00 H (0.00-0.80) mg/dL Total Protein (6.3-8.2) g/dL Albumin (3.5-5.0) g/dL Microbiology - Last 24 Hours (Table) 10/05/24 14:25 Gram Stain - Final Hip - Left Wound Culture - Final Methicillin resist S. aureus 10/05/24 14:14 Blood Culture Gram Stain - Preliminary Blood Blood Culture - Preliminary Presumptive MRSA Molecular ID 10/05/24 14:15 Blood Culture - Preliminary Blood 10/05/24 14:25 Anaerobic Culture - Preliminary Hip - Left Prevotella sp (Bacteroides) Assessment and Plan Assessment: 1. Postop wound infection of the left inguinal area status post washout with application of wound VAC 2. Recent bilateral common femoral artery thromboendarterectomy and femorofemoral bypass 3. Hypokalemia 4. Peripheral arterial disease 5. History of right [id number] amputation 6. Obesity 7. Diabetes mellitus 8. History of DVT and pulmonary embolism Plan: 1. May resume Eliquis 2. Continue antibiotics per recommendations from infectious disease 3. Continue wound VAC to left groin, change Saturday and Fridays 4. Consult to Dr. Bailey for possible rotational muscle flap 5. Rest of medical management per primary medical team Thank you for this consultation, we will continue to follow. The impression and plan of care has been dictated as directed. Dr. Julio Polanco performed a history and examination of this patient, discussed the same with the dictator. I agree with the dictator's note ,documented as a scribe. Any additional findings or plans will be noted.
--- NOTE | 2024-10-08 15:04 | P.PN ---
Subjective Progress Note Date: 10/07/24 HISTORY OF PRESENT ILLNESS This is a 64-year-old female patient of mine with history of CAD with multiple cardiac stents in mid RCA, mid LAD, obtuse marginal branch and followed by Dr. Bill closely, peripheral artery disease with previous stenting done as well has amputation of the right great toe secondary to osteomyelitis, CVA with no residual deficits, hypertension, COPD, diabetes mellitus type 2, previous multiple DVT and PE requiring chronic anticoagulation on eliquis, history of GI bleed secondary to antral gastritis, esophagitis, vitamin D deficiency, history of left humerus fracture, history of PAD post right AKA and CAD post PCI of the RCA with intermediate disease of the LAD, patient underwent bilateral femoral thromboendarterectomy with femorofemoral bypass that was done successfully by Dr. Pardo on 09/14/2024 and the patient was discharged home was doing fine, tell last Saturday when she developed to have a significant diarrheal illness, associated with generalized fatigue and weakness not able to do anything, was not able to keep anything down, was supposed to go to see Dr. Pardo on for follow-up, but she could not make it because she was extremely weak and her son was not available to take her patient apparently stayed at home until her son came and and she ended up calling 911 for the patient to be brought into the emergency department because of generalized weakness not able to ambulate, and transfer herself, she ended up coming to the emergency department because of significant erythema and drainage from the left groin area where the surgical incision was done, there was concerns about infection in that area, patient was started on cefepime 2 g piggyback every 8 hours, daptomycin 350 mg IV piggyback every 24 hours, blood culture, x 2, wound culture aerobic and anaerobic, vascular surgery consultation as well as infectious disease consultation was obtained, patient also was found to have a severe hypokalemia, she will be replaced per protocol, she will be given a total of 120 mill equivalent of potassium today repeat CMP tomorrow morning. I will repeat her potassium this evening. 3/4: Patient is laying down in bed in minimal distress, she complains of increased pain in the left groin area, she continues to have a lot of drainage from the wound, she was seen earlier by vascular surgery who recommended to go for a washout of the wound, possible wound VAC placement later on today, patient blood glucose over was quite elevated, she did not receive her long-acting yesterday, I placed the patient on her sliding scale insulin plus her regular dose of insulin, will follow-up with the patient very closely, repeat laboratory evaluation in the next 24 hours. 10/07: Patient underwent washout of the left groin area with pressure lavage and wound VAC placement successfully by Dr. Pardo, she was seen in her room, she just got up from the recovery room, she is getting Dilaudid for pain control, she denies any chest pain, shortness of breath at this time, her son was at bedside, he was updated about her current condition, she remains on daptomycin due to methicillin-resistant Staphylococcus aureus, physical therapy evaluation in the next 24 hours, continue current pain management, continue aggressive pulmonary toileting, follow-up with labs in the morning REVIEW OF SYSTEMS Constitutional: No fever, No chills, no night sweats. Reports no weight loss. Reports weakness, Reports fatigue no lethargy. NO daytime sleepiness. HEENT: No headache. No dizziness. No nasal drainage or congestion. No epistaxis. No sore throat. Lungs: No shortness of breath, no cough, no sputum production. No wheezing. Cardiovascular: No chest pain, no lower extremity edema. No palpitations. No paroxysmal nocturnal dyspnea. No orthopnea. No lightheadedness or dizziness. No syncopal episodes. Abdominal: Reports no abdominal pain. Reports nausea, no vomiting. no diarrh ea. No constipation. No bloody or tarry stools. good appetite. Genitourinary: No dysuria, increased frequency, urgency. No urinary retention. Musculoskeletal: No myalgias. positive for muscle weakness, reports balance issues. Integumentary: Right AKA , left lower extremity is intact, pulses by Doppler, bilateral groin area with dressing. Neurologic: No aphasia. No facial droop. No change in mentation. No head injury. No headache. No paralysis. No paresthesia. Psychiatric: Reports depression. Reports anxiety. No mood swings. Endocrine: abnormal blood sugars. positive for weight change. No excessive sweating or thirst. No cold intolerance. PHYSICAL EXAMINATION Gen: This is a 64-year-old female. She is resting in bed i no acute distress HEENT: Head is atraumatic, normocephalic. Pupils equal, round. Sclerae is anicteric. Mucous members of the mouth are somewhat dry. NECK: Supple. No JVD. No lymphadenopathy. No thyromegaly. LUNGS: Clear to auscultation. No wheezes or rhonchi. No intercostal retractions. 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 ABDOMEN: Soft, non tender non distended and no rebound or guarding positive bowel sounds EXTREMITIES: Right above-knee amputation , left lower extremity is intact. Left groin area with wound VAC in place and minimal tenderness. NEUROLOGICAL: Patient is awake, alert and oriented x3. Cranial nerves 2 through 12 are grossly intact muscle power were 4 out of 5 in upper extremity is, and 3 out of 5 in the left lower extremity. She does have a right above-knee amputation. ASSESSMENT AND PLAN 1. Infected incision site of the left bilateral femoral endarterectomy with femoral-femoral bypass surgery that was done by Dr. Pardo 09/14/2024. Postoperative day #0 status post left groin washout with pressure lavage and wound VAC placement. Continue IV antibiotic in the form of daptomycin cultures are positive for methicillin-resistant Staphylococcus aureus, patient was taken off cefepime, infectious disease/vascular surgery are following. 2. Hypokalemia and hypomagnesemia status post replacement repeat CMP and magnesium tomorrow morning. 3. Coronary artery disease with recent stent of the RCA due to recent in-stent restenosis. Patient has had previous multiple cardiac stents to the RCA and mid LAD, obtuse marginal branch. Continue patient on aspirin 81 mg daily, Lopresso r 25 mg twice daily, Atorvastatin 80 mg po daily . 4. Diabetes mellitus type 2 uncontrolled with hypoglycemia , we will continue Lantus 46 units units at bedtime, along with a sliding scale insulin, continue with Humalog 12 units before each meal along with pioglitazone 30 mg once every day, continue Farxiga 10 mg once every day . 5. Mixed hyperlipidemia. Hold atorvastatin due to the interaction with daptomycin for now, monitor the patient at bedtime, keep LDL 55-70. 6. Chronic DVT and PEs. Continue patient on eliquis 5 mg twice daily. 7. Hypertension and hypertensive cardiovascular disease. Continue metoprolol 25 mg orally twice every day. Monitor the patient blood pressure very closely. 8. Gastroesophageal reflux disease and GI prophylaxis. Continue Pantoprazole 40 mg daily 9. Diabetic neuropathy. we will continue wit Gabapentin 400 mg po tid. 10. Generalized anxiety disorder, recurrent depression. Continue Cymbalta 60 mg po daily. 11. DVT prophylaxis. Continue Eliquis 5 mg po bid 12. GI prophylaxis. Continue patient on pantoprazole 40 mg once every day 13. Hypomagnesemia status post replacement. 14. Physical therapy evaluation 15. hot blast worker consultation for discharge planning. Objective - Vital Signs Vital signs: Vital Signs Temp 98.2 F 10/07/24 12:51 Pulse 87 10/07/24 12:51 Resp 18 10/07/24 12:51 BP 119/56 10/07/24 12:51 Pulse Ox 99 10/07/24 12:51 FiO2 Intake & Output 10/06/24 10/07/24 10/07/24 18:59 06:59 18:59 Intake Total 1545 601 Output Total 1100 1200 805 Balance 445 -1200 -204 Weight 85.275 kg Intake: IV 601 Intake, IV Titration 225 Amount Cefepime 2 gm In Sodium 125 Chloride 0.9% 100 ml @ 25 mls/hr IVPB Q8HR [facility] Rx# :[id number] DAPTOmycin 350 mg In 100 Sodium Chloride 0.9% 50 ml @ 100 mls/hr IVPB Q24HR [facility] Rx#:[id number] Oral 1320 Output: Urine 1100 1200 800 Estimated Blood Loss 5 Other: Voiding Method External Catheter External Catheter - Labs CBC & Chem 7: 10/08/24 04:04 10/08/24 04:04 Labs: Abnormal Lab Results - Last 24 Hours (Table) 10/06/24 10/06/24 10/06/24 Range/Units 08:46 08:46 20:32 WBC 11.97 H (4.50-10.00) X 10*3/uL RBC 3.92 L (4.10-5.20) X 10*6/uL Hgb 9.0 L (12.0-15.0) g/dL Hct 32.7 L (37.2-46.3) % MCH 23.0 L (27.0-32.0) pg MCHC 27.5 L (32.0-37.0) g/dL RDW 17.9 H (11.5-14.5) % Immature Gran # 0.12 H (0.00-0.04) X 10*3/uL Neutrophils # 9.66 H (1.80-7.70) X 10*3/uL Lymphocytes # 0.56 L (0.90-5.00) X 10*3/uL Eosinophils # 0.78 H (0.04-0.35) X 10*3/uL ESR 50 H (0-30) mm/Hr BUN/Creatinine Ratio 10.60 L (12.00-20.00) Ratio Glucose 302 H (70-110) mg/dL POC Glucose (mg/dL) 183 H (70-110) mg/dL Calcium 8.2 L (8.7-10.3) mg/dL Magnesium 1.4 L (1.5-2.4) mg/dL AST 12 L (13-35) U/L ALT <5 L (8-44) U/L Total Protein 5.8 L (6.2-8.2) g/dL Albumin 2.4 L (3.8-4.9) g/dL Globulin 3.4 H (1.6-3.3) g/dL Albumin/Globulin Ratio 0.71 L (1.60-3.17) Ratio 10/07/24 10/07/24 Range/Units 07:12 12:03 WBC (4.50-10.00) X 10*3/uL RBC (4.10-5.20) X 10*6/uL Hgb (12.0-15.0) g/dL Hct (37.2-46.3) % MCH (27.0-32.0) pg MCHC (32.0-37.0) g/dL RDW (11.5-14.5) % Immature Gran # (0.00-0.04) X 10*3/uL Neutrophils # (1.80-7.70) X 10*3/uL Lymphocytes # (0.90-5.00) X 10*3/uL Eosinophils # (0.04-0.35) X 10*3/uL ESR (0-30) mm/Hr BUN/Creatinine Ratio (12.00-20.00) Ratio Glucose (70-110) mg/dL POC Glucose (mg/dL) 184 H 180 H (70-110) mg/dL Calcium (8.7-10.3) mg/dL Magnesium (1.5-2.4) mg/dL AST (13-35) U/L ALT (8-44) U/L Total Protein (6.2-8.2) g/dL Albumin (3.8-4.9) g/dL Globulin (1.6-3.3) g/dL Albumin/Globulin Ratio (1.60-3.17) Ratio Microbiology - Last 24 Hours (Table) 10/05/24 14:25 Gram Stain - Preliminary Hip - Left Wound Culture - Preliminary Presumptive MRSA 10/05/24 14:14 Blood Culture Gram Stain - Preliminary Blood Blood Culture - Preliminary Molecular ID 10/05/24 14:15 Blood Culture - Preliminary Blood
--- NOTE | 2024-10-08 15:06 | P.PN ---
Subjective Progress Note Date: 10/08/24 Principal diagnosis: Reason for follow-up is left groin infected wound Patient is a 64-year-old female with a past medical history significant for Coronary Artery Disease (CAD), Cancer, CVA/TIA, Diabetes Mellitus, Deep Vein Thrombosis (DVT), GERD/Reflux, Memory Impairment, Osteoarthritis (OA), Pulmonary Embolus (PE), Vascular Disorder who recently underwent bilateral common femoral artery thromboendarterectomy and femorofemoral bypass on 09/14/2024 presented to hospital with bilateral groin pain and draining wound to the left groin area has been diagnosed with surgical site infection prompted this consultation. Patient did have left groin washout and placement of wound VAC procedure completed on 10/07/2024. On today's evaluation that is 10/08/2024,the patient remains to be afebrile, patient is on room air not requiring supplemental oxygen and denies any shortn ess of breath no chest pain or cough.Patient denies having any nausea or vomiting, no abdominal pain and no diarrhea, pain to the left groin slightly decreased in intensity. Patient white count is 9.78 creatinine is 1.0 blood and local culture currently growing MRSA and bacteroids Objective - Vital Signs Vital signs: Vital Signs Temp 97.3 F L 10/08/24 12:02 Pulse 71 10/08/24 12:02 Resp 18 10/08/24 12:02 BP 110/63 10/08/24 12:02 Pulse Ox 98 10/08/24 12:02 FiO2 Intake & Output 10/07/24 10/08/24 10/08/24 18:59 06:59 18:59 Intake Total 901 1000 Output Total 1205 400 Balance -304 600 Intake: IV 901 Intake, IV Titration 1000 Amount Magnesium Sulfate-D5w Pmx 100 1 gm In Dextrose/Water 1 100ml.bag @ 100 mls/hr IVPB Q1H [facility] Rx#: [id number] Sodium Chloride 0.9% 1, 900 000 ml @ 75 mls/hr IV . [id number] [facility] Rx#:[id number] Output: Urine 1200 400 Estimated Blood Loss 5 Other: Voiding Method External Catheter External Catheter - Exam GENERAL DESCRIPTION: Middle-age female e lying in bed in no distress RESPIRATORY SYSTEM: Unlabored breathing , decreased breath sounds at bases HEART: S1 S2 regular rate and rhythm , ABDOMEN: Soft , no tenderness EXTREMITIES: Left groin currently covered with a wound VAC - Labs CBC & Chem 7: 10/08/24 04:04 10/08/24 04:04 Labs: Abnormal Lab Results - Last 24 Hours (Table) 10/07/24 10/07/24 10/07/24 Range/Units 16:21 17:07 17:50 RBC (4.10-5.20) X 10*6/uL Hgb 11.1 L (11.4-16.0) gm/dL Hct (37.2-46.3) % MCH 23.8 L (25.0-35.0) pg MCHC 28.4 L (31.0-37.0) g/dL RDW 17.1 H (11.5-15.5) % Immature Gran # (0.00-0.04) X 10*3/uL Neutrophils # (1.80-7.70) X 10*3/uL Lymphocytes # 0.4 L (1.0-4.8) k/uL Eosinophils # (0.04-0.35) X 10*3/uL Glucose (74-99) mg/dL POC Glucose (mg/dL) 202 H 191 H (70-110) mg/dL Calcium (8.4-10.2) mg/dL C-Reactive Protein (0.00-0.80) mg/dL Total Protein (6.3-8.2) g/dL Albumin (3.5-5.0) g/dL 10/07/24 10/07/24 10/08/24 Range/Units 17:50 20:48 04:04 RBC 3.72 L (4.10-5.20) X 10*6/uL Hgb 8.6 L (11.4-16.0) gm/dL Hct 30.6 L (37.2-46.3) % MCH 23.1 L (25.0-35.0) pg MCHC 28.1 L (31.0-37.0) g/dL RDW 18.2 H (11.5-15.5) % Immature Gran # 0.14 H (0.00-0.04) X 10*3/uL Neutrophils # 8.81 H (1.80-7.70) X 10*3/uL Lymphocytes # 0.57 L (1.0-4.8) k/uL Eosinophils # 0.02 L (0.04-0.35) X 10*3/uL Glucose 213 H (74-99) mg/dL POC Glucose (mg/dL) 334 H (70-110) mg/dL Calcium 8.1 L (8.4-10.2) mg/dL C-Reactive Protein (0.00-0.80) mg/dL Total Protein 5.5 L (6.3-8.2) g/dL Albumin 2.3 L (3.5-5.0) g/dL 10/08/24 10/08/24 10/08/24 Range/Units 04:04 07:06 12:07 RBC (4.10-5.20) X 10*6/uL Hgb (11.4-16.0) gm/dL Hct (37.2-46.3) % MCH (25.0-35.0) pg MCHC (31.0-37.0) g/dL RDW (11.5-15.5) % Immature Gran # (0.00-0.04) X 10*3/uL Neutrophils # (1.80-7.70) X 10*3/uL Lymphocytes # (1.0-4.8) k/uL Eosinophils # (0.04-0.35) X 10*3/uL Glucose 262 H (74-99) mg/dL POC Glucose (mg/dL) 246 H 184 H (70-110) mg/dL Calcium 8.4 L (8.4-10.2) mg/dL C-Reactive Protein 16.00 H (0.00-0.80) mg/dL Total Protein (6.3-8.2) g/dL Albumin (3.5-5.0) g/dL Microbiology - Last 24 Hours (Table) 10/05/24 14:25 Gram Stain - Final Hip - Left Wound Culture - Final Methicillin resist S. aureus 10/05/24 14:14 Blood Culture Gram Stain - Preliminary Blood Blood Culture - Preliminary Presumptive MRSA Molecular ID 10/05/24 14:15 Blood Culture - Preliminary Blood 10/05/24 14:25 Anaerobic Culture - Preliminary Hip - Left Prevotella sp (Bacteroides) Assessment and Plan (1) Allergy to vancomycin Current Visit: Yes Status: Acute Code(s): Z88.1 - ALLERGY STATUS TO OTHER ANTIBIOTIC AGENTS SNOMED Code(s): 914155846 (2) Wound infection after surgery Current Visit: No Status: Acute Code(s): T81.49XA - INFECTION FOLLOWING A PROCEDURE, OTHER SURGICAL SITE, INIT SNOMED Code(s): 17495169 (3) Leukocytosis Current Visit: No Status: Acute Code(s): D72.829 - ELEVATED WHITE BLOOD CELL COUNT, UNSPECIFIED SNOMED Code(s): 138508379 Plan: 1-patient presented to hospital with increasing pain to bilateral groin area and drainage from the left groin in this patient who recently did have bilateral common femoral artery thromboendarterectomy and femorofemoral bypass on 09/14/2024 now presenting with increasing pain swelling erythema and drainage concerning for surgical site of infection we will need to cover for resistant gram-positive as well as gram-negative pathogen. 2-patient with vancomycin allergy that will limit number of antibiotics safe to use. 3-patient is status post left groin washout and application of wound VAC pl acement completed on 10/07/2024 4blood culture positive for MRSA local culture growing MRSA as well as bacteroids patient is covered with the daptomycin will add Flagyl to cover for the Bacteroides will likely need removal of the infected hardware versus lifelong suppressive antibiotic therapy question concerns answered Dictation was produced using [employer] dictation software. please excuse any gramm atical, word or spelling errors. Time with Patient: Less than 30
[2024-10-08 16:45] LABS: Erythrocyte Sedimentation Rate 93 mm/Hr (0-30)
[2024-10-08 17:16] LABS: Glucose,Whole Blood 122 mg/dL (70-110)
[2024-10-08] MEDS: metroNIDAZOLE 500 MG TAB PO SCH (17:27)
[2024-10-08 20:02] LABS: Glucose,Whole Blood 256 mg/dL (70-110)
[2024-10-08] MEDS: APIXABAN 5 MG TAB PO SCH (20:15)
[2024-10-09 08:14] LABS: Glucose,Whole Blood 190 mg/dL (70-110)
[2024-10-09 08:27] LABS: Basophils # (A) 0.03 X 10*3/uL (0.00-0.10); Basophils % (A) 0.2 %; Eosinophils # (A) 0.15 X 10*3/uL (0.04-0.35); Eosinophils % (A) 1.2 %; HCT 26.6 % (37.2-46.3); HGB 7.8 g/dL (12.0-15.0); Lymphocytes # (A) 1.17 X 10*3/uL (0.90-5.00); Lymphocytes % (A) 9.3 %; MCH 23.6 pg (27.0-32.0); MCHC 29.3 g/dL (32.0-37.0); MCV 80.6 FL (80.0-97.0); Mean Platelet Volume 10.7 FL (9.5-12.2); NRBC Per 100 WBC 0.02 X 10*3/uL (0.00-0.01); Neutrophils # (A) 10.52 X 10*3/uL (1.80-7.70); Neutrophils % (A) 83.6 %; Platelet Count 340 X 10*3/uL (140-440); RDW 18.3 % (11.5-14.5); WBC 12.59 X 10*3/uL (4.50-10.00)
[2024-10-09 08:28] LABS: Magnesium 1.9 mg/dL (1.5-2.4)
[2024-10-09 08:46] LABS: ALT <5 U/L (8-44); AST 13 U/L (13-35); Albumin 2.1 g/dL (3.8-4.9); Albumin/Globulin Ratio 0.72 Ratio (1.60-3.17); Alkaline Phosphatase 105 U/L (41-126); Blood Urea Nitrogen 16.1 mg/dL (9.0-27.0); Calcium 8.2 mg/dL (8.7-10.3); Carbon Dioxide 24.4 mmol/L (21.6-31.8); Chloride 106 mmol/L (96-109); Globulin 2.9 g/dL (1.6-3.3); Glucose 190 mg/dL (70-110); Potassium 4.6 mmol/L (3.5-5.5); Sodium 138 mmol/L (135-145); Total Bilirubin 0.2 mg/dL (0.3-1.2)
--- NOTE | 2024-10-09 09:00 | P.PN ---
Subjective Progress Note Date: 10/09/24 Principal diagnosis: Surgical wound dehiscence, infection Patient seen and examined today as a follow-up. States she is feeling a little bit better today but still tired. Wound VAC in place to left groin with good suction. She has been afebrile. Denies any shortness of breath, chest pain, abdominal pain, nausea or vomiting. No pain in her left lower extremity. Objective - Vital Signs Vital signs: Vital Signs Temp 97.6 F 10/09/24 07:13 Pulse 70 10/09/24 07:13 Resp 16 10/09/24 07:13 BP 127/75 10/09/24 07:13 Pulse Ox 97 10/09/24 07:13 FiO2 Intake & Output 10/08/24 10/09/24 10/09/24 18:59 06:59 18:59 Intake Total 950 500 Output Total 300 400 Balance 650 100 Intake: Intake, IV Titration 950 Amount DAPTOmycin 500 mg In 50 Sodium Chloride 0.9% 50 ml @ 100 mls/hr IVPB Q24HR [facility] Rx#:[id number] Sodium Chloride 0.9% 1, 900 000 ml @ 75 mls/hr IV . [id number] [facility] Rx#:[id number] Oral 500 Output: Urine 300 400 Other: Voiding Method External Catheter - Exam General appearance: The patient is alert, oriented, appears in no acute distress. HET: Head is normocephalic and atraumatic. Pupils are equal and reactive. Neck: Supple. Lungs: Equal expansion, normal respiratory effort. Abdomen: Soft, lower abdominal tenderness over bypass, nondistended. Extremities: Right groin surgical incision well healed, tender to palpation. Left groin with wound VAC in place with good suction. Neurological: No focal deficits. Alert and oriented. - Labs CBC & Chem 7: 10/09/24 03:43 10/09/24 03:43 Labs: Abnormal Lab Results - Last 24 Hours (Table) 10/08/24 10/08/24 10/08/24 Range/Units 04:04 04:04 12:07 WBC (4.50-10.00) X 10*3/uL RBC 3.72 L (4.10-5.20) X 10*6/uL Hgb 8.6 L (12.0-15.0) g/dL Hct 30.6 L (37.2-46.3) % MCH 23.1 L (27.0-32.0) pg MCHC 28.1 L (32.0-37.0) g/dL RDW 18.2 H (11.5-14.5) % Immature Gran # 0.14 H (0.00-0.04) X 10*3/uL Neutrophils # 8.81 H (1.80-7.70) X 10*3/uL Lymphocytes # 0.57 L (0.90-5.00) X 10*3/uL Eosinophils # 0.02 L (0.04-0.35) X 10*3/uL NRBC/100 WBC Diff (0.00-0.01) X 10*3/uL ESR 93 H (0-30) mm/Hr Glucose 262 H (70-110) mg/dL POC Glucose (mg/dL) 184 H (70-110) mg/dL Calcium 8.4 L (8.7-10.3) mg/dL Total Bilirubin (0.3-1.2) mg/dL ALT (8-44) U/L C-Reactive Protein 16.00 H (0.00-0.80) mg/dL Total Protein (6.2-8.2) g/dL Albumin (3.8-4.9) g/dL Albumin/Globulin Ratio (1.60-3.17) Ratio 10/08/24 10/08/24 10/09/24 Range/Units 17:13 20:01 03:43 WBC 12.59 H (4.50-10.00) X 10*3/uL RBC 3.30 L (4.10-5.20) X 10*6/uL Hgb 7.8 L (12.0-15.0) g/dL Hct 26.6 L (37.2-46.3) % MCH 23.6 L (27.0-32.0) pg MCHC 29.3 L (32.0-37.0) g/dL RDW 18.3 H (11.5-14.5) % Immature Gran # 0.22 H (0.00-0.04) X 10*3/uL Neutrophils # 10.52 H (1.80-7.70) X 10*3/uL Lymphocytes # (0.90-5.00) X 10*3/uL Eosinophils # (0.04-0.35) X 10*3/uL NRBC/100 WBC Diff 0.02 H (0.00-0.01) X 10*3/uL ESR (0-30) mm/Hr Glucose (70-110) mg/dL POC Glucose (mg/dL) 122 H 256 H (70-110) mg/dL Calcium (8.7-10.3) mg/dL Total Bilirubin (0.3-1.2) mg/dL ALT (8-44) U/L C-Reactive Protein (0.00-0.80) mg/dL Total Protein (6.2-8.2) g/dL Albumin (3.8-4.9) g/dL Albumin/Globulin Ratio (1.60-3.17) Ratio 10/09/24 10/09/24 Range/Units 03:43 08:10 WBC (4.50-10.00) X 10*3/uL RBC (4.10-5.20) X 10*6/uL Hgb (12.0-15.0) g/dL Hct (37.2-46.3) % MCH (27.0-32.0) pg MCHC (32.0-37.0) g/dL RDW (11.5-14.5) % Immature Gran # (0.00-0.04) X 10*3/uL Neutrophils # (1.80-7.70) X 10*3/uL Lymphocytes # (0.90-5.00) X 10*3/uL Eosinophils # (0.04-0.35) X 10*3/uL NRBC/100 WBC Diff (0.00-0.01) X 10*3/uL ESR (0-30) mm/Hr Glucose 190 H (70-110) mg/dL POC Glucose (mg/dL) 190 H (70-110) mg/dL Calcium 8.2 L (8.7-10.3) mg/dL Total Bilirubin 0.2 L (0.3-1.2) mg/dL ALT <5 L (8-44) U/L C-Reactive Protein (0.00-0.80) mg/dL Total Protein 5.0 L (6.2-8.2) g/dL Albumin 2.1 L (3.8-4.9) g/dL Albumin/Globulin Ratio 0.72 L (1.60-3.17) Ratio Microbiology - Last 24 Hours (Table) 10/05/24 14:14 Blood Culture Gram Stain - Final Blood Blood Culture - Final Methicillin resist S. aureus Molecular ID 10/05/24 14:15 Blood Culture - Preliminary Blood 10/05/24 14:25 Gram Stain - Final Hip - Left Wound Culture - Final Methicillin resist S. aureus Assessment and Plan Assessment: 1. Postop wound infection of the left inguinal area status post washout with application of wound VAC 2. Recent bilateral common femoral artery thromboendarterectomy and femorofemoral bypass 3. Hypokalemia, resolved 4. Bacteremia 5. Peripheral arterial disease 6. History of right [id number] amputation 7. Obesity 8. Diabetes mellitus 9. History of DVT and pulmonary embolism Plan: 1. Continue Eliquis 2. Continue antibiotics per recommendations from infectious disease 3. Continue wound VAC to left groin, change Saturday and Fridays 4. Consult to Dr. Bailey for possible rotational muscle flap, if not available to round outpatient consultation would be recommended 5. Rest of medical management per primary medical team Thank you for this consultation, we will continue to follow. The impression and plan of care has been dictated as directed. Dr. Rutledge I performed a history and examination of this patient, discussed the same with the dictator. I agree with the dictator's note ,documented as a scribe. Any additional findings or plans will be noted.
[2024-10-09] MEDS: DAPTOmycin 500 MG in SODIUM CHLORIDE 0.9% 50 ML IVPB SCH (09:37)
[2024-10-09] MEDS: ZINC OXIDE PASTE (Z-GUARD) 1 APPLIC TOPICAL PRN (10:29)
[2024-10-09 12:51] LABS: Glucose,Whole Blood 103 mg/dL (70-110)
--- NOTE | 2024-10-09 13:27 | P.PN ---
Subjective Progress Note Date: 10/09/24 Principal diagnosis: Reason for follow-up is left groin infected wound Patient is a 64-year-old female with a past medical history significant for Coronary Artery Disease (CAD), Cancer, CVA/TIA, Diabetes Mellitus, Deep Vein Thrombosis (DVT), GERD/Reflux, Memory Impairment, Osteoarthritis (OA), Pulmonary Embolus (PE), Vascular Disorder who recently underwent bilateral common femoral artery thromboendarterectomy and femorofemoral bypass on 09/14/2024 presented to hospital with bilateral groin pain and draining wound to the left groin area has been diagnosed with surgical site infection prompted this consultation. Patient did have left groin washout and placement of wound VAC procedure completed on 10/07/2024. On today's evaluation that is 10/09/2024, the patient continues to be afebrile, the patient is on room air and breathing comfortably, the Pt denies having any chest pain or cough, the patient denies having any abdominal pain no vomiting or any diarrhea pain to the left groin is currently controlled. Patient white count is 12.59, creatinine is 1.0 blood culture repeat currently pending Objective - Vital Signs Vital signs: Vital Signs Temp 97.6 F 10/09/24 07:13 Pulse 70 10/09/24 07:13 Resp 16 10/09/24 07:13 BP 127/75 10/09/24 07:13 Pulse Ox 97 10/09/24 07:13 FiO2 Intake & Output 10/08/24 10/09/24 10/09/24 18:59 06:59 18:59 Intake Total 950 500 Output Total 300 400 Balance 650 100 Intake: Intake, IV Titration 950 Amount DAPTOmycin 500 mg In 50 Sodium Chloride 0.9% 50 ml @ 100 mls/hr IVPB Q24HR [facility] Rx#:[id number] Sodium Chloride 0.9% 1, 900 000 ml @ 75 mls/hr IV . [id number] [facility] Rx#:[id number] Oral 500 Output: Urine 300 400 Other: Voiding Method External Catheter External Catheter - Exam GENERAL DESCRIPTION: Middle-age female e lying in bed in no distress RESPIRATORY SYSTEM: Unlabored breathing , decreased breath sounds at bases HEART: S1 S2 regular rate and rhythm , ABDOMEN: Soft , no tenderness EXTREMITIES: Left groin currently covered with a wound VAC - Labs CBC & Chem 7: 10/09/24 03:43 10/09/24 03:43 Labs: Abnormal Lab Results - Last 24 Hours (Table) 10/08/24 10/08/24 10/08/24 Range/Units 04:04 17:13 20:01 WBC (4.50-10.00) X 10*3/uL RBC (4.10-5.20) X 10*6/uL Hgb (12.0-15.0) g/dL Hct (37.2-46.3) % MCH (27.0-32.0) pg MCHC (32.0-37.0) g/dL RDW (11.5-14.5) % Immature Gran # (0.00-0.04) X 10*3/uL Neutrophils # (1.80-7.70) X 10*3/uL NRBC/100 WBC Diff (0.00-0.01) X 10*3/uL ESR 93 H (0-30) mm/Hr Glucose (70-110) mg/dL POC Glucose (mg/dL) 122 H 256 H (70-110) mg/dL Calcium (8.7-10.3) mg/dL Total Bilirubin (0.3-1.2) mg/dL ALT (8-44) U/L Total Protein (6.2-8.2) g/dL Albumin (3.8-4.9) g/dL Albumin/Globulin Ratio (1.60-3.17) Ratio 10/09/24 10/09/24 10/09/24 Range/Units 03:43 03:43 08:10 WBC 12.59 H (4.50-10.00) X 10*3/uL RBC 3.30 L (4.10-5.20) X 10*6/uL Hgb 7.8 L (12.0-15.0) g/dL Hct 26.6 L (37.2-46.3) % MCH 23.6 L (27.0-32.0) pg MCHC 29.3 L (32.0-37.0) g/dL RDW 18.3 H (11.5-14.5) % Immature Gran # 0.22 H (0.00-0.04) X 10*3/uL Neutrophils # 10.52 H (1.80-7.70) X 10*3/uL NRBC/100 WBC Diff 0.02 H (0.00-0.01) X 10*3/uL ESR (0-30) mm/Hr Glucose 190 H (70-110) mg/dL POC Glucose (mg/dL) 190 H (70-110) mg/dL Calcium 8.2 L (8.7-10.3) mg/dL Total Bilirubin 0.2 L (0.3-1.2) mg/dL ALT <5 L (8-44) U/L Total Protein 5.0 L (6.2-8.2) g/dL Albumin 2.1 L (3.8-4.9) g/dL Albumin/Globulin Ratio 0.72 L (1.60-3.17) Ratio Microbiology - Last 24 Hours (Table) 10/05/24 14:25 Anaerobic Culture - Final Hip - Left Prevotella sp (Bacteroides) 10/05/24 14:14 Blood Culture Gram Stain - Final Blood Blood Culture - Final Methicillin resist S. aureus Molecular ID 10/05/24 14:15 Blood Culture - Preliminary Blood 10/05/24 14:25 Gram Stain - Final Hip - Left Wound Culture - Final Methicillin resist S. aureus Assessment and Plan (1) Allergy to vancomycin Current Visit: Yes Status: Acute Code(s): Z88.1 - ALLERGY STATUS TO OTHER ANTIBIOTIC AGENTS SNOMED Code(s): 145899700 (2) Wound infection after surgery Current Visit: No Status: Acute Code(s): T81.49XA - INFECTION FOLLOWING A PROCEDURE, OTHER SURGICAL SITE, INIT SNOMED Code(s): 87649849 (3) Leukocytosis Current Visit: No Status: Acute Code(s): D72.829 - ELEVATED WHITE BLOOD CELL COUNT, UNSPECIFIED SNOMED Code(s): 938406545 Plan: 1-patient presented to hospital with increasing pain to bilateral groin area and drainage from the left groin in this patient who recently did have bilateral common femoral artery thromboendarterectomy and femorofemoral bypass on 09/14/2024 now presenting with increasing pain swelling erythema and drainage concerning for surgical site of infection we will need to cover for resistant gram-positive as well as gram-negative pathogen. 2-patient with vancomycin allergy that will limit number of antibiotics safe to use. 3-patient is status post left groin washout and application of wound VAC placement completed on 10/07/2024 4blood culture positive for MRSA local culture growing MRSA as well as bacteroids patient is covered with the daptomycin and Flagyl, however once the p atient cleared her bacteremia we will order PICC line for outpatient IV antibiotic Dictation was produced using [employer] dictation software. please excuse any grammatical, word or spelling errors. Time with Patient: Less than 30
--- NOTE | 2024-10-09 15:20 | P.PN ---
Subjective Progress Note Date: 10/08/24 HISTORY OF PRESENT ILLNESS This is a 64-year-old female patient of mine with history of CAD with multiple cardiac stents in mid RCA, mid LAD, obtuse marginal branch and followed by Dr. Bill closely, peripheral artery disease with previous stenting done as well has amputation of the right great toe secondary to osteomyelitis, CVA with no residual deficits, hypertension, COPD, diabetes mellitus type 2, previous multiple DVT and PE requiring chronic anticoagulation on eliquis, history of GI bleed secondary to antral gastritis, esophagitis, vitamin D deficiency, history of left humerus fracture, history of PAD post right AKA and CAD post PCI of the RCA with intermediate disease of the LAD, patient underwent bilateral femoral thromboendarterectomy with femorofemoral bypass that was done successfully by Dr. Pardo on 09/14/2024 and the patient was discharged home was doing fine, tell last Saturday when she developed to have a significant diarrheal illness, associated with generalized fatigue and weakness not able to do anything, was not able to keep anything down, was supposed to go to see Dr. Pardo on for follow-up, but she could not make it because she was extremely weak and her son was not available to take her patient apparently stayed at home until her son came and and she ended up calling 911 for the patient to be brought into the emergency department because of generalized weakness not able to ambulate, and transfer herself, she ended up coming to the emergency department because of significant erythema and drainage from the left groin area where the surgical incision was done, there was concerns about infection in that area, patient was started on cefepime 2 g piggyback every 8 hours, daptomycin 350 mg IV piggyback every 24 hours, blood culture, x 2, wound culture aerobic and anaerobic, vascular surgery consultation as well as infectious disease consultation was obtained, patient also was found to have a severe hypokalemia, she will be replaced per protocol, she will be given a total of 120 mill equivalent of potassium today repeat CMP tomorrow morning. I will repeat her potassium this evening. 3/4: Patient is laying down in bed in minimal distress, she complains of increased pain in the left groin area, she continues to have a lot of drainage from the wound, she was seen earlier by vascular surgery who recommended to go for a washout of the wound, possible wound VAC placement later on today, patient blood glucose over was quite elevated, she did not receive her long-acting yesterday, I placed the patient on her sliding scale insulin plus her regular dose of insulin, will follow-up with the patient very closely, repeat laboratory evaluation in the next 24 hours. 10/07: Patient underwent washout of the left groin area with pressure lavage and wound VAC placement successfully by Dr. Pardo, she was seen in her room, she just got up from the recovery room, she is getting Dilaudid for pain control, she denies any chest pain, shortness of breath at this time, her son was at bedside, he was updated about her current condition, she remains on daptomycin due to methicillin-resistant Staphylococcus aureus, physical therapy evaluation in the next 24 hours, continue current pain management, continue aggressive pulmonary toileting, follow-up with labs in the morning 10/08: Patient is laying down in bed in no apparent distress, she denies any chest pain at this time, she has no shortness of breath at this time she denies any abdominal pain nausea vomiting or diarrhea, she continues to be on daptomycin due to methicillin-resistant Staphylococcus aureus, patient is not enjoying the food, and she is feeling a bit nauseated, she is controlling her pain very well, has been having the wound VAC in place, we will continue follow-up with the patient very closely, REVIEW OF SYSTEMS Constitutional: No fever, No chills, no night sweats. Reports no weight loss. Reports weakness, Reports fatigue no lethargy. NO daytime sleepiness. HEENT: No headache. No dizziness. No nasal drainage or congestion. No epistaxis. No sore throat. Lungs: No shortness of breath, no cough, no sputum production. No wheezing. Cardiovascular: No chest pain, no lower extremity edema. No palpitations. No paroxysmal nocturnal dyspnea. No orthopnea. No lightheadedness or dizziness. No syncopal episodes. Abdominal: Reports no abdominal pain. Reports nausea, no vomiting. no diarrhea. No constipation. No bloody or tarry stools. good appetite. Genitourinary: No dysuria, increased frequency, urgency. No urinary retention. Musculoskeletal: No myalgias. positive for muscle weakness, reports balance issues. Integumentary: Right AKA , left lower extremity is intact, pulses by Doppler, left groin with the wound VAC. Neurologic: No aphasia. No facial droop. No change in mentation. No head injury. No headache. No paralysis. No paresthesia. Psychiatric: Reports depression. Reports anxiety. No mood swings. Endocrine: abnormal blood sugars. positive for weight change. No excessive sweating or thirst. No cold intolerance. PHYSICAL EXAMINATION Gen: This is a 64-year-old female. She is resting in bed i no acute distress HEENT: Head is atraumatic, normocephalic. Pupils equal, round. Sclerae is anicteric. Mucous members of the mouth are somewhat dry. NECK: Supple. No JVD. No lymphadenopathy. No thyromegaly. LUNGS: Clear to auscultation. No wheezes or rhonchi. No intercostal retractions. 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 ABDOMEN: Soft, non tender non distended and no rebound or guarding positive bowel sounds EXTREMITIES: Right above-knee amputation , left lower extremity is intact. Left groin area with wound VAC in place and minimal tenderness. NEUROLOGICAL: Patient is awake, alert and oriented x3. Cranial nerves 2 through 12 are grossly intact muscle power were 4 out of 5 in upper extremity is, and 3 out of 5 in the left lower extremity. She does have a right above-knee amputation. ASSESSMENT AND PLAN 1. Postoperative day #2 status post left groin wound washout with the pulse lavage and wound VAC placement. Follow-up higher femorofemoral bypass using PTFE. Continue patient on daptomycin since the patient culture is showing methicillin-resistant Staphylococcus aureus, continue metronidazole 500 mg o rally 3 times every day infectious and vascular surgery are following continue current pain management, follow-up with the patient very closely. 2. Hypokalemia and hypomagnesemia status post replacement . We will repeat CMP and magnesium tomorrow morning. 3. Coronary artery disease with recent stent of the RCA due to recent in-stent restenosis. Patient has had previous multiple cardiac stents to the RCA and mid LAD, obtuse marginal branch. Continue patient on aspirin 81 mg daily, Lopresso r 25 mg twice daily, Atorvastatin 80 mg po daily . 4. Diabetes mellitus type 2, we will continue Lantus 46 units units at bedtime, along with a sliding scale insulin, continue with Humalog 12 units before each meal along with pioglitazone 30 mg once every day, continue Farxiga 10 mg once every day . 5. Mixed hyperlipidemia. Hold atorvastatin due to the interaction with daptomycin for now, monitor the patient at bedtime, keep LDL 55-70. 6. Chronic DVT and PEs. Continue patient on eliquis 5 mg twice daily. 7. Hypertension and hypertensive cardiovascular disease. Continue metoprolol 25 mg orally twice every day. Monitor the patient blood pressure very closely. 8. Gastroesophageal reflux disease and GI prophylaxis. Continue Pantoprazole 40 mg daily 9. Diabetic neuropathy. we will continue wit Gabapentin 400 mg po tid. 10. Generalized anxiety disorder, recurrent depression. Continue Cymbalta 60 mg po daily. 11. DVT prophylaxis. Continue Eliquis 5 mg po bid 12. GI prophylaxis. Continue patient on pantoprazole 40 mg once every day 13. Hypomagnesemia status post replacement. 14. Physical therapy evaluation 15. 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 16. Patient is full code. Objective - Vital Signs Vital signs: Vital Signs Temp 97.3 F L 10/08/24 12:02 Pulse 71 10/08/24 12:02 Resp 18 10/08/24 12:02 BP 110/63 10/08/24 12:02 Pulse Ox 98 10/08/24 12:02 FiO2 Intake & Output 10/07/24 10/08/24 10/08/24 18:59 06:59 18:59 Intake Total 901 1000 Output Total 1205 400 Balance -304 600 Intake: IV 901 Intake, IV Titration 1000 Amount Magnesium Sulfate-D5w Pmx 100 1 gm In Dextrose/Water 1 100ml.bag @ 100 mls/hr IVPB Q1H [facility] Rx#: [id number] Sodium Chloride 0.9% 1, 900 000 ml @ 75 mls/hr IV . [id number] [facility] Rx#:[id number] Output: Urine 1200 400 Estimated Blood Loss 5 Other: Voiding Method External Catheter External Catheter - Labs CBC & Chem 7: 10/09/24 03:43 10/09/24 03:43 Labs: Abnormal Lab Results - Last 24 Hours (Table) 10/07/24 10/07/24 10/07/24 Range/Units 16:21 17:07 17:50 RBC (4.10-5.20) X 10*6/uL Hgb 11.1 L (11.4-16.0) gm/dL Hct (37.2-46.3) % MCH 23.8 L (25.0-35.0) pg MCHC 28.4 L (31.0-37.0) g/dL RDW 17.1 H (11.5-15.5) % Immature Gran # (0.00-0.04) X 10*3/uL Neutrophils # (1.80-7.70) X 10*3/uL Lymphocytes # 0.4 L (1.0-4.8) k/uL Eosinophils # (0.04-0.35) X 10*3/uL Glucose (74-99) mg/dL POC Glucose (mg/dL) 202 H 191 H (70-110) mg/dL Calcium (8.4-10.2) mg/dL C-Reactive Protein (0.00-0.80) mg/dL Total Protein (6.3-8.2) g/dL Albumin (3.5-5.0) g/dL 10/07/24 10/07/24 10/08/24 Range/Units 17:50 20:48 04:04 RBC 3.72 L (4.10-5.20) X 10*6/uL Hgb 8.6 L (11.4-16.0) gm/dL Hct 30.6 L (37.2-46.3) % MCH 23.1 L (25.0-35.0) pg MCHC 28.1 L (31.0-37.0) g/dL RDW 18.2 H (11.5-15.5) % Immature Gran # 0.14 H (0.00-0.04) X 10*3/uL Neutrophils # 8.81 H (1.80-7.70) X 10*3/uL Lymphocytes # 0.57 L (1.0-4.8) k/uL Eosinophils # 0.02 L (0.04-0.35) X 10*3/uL Glucose 213 H (74-99) mg/dL POC Glucose (mg/dL) 334 H (70-110) mg/dL Calcium 8.1 L (8.4-10.2) mg/dL C-Reactive Protein (0.00-0.80) mg/dL Total Protein 5.5 L (6.3-8.2) g/dL Albumin 2.3 L (3.5-5.0) g/dL 10/08/24 10/08/24 10/08/24 Range/Units 04:04 07:06 12:07 RBC (4.10-5.20) X 10*6/uL Hgb (11.4-16.0) gm/dL Hct (37.2-46.3) % MCH (25.0-35.0) pg MCHC (31.0-37.0) g/dL RDW (11.5-15.5) % Immature Gran # (0.00-0.04) X 10*3/uL Neutrophils # (1.80-7.70) X 10*3/uL Lymphocytes # (1.0-4.8) k/uL Eosinophils # (0.04-0.35) X 10*3/uL Glucose 262 H (74-99) mg/dL POC Glucose (mg/dL) 246 H 184 H (70-110) mg/dL Calcium 8.4 L (8.4-10.2) mg/dL C-Reactive Protein 16.00 H (0.00-0.80) mg/dL Total Protein (6.3-8.2) g/dL Albumin (3.5-5.0) g/dL Microbiology - Last 24 Hours (Table) 10/05/24 14:25 Gram Stain - Final Hip - Left Wound Culture - Final Methicillin resist S. aureus 10/05/24 14:14 Blood Culture Gram Stain - Preliminary Blood Blood Culture - Preliminary Presumptive MRSA Molecular ID 10/05/24 14:15 Blood Culture - Preliminary Blood 10/05/24 14:25 Anaerobic Culture - Preliminary Hip - Left Prevotella sp (Bacteroides)
[2024-10-09 17:21] LABS: Glucose,Whole Blood 62 mg/dL (70-110)
[2024-10-09] MEDS: IRON POLYSACCHARIDES COMPLEX 150 MG CAP PO SCH (17:35)
--- NOTE | 2024-10-09 17:35 | CDI ---
Documentation Clarification Form Date: 10/09/2024 05:33PM From: Mary Arnold RN CCDS Phone: [phone] Admit Date: 10/05/2024 02:32:00 PM Patient Name: Courtney Ybarra Visit Number: [id number] Discharge Date: ATTENTION: The Clinical Documentation Specialists (CDI) and [facility] Coding Staff appreciate your assistance in clarifying documentation. Please respond to the clarification below the line at the bottom and electronically sign. The CDI & [facility] Coding staff will review the response and follow-up if needed. Please note: Queries are made part of the Legal Health Record. If you have any questions, please contact the author of this message via ITS. Doctor: Tramaine Tejeda There is documentation of bacteremia [insert documentation, date, location]. Bacteremia is considered a lab finding. Additional clarification regarding bacteremia is requested. Patient history/risk factors: 64 year old female presents to the ED for generalized weakness not able to ambulate or transfer herself. Medical History: 09/14 bilateral femoral thromboendarterectomy with femorofemoral bypass. CAD, PAD, Right great toe osteomyelitis status post amputation, CVA, HTN, COPD, DM2, GI bleed secondary to antral gastritis and esophagitis. 10/05 HP Clinical Indicators: VSS, 10/06: B/P 129/66; HR 69; Temp 99.2F Oral; RR 16; SpO2 97% room air Labs 10/05: Wbc 14.0; Neutrophils 12.0 Blood Culture: Methicillin resist S aureus Molecular ID Finalized 10/09 Left hip Wound culture: Methicillin resistant Staphylococcus aureus ID progress note: 10/09 Blood culture positive for MRSA local growing MRSA as well as bacteroids patient is covered with the Daptomycin and Flagyl, however once the patient cleared for bacteremia we will order PICC line for outpatient IV antibiotic Treatment: 10/05 Dakins cleanse left inguinal wound followed by dressing change Antibiotics: 10/05 Cefepime IVPB x 1; 10/06 10/07 Cefepime IVPB Q8H, 10/07 Flaygl PO TID; Daptomycin IVPB Q24H ID Consult above Please provide additional clarification regarding the etiology/cause and/or clinical significance of the bacteremia: [ X] Bacteremia is due to infectious process, please specify: MRSA due to infected surgical site left groin post Fem-Fem bypass [ ] Bacteremia is not clinically significant [ ] Other, please specify [ ] Unable to determine (Template Last Revised: October 2020) MTDD
[2024-10-09 17:42] LABS: Glucose,Whole Blood 69 mg/dL (70-110)
[2024-10-09] MEDS: DEXTROSE 50% SYRINGE 50 ML IVP STA (18:06)
[2024-10-09 18:20] LABS: Glucose,Whole Blood 59 mg/dL (70-110)
[2024-10-09 18:23] LABS: Glucose,Whole Blood 184 mg/dL (70-110)
[2024-10-09 19:57] LABS: Glucose,Whole Blood 188 mg/dL (70-110)
[2024-10-10 07:13] LABS: Glucose,Whole Blood 112 mg/dL (70-110)
--- NOTE | 2024-10-10 09:25 | P.PN ---
Subjective Progress Note Date: 10/09/24 HISTORY OF PRESENT ILLNESS This is a 64-year-old female patient of mine with history of CAD with multiple cardiac stents in mid RCA, mid LAD, obtuse marginal branch and followed by Dr. Bill closely, peripheral artery disease with previous stenting done as well has amputation of the right great toe secondary to osteomyelitis, CVA with no residual deficits, hypertension, COPD, diabetes mellitus type 2, previous multiple DVT and PE requiring chronic anticoagulation on eliquis, history of GI bleed secondary to antral gastritis, esophagitis, vitamin D deficiency, history of left humerus fracture, history of PAD post right AKA and CAD post PCI of the RCA with intermediate disease of the LAD, patient underwent bilateral femoral thromboendarterectomy with femorofemoral bypass that was done successfully by Dr. Pardo on 09/14/2024 and the patient was discharged home was doing fine, tell last Saturday when she developed to have a significant diarrheal illness, associated with generalized fatigue and weakness not able to do anything, was not able to keep anything down, was supposed to go to see Dr. Pardo on for follow-up, but she could not make it because she was extremely weak and her son was not available to take her patient apparently stayed at home until her son came and and she ended up calling 911 for the patient to be brought into the emergency department because of generalized weakness not able to ambulate, and transfer herself, she ended up coming to the emergency department because of significant erythema and drainage from the left groin area where the surgical incision was done, there was concerns about infection in that area, patient was started on cefepime 2 g piggyback every 8 hours, daptomycin 350 mg IV piggyback every 24 hours, blood culture, x 2, wound culture aerobic and anaerobic, vascular surgery consultation as well as infectious disease consultation was obtained, patient also was found to have a severe hypokalemia, she will be replaced per protocol, she will be given a total of 120 mill equivalent of potassium today repeat CMP tomorrow morning. I will repeat her potassium this evening. 3/4: Patient is laying down in bed in minimal distress, she complains of increased pain in the left groin area, she continues to have a lot of drainage from the wound, she was seen earlier by vascular surgery who recommended to go for a washout of the wound, possible wound VAC placement later on today, patient blood glucose over was quite elevated, she did not receive her long-acting yesterday, I placed the patient on her sliding scale insulin plus her regular dose of insulin, will follow-up with the patient very closely, repeat laboratory evaluation in the next 24 hours. 10/07: Patient underwent washout of the left groin area with pressure lavage and wound VAC placement successfully by Dr. Pardo, she was seen in her room, she just got up from the recovery room, she is getting Dilaudid for pain control, she denies any chest pain, shortness of breath at this time, her son was at bedside, he was updated about her current condition, she remains on daptomycin due to methicillin-resistant Staphylococcus aureus, physical therapy evaluation in the next 24 hours, continue current pain management, continue aggressive pulmonary toileting, follow-up with labs in the morning 10/08: Patient is laying down in bed in no apparent distress, she denies any chest pain at this time, she has no shortness of breath at this time she denies any abdominal pain nausea vomiting or diarrhea, she continues to be on daptomycin due to methicillin-resistant Staphylococcus aureus, patient is not enjoying the food, and she is feeling a bit nauseated, she is controlling her pain very well, has been having the wound VAC in place, we will continue follow-up with the patient very closely, 10/09: Patient continue to be laying down in bed in no apparent distress, she feeling better today, she continues to have a poor appetite, her blood cultures positive for methicillin-resistant Staphylococcus aureus currently on daptomycin, infectious disease following, vascular surgery following, continue to have a wound VAC in place, we will continue to work with the patient very closely, laboratory evaluation is better and her hemoglobin is down a bit at 7.8, transfuse for hemoglobin less than 7, start the patient on iron 325 mg ora lly twice every day. REVIEW OF SYSTEMS Constitutional: No fever, No chills, no night sweats. Reports no weight loss. Reports weakness, Reports fatigue no lethargy. NO daytime sleepiness. HEENT: No headache. No dizziness. No nasal drainage or congestion. No epistaxis. No sore throat. Lungs: No shortness of breath, no cough, no sputum production. No wheezing. Cardiovascular: No chest pain, no lower extremity edema. No palpitations. No paroxysmal nocturnal dyspnea. No orthopnea. No lightheadedness or dizziness. No syncopal episodes. Abdominal: Reports no abdominal pain. Reports nausea, no vomiting. no diarrhea. No constipation. No bloody or tarry stools. good appetite. Genitourinary: No dysuria, increased frequency, urgency. No urinary retention. Musculoskeletal: No myalgias. positive for muscle weakness, reports balance issues. Integumentary: Right AKA , left lower extremity is intact, pulses by Doppler, left groin with the wound VAC. Neurologic: No aphasia. No facial droop. No change in mentation. No head injury. No headache. No paralysis. No paresthesia. Psychiatric: Reports depression. Reports anxiety. No mood swings. Endocrine: abnormal blood sugars. positive for weight change. No excessive sweating or thirst. No cold intolerance. PHYSICAL EXAMINATION Gen: This is a 64-year-old female. She is resting in bed i no acute distress HEENT: Head is atraumatic, normocephalic. Pupils equal, round. Sclerae is anicteric. Mucous members of the mouth are somewhat dry. NECK: Supple. No JVD. No lymphadenopathy. No thyromegaly. LUNGS: Clear to auscultation. No wheezes or rhonchi. No intercostal retractions. 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 ABDOMEN: Soft, non tender non distended and no rebound or guarding positive bowel sounds EXTREMITIES: Right above-knee amputation , left lower extremity is intact. Left groin area with wound VAC in place and minimal tenderness. NEUROLOGICAL: Patient is awake, alert and oriented x3. Cranial nerves 2 through 12 are grossly intact muscle power were 4 out of 5 in upper extremity is, and 3 out of 5 in the left lower extremity. She does have a right above-knee amputa tion. ASSESSMENT AND PLAN 1. Postoperative day #3 status post left groin wound washout with the pulse lavage and wound VAC placement. Follow-up higher femorofemoral bypass using PTFE. Continue patient on daptomycin since the patient culture is showing methicillin-resistant Staphylococcus aureus, continue metronidazole 500 mg orally 3 times every day infectious and vascular surgery are following continue current pain management, follow-up with the patient very closely. 2. MRSA bacteremia due to infected left femoral-femoral bypass wound. Continue IV antibiotic, repeat blood culture, monitor the patient very closely, patient may need to have his echocardiogram for evaluation if persistent MRSA bacteremia. 3. Coronary artery disease with recent stent of the RCA due to recent in-stent restenosis. Patient has had previous multiple cardiac stents to the RCA and mid LAD, obtuse marginal branch. Continue patient on aspirin 81 mg daily, Lopressor 25 mg twice daily, Atorvastatin 80 mg po daily . 4. Diabetes mellitus type 2, we will continue Lantus 46 units units at bedtime, along with a sliding scale insulin, continue with Humalog 12 units before each meal along with pioglitazone 30 mg once every day, continue Farxiga 10 mg once every day . 5. Mixed hyperlipidemia. Hold atorvastatin due to the interaction with daptomycin for now, monitor the patient at bedtime, keep LDL 55-70. 6. Chronic DVT and PEs. Continue patient on eliquis 5 mg twice daily. 7. Hypertension and hypertensive cardiovascular disease. Continue metoprolol 25 mg orally twice every day. Monitor the patient blood pressure very closely. 8. Gastroesophageal reflux disease and GI prophylaxis. Continue Pantoprazole 40 mg daily 9. Diabetic neuropathy. we will continue wit Gabapentin 400 mg po tid. 10. Generalized anxiety disorder, recurrent depression. Continue Cymbalta 60 mg po daily. 11. DVT prophylaxis. Continue Eliquis 5 mg po bid 12. GI prophylaxis. Continue patient on pantoprazole 40 mg once every day 13. Hypomagnesemia status post replacement. 14. Physical therapy evaluation 15. culture room worker consultation for discharge planning. 16. Patient is full code. Objective - Vital Signs Vital signs: Vital Signs Temp 97.7 F 10/09/24 12:24 Pulse 69 10/09/24 12:24 Resp 16 10/09/24 12:24 BP 118/69 10/09/24 12:24 Pulse Ox 100 10/09/24 12:24 FiO2 Intake & Output 10/08/24 10/09/24 10/09/24 18:59 06:59 18:59 Intake Total 950 500 Output Total 300 400 Balance 650 100 Intake: Intake, IV Titration 950 Amount DAPTOmycin 500 mg In 50 Sodium Chloride 0.9% 50 ml @ 100 mls/hr IVPB Q24HR AGN[facility] Rx#:[id number] Sodium Chloride 0.9% 1, 900 000 ml @ 75 mls/hr IV . [id number] [facility] Rx#:[id number] Oral 500 Output: Urine 300 400 Other: Voiding Method External Catheter External Catheter # Bowel Movements 1 - Labs CBC & Chem 7: 10/09/24 03:43 10/09/24 03:43 Labs: Abnormal Lab Results - Last 24 Hours (Table) 10/08/24 10/08/24 10/08/24 Range/Units 04:04 17:13 20:01 WBC (4.50-10.00) X 10*3/uL RBC (4.10-5.20) X 10*6/uL Hgb (12.0-15.0) g/dL Hct (37.2-46.3) % MCH (27.0-32.0) pg MCHC (32.0-37.0) g/dL RDW (11.5-14.5) % Immature Gran # (0.00-0.04) X 10*3/uL Neutrophils # (1.80-7.70) X 10*3/uL NRBC/100 WBC Diff (0.00-0.01) X 10*3/uL ESR 93 H (0-30) mm/Hr Glucose (70-110) mg/dL POC Glucose (mg/dL) 122 H 256 H (70-110) mg/dL Calcium (8.7-10.3) mg/dL Total Bilirubin (0.3-1.2) mg/dL ALT (8-44) U/L Total Protein (6.2-8.2) g/dL Albumin (3.8-4.9) g/dL Albumin/Globulin Ratio (1.60-3.17) Ratio 10/09/24 10/09/24 10/09/24 Range/Units 03:43 03:43 08:10 WBC 12.59 H (4.50-10.00) X 10*3/uL RBC 3.30 L (4.10-5.20) X 10*6/uL Hgb 7.8 L (12.0-15.0) g/dL Hct 26.6 L (37.2-46.3) % MCH 23.6 L (27.0-32.0) pg MCHC 29.3 L (32.0-37.0) g/dL RDW 18.3 H (11.5-14.5) % Immature Gran # 0.22 H (0.00-0.04) X 10*3/uL Neutrophils # 10.52 H (1.80-7.70) X 10*3/uL NRBC/100 WBC Diff 0.02 H (0.00-0.01) X 10*3/uL ESR (0-30) mm/Hr Glucose 190 H (70-110) mg/dL POC Glucose (mg/dL) 190 H (70-110) mg/dL Calcium 8.2 L (8.7-10.3) mg/dL Total Bilirubin 0.2 L (0.3-1.2) mg/dL ALT <5 L (8-44) U/L Total Protein 5.0 L (6.2-8.2) g/dL Albumin 2.1 L (3.8-4.9) g/dL Albumin/Globulin Ratio 0.72 L (1.60-3.17) Ratio Microbiology - Last 24 Hours (Table) 10/08/24 04:09 Blood Culture - Preliminary Blood 10/05/24 14:25 Anaerobic Culture - Final Hip - Left Prevotella sp (Bacteroides) 10/05/24 14:14 Blood Culture Gram Stain - Final Blood Blood Culture - Final Methicillin resist S. aureus Molecular ID 10/05/24 14:15 Blood Culture - Preliminary Blood
[2024-10-10 09:45] LABS: Basophils # (A) 0.06 X 10*3/uL (0.00-0.10); Basophils % (A) 0.5 %; Eosinophils # (A) 0.46 X 10*3/uL (0.04-0.35); Eosinophils % (A) 3.6 %; HCT 28.6 % (37.2-46.3); HGB 8.1 g/dL (12.0-15.0); Lymphocytes # (A) 1.39 X 10*3/uL (0.90-5.00); Lymphocytes % (A) 10.7 %; MCH 23.5 pg (27.0-32.0); MCHC 28.3 g/dL (32.0-37.0); MCV 83.1 FL (80.0-97.0); Mean Platelet Volume 11.7 FL (9.5-12.2); Monocytes # (A) 0.69 X 10*3/uL (0.20-1.00); Monocytes % (A) 5.3 %; NRBC Per 100 WBC 0.02 X 10*3/uL (0.00-0.01); Neutrophils # (A) 10.06 X 10*3/uL (1.80-7.70); Neutrophils % (A) 77.7 %; Platelet Count 323 X 10*3/uL (140-440); RBC 3.44 X 10*6/uL (4.10-5.20); RDW 18.6 % (11.5-14.5); WBC 12.94 X 10*3/uL (4.50-10.00)
--- NOTE | 2024-10-10 11:15 | P.PN ---
Subjective Progress Note Date: 10/10/24 HISTORY OF PRESENT ILLNESS This is a 64-year-old female patient of mine with history of CAD with multiple cardiac stents in mid RCA, mid LAD, obtuse marginal branch and followed by Dr. Bill closely, peripheral artery disease with previous stenting done as well has amputation of the right great toe secondary to osteomyelitis, CVA with no residual deficits, hypertension, COPD, diabetes mellitus type 2, previous multiple DVT and PE requiring chronic anticoagulation on eliquis, history of GI bleed secondary to antral gastritis, esophagitis, vitamin D deficiency, history of left humerus fracture, history of PAD post right AKA and CAD post PCI of the RCA with intermediate disease of the LAD, patient underwent bilateral femoral thromboendarterectomy with femorofemoral bypass that was done successfully by Dr. Pardo on 09/14/2024 and the patient was discharged home was doing fine, tell last Saturday when she developed to have a significant diarrheal illness, associated with generalized fatigue and weakness not able to do anything, was not able to keep anything down, was supposed to go to see Dr. Pardo on for follow-up, but she could not make it because she was extremely weak and her son was not available to take her patient apparently stayed at home until her son came and and she ended up calling 911 for the patient to be brought into the emergency department because of generalized weakness not able to ambulate, and transfer herself, she ended up coming to the emergency department because of significant erythema and drainage from the left groin area where the surgical incision was done, there was concerns about infection in that area, patient was started on cefepime 2 g piggyback every 8 hours, daptomycin 350 mg IV piggyback every 24 hours, blood culture, x 2, wound culture aerobic and anaerobic, vascular surgery consultation as well as infectious disease consultation was obtained, patient also was found to have a severe hypokalemia, she will be replaced per protocol, she will be given a total of 120 mill equivalent of potassium today repeat CMP tomorrow morning. I will repeat her potassium this evening. 3/4: Patient is laying down in bed in minimal distress, she complains of increased pain in the left groin area, she continues to have a lot of drainage from the wound, she was seen earlier by vascular surgery who recommended to go for a washout of the wound, possible wound VAC placement later on today, patient blood glucose over was quite elevated, she did not receive her long-acting yesterday, I placed the patient on her sliding scale insulin plus her regular dose of insulin, will follow-up with the patient very closely, repeat laboratory evaluation in the next 24 hours. 10/07: Patient underwent washout of the left groin area with pressure lavage and wound VAC placement successfully by Dr. Pardo, she was seen in her room, she just got up from the recovery room, she is getting Dilaudid for pain control, she denies any chest pain, shortness of breath at this time, her son was at bedside, he was updated about her current condition, she remains on daptomycin due to methicillin-resistant Staphylococcus aureus, physical therapy evaluation in the next 24 hours, continue current pain management, continue aggressive pulmonary toileting, follow-up with labs in the morning 10/08: Patient is laying down in bed in no apparent distress, she denies any chest pain at this time, she has no shortness of breath at this time she denies any abdominal pain nausea vomiting or diarrhea, she continues to be on daptomycin due to methicillin-resistant Staphylococcus aureus, patient is not enjoying the food, and she is feeling a bit nauseated, she is controlling her pain very well, has been having the wound VAC in place, we will continue follow-up with the patient very closely, 10/09: Patient continue to be laying down in bed in no apparent distress, she feeling better today, she continues to have a poor appetite, her blood cultures positive for methicillin-resistant Staphylococcus aureus currently on daptomycin, infectious disease following, vascular surgery following, continue to have a wound VAC in place, we will continue to work with the patient very closely, laboratory evaluation is better and her hemoglobin is down a bit at 7.8, transfuse for hemoglobin less than 7, start the patient on iron 325 mg ora lly twice every day. 10/10: Patient is feeling a bit better today, she has no fever or chills, she co ntinues to have significant pain in the left groin area, she has the wound VAC in place, she continues to be on daptomycin, repeated blood culture still pending the time decrease her IV fluid to KVO, continue to work with physical therapy, patient would like to go eventually home with home PT as well as home IV antibiotic we will continue to follow-up with the patient very closely at this time. REVIEW OF SYSTEMS Constitutional: No fever, No chills, no night sweats. Reports no weight loss. Reports weakness, Reports fatigue no lethargy. NO daytime sleepiness. HEENT: No headache. No dizziness. No nasal drainage or congestion. No epistaxis. No sore throat. Lungs: No shortness of breath, no cough, no sputum production. No wheezing. Cardiovascular: No chest pain, no lower extremity edema. No palpitations. No paroxysmal nocturnal dyspnea. No orthopnea. No lightheadedness or dizziness. No syncopal episodes. Abdominal: Reports no abdominal pain. Reports nausea, no vomiting. no diarrhea. No constipation. No bloody or tarry stools. good appetite. Genitourinary: No dysuria, increased frequency, urgency. No urinary retention. Musculoskeletal: No myalgias. positive for muscle weakness, reports balance issues. Integumentary: Right AKA , left lower extremity is intact, pulses by Doppler, left groin with the wound VAC. Neurologic: No aphasia. No facial droop. No change in mentation. No head injury. No headache. No paralysis. No paresthesia. Psychiatric: Reports depression. Reports anxiety. No mood swings. Endocrine: abnormal blood sugars. positive for weight change. No excessive sweating or thirst. No cold intolerance. PHYSICAL EXAMINATION Gen: This is a 64-year-old female. She is resting in bed i no acute distress HEENT: Head is atraumatic, normocephalic. Pupils equal, round. Sclerae is anicteric. Mucous members of the mouth are somewhat dry. NECK: Supple. No JVD. No lymphadenopathy. No thyromegaly. LUNGS: Clear to auscultation. No wheezes or rhonchi. No intercostal retractio ns. 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 ABDOMEN: Soft, non tender non distended and no rebound or guarding positive bowel sounds EXTREMITIES: Right above-knee amputation , left lower extremity is intact. Left groin area with wound VAC in place and minimal tenderness. NEUROLOGICAL: Patient is awake, alert and oriented x3. Cranial nerves 2 through 12 are grossly intact muscle power were 4 out of 5 in upper extremity is, and 3 out of 5 in the left lower extremity. She does have a right above-knee amputation. ASSESSMENT AND PLAN 1. Postoperative day #4 status post left groin wound washout with the pulse lavage and wound VAC placement. Follow-up higher femorofemoral bypass using PTFE. Continue patient on daptomycin since the patient culture is showing methicillin-resistant Staphylococcus aureus, continue metronidazole 500 mg orally 3 times every day infectious and vascular surgery are following continue current pain management, follow-up with the patient very closely. Decrease IV fluid to KVO. 2. MRSA bacteremia due to infected left femoral-femoral bypass wound. Continue IV antibiotic, repeat blood culture, monitor the patient very closely,repeated cultures after the daptomycin so far no growth in 24 hours 3. Coronary artery disease with recent stent of the RCA due to recent in-stent restenosis. Patient has had previous multiple cardiac stents to the RCA and mid LAD, obtuse marginal branch. Continue patient on aspirin 81 mg daily, Lopressor 25 mg twice daily, Atorvastatin 80 mg po daily . 4. Diabetes mellitus type 2, we will continue Lantus 46 units units at bedtime, along with a sliding scale insulin, continue with with pioglitazone 30 mg once every day, continue Farxiga 10 mg once every day . 5. Mixed hyperlipidemia. Hold atorvastatin due to the interaction with daptomycin for now, monitor the patient at bedtime, keep LDL 55-70. 6. Chronic DVT and PEs. Continue patient on eliquis 5 mg twice daily. 7. Hypertension and hypertensive cardiovascular disease. Continue metoprolol 25 mg orally twice every day. Monitor the patient blood pressure very closely. 8. Gastroesophageal reflux disease and GI prophylaxis. Continue Pantoprazole 40 mg daily 9. Diabetic neuropathy. we will continue wit Gabapentin 400 mg po tid. 10. Generalized anxiety disorder, recurrent depression. Continue Cymbalta 60 mg po daily. 11. DVT prophylaxis. Continue Eliquis 5 mg po bid 12. GI prophylaxis. Continue patient on pantoprazole 40 mg once every day 13. Hypomagnesemia status post replacement. 14. Physical therapy evaluation 15. bakery worker conveyor line consultation for discharge planning. 16. Patient is full code. Objective - Vital Signs Vital signs: Vital Signs Temp 98 F 10/10/24 07:06 Pulse 71 10/10/24 07:06 Resp 15 10/10/24 07:06 BP 123/73 10/10/24 07:06 Pulse Ox 94 L 10/10/24 07:06 FiO2 Intake & Output 10/09/24 10/10/24 10/10/24 18:59 06:59 18:59 Intake Total 650 Output Total 200 450 Balance -200 200 Intake: Oral 650 Output: Drainage 50 Left Groin 50 Urine 200 400 Other: Voiding Method External Catheter External Catheter External Catheter # Bowel Movements 1 - Labs CBC & Chem 7: 10/10/24 03:23 10/09/24 03:43 Labs: Abnormal Lab Results - Last 24 Hours (Table) 10/09/24 10/09/24 10/09/24 Range/Units 17:13 17:41 18:01 POC Glucose (mg/dL) 62 L 69 L 59 L (70-110) mg/dL 10/09/24 10/09/24 10/10/24 Range/Units 18:22 19:56 07:06 POC Glucose (mg/dL) 184 H 188 H 112 H (70-110) mg/dL Microbiology - Last 24 Hours (Table) 10/08/24 04:09 Blood Culture - Preliminary Blood 10/05/24 14:25 Anaerobic Culture - Final Hip - Left Prevotella sp (Bacteroides)
--- NOTE | 2024-10-10 11:17 | P.PN ---
Subjective Progress Note Date: 10/10/24 Principal diagnosis: Postoperative wound infection. Patient complains of some discomfort mostly in the left inguinal area although tracking a bit toward the midline. Objective - Vital Signs Vital signs: Vital Signs Temp 98 F 10/10/24 07:06 Pulse 71 10/10/24 07:06 Resp 15 10/10/24 07:06 BP 123/73 10/10/24 07:06 Pulse Ox 94 L 10/10/24 07:06 FiO2 Intake & Output 10/09/24 10/10/24 10/10/24 18:59 06:59 18:59 Intake Total 650 Output Total 200 450 Balance -200 200 Intake: Oral 650 Output: Drainage 50 Left Groin 50 Urine 200 400 Other: Voiding Method External Catheter External Catheter External Catheter # Bowel Movements 1 - Exam Patient is awake and alert. Wound VAC is in place in the left inguinal area. No evidence of cellulitis. Subjective tenderness along the course of the graft toward the midline. I discussed with the patient possible rotational flap performed by Dr. Ayala of plastic surgery. He will see the patient Saturday. I also discussed that should this infectious process not be able to be cleared she will need a repeat surgical procedure to replace the PTFE graft with a cadaveric vessel. Will continue with IV antibiotics and local wound care for the moment. All questions were answered patient's satisfaction. - Labs CBC & Chem 7: 10/10/24 03:23 10/09/24 03:43 Labs: Abnormal Lab Results - Last 24 Hours (Table) 10/09/24 10/09/24 10/09/24 Range/Units 17:13 17:41 18:01 WBC (4.50-10.00) X 10*3/uL RBC (4.10-5.20) X 10*6/uL Hgb (12.0-15.0) g/dL Hct (37.2-46.3) % MCH (27.0-32.0) pg MCHC (32.0-37.0) g/dL RDW (11.5-14.5) % Immature Gran # (0.00-0.04) X 10*3/uL Neutrophils # (1.80-7.70) X 10*3/uL Eosinophils # (0.04-0.35) X 10*3/uL NRBC/100 WBC Diff (0.00-0.01) X 10*3/uL POC Glucose (mg/dL) 62 L 69 L 59 L (70-110) mg/dL 10/09/24 10/09/24 10/10/24 Range/Units 18:22 19:56 03:23 WBC 12.94 H (4.50-10.00) X 10*3/uL RBC 3.44 L (4.10-5.20) X 10*6/uL Hgb 8.1 L (12.0-15.0) g/dL Hct 28.6 L (37.2-46.3) % MCH 23.5 L (27.0-32.0) pg MCHC 28.3 L (32.0-37.0) g/dL RDW 18.6 H (11.5-14.5) % Immature Gran # 0.28 H (0.00-0.04) X 10*3/uL Neutrophils # 10.06 H (1.80-7.70) X 10*3/uL Eosinophils # 0.46 H (0.04-0.35) X 10*3/uL NRBC/100 WBC Diff 0.02 H (0.00-0.01) X 10*3/uL POC Glucose (mg/dL) 184 H 188 H (70-110) mg/dL 10/10/24 Range/Units 07:06 WBC (4.50-10.00) X 10*3/uL RBC (4.10-5.20) X 10*6/uL Hgb (12.0-15.0) g/dL Hct (37.2-46.3) % MCH (27.0-32.0) pg MCHC (32.0-37.0) g/dL RDW (11.5-14.5) % Immature Gran # (0.00-0.04) X 10*3/uL Neutrophils # (1.80-7.70) X 10*3/uL Eosinophils # (0.04-0.35) X 10*3/uL NRBC/100 WBC Diff (0.00-0.01) X 10*3/uL POC Glucose (mg/dL) 112 H (70-110) mg/dL Microbiology - Last 24 Hours (Table) 10/08/24 04:09 Blood Culture - Preliminary Blood 10/05/24 14:25 Anaerobic Culture - Final Hip - Left Prevotella sp (Bacteroides)
[2024-10-10] MEDS: FUROSEMIDE 10 MG/ML 4 ML VIAL IV STA (11:29)
[2024-10-10] MEDS: POTASSIUM CHLORIDE ER 20 MEQ TAB.ER PO STA (11:29)
[2024-10-10 12:18] LABS: Glucose,Whole Blood 159 mg/dL (70-110)
[2024-10-10 13:29] LABS: ALT 6 U/L (8-44); AST 22 U/L (13-35); Albumin 2.1 g/dL (3.8-4.9); Albumin/Globulin Ratio 0.66 Ratio (1.60-3.17); Alkaline Phosphatase 101 U/L (41-126); Blood Urea Nitrogen 16.1 mg/dL (9.0-27.0); Calcium 8.2 mg/dL (8.7-10.3); Carbon Dioxide 21.5 mmol/L (21.6-31.8); Chloride 107 mmol/L (96-109); Globulin 3.2 g/dL (1.6-3.3); Glucose 130 mg/dL (70-110); Potassium 5.4 mmol/L (3.5-5.5); Sodium 138 mmol/L (135-145); Total Bilirubin <0.2 mg/dL (0.3-1.2); Total Protein 5.3 g/dL (6.2-8.2)
--- NOTE | 2024-10-10 13:50 | P.PN ---
Subjective Progress Note Date: 10/10/24 Principal diagnosis: Reason for follow-up is left groin infected wound Patient is a 64-year-old female with a past medical history significant for Coronary Artery Disease (CAD), Cancer, CVA/TIA, Diabetes Mellitus, Deep Vein Thrombosis (DVT), GERD/Reflux, Memory Impairment, Osteoarthritis (OA), Pulmonary Embolus (PE), Vascular Disorder who recently underwent bilateral common femoral artery thromboendarterectomy and femorofemoral bypass on 09/14/2024 presented to hospital with bilateral groin pain and draining wound to the left groin area has been diagnosed with surgical site infection prompted this consultation. Patient did have left groin washout and placement of wound VAC procedure completed on 10/07/2024. On today's evaluation that is 10/10/2024, patient did not have any fever and denies any chills, patient is breathing comfortably on room air, patient with no chest pain or cough patient did not have any abdominal pain nausea vomiting or any loose stools still complain of some discomfort to the left groin area. Patient white count is 12.94, creatinine is 1.0 blood culture repeat has been negative so far Objective - Vital Signs Vital signs: Vital Signs Temp 98 F 10/10/24 07:06 Pulse 71 10/10/24 07:06 Resp 15 10/10/24 07:06 BP 123/73 10/10/24 07:06 Pulse Ox 94 L 10/10/24 07:06 FiO2 Intake & Output 10/09/24 10/10/24 10/10/24 18:59 06:59 18:59 Intake Total 650 Output Total 466 606 3010 Balance -200 200 -1000 Intake: Oral 650 Output: Drainage 50 Left Groin 50 Urine 992 273 4845 Other: Voiding Method External Catheter External Catheter External Catheter # Bowel Movements 1 - Exam GENERAL DESCRIPTION: Middle-age female e lying in bed in no distress RESPIRATORY SYSTEM: Unlabored breathing , decreased breath sounds at bases HEART: S1 S2 regular rate and rhythm , ABDOMEN: Soft , no tenderness EXTREMITIES: Left groin currently covered with a wound VAC - Labs CBC & Chem 7: 10/10/24 03:23 10/10/24 03:23 Labs: Abnormal Lab Results - Last 24 Hours (Table) 10/09/24 10/09/24 10/09/24 Range/Units 17:13 17:41 18:01 WBC (4.50-10.00) X 10*3/uL RBC (4.10-5.20) X 10*6/uL Hgb (12.0-15.0) g/dL Hct (37.2-46.3) % MCH (27.0-32.0) pg MCHC (32.0-37.0) g/dL RDW (11.5-14.5) % Immature Gran # (0.00-0.04) X 10*3/uL Neutrophils # (1.80-7.70) X 10*3/uL Eosinophils # (0.04-0.35) X 10*3/uL NRBC/100 WBC Diff (0.00-0.01) X 10*3/uL POC Glucose (mg/dL) 62 L 69 L 59 L (70-110) mg/dL 10/09/24 10/09/24 10/10/24 Range/Units 18:22 19:56 03:23 WBC 12.94 H (4.50-10.00) X 10*3/uL RBC 3.44 L (4.10-5.20) X 10*6/uL Hgb 8.1 L (12.0-15.0) g/dL Hct 28.6 L (37.2-46.3) % MCH 23.5 L (27.0-32.0) pg MCHC 28.3 L (32.0-37.0) g/dL RDW 18.6 H (11.5-14.5) % Immature Gran # 0.28 H (0.00-0.04) X 10*3/uL Neutrophils # 10.06 H (1.80-7.70) X 10*3/uL Eosinophils # 0.46 H (0.04-0.35) X 10*3/uL NRBC/100 WBC Diff 0.02 H (0.00-0.01) X 10*3/uL POC Glucose (mg/dL) 184 H 188 H (70-110) mg/dL 10/10/24 Range/Units 07:06 WBC (4.50-10.00) X 10*3/uL RBC (4.10-5.20) X 10*6/uL Hgb (12.0-15.0) g/dL Hct (37.2-46.3) % MCH (27.0-32.0) pg MCHC (32.0-37.0) g/dL RDW (11.5-14.5) % Immature Gran # (0.00-0.04) X 10*3/uL Neutrophils # (1.80-7.70) X 10*3/uL Eosinophils # (0.04-0.35) X 10*3/uL NRBC/100 WBC Diff (0.00-0.01) X 10*3/uL POC Glucose (mg/dL) 112 H (70-110) mg/dL Microbiology - Last 24 Hours (Table) 10/08/24 04:09 Blood Culture - Preliminary Blood 10/05/24 14:25 Anaerobic Culture - Final Hip - Left Prevotella sp (Bacteroides) Assessment and Plan (1) Allergy to vancomycin Current Visit: Yes Status: Acute Code(s): Z88.1 - ALLERGY STATUS TO OTHER ANTIBIOTIC AGENTS SNOMED Code(s): 278533995 (2) Wound infection after surgery Current Visit: No Status: Acute Code(s): T81.49XA - INFECTION FOLLOWING A PROCEDURE, OTHER SURGICAL SITE, INIT SNOMED Code(s): 91185773 (3) Leukocytosis Current Visit: No Status: Acute Code(s): D72.829 - ELEVATED WHITE BLOOD CELL COUNT, UNSPECIFIED SNOMED Code(s): 231201845 Plan: 1-patient presented to hospital with increasing pain to bilateral groin area and drainage from the left groin in this patient who recently did have bilateral common femoral artery thromboendarterectomy and femorofemoral bypass on 09/14/2024 now presenting with increasing pain swelling erythema and drainage concerning for surgical site of infection we will need to cover for resistant gram-positive as well as gram-negative pathogen. 2-patient with vancomycin allergy that will limit number of antibiotics safe to use. 3-patient is status post left groin washout and application of wound VAC placement completed on 10/07/2024 4blood culture positive for MRSA local culture growing MRSA as well as bactero ids, blood culture P has been negative so far 5patient is currently being treated with daptomycin and Flagyl question concern answered Dictation was produced using [employer] software. please excuse any grammatical, word or spelling errors. Time with Patient: Less than 30
[2024-10-10 17:28] LABS: Glucose,Whole Blood 164 mg/dL (70-110)
[2024-10-10 20:22] LABS: Glucose,Whole Blood 159 mg/dL (70-110)
[2024-10-11 03:16] LABS: Glucose,Whole Blood 151 mg/dL (70-110)
[2024-10-11 07:29] LABS: Glucose,Whole Blood 172 mg/dL (70-110)
[2024-10-11] MEDS: ERGOCALCIFEROL 1,250 MCG (50,000 IU) CAPSULE PO SCH (07:51)
[2024-10-11 09:29] LABS: Basophils # (A) 0.04 X 10*3/uL (0.00-0.10); Basophils % (A) 0.3 %; Eosinophils # (A) 0.66 X 10*3/uL (0.04-0.35); Eosinophils % (A) 4.9 %; HCT 28.7 % (37.2-46.3); HGB 8.2 g/dL (12.0-15.0); Lymphocytes # (A) 1.35 X 10*3/uL (0.90-5.00); Lymphocytes % (A) 10.1 %; MCH 23.4 pg (27.0-32.0); MCHC 28.6 g/dL (32.0-37.0); Mean Platelet Volume 11.6 FL (9.5-12.2); Monocytes % (A) 3.7 %; NRBC Per 100 WBC 0.03 X 10*3/uL (0.00-0.01); Neutrophils # (A) 10.52 X 10*3/uL (1.80-7.70); Neutrophils % (A) 78.7 %; Platelet Count 326 X 10*3/uL (140-440); RDW 18.6 % (11.5-14.5); WBC 13.38 X 10*3/uL (4.50-10.00)
[2024-10-11 10:17] LABS: ALT 7 U/L (8-44); AST 14 U/L (13-35); Albumin 2.2 g/dL (3.8-4.9); Albumin/Globulin Ratio 0.73 Ratio (1.60-3.17); Alkaline Phosphatase 98 U/L (41-126); BUN/Creat Ratio 13.73 Ratio (12.00-20.00); Blood Urea Nitrogen 15.1 mg/dL (9.0-27.0); Calcium 8.6 mg/dL (8.7-10.3); Carbon Dioxide 28.1 mmol/L (21.6-31.8); Chloride 103 mmol/L (96-109); Glucose 160 mg/dL (70-110); Magnesium 1.5 mg/dL (1.5-2.4); Potassium 5.4 mmol/L (3.5-5.5); Sodium 136 mmol/L (135-145); Total Bilirubin 0.2 mg/dL (0.3-1.2); Total Protein 5.2 g/dL (6.2-8.2)
--- NOTE | 2024-10-11 12:14 | P.PN ---
Subjective Progress Note Date: 10/11/24 HISTORY OF PRESENT ILLNESS This is a 64-year-old female patient of mine with history of CAD with multiple cardiac stents in mid RCA, mid LAD, obtuse marginal branch and followed by Dr. Bill closely, peripheral artery disease with previous stenting done as well has amputation of the right great toe secondary to osteomyelitis, CVA with no residual deficits, hypertension, COPD, diabetes mellitus type 2, previous multiple DVT and PE requiring chronic anticoagulation on eliquis, history of GI bleed secondary to antral gastritis, esophagitis, vitamin D deficiency, history of left humerus fracture, history of PAD post right AKA and CAD post PCI of the RCA with intermediate disease of the LAD, patient underwent bilateral femoral thromboendarterectomy with femorofemoral bypass that was done successfully by Dr. Pardo on 09/14/2024 and the patient was discharged home was doing fine, tell last Saturday when she developed to have a significant diarrheal illness, associated with generalized fatigue and weakness not able to do anything, was not able to keep anything down, was supposed to go to see Dr. Pardo on for follow-up, but she could not make it because she was extremely weak and her son was not available to take her patient apparently stayed at home until her son came and and she ended up calling 911 for the patient to be brought into the emergency department because of generalized weakness not able to ambulate, and transfer herself, she ended up coming to the emergency department because of significant erythema and drainage from the left groin area where the surgical incision was done, there was concerns about infection in that area, patient was started on cefepime 2 g piggyback every 8 hours, daptomycin 350 mg IV piggyback every 24 hours, blood culture, x 2, wound culture aerobic and anaerobic, vascular surgery consultation as well as infectious disease consultation was obtained, patient also was found to have a severe hypokalemia, she will be replaced per protocol, she will be given a total of 120 mill equivalent of potassium today repeat CMP tomorrow morning. I will repeat her potassium this evening. 3/4: Patient is laying down in bed in minimal distress, she complains of increased pain in the left groin area, she continues to have a lot of drainage from the wound, she was seen earlier by vascular surgery who recommended to go for a washout of the wound, possible wound VAC placement later on today, patient blood glucose over was quite elevated, she did not receive her long-acting yesterday, I placed the patient on her sliding scale insulin plus her regular dose of insulin, will follow-up with the patient very closely, repeat laboratory evaluation in the next 24 hours. 10/07: Patient underwent washout of the left groin area with pressure lavage and wound VAC placement successfully by Dr. Pardo, she was seen in her room, she just got up from the recovery room, she is getting Dilaudid for pain control, she denies any chest pain, shortness of breath at this time, her son was at bedside, he was updated about her current condition, she remains on daptomycin due to methicillin-resistant Staphylococcus aureus, physical therapy evaluation in the next 24 hours, continue current pain management, continue aggressive pulmonary toileting, follow-up with labs in the morning 10/08: Patient is laying down in bed in no apparent distress, she denies any chest pain at this time, she has no shortness of breath at this time she denies any abdominal pain nausea vomiting or diarrhea, she continues to be on daptomycin due to methicillin-resistant Staphylococcus aureus, patient is not enjoying the food, and she is feeling a bit nauseated, she is controlling her pain very well, has been having the wound VAC in place, we will continue follow-up with the patient very closely, 10/09: Patient continue to be laying down in bed in no apparent distress, she feeling better today, she continues to have a poor appetite, her blood cultures positive for methicillin-resistant Staphylococcus aureus currently on daptomycin, infectious disease following, vascular surgery following, continue to have a wound VAC in place, we will continue to work with the patient very closely, laboratory evaluation is better and her hemoglobin is down a bit at 7.8, transfuse for hemoglobin less than 7, start the patient on iron 325 mg ora lly twice every day. 10/10: Patient is feeling a bit better today, she has no fever or chills, she co ntinues to have significant pain in the left groin area, she has the wound VAC in place, she continues to be on daptomycin, repeated blood culture still pending the time decrease her IV fluid to KVO, continue to work with physical therapy, patient would like to go eventually home with home PT as well as home IV antibiotic we will continue to follow-up with the patient very closely at this time. 10/11: Patient continues to be afebrile at this point in time, she did have repeated blood culture that appears to be negative so far, patient is being treated for MRSA bacteremia due to infected left groin wound post femorofemoral bypass post washout of the wound and a wound VAC placed that was done 10/07/2024, will continue the same treatment plan since the patient is allergic to vancomycin she has been started on daptomycin as well as Flagyl due to bacteroids along with MRSA patient has been tolerated treatment very well, decrease IV fluid yesterday, patient was given a dose of Lasix yesterday because of increased swelling, continue physical therapy and Occupational Therapy I offered the patient to go to subacute rehabilitation however the patient is wanted to go home with a home antibiotic. REVIEW OF SYSTEMS Constitutional: No fever, No chills, no night sweats. Report groin wound status post femorofemoral bypasss no weight loss. Reports weakness, Reports fatigue no lethargy. NO daytime sleepiness. HEENT: No headache. No dizziness. No nasal drainage or congestion. No epistaxis. No sore throat. Lungs: No shortness of breath, no cough, no sputum production. No wheezing. Cardiovascular: No chest pain, no lower extremity edema. No palpitations. No paroxysmal nocturnal dyspnea. No orthopnea. No lightheadedness or dizziness. No syncopal episodes. Abdominal: Reports no abdominal pain. Reports nausea, no vomiting. no diarrhea. No constipation. No bloody or tarry stools. good appetite. Genitourinary: No dysuria, increased frequency, urgency. No urinary retention. Musculoskeletal: No myalgias. positive for muscle weakness, reports balance issues. Integumentary: Right AKA , left lower extremity is intact, pulses by Doppler, left groin with the wound VAC. Neurologic: No aphasia. No facial droop. No change in mentation. No head injury. No headache. No paralysis. No paresthesia. Psychiatric: Reports depression. Reports anxiety. No mood swings. Endocrine: abnormal blood sugars. positive for weight change. No excessive sweating or thirst. No cold intolerance. PHYSICAL EXAMINATION Gen: This is a 64-year-old female. She is resting in bed i no acute distress HEENT: Head is atraumatic, normocephalic. Pupils equal, round. Sclerae is anicteric. Mucous members of the mouth are somewhat dry. NECK: Supple. No JVD. No lymphadenopathy. No thyromegaly. LUNGS: Clear to auscultation. No wheezes or rhonchi. No intercostal retractions. 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 ABDOMEN: Soft, non tender non distended and no rebound or guarding positive bowel sounds EXTREMITIES: Right above-knee amputation , left lower extremity is intact. Left groin area with wound VAC in place and minimal tenderness. NEUROLOGICAL: Patient is awake, alert and oriented x3. Cranial nerves 2 through 12 are grossly intact muscle power were 4 out of 5 in upper extremity is, and 3 out of 5 in the left lower extremity. She does have a right above-knee amputation. ASSESSMENT AND PLAN 1. Postoperative day #5 status post left groin wound washout with the pulse lavage and wound VAC placement. Follow-up higher femorofemoral bypass using PTFE. Continue patient on daptomycin since the patient culture is showing methicillin-resistant Staphylococcus aureus, continue metronidazole 500 mg orally 3 times every day infectious and vascular surgery are following continue current pain management, follow-up with the patient very closely. Repeated blood cultures so far is negative 2. MRSA bacteremia due to infected left femoral-femoral bypass wound. Continue IV antibiotic, repeat blood culture, monitor the patient very closely,repeated cultures after the daptomycin, repeated blood culture so far negative. 3. Coronary artery disease with recent stent of the RCA due to recent in-stent restenosis. Patient has had previous multiple cardiac stents to the RCA and mid LAD, obtuse marginal branch. Continue patient on aspirin 81 mg daily, Lopressor 25 mg twice daily, Atorvastatin 80 mg po daily . 4. Diabetes mellitus type 2, we will continue Lantus 46 units units at bedtime, along with a sliding scale insulin, continue with with pioglitazone 30 mg once every day, continue Farxiga 10 mg once every day . 5. Mixed hyperlipidemia. Hold atorvastatin due to the interaction with daptomycin for now, monitor the patient at bedtime, keep LDL 55-70. 6. Chronic DVT and PEs. Continue patient on eliquis 5 mg twice daily. 7. Hypertension and hypertensive cardiovascular disease. Continue metoprolol 25 mg orally twice every day. Monitor the patient blood pressure very closely. 8. Gastroesophageal reflux disease and GI prophylaxis. Continue Pantoprazole 40 mg daily 9. Diabetic neuropathy. we will continue wit Gabapentin 400 mg po tid. 10. Generalized anxiety disorder, recurrent depression. Continue Cymbalta 60 mg po daily. 11. DVT prophylaxis. Continue Eliquis 5 mg po bid 12. GI prophylaxis. Continue patient on pantoprazole 40 mg once every day 13. Hypomagnesemia status post replacement. 14. Physical therapy evaluation 15. tnt powder worker consultation for discharge planning. 16. Patient is full code. Objective - Vital Signs Vital signs: Vital Signs Temp 98.3 F 10/11/24 07:20 Pulse 70 10/11/24 07:20 Resp 16 10/11/24 01:58 BP 137/70 10/11/24 07:20 Pulse Ox 94 L 10/11/24 07:20 FiO2 Intake & Output 10/10/24 10/11/24 10/11/24 17:59 06:59 18:59 Intake Total Output Total Balance Intake: Intake, IV Titration Amount DAPTOmycin 500 mg In Sodium Chloride 0.9% 50 ml @ 100 mls/hr IVPB Q24HR [facility] Rx#:[id number] Sodium Chloride 0.9% 1, 000 ml @ 10 mls/hr IV . Q24H [facility] Rx#:[id number] Oral Output: Drainage Left Groin Urine Other: Voiding Method External Catheter # Voids # Bowel Movements - Labs CBC & Chem 7: 10/11/24 04:42 10/10/24 03:23 Labs: Abnormal Lab Results - Last 24 Hours (Table) 10/10/24 10/10/24 10/10/24 Range/Units 03:23 03:23 12:17 WBC 12.94 H (4.50-10.00) X 10*3/uL RBC 3.44 L (4.10-5.20) X 10*6/uL Hgb 8.1 L (12.0-15.0) g/dL Hct 28.6 L (37.2-46.3) % MCH 23.5 L (27.0-32.0) pg MCHC 28.3 L (32.0-37.0) g/dL RDW 18.6 H (11.5-14.5) % Immature Gran # 0.28 H (0.00-0.04) X 10*3/uL Neutrophils # 10.06 H (1.80-7.70) X 10*3/uL Eosinophils # 0.46 H (0.04-0.35) X 10*3/uL NRBC/100 WBC Diff 0.02 H (0.00-0.01) X 10*3/uL Carbon Dioxide 21.5 L (21.6-31.8) mmol/L Glucose 130 H (70-110) mg/dL POC Glucose (mg/dL) 159 H (70-110) mg/dL Calcium 8.2 L (8.7-10.3) mg/dL Total Bilirubin <0.2 L (0.3-1.2) mg/dL ALT 6 L (8-44) U/L Total Protein 5.3 L (6.2-8.2) g/dL Albumin 2.1 L (3.8-4.9) g/dL Albumin/Globulin Ratio 0.66 L (1.60-3.17) Ratio 10/10/24 10/10/24 10/11/24 Range/Units 17:24 20:21 03:15 WBC (4.50-10.00) X 10*3/uL RBC (4.10-5.20) X 10*6/uL Hgb (12.0-15.0) g/dL Hct (37.2-46.3) % MCH (27.0-32.0) pg MCHC (32.0-37.0) g/dL RDW (11.5-14.5) % Immature Gran # (0.00-0.04) X 10*3/uL Neutrophils # (1.80-7.70) X 10*3/uL Eosinophils # (0.04-0.35) X 10*3/uL NRBC/100 WBC Diff (0.00-0.01) X 10*3/uL Carbon Dioxide (21.6-31.8) mmol/L Glucose (70-110) mg/dL POC Glucose (mg/dL) 164 H 159 H 151 H (70-110) mg/dL Calcium (8.7-10.3) mg/dL Total Bilirubin (0.3-1.2) mg/dL ALT (8-44) U/L Total Protein (6.2-8.2) g/dL Albumin (3.8-4.9) g/dL Albumin/Globulin Ratio (1.60-3.17) Ratio 10/11/24 10/11/24 Range/Units 04:42 07:19 WBC 13.38 H (4.50-10.00) X 10*3/uL RBC 3.50 L (4.10-5.20) X 10*6/uL Hgb 8.2 L (12.0-15.0) g/dL Hct 28.7 L (37.2-46.3) % MCH 23.4 L (27.0-32.0) pg MCHC 28.6 L (32.0-37.0) g/dL RDW 18.6 H (11.5-14.5) % Immature Gran # 0.31 H (0.00-0.04) X 10*3/uL Neutrophils # 10.52 H (1.80-7.70) X 10*3/uL Eosinophils # 0.66 H (0.04-0.35) X 10*3/uL NRBC/100 WBC Diff 0.03 H (0.00-0.01) X 10*3/uL Carbon Dioxide (21.6-31.8) mmol/L Glucose (70-110) mg/dL POC Glucose (mg/dL) 172 H (70-110) mg/dL Calcium (8.7-10.3) mg/dL Total Bilirubin (0.3-1.2) mg/dL ALT (8-44) U/L Total Protein (6.2-8.2) g/dL Albumin (3.8-4.9) g/dL Albumin/Globulin Ratio (1.60-3.17) Ratio Microbiology - Last 24 Hours (Table) 10/05/24 14:15 Blood Culture - Final Blood 10/08/24 04:09 Blood Culture - Preliminary Blood
[2024-10-11 12:17] LABS: Glucose,Whole Blood 248 mg/dL (70-110)
[2024-10-11] MEDS ORDERED: MORPHINE SULFATE 2 MG/ML SYRINGE IVP PRN (14:47)
--- NOTE | 2024-10-11 15:03 | P.PN ---
Subjective Progress Note Date: 10/11/24 Objective - Vital Signs Vital signs: Vital Signs Temp 98.6 F 10/11/24 12:47 Pulse 66 10/11/24 12:47 Resp 16 10/11/24 12:47 BP 135/72 10/11/24 12:47 Pulse Ox 95 10/11/24 12:47 FiO2 Intake & Output 10/10/24 10/11/24 10/11/24 17:59 06:59 18:59 Intake Total Output Total Balance Intake: Intake, IV Titration Amount DAPTOmycin 500 mg In Sodium Chloride 0.9% 50 ml @ 100 mls/hr IVPB Q24HR [facility] Rx#:[id number] Sodium Chloride 0.9% 1, 000 ml @ 10 mls/hr IV . Q24H [facility] Rx#:[id number] Oral Output: Drainage Left Groin Urine Other: Voiding Method External Catheter # Voids # Bowel Movements 3 - Exam Patient is awake and alert. Wound VAC is in place in the left inguinal area. No evidence of cellulitis. Subjective tenderness along the course of the graft toward the midline. I discussed with the patient possible rotational flap performed by Dr. Ayala of plastic surgery. He will see the patient Saturday. I also discussed that should this infectious process not be able to be cleared she will need a repeat surgical procedure to replace the PTFE graft with a cadaveric vessel. Will continue with IV antibiotics and local wound care for the moment. All questions were answered patient's satisfaction. - Labs CBC & Chem 7: 10/11/24 04:42 10/11/24 04:42 Labs: Abnormal Lab Results - Last 24 Hours (Table) 10/10/24 10/10/24 10/11/24 Range/Units 17:24 20:21 03:15 WBC (4.50-10.00) X 10*3/uL RBC (4.10-5.20) X 10*6/uL Hgb (12.0-15.0) g/dL Hct (37.2-46.3) % MCH (27.0-32.0) pg MCHC (32.0-37.0) g/dL RDW (11.5-14.5) % Immature Gran # (0.00-0.04) X 10*3/uL Neutrophils # (1.80-7.70) X 10*3/uL Eosinophils # (0.04-0.35) X 10*3/uL NRBC/100 WBC Diff (0.00-0.01) X 10*3/uL Est GFR (CKD-EPI) (>=60) Glucose (70-110) mg/dL POC Glucose (mg/dL) 164 H 159 H 151 H (70-110) mg/dL Calcium (8.7-10.3) mg/dL Total Bilirubin (0.3-1.2) mg/dL ALT (8-44) U/L Total Protein (6.2-8.2) g/dL Albumin (3.8-4.9) g/dL Albumin/Globulin Ratio (1.60-3.17) Ratio 10/11/24 10/11/24 10/11/24 Range/Units 04:42 04:42 07:19 WBC 13.38 H (4.50-10.00) X 10*3/uL RBC 3.50 L (4.10-5.20) X 10*6/uL Hgb 8.2 L (12.0-15.0) g/dL Hct 28.7 L (37.2-46.3) % MCH 23.4 L (27.0-32.0) pg MCHC 28.6 L (32.0-37.0) g/dL RDW 18.6 H (11.5-14.5) % Immature Gran # 0.31 H (0.00-0.04) X 10*3/uL Neutrophils # 10.52 H (1.80-7.70) X 10*3/uL Eosinophils # 0.66 H (0.04-0.35) X 10*3/uL NRBC/100 WBC Diff 0.03 H (0.00-0.01) X 10*3/uL Est GFR (CKD-EPI) 56 L (>=60) Glucose 160 H (70-110) mg/dL POC Glucose (mg/dL) 172 H (70-110) mg/dL Calcium 8.6 L (8.7-10.3) mg/dL Total Bilirubin 0.2 L (0.3-1.2) mg/dL ALT 7 L (8-44) U/L Total Protein 5.2 L (6.2-8.2) g/dL Albumin 2.2 L (3.8-4.9) g/dL Albumin/Globulin Ratio 0.73 L (1.60-3.17) Ratio 10/11/24 Range/Units 12:06 WBC (4.50-10.00) X 10*3/uL RBC (4.10-5.20) X 10*6/uL Hgb (12.0-15.0) g/dL Hct (37.2-46.3) % MCH (27.0-32.0) pg MCHC (32.0-37.0) g/dL RDW (11.5-14.5) % Immature Gran # (0.00-0.04) X 10*3/uL Neutrophils # (1.80-7.70) X 10*3/uL Eosinophils # (0.04-0.35) X 10*3/uL NRBC/100 WBC Diff (0.00-0.01) X 10*3/uL Est GFR (CKD-EPI) (>=60) Glucose (70-110) mg/dL POC Glucose (mg/dL) 248 H (70-110) mg/dL Calcium (8.7-10.3) mg/dL Total Bilirubin (0.3-1.2) mg/dL ALT (8-44) U/L Total Protein (6.2-8.2) g/dL Albumin (3.8-4.9) g/dL Albumin/Globulin Ratio (1.60-3.17) Ratio Microbiology - Last 24 Hours (Table) 10/08/24 04:09 Blood Culture - Preliminary Blood 10/05/24 14:15 Blood Culture - Final Blood Assessment and Plan Assessment: 1: Postoperative left inguinal incisional infection. Plan: 1: Agree with local wound care and IV antibiotics. 2: I have contacted Dr. Ayala from plastic surgery in regard to possible rotational flap. He will evaluate the patient and make his recommendations in this regard. 3: Patient may eventually require explantation of the graft with cadaveric conduit. Time with Patient: Less than 30
--- NOTE | 2024-10-11 15:34 | P.PN ---
Subjective Progress Note Date: 10/11/24 Principal diagnosis: Reason for follow-up is left groin infected wound Patient is a 64-year-old female with a past medical history significant for Coronary Artery Disease (CAD), Cancer, CVA/TIA, Diabetes Mellitus, Deep Vein Thrombosis (DVT), GERD/Reflux, Memory Impairment, Osteoarthritis (OA), Pulmonary Embolus (PE), Vascular Disorder who recently underwent bilateral common femoral artery thromboendarterectomy and femorofemoral bypass on 09/14/2024 presented to hospital with bilateral groin pain and draining wound to the left groin area has been diagnosed with surgical site infection prompted this consultation. Patient did have left groin washout and placement of wound VAC procedure completed on 10/07/2024. On today's evaluation that is 10/11/2024, Patient is afebrile patient is currently on room air and denies having any shortness of breath, the patient denies any chest pain or cough, the patient denies any nausea vomiting did not have any abdominal pain and no diarrhea still complaining of some discomfort to the left groin area. Patient white count is 13.38 creatinine is 1.1 blood culture repeat has been negative so far Objective - Vital Signs Vital signs: Vital Signs Temp 98.6 F 10/11/24 12:47 Pulse 66 10/11/24 12:47 Resp 16 10/11/24 12:47 BP 135/72 10/11/24 12:47 Pulse Ox 95 10/11/24 12:47 FiO2 Intake & Output 10/10/24 10/11/24 10/11/24 17:59 06:59 18:59 Intake Total Output Total Balance Intake: Intake, IV Titration Amount DAPTOmycin 500 mg In Sodium Chloride 0.9% 50 ml @ 100 mls/hr IVPB Q24HR [facility] Rx#:[id number] Sodium Chloride 0.9% 1, 000 ml @ 10 mls/hr IV . Q24H [facility] Rx#:[id number] Oral Output: Drainage Left Groin Urine Other: Voiding Method External Catheter # Voids # Bowel Movements 3 - Exam GENERAL DESCRIPTION: Middle-age female e lying in bed in no distress RESPIRATORY SYSTEM: Unlabored breathing , decreased breath sounds at bases HEART: S1 S2 regular rate and rhythm , ABDOMEN: Soft , no tenderness EXTREMITIES: Left groin currently covered with a wound VAC - Labs CBC & Chem 7: 10/11/24 04:42 10/11/24 04:42 Labs: Abnormal Lab Results - Last 24 Hours (Table) 10/10/24 10/10/24 10/11/24 Range/Units 17:24 20:21 03:15 WBC (4.50-10.00) X 10*3/uL RBC (4.10-5.20) X 10*6/uL Hgb (12.0-15.0) g/dL Hct (37.2-46.3) % MCH (27.0-32.0) pg MCHC (32.0-37.0) g/dL RDW (11.5-14.5) % Immature Gran # (0.00-0.04) X 10*3/uL Neutrophils # (1.80-7.70) X 10*3/uL Eosinophils # (0.04-0.35) X 10*3/uL NRBC/100 WBC Diff (0.00-0.01) X 10*3/uL Est GFR (CKD-EPI) (>=60) Glucose (70-110) mg/dL POC Glucose (mg/dL) 164 H 159 H 151 H (70-110) mg/dL Calcium (8.7-10.3) mg/dL Total Bilirubin (0.3-1.2) mg/dL ALT (8-44) U/L Total Protein (6.2-8.2) g/dL Albumin (3.8-4.9) g/dL Albumin/Globulin Ratio (1.60-3.17) Ratio 10/11/24 10/11/24 10/11/24 Range/Units 04:42 04:42 07:19 WBC 13.38 H (4.50-10.00) X 10*3/uL RBC 3.50 L (4.10-5.20) X 10*6/uL Hgb 8.2 L (12.0-15.0) g/dL Hct 28.7 L (37.2-46.3) % MCH 23.4 L (27.0-32.0) pg MCHC 28.6 L (32.0-37.0) g/dL RDW 18.6 H (11.5-14.5) % Immature Gran # 0.31 H (0.00-0.04) X 10*3/uL Neutrophils # 10.52 H (1.80-7.70) X 10*3/uL Eosinophils # 0.66 H (0.04-0.35) X 10*3/uL NRBC/100 WBC Diff 0.03 H (0.00-0.01) X 10*3/uL Est GFR (CKD-EPI) 56 L (>=60) Glucose 160 H (70-110) mg/dL POC Glucose (mg/dL) 172 H (70-110) mg/dL Calcium 8.6 L (8.7-10.3) mg/dL Total Bilirubin 0.2 L (0.3-1.2) mg/dL ALT 7 L (8-44) U/L Total Protein 5.2 L (6.2-8.2) g/dL Albumin 2.2 L (3.8-4.9) g/dL Albumin/Globulin Ratio 0.73 L (1.60-3.17) Ratio 10/11/24 Range/Units 12:06 WBC (4.50-10.00) X 10*3/uL RBC (4.10-5.20) X 10*6/uL Hgb (12.0-15.0) g/dL Hct (37.2-46.3) % MCH (27.0-32.0) pg MCHC (32.0-37.0) g/dL RDW (11.5-14.5) % Immature Gran # (0.00-0.04) X 10*3/uL Neutrophils # (1.80-7.70) X 10*3/uL Eosinophils # (0.04-0.35) X 10*3/uL NRBC/100 WBC Diff (0.00-0.01) X 10*3/uL Est GFR (CKD-EPI) (>=60) Glucose (70-110) mg/dL POC Glucose (mg/dL) 248 H (70-110) mg/dL Calcium (8.7-10.3) mg/dL Total Bilirubin (0.3-1.2) mg/dL ALT (8-44) U/L Total Protein (6.2-8.2) g/dL Albumin (3.8-4.9) g/dL Albumin/Globulin Ratio (1.60-3.17) Ratio Microbiology - Last 24 Hours (Table) 10/08/24 04:09 Blood Culture - Preliminary Blood 10/05/24 14:15 Blood Culture - Final Blood Assessment and Plan (1) Allergy to vancomycin Current Visit: Yes Status: Acute Code(s): Z88.1 - ALLERGY STATUS TO OTHER ANTIBIOTIC AGENTS SNOMED Code(s): 588589435 (2) Wound infection after surgery Current Visit: No Status: Acute Code(s): T81.49XA - INFECTION FOLLOWING A PROCEDURE, OTHER SURGICAL SITE, INIT SNOMED Code(s): 87155956 (3) Leukocytosis Current Visit: No Status: Acute Code(s): D72.829 - ELEVATED WHITE BLOOD CELL COUNT, UNSPECIFIED SNOMED Code(s): 175240336 Plan: 1-patient presented to hospital with increasing pain to bilateral groin area and drainage from the left groin in this patient who recently did have bilateral common femoral artery thromboendarterectomy and femorofemoral bypass on 09/14/2024 now presenting with increasing pain swelling erythema and drainage concerning for surgical site of infection we will need to cover for resistant gram-positive as well as gram-negative pathogen. 2-patient with vancomycin allergy that will limit number of antibiotics safe to use. 3-patient is status post left groin washout and application of wound VAC placement completed on 10/07/2024 4blood culture positive for MRSA local culture growing MRSA as well as bacteroids, blood culture repeat has been negative so far 5patient is afebrile and repeat blood culture negative still slightly worsening of the white count need to monitor closely for now continue with daptomycin and Flagyl and will evaluate the wound at the time of dressing changes tomorrow Dictation was produced using [employer] dictation software. please excuse any grammatical, word or spelling errors. Time with Patient: Less than 30
[2024-10-11 17:26] LABS: Glucose,Whole Blood 247 mg/dL (70-110)
[2024-10-11 21:33] LABS: Glucose,Whole Blood 262 mg/dL (70-110)
[2024-10-12 07:30] LABS: Glucose,Whole Blood 205 mg/dL (70-110)
[2024-10-12 08:16] LABS: ALT <5 U/L (8-44); AST 12 U/L (13-35); Albumin/Globulin Ratio 0.67 Ratio (1.60-3.17); Alkaline Phosphatase 85 U/L (41-126); BUN/Creat Ratio 14.78 Ratio (12.00-20.00); Blood Urea Nitrogen 13.3 mg/dL (9.0-27.0); Calcium 8.5 mg/dL (8.7-10.3); Carbon Dioxide 28.9 mmol/L (21.6-31.8); Chloride 100 mmol/L (96-109); Glucose 214 mg/dL (70-110); Potassium 4.7 mmol/L (3.5-5.5); Sodium 134 mmol/L (135-145); Total Bilirubin 0.2 mg/dL (0.3-1.2)
[2024-10-12] MEDS: LOPERAMIDE 2 MG CAP PO SCH (08:36)
[2024-10-12 09:01] LABS: Basophils # (A) 0.04 X 10*3/uL (0.00-0.10); Basophils % (A) 0.3 %; Eosinophils % (A) 4.6 %; HCT 26.4 % (37.2-46.3); HGB 7.9 g/dL (12.0-15.0); Lymphocytes # (A) 1.44 X 10*3/uL (0.90-5.00); Lymphocytes % (A) 11.1 %; MCH 23.9 pg (27.0-32.0); MCHC 29.9 g/dL (32.0-37.0); Mean Platelet Volume 10.6 FL (9.5-12.2); Monocytes # (A) 0.55 X 10*3/uL (0.20-1.00); Monocytes % (A) 4.2 %; NRBC Per 100 WBC 0.02 X 10*3/uL (0.00-0.01); Neutrophils # (A) 9.91 X 10*3/uL (1.80-7.70); Neutrophils % (A) 76.6 %; Platelet Count 336 X 10*3/uL (140-440); RDW 18.6 % (11.5-14.5); WBC 12.95 X 10*3/uL (4.50-10.00)
--- NOTE | 2024-10-12 09:37 | P.PN ---
Subjective Progress Note Date: 10/12/24 Principal diagnosis: Surgical wound dehiscence, infection Patient seen and examined today as a follow-up. No acute changes through the night. Dr. Ayala has been consulted and patient will follow-up as an outpatient. Repeat blood cultures are currently with no growth at 72 hours. She remains on IV antibiotics. Wound VAC in place to left groin with good suction. Objective - Vital Signs Vital signs: Vital Signs Temp 98.3 F 10/12/24 06:49 Pulse 67 10/12/24 06:49 Resp 17 10/12/24 06:49 BP 143/70 10/12/24 06:49 Pulse Ox 92 L 10/12/24 06:49 FiO2 Intake & Output 10/11/24 10/12/24 10/12/24 18:59 06:59 18:59 Intake Total 590 590 Balance 590 590 Intake: Intake, IV Titration 50 Amount DAPTOmycin 500 mg In 50 Sodium Chloride 0.9% 50 ml @ 100 mls/hr IVPB Q24HR [facility] Rx#:[id number] Oral 540 590 Other: Voiding Method External Catheter Diaper # Voids 1,700 4 1 # Bowel Movements 1 4 - Exam General appearance: The patient is alert, oriented, appears in no acute distress. HET: Head is normocephalic and atraumatic. Pupils are equal and reactive. Neck: Supple. Lungs: Equal expansion, normal respiratory effort. Abdomen: Soft, lower abdominal tenderness over bypass, nondistended. Extremities: Right groin surgical incision well healed, tender to palpation. Left groin with wound VAC in place with good suction. Neurological: No focal deficits. Alert and oriented. - Labs CBC & Chem 7: 10/12/24 04:39 10/12/24 04:39 Labs: Abnormal Lab Results - Last 24 Hours (Table) 10/11/24 10/11/24 10/11/24 Range/Units 04:42 04:42 12:06 WBC 13.38 H (4.50-10.00) X 10*3/uL RBC 3.50 L (4.10-5.20) X 10*6/uL Hgb 8.2 L (12.0-15.0) g/dL Hct 28.7 L (37.2-46.3) % MCH 23.4 L (27.0-32.0) pg MCHC 28.6 L (32.0-37.0) g/dL RDW 18.6 H (11.5-14.5) % Immature Gran # 0.31 H (0.00-0.04) X 10*3/uL Neutrophils # 10.52 H (1.80-7.70) X 10*3/uL Eosinophils # 0.66 H (0.04-0.35) X 10*3/uL NRBC/100 WBC Diff 0.03 H (0.00-0.01) X 10*3/uL Sodium (135-145) mmol/L Est GFR (CKD-EPI) 56 L (>=60) Glucose 160 H (70-110) mg/dL POC Glucose (mg/dL) 248 H (70-110) mg/dL Calcium 8.6 L (8.7-10.3) mg/dL Total Bilirubin 0.2 L (0.3-1.2) mg/dL AST (13-35) U/L ALT 7 L (8-44) U/L Total Protein 5.2 L (6.2-8.2) g/dL Albumin 2.2 L (3.8-4.9) g/dL Albumin/Globulin Ratio 0.73 L (1.60-3.17) Ratio 10/11/24 10/11/24 10/12/24 Range/Units 17:24 21:31 04:39 WBC 12.95 H (4.50-10.00) X 10*3/uL RBC 3.30 L (4.10-5.20) X 10*6/uL Hgb 7.9 L (12.0-15.0) g/dL Hct 26.4 L (37.2-46.3) % MCH 23.9 L (27.0-32.0) pg MCHC 29.9 L (32.0-37.0) g/dL RDW 18.6 H (11.5-14.5) % Immature Gran # 0.41 H (0.00-0.04) X 10*3/uL Neutrophils # 9.91 H (1.80-7.70) X 10*3/uL Eosinophils # 0.60 H (0.04-0.35) X 10*3/uL NRBC/100 WBC Diff 0.02 H (0.00-0.01) X 10*3/uL Sodium (135-145) mmol/L Est GFR (CKD-EPI) (>=60) Glucose (70-110) mg/dL POC Glucose (mg/dL) 247 H 262 H (70-110) mg/dL Calcium (8.7-10.3) mg/dL Total Bilirubin (0.3-1.2) mg/dL AST (13-35) U/L ALT (8-44) U/L Total Protein (6.2-8.2) g/dL Albumin (3.8-4.9) g/dL Albumin/Globulin Ratio (1.60-3.17) Ratio 10/12/24 10/12/24 Range/Units 04:39 06:50 WBC (4.50-10.00) X 10*3/uL RBC (4.10-5.20) X 10*6/uL Hgb (12.0-15.0) g/dL Hct (37.2-46.3) % MCH (27.0-32.0) pg MCHC (32.0-37.0) g/dL RDW (11.5-14.5) % Immature Gran # (0.00-0.04) X 10*3/uL Neutrophils # (1.80-7.70) X 10*3/uL Eosinophils # (0.04-0.35) X 10*3/uL NRBC/100 WBC Diff (0.00-0.01) X 10*3/uL Sodium 134 L (135-145) mmol/L Est GFR (CKD-EPI) (>=60) Glucose 214 H (70-110) mg/dL POC Glucose (mg/dL) 205 H (70-110) mg/dL Calcium 8.5 L (8.7-10.3) mg/dL Total Bilirubin 0.2 L (0.3-1.2) mg/dL AST 12 L (13-35) U/L ALT <5 L (8-44) U/L Total Protein 5.0 L (6.2-8.2) g/dL Albumin 2.0 L (3.8-4.9) g/dL Albumin/Globulin Ratio 0.67 L (1.60-3.17) Ratio Microbiology - 24 Hours (Table) 10/08/24 04:09 Blood Culture - Preliminary Blood Assessment and Plan Assessment: 1. Postop wound infection of the left inguinal area status post washout with application of wound VAC 2. Recent bilateral common femoral artery thromboendarterectomy and femorofemoral bypass 3. Hypokalemia, resolved 4. Bacteremia 5. Peripheral arterial disease 6. History of right [id number] amputation 7. Obesity 8. Diabetes mellitus 9. History of DVT and pulmonary embolism Plan: 1. Continue Eliquis 2. Continue antibiotics per recommendations from infectious disease 3. Continue wound VAC to left groin, change Saturday and Fridays 4. Consult to Dr. Bailey for possible rotational muscle flap, plan for outpatient follow-up 5. Rest of medical management per primary medical team 6. Outpatient follow-up with vascular surgery next week Thank you for this consultation, patient is cleared from vascular surgery for discharge when medically cleared The impression and plan of care has been dictated as directed. Dr. Rutledge I performed a history and examination of this patient, discussed the same with the dictator. I agree with the dictator's note ,documented as a scribe. Any additional findings or plans will be noted.
[2024-10-12 12:42] LABS: Glucose,Whole Blood 234 mg/dL (70-110)
[2024-10-12 15:44] VITALS: BMI 29.4
--- NOTE | 2024-10-12 16:10 | P.PN ---
Subjective Progress Note Date: 10/12/24 Principal diagnosis: Reason for follow-up is left groin infected wound Patient is a 64-year-old female with a past medical history significant for Coronary Artery Disease (CAD), Cancer, CVA/TIA, Diabetes Mellitus, Deep Vein Thrombosis (DVT), GERD/Reflux, Memory Impairment, Osteoarthritis (OA), Pulmonary Embolus (PE), Vascular Disorder who recently underwent bilateral common femoral artery thromboendarterectomy and femorofemoral bypass on 09/14/2024 presented to hospital with bilateral groin pain and draining wound to the left groin area has been diagnosed with surgical site infection prompted this consultation. Patient did have left groin washout and placement of wound VAC procedure completed on 10/07/2024. On today's evaluation that is 10/12/2024, patient has been afebrile, patient is breathing comfortably and is currently on room air, patient denies having any significant cough no chest pain, patient denies nausea vomiting or diarrhea and no abdominal pain; no pain to the left groin area. Patient white count is down to 12.95, creatinine 0.9 blood culture repeat has been negative Objective - Vital Signs Vital signs: Vital Signs Temp 97.8 F 10/12/24 14:00 Pulse 67 10/12/24 14:00 Resp 18 10/12/24 14:00 BP 144/68 10/12/24 14:00 Pulse Ox 96 10/12/24 14:00 FiO2 Intake & Output 10/11/24 10/12/24 10/12/24 18:59 06:59 18:59 Intake Total 590 590 Balance 590 590 Weight 85.275 kg Intake: Intake, IV Titration 50 Amount DAPTOmycin 500 mg In 50 Sodium Chloride 0.9% 50 ml @ 100 mls/hr IVPB Q24HR [facility] Rx#:[id number] Oral 540 590 Other: Voiding Method External Catheter Diaper # Voids 1,700 4 1 # Bowel Movements 1 4 - Exam GENERAL DESCRIPTION: Middle-age female e lying in bed in no distress RESPIRATORY SYSTEM: Unlabored breathing , decreased breath sounds at bases HEART: S1 S2 regular rate and rhythm , ABDOMEN: Soft , no tenderness EXTREMITIES: Left groin currently covered with a wound VAC - Labs CBC & Chem 7: 10/12/24 04:39 10/12/24 04:39 Labs: Abnormal Lab Results - Last 24 Hours (Table) 10/11/24 10/11/24 10/12/24 Range/Units 17:24 21:31 04:39 WBC 12.95 H (4.50-10.00) X 10*3/uL RBC 3.30 L (4.10-5.20) X 10*6/uL Hgb 7.9 L (12.0-15.0) g/dL Hct 26.4 L (37.2-46.3) % MCH 23.9 L (27.0-32.0) pg MCHC 29.9 L (32.0-37.0) g/dL RDW 18.6 H (11.5-14.5) % Immature Gran # 0.41 H (0.00-0.04) X 10*3/uL Neutrophils # 9.91 H (1.80-7.70) X 10*3/uL Eosinophils # 0.60 H (0.04-0.35) X 10*3/uL NRBC/100 WBC Diff 0.02 H (0.00-0.01) X 10*3/uL Sodium (135-145) mmol/L Glucose (70-110) mg/dL POC Glucose (mg/dL) 247 H 262 H (70-110) mg/dL Calcium (8.7-10.3) mg/dL Total Bilirubin (0.3-1.2) mg/dL AST (13-35) U/L ALT (8-44) U/L Total Protein (6.2-8.2) g/dL Albumin (3.8-4.9) g/dL Albumin/Globulin Ratio (1.60-3.17) Ratio 10/12/24 10/12/24 10/12/24 Range/Units 04:39 06:50 12:38 WBC (4.50-10.00) X 10*3/uL RBC (4.10-5.20) X 10*6/uL Hgb (12.0-15.0) g/dL Hct (37.2-46.3) % MCH (27.0-32.0) pg MCHC (32.0-37.0) g/dL RDW (11.5-14.5) % Immature Gran # (0.00-0.04) X 10*3/uL Neutrophils # (1.80-7.70) X 10*3/uL Eosinophils # (0.04-0.35) X 10*3/uL NRBC/100 WBC Diff (0.00-0.01) X 10*3/uL Sodium 134 L (135-145) mmol/L Glucose 214 H (70-110) mg/dL POC Glucose (mg/dL) 205 H 234 H (70-110) mg/dL Calcium 8.5 L (8.7-10.3) mg/dL Total Bilirubin 0.2 L (0.3-1.2) mg/dL AST 12 L (13-35) U/L ALT <5 L (8-44) U/L Total Protein 5.0 L (6.2-8.2) g/dL Albumin 2.0 L (3.8-4.9) g/dL Albumin/Globulin Ratio 0.67 L (1.60-3.17) Ratio Microbiology - Last 24 Hours (Table) 10/08/24 04:09 Blood Culture - Preliminary Blood Assessment and Plan (1) Allergy to vancomycin Current Visit: Yes Status: Acute Code(s): Z88.1 - ALLERGY STATUS TO OTHER ANTIBIOTIC AGENTS SNOMED Code(s): 667093598 (2) Wound infection after surgery Current Visit: No Status: Acute Code(s): T81.49XA - INFECTION FOLLOWING A PROCEDURE, OTHER SURGICAL SITE, INIT SNOMED Code(s): 34094902 (3) Leukocytosis Current Visit: No Status: Acute Code(s): D72.829 - ELEVATED WHITE BLOOD CELL COUNT, UNSPECIFIED SNOMED Code(s): 093503297 Plan: 1-patient presented to hospital with increasing pain to bilateral groin area and drainage from the left groin in this patient who recently did have bilateral common femoral artery thromboendarterectomy and femorofemoral bypass on 09/14/2024 now presenting with increasing pain swelling erythema and drainage concerning for surgical site of infection we will need to cover for resistant gram-positive as well as gram-negative pathogen. 2-patient with vancomycin allergy that will limit number of antibiotics safe to use. 3-patient is status post left groin washout and application of wound VAC placement completed on 10/07/2024 4blood culture positive for MRSA local culture growing MRSA as well as bacteroids, blood culture repeat has been negative so far 5patient is afebrile and repeat blood culture negative white count is slowly trending down we will continue with the daptomycin and Flagyl will add rifampin order PICC line for tomorrow Dictation was produced using [employer] dictation software. please excuse any grammatical, word or spelling errors. Time with Patient: Less than 30
[2024-10-12 16:57] LABS: Glucose,Whole Blood 284 mg/dL (70-110)
--- NOTE | 2024-10-12 18:44 | P.PN ---
Subjective Progress Note Date: 10/12/24 HISTORY OF PRESENT ILLNESS This is a 64-year-old female patient of mine with history of CAD with multiple cardiac stents in mid RCA, mid LAD, obtuse marginal branch and followed by Dr. Bill closely, peripheral artery disease with previous stenting done as well has amputation of the right great toe secondary to osteomyelitis, CVA with no residual deficits, hypertension, COPD, diabetes mellitus type 2, previous multiple DVT and PE requiring chronic anticoagulation on eliquis, history of GI bleed secondary to antral gastritis, esophagitis, vitamin D deficiency, history of left humerus fracture, history of PAD post right AKA and CAD post PCI of the RCA with intermediate disease of the LAD, patient underwent bilateral femoral thromboendarterectomy with femorofemoral bypass that was done successfully by Dr. Pardo on 09/14/2024 and the patient was discharged home was doing fine, tell last Saturday when she developed to have a significant diarrheal illness, associated with generalized fatigue and weakness not able to do anything, was not able to keep anything down, was supposed to go to see Dr. Pardo on for follow-up, but she could not make it because she was extremely weak and her son was not available to take her patient apparently stayed at home until her son came and and she ended up calling 911 for the patient to be brought into the emergency department because of generalized weakness not able to ambulate, and transfer herself, she ended up coming to the emergency department because of significant erythema and drainage from the left groin area where the surgical incision was done, there was concerns about infection in that area, patient was started on cefepime 2 g piggyback every 8 hours, daptomycin 350 mg IV piggyback every 24 hours, blood culture, x 2, wound culture aerobic and anaerobic, vascular surgery consultation as well as infectious disease consultation was obtained, patient also was found to have a severe hypokalemia, she will be replaced per protocol, she will be given a total of 120 mill equivalent of potassium today repeat CMP tomorrow morning. I will repeat her potassium this evening. 3/4: Patient is laying down in bed in minimal distress, she complains of increased pain in the left groin area, she continues to have a lot of drainage from the wound, she was seen earlier by vascular surgery who recommended to go for a washout of the wound, possible wound VAC placement later on today, patient blood glucose over was quite elevated, she did not receive her long-acting yesterday, I placed the patient on her sliding scale insulin plus her regular dose of insulin, will follow-up with the patient very closely, repeat laboratory evaluation in the next 24 hours. 10/07: Patient underwent washout of the left groin area with pressure lavage and wound VAC placement successfully by Dr. Pardo, she was seen in her room, she just got up from the recovery room, she is getting Dilaudid for pain control, she denies any chest pain, shortness of breath at this time, her son was at bedside, he was updated about her current condition, she remains on daptomycin due to methicillin-resistant Staphylococcus aureus, physical therapy evaluation in the next 24 hours, continue current pain management, continue aggressive pulmonary toileting, follow-up with labs in the morning 10/08: Patient is laying down in bed in no apparent distress, she denies any chest pain at this time, she has no shortness of breath at this time she denies any abdominal pain nausea vomiting or diarrhea, she continues to be on daptomycin due to methicillin-resistant Staphylococcus aureus, patient is not enjoying the food, and she is feeling a bit nauseated, she is controlling her pain very well, has been having the wound VAC in place, we will continue follow-up with the patient very closely, 10/09: Patient continue to be laying down in bed in no apparent distress, she feeling better today, she continues to have a poor appetite, her blood cultures positive for methicillin-resistant Staphylococcus aureus currently on daptomycin, infectious disease following, vascular surgery following, continue to have a wound VAC in place, we will continue to work with the patient very closely, laboratory evaluation is better and her hemoglobin is down a bit at 7.8, transfuse for hemoglobin less than 7, start the patient on iron 325 mg ora lly twice every day. 10/10: Patient is feeling a bit better today, she has no fever or chills, she co ntinues to have significant pain in the left groin area, she has the wound VAC in place, she continues to be on daptomycin, repeated blood culture still pending the time decrease her IV fluid to KVO, continue to work with physical therapy, patient would like to go eventually home with home PT as well as home IV antibiotic we will continue to follow-up with the patient very closely at this time. 10/11: Patient continues to be afebrile at this point in time, she did have repeated blood culture that appears to be negative so far, patient is being treated for MRSA bacteremia due to infected left groin wound post femorofemoral bypass post washout of the wound and a wound VAC placed that was done 10/07/2024, will continue the same treatment plan since the patient is allergic to vancomycin she has been started on daptomycin as well as Flagyl due to bacteroids along with MRSA patient has been tolerated treatment very well, decrease IV fluid yesterday, patient was given a dose of Lasix yesterday because of increased swelling, continue physical therapy and Occupational Therapy I offered the patient to go to subacute rehabilitation however the patient is wanted to go home with a home antibiotic. 10/12: Patient is doing better today, she is laying down in bed in no apparent distress, I updated her ex- per her request Ramirez, we will continue current treatment plan, patient has not had any fever or chills over the last 24 hours,repeated blood cultures so far negative, patient has been on daptomycin, she has been followed by infectious disease as well as by vascular surgery continue current treatment plan, will plan for the patient to go home with home IV antibiotic. REVIEW OF SYSTEMS Constitutional: No fever, No chills, no night sweats. Report groin wound status post femorofemoral bypasss no weight loss. Reports weakness, Reports fatigue no lethargy. NO daytime sleepiness. HEENT: No headache. No dizziness. No nasal drainage or congestion. No epistaxis. No sore throat. Lungs: No shortness of breath, no cough, no sputum production. No wheezing. Cardiovascular: No chest pain, no lower extremity edema. No palpitations. No paroxysmal nocturnal dyspnea. No orthopnea. No lightheadedness or dizziness. No syncopal episodes. Abdominal: Reports no abdominal pain. Reports nausea, no vomiting. no diarrhea. No constipation. No bloody or tarry stools. good appetite. Genitourinary: No dysuria, increased frequency, urgency. No urinary retention. Musculoskeletal: No myalgias. positive for muscle weakness, reports balance issues. Integumentary: Right AKA , left lower extremity is intact, pulses by Doppler, left groin with the wound VAC. Neurologic: No aphasia. No facial droop. No change in mentation. No head injury. No headache. No paralysis. No paresthesia. Psychiatric: Reports depression. Reports anxiety. No mood swings. Endocrine: abnormal blood sugars. positive for weight change. No excessive sweating or thirst. No cold intolerance. PHYSICAL EXAMINATION Gen: This is a 64-year-old female. She is resting in bed i no acute distress HEENT: Head is atraumatic, normocephalic. Pupils equal, round. Sclerae is anicteric. Mucous members of the mouth are somewhat dry. NECK: Supple. No JVD. No lymphadenopathy. No thyromegaly. LUNGS: Clear to auscultation. No wheezes or rhonchi. No intercostal retractions. 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 ABDOMEN: Soft, non tender non distended and no rebound or guarding positive bowel sounds EXTREMITIES: Right above-knee amputation , left lower extremity is intact. Left groin area with wound VAC in place and minimal tenderness. NEUROLOGICAL: Patient is awake, alert and oriented x3. Cranial nerves 2 through 12 are grossly intact muscle power were 4 out of 5 in upper extremity is, and 3 out of 5 in the left lower extremity. She does have a right above-knee amputation. ASSESSMENT AND PLAN 1. Postoperative day #6 status post left groin wound washout with the pulse lavage and wound VAC placement. Follow-up higher femorofemoral bypass using PTFE. Continue patient on daptomycin since the patient culture is showing methi cillin-resistant Staphylococcus aureus, continue metronidazole 500 mg orally 3 times every day infectious and vascular surgery are following continue current pain management, follow-up with the patient very closely. Repeated blood cultures so far is negative 2. MRSA bacteremia due to infected left femoral-femoral bypass wound. Continue IV antibiotic, repeat blood culture, monitor the patient very closely,repeated cultures after the daptomycin, repeated blood culture so far negative. 3. Coronary artery disease with recent stent of the RCA due to recent in-stent restenosis. Patient has had previous multiple cardiac stents to the RCA and mid LAD, obtuse marginal branch. Continue patient on aspirin 81 mg daily, Lopressor 25 mg twice daily, Atorvastatin 80 mg po daily . 4. Diabetes mellitus type 2, we will continue Lantus 46 units units at bedtime, along with a sliding scale insulin, continue with with pioglitazone 30 mg once every day, continue Farxiga 10 mg once every day . 5. Mixed hyperlipidemia. Hold atorvastatin due to the interaction with daptomycin for now, monitor the patient at bedtime, keep LDL 55-70. 6. Chronic DVT and PEs. Continue patient on eliquis 5 mg twice daily. 7. Hypertension and hypertensive cardiovascular disease. Continue metoprolol 25 mg orally twice every day. Monitor the patient blood pressure very closely. 8. Gastroesophageal reflux disease and GI prophylaxis. Continue Pantoprazole 40 mg daily 9. Diabetic neuropathy. we will continue wit Gabapentin 400 mg po tid. 10. Generalized anxiety disorder, recurrent depression. Continue Cymbalta 60 mg po daily. 11. DVT prophylaxis. Continue Eliquis 5 mg po bid 12. GI prophylaxis. Continue patient on pantoprazole 40 mg once every day 13. Hypomagnesemia status post replacement. 14. Physical therapy evaluation 15. drum worker consultation for discharge planning. 16. Patient is full code. 17. Plan for midline and home with home antibiotics for 2 weeks. Objective - Vital Signs Vital signs: Vital Signs Temp 97.9 F 10/12/24 00:41 Pulse 70 10/12/24 00:41 Resp 16 10/12/24 00:41 BP 122/63 10/12/24 00:41 Pulse Ox 96 10/12/24 00:41 FiO2 Intake & Output 10/11/24 10/12/24 10/12/24 18:59 06:59 18:59 Intake Total 590 590 Balance 590 590 Intake: Intake, IV Titration 50 Amount DAPTOmycin 500 mg In 50 Sodium Chloride 0.9% 50 ml @ 100 mls/hr IVPB Q24HR [facility] Rx#:[id number] Oral 540 590 Other: Voiding Method External Catheter Diaper # Voids 1,700 4 # Bowel Movements 1 4 - Labs CBC & Chem 7: 10/12/24 04:39 10/12/24 04:39 Labs: Abnormal Lab Results - Last 24 Hours (Table) 10/11/24 10/11/24 10/11/24 Range/Units 04:42 04:42 07:19 WBC 13.38 H (4.50-10.00) X 10*3/uL RBC 3.50 L (4.10-5.20) X 10*6/uL Hgb 8.2 L (12.0-15.0) g/dL Hct 28.7 L (37.2-46.3) % MCH 23.4 L (27.0-32.0) pg MCHC 28.6 L (32.0-37.0) g/dL RDW 18.6 H (11.5-14.5) % Immature Gran # 0.31 H (0.00-0.04) X 10*3/uL Neutrophils # 10.52 H (1.80-7.70) X 10*3/uL Eosinophils # 0.66 H (0.04-0.35) X 10*3/uL NRBC/100 WBC Diff 0.03 H (0.00-0.01) X 10*3/uL Est GFR (CKD-EPI) 56 L (>=60) Glucose 160 H (70-110) mg/dL POC Glucose (mg/dL) 172 H (70-110) mg/dL Calcium 8.6 L (8.7-10.3) mg/dL Total Bilirubin 0.2 L (0.3-1.2) mg/dL ALT 7 L (8-44) U/L Total Protein 5.2 L (6.2-8.2) g/dL Albumin 2.2 L (3.8-4.9) g/dL Albumin/Globulin Ratio 0.73 L (1.60-3.17) Ratio 10/11/24 10/11/24 10/11/24 Range/Units 12:06 17:24 21:31 WBC (4.50-10.00) X 10*3/uL RBC (4.10-5.20) X 10*6/uL Hgb (12.0-15.0) g/dL Hct (37.2-46.3) % MCH (27.0-32.0) pg MCHC (32.0-37.0) g/dL RDW (11.5-14.5) % Immature Gran # (0.00-0.04) X 10*3/uL Neutrophils # (1.80-7.70) X 10*3/uL Eosinophils # (0.04-0.35) X 10*3/uL NRBC/100 WBC Diff (0.00-0.01) X 10*3/uL Est GFR (CKD-EPI) (>=60) Glucose (70-110) mg/dL POC Glucose (mg/dL) 248 H 247 H 262 H (70-110) mg/dL Calcium (8.7-10.3) mg/dL Total Bilirubin (0.3-1.2) mg/dL ALT (8-44) U/L Total Protein (6.2-8.2) g/dL Albumin (3.8-4.9) g/dL Albumin/Globulin Ratio (1.60-3.17) Ratio Microbiology - Last 24 Hours (Table) 10/08/24 04:09 Blood Culture - Preliminary Blood
[2024-10-12 20:19] LABS: Glucose,Whole Blood 227 mg/dL (70-110)
[2024-10-13 07:29] LABS: Glucose,Whole Blood 117 mg/dL (70-110)
[2024-10-13] MEDS: INSULIN LISPRO (HumaLOG) 100 UNIT/ML 10 mL VL SQ SCH (07:59)
[2024-10-13 08:51] LABS: Basophils # (A) 0.04 X 10*3/uL (0.00-0.10); Basophils % (A) 0.4 %; Eosinophils # (A) 0.71 X 10*3/uL (0.04-0.35); Eosinophils % (A) 6.3 %; HCT 26.5 % (37.2-46.3); HGB 7.8 g/dL (12.0-15.0); Lymphocytes # (A) 1.24 X 10*3/uL (0.90-5.00); MCH 23.6 pg (27.0-32.0); MCHC 29.4 g/dL (32.0-37.0); MCV 80.3 FL (80.0-97.0); Monocytes # (A) 0.54 X 10*3/uL (0.20-1.00); Monocytes % (A) 4.8 %; NRBC Per 100 WBC 0.02 X 10*3/uL (0.00-0.01); Neutrophils # (A) 8.49 X 10*3/uL (1.80-7.70); Platelet Count 350 X 10*3/uL (140-440); RDW 18.6 % (11.5-14.5)
[2024-10-13 08:54] LABS: Glucose 130 mg/dL (70-110)
[2024-10-13 08:55] LABS: ALT 6 U/L (8-44); AST 13 U/L (13-35); Albumin/Globulin Ratio 0.65 Ratio (1.60-3.17); Alkaline Phosphatase 80 U/L (41-126); Calcium 8.2 mg/dL (8.7-10.3); Carbon Dioxide 28.7 mmol/L (21.6-31.8); Chloride 102 mmol/L (96-109); Globulin 3.1 g/dL (1.6-3.3); Potassium 4.7 mmol/L (3.5-5.5); Sodium 137 mmol/L (135-145); Total Bilirubin <0.2 mg/dL (0.3-1.2); Total Protein 5.1 g/dL (6.2-8.2)
--- NOTE | 2024-10-13 09:06 | P.PN ---
Subjective Progress Note Date: 10/13/24 Principal diagnosis: Surgical wound dehiscence, infection Patient is seen and examined today as a follow-up. Yesterday she had her wound VAC changed in the left groin. She is complaining of some discomfort this morning. However she is laying on that side. Still states she has the same discomfort along her lower abdomen where the graft is placed. She has been afebrile. Leukocytosis is trending down. Plan is for PICC line placement today for home antibiotics. She denies any shortness of breath or chest pain, no abdominal pain, nausea or vomiting. Objective - Vital Signs Vital signs: Vital Signs Temp 98.4 F 10/13/24 07:16 Pulse 57 L 10/13/24 07:16 Resp 16 10/13/24 07:16 BP 125/76 10/13/24 07:16 Pulse Ox 93 L 10/13/24 07:16 FiO2 Intake & Output 10/12/24 10/13/24 10/13/24 18:59 06:59 18:59 Intake Total 780 110 Output Total 600 Balance 180 110 Weight 85.275 kg Intake: Intake, IV Titration 110 Amount Sodium Chloride 0.9% 1, 110 000 ml @ 10 mls/hr IV . Q24H [facility] Rx#:[id number] Oral 780 Output: Urine 600 Other: Voiding Method Diaper Bedpan Diaper # Voids 1 3 # Bowel Movements 1 2 - Exam General appearance: The patient is alert, oriented, appears in no acute distress. HET: Head is normocephalic and atraumatic. Pupils are equal and reactive. Neck: Supple. Lungs: Equal expansion, normal respiratory effort. Abdomen: Soft, lower abdominal tenderness over bypass, nondistended. Extremities: Right groin surgical incision well healed, tender to palpation. Left groin with wound VAC in place with good suction. Neurological: No focal deficits. Alert and oriented. - Labs CBC & Chem 7: 10/13/24 04:30 10/12/24 04:39 Labs: Abnormal Lab Results - Last 24 Hours (Table) 10/12/24 10/12/24 10/12/24 Range/Units 04:39 12:38 16:56 WBC 12.95 H (4.50-10.00) X 10*3/uL RBC 3.30 L (4.10-5.20) X 10*6/uL Hgb 7.9 L (12.0-15.0) g/dL Hct 26.4 L (37.2-46.3) % MCH 23.9 L (27.0-32.0) pg MCHC 29.9 L (32.0-37.0) g/dL RDW 18.6 H (11.5-14.5) % Immature Gran # 0.41 H (0.00-0.04) X 10*3/uL Neutrophils # 9.91 H (1.80-7.70) X 10*3/uL Eosinophils # 0.60 H (0.04-0.35) X 10*3/uL NRBC/100 WBC Diff 0.02 H (0.00-0.01) X 10*3/uL POC Glucose (mg/dL) 234 H 284 H (70-110) mg/dL 10/12/24 10/13/24 Range/Units 20:17 07:16 WBC (4.50-10.00) X 10*3/uL RBC (4.10-5.20) X 10*6/uL Hgb (12.0-15.0) g/dL Hct (37.2-46.3) % MCH (27.0-32.0) pg MCHC (32.0-37.0) g/dL RDW (11.5-14.5) % Immature Gran # (0.00-0.04) X 10*3/uL Neutrophils # (1.80-7.70) X 10*3/uL Eosinophils # (0.04-0.35) X 10*3/uL NRBC/100 WBC Diff (0.00-0.01) X 10*3/uL POC Glucose (mg/dL) 227 H 117 H (70-110) mg/dL Assessment and Plan Assessment: 1. Postop wound infection of the left inguinal area status post washout with application of wound VAC 2. Recent bilateral common femoral artery thromboendarterectomy and femorofemoral bypass graft 3. Hypokalemia, resolved 4. Bacteremia 5. Peripheral arterial disease 6. History of right [id number] amputation 7. Obesity 8. Diabetes mellitus 9. History of DVT and pulmonary embolism Plan: 1. Continue antibiotics per recommendations from infectious disease 2. Continue wound VAC to left groin, change Saturday and Fridays 3. Plan for outpatient appointment with Dr. Bailey from plastic surgery in regard to possible rotational flap 4. Outpatient follow-up with vascular surgery next week, patient may eventually require explantation of the graft with cadaveric conduit, this will be further discussed as an outpatient this will be further discussed as an outpatient Thank you for this consultation, patient is cleared from vascular surgery for discharge when medically cleared The impression and plan of care has been dictated as directed. Dr. Julio Polanco performed a history and examination of this patient, discussed the same with the dictator. I agree with the dictator's note ,documented as a scribe. Any additional findings or plans will be noted.
[2024-10-13 09:24] LABS: INR 1.2 (<1.2); Prothrombin Time 12.8 sec (10.0-12.5)
--- NOTE | 2024-10-13 09:45 | P.PN ---
Subjective Progress Note Date: 10/13/24 HISTORY OF PRESENT ILLNESS This is a 64-year-old female patient of mine with history of CAD with multiple cardiac stents in mid RCA, mid LAD, obtuse marginal branch and followed by Dr. Bill closely, peripheral artery disease with previous stenting done as well has amputation of the right great toe secondary to osteomyelitis, CVA with no residual deficits, hypertension, COPD, diabetes mellitus type 2, previous multiple DVT and PE requiring chronic anticoagulation on eliquis, history of GI bleed secondary to antral gastritis, esophagitis, vitamin D deficiency, history of left humerus fracture, history of PAD post right AKA and CAD post PCI of the RCA with intermediate disease of the LAD, patient underwent bilateral femoral thromboendarterectomy with femorofemoral bypass that was done successfully by Dr. Pardo on 09/14/2024 and the patient was discharged home was doing fine, tell last Saturday when she developed to have a significant diarrheal illness, associated with generalized fatigue and weakness not able to do anything, was not able to keep anything down, was supposed to go to see Dr. Pardo on for follow-up, but she could not make it because she was extremely weak and her son was not available to take her patient apparently stayed at home until her son came and and she ended up calling 911 for the patient to be brought into the emergency department because of generalized weakness not able to ambulate, and transfer herself, she ended up coming to the emergency department because of significant erythema and drainage from the left groin area where the surgical incision was done, there was concerns about infection in that area, patient was started on cefepime 2 g piggyback every 8 hours, daptomycin 350 mg IV piggyback every 24 hours, blood culture, x 2, wound culture aerobic and anaerobic, vascular surgery consultation as well as infectious disease consultation was obtained, patient also was found to have a severe hypokalemia, she will be replaced per protocol, she will be given a total of 120 mill equivalent of potassium today repeat CMP tomorrow morning. I will repeat her potassium this evening. 3/4: Patient is laying down in bed in minimal distress, she complains of increased pain in the left groin area, she continues to have a lot of drainage from the wound, she was seen earlier by vascular surgery who recommended to go for a washout of the wound, possible wound VAC placement later on today, patient blood glucose over was quite elevated, she did not receive her long-acting yesterday, I placed the patient on her sliding scale insulin plus her regular dose of insulin, will follow-up with the patient very closely, repeat laboratory evaluation in the next 24 hours. 10/07: Patient underwent washout of the left groin area with pressure lavage and wound VAC placement successfully by Dr. Pardo, she was seen in her room, she just got up from the recovery room, she is getting Dilaudid for pain control, she denies any chest pain, shortness of breath at this time, her son was at bedside, he was updated about her current condition, she remains on daptomycin due to methicillin-resistant Staphylococcus aureus, physical therapy evaluation in the next 24 hours, continue current pain management, continue aggressive pulmonary toileting, follow-up with labs in the morning 10/08: Patient is laying down in bed in no apparent distress, she denies any chest pain at this time, she has no shortness of breath at this time she denies any abdominal pain nausea vomiting or diarrhea, she continues to be on daptomycin due to methicillin-resistant Staphylococcus aureus, patient is not enjoying the food, and she is feeling a bit nauseated, she is controlling her pain very well, has been having the wound VAC in place, we will continue follow-up with the patient very closely, 10/09: Patient continue to be laying down in bed in no apparent distress, she feeling better today, she continues to have a poor appetite, her blood cultures positive for methicillin-resistant Staphylococcus aureus currently on daptomycin, infectious disease following, vascular surgery following, continue to have a wound VAC in place, we will continue to work with the patient very closely, laboratory evaluation is better and her hemoglobin is down a bit at 7.8, transfuse for hemoglobin less than 7, start the patient on iron 325 mg ora lly twice every day. 10/10: Patient is feeling a bit better today, she has no fever or chills, she co ntinues to have significant pain in the left groin area, she has the wound VAC in place, she continues to be on daptomycin, repeated blood culture still pending the time decrease her IV fluid to KVO, continue to work with physical therapy, patient would like to go eventually home with home PT as well as home IV antibiotic we will continue to follow-up with the patient very closely at this time. 10/11: Patient continues to be afebrile at this point in time, she did have repeated blood culture that appears to be negative so far, patient is being treated for MRSA bacteremia due to infected left groin wound post femorofemoral bypass post washout of the wound and a wound VAC placed that was done 10/07/2024, will continue the same treatment plan since the patient is allergic to vancomycin she has been started on daptomycin as well as Flagyl due to bacteroids along with MRSA patient has been tolerated treatment very well, decrease IV fluid yesterday, patient was given a dose of Lasix yesterday because of increased swelling, continue physical therapy and Occupational Therapy I offered the patient to go to subacute rehabilitation however the patient is wanted to go home with a home antibiotic. 10/12: Patient is doing better today, she is laying down in bed in no apparent distress, I updated her ex- per her request Ramirez, we will continue current treatment plan, patient has not had any fever or chills over the last 24 hours,repeated blood cultures so far negative, patient has been on daptomycin, she has been followed by infectious disease as well as by vascular surgery continue current treatment plan, will plan for the patient to go home with home IV antibiotic. 10/13: Patient is doing well she has no fever or chills at this time, she has no abdominal pain, nausea vomiting or diarrhea repeated blood culture so far negative, initial blood culture showed MRSA bacteremia, she has been daptomycin and Flagyl and just added rifampin by ID with that, PICC line to be placed and today, patient will be able to be discharged hopefully in the next 24 hours. Patient is electing to go home with home health [facility] antibiotic infusion. REVIEW OF SYSTEMS Constitutional: No fever, No chills, no night sweats. Report groin wound status post femorofemoral bypasss no weight loss. Reports weakness, Reports fatigue no lethargy. NO daytime sleepiness. HEENT: No headache. No dizziness. No nasal drainage or congestion. No epistaxis. No sore throat. Lungs: No shortness of breath, no cough, no sputum production. No wheezing. Cardiovascular: No chest pain, no lower extremity edema. No palpitations. No paroxysmal nocturnal dyspnea. No orthopnea. No lightheadedness or dizziness. No syncopal episodes. Abdominal: Reports no abdominal pain. Reports nausea, no vomiting. no diarrhea. No constipation. No bloody or tarry stools. good appetite. Genitourinary: No dysuria, increased frequency, urgency. No urinary retention. Musculoskeletal: No myalgias. positive for muscle weakness, reports balance issues. Integumentary: Right AKA , left lower extremity is intact, pulses by Doppler, left groin with the wound VAC. Neurologic: No aphasia. No facial droop. No change in mentation. No head injury. No headache. No paralysis. No paresthesia. Psychiatric: Reports depression. Reports anxiety. No mood swings. Endocrine: abnormal blood sugars. positive for weight change. No excessive sweating or thirst. No cold intolerance. PHYSICAL EXAMINATION Gen: This is a 64-year-old female. She is resting in bed i no acute distress HEENT: Head is atraumatic, normocephalic. Pupils equal, round. Sclerae is anicteric. Mucous members of the mouth are somewhat dry. NECK: Supple. No JVD. No lymphadenopathy. No thyromegaly. LUNGS: Clear to auscultation. No wheezes or rhonchi. No intercostal retra ctions. 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 ABDOMEN: Soft, non tender non distended and no rebound or guarding positive bowel sounds EXTREMITIES: Right above-knee amputation , left lower extremity is intact. Left groin area with wound VAC in place and minimal tenderness. NEUROLOGICAL: Patient is awake, alert and oriented x3. Cranial nerves 2 through 12 are grossly intact muscle power were 4 out of 5 in upper extremity is, and 3 out of 5 in the left lower extremity. She does have a right above-knee amputation. ASSESSMENT AND PLAN 1. Postoperative day # 7 status post left groin wound washout with the pulse lavage and wound VAC placement. Follow-up higher femorofemoral bypass using PTFE. Continue patient on daptomycin since the patient culture is showing methicillin-resistant Staphylococcus aureus, continue metronidazole 500 mg orally 3 times every day infectious and vascular surgery are following continue current pain management, follow-up with the patient very closely. Repeated bl ood cultures so far is negative 2. MRSA bacteremia due to infected left femoral-femoral bypass wound. Continue IV antibiotic, repeat blood culture, monitor the patient very closely,repeated cultures after the daptomycin, repeated blood culture so far negative. 3. Coronary artery disease with recent stent of the RCA due to recent in-stent restenosis. Patient has had previous multiple cardiac stents to the RCA and mid LAD, obtuse marginal branch. Continue patient on aspirin 81 mg daily, Lop ressor 25 mg twice daily, Atorvastatin 80 mg po daily . 4. Diabetes mellitus type 2, we will continue Lantus 46 units units at bedtime, along with a sliding scale insulin, continue with with pioglitazone 30 mg once every day, continue Farxiga 10 mg once every day . 5. Mixed hyperlipidemia. Hold atorvastatin due to the interaction with daptomycin for now, monitor the patient at bedtime, keep LDL 55-70. 6. Chronic DVT and PEs. Continue patient on eliquis 5 mg twice daily. 7. Hypertension and hypertensive cardiovascular disease. Continue metoprolol 25 mg orally twice every day. Monitor the patient blood pressure very closely. 8. Gastroesophageal reflux disease and GI prophylaxis. Continue Pantoprazole 40 mg daily 9. Diabetic neuropathy. we will continue wit Gabapentin 400 mg po tid. 10. Generalized anxiety disorder, recurrent depression. Continue Cymbalta 60 mg po daily. 11. DVT prophylaxis. Continue Eliquis 5 mg po bid 12. GI prophylaxis. Continue patient on pantoprazole 40 mg once every day 13. Hypomagnesemia status post replacement. 14. Physical therapy evaluation 15. maintenance and repair worker consultation for discharge planning. 16. Patient is full code. 17. plan for home tomorrow morning. Objective - Vital Signs Vital signs: Vital Signs Temp 98 F 10/13/24 01:37 Pulse 68 10/13/24 01:37 Resp 16 10/13/24 01:37 BP 121/66 10/13/24 01:37 Pulse Ox 93 L 10/13/24 01:37 FiO2 Intake & Output 10/12/24 10/12/24 10/13/24 06:59 18:59 06:59 Intake Total 590 780 Output Total 600 Balance 590 180 Weight 85.275 kg Intake: Oral 590 780 Output: Urine 600 Other: Voiding Method Diaper Diaper Bedpan Diaper # Voids 4 1 3 # Bowel Movements 4 1 2 - Labs CBC & Chem 7: 10/12/24 04:39 10/12/24 04:39 Labs: Abnormal Lab Results - Last 24 Hours (Table) 10/12/24 10/12/24 10/12/24 Range/Units 04:39 04:39 06:50 WBC 12.95 H (4.50-10.00) X 10*3/uL RBC 3.30 L (4.10-5.20) X 10*6/uL Hgb 7.9 L (12.0-15.0) g/dL Hct 26.4 L (37.2-46.3) % MCH 23.9 L (27.0-32.0) pg MCHC 29.9 L (32.0-37.0) g/dL RDW 18.6 H (11.5-14.5) % Immature Gran # 0.41 H (0.00-0.04) X 10*3/uL Neutrophils # 9.91 H (1.80-7.70) X 10*3/uL Eosinophils # 0.60 H (0.04-0.35) X 10*3/uL NRBC/100 WBC Diff 0.02 H (0.00-0.01) X 10*3/uL Sodium 134 L (135-145) mmol/L Glucose 214 H (70-110) mg/dL POC Glucose (mg/dL) 205 H (70-110) mg/dL Calcium 8.5 L (8.7-10.3) mg/dL Total Bilirubin 0.2 L (0.3-1.2) mg/dL AST 12 L (13-35) U/L ALT <5 L (8-44) U/L Total Protein 5.0 L (6.2-8.2) g/dL Albumin 2.0 L (3.8-4.9) g/dL Albumin/Globulin Ratio 0.67 L (1.60-3.17) Ratio 10/12/24 10/12/24 10/12/24 Range/Units 12:38 16:56 20:17 WBC (4.50-10.00) X 10*3/uL RBC (4.10-5.20) X 10*6/uL Hgb (12.0-15.0) g/dL Hct (37.2-46.3) % MCH (27.0-32.0) pg MCHC (32.0-37.0) g/dL RDW (11.5-14.5) % Immature Gran # (0.00-0.04) X 10*3/uL Neutrophils # (1.80-7.70) X 10*3/uL Eosinophils # (0.04-0.35) X 10*3/uL NRBC/100 WBC Diff (0.00-0.01) X 10*3/uL Sodium (135-145) mmol/L Glucose (70-110) mg/dL POC Glucose (mg/dL) 234 H 284 H 227 H (70-110) mg/dL Calcium (8.7-10.3) mg/dL Total Bilirubin (0.3-1.2) mg/dL AST (13-35) U/L ALT (8-44) U/L Total Protein (6.2-8.2) g/dL Albumin (3.8-4.9) g/dL Albumin/Globulin Ratio (1.60-3.17) Ratio
[2024-10-13 12:29] LABS: Glucose,Whole Blood 273 mg/dL (70-110)
--- NOTE | 2024-10-13 13:36 | P.PN ---
Subjective Progress Note Date: 10/13/24 Principal diagnosis: Reason for follow-up is left groin infected wound Patient is a 64-year-old female with a past medical history significant for Coronary Artery Disease (CAD), Cancer, CVA/TIA, Diabetes Mellitus, Deep Vein Thrombosis (DVT), GERD/Reflux, Memory Impairment, Osteoarthritis (OA), Pulmonary Embolus (PE), Vascular Disorder who recently underwent bilateral common femoral artery thromboendarterectomy and femorofemoral bypass on 09/14/2024 presented to hospital with bilateral groin pain and draining wound to the left groin area has been diagnosed with surgical site infection prompted this consultation. Patient did have left groin washout and placement of wound VAC procedure completed on 10/07/2024. On today's evaluation that is 10/13/2024, Patient is afebrile this morning patient denies having any chest pain shortness of breath or cough, the patient i s currently on room air, patient denies any abdominal pain no diarrhea no nausea no vomiting still complaining of burning pain to the left groin area. Patient white count is down to 11.30, creatinine is 1.0 blood culture repeat has been negative Objective - Vital Signs Vital signs: Vital Signs Temp 98.4 F 10/13/24 07:16 Pulse 57 L 10/13/24 07:16 Resp 16 10/13/24 07:16 BP 125/76 10/13/24 07:16 Pulse Ox 93 L 10/13/24 07:16 FiO2 Intake & Output 10/12/24 10/13/24 10/13/24 18:59 06:59 18:59 Intake Total 780 110 Output Total 600 Balance 180 110 Weight 85.275 kg Intake: Intake, IV Titration 110 Amount Sodium Chloride 0.9% 1, 110 000 ml @ 10 mls/hr IV . Q24H [facility] Rx#:[id number] Oral 780 Output: Urine 600 Other: Voiding Method Diaper Bedpan Diaper Diaper # Voids 1 3 # Bowel Movements 1 2 - Exam GENERAL DESCRIPTION: Middle-age female e lying in bed in no distress RESPIRATORY SYSTEM: Unlabored breathing , decreased breath sounds at bases HEART: S1 S2 regular rate and rhythm , ABDOMEN: Soft , no tenderness EXTREMITIES: Left groin currently covered with a wound VAC - Labs CBC & Chem 7: 10/13/24 04:30 10/13/24 04:30 Labs: Abnormal Lab Results - Last 24 Hours (Table) 10/12/24 10/12/24 10/13/24 Range/Units 16:56 20:17 04:30 WBC 11.30 H (4.50-10.00) X 10*3/uL RBC 3.30 L (4.10-5.20) X 10*6/uL Hgb 7.8 L (12.0-15.0) g/dL Hct 26.5 L (37.2-46.3) % MCH 23.6 L (27.0-32.0) pg MCHC 29.4 L (32.0-37.0) g/dL RDW 18.6 H (11.5-14.5) % Immature Gran # 0.28 H (0.00-0.04) X 10*3/uL Neutrophils # 8.49 H (1.80-7.70) X 10*3/uL Eosinophils # 0.71 H (0.04-0.35) X 10*3/uL NRBC/100 WBC Diff 0.02 H (0.00-0.01) X 10*3/uL PT (10.0-12.5) sec INR (<1.2) Glucose (70-110) mg/dL POC Glucose (mg/dL) 284 H 227 H (70-110) mg/dL Calcium (8.7-10.3) mg/dL Total Bilirubin (0.3-1.2) mg/dL ALT (8-44) U/L Total Protein (6.2-8.2) g/dL Albumin (3.8-4.9) g/dL Albumin/Globulin Ratio (1.60-3.17) Ratio 10/13/24 10/13/24 10/13/24 Range/Units 04:30 07:16 08:45 WBC (4.50-10.00) X 10*3/uL RBC (4.10-5.20) X 10*6/uL Hgb (12.0-15.0) g/dL Hct (37.2-46.3) % MCH (27.0-32.0) pg MCHC (32.0-37.0) g/dL RDW (11.5-14.5) % Immature Gran # (0.00-0.04) X 10*3/uL Neutrophils # (1.80-7.70) X 10*3/uL Eosinophils # (0.04-0.35) X 10*3/uL NRBC/100 WBC Diff (0.00-0.01) X 10*3/uL PT 12.8 H (10.0-12.5) sec INR 1.2 H (<1.2) Glucose 130 H (70-110) mg/dL POC Glucose (mg/dL) 117 H (70-110) mg/dL Calcium 8.2 L (8.7-10.3) mg/dL Total Bilirubin <0.2 L (0.3-1.2) mg/dL ALT 6 L (8-44) U/L Total Protein 5.1 L (6.2-8.2) g/dL Albumin 2.0 L (3.8-4.9) g/dL Albumin/Globulin Ratio 0.65 L (1.60-3.17) Ratio /06/29 Range/Units 12:23 WBC (4.50-10.00) X 10*3/uL RBC (4.10-5.20) X 10*6/uL Hgb (12.0-15.0) g/dL Hct (37.2-46.3) % MCH (27.0-32.0) pg MCHC (32.0-37.0) g/dL RDW (11.5-14.5) % Immature Gran # (0.00-0.04) X 10*3/uL Neutrophils # (1.80-7.70) X 10*3/uL Eosinophils # (0.04-0.35) X 10*3/uL NRBC/100 WBC Diff (0.00-0.01) X 10*3/uL PT (10.0-12.5) sec INR (<1.2) Glucose (70-110) mg/dL POC Glucose (mg/dL) 273 H (70-110) mg/dL Calcium (8.7-10.3) mg/dL Total Bilirubin (0.3-1.2) mg/dL ALT (8-44) U/L Total Protein (6.2-8.2) g/dL Albumin (3.8-4.9) g/dL Albumin/Globulin Ratio (1.60-3.17) Ratio Microbiology - Last 24 Hours (Table) 10/08/24 04:09 Blood Culture - Final Blood Assessment and Plan (1) Allergy to vancomycin Current Visit: Yes Status: Acute Code(s): Z88.1 - ALLERGY STATUS TO OTHER ANTIBIOTIC AGENTS SNOMED Code(s): 050414815 (2) Wound infection after surgery Current Visit: No Status: Acute Code(s): T81.49XA - INFECTION FOLLOWING A PROCEDURE, OTHER SURGICAL SITE, INIT SNOMED Code(s): 32439638 (3) Leukocytosis Current Visit: No Status: Acute Code(s): D72.829 - ELEVATED WHITE BLOOD CELL COUNT, UNSPECIFIED SNOMED Code(s): 983601506 Plan: 1-patient presented to hospital with increasing pain to bilateral groin area and drainage from the left groin in this patient who recently did have bilateral common femoral artery thromboendarterectomy and femorofemoral bypass on 09/14/2024 now presenting with increasing pain swelling erythema and drainage concerning for surgical site of infection we will need to cover for resistant gram-positive as well as gram-negative pathogen. 2-patient with vancomycin allergy that will limit number of antibiotics safe to use. 3-patient is status post left groin washout and application of wound VAC placement completed on 10/07/2024 4blood culture positive for MRSA local culture growing MRSA as well as bacteroids, blood culture repeat has been negative so far 5patient is afebrile and repeat blood culture negative PICC line has been ordered outpatient IV daptomycin prescription provided the case work aide and prescription for oral Flagyl has been sent to the pharmacy question concern answered Dictation was produced using [employer] software. please excuse any grammatical, word or spelling errors. Time with Patient: Less than 30
[2024-10-13] MEDS: IRON POLYSACCHARIDES COMPLEX 150 MG CAP PO SCH (16:08)
[2024-10-13 17:32] LABS: Glucose,Whole Blood 246 mg/dL (70-110)
[2024-10-13 19:35] VITALS: RESP 16
[2024-10-13 20:17] LABS: Glucose,Whole Blood 142 mg/dL (70-110)
[2024-10-14 07:13] LABS: Glucose,Whole Blood 67 mg/dL (70-110)
[2024-10-14 07:34] LABS: Glucose,Whole Blood 71 mg/dL (70-110)
[2024-10-14 08:36] LABS: Basophils # (A) 0.05 X 10*3/uL (0.00-0.10); Basophils % (A) 0.5 %; Eosinophils # (A) 0.58 X 10*3/uL (0.04-0.35); Eosinophils % (A) 5.3 %; HCT 31.4 % (37.2-46.3); HGB 9.2 g/dL (12.0-15.0); Lymphocytes # (A) 1.17 X 10*3/uL (0.90-5.00); Lymphocytes % (A) 10.7 %; MCH 23.5 pg (27.0-32.0); MCHC 29.3 g/dL (32.0-37.0); MCV 80.1 FL (80.0-97.0); Monocytes # (A) 0.61 X 10*3/uL (0.20-1.00); Monocytes % (A) 5.6 %; NRBC Per 100 WBC 0.02 X 10*3/uL (0.00-0.01); Neutrophils % (A) 76.2 %; Platelet Count 375 X 10*3/uL (140-440); RBC 3.92 X 10*6/uL (4.10-5.20)
[2024-10-14 08:59] LABS: ALT 8 U/L (8-44); AST 16 U/L (13-35); Albumin 2.3 g/dL (3.8-4.9); Albumin/Globulin Ratio 0.66 Ratio (1.60-3.17); Alkaline Phosphatase 85 U/L (41-126); Blood Urea Nitrogen 10.7 mg/dL (9.0-27.0); Calcium 8.5 mg/dL (8.7-10.3); Carbon Dioxide 29.7 mmol/L (21.6-31.8); Chloride 102 mmol/L (96-109); Globulin 3.5 g/dL (1.6-3.3); Glucose 52 mg/dL (70-110); Potassium 4.5 mmol/L (3.5-5.5); Sodium 141 mmol/L (135-145); Total Bilirubin 0.2 mg/dL (0.3-1.2); Total Protein 5.8 g/dL (6.2-8.2)
--- NOTE | 2024-10-14 09:48 | P.DS ---
Providers Date of admission: 10/05/24 14:32 Expected date of discharge: 10/14/24 Attending physician: Tramaine Tejeda Consults: 10/05/24 13:50 Consult Physician Urgent Consulting Provider: Heraclio Hughes Consult Reason/Comments: Incision site infection Do you want consulting provider notified?: Yes Consult Physician Urgent Consulting Provider: Zaira Sheppard Consult Reason/Comments: Incision site infection Do you want consulting provider notified?: Yes 10/08/24 14:34 Consult Physician Routine Consulting Provider: Charlie Bailey Consult Reason/Comments: Possible rotational muscle flap, postop wound infection with fem-fem bypass Do you want consulting provider notified?: Yes Primary care physician: Tramaine Tejeda Hospital Course: HISTORY OF PRESENT ILLNESS This is a 64-year-old female patient of mine with history of CAD with multiple cardiac stents in mid RCA, mid LAD, obtuse marginal branch and followed by Dr. Bill closely, peripheral artery disease with previous stenting done as well has amputation of the right great toe secondary to osteomyelitis, CVA with no residual deficits, hypertension, COPD, diabetes mellitus type 2, previous multiple DVT and PE requiring chronic anticoagulation on eliquis, history of GI bleed secondary to antral gastritis, esophagitis, vitamin D deficiency, history of left humerus fracture, history of PAD post right AKA and CAD post PCI of the RCA with intermediate disease of the LAD, patient underwent bilateral femoral thromboendarterectomy with femorofemoral bypass that was done successfully by Dr. Pardo on 09/14/2024 and the patient was discharged home was doing fine, tell last Saturday when she developed to have a significant diarrheal illness, associated with generalized fatigue and weakness not able to do anything, was not able to keep anything down, was supposed to go to see Dr. Pardo on for follow-up, but she could not make it because she was extremely weak and her son was not available to take her patient apparently stayed at home until her son came and and she ended up calling 911 for the patient to be brought into the emergency department because of generalized weakness not able to ambulate, and transfer herself, she ended up coming to the emergency department because of significant erythema and drainage from the left groin area where the surgical incision was done, there was concerns about infection in that area, patient was started on cefepime 2 g piggyback every 8 hours, daptomycin 350 mg IV piggyback every 24 hours, blood culture, x 2, wound culture aerobic and anaerobic, vascular surgery consultation as well as infectious disease consultation was obtained, patient also was found to have a severe hypokalemia, she will be replaced per protocol, she will be given a total of 120 mill equivalent of potassium today repeat CMP tomorrow morning. I will repeat her potassium this evening. 10/06: Patient is laying down in bed in minimal distress, she complains of increased pain in the left groin area, she continues to have a lot of drainage from the wound, she was seen earlier by vascular surgery who recommended to go for a washout of the wound, possible wound VAC placement later on today, patient blood glucose over was quite elevated, she did not receive her long-acting yesterday, I placed the patient on her sliding scale insulin plus her regular dose of insulin, will follow-up with the patient very closely, repeat laboratory evaluation in the next 24 hours. 10/07: Patient underwent washout of the left groin area with pressure lavage and wound VAC placement successfully by Dr. Pardo, she was seen in her room, she just got up from the recovery room, she is getting Dilaudid for pain control, she denies any chest pain, shortness of breath at this time, her son was at bedside, he was updated about her current condition, she remains on daptomycin due to methicillin-resistant Staphylococcus aureus, physical therapy evaluation in the next 24 hours, continue current pain management, continue aggressive pulmonary toileting, follow-up with labs in the morning 10/08: Patient is laying down in bed in no apparent distress, she denies any chest pain at this time, she has no shortness of breath at this time she denies any abdominal pain nausea vomiting or diarrhea, she continues to be on daptomycin due to methicillin-resistant Staphylococcus aureus, patient is not enjoying the food, and she is feeling a bit nauseated, she is controlling her pain very well, has been having the wound VAC in place, we will continue follow-up with the patient very closely, 10/09: Patient continue to be laying down in bed in no apparent distress, she feeling better today, she continues to have a poor appetite, her blood cultures positive for methicillin-resistant Staphylococcus aureus currently on daptomycin, infectious disease following, vascular surgery following, continue to have a wound VAC in place, we will continue to work with the patient very closely, laboratory evaluation is better and her hemoglobin is down a bit at 7.8, transfuse for hemoglobin less than 7, start the patient on iron 325 mg orally twice every day. 10/10: Patient is feeling a bit better today, she has no fever or chills, she continues to have significant pain in the left groin area, she has the wound VAC in place, she continues to be on daptomycin, repeated blood culture still pending the time decrease her IV fluid to KVO, continue to work with physical therapy, patient would like to go eventually home with home PT as well as home IV antibiotic we will continue to follow-up with the patient very closely at this time. 10/11: Patient continues to be afebrile at this point in time, she did have repeated blood culture that appears to be negative so far, patient is being treated for MRSA bacteremia due to infected left groin wound post femorofemoral bypass post washout of the wound and a wound VAC placed that was done 10/07/2024, will continue the same treatment plan since the patient is allergic to vancomycin she has been started on daptomycin as well as Flagyl due to bacteroids along with MRSA patient has been tolerated treatment very well, decrease IV fluid yesterday, patient was given a dose of Lasix yesterday because of increased swelling, continue physical therapy and Occupational Therapy I of fered the patient to go to subacute rehabilitation however the patient is wanted to go home with a home antibiotic. 10/12: Patient is doing better today, she is laying down in bed in no apparent distress, I updated her ex- per her request Ramirez, we will continue current treatment plan, patient has not had any fever or chills over the last 24 hours,repeated blood cultures so far negative, patient has been on daptomycin, she has been followed by infectious disease as well as by vascular surgery continue current treatment plan, will plan for the patient to go home with home IV antibiotic. 10/13: Patient is doing well she has no fever or chills at this time, she has no abdominal pain, nausea vomiting or diarrhea repeated blood culture so far negative, initial blood culture showed MRSA bacteremia, she has been daptomycin and Flagyl and just added rifampin by ID with that, PICC line to be placed and today, patient will be able to be discharged hopefully in the next 24 hours. Patient is electing to go home with home health residential antibiotic infusion. 10/14: Patient is laying down in bed in no apparent distress, she did have a PICC line placed yesterday, she is to continue IV antibiotic per ID recommendation, daptomycin, continue rifampin, continue metronidazole as well, home health care consult is to follow-up with the patient as an outpatient patient will follow-up with me as an outpatient in 1 week. She is to follow-up with the infectious disease as well as vascular surgery. Discharge diagnoses: 1. Postoperative day # 8 status post left groin wound washout with the pulse lavage and wound VAC placement for a prior femorofemoral bypass surgery 2. MRSA bacteremia due to infected left femoral-femoral bypass wound. 3. Coronary artery disease with recent stent of the RCA due to recent in-stent restenosis. 4. Diabetes mellitus type 2 uncontrolled. 5. Mixed hyperlipidemia. 6. Chronic DVT and PEs. 7. Hypertension and hypertensive cardiovascular disease. 8. Gastroesophageal reflux disease 9. Diabetic neuropathy. 10. Generalized anxiety disorder 11. Depressive disorder. 12. Hypomagnesemia. 13. Status post right above-knee amputation. 14. Medical debility. 15. Anemia multifactorial. Plan - Discharge Summary New Discharge Prescriptions: New DAPTOmycin [Cubicin] 500 mg IV DAILY #40 each metroNIDAZOLE [Flagyl] 500 mg PO TID #90 tab No Action Ergocalciferol (Vitamin D2) [Drisdol (50,000 Iu)] 1,250 mcg PO GUERRERO@0800 INSULIN ASPART (NovoLOG) [NovoLOG (formulary)] See Protocol SQ ACHS Ipratropium-Albuterol Nebulize [Duoneb 0.5 mg-3 mg/3 ml Soln] 3 ml INHALATION RT-Q6H PRN PRN Reason: Shortness Of Breath Gabapentin [Neurontin] 400 mg PO TID Insulin Glargine,Hum.rec.anlog [Lantus Solostar Pen] 46 units SQ HS Dapagliflozin Propanediol [Farxiga] 10 mg PO DAILY Cyclobenzaprine HCl 10 mg PO HS PRN PRN Reason: pain/spasms Nitroglycerin Sl Tabs [Nitrostat] 0.4 mg SL Q5M PRN PRN Reason: Chest Pain Apixaban [Eliquis] 5 mg PO BID DULoxetine HCL [Cymbalta] 60 mg PO QAM Metoprolol Tartrate [Lopressor] 25 mg PO BID Magnesium Oxide [Mag-Ox] 500 mg PO DAILY Melatonin 3 mg PO HS@2100 PRN PRN Reason: sleep Spironolactone 25 mg PO DAILY Atorvastatin Calcium [Lipitor] 80 mg PO DAILY INSULIN ASPART (NovoLOG) [NovoLOG (formulary)] 12 unit SQ TID@0800,1200,1700 Pantoprazole [Protonix] 40 mg PO QAM Aspirin EC [Ecotrin Low Dose] 81 mg PO DAILY Pioglitazone [Actos] 30 mg PO DAILY oxyCODONE-APAP 7.5-325MG [Percocet 7.5-325 mg] 1 tab PO Q6HR PRN PRN Reason: Pain Discharge Medication List Ergocalciferol (Vitamin D2) [Drisdol (50,000 Iu)] 1,250 mcg PO GUERRERO@0800 04/01/23 [History] Nitroglycerin Sl Tabs [Nitrostat] 0.4 mg SL Q5M PRN 04/01/23 [History] Apixaban [Eliquis] 5 mg PO BID 05/20/23 [History] DULoxetine HCL [Cymbalta] 60 mg PO QAM 07/04/23 [History] INSULIN ASPART (NovoLOG) [NovoLOG (formulary)] See Protocol SQ ACHS 07/04/23 [History] Metoprolol Tartrate [Lopressor] 25 mg PO BID 07/04/23 [History] Magnesium Oxide [Mag-Ox] 500 mg PO DAILY 08/09/23 [History] Melatonin 3 mg PO HS@2100 PRN 08/09/23 [History] Spironolactone 25 mg PO DAILY 08/09/23 [History] Atorvastatin Calcium [Lipitor] 80 mg PO DAILY 09/16/23 [History] Gabapentin [Neurontin] 400 mg PO TID 10/22/23 [History] INSULIN ASPART (NovoLOG) [NovoLOG (formulary)] 12 unit SQ TID@0800,1200,1700 10/22/23 [History] Ipratropium-Albuterol Nebulize [Duoneb 0.5 mg-3 mg/3 ml Soln] 3 ml INHALATION RT-Q6H PRN 10/22/23 [History] Dapagliflozin Propanediol [Farxiga] 10 mg PO DAILY 02/27/24 [History] Insulin Glargine,Hum.rec.anlog [Lantus Solostar Pen] 46 units SQ HS 02/27/24 [History] Pantoprazole [Protonix] 40 mg PO QAM 02/27/24 [History] Aspirin EC [Ecotrin Low Dose] 81 mg PO DAILY 07/08/24 [History] Cyclobenzaprine HCl 10 mg PO HS PRN 09/09/24 [History] Pioglitazone [Actos] 30 mg PO DAILY 10/05/24 [History] oxyCODONE-APAP 7.5-325MG [Percocet 7.5-325 mg] 1 tab PO Q6HR PRN 10/05/24 [History] DAPTOmycin [Cubicin] 500 mg IV DAILY #40 each 10/13/24 [Rx] metroNIDAZOLE [Flagyl] 500 mg PO TID #90 tab 10/13/24 [Rx] Follow up Appointment(s)/Referral(s): Charlie Bailey MD [STAFF PHYSICIAN] - 10/27/24 1:00 pm (The office will mail you new patient paperwork. Please complete and bring to appointment with you. Also take your insurance cards and picture ID.) Tramaine Tejeda MD [Primary Care Provider] - 1-2 days Heraclio Hughes DO [Doctor of Osteopathic Medicine] - 10/22/24 11:45 am [facility], [REFERRING] - 1 Week ([facility] will call you for possible delivery time after discharge ) [facility] [NON-STAFF] - 1 Week ( [facility] will call you after discharge to schedule your first in home session ) Zaira Sheppard MD [STAFF PHYSICIAN] - 1 Week Activity/Diet/Wound Care/Special Instructions: Wound VAC to left groin change Saturday and Fridays
[2024-10-14 11:45] VITALS: BP 152/67; PULSE 67; TEMP 97.8
--- NOTE | 2024-10-14 12:56 | P.PN ---
Subjective Progress Note Date: 10/14/24 Principal diagnosis: Reason for follow-up is left groin infected wound Patient is a 64-year-old female with a past medical history significant for Coronary Artery Disease (CAD), Cancer, CVA/TIA, Diabetes Mellitus, Deep Vein Thrombosis (DVT), GERD/Reflux, Memory Impairment, Osteoarthritis (OA), Pulmonary Embolus (PE), Vascular Disorder who recently underwent bilateral common femoral artery thromboendarterectomy and femorofemoral bypass on 09/14/2024 presented to hospital with bilateral groin pain and draining wound to the left groin area has been diagnosed with surgical site infection prompted this consultation. Patient did have left groin washout and placement of wound VAC procedure completed on 10/07/2024. On today's evaluation that is 10/14/2024,the patient denies any fever or any chills, patient is breathing comfortably on room air, the patient denies chest pain shortness of breath and no significant cough, patient denies abdominal pain, no nausea vomiting or diarrhea. Pain to the left groin has decreased in intensity. The patient white count is down to 10.90, creatinine is 1.0 Objective - Vital Signs Vital signs: Vital Signs Temp 97.8 F 10/14/24 11:45 Pulse 67 10/14/24 11:45 Resp 16 10/14/24 11:45 BP 152/67 10/14/24 11:45 Pulse Ox 94 L 10/14/24 11:45 FiO2 Intake & Output 10/13/24 10/14/24 10/14/24 18:59 06:59 18:59 Intake Total 1300 1320 Output Total 1400 1800 Balance 1300 -1400 -480 Intake: Intake, IV Titration 1300 Amount DAPTOmycin 500 mg In 100 Sodium Chloride 0.9% 50 ml @ 100 mls/hr IVPB Q24HR AGNES Rx#:[id number] Sodium Chloride 0.9% 1, 1200 000 ml @ 10 mls/hr IV . Q24H AGNES Rx#:[id number] Oral 1320 Output: Urine 1400 1800 Other: Voiding Method Diaper External Catheter External Catheter # Voids 1 - Exam GENERAL DESCRIPTION: Middle-age female e lying in bed in no distress RESPIRATORY SYSTEM: Unlabored breathing , decreased breath sounds at bases HEART: S1 S2 regular rate and rhythm , ABDOMEN: Soft , no tenderness EXTREMITIES: Left groin wound base with minimal slough tissue no significant redness - Labs CBC & Chem 7: 10/14/24 05:21 10/14/24 05:21 Labs: Abnormal Lab Results - Last 24 Hours (Table) 10/13/24 10/13/24 10/14/24 Range/Units 17:18 20:15 05:21 WBC 10.90 H (4.50-10.00) X 10*3/uL RBC 3.92 L (4.10-5.20) X 10*6/uL Hgb 9.2 L (12.0-15.0) g/dL Hct 31.4 L (37.2-46.3) % MCH 23.5 L (27.0-32.0) pg MCHC 29.3 L (32.0-37.0) g/dL RDW 19.0 H (11.5-14.5) % Immature Gran # 0.19 H (0.00-0.04) X 10*3/uL Neutrophils # 8.30 H (1.80-7.70) X 10*3/uL Eosinophils # 0.58 H (0.04-0.35) X 10*3/uL NRBC/100 WBC Diff 0.02 H (0.00-0.01) X 10*3/uL BUN/Creatinine Ratio (12.00-20.00) Ratio Glucose (70-110) mg/dL POC Glucose (mg/dL) 246 H 142 H (70-110) mg/dL Calcium (8.7-10.3) mg/dL Total Bilirubin (0.3-1.2) mg/dL Total Protein (6.2-8.2) g/dL Albumin (3.8-4.9) g/dL Globulin (1.6-3.3) g/dL Albumin/Globulin Ratio (1.60-3.17) Ratio 10/14/24 10/14/24 Range/Units 05:21 07:12 WBC (4.50-10.00) X 10*3/uL RBC (4.10-5.20) X 10*6/uL Hgb (12.0-15.0) g/dL Hct (37.2-46.3) % MCH (27.0-32.0) pg MCHC (32.0-37.0) g/dL RDW (11.5-14.5) % Immature Gran # (0.00-0.04) X 10*3/uL Neutrophils # (1.80-7.70) X 10*3/uL Eosinophils # (0.04-0.35) X 10*3/uL NRBC/100 WBC Diff (0.00-0.01) X 10*3/uL BUN/Creatinine Ratio 10.70 L (12.00-20.00) Ratio Glucose 52 L (70-110) mg/dL POC Glucose (mg/dL) 67 L (70-110) mg/dL Calcium 8.5 L (8.7-10.3) mg/dL Total Bilirubin 0.2 L (0.3-1.2) mg/dL Total Protein 5.8 L (6.2-8.2) g/dL Albumin 2.3 L (3.8-4.9) g/dL Globulin 3.5 H (1.6-3.3) g/dL Albumin/Globulin Ratio 0.66 L (1.60-3.17) Ratio Microbiology - Last 24 Hours (Table) 10/08/24 04:09 Blood Culture - Final Blood Assessment and Plan (1) Allergy to vancomycin Status: Acute Code(s): Z88.1 - ALLERGY STATUS TO OTHER ANTIBIOTIC AGENTS SNOMED Code(s): 694358307 (2) Wound infection after surgery Status: Acute Code(s): T81.49XA - INFECTION FOLLOWING A PROCEDURE, OTHER SURGICAL SITE, INIT SNOMED Code(s): 24059108 (3) Leukocytosis Status: Acute Code(s): D72.829 - ELEVATED WHITE BLOOD CELL COUNT, UNSPECIFIED SNOMED Code(s): 660250409 Plan: 1-patient presented to hospital with increasing pain to bilateral groin area and drainage from the left groin in this patient who recently did have bilateral common femoral artery thromboendarterectomy and femorofemoral bypass on 09/14/2024 now presenting with increasing pain swelling erythema and drainage concerning for surgical site of infection we will need to cover for resistant gram-positive as well as gram-negative pathogen. 2-patient with vancomycin allergy that will limit number of antibiotics safe to use. 3-patient is status post left groin washout and application of wound VAC placement completed on 10/07/2024 4blood culture positive for MRSA local culture growing MRSA as well as bacteroids, blood culture repeat has been negative so far 5patient is afebrile and repeat blood culture negative patient did have PICC line placement outpatient IV antibiotic daptomycin prescription provided the case making machine operator prescription for the Flagyl was sent to close the patient follow-up Dictation was produced using [employer] dictation software. please excuse any grammatical, word or spelling errors. Time with Patient: Less than 30
== END 2024-10-14 12:50 | disposition home health service (06) | DRG 857 ==
LOC: EC 11:29 → 4SSUR 14:32 → 5NMEDONC 10-06 05:08
PROVIDERS: ADMIT Internal Medicine; ATTEND Internal Medicine
PROC: 0JD80ZZ Extraction of Abdomen Subcutaneous Tissue and Fascia, Open Approach (ICD-10-PCS; principal; 2024-10-07 13:05)
PROC: 05HA33Z Insertion of Infusion Device into Left Brachial Vein, Percutaneous Approach (ICD-10-PCS; 2024-10-14)
DX: T81.43XA Infection following a procedure, organ and space surgical site, initial encounter (principal); F33.9 Major depressive disorder, recurrent, unspecified; R78.81 Bacteremia; I69.354 Hemiplegia and hemiparesis following cerebral infarction affecting left non-dominant side; D63.8 Anemia in other chronic diseases classified elsewhere; B95.62 Methicillin resistant Staphylococcus aureus infection as the cause of diseases classified elsewhere; E11.41 Type 2 diabetes mellitus with diabetic mononeuropathy; J44.9 Chronic obstructive pulmonary disease, unspecified; Z95.820 Peripheral vascular angioplasty status with implants and grafts; I11.9 Hypertensive heart disease without heart failure; K76.0 Fatty (change of) liver, not elsewhere classified; E66.9 Obesity, unspecified; T81.31XA Disruption of external operation (surgical) wound, not elsewhere classified, initial encounter; L02.214 Cutaneous abscess of groin; Z79.4 Long term (current) use of insulin; Z89.511 Acquired absence of right leg below knee; E11.51 Type 2 diabetes mellitus with diabetic peripheral angiopathy without gangrene; E11.649 Type 2 diabetes mellitus with hypoglycemia without coma; E11.65 Type 2 diabetes mellitus with hyperglycemia; I25.10 Atherosclerotic heart disease of native coronary artery without angina pectoris; E78.2 Mixed hyperlipidemia; E83.42 Hypomagnesemia; E87.6 Hypokalemia; G57.92 Unspecified mononeuropathy of left lower limb; I25.2 Old myocardial infarction; K21.9 Gastro-esophageal reflux disease without esophagitis; G89.4 Chronic pain syndrome; F41.1 Generalized anxiety disorder; I95.1 Orthostatic hypotension; M51.16 Intervertebral disc disorders with radiculopathy, lumbar region; Z95.828 Presence of other vascular implants and grafts; Z79.01 Long term (current) use of anticoagulants; Z79.82 Long term (current) use of aspirin; Z79.84 Long term (current) use of oral hypoglycemic drugs; Z79.899 Other long term (current) drug therapy; Z86.711 Personal history of pulmonary embolism; Z85.828 Personal history of other malignant neoplasm of skin; Z86.718 Personal history of other venous thrombosis and embolism; Z95.5 Presence of coronary angioplasty implant and graft; Z96.612 Presence of left artificial shoulder joint; Z98.1 Arthrodesis status; Z87.891 Personal history of nicotine dependence; Z88.1 Allergy status to other antibiotic agents
CPT/HCPCS: 36415; 36573; 73502; 80048; 80053; 83605; 83735; 84132; 85025; 85610; 85652; 86140; 86850; 86900; 86901; 87040; 87070; 87075; 87077; 87186; 87205; 87324; 87636; 93005; 96365; 96366; 96367; 96375; 96376; 99285

== ENCOUNTER 2025-01-21 17:59 | Observation (INO) | payer MEDICARE, OTHER ==
--- NOTE | 2025-01-21 18:41 | XR ---
EXAMINATION TYPE: XR chest 1V portable DATE OF EXAM: 01/21/2025 6:35 PM COMPARISON: Chest radiographs from 11/29/2023 TECHNIQUE: XR chest 1V portable Portable AP radiograph of the chest. CLINICAL INDICATION:Female, 64 years old with history of abdominal pain; FINDINGS: Lungs/Pleura: There is no evidence of pleural effusion, focal consolidation, or pneumothorax. Pulmonary vascularity: Unremarkable. Heart/mediastinum: Cardiomediastinal silhouette is unremarkable. Atherosclerotic calcifications are seen in the aorta. Musculoskeletal: No acute osseous pathology. Left shoulder arthroplasty changes. Cervical fusion hard carter. IMPRESSION: No acute cardiopulmonary disease/process. [facility], , 01/21/2025 6:38 PM
[2025-01-21] MEDS: PANTOPRAZOLE 40 MG/10 ML VIAL IVP STA (18:49)
[2025-01-21] MEDS: SODIUM CHLORIDE 0.9% 1,000 ML IV ONE (18:53)
[2025-01-21] MEDS: ONDANSETRON 4 MG/2 ML VIAL IVP STA (18:53)
[2025-01-21] MEDS: MORPHINE SULFATE 2 MG/ML SYRINGE IVP STA (18:57)
[2025-01-21 19:07] LABS: Basophils # (A) 0.05 10*3/uL (0.00-0.10); Basophils % (A) 0.5 %; Eosinophils # (A) 0.35 10*3/uL (0.04-0.35); Eosinophils % (A) 3.8 %; HCT 41.1 % (37.2-46.3); Lymphocytes # (A) 1.79 10*3/uL (0.90-5.00); Lymphocytes % (A) 19.4 %; MCH 28.6 pg (27.0-32.0); MCHC 31.6 g/dL (32.0-37.0); MCV 90.3 fL (80.0-97.0); Mean Platelet Volume 10.1 fL (9.5-12.2); Monocytes # (A) 0.54 10*3/uL (0.20-1.00); Monocytes % (A) 5.8 %; Neutrophils # (A) 6.47 10*3/uL (1.80-7.70); Neutrophils % (A) 70.1 %; Platelet Count 319 10*3/uL (140-440); RBC 4.55 10*6/uL (4.10-5.20); RDW 16.4 % (11.5-14.5); WBC 9.24 10*3/uL (4.50-10.00)
[2025-01-21 19:09] LABS: INR 1.1 (<1.2); Partial Thromboplastin Time 23.1 sec (22.0-30.0); Prothrombin Time 11.5 sec (10.0-12.5)
[2025-01-21 19:30] LABS: Appearance,Urine Turbid (Clear); Bilirubin,Urine Negative (Negative); Blood,Urine Moderate (Negative); Color,Urine Colorless; Glucose,Urine (UA) 4+ (Negative); Ketones,Urine Negative (Negative); Leukocyte Esterase,Urine Large (Negative); Nitrite,Urine Negative (Negative); Protein,Urine 1+ (Negative); Specific Gravity,Urine 1.011 (1.001-1.035); Urobilinogen,Urine <2.0 mg/dL (<2.0)
[2025-01-21 19:31] LABS: Mucus,Urine Rare /hpf; RBC,Urine 34 /hpf (0-5); Squamous Epithelial Cell,Urine 1 /hpf (0-4); WBC,Urine >182 /hpf (0-5)
[2025-01-21 19:52] LABS: ALT 9 U/L (4-34); AST 22 U/L (14-36); African American GFR (CKD) 57 (>60 ml/min/1.73 sqM); Albumin 2.8 g/dL (3.5-5.0); Alkaline Phosphatase 156 U/L (38-126); Amylase 49 U/L (30-110); Anion Gap 5 mmol/L; Blood Urea Nitrogen 16 mg/dL (7-17); Carbon Dioxide 30 mmol/L (22-30); Chloride 99 mmol/L (98-107); Glucose 163 mg/dL (74-99); Lipase 539 U/L (23-300); Non-African American GFR(CKD) 49 (>60 ml/min/1.73 sqM); Potassium 4.9 mmol/L (3.5-5.1); Sodium 134 mmol/L (137-145); Total Bilirubin 0.5 mg/dL (0.2-1.3); Total Protein 6.4 g/dL (6.3-8.2)
--- NOTE | 2025-01-21 20:18 | ED ---
General Adult HPI - General Chief complaint: Abdominal Pain Stated complaint: abd pain Time Seen by Provider: 01/21/25 18:20 Source: patient, EMS, RN notes reviewed, old records reviewed Mode of arrival: EMS Limitations: no limitations - History of Present Illness Initial comments: Patient is a 64-year-old female who presents emergency department complaining of abdominal pain. Has been ongoing for the last 3 to 4 days. Has a history of CAD with multiple cardiac stents, peripheral artery disease with right lower extremity amputation, hypertension, COPD, prior blood clots, bilateral thumb thromboendarterectomy with femoral-femoral bypass in September of this year complicated by postop infection who presents emergency department with diffuse abdominal pain. States it starts in her abdomen and radiates mildly upwards but mostly down throughout her entire rest of her abdomen. Denies any leg pain. Denies any significant nausea but does have some mild nausea with no emesis. Mild diarrhea. No blood in her stool. Surgical sites are healing well per patient. Denies any urinary complaints. Unknown what is causing the pain. Is been present for the last 3 to 4 days. Presents for further evaluation at this time. - Related Data Home Medications Medication Instructions Recorded Confirmed Ergocalciferol (Vitamin D2) 1,250 mcg PO GUERRERO@0800 04/01/23 10/05/24 [Drisdol (50,000 Iu)] Nitroglycerin Sl Tabs [Nitrostat] 0.4 mg SL Q5M PRN 04/01/23 10/05/24 Apixaban [Eliquis] 5 mg PO BID 05/20/23 10/05/24 DULoxetine HCL [Cymbalta] 60 mg PO QAM 07/04/23 10/05/24 INSULIN ASPART (NovoLOG) [NovoLOG See Protocol SQ ACHS 07/04/23 10/05/24 (formulary)] Metoprolol Tartrate [Lopressor] 25 mg PO BID 07/04/23 10/05/24 Magnesium Oxide [Mag-Ox] 500 mg PO DAILY 08/09/23 10/05/24 Melatonin 3 mg PO HS@2100 PRN 08/09/23 10/05/24 Spironolactone 25 mg PO DAILY 08/09/23 10/05/24 Atorvastatin Calcium [Lipitor] 80 mg PO DAILY 09/16/23 10/05/24 Gabapentin [Neurontin] 400 mg PO TID 10/22/23 10/05/24 Ipratropium-Albuterol Nebulize 3 ml INHALATION RT-Q6H PRN 10/22/23 10/05/24 [Duoneb 0.5 mg-3 mg/3 ml Soln] Dapagliflozin Propanediol [Farxiga] 10 mg PO DAILY 02/27/24 10/05/24 Insulin Glargine,Hum.rec.anlog 46 units SQ HS 02/27/24 10/05/24 [Lantus Solostar Pen] Pantoprazole [Protonix] 40 mg PO QAM 02/27/24 10/05/24 Aspirin EC [Ecotrin Low Dose] 81 mg PO DAILY 07/08/24 10/05/24 Cyclobenzaprine HCl 10 mg PO HS PRN 09/09/24 10/05/24 Pioglitazone [Actos] 30 mg PO DAILY 10/05/24 10/05/24 oxyCODONE-APAP 7.5-325MG [Percocet 1 tab PO Q6HR PRN 10/05/24 10/05/24 7.5-325 mg] Previous Rx's Medication Instructions Recorded DAPTOmycin [Cubicin] 500 mg IV DAILY #40 each 10/13/24 metroNIDAZOLE [Flagyl] 500 mg PO TID #90 tab 10/13/24 Ferrous Sulfate [Feosol] 325 mg PO DAILY #30 tab 10/14/24 INSULIN ASPART (NovoLOG) [NovoLOG 6 unit SQ TID@0800,1200,1700 #0 10/14/24 (formulary)] Allergies Allergy/AdvReac Type Severity Reaction Status Date / Time vancomycin Allergy Rash/Hives/and Verified 01/21/25 18:09 vomiting diarrhea/Swelling Review of Systems ROS Statement: Those systems with pertinent positive or pertinent negative responses have been documented in the HPI. Review of Systems: CONST: Denies fever EYES: Denies blurry vision ENT: Denies nasal congestion C/V: Denies Chest pain RESP: Denies shortness of breath GI: Endorses abdominal pain : Denies dysuria SKIN: Denies rash. MSK: Denies joint pain. NEURO: Denies headache ROS Other: All systems not noted in ROS Statement are negative. Past Medical History Past Medical History: Coronary Artery Disease (CAD), Cancer, CVA/TIA, Diabetes Mellitus, Deep Vein Thrombosis (DVT), GERD/Reflux, Memory Impairment, Osteoarthritis (OA), Pulmonary Embolus (PE), Vascular Disorder Additional Past Medical History / Comment(s): hospitalization end of Aug 2024 for abscess rt groin-now resolved-pt stated "Dr Hughes aware and followed up with Dr Tejeda aware & ok to proceed with surgery with Dr Hughes", Hx hospitalization Aug 2023- Diarrhea, cellulitis rt AKA (AKA 06-07-23)site and PICC line placement (Power PICC SOLO2 catheter ),hx SKIN CA to neck. 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 Azar H+P pt c/o dysphonia pt confirms. chronic diarrhea. hx of low BP issues,has minimum mobility left arm-elbow goes out Last Myocardial Infarction Date:: 2010 History of Any Multi-Drug Resistant Organisms: MRSA Date of last positivie culture/infection: 10/05/24 MDRO Source:: blood, lt hip Past Surgical History: Section, Cholecystectomy, Heart Catheterization, Heart Catheterization With Stent, Orthopedic Surgery, Tonsillectomy, Tubal Ligation Additional Past Surgical History / Comment(s): Right Below Knee Amputation 04/2023, 11 Stents in mid thigh left leg, fistula left thigh, full mouth teeth extraction, TRAPEASE VENA CAVA FILTER mid thigh left leg,rt carpel tunnel , he art stents x4 rca and lad, tumor removal from uterus. Genital warts removed, INGRID. Skin cancer removed from neck, rt great toe amputated, colonoscopy, rt rotator, left shoulder replacement, cervial fusion, rt calf debridement, rt calf skin graft (May 2023) Past Anesthesia/Blood Transfusion Reactions: No Reported Reaction Additional Past Anesthesia/Blood Transfusion Reaction / Comment(s): no complications with prior blood tranfusions Date of Last Stent Placement:: Mar 2023 Past Psychological History: Anxiety, Depression Smoking Status: Former smoker Past Alcohol Use History: None Reported Past Drug Use History: None Reported - Past Family History Mother Family Medical History: Cancer, Congestive Heart Failure (CHF), Diabetes Mellitus, Myocardial Infarction ([place]) Additional Family Medical History / Comment(s): UTERINE CANCER Father Family Medical History: Coronary Artery Disease (CAD), Myocardial Infarction ([place]) Additional Family Medical History / Comment(s): Father at age 70. Sister(s) Family Medical History: Myocardial Infarction ([place]) Additional Family Medical History / Comment(s): Patient has one sister with my ocardial infarction at age 55. Son(s) Family Medical History: Deep Vein Thrombosis (DVT), Pulmonary Embolus Additional Family Medical History / Comment(s): Patient has 2 sons and one has history of DVT and pulmonary embolism. General Exam - General Exam Comments Initial Comments: General: Appears in no acute distress. HEAD: Normal with no signs of head trauma. EYES: PERRLA, EOMI, conjunctiva normal, no discharge. ENT: Hearing grossly intact, normal oropharynx. RESPIRATORY: Clear breath sounds bilaterally. No wheezes, rales, or rhonchi. C/V: Regular rate and rhythm. S1 and S2 auscultated, no edema, peripheral pulses 2+ and intact throughout ABD: Abdomen soft, nondistended. Generalized tenderness to palpation throughout the abdomen. No guarding or rebound tenderness. No peritoneal signs. EXT: Right AKA SKIN: No rashes or lesions observed on exposed skin. NEURO: Alert and oriented x 4. Limitations: no limitations Course Vital Signs 01/21/25 01/21/25 01/21/25 18:00 18:45 22:08 Temperature 98.7 F Pulse Rate 71 68 71 Respiratory 20 18 17 Rate Blood Pressure 111/50 115/71 139/67 O2 Sat by Pulse 97 98 95 Oximetry Medical Decision Making - Medical Decision Making Was pt. sent in by a medical professional or institution (, PA, BRIDGE REPAIR [employer]W PERSON, urgent care, hospital, or assisted...) When possible be specific @ -No Did you speak to anyone other than the patient for history (EMS, parent, family, police, friend...)? What history was obtained from this source @ -No Did you review nursing and triage notes (agree or disagree)? Why? @ -I reviewed and agree with nursing and triage notes Were old charts reviewed (outside hosp., previous admission, EMS record, old EKG, old radiological studies, urgent care reports/EKG's, assisted records)? Report findings @ -Old charts reviewed including prior visit from October 2024 when she was discharged home on October 14, 2024. This included the progress of the postop infection. Differential Diagnosis (chest pain, altered mental status, abdominal pain women, abdominal pain men, vaginal bleeding, weakness, fever, dyspnea, syncope, h eadache, dizziness, GI bleed, back pain, seizure, CVA, palpatations, mental health, musculoskeletal)? @ -Differential Abdominal Pain Women: Appendicitis, Cholecystitis, diverticulosis, ischemic bowel, pancreatitis, hepatitis, UTI, gastroenteritis, AAA, incarcerated hernia, bowel obstruction, constipation, inflammatory bowel, hepatitis, peptic ulcer disease, splenic infarction, perforated viscus, vulvitis, ovarian torsion, PID, kidney stone, placenta abruption, this is not meant to be an all-inclusive list EKG interpreted by me (3pts min.). @ -As above X-rays interpreted by me (1pt min.). @ -Chest x-ray shows no obvious acute cardiopulmonary process. CT interpreted by me (1pt min.). @ -CT angiogram of the chest abdomen pelvis remarkable for findings consistent with cystitis as well as chronic findings of the vasculature. No acute findings of vasculature. U/S interpreted by me (1pt. min.). @ -None done What testing was considered but not performed or refused? (CT, X-rays, U/S, la bs)? Why? @ -None What meds were considered but not given or refused? Why? @ -None Did you discuss the management of the patient with other professionals (professionals i.e. , PA, [employer] REPAIR [employer]W PERSON, lab, RT, psych nurse, social work supervisor, neurology teacher, teacher, state wildlife officer, pillowcase cutter)? Give summary @ - spoke with Dr. Tejeda. Who accepted the admission. He recommended I consult Dr. Sheppard of infectious disease. Was smoking cessation discussed for >3mins.? @ -No Was critical care preformed (if so, how long)? @ -No Were there social determinants of health that impacted care today? How? (Homelessness, low income, unemployed, alcoholism, drug addiction, transportation, low edu. Level, literacy, decrease access to med. care, [facility], rehab)? @ -No Was there de-escalation of care discussed even if they declined (Discuss DNR or withdrawal of care, Hospice)? DNR status @ -No What co-morbidities impacted this encounter? (DM, HTN, Smoking, COPD, CAD, Cancer, CVA, ARF, Chemo, Hep., AIDS, mental health diagnosis, sleep apnea, morbid obesity)? @ -None Was patient admitted / discharged? Hospital course, mention meds given and route, prescriptions, significant lab abnormalities, going to OR and other [facility] info. @ -Patient presents to the ER complaining of 4 days of abdominal pain. It is diffuse. Will obtain abdominal laboratory studies, CT abdomen pelvis. Symptomatically treat with IV fluids, Zofran, morphine, Protonix. She was in agreement this plan. Laboratory studies returned remarkable for a UTI and patient was started on Rocephin. Remainder the labs including troponin undetectable. Lipase is mildly elevated to 539. CT imaging returned remarkable for cystitis. No other acute findings at this time. I reevaluated the patient. She is receiving multiple doses of pain meds. She will be admitted on IV antibiotics for intractable abdominal pain and UTI. She was in agreement this plan. I spoke with Dr. Tejeda. Who accepted the admission. He recommended I consult Dr. Sheppard of infectious disease. Urine culture sent. Undiagnosed new problem with uncertain prognosis? @ -No Drug Therapy requiring intensive monitoring for toxicity (Heparin, Nitro, Insulin, Cardizem)? @ -No Were any procedures done? @ -No Diagnosis/symptom? @ -Intractable abdominal pain, UTI Acute, or Chronic, or Acute on Chronic? @ -Acute Uncomplicated (without systemic symptoms) or Complicated (systemic symptoms)? @ -Complicated Side effects of treatment? @ -None Exacerbation, Progression, or Severe Exacerbation] @ -No Poses a threat to life or bodily function? @ -Yes - Lab Data Result diagrams: 01/21/25 18:45 01/21/25 18:45 Lab Results 01/21/25 01/21/25 01/21/25 Range/Units 18:45 18:45 18:45 WBC 9.24 (4.50-10.00) 10*3/uL RBC 4.55 (4.10-5.20) 10*6/uL Hgb 13.0 (12.0-15.0) g/dL Hct 41.1 (37.2-46.3) % MCV 90.3 (80.0-97.0) fL MCH 28.6 (27.0-32.0) pg MCHC 31.6 L (32.0-37.0) g/dL Plt Count 319 (140-440) 10*3/uL MPV 10.1 (9.5-12.2) fL Immature Gran % (Auto) 0.4 % Neutrophils % 70.1 % Lymphocytes % 19.4 % Monocytes % 5.8 % Eosinophils % 3.8 % Basophils % 0.5 % Immature Gran # 0.04 (0.00-0.04) 10*3/uL Neutrophils # 6.47 (1.80-7.70) 10*3/uL Lymphocytes # 1.79 (0.90-5.00) 10*3/uL Monocytes # 0.54 (0.20-1.00) 10*3/uL Eosinophils # 0.35 (0.04-0.35) 10*3/uL Basophils # 0.05 (0.00-0.10) 10*3/uL PT 11.5 (10.0-12.5) sec INR 1.1 (<1.2) APTT 23.1 (22.0-30.0) sec Sodium 134 L (137-145) mmol/L Potassium 4.9 (3.5-5.1) mmol/L Chloride 99 (98-107) mmol/L Carbon Dioxide 30 (22-30) mmol/L Anion Gap 5 mmol/L BUN 16 (7-17) mg/dL Creatinine 1.18 H (0.52-1.04) mg/dL Est GFR (CKD-EPI)AfAm 57 (>60 ml/min/1.73 sqM) Est GFR (CKD-EPI)NonAf 49 (>60 ml/min/1.73 sqM) Glucose 163 H (74-99) mg/dL Plasma Lactic Acid Mynor (0.7-2.0) mmol/L Calcium 10.0 (8.4-10.2) mg/dL Total Bilirubin 0.5 (0.2-1.3) mg/dL AST 22 (14-36) U/L ALT 9 (4-34) U/L Alkaline Phosphatase 156 H (38-126) U/L Troponin I (0.000-0.034) ng/mL Total Protein 6.4 (6.3-8.2) g/dL Albumin 2.8 L (3.5-5.0) g/dL Amylase 49 (30-110) U/L Lipase 539 H (23-300) U/L Urine Color Urine Appearance (Clear) Urine pH (5.0-8.0) Ur Specific [place] (1.001-1.035) Urine Protein (Negative) Urine Glucose (UA) (Negative) Urine Ketones (Negative) Urine Blood (Negative) Urine Nitrite (Negative) Urine Bilirubin (Negative) Urine Urobilinogen (<2.0) mg/dL Ur Leukocyte Esterase (Negative) Urine RBC (0-5) /hpf Urine WBC (0-5) /hpf Urine WBC Clumps (None) /hpf Ur Squamous Epith Cells (0-4) /hpf Urine Mucus (None) /hpf 01/21/25 01/21/25 01/21/25 Range/Units 18:45 18:45 19:05 WBC (4.50-10.00) 10*3/uL RBC (4.10-5.20) 10*6/uL Hgb (12.0-15.0) g/dL Hct (37.2-46.3) % MCV (80.0-97.0) fL MCH (27.0-32.0) pg MCHC (32.0-37.0) g/dL Plt Count (140-440) 10*3/uL MPV (9.5-12.2) fL Immature Gran % (Auto) % Neutrophils % % Lymphocytes % % Monocytes % % Eosinophils % % Basophils % % Immature Gran # (0.00-0.04) 10*3/uL Neutrophils # (1.80-7.70) 10*3/uL Lymphocytes # (0.90-5.00) 10*3/uL Monocytes # (0.20-1.00) 10*3/uL Eosinophils # (0.04-0.35) 10*3/uL Basophils # (0.00-0.10) 10*3/uL PT (10.0-12.5) sec INR (<1.2) APTT (22.0-30.0) sec Sodium (137-145) mmol/L Potassium (3.5-5.1) mmol/L Chloride (98-107) mmol/L Carbon Dioxide (22-30) mmol/L Anion Gap mmol/L BUN (7-17) mg/dL Creatinine (0.52-1.04) mg/dL Est GFR (CKD-EPI)AfAm (>60 ml/min/1.73 sqM) Est GFR (CKD-EPI)NonAf (>60 ml/min/1.73 sqM) Glucose (74-99) mg/dL Plasma Lactic Acid Mynor 1.3 (0.7-2.0) mmol/L Calcium (8.4-10.2) mg/dL Total Bilirubin (0.2-1.3) mg/dL AST (14-36) U/L ALT (4-34) U/L Alkaline Phosphatase (38-126) U/L Troponin I <0.012 (0.000-0.034) ng/mL Total Protein (6.3-8.2) g/dL Albumin (3.5-5.0) g/dL Amylase (30-110) U/L Lipase (23-300) U/L Urine Color Colorless Urine Appearance Turbid H (Clear) Urine pH 6.0 (5.0-8.0) Ur Specific [place] 1.011 (1.001-1.035) Urine Protein 1+ H (Negative) Urine Glucose (UA) 4+ H (Negative) Urine Ketones Negative (Negative) Urine Blood Moderate H (Negative) Urine Nitrite Negative (Negative) Urine Bilirubin Negative (Negative) Urine Urobilinogen <2.0 (<2.0) mg/dL Ur Leukocyte Esterase Large H (Negative) Urine RBC 34 H (0-5) /hpf Urine WBC >182 H (0-5) /hpf Urine WBC Clumps Many H (None) /hpf Ur Squamous Epith Cells 1 (0-4) /hpf Urine Mucus Rare H (None) /hpf - EKG Data -: EKG Interpreted by Me EKG Comments: 12-lead Electrocardiogram Interpretation Note EKG was reviewed and interpreted by myself. 12-lead ECG performed at 1826 is interpreted by me as revealing normal sinus rhythm at a rate of 70 beats per minute. Ballinger is normal. NH interval is 172 ms, QRS duration is 95 ms, QTc is 394 ms.. There were no ST or T wave abnormalities to suggest myocardial ischemia or injury. R wave progression across the precordium was satisfactory. By my interpretation this EKG is non-diagnostic for acute ischemia. Disposition Clinical Impression: Intractable abdominal pain, UTI (urinary tract infection) Disposition: ADMITTED IP TO THIS HOSP Condition: Stable Time of Disposition: 22:34
--- NOTE | 2025-01-21 21:08 | CT ---
EXAMINATION TYPE: CT angio thor/abd pel aorta CT DLP: 2219 mGycm, Automated exposure control for dose reduction was used. DATE OF EXAM: 01/21/2025 8:45 PM COMPARISON: Chest radiograph 01/21/2025, CT angiography abdominal with runoff 9 03/12/2024. CLINICAL INDICATION:Female, 64 years old with history of mostly abd pain, some chest pain. hx of fem bipass; PHH, abdominal pain x 3-4 days TECHNIQUE: Dissection protocol: Multiple axial CT images of the chest, abdomen, and pelvis were obtai bob prior and to the administration of IV contrast. 3-D reformats and maximum intensity projection fo rmat were performed on a separate workstation. Then the abdomen was scanned after administration of 1 00 cc of Isovue 370 IV contrast. FINDINGS: ARTERIAL VASCULATURE: Normal in course and caliber of the aorta. There is no evidence of aortic disse ction, aneurysm or acute aortic injury. Mild calcified plaque involving the thoracic aorta and its br anches. Great arch vessels patent and normal in course and caliber. Mild atherosclerotic plaque invol ving the abdominal aorta and its branches. The celiac access and SMA are patent with mild stenosis ag ain. The PARUL is patent without significant stenosis. The bilateral single renal arteries are patent w ith moderate stenosis at the origin of the right renal artery. No significant stenosis involving the origin of the left renal artery. Moderate calcified plaque involving the bilateral common iliac arter ies which are patent without significant stenosis. The right internal and external iliac arteries are patent. There is again short segment stenosis at the origin of the right superficial femoral artery. Focal outpouching redemonstrated at the origin of the right superficial femoral artery. Small calibe r left external iliac artery with mild to moderate atherosclerotic plaque proximally. There is occlus ion of the common femoral artery distally with reconstitution at the bifurcation again. The visualize d left the deep femoral artery is patent. The visualized left superficial femoral artery does not dem onstrate enhancement on today's exam. PULMONARY ARTERIAL VASCULATURE: Main pulmonary artery is dilated measuring up to 3.6 cm. This suggest s pulmonary arterial hypertension. No evidence of filling defect to suggest pulmonary embolus. VENOUS SYSTEM: There are 2 IVC filters identified when more distally near the liver and one more prox imally at the iliac venous bifurcation. Bilateral common iliac venous stents. The left extends into t he left inguinal region with some internal calcifications. The visualized proximal IVC and right ron c vein are patent there is again occlusion at the origin of the left iliac venous stent is sided dyst rophic calcifications. Lungs/pleura: No pleural effusion, pneumothorax, or focal consolidation. Mild bilateral lower lobe robbins bsegmental atelectasis. No suspicious pulmonary nodule or mass. Heart: Size within normal limits.Moderate to severe atherosclerosis of the coronary arterial vasculat ure. Mediastinum: No gross evidence of adenopathy. Lower Neck: Subcentimeter right thyroid lobe hypodense nodule. Abdomen: Liver: Unremarkable. Gallbladder and Bile ducts: Gallbladder is surgically absent. No biliary ductal dilatation.. Pancreas: Unremarkable. Spleen: Unremarkable. Adrenal glands: Degenerative gland is unremarkable. Stable right adrenal gland 1.8 cm nodule consiste nt with a lipid rich adenoma. Kidneys and Ureters: No hydronephrosis or nephrolithiasis. The kidneys enhance symmetrically. Bilater al simple perirenal cyst. No follow-up recommended.. Stomach and Bowel: No focal bowel wall thickening or surrounding inflammatory changes. The appendix i s within normal limits. No evidence of bowel obstruction. Peritoneum: No evidence of pneumoperitoneum, free fluid, or adenopathy. Bladder: Circumferential wall thickening. Reproductive: Retroverted uterus. Abdominal wall/soft tissues: Surgical changes within the bilateral inguinal regions. Venous collatera ls identified within the anterior pelvic wall soft tissues.. Musculoskeletal: No acute osseous abnormality. Redemonstration of anterior wedge compression deformit y with approximately 50% height loss anteriorly involving the T11 vertebral body. Mild multilevel deg enerative disc disease. Left shoulder arthroplasty changes. Partial visualization of anterior cervica l fusion hardware. IMPRESSION: 1. No evidence for aortic dissection. 2. There is again a left common femoral artery occlusion distally with reconstitution of the proximal left deep femoral artery. The proximal left superficial femoral artery appears to be occluded. 3. IVC filters with bilateral iliac venous stents. There is occlusion of the left iliac venous stent with calcifications within the proximal portion again. 4. Circumferential wall thickening of the urinary bladder. Correlate with urinalysis for cystitis. [facility], , 01/21/2025 9:05 PM
[2025-01-21] MEDS: SODIUM CHLORIDE 0.9% 1,000 ML IV STA (22:00)
[2025-01-21] MEDS: MORPHINE SULFATE 4 MG/ML SYRINGE IVP STA (22:04)
[2025-01-21] MEDS ORDERED: ONDANSETRON 4 MG/2 ML VIAL IVP PRN (22:34)
[2025-01-21] MEDS ORDERED: ACETAMINOPHEN TAB 325 MG TAB PO PRN (22:34)
[2025-01-21] MEDS ORDERED: NALOXONE 0.4 MG/ML 1 ML VIAL IV PRN (22:34)
[2025-01-22] MEDS: MORPHINE SULFATE 4 MG/ML SYRINGE IV PRN (02:53)
[2025-01-22 05:01] LABS: ALT 9 U/L (4-34); AST 25 U/L (14-36); African American GFR (CKD) 60 (>60 ml/min/1.73 sqM); Alkaline Phosphatase 175 U/L (38-126); Anion Gap 9 mmol/L; Blood Urea Nitrogen 15 mg/dL (7-17); Calcium 9.8 mg/dL (8.4-10.2); Carbon Dioxide 26 mmol/L (22-30); Chloride 102 mmol/L (98-107); Glucose 164 mg/dL (74-99); Non-African American GFR(CKD) 52 (>60 ml/min/1.73 sqM); Potassium 4.7 mmol/L (3.5-5.1); Sodium 137 mmol/L (137-145); Total Bilirubin 0.5 mg/dL (0.2-1.3); Total Protein 6.9 g/dL (6.3-8.2)
[2025-01-22 05:40] LABS: Basophils # (A) 0.04 10*3/uL (0.00-0.10); Basophils % (A) 0.4 %; Eosinophils # (A) 0.45 10*3/uL (0.04-0.35); Eosinophils % (A) 4.8 %; HCT 44.8 % (37.2-46.3); HGB 13.7 g/dL (12.0-15.0); Lymphocytes # (A) 2.06 10*3/uL (0.90-5.00); Lymphocytes % (A) 22.1 %; MCH 28.4 pg (27.0-32.0); MCHC 30.6 g/dL (32.0-37.0); MCV 92.8 fL (80.0-97.0); Mean Platelet Volume 11.4 fL (9.5-12.2); Monocytes # (A) 0.59 10*3/uL (0.20-1.00); Monocytes % (A) 6.3 %; Neutrophils # (A) 6.11 10*3/uL (1.80-7.70); Neutrophils % (A) 65.8 %; Platelet Count 246 10*3/uL (140-440); RBC 4.83 10*6/uL (4.10-5.20); RDW 16.8 % (11.5-14.5); WBC 9.31 10*3/uL (4.50-10.00)
[2025-01-22 06:18] LABS: Glucose,Whole Blood 191 mg/dL (70-110)
[2025-01-22] MEDS ORDERED: CYCLOBENZAPRINE 5 MG TAB PO PRN (10:06)
[2025-01-22] MEDS ORDERED: DEXTROSE 50% SYRINGE 50 ML IVP PRN ×2 (10:24)
[2025-01-22] MEDS: DULoxetine HCL 60 MG CAPSULE.DR PO SCH (10:38)
[2025-01-22] MEDS: APIXABAN 5 MG TAB PO SCH (10:38)
[2025-01-22] MEDS: METOPROLOL TARTRATE 25 MG TAB PO SCH (10:38)
[2025-01-22] MEDS: GABAPENTIN 400 MG CAP PO SCH (10:38)
[2025-01-22] MEDS: DAPAGLIFLOZIN PROPANEDIOL 10 MG TABLET PO SCH (10:38)
[2025-01-22] MEDS: LINAGLIPTIN 5 MG TABLET PO SCH (10:38)
[2025-01-22] MEDS: POTASSIUM CHLORIDE ER 20 MEQ TAB.ER PO SCH (10:38)
[2025-01-22] MEDS: SPIRONOLACTONE 25 MG TAB PO SCH (10:38)
[2025-01-22] MEDS: HYDROcodone/APAP 7.5-325MG 1 EACH TAB PO PRN (10:39)
[2025-01-22 11:06] LABS: Glucose,Whole Blood 176 mg/dL (70-110)
[2025-01-22] MEDS: INSULIN LISPRO (HumaLOG) 100 UNIT/ML 10 mL VL SQ SCH ×2 (12:48→12:52)
[2025-01-22] MEDS: PIOGLITAZONE 30 MG TAB PO SCH (12:48)
--- NOTE | 2025-01-22 15:54 | P.HPIM ---
History of Present Illness H&P Date: 01/22/25 Chief Complaint: Acute urinary tract infection with SIRS. HISTORY OF PRESENT ILLNESS This is a 64-year-old female patient of mine with history of CAD with multiple cardiac stents in mid RCA, mid LAD, obtuse marginal branch and followed by Dr. Bill closely, peripheral artery disease with previous stenting done as well has amputation of the right great toe secondary to osteomyelitis, CVA with no residual deficits, hypertension, COPD, diabetes mellitus type 2, previous multiple DVT and PE requiring chronic anticoagulation on eliquis, history of GI bleed secondary to antral gastritis, esophagitis, vitamin D deficiency, history of left humerus fracture, history of PAD post right AKA and CAD post PCI of the RCA with intermediate disease of the LAD, patient underwent bilateral femoral thromboendarterectomy with femorofemoral bypass that was done successfully by Dr. Pardo on 09/14/2024 and the patient was discharged home was doing fine, she ended up having diarrheal illness and developed to have a significant drainage from the left groin surgical site, she ended up coming to the ER at [facility] back on 10/05/2024 and she underwent incision and drainage with washout of the left groin with wound VAC placement, and from there the patient was treated for MRSA bacteremia at the same time, and follow-up with vascular surgery eventually she ended up going for a more surgical intervention, she was admitted to [facility] at that time, she had no surgical intervention of the right groin left groin, and eventually went to [facility], and she stated that her for about 2 months, she has been chronically on oral antibiotic for infection suppression, and she ended up having plastic surgery by Dr. Ayala as well for both groin area, patient presented to the emergency department at [facility] yesterday because of lower abdominal pain associated with increased pressure and had the CT angiography of the abdomen and pelvis that showed no evidence of dissection and did show the prior venous stenting and prior surgical intervention with the graft that she had in the past, it also showed thickened bladder suggestive of possible cystitis her urinalysis was abnormal that was sent for culture, infectious consultation was obtained, patient was admitted to the hospital for evaluation and treatment for possible UTI with source. REVIEW OF SYSTEMS Constitutional: No fever, No chills, no night sweats. Reports no weight loss. Reports weakness, Reports fatigue no lethargy. No daytime sleepiness. HEENT: No headache. No dizziness. No nasal drainage or congestion. No epistaxis. No sore throat. Lungs: No shortness of breath, no cough, no sputum production. No wheezing. Cardiovascular: No chest pain, no lower extremity edema. No palpitations. No paroxysmal nocturnal dyspnea. No orthopnea. No lightheadedness or dizziness. No syncopal episodes. Abdominal: Reports abdominal pain. Reports nausea, no vomiting. no diarrhea. No constipation. No bloody or tarry stools. good appetite. Genitourinary: No dysuria, increased frequency, urgency. No urinary retention. Musculoskeletal: No myalgias. positive for muscle weakness, reports balance issues. Integumentary: Right AKA , left lower extremity is intact, pulses by Doppler, bilateral groin area with dressing and bilateral wounds that appear clean. Neurologic: No aphasia. No facial droop. No change in mentation. No head injury. No headache. No paralysis. positive for paresthesia. Psychiatric: Reports depression. Reports anxiety. No mood swings. Endocrine: abnormal blood sugars. positive for weight change. No excessive sweating or thirst. No cold intolerance. MEDICAL HISTORY Coronary artery disease with multiple cardiac stents in the RCA, mid LAD, obtuse marginal branch Peripheral artery disease with previous stenting Right great toe osteomyelitis status post amputation CVA with no residual deficits Hypertension Hyperlipidemia COPD Diabetes mellitus type 2 Multiple DVT and PE on chronic anticoagulation History of GI bleed secondary to antral gastritis and esophagitis Vitamin D deficiency Orthostatic hypotension SURGICAL HISTORY Cholecystectomy Tonsillectomy Tubal ligation 11 stents in the left leg Full teeth extraction Trapeze vena cava filter Carpal tunnel release Coronary artery stents 4 to the RCA, LAD, obtuse marginal Tumor removed from the uterus will INGRID Skin cancer removal from the neck Right great toe amputation Right AKA Colonoscopy and EGD I&D right groin abscess Anterior approach cervical disc fusion. Bilateral femoral thromboendarterectomy and femorofemoral bypass to left lower extremity 09/14/2024 Left groin incision and drainage with a washout 10/05/2024 Bilateral groin flap surgery with vascular surgery currently has an open wound on both sides. SOCIAL HISTORY Patient is a smoker of about half a pack per day since 1993 and quit prior to her cervical surgery. No alcohol use, illicit drug use. Patient lives at home with her . FAMILY HISTORY Mother has history of uterine cancer, diabetes, myocardial infarction, heart failure. Father at age 70 from myocardial infarction. Patient has one sister and she had a myocardial infarction at age 55. Patient has 2 sons and one has history of DVT and pulmonary embolism. PHYSICAL EXAMINATION Gen: This is a 64-year-old female. She is resting in bed i no acute distress HEENT: Head is atraumatic, normocephalic. Pupils equal, round. Sclerae is anicteric. Mucous members of the mouth are somewhat dry. NECK: Supple. No JVD. No lymphadenopathy. No thyromegaly. LUNGS: Clear to auscultation. No wheezes or rhonchi. No intercostal retractions. 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 ABDOMEN: Soft, minimal tenderness to the lower abdomen non distended and no re bound or guarding positive bowel sounds EXTREMITIES: Right above-knee amputation , left lower extremity is intact, left big toe minimal abrasions. Bilateral wounds to both groins that appears to have clean base with no drainage. NEUROLOGICAL: Patient is awake, alert and oriented x3. Cranial nerves 2 through 12 are grossly intact muscle power were 4 out of 5 in upper extremity is, and 3 out of 5 in the left lower extremity. She does have a right above-knee amputation. ASSESSMENT AND PLAN 1. urinary tract infection with SIRS. Continue patient on ceftriaxone 2 g p .o. every 24 hours, check urine culture, follow-up with the patient very closely, infectious's consultation appreciated. 2. Status post incision and drainage of left groin infected surgical wound fo llowed by multiple surgical intervention with plastic surgery with resultant bilateral open wounds to both groin that appears to be clean at this point in time. Will continue with saline gauze and cover with ABD pads keep the area clean and dry. 3. Coronary artery disease with recent stent of the RCA due to recent in-stent restenosis. Patient has had previous multiple cardiac stents to the RCA and mid LAD, obtuse marginal branch. Continue patient on aspirin 81 mg daily, Lopressor 25 mg twice daily, Atorvastatin 80 mg po daily . 4. Diabetes mellitus type 2 uncontrolled with hypoglycemia , we will continue Lantus 40 units units at bedtime, along with a sliding scale insulin, continue with Humalog 12 units before each meal along with pioglitazone 30 mg once every day, continue Farxiga 10 mg once every day we will continue with the linagliptin 5 mg once every day.. 5. Mixed hyperlipidemia. Continue patient on atorvastatin 80 mg once every day, monitor lipid panel, keep LDL 55-70. 6. Chronic DVT and PEs. Continue patient on eliquis 5 mg twice daily. 7. Hypertension and hypertensive cardiovascular disease. Continue metoprolol 25 mg orally twice every day. Monitor the patient blood pressure very closely. 8. Gastroesophageal reflux disease and GI prophylaxis. Continue Pantoprazole 40 mg daily 9. Diabetic neuropathy. we will continue wit Gabapentin 400 mg po tid. 10. Generalized anxiety disorder, recurrent depression. Continue Cymbalta 60 mg po daily. 11. DVT prophylaxis. Continue Eliquis 5 mg po bid 12. GI prophylaxis. Continue patient on pantoprazole 40 mg once every day 13. Admit to inpatient. Estimated length of stay 2 midnights. 14. Full code. Past Medical History Past Medical History: Coronary Artery Disease (CAD), Cancer, CVA/TIA, Diabetes Mellitus, Deep Vein Thrombosis (DVT), GERD/Reflux, Memory Impairment, Osteoarthritis (OA), Pulmonary Embolus (PE), Vascular Disorder Additional Past Medical History / Comment(s): hospitalization end of Aug 2024 for abscess rt groin-now resolved-pt stated "Dr Hughes aware and followed up with Dr Tejeda aware & ok to proceed with surgery with Dr Hughes", Hx hospitalization Aug 2023- Diarrhea, cellulitis rt AKA (AKA 06-07-23)site and PICC line placement (Power PICC SOLO2 catheter ),hx SKIN CA to neck. 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, NEUROPATHY lt leg and foot, uses prosthesis and able to stand and walk with walker.Mutiple DVT-lt leg, stomach and lungs,mesentaric thrombosis x2 & PE, PAD, chronic pain syndrome, ddd lumbar region w/radiculopathy, HISTORY OF FALL 01/07/20 , pancreatitis, fatty liver, , nothing open, Pt states she's "forgetful", per Dr. Azar H+P pt c/o dysphonia pt confirms. chronic diarrhea. hx of low BP issues,has minimum mobility left arm-elbow goes out Last Myocardial Infarction Date:: 2010 History of Any Multi-Drug Resistant Organisms: MRSA Date of last positivie culture/infection: 10/05/24 MDRO Source:: blood, lt hip Past Surgical History: Section, Cholecystectomy, Heart Catheterization, Heart Catheterization With Stent, Orthopedic Surgery, Tonsillectomy, Tubal Ligation Additional Past Surgical History / Comment(s): Right Below Knee Amputation 04/2023, 11 Stents in mid thigh left leg, fistula left thigh, full mouth teeth extraction, TRAPEASE VENA CAVA FILTER mid thigh left leg,rt carpel tunnel , heart stents x4 rca and lad, tumor removal from uterus. Genital warts removed, INGRID. Skin cancer removed from neck, rt great toe amputated, colonoscopy, rt rotator, left shoulder replacement, cervial fusion, rt calf debridement, rt calf skin graft (May 2023) Past Anesthesia/Blood Transfusion Reactions: No Reported Reaction Additional Past Anesthesia/Blood Transfusion Reaction / Comment(s): no complications with prior blood tranfusions Date of Last Stent Placement:: Mar 2023 Past Psychological History: Anxiety, Depression Additional Psychological History / Comment(s): Depression r/t health issues. Smoking Status: Former smoker Past Alcohol Use History: None Reported Additional Past Alcohol Use History / Comment(s): STARTED SMOKING IN 1988 SMOKES 1/2 PPD. quit Aug 2023 Past Drug Use History: None Reported - Past Family History Mother Family Medical History: Cancer, Congestive Heart Failure (CHF), Diabetes Mellitus, Myocardial Infarction (PA) Additional Family Medical History / Comment(s): UTERINE CANCER Father Family Medical History: Coronary Artery Disease (CAD), Myocardial Infarction (PA) Additional Family Medical History / Comment(s): Father at age 70. Sister(s) Family Medical History: Myocardial Infarction (PA) Additional Family Medical History / Comment(s): Patient has one sister with myocardial infarction at age 55. Son(s) Family Medical History: Deep Vein Thrombosis (DVT), Pulmonary Embolus Additional Family Medical History / Comment(s): Patient has 2 sons and one has history of DVT and pulmonary embolism. Medications and Allergies Home Medications Medication Instructions Recorded Confirmed Type Ergocalciferol (Vitamin D2) 1,250 mcg PO GUERRERO 04/01/23 01/22/25 History [Drisdol (50,000 Iu)] Apixaban [Eliquis] 5 mg PO BID 05/20/23 01/22/25 History DULoxetine HCL [Cymbalta] 60 mg PO DAILY 07/04/23 01/22/25 History INSULIN ASPART (NovoLOG) [NovoLOG See Protocol SQ AC-TID 07/04/23 01/22/25 History (formulary)] Metoprolol Tartrate [Lopressor] 25 mg PO BID 07/04/23 01/22/25 History Spironolactone 25 mg PO DAILY 08/09/23 01/22/25 History Atorvastatin Calcium [Lipitor] 80 mg PO DAILY 09/16/23 01/22/25 History Gabapentin [Neurontin] 400 mg PO BID 10/22/23 01/22/25 History Dapagliflozin Propanediol [Farxiga] 10 mg PO DAILY 02/27/24 01/22/25 History Insulin Glargine,Hum.rec.anlog 40 units SQ HS 02/27/24 01/22/25 History [Lantus Solostar Pen] Pantoprazole [Protonix] 40 mg PO DAILY 02/27/24 01/22/25 History Pioglitazone [Actos] 30 mg PO DAILY 10/05/24 01/22/25 History Cyclobenzaprine [Flexeril] 5 mg PO HS PRN 01/22/25 01/22/25 History Doxycycline Hyclate 100 mg PO BID 01/22/25 01/22/25 History Ferrous Sulfate [Feosol] 325 mg PO BID 01/22/25 01/22/25 History HYDROcodone/APAP 7.5-325MG [[place] 1 tab PO Q8H PRN 01/22/25 01/22/25 History 7.5-325] INSULIN ASPART (NovoLOG) [NovoLOG 12 unit SQ AC-TID 01/22/25 01/22/25 History (formulary)] Magnesium Oxide [Magnesium] 500 mg PO DAILY 01/22/25 01/22/25 History Melatonin 3 mg PO HS PRN 01/22/25 01/22/25 History Potassium Chloride ER [K-Dur 20] 20 meq PO DAILY 01/22/25 01/22/25 History sitaGLIPtin [Januvia] 100 mg PO DAILY 01/22/25 01/22/25 History Allergies Allergy/AdvReac Type Severity Reaction Status Date / Time vancomycin Allergy Rash/Hives/and Verified 01/22/25 08:09 vomiting diarrhea/Swelling Physical Exam Vitals: Vital Signs Temp Pulse Pulse Resp BP BP Pulse Ox 01/22/25 13:17 97.9 F 60 16 121/74 93 L 01/22/25 07:00 97.9 F 78 15 116/73 96 01/22/25 02:37 97.8 F 71 18 113/70 98 01/22/25 02:12 70 17 129/71 92 L 01/22/25 02:00 71 18 01/21/25 23:37 71 18 117/65 96 01/21/25 22:08 71 17 139/67 95 01/21/25 18:45 68 18 115/71 98 01/21/25 18:00 98.7 F 71 20 111/50 97 Intake and Output 01/22/25 01/22/25 01/22/25 06:59 14:59 22:59 Intake Total 120 Output Total 350 Balance -230 Intake: Oral 120 Output: Urine 350 Other: Voiding Method External Catheter Weight 80.739 kg Results CBC & Chem 7: 01/22/25 03:39 01/22/25 03:39 Labs: Abnormal Lab Results - Last 24 Hours (Table) 01/21/25 01/21/25 01/21/25 Range/Units 18:45 18:45 19:05 MCHC 31.6 L (32.0-37.0) g/dL Immature Gran # (0.00-0.04) 10*3/uL Eosinophils # (0.04-0.35) 10*3/uL Sodium 134 L (137-145) mmol/L Creatinine 1.18 H (0.52-1.04) mg/dL Glucose 163 H (74-99) mg/dL POC Glucose (mg/dL) (70-110) mg/dL Alkaline Phosphatase 156 H (38-126) U/L Albumin 2.8 L (3.5-5.0) g/dL Lipase 539 H (23-300) U/L Urine Appearance Turbid H (Clear) Urine Protein 1+ H (Negative) Urine Glucose (UA) 4+ H (Negative) Urine Blood Moderate H (Negative) Ur Leukocyte Esterase Large H (Negative) Urine RBC 34 H (0-5) /hpf Urine WBC >182 H (0-5) /hpf Urine WBC Clumps Many H (None) /hpf Urine Mucus Rare H (None) /hpf 01/22/25 01/22/25 01/22/25 Range/Units 03:39 03:39 06:16 MCHC 30.6 L (32.0-37.0) g/dL Immature Gran # 0.06 H (0.00-0.04) 10*3/uL Eosinophils # 0.45 H (0.04-0.35) 10*3/uL Sodium (137-145) mmol/L Creatinine 1.12 H (0.52-1.04) mg/dL Glucose 164 H (74-99) mg/dL POC Glucose (mg/dL) 191 H (70-110) mg/dL Alkaline Phosphatase 175 H (38-126) U/L Albumin 3.0 L (3.5-5.0) g/dL Lipase (23-300) U/L Urine Appearance (Clear) Urine Protein (Negative) Urine Glucose (UA) (Negative) Urine Blood (Negative) Ur Leukocyte Esterase (Negative) Urine RBC (0-5) /hpf Urine WBC (0-5) /hpf Urine WBC Clumps (None) /hpf Urine Mucus (None) /hpf 01/22/25 Range/Units 11:04 MCHC (32.0-37.0) g/dL Immature Gran # (0.00-0.04) 10*3/uL Eosinophils # (0.04-0.35) 10*3/uL Sodium (137-145) mmol/L Creatinine (0.52-1.04) mg/dL Glucose (74-99) mg/dL POC Glucose (mg/dL) 176 H (70-110) mg/dL Alkaline Phosphatase (38-126) U/L Albumin (3.5-5.0) g/dL Lipase (23-300) U/L Urine Appearance (Clear) Urine Protein (Negative) Urine Glucose (UA) (Negative) Urine Blood (Negative) Ur Leukocyte Esterase (Negative) Urine RBC (0-5) /hpf Urine WBC (0-5) /hpf Urine WBC Clumps (None) /hpf Urine Mucus (None) /hpf Thrombosis Risk Factor Assmnt - Choose All That Apply Any of the Below Risk Factors Present?: No
[2025-01-22 16:27] LABS: Glucose,Whole Blood 288 mg/dL (70-110)
[2025-01-22 19:49] LABS: Glucose,Whole Blood 219 mg/dL (70-110)
[2025-01-22] MEDS: FERROUS SULFATE 325 MG TAB PO SCH (20:16)
[2025-01-22] MEDS: INSULIN GLARGINE (LANTUS) 100 UNIT/ML SYR SQ SCH (20:17)
--- NOTE | 2025-01-22 22:43 | P.CONS ---
History of Present Illness - Reason for Consult Consult date: 01/15/25 UTI Requesting physician: Dominik Tavera - Chief Complaint Abdominal pain x 3 days - History of Present Illness Patient is a 64-year-old female with a past medical history significant for Coronary Artery Disease (CAD), Cancer, CVA/TIA, Diabetes Mellitus, Deep Vein Thrombosis (DVT), GERD/Reflux, Memory Impairment, Osteoarthritis (OA), Pulmonary Embolus (PE), Vascular Disorder recently did have a vascular graft infection with MRSA bacteremia for which the patient has completed her antibiotic therapy and infected graft has been removed patient still have nonhealing wound to bilateral groin area but they are healing patient presented to the hospital complaining of abdominal pain that apparently has been going on for the last 3 to 4 days patient described the pain mostly dull aching diffuse and moderate intensity patient has some nausea but no vomiting mild diarrhea denies any blood in the stools on presentation to the hospital patient was afebrile no fever have been called subsequently patient was not tachycardic hypotensive or hypoxic no need for supplemental oxygen patient did have a white count of 9.31 creatinine is 1.12 she did have a positive UA with large leukocyte esterase more than 1-2 WBC cultures currently pending patient did have a chest x-ray no acute cardiopulmonary disease process thoracic aorta CT low-dose for aortic dissection no focal bowel wall thickening or surrounding extremity changes no evidence for bowel obstruction no pneumoperitoneum slight compression of bladder wall thickening patient was started on ceftriaxone infectious disease was consulted for further management of antibiotic therapy Review of Systems Positive point and negatives has been mentioned in the HPI, complete review of systems was performed and all other systems are negative Past Medical History Past Medical History: Coronary Artery Disease (CAD), Cancer, CVA/TIA, Diabetes Mellitus, Deep Vein Thrombosis (DVT), GERD/Reflux, Memory Impairment, Osteoarthritis (OA), Pulmonary Embolus (PE), Vascular Disorder Additional Past Medical History / Comment(s): hospitalization end of Aug 2024 for abscess rt groin-now resolved-pt stated "Dr Hughes aware and followed up with Dr Tejeda aware & ok to proceed with surgery with Dr Hughes", Hx hospitalization Aug 2023- Diarrhea, cellulitis rt AKA (AKA 06-07-23)site and PICC line placement (Power PICC SOLO2 catheter ),hx SKIN CA to neck. 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, NEUROPATHY lt leg and foot, uses prosthesis and able to stand and walk with walker.Mutiple DVT-lt leg, stomach and lungs,mesentaric thrombosis x2 & PE, PAD, chronic pain syndrome, ddd lumbar region w/radiculopathy, HISTORY OF FALL 01/07/20 , pancreatitis, fatty liver, , nothing open, Pt states she's "forgetful", per Dr. Azar H+P pt c/o dysphonia pt confirms. chronic diarrhea. hx of low BP issues,has minimum mobility left arm-elbow goes out Last Myocardial Infarction Date:: 2010 History of Any Multi-Drug Resistant Organisms: MRSA Year Discovered:: 10/05/24 MDRO Source:: blood, lt hip Past Surgical History: Section, Cholecystectomy, Heart Catheterization, Heart Catheterization With Stent, Orthopedic Surgery, Tonsillectomy, Tubal Ligation Additional Past Surgical History / Comment(s): Right Below Knee Amputation 04/2023, 11 Stents in mid thigh left leg, fistula left thigh, full mouth teeth extraction, TRAPEASE VENA CAVA FILTER mid thigh left leg,rt carpel tunnel , heart stents x4 rca and lad, tumor removal from uterus. Genital warts removed, INGRID. Skin cancer removed from neck, rt great toe amputated, colonoscopy, rt rotator, left shoulder replacement, cervial fusion, rt calf debridement, rt calf skin graft (May 2023) Past Anesthesia/Blood Transfusion Reactions: No Reported Reaction Additional Past Anesthesia/Blood Transfusion Reaction / Comm: no complications with prior blood tranfusions Date of Last Stent Placement:: Mar 2023 Past Psychological History: Anxiety, Depression Additional Psychological History / Comment(s): Depression r/t health issues. Smoking Status: Former smoker Past Alcohol Use History: None Reported Additional Past Alcohol Use History / Comment(s): STARTED SMOKING IN 1988 SMOKES 1/2 PPD. quit Aug 2023 Past Drug Use History: None Reported - Past Family History Mother Family Medical History: Cancer, Congestive Heart Failure (CHF), Diabetes Mellitus, Myocardial Infarction ([place]) Additional Family Medical History / Comment(s): UTERINE CANCER Father Family Medical History: Coronary Artery Disease (CAD), Myocardial Infarction ([place]) Additional Family Medical History / Comment(s): Father at age 70. Sister(s) Family Medical History: Myocardial Infarction ([place]) Additional Family Medical History / Comment(s): Patient has one sister with myocardial infarction at age 55. Son(s) Family Medical History: Deep Vein Thrombosis (DVT), Pulmonary Embolus Additional Family Medical History / Comment(s): Patient has 2 sons and one has history of DVT and pulmonary embolism. Medications and Allergies Home Medications Medication Instructions Recorded Confirmed Type Ergocalciferol (Vitamin D2) 1,250 mcg PO GUERRERO 04/01/23 01/22/25 History [Drisdol (50,000 Iu)] Apixaban [Eliquis] 5 mg PO BID 05/20/23 01/22/25 History DULoxetine HCL [Cymbalta] 60 mg PO DAILY 07/04/23 01/22/25 History INSULIN ASPART (NovoLOG) [NovoLOG See Protocol SQ AC-TID 07/04/23 01/22/25 History (formulary)] Metoprolol Tartrate [Lopressor] 25 mg PO BID 07/04/23 01/22/25 History Spironolactone 25 mg PO DAILY 08/09/23 01/22/25 History Atorvastatin Calcium [Lipitor] 80 mg PO DAILY 09/16/23 01/22/25 History Gabapentin [Neurontin] 400 mg PO BID 10/22/23 01/22/25 History Dapagliflozin Propanediol [Farxiga] 10 mg PO DAILY 02/27/24 01/22/25 History Insulin Glargine,Hum.rec.anlog 40 units SQ HS 02/27/24 01/22/25 History [Lantus Solostar Pen] Pantoprazole [Protonix] 40 mg PO DAILY 02/27/24 01/22/25 History Pioglitazone [Actos] 30 mg PO DAILY 10/05/24 01/22/25 History Cyclobenzaprine [Flexeril] 5 mg PO HS PRN 01/22/25 01/22/25 History Doxycycline Hyclate 100 mg PO BID 01/22/25 01/22/25 History Ferrous Sulfate [Feosol] 325 mg PO BID 01/22/25 01/22/25 History HYDROcodone/APAP 7.5-325MG [[place] 1 tab PO Q8H PRN 01/22/25 01/22/25 History 7.5-325] INSULIN ASPART (NovoLOG) [NovoLOG 12 unit SQ AC-TID 01/22/25 01/22/25 History (formulary)] Magnesium Oxide [Magnesium] 500 mg PO DAILY 01/22/25 01/22/25 History Melatonin 3 mg PO HS PRN 01/22/25 01/22/25 History Potassium Chloride ER [K-Dur 20] 20 meq PO DAILY 01/22/25 01/22/25 History sitaGLIPtin [Januvia] 100 mg PO DAILY 01/22/25 01/22/25 History Allergies Allergy/AdvReac Type Severity Reaction Status Date / Time vancomycin Allergy Rash/Hives/and Verified 01/22/25 08:09 vomiting diarrhea/Swelling Physical Exam Vitals: Vital Signs Temp Pulse Pulse Resp BP BP Pulse Ox 01/22/25 07:00 97.9 F 78 15 116/73 96 01/22/25 02:37 97.8 F 71 18 113/70 98 01/22/25 02:12 70 17 129/71 92 L 01/22/25 02:00 71 18 01/21/25 23:37 71 18 117/65 96 01/21/25 22:08 71 17 139/67 95 01/21/25 18:45 68 18 115/71 98 01/21/25 18:00 98.7 F 71 20 111/50 97 Intake and Output 01/21/25 01/22/25 01/22/25 22:59 06:59 14:59 Intake Total 120 Output Total 350 Balance -230 Intake: Oral 120 Output: Urine 350 Other: Voiding Method External Catheter Weight 80.739 kg 80.739 kg GENERAL DESCRIPTION: Age female lying in bed, no distress. No tachypnea or accessory muscle of respiration use. HEENT: Shows Pallor , no scleral icterus. Oral mucous membrane is dry. NECK: Trachea central, no thyromegaly. LUNGS: Unlabored breathing. Clear to auscultation anteriorly. No wheeze or crackle. HEART: S1, S2, regular rate and rhythm. No loud murmur ABDOMEN: Soft, no tenderness , EXTREMITIES: Bilateral groin wounds with good drainage tissue no slough tissue no surrounding redness or drainage SKIN: No rash, no masses palpable. NEUROLOGICAL: The patient is awake, alert, oriented x3, mood and affect normal. Results CBC & Chem 7: 01/22/25 03:39 01/22/25 03:39 Labs: Abnormal Lab Results - Last 24 Hours (Table) 01/21/25 01/21/25 01/21/25 Range/Units 18:45 18:45 19:05 MCHC 31.6 L (32.0-37.0) g/dL Immature Gran # (0.00-0.04) 10*3/uL Eosinophils # (0.04-0.35) 10*3/uL Sodium 134 L (137-145) mmol/L Creatinine 1.18 H (0.52-1.04) mg/dL Glucose 163 H (74-99) mg/dL POC Glucose (mg/dL) (70-110) mg/dL Alkaline Phosphatase 156 H (38-126) U/L Albumin 2.8 L (3.5-5.0) g/dL Lipase 539 H (23-300) U/L Urine Appearance Turbid H (Clear) Urine Protein 1+ H (Negative) Urine Glucose (UA) 4+ H (Negative) Urine Blood Moderate H (Negative) Ur Leukocyte Esterase Large H (Negative) Urine RBC 34 H (0-5) /hpf Urine WBC >182 H (0-5) /hpf Urine WBC Clumps Many H (None) /hpf Urine Mucus Rare H (None) /hpf 01/22/25 01/22/25 01/22/25 Range/Units 03:39 03:39 06:16 MCHC 30.6 L (32.0-37.0) g/dL Immature Gran # 0.06 H (0.00-0.04) 10*3/uL Eosinophils # 0.45 H (0.04-0.35) 10*3/uL Sodium (137-145) mmol/L Creatinine 1.12 H (0.52-1.04) mg/dL Glucose 164 H (74-99) mg/dL POC Glucose (mg/dL) 191 H (70-110) mg/dL Alkaline Phosphatase 175 H (38-126) U/L Albumin 3.0 L (3.5-5.0) g/dL Lipase (23-300) U/L Urine Appearance (Clear) Urine Protein (Negative) Urine Glucose (UA) (Negative) Urine Blood (Negative) Ur Leukocyte Esterase (Negative) Urine RBC (0-5) /hpf Urine WBC (0-5) /hpf Urine WBC Clumps (None) /hpf Urine Mucus (None) /hpf 01/22/25 Range/Units 11:04 MCHC (32.0-37.0) g/dL Immature Gran # (0.00-0.04) 10*3/uL Eosinophils # (0.04-0.35) 10*3/uL Sodium (137-145) mmol/L Creatinine (0.52-1.04) mg/dL Glucose (74-99) mg/dL POC Glucose (mg/dL) 176 H (70-110) mg/dL Alkaline Phosphatase (38-126) U/L Albumin (3.5-5.0) g/dL Lipase (23-300) U/L Urine Appearance (Clear) Urine Protein (Negative) Urine Glucose (UA) (Negative) Urine Blood (Negative) Ur Leukocyte Esterase (Negative) Urine RBC (0-5) /hpf Urine WBC (0-5) /hpf Urine WBC Clumps (None) /hpf Urine Mucus (None) /hpf Assessment and Plan (1) Urinary tract infection Current Visit: Yes Status: Acute Code(s): N39.0 - URINARY TRACT INFECTION, SITE NOT SPECIFIED SNOMED Code(s): 01149716 (2) Allergy to vancomycin Current Visit: No Status: Acute Code(s): Z88.1 - ALLERGY STATUS TO OTHER ANTIBIOTIC AGENTS SNOMED Code(s): 913077737 Plan: 1patient to the hospital with lower abdominal/suprapubic pain she did have symptoms of urinary pressure significantly positive UA with evidence of a bladder wall thickening on the CT highly suspicious for cystitis/UTI responsible for her symptom of abdominal pain with evidence of any bowel wall thickening or deformity changes as reported on the CT and would likely need for further enteric gram-negative pathogen. 2patient did have bilateral groin area wounds with no evidence of any cellulitis or wound infection clinically. 3 will recommend local wound care with the dry Aquacel silver dressing change daily. 4patient will be empirically treated with Rocephin 2 g daily while waiting for the culture to finalize Plan of care discussed with admitting physician We will follow on clinical condition and cultures to further adjust medication if needed Thank you for this consultation we will follow the patient along with you Dictation was produced using [employer] dictation software. please excuse any grammatical, word or spelling errors. 4 Time with Patient: Greater than 30
[2025-01-23 06:18] LABS: Glucose,Whole Blood 128 mg/dL (70-110)
[2025-01-23] MEDS: PANTOPRAZOLE 40 MG TABLET PO SCH (06:46)
--- NOTE | 2025-01-23 09:58 | P.PN ---
Subjective Progress Note Date: 01/23/25 HISTORY OF PRESENT ILLNESS This is a 64-year-old female patient of mine with history of CAD with multiple cardiac stents in mid RCA, mid LAD, obtuse marginal branch and followed by Dr. Bill closely, peripheral artery disease with previous stenting done as well has amputation of the right great toe secondary to osteomyelitis, CVA with no residual deficits, hypertension, COPD, diabetes mellitus type 2, previous multiple DVT and PE requiring chronic anticoagulation on eliquis, history of GI bleed secondary to antral gastritis, esophagitis, vitamin D deficiency, history of left humerus fracture, history of PAD post right AKA and CAD post PCI of the RCA with intermediate disease of the LAD, patient underwent bilateral femoral thromboendarterectomy with femorofemoral bypass that was done successfully by Dr. Pardo on 09/14/2024 and the patient was discharged home was doing fine, she ended up having diarrheal illness and developed to have a significant drainage from the left groin surgical site, she ended up coming to the ER at [facility] back on 10/05/2024 and she underwent incision and drainage with washout of the left groin with wound VAC placement, and from there the patient was treated for MRSA bacteremia at the same time, and follow-up with vascular surgery eventually she ended up going for a more surgical intervention, she was admitted to [facility] at that time, she had no surgical intervention of the right groin left groin, and eventually went to [facility], and she stated that her for about 2 months, she has been chronically on oral antibiotic for infection suppression, and she ended up having plastic surgery by Dr. Ayala as well for both groin area, patient presented to the emergency department at [facility] yesterday because of lower abdominal pain associated with increased pressure and had the CT angiography of the abdomen and pelvis that showed no evidence of dissection and did show the prior venous stenting and prior surgical intervention with the graft that she had in the past, it also showed thickened bladder suggestive of possible cystitis her urinalysis was abnormal that was sent for culture, infectious consultation was obtained, patient was admitted to the hospital for evaluation and treatment for possible UTI with source. 01/23: Patient is laying down in bed in no apparent distress, she continues to have increased pressure in the left lower quadrant in the right lower quadrant, suprapubic area, her CT scan is suggestive of acute cystitis, urine culture came back negative, continue ceftriaxone 2 g piggyback every 24 hours, discussed with infectious disease the next plan patient has been on doxycycline 100 mg orally twice every day for life due to a chronic infection, this could be the reason why her culture is not growing anything at this time, continue current treatment plan, follow-up with the patient very closely, unless infectious disease think that the patient can go home then we can stop the antibiotic and send her home and follow-up with us as an outpatient. REVIEW OF SYSTEMS Constitutional: No fever, No chills, no night sweats. Reports no weight loss. Reports weakness, Reports fatigue no lethargy. No daytime sleepiness. HEENT: No headache. No dizziness. No nasal drainage or congestion. No epistaxis. No sore throat. Lungs: No shortness of breath, no cough, no sputum production. No wheezing. Cardiovascular: No chest pain, no lower extremity edema. No palpitations. No paroxysmal nocturnal dyspnea. No orthopnea. No lightheadedness or dizziness. No syncopal episodes. Abdominal: Reports abdominal pain. Reports nausea, no vomiting. no diarrhea. No constipation. No bloody or tarry stools. good appetite. Genitourinary: No dysuria, increased frequency, urgency. No urinary retention. Musculoskeletal: No myalgias. positive for muscle weakness, reports balance issues. Integumentary: Right AKA , left lower extremity is intact, pulses by Doppler, bilateral groin area with dressing and bilateral wounds that appear clean. Neurologic: No aphasia. No facial droop. No change in mentation. No head injury. No headache. No paralysis. positive for paresthesia. Psychiatric: Reports depression. Reports anxiety. No mood swings. Endocrine: abnormal blood sugars. positive for weight change. No excessive sweating or thirst. No cold intolerance. PHYSICAL EXAMINATION Gen: This is a 64-year-old female. She is resting in bed i no acute distress HEENT: Head is atraumatic, normocephalic. Pupils equal, round. Sclerae is anicteric. Mucous members of the mouth are somewhat dry. NECK: Supple. No JVD. No lymphadenopathy. No thyromegaly. LUNGS: Clear to auscultation. No wheezes or rhonchi. No intercostal retractions. 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 ABDOMEN: Soft, minimal tenderness to the lower abdomen non distended and no rebound or guarding positive bowel sounds EXTREMITIES: Right above-knee amputation , left lower extremity is intact, left big toe minimal abrasions. Bilateral wounds to both groins that appears to have clean base with no drainage. NEUROLOGICAL: Patient is awake, alert and oriented x3. Cranial nerves 2 through 12 are grossly intact muscle power were 4 out of 5 in upper extremity is, and 3 out of 5 in the left lower extremity. She does have a right above-knee amputation. ASSESSMENT AND PLAN 1. urinary tract infection with SIRS. Continue patient on ceftriaxone 2 g p.o. every 24 hours, urine cultures negative so far however the patient has been chronically on doxycycline 100 mg orally twice every day. 2. Status post incision and drainage of left groin infected surgical wound followed by multiple surgical intervention with plastic surgery with resultant bilateral open wounds to both groin that appears to be clean at this point in time. Will continue with saline gauze and cover with ABD pads keep the area brian an and dry patient was started on Aquacel silver with wet-to-dry dressing. 3. Coronary artery disease with recent stent of the RCA due to recent in-stent restenosis. Patient has had previous multiple cardiac stents to the RCA and mid LAD, obtuse marginal branch. Continue patient on aspirin 81 mg daily, Lopressor 25 mg twice daily, Atorvastatin 80 mg po daily . 4. Diabetes mellitus type 2 uncontrolled with hypoglycemia , we will continue Lantus 40 units units at bedtime, along with a sliding scale insulin, continue with Humalog 12 units before each meal along with pioglitazone 30 mg once every day, continue Farxiga 10 mg once every day we will continue with the linagliptin 5 mg once every day.. 5. Mixed hyperlipidemia. Continue patient on atorvastatin 80 mg once every day, monitor lipid panel, keep LDL 55-70. 6. Chronic DVT and PEs. Continue patient on eliquis 5 mg twice daily. 7. Hypertension and hypertensive cardiovascular disease. Continue metoprolol 25 mg orally twice every day. Monitor the patient blood pressure very closely. 8. Gastroesophageal reflux disease and GI prophylaxis. Continue Pantoprazole 40 mg daily 9. Diabetic neuropathy. we will continue wit Gabapentin 400 mg po tid. 10. Generalized anxiety disorder, recurrent depression. Continue Cymbalta 60 mg po daily. 11. DVT prophylaxis. Continue Eliquis 5 mg po bid 12. GI prophylaxis. Continue patient on pantoprazole 40 mg once every day 13. Plan to discharge the patient home with home health care hopefully in the next 24 hours Objective - Vital Signs Vital signs: Vital Signs Temp 98.2 F 01/23/25 01:03 Pulse 66 01/23/25 01:03 Resp 18 01/23/25 01:03 BP 109/63 01/23/25 01:03 Pulse Ox 97 01/23/25 01:03 FiO2 Intake & Output 01/22/25 01/23/25 01/23/25 18:59 06:59 18:59 Intake Total 360 Output Total 1600 1000 Balance -1600 -640 Intake: Oral 360 Output: Urine 1600 1000 Other: Voiding Method External Catheter - Labs CBC & Chem 7: 01/22/25 03:39 01/22/25 03:39 Labs: Abnormal Lab Results - Last 24 Hours (Table) 01/22/25 01/22/25 01/22/25 Range/Units 11:04 16:26 19:47 POC Glucose (mg/dL) 176 H 288 H 219 H (70-110) mg/dL 01/23/25 Range/Units 06:17 POC Glucose (mg/dL) 128 H (70-110) mg/dL Microbiology - Last 24 Hours (Table) 01/21/25 22:08 Urine Culture - Final Urine,Voided
[2025-01-23 10:05] LABS: Basophils # (A) 0.04 X 10*3/uL (0.00-0.10); Basophils % (A) 0.6 %; Eosinophils # (A) 0.39 X 10*3/uL (0.04-0.35); Eosinophils % (A) 5.4 %; HCT 41.2 % (37.2-46.3); HGB 12.1 g/dL (12.0-15.0); Lymphocytes # (A) 1.47 X 10*3/uL (0.90-5.00); Lymphocytes % (A) 20.5 %; MCH 27.9 pg (27.0-32.0); MCHC 29.4 g/dL (32.0-37.0); MCV 95.2 FL (80.0-97.0); Mean Platelet Volume 11.1 FL (9.5-12.2); Monocytes # (A) 0.45 X 10*3/uL (0.20-1.00); Monocytes % (A) 6.3 %; NRBC Per 100 WBC 0 X 10*3/uL (0.00-0.01); Neutrophils # (A) 4.79 X 10*3/uL (1.80-7.70); Neutrophils % (A) 66.9 %; Platelet Count 219 X 10*3/uL (140-440); RBC 4.33 X 10*6/uL (4.10-5.20); RDW 16.6 % (11.5-14.5); WBC 7.16 X 10*3/uL (4.50-10.00)
[2025-01-23 10:09] LABS: BUN/Creat Ratio 12.18 Ratio (12.00-20.00); Blood Urea Nitrogen 13.4 mg/dL (9.0-27.0); Chloride 104 mmol/L (96-109); Glucose 125 mg/dL (70-110); Sodium 139 mmol/L (135-145)
[2025-01-23 10:10] LABS: ALT 10 U/L (8-44); AST 30 U/L (13-35); Albumin 2.5 g/dL (3.8-4.9); Albumin/Globulin Ratio 0.76 Ratio (1.60-3.17); Alkaline Phosphatase 153 U/L (41-126); Calcium 8.7 mg/dL (8.7-10.3); Carbon Dioxide 24.1 mmol/L (21.6-31.8); Globulin 3.3 g/dL (1.6-3.3); Total Bilirubin 0.2 mg/dL (0.3-1.2); Total Protein 5.8 g/dL (6.2-8.2)
[2025-01-23] MEDS: ATORVASTATIN 80 MG TAB PO SCH (10:59)
[2025-01-23] MEDS: MAGNESIUM OXIDE 400 MG TAB PO SCH (10:59)
[2025-01-23 11:41] LABS: Glucose,Whole Blood 191 mg/dL (70-110)
--- NOTE | 2025-01-23 15:01 | P.PN ---
Subjective Progress Note Date: 01/23/25 Principal diagnosis: Reason for follow-up is abdominal pain question of UTI Patient is a 64-year-old female with a past medical history significant for Coronary Artery Disease (CAD), Cancer, CVA/TIA, Diabetes Mellitus, Deep Vein Thrombosis (DVT), GERD/Reflux, Memory Impairment, Osteoarthritis (OA), Pulmonary Embolus (PE), Vascular Disorder, did have abdominal pain positive UA concerning for UTI. On today's evaluation that is 01/24/2024, patient did have a temperature of 97.9 F this morning and denies having any chills, patient is on room air and breathing comfortably no chest pain or cough, the patient did not have any nausea vomiting still complaining of left-sided abdominal pain overall urine is getting more clear per patient no diarrhea. Patient white count 7.16, creatinine is 1.1 urine cultures so far reported negative Objective - Vital Signs Vital signs: Vital Signs Temp 97.9 F 01/23/25 07:19 Pulse 64 01/23/25 07:19 Resp 16 01/23/25 07:19 BP 97/61 01/23/25 07:19 Pulse Ox 97 01/23/25 07:19 FiO2 Intake & Output 01/22/25 01/23/25 01/23/25 18:59 06:59 18:59 Intake Total 360 Output Total 1600 1000 Balance -1600 -640 Intake: Oral 360 Output: Urine 1600 1000 Other: Voiding Method External Catheter - Exam GENERAL DESCRIPTION: Middle-age female lying in bed in no distress RESPIRATORY SYSTEM: Unlabored breathing , decreased breath sounds at bases HEART: S1 S2 regular rate and rhythm , ABDOMEN: Soft , no tenderness - Labs CBC & Chem 7: 01/23/25 05:25 01/23/25 05:25 Labs: Abnormal Lab Results - Last 24 Hours (Table) 01/22/25 01/22/25 01/23/25 Range/Units 16:26 19:47 05:25 MCHC (32.0-37.0) g/dL RDW (11.5-14.5) % Eosinophils # (0.04-0.35) X 10*3/uL Est GFR (CKD-EPI) (>=60) Glucose (70-110) mg/dL POC Glucose (mg/dL) 288 H 219 H (70-110) mg/dL Hemoglobin A1c 6.9 H (<=6.0) % Total Bilirubin (0.3-1.2) mg/dL Alkaline Phosphatase (41-126) U/L Total Protein (6.2-8.2) g/dL Albumin (3.8-4.9) g/dL Albumin/Globulin Ratio (1.60-3.17) Ratio 01/23/25 01/23/25 01/23/25 Range/Units 05:25 05:25 06:17 MCHC 29.4 L (32.0-37.0) g/dL RDW 16.6 H (11.5-14.5) % Eosinophils # 0.39 H (0.04-0.35) X 10*3/uL Est GFR (CKD-EPI) 56 L (>=60) Glucose 125 H (70-110) mg/dL POC Glucose (mg/dL) 128 H (70-110) mg/dL Hemoglobin A1c (<=6.0) % Total Bilirubin 0.2 L (0.3-1.2) mg/dL Alkaline Phosphatase 153 H (41-126) U/L Total Protein 5.8 L (6.2-8.2) g/dL Albumin 2.5 L (3.8-4.9) g/dL Albumin/Globulin Ratio 0.76 L (1.60-3.17) Ratio 01/23/25 Range/Units 11:40 MCHC (32.0-37.0) g/dL RDW (11.5-14.5) % Eosinophils # (0.04-0.35) X 10*3/uL Est GFR (CKD-EPI) (>=60) Glucose (70-110) mg/dL POC Glucose (mg/dL) 191 H (70-110) mg/dL Hemoglobin A1c (<=6.0) % Total Bilirubin (0.3-1.2) mg/dL Alkaline Phosphatase (41-126) U/L Total Protein (6.2-8.2) g/dL Albumin (3.8-4.9) g/dL Albumin/Globulin Ratio (1.60-3.17) Ratio Microbiology - Last 24 Hours (Table) 01/21/25 22:08 Urine Culture - Final Urine,Voided Assessment and Plan (1) Urinary tract infection Current Visit: Yes Status: Acute Code(s): N39.0 - URINARY TRACT INFECTION, SITE NOT SPECIFIED SNOMED Code(s): 70440235 (2) Allergy to vancomycin Current Visit: No Status: Acute Code(s): Z88.1 - ALLERGY STATUS TO OTHER ANTIBIOTIC AGENTS SNOMED Code(s): 043091213 Plan: 1patient to the hospital with lower abdominal/suprapubic pain she did have symptoms of urinary pressure significantly positive UA with evidence of a bladder wall thickening on the CT highly suspicious for cystitis/UTI responsible for her symptom of abdominal pain with evidence of any bowel wall thickening or deformity changes as reported on the CT and would likely need for further enteric gram-negative pathogen. 2patient did have bilateral groin area wounds with no evidence of any cellulitis or wound infection clinically local wound care with the dry Aquacel silver dressing change daily. 3she did have improvement in her urinary symptoms urine is little more clear culture reported negative so far we will continue with Rocephin is still having left lower quadrant abdominal pain I recommend repeating a CT of abdominal pelvis with oral contrast to rule out other etiology as initial CAT scan was done without any oral contrast Dictation was produced using [employer] dictation software. please excuse any gramma tical, word or spelling errors. 4 Time with Patient: Less than 30
[2025-01-23 16:46] LABS: Glucose,Whole Blood 98 mg/dL (70-110)
[2025-01-23 20:56] LABS: Glucose,Whole Blood 94 mg/dL (70-110)
[2025-01-24 06:24] LABS: Glucose,Whole Blood 145 mg/dL (70-110)
--- NOTE | 2025-01-24 09:31 | P.PN ---
Subjective Progress Note Date: 01/24/25 HISTORY OF PRESENT ILLNESS This is a 64-year-old female patient of mine with history of CAD with multiple cardiac stents in mid RCA, mid LAD, obtuse marginal branch and followed by Dr. Bill closely, peripheral artery disease with previous stenting done as well has amputation of the right great toe secondary to osteomyelitis, CVA with no residual deficits, hypertension, COPD, diabetes mellitus type 2, previous multiple DVT and PE requiring chronic anticoagulation on eliquis, history of GI bleed secondary to antral gastritis, esophagitis, vitamin D deficiency, history of left humerus fracture, history of PAD post right AKA and CAD post PCI of the RCA with intermediate disease of the LAD, patient underwent bilateral femoral thromboendarterectomy with femorofemoral bypass that was done successfully by Dr. Pardo on 09/14/2024 and the patient was discharged home was doing fine, she ended up having diarrheal illness and developed to have a significant drainage from the left groin surgical site, she ended up coming to the ER at [facility] back on 10/05/2024 and she underwent incision and drainage with washout of the left groin with wound VAC placement, and from there the patient was treated for MRSA bacteremia at the same time, and follow-up with vascular surgery eventually she ended up going for a more surgical intervention, she was admitted to [facility] at that time, she had no surgical intervention of the right groin left groin, and eventually went to [place] [facility], and she stated that her for about 2 months, she has been chronically on oral antibiotic for infection suppression, and she ended up having plastic surgery by Dr. Ayala as well for both groin area, patient presented to the emergency department at [facility] yesterday because of lower abdominal pain associated with increased pressure and had the CT angiography of the abdomen and pelvis that showed no evidence of dissection and did show the prior venous stenting and prior surgical intervention with the graft that she had in the past, it also showed thickened bladder suggestive of possible cystitis her urinalysis was abnormal that was sent for culture, infectious consultation was obtained, patient was admitted to the hospital for evaluation and treatment for possible UTI with source. 01/23: Patient is laying down in bed in no apparent distress, she continues to have increased pressure in the left lower quadrant in the right lower quadrant, suprapubic area, her CT scan is suggestive of acute cystitis, urine culture came back negative, continue ceftriaxone 2 g piggyback every 24 hours, discussed with infectious disease the next plan patient has been on doxycycline 100 mg orally twice every day for life due to a chronic infection, this could be the reason why her culture is not growing anything at this time, continue current treatment plan, follow-up with the patient very closely, unless infectious disease think that the patient can go home then we can stop the antibiotic and send her home and follow-up with us as an outpatient. 01/24: Patient still complaining of abdominal pain specially in the lower abdomen, suprapubic area, she stated that is coming up from her right flank area going all the way down associated with a burning sensation urgency to go to the bathroom, she does have a pure wick in place, urine culture is negative, patient's will go for another CT scan of the abdomen pelvis with oral contrast only for further evaluation recommendation continue IV antibiotic in the form of ceftriaxone 2 g piggyback every 24 hours, infectious diseases following as well. REVIEW OF SYSTEMS Constitutional: No fever, No chills, no night sweats. Reports no weight loss. Reports weakness, Reports fatigue no lethargy. No daytime sleepiness. HEENT: No headache. No dizziness. No nasal drainage or congestion. No epistaxis. No sore throat. Lungs: No shortness of breath, no cough, no sputum production. No wheezing. Cardiovascular: No chest pain, no lower extremity edema. No palpitations. No paroxysmal nocturnal dyspnea. No orthopnea. No lightheadedness or dizziness. No syncopal episodes. Abdominal: Reports abdominal pain. Reports nausea, no vomiting. no diarrhea. No constipation. No bloody or tarry stools. good appetite. Genitourinary: No dysuria, increased frequency, urgency. No urinary retention. Musculoskeletal: No myalgias. positive for muscle weakness, reports balance issues. Integumentary: Right AKA , left lower extremity is intact, pulses by Doppler, bilateral groin area with dressing and bilateral wounds that appear clean. Neurologic: No aphasia. No facial droop. No change in mentation. No head injury. No headache. No paralysis. positive for paresthesia. Psychiatric: Reports depression. Reports anxiety. No mood swings. Endocrine: abnormal blood sugars. positive for weight change. No excessive sweating or thirst. No cold intolerance. PHYSICAL EXAMINATION Gen: This is a 64-year-old female. She is resting in bed i no acute distress HEENT: Head is atraumatic, normocephalic. Pupils equal, round. Sclerae is anicteric. Mucous members of the mouth are somewhat dry. NECK: Supple. No JVD. No lymphadenopathy. No thyromegaly. LUNGS: Clear to auscultation. No wheezes or rhonchi. No intercostal r etractions. 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 ABDOMEN: Soft, minimal tenderness to the lower abdomen and suprapubic area non distended and no rebound or guarding positive bowel sounds EXTREMITIES: Right above-knee amputation , left lower extremity is intact, left big toe minimal abrasions. Bilateral wounds to both groins that appears to have clean base with no drainage. NEUROLOGICAL: Patient is awake, alert and oriented x3. Cranial nerves 2 through 12 are grossly intact muscle power were 4 out of 5 in upper extremity is, and 3 out of 5 in the left lower extremity. She does have a right above-knee amputation. ASSESSMENT AND PLAN 1. Abdominal pain with suprapubic tenderness and left lower quadrant tenderness along with thickened bladder wall on the CT scan, we will arrange for a CT scan of the abdomen pelvis with oral contrast only for further evaluation recommendation, continue IV antibiotic in the form of ceftriaxone 2 g IV piggyback every 24 hours, her urine culture is negative. 2. Status post incision and drainage of left groin infected surgical wound followed by multiple surgical intervention with plastic surgery with resultant bilateral open wounds to both groin that appears to be clean at this point in time. Will continue with saline gauze and cover with ABD pads keep the area clean and dry patient was started on Aquacel silver with wet-to-dry dressing. 3. Coronary artery disease with recent stent of the RCA due to recent in-stent restenosis. Patient has had previous multiple cardiac stents to the RCA and mid LAD, obtuse marginal branch. Continue patient on aspirin 81 mg daily, Lopressor 25 mg twice daily, Atorvastatin 80 mg po daily . 4. Diabetes mellitus type 2 uncontrolled with hypoglycemia , we will continue Lantus 40 units units at bedtime, along with a sliding scale insulin, continue with Humalog 12 units before each meal along with pioglitazone 30 mg once every day, continue Farxiga 10 mg once every day we will continue with the linagliptin 5 mg once every day.. 5. Mixed hyperlipidemia. Continue patient on atorvastatin 80 mg once every day, monitor lipid panel, keep LDL 55-70. 6. Chronic DVT and PEs. Continue patient on eliquis 5 mg twice daily. 7. Hypertension and hypertensive cardiovascular disease. Continue metoprolol 25 mg orally twice every day. Monitor the patient blood pressure very closely. 8. Gastroesophageal reflux disease and GI prophylaxis. Continue Pantoprazole 40 mg daily 9. Diabetic neuropathy. we will continue wit Gabapentin 400 mg po tid. 10. Generalized anxiety disorder, recurrent depression. Continue Cymbalta 60 mg po daily. 11. DVT prophylaxis. Continue Eliquis 5 mg po bid 12. GI prophylaxis. Continue patient on pantoprazole 40 mg once every day 13. await the result of the CT scan of the abdomen pelvis with oral contrast only. Objective - Vital Signs Vital signs: Vital Signs Temp 97.9 F 01/24/25 01:12 Pulse 70 01/24/25 01:12 Resp 16 01/24/25 01:12 BP 106/63 01/24/25 01:40 Pulse Ox 95 01/24/25 01:12 FiO2 Intake & Output 01/23/25 01/24/25 01/24/25 18:59 06:59 18:59 Intake Total 240 Output Total 900 900 Balance -900 -660 Intake: Oral 240 Output: Urine 900 900 Other: Voiding Method External Catheter External Catheter # Voids 1 - Labs CBC & Chem 7: 01/23/25 05:25 01/23/25 05:25 Labs: Abnormal Lab Results - Last 24 Hours (Table) 01/23/25 01/23/25 01/23/25 Range/Units 05:25 05:25 05:25 MCHC 29.4 L (32.0-37.0) g/dL RDW 16.6 H (11.5-14.5) % Eosinophils # 0.39 H (0.04-0.35) X 10*3/uL Est GFR (CKD-EPI) 56 L (>=60) Glucose 125 H (70-110) mg/dL POC Glucose (mg/dL) (70-110) mg/dL Hemoglobin A1c 6.9 H (<=6.0) % Total Bilirubin 0.2 L (0.3-1.2) mg/dL Alkaline Phosphatase 153 H (41-126) U/L Total Protein 5.8 L (6.2-8.2) g/dL Albumin 2.5 L (3.8-4.9) g/dL Albumin/Globulin Ratio 0.76 L (1.60-3.17) Ratio 01/23/25 01/24/25 Range/Units 11:40 06:23 MCHC (32.0-37.0) g/dL RDW (11.5-14.5) % Eosinophils # (0.04-0.35) X 10*3/uL Est GFR (CKD-EPI) (>=60) Glucose (70-110) mg/dL POC Glucose (mg/dL) 191 H 145 H (70-110) mg/dL Hemoglobin A1c (<=6.0) % Total Bilirubin (0.3-1.2) mg/dL Alkaline Phosphatase (41-126) U/L Total Protein (6.2-8.2) g/dL Albumin (3.8-4.9) g/dL Albumin/Globulin Ratio (1.60-3.17) Ratio
[2025-01-24] MEDS: IOPAMIDOL CONTRAST (ORAL USE) VIAL PO PRN (10:32)
--- NOTE | 2025-01-24 11:57 | CT ---
EXAMINATION TYPE: CT abdomen pelvis wo con DATE OF EXAM: 01/24/2025 COMPARISON: 07/08/2024 CLINICAL INDICATION: Female, 64 years old with history of Abdominal pain; PHH, abdominal pain TECHNIQUE: CT scan of the abdomen and pelvis is performed without oral or IV contrast. CT DLP: 653.[address] CTDI: mGy Automated exposure control for dose reduction was used. FINDINGS: Within the limitations of a non-contrast study, the following observations are made. The lungs are clear. Gallbladder is normal and there is no gallstone, wall thickening, pericholecystic fluid or distention . There is no biliary ductal dilatation. There is no organomegaly of the liver, pancreas, spleen or adrenal glands. The gallbladder is surgica lly absent. Pancreas is atrophic There are no renal calcifications or hydronephrosis. The caliber of the abdominal aorta is normal and there is no retroperitoneal adenopathy or hemorrhage .. There is a suprarenal IVC filter. There is stent in the distal inferior vena cava and throughout t he left pelvic veins including the left common iliac vein, left external iliac pain in the left commo n femoral vein. There is calcified clot within the distal left common femoral vein. Multiple anterior abdominal wall varices. The bowel loops are normal in caliber is no evidence of obstruction. No inflammatory changes are iden tified in the mesentery and there is no free intraperitoneal air or fluid. There is no pelvic mass, free fluid, abscess or adenopathy. There is a stable moderate compression fracture of T11.. IMPRESSION: No acute changes within the abdomen or pelvis. Postsurgical changes as described above, stable compar ed to the previous study. [facility], , 01/24/2025 11:54 AM
[2025-01-24 11:58] LABS: Glucose,Whole Blood 63 mg/dL (70-110)
--- NOTE | 2025-01-24 15:46 | P.PN ---
Subjective Progress Note Date: 01/24/25 Principal diagnosis: Reason for follow-up is abdominal pain question of UTI Patient is a 64-year-old female with a past medical history significant for Coronary Artery Disease (CAD), Cancer, CVA/TIA, Diabetes Mellitus, Deep Vein Thrombosis (DVT), GERD/Reflux, Memory Impairment, Osteoarthritis (OA), Pulmonary Embolus (PE), Vascular Disorder, did have abdominal pain positive UA concerning for UTI. On today's evaluation that is 01/24/2025, Patient is afebrile patient is currently on room air and denies having any shortness of breath, the patient denies any chest pain or cough, the patient denies any nausea vomiting still complaining of abdominal pain and has also developed diarrhea with multiple loose stools today. No new lab has been obtained today Objective - Vital Signs Vital signs: Vital Signs Temp 97.6 F 01/24/25 09:50 Pulse 73 01/24/25 09:50 Resp 16 01/24/25 09:50 BP 120/75 01/24/25 09:50 Pulse Ox 99 01/24/25 09:50 FiO2 Intake & Output 01/23/25 01/24/25 01/24/25 18:59 06:59 18:59 Intake Total 240 Output Total 900 900 Balance -900 -660 Intake: Oral 240 Output: Urine 900 900 Other: Voiding Method External Catheter External Catheter External Catheter # Voids 1 - Exam GENERAL DESCRIPTION: Middle-age female lying in bed in no distress RESPIRATORY SYSTEM: Unlabored breathing , decreased breath sounds at bases HEART: S1 S2 regular rate and rhythm , ABDOMEN: Soft , no tenderness - Labs CBC & Chem 7: 01/23/25 05:25 01/23/25 05:25 Labs: Abnormal Lab Results - Last 24 Hours (Table) 01/24/25 01/24/25 Range/Units 06:23 11:57 POC Glucose (mg/dL) 145 H 63 L (70-110) mg/dL Assessment and Plan (1) Urinary tract infection Current Visit: Yes Status: Acute Code(s): N39.0 - URINARY TRACT INFECTION, SITE NOT SPECIFIED SNOMED Code(s): 73902182 (2) Allergy to vancomycin Current Visit: No Status: Acute Code(s): Z88.1 - ALLERGY STATUS TO OTHER ANTIBIOTIC AGENTS SNOMED Code(s): 288082788 Plan: 1patient to the hospital with lower abdominal/suprapubic pain she did have symptoms of urinary pressure significantly positive UA with evidence of a bladder wall thickening on the CT highly suspicious for cystitis/UTI responsible for her symptom of abdominal pain with evidence of any bowel wall thickening or deformity changes as reported on the CT and would likely need for further enteric gram-negative pathogen. 2patient did have bilateral groin area wounds with no evidence of any cellulit is or wound infection clinically local wound care with the dry Aquacel silver dressing change daily. 3she did have improvement in her urinary symptoms and urine culture have been negative we did have CT of abdominal pelvis that was negative for acute abnormality. 4patient has developed diarrhea possible antibiotic associated with discontinue Rocephin stool for C. difficile requested and will treat if positive Dictation was produced using [employer] dictation software. please excuse any grammatical, word or spelling errors. Time with Patient: Less than 30
[2025-01-24 16:14] LABS: Glucose,Whole Blood 189 mg/dL (70-110)
[2025-01-24] MEDS: LOPERAMIDE 2 MG CAP PO PRN (20:34)
[2025-01-24] MEDS: MELATONIN 3 MG TABLET PO PRN (20:38)
[2025-01-24 20:39] LABS: Glucose,Whole Blood 227 mg/dL (70-110)
[2025-01-25 06:11] LABS: Glucose,Whole Blood 78 mg/dL (70-110)
[2025-01-25 10:19] LABS: Basophils # (A) 0.02 X 10*3/uL (0.00-0.10); Basophils % (A) 0.3 %; Eosinophils # (A) 0.24 X 10*3/uL (0.04-0.35); Eosinophils % (A) 3.6 %; HCT 38.3 % (37.2-46.3); HGB 11.2 g/dL (12.0-15.0); Lymphocytes # (A) 1.04 X 10*3/uL (0.90-5.00); Lymphocytes % (A) 15.5 %; MCH 27.9 pg (27.0-32.0); MCHC 29.2 g/dL (32.0-37.0); MCV 95.3 FL (80.0-97.0); Mean Platelet Volume 12.5 FL (9.5-12.2); Monocytes # (A) 0.41 X 10*3/uL (0.20-1.00); Monocytes % (A) 6.1 %; NRBC Per 100 WBC 0 X 10*3/uL (0.00-0.01); Neutrophils % (A) 74.2 %; Platelet Count 166 X 10*3/uL (140-440); RBC 4.02 X 10*6/uL (4.10-5.20); RDW 16.5 % (11.5-14.5); WBC 6.73 X 10*3/uL (4.50-10.00)
[2025-01-25 10:33] LABS: ALT 19 U/L (8-44); AST 53 U/L (13-35); Albumin 2.4 g/dL (3.8-4.9); Albumin/Globulin Ratio 0.75 Ratio (1.60-3.17); Alkaline Phosphatase 205 U/L (41-126); BUN/Creat Ratio 11.09 Ratio (12.00-20.00); Blood Urea Nitrogen 12.2 mg/dL (9.0-27.0); Calcium 8.1 mg/dL (8.7-10.3); Carbon Dioxide 25.2 mmol/L (21.6-31.8); Chloride 103 mmol/L (96-109); Globulin 3.2 g/dL (1.6-3.3); Glucose 73 mg/dL (70-110); Potassium 5.2 mmol/L (3.5-5.5); Sodium 136 mmol/L (135-145); Total Bilirubin 0.3 mg/dL (0.3-1.2); Total Protein 5.6 g/dL (6.2-8.2)
[2025-01-25 11:46] LABS: Glucose,Whole Blood 154 mg/dL (70-110)
--- NOTE | 2025-01-25 12:50 | P.DS ---
Providers Date of admission: 01/21/25 22:34 Expected date of discharge: 01/25/25 Attending physician: Tramaine Tejeda Consults: 01/21/25 22:34 Consult Physician Routine Consulting Provider: Zaira Sheppard Consult Reason/Comments: uti Do you want consulting provider notified?: Yes Primary care physician: Tramaine Tejeda Hospital Course: HISTORY OF PRESENT ILLNESS This is a 64-year-old female patient of mine with history of CAD with multiple cardiac stents in mid RCA, mid LAD, obtuse marginal branch and followed by Dr. Bill closely, peripheral artery disease with previous stenting done as well has amputation of the right great toe secondary to osteomyelitis, CVA with no residual deficits, hypertension, COPD, diabetes mellitus type 2, previous mul tiple DVT and PE requiring chronic anticoagulation on eliquis, history of GI bleed secondary to antral gastritis, esophagitis, vitamin D deficiency, history of left humerus fracture, history of PAD post right AKA and CAD post PCI of the RCA with intermediate disease of the LAD, patient underwent bilateral femoral thromboendarterectomy with femorofemoral bypass that was done successfully by Dr. Pardo on 09/14/2024 and the patient was discharged home was doing fine, she ended up having diarrheal illness and developed to have a significant drainage from the left groin surgical site, she ended up coming to the ER at [facility] back on 10/05/2024 and she underwent incision and drainage with washout of the left groin with wound VAC placement, and from there the patient was treated for MRSA bacteremia at the same time, and follow-up with vascular surgery eventually she ended up going for a more surgical intervention, she was admitted to [facility] at that time, she had no surgical intervention of the right groin left groin, and eventually went to [place] [facility], and she stated that her for about 2 months, she has been chronically on oral antibiotic for infection suppression, and she ended up having plastic surgery by Dr. Ayala as well for both groin area, patient presented to the emergency department at [facility] yesterday because of lower abdominal pain associated with increased pressure and had the CT angiography of the abdomen and pelvis that showed no evidence of dissection and did show the prior venous stenting and prior surgical intervention with the graft that she had in the past, it also showed thickened bladder suggestive of possible cystitis her urinalysis was abnormal that was sent for culture, infectious consultation was obtained, patient was admitted to the hospital for evaluation and treatment for possible UTI with source. 01/23: Patient is laying down in bed in no apparent distress, she continues to have increased pressure in the left lower quadrant in the right lower quadrant, suprapubic area, her CT scan is suggestive of acute cystitis, urine culture came back negative, continue ceftriaxone 2 g piggyback every 24 hours, discussed with infectious disease the next plan patient has been on doxycycline 100 mg orally twice every day for life due to a chronic infection, this could be the reason why her culture is not growing anything at this time, continue current treatment plan, follow-up with the patient very closely, unless infectious disease think that the patient can go home then we can stop the antibiotic and send her home and follow-up with us as an outpatient. 01/24: Patient still complaining of abdominal pain specially in the lower abdomen, suprapubic area, she stated that is coming up from her right flank area going all the way down associated with a burning sensation urgency to go to the bathroom, she does have a pure wick in place, urine culture is negative, patient's will go for another CT scan of the abdomen pelvis with oral contrast only for further evaluation recommendation continue IV antibiotic in the form of ceftriaxone 2 g piggyback every 24 hours, infectious diseases following as well. 01/25: Patient is laying down in bed in no apparent distress she continues have some lower abdominal discomfort, her diarrhea is better today, stool for C. difficile still pending, we will monitor for that, if the stool is negative. Patient can be discharged home and follow-up with us as an outpatient next week she was taken off antibiotics as her urinary tract infection is negative, igor ent is to go back on her doxycycline 100 mg orally twice a day for life. Discharge diagnoses: 1. Abdominal pain with suprapubic tenderness and left lower quadrant tenderness along with thickened bladder wall on the CT scan negative for UTI. 2. Status post incision and drainage of left groin infected surgical wound followed by multiple surgical intervention with plastic surgery with resultant bilateral open wounds to both groin that appears to be clean at this point in time. 3. Coronary artery disease with recent stent of the RCA due to recent in-stent restenosis. 4. Diabetes mellitus type 2 uncontrolled. 5. Mixed hyperlipidemia. 6. Chronic DVT and PEs. 7. Hypertension and hypertensive cardiovascular disease. 8. Gastroesophageal reflux disease 9. Diabetic neuropathy. 10. Generalized anxiety disorder 11. Depression. 12. PAD status post right above-knee amputation. Patient Condition at Discharge: Stable Plan - Discharge Summary Discharge Rx Participant: No New Discharge Prescriptions: No Action Ergocalciferol (Vitamin D2) [Drisdol (50,000 Iu)] 1,250 mcg PO GUERRERO INSULIN ASPART (NovoLOG) [NovoLOG (formulary)] See Protocol SQ AC-TID Gabapentin [Neurontin] 400 mg PO BID Insulin Glargine,Hum.rec.anlog [Lantus Solostar Pen] 40 units SQ HS Dapagliflozin Propanediol [Farxiga] 10 mg PO DAILY sitaGLIPtin [Januvia] 100 mg PO DAILY INSULIN ASPART (NovoLOG) [NovoLOG (formulary)] 12 unit SQ AC-TID Ferrous Sulfate [Feosol] 325 mg PO BID Potassium Chloride ER [K-Dur 20] 20 meq PO DAILY HYDROcodone/APAP 7.5-325MG [Joy 7.5-325] 1 tab PO Q8H PRN PRN Reason: Pain Doxycycline Hyclate 100 mg PO BID Apixaban [Eliquis] 5 mg PO BID DULoxetine HCL [Cymbalta] 60 mg PO DAILY Metoprolol Tartrate [Lopressor] 25 mg PO BID Spironolactone 25 mg PO DAILY Atorvastatin Calcium [Lipitor] 80 mg PO DAILY Pantoprazole [Protonix] 40 mg PO DAILY Pioglitazone [Actos] 30 mg PO DAILY Magnesium Oxide [Magnesium] 500 mg PO DAILY Cyclobenzaprine [Flexeril] 5 mg PO HS PRN PRN Reason: Muscle Spasm Melatonin 3 mg PO HS PRN PRN Reason: Insomnia Discharge Medication List Ergocalciferol (Vitamin D2) [Drisdol (50,000 Iu)] 1,250 mcg PO GUERRERO 04/01/23 [History] Apixaban [Eliquis] 5 mg PO BID 05/20/23 [History] DULoxetine HCL [Cymbalta] 60 mg PO DAILY 07/04/23 [History] INSULIN ASPART (NovoLOG) [NovoLOG (formulary)] See Protocol SQ AC-TID 07/04/23 [History] Metoprolol Tartrate [Lopressor] 25 mg PO BID 07/04/23 [History] Spironolactone 25 mg PO DAILY 08/09/23 [History] Atorvastatin Calcium [Lipitor] 80 mg PO DAILY 09/16/23 [History] Gabapentin [Neurontin] 400 mg PO BID 10/22/23 [History] Dapagliflozin Propanediol [Farxiga] 10 mg PO DAILY 02/27/24 [History] Insulin Glargine,Hum.rec.anlog [Lantus Solostar Pen] 40 units SQ HS 02/27/24 [History] Pantoprazole [Protonix] 40 mg PO DAILY 02/27/24 [History] Pioglitazone [Actos] 30 mg PO DAILY 10/05/24 [History] Cyclobenzaprine [Flexeril] 5 mg PO HS PRN 01/22/25 [History] Doxycycline Hyclate 100 mg PO BID 01/22/25 [History] Ferrous Sulfate [Feosol] 325 mg PO BID 01/22/25 [History] HYDROcodone/APAP 7.5-325MG [Joy 7.5-325] 1 tab PO Q8H PRN 01/22/25 [History] INSULIN ASPART (NovoLOG) [NovoLOG (formulary)] 12 unit SQ AC-TID 01/22/25 [History] Magnesium Oxide [Magnesium] 500 mg PO DAILY 01/22/25 [History] Melatonin 3 mg PO HS PRN 01/22/25 [History] Potassium Chloride ER [K-Dur 20] 20 meq PO DAILY 01/22/25 [History] sitaGLIPtin [Januvia] 100 mg PO DAILY 01/22/25 [History] Follow up Appointment(s)/Referral(s): Tramaine Tejeda MD [Primary Care Provider] - 1-2 days [facility] [NON-STAFF] - As Needed
[2025-01-25 16:26] LABS: Glucose,Whole Blood 67 mg/dL (70-110)
[2025-01-25 16:45] LABS: Glucose,Whole Blood 60 mg/dL (70-110)
[2025-01-25 17:02] LABS: Glucose,Whole Blood 87 mg/dL (70-110)
[2025-01-25] MEDS: CHOLESTYRAMINE RESIN 4 GM PACKET PO SCH (20:14)
[2025-01-25 20:37] LABS: Glucose,Whole Blood 148 mg/dL (70-110)
[2025-01-26 06:15] LABS: Glucose,Whole Blood 115 mg/dL (70-110)
[2025-01-26 08:10] VITALS: BP 117/73; PULSE 64; RESP 18; TEMP 97.3
[2025-01-26 11:47] LABS: Glucose,Whole Blood 169 mg/dL (70-110)
--- NOTE | 2025-01-26 14:52 | P.PN ---
Subjective Progress Note Date: 01/25/25 Principal diagnosis: Reason for follow-up is abdominal pain question of UTI Patient is a 64-year-old female with a past medical history significant for Coronary Artery Disease (CAD), Cancer, CVA/TIA, Diabetes Mellitus, Deep Vein Thrombosis (DVT), GERD/Reflux, Memory Impairment, Osteoarthritis (OA), Pulmonary Embolus (PE), Vascular Disorder, did have abdominal pain positive UA concerning for UTI. On today's evaluation that is 01/25/2025, patient has been afebrile, patient is breathing comfortably and is currently on room air, patient denies having any chest pain and cough, patient denies nausea vomiting complaining of diarrhea and lower abdominal discomfort. Patient did have a white count of 6.73, creatinine is 1.1 Objective - Vital Signs Vital signs: Vital Signs Temp 98.2 F 01/25/25 07:00 Pulse 61 01/25/25 07:00 Resp 18 01/25/25 07:00 BP 108/70 01/25/25 07:00 Pulse Ox 100 01/25/25 07:00 FiO2 Intake & Output 01/24/25 01/25/25 01/25/25 18:59 06:59 18:59 Output Total 402 Balance -402 Output: Urine 400 Stool 2 Other: Voiding Method External Catheter External Catheter External Catheter # Voids 600 # Bowel Movements 2 - Exam GENERAL DESCRIPTION: Middle-age female lying in bed in no distress RESPIRATORY SYSTEM: Unlabored breathing , decreased breath sounds at bases HEART: S1 S2 regular rate and rhythm , ABDOMEN: Soft , no tenderness - Labs CBC & Chem 7: 01/25/25 03:33 01/25/25 03:33 Labs: Abnormal Lab Results - Last 24 Hours (Table) 01/24/25 01/24/25 01/24/25 Range/Units 11:57 16:12 20:38 RBC (4.10-5.20) X 10*6/uL Hgb (12.0-15.0) g/dL MCHC (32.0-37.0) g/dL RDW (11.5-14.5) % MPV (9.5-12.2) FL Est GFR (CKD-EPI) (>=60) BUN/Creatinine Ratio (12.00-20.00) Ratio POC Glucose (mg/dL) 63 L 189 H 227 H (70-110) mg/dL Calcium (8.7-10.3) mg/dL AST (13-35) U/L Alkaline Phosphatase (41-126) U/L Total Protein (6.2-8.2) g/dL Albumin (3.8-4.9) g/dL Albumin/Globulin Ratio (1.60-3.17) Ratio 01/25/25 01/25/25 Range/Units 03:33 03:33 RBC 4.02 L (4.10-5.20) X 10*6/uL Hgb 11.2 L (12.0-15.0) g/dL MCHC 29.2 L (32.0-37.0) g/dL RDW 16.5 H (11.5-14.5) % MPV 12.5 H (9.5-12.2) FL Est GFR (CKD-EPI) 56 L (>=60) BUN/Creatinine Ratio 11.09 L (12.00-20.00) Ratio POC Glucose (mg/dL) (70-110) mg/dL Calcium 8.1 L (8.7-10.3) mg/dL AST 53 H (13-35) U/L Alkaline Phosphatase 205 H (41-126) U/L Total Protein 5.6 L (6.2-8.2) g/dL Albumin 2.4 L (3.8-4.9) g/dL Albumin/Globulin Ratio 0.75 L (1.60-3.17) Ratio Assessment and Plan (1) Urinary tract infection Status: Acute Code(s): N39.0 - URINARY TRACT INFECTION, SITE NOT SPECIFIED SNOMED Code(s): 41950264 (2) Allergy to vancomycin Status: Acute Code(s): Z88.1 - ALLERGY STATUS TO OTHER ANTIBIOTIC AGENTS SNOMED Code(s): 510723055 Plan: 1patient to the hospital with lower abdominal/suprapubic pain she did have symptoms of urinary pressure significantly positive UA with evidence of a bladder wall thickening on the CT highly suspicious for cystitis/UTI responsible for her symptom of abdominal pain with evidence of any bowel wall thickening or deformity changes as reported on the CT and would likely need for further enteric gram-negative pathogen. 2patient did have bilateral groin area wounds with no evidence of any cellulitis or wound infection clinically local wound care with the dry Aquacel silver dressing change daily. 3she did have improvement in her urinary symptoms and urine culture have been negative we did have CT of abdominal pelvis that was negative for acute abnormality. 4patient has developed diarrhea possible antibiotic associated her Rocephin has been discontinued stool for C. difficile apparently collected yesterday no results available will be ordered again Questran needed for symptomatic relief Dictation was produced using [employer] dictation software. please excuse any grammatical, word or spelling errors. Time with Patient: Less than 30
--- NOTE | 2025-01-26 14:52 | P.PN ---
Subjective Progress Note Date: 01/26/25 Principal diagnosis: Reason for follow-up is abdominal pain question of UTI Patient is a 64-year-old female with a past medical history significant for Coronary Artery Disease (CAD), Cancer, CVA/TIA, Diabetes Mellitus, Deep Vein Thrombosis (DVT), GERD/Reflux, Memory Impairment, Osteoarthritis (OA), Pulmonary Embolus (PE), Vascular Disorder, did have abdominal pain positive UA concerning for UTI. On today's evaluation that is 01/26/2025, Patient is afebrile this morning patient denies having any chest pain shortness of breath or cough, the patient is currently on room air, patient complaining of some lower abdominal discomfort but no nausea vomiting and did have resolution of her diarrhea. No new lab has been obtained today except a lipase level of 33 Objective - Vital Signs Vital signs: Vital Signs Temp 97.3 F L 01/26/25 07:39 Pulse 64 01/26/25 07:39 Resp 18 01/26/25 07:39 BP 117/73 01/26/25 07:39 Pulse Ox 96 01/26/25 07:39 FiO2 Intake & Output 01/25/25 01/26/25 01/26/25 18:59 06:59 18:59 Output Total 450 1600 1100 Balance -450 -1600 -1100 Output: Urine 450 1600 1100 Other: Voiding Method External Catheter External Catheter - Exam GENERAL DESCRIPTION: Middle-age female lying in bed in no distress RESPIRATORY SYSTEM: Unlabored breathing , decreased breath sounds at bases HEART: S1 S2 regular rate and rhythm , ABDOMEN: Soft , no tenderness - Labs CBC & Chem 7: 01/25/25 03:33 01/25/25 03:33 Labs: Abnormal Lab Results - Last 24 Hours (Table) 01/25/25 01/25/25 01/25/25 Range/Units 16:25 16:43 20:36 POC Glucose (mg/dL) 67 L 60 L 148 H (70-110) mg/dL 01/26/25 01/26/25 Range/Units 06:13 11:40 POC Glucose (mg/dL) 115 H 169 H (70-110) mg/dL Assessment and Plan (1) Urinary tract infection Status: Acute Code(s): N39.0 - URINARY TRACT INFECTION, SITE NOT SPECIFIED SNOMED Code(s): 73631918 (2) Allergy to vancomycin Status: Acute Code(s): Z88.1 - ALLERGY STATUS TO OTHER ANTIBIOTIC AGENTS SNOMED Code(s): 469849342 Plan: 1patient to the hospital with lower abdominal/suprapubic pain she did have symptoms of urinary pressure significantly positive UA with evidence of a bladder wall thickening on the CT highly suspicious for cystitis/UTI responsible for her symptom of abdominal pain with evidence of any bowel wall thickening or deformity changes as reported on the CT and would likely need for further enteric gram-negative pathogen. 2patient did have bilateral groin area wounds with no evidence of any cellulitis or wound infection clinically local wound care with the dry Aquacel silver dressing change daily. 3she did have improvement in her urinary symptoms and urine culture have been negative we did have CT of abdominal pelvis that was negative for acute abnormality. 4patient did have resolution of her diarrhea the patient afebrile culture have been negative no need for antibiotic therapy on discharge Dictation was produced using [employer] dictation software. please excuse any grammatical, word or spelling errors. Time with Patient: Less than 30
== END 2025-01-26 14:32 | disposition home health service (06) ==
LOC: EC 17:59 → 6NMEDSUR 22:34 → 4SSUR 01-22 01:14
PROVIDERS: ADMIT Internal Medicine; ATTEND Internal Medicine
DX: R10.2 Pelvic and perineal pain (principal); N39.0 Urinary tract infection, site not specified; E11.649 Type 2 diabetes mellitus with hypoglycemia without coma; E78.2 Mixed hyperlipidemia; I25.10 Atherosclerotic heart disease of native coronary artery without angina pectoris; E11.51 Type 2 diabetes mellitus with diabetic peripheral angiopathy without gangrene; J44.9 Chronic obstructive pulmonary disease, unspecified; K21.9 Gastro-esophageal reflux disease without esophagitis; E11.40 Type 2 diabetes mellitus with diabetic neuropathy, unspecified; I11.9 Hypertensive heart disease without heart failure; F41.1 Generalized anxiety disorder; F33.9 Major depressive disorder, recurrent, unspecified; G89.4 Chronic pain syndrome; I69.354 Hemiplegia and hemiparesis following cerebral infarction affecting left non-dominant side; Z85.828 Personal history of other malignant neoplasm of skin; Z86.711 Personal history of pulmonary embolism; Z86.718 Personal history of other venous thrombosis and embolism; Z87.891 Personal history of nicotine dependence; Z89.411 Acquired absence of right great toe; Z89.611 Acquired absence of right leg above knee; Z95.5 Presence of coronary angioplasty implant and graft; Z95.820 Peripheral vascular angioplasty status with implants and grafts; Z79.01 Long term (current) use of anticoagulants; Z79.4 Long term (current) use of insulin; Z79.82 Long term (current) use of aspirin; Z79.84 Long term (current) use of oral hypoglycemic drugs; Z79.899 Other long term (current) drug therapy; Z88.1 Allergy status to other antibiotic agents
CPT/HCPCS: 96376 ×6; 96366 ×2; 96361; 96365; 96375; 99285; 36415; 93005; 80053 ×4; 82150; 83605; 83690 ×2; 84484; 85025 ×4; 85610; 85730; 81001; 87086; 83036; 71045; 71275; 74176; 74174; G0378 ×7; J2270 ×7; J2405; J0696 ×3; Q9967; J2470